=== PATIENT | male | born 1980 | race African-American/Black ===

== ENCOUNTER 2017-04-15 15:27 | Outpatient (CLI) | payer MEDICARE, OTHER ==
[~2017-04-15] VITALS: Ht 177.8 cm; Wt 97.1 kg
[2017-04-15] MEDS ORDERED: LIDOCAINE 1% / SOD BICARB 8.4% 20 ML VIAL. IJ ONE (15:52)
[2017-04-15] MEDS ORDERED: IOHEXOL 300 MG/ML 100ML VIAL. ONE (16:01)
[2017-04-15] MEDS ORDERED: RENAL VITE (16:04)
[2017-04-15] MEDS ORDERED: INSU100I13 SQ (16:04)
[2017-04-15] MEDS ORDERED: amlodipine (16:04)
[2017-04-15] MEDS ORDERED: calcitriol (16:04)
[2017-04-15] MEDS ORDERED: sensipar (16:04)
[2017-04-15] MEDS ORDERED: vitamin D (16:04)
[2017-04-15] MEDS ORDERED: ferrous sulfate (16:04)
[2017-04-15] MEDS ORDERED: renvela (16:04)
[2017-04-15] MEDS ORDERED: INSU100V31 SQ (16:04)
[2017-04-15] MEDS ORDERED: simvastatin (16:04)
[2017-04-15] MEDS ORDERED: lisinopril (16:04)
[2017-04-15] MEDS ORDERED: clonidine (16:04)
[2017-04-15] MEDS ORDERED: IOHEXOL 300 MG/ML 100ML VIAL. IJ ONE (16:15)
--- NOTE | 2017-04-15 16:35 | RAD ---
Wire manipulation of peritoneal dialysis catheter 04/15/2017 Indication: Nonfunctional catheter Discussion: The patient was brought to the fluoroscopy suite and placed in the supine position. A Timeout procedure was performed. Fluoroscopic evaluation demonstrates peritoneal dialysis catheter coiled in the pelvis. A stiff Glidewire was advanced through the catheter without difficulty. A small amount of the contrast and saline was instilled through the catheter which appear to flow freely from the catheter throughout the peritoneum without loculation. All wires were removed. Sterile dressing was applied. Fluoroscopy time 1.8 minutes Dose area product: 7 Gycm2 Impression: Grossly unremarkable fluoroscopic appearance of peritoneal dialysis catheter
== END 2017-04-15 16:20 | disposition home or self-care (01) ==
LOC: INTRAD 15:27
PROVIDERS: ATTEND Internal Medicine Nephrology
DX: T85.611A Breakdown (mechanical) of intraperitoneal dialysis catheter, initial encounter (principal); Y84.8 Other medical procedures as the cause of abnormal reaction of the patient, or of later complication, without mention of misadventure at the time of the procedure; E78.00 Pure hypercholesterolemia, unspecified; K21.9 Gastro-esophageal reflux disease without esophagitis; Z99.2 Dependence on renal dialysis; E11.22 Type 2 diabetes mellitus with diabetic chronic kidney disease; I12.9 Hypertensive chronic kidney disease with stage 1 through stage 4 chronic kidney disease, or unspecified chronic kidney disease; N18.9 Chronic kidney disease, unspecified; Z88.0 Allergy status to penicillin
CPT/HCPCS: 49400; 74190; C1769; Q9967

== ENCOUNTER → 2017-06-18 | Outpatient (CLI) | payer MEDICARE, OTHER ==
[~2017-06-18] MED LIST: INSU100I13 SQ; INSU100V31 SQ; RENAL VITE; amlodipine; calcitriol; clonidine; ferrous sulfate; lisinopril; renvela; sensipar; simvastatin; vitamin D
== END | disposition home or self-care (01) ==
LOC: LAB 13:15
PROVIDERS: ATTEND Internal Medicine Nephrology
DX: E87.5 Hyperkalemia (principal)
CPT/HCPCS: 36415; 84132

== ENCOUNTER 2017-07-02 07:08 | Outpatient (CLI) | payer MEDICARE ==
[~2017-07-02] VITALS: Ht 177.8 cm; Wt 94.3 kg
[2017-07-02 07:30] VITALS: BP 146/89
[2017-07-02] MEDS ORDERED: IOHEXOL 300 MG/ML 50 ML VIAL. ONE (08:28)
[2017-07-02] MEDS ORDERED: IOHEXOL 300 MG/ML 50 ML VIAL. INT CAT ONE (09:00)
[2017-07-02] MEDS ORDERED: CONTRAST GIVEN MC PRN (09:00)
--- NOTE | 2017-07-02 09:04 | PDOC ---
BRIEF OPERATIVE NOTE Pre-Op Diagnosis Non-functioning PD catheter Post-Op Diagnosis Functioning PD Catheter Procedure Performed PD catheter check and manipulation Surgeon Delano Findings PD Catheter well positioned in the pelvis. Long fibrin sheath aspirated resulting in resumption of excellent flow. Wire manipulation unremarkable. Complications No immediate MARLYN RODRIGUEZ MD Jul 02, 2017 09:04
[2017-07-02 09:25] VITALS: BP 140/93
--- NOTE | 2017-07-02 12:03 | RAD ---
Procedure: Fluoroscopic guided peritoneal dialysis catheter injection and manipulation Clinical Indication: 37-year-old male with poor flows from his 4-year-old peritoneal dialysis catheter. Sedation: None Antibiotics: None Exposure: Kerma-Area Product: 12 Gycm2 Contrast: 10 cc of Isovue-300 contrast media Sterility: All elements of maximal sterile barrier technique including the use of a cap, mask, sterile gown, sterile gloves, large sterile sheet, appropriate hand hygiene, and 2% chlorhexidine for cutaneous antisepsis (or acceptable alternative antiseptic per current guidelines) were followed for this procedure. Consent: The procedure was explained in its entirety to the patient or the patients designated inbound sales representative by a member of the treatment team, including a discussion of the risks, benefits and commonly accepted alternatives to the procedure, as well as the expected consequences of no therapy whatsoever. Discussion of the risks included, but was not limited to, those that are most frequent and those that are rare but possibly severe or life-threatening, as well as the possibility of unforeseen complications. Technique and Findings: Following informed consent, the patient was prepped and draped in usual sterile fashion. The peritoneal dialysis catheter was interrogated under fluoroscopy and found to be situated deep within the pelvis. The catheter was then accessed sterilely, and was found to allow free injection of saline. Aspiration was performed returning a long linear fibrin plug. Once this plug was removed, aspiration was brisk. Contrast was then injected under fluoroscopy and seen to flow freely within the peritoneum. Aspiration remained free. A Glidewire advantage was then advanced under fluoroscopic guidance through the peritoneal dialysis catheter into the peritoneum to attempt to deflect the tip, however this was not particularly successful. Nevertheless, following removal of the wire, aspiration flush remain brisk. Complications: No immediate Impression: 1. Fibrin plug limiting flow within the peritoneal dialysis catheter. This was successfully extracted resulting in buddhism of excellent flow. 2. Peritoneal dialysis catheter situated appropriately in the deep pelvis. Attempts to deflect the catheter were unsuccessful. Peritoneal dialysis catheter is suitable for use.
== END 2017-07-02 11:00 | disposition home or self-care (01) ==
LOC: INTRAD 07:08
PROVIDERS: ATTEND Internal Medicine Nephrology
DX: T85.611A Breakdown (mechanical) of intraperitoneal dialysis catheter, initial encounter (principal); Y84.8 Other medical procedures as the cause of abnormal reaction of the patient, or of later complication, without mention of misadventure at the time of the procedure; E78.00 Pure hypercholesterolemia, unspecified; I12.9 Hypertensive chronic kidney disease with stage 1 through stage 4 chronic kidney disease, or unspecified chronic kidney disease; E11.22 Type 2 diabetes mellitus with diabetic chronic kidney disease; N18.9 Chronic kidney disease, unspecified; Z88.0 Allergy status to penicillin
CPT/HCPCS: 49400; 74190; 82962; C1713; Q9967

== ENCOUNTER 2017-08-03 11:59 | Emergency (ER) | payer MEDICARE ==
[~2017-08-03] VITALS: Ht 177.8 cm; Wt 94.3 kg
[2017-08-03 12:51] VITALS: BP 110/68
[2017-08-03] MEDS ORDERED: HYDROcodone/APAP 5/325MG 1 TAB TABLET PO ONE (13:45)
[2017-08-03] MEDS ORDERED: HYDR-971 PO (14:00)
[2017-08-03] MEDS ORDERED: CLIN150C14 PO (14:00)
--- NOTE | 2017-08-03 14:01 | PHYS DOC ---
Past Medical History Past Medical History: Diabetes-Type II, Hypertension, Renal Failure Additional Past Medical Histor: HEMODIALYSIS SINCE 2013 Past Surgical History: No Surgical History Alcohol Use: None Drug Use: None Adult General Chief Complaint Chief Complaint: DENTAL PROBLEM HPI HPI Patient is a 37 year old male and sister presents today with a right gum dental pain and swelling that began 2 days ago. Patient denies any fever or trismus. Review of Systems Review of Systems Constitutional: Denies fever or chills [] HENT: Right gum dental pain and swelling Musculoskeletal: Denies back pain or joint pain [] Integument: Denies rash or skin lesions [] Neurologic: Denies headache, focal weakness or sensory changes [] Current Medications Current Medications Current Medications Medications (Trade) Dose Ordered Sig/Afua Start Time Stop Time Status Last Admin Dose Admin Acetaminophen/ Hydrocodone Bitart (Lortab 5/325) 2 tab 1X ONCE 08/03/17 13:45 08/03/17 13:46 DC Allergies Allergies Allergies Coded Allergies Type Severity Reaction Last Updated Verified Penicillins Allergy Mild Nausea 04/15/17 Yes Physical Exam Physical Exam Constitutional: Well developed, well nourished, no acute distress, non-toxic appearance. [] HENT: Normocephalic, atraumatic, bilateral external ears normal, oropharynx moist, no oral exudates, nose normal. [] Mild swelling noted on the right cheek consistent with a dental abscess. Scattered dental caries noted. Skin: Warm, dry, no erythema, no rash. [] Back: No tenderness, no CVA tenderness. [] Extremities: No tenderness, no cyanosis, no clubbing, ROM intact, no edema. [] Neurologic: Alert and oriented X 3, normal motor function, normal sensory function, no focal deficits noted. [] Psychologic: Affect normal, judgement normal, mood normal. [] Current Patient Data Vital Signs Vital Signs Date Time Temp Pulse Resp B/P (MAP) Pulse Ox O2 Delivery O2 Flow Rate FiO2 08/03/17 12:51 97.9 87 20 97 Room Air 97.9 EKG EKG [] Radiology/Procedures Radiology/Procedures [] Course & Med Decision Making Course & Med Decision Making Pertinent Labs and Imaging studies reviewed. (See chart for details) Patient has a dental abscess. Will be discharged with clindamycin for 10 days. Follow-up with a dentist in 1-2 weeks. Dragon Disclaimer Dragon Disclaimer This electronic medical record was generated, in whole or in part, using a voice recognition dictation system. Departure Departure Impression: Primary Impression: Dental abscess Disposition: 01 HOME, SELF-CARE Condition: STABLE Referrals: GINO BLANCO MD (PCP) follow up with a dentist in one week Patient Instructions: Dental Abscess Additional Instructions: You were seen for a dental abscess. Ensure you complete your antibiotics. Follow -up with her dentist in the next 1-2 weeks. Scripts Hydrocodone/Apap 5-325 (NORCO 5-325 TABLET) 1 Each Tablet 1 TAB PO Q6-8HRS Y for PAIN, #10 TAB Prov: LAZARUS REYES APRN 08/03/17 Clindamycin Hcl (CLINDAMYCIN HCL) 150 Mg Capsule 3 CAP PO TID, #90 CAP Prov: LAZARUS REYES APRN 08/03/17 LAZARUS REYES APRN Aug 03, 2017 14:01
== END 2017-08-03 14:13 | disposition home or self-care (01) ==
LOC: ER 11:59
DX: K04.7 Periapical abscess without sinus (principal); E11.9 Type 2 diabetes mellitus without complications; I12.0 Hypertensive chronic kidney disease with stage 5 chronic kidney disease or end stage renal disease; N18.6 End stage renal disease; Z99.2 Dependence on renal dialysis
CPT/HCPCS: 99283

== ENCOUNTER → 2017-10-11 | Outpatient (CLI) | payer MEDICARE ==
[~2017-10-11] MED LIST changes: -INSU100I13 SQ; -INSU100V31 SQ; +IOHEXOL 300 MG/ML 100ML VIAL.; -RENAL VITE; -amlodipine; -calcitriol; -clonidine; -ferrous sulfate; -lisinopril; -renvela; -sensipar; -simvastatin; -vitamin D
[2017-10-11] MEDS: IOHEXOL 300 MG/ML 100ML VIAL. INT CAT (11:08)
== END | disposition home or self-care (01) ==
LOC: INTRAD 10:03
DX: T85.611A Breakdown (mechanical) of intraperitoneal dialysis catheter, initial encounter (principal); Y83.8 Other surgical procedures as the cause of abnormal reaction of the patient, or of later complication, without mention of misadventure at the time of the procedure; Y92.9 Unspecified place or not applicable; Z88.0 Allergy status to penicillin; E78.00 Pure hypercholesterolemia, unspecified; I10 Essential (primary) hypertension; E11.9 Type 2 diabetes mellitus without complications; K21.9 Gastro-esophageal reflux disease without esophagitis
CPT/HCPCS: 49400; 74190; C1769; Q9967

== ENCOUNTER 2017-11-20 21:48 | Emergency (ER) | payer MEDICARE ==
[2017-11-20 22:53] LABS: ANION GAP 12 (6-14); BLOOD UREA NITROGEN 93 mg/dL (8-26); CALCIUM 7.4 mg/dL (8.5-10.1); CARBON DIOXIDE 25 mmol/L (21-32); CHLORIDE 100 mmol/L (98-107); CREATININE 14.6 mg/dL (0.7-1.3); GFR 4.6; GLUCOSE 293 mg/dL (70-99); POTASSIUM 5.5 mmol/L (3.5-5.1); SODIUM 137 mmol/L (136-145)
[2017-11-20 23:04] LABS: TROPONIN BY ISTAT 0.01 ng/ml (<0.08)
[2017-11-20] MEDS: SODIUM POLYSTYRENE SULFONATE 15 GM/60 ML ORAL.SUSP. PO ×2 (23:39)
== END 2017-11-20 23:58 | disposition home or self-care (01) ==
LOC: ER 23:58
DX: E87.5 Hyperkalemia (principal); I12.9 Hypertensive chronic kidney disease with stage 1 through stage 4 chronic kidney disease, or unspecified chronic kidney disease; E11.22 Type 2 diabetes mellitus with diabetic chronic kidney disease; N18.9 Chronic kidney disease, unspecified; Z99.2 Dependence on renal dialysis; Z88.0 Allergy status to penicillin
CPT/HCPCS: 36415; 71045; 80048; 84484; 93005; 99285-25

== ENCOUNTER 2018-01-10 04:59 | Inpatient (IN) | payer MEDICARE ==
[2018-01-10] MEDS: IV NORMAL SALINE 1000ML BAG 1,000 ML IV ×2 (05:45→15:27)
[2018-01-10] MEDS: MORPHINE SULFATE 4 MG/ML DISP.SYRIN. IV ×4 (05:45→15:29)
[2018-01-10 06:08] LABS: ADD MAN DIFF? YES; BASO # 0.1 x10^3/uL (0.0-0.2); BASO % 0 % (0-3); EOS # 0.3 x10^3/uL (0.0-0.7); EOS % 2 % (0-3); HEMATOCRIT 30.1 % (39.0-53.0); HEMOGLOBIN 9.7 g/dL (13.0-17.5); LYMPH # 1.5 x10^3/uL (1.0-4.8); LYMPH % 10 % (24-48); MEAN CORPUSCULAR HEMOGLOBIN 28 pg (25-35); MEAN CORPUSCULAR HGB CONC 32 g/dL (31-37); MEAN CORPUSCULAR VOLUME 87 fL (79-100); MONO # 0.6 x10^3/uL (0.0-1.1); MONO % 4 % (0-9); NEUT # 12.7 x10^3uL (1.8-7.7); NEUT % 83 % (31-73); PLATELET COUNT 320 x10^3/uL (140-400); RED BLOOD COUNT 3.48 x10^6/uL (4.30-5.70); RED CELL DISTRIBUTION WIDTH 15.6 % (11.5-14.5); WHITE BLOOD COUNT 15.2 x10^3/uL (4.0-11.0)
[2018-01-10 06:14] LABS: ANION GAP 14 (6-14); BLOOD UREA NITROGEN 85 mg/dL (8-26); BUN/CREATININE RATIO 5 (6-20); CALCIUM 9.3 mg/dL (8.5-10.1); CARBON DIOXIDE 30 mmol/L (21-32); CHLORIDE 99 mmol/L (98-107); CREATININE 17.5 mg/dL (0.7-1.3); GFR 3.8; GLUCOSE 68 mg/dL (70-99); POTASSIUM 4.3 mmol/L (3.5-5.1); SODIUM 143 mmol/L (136-145)
[2018-01-10] MEDS ORDERED: CONTRAST GIVEN MC (06:15)
[2018-01-10 06:22] LABS: ALBUMIN 3.8 g/dL (3.4-5.0); ALBUMIN/GLOBULIN RATIO 0.8 (1.0-1.7); ALK PHOS 225 U/L (46-116); ALT (SGPT) 34 U/L (16-63); AST (SGOT) 21 U/L (15-37); LIPASE 187 U/L (73-393); TOTAL BILIRUBIN 0.4 mg/dL (0.2-1.0); TOTAL PROTEIN 8.3 g/dL (6.4-8.2)
[2018-01-10] MEDS: IOHEXOL 300 MG/ML 100ML VIAL. IV (06:29)
[2018-01-10] MEDS: HALOPERIDOL LACTATE 5 MG/ML VIAL. IVP (06:30)
[2018-01-10] MEDS ORDERED: DIALYSIS PATIENT. MC (07:00)
[2018-01-10] MEDS ORDERED: ACETAMINOPHEN 325 MG TABLET. PO (07:00)
[2018-01-10] MEDS ORDERED: ONDANSETRON PF 4 MG/2 ML VIAL. IV ×2 (07:00→10:30)
[2018-01-10] MEDS: fentaNYL PF VIAL 100 MCG/2 ML VIAL IV (07:14)
[2018-01-10 08:06] LABS: POC GLUCOSE 64 mg/dL (70-99)
[2018-01-10 09:32] LABS: % EOS 2 % (0-5); % LYMPHS 8 % (24-48); % MONOS 4 % (0-10); % SEGS 86 % (35-66); PLT ESTIMATE ADEQUATE (ADEQUATE)
[2018-01-10 09:35] LABS: ANISOCYTOSIS SLIGHT
[2018-01-10 09:36] LABS: OVALOCYTES FEW; SCHISTOCYTES OCC; TARGET CELLS FEW
[2018-01-10] MEDS ORDERED: DEXTROSE 50% 25 GM / 50ML DISP.SYRIN. IV (10:15)
[2018-01-10] MEDS ORDERED: DOCUSATE SODIUM 100 MG CAPSULE. PO (10:30)
[2018-01-10] MEDS: CALCITRIOL 0.25 MCG CAPSULE. PO (10:30)
[2018-01-10] MEDS: LOSARTAN POTASSIUM 50 MG TABLET. PO (10:30)
[2018-01-10] MEDS: cloNIDine HCL 0.2 MG TABLET PO ×2 (10:30→23:48)
[2018-01-10] MEDS: FOLIC/VIT B COMP W-C (RENAL) TABLET. PO (10:30)
[2018-01-10] MEDS: FUROSEMIDE 80 MG TABLET. PO ×2 (10:30→14:00)
[2018-01-10] MEDS ORDERED: traMADol 50 MG TABLET PO (10:30)
[2018-01-10] MEDS: CINACALCET HCL 30 MG TABLET PO (10:30)
[2018-01-10] MEDS: INSULIN ASPART 300 UNITS/3 ML INSULN.PEN SQ ×3 (12:00→23:53)
[2018-01-10] MEDS: SEVELAMER CARBONATE 800 MG TABLET. PO ×2 (12:00→17:00)
[2018-01-10] MEDS: hydrALAZINE 20 MG/ML VIAL. IVP ×2 (12:37→20:27)
[2018-01-10] MEDS ORDERED: HEPARIN for IV BOLUS 10,000 UNIT/10 ML VIAL. (12:46)
[2018-01-10] MEDS ORDERED: LIDOCAINE WITH 8.4% SOD BICARB 3 ML DISP.SYRIN. (12:46)
[2018-01-10 12:51] LABS: POC GLUCOSE 86 mg/dL (70-99)
[2018-01-10] MEDS: LIDOCAINE WITH 8.4% SOD BICARB 3 ML DISP.SYRIN. INJ (13:25)
[2018-01-10] MEDS: HEPARIN PF for SUB-Q USE 5,000 UNIT/0.5 ML VIAL. SQ ×2 (14:00→20:36)
[2018-01-10 14:18] LABS: POC GLUCOSE 129 mg/dL (70-99)
[2018-01-10 17:03] LABS: POC GLUCOSE 148 mg/dL (70-99)
[2018-01-10 19:59] LABS: POC GLUCOSE 159 mg/dL (70-99)
[2018-01-10] MEDS: FAMOTIDINE 20 MG/2 ML VIAL IVP (20:26)
[2018-01-10] MEDS: DARBEPOETIN ALFA 60 MCG/0.3 ML DISP.SYRIN. SQ (20:29)
[2018-01-10] MEDS ORDERED: INSULIN GLARGINE HUM REC ANLOG 32 UNIT SQ (21:00)
[2018-01-10] MEDS: SIMVASTATIN 20 MG TABLET PO (21:00)
[2018-01-10] MEDS: LACTOBACILLUS RHAMNOSUS GG 1 CAPSULE. PO (21:00)
[2018-01-10 21:38] LABS: LACTIC ACID 1.1 mmol/L (0.4-2.0)
[2018-01-10 23:33] LABS: POC GLUCOSE 282 mg/dL (70-99)
[2018-01-11 01:03] LABS: POC GLUCOSE 319 mg/dL (70-99)
[2018-01-11] MEDS: INSULIN DETEMIR 300 UNITS/3 ML INSULN.PEN. SQ ×2 (02:42→20:47)
[2018-01-11] MEDS: INSULIN ASPART 300 UNITS/3 ML INSULN.PEN SQ ×4 (02:43→17:14)
[2018-01-11] MEDS: IV NORMAL SALINE 1000ML BAG 1,000 ML IV ×2 (04:11→06:00)
[2018-01-11 04:58] LABS: ADD MAN DIFF? NO
[2018-01-11 05:08] LABS: BASO # 0.1 x10^3/uL (0.0-0.2); BASO % 0 % (0-3); EOS # 0.3 x10^3/uL (0.0-0.7); EOS % 2 % (0-3); HEMOGLOBIN 9.6 g/dL (13.0-17.5); LYMPH # 1.2 x10^3/uL (1.0-4.8); LYMPH % 7 % (24-48); MEAN CORPUSCULAR HEMOGLOBIN 28 pg (25-35); MEAN CORPUSCULAR HGB CONC 32 g/dL (31-37); MEAN CORPUSCULAR VOLUME 88 fL (79-100); MONO # 1.2 x10^3/uL (0.0-1.1); MONO % 8 % (0-9); NEUT # 13.7 x10^3uL (1.8-7.7); NEUT % 83 % (31-73); PLATELET COUNT 312 x10^3/uL (140-400); RED BLOOD COUNT 3.42 x10^6/uL (4.30-5.70); RED CELL DISTRIBUTION WIDTH 15.7 % (11.5-14.5); WHITE BLOOD COUNT 16.6 x10^3/uL (4.0-11.0)
[2018-01-11 05:29] LABS: ANION GAP 13 (6-14); BLOOD UREA NITROGEN 85 mg/dL (8-26); CALCIUM 9.7 mg/dL (8.5-10.1); CARBON DIOXIDE 27 mmol/L (21-32); CHLORIDE 102 mmol/L (98-107); CREATININE 17.6 mg/dL (0.7-1.3); GFR 3.7; GLUCOSE 164 mg/dL (70-99); SODIUM 142 mmol/L (136-145)
[2018-01-11] MEDS: HEPARIN PF for SUB-Q USE 5,000 UNIT/0.5 ML VIAL. SQ ×3 (05:47→22:42)
[2018-01-11 05:50] LABS: POTASSIUM 6.3 mmol/L (3.5-5.1)
[2018-01-11 07:35] LABS: POC GLUCOSE 164 mg/dL (70-99)
[2018-01-11] MEDS: PIPERACILLIN/TAZOBACTAM 2.25 GM in IV NORMAL SALINE 100ML 100 ML IV ×3 (08:00→22:36)
[2018-01-11] MEDS ORDERED: PIP/TAZO PER PHARMACY MC (08:00)
[2018-01-11] MEDS: PIPERACILLIN/TAZOBACTAM 2.25 GM in IV NORMAL SALINE 50ML 50 ML IV (08:00)
[2018-01-11] MEDS: SEVELAMER CARBONATE 800 MG TABLET. PO ×3 (08:00→17:09)
[2018-01-11] MEDS: DEXTROSE 50% 25 GM / 50ML DISP.SYRIN. IV (08:22)
[2018-01-11] MEDS: SODIUM BICARB ADULT 8.4% 50 MEQ/50 ML DISP.SYRIN. IV (08:22)
[2018-01-11] MEDS: LACTOBACILLUS RHAMNOSUS GG 1 CAPSULE. PO ×2 (09:00→22:40)
[2018-01-11] MEDS: cloNIDine HCL 0.2 MG TABLET PO ×2 (09:00→20:43)
[2018-01-11] MEDS ORDERED: cefTRIAXone IV Push 1 GM VIAL. IVP (09:00)
[2018-01-11] MEDS: FUROSEMIDE 80 MG TABLET. PO ×2 (09:00→14:16)
[2018-01-11] MEDS: LOSARTAN POTASSIUM 50 MG TABLET. PO (09:00)
[2018-01-11] MEDS: CINACALCET HCL 30 MG TABLET PO (09:00)
[2018-01-11] MEDS: FOLIC/VIT B COMP W-C (RENAL) TABLET. PO (09:00)
[2018-01-11] MEDS: CALCITRIOL 0.25 MCG CAPSULE. PO (09:00)
[2018-01-11] MEDS: INSULIN REGULAR 100 UNIT/ML 10ML VIAL. IV (09:15)
[2018-01-11] MEDS ORDERED: PIPERACILLIN/TAZOBACTAM 3.375 GM in IV NORMAL SALINE 50ML 50 ML IV (12:00)
[2018-01-11] MEDS: ACETAMINOPHEN 325 MG TABLET. PO (14:17)
[2018-01-11] MEDS: amLODIPine BESYLATE 10 MG TABLET PO (14:21)
[2018-01-11 16:32] LABS: POC GLUCOSE 277 mg/dL (70-99)
[2018-01-11] MEDS: VANCOMYCIN 2 GM in IV DEXTROSE 5 %-0.45 % NACL 500 ML IV (17:09)
[2018-01-11 19:54] LABS: BF CLARITY CLOUDY; BF COLOR RED; BF MON % 21 %; BF RBC COUNT 26742 /cmm; BF SOURCE PERIT DIALYSATE; BF WBC COUNT 1070 /cmm
[2018-01-11 19:56] LABS: BF PMN % 78 %
[2018-01-11 19:57] LABS: BF OTHER % 1 %
[2018-01-11] MEDS: VANCOMYCIN PER PHARMACY MC (20:20)
[2018-01-11 20:40] LABS: POC GLUCOSE 229 mg/dL (70-99)
[2018-01-11] MEDS ORDERED: INSULIN DETEMIR 300 UNITS/3 ML INSULN.PEN. SQ (21:00)
[2018-01-11] MEDS: SIMVASTATIN 20 MG TABLET PO (22:39)
[2018-01-12] MEDS: PIPERACILLIN/TAZOBACTAM 2.25 GM in IV NORMAL SALINE 100ML 100 ML IV ×3 (05:17→21:48)
[2018-01-12] MEDS: HEPARIN PF for SUB-Q USE 5,000 UNIT/0.5 ML VIAL. SQ ×3 (05:25→21:48)
[2018-01-12 07:41] LABS: POC GLUCOSE 121 mg/dL (70-99)
[2018-01-12] MEDS: INSULIN ASPART 300 UNITS/3 ML INSULN.PEN SQ ×6 (08:00→22:34)
[2018-01-12] MEDS: SEVELAMER CARBONATE 800 MG TABLET. PO ×3 (08:01→17:20)
[2018-01-12] MEDS: CALCITRIOL 0.25 MCG CAPSULE. PO (08:01)
[2018-01-12] MEDS: LOSARTAN POTASSIUM 50 MG TABLET. PO (08:01)
[2018-01-12] MEDS: LACTOBACILLUS RHAMNOSUS GG 1 CAPSULE. PO ×2 (08:02→21:34)
[2018-01-12] MEDS: cloNIDine HCL 0.2 MG TABLET PO ×2 (08:02→21:34)
[2018-01-12] MEDS: CINACALCET HCL 30 MG TABLET PO (08:02)
[2018-01-12] MEDS: amLODIPine BESYLATE 10 MG TABLET PO (08:03)
[2018-01-12] MEDS: FOLIC/VIT B COMP W-C (RENAL) TABLET. PO (08:03)
[2018-01-12] MEDS: FUROSEMIDE 80 MG TABLET. PO ×2 (08:03→14:00)
[2018-01-12 08:44] LABS: ADD MAN DIFF? NO
[2018-01-12 08:46] LABS: BASO # 0.1 x10^3/uL (0.0-0.2); BASO % 1 % (0-3); EOS # 0.7 x10^3/uL (0.0-0.7); EOS % 6 % (0-3); HEMOGLOBIN 8.9 g/dL (13.0-17.5); LYMPH # 1.3 x10^3/uL (1.0-4.8); LYMPH % 12 % (24-48); MEAN CORPUSCULAR HEMOGLOBIN 28 pg (25-35); MEAN CORPUSCULAR HGB CONC 32 g/dL (31-37); MEAN CORPUSCULAR VOLUME 88 fL (79-100); MONO % 9 % (0-9); NEUT # 8.1 x10^3uL (1.8-7.7); NEUT % 72 % (31-73); PLATELET COUNT 269 x10^3/uL (140-400); RED BLOOD COUNT 3.18 x10^6/uL (4.30-5.70); RED CELL DISTRIBUTION WIDTH 15.1 % (11.5-14.5); WHITE BLOOD COUNT 11.2 x10^3/uL (4.0-11.0)
[2018-01-12 08:56] LABS: ANION GAP 8 (6-14); BLOOD UREA NITROGEN 46 mg/dL (8-26); CALCIUM 9.7 mg/dL (8.5-10.1); CARBON DIOXIDE 30 mmol/L (21-32); CHLORIDE 104 mmol/L (98-107); CREATININE 12.1 mg/dL (0.7-1.3); GFR 5.8; GLUCOSE 220 mg/dL (70-99); POTASSIUM 5.7 mmol/L (3.5-5.1); SODIUM 142 mmol/L (136-145)
[2018-01-12] MEDS ORDERED: MAGNESIUM SULFATE 2GM 50 ML IV (09:15)
[2018-01-12] MEDS ORDERED: IV NORMAL SALINE 1000ML BAG 1,000 ML IV ×2 (10:35)
[2018-01-12] MEDS ORDERED: diphenhydrAMINE 50 MG/ML VIAL IV ×2 (10:45)
[2018-01-12] MEDS ORDERED: LABETALOL 20 MG/4 ML DISP.SYRIN. IVP (10:45)
[2018-01-12] MEDS ORDERED: ACETAMINOPHEN 500 MG TABLET PO (10:45)
[2018-01-12] MEDS ORDERED: DIALYSIS PATIENT. MC (10:45)
[2018-01-12] MEDS ORDERED: cloNIDine HCL 0.1 MG TABLET PO (10:45)
[2018-01-12] MEDS ORDERED: ALBUMIN HUMAN 25% 200 ML IV (10:45)
[2018-01-12 11:21] LABS: POC GLUCOSE 243 mg/dL (70-99)
[2018-01-12] MEDS: VANCOMYCIN PER PHARMACY MC (16:22)
[2018-01-12] MEDS: ACETAMINOPHEN 325 MG TABLET. PO (16:55)
[2018-01-12 17:05] LABS: POC GLUCOSE 119 mg/dL (70-99)
[2018-01-12] MEDS ORDERED: DARBEPOETIN ALFA 60 MCG/0.3 ML DISP.SYRIN. SQ (21:00)
[2018-01-12 21:04] LABS: POC GLUCOSE 332 mg/dL (70-99)
[2018-01-12] MEDS: SIMVASTATIN 20 MG TABLET PO (21:33)
[2018-01-12] MEDS: INSULIN DETEMIR 300 UNITS/3 ML INSULN.PEN. SQ (21:48)
[2018-01-13 05:20] LABS: ADD MAN DIFF? NO
[2018-01-13 05:33] LABS: BASO % 0 % (0-3); EOS # 0.6 x10^3/uL (0.0-0.7); EOS % 7 % (0-3); HEMATOCRIT 23.3 % (39.0-53.0); HEMOGLOBIN 7.7 g/dL (13.0-17.5); LYMPH % 13 % (24-48); MEAN CORPUSCULAR HEMOGLOBIN 29 pg (25-35); MEAN CORPUSCULAR HGB CONC 33 g/dL (31-37); MEAN CORPUSCULAR VOLUME 88 fL (79-100); MONO # 0.7 x10^3/uL (0.0-1.1); MONO % 9 % (0-9); NEUT # 5.7 x10^3uL (1.8-7.7); NEUT % 71 % (31-73); PLATELET COUNT 233 x10^3/uL (140-400); RED BLOOD COUNT 2.66 x10^6/uL (4.30-5.70)
[2018-01-13] MEDS: VANCOMYCIN RANDOM LEVEL. MC (06:00)
[2018-01-13 06:03] LABS: ALBUMIN 2.7 g/dL (3.4-5.0); ANION GAP 8 (6-14); BLOOD UREA NITROGEN 26 mg/dL (8-26); CARBON DIOXIDE 29 mmol/L (21-32); CHLORIDE 98 mmol/L (98-107); CREATININE 8.2 mg/dL (0.7-1.3); GLUCOSE 366 mg/dL (70-99); PHOSPHORUS 4.8 mg/dL (2.6-4.7); POTASSIUM 4.6 mmol/L (3.5-5.1); SODIUM 135 mmol/L (136-145)
[2018-01-13] MEDS: PIPERACILLIN/TAZOBACTAM 2.25 GM in IV NORMAL SALINE 100ML 100 ML IV (06:21)
[2018-01-13] MEDS: HEPARIN PF for SUB-Q USE 5,000 UNIT/0.5 ML VIAL. SQ ×3 (06:27→22:00)
[2018-01-13 07:53] LABS: POC GLUCOSE 318 mg/dL (70-99)
[2018-01-13] MEDS: CALCITRIOL 0.25 MCG CAPSULE. PO (09:01)
[2018-01-13] MEDS: amLODIPine BESYLATE 10 MG TABLET PO (09:02)
[2018-01-13] MEDS: FUROSEMIDE 80 MG TABLET. PO ×2 (09:02→15:58)
[2018-01-13] MEDS: FOLIC/VIT B COMP W-C (RENAL) TABLET. PO (09:02)
[2018-01-13] MEDS: SEVELAMER CARBONATE 800 MG TABLET. PO ×3 (09:02→17:17)
[2018-01-13] MEDS: LOSARTAN POTASSIUM 50 MG TABLET. PO (09:02)
[2018-01-13] MEDS: LACTOBACILLUS RHAMNOSUS GG 1 CAPSULE. PO ×2 (09:03→21:05)
[2018-01-13] MEDS: CINACALCET HCL 30 MG TABLET PO (09:03)
[2018-01-13] MEDS: cloNIDine HCL 0.2 MG TABLET PO ×2 (09:10→21:06)
[2018-01-13] MEDS: INSULIN ASPART 300 UNITS/3 ML INSULN.PEN SQ ×6 (10:50→17:22)
[2018-01-13 11:47] LABS: POC GLUCOSE 366 mg/dL (70-99)
[2018-01-13] MEDS: PANTOPRAZOLE 40 MG TABLET.DR. PO (12:01)
[2018-01-13] MEDS: VANCOMYCIN PER PHARMACY MC (14:36)
[2018-01-13 15:03] LABS: POC GLUCOSE 163 mg/dL (70-99)
[2018-01-13] MEDS: PIPERACILLIN/TAZOBACTAM 2.25 GM in IV NORMAL SALINE 50ML 50 ML IV ×2 (15:59→21:56)
[2018-01-13 20:23] LABS: POC GLUCOSE 343 mg/dL (70-99)
[2018-01-13] MEDS: SIMVASTATIN 20 MG TABLET PO (21:06)
[2018-01-13] MEDS: INSULIN DETEMIR 300 UNITS/3 ML INSULN.PEN. SQ (21:14)
[2018-01-14 05:28] LABS: ALBUMIN 2.7 g/dL (3.4-5.0); ANION GAP 9 (6-14); BLOOD UREA NITROGEN 37 mg/dL (8-26); CALCIUM 8.8 mg/dL (8.5-10.1); CARBON DIOXIDE 27 mmol/L (21-32); CHLORIDE 101 mmol/L (98-107); CREATININE 10.7 mg/dL (0.7-1.3); GFR 6.6; GLUCOSE 236 mg/dL (70-99); MAGNESIUM 2.3 mg/dL (1.8-2.4); PHOSPHORUS 5.8 mg/dL (2.6-4.7); POTASSIUM 4.9 mmol/L (3.5-5.1); SODIUM 137 mmol/L (136-145)
[2018-01-14] MEDS: PIPERACILLIN/TAZOBACTAM 2.25 GM in IV NORMAL SALINE 50ML 50 ML IV ×3 (06:03→22:00)
[2018-01-14] MEDS: HEPARIN PF for SUB-Q USE 5,000 UNIT/0.5 ML VIAL. SQ ×3 (06:09→21:39)
[2018-01-14] MEDS: INSULIN ASPART 300 UNITS/3 ML INSULN.PEN SQ ×7 (08:00→22:02)
[2018-01-14] MEDS: LACTOBACILLUS RHAMNOSUS GG 1 CAPSULE. PO ×2 (09:00→16:01)
[2018-01-14] MEDS: cloNIDine HCL 0.2 MG TABLET PO ×2 (09:00→16:02)
[2018-01-14] MEDS: FUROSEMIDE 80 MG TABLET. PO ×2 (09:00→16:08)
[2018-01-14] MEDS: SEVELAMER CARBONATE 800 MG TABLET. PO ×4 (09:18→21:52)
[2018-01-14] MEDS: PANTOPRAZOLE 40 MG TABLET.DR. PO (09:29)
[2018-01-14] MEDS: LOSARTAN POTASSIUM 50 MG TABLET. PO (09:30)
[2018-01-14] MEDS: FOLIC/VIT B COMP W-C (RENAL) TABLET. PO (09:30)
[2018-01-14] MEDS: CALCITRIOL 0.25 MCG CAPSULE. PO (09:31)
[2018-01-14] MEDS: amLODIPine BESYLATE 10 MG TABLET PO (09:31)
[2018-01-14] MEDS: CINACALCET HCL 30 MG TABLET PO (09:34)
[2018-01-14] MEDS: POLYETHYLENE GLYCOL 3350 17 GM PACKET. PO (10:23)
[2018-01-14] MEDS: ACETAMINOPHEN 325 MG TABLET. PO (10:23)
[2018-01-14] MEDS ORDERED: DIALYSIS PATIENT. MC ×2 (10:45)
[2018-01-14] MEDS ORDERED: ALBUMIN HUMAN 25% 200 ML IV (11:00)
[2018-01-14] MEDS ORDERED: IV NORMAL SALINE 1000ML BAG 1,000 ML IV ×2 (11:00)
[2018-01-14 12:17] LABS: POC GLUCOSE 153 mg/dL (70-99)
[2018-01-14] MEDS: VANCOMYCIN PER PHARMACY MC (14:02)
[2018-01-14 20:46] LABS: POC GLUCOSE 441 mg/dL (70-99)
[2018-01-14] MEDS: SIMVASTATIN 20 MG TABLET PO (21:52)
[2018-01-14] MEDS: INSULIN DETEMIR 300 UNITS/3 ML INSULN.PEN. SQ (22:02)
[2018-01-15 03:55] LABS: ALBUMIN 2.7 g/dL (3.4-5.0); ANION GAP 7 (6-14); BLOOD UREA NITROGEN 31 mg/dL (8-26); CALCIUM 8.3 mg/dL (8.5-10.1); CARBON DIOXIDE 32 mmol/L (21-32); CHLORIDE 100 mmol/L (98-107); CREATININE 8.4 mg/dL (0.7-1.3); GFR 8.8; GLUCOSE 312 mg/dL (70-99); MAGNESIUM 2.2 mg/dL (1.8-2.4); PHOSPHORUS 4.9 mg/dL (2.6-4.7); POTASSIUM 4.7 mmol/L (3.5-5.1); SODIUM 139 mmol/L (136-145)
[2018-01-15] MEDS: PIPERACILLIN/TAZOBACTAM 2.25 GM in IV NORMAL SALINE 50ML 50 ML IV (06:30)
[2018-01-15] MEDS: PANTOPRAZOLE 40 MG TABLET.DR. PO (06:30)
[2018-01-15] MEDS: HEPARIN PF for SUB-Q USE 5,000 UNIT/0.5 ML VIAL. SQ ×3 (06:37→22:00)
[2018-01-15 08:20] LABS: POC GLUCOSE 148 mg/dL (70-99)
[2018-01-15] MEDS: CINACALCET HCL 30 MG TABLET PO (08:25)
[2018-01-15] MEDS: FUROSEMIDE 80 MG TABLET. PO ×2 (08:25→12:21)
[2018-01-15] MEDS: CALCITRIOL 0.25 MCG CAPSULE. PO (08:25)
[2018-01-15] MEDS: LOSARTAN POTASSIUM 50 MG TABLET. PO (08:29)
[2018-01-15] MEDS: LACTOBACILLUS RHAMNOSUS GG 1 CAPSULE. PO ×2 (08:32→21:41)
[2018-01-15] MEDS: SEVELAMER CARBONATE 800 MG TABLET. PO ×4 (08:32→22:26)
[2018-01-15] MEDS: amLODIPine BESYLATE 10 MG TABLET PO (08:33)
[2018-01-15] MEDS: cloNIDine HCL 0.2 MG TABLET PO ×2 (08:33→21:41)
[2018-01-15] MEDS: FOLIC/VIT B COMP W-C (RENAL) TABLET. PO (08:34)
[2018-01-15] MEDS: INSULIN ASPART 300 UNITS/3 ML INSULN.PEN SQ ×7 (08:41→22:36)
[2018-01-15] MEDS: POLYETHYLENE GLYCOL 3350 17 GM PACKET. PO (08:42)
[2018-01-15 11:56] LABS: POC GLUCOSE 106 mg/dL (70-99)
[2018-01-15 17:25] LABS: POC GLUCOSE 98 mg/dL (70-99)
[2018-01-15 21:15] LABS: POC GLUCOSE 168 mg/dL (70-99)
[2018-01-15] MEDS: CEFPODOXIME PROXETIL 100 MG TABLET. PO (21:41)
[2018-01-15] MEDS: SIMVASTATIN 20 MG TABLET PO (21:41)
[2018-01-15] MEDS: ACETAMINOPHEN 325 MG TABLET. PO (21:41)
[2018-01-15] MEDS: INSULIN DETEMIR 300 UNITS/3 ML INSULN.PEN. SQ (22:29)
[2018-01-16 04:51] LABS: ALBUMIN 2.7 g/dL (3.4-5.0); ANION GAP 10 (6-14); BLOOD UREA NITROGEN 42 mg/dL (8-26); CALCIUM 8.7 mg/dL (8.5-10.1); CARBON DIOXIDE 28 mmol/L (21-32); CHLORIDE 99 mmol/L (98-107); CREATININE 10.6 mg/dL (0.7-1.3); GFR 6.7; GLUCOSE 227 mg/dL (70-99); MAGNESIUM 2.1 mg/dL (1.8-2.4); POTASSIUM 4.1 mmol/L (3.5-5.1); SODIUM 137 mmol/L (136-145)
[2018-01-16] MEDS: HEPARIN PF for SUB-Q USE 5,000 UNIT/0.5 ML VIAL. SQ ×4 (06:00→20:30)
[2018-01-16 06:40] LABS: POC GLUCOSE 192 mg/dL (70-99)
[2018-01-16] MEDS: INSULIN ASPART 300 UNITS/3 ML INSULN.PEN SQ ×7 (08:00→20:45)
[2018-01-16] MEDS: SEVELAMER CARBONATE 800 MG TABLET. PO ×3 (08:00→17:07)
[2018-01-16] MEDS: POLYETHYLENE GLYCOL 3350 17 GM PACKET. PO (09:00)
[2018-01-16] MEDS: FUROSEMIDE 80 MG TABLET. PO ×2 (09:00→16:59)
[2018-01-16] MEDS: BARIUM SULFATE 60% 355 ML SUSP PO (12:00)
[2018-01-16] MEDS: PANTOPRAZOLE 40 MG TABLET.DR. PO (16:55)
[2018-01-16] MEDS: cloNIDine HCL 0.2 MG TABLET PO ×2 (16:56→20:32)
[2018-01-16] MEDS: FOLIC/VIT B COMP W-C (RENAL) TABLET. PO (16:57)
[2018-01-16] MEDS: amLODIPine BESYLATE 10 MG TABLET PO (16:57)
[2018-01-16] MEDS: CINACALCET HCL 30 MG TABLET PO (16:59)
[2018-01-16] MEDS: CALCITRIOL 0.25 MCG CAPSULE. PO (16:59)
[2018-01-16] MEDS: LOSARTAN POTASSIUM 50 MG TABLET. PO (16:59)
[2018-01-16] MEDS: LACTOBACILLUS RHAMNOSUS GG 1 CAPSULE. PO ×2 (17:00→20:32)
[2018-01-16] MEDS: CEFPODOXIME PROXETIL 100 MG TABLET. PO ×2 (17:01→20:32)
[2018-01-16 17:07] LABS: POC GLUCOSE 308 mg/dL (70-99)
[2018-01-16 17:07] LABS: POC GLUCOSE 276 mg/dL (70-99)
[2018-01-16] MEDS: SIMVASTATIN 20 MG TABLET PO (20:30)
[2018-01-16] MEDS: INSULIN DETEMIR 300 UNITS/3 ML INSULN.PEN. SQ (20:39)
[2018-01-16 21:06] LABS: POC GLUCOSE 350 mg/dL (70-99)
[2018-01-17 04:28] LABS: ALBUMIN 2.9 g/dL (3.4-5.0); ANION GAP 12 (6-14); BLOOD UREA NITROGEN 46 mg/dL (8-26); CALCIUM 8.6 mg/dL (8.5-10.1); CARBON DIOXIDE 27 mmol/L (21-32); CHLORIDE 101 mmol/L (98-107); CREATININE 11.8 mg/dL (0.7-1.3); GFR 5.9; GLUCOSE 107 mg/dL (70-99); MAGNESIUM 2.3 mg/dL (1.8-2.4); PHOSPHORUS 5.3 mg/dL (2.6-4.7); POTASSIUM 4.2 mmol/L (3.5-5.1); SODIUM 140 mmol/L (136-145)
[2018-01-17 07:47] LABS: POC GLUCOSE 91 mg/dL (70-99)
[2018-01-17] MEDS: INSULIN ASPART 300 UNITS/3 ML INSULN.PEN SQ ×5 (08:19→12:04)
[2018-01-17] MEDS: LACTOBACILLUS RHAMNOSUS GG 1 CAPSULE. PO (09:26)
[2018-01-17] MEDS: PANTOPRAZOLE 40 MG TABLET.DR. PO (09:26)
[2018-01-17] MEDS: CEFPODOXIME PROXETIL 100 MG TABLET. PO (09:26)
[2018-01-17] MEDS: FOLIC/VIT B COMP W-C (RENAL) TABLET. PO (09:27)
[2018-01-17] MEDS: CINACALCET HCL 30 MG TABLET PO (09:27)
[2018-01-17] MEDS: CALCITRIOL 0.25 MCG CAPSULE. PO (09:27)
[2018-01-17] MEDS: SEVELAMER CARBONATE 800 MG TABLET. PO ×2 (09:27→11:57)
[2018-01-17] MEDS: cloNIDine HCL 0.2 MG TABLET PO (09:27)
[2018-01-17] MEDS: amLODIPine BESYLATE 10 MG TABLET PO (09:27)
[2018-01-17] MEDS: FUROSEMIDE 80 MG TABLET. PO (09:27)
[2018-01-17] MEDS: LOSARTAN POTASSIUM 50 MG TABLET. PO (09:29)
[2018-01-17] MEDS: POLYETHYLENE GLYCOL 3350 17 GM PACKET. PO (09:33)
[2018-01-17] MEDS: HEPARIN SODIUM 10,000 UNIT/10 ML VIAL. IRR (09:35)
[2018-01-17 11:21] LABS: POC GLUCOSE 125 mg/dL (70-99)
== END 2018-01-17 14:00 | disposition home or self-care (01) | DRG 871 ==
LOC: ER 04:59 → 4 NORTH 06:50
PROC: 02H633Z Insertion of Infusion Device into Right Atrium, Percutaneous Approach (ICD-10-PCS; principal; 2018-01-10)
PROC: B21 Imaging, Heart, Fluoroscopy (ICD-10-PCS; 2018-01-10)
PROC: 5A1D70Z Performance of Urinary Filtration, Intermittent, Less than 6 Hours Per Day (ICD-10-PCS; 2018-01-12)
PROC: 5A1D70Z Performance of Urinary Filtration, Intermittent, Less than 6 Hours Per Day (ICD-10-PCS; 2018-01-14)
DX: A41.9 Sepsis, unspecified organism (principal); K65.2 Spontaneous bacterial peritonitis; K56.609 Unspecified intestinal obstruction, unspecified as to partial versus complete obstruction; E11.22 Type 2 diabetes mellitus with diabetic chronic kidney disease; I12.0 Hypertensive chronic kidney disease with stage 5 chronic kidney disease or end stage renal disease; E87.5 Hyperkalemia; R13.10 Dysphagia, unspecified; N18.6 End stage renal disease; E11.65 Type 2 diabetes mellitus with hyperglycemia; E66.9 Obesity, unspecified; E78.5 Hyperlipidemia, unspecified; G47.33 Obstructive sleep apnea (adult) (pediatric); E21.3 Hyperparathyroidism, unspecified; K21.0 Gastro-esophageal reflux disease with esophagitis; K66.0 Peritoneal adhesions (postprocedural) (postinfection); Z79.4 Long term (current) use of insulin; Z87.11 Personal history of peptic ulcer disease; Z88.0 Allergy status to penicillin; Z99.2 Dependence on renal dialysis
CPT/HCPCS: 36415; 36556; 74177; 74250; 76937; 77001; 80048; 80053; 80069; 80202; 82962; 83605; 83690; 83735; 85007; 85025; 87071; 87075; 87186; 87205; 89050; 93005; 96374; 96375; 99291; 99291-25; C1892; J0360; J0690; J0881; J1630; J1815; J2060; J2270; J2543; J3010; J3370; J3490; J7030; J7042; Q9967; S0028

== ENCOUNTER 2018-11-24 12:20 | Outpatient (CLI) | payer MEDICARE ==
[~2018-11-24] VITALS: Ht 177.8 cm; Wt 95.3 kg
[~2018-11-24 12:20] MED LIST changes: +AMLO10TA8 PO; +CALC0.25 PO; +CEFP200T PO; +CHOL500045 PO; +CINA60TA PO; +CLIN150C14 PO; +CLON0.2T PO; +FURO80TA3 PO; +HYDR-3164 PO; +INSU100I13 SQ; +INSU100V31 SQ; -IOHEXOL 300 MG/ML 100ML VIAL.; +LISI-130 PO; +LOSA100T14 PO; +RENAL VITE; +SEVE800T9 PO; +SIMV20TA3 PO; +VIT1TABL71 PO; +amlodipine; +calcitriol; +clonidine; +ferrous sulfate; +lisinopril; +renvela; +sensipar; +simvastatin; +vitamin D
[2018-11-24] MEDS ORDERED: IOHEXOL 300 MG/ML 100ML VIAL. ONE (12:33)
[2018-11-24 12:38] VITALS: BP 176/101
[2018-11-24] MEDS ORDERED: CARV25TA2 PO (12:42)
[2018-11-24] MEDS ORDERED: POLY17PO29 PO (12:49)
[2018-11-24] MEDS ORDERED: DOCU-109 PO (12:49)
[2018-11-24] MEDS ORDERED: SENN-80 PO (12:49)
[2018-11-24] MEDS ORDERED: IOHEXOL 300 MG/ML 100ML VIAL. IART ONE (13:00)
[2018-11-24] MEDS ORDERED: CONTRAST GIVEN. MC PRN (13:15)
--- NOTE | 2018-11-24 14:00 | NUR ---
Discharge Note: KATRIN STEVENS Discharge instructions and discharge home medications reviewed with patient including follow up and s/s requiring further attention and a copy given. All questions have been answered and understanding verbalized. The following instructions and handouts were given: peritoneal dialysis Patient discharged to home with spouse.
--- NOTE | 2018-11-25 13:53 | RAD ---
Fluoroscopic evaluation of peritoneal dialysis catheter. 11/24/2018. Indication: Catheter slow to drain. Occasional fibrotic material noted with aspiration. Discussion: The risks and benefits of the procedure were discussed the patient. Informed consent was obtained. A timeout procedure was performed. The anterior cervical draped using sterile barrier technique. Fluoroscopic evaluation demonstrates expected position of the pre-existing peritoneal dialysis catheter with the tip coiled in the pelvis. The catheter was found to flush normally. Contrast was administered which freely distributed throughout the pelvic peritoneum without gross loculation. However, guidewire could not be advanced through the distal end of the catheter. The distal end of the catheter appears to be occluded. The catheter would not uncoil the despite advancement multiple stiff type guidewires. Findings raise concern for possible intrapelvic adhesions. Despite multiple attempts, the distal catheter could not be mobilized. Aspiration remains sluggish. Fluoroscopy time: 9.4 MIN Dose area product: 81 Gycm2 Impression: Sluggish aspiration with inability to mobilize the distal end of the catheter. Findings raise concern for possible intrapelvic adhesions.
== END 2018-11-24 14:00 | disposition home or self-care (01) ==
LOC: INTRAD 12:20
PROVIDERS: ATTEND Internal Medicine Nephrology
DX: T85.611A Breakdown (mechanical) of intraperitoneal dialysis catheter, initial encounter (principal); Z88.0 Allergy status to penicillin; Y83.8 Other surgical procedures as the cause of abnormal reaction of the patient, or of later complication, without mention of misadventure at the time of the procedure; Y92.89 Other specified places as the place of occurrence of the external cause
CPT/HCPCS: 49400; 74190; C1713; C1769; Q9967

== ENCOUNTER 2018-11-29 17:17 | Inpatient (IN) | payer MEDICARE ==
[~2018-11-29] VITALS: Ht 177.8 cm; Wt 89.6 kg
[~2018-11-29 17:17] MED LIST changes: +CARV25TA2 PO; +DOCU-109 PO; +POLY17PO29 PO; +SENN-80 PO
[2018-11-29] MEDS ORDERED: PIPERACILLIN/TAZOBACTAM 3.375 GM in IV NORMAL SALINE 50ML 50 ML IV ONE (18:15)
[2018-11-29] MEDS ORDERED: VANCOMYCIN PER PHARMACY MC ONE (18:15)
[2018-11-29] MEDS ORDERED: ONDANSETRON PF 4 MG/2 ML VIAL. IV ONE (18:15)
--- NOTE | 2018-11-29 18:27 | PHYS DOC ---
Past Medical History Past Medical History: Diabetes-Type II, Hypertension Additional Past Medical Histor: HEMODIALYSIS SINCE 2012; Peritoneal dialysis Past Surgical History: Other Additional Past Surgical Histo: CARPAL TUNNEL Alcohol Use: None Drug Use: None Adult General Chief Complaint Chief Complaint: FEVER HPI HPI Patient is a 38 year old male with a history of hypertension, diabetes type 2, end-stage renal disease on hemodialysis Saturday, Saturday, Saturday, last dialyzed yesterday, who presents to the ED today to be evaluated for fever, nausea and vomiting. Symptoms began this morning. Patient denies any coughing or congestion. Patient states he used to get peritoneal dialysis but a couple days ago they switched him to hemodialysis because his peritoneal dialysis was not working. He had a dialysis catheter placed 11/26/2018. Patient denies any chest pain. He states he was admitted at [facility] sometime last week for nausea and vomiting and discharged early this week. Review of Systems Review of Systems Constitutional: Reports fever Eyes: Denies change in visual acuity, redness, or eye pain [] HENT: Denies nasal congestion or sore throat [] Respiratory: Denies cough or shortness of breath [] Cardiovascular: No additional information not addressed in HPI [] GI: Reports nausea and vomiting. Denies abdominal pain, bloody stools or diarrhea [] : Denies dysuria or hematuria [] Musculoskeletal: Denies back pain or joint pain [] Integument: Denies rash or skin lesions [] Neurologic: Denies headache, focal weakness or sensory changes [] All other systems were reviewed and found to be within normal limits, except as documented in this note. Current Medications Current Medications Current Medications Medications (Trade) Dose Ordered Sig/Afua Start Time Stop Time Status Last Admin Dose Admin Ondansetron HCl (Zofran) 4 mg 1X ONCE 11/29/18 18:15 11/29/18 18:23 DC 11/29/18 18:43 4 MG Piperacillin Sod/ Tazobactam Sod 3.375 gm/Sodium Chloride 50 ml @ 100 mls/hr 1X ONCE 11/29/18 18:15 11/29/18 18:44 DC 11/29/18 18:45 100 MLS/HR Vancomycin HCl (Vanco Per Pharmacy) 1 each 1X ONCE 11/29/18 18:15 11/29/18 18:24 DC Vancomycin HCl 2 gm/Sodium Chloride 500 ml @ 250 mls/hr 1X ONCE 11/29/18 19:00 11/29/18 20:59 11/29/18 18:46 250 MLS/HR Allergies Allergies Allergies Coded Allergies Type Severity Reaction Last Updated Verified Penicillins Adverse Reaction Mild Nausea 12/23/17 Yes Physical Exam Physical Exam Constitutional: Ill appearing patient in no acute distress HENT: Normocephalic, atraumatic, bilateral external ears normal, oropharynx moist, no oral exudates, nose normal. [] Eyes: PERRLA, EOMI, conjunctiva normal, no discharge. [] Neck: Normal range of motion, no tenderness, supple, no stridor. [] Cardiovascular:Heart rate regular rhythm, no murmur [] Lungs & Thorax: Bilateral breath sounds clear to auscultation [] Abdomen: Abdomen with peritoneal dialysis catheter. Bowel sounds normal, soft, no tenderness, no masses, no pulsatile masses. [] Skin: Warm, dry, no erythema, no rash. Right upper chest with hemodialysis catheter. No redness around the catheter site. Back: No tenderness, no CVA tenderness. [] Extremities: No tenderness, no cyanosis, no clubbing, ROM intact, +2 bilateral lower extremity edema Neurologic: Alert and oriented X 3, normal motor function, normal sensory function, no focal deficits noted. [] Psychologic: Affect normal, judgement normal, mood normal. [] Current Patient Data Vital Signs Vital Signs Date Time Temp Pulse Resp B/P (MAP) Pulse Ox O2 Delivery O2 Flow Rate FiO2 11/29/18 18:30 98 16 140/74 (96) 100 Nasal Cannula 2.0 11/29/18 17:30 102.4 102.4 Lab Values Laboratory Tests Test 11/29/18 18:17 11/29/18 18:46 White Blood Count 22.6 x10^3/uL (4.0-11.0) H Red Blood Count 2.13 x10^6/uL (4.30-5.70) L Hemoglobin 5.9 g/dL (13.0-17.5) *L Hematocrit 18.5 % (39.0-53.0) *L Mean Corpuscular Volume 87 fL (79-100) Mean Corpuscular Hemoglobin 28 pg (25-35) Mean Corpuscular Hemoglobin Concent 32 g/dL (31-37) Red Cell Distribution Width 18.5 % (11.5-14.5) H Platelet Count 294 x10^3/uL (140-400) Neutrophils (%) (Auto) 90 % (31-73) H Lymphocytes (%) (Auto) 4 % (24-48) L Monocytes (%) (Auto) 6 % (0-9) Eosinophils (%) (Auto) 0 % (0-3) Basophils (%) (Auto) 1 % (0-3) Neutrophils # (Auto) 20.2 x10^3uL (1.8-7.7) H Lymphocytes # (Auto) 0.8 x10^3/uL (1.0-4.8) L Monocytes # (Auto) 1.4 x10^3/uL (0.0-1.1) H Eosinophils # (Auto) 0.0 x10^3/uL (0.0-0.7) Basophils # (Auto) 0.1 x10^3/uL (0.0-0.2) Segmented Neutrophils % 70 % (35-66) H Band Neutrophils % 22 % (0-9) H Lymphocytes % 4 % (24-48) L Monocytes % 4 % (0-10) Toxic Vacuolation Slight Platelet Estimate Adequate (ADEQUATE) Polychromasia Slight Anisocytosis Slight Microcytosis Slight Macrocytosis Slight Sodium Level 138 mmol/L (136-145) Potassium Level 4.5 mmol/L (3.5-5.1) Chloride Level 98 mmol/L (98-107) Carbon Dioxide Level 25 mmol/L (21-32) Anion Gap 15 (6-14) H Blood Urea Nitrogen 56 mg/dL (8-26) H Creatinine 15.4 mg/dL (0.7-1.3) H Estimated GFR (Cockcroft-Gault) 4.3 BUN/Creatinine Ratio 4 (6-20) L Glucose Level 184 mg/dL (70-99) H Lactic Acid Level 1.0 mmol/L (0.4-2.0) Calcium Level 9.6 mg/dL (8.5-10.1) Total Bilirubin 0.5 mg/dL (0.2-1.0) Aspartate Amino Transferase (AST) 20 U/L (15-37) Alanine Aminotransferase (ALT) 30 U/L (16-63) Alkaline Phosphatase 119 U/L (46-116) H Troponin I Quantitative 0.067 ng/mL (0.000-0.055) [id number]-[id number]-Type Natriuretic Peptide > 31196 pg/mL (0-124) H Total Protein 6.1 g/dL (6.4-8.2) L Albumin 2.7 g/dL (3.4-5.0) L Albumin/Globulin Ratio 0.8 (1.0-1.7) L Procalcitonin 53.22 ng/mL (0.00-0.10) H Influenza Type A Antigen Negative (NEGATIVE) Influenza Type B Antigen Negative (NEGATIVE) Laboratory Tests 11/29/18 18:17 Laboratory Tests 11/29/18 18:17 EKG EKG 18:[address] Smith Sinus rhythm HR 91 ST elevation on V3 only EKG compared to the one done on 01/11/2018 this is new Radiology/Procedures Radiology/Procedures []PROCEDURE: PORTABLE CHEST 1V EXAM: CHEST 1 VIEW History: Fever COMPARISON: 11/20/2017 TECHNIQUE: Single portable radiograph of the chest FINDINGS: Low lung volumes and technique accentuates heart size and pulmonary vascularity. Mild cardiomegaly. Diffuse prominent appearing interstitial lung markings identified in the bilateral lungs likely congestive changes. Right-sided dialysis catheter is identified with the tip projecting in the SVC/RA junction. IMPRESSION: Moderate congestive changes Electronically signed by: Mil Worley MD (11/29/2018 6:45 PM) [facility] DICTATED and SIGNED BY: MIL WORLEY MD DATE: 11/29/18 1848 Course & Med Decision Making Course & Med Decision Making Pertinent Labs and Imaging studies reviewed. (See chart for details) This is a 38-year-old male patient on end-stage renal disease dialysis Saturday, Saturday, Saturday last dialyzed yesterday who presents to the ED today with a fever, nausea and vomiting, symptoms began this morning. Off note patient had hemodialysis catheter placed 3 days ago. He used to receive peritoneal dialysis. Patient arrived in the ED with a temperature 102.4, heart rate 104 blood pressure 141/77 O2 sats 94% on room air, respiration 20 room air. Patient was started on sepsis protocol but IV fluids were withheld because of his renal failure WBC 22.6 with a left shift. Hemoglobin 5.9 hematocrit 18.5, patient states he is on a kidney transplant list and cannot have blood transfusion. He can on the iron transfusion. Spoke with she requested iron transfusion which was ordered. Lactic 1.0, procalcitonin 53.22 Troponin 0.067, EKG noted for ST elevation in V3. Patient has no chest pain. Aspirin was ordered-spoke with who stated if patient has no chest pain they will monitor and f/u with him in AM Spoke with Dr. Murphy who accepted patient for admission Spoke with Dr. Parks who requested infectious disease consult. Call was placed for infectious disease. Consult also placed in the computer. Dragon Disclaimer Dragon Disclaimer This electronic medical record was generated, in whole or in part, using a voice recognition dictation system. Departure Departure Impression: Primary Impression: Fever Additional Impressions: End stage renal disease Leukocytosis Anemia Abnormal EKG Elevated troponin Disposition: ADMITTED INPATIENT Condition: STABLE Referrals: UNKNOWN PCP NAME (PCP) Problem Qualifiers Primary Impression: Fever Fever type: unspecified Qualified Codes: R50.9 - Fever, unspecified Additional Impressions: Leukocytosis Leukocytosis type: unspecified Qualified Codes: D72.829 - Elevated white blood cell count, unspecified Anemia Anemia type: unspecified type Qualified Codes: D64.9 - Anemia, unspecified LAZARUS REYES APRN Nov 29, 2018 18:27
[2018-11-29 18:37] LABS: BASO # 0.1 x10^3/uL (0.0-0.2); BASO % 1 % (0-3); EOS % 0 % (0-3); LYMPH # 0.8 x10^3/uL (1.0-4.8); LYMPH % 4 % (24-48); MEAN CORPUSCULAR HEMOGLOBIN 28 pg (25-35); MEAN CORPUSCULAR HGB CONC 32 g/dL (31-37); MEAN CORPUSCULAR VOLUME 87 fL (79-100); MONO # 1.4 x10^3/uL (0.0-1.1); MONO % 6 % (0-9); NEUT # 20.2 x10^3uL (1.8-7.7); NEUT % 90 % (31-73); PLATELET COUNT 294 x10^3/uL (140-400); RED BLOOD COUNT 2.13 x10^6/uL (4.30-5.70); RED CELL DISTRIBUTION WIDTH 18.5 % (11.5-14.5); WHITE BLOOD COUNT 22.6 x10^3/uL (4.0-11.0)
[2018-11-29 18:44] LABS: CALCIUM 9.6 mg/dL (8.5-10.1); CREATININE 15.4 mg/dL (0.7-1.3); GFR 4.3; HEMATOCRIT 18.5 % (39.0-53.0); HEMOGLOBIN 5.9 g/dL (13.0-17.5); POTASSIUM 4.5 mmol/L (3.5-5.1)
--- NOTE | 2018-11-29 18:48 | RAD ---
EXAM: CHEST 1 VIEW History: Fever COMPARISON: 11/20/2017 TECHNIQUE: Single portable radiograph of the chest FINDINGS: Low lung volumes and technique accentuates heart size and pulmonary vascularity. Mild cardiomegaly. Diffuse prominent appearing interstitial lung markings identified in the bilateral lungs likely congestive changes. Right-sided dialysis catheter is identified with the tip projecting in the SVC/RA junction. IMPRESSION: Moderate congestive changes Electronically signed by: Mil Worley MD (11/29/2018 6:45 PM) [facility]
[2018-11-29 18:50] LABS: ALBUMIN 2.7 g/dL (3.4-5.0); ALBUMIN/GLOBULIN RATIO 0.8 (1.0-1.7); TOTAL BILIRUBIN 0.5 mg/dL (0.2-1.0); TOTAL PROTEIN 6.1 g/dL (6.4-8.2)
[2018-11-29] MEDS ORDERED: VANCOMYCIN 2 GM in IV NORMAL SALINE 500ML BAG 500 ML IV ONE (19:00)
[2018-11-29] MEDS ORDERED: IRON SUCROSE COMPLEX 200 MG in IV NORMAL SALINE 100ML 100 ML IV ONE (19:15)
[2018-11-29 19:17] LABS: % BANDS 22 % (0-9); % LYMPHS 4 % (24-48); % MONOS 4 % (0-10); % SEGS 70 % (35-66)
[2018-11-29 19:18] LABS: ANISOCYTOSIS SLIGHT; MICROCYTOSIS SLIGHT; PLT ESTIMATE ADEQUATE (ADEQUATE); POLYCHROMASIA SLIGHT
[2018-11-29 19:19] LABS: TOXIC VACUOLATION SLIGHT
[2018-11-29 19:22] LABS: INFLUENZA A PATIENT NEGATIVE (NEGATIVE); INFLUENZA B PATIENT NEGATIVE (NEGATIVE)
[2018-11-29] MEDS ORDERED: fentaNYL PF VIAL 100 MCG/2 ML VIAL IV PRN (19:30)
[2018-11-29] MEDS ORDERED: ONDANSETRON PF 4 MG/2 ML VIAL. IV PRN (19:30)
[2018-11-29] MEDS ORDERED: ASPIRIN 325 MG TABLET PO ONE (19:45)
[2018-11-29 21:15] VITALS: BP 140/80
[2018-11-29 22:20] VITALS: BP 149/77
--- NOTE | 2018-11-29 22:20 | PDOC2 ---
CARDIOLOGY CONSULT NOTE CHEIF COMPLAINT: Abd pain/nausea/fever HPI: 38 y.o male presented to ED with fever. Cardiology asked to comment on positive troponin. Patient is chronically ill male on renal transplant list presented with recurrent GI symptoms and noted to have minimally elevated troponin but has critical anemia. No chest pain. Dyspnea noted with fatigue. No syncope/ palpitations. In ER given ASA for unclear reason. Currently on HD, feels chills. No other acute issues. At baseline able to do ADL 's w/o limitations. PMHX: HTN ESRD - previously on PD, now on HD Prior SBO DM2 Anemia of chronic disease. SOCHX: No alcohol, tob or illicits. FAMHX: NC CURRENT MEDS: Coreg 12.5mg bid Norvasc 10mg daily Simvastatin 20mg daily Lisinopril 40mg bid Clonidine 0.2mg bid Lasix 80mg bid ALLERGIES: Allergies Coded Allergies Type Severity Reaction Last Updated Verified Penicillins Adverse Reaction Mild Nausea 12/23/17 Yes ROS: Negative for 07/27 systems unless otherwise noted above in HPI. PHYSICAL EXAM: Vital Signs: Vital Signs Date Time Temp Pulse Resp B/P (MAP) Pulse Ox O2 Delivery O2 Flow Rate FiO2 11/29/18 20:00 84 21 125/68 (87) 100 Nasal Cannula 2.0 11/29/18 17:30 102.4 102.4 Physical Exam: Appears fatigued. Chills Tachycardic no m/r/g Clear lungs No edema. DIAGNOSTIC TESTING: CXR - unremarkable Hgb 6.9 WBC 21.9 ASSESSMENT: 1. Elevated troponin - Type 2 2. ESRD 3. Anemia 4. Tachycardia with Fever PLAN: 1. No acute cardiac issues. Supportive care for anemia/fever. 2. No need for anticoagulation for troponin elevation. 3. Please stop checking further troponins. Please call with questions. ANNABELLE HEWITT MD Nov 29, 2018 22:20
[2018-11-29] MEDS: cloNIDine HCL 0.2 MG TABLET PO SCH (22:22)
[2018-11-29] MEDS: SENNOSIDES 8.6 MG TABLET PO SCH (22:22)
[2018-11-29] MEDS: DOCUSATE SODIUM 100 MG CAPSULE. PO SCH (22:23)
[2018-11-29] MEDS: FUROSEMIDE 80 MG TABLET. PO SCH (22:23)
[2018-11-29] MEDS: SIMVASTATIN 20 MG TABLET PO SCH (22:23)
[2018-11-29] MEDS: LISINOPRIL 20 MG TABLET PO SCH (22:23)
[2018-11-29] MEDS: INSULIN GLARGINE 300 UNITS/3 ML INSULN.PEN. SQ SCH (22:35)
[2018-11-30] VITALS (8 sets, daily range): BP systolic 102–211; BP diastolic 62–107
[2018-11-30] MEDS ORDERED: CALC200T3 PO (00:24)
[2018-11-30] MEDS ORDERED: EPOE10005 IJ (00:24)
[2018-11-30] MEDS ORDERED: FLUT9.9S NS (00:24)
[2018-11-30] MEDS ORDERED: PANT20TA2 PO (00:24)
[2018-11-30] MEDS ORDERED: PROAIR RESPICL90 MCG IH (00:24)
[2018-11-30] MEDS: ACETAMINOPHEN 325 MG TABLET. PO PRN ×3 (03:19→17:35)
[2018-11-30] MEDS: LABETALOL 20 MG/4 ML DISP.SYRIN. IVP PRN (04:17)
[2018-11-30] MEDS ORDERED: IV NORMAL SALINE 1000ML BAG 1,000 ML IV ONE (04:30)
[2018-11-30 04:32] LABS: CALCIUM 9.5 mg/dL (8.5-10.1); CREATININE 16.2 mg/dL (0.7-1.3); GFR 4.1; POTASSIUM 5.2 mmol/L (3.5-5.1)
[2018-11-30 04:35] LABS: BASO % 0 % (0-3); EOS # 0.1 x10^3/uL (0.0-0.7); EOS % 1 % (0-3); HEMATOCRIT 21.5 % (39.0-53.0); LYMPH # 0.6 x10^3/uL (1.0-4.8); LYMPH % 3 % (24-48); MEAN CORPUSCULAR HEMOGLOBIN 28 pg (25-35); MEAN CORPUSCULAR HGB CONC 32 g/dL (31-37); MEAN CORPUSCULAR VOLUME 88 fL (79-100); MONO # 0.8 x10^3/uL (0.0-1.1); MONO % 4 % (0-9); NEUT # 20.4 x10^3uL (1.8-7.7); NEUT % 93 % (31-73); PLATELET COUNT 330 x10^3/uL (140-400); RED BLOOD COUNT 2.44 x10^6/uL (4.30-5.70); WHITE BLOOD COUNT 21.9 x10^3/uL (4.0-11.0)
[2018-11-30 04:36] LABS: HEMOGLOBIN 6.9 g/dL (13.0-17.5)
[2018-11-30] MEDS ORDERED: DARBEPOETIN ALFA 100 MCG/0.5 ML DISP.SYRIN. SQ ONE (07:00)
[2018-11-30] MEDS ORDERED: IV NORMAL SALINE 1000ML BAG 1,000 ML IV PRN ×2 (07:34)
[2018-11-30] MEDS ORDERED: ALBUMIN HUMAN 25% 200 ML IV PRN (07:45)
[2018-11-30] MEDS ORDERED: diphenhydrAMINE 50 MG/ML VIAL IV PRN (07:45)
[2018-11-30] MEDS ORDERED: DIALYSIS PATIENT. MC PRN ×2 (07:45)
[2018-11-30] MEDS ORDERED: INSULIN LISPRO 300 UNITS/3 ML INSULN.PEN. SQ SCH (08:00)
[2018-11-30] MEDS: SEVELAMER CARBONATE 800 MG TABLET. PO SCH ×3 (08:00→17:36)
[2018-11-30] MEDS: FUROSEMIDE 80 MG TABLET. PO SCH ×2 (09:00→13:35)
--- NOTE | 2018-11-30 10:09 | PDOC2 ---
CONSULT Date of Consult Date of Consult DATE: 11/30/18 TIME: 09:58 Reason for Consult Reason for Consult: ESRD WITH SOB AND ELECTROLYTE IMBALANCE Referring Physician Referring Physician: DONA Identification/Chief Complaint Chief Complaint SOB Source Source: Chart review, Patient History of Present Illness Reason for Visit: THIS IS A 38 YR OLD WITH SOB AND FEVERS. HE HAS ESRD AND HAS BEEN ON DIALYSIS FOR A NUMBER OF YEARS. WAS ON HD THEN ON TO PD. HAS BEEN ON PD FOR SEVERAL YEARS NOW. HAS HAD PROBLEMS WITH GETTING HIS PD CATHETER TO WORK AND HAS BEEN WAITING TO SURGERY OP. THEREFORE TO CONTINUE DIALYSIS HE HAS A TUNNELED HD CATHETER PLACED ON SAT THIS PAST WEEK. HE THEN WENT TO [facility] AFTERWARDS FROM THE DIALYSIS UNIT FOR SOB AND ANXIETY. HE DID NOT DIALYZE AT THE DIALYSIS CENTER. LATE SATURDAY NIGHT HE DEVELOPED FEVERS AND THEN HE CAME IN HERE FOR FURTHER EVALUATION. NOTED TO HAVE MILD HYPERKALEMIA AND HYPONATREMIA AND LEUCOCYTOSIS WITH SEVERE ANEMIA WITH HGB OF 5.9 ON ADMIT AND MOST RECENT HGB OF 6.9. CXRAY POS FOR CONGESTION. NO COMPLAINTS OF ANY BLOOD LOSS NOTED. DENIED ANY MELENA OR HEMATOCHEZIA. LABS OTHERWISE C/W ESRD. BLOOD CULTURES HAVE BEEN DRAWN AND PT NOTED TO HAVE FINDINGS SUGGESTIVE OF SEPSIS. NO DRAINAGE FROM CATHETER VENOTOMY OR EXIT SITE Past Medical History Cardiovascular: HTN Heme/Onc: Anemia NOS Renal/: Chronic renal failure Endocrine: Diabetes, Hyperparathyroidism Past Surgical History Past Surgical History HX OF TDC, SBO AND PD CATHETER Past Surgical History: Hernia Repair, Other Family History Family History: No Significant Social History No ALCOHOL: none Drugs: None Lives: with Family Current Problem List Problem List Problems Medical Problems: (1) Abnormal EKG Status: Acute (2) Elevated troponin Status: Acute (3) End stage renal disease Status: Acute (4) Fever Status: Acute Current Medications Current Medications Current Medications Vancomycin HCl (Vanco Per Pharmacy) 1 each 1X ONCE MC ; Start 11/29/18 at 18:15 ; Stop 11/29/18 at 18:24; Status DC Piperacillin Sod/ Tazobactam Sod 3.375 gm/Sodium Chloride 50 ml @ 100 mls/hr 1X ONCE IV Last administered on 11/29/18at 18:45; Start 11/29/18 at 18:15; Stop 11/29/18 at 18:44; Status DC Ondansetron HCl (Zofran) 4 mg 1X ONCE IV Last administered on 11/29/18 18:43 ; Start 11/29/18 at 18:15; Stop 11/29/18 at 18:23; Status DC Vancomycin HCl 2 gm/Sodium Chloride 500 ml @ 250 mls/hr 1X ONCE IV Last administered on 11/29/18 18:46; Start 11/29/18 at 19:00; Stop 11/29/18 at 20:59 ; Status DC Iron Sucrose 200 mg/Sodium Chloride 110 ml @ 55 mls/hr 1X ONCE IV Last administered on 11/29/18 22:20; Start 11/29/18 at 19:15; Stop 11/29/18 at 21:14 ; Status DC Ondansetron HCl (Zofran) 4 mg PRN Q8HRS PRN IV NAUSEA/VOMITING; Start 11/29/18 at 19:30; Stop 11/29/18 at 19:36; Status DC Fentanyl Citrate (Fentanyl 2ml Vial) 50 mcg PRN Q1HR PRN IV PAIN; Start at 19:30; Stop 11/30/18 at 19:29 Acetaminophen (Tylenol) 650 mg PRN Q4HRS PRN PO FEVER Last administered on 11/30at 03:19; Start 11/29/18 at 19:30; Stop 11/30/18 at 19:29 Ondansetron HCl (Zofran) 4 mg PRN Q6HRS PRN IV NAUSEA/VOMITING; Start 11/29/18 at 19:45 Amlodipine Besylate (Norvasc) 10 mg DAILY PO ; Start 11/30/18 at 09:00 Clonidine HCl (Catapres) 0.2 mg BID PO Last administered on 11/29/18at 22:22; Start 11/29/18 at 21:00 Docusate Sodium (Colace) 100 mg BID PO Last administered on 11/29/18at 22:23; Start 11/29/18 at 21:00 Furosemide (Lasix) 80 mg BID92 PO Last administered on 11/29/18at 22:23; Start 11/29/18 at 20:00 Insulin Glargine (Lantus) 32 units HS SQ Last administered on 11/29/18at 22:35; Start 11/29/18 at 21:00 Lisinopril (Prinivil) 40 mg BID PO Last administered on 11/29/18at 22:23; Start 11/29/18 at 21:00 Sevelamer Carbonate (Renvela) 4,000 mg TIDWMEALS PO ; Start 11/30/18 at 08:00 Calcitriol (Rocaltrol) 0.25 mcg DAILY PO ; Start 11/30/18 at 09:00 Carvedilol (Coreg) 12.5 mg BIDWMEALS PO ; Start 11/30/18 at 08:00 Vitamin D (Vitamin D3) 5,000 unit DAILY PO ; Start 11/30/18 at 09:00 Cinacalcet (Sensipar) 60 mg DAILY PO ; Start 11/30/18 at 09:00 Polyethylene Glycol (miraLAX PACKET) 17 gm DAILY PO ; Start 11/30/18 at 09:00 Sennosides (Senna) 8.6 mg BID PO Last administered on 11/29/18at 22:22; Start at 21:00 Simvastatin (Zocor) 20 mg HS PO Last administered on 11/29/18at 22:23; Start at 21:00 Vitamin B Complex/ Vitamin C (Johanna-Celia) 1 tab DAILY PO ; Start 11/30/18 at 09: 00 Insulin Human Lispro (HumaLOG) 0-9 UNITS TIDWMEALS SQ Last administered on 11/29at 22:44; Start 11/30/18 at 08:00 Dextrose (Dextrose 50%-Water Syringe) 12.5 gm PRN Q15MIN PRN IV SEE COMMENTS; Start 11/29/18 at 19:45 Aspirin (Anshul Aspirin) 325 mg 1X ONCE PO Last administered on 11/29/18at 20:19 ; Start 11/29/18 at 19:45; Stop 11/29/18 at 19:46; Status DC Labetalol HCl (Normodyne Iv Push) 10 mg PRN Q2HR PRN IVP HYPERTENSION, SEE COMMENTS Last administered on 11/30/18at 04:17; Start 11/30/18 at 04:00 Sodium Chloride 1,000 ml @ 100 mls/hr 1X ONCE IV Last administered on at 04:17; Start 11/30/18 at 04:30; Stop 11/30/18 at 05:57; Status DC Darbepoetin David (Aranesp) 100 mcg 1X ONCE SQ Last administered on 11/30/18at 06:06; Start 11/30/18 at 07:00; Stop 11/30/18 at 07:01; Status DC Sodium Chloride 1,000 ml @ 1,000 mls/hr Q1H PRN IV hypotension; Start 11/30/18 at 07:34; Stop 11/30/18 at 13:33 Albumin Human 200 ml @ 200 mls/hr 1X PRN PRN IV Hypotension; Start 11/30/18 at 07:45; Stop 11/30/18 at 13:44 Diphenhydramine HCl (Benadryl) 25 mg 1X PRN PRN IV ITCHING; Start 11/30/18 at 07:45; Stop 12/01/18 at 07:44 Sodium Chloride 1,000 ml @ 400 mls/hr Q2H30M PRN IV PATENCY; Start 11/30/18 at 07:34; Stop 11/30/18 at 19:33 Info (PHARMACY MONITORING -- do not chart) 1 each PRN DAILY PRN MC SEE COMMENTS ; Start 11/30/18 at 07:45 Info (PHARMACY MONITORING -- do not chart) 1 each PRN DAILY PRN MC SEE COMMENTS ; Start 11/30/18 at 07:45; Status UNV Active Scripts Active Reported Protonix (Pantoprazole Sodium) 20 Mg Tablet.dr 2 Tab PO DAILY Flonase Allergy Relief (Fluticasone Propionate) 9.9 Ml [place].susp 2 Sprays NS DAILY Procrit (Epoetin David) 10,000 Unit/1 Ml Vial 10,000 Unit IJ WEEKLY Tums (Calcium Carbonate) 200 Mg Tab.chew 200 Mg PO BID PRN Proair Respiclick (Albuterol Sulfate) 90 Mcg Aer.pow.ba 1-2 Puff IH PRN Q6HRS PRN Senna (Sennosides) 8.6 Mg Tablet 8.6 Mg PO BID Miralax (Polyethylene Glycol 3350) 17 Gm Powd.pack 1 Packet PO DAILY Colace (Docusate Sodium) 100 Mg Capsule 1 Cap PO BID Carvedilol 25 Mg Tablet 25 Mg PO BIDWMEALS Renvela (Sevelamer Carbonate) 800 Mg Tablet 5 Tab PO TIDWMEALS Furosemide 80 Mg Tablet 1 Tab PO BID Vitamin D (Cholecalciferol (Vitamin D3)) 5,000 Unit Tablet 5,000 Unit PO DAILY Calcitriol 0.25 Mcg Capsule 2 Cap PO DAILY Clonidine Hcl 0.2 Mg Tablet 1 Tab PO BID Johanna-Celia Rx Tablet (Vit B Cmplx 3/Fa/Vit C/Biotin) 1 Each Tablet 1 Each PO DAILY Sensipar (Cinacalcet Hcl) 60 Mg Tablet 60 Mg PO DAILY Amlodipine Besylate 10 Mg Tablet 10 Mg PO DAILY Simvastatin 20 Mg Tablet 20 Mg PO HS Lisinopril 40 Mg Tablet 1 Tab PO BID Novolog (Insulin Aspart) 100 Unit/1 Ml Vial 100 Unit SQ sliding scale Lantus Solostar (Insulin Glargine,Hum.rec.anlog) 100 Unit/1 Ml Insuln.pen 15 Unit SQ HS Allergies Allergies: Coded Allergies: Penicillins (Verified Adverse Reaction, Mild, Nausea, 12/23/17) ROS General: YES: Chills, Fatigue, Malaise, Appetite PSYCHOLOGICAL ROS: YES: Anxiety Eyes: Yes Decreased vision HEENT: YES: Heacaches, Nasal congestion ALLERGY AND IMMUNOLOGY: YES: Seasonal Allergies Respiratory: YES: Cough, Orthopnea, Shortness of breath, Tachypnea Cardiovascular: yes Orthopnea, yes Lt Headedness Gastrointestinal: Yes Constipation Genitourinary: YES Other (OLIGURIA) Musculoskeletal: Yes Muscular Weakness Neurological: Yes Weakness Skin: Yes Dry Skin, Yes Pruritus Physical Exam General: Alert, Oriented X3, Cooperative, mild distress HEENT: Atraumatic, PERRLA, EOMI, Mucous membr. moist/pink Lungs: Other (BASILAR RALES) Heart: Regular rate, Normal S1, Normal S2 Abdomen: Normal bowel sounds, Soft, No tenderness, Other (PD SITE CLEAN AND DRY ) Extremities: No clubbing, No cyanosis Skin: No breakdown Neuro: Normal gait, Normal speech, Sensation intact, Cranial nerves 3-12 NL Psych/Mental Status: Mental status NL, Mood NL MUSCULOSKELETAL: No joint tenderness, No deformity, No swelling Vitals VITALS Vital Signs Date Time Temp Pulse Resp B/P (MAP) Pulse Ox O2 Delivery O2 Flow Rate FiO2 11/30/18 07:00 99.2 91 18 153/84 (107) 95 Nasal Cannula 3.0 99.2 Labs Labs Laboratory Tests Test 11/29/18 18:17 11/29/18 18:46 11/29/18 22:00 11/29/18 22:28 White Blood Count 22.6 x10^3/uL (4.0-11.0) Red Blood Count 2.13 x10^6/uL (4.30-5.70) Hemoglobin 5.9 g/dL (13.0-17.5) Hematocrit 18.5 % (39.0-53.0) Mean Corpuscular Volume 87 fL (79-100) Mean Corpuscular Hemoglobin 28 pg (25-35) Mean Corpuscular Hemoglobin Concent 32 g/dL (31-37) Red Cell Distribution Width 18.5 % (11.5-14.5) Platelet Count 294 x10^3/uL (140-400) Neutrophils (%) (Auto) 90 % (31-73) Lymphocytes (%) (Auto) 4 % (24-48) Monocytes (%) (Auto) 6 % (0-9) Eosinophils (%) (Auto) 0 % (0-3) Basophils (%) (Auto) 1 % (0-3) Neutrophils # (Auto) 20.2 x10^3uL (1.8-7.7) Lymphocytes # (Auto) 0.8 x10^3/uL (1.0-4.8) Monocytes # (Auto) 1.4 x10^3/uL (0.0-1.1) Eosinophils # (Auto) 0.0 x10^3/uL (0.0-0.7) Basophils # (Auto) 0.1 x10^3/uL (0.0-0.2) Segmented Neutrophils % 70 % (35-66) Band Neutrophils % 22 % (0-9) Lymphocytes % 4 % (24-48) Monocytes % 4 % (0-10) Toxic Vacuolation Slight Platelet Estimate Adequate (ADEQUATE) Polychromasia Slight Anisocytosis Slight Microcytosis Slight Macrocytosis Slight Sodium Level 138 mmol/L (136-145) Potassium Level 4.5 mmol/L (3.5-5.1) Chloride Level 98 mmol/L (98-107) Carbon Dioxide Level 25 mmol/L (21-32) Anion Gap 15 (6-14) Blood Urea Nitrogen 56 mg/dL (8-26) Creatinine 15.4 mg/dL (0.7-1.3) Estimated GFR (Cockcroft-Gault) 4.3 BUN/Creatinine Ratio 4 (6-20) Glucose Level 184 mg/dL (70-99) Lactic Acid Level 1.0 mmol/L (0.4-2.0) 1.1 mmol/L (0.4-2.0) Calcium Level 9.6 mg/dL (8.5-10.1) Total Bilirubin 0.5 mg/dL (0.2-1.0) Aspartate Amino Transf (AST/SGOT) 20 U/L (15-37) Alanine Aminotransferase (ALT/SGPT) 30 U/L (16-63) Alkaline Phosphatase 119 U/L (46-116) Troponin I Quantitative 0.067 ng/mL (0.000-0.055) 0.053 ng/mL (0.000-0.055) NB-Ijo-Z-Type Natriuretic Peptide > 79483 pg/mL (0-124) Total Protein 6.1 g/dL (6.4-8.2) Albumin 2.7 g/dL (3.4-5.0) Albumin/Globulin Ratio 0.8 (1.0-1.7) Procalcitonin 53.22 ng/mL (0.00-0.10) Influenza Type A Antigen Negative (NEGATIVE) Influenza Type B Antigen Negative (NEGATIVE) Glucose (Fingerstick) 314 mg/dL (70-99) Test 11/30/18 03:00 11/30/18 08:08 White Blood Count 21.9 x10^3/uL (4.0-11.0) Red Blood Count 2.44 x10^6/uL (4.30-5.70) Hemoglobin 6.9 g/dL (13.0-17.5) Hematocrit 21.5 % (39.0-53.0) Mean Corpuscular Volume 88 fL (79-100) Mean Corpuscular Hemoglobin 28 pg (25-35) Mean Corpuscular Hemoglobin Concent 32 g/dL (31-37) Red Cell Distribution Width 19.0 % (11.5-14.5) Platelet Count 330 x10^3/uL (140-400) Neutrophils (%) (Auto) 93 % (31-73) Lymphocytes (%) (Auto) 3 % (24-48) Monocytes (%) (Auto) 4 % (0-9) Eosinophils (%) (Auto) 1 % (0-3) Basophils (%) (Auto) 0 % (0-3) Neutrophils # (Auto) 20.4 x10^3uL (1.8-7.7) Lymphocytes # (Auto) 0.6 x10^3/uL (1.0-4.8) Monocytes # (Auto) 0.8 x10^3/uL (0.0-1.1) Eosinophils # (Auto) 0.1 x10^3/uL (0.0-0.7) Basophils # (Auto) 0.0 x10^3/uL (0.0-0.2) Sodium Level 134 mmol/L (136-145) Potassium Level 5.2 mmol/L (3.5-5.1) Chloride Level 94 mmol/L (98-107) Carbon Dioxide Level 26 mmol/L (21-32) Anion Gap 14 (6-14) Blood Urea Nitrogen 62 mg/dL (8-26) Creatinine 16.2 mg/dL (0.7-1.3) Estimated GFR (Cockcroft-Gault) 4.1 Glucose Level 390 mg/dL (70-99) Calcium Level 9.5 mg/dL (8.5-10.1) Troponin I Quantitative 0.041 ng/mL (0.000-0.055) C-Reactive Protein, Quantitative 177.1 mg/L (0-3.3) Procalcitonin 94.62 ng/mL (0.00-0.10) Glucose (Fingerstick) 338 mg/dL (70-99) Laboratory Tests Test 11/29/18 18:17 11/29/18 18:46 11/29/18 22:00 11/29/18 22:28 White Blood Count 22.6 x10^3/uL (4.0-11.0) Red Blood Count 2.13 x10^6/uL (4.30-5.70) Hemoglobin 5.9 g/dL (13.0-17.5) Hematocrit 18.5 % (39.0-53.0) Mean Corpuscular Volume 87 fL (79-100) Mean Corpuscular Hemoglobin 28 pg (25-35) Mean Corpuscular Hemoglobin Concent 32 g/dL (31-37) Red Cell Distribution Width 18.5 % (11.5-14.5) Platelet Count 294 x10^3/uL (140-400) Neutrophils (%) (Auto) 90 % (31-73) Lymphocytes (%) (Auto) 4 % (24-48) Monocytes (%) (Auto) 6 % (0-9) Eosinophils (%) (Auto) 0 % (0-3) Basophils (%) (Auto) 1 % (0-3) Neutrophils # (Auto) 20.2 x10^3uL (1.8-7.7) Lymphocytes # (Auto) 0.8 x10^3/uL (1.0-4.8) Monocytes # (Auto) 1.4 x10^3/uL (0.0-1.1) Eosinophils # (Auto) 0.0 x10^3/uL (0.0-0.7) Basophils # (Auto) 0.1 x10^3/uL (0.0-0.2) Segmented Neutrophils % 70 % (35-66) Band Neutrophils % 22 % (0-9) Lymphocytes % 4 % (24-48) Monocytes % 4 % (0-10) Toxic Vacuolation Slight Platelet Estimate Adequate (ADEQUATE) Polychromasia Slight Anisocytosis Slight Microcytosis Slight Macrocytosis Slight Sodium Level 138 mmol/L (136-145) Potassium Level 4.5 mmol/L (3.5-5.1) Chloride Level 98 mmol/L (98-107) Carbon Dioxide Level 25 mmol/L (21-32) Anion Gap 15 (6-14) Blood Urea Nitrogen 56 mg/dL (8-26) Creatinine 15.4 mg/dL (0.7-1.3) Estimated GFR (Cockcroft-Gault) 4.3 BUN/Creatinine Ratio 4 (6-20) Glucose Level 184 mg/dL (70-99) Lactic Acid Level 1.0 mmol/L (0.4-2.0) 1.1 mmol/L (0.4-2.0) Calcium Level 9.6 mg/dL (8.5-10.1) Total Bilirubin 0.5 mg/dL (0.2-1.0) Aspartate Amino Transf (AST/SGOT) 20 U/L (15-37) Alanine Aminotransferase (ALT/SGPT) 30 U/L (16-63) Alkaline Phosphatase 119 U/L (46-116) Troponin I Quantitative 0.067 ng/mL (0.000-0.055) 0.053 ng/mL (0.000-0.055) YR-Nyc-O-Type Natriuretic Peptide > 30189 pg/mL (0-124) Total Protein 6.1 g/dL (6.4-8.2) Albumin 2.7 g/dL (3.4-5.0) Albumin/Globulin Ratio 0.8 (1.0-1.7) Procalcitonin 53.22 ng/mL (0.00-0.10) Influenza Type A Antigen Negative (NEGATIVE) Influenza Type B Antigen Negative (NEGATIVE) Glucose (Fingerstick) 314 mg/dL (70-99) Test 11/30/18 03:00 11/30/18 08:08 White Blood Count 21.9 x10^3/uL (4.0-11.0) Red Blood Count 2.44 x10^6/uL (4.30-5.70) Hemoglobin 6.9 g/dL (13.0-17.5) Hematocrit 21.5 % (39.0-53.0) Mean Corpuscular Volume 88 fL (79-100) Mean Corpuscular Hemoglobin 28 pg (25-35) Mean Corpuscular Hemoglobin Concent 32 g/dL (31-37) Red Cell Distribution Width 19.0 % (11.5-14.5) Platelet Count 330 x10^3/uL (140-400) Neutrophils (%) (Auto) 93 % (31-73) Lymphocytes (%) (Auto) 3 % (24-48) Monocytes (%) (Auto) 4 % (0-9) Eosinophils (%) (Auto) 1 % (0-3) Basophils (%) (Auto) 0 % (0-3) Neutrophils # (Auto) 20.4 x10^3uL (1.8-7.7) Lymphocytes # (Auto) 0.6 x10^3/uL (1.0-4.8) Monocytes # (Auto) 0.8 x10^3/uL (0.0-1.1) Eosinophils # (Auto) 0.1 x10^3/uL (0.0-0.7) Basophils # (Auto) 0.0 x10^3/uL (0.0-0.2) Sodium Level 134 mmol/L (136-145) Potassium Level 5.2 mmol/L (3.5-5.1) Chloride Level 94 mmol/L (98-107) Carbon Dioxide Level 26 mmol/L (21-32) Anion Gap 14 (6-14) Blood Urea Nitrogen 62 mg/dL (8-26) Creatinine 16.2 mg/dL (0.7-1.3) Estimated GFR (Cockcroft-Gault) 4.1 Glucose Level 390 mg/dL (70-99) Calcium Level 9.5 mg/dL (8.5-10.1) Troponin I Quantitative 0.041 ng/mL (0.000-0.055) C-Reactive Protein, Quantitative 177.1 mg/L (0-3.3) Procalcitonin 94.62 ng/mL (0.00-0.10) Glucose (Fingerstick) 338 mg/dL (70-99) Images Images EXAM: CHEST 1 VIEW History: Fever COMPARISON: 11/20/2017 TECHNIQUE: Single portable radiograph of the chest FINDINGS: Low lung volumes and technique accentuates heart size and pulmonary vascularity. Mild cardiomegaly. Diffuse prominent appearing interstitial lung markings identified in the bilateral lungs likely congestive changes. Right-sided dialysis catheter is identified with the tip projecting in the SVC/RA junction. IMPRESSION: Moderate congestive changes Assessment/Plan Assessment/Plan IMP ACUTE DIASTOLIC CHF FEVER PROB LINE SEPSIS ANEMIA DM II HTN NON FUNCTIONING PD CATHETER HYPERKALEMIA HYPONATREMIA LEUCOCYTOSIS PLAN AVOID PRBC IF AT ALL POSSIBLE SINCE HE IS A TRANSPLANT CANDIDATE EMERGENT HD THIS AM UF TO DW AND CHALLENGE DEANNA AVOID VENOFER NOW DUE TO INFECTION WILL HAVE DR STRANGE SEE PT FOR REPAIR OF PD CATHETER ID TO SEE PT ANTIBIOTICS MAY NEED TO HAVE LINE REPLACED DEPENDING ON CULTURE RESULTS D/W DR STRANGE UPDATED PT'S ARIANNE UMANA MD Nov 30, 2018 10:09
--- NOTE | 2018-11-30 10:28 | PDOC2 ---
CONSULT Date of Consult Date of Consult DATE: 11/30/18 TIME: 10:20 Reason for Consult Reason for Consult: Malfunctioning peritoneal dialysis catheter Referring Physician Referring Physician: Dr. Parks Identification/Chief Complaint Chief Complaint Abdominal pain, shortness of breath Source Source: Chart review, Patient History of Present Illness Reason for Visit: Mr. Villa is a 38-year-old gentleman who has been on peritoneal dialysis for approximately 5 years. He was admitted yesterday with shortness of breath and electrolyte imbalance. His peritoneal dialysis catheter has been evaluated by IR , however, continues to not drain well. We are asked to see him for evaluation of same. Patient is seen while on hemodialysis Past Medical History Cardiovascular: HTN Heme/Onc: Anemia NOS Renal/: Chronic renal failure Endocrine: Diabetes, Hyperparathyroidism Past Surgical History Past Surgical History: Hernia Repair, Other (replacement peritoneal dialysis catheter, placement of a tunneled hemodialysis catheter) Family History Family History: No Significant Social History No ALCOHOL: none Drugs: None Lives: with Family Current Problem List Problem List Problems Medical Problems: (1) Abnormal EKG Status: Acute (2) Elevated troponin Status: Acute (3) End stage renal disease Status: Acute (4) Fever Status: Acute Current Medications Current Medications Current Medications Vancomycin HCl (Vanco Per Pharmacy) 1 each 1X ONCE MC ; Start 11/29/18 at 18:15 ; Stop 11/29/18 at 18:24; Status DC Piperacillin Sod/ Tazobactam Sod 3.375 gm/Sodium Chloride 50 ml @ 100 mls/hr 1X ONCE IV Last administered on 11/29/18at 18:45; Start 11/29/18 at 18:15; Stop 11/29/18 at 18:44; Status DC Ondansetron HCl (Zofran) 4 mg 1X ONCE IV Last administered on 11/29/18at 18:43 ; Start 11/29/18 at 18:15; Stop 11/29/18 at 18:23; Status DC Vancomycin HCl 2 gm/Sodium Chloride 500 ml @ 250 mls/hr 1X ONCE IV Last administered on 11/29/18at 18:46; Start 11/29/18 at 19:00; Stop 11/29/18 at 20:59 ; Status DC Iron Sucrose 200 mg/Sodium Chloride 110 ml @ 55 mls/hr 1X ONCE IV Last administered on 11/29/18at 22:20; Start 11/29/18 at 19:15; Stop 11/29/18 at 21:14 ; Status DC Ondansetron HCl (Zofran) 4 mg PRN Q8HRS PRN IV NAUSEA/VOMITING; Start 11/29/18 at 19:30; Stop 11/29/18 at 19:36; Status DC Fentanyl Citrate (Fentanyl 2ml Vial) 50 mcg PRN Q1HR PRN IV PAIN; Start at 19:30; Stop 11/30/18 at 19:29 Acetaminophen (Tylenol) 650 mg PRN Q4HRS PRN PO FEVER Last administered on 11/30at 03:19; Start 11/29/18 at 19:30; Stop 11/30/18 at 19:29 Ondansetron HCl (Zofran) 4 mg PRN Q6HRS PRN IV NAUSEA/VOMITING; Start 11/29/18 at 19:45 Amlodipine Besylate (Norvasc) 10 mg DAILY PO ; Start 11/30/18 at 09:00 Clonidine HCl (Catapres) 0.2 mg BID PO Last administered on 11/29/18at 22:22; Start 11/29/18 at 21:00 Docusate Sodium (Colace) 100 mg BID PO Last administered on 11/29/18at 22:23; Start 11/29/18 at 21:00 Furosemide (Lasix) 80 mg BID92 PO Last administered on 11/29/18at 22:23; Start 11/29/18 at 20:00 Insulin Glargine (Lantus) 32 units HS SQ Last administered on 11/29/18at 22:35; Start 11/29/18 at 21:00 Lisinopril (Prinivil) 40 mg BID PO Last administered on 11/29/18at 22:23; Start 11/29/18 at 21:00 Sevelamer Carbonate (Renvela) 4,000 mg TIDWMEALS PO ; Start 11/30/18 at 08:00 Calcitriol (Rocaltrol) 0.25 mcg DAILY PO ; Start 11/30/18 at 09:00 Carvedilol (Coreg) 12.5 mg BIDWMEALS PO ; Start 11/30/18 at 08:00 Vitamin D (Vitamin D3) 5,000 unit DAILY PO ; Start 11/30/18 at 09:00 Cinacalcet (Sensipar) 60 mg DAILY PO ; Start 11/30/18 at 09:00 Polyethylene Glycol (miraLAX PACKET) 17 gm DAILY PO ; Start 11/30/18 at 09:00 Sennosides (Senna) 8.6 mg BID PO Last administered on 11/29/18at 22:22; Start at 21:00 Simvastatin (Zocor) 20 mg HS PO Last administered on 11/29/18at 22:23; Start at 21:00 Vitamin B Complex/ Vitamin C (Johanna-Celia) 1 tab DAILY PO ; Start 11/30/18 at 09: 00 Insulin Human Lispro (HumaLOG) 0-9 UNITS TIDWMEALS SQ Last administered on 11/29at 22:44; Start 11/30/18 at 08:00 Dextrose (Dextrose 50%-Water Syringe) 12.5 gm PRN Q15MIN PRN IV SEE COMMENTS; Start 11/29/18 at 19:45 Aspirin (Anshul Aspirin) 325 mg 1X ONCE PO Last administered on 11/29/18at 20:19 ; Start 11/29/18 at 19:45; Stop 11/29/18 at 19:46; Status DC Labetalol HCl (Normodyne Iv Push) 10 mg PRN Q2HR PRN IVP HYPERTENSION, SEE COMMENTS Last administered on 11/30/18at 04:17; Start 11/30/18 at 04:00 Sodium Chloride 1,000 ml @ 100 mls/hr 1X ONCE IV Last administered on at 04:17; Start 11/30/18 at 04:30; Stop 11/30/18 at 05:57; Status DC Darbepoetin David (Aranesp) 100 mcg 1X ONCE SQ Last administered on 11/30/18at 06:06; Start 11/30/18 at 07:00; Stop 11/30/18 at 07:01; Status DC Sodium Chloride 1,000 ml @ 1,000 mls/hr Q1H PRN IV hypotension; Start 11/30/18 at 07:34; Stop 11/30/18 at 13:33 Albumin Human 200 ml @ 200 mls/hr 1X PRN PRN IV Hypotension; Start 11/30/18 at 07:45; Stop 11/30/18 at 13:44 Diphenhydramine HCl (Benadryl) 25 mg 1X PRN PRN IV ITCHING; Start 11/30/18 at 07:45; Stop 12/01/18 at 07:44 Sodium Chloride 1,000 ml @ 400 mls/hr Q2H30M PRN IV PATENCY; Start 11/30/18 at 07:34; Stop 11/30/18 at 19:33 Info (PHARMACY MONITORING -- do not chart) 1 each PRN DAILY PRN MC SEE COMMENTS ; Start 11/30/18 at 07:45 Info (PHARMACY MONITORING -- do not chart) 1 each PRN DAILY PRN MC SEE COMMENTS ; Start 11/30/18 at 07:45; Status UNV Darbepoetin David (Aranesp) 60 mcg WEEKLYHS SQ ; Start 11/30/18 at 21:00; Stop at 21:00; Status DC Darbepoetin Advid (Aranesp) 60 mcg WEEKLYHS SQ ; Start 12/07/18 at 21:00 Active Scripts Active Reported Protonix (Pantoprazole Sodium) 20 Mg Tablet.dr 2 Tab PO DAILY Flonase Allergy Relief (Fluticasone Propionate) 9.9 Ml [place].susp 2 Sprays NS DAILY Procrit (Epoetin David) 10,000 Unit/1 Ml Vial 10,000 Unit IJ WEEKLY Tums (Calcium Carbonate) 200 Mg Tab.chew 200 Mg PO BID PRN Proair Respiclick (Albuterol Sulfate) 90 Mcg Aer.pow.ba 1-2 Puff IH PRN Q6HRS PRN Senna (Sennosides) 8.6 Mg Tablet 8.6 Mg PO BID Miralax (Polyethylene Glycol 3350) 17 Gm Powd.pack 1 Packet PO DAILY Colace (Docusate Sodium) 100 Mg Capsule 1 Cap PO BID Carvedilol 25 Mg Tablet 25 Mg PO BIDWMEALS Renvela (Sevelamer Carbonate) 800 Mg Tablet 5 Tab PO TIDWMEALS Furosemide 80 Mg Tablet 1 Tab PO BID Vitamin D (Cholecalciferol (Vitamin D3)) 5,000 Unit Tablet 5,000 Unit PO DAILY Calcitriol 0.25 Mcg Capsule 2 Cap PO DAILY Clonidine Hcl 0.2 Mg Tablet 1 Tab PO BID Johanna-Celia Rx Tablet (Vit B Cmplx 3/Fa/Vit C/Biotin) 1 Each Tablet 1 Each PO DAILY Sensipar (Cinacalcet Hcl) 60 Mg Tablet 60 Mg PO DAILY Amlodipine Besylate 10 Mg Tablet 10 Mg PO DAILY Simvastatin 20 Mg Tablet 20 Mg PO HS Lisinopril 40 Mg Tablet 1 Tab PO BID Novolog (Insulin Aspart) 100 Unit/1 Ml Vial 100 Unit SQ sliding scale Lantus Solostar (Insulin Glargine,Hum.rec.anlog) 100 Unit/1 Ml Insuln.pen 15 Unit SQ HS Allergies Allergies: Coded Allergies: Penicillins (Verified Adverse Reaction, Mild, Nausea, 12/23/17) ROS General: YES: Chills, Malaise, Other (fever) PSYCHOLOGICAL ROS: YES: Anxiety Eyes: Yes Decreased vision HEENT: YES: Heacaches, Nasal congestion ALLERGY AND IMMUNOLOGY: YES: Seasonal Allergies Respiratory: YES: Cough, SOB with excertion Cardiovascular: yes Orthopnea, yes Lt Headedness Skin: Yes Dry Skin, Yes Pruritus Physical Exam General: Alert, No acute distress, Other (bulldog in blankets in the dialysis room) HEENT: Atraumatic Lungs: Normal air movement Heart: Regular rate Abdomen: Soft, No tenderness Neuro: Normal speech Vitals VITALS Vital Signs Date Time Temp Pulse Resp B/P (MAP) Pulse Ox O2 Delivery O2 Flow Rate FiO2 11/30/18 07:00 99.2 91 18 153/84 (107) 95 Nasal Cannula 3.0 99.2 Labs Labs Laboratory Tests Test 11/29/18 18:17 11/29/18 18:46 11/29/18 22:00 11/29/18 22:28 White Blood Count 22.6 x10^3/uL (4.0-11.0) Red Blood Count 2.13 x10^6/uL (4.30-5.70) Hemoglobin 5.9 g/dL (13.0-17.5) Hematocrit 18.5 % (39.0-53.0) Mean Corpuscular Volume 87 fL (79-100) Mean Corpuscular Hemoglobin 28 pg (25-35) Mean Corpuscular Hemoglobin Concent 32 g/dL (31-37) Red Cell Distribution Width 18.5 % (11.5-14.5) Platelet Count 294 x10^3/uL (140-400) Neutrophils (%) (Auto) 90 % (31-73) Lymphocytes (%) (Auto) 4 % (24-48) Monocytes (%) (Auto) 6 % (0-9) Eosinophils (%) (Auto) 0 % (0-3) Basophils (%) (Auto) 1 % (0-3) Neutrophils # (Auto) 20.2 x10^3uL (1.8-7.7) Lymphocytes # (Auto) 0.8 x10^3/uL (1.0-4.8) Monocytes # (Auto) 1.4 x10^3/uL (0.0-1.1) Eosinophils # (Auto) 0.0 x10^3/uL (0.0-0.7) Basophils # (Auto) 0.1 x10^3/uL (0.0-0.2) Segmented Neutrophils % 70 % (35-66) Band Neutrophils % 22 % (0-9) Lymphocytes % 4 % (24-48) Monocytes % 4 % (0-10) Toxic Vacuolation Slight Platelet Estimate Adequate (ADEQUATE) Polychromasia Slight Anisocytosis Slight Microcytosis Slight Macrocytosis Slight Sodium Level 138 mmol/L (136-145) Potassium Level 4.5 mmol/L (3.5-5.1) Chloride Level 98 mmol/L (98-107) Carbon Dioxide Level 25 mmol/L (21-32) Anion Gap 15 (6-14) Blood Urea Nitrogen 56 mg/dL (8-26) Creatinine 15.4 mg/dL (0.7-1.3) Estimated GFR (Cockcroft-Gault) 4.3 BUN/Creatinine Ratio 4 (6-20) Glucose Level 184 mg/dL (70-99) Lactic Acid Level 1.0 mmol/L (0.4-2.0) 1.1 mmol/L (0.4-2.0) Calcium Level 9.6 mg/dL (8.5-10.1) Total Bilirubin 0.5 mg/dL (0.2-1.0) Aspartate Amino Transf (AST/SGOT) 20 U/L (15-37) Alanine Aminotransferase (ALT/SGPT) 30 U/L (16-63) Alkaline Phosphatase 119 U/L (46-116) Troponin I Quantitative 0.067 ng/mL (0.000-0.055) 0.053 ng/mL (0.000-0.055) JK-Zcv-H-Type Natriuretic Peptide > 52036 pg/mL (0-124) Total Protein 6.1 g/dL (6.4-8.2) Albumin 2.7 g/dL (3.4-5.0) Albumin/Globulin Ratio 0.8 (1.0-1.7) Procalcitonin 53.22 ng/mL (0.00-0.10) Influenza Type A Antigen Negative (NEGATIVE) Influenza Type B Antigen Negative (NEGATIVE) Glucose (Fingerstick) 314 mg/dL (70-99) Test 11/30/18 03:00 11/30/18 08:08 White Blood Count 21.9 x10^3/uL (4.0-11.0) Red Blood Count 2.44 x10^6/uL (4.30-5.70) Hemoglobin 6.9 g/dL (13.0-17.5) Hematocrit 21.5 % (39.0-53.0) Mean Corpuscular Volume 88 fL (79-100) Mean Corpuscular Hemoglobin 28 pg (25-35) Mean Corpuscular Hemoglobin Concent 32 g/dL (31-37) Red Cell Distribution Width 19.0 % (11.5-14.5) Platelet Count 330 x10^3/uL (140-400) Neutrophils (%) (Auto) 93 % (31-73) Lymphocytes (%) (Auto) 3 % (24-48) Monocytes (%) (Auto) 4 % (0-9) Eosinophils (%) (Auto) 1 % (0-3) Basophils (%) (Auto) 0 % (0-3) Neutrophils # (Auto) 20.4 x10^3uL (1.8-7.7) Lymphocytes # (Auto) 0.6 x10^3/uL (1.0-4.8) Monocytes # (Auto) 0.8 x10^3/uL (0.0-1.1) Eosinophils # (Auto) 0.1 x10^3/uL (0.0-0.7) Basophils # (Auto) 0.0 x10^3/uL (0.0-0.2) Sodium Level 134 mmol/L (136-145) Potassium Level 5.2 mmol/L (3.5-5.1) Chloride Level 94 mmol/L (98-107) Carbon Dioxide Level 26 mmol/L (21-32) Anion Gap 14 (6-14) Blood Urea Nitrogen 62 mg/dL (8-26) Creatinine 16.2 mg/dL (0.7-1.3) Estimated GFR (Cockcroft-Gault) 4.1 Glucose Level 390 mg/dL (70-99) Calcium Level 9.5 mg/dL (8.5-10.1) Troponin I Quantitative 0.041 ng/mL (0.000-0.055) C-Reactive Protein, Quantitative 177.1 mg/L (0-3.3) Procalcitonin 94.62 ng/mL (0.00-0.10) Glucose (Fingerstick) 338 mg/dL (70-99) Laboratory Tests Test 11/29/18 18:17 11/29/18 18:46 11/29/18 22:00 11/29/18 22:28 White Blood Count 22.6 x10^3/uL (4.0-11.0) Red Blood Count 2.13 x10^6/uL (4.30-5.70) Hemoglobin 5.9 g/dL (13.0-17.5) Hematocrit 18.5 % (39.0-53.0) Mean Corpuscular Volume 87 fL (79-100) Mean Corpuscular Hemoglobin 28 pg (25-35) Mean Corpuscular Hemoglobin Concent 32 g/dL (31-37) Red Cell Distribution Width 18.5 % (11.5-14.5) Platelet Count 294 x10^3/uL (140-400) Neutrophils (%) (Auto) 90 % (31-73) Lymphocytes (%) (Auto) 4 % (24-48) Monocytes (%) (Auto) 6 % (0-9) Eosinophils (%) (Auto) 0 % (0-3) Basophils (%) (Auto) 1 % (0-3) Neutrophils # (Auto) 20.2 x10^3uL (1.8-7.7) Lymphocytes # (Auto) 0.8 x10^3/uL (1.0-4.8) Monocytes # (Auto) 1.4 x10^3/uL (0.0-1.1) Eosinophils # (Auto) 0.0 x10^3/uL (0.0-0.7) Basophils # (Auto) 0.1 x10^3/uL (0.0-0.2) Segmented Neutrophils % 70 % (35-66) Band Neutrophils % 22 % (0-9) Lymphocytes % 4 % (24-48) Monocytes % 4 % (0-10) Toxic Vacuolation Slight Platelet Estimate Adequate (ADEQUATE) Polychromasia Slight Anisocytosis Slight Microcytosis Slight Macrocytosis Slight Sodium Level 138 mmol/L (136-145) Potassium Level 4.5 mmol/L (3.5-5.1) Chloride Level 98 mmol/L (98-107) Carbon Dioxide Level 25 mmol/L (21-32) Anion Gap 15 (6-14) Blood Urea Nitrogen 56 mg/dL (8-26) Creatinine 15.4 mg/dL (0.7-1.3) Estimated GFR (Cockcroft-Gault) 4.3 BUN/Creatinine Ratio 4 (6-20) Glucose Level 184 mg/dL (70-99) Lactic Acid Level 1.0 mmol/L (0.4-2.0) 1.1 mmol/L (0.4-2.0) Calcium Level 9.6 mg/dL (8.5-10.1) Total Bilirubin 0.5 mg/dL (0.2-1.0) Aspartate Amino Transf (AST/SGOT) 20 U/L (15-37) Alanine Aminotransferase (ALT/SGPT) 30 U/L (16-63) Alkaline Phosphatase 119 U/L (46-116) Troponin I Quantitative 0.067 ng/mL (0.000-0.055) 0.053 ng/mL (0.000-0.055) WJ-Qtd-K-Type Natriuretic Peptide > 53322 pg/mL (0-124) Total Protein 6.1 g/dL (6.4-8.2) Albumin 2.7 g/dL (3.4-5.0) Albumin/Globulin Ratio 0.8 (1.0-1.7) Procalcitonin 53.22 ng/mL (0.00-0.10) Influenza Type A Antigen Negative (NEGATIVE) Influenza Type B Antigen Negative (NEGATIVE) Glucose (Fingerstick) 314 mg/dL (70-99) Test 11/30/18 03:00 11/30/18 08:08 White Blood Count 21.9 x10^3/uL (4.0-11.0) Red Blood Count 2.44 x10^6/uL (4.30-5.70) Hemoglobin 6.9 g/dL (13.0-17.5) Hematocrit 21.5 % (39.0-53.0) Mean Corpuscular Volume 88 fL (79-100) Mean Corpuscular Hemoglobin 28 pg (25-35) Mean Corpuscular Hemoglobin Concent 32 g/dL (31-37) Red Cell Distribution Width 19.0 % (11.5-14.5) Platelet Count 330 x10^3/uL (140-400) Neutrophils (%) (Auto) 93 % (31-73) Lymphocytes (%) (Auto) 3 % (24-48) Monocytes (%) (Auto) 4 % (0-9) Eosinophils (%) (Auto) 1 % (0-3) Basophils (%) (Auto) 0 % (0-3) Neutrophils # (Auto) 20.4 x10^3uL (1.8-7.7) Lymphocytes # (Auto) 0.6 x10^3/uL (1.0-4.8) Monocytes # (Auto) 0.8 x10^3/uL (0.0-1.1) Eosinophils # (Auto) 0.1 x10^3/uL (0.0-0.7) Basophils # (Auto) 0.0 x10^3/uL (0.0-0.2) Sodium Level 134 mmol/L (136-145) Potassium Level 5.2 mmol/L (3.5-5.1) Chloride Level 94 mmol/L (98-107) Carbon Dioxide Level 26 mmol/L (21-32) Anion Gap 14 (6-14) Blood Urea Nitrogen 62 mg/dL (8-26) Creatinine 16.2 mg/dL (0.7-1.3) Estimated GFR (Cockcroft-Gault) 4.1 Glucose Level 390 mg/dL (70-99) Calcium Level 9.5 mg/dL (8.5-10.1) Troponin I Quantitative 0.041 ng/mL (0.000-0.055) C-Reactive Protein, Quantitative 177.1 mg/L (0-3.3) Procalcitonin 94.62 ng/mL (0.00-0.10) Glucose (Fingerstick) 338 mg/dL (70-99) Assessment/Plan Assessment/Plan Nonfunctioning PD catheter End-stage renal disease Anemia Diabetes Fever Leukocytosis Offered laparoscopic investigation of the catheter for possible repositioning or replacement. Excell states he has been talking with his and is considering stopping peritoneal dialysis. I have asked him to discuss this with Dr. Parks. We'll follow up if catheter needs revision or removal. Thanks for consult PONCHO STRANGE MD Nov 30, 2018 10:28
[2018-11-30] MEDS ORDERED: DEXTROSE 50% 25 GM / 50ML DISP.SYRIN. IV PRN (10:30)
[2018-11-30] MEDS: SENNOSIDES 8.6 MG TABLET PO SCH ×2 (12:09→20:41)
[2018-11-30] MEDS: POLYETHYLENE GLYCOL 3350 17 GM PACKET. PO SCH (12:09)
[2018-11-30] MEDS: DOCUSATE SODIUM 100 MG CAPSULE. PO SCH ×2 (12:09→20:40)
[2018-11-30] MEDS: LISINOPRIL 20 MG TABLET PO SCH ×2 (12:10→20:41)
[2018-11-30] MEDS: CALCITRIOL 0.25 MCG CAPSULE. PO SCH (12:10)
[2018-11-30] MEDS: CHOLECALCIFEROL (VITAMIN D3) 5,000 UNIT CAPSULE PO SCH (12:10)
[2018-11-30] MEDS: cloNIDine HCL 0.2 MG TABLET PO SCH ×2 (12:11→20:42)
[2018-11-30] MEDS: CARVEDILOL 12.5 MG TABLET. PO SCH ×2 (12:12→17:33)
[2018-11-30] MEDS: CINACALCET HCL 30 MG TABLET PO SCH (12:13)
[2018-11-30] MEDS: FOLIC/VIT B COMP W-C (RENAL) TABLET. PO SCH (12:13)
[2018-11-30] MEDS: amLODIPine BESYLATE 10 MG TABLET PO SCH (12:13)
[2018-11-30] MEDS ORDERED: PIP/TAZO PER PHARMACY MC PRN (12:15)
[2018-11-30] MEDS: INSULIN LISPRO 300 UNITS/3 ML INSULN.PEN. SQ SCH ×2 (12:24→17:40)
--- NOTE | 2018-11-30 12:27 | PDOC ---
Infectious Disease Note Vital Sign Vital Signs Vital Signs Date Time Temp Pulse Resp B/P (MAP) Pulse Ox O2 Delivery O2 Flow Rate FiO2 11/30/18 08:00 Nasal Cannula 2.0 11/30/18 07:00 99.2 91 18 153/84 (107) 95 99.2 Labs Lab Laboratory Tests Test 11/29/18 18:17 11/29/18 18:46 11/29/18 22:00 11/29/18 22:28 White Blood Count 22.6 x10^3/uL (4.0-11.0) Red Blood Count 2.13 x10^6/uL (4.30-5.70) Hemoglobin 5.9 g/dL (13.0-17.5) Hematocrit 18.5 % (39.0-53.0) Mean Corpuscular Volume 87 fL (79-100) Mean Corpuscular Hemoglobin 28 pg (25-35) Mean Corpuscular Hemoglobin Concent 32 g/dL (31-37) Red Cell Distribution Width 18.5 % (11.5-14.5) Platelet Count 294 x10^3/uL (140-400) Neutrophils (%) (Auto) 90 % (31-73) Lymphocytes (%) (Auto) 4 % (24-48) Monocytes (%) (Auto) 6 % (0-9) Eosinophils (%) (Auto) 0 % (0-3) Basophils (%) (Auto) 1 % (0-3) Neutrophils # (Auto) 20.2 x10^3uL (1.8-7.7) Lymphocytes # (Auto) 0.8 x10^3/uL (1.0-4.8) Monocytes # (Auto) 1.4 x10^3/uL (0.0-1.1) Eosinophils # (Auto) 0.0 x10^3/uL (0.0-0.7) Basophils # (Auto) 0.1 x10^3/uL (0.0-0.2) Segmented Neutrophils % 70 % (35-66) Band Neutrophils % 22 % (0-9) Lymphocytes % 4 % (24-48) Monocytes % 4 % (0-10) Toxic Vacuolation Slight Platelet Estimate Adequate (ADEQUATE) Polychromasia Slight Anisocytosis Slight Microcytosis Slight Macrocytosis Slight Sodium Level 138 mmol/L (136-145) Potassium Level 4.5 mmol/L (3.5-5.1) Chloride Level 98 mmol/L (98-107) Carbon Dioxide Level 25 mmol/L (21-32) Anion Gap 15 (6-14) Blood Urea Nitrogen 56 mg/dL (8-26) Creatinine 15.4 mg/dL (0.7-1.3) Estimated GFR (Cockcroft-Gault) 4.3 BUN/Creatinine Ratio 4 (6-20) Glucose Level 184 mg/dL (70-99) Lactic Acid Level 1.0 mmol/L (0.4-2.0) 1.1 mmol/L (0.4-2.0) Calcium Level 9.6 mg/dL (8.5-10.1) Total Bilirubin 0.5 mg/dL (0.2-1.0) Aspartate Amino Transf (AST/SGOT) 20 U/L (15-37) Alanine Aminotransferase (ALT/SGPT) 30 U/L (16-63) Alkaline Phosphatase 119 U/L (46-116) Troponin I Quantitative 0.067 ng/mL (0.000-0.055) 0.053 ng/mL (0.000-0.055) LD-Qkf-S-Type Natriuretic Peptide > 95180 pg/mL (0-124) Total Protein 6.1 g/dL (6.4-8.2) Albumin 2.7 g/dL (3.4-5.0) Albumin/Globulin Ratio 0.8 (1.0-1.7) Procalcitonin 53.22 ng/mL (0.00-0.10) Influenza Type A Antigen Negative (NEGATIVE) Influenza Type B Antigen Negative (NEGATIVE) Glucose (Fingerstick) 314 mg/dL (70-99) Test 11/30/18 03:00 11/30/18 08:08 11/30/18 10:49 White Blood Count 21.9 x10^3/uL (4.0-11.0) Red Blood Count 2.44 x10^6/uL (4.30-5.70) Hemoglobin 6.9 g/dL (13.0-17.5) Hematocrit 21.5 % (39.0-53.0) Mean Corpuscular Volume 88 fL (79-100) Mean Corpuscular Hemoglobin 28 pg (25-35) Mean Corpuscular Hemoglobin Concent 32 g/dL (31-37) Red Cell Distribution Width 19.0 % (11.5-14.5) Platelet Count 330 x10^3/uL (140-400) Neutrophils (%) (Auto) 93 % (31-73) Lymphocytes (%) (Auto) 3 % (24-48) Monocytes (%) (Auto) 4 % (0-9) Eosinophils (%) (Auto) 1 % (0-3) Basophils (%) (Auto) 0 % (0-3) Neutrophils # (Auto) 20.4 x10^3uL (1.8-7.7) Lymphocytes # (Auto) 0.6 x10^3/uL (1.0-4.8) Monocytes # (Auto) 0.8 x10^3/uL (0.0-1.1) Eosinophils # (Auto) 0.1 x10^3/uL (0.0-0.7) Basophils # (Auto) 0.0 x10^3/uL (0.0-0.2) Sodium Level 134 mmol/L (136-145) Potassium Level 5.2 mmol/L (3.5-5.1) Chloride Level 94 mmol/L (98-107) Carbon Dioxide Level 26 mmol/L (21-32) Anion Gap 14 (6-14) Blood Urea Nitrogen 62 mg/dL (8-26) Creatinine 16.2 mg/dL (0.7-1.3) Estimated GFR (Cockcroft-Gault) 4.1 Glucose Level 390 mg/dL (70-99) Calcium Level 9.5 mg/dL (8.5-10.1) Troponin I Quantitative 0.041 ng/mL (0.000-0.055) C-Reactive Protein, Quantitative 177.1 mg/L (0-3.3) Procalcitonin 94.62 ng/mL (0.00-0.10) Glucose (Fingerstick) 338 mg/dL (70-99) 159 mg/dL (70-99) Micro BLOOD CULTURE Final GRAM POSITIVE COCCI IN CLUSTERS, SUGGESTIVE OF STAPH, IN 1 OF 4 BOTTLES, TWO SETS DRAWN. Objective Assessment Sepsis POA. Procalcitonin 94.62. ? line infection GPC bacteremia (1 of 4 bottles) POA Fever PCN allergy - nausea. Has tolerated Zosyn without problem Constipation Acute diastolic CHF CKD on HD (s/p HDC 11/26; small neck wound w/ stitch in place) Malfunctioning peritoneal catheter Anemia. s/p iron Diabetes Plan Plan of Care Continue vanc and Zosyn Awaiting GPC ID/susceptibilities. Antipyretics and bowel regimen Patient and his have opted to continue peritoneal dialysis. General surgery following for possible lap exploration for PD repair/ repositioning. Monitor labs/temp D/w D/w RN Thank you [id number] addendum: a 2nd BC bottle now positive for GPC Patient seen and examined. Chart reviewed in detail. Case discussed with [employer] SUPERVISOR. Agree with above plan. TUAN REYNOLDS APRN Nov 30, 2018 12:27 KEATON STATON MD Nov 30, 2018 19:56
[2018-11-30] MEDS ORDERED: CALCIUM CARBONATE 500 MG TAB.CHEW PO PRN (13:30)
[2018-11-30] MEDS: PIPERACILLIN/TAZOBACTAM 2.25 GM in IV NORMAL SALINE 50ML 50 ML IV SCH ×2 (13:35→22:41)
[2018-11-30] MEDS ORDERED: ALBUTEROL SULFATE 2.5 MG/3 ML NEBU. NEB PRN (13:45)
--- NOTE | 2018-11-30 14:09 | HP ---
ADMIT DATE: 11/30/2018 CHIEF COMPLAINT: Fevers. HISTORY OF PRESENT ILLNESS: The patient is a pleasant 38-year-old male who has been on dialysis for 6 years. He just got a new dialysis catheter on the right last Saturday. Over the past couple of days, he has developed some low-grade fevers, rates it at 9/10. He has associated anxiety. While in the ER, he was noted to have a temperature of 102.4. It appears he might be septic. Symptoms are worse with standing. He tried taking some home meds, but that did not work. He describes it as annoying. I have discussed the case with ER physician. We are going to admit the patient, give him some IV antibiotics and consult Infectious Disease and Nephrology. PAST MEDICAL HISTORY: End-stage renal disease, on dialysis for 6 years; diabetes, hypertension, hyperlipidemia, carpal tunnel surgery. ALLERGIES: PENICILLIN. FAMILY HISTORY: Diabetes. SOCIAL HISTORY: He does not drink, smoke or take drugs. He is . MEDICATIONS: Reviewed. He is on 21 including ProAir, Procrit, simvastatin, clonidine, carvedilol, amlodipine, lisinopril, Renvela, Lasix, fluticasone, Tums, Colace, MiraLax, senna, vitamins, Protonix, insulin, Sensipar. REVIEW OF SYSTEMS: GENERAL: He complains of fevers. SKIN: No bruising, hair changes or rashes. EYES: No blurred, double or loss of vision. NOSE AND THROAT: No history of nosebleeds, hoarseness or sore throat. HEART: No history of palpitations, chest pain or shortness of breath on exertion. LUNGS: Denies cough, hemoptysis, wheezing or shortness of breath. GASTROINTESTINAL: Denies changes in appetite, nausea, vomiting, diarrhea or constipation. GENITOURINARY: No history of frequency, urgency, hesitancy or nocturia. NEUROLOGIC: Denies history of numbness, tingling, tremor or weakness. PSYCHIATRIC: No history of panic, anxiety or depression. ENDOCRINE: No history of heat or cold intolerance, polyuria or polydipsia. EXTREMITIES: Denies muscle weakness, joint pain, pain on walking or stiffness. PHYSICAL EXAMINATION: VITAL SIGNS: Temperature 101, pulse 103, respirations 18, blood pressure 142/70. GENERAL: He is alert, cooperative. His is present. She is a good support for him. HEART: Tachycardic, S1, S2. LUNGS: Clear. ABDOMEN: Soft. EXTREMITIES: Trace edema. SKIN: No rash. ENDOCRINE: No thyromegaly. LYMPHATICS: No cervical nodes. HEMATOPOIETIC: No bruising. PSYCHIATRIC: He is depressed. CHEST: He has got a right hemodialysis port. It appears to be tunneled. LABORATORY DATA: White count is 22, hemoglobin 6.9, platelets 330. Electrolytes: Sodium 134, potassium 5.2, chloride 94, bicarbonate 26, BUN 62, creatinine 16, glucose 338. Chest x-ray, moderate congestive changes. ASSESSMENT AND PLAN: Probable sepsis in a middle-aged male who has a foreign body and is on dialysis. The patient is being admitted. We will consult Dr. Parks, Dr. Gilliam, Dr. Tramaine Larose and Dr. Rodriguez. IV antibiotics. Blood cultures. Home meds. Hope to continue dialysis. Frequent labs. Full code. P.r.n. Tylenol, sliding scale insulin, p.r.n. Zofran. PROGNOSIS: Guarded. EDUARDL Gina HOLT DO DR: AURA/kiet JOB#: [id number] / [id number]
[2018-11-30] MEDS: VANCOMYCIN PER PHARMACY MC PRN ×2 (14:32→17:05)
[2018-11-30] MEDS ORDERED: VANCOMYCIN RANDOM LEVEL. MC ONE (16:00)
[2018-11-30] MEDS: PANTOPRAZOLE 40 MG TABLET.DR. PO SCH (16:21)
[2018-11-30] MEDS: FLUTICASONE 50MCG/NASAL SPRAY 16GM BOTTLE. NS SCH (16:23)
[2018-11-30] MEDS ORDERED: POLYETHYLENE GLYCOL 3350 17 GM PACKET. PO PRN (17:00)
[2018-11-30] MEDS ORDERED: PEG 3350/NA SULF,BICARB,CL/KCL 4,000 ML SOLUTION. PO ONE (18:00)
[2018-11-30] MEDS: SIMVASTATIN 20 MG TABLET PO SCH (20:40)
[2018-11-30] MEDS: INSULIN GLARGINE 300 UNITS/3 ML INSULN.PEN. SQ SCH (20:46)
[2018-11-30] MEDS ORDERED: DARBEPOETIN ALFA 60 MCG/0.3 ML DISP.SYRIN. SQ SCH (21:00)
--- NOTE | 2018-11-30 21:55 | CONS ---
DATE OF CONSULTATION: 11/30/2018 Referred by Madelin Hicks APRN. REASON FOR CONSULTATION: Fever in a dialysis patient. HISTORY OF PRESENT ILLNESS: This patient is a 38-year-old male with a history of chronic kidney disease who has been on peritoneal dialysis for about 5 years or so and previously treated for peritonitis with negative dialysate cultures. About a week ago or so, he started to have some difficulty with the PD catheter to drain. A fluoroscopic evaluation performed by IR raised a concern for possible intrapelvic adhesions. To continue dialysis, he had a tunneled HD catheter placed on November 26. The patient says he was feeling pretty good afterwards until yesterday morning when he woke up not feeling well with a fever of 102 and backache. On arrival to the ER, his temperature was 102.4. He had elevated white blood cell count of 22,600 with segs 70% and bands 22%. Procalcitonin level was 53.22 and lactic acid 1.0. BNP was greater than 35,000. A chest x-ray showed congestive changes. Blood cultures were ordered. He was given a onetime dose of vancomycin and Zosyn in the ER. ID has been asked to consult for further evaluation and antibiotic management. The patient had a dialysis earlier this morning. He says he is feeling better, but continues to run fevers as high as 103.4 since admission. He denies chills/shakes, bodyaches or sweats. He says he is most bothered by abdominal distention and discomfort for which he attributes to constipation. He had a small pebble size stool earlier and he is requesting some MiraLax. He denies nausea or vomiting. His PD catheter remains intact. He denies any drainage or redness around the insertion site. He denies having any trouble with the HD catheter. He denies cough, shortness of air or chest pain. Denies nasal/sinus congestion or sore throat. Denies rash. He had a low hemoglobin of 5.9 on admission. Since he is on a transplant list, blood products are being avoided. PAST MEDICAL HISTORY: Chronic kidney disease, on peritoneal dialysis, recently changed to hemodialysis. Diabetes. Hyperlipidemia, hypertension, sleep apnea, gastroesophageal reflux, hyperparathyroidism and anemia. PAST SURGICAL HISTORY: Carpal tunnel release, peritoneal dialysis catheter placement, hernia repair, HD catheter placement on 11/26/2018. FAMILY HISTORY: Not contributory. SOCIAL HISTORY: The patient is and lives at home. He smokes marijuana. ALLERGIES: PENICILLIN CAUSING NAUSEA. He has tolerated Zosyn without problem. MEDICATIONS: Onetime dose of vancomycin and Zosyn on 11/29/2018. MiraLax, senna, Tylenol. Other medications are available and have been reviewed on the DEC. REVIEW OF SYSTEMS: Per HPI, otherwise all other review of systems are negative. PHYSICAL EXAMINATION: VITAL SIGNS: Temperature 99.2, T-max 103.4, blood pressure 153/84, heart rate 91, respiratory rate 18, pulse oximetry is 95% on 2 liters oxygen. HEENT: Pupils are equally round, reactive. Normal conjunctivae. Oral cavity: Pharynx pink and moist. NECK: Supple. He has a small wound with a stitch in place on right-sided neck without surrounding redness or drainage. LUNGS: Clear to auscultation. HEART: S1 and S2. ABDOMEN: Distended, soft, nontender with bowel sounds present. Peritoneal dialysis catheter clean. EXTREMITIES: No gross edema or cyanosis. SKIN: Warm without generalized rash. NEUROLOGIC: Alert and oriented x 3. LINES: Right-sided tunneled HD catheter (11/26) without signs of any complications. LABORATORY DATA: Today, WBC 21.9; hemoglobin 6.9; platelets 330,000. Creatinine 16.2, BUN 62, sodium 134, potassium 5.2, glucose 390. Troponin 0.041. CRP 177.1, repeat procalcitonin 94.62. Lactic acid 1.1. Total bilirubin 0.5, AST 20, ALT 30. Influenza screen negative. Blood cultures from November 29 shows gram-positive cocci in 1 of 4 bottles. Chest x-ray shows moderate congestive changes. ASSESSMENT: 1. Sepsis present on admission, questionable line infection versus other. 2. Gram-positive cocci bacteremia, present on admission. 3. Fever. 4. PENICILLIN ALLERGY CAUSING NAUSEA. He has tolerated Zosyn without problems. 5. Constipation. 6. Acute diastolic congestive heart failure. 7. Chronic kidney disease, on hemodialysis, previously on peritoneal dialysis. Status post hemodialysis catheter placement on 11/26/2018. He has a small neck wound with a suture still in place. 8. Malfunctioning peritoneal catheter. 9. Anemia. 10. Diabetes. PLAN: Continue the vancomycin and Zosyn, renal dosing. We will follow up on GPC identification and susceptibilities. Bowel regimen per primary. The patient and his have opted to continue peritoneal dialysis. Awaiting General Surgery for a laparoscopic investigation for PD repair/repositioning. Continue to monitor laboratory values and temperature. As of this dictation, a second blood culture bottle returned positive for GPC. Thank you, Madelin Hicks APRN, for asking us to participate in this patient's care. Should you have further questions or concerns, please call. KEATON STATON MD DR: MARIANNE/kiet JOB#: [id number] / [id number]
[2018-12-01] VITALS (12 sets, daily range): BP systolic 110–152; BP diastolic 69–89
[2018-12-01] MEDS: ACETAMINOPHEN 325 MG TABLET. PO PRN ×2 (03:10→15:41)
[2018-12-01 04:57] LABS: BASO % 0 % (0-3); EOS # 0.2 x10^3/uL (0.0-0.7); EOS % 2 % (0-3); LYMPH # 0.3 x10^3/uL (1.0-4.8); LYMPH % 3 % (24-48); MEAN CORPUSCULAR HEMOGLOBIN 29 pg (25-35); MEAN CORPUSCULAR HGB CONC 33 g/dL (31-37); MEAN CORPUSCULAR VOLUME 87 fL (79-100); MONO # 0.7 x10^3/uL (0.0-1.1); MONO % 5 % (0-9); NEUT # 12.3 x10^3uL (1.8-7.7); NEUT % 90 % (31-73); PLATELET COUNT 240 x10^3/uL (140-400); RED CELL DISTRIBUTION WIDTH 19.1 % (11.5-14.5); WHITE BLOOD COUNT 13.6 x10^3/uL (4.0-11.0)
[2018-12-01 05:07] LABS: ALBUMIN 2.3 g/dL (3.4-5.0); ALBUMIN/GLOBULIN RATIO 0.6 (1.0-1.7); CALCIUM 8.7 mg/dL (8.5-10.1); CREATININE 10.7 mg/dL (0.7-1.3); GFR 6.6; POTASSIUM 4.3 mmol/L (3.5-5.1); TOTAL BILIRUBIN 0.6 mg/dL (0.2-1.0); TOTAL PROTEIN 6.4 g/dL (6.4-8.2)
[2018-12-01 05:24] LABS: HEMATOCRIT 16.6 % (39.0-53.0); HEMOGLOBIN 5.4 g/dL (13.0-17.5)
[2018-12-01] MEDS: PIPERACILLIN/TAZOBACTAM 2.25 GM in IV NORMAL SALINE 50ML 50 ML IV SCH ×3 (06:08→22:30)
[2018-12-01] MEDS: INSULIN LISPRO 300 UNITS/3 ML INSULN.PEN. SQ SCH ×3 (06:16→18:09)
[2018-12-01] MEDS ORDERED: IV NORMAL SALINE 1000ML BAG 1,000 ML IV PRN ×2 (07:00)
--- NOTE | 2018-12-01 07:12 | PDOC ---
Infectious Disease Note Subjective Subjective Feels better No F/C/S/N/V/SOA/Rash or pain. Cough better and feels [place] is working ROS ROS o/w neg Vital Sign Vital Signs Vital Signs Date Time Temp Pulse Resp B/P (MAP) Pulse Ox O2 Delivery O2 Flow Rate FiO2 12/01/18 05:45 98.6 98.6 12/01/18 03:07 92 26 152/79 (103) 91 Nasal Cannula 2.0 Physical Exam PHYSICAL EXAM GEN: Coop, NAD HEENT: Pupils are equally round, reactive. Normal conjunctivae. Oral cavity: Pharynx pink and moist. NECK: Supple. He has a small wound with a stitch in place on right-sided neck without surrounding redness or drainage. Scabbing LUNGS: Clear to auscultation. HEART: S1 and S2. ABDOMEN: Distended, soft, nontender with bowel sounds present. Peritoneal dialysis catheter clean. EXTREMITIES: No gross edema or cyanosis. SKIN: Warm without generalized rash. NEUROLOGIC: Alert and oriented x 3. LINES: Right-sided tunneled HD catheter (11/26) without signs of any complications. Labs Lab Laboratory Tests Test 11/30/18 08:08 11/30/18 10:49 11/30/18 12:04 11/30/18 16:15 Glucose (Fingerstick) 338 mg/dL (70-99) 159 mg/dL (70-99) 167 mg/dL (70-99) Random Vancomycin Level 19.2 mcg/mL Test 11/30/18 17:30 11/30/18 20:28 12/01/18 03:10 Glucose (Fingerstick) 285 mg/dL (70-99) 225 mg/dL (70-99) White Blood Count 13.6 x10^3/uL (4.0-11.0) Red Blood Count 1.90 x10^6/uL (4.30-5.70) Hemoglobin 5.4 g/dL (13.0-17.5) Hematocrit 16.6 % (39.0-53.0) Mean Corpuscular Volume 87 fL (79-100) Mean Corpuscular Hemoglobin 29 pg (25-35) Mean Corpuscular Hemoglobin Concent 33 g/dL (31-37) Red Cell Distribution Width 19.1 % (11.5-14.5) Platelet Count 240 x10^3/uL (140-400) Neutrophils (%) (Auto) 90 % (31-73) Lymphocytes (%) (Auto) 3 % (24-48) Monocytes (%) (Auto) 5 % (0-9) Eosinophils (%) (Auto) 2 % (0-3) Basophils (%) (Auto) 0 % (0-3) Neutrophils # (Auto) 12.3 x10^3uL (1.8-7.7) Lymphocytes # (Auto) 0.3 x10^3/uL (1.0-4.8) Monocytes # (Auto) 0.7 x10^3/uL (0.0-1.1) Eosinophils # (Auto) 0.2 x10^3/uL (0.0-0.7) Basophils # (Auto) 0.0 x10^3/uL (0.0-0.2) Sodium Level 138 mmol/L (136-145) Potassium Level 4.3 mmol/L (3.5-5.1) Chloride Level 98 mmol/L (98-107) Carbon Dioxide Level 29 mmol/L (21-32) Anion Gap 11 (6-14) Blood Urea Nitrogen 36 mg/dL (8-26) Creatinine 10.7 mg/dL (0.7-1.3) Estimated GFR (Cockcroft-Gault) 6.6 BUN/Creatinine Ratio 3 (6-20) Glucose Level 212 mg/dL (70-99) Calcium Level 8.7 mg/dL (8.5-10.1) Total Bilirubin 0.6 mg/dL (0.2-1.0) Aspartate Amino Transf (AST/SGOT) 108 U/L (15-37) Alanine Aminotransferase (ALT/SGPT) 136 U/L (16-63) Alkaline Phosphatase 132 U/L (46-116) Total Protein 6.4 g/dL (6.4-8.2) Albumin 2.3 g/dL (3.4-5.0) Albumin/Globulin Ratio 0.6 (1.0-1.7) Micro Microbiology 11/29/18 Blood Culture - Preliminary, Resulted NO GROWTH AFTER 1 DAY Objective Assessment Sepsis POA. Procalcitonin 94.62. ? line infection GPC bacteremia (2 of 4 bottles) POA 11/29 Leukocytosis - better Transaminitis ? sepsis Fever - curve improving PCN allergy - nausea. Has tolerated Zosyn without problem Constipation Acute diastolic CHF CKD on HD (s/p HDC 11/26; small neck wound w/ stitch in place) Malfunctioning peritoneal catheter Anemia. s/p iron Diabetes Plan Plan of Care Continue vanc and Zosyn (11/29) Awaiting GPC ID/susceptibilities. Antipyretics and bowel regimen - awaiting BM GI consulted this am Await PRBCs General surgery following for possible lap exploration for PD repair/ repositioning. Monitor labs/temp D/w D/w nursing ECHO HENNESSY MD Dec 01, 2018 07:12
[2018-12-01] MEDS: SEVELAMER CARBONATE 800 MG TABLET. PO SCH ×4 (08:00→23:09)
[2018-12-01] MEDS: POLYETHYLENE GLYCOL 3350 17 GM PACKET. PO SCH (09:00)
[2018-12-01] MEDS: VANCOMYCIN PER PHARMACY MC PRN ×3 (09:11→15:42)
--- NOTE | 2018-12-01 09:12 | NUR ---
Pharmacy Vancomycin Dosing Note S:Consulted to monitor and dose vancomycin started 11/30/18. O:WILFRED STEVENS is a 38 year old M with Bacteremia PERITONITIS . Height: 5 feet, 10 inches Weight: 86.274636 kg [place] Body Weight: 73.00 Adjusted Body Weight: 80.60 Dosing Weight: Other Antibiotics: ZOSYN 11/29 - LABS: Last BUN: 62 Last Creatinine: 16.2 Creatinine Clearance: PREVIOUSLY ON PD, NOW HD mL/min Last WBC: 13.6 Last Procalcitonin: 94.62 (ESRD HD) Tmax (past 24 hours): 102.4 Microbiology: 11/30 GPC 2 BOTTLES BLOOD I/O: VOID Drug Levels: Last Random level: 19.2 on 11/30/18 at 1615 Last dose given 11/29/18 at 1900 Vancomycin Dosing: Loading Dose: x1 Dosing Weight: Target Trough: 15-20 A: Based on: LEVEL FROM 11/30 PRIOR TO DIALYSIS AND PT IS GETTING DIALYSIS AGAIN TODAY, P: 1. Begin Vancomycin 500MG AFTER EACH DIALYSIS 2. Follow up Random lEVEL NEEDED. 3. Pharmacy will continue to monitor, follow and adjust therapy as needed. MAYLIN GOMEZ RPH, 12/01/18 [id number]
--- NOTE | 2018-12-01 09:32 | PDOC ---
MASON NEVAREZ [employer] CLEANING MACHINE OPERATOR 12/01/18 0932: SURGICAL PROGRESS NOTE Subjective seen in dialysis reports continue plan to do PD Vital Signs Vital Signs Date Time Temp Pulse Resp B/P (MAP) Pulse Ox O2 Delivery O2 Flow Rate FiO2 12/01/18 07:42 98.3 87 18 118/71 (87) 97 Nasal Cannula 2.0 98.3 I&O Intake and Output 12/01/18 06:59 Intake Total 790 ml Balance 790 ml Intake Oral 740 ml IV Total 50 ml # Voids 3 # Bowel Movements 1 General: Alert, Oriented X3, Cooperative, No acute distress Abdomen: Soft Labs Laboratory Tests Test 11/29/18 18:17 11/29/18 18:46 11/29/18 22:00 11/29/18 22:28 White Blood Count 22.6 x10^3/uL (4.0-11.0) Red Blood Count 2.13 x10^6/uL (4.30-5.70) Hemoglobin 5.9 g/dL (13.0-17.5) Hematocrit 18.5 % (39.0-53.0) Mean Corpuscular Volume 87 fL (79-100) Mean Corpuscular Hemoglobin 28 pg (25-35) Mean Corpuscular Hemoglobin Concent 32 g/dL (31-37) Red Cell Distribution Width 18.5 % (11.5-14.5) Platelet Count 294 x10^3/uL (140-400) Neutrophils (%) (Auto) 90 % (31-73) Lymphocytes (%) (Auto) 4 % (24-48) Monocytes (%) (Auto) 6 % (0-9) Eosinophils (%) (Auto) 0 % (0-3) Basophils (%) (Auto) 1 % (0-3) Neutrophils # (Auto) 20.2 x10^3uL (1.8-7.7) Lymphocytes # (Auto) 0.8 x10^3/uL (1.0-4.8) Monocytes # (Auto) 1.4 x10^3/uL (0.0-1.1) Eosinophils # (Auto) 0.0 x10^3/uL (0.0-0.7) Basophils # (Auto) 0.1 x10^3/uL (0.0-0.2) Segmented Neutrophils % 70 % (35-66) Band Neutrophils % 22 % (0-9) Lymphocytes % 4 % (24-48) Monocytes % 4 % (0-10) Toxic Vacuolation Slight Platelet Estimate Adequate (ADEQUATE) Polychromasia Slight Anisocytosis Slight Microcytosis Slight Macrocytosis Slight Sodium Level 138 mmol/L (136-145) Potassium Level 4.5 mmol/L (3.5-5.1) Chloride Level 98 mmol/L (98-107) Carbon Dioxide Level 25 mmol/L (21-32) Anion Gap 15 (6-14) Blood Urea Nitrogen 56 mg/dL (8-26) Creatinine 15.4 mg/dL (0.7-1.3) Estimated GFR (Cockcroft-Gault) 4.3 BUN/Creatinine Ratio 4 (6-20) Glucose Level 184 mg/dL (70-99) Lactic Acid Level 1.0 mmol/L (0.4-2.0) 1.1 mmol/L (0.4-2.0) Calcium Level 9.6 mg/dL (8.5-10.1) Total Bilirubin 0.5 mg/dL (0.2-1.0) Aspartate Amino Transf (AST/SGOT) 20 U/L (15-37) Alanine Aminotransferase (ALT/SGPT) 30 U/L (16-63) Alkaline Phosphatase 119 U/L (46-116) Troponin I Quantitative 0.067 ng/mL (0.000-0.055) 0.053 ng/mL (0.000-0.055) [id number]-Type Natriuretic Peptide > 48761 pg/mL (0-124) Total Protein 6.1 g/dL (6.4-8.2) Albumin 2.7 g/dL (3.4-5.0) Albumin/Globulin Ratio 0.8 (1.0-1.7) Procalcitonin 53.22 ng/mL (0.00-0.10) Influenza Type A Antigen Negative (NEGATIVE) Influenza Type B Antigen Negative (NEGATIVE) Glucose (Fingerstick) 314 mg/dL (70-99) Test 11/30/18 03:00 11/30/18 08:08 11/30/18 10:49 11/30/18 12:04 White Blood Count 21.9 x10^3/uL (4.0-11.0) Red Blood Count 2.44 x10^6/uL (4.30-5.70) Hemoglobin 6.9 g/dL (13.0-17.5) Hematocrit 21.5 % (39.0-53.0) Mean Corpuscular Volume 88 fL (79-100) Mean Corpuscular Hemoglobin 28 pg (25-35) Mean Corpuscular Hemoglobin Concent 32 g/dL (31-37) Red Cell Distribution Width 19.0 % (11.5-14.5) Platelet Count 330 x10^3/uL (140-400) Neutrophils (%) (Auto) 93 % (31-73) Lymphocytes (%) (Auto) 3 % (24-48) Monocytes (%) (Auto) 4 % (0-9) Eosinophils (%) (Auto) 1 % (0-3) Basophils (%) (Auto) 0 % (0-3) Neutrophils # (Auto) 20.4 x10^3uL (1.8-7.7) Lymphocytes # (Auto) 0.6 x10^3/uL (1.0-4.8) Monocytes # (Auto) 0.8 x10^3/uL (0.0-1.1) Eosinophils # (Auto) 0.1 x10^3/uL (0.0-0.7) Basophils # (Auto) 0.0 x10^3/uL (0.0-0.2) Sodium Level 134 mmol/L (136-145) Potassium Level 5.2 mmol/L (3.5-5.1) Chloride Level 94 mmol/L (98-107) Carbon Dioxide Level 26 mmol/L (21-32) Anion Gap 14 (6-14) Blood Urea Nitrogen 62 mg/dL (8-26) Creatinine 16.2 mg/dL (0.7-1.3) Estimated GFR (Cockcroft-Gault) 4.1 Glucose Level 390 mg/dL (70-99) Calcium Level 9.5 mg/dL (8.5-10.1) Troponin I Quantitative 0.041 ng/mL (0.000-0.055) C-Reactive Protein, Quantitative 177.1 mg/L (0-3.3) Procalcitonin 94.62 ng/mL (0.00-0.10) Glucose (Fingerstick) 338 mg/dL (70-99) 159 mg/dL (70-99) 167 mg/dL (70-99) Test 11/30/18 16:15 11/30/18 17:30 11/30/18 20:28 12/01/18 03:10 Random Vancomycin Level 19.2 mcg/mL Glucose (Fingerstick) 285 mg/dL (70-99) 225 mg/dL (70-99) White Blood Count 13.6 x10^3/uL (4.0-11.0) Red Blood Count 1.90 x10^6/uL (4.30-5.70) Hemoglobin 5.4 g/dL (13.0-17.5) Hematocrit 16.6 % (39.0-53.0) Mean Corpuscular Volume 87 fL (79-100) Mean Corpuscular Hemoglobin 29 pg (25-35) Mean Corpuscular Hemoglobin Concent 33 g/dL (31-37) Red Cell Distribution Width 19.1 % (11.5-14.5) Platelet Count 240 x10^3/uL (140-400) Neutrophils (%) (Auto) 90 % (31-73) Lymphocytes (%) (Auto) 3 % (24-48) Monocytes (%) (Auto) 5 % (0-9) Eosinophils (%) (Auto) 2 % (0-3) Basophils (%) (Auto) 0 % (0-3) Neutrophils # (Auto) 12.3 x10^3uL (1.8-7.7) Lymphocytes # (Auto) 0.3 x10^3/uL (1.0-4.8) Monocytes # (Auto) 0.7 x10^3/uL (0.0-1.1) Eosinophils # (Auto) 0.2 x10^3/uL (0.0-0.7) Basophils # (Auto) 0.0 x10^3/uL (0.0-0.2) Sodium Level 138 mmol/L (136-145) Potassium Level 4.3 mmol/L (3.5-5.1) Chloride Level 98 mmol/L (98-107) Carbon Dioxide Level 29 mmol/L (21-32) Anion Gap 11 (6-14) Blood Urea Nitrogen 36 mg/dL (8-26) Creatinine 10.7 mg/dL (0.7-1.3) Estimated GFR (Cockcroft-Gault) 6.6 BUN/Creatinine Ratio 3 (6-20) Glucose Level 212 mg/dL (70-99) Calcium Level 8.7 mg/dL (8.5-10.1) Total Bilirubin 0.6 mg/dL (0.2-1.0) Aspartate Amino Transf (AST/SGOT) 108 U/L (15-37) Alanine Aminotransferase (ALT/SGPT) 136 U/L (16-63) Alkaline Phosphatase 132 U/L (46-116) Total Protein 6.4 g/dL (6.4-8.2) Albumin 2.3 g/dL (3.4-5.0) Albumin/Globulin Ratio 0.6 (1.0-1.7) Test 12/01/18 07:15 Glucose (Fingerstick) 309 mg/dL (70-99) Laboratory Tests Test 11/30/18 10:49 11/30/18 12:04 11/30/18 16:15 11/30/18 17:30 Glucose (Fingerstick) 159 mg/dL (70-99) 167 mg/dL (70-99) 285 mg/dL (70-99) Random Vancomycin Level 19.2 mcg/mL Test 11/30/18 20:28 12/01/18 03:10 12/01/18 07:15 Glucose (Fingerstick) 225 mg/dL (70-99) 309 mg/dL (70-99) White Blood Count 13.6 x10^3/uL (4.0-11.0) Red Blood Count 1.90 x10^6/uL (4.30-5.70) Hemoglobin 5.4 g/dL (13.0-17.5) Hematocrit 16.6 % (39.0-53.0) Mean Corpuscular Volume 87 fL (79-100) Mean Corpuscular Hemoglobin 29 pg (25-35) Mean Corpuscular Hemoglobin Concent 33 g/dL (31-37) Red Cell Distribution Width 19.1 % (11.5-14.5) Platelet Count 240 x10^3/uL (140-400) Neutrophils (%) (Auto) 90 % (31-73) Lymphocytes (%) (Auto) 3 % (24-48) Monocytes (%) (Auto) 5 % (0-9) Eosinophils (%) (Auto) 2 % (0-3) Basophils (%) (Auto) 0 % (0-3) Neutrophils # (Auto) 12.3 x10^3uL (1.8-7.7) Lymphocytes # (Auto) 0.3 x10^3/uL (1.0-4.8) Monocytes # (Auto) 0.7 x10^3/uL (0.0-1.1) Eosinophils # (Auto) 0.2 x10^3/uL (0.0-0.7) Basophils # (Auto) 0.0 x10^3/uL (0.0-0.2) Sodium Level 138 mmol/L (136-145) Potassium Level 4.3 mmol/L (3.5-5.1) Chloride Level 98 mmol/L (98-107) Carbon Dioxide Level 29 mmol/L (21-32) Anion Gap 11 (6-14) Blood Urea Nitrogen 36 mg/dL (8-26) Creatinine 10.7 mg/dL (0.7-1.3) Estimated GFR (Cockcroft-Gault) 6.6 BUN/Creatinine Ratio 3 (6-20) Glucose Level 212 mg/dL (70-99) Calcium Level 8.7 mg/dL (8.5-10.1) Total Bilirubin 0.6 mg/dL (0.2-1.0) Aspartate Amino Transf (AST/SGOT) 108 U/L (15-37) Alanine Aminotransferase (ALT/SGPT) 136 U/L (16-63) Alkaline Phosphatase 132 U/L (46-116) Total Protein 6.4 g/dL (6.4-8.2) Albumin 2.3 g/dL (3.4-5.0) Albumin/Globulin Ratio 0.6 (1.0-1.7) Problem List Problems Medical Problems: (1) Abnormal EKG Status: Acute (2) Elevated troponin Status: Acute (3) End stage renal disease Status: Acute (4) Fever Status: Acute Assessment/Plan will review with Dr Strange may need repositioning of PD PONCHO Burger MD 12/01/18 3416: SURGICAL PROGRESS NOTE Assessment/Plan pt seen and examined spoke with him and his plan for l/s eval of PD cath, primary repair umbilical hernia R/B/A explained MASON NEVAREZ APRN Dec 01, 2018 09:32 PONCHO STRANGE MD Dec 01, 2018 16:29
--- NOTE | 2018-12-01 09:37 | PDOC2 ---
CONSULT Date of Consult Date of Consult DATE: 12/01/18 TIME: 09:29 Reason for consultation: Anemia Consult: Hematology oncology, Dr. Carol Villafuerte History of present illness: Patient is a 38-year-old man who has a history of type 1 diabetes, hypertension, end-stage renal disease, typically on peritoneal dialysis, and pending kidney and pancreas transplant with new diagnosis of CHF who is admitted with anemia to a hemoglobin of 5.4, chronic, worsening due to comorbidities, improved with epo and iron, and associated with fatigue, getting two unit transfusion today. Did get 200 mg of iron sucrose 1 while here. Doesn' t tolerate oral iron well due to constipation. Admitted with concern for sepsis , cough, constipation, and is on broad-spectrum antibiotics with plans for peritoneal dialysis catheter repair tomorrow. Getting temporary hemodialysis in the meantime. Past medical history: Diabetes mellitus type 1 Hypertension End-stage renal disease on dialysis Pending kidney pancreas transplant Heart failure Past surgical history: Umbilical hernia repair Carpal tunnel release Hemodialysis catheter placement right neck currently Peritoneal dialysis catheter placement Allergies: Penicillin Medications: See attached list Social history: , history of marijuana in the past reported Family history: Coronary artery disease, prostate cancer, thyroid cancer Review of systems: Constipation, fatigue, diarrhea related to medications, weight loss since he's been sick, chest pain better since admission, headaches with dialysis, not making any urine since on hemodialysis, otherwise 10 point review of systems negative Physical exam: Vitals reviewed Gen.: well-developed in no acute distress HEENT: mucous membranes moist, head normocephalic atraumatic Neck: Supple, no lymphadenopathy Lymph nodes: No palpable lymphadenopathy neck or axilla Lungs: Breathing comfortably on NCO2, no evidence of respiratory distress Abdomen: Soft, nontender, nondistended, PD cath at lower abdomen Extremities: No cyanosis, mild BLE edema Skin: No obvious rashes, w/ dry skin Neuro: Alert and oriented 3 Psych: Normal mood and affect Lab reviewed: White count 13.6, hemoglobin 5.4, platelets 240, MCV of 87 Creatinine 10.7 T bili normal with AST 108 and ALT of 136 and alkaline phosphatase of 132 Influenza negative Rads reviewed: Chest x-ray with moderate congestive changes Case discussed with: Patient and his , records reviewed in [facility] and [facility] , including labs and radiology, please see note for summary details. Assessment and Plan: He is a 38-year-old man with anemia, admission for concern for sepsis with gram-positive cocci noted in blood cultures on 11/29, improving on antibiotics, getting 2 unit transfusion today, as well he is on Aranesp and has received some IV Iron while here. Kidney failure: Dialysis per nephro Peritoneal dialysis catheter malfunctioning: Pending repair tomorrow it sounds like Anemia: Pending 2 unit transfusion, is on Aranesp 60 g weekly and has had 200 mg of IV iron sucrose 1, he did have an iron sat of 12% and ferritin of 574 on 15 October 2018 [facility] labs, IV iron can be continued per nephro as needed, for now we'll continue the Aranesp, does not want oral iron due to constipation, checking other labs on anemia differential as well Infection: On broad-spectrum antibiotics improving Thank you kindly for this consultation, and please do not hesitate to call with any further questions. Past Medical History Cardiovascular: HTN Heme/Onc: Anemia NOS Renal/: Chronic renal failure Endocrine: Diabetes, Hyperparathyroidism Past Surgical History Past Surgical History: Hernia Repair, Other (replacement peritoneal dialysis catheter, placement of a tunneled hemodialysis catheter) Family History Family History: No Significant Social History No ALCOHOL: none Drugs: None Lives: with Family Current Problem List Problem List Problems Medical Problems: (1) Abnormal EKG Status: Acute (2) Elevated troponin Status: Acute (3) End stage renal disease Status: Acute (4) Fever Status: Acute Current Medications Current Medications Current Medications Vancomycin HCl (Vanco Per Pharmacy) 1 each 1X ONCE MC ; Start 11/29/18 at 18:15 ; Stop 11/29/18 at 18:24; Status DC Piperacillin Sod/ Tazobactam Sod 3.375 gm/Sodium Chloride 50 ml @ 100 mls/hr 1X ONCE IV Last administered on 11/29/18at 18:45; Start 11/29/18 at 18:15; Stop 11/29/18 at 18:44; Status DC Ondansetron HCl (Zofran) 4 mg 1X ONCE IV Last administered on 11/29/18at 18:43 ; Start 11/29/18 at 18:15; Stop 11/29/18 at 18:23; Status DC Vancomycin HCl 2 gm/Sodium Chloride 500 ml @ 250 mls/hr 1X ONCE IV Last administered on 11/29/18at 18:46; Start 11/29/18 at 19:00; Stop 11/29/18 at 20:59 ; Status DC Iron Sucrose 200 mg/Sodium Chloride 110 ml @ 55 mls/hr 1X ONCE IV Last administered on 11/29/18at 22:20; Start 11/29/18 at 19:15; Stop 11/29/18 at 21:14 ; Status DC Ondansetron HCl (Zofran) 4 mg PRN Q8HRS PRN IV NAUSEA/VOMITING; Start 11/29/18 at 19:30; Stop 11/29/18 at 19:36; Status DC Fentanyl Citrate (Fentanyl 2ml Vial) 50 mcg PRN Q1HR PRN IV PAIN Last administered on 11/30/18at 16:23; Start 11/29/18 at 19:30; Stop 11/30/18 at 19:29 ; Status DC Acetaminophen (Tylenol) 650 mg PRN Q4HRS PRN PO FEVER Last administered on 11/30at 17:35; Start 11/29/18 at 19:30; Stop 11/30/18 at 19:29; Status DC Ondansetron HCl (Zofran) 4 mg PRN Q6HRS PRN IV NAUSEA/VOMITING; Start 11/29/18 at 19:45 Amlodipine Besylate (Norvasc) 10 mg DAILY PO Last administered on 11/30/18at 12: 13; Start 11/30/18 at 09:00 Clonidine HCl (Catapres) 0.2 mg BID PO Last administered on 11/30/18at 20:42; Start 11/29/18 at 21:00 Docusate Sodium (Colace) 100 mg BID PO Last administered on 11/30/18at 20:40; Start 11/29/18 at 21:00 Furosemide (Lasix) 80 mg BID92 PO Last administered on 11/30/18at 13:35; Start 11/29/18 at 20:00 Insulin Glargine (Lantus) 32 units HS SQ Last administered on 11/30/18at 20:46; Start 11/29/18 at 21:00 Lisinopril (Prinivil) 40 mg BID PO Last administered on 11/30/18at 20:41; Start 11/29/18 at 21:00 Sevelamer Carbonate (Renvela) 4,000 mg TIDWMEALS PO Last administered on 17:36; Start 11/30/18 at 08:00 Calcitriol (Rocaltrol) 0.25 mcg DAILY PO Last administered on 11/30/18 12:10; Start 11/30/18 at 09:00 Carvedilol (Coreg) 12.5 mg BIDWMEALS PO Last administered on 11/30/18 17:33; Start 11/30/18 at 08:00 Vitamin D (Vitamin D3) 5,000 unit DAILY PO Last administered on 11/30/18 12:10 ; Start 11/30/18 at 09:00 Cinacalcet (Sensipar) 60 mg DAILY PO Last administered on 11/30/18 12:13; Start 11/30/18 at 09:00 Polyethylene Glycol (miraLAX PACKET) 17 gm DAILY PO Last administered on 12:09; Start 11/30/18 at 09:00 Sennosides (Senna) 8.6 mg BID PO Last administered on 11/30/18at 20:41; Start at 21:00 Simvastatin (Zocor) 20 mg HS PO Last administered on 11/30/18at 20:40; Start at 21:00 Vitamin B Complex/ Vitamin C (Johanna-Celia) 1 tab DAILY PO Last administered on 12:13; Start 11/30/18 at 09:00 Insulin Human Lispro (HumaLOG) 0-9 UNITS TIDWMEALS SQ Last administered on 11/29at 22:44; Start 11/30/18 at 08:00; Stop 11/30/18 at 10:28; Status DC Dextrose (Dextrose 50%-Water Syringe) 12.5 gm PRN Q15MIN PRN IV SEE COMMENTS; Start 11/29/18 at 19:45 Aspirin (Anshul Aspirin) 325 mg 1X ONCE PO Last administered on 11/29/18at 20:19 ; Start 11/29/18 at 19:45; Stop 11/29/18 at 19:46; Status DC Labetalol HCl (Normodyne Iv Push) 10 mg PRN Q2HR PRN IVP HYPERTENSION, SEE COMMENTS Last administered on 11/30/18at 04:17; Start 11/30/18 at 04:00 Sodium Chloride 1,000 ml @ 100 mls/hr 1X ONCE IV Last administered on at 04:17; Start 11/30/18 at 04:30; Stop 11/30/18 at 05:57; Status DC Darbepoetin David (Aranesp) 100 mcg 1X ONCE SQ Last administered on 11/30/18at 06:06; Start 11/30/18 at 07:00; Stop 11/30/18 at 07:01; Status DC Sodium Chloride 1,000 ml @ 1,000 mls/hr Q1H PRN IV hypotension; Start 11/30/18 at 07:34; Stop 11/30/18 at 13:39; Status DC Albumin Human 200 ml @ 200 mls/hr 1X PRN PRN IV Hypotension; Start 11/30/18 at 07:45; Stop 11/30/18 at 13:44; Status DC Diphenhydramine HCl (Benadryl) 25 mg 1X PRN PRN IV ITCHING; Start 11/30/18 at 07:45; Stop 12/01/18 at 07:44; Status DC Sodium Chloride 1,000 ml @ 400 mls/hr Q2H30M PRN IV PATENCY; Start 11/30/18 at 07:34; Stop 11/30/18 at 19:33; Status DC Info (PHARMACY MONITORING -- do not chart) 1 each PRN DAILY PRN MC SEE COMMENTS ; Start 11/30/18 at 07:45 Info (PHARMACY MONITORING -- do not chart) 1 each PRN DAILY PRN MC SEE COMMENTS ; Start 11/30/18 at 07:45; Status UNV Darbepoetin David (Aranesp) 60 mcg WEEKLYHS SQ ; Start 11/30/18 at 21:00; Stop at 21:00; Status DC Darbepoetin David (Aranesp) 60 mcg WEEKLYHS SQ ; Start 12/07/18 at 21:00 Insulin Human Lispro (HumaLOG) 0-9 UNITS TIDWMEALS SQ Last administered on 12/01at 06:16; Start 11/30/18 at 12:00 Dextrose (Dextrose 50%-Water Syringe) 12.5 gm PRN Q15MIN PRN IV SEE COMMENTS; Start 11/30/18 at 10:30; Status UNV Vancomycin HCl (Vanco Per Pharmacy) 1 each PRN DAILY PRN MC SEE COMMENTS Last administered on 12/01/18at 09:11; Start 11/30/18 at 12:15 Piperacillin Sod/ Tazobactam Sod (Zosyn Per Pharmacy) 1 each PRN DAILY PRN MC SEE COMMENTS; Start 11/30/18 at 12:15 Piperacillin Sod/ Tazobactam Sod 2.25 gm/Sodium Chloride 50 ml @ 100 mls/hr Q8HRS IV Last administered on 12/01/18at 06:08; Start 11/30/18 at 13:00 Calcium Carbonate/ Glycine (Tums) 500 mg PRN BID PRN PO INDIGESTION; Start at 13:30 Albuterol Sulfate (Ventolin Neb Soln) 2.5 mg PRN Q6HRS PRN NEB SHORTNESS OF BREATH; Start 11/30/18 at 13:45 Non-Formulary Medication (Epoetin David (Procrit)) 10,000 unit WEEKLY IJ ; Start 12/07/18 at 09:00; Stop 12/07/18 at 09:00; Status DC Fluticasone Propionate (Flonase) 2 spray DAILY NS Last administered on at 16:23; Start 11/30/18 at 14:00 Pantoprazole Sodium (Protonix) 40 mg DAILYAC PO Last administered on 11/30/18at 16:21; Start 11/30/18 at 14:00 Vancomycin HCl (Vancomycin Random Level) 1 each 1X ONCE MC Last administered on 11/30/18at 16:00; Start 11/30/18 at 16:00; Stop 11/30/18 at 16:01; Status DC Sodium Cl/Sod Bicarb/Potass Cl/ PEG (Golytely) 4,000 ml 1X ONCE PO Last administered on 11/30/18at 17:33; Start 11/30/18 at 18:00; Stop 11/30/18 at 18:01 ; Status DC Polyethylene Glycol (miraLAX PACKET) 17 gm PRN DAILY PRN PO CONSTIPATION; Start 11/30/18 at 17:00 Acetaminophen (Tylenol) 650 mg PRN Q4HRS PRN PO FEVER Last administered on 12/01at 03:10; Start 11/30/18 at 20:15 Vancomycin HCl 500 mg/Sodium Chloride 100 ml @ 100 mls/hr QMWF IV ; Start 12/01 at 16:00 Active Scripts Active Reported Protonix (Pantoprazole Sodium) 20 Mg Tablet.dr 2 Tab PO DAILY Flonase Allergy Relief (Fluticasone Propionate) 9.9 Ml [place].susp 2 Sprays NS DAILY Procrit (Epoetin David) 10,000 Unit/1 Ml Vial 10,000 Unit IJ WEEKLY Tums (Calcium Carbonate) 200 Mg Tab.chew 200 Mg PO BID PRN Proair Respiclick (Albuterol Sulfate) 90 Mcg Aer.pow.ba 1-2 Puff IH PRN Q6HRS PRN Senna (Sennosides) 8.6 Mg Tablet 8.6 Mg PO BID Miralax (Polyethylene Glycol 3350) 17 Gm Powd.pack 1 Packet PO DAILY Colace (Docusate Sodium) 100 Mg Capsule 1 Cap PO BID Carvedilol 25 Mg Tablet 25 Mg PO BIDWMEALS Renvela (Sevelamer Carbonate) 800 Mg Tablet 5 Tab PO TIDWMEALS Furosemide 80 Mg Tablet 1 Tab PO BID Vitamin D (Cholecalciferol (Vitamin D3)) 5,000 Unit Tablet 5,000 Unit PO DAILY Calcitriol 0.25 Mcg Capsule 2 Cap PO DAILY Clonidine Hcl 0.2 Mg Tablet 1 Tab PO BID Johanna-Celia Rx Tablet (Vit B Cmplx 3/Fa/Vit C/Biotin) 1 Each Tablet 1 Each PO DAILY Sensipar (Cinacalcet Hcl) 60 Mg Tablet 60 Mg PO DAILY Amlodipine Besylate 10 Mg Tablet 10 Mg PO DAILY Simvastatin 20 Mg Tablet 20 Mg PO HS Lisinopril 40 Mg Tablet 1 Tab PO BID Novolog (Insulin Aspart) 100 Unit/1 Ml Vial 100 Unit SQ sliding scale Lantus Solostar (Insulin Glargine,Hum.rec.anlog) 100 Unit/1 Ml Insuln.pen 15 Unit SQ HS Allergies Allergies: Coded Allergies: Penicillins (Verified Adverse Reaction, Mild, Nausea, 12/23/17) Vitals VITALS Vital Signs Date Time Temp Pulse Resp B/P (MAP) Pulse Ox O2 Delivery O2 Flow Rate FiO2 12/01/18 07:42 98.3 87 18 118/71 (87) 97 Nasal Cannula 2.0 98.3 Labs Labs Laboratory Tests Test 11/29/18 18:17 11/29/18 18:46 11/29/18 22:00 11/29/18 22:28 White Blood Count 22.6 x10^3/uL (4.0-11.0) Red Blood Count 2.13 x10^6/uL (4.30-5.70) Hemoglobin 5.9 g/dL (13.0-17.5) Hematocrit 18.5 % (39.0-53.0) Mean Corpuscular Volume 87 fL (79-100) Mean Corpuscular Hemoglobin 28 pg (25-35) Mean Corpuscular Hemoglobin Concent 32 g/dL (31-37) Red Cell Distribution Width 18.5 % (11.5-14.5) Platelet Count 294 x10^3/uL (140-400) Neutrophils (%) (Auto) 90 % (31-73) Lymphocytes (%) (Auto) 4 % (24-48) Monocytes (%) (Auto) 6 % (0-9) Eosinophils (%) (Auto) 0 % (0-3) Basophils (%) (Auto) 1 % (0-3) Neutrophils # (Auto) 20.2 x10^3uL (1.8-7.7) Lymphocytes # (Auto) 0.8 x10^3/uL (1.0-4.8) Monocytes # (Auto) 1.4 x10^3/uL (0.0-1.1) Eosinophils # (Auto) 0.0 x10^3/uL (0.0-0.7) Basophils # (Auto) 0.1 x10^3/uL (0.0-0.2) Segmented Neutrophils % 70 % (35-66) Band Neutrophils % 22 % (0-9) Lymphocytes % 4 % (24-48) Monocytes % 4 % (0-10) Toxic Vacuolation Slight Platelet Estimate Adequate (ADEQUATE) Polychromasia Slight Anisocytosis Slight Microcytosis Slight Macrocytosis Slight Sodium Level 138 mmol/L (136-145) Potassium Level 4.5 mmol/L (3.5-5.1) Chloride Level 98 mmol/L (98-107) Carbon Dioxide Level 25 mmol/L (21-32) Anion Gap 15 (6-14) Blood Urea Nitrogen 56 mg/dL (8-26) Creatinine 15.4 mg/dL (0.7-1.3) Estimated GFR (Cockcroft-Gault) 4.3 BUN/Creatinine Ratio 4 (6-20) Glucose Level 184 mg/dL (70-99) Lactic Acid Level 1.0 mmol/L (0.4-2.0) 1.1 mmol/L (0.4-2.0) Calcium Level 9.6 mg/dL (8.5-10.1) Total Bilirubin 0.5 mg/dL (0.2-1.0) Aspartate Amino Transf (AST/SGOT) 20 U/L (15-37) Alanine Aminotransferase (ALT/SGPT) 30 U/L (16-63) Alkaline Phosphatase 119 U/L (46-116) Troponin I Quantitative 0.067 ng/mL (0.000-0.055) 0.053 ng/mL (0.000-0.055) UT-Yze-Z-Type Natriuretic Peptide > 93770 pg/mL (0-124) Total Protein 6.1 g/dL (6.4-8.2) Albumin 2.7 g/dL (3.4-5.0) Albumin/Globulin Ratio 0.8 (1.0-1.7) Procalcitonin 53.22 ng/mL (0.00-0.10) Influenza Type A Antigen Negative (NEGATIVE) Influenza Type B Antigen Negative (NEGATIVE) Glucose (Fingerstick) 314 mg/dL (70-99) Test 11/30/18 03:00 11/30/18 08:08 11/30/18 10:49 11/30/18 12:04 White Blood Count 21.9 x10^3/uL (4.0-11.0) Red Blood Count 2.44 x10^6/uL (4.30-5.70) Hemoglobin 6.9 g/dL (13.0-17.5) Hematocrit 21.5 % (39.0-53.0) Mean Corpuscular Volume 88 fL (79-100) Mean Corpuscular Hemoglobin 28 pg (25-35) Mean Corpuscular Hemoglobin Concent 32 g/dL (31-37) Red Cell Distribution Width 19.0 % (11.5-14.5) Platelet Count 330 x10^3/uL (140-400) Neutrophils (%) (Auto) 93 % (31-73) Lymphocytes (%) (Auto) 3 % (24-48) Monocytes (%) (Auto) 4 % (0-9) Eosinophils (%) (Auto) 1 % (0-3) Basophils (%) (Auto) 0 % (0-3) Neutrophils # (Auto) 20.4 x10^3uL (1.8-7.7) Lymphocytes # (Auto) 0.6 x10^3/uL (1.0-4.8) Monocytes # (Auto) 0.8 x10^3/uL (0.0-1.1) Eosinophils # (Auto) 0.1 x10^3/uL (0.0-0.7) Basophils # (Auto) 0.0 x10^3/uL (0.0-0.2) Sodium Level 134 mmol/L (136-145) Potassium Level 5.2 mmol/L (3.5-5.1) Chloride Level 94 mmol/L (98-107) Carbon Dioxide Level 26 mmol/L (21-32) Anion Gap 14 (6-14) Blood Urea Nitrogen 62 mg/dL (8-26) Creatinine 16.2 mg/dL (0.7-1.3) Estimated GFR (Cockcroft-Gault) 4.1 Glucose Level 390 mg/dL (70-99) Calcium Level 9.5 mg/dL (8.5-10.1) Troponin I Quantitative 0.041 ng/mL (0.000-0.055) C-Reactive Protein, Quantitative 177.1 mg/L (0-3.3) Procalcitonin 94.62 ng/mL (0.00-0.10) Glucose (Fingerstick) 338 mg/dL (70-99) 159 mg/dL (70-99) 167 mg/dL (70-99) Test 11/30/18 16:15 11/30/18 17:30 11/30/18 20:28 12/01/18 03:10 Random Vancomycin Level 19.2 mcg/mL Glucose (Fingerstick) 285 mg/dL (70-99) 225 mg/dL (70-99) White Blood Count 13.6 x10^3/uL (4.0-11.0) Red Blood Count 1.90 x10^6/uL (4.30-5.70) Hemoglobin 5.4 g/dL (13.0-17.5) Hematocrit 16.6 % (39.0-53.0) Mean Corpuscular Volume 87 fL (79-100) Mean Corpuscular Hemoglobin 29 pg (25-35) Mean Corpuscular Hemoglobin Concent 33 g/dL (31-37) Red Cell Distribution Width 19.1 % (11.5-14.5) Platelet Count 240 x10^3/uL (140-400) Neutrophils (%) (Auto) 90 % (31-73) Lymphocytes (%) (Auto) 3 % (24-48) Monocytes (%) (Auto) 5 % (0-9) Eosinophils (%) (Auto) 2 % (0-3) Basophils (%) (Auto) 0 % (0-3) Neutrophils # (Auto) 12.3 x10^3uL (1.8-7.7) Lymphocytes # (Auto) 0.3 x10^3/uL (1.0-4.8) Monocytes # (Auto) 0.7 x10^3/uL (0.0-1.1) Eosinophils # (Auto) 0.2 x10^3/uL (0.0-0.7) Basophils # (Auto) 0.0 x10^3/uL (0.0-0.2) Sodium Level 138 mmol/L (136-145) Potassium Level 4.3 mmol/L (3.5-5.1) Chloride Level 98 mmol/L (98-107) Carbon Dioxide Level 29 mmol/L (21-32) Anion Gap 11 (6-14) Blood Urea Nitrogen 36 mg/dL (8-26) Creatinine 10.7 mg/dL (0.7-1.3) Estimated GFR (Cockcroft-Gault) 6.6 BUN/Creatinine Ratio 3 (6-20) Glucose Level 212 mg/dL (70-99) Calcium Level 8.7 mg/dL (8.5-10.1) Total Bilirubin 0.6 mg/dL (0.2-1.0) Aspartate Amino Transf (AST/SGOT) 108 U/L (15-37) Alanine Aminotransferase (ALT/SGPT) 136 U/L (16-63) Alkaline Phosphatase 132 U/L (46-116) Total Protein 6.4 g/dL (6.4-8.2) Albumin 2.3 g/dL (3.4-5.0) Albumin/Globulin Ratio 0.6 (1.0-1.7) Test 12/01/18 07:15 Glucose (Fingerstick) 309 mg/dL (70-99) Laboratory Tests Test 11/30/18 10:49 11/30/18 12:04 11/30/18 16:15 11/30/18 17:30 Glucose (Fingerstick) 159 mg/dL (70-99) 167 mg/dL (70-99) 285 mg/dL (70-99) Random Vancomycin Level 19.2 mcg/mL Test 11/30/18 20:28 12/01/18 03:10 12/01/18 07:15 Glucose (Fingerstick) 225 mg/dL (70-99) 309 mg/dL (70-99) White Blood Count 13.6 x10^3/uL (4.0-11.0) Red Blood Count 1.90 x10^6/uL (4.30-5.70) Hemoglobin 5.4 g/dL (13.0-17.5) Hematocrit 16.6 % (39.0-53.0) Mean Corpuscular Volume 87 fL (79-100) Mean Corpuscular Hemoglobin 29 pg (25-35) Mean Corpuscular Hemoglobin Concent 33 g/dL (31-37) Red Cell Distribution Width 19.1 % (11.5-14.5) Platelet Count 240 x10^3/uL (140-400) Neutrophils (%) (Auto) 90 % (31-73) Lymphocytes (%) (Auto) 3 % (24-48) Monocytes (%) (Auto) 5 % (0-9) Eosinophils (%) (Auto) 2 % (0-3) Basophils (%) (Auto) 0 % (0-3) Neutrophils # (Auto) 12.3 x10^3uL (1.8-7.7) Lymphocytes # (Auto) 0.3 x10^3/uL (1.0-4.8) Monocytes # (Auto) 0.7 x10^3/uL (0.0-1.1) Eosinophils # (Auto) 0.2 x10^3/uL (0.0-0.7) Basophils # (Auto) 0.0 x10^3/uL (0.0-0.2) Sodium Level 138 mmol/L (136-145) Potassium Level 4.3 mmol/L (3.5-5.1) Chloride Level 98 mmol/L (98-107) Carbon Dioxide Level 29 mmol/L (21-32) Anion Gap 11 (6-14) Blood Urea Nitrogen 36 mg/dL (8-26) Creatinine 10.7 mg/dL (0.7-1.3) Estimated GFR (Cockcroft-Gault) 6.6 BUN/Creatinine Ratio 3 (6-20) Glucose Level 212 mg/dL (70-99) Calcium Level 8.7 mg/dL (8.5-10.1) Total Bilirubin 0.6 mg/dL (0.2-1.0) Aspartate Amino Transf (AST/SGOT) 108 U/L (15-37) Alanine Aminotransferase (ALT/SGPT) 136 U/L (16-63) Alkaline Phosphatase 132 U/L (46-116) Total Protein 6.4 g/dL (6.4-8.2) Albumin 2.3 g/dL (3.4-5.0) Albumin/Globulin Ratio 0.6 (1.0-1.7) CAROL VILLAFUERTE MD Dec 01, 2018 09:36
[2018-12-01] MEDS ORDERED: DIALYSIS PATIENT. MC PRN ×2 (10:30)
--- NOTE | 2018-12-01 11:15 | PDOC ---
SUBJECTIVE ROS Seen on Hd, no new concerns OBJECTIVE Vital Signs Vital Signs Date Time Temp Pulse Resp B/P (MAP) Pulse Ox O2 Delivery O2 Flow Rate FiO2 12/01/18 08:00 Nasal Cannula 2.0 12/01/18 07:42 98.3 87 18 118/71 (87) 97 98.3 I & 0 Intake and Output 12/01/18 06:59 Intake Total 790 ml Balance 790 ml Intake Oral 740 ml IV Total 50 ml # Voids 3 # Bowel Movements 1 PHYSICAL EXAM Physical Exam GEN: NAD HEEN: OM moist NECK: Supple CVS: S1S2, RRR RESP: CTA, No Acc. 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 Non Functioning PD catheter May need repositioning, surgery following Fever- ?Line sepsis ID on board Anemia - avoid [facility] if possible since he is a Tx candidate On Aranesp Hem following Acute Diastolic CHF- Stable, On RA DM II HTN Hyperkalemia- resolved Hyponatremia- resolved Transaminitis COMMENT/RELEVANT DATA Meds Current Medications Medications (Trade) Dose Ordered Sig/Afua Start Time Stop Time Status Last Admin Dose Admin Acetaminophen (Tylenol) 650 mg PRN Q4HRS PRN 11/30/18 20:15 12/01/18 03:10 650 MG Albumin Human 200 ml @ 200 mls/hr 1X PRN PRN 11/30/18 07:45 11/30/18 13:44 DC Albuterol Sulfate (Ventolin Neb Soln) 2.5 mg PRN Q6HRS PRN 11/30/18 13:45 Amlodipine Besylate (Norvasc) 10 mg DAILY 11/30/18 09:00 11/30/18 12:13 10 MG Aspirin (Anshul Aspirin) 325 mg 1X ONCE 11/29/18 19:45 11/29/18 19:46 DC 11/29/18 20:19 325 MG Calcitriol (Rocaltrol) 0.25 mcg DAILY 11/30/18 09:00 11/30/18 12:10 0.25 MCG Calcium Carbonate/ Glycine (Tums) 500 mg PRN BID PRN 11/30/18 13:30 Carvedilol (Coreg) 12.5 mg BIDWMEALS 11/30/18 08:00 11/30/18 17:33 12.5 MG Cinacalcet (Sensipar) 60 mg DAILY 11/30/18 09:00 11/30/18 12:13 60 MG Clonidine HCl (Catapres) 0.2 mg BID 11/29/18 21:00 11/30/18 20:42 0.2 MG Darbepoetin David (Aranesp) 60 mcg WEEKLYHS 12/07/18 21:00 Dextrose (Dextrose 50%-Water Syringe) 12.5 gm PRN Q15MIN PRN 11/30/18 10:30 UNV Diphenhydramine HCl (Benadryl) 25 mg 1X PRN PRN 11/30/18 07:45 12/01/18 07:44 DC Docusate Sodium (Colace) 100 mg BID 11/29/18 21:00 11/30/18 20:40 100 MG Fentanyl Citrate (Fentanyl 2ml Vial) 50 mcg PRN Q1HR PRN 11/29/18 19:30 11/30/18 19:29 DC 11/30/18 16:23 50 MCG Fluticasone Propionate (Flonase) 2 spray DAILY 11/30/18 14:00 11/30/18 16:23 2 SPRAY Furosemide (Lasix) 80 mg BID92 11/29/18 20:00 11/30/18 13:35 80 MG Info (PHARMACY MONITORING -- do not chart) 1 each PRN DAILY PRN 12/01/18 10:30 UNV Insulin Glargine (Lantus) 32 units HS 11/29/18 21:00 11/30/18 20:46 20 UNITS Insulin Human Lispro (HumaLOG) 0-9 UNITS TIDWMEALS 11/30/18 12:00 12/01/18 06:16 4 UNITS Iron Sucrose 200 mg/Sodium Chloride 110 ml @ 55 mls/hr 1X ONCE 11/29/18 19:15 11/29/18 21:14 DC 11/29/18 22:20 55 MLS/HR Labetalol HCl (Normodyne Iv Push) 10 mg PRN Q2HR PRN 11/30/18 04:00 11/30/18 04:17 10 MG Lisinopril (Prinivil) 40 mg BID 11/29/18 21:00 11/30/18 20:41 40 MG Non-Formulary Medication (Epoetin David (Procrit)) 10,000 unit WEEKLY 12/07/18 09:00 12/07/18 09:00 DC Ondansetron HCl (Zofran) 4 mg PRN Q6HRS PRN 11/29/18 19:45 Pantoprazole Sodium (Protonix) 40 mg DAILYAC 11/30/18 14:00 11/30/18 16:21 40 MG Piperacillin Sod/ Tazobactam Sod (Zosyn Per Pharmacy) 1 each PRN DAILY PRN 11/30/18 12:15 Piperacillin Sod/ Tazobactam Sod 2.25 gm/Sodium Chloride 50 ml @ 100 mls/hr Q8HRS 11/30/18 13:00 12/01/18 06:08 100 MLS/HR Piperacillin Sod/ Tazobactam Sod 3.375 gm/Sodium Chloride 50 ml @ 100 mls/hr 1X ONCE 11/29/18 18:15 11/29/18 18:44 DC 11/29/18 18:45 100 MLS/HR Polyethylene Glycol (miraLAX PACKET) 17 gm PRN DAILY PRN 11/30/18 17:00 Sennosides (Senna) 8.6 mg BID 11/29/18 21:00 11/30/18 20:41 8.6 MG Sevelamer Carbonate (Renvela) 4,000 mg TIDWMEALS 11/30/18 08:00 11/30/18 17:36 4,000 MG Simvastatin (Zocor) 20 mg HS 11/29/18 21:00 11/30/18 20:40 20 MG Sodium Chloride 1,000 ml @ 400 mls/hr Q2H30M PRN 12/01/18 07:00 12/01/18 18:59 Sodium Cl/Sod Bicarb/Potass Cl/ PEG (Golytely) 4,000 ml 1X ONCE 11/30/18 18:00 11/30/18 18:01 DC 11/30/18 17:33 4,000 ML Vancomycin HCl (Vanco Per Pharmacy) 1 each PRN DAILY PRN 11/30/18 12:15 12/01/18 09:11 1 EACH Vancomycin HCl (Vancomycin Random Level) 1 each 1X ONCE 11/30/18 16:00 11/30/18 16:01 DC 11/30/18 16:00 1 EACH Vancomycin HCl 500 mg/Sodium Chloride 100 ml @ 100 mls/hr QMWF 12/01/18 16:00 Vancomycin HCl 2 gm/Sodium Chloride 500 ml @ 250 mls/hr 1X ONCE 11/29/18 19:00 11/29/18 20:59 DC 11/29/18 18:46 250 MLS/HR Vitamin B Complex/ Vitamin C (Johanna-Celia) 1 tab DAILY 11/30/18 09:00 11/30/18 12:13 1 TAB Vitamin D (Vitamin D3) 5,000 unit DAILY 11/30/18 09:00 11/30/18 12:10 5,000 UNIT Lab Laboratory Tests Test 11/30/18 12:04 11/30/18 16:15 11/30/18 17:30 11/30/18 20:28 Glucose (Fingerstick) 167 mg/dL (70-99) 285 mg/dL (70-99) 225 mg/dL (70-99) Random Vancomycin Level 19.2 mcg/mL Test 12/01/18 03:10 12/01/18 07:15 White Blood Count 13.6 x10^3/uL (4.0-11.0) Red Blood Count 1.90 x10^6/uL (4.30-5.70) Hemoglobin 5.4 g/dL (13.0-17.5) Hematocrit 16.6 % (39.0-53.0) Mean Corpuscular Volume 87 fL (79-100) Mean Corpuscular Hemoglobin 29 pg (25-35) Mean Corpuscular Hemoglobin Concent 33 g/dL (31-37) Red Cell Distribution Width 19.1 % (11.5-14.5) Platelet Count 240 x10^3/uL (140-400) Neutrophils (%) (Auto) 90 % (31-73) Lymphocytes (%) (Auto) 3 % (24-48) Monocytes (%) (Auto) 5 % (0-9) Eosinophils (%) (Auto) 2 % (0-3) Basophils (%) (Auto) 0 % (0-3) Neutrophils # (Auto) 12.3 x10^3uL (1.8-7.7) Lymphocytes # (Auto) 0.3 x10^3/uL (1.0-4.8) Monocytes # (Auto) 0.7 x10^3/uL (0.0-1.1) Eosinophils # (Auto) 0.2 x10^3/uL (0.0-0.7) Basophils # (Auto) 0.0 x10^3/uL (0.0-0.2) Sodium Level 138 mmol/L (136-145) Potassium Level 4.3 mmol/L (3.5-5.1) Chloride Level 98 mmol/L (98-107) Carbon Dioxide Level 29 mmol/L (21-32) Anion Gap 11 (6-14) Blood Urea Nitrogen 36 mg/dL (8-26) Creatinine 10.7 mg/dL (0.7-1.3) Estimated GFR (Cockcroft-Gault) 6.6 BUN/Creatinine Ratio 3 (6-20) Glucose Level 212 mg/dL (70-99) Calcium Level 8.7 mg/dL (8.5-10.1) Total Bilirubin 0.6 mg/dL (0.2-1.0) Aspartate Amino Transf (AST/SGOT) 108 U/L (15-37) Alanine Aminotransferase (ALT/SGPT) 136 U/L (16-63) Alkaline Phosphatase 132 U/L (46-116) Total Protein 6.4 g/dL (6.4-8.2) Albumin 2.3 g/dL (3.4-5.0) Albumin/Globulin Ratio 0.6 (1.0-1.7) Glucose (Fingerstick) 309 mg/dL (70-99) Results All relevant outside records, renal labs, imaging studies, telemetry/EKG's were reviewed. AYANNA PEREZ MD Dec 01, 2018 11:15
--- NOTE | 2018-12-01 11:52 | PDOC ---
PROGRESS NOTES Chief Complaint Chief Complaint fever leukocytosis anemia History of Present Illness History of Present Illness pt seen and examined during hemodialysis. pt was alert, oriented, calm, and cooperative. VSS. no acute distress. 2L O2 per NC. BCx: NGTD (24 hour) tunnel HD cath site, peritoneal dialysis site. IV antibiotics (vanc, zosyn) last vanc trough: 19.2 nephrology, cardiology, ID, GenSx following. Vitals Vitals Vital Signs Date Time Temp Pulse Resp B/P (MAP) Pulse Ox O2 Delivery O2 Flow Rate FiO2 12/01/18 11:29 99.4 85 20 138/84 99.4 12/01/18 08:00 Nasal Cannula 2.0 12/01/18 07:42 97 Physical Exam Physical Exam GEN: Coop, NAD HEENT: Pupils are equally round, reactive. Normal conjunctivae. Oral cavity: Pharynx pink and moist. NECK: Supple. He has a small wound with a stitch in place on right-sided neck without surrounding redness or drainage. Scabbing LUNGS: Clear to auscultation. HEART: S1 and S2. ABDOMEN: Distended, soft, nontender with bowel sounds present. Peritoneal dialysis catheter clean. EXTREMITIES: No gross edema or cyanosis. SKIN: Warm without generalized rash. NEUROLOGIC: Alert and oriented x 3. LINES: Right-sided tunneled HD catheter (11/26) without signs of any complications. General: Alert, Oriented X3, Cooperative, No acute distress Heart: Regular rate, No murmurs Lungs: Clear Abdomen: Normal bowel sounds, Soft, No tenderness Extremities: No clubbing, No cyanosis Skin: No breakdown Labs LABS Laboratory Tests Test 11/30/18 12:04 11/30/18 16:15 11/30/18 17:30 11/30/18 20:28 Glucose (Fingerstick) 167 mg/dL (70-99) 285 mg/dL (70-99) 225 mg/dL (70-99) Random Vancomycin Level 19.2 mcg/mL Test 12/01/18 03:10 12/01/18 07:15 White Blood Count 13.6 x10^3/uL (4.0-11.0) Red Blood Count 1.90 x10^6/uL (4.30-5.70) Hemoglobin 5.4 g/dL (13.0-17.5) Hematocrit 16.6 % (39.0-53.0) Mean Corpuscular Volume 87 fL (79-100) Mean Corpuscular Hemoglobin 29 pg (25-35) Mean Corpuscular Hemoglobin Concent 33 g/dL (31-37) Red Cell Distribution Width 19.1 % (11.5-14.5) Platelet Count 240 x10^3/uL (140-400) Neutrophils (%) (Auto) 90 % (31-73) Lymphocytes (%) (Auto) 3 % (24-48) Monocytes (%) (Auto) 5 % (0-9) Eosinophils (%) (Auto) 2 % (0-3) Basophils (%) (Auto) 0 % (0-3) Neutrophils # (Auto) 12.3 x10^3uL (1.8-7.7) Lymphocytes # (Auto) 0.3 x10^3/uL (1.0-4.8) Monocytes # (Auto) 0.7 x10^3/uL (0.0-1.1) Eosinophils # (Auto) 0.2 x10^3/uL (0.0-0.7) Basophils # (Auto) 0.0 x10^3/uL (0.0-0.2) Sodium Level 138 mmol/L (136-145) Potassium Level 4.3 mmol/L (3.5-5.1) Chloride Level 98 mmol/L (98-107) Carbon Dioxide Level 29 mmol/L (21-32) Anion Gap 11 (6-14) Blood Urea Nitrogen 36 mg/dL (8-26) Creatinine 10.7 mg/dL (0.7-1.3) Estimated GFR (Cockcroft-Gault) 6.6 BUN/Creatinine Ratio 3 (6-20) Glucose Level 212 mg/dL (70-99) Calcium Level 8.7 mg/dL (8.5-10.1) Total Bilirubin 0.6 mg/dL (0.2-1.0) Aspartate Amino Transf (AST/SGOT) 108 U/L (15-37) Alanine Aminotransferase (ALT/SGPT) 136 U/L (16-63) Alkaline Phosphatase 132 U/L (46-116) Total Protein 6.4 g/dL (6.4-8.2) Albumin 2.3 g/dL (3.4-5.0) Albumin/Globulin Ratio 0.6 (1.0-1.7) Glucose (Fingerstick) 309 mg/dL (70-99) Review of Systems Review of Systems general: +fatigue, no acute distress. undergoing hemodialysis. no fever, no chills. cardiac: no murmur, arrhythmia, or chest pain. respiratory: no shortness of breath, no wheezing, no crackles/rhonchi/rales Assessment and Plan Assessmemt and Plan Assessment ESRD on HD (PD and HD cath) Anemia GPC Bacteremia (2/4) - IV antibiotics (Vanc, Zosyn); leukocytosis downward trend , no fever, no chills. Diabetes Transaminitis PCN allergy (nausea): tolerating zosyn well. Constipation Acute Diastolic CHF Plan hemodialysis continue IV vancomycin, zosyn awaiting ID susceptibility GenSx following; possible ex lap for PD repair monitor labs/vitals monitor wbc count (trending downwards) continue home meds PT/OT nephrology, carrdiology, ID, GenSx following prognosis: guarded. Comment Review of Relevant I have reviewed the following items javy (where applicable) has been applied. Labs Laboratory Tests Test 11/29/18 18:17 11/29/18 18:46 11/29/18 22:00 11/29/18 22:28 White Blood Count 22.6 x10^3/uL (4.0-11.0) Red Blood Count 2.13 x10^6/uL (4.30-5.70) Hemoglobin 5.9 g/dL (13.0-17.5) Hematocrit 18.5 % (39.0-53.0) Mean Corpuscular Volume 87 fL (79-100) Mean Corpuscular Hemoglobin 28 pg (25-35) Mean Corpuscular Hemoglobin Concent 32 g/dL (31-37) Red Cell Distribution Width 18.5 % (11.5-14.5) Platelet Count 294 x10^3/uL (140-400) Neutrophils (%) (Auto) 90 % (31-73) Lymphocytes (%) (Auto) 4 % (24-48) Monocytes (%) (Auto) 6 % (0-9) Eosinophils (%) (Auto) 0 % (0-3) Basophils (%) (Auto) 1 % (0-3) Neutrophils # (Auto) 20.2 x10^3uL (1.8-7.7) Lymphocytes # (Auto) 0.8 x10^3/uL (1.0-4.8) Monocytes # (Auto) 1.4 x10^3/uL (0.0-1.1) Eosinophils # (Auto) 0.0 x10^3/uL (0.0-0.7) Basophils # (Auto) 0.1 x10^3/uL (0.0-0.2) Segmented Neutrophils % 70 % (35-66) Band Neutrophils % 22 % (0-9) Lymphocytes % 4 % (24-48) Monocytes % 4 % (0-10) Toxic Vacuolation Slight Platelet Estimate Adequate (ADEQUATE) Polychromasia Slight Anisocytosis Slight Microcytosis Slight Macrocytosis Slight Sodium Level 138 mmol/L (136-145) Potassium Level 4.5 mmol/L (3.5-5.1) Chloride Level 98 mmol/L (98-107) Carbon Dioxide Level 25 mmol/L (21-32) Anion Gap 15 (6-14) Blood Urea Nitrogen 56 mg/dL (8-26) Creatinine 15.4 mg/dL (0.7-1.3) Estimated GFR (Cockcroft-Gault) 4.3 BUN/Creatinine Ratio 4 (6-20) Glucose Level 184 mg/dL (70-99) Lactic Acid Level 1.0 mmol/L (0.4-2.0) 1.1 mmol/L (0.4-2.0) Calcium Level 9.6 mg/dL (8.5-10.1) Total Bilirubin 0.5 mg/dL (0.2-1.0) Aspartate Amino Transf (AST/SGOT) 20 U/L (15-37) Alanine Aminotransferase (ALT/SGPT) 30 U/L (16-63) Alkaline Phosphatase 119 U/L (46-116) Troponin I Quantitative 0.067 ng/mL (0.000-0.055) 0.053 ng/mL (0.000-0.055) TZ-Ruh-N-Type Natriuretic Peptide > 63419 pg/mL (0-124) Total Protein 6.1 g/dL (6.4-8.2) Albumin 2.7 g/dL (3.4-5.0) Albumin/Globulin Ratio 0.8 (1.0-1.7) Procalcitonin 53.22 ng/mL (0.00-0.10) Influenza Type A Antigen Negative (NEGATIVE) Influenza Type B Antigen Negative (NEGATIVE) Glucose (Fingerstick) 314 mg/dL (70-99) Test 11/30/18 03:00 11/30/18 08:08 11/30/18 10:49 11/30/18 12:04 White Blood Count 21.9 x10^3/uL (4.0-11.0) Red Blood Count 2.44 x10^6/uL (4.30-5.70) Hemoglobin 6.9 g/dL (13.0-17.5) Hematocrit 21.5 % (39.0-53.0) Mean Corpuscular Volume 88 fL (79-100) Mean Corpuscular Hemoglobin 28 pg (25-35) Mean Corpuscular Hemoglobin Concent 32 g/dL (31-37) Red Cell Distribution Width 19.0 % (11.5-14.5) Platelet Count 330 x10^3/uL (140-400) Neutrophils (%) (Auto) 93 % (31-73) Lymphocytes (%) (Auto) 3 % (24-48) Monocytes (%) (Auto) 4 % (0-9) Eosinophils (%) (Auto) 1 % (0-3) Basophils (%) (Auto) 0 % (0-3) Neutrophils # (Auto) 20.4 x10^3uL (1.8-7.7) Lymphocytes # (Auto) 0.6 x10^3/uL (1.0-4.8) Monocytes # (Auto) 0.8 x10^3/uL (0.0-1.1) Eosinophils # (Auto) 0.1 x10^3/uL (0.0-0.7) Basophils # (Auto) 0.0 x10^3/uL (0.0-0.2) Sodium Level 134 mmol/L (136-145) Potassium Level 5.2 mmol/L (3.5-5.1) Chloride Level 94 mmol/L (98-107) Carbon Dioxide Level 26 mmol/L (21-32) Anion Gap 14 (6-14) Blood Urea Nitrogen 62 mg/dL (8-26) Creatinine 16.2 mg/dL (0.7-1.3) Estimated GFR (Cockcroft-Gault) 4.1 Glucose Level 390 mg/dL (70-99) Calcium Level 9.5 mg/dL (8.5-10.1) Troponin I Quantitative 0.041 ng/mL (0.000-0.055) C-Reactive Protein, Quantitative 177.1 mg/L (0-3.3) Procalcitonin 94.62 ng/mL (0.00-0.10) Glucose (Fingerstick) 338 mg/dL (70-99) 159 mg/dL (70-99) 167 mg/dL (70-99) Test 11/30/18 16:15 11/30/18 17:30 11/30/18 20:28 12/01/18 03:10 Random Vancomycin Level 19.2 mcg/mL Glucose (Fingerstick) 285 mg/dL (70-99) 225 mg/dL (70-99) White Blood Count 13.6 x10^3/uL (4.0-11.0) Red Blood Count 1.90 x10^6/uL (4.30-5.70) Hemoglobin 5.4 g/dL (13.0-17.5) Hematocrit 16.6 % (39.0-53.0) Mean Corpuscular Volume 87 fL (79-100) Mean Corpuscular Hemoglobin 29 pg (25-35) Mean Corpuscular Hemoglobin Concent 33 g/dL (31-37) Red Cell Distribution Width 19.1 % (11.5-14.5) Platelet Count 240 x10^3/uL (140-400) Neutrophils (%) (Auto) 90 % (31-73) Lymphocytes (%) (Auto) 3 % (24-48) Monocytes (%) (Auto) 5 % (0-9) Eosinophils (%) (Auto) 2 % (0-3) Basophils (%) (Auto) 0 % (0-3) Neutrophils # (Auto) 12.3 x10^3uL (1.8-7.7) Lymphocytes # (Auto) 0.3 x10^3/uL (1.0-4.8) Monocytes # (Auto) 0.7 x10^3/uL (0.0-1.1) Eosinophils # (Auto) 0.2 x10^3/uL (0.0-0.7) Basophils # (Auto) 0.0 x10^3/uL (0.0-0.2) Sodium Level 138 mmol/L (136-145) Potassium Level 4.3 mmol/L (3.5-5.1) Chloride Level 98 mmol/L (98-107) Carbon Dioxide Level 29 mmol/L (21-32) Anion Gap 11 (6-14) Blood Urea Nitrogen 36 mg/dL (8-26) Creatinine 10.7 mg/dL (0.7-1.3) Estimated GFR (Cockcroft-Gault) 6.6 BUN/Creatinine Ratio 3 (6-20) Glucose Level 212 mg/dL (70-99) Calcium Level 8.7 mg/dL (8.5-10.1) Total Bilirubin 0.6 mg/dL (0.2-1.0) Aspartate Amino Transf (AST/SGOT) 108 U/L (15-37) Alanine Aminotransferase (ALT/SGPT) 136 U/L (16-63) Alkaline Phosphatase 132 U/L (46-116) Total Protein 6.4 g/dL (6.4-8.2) Albumin 2.3 g/dL (3.4-5.0) Albumin/Globulin Ratio 0.6 (1.0-1.7) Test 12/01/18 07:15 Glucose (Fingerstick) 309 mg/dL (70-99) Laboratory Tests Test 11/30/18 12:04 11/30/18 16:15 11/30/18 17:30 11/30/18 20:28 Glucose (Fingerstick) 167 mg/dL (70-99) 285 mg/dL (70-99) 225 mg/dL (70-99) Random Vancomycin Level 19.2 mcg/mL Test 12/01/18 03:10 12/01/18 07:15 White Blood Count 13.6 x10^3/uL (4.0-11.0) Red Blood Count 1.90 x10^6/uL (4.30-5.70) Hemoglobin 5.4 g/dL (13.0-17.5) Hematocrit 16.6 % (39.0-53.0) Mean Corpuscular Volume 87 fL (79-100) Mean Corpuscular Hemoglobin 29 pg (25-35) Mean Corpuscular Hemoglobin Concent 33 g/dL (31-37) Red Cell Distribution Width 19.1 % (11.5-14.5) Platelet Count 240 x10^3/uL (140-400) Neutrophils (%) (Auto) 90 % (31-73) Lymphocytes (%) (Auto) 3 % (24-48) Monocytes (%) (Auto) 5 % (0-9) Eosinophils (%) (Auto) 2 % (0-3) Basophils (%) (Auto) 0 % (0-3) Neutrophils # (Auto) 12.3 x10^3uL (1.8-7.7) Lymphocytes # (Auto) 0.3 x10^3/uL (1.0-4.8) Monocytes # (Auto) 0.7 x10^3/uL (0.0-1.1) Eosinophils # (Auto) 0.2 x10^3/uL (0.0-0.7) Basophils # (Auto) 0.0 x10^3/uL (0.0-0.2) Sodium Level 138 mmol/L (136-145) Potassium Level 4.3 mmol/L (3.5-5.1) Chloride Level 98 mmol/L (98-107) Carbon Dioxide Level 29 mmol/L (21-32) Anion Gap 11 (6-14) Blood Urea Nitrogen 36 mg/dL (8-26) Creatinine 10.7 mg/dL (0.7-1.3) Estimated GFR (Cockcroft-Gault) 6.6 BUN/Creatinine Ratio 3 (6-20) Glucose Level 212 mg/dL (70-99) Calcium Level 8.7 mg/dL (8.5-10.1) Total Bilirubin 0.6 mg/dL (0.2-1.0) Aspartate Amino Transf (AST/SGOT) 108 U/L (15-37) Alanine Aminotransferase (ALT/SGPT) 136 U/L (16-63) Alkaline Phosphatase 132 U/L (46-116) Total Protein 6.4 g/dL (6.4-8.2) Albumin 2.3 g/dL (3.4-5.0) Albumin/Globulin Ratio 0.6 (1.0-1.7) Glucose (Fingerstick) 309 mg/dL (70-99) Microbiology 11/29/18 Blood Culture - Final, Complete Medications Current Medications Vancomycin HCl (Vanco Per Pharmacy) 1 each 1X ONCE MC ; Start 11/29/18 at 18:15 ; Stop 11/29/18 at 18:24; Status DC Piperacillin Sod/ Tazobactam Sod 3.375 gm/Sodium Chloride 50 ml @ 100 mls/hr 1X ONCE IV Last administered on 11/29/18at 18:45; Start 11/29/18 at 18:15; Stop 11/29/18 at 18:44; Status DC Ondansetron HCl (Zofran) 4 mg 1X ONCE IV Last administered on 11/29/18at 18:43 ; Start 11/29/18 at 18:15; Stop 11/29/18 at 18:23; Status DC Vancomycin HCl 2 gm/Sodium Chloride 500 ml @ 250 mls/hr 1X ONCE IV Last administered on 11/29/18at 18:46; Start 11/29/18 at 19:00; Stop 11/29/18 at 20:59 ; Status DC Iron Sucrose 200 mg/Sodium Chloride 110 ml @ 55 mls/hr 1X ONCE IV Last administered on 11/29/18at 22:20; Start 11/29/18 at 19:15; Stop 11/29/18 at 21:14 ; Status DC Ondansetron HCl (Zofran) 4 mg PRN Q8HRS PRN IV NAUSEA/VOMITING; Start 11/29/18 at 19:30; Stop 11/29/18 at 19:36; Status DC Fentanyl Citrate (Fentanyl 2ml Vial) 50 mcg PRN Q1HR PRN IV PAIN Last administered on 11/30/18at 16:23; Start 11/29/18 at 19:30; Stop 11/30/18 at 19:29 ; Status DC Acetaminophen (Tylenol) 650 mg PRN Q4HRS PRN PO FEVER Last administered on 11/30at 17:35; Start 11/29/18 at 19:30; Stop 11/30/18 at 19:29; Status DC Ondansetron HCl (Zofran) 4 mg PRN Q6HRS PRN IV NAUSEA/VOMITING; Start 11/29/18 at 19:45 Amlodipine Besylate (Norvasc) 10 mg DAILY PO Last administered on 11/30/18 12: 13; Start 11/30/18 at 09:00 Clonidine HCl (Catapres) 0.2 mg BID PO Last administered on 11/30/18 20:42; Start 11/29/18 at 21:00 Docusate Sodium (Colace) 100 mg BID PO Last administered on 11/30/18 20:40; Start 11/29/18 at 21:00 Furosemide (Lasix) 80 mg BID92 PO Last administered on 11/30/18 13:35; Start 11/29/18 at 20:00 Insulin Glargine (Lantus) 32 units HS SQ Last administered on 11/30/18 20:46; Start 11/29/18 at 21:00 Lisinopril (Prinivil) 40 mg BID PO Last administered on 11/30/18 20:41; Start 11/29/18 at 21:00 Sevelamer Carbonate (Renvela) 4,000 mg TIDWMEALS PO Last administered on 17:36; Start 11/30/18 at 08:00 Calcitriol (Rocaltrol) 0.25 mcg DAILY PO Last administered on 11/30/18 12:10; Start 11/30/18 at 09:00 Carvedilol (Coreg) 12.5 mg BIDWMEALS PO Last administered on 11/30/18 17:33; Start 11/30/18 at 08:00 Vitamin D (Vitamin D3) 5,000 unit DAILY PO Last administered on 11/30/18 12:10 ; Start 11/30/18 at 09:00 Cinacalcet (Sensipar) 60 mg DAILY PO Last administered on 11/30/18 12:13; Start 11/30/18 at 09:00 Polyethylene Glycol (miraLAX PACKET) 17 gm DAILY PO Last administered on 12:09; Start 11/30/18 at 09:00 Sennosides (Senna) 8.6 mg BID PO Last administered on 11/30/18 20:41; Start at 21:00 Simvastatin (Zocor) 20 mg HS PO Last administered on 11/30/18 20:40; Start at 21:00 Vitamin B Complex/ Vitamin C (Johanna-Celia) 1 tab DAILY PO Last administered on at 12:13; Start 11/30/18 at 09:00 Insulin Human Lispro (HumaLOG) 0-9 UNITS TIDWMEALS SQ Last administered on 11/29at 22:44; Start 11/30/18 at 08:00; Stop 11/30/18 at 10:28; Status DC Dextrose (Dextrose 50%-Water Syringe) 12.5 gm PRN Q15MIN PRN IV SEE COMMENTS; Start 11/29/18 at 19:45 Aspirin (Anshul Aspirin) 325 mg 1X ONCE PO Last administered on 11/29/18at 20:19 ; Start 11/29/18 at 19:45; Stop 11/29/18 at 19:46; Status DC Labetalol HCl (Normodyne Iv Push) 10 mg PRN Q2HR PRN IVP HYPERTENSION, SEE COMMENTS Last administered on 11/30/18at 04:17; Start 11/30/18 at 04:00 Sodium Chloride 1,000 ml @ 100 mls/hr 1X ONCE IV Last administered on at 04:17; Start 11/30/18 at 04:30; Stop 11/30/18 at 05:57; Status DC Darbepoetin David (Aranesp) 100 mcg 1X ONCE SQ Last administered on 11/30/18at 06:06; Start 11/30/18 at 07:00; Stop 11/30/18 at 07:01; Status DC Sodium Chloride 1,000 ml @ 1,000 mls/hr Q1H PRN IV hypotension; Start 11/30/18 at 07:34; Stop 11/30/18 at 13:39; Status DC Albumin Human 200 ml @ 200 mls/hr 1X PRN PRN IV Hypotension; Start 11/30/18 at 07:45; Stop 11/30/18 at 13:44; Status DC Diphenhydramine HCl (Benadryl) 25 mg 1X PRN PRN IV ITCHING; Start 11/30/18 at 07:45; Stop 12/01/18 at 07:44; Status DC Sodium Chloride 1,000 ml @ 400 mls/hr Q2H30M PRN IV PATENCY; Start 11/30/18 at 07:34; Stop 11/30/18 at 19:33; Status DC Info (PHARMACY MONITORING -- do not chart) 1 each PRN DAILY PRN MC SEE COMMENTS ; Start 11/30/18 at 07:45 Info (PHARMACY MONITORING -- do not chart) 1 each PRN DAILY PRN MC SEE COMMENTS ; Start 11/30/18 at 07:45; Status UNV Darbepoetin David (Aranesp) 60 mcg WEEKLYHS SQ ; Start 11/30/18 at 21:00; Stop at 21:00; Status DC Darbepoetin David (Aranesp) 60 mcg WEEKLYHS SQ ; Start 12/07/18 at 21:00 Insulin Human Lispro (HumaLOG) 0-9 UNITS TIDWMEALS SQ Last administered on 12/01at 06:16; Start 11/30/18 at 12:00 Dextrose (Dextrose 50%-Water Syringe) 12.5 gm PRN Q15MIN PRN IV SEE COMMENTS; Start 11/30/18 at 10:30; Status UNV Vancomycin HCl (Vanco Per Pharmacy) 1 each PRN DAILY PRN MC SEE COMMENTS Last administered on 12/01/18at 11:14; Start 11/30/18 at 12:15 Piperacillin Sod/ Tazobactam Sod (Zosyn Per Pharmacy) 1 each PRN DAILY PRN MC SEE COMMENTS; Start 11/30/18 at 12:15 Piperacillin Sod/ Tazobactam Sod 2.25 gm/Sodium Chloride 50 ml @ 100 mls/hr Q8HRS IV Last administered on 12/01/18at 06:08; Start 11/30/18 at 13:00 Calcium Carbonate/ Glycine (Tums) 500 mg PRN BID PRN PO INDIGESTION; Start at 13:30 Albuterol Sulfate (Ventolin Neb Soln) 2.5 mg PRN Q6HRS PRN NEB SHORTNESS OF BREATH; Start 11/30/18 at 13:45 Non-Formulary Medication (Epoetin David (Procrit)) 10,000 unit WEEKLY IJ ; Start 12/07/18 at 09:00; Stop 12/07/18 at 09:00; Status DC Fluticasone Propionate (Flonase) 2 spray DAILY NS Last administered on at 16:23; Start 11/30/18 at 14:00 Pantoprazole Sodium (Protonix) 40 mg DAILYAC PO Last administered on 11/30/18at 16:21; Start 11/30/18 at 14:00 Vancomycin HCl (Vancomycin Random Level) 1 each 1X ONCE MC Last administered on 11/30/18at 16:00; Start 11/30/18 at 16:00; Stop 11/30/18 at 16:01; Status DC Sodium Cl/Sod Bicarb/Potass Cl/ PEG (Golytely) 4,000 ml 1X ONCE PO Last administered on 11/30/18at 17:33; Start 11/30/18 at 18:00; Stop 11/30/18 at 18:01 ; Status DC Polyethylene Glycol (miraLAX PACKET) 17 gm PRN DAILY PRN PO CONSTIPATION; Start 11/30/18 at 17:00 Acetaminophen (Tylenol) 650 mg PRN Q4HRS PRN PO FEVER Last administered on 12/01at 03:10; Start 11/30/18 at 20:15 Vancomycin HCl 500 mg/Sodium Chloride 100 ml @ 100 mls/hr QMWF IV ; Start 12/01 at 16:00 Sodium Chloride 1,000 ml @ 1,000 mls/hr Q1H PRN IV hypotension; Start 12/01/18 at 07:00; Stop 12/01/18 at 18:00 Sodium Chloride 1,000 ml @ 400 mls/hr Q2H30M PRN IV PATENCY; Start 12/01/18 at 07:00; Stop 12/01/18 at 18:59 Info (PHARMACY MONITORING -- do not chart) 1 each PRN DAILY PRN MC SEE COMMENTS ; Start 12/01/18 at 10:30; Status UNV Info (PHARMACY MONITORING -- do not chart) 1 each PRN DAILY PRN MC SEE COMMENTS ; Start 12/01/18 at 10:30; Status UNV Active Scripts Active Reported Protonix (Pantoprazole Sodium) 20 Mg Tablet.dr 2 Tab PO DAILY Flonase Allergy Relief (Fluticasone Propionate) 9.9 Ml [place].susp 2 Sprays NS DAILY Procrit (Epoetin David) 10,000 Unit/1 Ml Vial 10,000 Unit IJ WEEKLY Tums (Calcium Carbonate) 200 Mg Tab.chew 200 Mg PO BID PRN Proair Respiclick (Albuterol Sulfate) 90 Mcg Aer.pow.ba 1-2 Puff IH PRN Q6HRS PRN Senna (Sennosides) 8.6 Mg Tablet 8.6 Mg PO BID Miralax (Polyethylene Glycol 3350) 17 Gm Powd.pack 1 Packet PO DAILY Colace (Docusate Sodium) 100 Mg Capsule 1 Cap PO BID Carvedilol 25 Mg Tablet 25 Mg PO BIDWMEALS Renvela (Sevelamer Carbonate) 800 Mg Tablet 5 Tab PO TIDWMEALS Furosemide 80 Mg Tablet 1 Tab PO BID Vitamin D (Cholecalciferol (Vitamin D3)) 5,000 Unit Tablet 5,000 Unit PO DAILY Calcitriol 0.25 Mcg Capsule 2 Cap PO DAILY Clonidine Hcl 0.2 Mg Tablet 1 Tab PO BID Johanna-Celia Rx Tablet (Vit B Cmplx 3/Fa/Vit C/Biotin) 1 Each Tablet 1 Each PO DAILY Sensipar (Cinacalcet Hcl) 60 Mg Tablet 60 Mg PO DAILY Amlodipine Besylate 10 Mg Tablet 10 Mg PO DAILY Simvastatin 20 Mg Tablet 20 Mg PO HS Lisinopril 40 Mg Tablet 1 Tab PO BID Novolog (Insulin Aspart) 100 Unit/1 Ml Vial 100 Unit SQ sliding scale Lantus Solostar (Insulin Glargine,Hum.rec.anlog) 100 Unit/1 Ml Insuln.pen 15 Unit SQ HS Vitals/I & O Vital Sign - Last 24 Hours 11/30/18 11/30/18 11/30/18 11/30/18 12:10 12:11 12:12 12:13 Pulse 102 102 102 102 B/P (MAP) 142/74 142/74 142/74 142/74 11/30/18 11/30/18 11/30/18 11/30/18 15:00 16:23 17:33 19:00 Temp 98.6 99.5 98.6 99.5 Pulse 97 97 84 Resp 18 18 18 B/P (MAP) 138/75 (96) 138/75 102/62 (75) Pulse Ox 97 95 O2 Delivery Nasal Cannula Nasal Cannula Nasal Cannula O2 Flow Rate 3.0 2.0 2.0 11/30/18 11/30/18 11/30/18 11/30/18 20:41 20:42 20:45 22:47 Temp 98.9 98.9 Pulse 75 75 81 Resp 18 B/P (MAP) 117/66 117/66 132/82 (99) Pulse Ox 95 O2 Delivery Nasal Cannula Nasal Cannula O2 Flow Rate 2.0 2.0 12/01/18 12/01/18 12/01/18 12/01/18 03:07 05:45 07:42 08:00 Temp 102.2 98.6 98.3 102.2 98.6 98.3 Pulse 92 87 Resp 26 18 B/P (MAP) 152/79 (103) 118/71 (87) Pulse Ox 91 97 O2 Delivery Nasal Cannula Nasal Cannula Nasal Cannula O2 Flow Rate 2.0 2.0 2.0 12/01/18 11:29 Temp 99.4 99.4 Pulse 85 Resp 20 B/P (MAP) 138/84 Intake and Output 11/30/18 11/30/18 12/01/18 15:00 23:00 07:00 Intake Total 240 ml 200 ml 350 ml Balance 240 ml 200 ml 350 ml SHALINI HOLT III DO Dec 01, 2018 11:52
--- NOTE | 2018-12-01 12:52 | NUR ---
SS following for discharge planning. SS reviewed pt chart. Pt is from home with spouse and on peritoneal dialysis at home. Pt is currently requiring oxygen. No discharge needs noted at this time. SS will continue to follow for pending discharge needs.
[2018-12-01] MEDS: CINACALCET HCL 30 MG TABLET PO SCH (13:12)
[2018-12-01] MEDS: CALCITRIOL 0.25 MCG CAPSULE. PO SCH (13:12)
[2018-12-01] MEDS: FOLIC/VIT B COMP W-C (RENAL) TABLET. PO SCH (13:13)
[2018-12-01] MEDS: SENNOSIDES 8.6 MG TABLET PO SCH ×2 (13:13→22:29)
[2018-12-01] MEDS: CHOLECALCIFEROL (VITAMIN D3) 5,000 UNIT CAPSULE PO SCH (13:13)
[2018-12-01] MEDS: FUROSEMIDE 80 MG TABLET. PO SCH ×2 (13:13→13:33)
[2018-12-01] MEDS: DOCUSATE SODIUM 100 MG CAPSULE. PO SCH ×2 (13:13→22:28)
--- NOTE | 2018-12-01 13:14 | EKG ---
[facility] [address] [place] [address] Test Date: 2018-11-29 Test Time: 18:57:16 Pat Name: WILFRED STEVENS Department: Room: 208 1 Gender: Inside [employer] Sales: : 1980 Requested By: LAZARUS REYES Order Number: [id number] Reading MD: Maninder Olivier Measurements Intervals [place] Rate: P: [place]: QRS: QRSD: T: QT: QTc: Interpretive Statements Compared to ECG 01/11/2018 02:52:47 No significant changes Electronically Signed On 12-03-2018 8:58:22 INTERVENTIONAL RADIOLOGIST by Maninder Olivier
[2018-12-01] MEDS: cloNIDine HCL 0.2 MG TABLET PO SCH ×2 (13:18→22:29)
[2018-12-01] MEDS: CARVEDILOL 12.5 MG TABLET. PO SCH ×2 (13:19→17:24)
[2018-12-01] MEDS: amLODIPine BESYLATE 10 MG TABLET PO SCH (13:19)
[2018-12-01] MEDS: LISINOPRIL 20 MG TABLET PO SCH ×2 (13:20→22:28)
[2018-12-01] MEDS: PANTOPRAZOLE 40 MG TABLET.DR. PO SCH (13:30)
[2018-12-01] MEDS: FLUTICASONE 50MCG/NASAL SPRAY 16GM BOTTLE. NS SCH (13:31)
--- NOTE | 2018-12-01 14:58 | NUR ---
SS following up with referral for information on advanced directives. SS met with pt in room to discuss. Pt reported not wanting information on advanced directives and declined information at this time. Pt's RN notified.
--- NOTE | 2018-12-01 15:33 | PDOC2 ---
GI CONSULT Reason For Consult: Constipation HPI: HPI: 38 y/o male known to me. Admitted this occasion with fever, leukocytosis and GPC bacteremia. We were asked to see for constipation. Has issues with this chronically and takes Miralax daily at home, but requires occasional Golytely there; has received this earlier today here and now stooling. Denies blood in stool or melena. Had colonoscopy December last year for abnormal imaging; this was a normal exam save a few hyperplastic polyps. No GIFH. Denies N or V. Had EGD for epigastric pain along with the colonoscopy showing reflux, fundic gland polyp and non-specific erythema in antrum (no H.pylori on biopsy). Taking PPI daily at home and no issues. No PUD, GB, liver or pancreatic history. No tobacco, alcohol or NSAID use. Last seen for apparent SBO which resolved with conservative therapy. PMH: PMH: HTN, DM, ESRD (plans to stay on PD after catheter revision tomorrow). Had hernia repair at time of initial PD catheter placement. FH: Family History: Cancer (not GI) Social History: Smoke: No ALCOHOL: none Drugs: None ROS: GEN: Denies fevers, chills, sweats HEENT: Denies blurred vision, sore throat CV: Transient atypical chest pain RESP: Denies shortness of air, cough GI: Per HPI : Denies hematuria, dysuria ENDO: Denies weight changes NEURO: Denies confusion, dizziness MSK: Denies weakness, joint pain/swelling SKIN: Denies jaundice, pruritus Vitals: Vitals: Vital Signs Date Time Temp Pulse Resp B/P (MAP) Pulse Ox O2 Delivery O2 Flow Rate FiO2 12/01/18 13:20 95 155/85 12/01/18 12:16 99.4 16 99.4 12/01/18 08:00 Nasal Cannula 2.0 12/01/18 07:42 97 Labs: Labs: Laboratory Tests Test 11/30/18 16:15 11/30/18 17:30 11/30/18 20:28 12/01/18 03:10 Random Vancomycin Level 19.2 mcg/mL Glucose (Fingerstick) 285 mg/dL (70-99) 225 mg/dL (70-99) White Blood Count 13.6 x10^3/uL (4.0-11.0) Red Blood Count 1.90 x10^6/uL (4.30-5.70) Hemoglobin 5.4 g/dL (13.0-17.5) Hematocrit 16.6 % (39.0-53.0) Mean Corpuscular Volume 87 fL (79-100) Mean Corpuscular Hemoglobin 29 pg (25-35) Mean Corpuscular Hemoglobin Concent 33 g/dL (31-37) Red Cell Distribution Width 19.1 % (11.5-14.5) Platelet Count 240 x10^3/uL (140-400) Neutrophils (%) (Auto) 90 % (31-73) Lymphocytes (%) (Auto) 3 % (24-48) Monocytes (%) (Auto) 5 % (0-9) Eosinophils (%) (Auto) 2 % (0-3) Basophils (%) (Auto) 0 % (0-3) Neutrophils # (Auto) 12.3 x10^3uL (1.8-7.7) Lymphocytes # (Auto) 0.3 x10^3/uL (1.0-4.8) Monocytes # (Auto) 0.7 x10^3/uL (0.0-1.1) Eosinophils # (Auto) 0.2 x10^3/uL (0.0-0.7) Basophils # (Auto) 0.0 x10^3/uL (0.0-0.2) Sodium Level 138 mmol/L (136-145) Potassium Level 4.3 mmol/L (3.5-5.1) Chloride Level 98 mmol/L (98-107) Carbon Dioxide Level 29 mmol/L (21-32) Anion Gap 11 (6-14) Blood Urea Nitrogen 36 mg/dL (8-26) Creatinine 10.7 mg/dL (0.7-1.3) Estimated GFR (Cockcroft-Gault) 6.6 BUN/Creatinine Ratio 3 (6-20) Glucose Level 212 mg/dL (70-99) Calcium Level 8.7 mg/dL (8.5-10.1) Total Bilirubin 0.6 mg/dL (0.2-1.0) Aspartate Amino Transf (AST/SGOT) 108 U/L (15-37) Alanine Aminotransferase (ALT/SGPT) 136 U/L (16-63) Alkaline Phosphatase 132 U/L (46-116) Total Protein 6.4 g/dL (6.4-8.2) Albumin 2.3 g/dL (3.4-5.0) Albumin/Globulin Ratio 0.6 (1.0-1.7) Test 12/01/18 07:15 12/01/18 12:36 Glucose (Fingerstick) 309 mg/dL (70-99) 116 mg/dL (70-99) Chronic anemia. Allergies: Coded Allergies: No Known Medication Allergies (Verified Allergy, Unknown, 12/01/18) Penicillins (Verified Adverse Reaction, Mild, Nausea, 12/23/17) Imaging: Imaging: No GI imaging this admission. PE: GEN: NAD HEENT: Atraumatic, PERRLA LUNGS: CTAB HEART: RRR, no murmurs ABD: NABS, S/ND/NT, no masses. PD catheter present. EXTREMITY: No edema SKIN: No rashes, no jaundice NEURO/PSYCH: A & O 3 A/P: A/P: IMP: Constipation, idiopathic. Improved after Golytely. H/o hyperplastic colon polyps; do not appreciably alter baseline risk for CRC. GERD, stable on PPI. Anemia, chronic. REC: Continue daily Miralax; consider dose escalation if once daily not effective. Continue other. Await further anemia data. Repeat colonoscopy not needed until ~2024. Thank you for allowing me to assist in the care of this patient. Please call if questions. ORQUIDEA MAR MD Dec 01, 2018 15:33
[2018-12-01] MEDS: VANCOMYCIN 500 MG in IV NORMAL SALINE 100ML 100 ML IV SCH (17:22)
[2018-12-01] MEDS: SIMVASTATIN 20 MG TABLET PO SCH (22:28)
[2018-12-01] MEDS: INSULIN GLARGINE 300 UNITS/3 ML INSULN.PEN. SQ SCH (22:32)
[2018-12-02 03:16] VITALS: BP 133/84
[2018-12-02 05:35] LABS: ALBUMIN 2.2 g/dL (3.4-5.0); ALBUMIN/GLOBULIN RATIO 0.5 (1.0-1.7); CALCIUM 8.6 mg/dL (8.5-10.1); CREATININE 8.3 mg/dL (0.7-1.3); GFR 8.8; POTASSIUM 4.7 mmol/L (3.5-5.1); TOTAL BILIRUBIN 0.5 mg/dL (0.2-1.0); TOTAL PROTEIN 6.5 g/dL (6.4-8.2)
[2018-12-02 05:38] LABS: BASO % 0 % (0-3); EOS # 0.4 x10^3/uL (0.0-0.7); EOS % 5 % (0-3); HEMATOCRIT 22.1 % (39.0-53.0); HEMOGLOBIN 7.3 g/dL (13.0-17.5); LYMPH # 0.7 x10^3/uL (1.0-4.8); LYMPH % 7 % (24-48); MEAN CORPUSCULAR HEMOGLOBIN 28 pg (25-35); MEAN CORPUSCULAR HGB CONC 33 g/dL (31-37); MEAN CORPUSCULAR VOLUME 85 fL (79-100); MONO # 0.9 x10^3/uL (0.0-1.1); MONO % 10 % (0-9); NEUT # 7.6 x10^3uL (1.8-7.7); NEUT % 78 % (31-73); PLATELET COUNT 236 x10^3/uL (140-400); RED BLOOD COUNT 2.59 x10^6/uL (4.30-5.70); RED CELL DISTRIBUTION WIDTH 18.9 % (11.5-14.5); RETIC COUNT 3.3 % (0.5-2.5); WHITE BLOOD COUNT 9.7 x10^3/uL (4.0-11.0)
--- NOTE | 2018-12-02 06:23 | NUR ---
Blood sugar this AM labs was 450. Patient is NPO for procedure scheduled at 830AM. Paged / notified Dr Morrell. New order for 7 units Humalog now and recheck BS before patient leaves for procedure today.
[2018-12-02] MEDS: PIPERACILLIN/TAZOBACTAM 2.25 GM in IV NORMAL SALINE 50ML 50 ML IV SCH ×3 (06:30→21:05)
[2018-12-02] MEDS: INSULIN LISPRO 300 UNITS/3 ML INSULN.PEN. SQ SCH ×3 (06:44→17:06)
--- NOTE | 2018-12-02 06:44 | PDOC ---
Infectious Disease Note Subjective Subjective Feels ok but some discomfort in RUE IV + BM No F/C/S/N/V/SOA/Rash or pain. Cough better ROS ROS O/w neg Vital Sign Vital Signs Vital Signs Date Time Temp Pulse Resp B/P (MAP) Pulse Ox O2 Delivery O2 Flow Rate FiO2 12/02/18 03:16 98.8 87 16 133/84 (100) 93 Room Air 98.8 12/01/18 20:00 2.0 Physical Exam PHYSICAL EXAM GEN: Coop, NAD HEENT: Pupils are equally round, reactive. Normal conjunctivae. Oral cavity: Pharynx pink and moist. NECK: Supple. He has a small wound with a stitch in place on right-sided neck without surrounding redness or drainage. Scabbing LUNGS: Clear to auscultation. HEART: S1 and S2. ABDOMEN: Less distended, soft, nontender with bowel sounds present. Peritoneal dialysis catheter clean. EXTREMITIES: No gross edema or cyanosis. SKIN: Warm without generalized rash. NEUROLOGIC: Alert and oriented x 3. LINES: Right-sided tunneled HD catheter (11/26) without signs of any complications. RUE PIV - mild swelling - no warmth/erythema. Trace discomfort Labs Lab Laboratory Tests Test 12/01/18 07:15 12/01/18 12:36 12/01/18 16:40 12/01/18 21:18 Glucose (Fingerstick) 309 mg/dL (70-99) 116 mg/dL (70-99) 238 mg/dL (70-99) 317 mg/dL (70-99) Test 12/02/18 04:40 White Blood Count 9.7 x10^3/uL (4.0-11.0) Red Blood Count 2.59 x10^6/uL (4.30-5.70) Hemoglobin 7.3 g/dL (13.0-17.5) Hematocrit 22.1 % (39.0-53.0) Mean Corpuscular Volume 85 fL (79-100) Mean Corpuscular Hemoglobin 28 pg (25-35) Mean Corpuscular Hemoglobin Concent 33 g/dL (31-37) Red Cell Distribution Width 18.9 % (11.5-14.5) Platelet Count 236 x10^3/uL (140-400) Neutrophils (%) (Auto) 78 % (31-73) Lymphocytes (%) (Auto) 7 % (24-48) Monocytes (%) (Auto) 10 % (0-9) Eosinophils (%) (Auto) 5 % (0-3) Basophils (%) (Auto) 0 % (0-3) Neutrophils # (Auto) 7.6 x10^3uL (1.8-7.7) Lymphocytes # (Auto) 0.7 x10^3/uL (1.0-4.8) Monocytes # (Auto) 0.9 x10^3/uL (0.0-1.1) Eosinophils # (Auto) 0.4 x10^3/uL (0.0-0.7) Basophils # (Auto) 0.0 x10^3/uL (0.0-0.2) Reticulocyte Count (auto) 3.3 % (0.5-2.5) Sodium Level 134 mmol/L (136-145) Potassium Level 4.7 mmol/L (3.5-5.1) Chloride Level 95 mmol/L (98-107) Carbon Dioxide Level 30 mmol/L (21-32) Anion Gap 9 (6-14) Blood Urea Nitrogen 28 mg/dL (8-26) Creatinine 8.3 mg/dL (0.7-1.3) Estimated GFR (Cockcroft-Gault) 8.8 BUN/Creatinine Ratio 3 (6-20) Glucose Level 450 mg/dL (70-99) Calcium Level 8.6 mg/dL (8.5-10.1) Total Bilirubin 0.5 mg/dL (0.2-1.0) Aspartate Amino Transf (AST/SGOT) 111 U/L (15-37) Alanine Aminotransferase (ALT/SGPT) 190 U/L (16-63) Alkaline Phosphatase 168 U/L (46-116) Total Protein 6.5 g/dL (6.4-8.2) Albumin 2.2 g/dL (3.4-5.0) Albumin/Globulin Ratio 0.5 (1.0-1.7) Micro Microbiology 11/29/18 Blood Culture - Preliminary, Resulted NO GROWTH AFTER 1 DAY Objective Assessment Sepsis POA. Procalcitonin 94.62. ? line infection - clinically better GPC bacteremia (3 of 4 bottles) POA 11/29 Leukocytosis - better Transaminitis ? sepsis - increasing Fever - curve improving PCN allergy - nausea. Has tolerated Zosyn without problem Constipation Acute diastolic CHF CKD on HD (s/p HDC 11/26; small neck wound w/ stitch in place) Malfunctioning peritoneal catheter Anemia. s/p iron and PRBCs Diabetes Plan Plan of Care Continue vanc and Zosyn (11/29). Zosyn currently running and I paused it. D/w nursing re: ? Infiltration of IV Awaiting GPC ID/susceptibilities. General surgery following for possible lap exploration for PD repair/ repositioning. Monitor labs - LFTs/temp D/w nursing ECHO HENNESSY MD Dec 02, 2018 06:44
[2018-12-02 07:00] VITALS: BP 142/91
[2018-12-02] MEDS: PANTOPRAZOLE 40 MG TABLET.DR. PO SCH (07:30)
[2018-12-02] MEDS ORDERED: BUPIVAC MPF-EPI 0.5%-1:200000 30 ML VIAL. ONE (07:36)
[2018-12-02] MEDS: CARVEDILOL 12.5 MG TABLET. PO SCH ×2 (08:00→16:51)
--- NOTE | 2018-12-02 08:06 | PDOC ---
SUBJECTIVE Subjective S: Doing okay this morning, upset that he is not on his sliding scale from home and that his IV has infiltrated O: Physical exam: Gen.: Well-nourished and well-developed, resting in bed Lungs: Breathing comfortably with no evidence of respiratory distress Extremities: Slight tenderness and edema at IV at right lower arm Labs: White count 9.7, hemoglobin 7.3, platelets 236, retic 3.3% posttransfusion Assessment and Plan: He is a 38-year-old man with anemia, admission for infection with gram-positive cocci noted in blood cultures on 11/29, improving on antibiotics, status post 2 unit transfusion on Aranesp and has received some IV Iron while here. Kidney failure: Dialysis per nephro Peritoneal dialysis catheter malfunctioning: Pending repair Anemia: improvement post 2 unit transfusion, on Aranesp 60 g weekly and has had 200 mg of IV iron sucrose 1, he did have an iron sat of 12% and ferritin of 574 on 15 October 2018 [facility] labs, IV iron can be continued per nephro as needed , for now he'll continue the Aranesp, does not want oral iron due to constipation, checking other labs on anemia differential as well, still pending Infection: On broad-spectrum antibiotics, ID is involved Diabetes: Per primary IV infiltration: Pending change out Thank you kindly, and please do not hesitate to call with further questions. OBJECTIVE Vital Signs Vital Signs Date Time Temp Pulse Resp B/P (MAP) Pulse Ox O2 Delivery O2 Flow Rate FiO2 12/02/18 03:16 98.8 87 16 133/84 (100) 93 Room Air 98.8 12/01/18 23:11 98.9 89 16 147/87 (107) 95 Room Air 98.9 12/01/18 22:29 81 110/71 12/01/18 22:28 81 110/71 12/01/18 20:00 Nasal Cannula 2.0 12/01/18 19:17 98.9 81 16 110/71 (84) 99 Nasal Cannula 2.0 98.9 12/01/18 17:29 98.5 78 16 131/83 (99) Nasal Cannula 2.0 98.5 12/01/18 17:24 78 131/83 12/01/18 15:21 101.1 100 18 123/69 (87) 97 Nasal Cannula 2.0 101.1 12/01/18 13:20 95 155/85 12/01/18 13:19 93 155/85 12/01/18 13:19 93 155/85 12/01/18 13:18 155/85 12/01/18 12:30 99.1 85 18 139/86 (103) Nasal Cannula 2.0 99.1 12/01/18 12:16 99.4 84 16 147/86 99.4 12/01/18 11:59 98.9 86 16 144/89 98.9 12/01/18 11:54 98.9 87 18 144/89 98.9 12/01/18 11:50 98.9 85 16 144/89 98.9 12/01/18 11:29 99.4 85 20 138/84 99.4 I & O Intake and Output 12/02/18 07:00 Intake Total 1035 ml Balance 1035 ml Intake Oral 810 ml IV Total 150 ml Blood Product IV Normal Saline Flush 75 ml COMMENT Lab Laboratory Tests Test 12/01/18 12:36 12/01/18 16:40 12/01/18 21:18 12/02/18 04:40 Glucose (Fingerstick) 116 mg/dL (70-99) 238 mg/dL (70-99) 317 mg/dL (70-99) White Blood Count 9.7 x10^3/uL (4.0-11.0) Red Blood Count 2.59 x10^6/uL (4.30-5.70) Hemoglobin 7.3 g/dL (13.0-17.5) Hematocrit 22.1 % (39.0-53.0) Mean Corpuscular Volume 85 fL (79-100) Mean Corpuscular Hemoglobin 28 pg (25-35) Mean Corpuscular Hemoglobin Concent 33 g/dL (31-37) Red Cell Distribution Width 18.9 % (11.5-14.5) Platelet Count 236 x10^3/uL (140-400) Neutrophils (%) (Auto) 78 % (31-73) Lymphocytes (%) (Auto) 7 % (24-48) Monocytes (%) (Auto) 10 % (0-9) Eosinophils (%) (Auto) 5 % (0-3) Basophils (%) (Auto) 0 % (0-3) Neutrophils # (Auto) 7.6 x10^3uL (1.8-7.7) Lymphocytes # (Auto) 0.7 x10^3/uL (1.0-4.8) Monocytes # (Auto) 0.9 x10^3/uL (0.0-1.1) Eosinophils # (Auto) 0.4 x10^3/uL (0.0-0.7) Basophils # (Auto) 0.0 x10^3/uL (0.0-0.2) Reticulocyte Count (auto) 3.3 % (0.5-2.5) Sodium Level 134 mmol/L (136-145) Potassium Level 4.7 mmol/L (3.5-5.1) Chloride Level 95 mmol/L (98-107) Carbon Dioxide Level 30 mmol/L (21-32) Anion Gap 9 (6-14) Blood Urea Nitrogen 28 mg/dL (8-26) Creatinine 8.3 mg/dL (0.7-1.3) Estimated GFR (Cockcroft-Gault) 8.8 BUN/Creatinine Ratio 3 (6-20) Glucose Level 450 mg/dL (70-99) Calcium Level 8.6 mg/dL (8.5-10.1) Total Bilirubin 0.5 mg/dL (0.2-1.0) Aspartate Amino Transf (AST/SGOT) 111 U/L (15-37) Alanine Aminotransferase (ALT/SGPT) 190 U/L (16-63) Alkaline Phosphatase 168 U/L (46-116) Total Protein 6.5 g/dL (6.4-8.2) Albumin 2.2 g/dL (3.4-5.0) Albumin/Globulin Ratio 0.5 (1.0-1.7) CAROL BLAND MD Dec 02, 2018 08:06
[2018-12-02] MEDS: cloNIDine HCL 0.2 MG TABLET PO SCH ×2 (09:00→20:47)
[2018-12-02] MEDS: CINACALCET HCL 30 MG TABLET PO SCH (09:00)
[2018-12-02] MEDS: FUROSEMIDE 80 MG TABLET. PO SCH ×2 (09:00→14:00)
[2018-12-02] MEDS: FOLIC/VIT B COMP W-C (RENAL) TABLET. PO SCH (09:00)
[2018-12-02] MEDS: POLYETHYLENE GLYCOL 3350 17 GM PACKET. PO SCH (09:00)
[2018-12-02] MEDS: SENNOSIDES 8.6 MG TABLET PO SCH ×2 (09:00→20:46)
[2018-12-02] MEDS: CALCITRIOL 0.25 MCG CAPSULE. PO SCH (09:00)
[2018-12-02] MEDS: CHOLECALCIFEROL (VITAMIN D3) 5,000 UNIT CAPSULE PO SCH (09:00)
[2018-12-02] MEDS: DOCUSATE SODIUM 100 MG CAPSULE. PO SCH ×2 (09:00→20:47)
[2018-12-02] MEDS: FLUTICASONE 50MCG/NASAL SPRAY 16GM BOTTLE. NS SCH (09:00)
[2018-12-02] MEDS: LISINOPRIL 20 MG TABLET PO SCH ×2 (09:00→20:47)
[2018-12-02] MEDS: amLODIPine BESYLATE 10 MG TABLET PO SCH (09:00)
[2018-12-02] MEDS ORDERED: ROCURONIUM 50 MG/5 ML VIAL. ONE (09:05)
[2018-12-02] MEDS ORDERED: LIDOCAINE 2% PF 5 ML VIAL. ONE (09:05)
[2018-12-02] MEDS ORDERED: fentaNYL PF VIAL 100 MCG/2 ML VIAL ONE (09:05)
[2018-12-02] MEDS ORDERED: PROPOFOL 20 ML IV ONE (09:06)
[2018-12-02] MEDS ORDERED: DEXAMETHASONE SOD PHOS 20 MG/5 ML VIAL. ONE (09:06)
[2018-12-02] MEDS ORDERED: ONDANSETRON PF 4 MG/2 ML VIAL. ONE (09:06)
--- NOTE | 2018-12-02 09:33 | PDOC ---
Subjective: Subjective: No GI complaints. Objective: Objective: Plans for PD cath repositioning vs replacement and umbilical hernia repair today. Vital Signs: Vital Signs Date Time Temp Pulse Resp B/P (MAP) Pulse Ox O2 Delivery O2 Flow Rate FiO2 12/02/18 07:00 99.0 18 142/91 (108) 98 Room Air 99.0 12/02/18 03:16 87 12/01/18 20:00 2.0 Labs: Laboratory Tests Test 12/01/18 12:36 12/01/18 16:40 12/01/18 21:18 12/02/18 04:40 Glucose (Fingerstick) 116 mg/dL 238 mg/dL 317 mg/dL White Blood Count 9.7 x10^3/uL Red Blood Count 2.59 x10^6/uL Hemoglobin 7.3 g/dL Hematocrit 22.1 % Mean Corpuscular Volume 85 fL Mean Corpuscular Hemoglobin 28 pg Mean Corpuscular Hemoglobin Concent 33 g/dL Red Cell Distribution Width 18.9 % Platelet Count 236 x10^3/uL Neutrophils (%) (Auto) 78 % Lymphocytes (%) (Auto) 7 % Monocytes (%) (Auto) 10 % Eosinophils (%) (Auto) 5 % Basophils (%) (Auto) 0 % Neutrophils # (Auto) 7.6 x10^3uL Lymphocytes # (Auto) 0.7 x10^3/uL Monocytes # (Auto) 0.9 x10^3/uL Eosinophils # (Auto) 0.4 x10^3/uL Basophils # (Auto) 0.0 x10^3/uL Reticulocyte Count (auto) 3.3 % Sodium Level 134 mmol/L Potassium Level 4.7 mmol/L Chloride Level 95 mmol/L Carbon Dioxide Level 30 mmol/L Anion Gap 9 Blood Urea Nitrogen 28 mg/dL Creatinine 8.3 mg/dL Estimated GFR (Cockcroft-Gault) 8.8 BUN/Creatinine Ratio 3 Glucose Level 450 mg/dL Calcium Level 8.6 mg/dL Total Bilirubin 0.5 mg/dL Aspartate Amino Transf (AST/SGOT) 111 U/L Alanine Aminotransferase (ALT/SGPT) 190 U/L Alkaline Phosphatase 168 U/L Total Protein 6.5 g/dL Albumin 2.2 g/dL Albumin/Globulin Ratio 0.5 Test 12/02/18 08:04 Glucose (Fingerstick) 325 mg/dL PE: GEN: NAD LUNGS: room air HEART: RRR ABD: non-tender, soft, PD cath NEURO/PSYCH: A & O 3 A/P: Sepsis Constipation - improved, CRC screen UTD GERD - on PPI Chronic anemia, ESRD Elevated LFTs - new (though Alk Phos elevated in the past), unremarkable liver on US in 12/2017 -- Continue Miralax and PPI. ?repeat liver imaging MORRIS LAMAR Dec 02, 2018 09:33
[2018-12-02] MEDS ORDERED: INSULIN LISPRO 300 UNITS/3 ML INSULN.PEN. SQ ONE (09:45)
[2018-12-02] MEDS: IV NORMAL SALINE 1000ML BAG 1,000 ML IV SCH ×2 (09:45→13:04)
[2018-12-02] MEDS: HEPARIN SODIUM 5,000 UNIT in IV NORMAL SALINE 500ML BAG 500 ML IRR ONE ×2 (09:51→11:05)
--- NOTE | 2018-12-02 10:24 | PDOC ---
SUBJECTIVE ROS Plans for PD cath repositioning vs replacement and umbilical hernia repair today. OBJECTIVE Vital Signs Vital Signs Date Time Temp Pulse Resp B/P (MAP) Pulse Ox O2 Delivery O2 Flow Rate FiO2 12/02/18 09:40 99.4 81 20 140/86 96 Room Air 99.4 12/01/18 20:00 2.0 I & 0 Intake and Output 12/02/18 07:00 Intake Total 1035 ml Balance 1035 ml Intake Oral 810 ml IV Total 150 ml Blood Product IV Normal Saline Flush 75 ml PHYSICAL EXAM Physical Exam GEN: NAD HEENT: OM moist NECK: Supple LUNGS: Clear to auscultation. HEART: S1 and S2. ABDOMEN: soft, nontender, PD cath + EXTREMITIES: No edema SKIN: No Rash NEUROLOGIC: Alert and oriented x 3. LINES: Right-sided tunneled HD catheter (11/26) DIAGNOSIS/ASSESSMENT Assessment & Plan ESRD - Has been on PD , currently MWF HD Non Functioning PD cath, initiated on HD last week at Dialyzed yesterday, No indication today Tomorrow as per his schedule Non Functioning PD catheter Plans for PD cath repositioning vs replacement and umbilical hernia repair today. Hyponatremia- Corrected for Glucose- Normal Fever- ?Line sepsis ID on board Anemia - avoid PRBC if possible since he is a Tx candidate On Aranesp ,significant drop in Hgb - Recd PRBC and Fe as recommended by Hem/ Onc Acute Diastolic CHF- Stable, On RA DM II- BS high Primary managing HTN- continue antihypertensives Hyperkalemia- resolved Transaminitis- ID and GI on board COMMENT/RELEVANT DATA Meds Current Medications Medications (Trade) Dose Ordered Sig/Afua Start Time Stop Time Status Last Admin Dose Admin Acetaminophen (Tylenol) 650 mg PRN Q4HRS PRN 11/30/18 20:15 12/01/18 15:41 650 MG Albumin Human 200 ml @ 200 mls/hr 1X PRN PRN 11/30/18 07:45 11/30/18 13:44 DC Albuterol Sulfate (Ventolin Neb Soln) 2.5 mg PRN Q6HRS PRN 11/30/18 13:45 Amlodipine Besylate (Norvasc) 10 mg DAILY 11/30/18 09:00 12/01/18 13:19 10 MG Aspirin (Anshul Aspirin) 325 mg 1X ONCE 11/29/18 19:45 11/29/18 19:46 DC 11/29/18 20:19 325 MG Bupivacaine HCl/ Epinephrine Bitart (Sensorcain-Mpf Epi 0.5%-[id number]) 30 ml STK-MED ONCE 12/02/18 07:36 12/02/18 07:37 DC 12/02/18 09:50 30 ML Calcitriol (Rocaltrol) 0.25 mcg DAILY 11/30/18 09:00 12/01/18 13:12 0.25 MCG Calcium Carbonate/ Glycine (Tums) 500 mg PRN BID PRN 11/30/18 13:30 Carvedilol (Coreg) 12.5 mg BIDWMEALS 11/30/18 08:00 12/01/18 17:24 12.5 MG Cinacalcet (Sensipar) 60 mg DAILY 11/30/18 09:00 12/01/18 13:12 60 MG Clonidine HCl (Catapres) 0.2 mg BID 11/29/18 21:00 12/01/18 22:29 0.2 MG Darbepoetin David (Aranesp) 60 mcg WEEKLYHS 12/07/18 21:00 Dexamethasone Sodium Phosphate (Decadron) 20 mg STK-MED ONCE 12/02/18 09:06 12/02/18 09:07 DC Dextrose (Dextrose 50%-Water Syringe) 12.5 gm PRN Q15MIN PRN 11/30/18 10:30 UNV Diphenhydramine HCl (Benadryl) 25 mg 1X PRN PRN 11/30/18 07:45 12/01/18 07:44 DC Docusate Sodium (Colace) 100 mg BID 11/29/18 21:00 12/01/18 22:28 100 MG Fentanyl Citrate (Fentanyl 2ml Vial) 100 mcg STK-MED ONCE 12/02/18 09:05 12/02/18 09:06 DC Fluticasone Propionate (Flonase) 2 spray DAILY 11/30/18 14:00 12/01/18 13:31 2 SPRAY Furosemide (Lasix) 80 mg [id number] 11/29/18 20:00 12/01/18 13:13 80 MG Heparin Sodium (Porcine) 5000 unit/Sodium Chloride 505 ml @ 505 mls/hr 1X ONCE 12/02/18 07:00 12/02/18 07:59 DC 12/02/18 09:51 Info (PHARMACY MONITORING -- do not chart) 1 each PRN DAILY PRN 12/01/18 10:30 UNV Insulin Glargine (Lantus) 32 units HS 11/29/18 21:00 12/01/18 22:32 24 UNITS Insulin Human Lispro (HumaLOG) 10 units 1X ONCE 12/02/18 09:45 12/02/18 09:46 DC Iron Sucrose 200 mg/Sodium Chloride 110 ml @ 55 mls/hr 1X ONCE 11/29/18 19:15 11/29/18 21:14 DC 11/29/18 22:20 55 MLS/HR Labetalol HCl (Normodyne Iv Push) 10 mg PRN Q2HR PRN 11/30/18 04:00 11/30/18 04:17 10 MG Lidocaine HCl (Lidocaine Pf 2% Vial) 5 ml STK-MED ONCE 12/02/18 09:05 12/02/18 09:06 DC Lisinopril (Prinivil) 40 mg BID 11/29/18 21:00 12/01/18 22:28 40 MG Non-Formulary Medication (Epoetin David (Procrit)) 10,000 unit WEEKLY 12/07/18 09:00 12/07/18 09:00 DC Ondansetron HCl (Zofran) 4 mg STK-MED ONCE 12/02/18 09:06 12/02/18 09:07 DC Pantoprazole Sodium (Protonix) 40 mg DAILYAC 11/30/18 14:00 12/01/18 13:30 40 MG Piperacillin Sod/ Tazobactam Sod (Zosyn Per Pharmacy) 1 each PRN DAILY PRN 11/30/18 12:15 Piperacillin Sod/ Tazobactam Sod 2.25 gm/Sodium Chloride 50 ml @ 100 mls/hr Q8HRS 11/30/18 13:00 12/02/18 06:30 100 MLS/HR Piperacillin Sod/ Tazobactam Sod 3.375 gm/Sodium Chloride 50 ml @ 100 mls/hr 1X ONCE 11/29/18 18:15 11/29/18 18:44 DC 11/29/18 18:45 100 MLS/HR Polyethylene Glycol (miraLAX PACKET) 17 gm PRN DAILY PRN 11/30/18 17:00 Propofol 20 ml @ As Directed STK-MED ONCE 12/02/18 09:06 12/02/18 09:07 DC Rocuronium [place] (Zemuron) 50 mg STK-MED ONCE 12/02/18 09:05 12/02/18 09:06 DC Sennosides (Senna) 8.6 mg BID 11/29/18 21:00 12/01/18 22:29 8.6 MG Sevelamer Carbonate (Renvela) 4,000 mg TIDWMEALS 11/30/18 08:00 12/01/18 23:09 4,000 MG Simvastatin (Zocor) 20 mg HS 11/29/18 21:00 12/01/18 22:28 20 MG Sodium Chloride 1,000 ml @ 400 mls/hr Q2H30M PRN 12/01/18 07:00 12/01/18 18:59 DC Sodium Cl/Sod Bicarb/Potass Cl/ PEG (Golytely) 4,000 ml 1X ONCE 11/30/18 18:00 11/30/18 18:01 DC 11/30/18 17:33 4,000 ML Vancomycin HCl (Vanco Per Pharmacy) 1 each PRN DAILY PRN 11/30/18 12:15 12/01/18 15:42 1 EACH Vancomycin HCl (Vancomycin Random Level) 1 each 1X ONCE 11/30/18 16:00 11/30/18 16:01 DC 11/30/18 16:00 1 EACH Vancomycin HCl 500 mg/Sodium Chloride 100 ml @ 100 mls/hr QMWF 12/01/18 16:00 12/01/18 17:22 100 MLS/HR Vancomycin HCl 2 gm/Sodium Chloride 500 ml @ 250 mls/hr 1X ONCE 11/29/18 19:00 11/29/18 20:59 DC 11/29/18 18:46 250 MLS/HR Vitamin B Complex/ Vitamin C (Johanna-Celia) 1 tab DAILY 11/30/18 09:00 12/01/18 13:13 1 TAB Vitamin D (Vitamin D3) 5,000 unit DAILY 11/30/18 09:00 12/01/18 13:13 5,000 UNIT Lab Laboratory Tests Test 12/01/18 12:36 12/01/18 16:40 12/01/18 21:18 12/02/18 04:40 Glucose (Fingerstick) 116 mg/dL (70-99) 238 mg/dL (70-99) 317 mg/dL (70-99) White Blood Count 9.7 x10^3/uL (4.0-11.0) Red Blood Count 2.59 x10^6/uL (4.30-5.70) Hemoglobin 7.3 g/dL (13.0-17.5) Hematocrit 22.1 % (39.0-53.0) Mean Corpuscular Volume 85 fL (79-100) Mean Corpuscular Hemoglobin 28 pg (25-35) Mean Corpuscular Hemoglobin Concent 33 g/dL (31-37) Red Cell Distribution Width 18.9 % (11.5-14.5) Platelet Count 236 x10^3/uL (140-400) Neutrophils (%) (Auto) 78 % (31-73) Lymphocytes (%) (Auto) 7 % (24-48) Monocytes (%) (Auto) 10 % (0-9) Eosinophils (%) (Auto) 5 % (0-3) Basophils (%) (Auto) 0 % (0-3) Neutrophils # (Auto) 7.6 x10^3uL (1.8-7.7) Lymphocytes # (Auto) 0.7 x10^3/uL (1.0-4.8) Monocytes # (Auto) 0.9 x10^3/uL (0.0-1.1) Eosinophils # (Auto) 0.4 x10^3/uL (0.0-0.7) Basophils # (Auto) 0.0 x10^3/uL (0.0-0.2) Reticulocyte Count (auto) 3.3 % (0.5-2.5) Sodium Level 134 mmol/L (136-145) Potassium Level 4.7 mmol/L (3.5-5.1) Chloride Level 95 mmol/L (98-107) Carbon Dioxide Level 30 mmol/L (21-32) Anion Gap 9 (6-14) Blood Urea Nitrogen 28 mg/dL (8-26) Creatinine 8.3 mg/dL (0.7-1.3) Estimated GFR (Cockcroft-Gault) 8.8 BUN/Creatinine Ratio 3 (6-20) Glucose Level 450 mg/dL (70-99) Calcium Level 8.6 mg/dL (8.5-10.1) Total Bilirubin 0.5 mg/dL (0.2-1.0) Aspartate Amino Transf (AST/SGOT) 111 U/L (15-37) Alanine Aminotransferase (ALT/SGPT) 190 U/L (16-63) Alkaline Phosphatase 168 U/L (46-116) Total Protein 6.5 g/dL (6.4-8.2) Albumin 2.2 g/dL (3.4-5.0) Albumin/Globulin Ratio 0.5 (1.0-1.7) Test 12/02/18 08:04 Glucose (Fingerstick) 325 mg/dL (70-99) Results All relevant outside records, renal labs, imaging studies, telemetry/EKG's were reviewed. AYANNA PEREZ MD Dec 02, 2018 10:24
[2018-12-02 10:26] LABS: TESTOSTERONE TOTAL 156 ng/dL (264-916)
[2018-12-02] MEDS ORDERED: METOCLOPRAMIDE HCL 10 MG/2 ML VIAL. ONE (10:59)
[2018-12-02] MEDS ORDERED: levoFLOXacin 500mg PREMIX 500 MG/100 ML BAG IV ONE (11:00)
[2018-12-02] MEDS: SEVELAMER CARBONATE 800 MG TABLET. PO SCH ×2 (12:00→17:00)
[2018-12-02] MEDS ORDERED: NEOSTIGMINE 10 MG/10 ML VIAL. ONE (12:25)
[2018-12-02] MEDS ORDERED: GLYCOPYRROLATE 1 MG/5 ML VIAL. ONE (12:25)
[2018-12-02] MEDS ORDERED: SEVOFLURANE > 120 MINUTES. IH ONE (12:27)
[2018-12-02] MEDS ORDERED: IV RINGERS,LACTATED 1000ML 1,000 ML IV SCH (12:51)
[2018-12-02] MEDS ORDERED: fentaNYL PF VIAL 100 MCG/2 ML VIAL IV PRN (13:00)
[2018-12-02] MEDS ORDERED: LIDOCAINE 1% PF 2 ML VIAL. ID PRN (13:00)
[2018-12-02] MEDS ORDERED: PROCHLORPERAZINE 10 MG/2 ML VIAL. IV PRN (13:00)
[2018-12-02] MEDS ORDERED: ONDANSETRON PF 4 MG/2 ML VIAL. IV PRN (13:00)
[2018-12-02] MEDS ORDERED: HYDROmorphone 2 MG/ML VIAL IV PRN (13:00)
[2018-12-02] MEDS ORDERED: MORPHINE SULFATE 4 MG/ML VIAL. IV PRN (13:00)
[2018-12-02] MEDS: fentaNYL PF VIAL 100 MCG/2 ML VIAL IV PRN ×2 (13:17→13:46)
--- NOTE | 2018-12-02 13:23 | PDOC ---
BRIEF OPERATIVE NOTE Date: Dec 02, 2018 Pre-Op Diagnosis malfunctioning PD catheter, umbilical hernia Post-Op Diagnosis same, adhesions Procedure Performed l/s ->open reposition PD cath, ANDREWS Surgeon Michael Anesthesia Type: General Blood Loss 25cc IV Fluid 1000cc Specimens Obtained none Findings extensive adhesions upper abdomen, tissue ingrowth PD catheter Complications conversion to open Operative Note Wk # [id number] PONCHO STRANGE MD Dec 02, 2018 13:23
[2018-12-02] MEDS: VANCOMYCIN PER PHARMACY MC PRN (13:47)
--- NOTE | 2018-12-02 13:52 | RAD ---
KUB, 12/02/2018: HISTORY: Postop hernia repair An NG tube extends into the proximal aspect of the stomach. The abdominal gas pattern is unremarkable. There is a surgical drain overlying the pelvis. There is an additional rounded radiopacity overlying the left side of the pelvis which may be an additional drain or peritoneal dialysis catheter. A linear radiopacity overlying the lower pelvis near the midline may represent a bladder catheter. Clinical correlation is suggested. There is no evidence of a retained surgical needle, instrument or surgical sponge on this exam. Electronically signed by: Wilbert Flynn MD (12/02/2018 1:49 PM) [facility]
--- NOTE | 2018-12-02 14:17 | EKG ---
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
[2018-12-02] MEDS: HYDROmorphone 2 MG/ML VIAL IV PRN ×4 (14:18→22:53)
--- NOTE | 2018-12-02 14:23 | OP ---
DATE OF SURGERY: 12/02/2018 PREOPERATIVE DIAGNOSIS: Malfunctioning peritoneal dialysis catheter. POSTOPERATIVE DIAGNOSES: Malfunctioning peritoneal dialysis catheter, with abdominal adhesions. PROCEDURE: Laparoscopic converted to open repositioning PD catheter and lysis of adhesions. SURGEON: Ahsan Strange MD ANESTHESIA: General endotracheal. ESTIMATED BLOOD LOSS: 25. IV FLUIDS: 1 liter. INDICATIONS: The patient is a 38-year-old end-stage renal patient, currently on hemodialysis due to malfunction of his PD catheter, which was placed some 5-6 years ago. He is brought for repositioning. OPERATIVE FINDINGS: There were extensive adhesions in the upper abdomen. The catheter resided in the true pelvis with some fatty tissue ingrowth. DESCRIPTION OF PROCEDURE: The patient was brought to the operating suite, given a general endotracheal anesthetic and the abdomen prepped and draped in usual sterile fashion. A left upper quadrant incision was infiltrated with local, incised and a 5 mm Visiport attempted placement in the left upper quadrant, however, unable to do so due to adhesions. A second attempt in the midline above the umbilicus was made with similar findings. The umbilical hernia sac was then exposed with a supraumbilical incision. This allowed placement of a 5 mm port and initiating a pneumoperitoneum. Camera was inserted. The upper abdomen was expected showing extensive adhesions. The attempted ports placed were not seen and as such extent was not discernible. As such, I opted to extend the midline port site to a midline incision and inspect the abdominal contents. This was done. This revealed extensive adhesions of the omentum and bowel to the posterior abdominal wall. These were taken down, and the site of attempted port placement was identified. A small rent in the colon was closed with a single 3-0 chromic suture imbricated with 3-0 Vicryl. The bowel was mobilized to assure no through and through injury and none was seen. The initial port site was carefully inspected and revealed no evidence of injury to abdominal contents. The catheter was then delivered out of the abdomen and contents in the pigtail milked free. It flushed easily and was replaced back into the true pelvis. A correct sponge count was obtained, the incision was closed by running the posterior sheath peritoneum with 0 Vicryl. Anterior sheath closed in running fashion with looped 0 PDS tied in the middle. Skin closed with Monocryl. Sterile dressings applied. The catheter was "packed" with 60 mL of heparinized saline. Postop foreign body film was negative for unexplained foreign body. The patient was awakened from his anesthetic and taken to the recovery room in satisfactory condition. AHSAN STRANGE MD DR: [email or web address] JOB#: [id number] / [id number] ARIANNE Styles MD
[2018-12-02 15:00] VITALS: BP 164/90
--- NOTE | 2018-12-02 15:20 | PDOC ---
PROGRESS NOTES Chief Complaint Chief Complaint Sepsis POA. Procalcitonin 94.62. ? line infection - clinically better GPC bacteremia (3 of 4 bottles) POA 11/29 awaiting for sensitivities. Leukocytosis - better Transaminitis ? sepsis - increasing Fever - curve improving PCN allergy - nausea. Has tolerated Zosyn without problem Constipation Acute diastolic CHF CKD on HD (s/p HDC 11/26; small neck wound w/ stitch in place) Malfunctioning peritoneal catheter Anemia. s/p iron and PRBCs Diabetes History of Present Illness History of Present Illness Patient status post repositioning of peritoneal dialysis catheter, he otlerated procedure well. all concerns addressed to the best of my abilities. with patient 's significant other. Vitals Vitals Vital Signs Date Time Temp Pulse Resp B/P (MAP) Pulse Ox O2 Delivery O2 Flow Rate FiO2 12/02/18 14:18 16 Nasal Cannula 2.0 12/02/18 13:44 79 151/92 95 12/02/18 12:42 97.6 97.6 Physical Exam Physical Exam GEN: Coop, NAD HEENT: Pupils are equally round, reactive. Normal conjunctivae. Oral cavity: Pharynx pink and moist. NECK: Supple. He has a small wound with a stitch in place on right-sided neck without surrounding redness or drainage. Scabbing LUNGS: Clear to auscultation. HEART: S1 and S2. ABDOMEN: Less distended, soft, nontender with bowel sounds present. Peritoneal dialysis catheter clean. EXTREMITIES: No gross edema or cyanosis. SKIN: Warm without generalized rash. NEUROLOGIC: Alert and oriented x 3. LINES: Right-sided tunneled HD catheter (11/26) without signs of any complications. RUE PIV - mild swelling - no warmth/erythema. Trace discomfort General: Alert, Oriented X3, Cooperative, No acute distress Heart: Regular rate, No murmurs Lungs: Clear Abdomen: Normal bowel sounds, Soft, No tenderness Extremities: No clubbing, No cyanosis Skin: No breakdown Labs LABS Laboratory Tests Test 12/01/18 16:40 12/01/18 21:18 12/02/18 04:40 12/02/18 08:04 Glucose (Fingerstick) 238 mg/dL (70-99) 317 mg/dL (70-99) 325 mg/dL (70-99) White Blood Count 9.7 x10^3/uL (4.0-11.0) Red Blood Count 2.59 x10^6/uL (4.30-5.70) Hemoglobin 7.3 g/dL (13.0-17.5) Hematocrit 22.1 % (39.0-53.0) Mean Corpuscular Volume 85 fL (79-100) Mean Corpuscular Hemoglobin 28 pg (25-35) Mean Corpuscular Hemoglobin Concent 33 g/dL (31-37) Red Cell Distribution Width 18.9 % (11.5-14.5) Platelet Count 236 x10^3/uL (140-400) Neutrophils (%) (Auto) 78 % (31-73) Lymphocytes (%) (Auto) 7 % (24-48) Monocytes (%) (Auto) 10 % (0-9) Eosinophils (%) (Auto) 5 % (0-3) Basophils (%) (Auto) 0 % (0-3) Neutrophils # (Auto) 7.6 x10^3uL (1.8-7.7) Lymphocytes # (Auto) 0.7 x10^3/uL (1.0-4.8) Monocytes # (Auto) 0.9 x10^3/uL (0.0-1.1) Eosinophils # (Auto) 0.4 x10^3/uL (0.0-0.7) Basophils # (Auto) 0.0 x10^3/uL (0.0-0.2) Reticulocyte Count (auto) 3.3 % (0.5-2.5) Sodium Level 134 mmol/L (136-145) Potassium Level 4.7 mmol/L (3.5-5.1) Chloride Level 95 mmol/L (98-107) Carbon Dioxide Level 30 mmol/L (21-32) Anion Gap 9 (6-14) Blood Urea Nitrogen 28 mg/dL (8-26) Creatinine 8.3 mg/dL (0.7-1.3) Estimated GFR (Cockcroft-Gault) 8.8 BUN/Creatinine Ratio 3 (6-20) Glucose Level 450 mg/dL (70-99) Calcium Level 8.6 mg/dL (8.5-10.1) Total Bilirubin 0.5 mg/dL (0.2-1.0) Aspartate Amino Transf (AST/SGOT) 111 U/L (15-37) Alanine Aminotransferase (ALT/SGPT) 190 U/L (16-63) Alkaline Phosphatase 168 U/L (46-116) Total Protein 6.5 g/dL (6.4-8.2) Albumin 2.2 g/dL (3.4-5.0) Albumin/Globulin Ratio 0.5 (1.0-1.7) Vitamin B12 Level > 2000 pg/mL (247-911) Total Testosterone 156 ng/dL (264-916) Test 12/02/18 12:51 Glucose (Fingerstick) 229 mg/dL (70-99) Assessment and Plan Assessmemt and Plan Problems Medical Problems: (1) Abnormal EKG Status: Acute (2) Elevated troponin Status: Acute (3) End stage renal disease Status: Acute (4) Fever Status: Acute Comment Review of Relevant I have reviewed the following items javy (where applicable) has been applied. Labs Laboratory Tests Test 11/30/18 16:15 11/30/18 17:30 11/30/18 20:28 12/01/18 03:10 Random Vancomycin Level 19.2 mcg/mL Glucose (Fingerstick) 285 mg/dL (70-99) 225 mg/dL (70-99) White Blood Count 13.6 x10^3/uL (4.0-11.0) Red Blood Count 1.90 x10^6/uL (4.30-5.70) Hemoglobin 5.4 g/dL (13.0-17.5) Hematocrit 16.6 % (39.0-53.0) Mean Corpuscular Volume 87 fL (79-100) Mean Corpuscular Hemoglobin 29 pg (25-35) Mean Corpuscular Hemoglobin Concent 33 g/dL (31-37) Red Cell Distribution Width 19.1 % (11.5-14.5) Platelet Count 240 x10^3/uL (140-400) Neutrophils (%) (Auto) 90 % (31-73) Lymphocytes (%) (Auto) 3 % (24-48) Monocytes (%) (Auto) 5 % (0-9) Eosinophils (%) (Auto) 2 % (0-3) Basophils (%) (Auto) 0 % (0-3) Neutrophils # (Auto) 12.3 x10^3uL (1.8-7.7) Lymphocytes # (Auto) 0.3 x10^3/uL (1.0-4.8) Monocytes # (Auto) 0.7 x10^3/uL (0.0-1.1) Eosinophils # (Auto) 0.2 x10^3/uL (0.0-0.7) Basophils # (Auto) 0.0 x10^3/uL (0.0-0.2) Sodium Level 138 mmol/L (136-145) Potassium Level 4.3 mmol/L (3.5-5.1) Chloride Level 98 mmol/L (98-107) Carbon Dioxide Level 29 mmol/L (21-32) Anion Gap 11 (6-14) Blood Urea Nitrogen 36 mg/dL (8-26) Creatinine 10.7 mg/dL (0.7-1.3) Estimated GFR (Cockcroft-Gault) 6.6 BUN/Creatinine Ratio 3 (6-20) Glucose Level 212 mg/dL (70-99) Calcium Level 8.7 mg/dL (8.5-10.1) Total Bilirubin 0.6 mg/dL (0.2-1.0) Aspartate Amino Transf (AST/SGOT) 108 U/L (15-37) Alanine Aminotransferase (ALT/SGPT) 136 U/L (16-63) Alkaline Phosphatase 132 U/L (46-116) Total Protein 6.4 g/dL (6.4-8.2) Albumin 2.3 g/dL (3.4-5.0) Albumin/Globulin Ratio 0.6 (1.0-1.7) Test 12/01/18 07:15 12/01/18 12:36 12/01/18 16:40 12/01/18 21:18 Glucose (Fingerstick) 309 mg/dL (70-99) 116 mg/dL (70-99) 238 mg/dL (70-99) 317 mg/dL (70-99) Test 12/02/18 04:40 12/02/18 08:04 12/02/18 12:51 White Blood Count 9.7 x10^3/uL (4.0-11.0) Red Blood Count 2.59 x10^6/uL (4.30-5.70) Hemoglobin 7.3 g/dL (13.0-17.5) Hematocrit 22.1 % (39.0-53.0) Mean Corpuscular Volume 85 fL (79-100) Mean Corpuscular Hemoglobin 28 pg (25-35) Mean Corpuscular Hemoglobin Concent 33 g/dL (31-37) Red Cell Distribution Width 18.9 % (11.5-14.5) Platelet Count 236 x10^3/uL (140-400) Neutrophils (%) (Auto) 78 % (31-73) Lymphocytes (%) (Auto) 7 % (24-48) Monocytes (%) (Auto) 10 % (0-9) Eosinophils (%) (Auto) 5 % (0-3) Basophils (%) (Auto) 0 % (0-3) Neutrophils # (Auto) 7.6 x10^3uL (1.8-7.7) Lymphocytes # (Auto) 0.7 x10^3/uL (1.0-4.8) Monocytes # (Auto) 0.9 x10^3/uL (0.0-1.1) Eosinophils # (Auto) 0.4 x10^3/uL (0.0-0.7) Basophils # (Auto) 0.0 x10^3/uL (0.0-0.2) Reticulocyte Count (auto) 3.3 % (0.5-2.5) Sodium Level 134 mmol/L (136-145) Potassium Level 4.7 mmol/L (3.5-5.1) Chloride Level 95 mmol/L (98-107) Carbon Dioxide Level 30 mmol/L (21-32) Anion Gap 9 (6-14) Blood Urea Nitrogen 28 mg/dL (8-26) Creatinine 8.3 mg/dL (0.7-1.3) Estimated GFR (Cockcroft-Gault) 8.8 BUN/Creatinine Ratio 3 (6-20) Glucose Level 450 mg/dL (70-99) Calcium Level 8.6 mg/dL (8.5-10.1) Total Bilirubin 0.5 mg/dL (0.2-1.0) Aspartate Amino Transf (AST/SGOT) 111 U/L (15-37) Alanine Aminotransferase (ALT/SGPT) 190 U/L (16-63) Alkaline Phosphatase 168 U/L (46-116) Total Protein 6.5 g/dL (6.4-8.2) Albumin 2.2 g/dL (3.4-5.0) Albumin/Globulin Ratio 0.5 (1.0-1.7) Vitamin B12 Level > 2000 pg/mL (247-911) Total Testosterone 156 ng/dL (264-916) Glucose (Fingerstick) 325 mg/dL (70-99) 229 mg/dL (70-99) Laboratory Tests Test 12/01/18 16:40 12/01/18 21:18 12/02/18 04:40 12/02/18 08:04 Glucose (Fingerstick) 238 mg/dL (70-99) 317 mg/dL (70-99) 325 mg/dL (70-99) White Blood Count 9.7 x10^3/uL (4.0-11.0) Red Blood Count 2.59 x10^6/uL (4.30-5.70) Hemoglobin 7.3 g/dL (13.0-17.5) Hematocrit 22.1 % (39.0-53.0) Mean Corpuscular Volume 85 fL (79-100) Mean Corpuscular Hemoglobin 28 pg (25-35) Mean Corpuscular Hemoglobin Concent 33 g/dL (31-37) Red Cell Distribution Width 18.9 % (11.5-14.5) Platelet Count 236 x10^3/uL (140-400) Neutrophils (%) (Auto) 78 % (31-73) Lymphocytes (%) (Auto) 7 % (24-48) Monocytes (%) (Auto) 10 % (0-9) Eosinophils (%) (Auto) 5 % (0-3) Basophils (%) (Auto) 0 % (0-3) Neutrophils # (Auto) 7.6 x10^3uL (1.8-7.7) Lymphocytes # (Auto) 0.7 x10^3/uL (1.0-4.8) Monocytes # (Auto) 0.9 x10^3/uL (0.0-1.1) Eosinophils # (Auto) 0.4 x10^3/uL (0.0-0.7) Basophils # (Auto) 0.0 x10^3/uL (0.0-0.2) Reticulocyte Count (auto) 3.3 % (0.5-2.5) Sodium Level 134 mmol/L (136-145) Potassium Level 4.7 mmol/L (3.5-5.1) Chloride Level 95 mmol/L (98-107) Carbon Dioxide Level 30 mmol/L (21-32) Anion Gap 9 (6-14) Blood Urea Nitrogen 28 mg/dL (8-26) Creatinine 8.3 mg/dL (0.7-1.3) Estimated GFR (Cockcroft-Gault) 8.8 BUN/Creatinine Ratio 3 (6-20) Glucose Level 450 mg/dL (70-99) Calcium Level 8.6 mg/dL (8.5-10.1) Total Bilirubin 0.5 mg/dL (0.2-1.0) Aspartate Amino Transf (AST/SGOT) 111 U/L (15-37) Alanine Aminotransferase (ALT/SGPT) 190 U/L (16-63) Alkaline Phosphatase 168 U/L (46-116) Total Protein 6.5 g/dL (6.4-8.2) Albumin 2.2 g/dL (3.4-5.0) Albumin/Globulin Ratio 0.5 (1.0-1.7) Vitamin B12 Level > 2000 pg/mL (247-911) Total Testosterone 156 ng/dL (264-916) Test 12/02/18 12:51 Glucose (Fingerstick) 229 mg/dL (70-99) Microbiology 11/29/18 Blood Culture - Final, Complete Medications Current Medications Vancomycin HCl (Vanco Per Pharmacy) 1 each 1X ONCE MC ; Start 11/29/18 at 18:15 ; Stop 11/29/18 at 18:16; Status Cancel Piperacillin Sod/ Tazobactam Sod 3.375 gm/Sodium Chloride 50 ml @ 100 mls/hr 1X ONCE IV Last administered on 11/29/18at 18:45; Start 11/29/18 at 18:15; Stop 11/29/18 at 18:44; Status DC Ondansetron HCl (Zofran) 4 mg 1X ONCE IV Last administered on 11/29/18at 18:43 ; Start 11/29/18 at 18:15; Stop 11/29/18 at 18:23; Status DC Vancomycin HCl 2 gm/Sodium Chloride 500 ml @ 250 mls/hr 1X ONCE IV Last administered on 11/29/18 18:46; Start 11/29/18 at 19:00; Stop 11/29/18 at 20:59 ; Status DC Iron Sucrose 200 mg/Sodium Chloride 110 ml @ 55 mls/hr 1X ONCE IV Last administered on 11/29/18 22:20; Start 11/29/18 at 19:15; Stop 11/29/18 at 21:14 ; Status DC Ondansetron HCl (Zofran) 4 mg PRN Q8HRS PRN IV NAUSEA/VOMITING; Start 11/29/18 at 19:30; Stop 11/29/18 at 19:36; Status DC Fentanyl Citrate (Fentanyl 2ml Vial) 50 mcg PRN Q1HR PRN IV PAIN Last administered on 11/30/18 16:23; Start 11/29/18 at 19:30; Stop 11/30/18 at 19:29 ; Status DC Acetaminophen (Tylenol) 650 mg PRN Q4HRS PRN PO FEVER Last administered on 11/30at 17:35; Start 11/29/18 at 19:30; Stop 11/30/18 at 19:29; Status DC Ondansetron HCl (Zofran) 4 mg PRN Q6HRS PRN IV NAUSEA/VOMITING; Start 11/29/18 at 19:45 Amlodipine Besylate (Norvasc) 10 mg DAILY PO Last administered on 12/01/18at 13: 19; Start 11/30/18 at 09:00 Clonidine HCl (Catapres) 0.2 mg BID PO Last administered on 12/01/18at 22:29; Start 11/29/18 at 21:00 Docusate Sodium (Colace) 100 mg BID PO Last administered on 12/01/18 22:28; Start 11/29/18 at 21:00 Furosemide (Lasix) 80 mg BID92 PO Last administered on 12/01/18 13:13; Start 11/29/18 at 20:00 Insulin Glargine (Lantus) 32 units HS SQ Last administered on 12/01/18at 22:32; Start 11/29/18 at 21:00 Lisinopril (Prinivil) 40 mg BID PO Last administered on 12/01/18at 22:28; Start 11/29/18 at 21:00 Sevelamer Carbonate (Renvela) 4,000 mg TIDWMEALS PO Last administered on 23:09; Start 11/30/18 at 08:00 Calcitriol (Rocaltrol) 0.25 mcg DAILY PO Last administered on 12/01/18 13:12; Start 11/30/18 at 09:00 Carvedilol (Coreg) 12.5 mg BIDWMEALS PO Last administered on 12/01/18 17:24; Start 11/30/18 at 08:00 Vitamin D (Vitamin D3) 5,000 unit DAILY PO Last administered on 12/01/18 13:13 ; Start 11/30/18 at 09:00 Cinacalcet (Sensipar) 60 mg DAILY PO Last administered on 12/01/18 13:12; Start 11/30/18 at 09:00 Polyethylene Glycol (miraLAX PACKET) 17 gm DAILY PO Last administered on 12:09; Start 11/30/18 at 09:00 Sennosides (Senna) 8.6 mg BID PO Last administered on 12/01/18 22:29; Start at 21:00 Simvastatin (Zocor) 20 mg HS PO Last administered on 12/01/18 22:28; Start at 21:00 Vitamin B Complex/ Vitamin C (Johanna-Celia) 1 tab DAILY PO Last administered on 13:13; Start 11/30/18 at 09:00 Insulin Human Lispro (HumaLOG) 0-9 UNITS TIDWMEALS SQ Last administered on 11/29at 22:44; Start 11/30/18 at 08:00; Stop 11/30/18 at 10:28; Status DC Dextrose (Dextrose 50%-Water Syringe) 12.5 gm PRN Q15MIN PRN IV SEE COMMENTS; Start 11/29/18 at 19:45 Aspirin (Anshul Aspirin) 325 mg 1X ONCE PO Last administered on 11/29/18 20:19 ; Start 11/29/18 at 19:45; Stop 11/29/18 at 19:46; Status DC Labetalol HCl (Normodyne Iv Push) 10 mg PRN Q2HR PRN IVP HYPERTENSION, SEE COMMENTS Last administered on 11/30/18at 04:17; Start 11/30/18 at 04:00 Sodium Chloride 1,000 ml @ 100 mls/hr 1X ONCE IV Last administered on at 04:17; Start 11/30/18 at 04:30; Stop 11/30/18 at 05:57; Status DC Darbepoetin David (Aranesp) 100 mcg 1X ONCE SQ Last administered on 11/30/18at 06:06; Start 11/30/18 at 07:00; Stop 11/30/18 at 07:01; Status DC Sodium Chloride 1,000 ml @ 1,000 mls/hr Q1H PRN IV hypotension; Start 11/30/18 at 07:34; Stop 11/30/18 at 13:39; Status DC Albumin Human 200 ml @ 200 mls/hr 1X PRN PRN IV Hypotension; Start 11/30/18 at 07:45; Stop 11/30/18 at 13:44; Status DC Diphenhydramine HCl (Benadryl) 25 mg 1X PRN PRN IV ITCHING; Start 11/30/18 at 07:45; Stop 12/01/18 at 07:44; Status DC Sodium Chloride 1,000 ml @ 400 mls/hr Q2H30M PRN IV PATENCY; Start 11/30/18 at 07:34; Stop 11/30/18 at 19:33; Status DC Info (PHARMACY MONITORING -- do not chart) 1 each PRN DAILY PRN MC SEE COMMENTS ; Start 11/30/18 at 07:45 Info (PHARMACY MONITORING -- do not chart) 1 each PRN DAILY PRN MC SEE COMMENTS ; Start 11/30/18 at 07:45; Status UNV Darbepoetin David (Aranesp) 60 mcg WEEKLYHS SQ ; Start 11/30/18 at 21:00; Stop at 21:00; Status DC Darbepoetin David (Aranesp) 60 mcg WEEKLYHS SQ ; Start 12/07/18 at 21:00 Insulin Human Lispro (HumaLOG) 0-9 UNITS TIDWMEALS SQ Last administered on 12/02at 06:44; Start 11/30/18 at 12:00 Dextrose (Dextrose 50%-Water Syringe) 12.5 gm PRN Q15MIN PRN IV SEE COMMENTS; Start 11/30/18 at 10:30; Status UNV Vancomycin HCl (Vanco Per Pharmacy) 1 each PRN DAILY PRN MC SEE COMMENTS Last administered on 12/02/18at 13:47; Start 11/30/18 at 12:15 Piperacillin Sod/ Tazobactam Sod (Zosyn Per Pharmacy) 1 each PRN DAILY PRN MC SEE COMMENTS; Start 11/30/18 at 12:15 Piperacillin Sod/ Tazobactam Sod 2.25 gm/Sodium Chloride 50 ml @ 100 mls/hr Q8HRS IV Last administered on 12/02/18at 06:30; Start 11/30/18 at 13:00 Calcium Carbonate/ Glycine (Tums) 500 mg PRN BID PRN PO INDIGESTION; Start at 13:30 Albuterol Sulfate (Ventolin Neb Soln) 2.5 mg PRN Q6HRS PRN NEB SHORTNESS OF BREATH; Start 11/30/18 at 13:45 Non-Formulary Medication (Epoetin David (Procrit)) 10,000 unit WEEKLY IJ ; Start 12/07/18 at 09:00; Stop 12/07/18 at 09:00; Status DC Fluticasone Propionate (Flonase) 2 spray DAILY NS Last administered on at 13:31; Start 11/30/18 at 14:00 Pantoprazole Sodium (Protonix) 40 mg DAILYAC PO Last administered on 12/01/18at 13:30; Start 11/30/18 at 14:00 Vancomycin HCl (Vancomycin Random Level) 1 each 1X ONCE MC Last administered on 11/30/18at 16:00; Start 11/30/18 at 16:00; Stop 11/30/18 at 16:01; Status DC Sodium Cl/Sod Bicarb/Potass Cl/ PEG (Golytely) 4,000 ml 1X ONCE PO Last administered on 11/30/18at 17:33; Start 11/30/18 at 18:00; Stop 11/30/18 at 18:01 ; Status DC Polyethylene Glycol (miraLAX PACKET) 17 gm PRN DAILY PRN PO CONSTIPATION; Start 11/30/18 at 17:00 Acetaminophen (Tylenol) 650 mg PRN Q4HRS PRN PO FEVER Last administered on 12/01at 15:41; Start 11/30/18 at 20:15 Vancomycin HCl 500 mg/Sodium Chloride 100 ml @ 100 mls/hr QMWF IV Last administered on 12/01/18at 17:22; Start 12/01/18 at 16:00 Sodium Chloride 1,000 ml @ 1,000 mls/hr Q1H PRN IV hypotension; Start 12/01/18 at 07:00; Stop 12/01/18 at 18:00; Status DC Sodium Chloride 1,000 ml @ 400 mls/hr Q2H30M PRN IV PATENCY; Start 12/01/18 at 07:00; Stop 12/01/18 at 18:59; Status DC Info (PHARMACY MONITORING -- do not chart) 1 each PRN DAILY PRN MC SEE COMMENTS ; Start 12/01/18 at 10:30; Status UNV Info (PHARMACY MONITORING -- do not chart) 1 each PRN DAILY PRN MC SEE COMMENTS ; Start 12/01/18 at 10:30; Status UNV Heparin Sodium (Porcine) 5000 unit/Sodium Chloride 505 ml @ 505 mls/hr 1X ONCE IRR Last administered on 12/02/18at 11:05; Start 12/02/18 at 07:00; Stop at 07:59; Status DC Bupivacaine HCl/ Epinephrine Bitart (Sensorcain-Mpf Epi 0.5%-[id number]) 30 ml STK -MED ONCE .ROUTE Last administered on 12/02/18at 11:05; Start 12/02/18 at 07:36 ; Stop 12/02/18 at 07:37; Status DC Fentanyl Citrate (Fentanyl 2ml Vial) 100 mcg STK-MED ONCE .ROUTE ; Start at 09:05; Stop 12/02/18 at 09:06; Status DC Rocuronium [place] (Zemuron) 50 mg STK-MED ONCE .ROUTE ; Start 12/02/18 at 09:05 ; Stop 12/02/18 at 09:06; Status DC Lidocaine HCl (Lidocaine Pf 2% Vial) 5 ml STK-MED ONCE .ROUTE ; Start 12/02/18 at 09:05; Stop 12/02/18 at 09:06; Status DC Propofol 20 ml @ As Directed STK-MED ONCE IV ; Start 12/02/18 at 09:06; Stop at 09:07; Status DC Dexamethasone Sodium Phosphate (Decadron) 20 mg STK-MED ONCE .ROUTE ; Start at 09:06; Stop 12/02/18 at 09:07; Status DC Ondansetron HCl (Zofran) 4 mg STK-MED ONCE .ROUTE ; Start 12/02/18 at 09:06; Stop 12/02/18 at 09:07; Status DC Insulin Human Lispro (HumaLOG) 10 units 1X ONCE SQ ; Start 12/02/18 at 09:45; Stop 12/02/18 at 09:46; Status DC Levofloxacin/ Dextrose 100 ml @ As Directed STK-MED ONCE IV ; Start 12/02/18 at 10:46; Stop 12/02/18 at 10:47; Status DC Metoclopramide HCl (Reglan Vial) 10 mg STK-MED ONCE .ROUTE ; Start 12/02/18 at 10:59; Stop 12/02/18 at 11:00; Status DC Neostigmine Methylsulfate (Bloxiverz) 10 mg STK-MED ONCE .ROUTE ; Start at 12:25; Stop 12/02/18 at 12:26; Status DC Glycopyrrolate (Robinul) 1 mg STK-MED ONCE .ROUTE ; Start 12/02/18 at 12:25; Stop 12/02/18 at 12:26; Status DC Sevoflurane (Ultane) 90 ml STK-MED ONCE IH ; Start 12/02/18 at 12:27; Stop 12/02 at 12:28; Status DC Ondansetron HCl (Zofran) 4 mg PRN Q6HRS PRN IV NAUSEA/VOMITING; Start 12/02/18 at 13:00; Stop 12/03/18 at 12:59 Fentanyl Citrate (Fentanyl 2ml Vial) 25 mcg PRN Q5MIN PRN IV MILD PAIN; Start 12/02/18 at 13:00; Stop 12/03/18 at 12:59 Fentanyl Citrate (Fentanyl 2ml Vial) 50 mcg PRN Q5MIN PRN IV MODERATE TO SEVERE PAIN Last administered on 12/02/18at 13:46; Start 12/02/18 at 13:00; Stop 12/03/18 at 12:59 Morphine Sulfate (Morphine Sulfate) 1 mg PRN Q10MIN PRN IV SEVERE PAIN; Start 12/02/18 at 13:00; Stop 12/03/18 at 12:59 Ringer's Solution 1,000 ml @ 30 mls/hr Q24H IV ; Start 12/02/18 at 12:51; Stop 12/03/18 at 00:50 Lidocaine HCl (Xylocaine-Mpf 1% 2ml Vial) 2 ml 1X PRN PRN ID IV START; Start at 13:00; Stop 12/03/18 at 12:59 Hydromorphone HCl (Dilaudid) 0.5 mg PRN Q10MIN PRN IV SEV PAIN, Second choice; Start 12/02/18 at 13:00; Stop 12/03/18 at 12:59 Prochlorperazine Edisylate (Compazine) 5 mg PACU PRN PRN IV NAUSEA, MRX1; Start 12/02/18 at 13:00; Stop 12/03/18 at 12:59 Sodium Chloride 1,000 ml @ 100 mls/hr Q10H IV Last administered on 12/02/18at 13:04; Start 12/02/18 at 10:45 Hydromorphone HCl (Dilaudid) 1 mg PRN Q4HRS PRN IV pain Last administered on at 14:18; Start 12/02/18 at 13:15 Oxycodone/ Acetaminophen (Percocet 5/325) 1 tab PRN Q4HRS PRN PO PAIN; Start at 13:15 Levofloxacin/ Dextrose 100 ml @ 100 mls/hr 1X ONCE IV ; Start 12/02/18 at 10: 45; Stop 12/02/18 at 13:23; Status DC Lactobacillus Rhamnosus (Culturelle) 1 cap BID PO ; Start 12/02/18 at 21:00 Active Scripts Active Reported Protonix (Pantoprazole Sodium) 20 Mg Tablet.dr 2 Tab PO DAILY Flonase Allergy Relief (Fluticasone Propionate) 9.9 Ml [place].susp 2 Sprays NS DAILY Procrit (Epoetin David) 10,000 Unit/1 Ml Vial 10,000 Unit IJ WEEKLY Tums (Calcium Carbonate) 200 Mg Tab.chew 200 Mg PO BID PRN Proair Respiclick (Albuterol Sulfate) 90 Mcg Aer.pow.ba 1-2 Puff IH PRN Q6HRS PRN Senna (Sennosides) 8.6 Mg Tablet 8.6 Mg PO BID Miralax (Polyethylene Glycol 3350) 17 Gm Powd.pack 1 Packet PO DAILY Colace (Docusate Sodium) 100 Mg Capsule 1 Cap PO BID Carvedilol 25 Mg Tablet 25 Mg PO BIDWMEALS Renvela (Sevelamer Carbonate) 800 Mg Tablet 5 Tab PO TIDWMEALS Furosemide 80 Mg Tablet 1 Tab PO BID Vitamin D (Cholecalciferol (Vitamin D3)) 5,000 Unit Tablet 5,000 Unit PO DAILY Calcitriol 0.25 Mcg Capsule 2 Cap PO DAILY Clonidine Hcl 0.2 Mg Tablet 1 Tab PO BID Johanna-Celia Rx Tablet (Vit B Cmplx 3/Fa/Vit C/Biotin) 1 Each Tablet 1 Each PO DAILY Sensipar (Cinacalcet Hcl) 60 Mg Tablet 60 Mg PO DAILY Amlodipine Besylate 10 Mg Tablet 10 Mg PO DAILY Simvastatin 20 Mg Tablet 20 Mg PO HS Lisinopril 40 Mg Tablet 1 Tab PO BID Novolog (Insulin Aspart) 100 Unit/1 Ml Vial 100 Unit SQ sliding scale Lantus Solostar (Insulin Glargine,Hum.rec.anlog) 100 Unit/1 Ml Insuln.pen 15 Unit SQ HS Vitals/I & O Vital Sign - Last 24 Hours 12/01/18 12/01/18 12/01/18 12/01/18 15:21 17:24 17:29 19:17 Temp 101.1 98.5 98.9 101.1 98.5 98.9 Pulse 100 78 78 81 Resp 18 16 16 B/P (MAP) 123/69 (87) 131/83 131/83 (99) 110/71 (84) Pulse Ox 97 99 O2 Delivery Nasal Cannula Nasal Cannula Nasal Cannula O2 Flow Rate 2.0 2.0 2.0 12/01/18 12/01/18 12/01/18 12/01/18 20:00 22:28 22:29 23:11 Temp 98.9 98.9 Pulse 81 81 89 Resp 16 B/P (MAP) 110/71 110/71 147/87 (107) Pulse Ox 95 O2 Delivery Nasal Cannula Room Air O2 Flow Rate 2.0 2/12/02/18 12/02/18 12/02/18 03:16 07:00 07:35 08:00 Temp 98.8 99.0 98.8 99.0 Pulse 87 81 Resp 16 18 B/P (MAP) 133/84 (100) 142/91 (108) 140/86 Pulse Ox 93 98 O2 Delivery Room Air Room Air Nasal Cannula O2 Flow Rate 2.0 12/02/18 12/02/18 12/02/18 12/02/18 09:00 09:00 09:00 09:40 Temp 99.4 99.4 Pulse 81 81 81 81 Resp 20 B/P (MAP) 140/86 140/86 140/86 140/86 Pulse Ox 96 O2 Delivery Room Air 12/02/18 12/02/18 12/02/18 12/02/18 12:42 12:42 12:59 13:14 Temp 97.6 97.6 Pulse 76 75 76 Resp 22 20 22 B/P (MAP) 125/84 125/70 156/92 Pulse Ox 92 99 97 O2 Delivery Nasal Cannula Nasal Cannula Nasal Cannula O2 Flow Rate 2 2 2 2 12/02/18 12/02/18 12/02/18 12/02/18 13:17 13:29 13:32 13:44 Pulse 77 79 Resp 20 20 20 B/P (MAP) 148/87 151/92 Pulse Ox 98 97 95 O2 Delivery Nasal Cannula Nasal Cannula Nasal Cannula Nasal Cannula O2 Flow Rate 2.0 2 2 2 12/02/18 12/02/18 13:46 14:18 Resp 20 16 O2 Delivery Nasal Cannula Nasal Cannula O2 Flow Rate 2.0 2.0 Intake and Output 12/01/18 12/01/18 12/02/18 14:59 22:59 06:59 Intake Total 395 ml 400 ml 240 ml Balance 395 ml 400 ml 240 ml ACOSTA OSPINA MD Dec 02, 2018 15:19
[2018-12-02 19:07] VITALS: BP 150/91
[2018-12-02] MEDS: LACTOBACILLUS RHAMNOSUS GG 1 CAPSULE. PO SCH (20:46)
[2018-12-02] MEDS: oxyCODONE/APAP 5/325 1 TAB TABLET PO PRN (20:46)
[2018-12-02] MEDS: SIMVASTATIN 20 MG TABLET PO SCH (20:46)
[2018-12-02] MEDS: INSULIN GLARGINE 300 UNITS/3 ML INSULN.PEN. SQ SCH (21:00)
[2018-12-02 23:14] VITALS: BP 155/94
[2018-12-03] MEDS: oxyCODONE/APAP 5/325 1 TAB TABLET PO PRN ×4 (02:44→21:15)
[2018-12-03] MEDS: HYDROmorphone 2 MG/ML VIAL IV PRN ×5 (02:44→21:16)
[2018-12-03 02:47] VITALS: BP 171/100
[2018-12-03 03:58] LABS: BASO # 0.1 x10^3/uL (0.0-0.2); BASO % 1 % (0-3); EOS # 0.4 x10^3/uL (0.0-0.7); EOS % 4 % (0-3); HEMATOCRIT 25.4 % (39.0-53.0); HEMOGLOBIN 8.2 g/dL (13.0-17.5); LYMPH # 0.9 x10^3/uL (1.0-4.8); LYMPH % 8 % (24-48); MEAN CORPUSCULAR HEMOGLOBIN 28 pg (25-35); MEAN CORPUSCULAR HGB CONC 32 g/dL (31-37); MEAN CORPUSCULAR VOLUME 86 fL (79-100); MONO % 9 % (0-9); NEUT % 79 % (31-73); PLATELET COUNT 291 x10^3/uL (140-400); RED BLOOD COUNT 2.95 x10^6/uL (4.30-5.70); RED CELL DISTRIBUTION WIDTH 18.8 % (11.5-14.5); WHITE BLOOD COUNT 11.5 x10^3/uL (4.0-11.0)
[2018-12-03 04:11] LABS: ALBUMIN 2.1 g/dL (3.4-5.0); ALBUMIN/GLOBULIN RATIO 0.5 (1.0-1.7); CALCIUM 8.7 mg/dL (8.5-10.1); CREATININE 10.8 mg/dL (0.7-1.3); GFR 6.5; POTASSIUM 4.9 mmol/L (3.5-5.1); TOTAL BILIRUBIN 0.5 mg/dL (0.2-1.0); TOTAL PROTEIN 6.6 g/dL (6.4-8.2)
[2018-12-03] MEDS: LABETALOL 20 MG/4 ML DISP.SYRIN. IVP PRN (04:25)
[2018-12-03] MEDS: PIPERACILLIN/TAZOBACTAM 2.25 GM in IV NORMAL SALINE 50ML 50 ML IV SCH ×4 (04:25→21:34)
[2018-12-03] MEDS ORDERED: IV NORMAL SALINE 1000ML BAG 1,000 ML IV PRN ×2 (07:00)
[2018-12-03] MEDS: SEVELAMER CARBONATE 800 MG TABLET. PO SCH ×4 (08:00→16:54)
[2018-12-03] MEDS: INSULIN LISPRO 300 UNITS/3 ML INSULN.PEN. SQ SCH ×3 (08:00→16:54)
--- NOTE | 2018-12-03 08:21 | PDOC ---
Infectious Disease Note Subjective Subjective In HD. Some pain RUE better No F/C/S/N/V/SOA/Rash or pain. Cough better ROS ROS o/w neg Vital Sign Vital Signs Vital Signs Date Time Temp Pulse Resp B/P (MAP) Pulse Ox O2 Delivery O2 Flow Rate FiO2 12/03/18 04:25 98 171/100 12/03/18 03:44 20 Nasal Cannula 2.0 12/03/18 02:47 99.1 94 99.1 Physical Exam PHYSICAL EXAM GEN: Coop, NAD HEENT: Pupils are equally round, reactive. Normal conjunctivae. Oral cavity: Pharynx pink and moist. NECK: Supple. He has a small wound with a stitch in place on right-sided neck without surrounding redness or drainage. Scabbing LUNGS: Clear to auscultation. HEART: S1 and S2. ABDOMEN: Mild distension. Dressed EXTREMITIES: No gross edema or cyanosis. SKIN: Warm without generalized rash. NEUROLOGIC: Alert and oriented x 3. LINES: Right-sided tunneled HD catheter (11/26) without signs of any complications. RUE PIV - improved swelling - no warmth/erythema. NT Labs Lab Laboratory Tests Test 12/02/18 10:07 12/02/18 12:51 12/02/18 17:00 12/02/18 20:39 Glucose (Fingerstick) 234 mg/dL (70-99) 229 mg/dL (70-99) 272 mg/dL (70-99) 224 mg/dL (70-99) Test 12/03/18 03:20 White Blood Count 11.5 x10^3/uL (4.0-11.0) Red Blood Count 2.95 x10^6/uL (4.30-5.70) Hemoglobin 8.2 g/dL (13.0-17.5) Hematocrit 25.4 % (39.0-53.0) Mean Corpuscular Volume 86 fL (79-100) Mean Corpuscular Hemoglobin 28 pg (25-35) Mean Corpuscular Hemoglobin Concent 32 g/dL (31-37) Red Cell Distribution Width 18.8 % (11.5-14.5) Platelet Count 291 x10^3/uL (140-400) Neutrophils (%) (Auto) 79 % (31-73) Lymphocytes (%) (Auto) 8 % (24-48) Monocytes (%) (Auto) 9 % (0-9) Eosinophils (%) (Auto) 4 % (0-3) Basophils (%) (Auto) 1 % (0-3) Neutrophils # (Auto) 9.0 x10^3uL (1.8-7.7) Lymphocytes # (Auto) 0.9 x10^3/uL (1.0-4.8) Monocytes # (Auto) 1.0 x10^3/uL (0.0-1.1) Eosinophils # (Auto) 0.4 x10^3/uL (0.0-0.7) Basophils # (Auto) 0.1 x10^3/uL (0.0-0.2) Sodium Level 138 mmol/L (136-145) Potassium Level 4.9 mmol/L (3.5-5.1) Chloride Level 99 mmol/L (98-107) Carbon Dioxide Level 29 mmol/L (21-32) Anion Gap 10 (6-14) Blood Urea Nitrogen 34 mg/dL (8-26) Creatinine 10.8 mg/dL (0.7-1.3) Estimated GFR (Cockcroft-Gault) 6.5 BUN/Creatinine Ratio 3 (6-20) Glucose Level 149 mg/dL (70-99) Calcium Level 8.7 mg/dL (8.5-10.1) Total Bilirubin 0.5 mg/dL (0.2-1.0) Aspartate Amino Transf (AST/SGOT) 43 U/L (15-37) Alanine Aminotransferase (ALT/SGPT) 143 U/L (16-63) Alkaline Phosphatase 157 U/L (46-116) Total Protein 6.6 g/dL (6.4-8.2) Albumin 2.1 g/dL (3.4-5.0) Albumin/Globulin Ratio 0.5 (1.0-1.7) Micro Microbiology 11/29/18 Blood Culture - Preliminary, Resulted NO GROWTH AFTER 1 DAY Objective Assessment Sepsis POA. Procalcitonin 94.62. ? line infection - clinically better GPC bacteremia (3 of 4 bottles) POA 11/29 -staph species Leukocytosis - up but post procedure 12/02 and steroids Transaminitis ? sepsis - improving Fever - better PCN allergy - nausea. Has tolerated Zosyn without problem Constipation Acute diastolic CHF CKD on HD (s/p HDC 11/26; small neck wound w/ stitch in place) Malfunctioning peritoneal catheter -s/p repositioning 12/02 Anemia. s/p iron and PRBCs Diabetes Plan Plan of Care Continue vanc and Zosyn (11/29). Awaiting Staph ID/susceptibilities. Monitor labs - LFTs/temp D/w nursing ECHO HENNESSY MD Dec 03, 2018 08:21
[2018-12-03] MEDS ORDERED: DIALYSIS PATIENT. MC PRN ×2 (08:45)
[2018-12-03] MEDS: FLUTICASONE 50MCG/NASAL SPRAY 16GM BOTTLE. NS SCH (09:00)
[2018-12-03] MEDS: FUROSEMIDE 80 MG TABLET. PO SCH ×2 (09:00→14:34)
--- NOTE | 2018-12-03 09:22 | PDOC ---
Subjective: Subjective: Has abd pain, ate a little yesterday. Objective: Objective: Reviewed w/ RN - seemed distended before going to dialysis, has stooled. Vital Signs: Vital Signs Date Time Temp Pulse Resp B/P (MAP) Pulse Ox O2 Delivery O2 Flow Rate FiO2 12/03/18 09:08 16 Nasal Cannula 2.0 12/03/18 04:25 98 171/100 12/03/18 02:47 99.1 94 99.1 Labs: Laboratory Tests Test 12/02/18 10:07 12/02/18 12:51 12/02/18 17:00 12/02/18 20:39 Glucose (Fingerstick) 234 mg/dL 229 mg/dL 272 mg/dL 224 mg/dL Test 12/03/18 03:20 White Blood Count 11.5 x10^3/uL Red Blood Count 2.95 x10^6/uL Hemoglobin 8.2 g/dL Hematocrit 25.4 % Mean Corpuscular Volume 86 fL Mean Corpuscular Hemoglobin 28 pg Mean Corpuscular Hemoglobin Concent 32 g/dL Red Cell Distribution Width 18.8 % Platelet Count 291 x10^3/uL Neutrophils (%) (Auto) 79 % Lymphocytes (%) (Auto) 8 % Monocytes (%) (Auto) 9 % Eosinophils (%) (Auto) 4 % Basophils (%) (Auto) 1 % Neutrophils # (Auto) 9.0 x10^3uL Lymphocytes # (Auto) 0.9 x10^3/uL Monocytes # (Auto) 1.0 x10^3/uL Eosinophils # (Auto) 0.4 x10^3/uL Basophils # (Auto) 0.1 x10^3/uL Sodium Level 138 mmol/L Potassium Level 4.9 mmol/L Chloride Level 99 mmol/L Carbon Dioxide Level 29 mmol/L Anion Gap 10 Blood Urea Nitrogen 34 mg/dL Creatinine 10.8 mg/dL Estimated GFR (Cockcroft-Gault) 6.5 BUN/Creatinine Ratio 3 Glucose Level 149 mg/dL Calcium Level 8.7 mg/dL Total Bilirubin 0.5 mg/dL Aspartate Amino Transf (AST/SGOT) 43 U/L Alanine Aminotransferase (ALT/SGPT) 143 U/L Alkaline Phosphatase 157 U/L Total Protein 6.6 g/dL Albumin 2.1 g/dL Albumin/Globulin Ratio 0.5 BLOOD CULTURE LC Preliminary Preliminary report BLD CULT RESULT 1 Preliminary Comment Staphylococcus species Imaging: KUB 12/02 An NG tube extends into the proximal aspect of the stomach. The abdominal gas pattern is unremarkable. There is a surgical drain overlying the pelvis. There is an additional rounded radiopacity overlying the left side of the pelvis which may be an additional drain or peritoneal dialysis catheter. A linear radiopacity overlying the lower pelvis near the midline may represent a bladder catheter. Clinical correlation is suggested. There is no evidence of a retained surgical needle, instrument or surgical sponge on this exam. PE: GEN: dialyzing LUNGS: NC HEART: RRR ABD: distended, tender, a gurgle or two NEURO/PSYCH: A & O 3 A/P: S/p open repositioning PD cath and ANDREWS Staph bacteremia Chronic anemia - stable Elevated LFTs - better H/o constipation -- Continue per surgery. MORRIS LAMAR Dec 03, 2018 09:22
[2018-12-03 11:15] VITALS: BP 160/88
--- NOTE | 2018-12-03 11:23 | PDOC ---
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 HEART: S1 and S2. ABDOMEN: soft, nontender, PD cath + EXTREMITIES: No edema SKIN: No Rash NEUROLOGIC: Alert and oriented x 3. LINES: Right-sided tunneled HD catheter (11/26) DIAGNOSIS/ASSESSMENT Assessment & Plan ESRD - Has been on PD , currently MWF HD Non Functioning PD cath, initiated on HD last week at Seen on HD, tolerating well, continue as Ordered, Octavio RN Non Functioning PD catheter -s/p repositioning 12/02 extensive adhesions upper abdomen, tissue ingrowth PD catheter Fever- ?Line sepsis ID on board Anemia - avoid PRBC if possible since he is a Tx candidate On Aranesp ,significant drop in Hgb - Recd PRBC and Fe as recommended by Hem/ Onc Acute Diastolic CHF- Stable, On RA DM II- BS high Primary managing HTN- continue antihypertensives Hyperkalemia- resolved Transaminitis COMMENT/RELEVANT DATA Meds Current Medications Medications (Trade) Dose Ordered Sig/Afua Start Time Stop Time Status Last Admin Dose Admin Acetaminophen (Tylenol) 650 mg PRN Q4HRS PRN 11/30/18 20:15 12/01/18 15:41 650 MG Albumin Human 200 ml @ 200 mls/hr 1X PRN PRN 11/30/18 07:45 11/30/18 13:44 DC Albuterol Sulfate (Ventolin Neb Soln) 2.5 mg PRN Q6HRS PRN 11/30/18 13:45 Amlodipine Besylate (Norvasc) 10 mg DAILY 11/30/18 09:00 12/01/18 13:19 10 MG Aspirin (Anshul Aspirin) 325 mg 1X ONCE 11/29/18 19:45 11/29/18 19:46 DC 11/29/18 20:19 325 MG Bupivacaine HCl/ Epinephrine Bitart (Sensorcain-Mpf Epi 0.5%-1:[id number]) 30 ml STK-MED ONCE 12/02/18 07:36 12/02/18 07:37 DC 12/02/18 11:05 10 ML Calcitriol (Rocaltrol) 0.25 mcg DAILY 11/30/18 09:00 12/01/18 13:12 0.25 MCG Calcium Carbonate/ Glycine (Tums) 500 mg PRN BID PRN 11/30/18 13:30 Carvedilol (Coreg) 12.5 mg BIDWMEALS 11/30/18 08:00 12/02/18 16:51 12.5 MG Cinacalcet (Sensipar) 60 mg DAILY 11/30/18 09:00 12/01/18 13:12 60 MG Clonidine HCl (Catapres) 0.2 mg BID 11/29/18 21:00 12/02/18 20:47 0.2 MG Darbepoetin David (Aranesp) 60 mcg WEEKLYHS 12/07/18 21:00 Dexamethasone Sodium Phosphate (Decadron) 20 mg STK-MED ONCE 12/02/18 09:06 12/02/18 09:07 DC Dextrose (Dextrose 50%-Water Syringe) 12.5 gm PRN Q15MIN PRN 11/30/18 10:30 UNV Diphenhydramine HCl (Benadryl) 25 mg 1X PRN PRN 11/30/18 07:45 12/01/18 07:44 DC Docusate Sodium (Colace) 100 mg BID 11/29/18 21:00 12/02/18 20:47 100 MG Fentanyl Citrate (Fentanyl 2ml Vial) 50 mcg PRN Q5MIN PRN 12/02/18 13:00 12/02/18 20:24 DC 12/02/18 13:46 50 MCG Fluticasone Propionate (Flonase) 2 spray DAILY 11/30/18 14:00 12/01/18 13:31 2 SPRAY Furosemide (Lasix) 80 mg BID92 11/29/18 20:00 12/01/18 13:13 80 MG Glycopyrrolate (Robinul) 1 mg STK-MED ONCE 12/02/18 12:25 12/02/18 12:26 DC Heparin Sodium (Porcine) 5000 unit/Sodium Chloride 505 ml @ 505 mls/hr 1X ONCE 12/02/18 07:00 12/02/18 07:59 DC 12/02/18 11:05 Hydromorphone HCl (Dilaudid) 1 mg PRN Q3HRS PRN 12/02/18 20:30 12/03/18 09:08 1 MG Info (PHARMACY MONITORING -- do not chart) 1 each PRN DAILY PRN 12/03/18 08:45 Insulin Glargine (Lantus) 32 units HS 11/29/18 21:00 12/02/18 21:00 32 UNITS Insulin Human Lispro (HumaLOG) 10 units 1X ONCE 12/02/18 09:45 12/02/18 09:46 DC Iron Sucrose 200 mg/Sodium Chloride 110 ml @ 55 mls/hr 1X ONCE 11/29/18 19:15 11/29/18 21:14 DC 11/29/18 22:20 55 MLS/HR Labetalol HCl (Normodyne Iv Push) 10 mg PRN Q2HR PRN 11/30/18 04:00 12/03/18 04:25 10 MG Lactobacillus Rhamnosus (Culturelle) 1 cap BID 12/02/18 21:00 12/02/18 20:46 1 CAP Levofloxacin/ Dextrose (LEVAQUIN 500mg PREMIX) 500 mg STK-MED ONCE 12/02/18 11:00 12/03/18 08:41 DC Lidocaine HCl (Lidocaine Pf 2% Vial) 5 ml STK-MED ONCE 12/02/18 09:05 12/02/18 09:06 DC Lidocaine HCl (Xylocaine-Mpf 1% 2ml Vial) 2 ml 1X PRN PRN 12/02/18 13:00 12/03/18 12:59 Lisinopril (Prinivil) 40 mg BID 11/29/18 21:00 12/02/18 20:47 40 MG Metoclopramide HCl (Reglan Vial) 10 mg STK-MED ONCE 12/02/18 10:59 12/02/18 11:00 DC Morphine Sulfate (Morphine Sulfate) 1 mg PRN Q10MIN PRN 12/02/18 13:00 12/02/18 20:24 DC Neostigmine Methylsulfate (Bloxiverz) 10 mg STK-MED ONCE 12/02/18 12:25 12/02/18 12:26 DC Non-Formulary Medication (Epoetin David (Procrit)) 10,000 unit WEEKLY 12/07/18 09:00 12/07/18 09:00 DC Ondansetron HCl (Zofran) 4 mg PRN Q6HRS PRN 12/02/18 13:00 12/03/18 12:59 Oxycodone/ Acetaminophen (Percocet 5/325) 1 tab PRN Q4HRS PRN 12/02/18 13:15 12/03/18 09:07 1 TAB Pantoprazole Sodium (Protonix) 40 mg DAILYAC 11/30/18 14:00 12/01/18 13:30 40 MG Piperacillin Sod/ Tazobactam Sod (Zosyn Per Pharmacy) 1 each PRN DAILY PRN 11/30/18 12:15 Piperacillin Sod/ Tazobactam Sod 2.25 gm/Sodium Chloride 50 ml @ 100 mls/hr Q8HRS 11/30/18 13:00 12/03/18 04:25 100 MLS/HR Piperacillin Sod/ Tazobactam Sod 3.375 gm/Sodium Chloride 50 ml @ 100 mls/hr 1X ONCE 11/29/18 18:15 11/29/18 18:44 DC 11/29/18 18:45 100 MLS/HR Polyethylene Glycol (miraLAX PACKET) 17 gm PRN DAILY PRN 11/30/18 17:00 Prochlorperazine Edisylate (Compazine) 5 mg PACU PRN PRN 12/02/18 13:00 12/03/18 12:59 Propofol 20 ml @ As Directed STK-MED ONCE 12/02/18 09:06 12/02/18 09:07 DC Ringer's Solution 1,000 ml @ 30 mls/hr Q24H 12/02/18 12:51 12/03/18 00:50 DC Rocuronium Hersey (Zemuron) 50 mg STK-MED ONCE 12/02/18 09:05 12/02/18 09:06 DC Sennosides (Senna) 8.6 mg BID 11/29/18 21:00 12/02/18 20:46 8.6 MG Sevelamer Carbonate (Renvela) 4,000 mg TIDWMEALS 11/30/18 08:00 12/01/18 23:09 4,000 MG Sevoflurane (Ultane) 90 ml STK-MED ONCE 12/02/18 12:27 12/02/18 12:28 DC Simvastatin (Zocor) 20 mg HS 11/29/18 21:00 12/02/18 20:46 20 MG Sodium Chloride 1,000 ml @ 400 mls/hr Q2H30M PRN 12/03/18 07:00 12/03/18 18:59 Sodium Cl/Sod Bicarb/Potass Cl/ PEG (Golytely) 4,000 ml 1X ONCE 11/30/18 18:00 11/30/18 18:01 DC 11/30/18 17:33 4,000 ML Vancomycin HCl (Vanco Per Pharmacy) 1 each PRN DAILY PRN 11/30/18 12:15 12/02/18 13:47 1 EACH Vancomycin HCl (Vancomycin Random Level) 1 each 1X ONCE 11/30/18 16:00 11/30/18 16:01 DC 11/30/18 16:00 1 EACH Vancomycin HCl 500 mg/Sodium Chloride 100 ml @ 100 mls/hr QMWF 12/01/18 16:00 12/01/18 17:22 100 MLS/HR Vancomycin HCl 2 gm/Sodium Chloride 500 ml @ 250 mls/hr 1X ONCE 11/29/18 19:00 11/29/18 20:59 DC 11/29/18 18:46 250 MLS/HR Vitamin B Complex/ Vitamin C (Johanna-Celia) 1 tab DAILY 11/30/18 09:00 12/01/18 13:13 1 TAB Vitamin D (Vitamin D3) 5,000 unit DAILY 11/30/18 09:00 12/01/18 13:13 5,000 UNIT Lab Laboratory Tests Test 12/02/18 12:51 12/02/18 17:00 12/02/18 20:39 12/03/18 03:20 Glucose (Fingerstick) 229 mg/dL (70-99) 272 mg/dL (70-99) 224 mg/dL (70-99) White Blood Count 11.5 x10^3/uL (4.0-11.0) Red Blood Count 2.95 x10^6/uL (4.30-5.70) Hemoglobin 8.2 g/dL (13.0-17.5) Hematocrit 25.4 % (39.0-53.0) Mean Corpuscular Volume 86 fL (79-100) Mean Corpuscular Hemoglobin 28 pg (25-35) Mean Corpuscular Hemoglobin Concent 32 g/dL (31-37) Red Cell Distribution Width 18.8 % (11.5-14.5) Platelet Count 291 x10^3/uL (140-400) Neutrophils (%) (Auto) 79 % (31-73) Lymphocytes (%) (Auto) 8 % (24-48) Monocytes (%) (Auto) 9 % (0-9) Eosinophils (%) (Auto) 4 % (0-3) Basophils (%) (Auto) 1 % (0-3) Neutrophils # (Auto) 9.0 x10^3uL (1.8-7.7) Lymphocytes # (Auto) 0.9 x10^3/uL (1.0-4.8) Monocytes # (Auto) 1.0 x10^3/uL (0.0-1.1) Eosinophils # (Auto) 0.4 x10^3/uL (0.0-0.7) Basophils # (Auto) 0.1 x10^3/uL (0.0-0.2) Sodium Level 138 mmol/L (136-145) Potassium Level 4.9 mmol/L (3.5-5.1) Chloride Level 99 mmol/L (98-107) Carbon Dioxide Level 29 mmol/L (21-32) Anion Gap 10 (6-14) Blood Urea Nitrogen 34 mg/dL (8-26) Creatinine 10.8 mg/dL (0.7-1.3) Estimated GFR (Cockcroft-Gault) 6.5 BUN/Creatinine Ratio 3 (6-20) Glucose Level 149 mg/dL (70-99) Calcium Level 8.7 mg/dL (8.5-10.1) Total Bilirubin 0.5 mg/dL (0.2-1.0) Aspartate Amino Transf (AST/SGOT) 43 U/L (15-37) Alanine Aminotransferase (ALT/SGPT) 143 U/L (16-63) Alkaline Phosphatase 157 U/L (46-116) Total Protein 6.6 g/dL (6.4-8.2) Albumin 2.1 g/dL (3.4-5.0) Albumin/Globulin Ratio 0.5 (1.0-1.7) Results All relevant outside records, renal labs, imaging studies, telemetry/EKG's were reviewed. AYANNA PEREZ MD Dec 03, 2018 11:23
[2018-12-03] MEDS: amLODIPine BESYLATE 10 MG TABLET PO SCH (11:42)
[2018-12-03] MEDS: CARVEDILOL 12.5 MG TABLET. PO SCH ×2 (11:43→16:54)
[2018-12-03] MEDS: cloNIDine HCL 0.2 MG TABLET PO SCH ×2 (11:43→21:15)
[2018-12-03] MEDS: PANTOPRAZOLE 40 MG TABLET.DR. PO SCH (11:43)
[2018-12-03] MEDS: FOLIC/VIT B COMP W-C (RENAL) TABLET. PO SCH (11:43)
[2018-12-03] MEDS: CHOLECALCIFEROL (VITAMIN D3) 5,000 UNIT CAPSULE PO SCH (11:43)
[2018-12-03] MEDS: POLYETHYLENE GLYCOL 3350 17 GM PACKET. PO SCH (11:44)
[2018-12-03] MEDS: CALCITRIOL 0.25 MCG CAPSULE. PO SCH (11:46)
[2018-12-03] MEDS: SENNOSIDES 8.6 MG TABLET PO SCH ×2 (11:46→21:15)
[2018-12-03] MEDS: LACTOBACILLUS RHAMNOSUS GG 1 CAPSULE. PO SCH ×2 (11:46→21:15)
[2018-12-03] MEDS: LISINOPRIL 20 MG TABLET PO SCH ×2 (11:46→21:14)
[2018-12-03] MEDS: CINACALCET HCL 30 MG TABLET PO SCH (11:46)
[2018-12-03] MEDS: DOCUSATE SODIUM 100 MG CAPSULE. PO SCH ×2 (11:47→21:15)
--- NOTE | 2018-12-03 11:54 | PDOC ---
SURGICAL PROGRESS NOTE Subjective incisional pain asking for "fentanyl and dilaudid at bedside Vital Signs Vital Signs Date Time Temp Pulse Resp B/P (MAP) Pulse Ox O2 Delivery O2 Flow Rate FiO2 12/03/18 11:46 96 160/88 12/03/18 11:25 16 Nasal Cannula 2.0 12/03/18 11:15 99.0 97 99.0 I&O Intake and Output 12/03/18 06:59 Intake Total 420 ml Output Total 25 ml Balance 395 ml Intake Oral 120 ml IV Total 300 ml Output Estimated Blood Loss 25 ml PATIENT HAS A MARSHALL: No General: Alert, Oriented X3, No acute distress Lungs: Normal air movement Heart: Regular rate Labs Laboratory Tests Test 12/01/18 12:36 12/01/18 16:40 12/01/18 21:18 12/02/18 04:40 Glucose (Fingerstick) 116 mg/dL (70-99) 238 mg/dL (70-99) 317 mg/dL (70-99) White Blood Count 9.7 x10^3/uL (4.0-11.0) Red Blood Count 2.59 x10^6/uL (4.30-5.70) Hemoglobin 7.3 g/dL (13.0-17.5) Hematocrit 22.1 % (39.0-53.0) Mean Corpuscular Volume 85 fL (79-100) Mean Corpuscular Hemoglobin 28 pg (25-35) Mean Corpuscular Hemoglobin Concent 33 g/dL (31-37) Red Cell Distribution Width 18.9 % (11.5-14.5) Platelet Count 236 x10^3/uL (140-400) Neutrophils (%) (Auto) 78 % (31-73) Lymphocytes (%) (Auto) 7 % (24-48) Monocytes (%) (Auto) 10 % (0-9) Eosinophils (%) (Auto) 5 % (0-3) Basophils (%) (Auto) 0 % (0-3) Neutrophils # (Auto) 7.6 x10^3uL (1.8-7.7) Lymphocytes # (Auto) 0.7 x10^3/uL (1.0-4.8) Monocytes # (Auto) 0.9 x10^3/uL (0.0-1.1) Eosinophils # (Auto) 0.4 x10^3/uL (0.0-0.7) Basophils # (Auto) 0.0 x10^3/uL (0.0-0.2) Reticulocyte Count (auto) 3.3 % (0.5-2.5) Sodium Level 134 mmol/L (136-145) Potassium Level 4.7 mmol/L (3.5-5.1) Chloride Level 95 mmol/L (98-107) Carbon Dioxide Level 30 mmol/L (21-32) Anion Gap 9 (6-14) Blood Urea Nitrogen 28 mg/dL (8-26) Creatinine 8.3 mg/dL (0.7-1.3) Estimated GFR (Cockcroft-Gault) 8.8 BUN/Creatinine Ratio 3 (6-20) Glucose Level 450 mg/dL (70-99) Calcium Level 8.6 mg/dL (8.5-10.1) Total Bilirubin 0.5 mg/dL (0.2-1.0) Aspartate Amino Transf (AST/SGOT) 111 U/L (15-37) Alanine Aminotransferase (ALT/SGPT) 190 U/L (16-63) Alkaline Phosphatase 168 U/L (46-116) Total Protein 6.5 g/dL (6.4-8.2) Albumin 2.2 g/dL (3.4-5.0) Albumin/Globulin Ratio 0.5 (1.0-1.7) Vitamin B12 Level > 2000 pg/mL (247-911) Total Testosterone 156 ng/dL (264-916) Test 12/02/18 08:04 12/02/18 10:07 12/02/18 12:51 12/02/18 17:00 Glucose (Fingerstick) 325 mg/dL (70-99) 234 mg/dL (70-99) 229 mg/dL (70-99) 272 mg/dL (70-99) Test 12/02/18 20:39 12/03/18 03:20 Glucose (Fingerstick) 224 mg/dL (70-99) White Blood Count 11.5 x10^3/uL (4.0-11.0) Red Blood Count 2.95 x10^6/uL (4.30-5.70) Hemoglobin 8.2 g/dL (13.0-17.5) Hematocrit 25.4 % (39.0-53.0) Mean Corpuscular Volume 86 fL (79-100) Mean Corpuscular Hemoglobin 28 pg (25-35) Mean Corpuscular Hemoglobin Concent 32 g/dL (31-37) Red Cell Distribution Width 18.8 % (11.5-14.5) Platelet Count 291 x10^3/uL (140-400) Neutrophils (%) (Auto) 79 % (31-73) Lymphocytes (%) (Auto) 8 % (24-48) Monocytes (%) (Auto) 9 % (0-9) Eosinophils (%) (Auto) 4 % (0-3) Basophils (%) (Auto) 1 % (0-3) Neutrophils # (Auto) 9.0 x10^3uL (1.8-7.7) Lymphocytes # (Auto) 0.9 x10^3/uL (1.0-4.8) Monocytes # (Auto) 1.0 x10^3/uL (0.0-1.1) Eosinophils # (Auto) 0.4 x10^3/uL (0.0-0.7) Basophils # (Auto) 0.1 x10^3/uL (0.0-0.2) Sodium Level 138 mmol/L (136-145) Potassium Level 4.9 mmol/L (3.5-5.1) Chloride Level 99 mmol/L (98-107) Carbon Dioxide Level 29 mmol/L (21-32) Anion Gap 10 (6-14) Blood Urea Nitrogen 34 mg/dL (8-26) Creatinine 10.8 mg/dL (0.7-1.3) Estimated GFR (Cockcroft-Gault) 6.5 BUN/Creatinine Ratio 3 (6-20) Glucose Level 149 mg/dL (70-99) Calcium Level 8.7 mg/dL (8.5-10.1) Total Bilirubin 0.5 mg/dL (0.2-1.0) Aspartate Amino Transf (AST/SGOT) 43 U/L (15-37) Alanine Aminotransferase (ALT/SGPT) 143 U/L (16-63) Alkaline Phosphatase 157 U/L (46-116) Total Protein 6.6 g/dL (6.4-8.2) Albumin 2.1 g/dL (3.4-5.0) Albumin/Globulin Ratio 0.5 (1.0-1.7) Laboratory Tests Test 12/02/18 12:51 12/02/18 17:00 12/02/18 20:39 12/03/18 03:20 Glucose (Fingerstick) 229 mg/dL (70-99) 272 mg/dL (70-99) 224 mg/dL (70-99) White Blood Count 11.5 x10^3/uL (4.0-11.0) Red Blood Count 2.95 x10^6/uL (4.30-5.70) Hemoglobin 8.2 g/dL (13.0-17.5) Hematocrit 25.4 % (39.0-53.0) Mean Corpuscular Volume 86 fL (79-100) Mean Corpuscular Hemoglobin 28 pg (25-35) Mean Corpuscular Hemoglobin Concent 32 g/dL (31-37) Red Cell Distribution Width 18.8 % (11.5-14.5) Platelet Count 291 x10^3/uL (140-400) Neutrophils (%) (Auto) 79 % (31-73) Lymphocytes (%) (Auto) 8 % (24-48) Monocytes (%) (Auto) 9 % (0-9) Eosinophils (%) (Auto) 4 % (0-3) Basophils (%) (Auto) 1 % (0-3) Neutrophils # (Auto) 9.0 x10^3uL (1.8-7.7) Lymphocytes # (Auto) 0.9 x10^3/uL (1.0-4.8) Monocytes # (Auto) 1.0 x10^3/uL (0.0-1.1) Eosinophils # (Auto) 0.4 x10^3/uL (0.0-0.7) Basophils # (Auto) 0.1 x10^3/uL (0.0-0.2) Sodium Level 138 mmol/L (136-145) Potassium Level 4.9 mmol/L (3.5-5.1) Chloride Level 99 mmol/L (98-107) Carbon Dioxide Level 29 mmol/L (21-32) Anion Gap 10 (6-14) Blood Urea Nitrogen 34 mg/dL (8-26) Creatinine 10.8 mg/dL (0.7-1.3) Estimated GFR (Cockcroft-Gault) 6.5 BUN/Creatinine Ratio 3 (6-20) Glucose Level 149 mg/dL (70-99) Calcium Level 8.7 mg/dL (8.5-10.1) Total Bilirubin 0.5 mg/dL (0.2-1.0) Aspartate Amino Transf (AST/SGOT) 43 U/L (15-37) Alanine Aminotransferase (ALT/SGPT) 143 U/L (16-63) Alkaline Phosphatase 157 U/L (46-116) Total Protein 6.6 g/dL (6.4-8.2) Albumin 2.1 g/dL (3.4-5.0) Albumin/Globulin Ratio 0.5 (1.0-1.7) Problem List Problems Medical Problems: (1) Abnormal EKG Status: Acute (2) Elevated troponin Status: Acute (3) End stage renal disease Status: Acute (4) Fever Status: Acute Assessment/Plan POD 1 open repositioning PD cath continue clears, ambulate PONCHO STRANGE MD Dec 03, 2018 11:54
[2018-12-03] MEDS: ONDANSETRON PF 4 MG/2 ML VIAL. IV PRN ×2 (14:30→21:28)
--- NOTE | 2018-12-03 14:31 | PDOC ---
PROGRESS NOTES Chief Complaint Chief Complaint Sepsis POA. Procalcitonin 94.62. ? line infection - clinically better GPC bacteremia (3 of 4 bottles) POA 11/29 awaiting for sensitivities. Leukocytosis - better Transaminitis ? sepsis - increasing Fever - curve improving PCN allergy - nausea. Has tolerated Zosyn without problem Constipation Acute diastolic CHF CKD on HD (s/p HDC 11/26; small neck wound w/ stitch in place) Malfunctioning peritoneal catheter Anemia. s/p iron and PRBCs Diabetes History of Present Illness History of Present Illness Patient status post repositioning of peritoneal dialysis catheter, he tolerated procedure well. all concerns addressed to the best of my abilities. will follow results for his blood cultures. Vitals Vitals Vital Signs Date Time Temp Pulse Resp B/P (MAP) Pulse Ox O2 Delivery O2 Flow Rate FiO2 12/03/18 12:31 16 Nasal Cannula 2.0 12/03/18 11:46 96 160/88 12/03/18 11:15 99.0 97 99.0 Physical Exam Physical Exam GEN: Coop, NAD HEENT: Pupils are equally round, reactive. Normal conjunctivae. Oral cavity: Pharynx pink and moist. NECK: Supple. He has a small wound with a stitch in place on right-sided neck without surrounding redness or drainage. Scabbing LUNGS: Clear to auscultation. HEART: S1 and S2. ABDOMEN: Mild distension. Dressed EXTREMITIES: No gross edema or cyanosis. SKIN: Warm without generalized rash. NEUROLOGIC: Alert and oriented x 3. LINES: Right-sided tunneled HD catheter (11/26) without signs of any complications. RUE PIV - improved swelling - no warmth/erythema. NT General: Alert, Oriented X3, No acute distress Heart: Regular rate Lungs: Clear Abdomen: Normal bowel sounds, Soft, No tenderness Extremities: No clubbing, No cyanosis Skin: No breakdown Labs LABS Laboratory Tests Test 12/02/18 17:00 12/02/18 20:39 12/03/18 03:20 12/03/18 11:22 Glucose (Fingerstick) 272 mg/dL (70-99) 224 mg/dL (70-99) 70 mg/dL (70-99) White Blood Count 11.5 x10^3/uL (4.0-11.0) Red Blood Count 2.95 x10^6/uL (4.30-5.70) Hemoglobin 8.2 g/dL (13.0-17.5) Hematocrit 25.4 % (39.0-53.0) Mean Corpuscular Volume 86 fL (79-100) Mean Corpuscular Hemoglobin 28 pg (25-35) Mean Corpuscular Hemoglobin Concent 32 g/dL (31-37) Red Cell Distribution Width 18.8 % (11.5-14.5) Platelet Count 291 x10^3/uL (140-400) Neutrophils (%) (Auto) 79 % (31-73) Lymphocytes (%) (Auto) 8 % (24-48) Monocytes (%) (Auto) 9 % (0-9) Eosinophils (%) (Auto) 4 % (0-3) Basophils (%) (Auto) 1 % (0-3) Neutrophils # (Auto) 9.0 x10^3uL (1.8-7.7) Lymphocytes # (Auto) 0.9 x10^3/uL (1.0-4.8) Monocytes # (Auto) 1.0 x10^3/uL (0.0-1.1) Eosinophils # (Auto) 0.4 x10^3/uL (0.0-0.7) Basophils # (Auto) 0.1 x10^3/uL (0.0-0.2) Sodium Level 138 mmol/L (136-145) Potassium Level 4.9 mmol/L (3.5-5.1) Chloride Level 99 mmol/L (98-107) Carbon Dioxide Level 29 mmol/L (21-32) Anion Gap 10 (6-14) Blood Urea Nitrogen 34 mg/dL (8-26) Creatinine 10.8 mg/dL (0.7-1.3) Estimated GFR (Cockcroft-Gault) 6.5 BUN/Creatinine Ratio 3 (6-20) Glucose Level 149 mg/dL (70-99) Calcium Level 8.7 mg/dL (8.5-10.1) Total Bilirubin 0.5 mg/dL (0.2-1.0) Aspartate Amino Transf (AST/SGOT) 43 U/L (15-37) Alanine Aminotransferase (ALT/SGPT) 143 U/L (16-63) Alkaline Phosphatase 157 U/L (46-116) Total Protein 6.6 g/dL (6.4-8.2) Albumin 2.1 g/dL (3.4-5.0) Albumin/Globulin Ratio 0.5 (1.0-1.7) Assessment and Plan Assessmemt and Plan Problems Medical Problems: (1) Abnormal EKG Status: Acute (2) Elevated troponin Status: Acute (3) End stage renal disease Status: Acute (4) Fever Status: Acute Comment Review of Relevant I have reviewed the following items javy (where applicable) has been applied. Labs Laboratory Tests Test 12/01/18 16:40 12/01/18 21:18 12/02/18 04:40 12/02/18 08:04 Glucose (Fingerstick) 238 mg/dL (70-99) 317 mg/dL (70-99) 325 mg/dL (70-99) White Blood Count 9.7 x10^3/uL (4.0-11.0) Red Blood Count 2.59 x10^6/uL (4.30-5.70) Hemoglobin 7.3 g/dL (13.0-17.5) Hematocrit 22.1 % (39.0-53.0) Mean Corpuscular Volume 85 fL (79-100) Mean Corpuscular Hemoglobin 28 pg (25-35) Mean Corpuscular Hemoglobin Concent 33 g/dL (31-37) Red Cell Distribution Width 18.9 % (11.5-14.5) Platelet Count 236 x10^3/uL (140-400) Neutrophils (%) (Auto) 78 % (31-73) Lymphocytes (%) (Auto) 7 % (24-48) Monocytes (%) (Auto) 10 % (0-9) Eosinophils (%) (Auto) 5 % (0-3) Basophils (%) (Auto) 0 % (0-3) Neutrophils # (Auto) 7.6 x10^3uL (1.8-7.7) Lymphocytes # (Auto) 0.7 x10^3/uL (1.0-4.8) Monocytes # (Auto) 0.9 x10^3/uL (0.0-1.1) Eosinophils # (Auto) 0.4 x10^3/uL (0.0-0.7) Basophils # (Auto) 0.0 x10^3/uL (0.0-0.2) Reticulocyte Count (auto) 3.3 % (0.5-2.5) Sodium Level 134 mmol/L (136-145) Potassium Level 4.7 mmol/L (3.5-5.1) Chloride Level 95 mmol/L (98-107) Carbon Dioxide Level 30 mmol/L (21-32) Anion Gap 9 (6-14) Blood Urea Nitrogen 28 mg/dL (8-26) Creatinine 8.3 mg/dL (0.7-1.3) Estimated GFR (Cockcroft-Gault) 8.8 BUN/Creatinine Ratio 3 (6-20) Glucose Level 450 mg/dL (70-99) Calcium Level 8.6 mg/dL (8.5-10.1) Total Bilirubin 0.5 mg/dL (0.2-1.0) Aspartate Amino Transf (AST/SGOT) 111 U/L (15-37) Alanine Aminotransferase (ALT/SGPT) 190 U/L (16-63) Alkaline Phosphatase 168 U/L (46-116) Total Protein 6.5 g/dL (6.4-8.2) Albumin 2.2 g/dL (3.4-5.0) Albumin/Globulin Ratio 0.5 (1.0-1.7) Vitamin B12 Level > 2000 pg/mL (247-911) Total Testosterone 156 ng/dL (264-916) Test 12/02/18 10:07 12/02/18 12:51 12/02/18 17:00 12/02/18 20:39 Glucose (Fingerstick) 234 mg/dL (70-99) 229 mg/dL (70-99) 272 mg/dL (70-99) 224 mg/dL (70-99) Test 12/03/18 03:20 12/03/18 11:22 White Blood Count 11.5 x10^3/uL (4.0-11.0) Red Blood Count 2.95 x10^6/uL (4.30-5.70) Hemoglobin 8.2 g/dL (13.0-17.5) Hematocrit 25.4 % (39.0-53.0) Mean Corpuscular Volume 86 fL (79-100) Mean Corpuscular Hemoglobin 28 pg (25-35) Mean Corpuscular Hemoglobin Concent 32 g/dL (31-37) Red Cell Distribution Width 18.8 % (11.5-14.5) Platelet Count 291 x10^3/uL (140-400) Neutrophils (%) (Auto) 79 % (31-73) Lymphocytes (%) (Auto) 8 % (24-48) Monocytes (%) (Auto) 9 % (0-9) Eosinophils (%) (Auto) 4 % (0-3) Basophils (%) (Auto) 1 % (0-3) Neutrophils # (Auto) 9.0 x10^3uL (1.8-7.7) Lymphocytes # (Auto) 0.9 x10^3/uL (1.0-4.8) Monocytes # (Auto) 1.0 x10^3/uL (0.0-1.1) Eosinophils # (Auto) 0.4 x10^3/uL (0.0-0.7) Basophils # (Auto) 0.1 x10^3/uL (0.0-0.2) Sodium Level 138 mmol/L (136-145) Potassium Level 4.9 mmol/L (3.5-5.1) Chloride Level 99 mmol/L (98-107) Carbon Dioxide Level 29 mmol/L (21-32) Anion Gap 10 (6-14) Blood Urea Nitrogen 34 mg/dL (8-26) Creatinine 10.8 mg/dL (0.7-1.3) Estimated GFR (Cockcroft-Gault) 6.5 BUN/Creatinine Ratio 3 (6-20) Glucose Level 149 mg/dL (70-99) Calcium Level 8.7 mg/dL (8.5-10.1) Total Bilirubin 0.5 mg/dL (0.2-1.0) Aspartate Amino Transf (AST/SGOT) 43 U/L (15-37) Alanine Aminotransferase (ALT/SGPT) 143 U/L (16-63) Alkaline Phosphatase 157 U/L (46-116) Total Protein 6.6 g/dL (6.4-8.2) Albumin 2.1 g/dL (3.4-5.0) Albumin/Globulin Ratio 0.5 (1.0-1.7) Glucose (Fingerstick) 70 mg/dL (70-99) Laboratory Tests Test 12/02/18 17:00 12/02/18 20:39 12/03/18 03:20 12/03/18 11:22 Glucose (Fingerstick) 272 mg/dL (70-99) 224 mg/dL (70-99) 70 mg/dL (70-99) White Blood Count 11.5 x10^3/uL (4.0-11.0) Red Blood Count 2.95 x10^6/uL (4.30-5.70) Hemoglobin 8.2 g/dL (13.0-17.5) Hematocrit 25.4 % (39.0-53.0) Mean Corpuscular Volume 86 fL (79-100) Mean Corpuscular Hemoglobin 28 pg (25-35) Mean Corpuscular Hemoglobin Concent 32 g/dL (31-37) Red Cell Distribution Width 18.8 % (11.5-14.5) Platelet Count 291 x10^3/uL (140-400) Neutrophils (%) (Auto) 79 % (31-73) Lymphocytes (%) (Auto) 8 % (24-48) Monocytes (%) (Auto) 9 % (0-9) Eosinophils (%) (Auto) 4 % (0-3) Basophils (%) (Auto) 1 % (0-3) Neutrophils # (Auto) 9.0 x10^3uL (1.8-7.7) Lymphocytes # (Auto) 0.9 x10^3/uL (1.0-4.8) Monocytes # (Auto) 1.0 x10^3/uL (0.0-1.1) Eosinophils # (Auto) 0.4 x10^3/uL (0.0-0.7) Basophils # (Auto) 0.1 x10^3/uL (0.0-0.2) Sodium Level 138 mmol/L (136-145) Potassium Level 4.9 mmol/L (3.5-5.1) Chloride Level 99 mmol/L (98-107) Carbon Dioxide Level 29 mmol/L (21-32) Anion Gap 10 (6-14) Blood Urea Nitrogen 34 mg/dL (8-26) Creatinine 10.8 mg/dL (0.7-1.3) Estimated GFR (Cockcroft-Gault) 6.5 BUN/Creatinine Ratio 3 (6-20) Glucose Level 149 mg/dL (70-99) Calcium Level 8.7 mg/dL (8.5-10.1) Total Bilirubin 0.5 mg/dL (0.2-1.0) Aspartate Amino Transf (AST/SGOT) 43 U/L (15-37) Alanine Aminotransferase (ALT/SGPT) 143 U/L (16-63) Alkaline Phosphatase 157 U/L (46-116) Total Protein 6.6 g/dL (6.4-8.2) Albumin 2.1 g/dL (3.4-5.0) Albumin/Globulin Ratio 0.5 (1.0-1.7) Microbiology 11/29/18 Blood Culture - Final, Complete Medications Current Medications Vancomycin HCl (Vanco Per Pharmacy) 1 each 1X ONCE MC ; Start 11/29/18 at 18:15 ; Stop 11/29/18 at 18:16; Status Cancel Piperacillin Sod/ Tazobactam Sod 3.375 gm/Sodium Chloride 50 ml @ 100 mls/hr 1X ONCE IV Last administered on 11/29/18at 18:45; Start 11/29/18 at 18:15; Stop 11/29/18 at 18:44; Status DC Ondansetron HCl (Zofran) 4 mg 1X ONCE IV Last administered on 11/29/18at 18:43 ; Start 11/29/18 at 18:15; Stop 11/29/18 at 18:23; Status DC Vancomycin HCl 2 gm/Sodium Chloride 500 ml @ 250 mls/hr 1X ONCE IV Last administered on 11/29/18at 18:46; Start 11/29/18 at 19:00; Stop 11/29/18 at 20:59 ; Status DC Iron Sucrose 200 mg/Sodium Chloride 110 ml @ 55 mls/hr 1X ONCE IV Last administered on 11/29/18at 22:20; Start 11/29/18 at 19:15; Stop 11/29/18 at 21:14 ; Status DC Ondansetron HCl (Zofran) 4 mg PRN Q8HRS PRN IV NAUSEA/VOMITING; Start 11/29/18 at 19:30; Stop 11/29/18 at 19:36; Status DC Fentanyl Citrate (Fentanyl 2ml Vial) 50 mcg PRN Q1HR PRN IV PAIN Last administered on 11/30/18 16:23; Start 11/29/18 at 19:30; Stop 11/30/18 at 19:29 ; Status DC Acetaminophen (Tylenol) 650 mg PRN Q4HRS PRN PO FEVER Last administered on 11/30 17:35; Start 11/29/18 at 19:30; Stop 11/30/18 at 19:29; Status DC Ondansetron HCl (Zofran) 4 mg PRN Q6HRS PRN IV NAUSEA/VOMITING; Start 11/29/18 at 19:45 Amlodipine Besylate (Norvasc) 10 mg DAILY PO Last administered on 12/03/18 11: 42; Start 11/30/18 at 09:00 Clonidine HCl (Catapres) 0.2 mg BID PO Last administered on 12/03/18 11:43; Start 11/29/18 at 21:00 Docusate Sodium (Colace) 100 mg BID PO Last administered on 12/03/18 11:47; Start 11/29/18 at 21:00 Furosemide (Lasix) 80 mg BID92 PO Last administered on 12/01/18 13:13; Start 11/29/18 at 20:00 Insulin Glargine (Lantus) 32 units HS SQ Last administered on 12/02/18 21:00; Start 11/29/18 at 21:00 Lisinopril (Prinivil) 40 mg BID PO Last administered on 12/03/18 11:46; Start 11/29/18 at 21:00 Sevelamer Carbonate (Renvela) 4,000 mg TIDWMEALS PO Last administered on 12:04; Start 11/30/18 at 08:00 Calcitriol (Rocaltrol) 0.25 mcg DAILY PO Last administered on 12/03/18 11:46; Start 11/30/18 at 09:00 Carvedilol (Coreg) 12.5 mg BIDWMEALS PO Last administered on 12/03/18 11:43; Start 11/30/18 at 08:00 Vitamin D (Vitamin D3) 5,000 unit DAILY PO Last administered on 12/03/18 11:43 ; Start 11/30/18 at 09:00 Cinacalcet (Sensipar) 60 mg DAILY PO Last administered on 12/03/18at 11:46; Start 11/30/18 at 09:00 Polyethylene Glycol (miraLAX PACKET) 17 gm DAILY PO Last administered on at 11:44; Start 11/30/18 at 09:00 Sennosides (Senna) 8.6 mg BID PO Last administered on 12/03/18at 11:46; Start at 21:00 Simvastatin (Zocor) 20 mg HS PO Last administered on 12/02/18at 20:46; Start at 21:00 Vitamin B Complex/ Vitamin C (Johanna-Celia) 1 tab DAILY PO Last administered on at 11:43; Start 11/30/18 at 09:00 Insulin Human Lispro (HumaLOG) 0-9 UNITS TIDWMEALS SQ Last administered on 11/29at 22:44; Start 11/30/18 at 08:00; Stop 11/30/18 at 10:28; Status DC Dextrose (Dextrose 50%-Water Syringe) 12.5 gm PRN Q15MIN PRN IV SEE COMMENTS; Start 11/29/18 at 19:45 Aspirin (Anshul Aspirin) 325 mg 1X ONCE PO Last administered on 11/29/18at 20:19 ; Start 11/29/18 at 19:45; Stop 11/29/18 at 19:46; Status DC Labetalol HCl (Normodyne Iv Push) 10 mg PRN Q2HR PRN IVP HYPERTENSION, SEE COMMENTS Last administered on 12/03/18at 04:25; Start 11/30/18 at 04:00 Sodium Chloride 1,000 ml @ 100 mls/hr 1X ONCE IV Last administered on at 04:17; Start 11/30/18 at 04:30; Stop 11/30/18 at 05:57; Status DC Darbepoetin David (Aranesp) 100 mcg 1X ONCE SQ Last administered on 11/30/18at 06:06; Start 11/30/18 at 07:00; Stop 11/30/18 at 07:01; Status DC Sodium Chloride 1,000 ml @ 1,000 mls/hr Q1H PRN IV hypotension; Start 11/30/18 at 07:34; Stop 11/30/18 at 13:39; Status DC Albumin Human 200 ml @ 200 mls/hr 1X PRN PRN IV Hypotension; Start 11/30/18 at 07:45; Stop 11/30/18 at 13:44; Status DC Diphenhydramine HCl (Benadryl) 25 mg 1X PRN PRN IV ITCHING; Start 11/30/18 at 07:45; Stop 12/01/18 at 07:44; Status DC Sodium Chloride 1,000 ml @ 400 mls/hr Q2H30M PRN IV PATENCY; Start 11/30/18 at 07:34; Stop 11/30/18 at 19:33; Status DC Info (PHARMACY MONITORING -- do not chart) 1 each PRN DAILY PRN MC SEE COMMENTS ; Start 11/30/18 at 07:45 Info (PHARMACY MONITORING -- do not chart) 1 each PRN DAILY PRN MC SEE COMMENTS ; Start 11/30/18 at 07:45; Status UNV Darbepoetin David (Aranesp) 60 mcg WEEKLYHS SQ ; Start 11/30/18 at 21:00; Stop at 21:00; Status DC Darbepoetin David (Aranesp) 60 mcg WEEKLYHS SQ ; Start 12/07/18 at 21:00 Insulin Human Lispro (HumaLOG) 0-9 UNITS TIDWMEALS SQ Last administered on 12/02at 17:06; Start 11/30/18 at 12:00 Dextrose (Dextrose 50%-Water Syringe) 12.5 gm PRN Q15MIN PRN IV SEE COMMENTS; Start 11/30/18 at 10:30; Status UNV Vancomycin HCl (Vanco Per Pharmacy) 1 each PRN DAILY PRN MC SEE COMMENTS Last administered on 12/02/18at 13:47; Start 11/30/18 at 12:15 Piperacillin Sod/ Tazobactam Sod (Zosyn Per Pharmacy) 1 each PRN DAILY PRN MC SEE COMMENTS; Start 11/30/18 at 12:15 Piperacillin Sod/ Tazobactam Sod 2.25 gm/Sodium Chloride 50 ml @ 100 mls/hr Q8HRS IV Last administered on 12/03/18at 04:25; Start 11/30/18 at 13:00 Calcium Carbonate/ Glycine (Tums) 500 mg PRN BID PRN PO INDIGESTION; Start at 13:30 Albuterol Sulfate (Ventolin Neb Soln) 2.5 mg PRN Q6HRS PRN NEB SHORTNESS OF BREATH; Start 11/30/18 at 13:45 Non-Formulary Medication (Epoetin David (Procrit)) 10,000 unit WEEKLY IJ ; Start 12/07/18 at 09:00; Stop 12/07/18 at 09:00; Status DC Fluticasone Propionate (Flonase) 2 spray DAILY NS Last administered on at 13:31; Start 11/30/18 at 14:00 Pantoprazole Sodium (Protonix) 40 mg DAILYAC PO Last administered on 12/03/18at 11:43; Start 11/30/18 at 14:00 Vancomycin HCl (Vancomycin Random Level) 1 each 1X ONCE MC Last administered on 11/30/18at 16:00; Start 11/30/18 at 16:00; Stop 11/30/18 at 16:01; Status DC Sodium Cl/Sod Bicarb/Potass Cl/ PEG (Golytely) 4,000 ml 1X ONCE PO Last administered on 11/30/18at 17:33; Start 11/30/18 at 18:00; Stop 11/30/18 at 18:01 ; Status DC Polyethylene Glycol (miraLAX PACKET) 17 gm PRN DAILY PRN PO CONSTIPATION; Start 11/30/18 at 17:00 Acetaminophen (Tylenol) 650 mg PRN Q4HRS PRN PO FEVER Last administered on 12/01at 15:41; Start 11/30/18 at 20:15 Vancomycin HCl 500 mg/Sodium Chloride 100 ml @ 100 mls/hr QMWF IV Last administered on 12/01/18at 17:22; Start 12/01/18 at 16:00 Sodium Chloride 1,000 ml @ 1,000 mls/hr Q1H PRN IV hypotension; Start 12/01/18 at 07:00; Stop 12/01/18 at 18:00; Status DC Sodium Chloride 1,000 ml @ 400 mls/hr Q2H30M PRN IV PATENCY; Start 12/01/18 at 07:00; Stop 12/01/18 at 18:59; Status DC Info (PHARMACY MONITORING -- do not chart) 1 each PRN DAILY PRN MC SEE COMMENTS ; Start 12/01/18 at 10:30; Status UNV Info (PHARMACY MONITORING -- do not chart) 1 each PRN DAILY PRN MC SEE COMMENTS ; Start 12/01/18 at 10:30; Status UNV Heparin Sodium (Porcine) 5000 unit/Sodium Chloride 505 ml @ 505 mls/hr 1X ONCE IRR Last administered on 12/02/18at 11:05; Start 12/02/18 at 07:00; Stop at 07:59; Status DC Bupivacaine HCl/ Epinephrine Bitart (Sensorcain-Mpf Epi 0.5%-1:000761) 30 ml STK -MED ONCE .ROUTE Last administered on 12/02/18at 11:05; Start 12/02/18 at 07:36 ; Stop 12/02/18 at 07:37; Status DC Fentanyl Citrate (Fentanyl 2ml Vial) 100 mcg STK-MED ONCE .ROUTE ; Start at 09:05; Stop 12/02/18 at 09:06; Status DC Rocuronium [place] (Zemuron) 50 mg STK-MED ONCE .ROUTE ; Start 12/02/18 at 09:05 ; Stop 12/02/18 at 09:06; Status DC Lidocaine HCl (Lidocaine Pf 2% Vial) 5 ml STK-MED ONCE .ROUTE ; Start 12/02/18 at 09:05; Stop 12/02/18 at 09:06; Status DC Propofol 20 ml @ As Directed STK-MED ONCE IV ; Start 12/02/18 at 09:06; Stop at 09:07; Status DC Dexamethasone Sodium Phosphate (Decadron) 20 mg STK-MED ONCE .ROUTE ; Start at 09:06; Stop 12/02/18 at 09:07; Status DC Ondansetron HCl (Zofran) 4 mg STK-MED ONCE .ROUTE ; Start 12/02/18 at 09:06; Stop 12/02/18 at 09:07; Status DC Insulin Human Lispro (HumaLOG) 10 units 1X ONCE SQ ; Start 12/02/18 at 09:45; Stop 12/02/18 at 09:46; Status DC Levofloxacin/ Dextrose 100 ml @ As Directed STK-MED ONCE IV ; Start 12/02/18 at 10:46; Stop 12/02/18 at 10:47; Status DC Metoclopramide HCl (Reglan Vial) 10 mg STK-MED ONCE .ROUTE ; Start 12/02/18 at 10:59; Stop 12/02/18 at 11:00; Status DC Neostigmine Methylsulfate (Bloxiverz) 10 mg STK-MED ONCE .ROUTE ; Start at 12:25; Stop 12/02/18 at 12:26; Status DC Glycopyrrolate (Robinul) 1 mg STK-MED ONCE .ROUTE ; Start 12/02/18 at 12:25; Stop 12/02/18 at 12:26; Status DC Sevoflurane (Ultane) 90 ml STK-MED ONCE IH ; Start 12/02/18 at 12:27; Stop 12/02 at 12:28; Status DC Ondansetron HCl (Zofran) 4 mg PRN Q6HRS PRN IV NAUSEA/VOMITING; Start 12/02/18 at 13:00; Stop 12/03/18 at 12:59; Status DC Fentanyl Citrate (Fentanyl 2ml Vial) 25 mcg PRN Q5MIN PRN IV MILD PAIN; Start 12/02/18 at 13:00; Stop 12/02/18 at 20:24; Status DC Fentanyl Citrate (Fentanyl 2ml Vial) 50 mcg PRN Q5MIN PRN IV MODERATE TO SEVERE PAIN Last administered on 12/02/18at 13:46; Start 12/02/18 at 13:00; Stop 12/02/18 at 20:24; Status DC Morphine Sulfate (Morphine Sulfate) 1 mg PRN Q10MIN PRN IV SEVERE PAIN; Start 12/02/18 at 13:00; Stop 12/02/18 at 20:24; Status DC Ringer's Solution 1,000 ml @ 30 mls/hr Q24H IV ; Start 12/02/18 at 12:51; Stop 12/03/18 at 00:50; Status DC Lidocaine HCl (Xylocaine-Mpf 1% 2ml Vial) 2 ml 1X PRN PRN ID IV START; Start at 13:00; Stop 12/03/18 at 12:59; Status DC Hydromorphone HCl (Dilaudid) 0.5 mg PRN Q10MIN PRN IV SEV PAIN, Second choice Last administered on 12/02/18at 16:52; Start 12/02/18 at 13:00; Stop 12/03/18 at 12:59; Status DC Prochlorperazine Edisylate (Compazine) 5 mg PACU PRN PRN IV NAUSEA, MRX1; Start 12/02/18 at 13:00; Stop 12/03/18 at 12:59; Status DC Sodium Chloride 1,000 ml @ 100 mls/hr Q10H IV Last administered on 12/02/18at 13:04; Start 12/02/18 at 10:45; Stop 12/03/18 at 10:14; Status DC Hydromorphone HCl (Dilaudid) 1 mg PRN Q4HRS PRN IV pain Last administered on at 18:31; Start 12/02/18 at 13:15; Stop 12/02/18 at 20:24; Status DC Oxycodone/ Acetaminophen (Percocet 5/325) 1 tab PRN Q4HRS PRN PO PAIN Last administered on 12/03/18at 09:07; Start 12/02/18 at 13:15 Levofloxacin/ Dextrose 100 ml @ 100 mls/hr 1X ONCE IV ; Start 12/02/18 at 10: 45; Stop 12/02/18 at 13:23; Status DC Lactobacillus Rhamnosus (Culturelle) 1 cap BID PO Last administered on at 11:46; Start 12/02/18 at 21:00 Hydromorphone HCl (Dilaudid) 1 mg PRN Q3HRS PRN IV SEVERE PAIN Last administered on 12/03/18at 12:01; Start 12/02/18 at 20:30 Levofloxacin/ Dextrose (LEVAQUIN 500mg PREMIX) 500 mg STK-MED ONCE IV ; Start at 11:00; Stop 12/03/18 at 08:41; Status DC Sodium Chloride 1,000 ml @ 1,000 mls/hr Q1H PRN IV hypotension; Start 12/03/18 at 07:00; Stop 12/03/18 at 12:59; Status DC Sodium Chloride 1,000 ml @ 400 mls/hr Q2H30M PRN IV PATENCY; Start 12/03/18 at 07:00; Stop 12/03/18 at 18:59 Info (PHARMACY MONITORING -- do not chart) 1 each PRN DAILY PRN MC SEE COMMENTS ; Start 12/03/18 at 08:45; Status UNV Info (PHARMACY MONITORING -- do not chart) 1 each PRN DAILY PRN MC SEE COMMENTS ; Start 12/03/18 at 08:45 Active Scripts Active Reported Protonix (Pantoprazole Sodium) 20 Mg Tablet.dr 2 Tab PO DAILY Flonase Allergy Relief (Fluticasone Propionate) 9.9 Ml [place].susp 2 Sprays NS DAILY Procrit (Epoetin David) 10,000 Unit/1 Ml Vial 10,000 Unit IJ WEEKLY Tums (Calcium Carbonate) 200 Mg Tab.chew 200 Mg PO BID PRN Proair Respiclick (Albuterol Sulfate) 90 Mcg Aer.pow.ba 1-2 Puff IH PRN Q6HRS PRN Senna (Sennosides) 8.6 Mg Tablet 8.6 Mg PO BID Miralax (Polyethylene Glycol 3350) 17 Gm Powd.pack 1 Packet PO DAILY Colace (Docusate Sodium) 100 Mg Capsule 1 Cap PO BID Carvedilol 25 Mg Tablet 25 Mg PO BIDWMEALS Renvela (Sevelamer Carbonate) 800 Mg Tablet 5 Tab PO TIDWMEALS Furosemide 80 Mg Tablet 1 Tab PO BID Vitamin D (Cholecalciferol (Vitamin D3)) 5,000 Unit Tablet 5,000 Unit PO DAILY Calcitriol 0.25 Mcg Capsule 2 Cap PO DAILY Clonidine Hcl 0.2 Mg Tablet 1 Tab PO BID Johanna-Celia Rx Tablet (Vit B Cmplx 3/Fa/Vit C/Biotin) 1 Each Tablet 1 Each PO DAILY Sensipar (Cinacalcet Hcl) 60 Mg Tablet 60 Mg PO DAILY Amlodipine Besylate 10 Mg Tablet 10 Mg PO DAILY Simvastatin 20 Mg Tablet 20 Mg PO HS Lisinopril 40 Mg Tablet 1 Tab PO BID Novolog (Insulin Aspart) 100 Unit/1 Ml Vial 100 Unit SQ sliding scale Lantus Solostar (Insulin Glargine,Hum.rec.anlog) 100 Unit/1 Ml Insuln.pen 15 Unit SQ HS Vitals/I & O Vital Sign - Last 24 Hours 12/02/18 12/02/18 12/02/18 12/02/18 14:48 15:00 16:51 16:52 Temp 98.6 98.6 Pulse 86 86 Resp 18 20 16 B/P (MAP) 164/90 (114) 164/90 Pulse Ox 94 94 94 O2 Delivery Nasal Cannula Room Air Nasal Cannula O2 Flow Rate 2.0 2.0 12/02/18 12/02/18 12/02/18 12/02/18 17:25 18:31 19:07 20:00 Temp 98.2 98.2 Pulse 90 Resp 16 16 16 B/P (MAP) 150/91 (110) Pulse Ox 94 94 95 O2 Delivery Nasal Cannula Nasal Cannula Nasal Cannula Nasal Cannula O2 Flow Rate 2.0 2.0 2.0 2.0 12/02/18 12/02/18 12/02/18 12/02/18 20:46 20:47 20:47 20:47 Pulse 90 90 Resp 20 20 B/P (MAP) 150/91 150/91 O2 Delivery Nasal Cannula Nasal Cannula O2 Flow Rate 2.0 2.0 12/02/18 12/02/18 12/03/18 12/03/18 22:53 23:14 02:44 02:44 Temp 98.7 98.7 Pulse 95 Resp 20 18 20 20 B/P (MAP) 155/94 (114) Pulse Ox 92 O2 Delivery Nasal Cannula Nasal Cannula Nasal Cannula Nasal Cannula O2 Flow Rate 2.0 2.0 2.0 2.0 12/03/18 12/03/18 12/03/18 12/03/18 02:47 04:25 08:00 09:07 Temp 99.1 99.1 Pulse 98 98 Resp 18 16 B/P (MAP) 171/100 (123) 171/100 Pulse Ox 94 O2 Delivery Nasal Cannula Nasal Cannula Nasal Cannula O2 Flow Rate 2.0 2.0 2.0 12/03/18 12/03/18 12/03/18 12/03/18 09:08 09:49 11:15 11:25 Temp 99.0 99.0 Pulse 96 Resp 16 18 16 B/P (MAP) 160/88 (112) Pulse Ox 99 97 O2 Delivery Nasal Cannula Nasal Cannula Nasal Cannula O2 Flow Rate 2.0 2.0 2.0 12/03/18 12/03/18 12/03/18 12/03/18 11:42 11:43 11:43 11:46 Pulse 96 96 96 96 B/P (MAP) 160/88 160/88 160/88 160/88 2/20/19 2/20/19 12:01 12:31 Resp 16 16 O2 Delivery Nasal Cannula Nasal Cannula O2 Flow Rate 2.0 2.0 Intake and Output 12/02/18 12/02/18 12/03/18 15:00 23:00 07:00 Intake Total 300 ml 20 ml 100 ml Output Total 25 ml Balance 275 ml 20 ml 100 ml ACOSTA OSPINA MD Dec 03, 2018 14:31
[2018-12-03 15:00] VITALS: BP 149/87
[2018-12-03] MEDS: VANCOMYCIN PER PHARMACY MC PRN (15:53)
--- NOTE | 2018-12-03 16:12 | NUR ---
SW following pt. PT recommends home with assistance and pt does not have OT needs. Will continue to assess dc needs.
[2018-12-03] MEDS: VANCOMYCIN 500 MG in IV NORMAL SALINE 100ML 100 ML IV SCH (16:53)
--- NOTE | 2018-12-03 18:48 | NUR ---
Emar documentation: Patient only wanted 2 Renvela with meals since he is not eating enough on clear liquids.
[2018-12-03 19:00] VITALS: BP 133/62
[2018-12-03] MEDS: SIMVASTATIN 20 MG TABLET PO SCH (21:15)
[2018-12-03] MEDS: INSULIN GLARGINE 300 UNITS/3 ML INSULN.PEN. SQ SCH (21:22)
[2018-12-03 23:00] VITALS: BP 131/62
[2018-12-04 03:00] VITALS: BP 125/70
[2018-12-04 03:52] LABS: BASO % 0 % (0-3); EOS # 0.4 x10^3/uL (0.0-0.7); EOS % 4 % (0-3); HEMATOCRIT 22.7 % (39.0-53.0); HEMOGLOBIN 7.3 g/dL (13.0-17.5); LYMPH # 0.9 x10^3/uL (1.0-4.8); LYMPH % 8 % (24-48); MEAN CORPUSCULAR HEMOGLOBIN 28 pg (25-35); MEAN CORPUSCULAR HGB CONC 32 g/dL (31-37); MEAN CORPUSCULAR VOLUME 86 fL (79-100); MONO # 1.1 x10^3/uL (0.0-1.1); MONO % 10 % (0-9); NEUT # 8.7 x10^3uL (1.8-7.7); NEUT % 78 % (31-73); PLATELET COUNT 266 x10^3/uL (140-400); RED BLOOD COUNT 2.65 x10^6/uL (4.30-5.70); RED CELL DISTRIBUTION WIDTH 18.4 % (11.5-14.5); WHITE BLOOD COUNT 11.2 x10^3/uL (4.0-11.0)
[2018-12-04 04:26] LABS: ALBUMIN/GLOBULIN RATIO 0.4 (1.0-1.7); CALCIUM 8.8 mg/dL (8.5-10.1); CREATININE 9.4 mg/dL (0.7-1.3); GFR 7.7; POTASSIUM 4.4 mmol/L (3.5-5.1); TOTAL BILIRUBIN 0.4 mg/dL (0.2-1.0); TOTAL PROTEIN 6.5 g/dL (6.4-8.2)
[2018-12-04 07:15] VITALS: BP 141/85
[2018-12-04] MEDS: INSULIN LISPRO 300 UNITS/3 ML INSULN.PEN. SQ SCH ×3 (08:00→17:00)
--- NOTE | 2018-12-04 08:04 | PDOC ---
Infectious Disease Note Subjective Subjective Less pain No F/C/S/N/V/SOA/Rash or pain. Cough better Vital Sign Vital Signs Vital Signs Date Time Temp Pulse Resp B/P (MAP) Pulse Ox O2 Delivery O2 Flow Rate FiO2 12/04/18 07:15 99.5 87 16 141/85 (103) 98 Nasal Cannula 2.0 99.5 Physical Exam PHYSICAL EXAM GEN: Coop, NAD HEENT: Pupils are equally round, reactive. Normal conjunctivae. Oral cavity: Pharynx pink and moist. NECK: Supple. He has a small wound with a stitch in place on right-sided neck without surrounding redness or drainage. Scabbing LUNGS: Clear to auscultation. HEART: S1 and S2. ABDOMEN: Mild distension. Dressed. PD in place EXTREMITIES: No gross edema or cyanosis. SKIN: Warm without generalized rash. NEUROLOGIC: Alert and oriented x 3. LINES: Right-sided tunneled HD catheter (11/26) without signs of any complications. RUE PIV - improved swelling - no warmth/erythema. NT Labs Lab Laboratory Tests Test 12/03/18 11:22 12/03/18 16:44 12/03/18 21:13 12/04/18 03:40 Glucose (Fingerstick) 70 mg/dL (70-99) 155 mg/dL (70-99) 226 mg/dL (70-99) White Blood Count 11.2 x10^3/uL (4.0-11.0) Red Blood Count 2.65 x10^6/uL (4.30-5.70) Hemoglobin 7.3 g/dL (13.0-17.5) Hematocrit 22.7 % (39.0-53.0) Mean Corpuscular Volume 86 fL (79-100) Mean Corpuscular Hemoglobin 28 pg (25-35) Mean Corpuscular Hemoglobin Concent 32 g/dL (31-37) Red Cell Distribution Width 18.4 % (11.5-14.5) Platelet Count 266 x10^3/uL (140-400) Neutrophils (%) (Auto) 78 % (31-73) Lymphocytes (%) (Auto) 8 % (24-48) Monocytes (%) (Auto) 10 % (0-9) Eosinophils (%) (Auto) 4 % (0-3) Basophils (%) (Auto) 0 % (0-3) Neutrophils # (Auto) 8.7 x10^3uL (1.8-7.7) Lymphocytes # (Auto) 0.9 x10^3/uL (1.0-4.8) Monocytes # (Auto) 1.1 x10^3/uL (0.0-1.1) Eosinophils # (Auto) 0.4 x10^3/uL (0.0-0.7) Basophils # (Auto) 0.0 x10^3/uL (0.0-0.2) Sodium Level 138 mmol/L (136-145) Potassium Level 4.4 mmol/L (3.5-5.1) Chloride Level 97 mmol/L (98-107) Carbon Dioxide Level 30 mmol/L (21-32) Anion Gap 11 (6-14) Blood Urea Nitrogen 26 mg/dL (8-26) Creatinine 9.4 mg/dL (0.7-1.3) Estimated GFR (Cockcroft-Gault) 7.7 BUN/Creatinine Ratio 3 (6-20) Glucose Level 170 mg/dL (70-99) Calcium Level 8.8 mg/dL (8.5-10.1) Total Bilirubin 0.4 mg/dL (0.2-1.0) Aspartate Amino Transf (AST/SGOT) 22 U/L (15-37) Alanine Aminotransferase (ALT/SGPT) 95 U/L (16-63) Alkaline Phosphatase 142 U/L (46-116) Total Protein 6.5 g/dL (6.4-8.2) Albumin 2.0 g/dL (3.4-5.0) Albumin/Globulin Ratio 0.4 (1.0-1.7) Test 12/04/18 07:12 Glucose (Fingerstick) 95 mg/dL (70-99) Micro Blood cult 11/29 BLOOD CULTURE LC Final Final report BLD CULT RESULT 1 Final Staphylococcus aureus Most isolates of Staphylococcus sp. produce a beta- lactamase enzyme rendering them resistant to penicillin. Please contact the laboratory if penicillin is being considered for therapy. CLINDAMYCIN =S ERYTHROMYCIN =S ANTIMICROBIAL SUSCEPTIBILITY Final Comment S = Susceptible; I = Intermediate; R = Resistant P = Positive; N = Negative MICS are expressed in micrograms per mL Antibiotic RSLT#1 RSLT#2 RSLT#3 RSLT#4 Ciprofloxacin S<=0.5 Gentamicin S<=0.5 Levofloxacin S<=0.12 Linezolid S =2 Moxifloxacin S<=0.25 Nitrofurantoin S<=16 Oxacillin S<=0.25 Quinupristin/Dalfopristin S<=0.25 Rifampin S<=0.5 Tetracycline S<=1 Trimethoprim/Sulfa S<=10 Vancomycin S<=0. Microbiology 11/29/18 Blood Culture - Preliminary, Resulted NO GROWTH AFTER 1 DAY Objective Assessment Sepsis POA. MSSA ? line infection - clinically better (3 of 4 bottles) POA 11/29 -staph species Leukocytosis - up but post procedure 12/02 and steroids Transaminitis ? sepsis - improving Fever - better PCN allergy - nausea. Has tolerated Zosyn without problem Constipation Acute diastolic CHF CKD on HD (s/p HDC 11/26; small neck wound w/ stitch in place) Malfunctioning peritoneal catheter -s/p repositioning 12/02 Anemia. s/p iron and PRBCs Diabetes Plan Plan of Care Repeat Blood cults - today ECHO Will need HD cath removed - consult IR Discontinue vanc Zosyn (11/29). Monitor labs - LFTs/temp D/w nursing D/w family on phone ECHO HENNESSY MD Dec 04, 2018 08:04
[2018-12-04] MEDS: POLYETHYLENE GLYCOL 3350 17 GM PACKET. PO SCH (08:40)
[2018-12-04] MEDS: SEVELAMER CARBONATE 800 MG TABLET. PO SCH ×3 (08:40→17:00)
[2018-12-04] MEDS: CALCITRIOL 0.25 MCG CAPSULE. PO SCH (08:41)
[2018-12-04] MEDS: PANTOPRAZOLE 40 MG TABLET.DR. PO SCH (08:41)
[2018-12-04] MEDS: SENNOSIDES 8.6 MG TABLET PO SCH ×2 (08:41→22:49)
[2018-12-04] MEDS: DOCUSATE SODIUM 100 MG CAPSULE. PO SCH ×2 (08:41→22:51)
[2018-12-04] MEDS: FOLIC/VIT B COMP W-C (RENAL) TABLET. PO SCH (08:41)
[2018-12-04] MEDS: FUROSEMIDE 80 MG TABLET. PO SCH ×2 (08:41→13:57)
[2018-12-04] MEDS: CHOLECALCIFEROL (VITAMIN D3) 5,000 UNIT CAPSULE PO SCH (08:42)
[2018-12-04] MEDS: CARVEDILOL 12.5 MG TABLET. PO SCH ×2 (08:42→17:49)
[2018-12-04] MEDS: LACTOBACILLUS RHAMNOSUS GG 1 CAPSULE. PO SCH ×2 (08:42→22:50)
[2018-12-04] MEDS: CINACALCET HCL 30 MG TABLET PO SCH (08:42)
[2018-12-04] MEDS: amLODIPine BESYLATE 10 MG TABLET PO SCH (08:42)
[2018-12-04] MEDS: LISINOPRIL 20 MG TABLET PO SCH ×2 (08:43→22:50)
[2018-12-04] MEDS: cloNIDine HCL 0.2 MG TABLET PO SCH ×2 (08:43→22:51)
[2018-12-04] MEDS: ACETAMINOPHEN 325 MG TABLET. PO PRN ×2 (08:50→13:57)
[2018-12-04] MEDS: FLUTICASONE 50MCG/NASAL SPRAY 16GM BOTTLE. NS SCH (08:52)
--- NOTE | 2018-12-04 10:51 | PDOC ---
MASON NEVAREZ [employer] 12/04/18 1051: SURGICAL PROGRESS NOTE Subjective resting some nausea, bloating no flatus yet Vital Signs Vital Signs Date Time Temp Pulse Resp B/P (MAP) Pulse Ox O2 Delivery O2 Flow Rate FiO2 12/04/18 08:43 87 141/85 12/04/18 07:30 Room Air 12/04/18 07:15 99.5 16 98 2.0 99.5 I&O Intake and Output 12/04/18 07:00 Intake Total 930 ml Balance 930 ml Intake Oral 880 ml IV Total 50 ml General: Alert, Oriented X3, Cooperative, No acute distress Abdomen: Soft, Other (mild distention) Labs Laboratory Tests Test 12/02/18 12:51 12/02/18 17:00 12/02/18 20:39 12/03/18 03:20 Glucose (Fingerstick) 229 mg/dL (70-99) 272 mg/dL (70-99) 224 mg/dL (70-99) White Blood Count 11.5 x10^3/uL (4.0-11.0) Red Blood Count 2.95 x10^6/uL (4.30-5.70) Hemoglobin 8.2 g/dL (13.0-17.5) Hematocrit 25.4 % (39.0-53.0) Mean Corpuscular Volume 86 fL (79-100) Mean Corpuscular Hemoglobin 28 pg (25-35) Mean Corpuscular Hemoglobin Concent 32 g/dL (31-37) Red Cell Distribution Width 18.8 % (11.5-14.5) Platelet Count 291 x10^3/uL (140-400) Neutrophils (%) (Auto) 79 % (31-73) Lymphocytes (%) (Auto) 8 % (24-48) Monocytes (%) (Auto) 9 % (0-9) Eosinophils (%) (Auto) 4 % (0-3) Basophils (%) (Auto) 1 % (0-3) Neutrophils # (Auto) 9.0 x10^3uL (1.8-7.7) Lymphocytes # (Auto) 0.9 x10^3/uL (1.0-4.8) Monocytes # (Auto) 1.0 x10^3/uL (0.0-1.1) Eosinophils # (Auto) 0.4 x10^3/uL (0.0-0.7) Basophils # (Auto) 0.1 x10^3/uL (0.0-0.2) Sodium Level 138 mmol/L (136-145) Potassium Level 4.9 mmol/L (3.5-5.1) Chloride Level 99 mmol/L (98-107) Carbon Dioxide Level 29 mmol/L (21-32) Anion Gap 10 (6-14) Blood Urea Nitrogen 34 mg/dL (8-26) Creatinine 10.8 mg/dL (0.7-1.3) Estimated GFR (Cockcroft-Gault) 6.5 BUN/Creatinine Ratio 3 (6-20) Glucose Level 149 mg/dL (70-99) Calcium Level 8.7 mg/dL (8.5-10.1) Total Bilirubin 0.5 mg/dL (0.2-1.0) Aspartate Amino Transf (AST/SGOT) 43 U/L (15-37) Alanine Aminotransferase (ALT/SGPT) 143 U/L (16-63) Alkaline Phosphatase 157 U/L (46-116) Total Protein 6.6 g/dL (6.4-8.2) Albumin 2.1 g/dL (3.4-5.0) Albumin/Globulin Ratio 0.5 (1.0-1.7) Test 12/03/18 11:22 12/03/18 16:44 12/03/18 21:13 12/04/18 03:40 Glucose (Fingerstick) 70 mg/dL (70-99) 155 mg/dL (70-99) 226 mg/dL (70-99) White Blood Count 11.2 x10^3/uL (4.0-11.0) Red Blood Count 2.65 x10^6/uL (4.30-5.70) Hemoglobin 7.3 g/dL (13.0-17.5) Hematocrit 22.7 % (39.0-53.0) Mean Corpuscular Volume 86 fL (79-100) Mean Corpuscular Hemoglobin 28 pg (25-35) Mean Corpuscular Hemoglobin Concent 32 g/dL (31-37) Red Cell Distribution Width 18.4 % (11.5-14.5) Platelet Count 266 x10^3/uL (140-400) Neutrophils (%) (Auto) 78 % (31-73) Lymphocytes (%) (Auto) 8 % (24-48) Monocytes (%) (Auto) 10 % (0-9) Eosinophils (%) (Auto) 4 % (0-3) Basophils (%) (Auto) 0 % (0-3) Neutrophils # (Auto) 8.7 x10^3uL (1.8-7.7) Lymphocytes # (Auto) 0.9 x10^3/uL (1.0-4.8) Monocytes # (Auto) 1.1 x10^3/uL (0.0-1.1) Eosinophils # (Auto) 0.4 x10^3/uL (0.0-0.7) Basophils # (Auto) 0.0 x10^3/uL (0.0-0.2) Sodium Level 138 mmol/L (136-145) Potassium Level 4.4 mmol/L (3.5-5.1) Chloride Level 97 mmol/L (98-107) Carbon Dioxide Level 30 mmol/L (21-32) Anion Gap 11 (6-14) Blood Urea Nitrogen 26 mg/dL (8-26) Creatinine 9.4 mg/dL (0.7-1.3) Estimated GFR (Cockcroft-Gault) 7.7 BUN/Creatinine Ratio 3 (6-20) Glucose Level 170 mg/dL (70-99) Calcium Level 8.8 mg/dL (8.5-10.1) Total Bilirubin 0.4 mg/dL (0.2-1.0) Aspartate Amino Transf (AST/SGOT) 22 U/L (15-37) Alanine Aminotransferase (ALT/SGPT) 95 U/L (16-63) Alkaline Phosphatase 142 U/L (46-116) Total Protein 6.5 g/dL (6.4-8.2) Albumin 2.0 g/dL (3.4-5.0) Albumin/Globulin Ratio 0.4 (1.0-1.7) Test 12/04/18 07:12 Glucose (Fingerstick) 95 mg/dL (70-99) Laboratory Tests Test 12/03/18 11:22 12/03/18 16:44 12/03/18 21:13 12/04/18 03:40 Glucose (Fingerstick) 70 mg/dL (70-99) 155 mg/dL (70-99) 226 mg/dL (70-99) White Blood Count 11.2 x10^3/uL (4.0-11.0) Red Blood Count 2.65 x10^6/uL (4.30-5.70) Hemoglobin 7.3 g/dL (13.0-17.5) Hematocrit 22.7 % (39.0-53.0) Mean Corpuscular Volume 86 fL (79-100) Mean Corpuscular Hemoglobin 28 pg (25-35) Mean Corpuscular Hemoglobin Concent 32 g/dL (31-37) Red Cell Distribution Width 18.4 % (11.5-14.5) Platelet Count 266 x10^3/uL (140-400) Neutrophils (%) (Auto) 78 % (31-73) Lymphocytes (%) (Auto) 8 % (24-48) Monocytes (%) (Auto) 10 % (0-9) Eosinophils (%) (Auto) 4 % (0-3) Basophils (%) (Auto) 0 % (0-3) Neutrophils # (Auto) 8.7 x10^3uL (1.8-7.7) Lymphocytes # (Auto) 0.9 x10^3/uL (1.0-4.8) Monocytes # (Auto) 1.1 x10^3/uL (0.0-1.1) Eosinophils # (Auto) 0.4 x10^3/uL (0.0-0.7) Basophils # (Auto) 0.0 x10^3/uL (0.0-0.2) Sodium Level 138 mmol/L (136-145) Potassium Level 4.4 mmol/L (3.5-5.1) Chloride Level 97 mmol/L (98-107) Carbon Dioxide Level 30 mmol/L (21-32) Anion Gap 11 (6-14) Blood Urea Nitrogen 26 mg/dL (8-26) Creatinine 9.4 mg/dL (0.7-1.3) Estimated GFR (Cockcroft-Gault) 7.7 BUN/Creatinine Ratio 3 (6-20) Glucose Level 170 mg/dL (70-99) Calcium Level 8.8 mg/dL (8.5-10.1) Total Bilirubin 0.4 mg/dL (0.2-1.0) Aspartate Amino Transf (AST/SGOT) 22 U/L (15-37) Alanine Aminotransferase (ALT/SGPT) 95 U/L (16-63) Alkaline Phosphatase 142 U/L (46-116) Total Protein 6.5 g/dL (6.4-8.2) Albumin 2.0 g/dL (3.4-5.0) Albumin/Globulin Ratio 0.4 (1.0-1.7) Test 12/04/18 07:12 Glucose (Fingerstick) 95 mg/dL (70-99) Problem List Problems Medical Problems: (1) Abnormal EKG Status: Acute (2) Elevated troponin Status: Acute (3) End stage renal disease Status: Acute (4) Fever Status: Acute Assessment/Plan s/p open pd cath revision await improved bowel function PONCHO STRANGE MD 12/04/18 1155: SURGICAL PROGRESS NOTE Assessment/Plan pt seen as above increase activity will not be able to use PD for a time while healing from surgery MASON NEVAREZ APRN Dec 04, 2018 10:51 PONCHO STRANGE MD Dec 04, 2018 11:55
[2018-12-04 11:25] VITALS: BP 124/77
--- NOTE | 2018-12-04 11:52 | PDOC ---
Subjective: Subjective: Had nausea yesterday twice - none today. Tolerating clears. Has abd pain - better today. No flatus. Would really like to take a shower. Objective: Vital Signs: Vital Signs Date Time Temp Pulse Resp B/P (MAP) Pulse Ox O2 Delivery O2 Flow Rate FiO2 12/04/18 11:25 98.5 85 18 124/77 (93) 92 Room Air 98.5 12/04/18 07:15 2.0 Labs: Laboratory Tests Test 12/03/18 16:44 12/03/18 21:13 12/04/18 03:40 12/04/18 07:12 Glucose (Fingerstick) 155 mg/dL 226 mg/dL 95 mg/dL White Blood Count 11.2 x10^3/uL Red Blood Count 2.65 x10^6/uL Hemoglobin 7.3 g/dL Hematocrit 22.7 % Mean Corpuscular Volume 86 fL Mean Corpuscular Hemoglobin 28 pg Mean Corpuscular Hemoglobin Concent 32 g/dL Red Cell Distribution Width 18.4 % Platelet Count 266 x10^3/uL Neutrophils (%) (Auto) 78 % Lymphocytes (%) (Auto) 8 % Monocytes (%) (Auto) 10 % Eosinophils (%) (Auto) 4 % Basophils (%) (Auto) 0 % Neutrophils # (Auto) 8.7 x10^3uL Lymphocytes # (Auto) 0.9 x10^3/uL Monocytes # (Auto) 1.1 x10^3/uL Eosinophils # (Auto) 0.4 x10^3/uL Basophils # (Auto) 0.0 x10^3/uL Sodium Level 138 mmol/L Potassium Level 4.4 mmol/L Chloride Level 97 mmol/L Carbon Dioxide Level 30 mmol/L Anion Gap 11 Blood Urea Nitrogen 26 mg/dL Creatinine 9.4 mg/dL Estimated GFR (Cockcroft-Gault) 7.7 BUN/Creatinine Ratio 3 Glucose Level 170 mg/dL Calcium Level 8.8 mg/dL Total Bilirubin 0.4 mg/dL Aspartate Amino Transf (AST/SGOT) 22 U/L Alanine Aminotransferase (ALT/SGPT) 95 U/L Alkaline Phosphatase 142 U/L Total Protein 6.5 g/dL Albumin 2.0 g/dL Albumin/Globulin Ratio 0.4 PE: GEN: NAD - looks more comfortable today LUNGS: CTAB HEART: RRR ABD: distended, tender, a few soft gurgles to right NEURO/PSYCH: A & O 3 A/P: S/p open repositioning PD cath and ANDREWS MSSA sepsis - plans to remove HD cath and check echo Chronic anemia - Hgb to 7.3 Elevated LFTs - still improving H/o constipation -- Continue same per GI. MORRIS LAMAR Dec 04, 2018 11:52
--- NOTE | 2018-12-04 12:30 | PDOC ---
SUBJECTIVE ROS Pain improved , Mild nausea OBJECTIVE Vital Signs Vital Signs Date Time Temp Pulse Resp B/P (MAP) Pulse Ox O2 Delivery O2 Flow Rate FiO2 12/04/18 11:25 98.5 85 18 124/77 (93) 92 Room Air 98.5 12/04/18 07:15 2.0 I & 0 Intake and Output 12/04/18 07:00 Intake Total 930 ml Balance 930 ml Intake Oral 880 ml IV Total 50 ml PHYSICAL EXAM Physical Exam GEN: NAD HEENT: OM moist NECK: Supple LUNGS: Clear to auscultation. HEART: S1 and S2. ABDOMEN: soft, nontender, PD cath + EXTREMITIES: No edema SKIN: No Rash NEUROLOGIC: Alert and oriented x 3. LINES: Right-sided tunneled HD catheter (11/26) DIAGNOSIS/ASSESSMENT Assessment & Plan ESRD - Has been on PD , currently MWF HD Non Functioning PD cath, repositioned on 11/01 initiated on HD last week at No Indication for HD today Non Functioning PD catheter -s/p repositioning 12/02 extensive adhesions upper abdomen, tissue ingrowth PD catheter As per GS - not be able to use PD for a time while healing from surgery Fever- ?Line sepsis ID on board, Remove cath on 12/05 post HD Anemia - avoid PRBC if possible since he is a Tx candidate On Aranesp ,significant drop in Hgb - Recd PRBC and Fe as recommended by Hem/ Onc Acute Diastolic CHF- Stable, On RA DM II- BS high Primary managing HTN- continue antihypertensives Hyperkalemia- resolved Transaminitis COMMENT/RELEVANT DATA Meds Current Medications Medications (Trade) Dose Ordered Sig/Afua Start Time Stop Time Status Last Admin Dose Admin Acetaminophen (Tylenol) 650 mg PRN Q4HRS PRN 11/30/18 20:15 12/04/18 08:50 650 MG Albumin Human 200 ml @ 200 mls/hr 1X PRN PRN 11/30/18 07:45 11/30/18 13:44 DC Albuterol Sulfate (Ventolin Neb Soln) 2.5 mg PRN Q6HRS PRN 11/30/18 13:45 Amlodipine Besylate (Norvasc) 10 mg DAILY 11/30/18 09:00 12/04/18 08:42 10 MG Aspirin (Anshul Aspirin) 325 mg 1X ONCE 11/29/18 19:45 11/29/18 19:46 DC 11/29/18 20:19 325 MG Bupivacaine HCl/ Epinephrine Bitart (Sensorcain-Mpf Epi 0.5%-[id number]) 30 ml STK-MED ONCE 12/02/18 07:36 12/02/18 07:37 DC 12/02/18 11:05 10 ML Calcitriol (Rocaltrol) 0.25 mcg DAILY 11/30/18 09:00 12/04/18 08:41 0.25 MCG Calcium Carbonate/ Glycine (Tums) 500 mg PRN BID PRN 11/30/18 13:30 Carvedilol (Coreg) 12.5 mg BIDWMEALS 11/30/18 08:00 12/04/18 08:42 12.5 MG Cinacalcet (Sensipar) 60 mg DAILY 11/30/18 09:00 12/04/18 08:42 60 MG Clonidine HCl (Catapres) 0.2 mg BID 11/29/18 21:00 12/04/18 08:43 0.2 MG Darbepoetin David (Aranesp) 60 mcg WEEKLYHS 12/07/18 21:00 Dexamethasone Sodium Phosphate (Decadron) 20 mg STK-MED ONCE 12/02/18 09:06 12/02/18 09:07 DC Dextrose (Dextrose 50%-Water Syringe) 12.5 gm PRN Q15MIN PRN 11/30/18 10:30 UNV Diphenhydramine HCl (Benadryl) 25 mg 1X PRN PRN 11/30/18 07:45 12/01/18 07:44 DC Docusate Sodium (Colace) 100 mg BID 11/29/18 21:00 12/04/18 08:41 100 MG Fentanyl Citrate (Fentanyl 2ml Vial) 50 mcg PRN Q5MIN PRN 12/02/18 13:00 12/02/18 20:24 DC 12/02/18 13:46 50 MCG Fluticasone Propionate (Flonase) 2 spray DAILY 11/30/18 14:00 12/01/18 13:31 2 SPRAY Furosemide (Lasix) 80 mg [id number] 11/29/18 20:00 12/04/18 08:41 80 MG Glycopyrrolate (Robinul) 1 mg STK-MED ONCE 12/02/18 12:25 12/02/18 12:26 DC Heparin Sodium (Porcine) 5000 unit/Sodium Chloride 505 ml @ 505 mls/hr 1X ONCE 12/02/18 07:00 12/02/18 07:59 DC 12/02/18 11:05 Hydromorphone HCl (Dilaudid) 1 mg PRN Q3HRS PRN 12/02/18 20:30 12/03/18 21:16 1 MG Info (PHARMACY MONITORING -- do not chart) 1 each PRN DAILY PRN 12/03/18 08:45 Insulin Glargine (Lantus) 32 units HS 11/29/18 21:00 12/03/18 21:22 32 UNITS Insulin Human Lispro (HumaLOG) 10 units 1X ONCE 12/02/18 09:45 12/02/18 09:46 DC Iron Sucrose 200 mg/Sodium Chloride 110 ml @ 55 mls/hr 1X ONCE 11/29/18 19:15 11/29/18 21:14 DC 11/29/18 22:20 55 MLS/HR Labetalol HCl (Normodyne Iv Push) 10 mg PRN Q2HR PRN 11/30/18 04:00 12/03/18 04:25 10 MG Lactobacillus Rhamnosus (Culturelle) 1 cap BID 12/02/18 21:00 12/04/18 08:42 1 CAP Levofloxacin/ Dextrose (LEVAQUIN 500mg PREMIX) 500 mg STK-MED ONCE 12/02/18 11:00 12/03/18 08:41 DC Lidocaine HCl (Lidocaine Pf 2% Vial) 5 ml STK-MED ONCE 12/02/18 09:05 12/02/18 09:06 DC Lidocaine HCl (Xylocaine-Mpf 1% 2ml Vial) 2 ml 1X PRN PRN 12/02/18 13:00 12/03/18 12:59 DC Lisinopril (Prinivil) 40 mg BID 11/29/18 21:00 12/04/18 08:43 40 MG Metoclopramide HCl (Reglan Vial) 10 mg STK-MED ONCE 12/02/18 10:59 12/02/18 11:00 DC Morphine Sulfate (Morphine Sulfate) 1 mg PRN Q10MIN PRN 12/02/18 13:00 12/02/18 20:24 DC Neostigmine Methylsulfate (Bloxiverz) 10 mg STK-MED ONCE 12/02/18 12:25 12/02/18 12:26 DC Non-Formulary Medication (Epoetin David (Procrit)) 10,000 unit WEEKLY 12/07/18 09:00 12/07/18 09:00 DC Ondansetron HCl (Zofran) 4 mg PRN Q6HRS PRN 12/02/18 13:00 12/03/18 12:59 DC Oxycodone/ Acetaminophen (Percocet 5/325) 1 tab PRN Q4HRS PRN 12/02/18 13:15 12/03/18 21:15 1 TAB Pantoprazole Sodium (Protonix) 40 mg DAILYAC 11/30/18 14:00 12/04/18 08:41 40 MG Piperacillin Sod/ Tazobactam Sod (Zosyn Per Pharmacy) 1 each PRN DAILY PRN 11/30/18 12:15 Piperacillin Sod/ Tazobactam Sod 2.25 gm/Sodium Chloride 50 ml @ 100 mls/hr Q8HRS 11/30/18 13:00 12/03/18 21:34 100 MLS/HR Piperacillin Sod/ Tazobactam Sod 3.375 gm/Sodium Chloride 50 ml @ 100 mls/hr 1X ONCE 11/29/18 18:15 11/29/18 18:44 DC 11/29/18 18:45 100 MLS/HR Polyethylene Glycol (miraLAX PACKET) 17 gm PRN DAILY PRN 11/30/18 17:00 Prochlorperazine Edisylate (Compazine) 5 mg PACU PRN PRN 12/02/18 13:00 12/03/18 12:59 DC Propofol 20 ml @ As Directed STK-MED ONCE 12/02/18 09:06 12/02/18 09:07 DC Ringer's Solution 1,000 ml @ 30 mls/hr Q24H 12/02/18 12:51 12/03/18 00:50 DC Rocuronium Gratiot (Zemuron) 50 mg STK-MED ONCE 12/02/18 09:05 12/02/18 09:06 DC Sennosides (Senna) 8.6 mg BID 11/29/18 21:00 12/04/18 08:41 8.6 MG Sevelamer Carbonate (Renvela) 4,000 mg TIDWMEALS 11/30/18 08:00 12/04/18 08:40 4,000 MG Sevoflurane (Ultane) 90 ml STK-MED ONCE 12/02/18 12:27 12/02/18 12:28 DC Simvastatin (Zocor) 20 mg HS 11/29/18 21:00 12/03/18 21:15 20 MG Sodium Chloride 1,000 ml @ 400 mls/hr Q2H30M PRN 12/03/18 07:00 12/03/18 18:59 DC Sodium Cl/Sod Bicarb/Potass Cl/ PEG (Golytely) 4,000 ml 1X ONCE 11/30/18 18:00 11/30/18 18:01 DC 11/30/18 17:33 4,000 ML Vancomycin HCl (Vanco Per Pharmacy) 1 each PRN DAILY PRN 11/30/18 12:15 12/04/18 08:03 DC 12/03/18 15:53 1 EACH Vancomycin HCl (Vancomycin Random Level) 1 each 1X ONCE 11/30/18 16:00 11/30/18 16:01 DC 11/30/18 16:00 1 EACH Vancomycin HCl 500 mg/Sodium Chloride 100 ml @ 100 mls/hr QMWF 12/01/18 16:00 12/04/18 08:03 DC 12/03/18 16:53 100 MLS/HR Vancomycin HCl 2 gm/Sodium Chloride 500 ml @ 250 mls/hr 1X ONCE 11/29/18 19:00 11/29/18 20:59 DC 11/29/18 18:46 250 MLS/HR Vitamin B Complex/ Vitamin C (Johanna-Celia) 1 tab DAILY 11/30/18 09:00 12/04/18 08:41 1 TAB Vitamin D (Vitamin D3) 5,000 unit DAILY 11/30/18 09:00 12/04/18 08:42 5,000 UNIT Lab Laboratory Tests Test 12/03/18 16:44 12/03/18 21:13 12/04/18 03:40 12/04/18 07:12 Glucose (Fingerstick) 155 mg/dL (70-99) 226 mg/dL (70-99) 95 mg/dL (70-99) White Blood Count 11.2 x10^3/uL (4.0-11.0) Red Blood Count 2.65 x10^6/uL (4.30-5.70) Hemoglobin 7.3 g/dL (13.0-17.5) Hematocrit 22.7 % (39.0-53.0) Mean Corpuscular Volume 86 fL (79-100) Mean Corpuscular Hemoglobin 28 pg (25-35) Mean Corpuscular Hemoglobin Concent 32 g/dL (31-37) Red Cell Distribution Width 18.4 % (11.5-14.5) Platelet Count 266 x10^3/uL (140-400) Neutrophils (%) (Auto) 78 % (31-73) Lymphocytes (%) (Auto) 8 % (24-48) Monocytes (%) (Auto) 10 % (0-9) Eosinophils (%) (Auto) 4 % (0-3) Basophils (%) (Auto) 0 % (0-3) Neutrophils # (Auto) 8.7 x10^3uL (1.8-7.7) Lymphocytes # (Auto) 0.9 x10^3/uL (1.0-4.8) Monocytes # (Auto) 1.1 x10^3/uL (0.0-1.1) Eosinophils # (Auto) 0.4 x10^3/uL (0.0-0.7) Basophils # (Auto) 0.0 x10^3/uL (0.0-0.2) Sodium Level 138 mmol/L (136-145) Potassium Level 4.4 mmol/L (3.5-5.1) Chloride Level 97 mmol/L (98-107) Carbon Dioxide Level 30 mmol/L (21-32) Anion Gap 11 (6-14) Blood Urea Nitrogen 26 mg/dL (8-26) Creatinine 9.4 mg/dL (0.7-1.3) Estimated GFR (Cockcroft-Gault) 7.7 BUN/Creatinine Ratio 3 (6-20) Glucose Level 170 mg/dL (70-99) Calcium Level 8.8 mg/dL (8.5-10.1) Total Bilirubin 0.4 mg/dL (0.2-1.0) Aspartate Amino Transf (AST/SGOT) 22 U/L (15-37) Alanine Aminotransferase (ALT/SGPT) 95 U/L (16-63) Alkaline Phosphatase 142 U/L (46-116) Total Protein 6.5 g/dL (6.4-8.2) Albumin 2.0 g/dL (3.4-5.0) Albumin/Globulin Ratio 0.4 (1.0-1.7) Test 12/04/18 11:48 Glucose (Fingerstick) 121 mg/dL (70-99) Results All relevant outside records, renal labs, imaging studies, telemetry/EKG's were reviewed. AYANNA PEREZ MD Dec 04, 2018 12:29
[2018-12-04] MEDS: PIPERACILLIN/TAZOBACTAM 2.25 GM in IV NORMAL SALINE 50ML 50 ML IV SCH ×2 (13:57→22:52)
[2018-12-04 15:15] VITALS: BP 134/82
[2018-12-04 16:15] LABS: IMMUNOGLOBULIN A 182 mg/dL (90-386); IMMUNOGLOBULIN G 744 mg/dL (700-1600); IMMUNOGLOBULIN M 41 mg/dL (20-172)
--- NOTE | 2018-12-04 16:23 | CARD ---
MR#: [id number] Date of Study: 12/04/2018 Ordering Physician: ECHO HENNESSY, Referring Physician: CAROLINA CARCAMO Tech: Joy Roche HOWARD APPROVED REPORT EXAM: Two-dimensional and M-mode echocardiogram with Doppler and color Doppler. Other Information Quality : Good INDICATION Sepsis, S/P Abdominal Hernia Repair 2D DIMENSIONS RVDd3.5 (2.9-3.5cm)Left Atrium(2D)4.4 (1.6-4.0cm) IVSd1.2 (0.7-1.1cm)Aortic Root(2D)2.6 (2.0-3.7cm) LVDd5.1 (3.9-5.9cm)LVOT Diameter2.0 (1.8-2.4cm) PWd1.3 (0.7-1.1cm)LVDs3.0 (2.5-4.0cm) FS (%) 40.3 %SV86.6 ml LVEF(%)60.0 (>50%) Aortic Valve AoV Peak Ulices.163.8cm/sAoV VTI30.8cm AO Peak GR.10.7mmHgLVOT Peak Ulices.143.7cm/s LVOT VTI 25.57cmAO Mean GR.6mmHg HEATHER (VMAX)2.31yf4CDY (VTI)2.66cm2 AI P 1/2 [id number] Mitral Valve MV E Qohzgydt12.2cm/sMV DECEL [id number] MV A Hxtihrij83.6cm/sMV [id number] E/A Ratio1.1MVA (PHT)4.04cm2 TDI E/Lateral E'12.3E/Medial E'16.0 Tricuspid Valve TR P. Rbonmvpf785xu/sRAP DRASAALQ4syZg TR Peak Gr.62qcXkHUNA50caXg Pulmonary Vein S1 Kddxawuw05.6cm/sD2 Uvtypuoh45.2cm/s LEFT VENTRICLE The left ventricle is normal size. There is mild concentric left ventricular hypertrophy. The left ve ntricular systolic function is normal and the ejection fraction is within normal range. The Ejection Fraction is 60-65%. There is normal LV segmental wall motion. The left ventricular diastolic function and filling is normal for age. RIGHT VENTRICLE The right ventricle is normal size. The right ventricular systolic function is normal. ATRIA The left atrium is mildly dilated. The right atrium size is normal. The interatrial septum is intact with no evidence for an atrial septal defect or patent foramen ovale as noted on 2-D or Doppler imagi ng. AORTIC VALVE The aortic valve is normal in structure and function. Doppler and Color Flow revealed no significant aortic regurgitation. There is no significant aortic valvular stenosis. MITRAL VALVE The mitral valve is normal in structure and function. There is no evidence of mitral valve prolapse. There is no mitral valve stenosis. Doppler and Color-flow revealed trace eccentric mitral regurgitati on. TRICUSPID VALVE The tricuspid valve is normal in structure and function. Doppler and Color Flow revealed trace tricus pid regurgitation. The PA pressure was estimated at 24 mmHg. There is no tricuspid valve stenosis. PULMONIC VALVE The pulmonary valve is normal in structure and function. Doppler and Color Flow revealed mild pulmoni c valvular regurgitation. There is no pulmonic valvular stenosis. GREAT VESSELS The aortic root is normal in size. The ascending aorta is normal in size. The IVC was not visualized due to surgical site dressing. PERICARDIAL EFFUSION There is no evidence of significant pericardial effusion. Critical Notification Critical Value: No <Conclusion> The left ventricle is normal size. The left ventricular systolic function is normal and the ejection fraction is within normal range. The Ejection Fraction is 60-65%. There is mild concentric left ventricular hypertrophy. There is no significant aortic valvular stenosis. Doppler and Color Flow revealed no significant aortic regurgitation. Doppler and Color-flow revealed trace eccentric mitral regurgitation. Doppler and Color Flow revealed trace tricuspid regurgitation. The PA pressure was estimated at 24 mmHg. Signed by : Bryce Hough MD Electronically Approved : 12/04/2018 16:23:25
--- NOTE | 2018-12-04 16:40 | PDOC ---
PROGRESS NOTES Chief Complaint Chief Complaint Sepsis POA. Procalcitonin 94.62. ? line infection -resolved GPC bacteremia (3 of 4 bottles) POA 11/29 with MSSA present sensitivities noted Leukocytosis - better Transaminitis ? sepsis - increasing Fever - curve improving PCN allergy - nausea. Has tolerated Zosyn without problem Constipation Acute diastolic CHF CKD on HD (s/p HDC 11/26; small neck wound w/ stitch in place) Malfunctioning peritoneal catheter status post repositioning and hernia repair on 12/02/2018 Anemia. s/p iron and PRBCs 2 units evaluated by hematology and added Aranesp to his regimen Diabetes insulin requiring Plan: patient will be dialyzed in the am will follow results of repeat blood cultures from today patient will have his line removed after dialysis in the am most likely continue broad spectrum antibiotics as per ID service consultant. History of Present Illness History of Present Illness Patient with no acute events reported overnight. Discussed plan of care, discussed the need of removing dialysis catheter but establishing first that his bacteremia is clearing before proceeding with an new catheter placement Vitals Vitals Vital Signs Date Time Temp Pulse Resp B/P (MAP) Pulse Ox O2 Delivery O2 Flow Rate FiO2 12/04/18 15:15 97.8 79 18 134/82 (99) 92 Room Air 97.8 12/04/18 07:15 2.0 Physical Exam Physical Exam GEN: Coop, NAD HEENT: Pupils are equally round, reactive. Normal conjunctivae. Oral cavity: Pharynx pink and moist. NECK: Supple. He has a small wound with a stitch in place on right-sided neck without surrounding redness or drainage. Scabbing LUNGS: Clear to auscultation. HEART: S1 and S2. ABDOMEN: Mild distension. Dressed. PD in place EXTREMITIES: No gross edema or cyanosis. SKIN: Warm without generalized rash. NEUROLOGIC: Alert and oriented x 3. LINES: Right-sided tunneled HD catheter (11/26) without signs of any complications. RUE PIV - improved swelling - no warmth/erythema. NT General: Alert, Oriented X3, Cooperative, No acute distress Heart: Regular rate Lungs: Clear Abdomen: Soft, Other (mild distention) Extremities: No clubbing, No cyanosis Skin: No breakdown Labs LABS Laboratory Tests Test 12/03/18 16:44 12/03/18 21:13 12/04/18 03:40 12/04/18 07:12 Glucose (Fingerstick) 155 mg/dL (70-99) 226 mg/dL (70-99) 95 mg/dL (70-99) White Blood Count 11.2 x10^3/uL (4.0-11.0) Red Blood Count 2.65 x10^6/uL (4.30-5.70) Hemoglobin 7.3 g/dL (13.0-17.5) Hematocrit 22.7 % (39.0-53.0) Mean Corpuscular Volume 86 fL (79-100) Mean Corpuscular Hemoglobin 28 pg (25-35) Mean Corpuscular Hemoglobin Concent 32 g/dL (31-37) Red Cell Distribution Width 18.4 % (11.5-14.5) Platelet Count 266 x10^3/uL (140-400) Neutrophils (%) (Auto) 78 % (31-73) Lymphocytes (%) (Auto) 8 % (24-48) Monocytes (%) (Auto) 10 % (0-9) Eosinophils (%) (Auto) 4 % (0-3) Basophils (%) (Auto) 0 % (0-3) Neutrophils # (Auto) 8.7 x10^3uL (1.8-7.7) Lymphocytes # (Auto) 0.9 x10^3/uL (1.0-4.8) Monocytes # (Auto) 1.1 x10^3/uL (0.0-1.1) Eosinophils # (Auto) 0.4 x10^3/uL (0.0-0.7) Basophils # (Auto) 0.0 x10^3/uL (0.0-0.2) Sodium Level 138 mmol/L (136-145) Potassium Level 4.4 mmol/L (3.5-5.1) Chloride Level 97 mmol/L (98-107) Carbon Dioxide Level 30 mmol/L (21-32) Anion Gap 11 (6-14) Blood Urea Nitrogen 26 mg/dL (8-26) Creatinine 9.4 mg/dL (0.7-1.3) Estimated GFR (Cockcroft-Gault) 7.7 BUN/Creatinine Ratio 3 (6-20) Glucose Level 170 mg/dL (70-99) Calcium Level 8.8 mg/dL (8.5-10.1) Total Bilirubin 0.4 mg/dL (0.2-1.0) Aspartate Amino Transf (AST/SGOT) 22 U/L (15-37) Alanine Aminotransferase (ALT/SGPT) 95 U/L (16-63) Alkaline Phosphatase 142 U/L (46-116) Total Protein 6.5 g/dL (6.4-8.2) Albumin 2.0 g/dL (3.4-5.0) Albumin/Globulin Ratio 0.4 (1.0-1.7) Test 12/04/18 11:48 Glucose (Fingerstick) 121 mg/dL (70-99) Assessment and Plan Assessmemt and Plan Problems Medical Problems: (1) Abnormal EKG Status: Acute (2) Elevated troponin Status: Acute (3) End stage renal disease Status: Acute (4) Fever Status: Acute Comment Review of Relevant I have reviewed the following items javy (where applicable) has been applied. Labs Laboratory Tests Test 12/02/18 17:00 12/02/18 20:39 12/03/18 03:20 12/03/18 11:22 Glucose (Fingerstick) 272 mg/dL (70-99) 224 mg/dL (70-99) 70 mg/dL (70-99) White Blood Count 11.5 x10^3/uL (4.0-11.0) Red Blood Count 2.95 x10^6/uL (4.30-5.70) Hemoglobin 8.2 g/dL (13.0-17.5) Hematocrit 25.4 % (39.0-53.0) Mean Corpuscular Volume 86 fL (79-100) Mean Corpuscular Hemoglobin 28 pg (25-35) Mean Corpuscular Hemoglobin Concent 32 g/dL (31-37) Red Cell Distribution Width 18.8 % (11.5-14.5) Platelet Count 291 x10^3/uL (140-400) Neutrophils (%) (Auto) 79 % (31-73) Lymphocytes (%) (Auto) 8 % (24-48) Monocytes (%) (Auto) 9 % (0-9) Eosinophils (%) (Auto) 4 % (0-3) Basophils (%) (Auto) 1 % (0-3) Neutrophils # (Auto) 9.0 x10^3uL (1.8-7.7) Lymphocytes # (Auto) 0.9 x10^3/uL (1.0-4.8) Monocytes # (Auto) 1.0 x10^3/uL (0.0-1.1) Eosinophils # (Auto) 0.4 x10^3/uL (0.0-0.7) Basophils # (Auto) 0.1 x10^3/uL (0.0-0.2) Sodium Level 138 mmol/L (136-145) Potassium Level 4.9 mmol/L (3.5-5.1) Chloride Level 99 mmol/L (98-107) Carbon Dioxide Level 29 mmol/L (21-32) Anion Gap 10 (6-14) Blood Urea Nitrogen 34 mg/dL (8-26) Creatinine 10.8 mg/dL (0.7-1.3) Estimated GFR (Cockcroft-Gault) 6.5 BUN/Creatinine Ratio 3 (6-20) Glucose Level 149 mg/dL (70-99) Calcium Level 8.7 mg/dL (8.5-10.1) Total Bilirubin 0.5 mg/dL (0.2-1.0) Aspartate Amino Transf (AST/SGOT) 43 U/L (15-37) Alanine Aminotransferase (ALT/SGPT) 143 U/L (16-63) Alkaline Phosphatase 157 U/L (46-116) Total Protein 6.6 g/dL (6.4-8.2) Albumin 2.1 g/dL (3.4-5.0) Albumin/Globulin Ratio 0.5 (1.0-1.7) Test 12/03/18 16:44 12/03/18 21:13 12/04/18 03:40 12/04/18 07:12 Glucose (Fingerstick) 155 mg/dL (70-99) 226 mg/dL (70-99) 95 mg/dL (70-99) White Blood Count 11.2 x10^3/uL (4.0-11.0) Red Blood Count 2.65 x10^6/uL (4.30-5.70) Hemoglobin 7.3 g/dL (13.0-17.5) Hematocrit 22.7 % (39.0-53.0) Mean Corpuscular Volume 86 fL (79-100) Mean Corpuscular Hemoglobin 28 pg (25-35) Mean Corpuscular Hemoglobin Concent 32 g/dL (31-37) Red Cell Distribution Width 18.4 % (11.5-14.5) Platelet Count 266 x10^3/uL (140-400) Neutrophils (%) (Auto) 78 % (31-73) Lymphocytes (%) (Auto) 8 % (24-48) Monocytes (%) (Auto) 10 % (0-9) Eosinophils (%) (Auto) 4 % (0-3) Basophils (%) (Auto) 0 % (0-3) Neutrophils # (Auto) 8.7 x10^3uL (1.8-7.7) Lymphocytes # (Auto) 0.9 x10^3/uL (1.0-4.8) Monocytes # (Auto) 1.1 x10^3/uL (0.0-1.1) Eosinophils # (Auto) 0.4 x10^3/uL (0.0-0.7) Basophils # (Auto) 0.0 x10^3/uL (0.0-0.2) Sodium Level 138 mmol/L (136-145) Potassium Level 4.4 mmol/L (3.5-5.1) Chloride Level 97 mmol/L (98-107) Carbon Dioxide Level 30 mmol/L (21-32) Anion Gap 11 (6-14) Blood Urea Nitrogen 26 mg/dL (8-26) Creatinine 9.4 mg/dL (0.7-1.3) Estimated GFR (Cockcroft-Gault) 7.7 BUN/Creatinine Ratio 3 (6-20) Glucose Level 170 mg/dL (70-99) Calcium Level 8.8 mg/dL (8.5-10.1) Total Bilirubin 0.4 mg/dL (0.2-1.0) Aspartate Amino Transf (AST/SGOT) 22 U/L (15-37) Alanine Aminotransferase (ALT/SGPT) 95 U/L (16-63) Alkaline Phosphatase 142 U/L (46-116) Total Protein 6.5 g/dL (6.4-8.2) Albumin 2.0 g/dL (3.4-5.0) Albumin/Globulin Ratio 0.4 (1.0-1.7) Test 12/04/18 11:48 Glucose (Fingerstick) 121 mg/dL (70-99) Laboratory Tests Test 12/03/18 16:44 12/03/18 21:13 12/04/18 03:40 12/04/18 07:12 Glucose (Fingerstick) 155 mg/dL (70-99) 226 mg/dL (70-99) 95 mg/dL (70-99) White Blood Count 11.2 x10^3/uL (4.0-11.0) Red Blood Count 2.65 x10^6/uL (4.30-5.70) Hemoglobin 7.3 g/dL (13.0-17.5) Hematocrit 22.7 % (39.0-53.0) Mean Corpuscular Volume 86 fL (79-100) Mean Corpuscular Hemoglobin 28 pg (25-35) Mean Corpuscular Hemoglobin Concent 32 g/dL (31-37) Red Cell Distribution Width 18.4 % (11.5-14.5) Platelet Count 266 x10^3/uL (140-400) Neutrophils (%) (Auto) 78 % (31-73) Lymphocytes (%) (Auto) 8 % (24-48) Monocytes (%) (Auto) 10 % (0-9) Eosinophils (%) (Auto) 4 % (0-3) Basophils (%) (Auto) 0 % (0-3) Neutrophils # (Auto) 8.7 x10^3uL (1.8-7.7) Lymphocytes # (Auto) 0.9 x10^3/uL (1.0-4.8) Monocytes # (Auto) 1.1 x10^3/uL (0.0-1.1) Eosinophils # (Auto) 0.4 x10^3/uL (0.0-0.7) Basophils # (Auto) 0.0 x10^3/uL (0.0-0.2) Sodium Level 138 mmol/L (136-145) Potassium Level 4.4 mmol/L (3.5-5.1) Chloride Level 97 mmol/L (98-107) Carbon Dioxide Level 30 mmol/L (21-32) Anion Gap 11 (6-14) Blood Urea Nitrogen 26 mg/dL (8-26) Creatinine 9.4 mg/dL (0.7-1.3) Estimated GFR (Cockcroft-Gault) 7.7 BUN/Creatinine Ratio 3 (6-20) Glucose Level 170 mg/dL (70-99) Calcium Level 8.8 mg/dL (8.5-10.1) Total Bilirubin 0.4 mg/dL (0.2-1.0) Aspartate Amino Transf (AST/SGOT) 22 U/L (15-37) Alanine Aminotransferase (ALT/SGPT) 95 U/L (16-63) Alkaline Phosphatase 142 U/L (46-116) Total Protein 6.5 g/dL (6.4-8.2) Albumin 2.0 g/dL (3.4-5.0) Albumin/Globulin Ratio 0.4 (1.0-1.7) Test 12/04/18 11:48 Glucose (Fingerstick) 121 mg/dL (70-99) Microbiology 11/29/18 Blood Culture - Preliminary, Resulted 11/29/18 Blood Culture Result 1 (NOLAN) - Preliminary, Resulted Medications Current Medications Vancomycin HCl (Vanco Per Pharmacy) 1 each 1X ONCE MC ; Start 11/29/18 at 18:15 ; Stop 11/29/18 at 18:16; Status Cancel Piperacillin Sod/ Tazobactam Sod 3.375 gm/Sodium Chloride 50 ml @ 100 mls/hr 1X ONCE IV Last administered on 11/29/18at 18:45; Start 11/29/18 at 18:15; Stop 11/29/18 at 18:44; Status DC Ondansetron HCl (Zofran) 4 mg 1X ONCE IV Last administered on 11/29/18at 18:43 ; Start 11/29/18 at 18:15; Stop 11/29/18 at 18:23; Status DC Vancomycin HCl 2 gm/Sodium Chloride 500 ml @ 250 mls/hr 1X ONCE IV Last administered on 11/29/18at 18:46; Start 11/29/18 at 19:00; Stop 11/29/18 at 20:59 ; Status DC Iron Sucrose 200 mg/Sodium Chloride 110 ml @ 55 mls/hr 1X ONCE IV Last administered on 11/29/18at 22:20; Start 11/29/18 at 19:15; Stop 11/29/18 at 21:14 ; Status DC Ondansetron HCl (Zofran) 4 mg PRN Q8HRS PRN IV NAUSEA/VOMITING; Start 11/29/18 at 19:30; Stop 11/29/18 at 19:36; Status DC Fentanyl Citrate (Fentanyl 2ml Vial) 50 mcg PRN Q1HR PRN IV PAIN Last administered on 11/30/18 16:23; Start 11/29/18 at 19:30; Stop 11/30/18 at 19:29 ; Status DC Acetaminophen (Tylenol) 650 mg PRN Q4HRS PRN PO FEVER Last administered on 11/30 17:35; Start 11/29/18 at 19:30; Stop 11/30/18 at 19:29; Status DC Ondansetron HCl (Zofran) 4 mg PRN Q6HRS PRN IV NAUSEA/VOMITING Last administered on 12/03/18 21:28; Start 11/29/18 at 19:45 Amlodipine Besylate (Norvasc) 10 mg DAILY PO Last administered on 12/04/18 08: 42; Start 11/30/18 at 09:00 Clonidine HCl (Catapres) 0.2 mg BID PO Last administered on 12/04/18 08:43; Start 11/29/18 at 21:00 Docusate Sodium (Colace) 100 mg BID PO Last administered on 12/04/18 08:41; Start 11/29/18 at 21:00 Furosemide (Lasix) 80 mg BID92 PO Last administered on 12/04/18 13:57; Start 11/29/18 at 20:00 Insulin Glargine (Lantus) 32 units HS SQ Last administered on 12/03/18 21:22; Start 11/29/18 at 21:00 Lisinopril (Prinivil) 40 mg BID PO Last administered on 12/04/18 08:43; Start 11/29/18 at 21:00 Sevelamer Carbonate (Renvela) 4,000 mg TIDWMEALS PO Last administered on 08:40; Start 11/30/18 at 08:00 Calcitriol (Rocaltrol) 0.25 mcg DAILY PO Last administered on 12/04/18 08:41; Start 11/30/18 at 09:00 Carvedilol (Coreg) 12.5 mg BIDWMEALS PO Last administered on 12/04/18 08:42; Start 11/30/18 at 08:00 Vitamin D (Vitamin D3) 5,000 unit DAILY PO Last administered on 12/04/18at 08:42 ; Start 11/30/18 at 09:00 Cinacalcet (Sensipar) 60 mg DAILY PO Last administered on 12/04/18 08:42; Start 11/30/18 at 09:00 Polyethylene Glycol (miraLAX PACKET) 17 gm DAILY PO Last administered on at 08:40; Start 11/30/18 at 09:00 Sennosides (Senna) 8.6 mg BID PO Last administered on 12/04/18 08:41; Start at 21:00 Simvastatin (Zocor) 20 mg HS PO Last administered on 12/03/18at 21:15; Start at 21:00 Vitamin B Complex/ Vitamin C (Johanna-Celia) 1 tab DAILY PO Last administered on 08:41; Start 11/30/18 at 09:00 Insulin Human Lispro (HumaLOG) 0-9 UNITS TIDWMEALS SQ Last administered on 11/29at 22:44; Start 11/30/18 at 08:00; Stop 11/30/18 at 10:28; Status DC Dextrose (Dextrose 50%-Water Syringe) 12.5 gm PRN Q15MIN PRN IV SEE COMMENTS; Start 11/29/18 at 19:45 Aspirin (Anshul Aspirin) 325 mg 1X ONCE PO Last administered on 11/29/18at 20:19 ; Start 11/29/18 at 19:45; Stop 11/29/18 at 19:46; Status DC Labetalol HCl (Normodyne Iv Push) 10 mg PRN Q2HR PRN IVP HYPERTENSION, SEE COMMENTS Last administered on 12/03/18at 04:25; Start 11/30/18 at 04:00 Sodium Chloride 1,000 ml @ 100 mls/hr 1X ONCE IV Last administered on at 04:17; Start 11/30/18 at 04:30; Stop 11/30/18 at 05:57; Status DC Darbepoetin David (Aranesp) 100 mcg 1X ONCE SQ Last administered on 11/30/18at 06:06; Start 11/30/18 at 07:00; Stop 11/30/18 at 07:01; Status DC Sodium Chloride 1,000 ml @ 1,000 mls/hr Q1H PRN IV hypotension; Start 11/30/18 at 07:34; Stop 11/30/18 at 13:39; Status DC Albumin Human 200 ml @ 200 mls/hr 1X PRN PRN IV Hypotension; Start 11/30/18 at 07:45; Stop 11/30/18 at 13:44; Status DC Diphenhydramine HCl (Benadryl) 25 mg 1X PRN PRN IV ITCHING; Start 11/30/18 at 07:45; Stop 12/01/18 at 07:44; Status DC Sodium Chloride 1,000 ml @ 400 mls/hr Q2H30M PRN IV PATENCY; Start 11/30/18 at 07:34; Stop 11/30/18 at 19:33; Status DC Info (PHARMACY MONITORING -- do not chart) 1 each PRN DAILY PRN MC SEE COMMENTS ; Start 11/30/18 at 07:45; Stop 12/03/18 at 15:49; Status DC Info (PHARMACY MONITORING -- do not chart) 1 each PRN DAILY PRN MC SEE COMMENTS ; Start 11/30/18 at 07:45; Status UNV Darbepoetin David (Aranesp) 60 mcg WEEKLYHS SQ ; Start 11/30/18 at 21:00; Stop at 21:00; Status DC Darbepoetin David (Aranesp) 60 mcg WEEKLYHS SQ ; Start 12/07/18 at 21:00 Insulin Human Lispro (HumaLOG) 0-9 UNITS TIDWMEALS SQ Last administered on 12/02at 17:06; Start 11/30/18 at 12:00 Dextrose (Dextrose 50%-Water Syringe) 12.5 gm PRN Q15MIN PRN IV SEE COMMENTS; Start 11/30/18 at 10:30; Status UNV Vancomycin HCl (Vanco Per Pharmacy) 1 each PRN DAILY PRN MC SEE COMMENTS Last administered on 12/03/18at 15:53; Start 11/30/18 at 12:15; Stop 12/04/18 at 08:03 ; Status DC Piperacillin Sod/ Tazobactam Sod (Zosyn Per Pharmacy) 1 each PRN DAILY PRN MC SEE COMMENTS; Start 11/30/18 at 12:15 Piperacillin Sod/ Tazobactam Sod 2.25 gm/Sodium Chloride 50 ml @ 100 mls/hr Q8HRS IV Last administered on 12/04/18at 13:57; Start 11/30/18 at 13:00 Calcium Carbonate/ Glycine (Tums) 500 mg PRN BID PRN PO INDIGESTION; Start at 13:30 Albuterol Sulfate (Ventolin Neb Soln) 2.5 mg PRN Q6HRS PRN NEB SHORTNESS OF BREATH; Start 11/30/18 at 13:45 Non-Formulary Medication (Epoetin David (Procrit)) 10,000 unit WEEKLY IJ ; Start 12/07/18 at 09:00; Stop 12/07/18 at 09:00; Status DC Fluticasone Propionate (Flonase) 2 spray DAILY NS Last administered on at 13:31; Start 11/30/18 at 14:00 Pantoprazole Sodium (Protonix) 40 mg DAILYAC PO Last administered on 12/04/18at 08:41; Start 11/30/18 at 14:00 Vancomycin HCl (Vancomycin Random Level) 1 each 1X ONCE MC Last administered on 11/30/18at 16:00; Start 11/30/18 at 16:00; Stop 11/30/18 at 16:01; Status DC Sodium Cl/Sod Bicarb/Potass Cl/ PEG (Golytely) 4,000 ml 1X ONCE PO Last administered on 11/30/18at 17:33; Start 11/30/18 at 18:00; Stop 11/30/18 at 18:01 ; Status DC Polyethylene Glycol (miraLAX PACKET) 17 gm PRN DAILY PRN PO CONSTIPATION; Start 11/30/18 at 17:00 Acetaminophen (Tylenol) 650 mg PRN Q4HRS PRN PO FEVER Last administered on 12/04at 13:57; Start 11/30/18 at 20:15 Vancomycin HCl 500 mg/Sodium Chloride 100 ml @ 100 mls/hr QMWF IV Last administered on 12/03/18at 16:53; Start 12/01/18 at 16:00; Stop 12/04/18 at 08:03 ; Status DC Sodium Chloride 1,000 ml @ 1,000 mls/hr Q1H PRN IV hypotension; Start 12/01/18 at 07:00; Stop 12/01/18 at 18:00; Status DC Sodium Chloride 1,000 ml @ 400 mls/hr Q2H30M PRN IV PATENCY; Start 12/01/18 at 07:00; Stop 12/01/18 at 18:59; Status DC Info (PHARMACY MONITORING -- do not chart) 1 each PRN DAILY PRN MC SEE COMMENTS ; Start 12/01/18 at 10:30; Status UNV Info (PHARMACY MONITORING -- do not chart) 1 each PRN DAILY PRN MC SEE COMMENTS ; Start 12/01/18 at 10:30; Status UNV Heparin Sodium (Porcine) 5000 unit/Sodium Chloride 505 ml @ 505 mls/hr 1X ONCE IRR Last administered on 12/02/18at 11:05; Start 12/02/18 at 07:00; Stop at 07:59; Status DC Bupivacaine HCl/ Epinephrine Bitart (Sensorcain-Mpf Epi 0.5%-[id number]) 30 ml STK -MED ONCE .ROUTE Last administered on 12/02/18at 11:05; Start 12/02/18 at 07:36 ; Stop 12/02/18 at 07:37; Status DC Fentanyl Citrate (Fentanyl 2ml Vial) 100 mcg STK-MED ONCE .ROUTE ; Start at 09:05; Stop 12/02/18 at 09:06; Status DC Rocuronium [place] (Zemuron) 50 mg STK-MED ONCE .ROUTE ; Start 12/02/18 at 09:05 ; Stop 12/02/18 at 09:06; Status DC Lidocaine HCl (Lidocaine Pf 2% Vial) 5 ml STK-MED ONCE .ROUTE ; Start 12/02/18 at 09:05; Stop 12/02/18 at 09:06; Status DC Propofol 20 ml @ As Directed STK-MED ONCE IV ; Start 12/02/18 at 09:06; Stop at 09:07; Status DC Dexamethasone Sodium Phosphate (Decadron) 20 mg STK-MED ONCE .ROUTE ; Start at 09:06; Stop 12/02/18 at 09:07; Status DC Ondansetron HCl (Zofran) 4 mg STK-MED ONCE .ROUTE ; Start 12/02/18 at 09:06; Stop 12/02/18 at 09:07; Status DC Insulin Human Lispro (HumaLOG) 10 units 1X ONCE SQ ; Start 12/02/18 at 09:45; Stop 12/02/18 at 09:46; Status DC Levofloxacin/ Dextrose 100 ml @ As Directed STK-MED ONCE IV ; Start 12/02/18 at 10:46; Stop 12/02/18 at 10:47; Status DC Metoclopramide HCl (Reglan Vial) 10 mg STK-MED ONCE .ROUTE ; Start 12/02/18 at 10:59; Stop 12/02/18 at 11:00; Status DC Neostigmine Methylsulfate (Bloxiverz) 10 mg STK-MED ONCE .ROUTE ; Start at 12:25; Stop 12/02/18 at 12:26; Status DC Glycopyrrolate (Robinul) 1 mg STK-MED ONCE .ROUTE ; Start 12/02/18 at 12:25; Stop 12/02/18 at 12:26; Status DC Sevoflurane (Ultane) 90 ml STK-MED ONCE IH ; Start 12/02/18 at 12:27; Stop 12/02 at 12:28; Status DC Ondansetron HCl (Zofran) 4 mg PRN Q6HRS PRN IV NAUSEA/VOMITING; Start 12/02/18 at 13:00; Stop 12/03/18 at 12:59; Status DC Fentanyl Citrate (Fentanyl 2ml Vial) 25 mcg PRN Q5MIN PRN IV MILD PAIN; Start 12/02/18 at 13:00; Stop 12/02/18 at 20:24; Status DC Fentanyl Citrate (Fentanyl 2ml Vial) 50 mcg PRN Q5MIN PRN IV MODERATE TO SEVERE PAIN Last administered on 12/02/18at 13:46; Start 12/02/18 at 13:00; Stop 12/02/18 at 20:24; Status DC Morphine Sulfate (Morphine Sulfate) 1 mg PRN Q10MIN PRN IV SEVERE PAIN; Start 12/02/18 at 13:00; Stop 12/02/18 at 20:24; Status DC Ringer's Solution 1,000 ml @ 30 mls/hr Q24H IV ; Start 12/02/18 at 12:51; Stop 12/03/18 at 00:50; Status DC Lidocaine HCl (Xylocaine-Mpf 1% 2ml Vial) 2 ml 1X PRN PRN ID IV START; Start at 13:00; Stop 12/03/18 at 12:59; Status DC Hydromorphone HCl (Dilaudid) 0.5 mg PRN Q10MIN PRN IV SEV PAIN, Second choice Last administered on 12/02/18at 16:52; Start 12/02/18 at 13:00; Stop 12/03/18 at 12:59; Status DC Prochlorperazine Edisylate (Compazine) 5 mg PACU PRN PRN IV NAUSEA, MRX1; Start 12/02/18 at 13:00; Stop 12/03/18 at 12:59; Status DC Sodium Chloride 1,000 ml @ 100 mls/hr Q10H IV Last administered on 12/02/18at 13:04; Start 12/02/18 at 10:45; Stop 12/03/18 at 10:14; Status DC Hydromorphone HCl (Dilaudid) 1 mg PRN Q4HRS PRN IV pain Last administered on at 18:31; Start 12/02/18 at 13:15; Stop 12/02/18 at 20:24; Status DC Oxycodone/ Acetaminophen (Percocet 5/325) 1 tab PRN Q4HRS PRN PO PAIN Last administered on 12/03/18at 21:15; Start 12/02/18 at 13:15 Levofloxacin/ Dextrose 100 ml @ 100 mls/hr 1X ONCE IV ; Start 12/02/18 at 10: 45; Stop 12/02/18 at 13:23; Status DC Lactobacillus Rhamnosus (Culturelle) 1 cap BID PO Last administered on at 08:42; Start 12/02/18 at 21:00 Hydromorphone HCl (Dilaudid) 1 mg PRN Q3HRS PRN IV SEVERE PAIN Last administered on 12/03/18at 21:16; Start 12/02/18 at 20:30 Levofloxacin/ Dextrose (LEVAQUIN 500mg PREMIX) 500 mg STK-MED ONCE IV ; Start at 11:00; Stop 12/03/18 at 08:41; Status DC Sodium Chloride 1,000 ml @ 1,000 mls/hr Q1H PRN IV hypotension; Start 12/03/18 at 07:00; Stop 12/03/18 at 12:59; Status DC Sodium Chloride 1,000 ml @ 400 mls/hr Q2H30M PRN IV PATENCY; Start 12/03/18 at 07:00; Stop 12/03/18 at 18:59; Status DC Info (PHARMACY MONITORING -- do not chart) 1 each PRN DAILY PRN MC SEE COMMENTS ; Start 12/03/18 at 08:45; Status UNV Info (PHARMACY MONITORING -- do not chart) 1 each PRN DAILY PRN MC SEE COMMENTS ; Start 12/03/18 at 08:45 Active Scripts Active Reported Protonix (Pantoprazole Sodium) 20 Mg Tablet.dr 2 Tab PO DAILY Flonase Allergy Relief (Fluticasone Propionate) 9.9 Ml [place].susp 2 Sprays NS DAILY Procrit (Epoetin David) 10,000 Unit/1 Ml Vial 10,000 Unit IJ WEEKLY Tums (Calcium Carbonate) 200 Mg Tab.chew 200 Mg PO BID PRN Proair Respiclick (Albuterol Sulfate) 90 Mcg Aer.pow.ba 1-2 Puff IH PRN Q6HRS PRN Senna (Sennosides) 8.6 Mg Tablet 8.6 Mg PO BID Miralax (Polyethylene Glycol 3350) 17 Gm Powd.pack 1 Packet PO DAILY Colace (Docusate Sodium) 100 Mg Capsule 1 Cap PO BID Carvedilol 25 Mg Tablet 25 Mg PO BIDWMEALS Renvela (Sevelamer Carbonate) 800 Mg Tablet 5 Tab PO TIDWMEALS Furosemide 80 Mg Tablet 1 Tab PO BID Vitamin D (Cholecalciferol (Vitamin D3)) 5,000 Unit Tablet 5,000 Unit PO DAILY Calcitriol 0.25 Mcg Capsule 2 Cap PO DAILY Clonidine Hcl 0.2 Mg Tablet 1 Tab PO BID Johanna-Celia Rx Tablet (Vit B Cmplx 3/Fa/Vit C/Biotin) 1 Each Tablet 1 Each PO DAILY Sensipar (Cinacalcet Hcl) 60 Mg Tablet 60 Mg PO DAILY Amlodipine Besylate 10 Mg Tablet 10 Mg PO DAILY Simvastatin 20 Mg Tablet 20 Mg PO HS Lisinopril 40 Mg Tablet 1 Tab PO BID Novolog (Insulin Aspart) 100 Unit/1 Ml Vial 100 Unit SQ sliding scale Lantus Solostar (Insulin Glargine,Hum.rec.anlog) 100 Unit/1 Ml Insuln.pen 15 Unit SQ HS Vitals/I & O Vital Sign - Last 24 Hours 12/03/18 12/03/18 12/03/18 12/03/18 16:54 19:00 20:00 21:14 Temp 98.5 98.5 Pulse 99 97 97 Resp 16 B/P (MAP) 149/87 133/62 (85) 133/62 Pulse Ox 96 O2 Delivery Nasal Cannula Nasal Cannula O2 Flow Rate 2.0 2.0 12/03/18 12/03/18 12/03/18 12/03/18 21:15 21:15 21:16 21:46 Pulse 97 B/P (MAP) 133/62 Pulse Ox 96 96 92 O2 Delivery Nasal Cannula Nasal Cannula Room Air O2 Flow Rate 2.0 12/03/18 12/03/18 12/04/18 12/04/18 22:15 23:00 03:00 07:15 Temp 98.7 98.7 99.5 98.7 98.7 99.5 Pulse 86 82 87 Resp 16 B/P (MAP) 131/62 (85) 125/70 (88) 141/85 (103) Pulse Ox 92 96 95 98 O2 Delivery Room Air Room Air Nasal Cannula Nasal Cannula O2 Flow Rate 2.0 2.0 2.0 12/04/18 12/04/18 12/04/18 12/04/18 07:30 08:42 08:42 08:43 Pulse 87 87 87 B/P (MAP) 141/85 141/85 141/85 O2 Delivery Room Air 12/04/18 12/04/18 12/04/18 08:43 11:25 15:15 Temp 98.5 97.8 98.5 97.8 Pulse 87 85 79 Resp 18 18 B/P (MAP) 141/85 124/77 (93) 134/82 (99) Pulse Ox 92 92 O2 Delivery Room Air Room Air Intake and Output 12/03/18 12/03/18 12/04/18 15:00 23:00 07:00 Intake Total 530 ml 400 ml Balance 530 ml 400 ml ACOSTA OSPINA MD Dec 04, 2018 16:40
[2018-12-04] MEDS: ONDANSETRON PF 4 MG/2 ML VIAL. IV PRN (17:52)
[2018-12-04 19:43] VITALS: BP 139/90
[2018-12-04] MEDS: SIMVASTATIN 20 MG TABLET PO SCH (22:49)
[2018-12-04 23:00] VITALS: BP 165/72
[2018-12-04] MEDS: INSULIN GLARGINE 300 UNITS/3 ML INSULN.PEN. SQ SCH (23:19)
[2018-12-05 03:28] VITALS: BP 131/81
[2018-12-05 04:30] LABS: BASO # 0.1 x10^3/uL (0.0-0.2); BASO % 1 % (0-3); EOS # 0.7 x10^3/uL (0.0-0.7); EOS % 5 % (0-3); HEMOGLOBIN 7.1 g/dL (13.0-17.5); LYMPH % 8 % (24-48); MEAN CORPUSCULAR HEMOGLOBIN 27 pg (25-35); MEAN CORPUSCULAR HGB CONC 32 g/dL (31-37); MEAN CORPUSCULAR VOLUME 85 fL (79-100); MONO % 8 % (0-9); NEUT % 78 % (31-73); PLATELET COUNT 280 x10^3/uL (140-400); RED CELL DISTRIBUTION WIDTH 17.6 % (11.5-14.5); WHITE BLOOD COUNT 12.8 x10^3/uL (4.0-11.0)
[2018-12-05 04:37] LABS: ALBUMIN 1.8 g/dL (3.4-5.0); ALBUMIN/GLOBULIN RATIO 0.4 (1.0-1.7); CALCIUM 8.3 mg/dL (8.5-10.1); CREATININE 11.8 mg/dL (0.7-1.3); GFR 5.9; POTASSIUM 4.2 mmol/L (3.5-5.1); TOTAL BILIRUBIN 0.3 mg/dL (0.2-1.0); TOTAL PROTEIN 6.3 g/dL (6.4-8.2)
[2018-12-05] MEDS: PIPERACILLIN/TAZOBACTAM 2.25 GM in IV NORMAL SALINE 50ML 50 ML IV SCH (06:00)
[2018-12-05] MEDS ORDERED: IV NORMAL SALINE 1000ML BAG 1,000 ML IV PRN ×2 (07:00)
[2018-12-05] MEDS: PANTOPRAZOLE 40 MG TABLET.DR. PO SCH (07:30)
--- NOTE | 2018-12-05 07:43 | PDOC ---
Infectious Disease Note Subjective Subjective Less pain overall but coughed last pm and felt pain in Right testicle that has improved No F/C/S/N/V/SOA/Rash or pain. Cough better Vital Sign Vital Signs Vital Signs Date Time Temp Pulse Resp B/P (MAP) Pulse Ox O2 Delivery O2 Flow Rate FiO2 12/05/18 03:28 98.3 79 22 131/81 (98) 98 Nasal Cannula 2.0 98.3 Physical Exam PHYSICAL EXAM GEN: Coop, NAD HEENT: Pupils are equally round, reactive. Normal conjunctivae. Oral cavity: Pharynx pink and moist. NECK: Supple. He has a small wound with a stitch in place on right-sided neck without surrounding redness or drainage. Scabbing LUNGS: Clear to auscultation. HEART: S1 and S2. ABDOMEN: Mild distension. Dressed. PD in place -clean ; no Scrotal bulge EXTREMITIES: No gross edema or cyanosis. SKIN: Warm without generalized rash. NEUROLOGIC: Alert and oriented x 3. LINES: Right-sided tunneled HD catheter (11/26) without signs of any complications. RUE PIV - improved swelling - no warmth/erythema. NT Labs Lab Laboratory Tests Test 12/04/18 11:48 12/04/18 17:14 12/04/18 23:14 12/05/18 03:00 Glucose (Fingerstick) 121 mg/dL (70-99) 121 mg/dL (70-99) 338 mg/dL (70-99) White Blood Count 12.8 x10^3/uL (4.0-11.0) Red Blood Count 2.60 x10^6/uL (4.30-5.70) Hemoglobin 7.1 g/dL (13.0-17.5) Hematocrit 22.0 % (39.0-53.0) Mean Corpuscular Volume 85 fL (79-100) Mean Corpuscular Hemoglobin 27 pg (25-35) Mean Corpuscular Hemoglobin Concent 32 g/dL (31-37) Red Cell Distribution Width 17.6 % (11.5-14.5) Platelet Count 280 x10^3/uL (140-400) Neutrophils (%) (Auto) 78 % (31-73) Lymphocytes (%) (Auto) 8 % (24-48) Monocytes (%) (Auto) 8 % (0-9) Eosinophils (%) (Auto) 5 % (0-3) Basophils (%) (Auto) 1 % (0-3) Neutrophils # (Auto) 10.0 x10^3uL (1.8-7.7) Lymphocytes # (Auto) 1.0 x10^3/uL (1.0-4.8) Monocytes # (Auto) 1.0 x10^3/uL (0.0-1.1) Eosinophils # (Auto) 0.7 x10^3/uL (0.0-0.7) Basophils # (Auto) 0.1 x10^3/uL (0.0-0.2) Sodium Level 136 mmol/L (136-145) Potassium Level 4.2 mmol/L (3.5-5.1) Chloride Level 96 mmol/L (98-107) Carbon Dioxide Level 30 mmol/L (21-32) Anion Gap 10 (6-14) Blood Urea Nitrogen 35 mg/dL (8-26) Creatinine 11.8 mg/dL (0.7-1.3) Estimated GFR (Cockcroft-Gault) 5.9 BUN/Creatinine Ratio 3 (6-20) Glucose Level 219 mg/dL (70-99) Calcium Level 8.3 mg/dL (8.5-10.1) Total Bilirubin 0.3 mg/dL (0.2-1.0) Aspartate Amino Transf (AST/SGOT) 10 U/L (15-37) Alanine Aminotransferase (ALT/SGPT) 68 U/L (16-63) Alkaline Phosphatase 132 U/L (46-116) Total Protein 6.3 g/dL (6.4-8.2) Albumin 1.8 g/dL (3.4-5.0) Albumin/Globulin Ratio 0.4 (1.0-1.7) Micro ECHO The left ventricle is normal size. The left ventricular systolic function is normal and the ejection fraction is within normal range. The Ejection Fraction is 60-65%. There is mild concentric left ventricular hypertrophy. There is no significant aortic valvular stenosis. Doppler and Color Flow revealed no significant aortic regurgitation. Doppler and Color-flow revealed trace eccentric mitral regurgitation. Doppler and Color Flow revealed trace tricuspid regurgitation. The PA pressure was estimated at 24 mmHg. Blood cult 11/29 BLOOD CULTURE LC Final Final report BLD CULT RESULT 1 Final Staphylococcus aureus Most isolates of Staphylococcus sp. produce a beta- lactamase enzyme rendering them resistant to penicillin. Please contact the laboratory if penicillin is being considered for therapy. CLINDAMYCIN =S ERYTHROMYCIN =S ANTIMICROBIAL SUSCEPTIBILITY Final Comment S = Susceptible; I = Intermediate; R = Resistant P = Positive; N = Negative MICS are expressed in micrograms per mL Antibiotic RSLT#1 RSLT#2 RSLT#3 RSLT#4 Ciprofloxacin S<=0.5 Gentamicin S<=0.5 Levofloxacin S<=0.12 Linezolid S =2 Moxifloxacin S<=0.25 Nitrofurantoin S<=16 Oxacillin S<=0.25 Quinupristin/Dalfopristin S<=0.25 Rifampin S<=0.5 Tetracycline S<=1 Trimethoprim/Sulfa S<=10 Vancomycin S<=0. Microbiology 11/29/18 Blood Culture - Preliminary, Resulted NO GROWTH AFTER 1 DAY Objective Assessment Sepsis POA. MSSA ? line infection - clinically better (3 of 4 bottles) POA 11/29 -staph species Leukocytosis - up but post procedure 12/02 and steroids Transaminitis ? sepsis - improving Fever - better PCN allergy - nausea. Has tolerated Zosyn without problem Constipation Acute diastolic CHF CKD on HD (s/p HDC 11/26; small neck wound w/ stitch in place) Malfunctioning peritoneal catheter -s/p repositioning 12/02 Anemia. s/p iron and PRBCs Diabetes Plan Plan of Care Repeat Blood cults - 12/04 pending Will need HD cath removed Will need temp HD cath placed 12/08 D/c Zosyn (11/29). Begin cefazolin D/w Dr. Rodriguez 12/04 D/w nursing ECHO HENNESSY MD Dec 05, 2018 07:43
--- NOTE | 2018-12-05 07:53 | PDOC ---
SUBJECTIVE Subjective S: in HD, had PD cath revision O: Physical exam: Gen.: Well-nourished and well-developed, resting in bed Lungs: Breathing comfortably with no evidence of respiratory distress Labs: White count 12.8, hemoglobin 7.1, platelets 280, Ig's not elev, neg SHA testos 156 Assessment and Plan: He is a 38-year-old man with anemia, admission for infection with S Aureus noted in blood cultures on 11/29, on antibiotics, status post 2 unit transfusion on Aranesp and has received some IV Iron while here. Kidney failure: Dialysis per nephro Peritoneal dialysis catheter: repaired but not ready for use yet Anemia: improvement post 2 unit transfusion, on Aranesp 60 g weekly and has had 200 mg of IV iron sucrose 1, he did have an iron sat of 12% and ferritin of 574 on 15 October 2018 [facility] labs, IV iron can be continued per nephro as needed , for now he'll continue the Aranesp, does not want oral iron due to constipation, checking other labs on anemia differential as well, formal SPEP pending (though SIFE w/ Ig's neg) hypogonadism: low testos, defer to primary S Aureus bacteremia: On broad-spectrum antibiotics, ID is involved Diabetes: Per primary Thank you kindly, and please do not hesitate to call with further questions. OBJECTIVE Vital Signs Vital Signs Date Time Temp Pulse Resp B/P (MAP) Pulse Ox O2 Delivery O2 Flow Rate FiO2 12/05/18 03:28 98.3 79 22 131/81 (98) 98 Nasal Cannula 2.0 98.3 12/04/18 23:00 98.7 85 22 165/72 (103) 97 Room Air 98.7 12/04/18 22:51 82 139/90 12/04/18 22:50 82 139/90 12/04/18 20:00 Room Air 12/04/18 19:43 97.9 82 18 139/90 (106) 94 Room Air 97.9 12/04/18 17:49 79 134/82 12/04/18 15:15 97.8 79 18 134/82 (99) 92 Room Air 97.8 12/04/18 11:25 98.5 85 18 124/77 (93) 92 Room Air 98.5 12/04/18 08:43 87 141/85 12/04/18 08:43 87 141/85 12/04/18 08:42 87 141/85 12/04/18 08:42 87 141 I & O Intake and Output 12/05/18 06:59 Intake Total 2070 ml Balance 2070 ml Intake Oral 2070 ml COMMENT Lab Laboratory Tests Test 12/04/18 11:48 12/04/18 17:14 12/04/18 23:14 12/05/18 03:00 Glucose (Fingerstick) 121 mg/dL (70-99) 121 mg/dL (70-99) 338 mg/dL (70-99) White Blood Count 12.8 x10^3/uL (4.0-11.0) Red Blood Count 2.60 x10^6/uL (4.30-5.70) Hemoglobin 7.1 g/dL (13.0-17.5) Hematocrit 22.0 % (39.0-53.0) Mean Corpuscular Volume 85 fL (79-100) Mean Corpuscular Hemoglobin 27 pg (25-35) Mean Corpuscular Hemoglobin Concent 32 g/dL (31-37) Red Cell Distribution Width 17.6 % (11.5-14.5) Platelet Count 280 x10^3/uL (140-400) Neutrophils (%) (Auto) 78 % (31-73) Lymphocytes (%) (Auto) 8 % (24-48) Monocytes (%) (Auto) 8 % (0-9) Eosinophils (%) (Auto) 5 % (0-3) Basophils (%) (Auto) 1 % (0-3) Neutrophils # (Auto) 10.0 x10^3uL (1.8-7.7) Lymphocytes # (Auto) 1.0 x10^3/uL (1.0-4.8) Monocytes # (Auto) 1.0 x10^3/uL (0.0-1.1) Eosinophils # (Auto) 0.7 x10^3/uL (0.0-0.7) Basophils # (Auto) 0.1 x10^3/uL (0.0-0.2) Sodium Level 136 mmol/L (136-145) Potassium Level 4.2 mmol/L (3.5-5.1) Chloride Level 96 mmol/L (98-107) Carbon Dioxide Level 30 mmol/L (21-32) Anion Gap 10 (6-14) Blood Urea Nitrogen 35 mg/dL (8-26) Creatinine 11.8 mg/dL (0.7-1.3) Estimated GFR (Cockcroft-Gault) 5.9 BUN/Creatinine Ratio 3 (6-20) Glucose Level 219 mg/dL (70-99) Calcium Level 8.3 mg/dL (8.5-10.1) Total Bilirubin 0.3 mg/dL (0.2-1.0) Aspartate Amino Transf (AST/SGOT) 10 U/L (15-37) Alanine Aminotransferase (ALT/SGPT) 68 U/L (16-63) Alkaline Phosphatase 132 U/L (46-116) Total Protein 6.3 g/dL (6.4-8.2) Albumin 1.8 g/dL (3.4-5.0) Albumin/Globulin Ratio 0.4 (1.0-1.7) CAROL BLAND MD Dec 05, 2018 07:53
[2018-12-05] MEDS: CARVEDILOL 12.5 MG TABLET. PO SCH ×2 (08:00→18:05)
[2018-12-05] MEDS: INSULIN LISPRO 300 UNITS/3 ML INSULN.PEN. SQ SCH ×3 (08:00→17:00)
[2018-12-05] MEDS: SEVELAMER CARBONATE 800 MG TABLET. PO SCH ×3 (08:00→18:05)
[2018-12-05] MEDS ORDERED: DIALYSIS PATIENT. MC PRN ×2 (08:15)
[2018-12-05] MEDS: FLUTICASONE 50MCG/NASAL SPRAY 16GM BOTTLE. NS SCH (08:34)
[2018-12-05] MEDS: cloNIDine HCL 0.2 MG TABLET PO SCH ×2 (08:35→20:58)
[2018-12-05] MEDS: DOCUSATE SODIUM 100 MG CAPSULE. PO SCH ×2 (08:36→20:57)
[2018-12-05] MEDS: LISINOPRIL 20 MG TABLET PO SCH ×2 (08:37→20:58)
[2018-12-05] MEDS: LACTOBACILLUS RHAMNOSUS GG 1 CAPSULE. PO SCH ×2 (08:37→20:57)
[2018-12-05] MEDS: FUROSEMIDE 80 MG TABLET. PO SCH ×2 (08:37→14:18)
[2018-12-05] MEDS: amLODIPine BESYLATE 10 MG TABLET PO SCH (08:37)
[2018-12-05] MEDS: POLYETHYLENE GLYCOL 3350 17 GM PACKET. PO SCH (08:37)
[2018-12-05] MEDS: CALCITRIOL 0.25 MCG CAPSULE. PO SCH (08:38)
[2018-12-05] MEDS: CINACALCET HCL 30 MG TABLET PO SCH (08:38)
[2018-12-05] MEDS: FOLIC/VIT B COMP W-C (RENAL) TABLET. PO SCH (08:38)
[2018-12-05] MEDS: SENNOSIDES 8.6 MG TABLET PO SCH ×2 (08:38→21:03)
[2018-12-05] MEDS: CHOLECALCIFEROL (VITAMIN D3) 5,000 UNIT CAPSULE PO SCH (08:39)
--- NOTE | 2018-12-05 10:39 | PDOC ---
MASON NEVAREZ ANNUAL CAMPAIGN MANAGER 12/05/18 1039: SURGICAL PROGRESS NOTE Subjective sick of clears no emesis no flatus yet Vital Signs Vital Signs Date Time Temp Pulse Resp B/P (MAP) Pulse Ox O2 Delivery O2 Flow Rate FiO2 12/05/18 08:00 79 131/81 12/05/18 07:30 Nasal Cannula 2.0 12/05/18 03:28 98.3 22 98 98.3 I&O Intake and Output 12/05/18 06:59 Intake Total 2070 ml Balance 2070 ml Intake Oral 2070 ml General: Alert, Oriented X3, Cooperative, No acute distress Abdomen: Soft, Other (incisional pain) Labs Laboratory Tests Test 12/03/18 11:22 12/03/18 16:44 12/03/18 21:13 12/04/18 03:40 Glucose (Fingerstick) 70 mg/dL (70-99) 155 mg/dL (70-99) 226 mg/dL (70-99) White Blood Count 11.2 x10^3/uL (4.0-11.0) Red Blood Count 2.65 x10^6/uL (4.30-5.70) Hemoglobin 7.3 g/dL (13.0-17.5) Hematocrit 22.7 % (39.0-53.0) Mean Corpuscular Volume 86 fL (79-100) Mean Corpuscular Hemoglobin 28 pg (25-35) Mean Corpuscular Hemoglobin Concent 32 g/dL (31-37) Red Cell Distribution Width 18.4 % (11.5-14.5) Platelet Count 266 x10^3/uL (140-400) Neutrophils (%) (Auto) 78 % (31-73) Lymphocytes (%) (Auto) 8 % (24-48) Monocytes (%) (Auto) 10 % (0-9) Eosinophils (%) (Auto) 4 % (0-3) Basophils (%) (Auto) 0 % (0-3) Neutrophils # (Auto) 8.7 x10^3uL (1.8-7.7) Lymphocytes # (Auto) 0.9 x10^3/uL (1.0-4.8) Monocytes # (Auto) 1.1 x10^3/uL (0.0-1.1) Eosinophils # (Auto) 0.4 x10^3/uL (0.0-0.7) Basophils # (Auto) 0.0 x10^3/uL (0.0-0.2) Sodium Level 138 mmol/L (136-145) Potassium Level 4.4 mmol/L (3.5-5.1) Chloride Level 97 mmol/L (98-107) Carbon Dioxide Level 30 mmol/L (21-32) Anion Gap 11 (6-14) Blood Urea Nitrogen 26 mg/dL (8-26) Creatinine 9.4 mg/dL (0.7-1.3) Estimated GFR (Cockcroft-Gault) 7.7 BUN/Creatinine Ratio 3 (6-20) Glucose Level 170 mg/dL (70-99) Calcium Level 8.8 mg/dL (8.5-10.1) Total Bilirubin 0.4 mg/dL (0.2-1.0) Aspartate Amino Transf (AST/SGOT) 22 U/L (15-37) Alanine Aminotransferase (ALT/SGPT) 95 U/L (16-63) Alkaline Phosphatase 142 U/L (46-116) Total Protein 6.5 g/dL (6.4-8.2) Albumin 2.0 g/dL (3.4-5.0) Albumin/Globulin Ratio 0.4 (1.0-1.7) Test 12/04/18 07:12 12/04/18 11:48 12/04/18 17:14 12/04/18 23:14 Glucose (Fingerstick) 95 mg/dL (70-99) 121 mg/dL (70-99) 121 mg/dL (70-99) 338 mg/dL (70-99) Test 12/05/18 03:00 12/05/18 09:02 White Blood Count 12.8 x10^3/uL (4.0-11.0) Red Blood Count 2.60 x10^6/uL (4.30-5.70) Hemoglobin 7.1 g/dL (13.0-17.5) Hematocrit 22.0 % (39.0-53.0) Mean Corpuscular Volume 85 fL (79-100) Mean Corpuscular Hemoglobin 27 pg (25-35) Mean Corpuscular Hemoglobin Concent 32 g/dL (31-37) Red Cell Distribution Width 17.6 % (11.5-14.5) Platelet Count 280 x10^3/uL (140-400) Neutrophils (%) (Auto) 78 % (31-73) Lymphocytes (%) (Auto) 8 % (24-48) Monocytes (%) (Auto) 8 % (0-9) Eosinophils (%) (Auto) 5 % (0-3) Basophils (%) (Auto) 1 % (0-3) Neutrophils # (Auto) 10.0 x10^3uL (1.8-7.7) Lymphocytes # (Auto) 1.0 x10^3/uL (1.0-4.8) Monocytes # (Auto) 1.0 x10^3/uL (0.0-1.1) Eosinophils # (Auto) 0.7 x10^3/uL (0.0-0.7) Basophils # (Auto) 0.1 x10^3/uL (0.0-0.2) Sodium Level 136 mmol/L (136-145) Potassium Level 4.2 mmol/L (3.5-5.1) Chloride Level 96 mmol/L (98-107) Carbon Dioxide Level 30 mmol/L (21-32) Anion Gap 10 (6-14) Blood Urea Nitrogen 35 mg/dL (8-26) Creatinine 11.8 mg/dL (0.7-1.3) Estimated GFR (Cockcroft-Gault) 5.9 BUN/Creatinine Ratio 3 (6-20) Glucose Level 219 mg/dL (70-99) Calcium Level 8.3 mg/dL (8.5-10.1) Total Bilirubin 0.3 mg/dL (0.2-1.0) Aspartate Amino Transf (AST/SGOT) 10 U/L (15-37) Alanine Aminotransferase (ALT/SGPT) 68 U/L (16-63) Alkaline Phosphatase 132 U/L (46-116) Total Protein 6.3 g/dL (6.4-8.2) Albumin 1.8 g/dL (3.4-5.0) Albumin/Globulin Ratio 0.4 (1.0-1.7) Glucose (Fingerstick) 78 mg/dL (70-99) Laboratory Tests Test 12/04/18 11:48 12/04/18 17:14 12/04/18 23:14 12/05/18 03:00 Glucose (Fingerstick) 121 mg/dL (70-99) 121 mg/dL (70-99) 338 mg/dL (70-99) White Blood Count 12.8 x10^3/uL (4.0-11.0) Red Blood Count 2.60 x10^6/uL (4.30-5.70) Hemoglobin 7.1 g/dL (13.0-17.5) Hematocrit 22.0 % (39.0-53.0) Mean Corpuscular Volume 85 fL (79-100) Mean Corpuscular Hemoglobin 27 pg (25-35) Mean Corpuscular Hemoglobin Concent 32 g/dL (31-37) Red Cell Distribution Width 17.6 % (11.5-14.5) Platelet Count 280 x10^3/uL (140-400) Neutrophils (%) (Auto) 78 % (31-73) Lymphocytes (%) (Auto) 8 % (24-48) Monocytes (%) (Auto) 8 % (0-9) Eosinophils (%) (Auto) 5 % (0-3) Basophils (%) (Auto) 1 % (0-3) Neutrophils # (Auto) 10.0 x10^3uL (1.8-7.7) Lymphocytes # (Auto) 1.0 x10^3/uL (1.0-4.8) Monocytes # (Auto) 1.0 x10^3/uL (0.0-1.1) Eosinophils # (Auto) 0.7 x10^3/uL (0.0-0.7) Basophils # (Auto) 0.1 x10^3/uL (0.0-0.2) Sodium Level 136 mmol/L (136-145) Potassium Level 4.2 mmol/L (3.5-5.1) Chloride Level 96 mmol/L (98-107) Carbon Dioxide Level 30 mmol/L (21-32) Anion Gap 10 (6-14) Blood Urea Nitrogen 35 mg/dL (8-26) Creatinine 11.8 mg/dL (0.7-1.3) Estimated GFR (Cockcroft-Gault) 5.9 BUN/Creatinine Ratio 3 (6-20) Glucose Level 219 mg/dL (70-99) Calcium Level 8.3 mg/dL (8.5-10.1) Total Bilirubin 0.3 mg/dL (0.2-1.0) Aspartate Amino Transf (AST/SGOT) 10 U/L (15-37) Alanine Aminotransferase (ALT/SGPT) 68 U/L (16-63) Alkaline Phosphatase 132 U/L (46-116) Total Protein 6.3 g/dL (6.4-8.2) Albumin 1.8 g/dL (3.4-5.0) Albumin/Globulin Ratio 0.4 (1.0-1.7) Test 12/05/18 09:02 Glucose (Fingerstick) 78 mg/dL (70-99) Problem List Problems Medical Problems: (1) Abnormal EKG Status: Acute (2) Elevated troponin Status: Acute (3) End stage renal disease Status: Acute (4) Fever Status: Acute Assessment/Plan advance diet PONCHO STRANGE MD 12/05/18 1402: SURGICAL PROGRESS NOTE Assessment/Plan pt seen and examined incision c/d tolerated full liquids Dr Espinal to follow over the weekend MASON NEVAREZ APRN Dec 05, 2018 10:39 PONCHO STRANGE MD Dec 05, 2018 14:02
--- NOTE | 2018-12-05 11:00 | PDOC ---
SUBJECTIVE ROS Seen on HD, No new concerns, complaints OBJECTIVE Vital Signs Vital Signs Date Time Temp Pulse Resp B/P (MAP) Pulse Ox O2 Delivery O2 Flow Rate FiO2 12/05/18 08:00 79 131/81 12/05/18 07:30 Nasal Cannula 2.0 12/05/18 03:28 98.3 22 98 98.3 I & 0 Intake and Output 12/05/18 06:59 Intake Total 2070 ml Balance 2070 ml Intake Oral 2070 ml PHYSICAL EXAM Physical Exam GEN: NAD HEENT: OM moist NECK: Supple LUNGS: Clear to auscultation. HEART: S1 and S2. ABDOMEN: soft, nontender, PD cath + EXTREMITIES: No edema SKIN: No Rash NEUROLOGIC: Alert and oriented x 3. 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 -s/p repositioning 12/02 extensive adhesions upper abdomen, tissue ingrowth PD catheter As per GS - not be able to use PD for a time while healing from surgery Fever- ?Line sepsis ID on board, Remove cath today post HD Anemia - avoid PRBC if possible since he is a Tx candidate On Aranesp ,significant drop in Hgb - Recd PRBC x2 and IV Fe as recommended by Hem/Onc Acute Diastolic CHF- Stable, On RA DM II- BS high Primary managing HTN- continue antihypertensives Hyperkalemia- resolved Transaminitis COMMENT/RELEVANT DATA Meds Current Medications Medications (Trade) Dose Ordered Sig/Afua Start Time Stop Time Status Last Admin Dose Admin Acetaminophen (Tylenol) 650 mg PRN Q4HRS PRN 11/30/18 20:15 12/04/18 13:57 650 MG Albumin Human 200 ml @ 200 mls/hr 1X PRN PRN 11/30/18 07:45 11/30/18 13:44 DC Albuterol Sulfate (Ventolin Neb Soln) 2.5 mg PRN Q6HRS PRN 11/30/18 13:45 Amlodipine Besylate (Norvasc) 10 mg DAILY 11/30/18 09:00 12/04/18 08:42 10 MG Aspirin (Anshul Aspirin) 325 mg 1X ONCE 11/29/18 19:45 11/29/18 19:46 DC 11/29/18 20:19 325 MG Bupivacaine HCl/ Epinephrine Bitart (Sensorcain-Mpf Epi 0.5%-1:824400) 30 ml STK-MED ONCE 12/02/18 07:36 12/02/18 07:37 DC 12/02/18 11:05 10 ML Calcitriol (Rocaltrol) 0.25 mcg DAILY 11/30/18 09:00 12/04/18 08:41 0.25 MCG Calcium Carbonate/ Glycine (Tums) 500 mg PRN BID PRN 11/30/18 13:30 Carvedilol (Coreg) 12.5 mg BIDWMEALS 11/30/18 08:00 12/04/18 17:49 12.5 MG Cefazolin Sodium 1 gm/Dextrose 50 ml @ 100 mls/hr Q12HR 12/05/18 12:00 Cinacalcet (Sensipar) 60 mg DAILY 11/30/18 09:00 12/04/18 08:42 60 MG Clonidine HCl (Catapres) 0.2 mg BID 11/29/18 21:00 12/04/18 22:51 0.2 MG Darbepoetin David (Aranesp) 60 mcg WEEKLYHS 12/07/18 21:00 Dexamethasone Sodium Phosphate (Decadron) 20 mg STK-MED ONCE 12/02/18 09:06 12/02/18 09:07 DC Dextrose (Dextrose 50%-Water Syringe) 12.5 gm PRN Q15MIN PRN 11/30/18 10:30 UNV Diphenhydramine HCl (Benadryl) 25 mg 1X PRN PRN 11/30/18 07:45 12/01/18 07:44 DC Docusate Sodium (Colace) 100 mg BID 11/29/18 21:00 12/04/18 22:51 100 MG Fentanyl Citrate (Fentanyl 2ml Vial) 50 mcg PRN Q5MIN PRN 12/02/18 13:00 12/02/18 20:24 DC 12/02/18 13:46 50 MCG Fluticasone Propionate (Flonase) 2 spray DAILY 11/30/18 14:00 12/01/18 13:31 2 SPRAY Furosemide (Lasix) 80 mg [id number] 11/29/18 20:00 12/04/18 13:57 80 MG Glycopyrrolate (Robinul) 1 mg STK-MED ONCE 12/02/18 12:25 12/02/18 12:26 DC Heparin Sodium (Porcine) 5000 unit/Sodium Chloride 505 ml @ 505 mls/hr 1X ONCE 12/02/18 07:00 12/02/18 07:59 DC 12/02/18 11:05 Hydromorphone HCl (Dilaudid) 1 mg PRN Q3HRS PRN 12/02/18 20:30 12/03/18 21:16 1 MG Info (PHARMACY MONITORING -- do not chart) 1 each PRN DAILY PRN 12/05/18 08:15 UNV Insulin Glargine (Lantus) 32 units HS 11/29/18 21:00 12/04/18 23:19 32 UNITS Insulin Human Lispro (HumaLOG) 10 units 1X ONCE 12/02/18 09:45 12/02/18 09:46 DC Iron Sucrose 200 mg/Sodium Chloride 110 ml @ 55 mls/hr 1X ONCE 11/29/18 19:15 11/29/18 21:14 DC 11/29/18 22:20 55 MLS/HR Labetalol HCl (Normodyne Iv Push) 10 mg PRN Q2HR PRN 11/30/18 04:00 12/03/18 04:25 10 MG Lactobacillus Rhamnosus (Culturelle) 1 cap BID 12/02/18 21:00 12/04/18 22:50 1 CAP Levofloxacin/ Dextrose (LEVAQUIN 500mg PREMIX) 500 mg STK-MED ONCE 12/02/18 11:00 12/03/18 08:41 DC Lidocaine HCl (Lidocaine Pf 2% Vial) 5 ml STK-MED ONCE 12/02/18 09:05 12/02/18 09:06 DC Lidocaine HCl (Xylocaine-Mpf 1% 2ml Vial) 2 ml 1X PRN PRN 12/02/18 13:00 12/03/18 12:59 DC Lisinopril (Prinivil) 40 mg BID 11/29/18 21:00 12/04/18 22:50 40 MG Metoclopramide HCl (Reglan Vial) 10 mg STK-MED ONCE 12/02/18 10:59 12/02/18 11:00 DC Morphine Sulfate (Morphine Sulfate) 1 mg PRN Q10MIN PRN 12/02/18 13:00 12/02/18 20:24 DC Neostigmine Methylsulfate (Bloxiverz) 10 mg STK-MED ONCE 12/02/18 12:25 12/02/18 12:26 DC Non-Formulary Medication (Epoetin David (Procrit)) 10,000 unit WEEKLY 12/07/18 09:00 12/07/18 09:00 DC Ondansetron HCl (Zofran) 4 mg PRN Q6HRS PRN 12/02/18 13:00 12/03/18 12:59 DC Oxycodone/ Acetaminophen (Percocet 5/325) 1 tab PRN Q4HRS PRN 12/02/18 13:15 12/03/18 21:15 1 TAB Pantoprazole Sodium (Protonix) 40 mg DAILYAC 11/30/18 14:00 12/04/18 08:41 40 MG Piperacillin Sod/ Tazobactam Sod (Zosyn Per Pharmacy) 1 each PRN DAILY PRN 11/30/18 12:15 12/05/18 10:11 DC Piperacillin Sod/ Tazobactam Sod 2.25 gm/Sodium Chloride 50 ml @ 100 mls/hr Q8HRS 11/30/18 13:00 12/05/18 10:11 DC 12/05/18 06:00 100 MLS/HR Piperacillin Sod/ Tazobactam Sod 3.375 gm/Sodium Chloride 50 ml @ 100 mls/hr 1X ONCE 11/29/18 18:15 11/29/18 18:44 DC 11/29/18 18:45 100 MLS/HR Polyethylene Glycol (miraLAX PACKET) 17 gm PRN DAILY PRN 11/30/18 17:00 Prochlorperazine Edisylate (Compazine) 5 mg PACU PRN PRN 12/02/18 13:00 12/03/18 12:59 DC Propofol 20 ml @ As Directed STK-MED ONCE 12/02/18 09:06 12/02/18 09:07 DC Ringer's Solution 1,000 ml @ 30 mls/hr Q24H 12/02/18 12:51 12/03/18 00:50 DC Rocuronium [place] (Zemuron) 50 mg STK-MED ONCE 12/02/18 09:05 12/02/18 09:06 DC Sennosides (Senna) 8.6 mg BID 11/29/18 21:00 12/04/18 22:49 8.6 MG Sevelamer Carbonate (Renvela) 4,000 mg TIDWMEALS 11/30/18 08:00 12/04/18 08:40 4,000 MG Sevoflurane (Ultane) 90 ml STK-MED ONCE 12/02/18 12:27 12/02/18 12:28 DC Simvastatin (Zocor) 20 mg HS 11/29/18 21:00 12/04/18 22:49 20 MG Sodium Chloride 1,000 ml @ 400 mls/hr Q2H30M PRN 12/05/18 07:00 12/05/18 18:59 Sodium Cl/Sod Bicarb/Potass Cl/ PEG (Golytely) 4,000 ml 1X ONCE 11/30/18 18:00 11/30/18 18:01 DC 11/30/18 17:33 4,000 ML Vancomycin HCl (Vanco Per Pharmacy) 1 each PRN DAILY PRN 11/30/18 12:15 12/04/18 08:03 DC 12/03/18 15:53 1 EACH Vancomycin HCl (Vancomycin Random Level) 1 each 1X ONCE 11/30/18 16:00 11/30/18 16:01 DC 11/30/18 16:00 1 EACH Vancomycin HCl 500 mg/Sodium Chloride 100 ml @ 100 mls/hr QMWF 12/01/18 16:00 12/04/18 08:03 DC 12/03/18 16:53 100 MLS/HR Vancomycin HCl 2 gm/Sodium Chloride 500 ml @ 250 mls/hr 1X ONCE 11/29/18 19:00 11/29/18 20:59 DC 11/29/18 18:46 250 MLS/HR Vitamin B Complex/ Vitamin C (Johanna-Celia) 1 tab DAILY 11/30/18 09:00 12/04/18 08:41 1 TAB Vitamin D (Vitamin D3) 5,000 unit DAILY 11/30/18 09:00 12/04/18 08:42 5,000 UNIT Lab Laboratory Tests Test 12/04/18 11:48 12/04/18 17:14 12/04/18 23:14 12/05/18 03:00 Glucose (Fingerstick) 121 mg/dL (70-99) 121 mg/dL (70-99) 338 mg/dL (70-99) White Blood Count 12.8 x10^3/uL (4.0-11.0) Red Blood Count 2.60 x10^6/uL (4.30-5.70) Hemoglobin 7.1 g/dL (13.0-17.5) Hematocrit 22.0 % (39.0-53.0) Mean Corpuscular Volume 85 fL (79-100) Mean Corpuscular Hemoglobin 27 pg (25-35) Mean Corpuscular Hemoglobin Concent 32 g/dL (31-37) Red Cell Distribution Width 17.6 % (11.5-14.5) Platelet Count 280 x10^3/uL (140-400) Neutrophils (%) (Auto) 78 % (31-73) Lymphocytes (%) (Auto) 8 % (24-48) Monocytes (%) (Auto) 8 % (0-9) Eosinophils (%) (Auto) 5 % (0-3) Basophils (%) (Auto) 1 % (0-3) Neutrophils # (Auto) 10.0 x10^3uL (1.8-7.7) Lymphocytes # (Auto) 1.0 x10^3/uL (1.0-4.8) Monocytes # (Auto) 1.0 x10^3/uL (0.0-1.1) Eosinophils # (Auto) 0.7 x10^3/uL (0.0-0.7) Basophils # (Auto) 0.1 x10^3/uL (0.0-0.2) Sodium Level 136 mmol/L (136-145) Potassium Level 4.2 mmol/L (3.5-5.1) Chloride Level 96 mmol/L (98-107) Carbon Dioxide Level 30 mmol/L (21-32) Anion Gap 10 (6-14) Blood Urea Nitrogen 35 mg/dL (8-26) Creatinine 11.8 mg/dL (0.7-1.3) Estimated GFR (Cockcroft-Gault) 5.9 BUN/Creatinine Ratio 3 (6-20) Glucose Level 219 mg/dL (70-99) Calcium Level 8.3 mg/dL (8.5-10.1) Total Bilirubin 0.3 mg/dL (0.2-1.0) Aspartate Amino Transf (AST/SGOT) 10 U/L (15-37) Alanine Aminotransferase (ALT/SGPT) 68 U/L (16-63) Alkaline Phosphatase 132 U/L (46-116) Total Protein 6.3 g/dL (6.4-8.2) Albumin 1.8 g/dL (3.4-5.0) Albumin/Globulin Ratio 0.4 (1.0-1.7) Test 12/05/18 09:02 Glucose (Fingerstick) 78 mg/dL (70-99) Results All relevant outside records, renal labs, imaging studies, telemetry/EKG's were reviewed. AYANNA PEREZ MD Dec 05, 2018 11:00
[2018-12-05 11:15] VITALS: BP 147/89
--- NOTE | 2018-12-05 11:38 | PDOC ---
PROGRESS NOTES Chief Complaint Chief Complaint Sepsis POA. Procalcitonin 94.62. ? line infection -resolved GPC bacteremia (3 of 4 bottles) POA 11/29 with MSSA present sensitivities noted Leukocytosis - better Transaminitis ? sepsis - increasing Fever - curve improving PCN allergy - nausea. Has tolerated Zosyn without problem Constipation Acute diastolic CHF CKD on HD (s/p HDC 11/26; small neck wound w/ stitch in place) Malfunctioning peritoneal catheter status post repositioning and hernia repair on 12/02/2018 Anemia. s/p iron and PRBCs 2 units evaluated by hematology and added Aranesp to his regimen Diabetes insulin requiring Plan: catheter to be discontinued today will follow results of repeat blood cultures new catheter on saturday once blood cultures have established that bacteremia is controlled continue broad spectrum antibiotics as per ID client relationship consultant. History of Present Illness History of Present Illness Patient with no acute events reported overnight. Discussed plan of care, he had dialysis today and will have his catheter removed today, no fever or chills reported. Vitals Vitals Vital Signs Date Time Temp Pulse Resp B/P (MAP) Pulse Ox O2 Delivery O2 Flow Rate FiO2 12/05/18 11:15 97.9 87 18 147/89 (108) 96 Nasal Cannula 2.0 97.9 Physical Exam Physical Exam GEN: Coop, NAD HEENT: Pupils are equally round, reactive. Normal conjunctivae. Oral cavity: Pharynx pink and moist. NECK: Supple. He has a small wound with a stitch in place on right-sided neck without surrounding redness or drainage. Scabbing LUNGS: Clear to auscultation. HEART: S1 and S2. ABDOMEN: Mild distension. Dressed. PD in place -clean ; no Scrotal bulge EXTREMITIES: No gross edema or cyanosis. SKIN: Warm without generalized rash. NEUROLOGIC: Alert and oriented x 3. LINES: Right-sided tunneled HD catheter (11/26) without signs of any complications. RUE PIV - improved swelling - no warmth/erythema. NT General: Alert, Oriented X3, Cooperative, No acute distress Heart: Regular rate Lungs: Clear Abdomen: Soft, Other (incisional pain) Extremities: No clubbing, No cyanosis Skin: No breakdown Labs LABS Laboratory Tests Test 12/04/18 11:48 12/04/18 17:14 12/04/18 23:14 12/05/18 03:00 Glucose (Fingerstick) 121 mg/dL (70-99) 121 mg/dL (70-99) 338 mg/dL (70-99) White Blood Count 12.8 x10^3/uL (4.0-11.0) Red Blood Count 2.60 x10^6/uL (4.30-5.70) Hemoglobin 7.1 g/dL (13.0-17.5) Hematocrit 22.0 % (39.0-53.0) Mean Corpuscular Volume 85 fL (79-100) Mean Corpuscular Hemoglobin 27 pg (25-35) Mean Corpuscular Hemoglobin Concent 32 g/dL (31-37) Red Cell Distribution Width 17.6 % (11.5-14.5) Platelet Count 280 x10^3/uL (140-400) Neutrophils (%) (Auto) 78 % (31-73) Lymphocytes (%) (Auto) 8 % (24-48) Monocytes (%) (Auto) 8 % (0-9) Eosinophils (%) (Auto) 5 % (0-3) Basophils (%) (Auto) 1 % (0-3) Neutrophils # (Auto) 10.0 x10^3uL (1.8-7.7) Lymphocytes # (Auto) 1.0 x10^3/uL (1.0-4.8) Monocytes # (Auto) 1.0 x10^3/uL (0.0-1.1) Eosinophils # (Auto) 0.7 x10^3/uL (0.0-0.7) Basophils # (Auto) 0.1 x10^3/uL (0.0-0.2) Sodium Level 136 mmol/L (136-145) Potassium Level 4.2 mmol/L (3.5-5.1) Chloride Level 96 mmol/L (98-107) Carbon Dioxide Level 30 mmol/L (21-32) Anion Gap 10 (6-14) Blood Urea Nitrogen 35 mg/dL (8-26) Creatinine 11.8 mg/dL (0.7-1.3) Estimated GFR (Cockcroft-Gault) 5.9 BUN/Creatinine Ratio 3 (6-20) Glucose Level 219 mg/dL (70-99) Calcium Level 8.3 mg/dL (8.5-10.1) Iron Level 21 ug/dL (65-175) Total Iron Binding Capacity 156 ug/dL (250-450) Iron Saturation 13 % (15-34) Total Bilirubin 0.3 mg/dL (0.2-1.0) Aspartate Amino Transf (AST/SGOT) 10 U/L (15-37) Alanine Aminotransferase (ALT/SGPT) 68 U/L (16-63) Alkaline Phosphatase 132 U/L (46-116) Total Protein 6.3 g/dL (6.4-8.2) Albumin 1.8 g/dL (3.4-5.0) Albumin/Globulin Ratio 0.4 (1.0-1.7) Test 12/05/18 09:02 12/05/18 10:56 Glucose (Fingerstick) 78 mg/dL (70-99) 82 mg/dL (70-99) Assessment and Plan Assessmemt and Plan Problems Medical Problems: (1) Abnormal EKG Status: Acute (2) Elevated troponin Status: Acute (3) End stage renal disease Status: Acute (4) Fever Status: Acute Comment Review of Relevant I have reviewed the following items javy (where applicable) has been applied. Labs Laboratory Tests Test 12/03/18 16:44 12/03/18 21:13 12/04/18 03:40 12/04/18 07:12 Glucose (Fingerstick) 155 mg/dL (70-99) 226 mg/dL (70-99) 95 mg/dL (70-99) White Blood Count 11.2 x10^3/uL (4.0-11.0) Red Blood Count 2.65 x10^6/uL (4.30-5.70) Hemoglobin 7.3 g/dL (13.0-17.5) Hematocrit 22.7 % (39.0-53.0) Mean Corpuscular Volume 86 fL (79-100) Mean Corpuscular Hemoglobin 28 pg (25-35) Mean Corpuscular Hemoglobin Concent 32 g/dL (31-37) Red Cell Distribution Width 18.4 % (11.5-14.5) Platelet Count 266 x10^3/uL (140-400) Neutrophils (%) (Auto) 78 % (31-73) Lymphocytes (%) (Auto) 8 % (24-48) Monocytes (%) (Auto) 10 % (0-9) Eosinophils (%) (Auto) 4 % (0-3) Basophils (%) (Auto) 0 % (0-3) Neutrophils # (Auto) 8.7 x10^3uL (1.8-7.7) Lymphocytes # (Auto) 0.9 x10^3/uL (1.0-4.8) Monocytes # (Auto) 1.1 x10^3/uL (0.0-1.1) Eosinophils # (Auto) 0.4 x10^3/uL (0.0-0.7) Basophils # (Auto) 0.0 x10^3/uL (0.0-0.2) Sodium Level 138 mmol/L (136-145) Potassium Level 4.4 mmol/L (3.5-5.1) Chloride Level 97 mmol/L (98-107) Carbon Dioxide Level 30 mmol/L (21-32) Anion Gap 11 (6-14) Blood Urea Nitrogen 26 mg/dL (8-26) Creatinine 9.4 mg/dL (0.7-1.3) Estimated GFR (Cockcroft-Gault) 7.7 BUN/Creatinine Ratio 3 (6-20) Glucose Level 170 mg/dL (70-99) Calcium Level 8.8 mg/dL (8.5-10.1) Total Bilirubin 0.4 mg/dL (0.2-1.0) Aspartate Amino Transf (AST/SGOT) 22 U/L (15-37) Alanine Aminotransferase (ALT/SGPT) 95 U/L (16-63) Alkaline Phosphatase 142 U/L (46-116) Total Protein 6.5 g/dL (6.4-8.2) Albumin 2.0 g/dL (3.4-5.0) Albumin/Globulin Ratio 0.4 (1.0-1.7) Test 12/04/18 11:48 12/04/18 17:14 12/04/18 23:14 12/05/18 03:00 Glucose (Fingerstick) 121 mg/dL (70-99) 121 mg/dL (70-99) 338 mg/dL (70-99) White Blood Count 12.8 x10^3/uL (4.0-11.0) Red Blood Count 2.60 x10^6/uL (4.30-5.70) Hemoglobin 7.1 g/dL (13.0-17.5) Hematocrit 22.0 % (39.0-53.0) Mean Corpuscular Volume 85 fL (79-100) Mean Corpuscular Hemoglobin 27 pg (25-35) Mean Corpuscular Hemoglobin Concent 32 g/dL (31-37) Red Cell Distribution Width 17.6 % (11.5-14.5) Platelet Count 280 x10^3/uL (140-400) Neutrophils (%) (Auto) 78 % (31-73) Lymphocytes (%) (Auto) 8 % (24-48) Monocytes (%) (Auto) 8 % (0-9) Eosinophils (%) (Auto) 5 % (0-3) Basophils (%) (Auto) 1 % (0-3) Neutrophils # (Auto) 10.0 x10^3uL (1.8-7.7) Lymphocytes # (Auto) 1.0 x10^3/uL (1.0-4.8) Monocytes # (Auto) 1.0 x10^3/uL (0.0-1.1) Eosinophils # (Auto) 0.7 x10^3/uL (0.0-0.7) Basophils # (Auto) 0.1 x10^3/uL (0.0-0.2) Sodium Level 136 mmol/L (136-145) Potassium Level 4.2 mmol/L (3.5-5.1) Chloride Level 96 mmol/L (98-107) Carbon Dioxide Level 30 mmol/L (21-32) Anion Gap 10 (6-14) Blood Urea Nitrogen 35 mg/dL (8-26) Creatinine 11.8 mg/dL (0.7-1.3) Estimated GFR (Cockcroft-Gault) 5.9 BUN/Creatinine Ratio 3 (6-20) Glucose Level 219 mg/dL (70-99) Calcium Level 8.3 mg/dL (8.5-10.1) Iron Level 21 ug/dL (65-175) Total Iron Binding Capacity 156 ug/dL (250-450) Iron Saturation 13 % (15-34) Total Bilirubin 0.3 mg/dL (0.2-1.0) Aspartate Amino Transf (AST/SGOT) 10 U/L (15-37) Alanine Aminotransferase (ALT/SGPT) 68 U/L (16-63) Alkaline Phosphatase 132 U/L (46-116) Total Protein 6.3 g/dL (6.4-8.2) Albumin 1.8 g/dL (3.4-5.0) Albumin/Globulin Ratio 0.4 (1.0-1.7) Test 12/05/18 09:02 12/05/18 10:56 Glucose (Fingerstick) 78 mg/dL (70-99) 82 mg/dL (70-99) Laboratory Tests Test 12/04/18 11:48 12/04/18 17:14 12/04/18 23:14 12/05/18 03:00 Glucose (Fingerstick) 121 mg/dL (70-99) 121 mg/dL (70-99) 338 mg/dL (70-99) White Blood Count 12.8 x10^3/uL (4.0-11.0) Red Blood Count 2.60 x10^6/uL (4.30-5.70) Hemoglobin 7.1 g/dL (13.0-17.5) Hematocrit 22.0 % (39.0-53.0) Mean Corpuscular Volume 85 fL (79-100) Mean Corpuscular Hemoglobin 27 pg (25-35) Mean Corpuscular Hemoglobin Concent 32 g/dL (31-37) Red Cell Distribution Width 17.6 % (11.5-14.5) Platelet Count 280 x10^3/uL (140-400) Neutrophils (%) (Auto) 78 % (31-73) Lymphocytes (%) (Auto) 8 % (24-48) Monocytes (%) (Auto) 8 % (0-9) Eosinophils (%) (Auto) 5 % (0-3) Basophils (%) (Auto) 1 % (0-3) Neutrophils # (Auto) 10.0 x10^3uL (1.8-7.7) Lymphocytes # (Auto) 1.0 x10^3/uL (1.0-4.8) Monocytes # (Auto) 1.0 x10^3/uL (0.0-1.1) Eosinophils # (Auto) 0.7 x10^3/uL (0.0-0.7) Basophils # (Auto) 0.1 x10^3/uL (0.0-0.2) Sodium Level 136 mmol/L (136-145) Potassium Level 4.2 mmol/L (3.5-5.1) Chloride Level 96 mmol/L (98-107) Carbon Dioxide Level 30 mmol/L (21-32) Anion Gap 10 (6-14) Blood Urea Nitrogen 35 mg/dL (8-26) Creatinine 11.8 mg/dL (0.7-1.3) Estimated GFR (Cockcroft-Gault) 5.9 BUN/Creatinine Ratio 3 (6-20) Glucose Level 219 mg/dL (70-99) Calcium Level 8.3 mg/dL (8.5-10.1) Iron Level 21 ug/dL (65-175) Total Iron Binding Capacity 156 ug/dL (250-450) Iron Saturation 13 % (15-34) Total Bilirubin 0.3 mg/dL (0.2-1.0) Aspartate Amino Transf (AST/SGOT) 10 U/L (15-37) Alanine Aminotransferase (ALT/SGPT) 68 U/L (16-63) Alkaline Phosphatase 132 U/L (46-116) Total Protein 6.3 g/dL (6.4-8.2) Albumin 1.8 g/dL (3.4-5.0) Albumin/Globulin Ratio 0.4 (1.0-1.7) Test 12/05/18 09:02 12/05/18 10:56 Glucose (Fingerstick) 78 mg/dL (70-99) 82 mg/dL (70-99) Microbiology 12/04/18 Blood Culture - Preliminary, Resulted NO GROWTH AFTER 1 DAY Medications Current Medications Vancomycin HCl (Vanco Per Pharmacy) 1 each 1X ONCE MC ; Start 11/29/18 at 18:15 ; Stop 11/29/18 at 18:16; Status Cancel Piperacillin Sod/ Tazobactam Sod 3.375 gm/Sodium Chloride 50 ml @ 100 mls/hr 1X ONCE IV Last administered on 11/29/18at 18:45; Start 11/29/18 at 18:15; Stop 11/29/18 at 18:44; Status DC Ondansetron HCl (Zofran) 4 mg 1X ONCE IV Last administered on 11/29/18at 18:43 ; Start 11/29/18 at 18:15; Stop 11/29/18 at 18:23; Status DC Vancomycin HCl 2 gm/Sodium Chloride 500 ml @ 250 mls/hr 1X ONCE IV Last administered on 11/29/18at 18:46; Start 11/29/18 at 19:00; Stop 11/29/18 at 20:59 ; Status DC Iron Sucrose 200 mg/Sodium Chloride 110 ml @ 55 mls/hr 1X ONCE IV Last administered on 11/29/18at 22:20; Start 11/29/18 at 19:15; Stop 11/29/18 at 21:14 ; Status DC Ondansetron HCl (Zofran) 4 mg PRN Q8HRS PRN IV NAUSEA/VOMITING; Start 11/29/18 at 19:30; Stop 11/29/18 at 19:36; Status DC Fentanyl Citrate (Fentanyl 2ml Vial) 50 mcg PRN Q1HR PRN IV PAIN Last administered on 11/30/18at 16:23; Start 11/29/18 at 19:30; Stop 11/30/18 at 19:29 ; Status DC Acetaminophen (Tylenol) 650 mg PRN Q4HRS PRN PO FEVER Last administered on 11/30 17:35; Start 11/29/18 at 19:30; Stop 11/30/18 at 19:29; Status DC Ondansetron HCl (Zofran) 4 mg PRN Q6HRS PRN IV NAUSEA/VOMITING Last administered on 12/04/18at 17:52; Start 11/29/18 at 19:45 Amlodipine Besylate (Norvasc) 10 mg DAILY PO Last administered on 12/04/18at 08: 42; Start 11/30/18 at 09:00 Clonidine HCl (Catapres) 0.2 mg BID PO Last administered on 12/04/18at 22:51; Start 11/29/18 at 21:00 Docusate Sodium (Colace) 100 mg BID PO Last administered on 12/04/18 22:51; Start 11/29/18 at 21:00 Furosemide (Lasix) 80 mg BID92 PO Last administered on 12/04/18at 13:57; Start 11/29/18 at 20:00 Insulin Glargine (Lantus) 32 units HS SQ Last administered on 12/04/18 23:19; Start 11/29/18 at 21:00 Lisinopril (Prinivil) 40 mg BID PO Last administered on 12/04/18 22:50; Start 11/29/18 at 21:00 Sevelamer Carbonate (Renvela) 4,000 mg TIDWMEALS PO Last administered on 08:40; Start 11/30/18 at 08:00 Calcitriol (Rocaltrol) 0.25 mcg DAILY PO Last administered on 12/04/18 08:41; Start 11/30/18 at 09:00 Carvedilol (Coreg) 12.5 mg BIDWMEALS PO Last administered on 12/04/18 17:49; Start 11/30/18 at 08:00 Vitamin D (Vitamin D3) 5,000 unit DAILY PO Last administered on 12/04/18 08:42 ; Start 11/30/18 at 09:00 Cinacalcet (Sensipar) 60 mg DAILY PO Last administered on 12/04/18 08:42; Start 11/30/18 at 09:00 Polyethylene Glycol (miraLAX PACKET) 17 gm DAILY PO Last administered on 08:40; Start 11/30/18 at 09:00 Sennosides (Senna) 8.6 mg BID PO Last administered on 12/04/18 22:49; Start at 21:00 Simvastatin (Zocor) 20 mg HS PO Last administered on 12/04/18 22:49; Start at 21:00 Vitamin B Complex/ Vitamin C (Johanna-Celia) 1 tab DAILY PO Last administered on 08:41; Start 11/30/18 at 09:00 Insulin Human Lispro (HumaLOG) 0-9 UNITS TIDWMEALS SQ Last administered on 11/29 22:44; Start 11/30/18 at 08:00; Stop 11/30/18 at 10:28; Status DC Dextrose (Dextrose 50%-Water Syringe) 12.5 gm PRN Q15MIN PRN IV SEE COMMENTS; Start 11/29/18 at 19:45 Aspirin (Anshul Aspirin) 325 mg 1X ONCE PO Last administered on 11/29/18at 20:19 ; Start 11/29/18 at 19:45; Stop 11/29/18 at 19:46; Status DC Labetalol HCl (Normodyne Iv Push) 10 mg PRN Q2HR PRN IVP HYPERTENSION, SEE COMMENTS Last administered on 12/03/18at 04:25; Start 11/30/18 at 04:00 Sodium Chloride 1,000 ml @ 100 mls/hr 1X ONCE IV Last administered on at 04:17; Start 11/30/18 at 04:30; Stop 11/30/18 at 05:57; Status DC Darbepoetin David (Aranesp) 100 mcg 1X ONCE SQ Last administered on 11/30/18at 06:06; Start 11/30/18 at 07:00; Stop 11/30/18 at 07:01; Status DC Sodium Chloride 1,000 ml @ 1,000 mls/hr Q1H PRN IV hypotension; Start 11/30/18 at 07:34; Stop 11/30/18 at 13:39; Status DC Albumin Human 200 ml @ 200 mls/hr 1X PRN PRN IV Hypotension; Start 11/30/18 at 07:45; Stop 11/30/18 at 13:44; Status DC Diphenhydramine HCl (Benadryl) 25 mg 1X PRN PRN IV ITCHING; Start 11/30/18 at 07:45; Stop 12/01/18 at 07:44; Status DC Sodium Chloride 1,000 ml @ 400 mls/hr Q2H30M PRN IV PATENCY; Start 11/30/18 at 07:34; Stop 11/30/18 at 19:33; Status DC Info (PHARMACY MONITORING -- do not chart) 1 each PRN DAILY PRN MC SEE COMMENTS ; Start 11/30/18 at 07:45; Stop 12/03/18 at 15:49; Status DC Info (PHARMACY MONITORING -- do not chart) 1 each PRN DAILY PRN MC SEE COMMENTS ; Start 11/30/18 at 07:45; Status UNV Darbepoetin David (Aranesp) 60 mcg WEEKLYHS SQ ; Start 11/30/18 at 21:00; Stop at 21:00; Status DC Darbepoetin David (Aranesp) 60 mcg WEEKLYHS SQ ; Start 12/07/18 at 21:00 Insulin Human Lispro (HumaLOG) 0-9 UNITS TIDWMEALS SQ Last administered on 12/02at 17:06; Start 11/30/18 at 12:00 Dextrose (Dextrose 50%-Water Syringe) 12.5 gm PRN Q15MIN PRN IV SEE COMMENTS; Start 11/30/18 at 10:30; Status UNV Vancomycin HCl (Vanco Per Pharmacy) 1 each PRN DAILY PRN MC SEE COMMENTS Last administered on 12/03/18at 15:53; Start 11/30/18 at 12:15; Stop 12/04/18 at 08:03 ; Status DC Piperacillin Sod/ Tazobactam Sod (Zosyn Per Pharmacy) 1 each PRN DAILY PRN MC SEE COMMENTS; Start 11/30/18 at 12:15; Stop 12/05/18 at 10:11; Status DC Piperacillin Sod/ Tazobactam Sod 2.25 gm/Sodium Chloride 50 ml @ 100 mls/hr Q8HRS IV Last administered on 12/05/18at 06:00; Start 11/30/18 at 13:00; Stop at 10:11; Status DC Calcium Carbonate/ Glycine (Tums) 500 mg PRN BID PRN PO INDIGESTION; Start at 13:30 Albuterol Sulfate (Ventolin Neb Soln) 2.5 mg PRN Q6HRS PRN NEB SHORTNESS OF BREATH; Start 11/30/18 at 13:45 Non-Formulary Medication (Epoetin David (Procrit)) 10,000 unit WEEKLY IJ ; Start 12/07/18 at 09:00; Stop 12/07/18 at 09:00; Status DC Fluticasone Propionate (Flonase) 2 spray DAILY NS Last administered on at 13:31; Start 11/30/18 at 14:00 Pantoprazole Sodium (Protonix) 40 mg DAILYAC PO Last administered on 12/04/18at 08:41; Start 11/30/18 at 14:00 Vancomycin HCl (Vancomycin Random Level) 1 each 1X ONCE MC Last administered on 11/30/18at 16:00; Start 11/30/18 at 16:00; Stop 11/30/18 at 16:01; Status DC Sodium Cl/Sod Bicarb/Potass Cl/ PEG (Golytely) 4,000 ml 1X ONCE PO Last administered on 11/30/18at 17:33; Start 11/30/18 at 18:00; Stop 11/30/18 at 18:01 ; Status DC Polyethylene Glycol (miraLAX PACKET) 17 gm PRN DAILY PRN PO CONSTIPATION; Start 11/30/18 at 17:00 Acetaminophen (Tylenol) 650 mg PRN Q4HRS PRN PO FEVER Last administered on 12/04at 13:57; Start 11/30/18 at 20:15 Vancomycin HCl 500 mg/Sodium Chloride 100 ml @ 100 mls/hr QMWF IV Last administered on 12/03/18at 16:53; Start 12/01/18 at 16:00; Stop 12/04/18 at 08:03 ; Status DC Sodium Chloride 1,000 ml @ 1,000 mls/hr Q1H PRN IV hypotension; Start 12/01/18 at 07:00; Stop 12/01/18 at 18:00; Status DC Sodium Chloride 1,000 ml @ 400 mls/hr Q2H30M PRN IV PATENCY; Start 12/01/18 at 07:00; Stop 12/01/18 at 18:59; Status DC Info (PHARMACY MONITORING -- do not chart) 1 each PRN DAILY PRN MC SEE COMMENTS ; Start 12/01/18 at 10:30; Status UNV Info (PHARMACY MONITORING -- do not chart) 1 each PRN DAILY PRN MC SEE COMMENTS ; Start 12/01/18 at 10:30; Status UNV Heparin Sodium (Porcine) 5000 unit/Sodium Chloride 505 ml @ 505 mls/hr 1X ONCE IRR Last administered on 12/02/18at 11:05; Start 12/02/18 at 07:00; Stop at 07:59; Status DC Bupivacaine HCl/ Epinephrine Bitart (Sensorcain-Mpf Epi 0.5%-1:030900) 30 ml STK -MED ONCE .ROUTE Last administered on 12/02/18at 11:05; Start 12/02/18 at 07:36 ; Stop 12/02/18 at 07:37; Status DC Fentanyl Citrate (Fentanyl 2ml Vial) 100 mcg STK-MED ONCE .ROUTE ; Start at 09:05; Stop 12/02/18 at 09:06; Status DC Rocuronium Sidney (Zemuron) 50 mg STK-MED ONCE .ROUTE ; Start 12/02/18 at 09:05 ; Stop 12/02/18 at 09:06; Status DC Lidocaine HCl (Lidocaine Pf 2% Vial) 5 ml STK-MED ONCE .ROUTE ; Start 12/02/18 at 09:05; Stop 12/02/18 at 09:06; Status DC Propofol 20 ml @ As Directed STK-MED ONCE IV ; Start 12/02/18 at 09:06; Stop at 09:07; Status DC Dexamethasone Sodium Phosphate (Decadron) 20 mg STK-MED ONCE .ROUTE ; Start at 09:06; Stop 12/02/18 at 09:07; Status DC Ondansetron HCl (Zofran) 4 mg STK-MED ONCE .ROUTE ; Start 12/02/18 at 09:06; Stop 12/02/18 at 09:07; Status DC Insulin Human Lispro (HumaLOG) 10 units 1X ONCE SQ ; Start 12/02/18 at 09:45; Stop 12/02/18 at 09:46; Status DC Levofloxacin/ Dextrose 100 ml @ As Directed STK-MED ONCE IV ; Start 12/02/18 at 10:46; Stop 12/02/18 at 10:47; Status DC Metoclopramide HCl (Reglan Vial) 10 mg STK-MED ONCE .ROUTE ; Start 12/02/18 at 10:59; Stop 12/02/18 at 11:00; Status DC Neostigmine Methylsulfate (Bloxiverz) 10 mg STK-MED ONCE .ROUTE ; Start at 12:25; Stop 12/02/18 at 12:26; Status DC Glycopyrrolate (Robinul) 1 mg STK-MED ONCE .ROUTE ; Start 12/02/18 at 12:25; Stop 12/02/18 at 12:26; Status DC Sevoflurane (Ultane) 90 ml STK-MED ONCE IH ; Start 12/02/18 at 12:27; Stop 12/02 at 12:28; Status DC Ondansetron HCl (Zofran) 4 mg PRN Q6HRS PRN IV NAUSEA/VOMITING; Start 12/02/18 at 13:00; Stop 12/03/18 at 12:59; Status DC Fentanyl Citrate (Fentanyl 2ml Vial) 25 mcg PRN Q5MIN PRN IV MILD PAIN; Start 12/02/18 at 13:00; Stop 12/02/18 at 20:24; Status DC Fentanyl Citrate (Fentanyl 2ml Vial) 50 mcg PRN Q5MIN PRN IV MODERATE TO SEVERE PAIN Last administered on 12/02/18at 13:46; Start 12/02/18 at 13:00; Stop 12/02/18 at 20:24; Status DC Morphine Sulfate (Morphine Sulfate) 1 mg PRN Q10MIN PRN IV SEVERE PAIN; Start 12/02/18 at 13:00; Stop 12/02/18 at 20:24; Status DC Ringer's Solution 1,000 ml @ 30 mls/hr Q24H IV ; Start 12/02/18 at 12:51; Stop 12/03/18 at 00:50; Status DC Lidocaine HCl (Xylocaine-Mpf 1% 2ml Vial) 2 ml 1X PRN PRN ID IV START; Start at 13:00; Stop 12/03/18 at 12:59; Status DC Hydromorphone HCl (Dilaudid) 0.5 mg PRN Q10MIN PRN IV SEV PAIN, Second choice Last administered on 12/02/18at 16:52; Start 12/02/18 at 13:00; Stop 12/03/18 at 12:59; Status DC Prochlorperazine Edisylate (Compazine) 5 mg PACU PRN PRN IV NAUSEA, MRX1; Start 12/02/18 at 13:00; Stop 12/03/18 at 12:59; Status DC Sodium Chloride 1,000 ml @ 100 mls/hr Q10H IV Last administered on 12/02/18at 13:04; Start 12/02/18 at 10:45; Stop 12/03/18 at 10:14; Status DC Hydromorphone HCl (Dilaudid) 1 mg PRN Q4HRS PRN IV pain Last administered on at 18:31; Start 12/02/18 at 13:15; Stop 12/02/18 at 20:24; Status DC Oxycodone/ Acetaminophen (Percocet 5/325) 1 tab PRN Q4HRS PRN PO PAIN Last administered on 12/03/18at 21:15; Start 12/02/18 at 13:15 Levofloxacin/ Dextrose 100 ml @ 100 mls/hr 1X ONCE IV ; Start 12/02/18 at 10: 45; Stop 12/02/18 at 13:23; Status DC Lactobacillus Rhamnosus (Culturelle) 1 cap BID PO Last administered on at 22:50; Start 12/02/18 at 21:00 Hydromorphone HCl (Dilaudid) 1 mg PRN Q3HRS PRN IV SEVERE PAIN Last administered on 12/03/18at 21:16; Start 12/02/18 at 20:30 Levofloxacin/ Dextrose (LEVAQUIN 500mg PREMIX) 500 mg STK-MED ONCE IV ; Start at 11:00; Stop 12/03/18 at 08:41; Status DC Sodium Chloride 1,000 ml @ 1,000 mls/hr Q1H PRN IV hypotension; Start 12/03/18 at 07:00; Stop 12/03/18 at 12:59; Status DC Sodium Chloride 1,000 ml @ 400 mls/hr Q2H30M PRN IV PATENCY; Start 12/03/18 at 07:00; Stop 12/03/18 at 18:59; Status DC Info (PHARMACY MONITORING -- do not chart) 1 each PRN DAILY PRN MC SEE COMMENTS ; Start 12/03/18 at 08:45; Status UNV Info (PHARMACY MONITORING -- do not chart) 1 each PRN DAILY PRN MC SEE COMMENTS ; Start 12/03/18 at 08:45 Sodium Chloride 1,000 ml @ 1,000 mls/hr Q1H PRN IV hypotension; Start 12/05/18 at 07:00; Stop 12/05/18 at 12:59 Sodium Chloride 1,000 ml @ 400 mls/hr Q2H30M PRN IV PATENCY; Start 12/05/18 at 07:00; Stop 12/05/18 at 18:59 Info (PHARMACY MONITORING -- do not chart) 1 each PRN DAILY PRN MC SEE COMMENTS ; Start 12/05/18 at 08:15; Status UNV Info (PHARMACY MONITORING -- do not chart) 1 each PRN DAILY PRN MC SEE COMMENTS ; Start 12/05/18 at 08:15; Status UNV Cefazolin Sodium 1 gm/Dextrose 50 ml @ 100 mls/hr Q12HR IV ; Start 12/05/18 at 12:00 Active Scripts Active Reported Protonix (Pantoprazole Sodium) 20 Mg Tablet.dr 2 Tab PO DAILY Flonase Allergy Relief (Fluticasone Propionate) 9.9 Ml [place].susp 2 Sprays NS DAILY Procrit (Epoetin David) 10,000 Unit/1 Ml Vial 10,000 Unit IJ WEEKLY Tums (Calcium Carbonate) 200 Mg Tab.chew 200 Mg PO BID PRN Proair Respiclick (Albuterol Sulfate) 90 Mcg Aer.pow.ba 1-2 Puff IH PRN Q6HRS PRN Senna (Sennosides) 8.6 Mg Tablet 8.6 Mg PO BID Miralax (Polyethylene Glycol 3350) 17 Gm Powd.pack 1 Packet PO DAILY Colace (Docusate Sodium) 100 Mg Capsule 1 Cap PO BID Carvedilol 25 Mg Tablet 25 Mg PO BIDWMEALS Renvela (Sevelamer Carbonate) 800 Mg Tablet 5 Tab PO TIDWMEALS Furosemide 80 Mg Tablet 1 Tab PO BID Vitamin D (Cholecalciferol (Vitamin D3)) 5,000 Unit Tablet 5,000 Unit PO DAILY Calcitriol 0.25 Mcg Capsule 2 Cap PO DAILY Clonidine Hcl 0.2 Mg Tablet 1 Tab PO BID Johanna-[facility] Rx Tablet (Vit B Cmplx 3/Fa/Vit C/Biotin) 1 Each Tablet 1 Each PO DAILY Sensipar (Cinacalcet Hcl) 60 Mg Tablet 60 Mg PO DAILY Amlodipine Besylate 10 Mg Tablet 10 Mg PO DAILY Simvastatin 20 Mg Tablet 20 Mg PO HS Lisinopril 40 Mg Tablet 1 Tab PO BID Novolog (Insulin Aspart) 100 Unit/1 Ml Vial 100 Unit SQ sliding scale Lantus Solostar (Insulin Glargine,Hum.rec.anlog) 100 Unit/1 Ml Insuln.pen 15 Unit SQ HS Vitals/I & O Vital Sign - Last 24 Hours 12/04/18 12/04/18 12/04/18 12/04/18 15:15 17:49 19:43 20:00 Temp 97.8 97.9 97.8 97.9 Pulse 79 79 82 Resp 18 18 B/P (MAP) 134/82 (99) 134/82 139/90 (106) Pulse Ox 92 94 O2 Delivery Room Air Room Air Room Air 12/04/18 12/04/18 12/04/18 12/05/18 22:50 22:51 23:00 03:28 Temp 98.7 98.3 98.7 98.3 Pulse 82 82 85 79 Resp 22 22 B/P (MAP) 139/90 139/90 165/72 (103) 131/81 (98) Pulse Ox 97 98 O2 Delivery Room Air Nasal Cannula O2 Flow Rate 2.0 12/05/18 12/05/18 12/05/18 07:30 08:00 11:15 Temp 97.9 97.9 Pulse 79 87 Resp 18 B/P (MAP) 131/81 147/89 (108) Pulse Ox 96 O2 Delivery Nasal Cannula Nasal Cannula O2 Flow Rate 2.0 2.0 Intake and Output 12/04/18 12/04/18 12/05/18 15:00 23:00 07:00 Intake Total 800 ml 550 ml 720 ml Balance 800 ml 550 ml 720 ml ACOSTA OSPINA MD Dec 05, 2018 11:37
--- NOTE | 2018-12-05 11:42 | NUR ---
SS following up with discharge planning. No discharge needs noted at this time. Pt's RN reported that pt has CPAP at home. Pt will discharge to home with spouse and continue Peritoneal dialysis at home when ready for discharge.
--- NOTE | 2018-12-05 12:08 | PDOC ---
Subjective: Subjective: I saw him earlier this morning in dialysis. Was spitting out phlegm. Denies n/ v. Still feels distended and has abd discomfort. No flatus or stool. Objective: Objective: Reviewed w/ floor RN - to have HD cath removed. Vital Signs: Vital Signs Date Time Temp Pulse Resp B/P (MAP) Pulse Ox O2 Delivery O2 Flow Rate FiO2 12/05/18 11:15 97.9 87 18 147/89 (108) 96 Nasal Cannula 2.0 97.9 Labs: Laboratory Tests Test 12/04/18 17:14 12/04/18 23:14 12/05/18 03:00 12/05/18 09:02 Glucose (Fingerstick) 121 mg/dL 338 mg/dL 78 mg/dL White Blood Count 12.8 x10^3/uL Red Blood Count 2.60 x10^6/uL Hemoglobin 7.1 g/dL Hematocrit 22.0 % Mean Corpuscular Volume 85 fL Mean Corpuscular Hemoglobin 27 pg Mean Corpuscular Hemoglobin Concent 32 g/dL Red Cell Distribution Width 17.6 % Platelet Count 280 x10^3/uL Neutrophils (%) (Auto) 78 % Lymphocytes (%) (Auto) 8 % Monocytes (%) (Auto) 8 % Eosinophils (%) (Auto) 5 % Basophils (%) (Auto) 1 % Neutrophils # (Auto) 10.0 x10^3uL Lymphocytes # (Auto) 1.0 x10^3/uL Monocytes # (Auto) 1.0 x10^3/uL Eosinophils # (Auto) 0.7 x10^3/uL Basophils # (Auto) 0.1 x10^3/uL Sodium Level 136 mmol/L Potassium Level 4.2 mmol/L Chloride Level 96 mmol/L Carbon Dioxide Level 30 mmol/L Anion Gap 10 Blood Urea Nitrogen 35 mg/dL Creatinine 11.8 mg/dL Estimated GFR (Cockcroft-Gault) 5.9 BUN/Creatinine Ratio 3 Glucose Level 219 mg/dL Calcium Level 8.3 mg/dL Iron Level 21 ug/dL Total Iron Binding Capacity 156 ug/dL Iron Saturation 13 % Ferritin 1262 ng/mL Total Bilirubin 0.3 mg/dL Aspartate Amino Transf (AST/SGOT) 10 U/L Alanine Aminotransferase (ALT/SGPT) 68 U/L Alkaline Phosphatase 132 U/L Total Protein 6.3 g/dL Albumin 1.8 g/dL Albumin/Globulin Ratio 0.4 Test 12/05/18 10:56 Glucose (Fingerstick) 82 mg/dL Imaging: Echo <Conclusion> The left ventricle is normal size. The left ventricular systolic function is normal and the ejection fraction is within normal range. The Ejection Fraction is 60-65%. There is mild concentric left ventricular hypertrophy. There is no significant aortic valvular stenosis. Doppler and Color Flow revealed no significant aortic regurgitation. Doppler and Color-flow revealed trace eccentric mitral regurgitation. Doppler and Color Flow revealed trace tricuspid regurgitation. The PA pressure was estimated at 24 mmHg. PE: GEN: dialyzing LUNGS: CTAB HEART: RRR ABD: distended, tender, quiet NEURO/PSYCH: A & O 3 A/P: S/p open repositioning PD cath and ANDREWS MSSA sepsis Chronic anemia -- Note plans to advance diet. Transfuse as needed. MORRIS LAMAR Dec 05, 2018 12:08
[2018-12-05] MEDS: ceFAZolin SODIUM 1 GM in IV DEXTROSE 5% 50 ML IV SCH ×2 (14:19→20:58)
[2018-12-05 15:20] VITALS: BP 148/86
[2018-12-05 15:29] LABS: ALBUM 2.6 g/dL (2.9-4.4); ALPHA 1 0.4 g/dL (0.0-0.4); BETA 0.8 g/dL (0.7-1.3); GAMMA 0.6 g/dL (0.4-1.8); PROTEIN TOTAL 5.5 g/dL (6.0-8.5); SPEP AG RATIO 0.9 (0.7-1.7)
--- NOTE | 2018-12-05 16:32 | RAD ---
Tunneled hemodialysis catheter removal at the bedside, no imaging. Technique and findings: Following informed consent, the patient was prepped and draped in usual sterile fashion. 1% lidocaine was used to achieve local anesthesia around the exit site of the existing catheter. Blunt dissection techniques were used to free the cuff and the catheter was removed and hemostasis was achieved with manual compression. Dressing was applied after the tract was irrigated with sterile saline. Impression: 1. Nonimage guided IJ tunneled hemodialysis catheter removal as described.
[2018-12-05] MEDS: ACETAMINOPHEN 325 MG TABLET. PO PRN (18:06)
--- NOTE | 2018-12-05 18:22 | NUR ---
Pt stating he is starting to pass gas. Bowel Sounds active in all quadrants. Pt tolerating full liquid diet
[2018-12-05 19:00] VITALS: BP 154/96
[2018-12-05] MEDS: SIMVASTATIN 20 MG TABLET PO SCH (20:57)
[2018-12-05] MEDS: INSULIN GLARGINE 300 UNITS/3 ML INSULN.PEN. SQ SCH (21:17)
[2018-12-05 22:35] VITALS: BP 145/88
[2018-12-06 03:00] VITALS: BP 138/87
[2018-12-06 04:32] LABS: BASO # 0.1 x10^3/uL (0.0-0.2); BASO % 1 % (0-3); EOS # 0.5 x10^3/uL (0.0-0.7); EOS % 6 % (0-3); HEMOGLOBIN 7.1 g/dL (13.0-17.5); LYMPH % 11 % (24-48); MEAN CORPUSCULAR HEMOGLOBIN 27 pg (25-35); MEAN CORPUSCULAR HGB CONC 32 g/dL (31-37); MEAN CORPUSCULAR VOLUME 85 fL (79-100); MONO # 0.9 x10^3/uL (0.0-1.1); MONO % 10 % (0-9); NEUT # 6.9 x10^3uL (1.8-7.7); NEUT % 74 % (31-73); PLATELET COUNT 347 x10^3/uL (140-400); RED BLOOD COUNT 2.58 x10^6/uL (4.30-5.70); RED CELL DISTRIBUTION WIDTH 18.3 % (11.5-14.5); WHITE BLOOD COUNT 9.4 x10^3/uL (4.0-11.0)
[2018-12-06 04:53] LABS: ALBUMIN/GLOBULIN RATIO 0.4 (1.0-1.7); CALCIUM 8.9 mg/dL (8.5-10.1); CREATININE 9.2 mg/dL (0.7-1.3); GFR 7.9; TOTAL BILIRUBIN 0.2 mg/dL (0.2-1.0); TOTAL PROTEIN 6.5 g/dL (6.4-8.2)
[2018-12-06 07:40] VITALS: BP 146/85
[2018-12-06] MEDS: INSULIN LISPRO 300 UNITS/3 ML INSULN.PEN. SQ SCH ×3 (08:00→17:00)
[2018-12-06] MEDS: POLYETHYLENE GLYCOL 3350 17 GM PACKET. PO SCH (08:36)
[2018-12-06] MEDS: SEVELAMER CARBONATE 800 MG TABLET. PO SCH ×3 (08:36→18:17)
[2018-12-06] MEDS: amLODIPine BESYLATE 10 MG TABLET PO SCH (08:37)
[2018-12-06] MEDS: ceFAZolin SODIUM 1 GM in IV DEXTROSE 5% 50 ML IV SCH ×2 (08:37→21:28)
[2018-12-06] MEDS: CINACALCET HCL 30 MG TABLET PO SCH (08:37)
[2018-12-06] MEDS: SENNOSIDES 8.6 MG TABLET PO SCH ×2 (08:39→21:26)
[2018-12-06] MEDS: cloNIDine HCL 0.2 MG TABLET PO SCH ×2 (08:39→21:27)
[2018-12-06] MEDS: DOCUSATE SODIUM 100 MG CAPSULE. PO SCH ×2 (08:39→21:26)
[2018-12-06] MEDS: CHOLECALCIFEROL (VITAMIN D3) 5,000 UNIT CAPSULE PO SCH (08:39)
[2018-12-06] MEDS: FOLIC/VIT B COMP W-C (RENAL) TABLET. PO SCH (08:39)
[2018-12-06] MEDS: CARVEDILOL 12.5 MG TABLET. PO SCH ×2 (08:39→18:18)
[2018-12-06] MEDS: CALCITRIOL 0.25 MCG CAPSULE. PO SCH (08:39)
[2018-12-06] MEDS: FUROSEMIDE 80 MG TABLET. PO SCH ×2 (08:40→12:19)
[2018-12-06] MEDS: LISINOPRIL 20 MG TABLET PO SCH ×2 (08:40→21:30)
[2018-12-06] MEDS: LACTOBACILLUS RHAMNOSUS GG 1 CAPSULE. PO SCH ×2 (08:40→21:26)
[2018-12-06] MEDS: PANTOPRAZOLE 40 MG TABLET.DR. PO SCH (08:40)
--- NOTE | 2018-12-06 09:07 | PDOC ---
Infectious Disease Note Subjective Subjective Comfortable, no concerns voiced this morning No F/C/S/N/V/SOA/Rash or pain. ROS ROS per HPI otherwise neg Vital Sign Vital Signs Vital Signs Date Time Temp Pulse Resp B/P (MAP) Pulse Ox O2 Delivery O2 Flow Rate FiO2 12/06/18 08:40 146/85 12/06/18 07:40 97.9 80 16 100 Nasal Cannula 2.0 97.9 Physical Exam PHYSICAL EXAM GENERAL: Propped up in bed, alert, NAD HEENT: Pupils are equally round, reactive. Normal conjunctivae. Oral cavity: Pharynx pink and moist. NECK: Supple. LUNGS: Clear to auscultation. HEART: S1 and S2. ABDOMEN: Mild distension. Dressed. PD in place -clean ; no Scrotal bulge EXTREMITIES: No gross edema or cyanosis. SKIN: Warm without generalized rash. NEUROLOGIC: Alert and oriented x 3. Right-sided tunneled HD catheter now out Labs Lab Laboratory Tests Test 12/05/18 09:02 12/05/18 10:56 12/05/18 17:07 12/05/18 20:31 Glucose (Fingerstick) 78 mg/dL (70-99) 82 mg/dL (70-99) 93 mg/dL (70-99) 145 mg/dL (70-99) Test 12/06/18 04:00 12/06/18 07:58 White Blood Count 9.4 x10^3/uL (4.0-11.0) Red Blood Count 2.58 x10^6/uL (4.30-5.70) Hemoglobin 7.1 g/dL (13.0-17.5) Hematocrit 22.0 % (39.0-53.0) Mean Corpuscular Volume 85 fL (79-100) Mean Corpuscular Hemoglobin 27 pg (25-35) Mean Corpuscular Hemoglobin Concent 32 g/dL (31-37) Red Cell Distribution Width 18.3 % (11.5-14.5) Platelet Count 347 x10^3/uL (140-400) Neutrophils (%) (Auto) 74 % (31-73) Lymphocytes (%) (Auto) 11 % (24-48) Monocytes (%) (Auto) 10 % (0-9) Eosinophils (%) (Auto) 6 % (0-3) Basophils (%) (Auto) 1 % (0-3) Neutrophils # (Auto) 6.9 x10^3uL (1.8-7.7) Lymphocytes # (Auto) 1.0 x10^3/uL (1.0-4.8) Monocytes # (Auto) 0.9 x10^3/uL (0.0-1.1) Eosinophils # (Auto) 0.5 x10^3/uL (0.0-0.7) Basophils # (Auto) 0.1 x10^3/uL (0.0-0.2) Sodium Level 139 mmol/L (136-145) Potassium Level 4.0 mmol/L (3.5-5.1) Chloride Level 101 mmol/L (98-107) Carbon Dioxide Level 26 mmol/L (21-32) Anion Gap 12 (6-14) Blood Urea Nitrogen 21 mg/dL (8-26) Creatinine 9.2 mg/dL (0.7-1.3) Estimated GFR (Cockcroft-Gault) 7.9 BUN/Creatinine Ratio 2 (6-20) Glucose Level 86 mg/dL (70-99) Calcium Level 8.9 mg/dL (8.5-10.1) Total Bilirubin 0.2 mg/dL (0.2-1.0) Aspartate Amino Transf (AST/SGOT) 16 U/L (15-37) Alanine Aminotransferase (ALT/SGPT) 52 U/L (16-63) Alkaline Phosphatase 119 U/L (46-116) Total Protein 6.5 g/dL (6.4-8.2) Albumin 2.0 g/dL (3.4-5.0) Albumin/Globulin Ratio 0.4 (1.0-1.7) Glucose (Fingerstick) 138 mg/dL (70-99) Micro 12/04. BLOOD CULTURE Preliminary NO GROWTH AFTER 2 DAYS Objective Assessment Sepsis POA, 11/29 with MSSA bacteremia. ? line infection - clinically better, repeat BC 12/05 NGTD -s/p HDC removal, 12/05 Leukocytosis - up but post procedure 12/02 and steroids Transaminitis ? sepsis - improving Fever - better PCN allergy - nausea. Has tolerated Zosyn without problem Constipation Acute diastolic CHF CKD on HD (s/p HDC 11/26; small neck wound w/ stitch in place) Malfunctioning peritoneal catheter -s/p repositioning 12/02 Anemia. s/p iron and PRBCs Diabetes Plan Plan of Care Repeat Blood cults - 12/04 NGTD Will need temp HD cath placed 12/08 Continue cefazolin Probiotics D/w family Attending Co-Sign Attending Co-Sign The patient was seen and interviewed as well as examined at the bedside. The chart was reviewed. The case was discussed. Agree with the plan of care. TUAN REYNOLDS APRN Dec 06, 2018 09:07 ECHO HENNESSY MD Dec 06, 2018 13:24
[2018-12-06] MEDS: FLUTICASONE 50MCG/NASAL SPRAY 16GM BOTTLE. NS SCH (09:28)
[2018-12-06 11:00] VITALS: BP 144/88
--- NOTE | 2018-12-06 12:46 | PDOC ---
G I PROGRESS NOTE Subjective Passed "lots of gas", but no stool. Feeling much better and would like more food. Physical Exam Lungs clear. RRR Abdomen softer. Tender at PD catheter. More bowel sounds. Review of Relevant I have reviewed the following items javy (where applicable) has been applied. Labs Laboratory Tests Test 12/04/18 17:14 12/04/18 23:14 12/05/18 03:00 12/05/18 09:02 Glucose (Fingerstick) 121 mg/dL (70-99) 338 mg/dL (70-99) 78 mg/dL (70-99) White Blood Count 12.8 x10^3/uL (4.0-11.0) Red Blood Count 2.60 x10^6/uL (4.30-5.70) Hemoglobin 7.1 g/dL (13.0-17.5) Hematocrit 22.0 % (39.0-53.0) Mean Corpuscular Volume 85 fL (79-100) Mean Corpuscular Hemoglobin 27 pg (25-35) Mean Corpuscular Hemoglobin Concent 32 g/dL (31-37) Red Cell Distribution Width 17.6 % (11.5-14.5) Platelet Count 280 x10^3/uL (140-400) Neutrophils (%) (Auto) 78 % (31-73) Lymphocytes (%) (Auto) 8 % (24-48) Monocytes (%) (Auto) 8 % (0-9) Eosinophils (%) (Auto) 5 % (0-3) Basophils (%) (Auto) 1 % (0-3) Neutrophils # (Auto) 10.0 x10^3uL (1.8-7.7) Lymphocytes # (Auto) 1.0 x10^3/uL (1.0-4.8) Monocytes # (Auto) 1.0 x10^3/uL (0.0-1.1) Eosinophils # (Auto) 0.7 x10^3/uL (0.0-0.7) Basophils # (Auto) 0.1 x10^3/uL (0.0-0.2) Sodium Level 136 mmol/L (136-145) Potassium Level 4.2 mmol/L (3.5-5.1) Chloride Level 96 mmol/L (98-107) Carbon Dioxide Level 30 mmol/L (21-32) Anion Gap 10 (6-14) Blood Urea Nitrogen 35 mg/dL (8-26) Creatinine 11.8 mg/dL (0.7-1.3) Estimated GFR (Cockcroft-Gault) 5.9 BUN/Creatinine Ratio 3 (6-20) Glucose Level 219 mg/dL (70-99) Calcium Level 8.3 mg/dL (8.5-10.1) Iron Level 21 ug/dL (65-175) Total Iron Binding Capacity 156 ug/dL (250-450) Iron Saturation 13 % (15-34) Ferritin 1262 ng/mL (26-388) Total Bilirubin 0.3 mg/dL (0.2-1.0) Aspartate Amino Transf (AST/SGOT) 10 U/L (15-37) Alanine Aminotransferase (ALT/SGPT) 68 U/L (16-63) Alkaline Phosphatase 132 U/L (46-116) Total Protein 6.3 g/dL (6.4-8.2) Albumin 1.8 g/dL (3.4-5.0) Albumin/Globulin Ratio 0.4 (1.0-1.7) Test 12/05/18 10:56 12/05/18 17:07 12/05/18 20:31 12/06/18 04:00 Glucose (Fingerstick) 82 mg/dL (70-99) 93 mg/dL (70-99) 145 mg/dL (70-99) White Blood Count 9.4 x10^3/uL (4.0-11.0) Red Blood Count 2.58 x10^6/uL (4.30-5.70) Hemoglobin 7.1 g/dL (13.0-17.5) Hematocrit 22.0 % (39.0-53.0) Mean Corpuscular Volume 85 fL (79-100) Mean Corpuscular Hemoglobin 27 pg (25-35) Mean Corpuscular Hemoglobin Concent 32 g/dL (31-37) Red Cell Distribution Width 18.3 % (11.5-14.5) Platelet Count 347 x10^3/uL (140-400) Neutrophils (%) (Auto) 74 % (31-73) Lymphocytes (%) (Auto) 11 % (24-48) Monocytes (%) (Auto) 10 % (0-9) Eosinophils (%) (Auto) 6 % (0-3) Basophils (%) (Auto) 1 % (0-3) Neutrophils # (Auto) 6.9 x10^3uL (1.8-7.7) Lymphocytes # (Auto) 1.0 x10^3/uL (1.0-4.8) Monocytes # (Auto) 0.9 x10^3/uL (0.0-1.1) Eosinophils # (Auto) 0.5 x10^3/uL (0.0-0.7) Basophils # (Auto) 0.1 x10^3/uL (0.0-0.2) Sodium Level 139 mmol/L (136-145) Potassium Level 4.0 mmol/L (3.5-5.1) Chloride Level 101 mmol/L (98-107) Carbon Dioxide Level 26 mmol/L (21-32) Anion Gap 12 (6-14) Blood Urea Nitrogen 21 mg/dL (8-26) Creatinine 9.2 mg/dL (0.7-1.3) Estimated GFR (Cockcroft-Gault) 7.9 BUN/Creatinine Ratio 2 (6-20) Glucose Level 86 mg/dL (70-99) Calcium Level 8.9 mg/dL (8.5-10.1) Total Bilirubin 0.2 mg/dL (0.2-1.0) Aspartate Amino Transf (AST/SGOT) 16 U/L (15-37) Alanine Aminotransferase (ALT/SGPT) 52 U/L (16-63) Alkaline Phosphatase 119 U/L (46-116) Total Protein 6.5 g/dL (6.4-8.2) Albumin 2.0 g/dL (3.4-5.0) Albumin/Globulin Ratio 0.4 (1.0-1.7) Test 12/06/18 07:58 12/06/18 11:58 Glucose (Fingerstick) 138 mg/dL (70-99) 218 mg/dL (70-99) Laboratory Tests Test 12/05/18 17:07 12/05/18 20:31 12/06/18 04:00 12/06/18 07:58 Glucose (Fingerstick) 93 mg/dL (70-99) 145 mg/dL (70-99) 138 mg/dL (70-99) White Blood Count 9.4 x10^3/uL (4.0-11.0) Red Blood Count 2.58 x10^6/uL (4.30-5.70) Hemoglobin 7.1 g/dL (13.0-17.5) Hematocrit 22.0 % (39.0-53.0) Mean Corpuscular Volume 85 fL (79-100) Mean Corpuscular Hemoglobin 27 pg (25-35) Mean Corpuscular Hemoglobin Concent 32 g/dL (31-37) Red Cell Distribution Width 18.3 % (11.5-14.5) Platelet Count 347 x10^3/uL (140-400) Neutrophils (%) (Auto) 74 % (31-73) Lymphocytes (%) (Auto) 11 % (24-48) Monocytes (%) (Auto) 10 % (0-9) Eosinophils (%) (Auto) 6 % (0-3) Basophils (%) (Auto) 1 % (0-3) Neutrophils # (Auto) 6.9 x10^3uL (1.8-7.7) Lymphocytes # (Auto) 1.0 x10^3/uL (1.0-4.8) Monocytes # (Auto) 0.9 x10^3/uL (0.0-1.1) Eosinophils # (Auto) 0.5 x10^3/uL (0.0-0.7) Basophils # (Auto) 0.1 x10^3/uL (0.0-0.2) Sodium Level 139 mmol/L (136-145) Potassium Level 4.0 mmol/L (3.5-5.1) Chloride Level 101 mmol/L (98-107) Carbon Dioxide Level 26 mmol/L (21-32) Anion Gap 12 (6-14) Blood Urea Nitrogen 21 mg/dL (8-26) Creatinine 9.2 mg/dL (0.7-1.3) Estimated GFR (Cockcroft-Gault) 7.9 BUN/Creatinine Ratio 2 (6-20) Glucose Level 86 mg/dL (70-99) Calcium Level 8.9 mg/dL (8.5-10.1) Total Bilirubin 0.2 mg/dL (0.2-1.0) Aspartate Amino Transf (AST/SGOT) 16 U/L (15-37) Alanine Aminotransferase (ALT/SGPT) 52 U/L (16-63) Alkaline Phosphatase 119 U/L (46-116) Total Protein 6.5 g/dL (6.4-8.2) Albumin 2.0 g/dL (3.4-5.0) Albumin/Globulin Ratio 0.4 (1.0-1.7) Test 12/06/18 11:58 Glucose (Fingerstick) 218 mg/dL (70-99) Microbiology 12/04/18 Blood Culture - Preliminary, Resulted NO GROWTH AFTER 2 DAYS Vitals/I & O Vital Sign - Last 24 Hours 12/05/18 12/05/18 12/05/18 12/05/18 15:20 18:05 19:00 20:00 Temp 99.3 98.1 99.3 98.1 Pulse 91 91 85 Resp 18 18 B/P (MAP) 148/86 (106) 148/86 154/96 (115) Pulse Ox 96 96 O2 Delivery Nasal Cannula Nasal Cannula Room Air O2 Flow Rate 2.0 2.0 12/05/18 12/05/18 12/05/18 12/06/18 20:58 20:58 22:35 03:00 Temp 98.5 98.1 98.5 98.1 Pulse 85 85 83 74 Resp 18 17 B/P (MAP) 154/96 154/96 145/88 (107) 138/87 (104) Pulse Ox 96 100 O2 Delivery Nasal Cannula Nasal Cannula O2 Flow Rate 2.0 2.0 12/06/18 12/06/18 12/06/18 12/06/18 07:40 07:54 08:37 08:39 Temp 97.9 97.9 Pulse 80 Resp 16 B/P (MAP) 146/85 (105) 146/85 146/85 Pulse Ox 100 O2 Delivery Nasal Cannula Room Air O2 Flow Rate 2.0 12/06/18 12/06/18 08:39 08:40 B/P (MAP) 146/85 146/85 Intake and Output 12/05/18 12/05/18 12/06/18 14:59 22:59 06:59 Intake Total 240 ml 650 ml 400 ml Balance 240 ml 650 ml 400 ml Problem List Problems Medical Problems: (1) Abnormal EKG Status: Acute (2) Elevated troponin Status: Acute (3) End stage renal disease Status: Acute (4) Fever Status: Acute Assessment Ileus, improved. Plan of Care Note OK with me to advance diet. Will defer to others which diet. ORQUIDEA MAR MD Dec 06, 2018 12:46
--- NOTE | 2018-12-06 13:21 | PDOC ---
SUBJECTIVE ROS Follow-up for ESRD on dialysis Patient denies any new complaints today CVS: no Orthopnea, no CP RESP: no SOB, no KAUFMAN GI: no Nausea, no Vomiting : no Dysuria, no Urgency OBJECTIVE Vital Signs Vital Signs Date Time Temp Pulse Resp B/P (MAP) Pulse Ox O2 Delivery O2 Flow Rate FiO2 12/06/18 11:00 98.1 78 20 144/88 (106) 100 Nasal Cannula 2.0 98.1 I & 0 Intake and Output 12/06/18 06:59 Intake Total 1290 ml Balance 1290 ml Intake Oral 1240 ml IV Total 50 ml PHYSICAL EXAM Physical Exam GEN: Awake, Oriented x 3, In no distress EYES: Vision Unchanged, Conjunctiva Normal EN: No EN Drainage, Mucous Membranes moist NECK: no JVD, no JVP, Supple, no Thyromegaly CVS: S1S2, + Murmur, No Gallop, No Rub,no Edema RESP: no Rales, no Rhonchi,no Acc. Muscle Use GI: BS + ve, NO Bruit, Non Tender, Non Distended : no CVA tenderness, no Suprapubic Tenderness DIAGNOSIS/ASSESSMENT Assessment & Plan ESRD: Current fluid and E-lyte status does not necessitate emergent need for dialysis. Will re-evaluate for dialysis in the am and continue on MWF schedule after placement of new permacath ANEMIA; Aranap as ordered, Transfuse with next HD as needed. May need blood transfusion if hemoglobin drops below 7 HTN in the setting of renal failure: Current BP meds as reviewed. See orders for changes. Nonfunctioning PD catheter: This appears to have been repositioned. I have ordered a PD catheter flushed today as recommended by his surgeon HyperPhosphatemia of renal failure: Continue current binder regimen and alter based on by mouth intake and trend of phosphorus Discussed Plan of Care with family at bedside COMMENT/RELEVANT DATA Meds Current Medications Medications (Trade) Dose Ordered Sig/Afua Start Time Stop Time Status Last Admin Dose Admin Acetaminophen (Tylenol) 650 mg PRN Q4HRS PRN 11/30/18 20:15 12/05/18 18:06 650 MG Albumin Human 200 ml @ 200 mls/hr 1X PRN PRN 11/30/18 07:45 11/30/18 13:44 DC Albuterol Sulfate (Ventolin Neb Soln) 2.5 mg PRN Q6HRS PRN 11/30/18 13:45 Amlodipine Besylate (Norvasc) 10 mg DAILY 11/30/18 09:00 12/06/18 08:37 10 MG Aspirin (Anshul Aspirin) 325 mg 1X ONCE 11/29/18 19:45 11/29/18 19:46 DC 11/29/18 20:19 325 MG Bupivacaine HCl/ Epinephrine Bitart (Sensorcain-Mpf Epi 0.5%-1:200133) 30 ml STK-MED ONCE 12/02/18 07:36 12/02/18 07:37 DC 12/02/18 11:05 10 ML Calcitriol (Rocaltrol) 0.25 mcg DAILY 11/30/18 09:00 12/06/18 08:39 0.25 MCG Calcium Carbonate/ Glycine (Tums) 500 mg PRN BID PRN 11/30/18 13:30 Carvedilol (Coreg) 12.5 mg BIDWMEALS 11/30/18 08:00 12/06/18 08:39 12.5 MG Cefazolin Sodium 1 gm/Dextrose 50 ml @ 100 mls/hr Q12HR 12/05/18 12:00 12/06/18 08:37 100 MLS/HR Cinacalcet (Sensipar) 60 mg DAILY 11/30/18 09:00 12/06/18 08:37 60 MG Clonidine HCl (Catapres) 0.2 mg BID 11/29/18 21:00 12/06/18 08:39 0.2 MG Darbepoetin David (Aranesp) 60 mcg WEEKLYHS 12/07/18 21:00 Dexamethasone Sodium Phosphate (Decadron) 20 mg STK-MED ONCE 12/02/18 09:06 12/02/18 09:07 DC Dextrose (Dextrose 50%-Water Syringe) 12.5 gm PRN Q15MIN PRN 11/30/18 10:30 UNV Diphenhydramine HCl (Benadryl) 25 mg 1X PRN PRN 11/30/18 07:45 12/01/18 07:44 DC Docusate Sodium (Colace) 100 mg BID 11/29/18 21:00 12/06/18 08:39 100 MG Fentanyl Citrate (Fentanyl 2ml Vial) 50 mcg PRN Q5MIN PRN 12/02/18 13:00 12/02/18 20:24 DC 12/02/18 13:46 50 MCG Fluticasone Propionate (Flonase) 2 spray DAILY 11/30/18 14:00 12/06/18 09:28 2 SPRAY Furosemide (Lasix) 80 mg [id number] 11/29/18 20:00 12/06/18 12:19 80 MG Glycopyrrolate (Robinul) 1 mg STK-MED ONCE 12/02/18 12:25 12/02/18 12:26 DC Heparin Sodium (Porcine) 5000 unit/Sodium Chloride 505 ml @ 505 mls/hr 1X ONCE 12/02/18 07:00 12/02/18 07:59 DC 12/02/18 11:05 Hydromorphone HCl (Dilaudid) 1 mg PRN Q3HRS PRN 12/02/18 20:30 12/03/18 21:16 1 MG Info (PHARMACY MONITORING -- do not chart) 1 each PRN DAILY PRN 12/05/18 08:15 UNV Insulin Glargine (Lantus) 32 units HS 11/29/18 21:00 12/05/18 21:17 30 UNITS Insulin Human Lispro (HumaLOG) 10 units 1X ONCE 12/02/18 09:45 12/02/18 09:46 DC Iron Sucrose 200 mg/Sodium Chloride 110 ml @ 55 mls/hr 1X ONCE 11/29/18 19:15 11/29/18 21:14 DC 11/29/18 22:20 55 MLS/HR Labetalol HCl (Normodyne Iv Push) 10 mg PRN Q2HR PRN 11/30/18 04:00 12/03/18 04:25 10 MG Lactobacillus Rhamnosus (Culturelle) 1 cap BID 12/02/18 21:00 12/06/18 08:40 1 CAP Levofloxacin/ Dextrose (LEVAQUIN 500mg PREMIX) 500 mg STK-MED ONCE 12/02/18 11:00 12/03/18 08:41 DC Lidocaine HCl (Lidocaine Pf 2% Vial) 5 ml STK-MED ONCE 12/02/18 09:05 12/02/18 09:06 DC Lidocaine HCl (Xylocaine-Mpf 1% 2ml Vial) 2 ml 1X PRN PRN 12/02/18 13:00 12/03/18 12:59 DC Lisinopril (Prinivil) 40 mg BID 11/29/18 21:00 12/06/18 08:40 40 MG Metoclopramide HCl (Reglan Vial) 10 mg STK-MED ONCE 12/02/18 10:59 12/02/18 11:00 DC Morphine Sulfate (Morphine Sulfate) 1 mg PRN Q10MIN PRN 12/02/18 13:00 12/02/18 20:24 DC Neostigmine Methylsulfate (Bloxiverz) 10 mg STK-MED ONCE 12/02/18 12:25 12/02/18 12:26 DC Non-Formulary Medication (Epoetin David (Procrit)) 10,000 unit WEEKLY 12/07/18 09:00 12/07/18 09:00 DC Ondansetron HCl (Zofran) 4 mg PRN Q6HRS PRN 12/02/18 13:00 12/03/18 12:59 DC Oxycodone/ Acetaminophen (Percocet 5/325) 1 tab PRN Q4HRS PRN 12/02/18 13:15 12/03/18 21:15 1 TAB Pantoprazole Sodium (Protonix) 40 mg DAILYAC 11/30/18 14:00 12/06/18 08:40 40 MG Piperacillin Sod/ Tazobactam Sod (Zosyn Per Pharmacy) 1 each PRN DAILY PRN 11/30/18 12:15 12/05/18 10:11 DC Piperacillin Sod/ Tazobactam Sod 2.25 gm/Sodium Chloride 50 ml @ 100 mls/hr Q8HRS 11/30/18 13:00 12/05/18 10:11 DC 12/05/18 06:00 100 MLS/HR Piperacillin Sod/ Tazobactam Sod 3.375 gm/Sodium Chloride 50 ml @ 100 mls/hr 1X ONCE 11/29/18 18:15 11/29/18 18:44 DC 11/29/18 18:45 100 MLS/HR Polyethylene Glycol (miraLAX PACKET) 17 gm PRN DAILY PRN 11/30/18 17:00 Prochlorperazine Edisylate (Compazine) 5 mg PACU PRN PRN 12/02/18 13:00 12/03/18 12:59 DC Propofol 20 ml @ As Directed STK-MED ONCE 12/02/18 09:06 12/02/18 09:07 DC Ringer's Solution 1,000 ml @ 30 mls/hr Q24H 12/02/18 12:51 12/03/18 00:50 DC Rocuronium [place] (Zemuron) 50 mg STK-MED ONCE 12/02/18 09:05 12/02/18 09:06 DC Sennosides (Senna) 8.6 mg BID 11/29/18 21:00 12/06/18 08:39 8.6 MG Sevelamer Carbonate (Renvela) 4,000 mg TIDWMEALS 11/30/18 08:00 12/06/18 08:36 4,000 MG Sevoflurane (Ultane) 90 ml STK-MED ONCE 12/02/18 12:27 12/02/18 12:28 DC Simvastatin (Zocor) 20 mg HS 11/29/18 21:00 12/05/18 20:57 20 MG Sodium Chloride 1,000 ml @ 400 mls/hr Q2H30M PRN 12/05/18 07:00 12/05/18 18:59 DC Sodium Cl/Sod Bicarb/Potass Cl/ PEG (Golytely) 4,000 ml 1X ONCE 11/30/18 18:00 11/30/18 18:01 DC 11/30/18 17:33 4,000 ML Vancomycin HCl (Vanco Per Pharmacy) 1 each PRN DAILY PRN 11/30/18 12:15 12/04/18 08:03 DC 12/03/18 15:53 1 EACH Vancomycin HCl (Vancomycin Random Level) 1 each 1X ONCE 11/30/18 16:00 11/30/18 16:01 DC 11/30/18 16:00 1 EACH Vancomycin HCl 500 mg/Sodium Chloride 100 ml @ 100 mls/hr QMWF 12/01/18 16:00 12/04/18 08:03 DC 12/03/18 16:53 100 MLS/HR Vancomycin HCl 2 gm/Sodium Chloride 500 ml @ 250 mls/hr 1X ONCE 11/29/18 19:00 11/29/18 20:59 DC 11/29/18 18:46 250 MLS/HR Vitamin B Complex/ Vitamin C (Johanna-Celia) 1 tab DAILY 11/30/18 09:00 12/06/18 08:39 1 TAB Vitamin D (Vitamin D3) 5,000 unit DAILY 11/30/18 09:00 12/06/18 08:39 5,000 UNIT Lab Laboratory Tests Test 12/05/18 17:07 12/05/18 20:31 12/06/18 04:00 12/06/18 07:58 Glucose (Fingerstick) 93 mg/dL (70-99) 145 mg/dL (70-99) 138 mg/dL (70-99) White Blood Count 9.4 x10^3/uL (4.0-11.0) Red Blood Count 2.58 x10^6/uL (4.30-5.70) Hemoglobin 7.1 g/dL (13.0-17.5) Hematocrit 22.0 % (39.0-53.0) Mean Corpuscular Volume 85 fL (79-100) Mean Corpuscular Hemoglobin 27 pg (25-35) Mean Corpuscular Hemoglobin Concent 32 g/dL (31-37) Red Cell Distribution Width 18.3 % (11.5-14.5) Platelet Count 347 x10^3/uL (140-400) Neutrophils (%) (Auto) 74 % (31-73) Lymphocytes (%) (Auto) 11 % (24-48) Monocytes (%) (Auto) 10 % (0-9) Eosinophils (%) (Auto) 6 % (0-3) Basophils (%) (Auto) 1 % (0-3) Neutrophils # (Auto) 6.9 x10^3uL (1.8-7.7) Lymphocytes # (Auto) 1.0 x10^3/uL (1.0-4.8) Monocytes # (Auto) 0.9 x10^3/uL (0.0-1.1) Eosinophils # (Auto) 0.5 x10^3/uL (0.0-0.7) Basophils # (Auto) 0.1 x10^3/uL (0.0-0.2) Sodium Level 139 mmol/L (136-145) Potassium Level 4.0 mmol/L (3.5-5.1) Chloride Level 101 mmol/L (98-107) Carbon Dioxide Level 26 mmol/L (21-32) Anion Gap 12 (6-14) Blood Urea Nitrogen 21 mg/dL (8-26) Creatinine 9.2 mg/dL (0.7-1.3) Estimated GFR (Cockcroft-Gault) 7.9 BUN/Creatinine Ratio 2 (6-20) Glucose Level 86 mg/dL (70-99) Calcium Level 8.9 mg/dL (8.5-10.1) Total Bilirubin 0.2 mg/dL (0.2-1.0) Aspartate Amino Transf (AST/SGOT) 16 U/L (15-37) Alanine Aminotransferase (ALT/SGPT) 52 U/L (16-63) Alkaline Phosphatase 119 U/L (46-116) Total Protein 6.5 g/dL (6.4-8.2) Albumin 2.0 g/dL (3.4-5.0) Albumin/Globulin Ratio 0.4 (1.0-1.7) Test 12/06/18 11:58 Glucose (Fingerstick) 218 mg/dL (70-99) Results All relevant outside records, renal labs, imaging studies, telemetry/EKG's were reviewed. GERARDO NESS MD Dec 06, 2018 13:21
--- NOTE | 2018-12-06 14:33 | PDOC ---
SURGICAL PROGRESS NOTE Subjective Pt feels better, mild soreness, yi PO Vital Signs Vital Signs Date Time Temp Pulse Resp B/P (MAP) Pulse Ox O2 Delivery O2 Flow Rate FiO2 12/06/18 11:00 98.1 78 20 144/88 (106) 100 Nasal Cannula 2.0 98.1 I&O Intake and Output 12/06/18 07:00 Intake Total 1290 ml Balance 1290 ml Intake Oral 1240 ml IV Total 50 ml General: Alert, Oriented X3, Cooperative, No acute distress Abdomen: Soft, No tenderness Labs Laboratory Tests Test 12/04/18 17:14 12/04/18 23:14 12/05/18 03:00 12/05/18 09:02 Glucose (Fingerstick) 121 mg/dL (70-99) 338 mg/dL (70-99) 78 mg/dL (70-99) White Blood Count 12.8 x10^3/uL (4.0-11.0) Red Blood Count 2.60 x10^6/uL (4.30-5.70) Hemoglobin 7.1 g/dL (13.0-17.5) Hematocrit 22.0 % (39.0-53.0) Mean Corpuscular Volume 85 fL (79-100) Mean Corpuscular Hemoglobin 27 pg (25-35) Mean Corpuscular Hemoglobin Concent 32 g/dL (31-37) Red Cell Distribution Width 17.6 % (11.5-14.5) Platelet Count 280 x10^3/uL (140-400) Neutrophils (%) (Auto) 78 % (31-73) Lymphocytes (%) (Auto) 8 % (24-48) Monocytes (%) (Auto) 8 % (0-9) Eosinophils (%) (Auto) 5 % (0-3) Basophils (%) (Auto) 1 % (0-3) Neutrophils # (Auto) 10.0 x10^3uL (1.8-7.7) Lymphocytes # (Auto) 1.0 x10^3/uL (1.0-4.8) Monocytes # (Auto) 1.0 x10^3/uL (0.0-1.1) Eosinophils # (Auto) 0.7 x10^3/uL (0.0-0.7) Basophils # (Auto) 0.1 x10^3/uL (0.0-0.2) Sodium Level 136 mmol/L (136-145) Potassium Level 4.2 mmol/L (3.5-5.1) Chloride Level 96 mmol/L (98-107) Carbon Dioxide Level 30 mmol/L (21-32) Anion Gap 10 (6-14) Blood Urea Nitrogen 35 mg/dL (8-26) Creatinine 11.8 mg/dL (0.7-1.3) Estimated GFR (Cockcroft-Gault) 5.9 BUN/Creatinine Ratio 3 (6-20) Glucose Level 219 mg/dL (70-99) Calcium Level 8.3 mg/dL (8.5-10.1) Iron Level 21 ug/dL (65-175) Total Iron Binding Capacity 156 ug/dL (250-450) Iron Saturation 13 % (15-34) Ferritin 1262 ng/mL (26-388) Total Bilirubin 0.3 mg/dL (0.2-1.0) Aspartate Amino Transf (AST/SGOT) 10 U/L (15-37) Alanine Aminotransferase (ALT/SGPT) 68 U/L (16-63) Alkaline Phosphatase 132 U/L (46-116) Total Protein 6.3 g/dL (6.4-8.2) Albumin 1.8 g/dL (3.4-5.0) Albumin/Globulin Ratio 0.4 (1.0-1.7) Test 12/05/18 10:56 12/05/18 17:07 12/05/18 20:31 12/06/18 04:00 Glucose (Fingerstick) 82 mg/dL (70-99) 93 mg/dL (70-99) 145 mg/dL (70-99) White Blood Count 9.4 x10^3/uL (4.0-11.0) Red Blood Count 2.58 x10^6/uL (4.30-5.70) Hemoglobin 7.1 g/dL (13.0-17.5) Hematocrit 22.0 % (39.0-53.0) Mean Corpuscular Volume 85 fL (79-100) Mean Corpuscular Hemoglobin 27 pg (25-35) Mean Corpuscular Hemoglobin Concent 32 g/dL (31-37) Red Cell Distribution Width 18.3 % (11.5-14.5) Platelet Count 347 x10^3/uL (140-400) Neutrophils (%) (Auto) 74 % (31-73) Lymphocytes (%) (Auto) 11 % (24-48) Monocytes (%) (Auto) 10 % (0-9) Eosinophils (%) (Auto) 6 % (0-3) Basophils (%) (Auto) 1 % (0-3) Neutrophils # (Auto) 6.9 x10^3uL (1.8-7.7) Lymphocytes # (Auto) 1.0 x10^3/uL (1.0-4.8) Monocytes # (Auto) 0.9 x10^3/uL (0.0-1.1) Eosinophils # (Auto) 0.5 x10^3/uL (0.0-0.7) Basophils # (Auto) 0.1 x10^3/uL (0.0-0.2) Sodium Level 139 mmol/L (136-145) Potassium Level 4.0 mmol/L (3.5-5.1) Chloride Level 101 mmol/L (98-107) Carbon Dioxide Level 26 mmol/L (21-32) Anion Gap 12 (6-14) Blood Urea Nitrogen 21 mg/dL (8-26) Creatinine 9.2 mg/dL (0.7-1.3) Estimated GFR (Cockcroft-Gault) 7.9 BUN/Creatinine Ratio 2 (6-20) Glucose Level 86 mg/dL (70-99) Calcium Level 8.9 mg/dL (8.5-10.1) Total Bilirubin 0.2 mg/dL (0.2-1.0) Aspartate Amino Transf (AST/SGOT) 16 U/L (15-37) Alanine Aminotransferase (ALT/SGPT) 52 U/L (16-63) Alkaline Phosphatase 119 U/L (46-116) Total Protein 6.5 g/dL (6.4-8.2) Albumin 2.0 g/dL (3.4-5.0) Albumin/Globulin Ratio 0.4 (1.0-1.7) Test 12/06/18 07:58 12/06/18 11:58 Glucose (Fingerstick) 138 mg/dL (70-99) 218 mg/dL (70-99) Laboratory Tests Test 12/05/18 17:07 12/05/18 20:31 12/06/18 04:00 12/06/18 07:58 Glucose (Fingerstick) 93 mg/dL (70-99) 145 mg/dL (70-99) 138 mg/dL (70-99) White Blood Count 9.4 x10^3/uL (4.0-11.0) Red Blood Count 2.58 x10^6/uL (4.30-5.70) Hemoglobin 7.1 g/dL (13.0-17.5) Hematocrit 22.0 % (39.0-53.0) Mean Corpuscular Volume 85 fL (79-100) Mean Corpuscular Hemoglobin 27 pg (25-35) Mean Corpuscular Hemoglobin Concent 32 g/dL (31-37) Red Cell Distribution Width 18.3 % (11.5-14.5) Platelet Count 347 x10^3/uL (140-400) Neutrophils (%) (Auto) 74 % (31-73) Lymphocytes (%) (Auto) 11 % (24-48) Monocytes (%) (Auto) 10 % (0-9) Eosinophils (%) (Auto) 6 % (0-3) Basophils (%) (Auto) 1 % (0-3) Neutrophils # (Auto) 6.9 x10^3uL (1.8-7.7) Lymphocytes # (Auto) 1.0 x10^3/uL (1.0-4.8) Monocytes # (Auto) 0.9 x10^3/uL (0.0-1.1) Eosinophils # (Auto) 0.5 x10^3/uL (0.0-0.7) Basophils # (Auto) 0.1 x10^3/uL (0.0-0.2) Sodium Level 139 mmol/L (136-145) Potassium Level 4.0 mmol/L (3.5-5.1) Chloride Level 101 mmol/L (98-107) Carbon Dioxide Level 26 mmol/L (21-32) Anion Gap 12 (6-14) Blood Urea Nitrogen 21 mg/dL (8-26) Creatinine 9.2 mg/dL (0.7-1.3) Estimated GFR (Cockcroft-Gault) 7.9 BUN/Creatinine Ratio 2 (6-20) Glucose Level 86 mg/dL (70-99) Calcium Level 8.9 mg/dL (8.5-10.1) Total Bilirubin 0.2 mg/dL (0.2-1.0) Aspartate Amino Transf (AST/SGOT) 16 U/L (15-37) Alanine Aminotransferase (ALT/SGPT) 52 U/L (16-63) Alkaline Phosphatase 119 U/L (46-116) Total Protein 6.5 g/dL (6.4-8.2) Albumin 2.0 g/dL (3.4-5.0) Albumin/Globulin Ratio 0.4 (1.0-1.7) Test 12/06/18 11:58 Glucose (Fingerstick) 218 mg/dL (70-99) Problem List Problems Medical Problems: (1) Abnormal EKG Status: Acute (2) Elevated troponin Status: Acute (3) End stage renal disease Status: Acute (4) Fever Status: Acute Assessment/Plan s/p VIH adat to reg, cont supportive care. JENNIFER GREEN MD Dec 06, 2018 14:33
[2018-12-06 15:00] VITALS: BP 126/82
--- NOTE | 2018-12-06 15:21 | PDOC ---
PROGRESS NOTES Chief Complaint Chief Complaint Sepsis POA. Procalcitonin 94.62. ? line infection -resolved GPC bacteremia (3 of 4 bottles) POA 11/29 with MSSA present sensitivities noted Leukocytosis - better Transaminitis ? sepsis - increasing Fever - curve improving PCN allergy - nausea. Has tolerated Zosyn without problem Constipation Acute diastolic CHF CKD on HD (s/p HDC 11/26; small neck wound w/ stitch in place) Malfunctioning peritoneal catheter status post repositioning and hernia repair on 12/02/2018 Anemia. s/p iron and PRBCs 2 units evaluated by hematology and added Aranesp to his regimen Diabetes insulin requiring Plan: catheter to be discontinued today will follow results of repeat blood cultures new catheter on saturday once blood cultures have established that bacteremia is controlled continue broad spectrum antibiotics as per ID road consultant. History of Present Illness History of Present Illness Patient with no acute events reported overnight. Discussed plan of care, dialysis catheter removed, no fever or chills reported. Vitals Vitals Vital Signs Date Time Temp Pulse Resp B/P (MAP) Pulse Ox O2 Delivery O2 Flow Rate FiO2 12/06/18 11:00 98.1 78 20 144/88 (106) 100 Nasal Cannula 2.0 98.1 Physical Exam Physical Exam GENERAL: Propped up in bed, alert, NAD HEENT: Pupils are equally round, reactive. Normal conjunctivae. Oral cavity: Pharynx pink and moist. NECK: Supple. LUNGS: Clear to auscultation. HEART: S1 and S2. ABDOMEN: Mild distension. Dressed. PD in place -clean ; no Scrotal bulge EXTREMITIES: No gross edema or cyanosis. SKIN: Warm without generalized rash. NEUROLOGIC: Alert and oriented x 3. Right-sided tunneled HD catheter now out General: Alert, Oriented X3, Cooperative, No acute distress Heart: Regular rate Lungs: Clear Abdomen: Soft, No tenderness Extremities: No clubbing, No cyanosis Skin: No breakdown Labs LABS Laboratory Tests Test 12/05/18 17:07 12/05/18 20:31 12/06/18 04:00 12/06/18 07:58 Glucose (Fingerstick) 93 mg/dL (70-99) 145 mg/dL (70-99) 138 mg/dL (70-99) White Blood Count 9.4 x10^3/uL (4.0-11.0) Red Blood Count 2.58 x10^6/uL (4.30-5.70) Hemoglobin 7.1 g/dL (13.0-17.5) Hematocrit 22.0 % (39.0-53.0) Mean Corpuscular Volume 85 fL (79-100) Mean Corpuscular Hemoglobin 27 pg (25-35) Mean Corpuscular Hemoglobin Concent 32 g/dL (31-37) Red Cell Distribution Width 18.3 % (11.5-14.5) Platelet Count 347 x10^3/uL (140-400) Neutrophils (%) (Auto) 74 % (31-73) Lymphocytes (%) (Auto) 11 % (24-48) Monocytes (%) (Auto) 10 % (0-9) Eosinophils (%) (Auto) 6 % (0-3) Basophils (%) (Auto) 1 % (0-3) Neutrophils # (Auto) 6.9 x10^3uL (1.8-7.7) Lymphocytes # (Auto) 1.0 x10^3/uL (1.0-4.8) Monocytes # (Auto) 0.9 x10^3/uL (0.0-1.1) Eosinophils # (Auto) 0.5 x10^3/uL (0.0-0.7) Basophils # (Auto) 0.1 x10^3/uL (0.0-0.2) Sodium Level 139 mmol/L (136-145) Potassium Level 4.0 mmol/L (3.5-5.1) Chloride Level 101 mmol/L (98-107) Carbon Dioxide Level 26 mmol/L (21-32) Anion Gap 12 (6-14) Blood Urea Nitrogen 21 mg/dL (8-26) Creatinine 9.2 mg/dL (0.7-1.3) Estimated GFR (Cockcroft-Gault) 7.9 BUN/Creatinine Ratio 2 (6-20) Glucose Level 86 mg/dL (70-99) Calcium Level 8.9 mg/dL (8.5-10.1) Total Bilirubin 0.2 mg/dL (0.2-1.0) Aspartate Amino Transf (AST/SGOT) 16 U/L (15-37) Alanine Aminotransferase (ALT/SGPT) 52 U/L (16-63) Alkaline Phosphatase 119 U/L (46-116) Total Protein 6.5 g/dL (6.4-8.2) Albumin 2.0 g/dL (3.4-5.0) Albumin/Globulin Ratio 0.4 (1.0-1.7) Test 12/06/18 11:58 Glucose (Fingerstick) 218 mg/dL (70-99) Review of Systems Review of Systems Pertinent as per history of present illness otherwise 14 point review of system is negative Assessment and Plan Assessmemt and Plan Problems Medical Problems: (1) Abnormal EKG Status: Acute (2) Elevated troponin Status: Acute (3) End stage renal disease Status: Acute (4) Fever Status: Acute Comment Review of Relevant I have reviewed the following items javy (where applicable) has been applied. Labs Laboratory Tests Test 12/04/18 17:14 12/04/18 23:14 12/05/18 03:00 12/05/18 09:02 Glucose (Fingerstick) 121 mg/dL (70-99) 338 mg/dL (70-99) 78 mg/dL (70-99) White Blood Count 12.8 x10^3/uL (4.0-11.0) Red Blood Count 2.60 x10^6/uL (4.30-5.70) Hemoglobin 7.1 g/dL (13.0-17.5) Hematocrit 22.0 % (39.0-53.0) Mean Corpuscular Volume 85 fL (79-100) Mean Corpuscular Hemoglobin 27 pg (25-35) Mean Corpuscular Hemoglobin Concent 32 g/dL (31-37) Red Cell Distribution Width 17.6 % (11.5-14.5) Platelet Count 280 x10^3/uL (140-400) Neutrophils (%) (Auto) 78 % (31-73) Lymphocytes (%) (Auto) 8 % (24-48) Monocytes (%) (Auto) 8 % (0-9) Eosinophils (%) (Auto) 5 % (0-3) Basophils (%) (Auto) 1 % (0-3) Neutrophils # (Auto) 10.0 x10^3uL (1.8-7.7) Lymphocytes # (Auto) 1.0 x10^3/uL (1.0-4.8) Monocytes # (Auto) 1.0 x10^3/uL (0.0-1.1) Eosinophils # (Auto) 0.7 x10^3/uL (0.0-0.7) Basophils # (Auto) 0.1 x10^3/uL (0.0-0.2) Sodium Level 136 mmol/L (136-145) Potassium Level 4.2 mmol/L (3.5-5.1) Chloride Level 96 mmol/L (98-107) Carbon Dioxide Level 30 mmol/L (21-32) Anion Gap 10 (6-14) Blood Urea Nitrogen 35 mg/dL (8-26) Creatinine 11.8 mg/dL (0.7-1.3) Estimated GFR (Cockcroft-Gault) 5.9 BUN/Creatinine Ratio 3 (6-20) Glucose Level 219 mg/dL (70-99) Calcium Level 8.3 mg/dL (8.5-10.1) Iron Level 21 ug/dL (65-175) Total Iron Binding Capacity 156 ug/dL (250-450) Iron Saturation 13 % (15-34) Ferritin 1262 ng/mL (26-388) Total Bilirubin 0.3 mg/dL (0.2-1.0) Aspartate Amino Transf (AST/SGOT) 10 U/L (15-37) Alanine Aminotransferase (ALT/SGPT) 68 U/L (16-63) Alkaline Phosphatase 132 U/L (46-116) Total Protein 6.3 g/dL (6.4-8.2) Albumin 1.8 g/dL (3.4-5.0) Albumin/Globulin Ratio 0.4 (1.0-1.7) Test 12/05/18 10:56 12/05/18 17:07 12/05/18 20:31 12/06/18 04:00 Glucose (Fingerstick) 82 mg/dL (70-99) 93 mg/dL (70-99) 145 mg/dL (70-99) White Blood Count 9.4 x10^3/uL (4.0-11.0) Red Blood Count 2.58 x10^6/uL (4.30-5.70) Hemoglobin 7.1 g/dL (13.0-17.5) Hematocrit 22.0 % (39.0-53.0) Mean Corpuscular Volume 85 fL (79-100) Mean Corpuscular Hemoglobin 27 pg (25-35) Mean Corpuscular Hemoglobin Concent 32 g/dL (31-37) Red Cell Distribution Width 18.3 % (11.5-14.5) Platelet Count 347 x10^3/uL (140-400) Neutrophils (%) (Auto) 74 % (31-73) Lymphocytes (%) (Auto) 11 % (24-48) Monocytes (%) (Auto) 10 % (0-9) Eosinophils (%) (Auto) 6 % (0-3) Basophils (%) (Auto) 1 % (0-3) Neutrophils # (Auto) 6.9 x10^3uL (1.8-7.7) Lymphocytes # (Auto) 1.0 x10^3/uL (1.0-4.8) Monocytes # (Auto) 0.9 x10^3/uL (0.0-1.1) Eosinophils # (Auto) 0.5 x10^3/uL (0.0-0.7) Basophils # (Auto) 0.1 x10^3/uL (0.0-0.2) Sodium Level 139 mmol/L (136-145) Potassium Level 4.0 mmol/L (3.5-5.1) Chloride Level 101 mmol/L (98-107) Carbon Dioxide Level 26 mmol/L (21-32) Anion Gap 12 (6-14) Blood Urea Nitrogen 21 mg/dL (8-26) Creatinine 9.2 mg/dL (0.7-1.3) Estimated GFR (Cockcroft-Gault) 7.9 BUN/Creatinine Ratio 2 (6-20) Glucose Level 86 mg/dL (70-99) Calcium Level 8.9 mg/dL (8.5-10.1) Total Bilirubin 0.2 mg/dL (0.2-1.0) Aspartate Amino Transf (AST/SGOT) 16 U/L (15-37) Alanine Aminotransferase (ALT/SGPT) 52 U/L (16-63) Alkaline Phosphatase 119 U/L (46-116) Total Protein 6.5 g/dL (6.4-8.2) Albumin 2.0 g/dL (3.4-5.0) Albumin/Globulin Ratio 0.4 (1.0-1.7) Test 12/06/18 07:58 12/06/18 11:58 Glucose (Fingerstick) 138 mg/dL (70-99) 218 mg/dL (70-99) Laboratory Tests Test 12/05/18 17:07 12/05/18 20:31 12/06/18 04:00 12/06/18 07:58 Glucose (Fingerstick) 93 mg/dL (70-99) 145 mg/dL (70-99) 138 mg/dL (70-99) White Blood Count 9.4 x10^3/uL (4.0-11.0) Red Blood Count 2.58 x10^6/uL (4.30-5.70) Hemoglobin 7.1 g/dL (13.0-17.5) Hematocrit 22.0 % (39.0-53.0) Mean Corpuscular Volume 85 fL (79-100) Mean Corpuscular Hemoglobin 27 pg (25-35) Mean Corpuscular Hemoglobin Concent 32 g/dL (31-37) Red Cell Distribution Width 18.3 % (11.5-14.5) Platelet Count 347 x10^3/uL (140-400) Neutrophils (%) (Auto) 74 % (31-73) Lymphocytes (%) (Auto) 11 % (24-48) Monocytes (%) (Auto) 10 % (0-9) Eosinophils (%) (Auto) 6 % (0-3) Basophils (%) (Auto) 1 % (0-3) Neutrophils # (Auto) 6.9 x10^3uL (1.8-7.7) Lymphocytes # (Auto) 1.0 x10^3/uL (1.0-4.8) Monocytes # (Auto) 0.9 x10^3/uL (0.0-1.1) Eosinophils # (Auto) 0.5 x10^3/uL (0.0-0.7) Basophils # (Auto) 0.1 x10^3/uL (0.0-0.2) Sodium Level 139 mmol/L (136-145) Potassium Level 4.0 mmol/L (3.5-5.1) Chloride Level 101 mmol/L (98-107) Carbon Dioxide Level 26 mmol/L (21-32) Anion Gap 12 (6-14) Blood Urea Nitrogen 21 mg/dL (8-26) Creatinine 9.2 mg/dL (0.7-1.3) Estimated GFR (Cockcroft-Gault) 7.9 BUN/Creatinine Ratio 2 (6-20) Glucose Level 86 mg/dL (70-99) Calcium Level 8.9 mg/dL (8.5-10.1) Total Bilirubin 0.2 mg/dL (0.2-1.0) Aspartate Amino Transf (AST/SGOT) 16 U/L (15-37) Alanine Aminotransferase (ALT/SGPT) 52 U/L (16-63) Alkaline Phosphatase 119 U/L (46-116) Total Protein 6.5 g/dL (6.4-8.2) Albumin 2.0 g/dL (3.4-5.0) Albumin/Globulin Ratio 0.4 (1.0-1.7) Test 12/06/18 11:58 Glucose (Fingerstick) 218 mg/dL (70-99) Microbiology 12/04/18 Blood Culture - Preliminary, Resulted NO GROWTH AFTER 2 DAYS Medications Current Medications Vancomycin HCl (Vanco Per Pharmacy) 1 each 1X ONCE MC ; Start 11/29/18 at 18:15 ; Stop 11/29/18 at 18:16; Status Cancel Piperacillin Sod/ Tazobactam Sod 3.375 gm/Sodium Chloride 50 ml @ 100 mls/hr 1X ONCE IV Last administered on 11/29/18at 18:45; Start 11/29/18 at 18:15; Stop 11/29/18 at 18:44; Status DC Ondansetron HCl (Zofran) 4 mg 1X ONCE IV Last administered on 11/29/18at 18:43 ; Start 11/29/18 at 18:15; Stop 11/29/18 at 18:23; Status DC Vancomycin HCl 2 gm/Sodium Chloride 500 ml @ 250 mls/hr 1X ONCE IV Last administered on 11/29/18at 18:46; Start 11/29/18 at 19:00; Stop 11/29/18 at 20:59 ; Status DC Iron Sucrose 200 mg/Sodium Chloride 110 ml @ 55 mls/hr 1X ONCE IV Last administered on 11/29/18at 22:20; Start 11/29/18 at 19:15; Stop 11/29/18 at 21:14 ; Status DC Ondansetron HCl (Zofran) 4 mg PRN Q8HRS PRN IV NAUSEA/VOMITING; Start 11/29/18 at 19:30; Stop 11/29/18 at 19:36; Status DC Fentanyl Citrate (Fentanyl 2ml Vial) 50 mcg PRN Q1HR PRN IV PAIN Last administered on 11/30/18 16:23; Start 11/29/18 at 19:30; Stop 11/30/18 at 19:29 ; Status DC Acetaminophen (Tylenol) 650 mg PRN Q4HRS PRN PO FEVER Last administered on 11/30 17:35; Start 11/29/18 at 19:30; Stop 11/30/18 at 19:29; Status DC Ondansetron HCl (Zofran) 4 mg PRN Q6HRS PRN IV NAUSEA/VOMITING Last administered on 12/04/18 17:52; Start 11/29/18 at 19:45 Amlodipine Besylate (Norvasc) 10 mg DAILY PO Last administered on 12/06/18 08: 37; Start 11/30/18 at 09:00 Clonidine HCl (Catapres) 0.2 mg BID PO Last administered on 12/06/18 08:39; Start 11/29/18 at 21:00 Docusate Sodium (Colace) 100 mg BID PO Last administered on 12/06/18 08:39; Start 11/29/18 at 21:00 Furosemide (Lasix) 80 mg BID92 PO Last administered on 12/06/18 12:19; Start 11/29/18 at 20:00 Insulin Glargine (Lantus) 32 units HS SQ Last administered on 12/05/18 21:17; Start 11/29/18 at 21:00 Lisinopril (Prinivil) 40 mg BID PO Last administered on 12/06/18 08:40; Start 11/29/18 at 21:00 Sevelamer Carbonate (Renvela) 4,000 mg TIDWMEALS PO Last administered on 08:36; Start 11/30/18 at 08:00 Calcitriol (Rocaltrol) 0.25 mcg DAILY PO Last administered on 12/06/18 08:39; Start 11/30/18 at 09:00 Carvedilol (Coreg) 12.5 mg BIDWMEALS PO Last administered on 12/06/18 08:39; Start 11/30/18 at 08:00 Vitamin D (Vitamin D3) 5,000 unit DAILY PO Last administered on 12/06/18at 08:39 ; Start 11/30/18 at 09:00 Cinacalcet (Sensipar) 60 mg DAILY PO Last administered on 12/06/18 08:37; Start 11/30/18 at 09:00 Polyethylene Glycol (miraLAX PACKET) 17 gm DAILY PO Last administered on 08:36; Start 11/30/18 at 09:00 Sennosides (Senna) 8.6 mg BID PO Last administered on 12/06/18 08:39; Start at 21:00 Simvastatin (Zocor) 20 mg HS PO Last administered on 12/05/18at 20:57; Start at 21:00 Vitamin B Complex/ Vitamin C (Johanna-Celia) 1 tab DAILY PO Last administered on 08:39; Start 11/30/18 at 09:00 Insulin Human Lispro (HumaLOG) 0-9 UNITS TIDWMEALS SQ Last administered on 11/29at 22:44; Start 11/30/18 at 08:00; Stop 11/30/18 at 10:28; Status DC Dextrose (Dextrose 50%-Water Syringe) 12.5 gm PRN Q15MIN PRN IV SEE COMMENTS; Start 11/29/18 at 19:45 Aspirin (Anshul Aspirin) 325 mg 1X ONCE PO Last administered on 11/29/18at 20:19 ; Start 11/29/18 at 19:45; Stop 11/29/18 at 19:46; Status DC Labetalol HCl (Normodyne Iv Push) 10 mg PRN Q2HR PRN IVP HYPERTENSION, SEE COMMENTS Last administered on 12/03/18at 04:25; Start 11/30/18 at 04:00 Sodium Chloride 1,000 ml @ 100 mls/hr 1X ONCE IV Last administered on at 04:17; Start 11/30/18 at 04:30; Stop 11/30/18 at 05:57; Status DC Darbepoetin David (Aranesp) 100 mcg 1X ONCE SQ Last administered on 11/30/18at 06:06; Start 11/30/18 at 07:00; Stop 11/30/18 at 07:01; Status DC Sodium Chloride 1,000 ml @ 1,000 mls/hr Q1H PRN IV hypotension; Start 11/30/18 at 07:34; Stop 11/30/18 at 13:39; Status DC Albumin Human 200 ml @ 200 mls/hr 1X PRN PRN IV Hypotension; Start 11/30/18 at 07:45; Stop 11/30/18 at 13:44; Status DC Diphenhydramine HCl (Benadryl) 25 mg 1X PRN PRN IV ITCHING; Start 11/30/18 at 07:45; Stop 12/01/18 at 07:44; Status DC Sodium Chloride 1,000 ml @ 400 mls/hr Q2H30M PRN IV PATENCY; Start 11/30/18 at 07:34; Stop 11/30/18 at 19:33; Status DC Info (PHARMACY MONITORING -- do not chart) 1 each PRN DAILY PRN MC SEE COMMENTS ; Start 11/30/18 at 07:45; Stop 12/03/18 at 15:49; Status DC Info (PHARMACY MONITORING -- do not chart) 1 each PRN DAILY PRN MC SEE COMMENTS ; Start 11/30/18 at 07:45; Status UNV Darbepoetin David (Aranesp) 60 mcg WEEKLYHS SQ ; Start 11/30/18 at 21:00; Stop at 21:00; Status DC Darbepoetin David (Aranesp) 60 mcg WEEKLYHS SQ ; Start 12/07/18 at 21:00 Insulin Human Lispro (HumaLOG) 0-9 UNITS TIDWMEALS SQ Last administered on 12/06at 12:21; Start 11/30/18 at 12:00 Dextrose (Dextrose 50%-Water Syringe) 12.5 gm PRN Q15MIN PRN IV SEE COMMENTS; Start 11/30/18 at 10:30; Status UNV Vancomycin HCl (Vanco Per Pharmacy) 1 each PRN DAILY PRN MC SEE COMMENTS Last administered on 12/03/18at 15:53; Start 11/30/18 at 12:15; Stop 12/04/18 at 08:03 ; Status DC Piperacillin Sod/ Tazobactam Sod (Zosyn Per Pharmacy) 1 each PRN DAILY PRN MC SEE COMMENTS; Start 11/30/18 at 12:15; Stop 12/05/18 at 10:11; Status DC Piperacillin Sod/ Tazobactam Sod 2.25 gm/Sodium Chloride 50 ml @ 100 mls/hr Q8HRS IV Last administered on 12/05/18at 06:00; Start 11/30/18 at 13:00; Stop at 10:11; Status DC Calcium Carbonate/ Glycine (Tums) 500 mg PRN BID PRN PO INDIGESTION; Start at 13:30 Albuterol Sulfate (Ventolin Neb Soln) 2.5 mg PRN Q6HRS PRN NEB SHORTNESS OF BREATH; Start 11/30/18 at 13:45 Non-Formulary Medication (Epoetin David (Procrit)) 10,000 unit WEEKLY IJ ; Start 12/07/18 at 09:00; Stop 12/07/18 at 09:00; Status DC Fluticasone Propionate (Flonase) 2 spray DAILY NS Last administered on at 09:28; Start 11/30/18 at 14:00 Pantoprazole Sodium (Protonix) 40 mg DAILYAC PO Last administered on 12/06/18at 08:40; Start 11/30/18 at 14:00 Vancomycin HCl (Vancomycin Random Level) 1 each 1X ONCE MC Last administered on 11/30/18at 16:00; Start 11/30/18 at 16:00; Stop 11/30/18 at 16:01; Status DC Sodium Cl/Sod Bicarb/Potass Cl/ PEG (Golytely) 4,000 ml 1X ONCE PO Last administered on 11/30/18at 17:33; Start 11/30/18 at 18:00; Stop 11/30/18 at 18:01 ; Status DC Polyethylene Glycol (miraLAX PACKET) 17 gm PRN DAILY PRN PO CONSTIPATION; Start 11/30/18 at 17:00 Acetaminophen (Tylenol) 650 mg PRN Q4HRS PRN PO FEVER Last administered on 12/05at 18:06; Start 11/30/18 at 20:15 Vancomycin HCl 500 mg/Sodium Chloride 100 ml @ 100 mls/hr QMWF IV Last administered on 12/03/18at 16:53; Start 12/01/18 at 16:00; Stop 12/04/18 at 08:03 ; Status DC Sodium Chloride 1,000 ml @ 1,000 mls/hr Q1H PRN IV hypotension; Start 12/01/18 at 07:00; Stop 12/01/18 at 18:00; Status DC Sodium Chloride 1,000 ml @ 400 mls/hr Q2H30M PRN IV PATENCY; Start 12/01/18 at 07:00; Stop 12/01/18 at 18:59; Status DC Info (PHARMACY MONITORING -- do not chart) 1 each PRN DAILY PRN MC SEE COMMENTS ; Start 12/01/18 at 10:30; Status UNV Info (PHARMACY MONITORING -- do not chart) 1 each PRN DAILY PRN MC SEE COMMENTS ; Start 12/01/18 at 10:30; Status UNV Heparin Sodium (Porcine) 5000 unit/Sodium Chloride 505 ml @ 505 mls/hr 1X ONCE IRR Last administered on 12/02/18at 11:05; Start 12/02/18 at 07:00; Stop at 07:59; Status DC Bupivacaine HCl/ Epinephrine Bitart (Sensorcain-Mpf Epi 0.5%-1:[id number]) 30 ml STK -MED ONCE .ROUTE Last administered on 12/02/18at 11:05; Start 12/02/18 at 07:36 ; Stop 12/02/18 at 07:37; Status DC Fentanyl Citrate (Fentanyl 2ml Vial) 100 mcg STK-MED ONCE .ROUTE ; Start at 09:05; Stop 12/02/18 at 09:06; Status DC Rocuronium [place] (Zemuron) 50 mg STK-MED ONCE .ROUTE ; Start 12/02/18 at 09:05 ; Stop 12/02/18 at 09:06; Status DC Lidocaine HCl (Lidocaine Pf 2% Vial) 5 ml STK-MED ONCE .ROUTE ; Start 12/02/18 at 09:05; Stop 12/02/18 at 09:06; Status DC Propofol 20 ml @ As Directed STK-MED ONCE IV ; Start 12/02/18 at 09:06; Stop at 09:07; Status DC Dexamethasone Sodium Phosphate (Decadron) 20 mg STK-MED ONCE .ROUTE ; Start at 09:06; Stop 12/02/18 at 09:07; Status DC Ondansetron HCl (Zofran) 4 mg STK-MED ONCE .ROUTE ; Start 12/02/18 at 09:06; Stop 12/02/18 at 09:07; Status DC Insulin Human Lispro (HumaLOG) 10 units 1X ONCE SQ ; Start 12/02/18 at 09:45; Stop 12/02/18 at 09:46; Status DC Levofloxacin/ Dextrose 100 ml @ As Directed STK-MED ONCE IV ; Start 12/02/18 at 10:46; Stop 12/02/18 at 10:47; Status DC Metoclopramide HCl (Reglan Vial) 10 mg STK-MED ONCE .ROUTE ; Start 12/02/18 at 10:59; Stop 12/02/18 at 11:00; Status DC Neostigmine Methylsulfate (Bloxiverz) 10 mg STK-MED ONCE .ROUTE ; Start at 12:25; Stop 12/02/18 at 12:26; Status DC Glycopyrrolate (Robinul) 1 mg STK-MED ONCE .ROUTE ; Start 12/02/18 at 12:25; Stop 12/02/18 at 12:26; Status DC Sevoflurane (Ultane) 90 ml STK-MED ONCE IH ; Start 12/02/18 at 12:27; Stop 12/02 at 12:28; Status DC Ondansetron HCl (Zofran) 4 mg PRN Q6HRS PRN IV NAUSEA/VOMITING; Start 12/02/18 at 13:00; Stop 12/03/18 at 12:59; Status DC Fentanyl Citrate (Fentanyl 2ml Vial) 25 mcg PRN Q5MIN PRN IV MILD PAIN; Start 12/02/18 at 13:00; Stop 12/02/18 at 20:24; Status DC Fentanyl Citrate (Fentanyl 2ml Vial) 50 mcg PRN Q5MIN PRN IV MODERATE TO SEVERE PAIN Last administered on 12/02/18at 13:46; Start 12/02/18 at 13:00; Stop 12/02/18 at 20:24; Status DC Morphine Sulfate (Morphine Sulfate) 1 mg PRN Q10MIN PRN IV SEVERE PAIN; Start 12/02/18 at 13:00; Stop 12/02/18 at 20:24; Status DC Ringer's Solution 1,000 ml @ 30 mls/hr Q24H IV ; Start 12/02/18 at 12:51; Stop 12/03/18 at 00:50; Status DC Lidocaine HCl (Xylocaine-Mpf 1% 2ml Vial) 2 ml 1X PRN PRN ID IV START; Start at 13:00; Stop 12/03/18 at 12:59; Status DC Hydromorphone HCl (Dilaudid) 0.5 mg PRN Q10MIN PRN IV SEV PAIN, Second choice Last administered on 12/02/18at 16:52; Start 12/02/18 at 13:00; Stop 12/03/18 at 12:59; Status DC Prochlorperazine Edisylate (Compazine) 5 mg PACU PRN PRN IV NAUSEA, MRX1; Start 12/02/18 at 13:00; Stop 12/03/18 at 12:59; Status DC Sodium Chloride 1,000 ml @ 100 mls/hr Q10H IV Last administered on 12/02/18at 13:04; Start 12/02/18 at 10:45; Stop 12/03/18 at 10:14; Status DC Hydromorphone HCl (Dilaudid) 1 mg PRN Q4HRS PRN IV pain Last administered on at 18:31; Start 12/02/18 at 13:15; Stop 12/02/18 at 20:24; Status DC Oxycodone/ Acetaminophen (Percocet 5/325) 1 tab PRN Q4HRS PRN PO PAIN Last administered on 12/03/18at 21:15; Start 12/02/18 at 13:15 Levofloxacin/ Dextrose 100 ml @ 100 mls/hr 1X ONCE IV ; Start 12/02/18 at 10: 45; Stop 12/02/18 at 13:23; Status DC Lactobacillus Rhamnosus (Culturelle) 1 cap BID PO Last administered on at 08:40; Start 12/02/18 at 21:00 Hydromorphone HCl (Dilaudid) 1 mg PRN Q3HRS PRN IV SEVERE PAIN Last administered on 12/03/18at 21:16; Start 12/02/18 at 20:30 Levofloxacin/ Dextrose (LEVAQUIN 500mg PREMIX) 500 mg STK-MED ONCE IV ; Start at 11:00; Stop 12/03/18 at 08:41; Status DC Sodium Chloride 1,000 ml @ 1,000 mls/hr Q1H PRN IV hypotension; Start 12/03/18 at 07:00; Stop 12/03/18 at 12:59; Status DC Sodium Chloride 1,000 ml @ 400 mls/hr Q2H30M PRN IV PATENCY; Start 12/03/18 at 07:00; Stop 12/03/18 at 18:59; Status DC Info (PHARMACY MONITORING -- do not chart) 1 each PRN DAILY PRN MC SEE COMMENTS ; Start 12/03/18 at 08:45; Status UNV Info (PHARMACY MONITORING -- do not chart) 1 each PRN DAILY PRN MC SEE COMMENTS ; Start 12/03/18 at 08:45 Sodium Chloride 1,000 ml @ 1,000 mls/hr Q1H PRN IV hypotension; Start 12/05/18 at 07:00; Stop 12/05/18 at 12:59; Status DC Sodium Chloride 1,000 ml @ 400 mls/hr Q2H30M PRN IV PATENCY; Start 12/05/18 at 07:00; Stop 12/05/18 at 18:59; Status DC Info (PHARMACY MONITORING -- do not chart) 1 each PRN DAILY PRN MC SEE COMMENTS ; Start 12/05/18 at 08:15; Status UNV Info (PHARMACY MONITORING -- do not chart) 1 each PRN DAILY PRN MC SEE COMMENTS ; Start 12/05/18 at 08:15; Status UNV Cefazolin Sodium 1 gm/Dextrose 50 ml @ 100 mls/hr Q12HR IV Last administered on 12/06/18at 08:37; Start 12/05/18 at 12:00 Active Scripts Active Reported Protonix (Pantoprazole Sodium) 20 Mg Tablet.dr 2 Tab PO DAILY Flonase Allergy Relief (Fluticasone Propionate) 9.9 Ml [place].susp 2 Sprays NS DAILY Procrit (Epoetin David) 10,000 Unit/1 Ml Vial 10,000 Unit IJ WEEKLY Tums (Calcium Carbonate) 200 Mg Tab.chew 200 Mg PO BID PRN Proair Respiclick (Albuterol Sulfate) 90 Mcg Aer.pow.ba 1-2 Puff IH PRN Q6HRS PRN Senna (Sennosides) 8.6 Mg Tablet 8.6 Mg PO BID Miralax (Polyethylene Glycol 3350) 17 Gm Powd.pack 1 Packet PO DAILY Colace (Docusate Sodium) 100 Mg Capsule 1 Cap PO BID Carvedilol 25 Mg Tablet 25 Mg PO BIDWMEALS Renvela (Sevelamer Carbonate) 800 Mg Tablet 5 Tab PO TIDWMEALS Furosemide 80 Mg Tablet 1 Tab PO BID Vitamin D (Cholecalciferol (Vitamin D3)) 5,000 Unit Tablet 5,000 Unit PO DAILY Calcitriol 0.25 Mcg Capsule 2 Cap PO DAILY Clonidine Hcl 0.2 Mg Tablet 1 Tab PO BID Johanna-Celia Rx Tablet (Vit B Cmplx 3/Fa/Vit C/Biotin) 1 Each Tablet 1 Each PO DAILY Sensipar (Cinacalcet Hcl) 60 Mg Tablet 60 Mg PO DAILY Amlodipine Besylate 10 Mg Tablet 10 Mg PO DAILY Simvastatin 20 Mg Tablet 20 Mg PO HS Lisinopril 40 Mg Tablet 1 Tab PO BID Novolog (Insulin Aspart) 100 Unit/1 Ml Vial 100 Unit SQ sliding scale Lantus Solostar (Insulin Glargine,Hum.rec.anlog) 100 Unit/1 Ml Insuln.pen 15 Unit SQ HS Vitals/I & O Vital Sign - Last 24 Hours 12/05/18 12/05/18 12/05/18 12/05/18 18:05 19:00 20:00 20:58 Temp 98.1 98.1 Pulse 91 85 85 Resp 18 B/P (MAP) 148/86 154/96 (115) 154/96 Pulse Ox 96 O2 Delivery Nasal Cannula Room Air O2 Flow Rate 2.0 12/05/18 12/05/18 12/06/18 12/06/18 20:58 22:35 03:00 07:40 Temp 98.5 98.1 97.9 98.5 98.1 97.9 Pulse 85 83 74 80 Resp 18 17 16 B/P (MAP) 154/96 145/88 (107) 138/87 (104) 146/85 (105) Pulse Ox 96 100 100 O2 Delivery Nasal Cannula Nasal Cannula Nasal Cannula O2 Flow Rate 2.0 2.0 2.0 12/06/18 12/06/18 12/06/18 12/06/18 07:54 08:37 08:39 08:39 B/P (MAP) 146/85 146/85 146/85 O2 Delivery Room Air 12/06/18 12/06/18 08:40 11:00 Temp 98.1 98.1 Pulse 78 Resp 20 B/P (MAP) 146/85 144/88 (106) Pulse Ox 100 O2 Delivery Nasal Cannula O2 Flow Rate 2.0 Intake and Output 12/05/18 12/05/18 12/06/18 15:00 23:00 07:00 Intake Total 240 ml 650 ml 400 ml Balance 240 ml 650 ml 400 ml ACOSTA OSPINA MD Dec 06, 2018 15:20
[2018-12-06 19:05] VITALS: BP 135/80
[2018-12-06] MEDS: SIMVASTATIN 20 MG TABLET PO SCH (21:27)
[2018-12-06] MEDS: INSULIN GLARGINE 300 UNITS/3 ML INSULN.PEN. SQ SCH (21:36)
[2018-12-06 23:19] VITALS: BP 141/85
[2018-12-07 03:25] VITALS: BP 133/82
[2018-12-07 04:00] LABS: BASO # 0.1 x10^3/uL (0.0-0.2); BASO % 1 % (0-3); EOS # 0.6 x10^3/uL (0.0-0.7); EOS % 6 % (0-3); LYMPH # 1.2 x10^3/uL (1.0-4.8); LYMPH % 12 % (24-48); MEAN CORPUSCULAR HEMOGLOBIN 28 pg (25-35); MEAN CORPUSCULAR HGB CONC 33 g/dL (31-37); MEAN CORPUSCULAR VOLUME 84 fL (79-100); MONO % 10 % (0-9); NEUT # 7.3 x10^3uL (1.8-7.7); NEUT % 72 % (31-73); PLATELET COUNT 399 x10^3/uL (140-400); RED BLOOD COUNT 2.48 x10^6/uL (4.30-5.70); RED CELL DISTRIBUTION WIDTH 17.5 % (11.5-14.5)
[2018-12-07 04:14] LABS: ALBUMIN 2.1 g/dL (3.4-5.0); ALBUMIN/GLOBULIN RATIO 0.5 (1.0-1.7); CALCIUM 8.4 mg/dL (8.5-10.1); CREATININE 12.5 mg/dL (0.7-1.3); GFR 5.5; POTASSIUM 4.7 mmol/L (3.5-5.1); TOTAL BILIRUBIN 0.2 mg/dL (0.2-1.0); TOTAL PROTEIN 6.4 g/dL (6.4-8.2)
[2018-12-07 04:17] LABS: HEMATOCRIT 20.8 % (39.0-53.0); HEMOGLOBIN 6.9 g/dL (13.0-17.5)
[2018-12-07 07:54] VITALS: BP 140/81
[2018-12-07] MEDS: FLUTICASONE 50MCG/NASAL SPRAY 16GM BOTTLE. NS SCH (08:39)
[2018-12-07] MEDS: INSULIN LISPRO 300 UNITS/3 ML INSULN.PEN. SQ SCH ×3 (08:40→17:47)
[2018-12-07] MEDS: SEVELAMER CARBONATE 800 MG TABLET. PO SCH ×3 (08:40→17:39)
[2018-12-07] MEDS: CHOLECALCIFEROL (VITAMIN D3) 5,000 UNIT CAPSULE PO SCH (08:40)
[2018-12-07] MEDS: ceFAZolin SODIUM 1 GM in IV DEXTROSE 5% 50 ML IV SCH ×2 (08:40→21:33)
[2018-12-07] MEDS: DOCUSATE SODIUM 100 MG CAPSULE. PO SCH ×2 (08:40→21:31)
[2018-12-07] MEDS: POLYETHYLENE GLYCOL 3350 17 GM PACKET. PO SCH (08:40)
[2018-12-07] MEDS: PANTOPRAZOLE 40 MG TABLET.DR. PO SCH (08:41)
[2018-12-07] MEDS: amLODIPine BESYLATE 10 MG TABLET PO SCH (08:42)
[2018-12-07] MEDS: FOLIC/VIT B COMP W-C (RENAL) TABLET. PO SCH (08:43)
[2018-12-07] MEDS: SENNOSIDES 8.6 MG TABLET PO SCH ×2 (08:43→21:31)
[2018-12-07] MEDS: FUROSEMIDE 80 MG TABLET. PO SCH ×2 (08:43→12:51)
[2018-12-07] MEDS: LACTOBACILLUS RHAMNOSUS GG 1 CAPSULE. PO SCH ×2 (08:43→21:31)
[2018-12-07] MEDS: cloNIDine HCL 0.2 MG TABLET PO SCH ×2 (08:43→21:32)
[2018-12-07] MEDS: CALCITRIOL 0.25 MCG CAPSULE. PO SCH (08:43)
[2018-12-07] MEDS: CINACALCET HCL 30 MG TABLET PO SCH (08:43)
[2018-12-07] MEDS: LISINOPRIL 20 MG TABLET PO SCH ×2 (08:44→21:32)
[2018-12-07] MEDS: CARVEDILOL 12.5 MG TABLET. PO SCH ×2 (08:44→17:41)
[2018-12-07] MEDS ORDERED: EPOETIN ALFA 10000 UNIT IJ SCH (09:00)
--- NOTE | 2018-12-07 09:52 | PDOC ---
SUBJECTIVE ROS Follow-up for ESRD currently on hemodialysis Patient's PD catheter was flushed yesterday and intubated to turn pinkish colored dialysate hence this will be repeated again today. He denies any other source of bleeding per SE CVS: NO Orthopnea, NO CP RESP: NO SOB, NO KAUFMAN GI: NO Nausea, NO Vomiting : NO Dysuria, NO Urgency OBJECTIVE Vital Signs Vital Signs Date Time Temp Pulse Resp B/P (MAP) Pulse Ox O2 Delivery O2 Flow Rate FiO2 12/07/18 08:44 140/81 12/07/18 07:54 97.7 77 18 98 Room Air 97.7 12/06/18 11:00 2.0 I & 0 Intake and Output 12/07/18 06:59 Intake Total 1220 ml Output Total 0 ml Balance 1220 ml Intake Oral 1220 ml Output Urine Total 0 ml PHYSICAL EXAM Physical Exam GEN: Awake, Oriented x 3, In no distress EYES: Vision Unchanged, Conjunctiva Normal EN: No EN Drainage, Mucous Membranes moist NECK: no JVD, no JVP, Supple, no Thyromegaly CVS: S1S2, + Murmur, No Gallop, No Rub,no Edema RESP: no Rales, no Rhonchi,no Acc. Muscle Use GI: BS + ve, NO Bruit, Non Tender, Non Distended : no CVA tenderness, no Suprapubic Tenderness DIAGNOSIS/ASSESSMENT Assessment & Plan ESRD: Current fluid and E-lyte status does not necessitate emergent need for dialysis. Will re-evaluate for dialysis in the am and continue on MWF schedule after placement of new permacath ANEMIA; Aranap as ordered, Transfuse with next HD as needed. May need blood transfusion in the morning with dialysis since hemoglobin dropped below 7 HTN in the setting of renal failure: Current BP meds as reviewed. See orders for changes. Nonfunctioning PD catheter: This appears to have been repositioned. I have ordered another PD catheter flush today due to bloody return yesterday HyperPhosphatemia of renal failure: Continue current binder regimen and alter based on by mouth intake and trend of phosphorus Discussed Plan of Care with family at bedside COMMENT/RELEVANT DATA Meds Current Medications Medications (Trade) Dose Ordered Sig/Afua Start Time Stop Time Status Last Admin Dose Admin Acetaminophen (Tylenol) 650 mg PRN Q4HRS PRN 11/30/18 20:15 12/05/18 18:06 650 MG Albumin Human 200 ml @ 200 mls/hr 1X PRN PRN 11/30/18 07:45 11/30/18 13:44 DC Albuterol Sulfate (Ventolin Neb Soln) 2.5 mg PRN Q6HRS PRN 11/30/18 13:45 Amlodipine Besylate (Norvasc) 10 mg DAILY 11/30/18 09:00 12/07/18 08:42 10 MG Aspirin (Anshul Aspirin) 325 mg 1X ONCE 11/29/18 19:45 11/29/18 19:46 DC 11/29/18 20:19 325 MG Bupivacaine HCl/ Epinephrine Bitart (Sensorcain-Mpf Epi 0.5%-[id number]) 30 ml STK-MED ONCE 12/02/18 07:36 12/02/18 07:37 DC 12/02/18 11:05 10 ML Calcitriol (Rocaltrol) 0.25 mcg DAILY 11/30/18 09:00 12/07/18 08:43 0.25 MCG Calcium Carbonate/ Glycine (Tums) 500 mg PRN BID PRN 11/30/18 13:30 Carvedilol (Coreg) 12.5 mg BIDWMEALS 11/30/18 08:00 12/07/18 08:44 12.5 MG Cefazolin Sodium 1 gm/Dextrose 50 ml @ 100 mls/hr Q12HR 12/05/18 12:00 12/07/18 08:40 100 MLS/HR Cinacalcet (Sensipar) 60 mg DAILY 11/30/18 09:00 12/07/18 08:43 60 MG Clonidine HCl (Catapres) 0.2 mg BID 11/29/18 21:00 12/07/18 08:43 0.2 MG Darbepoetin David (Aranesp) 60 mcg WEEKLYHS 12/07/18 21:00 Dexamethasone Sodium Phosphate (Decadron) 20 mg STK-MED ONCE 12/02/18 09:06 12/02/18 09:07 DC Dextrose (Dextrose 50%-Water Syringe) 12.5 gm PRN Q15MIN PRN 11/30/18 10:30 UNV Diphenhydramine HCl (Benadryl) 25 mg 1X PRN PRN 11/30/18 07:45 12/01/18 07:44 DC Docusate Sodium (Colace) 100 mg BID 11/29/18 21:00 12/07/18 08:40 100 MG Fentanyl Citrate (Fentanyl 2ml Vial) 50 mcg PRN Q5MIN PRN 12/02/18 13:00 12/02/18 20:24 DC 12/02/18 13:46 50 MCG Fluticasone Propionate (Flonase) 2 spray DAILY 11/30/18 14:00 12/07/18 08:39 2 SPRAY Furosemide (Lasix) 80 mg [id number] 11/29/18 20:00 12/07/18 08:43 80 MG Glycopyrrolate (Robinul) 1 mg STK-MED ONCE 12/02/18 12:25 12/02/18 12:26 DC Heparin Sodium (Porcine) 5000 unit/Sodium Chloride 505 ml @ 505 mls/hr 1X ONCE 12/02/18 07:00 12/02/18 07:59 DC 12/02/18 11:05 Hydromorphone HCl (Dilaudid) 1 mg PRN Q3HRS PRN 12/02/18 20:30 12/03/18 21:16 1 MG Info (PHARMACY MONITORING -- do not chart) 1 each PRN DAILY PRN 12/05/18 08:15 UNV Insulin Glargine (Lantus) 32 units HS 11/29/18 21:00 12/06/18 21:36 32 UNITS Insulin Human Lispro (HumaLOG) 10 units 1X ONCE 12/02/18 09:45 12/02/18 09:46 DC Iron Sucrose 200 mg/Sodium Chloride 110 ml @ 55 mls/hr 1X ONCE 11/29/18 19:15 11/29/18 21:14 DC 11/29/18 22:20 55 MLS/HR Labetalol HCl (Normodyne Iv Push) 10 mg PRN Q2HR PRN 11/30/18 04:00 12/03/18 04:25 10 MG Lactobacillus Rhamnosus (Culturelle) 1 cap BID 12/02/18 21:00 12/07/18 08:43 1 CAP Levofloxacin/ Dextrose (LEVAQUIN 500mg PREMIX) 500 mg STK-MED ONCE 12/02/18 11:00 12/03/18 08:41 DC Lidocaine HCl (Lidocaine Pf 2% Vial) 5 ml STK-MED ONCE 12/02/18 09:05 12/02/18 09:06 DC Lidocaine HCl (Xylocaine-Mpf 1% 2ml Vial) 2 ml 1X PRN PRN 12/02/18 13:00 12/03/18 12:59 DC Lisinopril (Prinivil) 40 mg BID 11/29/18 21:00 12/07/18 08:44 40 MG Metoclopramide HCl (Reglan Vial) 10 mg STK-MED ONCE 12/02/18 10:59 12/02/18 11:00 DC Morphine Sulfate (Morphine Sulfate) 1 mg PRN Q10MIN PRN 12/02/18 13:00 12/02/18 20:24 DC Neostigmine Methylsulfate (Bloxiverz) 10 mg STK-MED ONCE 12/02/18 12:25 12/02/18 12:26 DC Non-Formulary Medication (Epoetin David (Procrit)) 10,000 unit WEEKLY 12/07/18 09:00 12/07/18 09:00 DC Ondansetron HCl (Zofran) 4 mg PRN Q6HRS PRN 12/02/18 13:00 12/03/18 12:59 DC Oxycodone/ Acetaminophen (Percocet 5/325) 1 tab PRN Q4HRS PRN 12/02/18 13:15 12/03/18 21:15 1 TAB Pantoprazole Sodium (Protonix) 40 mg DAILYAC 11/30/18 14:00 12/07/18 08:41 40 MG Piperacillin Sod/ Tazobactam Sod (Zosyn Per Pharmacy) 1 each PRN DAILY PRN 11/30/18 12:15 12/05/18 10:11 DC Piperacillin Sod/ Tazobactam Sod 2.25 gm/Sodium Chloride 50 ml @ 100 mls/hr Q8HRS 11/30/18 13:00 12/05/18 10:11 DC 12/05/18 06:00 100 MLS/HR Piperacillin Sod/ Tazobactam Sod 3.375 gm/Sodium Chloride 50 ml @ 100 mls/hr 1X ONCE 11/29/18 18:15 11/29/18 18:44 DC 11/29/18 18:45 100 MLS/HR Polyethylene Glycol (miraLAX PACKET) 17 gm PRN DAILY PRN 11/30/18 17:00 Prochlorperazine Edisylate (Compazine) 5 mg PACU PRN PRN 12/02/18 13:00 12/03/18 12:59 DC Propofol 20 ml @ As Directed STK-MED ONCE 12/02/18 09:06 12/02/18 09:07 DC Ringer's Solution 1,000 ml @ 30 mls/hr Q24H 12/02/18 12:51 12/03/18 00:50 DC Rocuronium [place] (Zemuron) 50 mg STK-MED ONCE 12/02/18 09:05 12/02/18 09:06 DC Sennosides (Senna) 8.6 mg BID 11/29/18 21:00 12/07/18 08:43 8.6 MG Sevelamer Carbonate (Renvela) 4,000 mg TIDWMEALS 11/30/18 08:00 12/07/18 08:40 4,000 MG Sevoflurane (Ultane) 90 ml STK-MED ONCE 12/02/18 12:27 12/02/18 12:28 DC Simvastatin (Zocor) 20 mg HS 11/29/18 21:00 12/06/18 21:27 20 MG Sodium Chloride 1,000 ml @ 400 mls/hr Q2H30M PRN 12/05/18 07:00 12/05/18 18:59 DC Sodium Cl/Sod Bicarb/Potass Cl/ PEG (Golytely) 4,000 ml 1X ONCE 11/30/18 18:00 11/30/18 18:01 DC 11/30/18 17:33 4,000 ML Vancomycin HCl (Vanco Per Pharmacy) 1 each PRN DAILY PRN 11/30/18 12:15 12/04/18 08:03 DC 12/03/18 15:53 1 EACH Vancomycin HCl (Vancomycin Random Level) 1 each 1X ONCE 11/30/18 16:00 11/30/18 16:01 DC 11/30/18 16:00 1 EACH Vancomycin HCl 500 mg/Sodium Chloride 100 ml @ 100 mls/hr QMWF 12/01/18 16:00 12/04/18 08:03 DC 12/03/18 16:53 100 MLS/HR Vancomycin HCl 2 gm/Sodium Chloride 500 ml @ 250 mls/hr 1X ONCE 11/29/18 19:00 11/29/18 20:59 DC 11/29/18 18:46 250 MLS/HR Vitamin B Complex/ Vitamin C (Johanna-Celia) 1 tab DAILY 11/30/18 09:00 12/07/18 08:43 1 TAB Vitamin D (Vitamin D3) 5,000 unit DAILY 11/30/18 09:00 12/07/18 08:40 5,000 UNIT Lab Laboratory Tests Test 12/06/18 11:58 12/06/18 17:49 12/06/18 21:24 12/07/18 03:30 Glucose (Fingerstick) 218 mg/dL (70-99) 119 mg/dL (70-99) 303 mg/dL (70-99) White Blood Count 10.0 x10^3/uL (4.0-11.0) Red Blood Count 2.48 x10^6/uL (4.30-5.70) Hemoglobin 6.9 g/dL (13.0-17.5) Hematocrit 20.8 % (39.0-53.0) Mean Corpuscular Volume 84 fL (79-100) Mean Corpuscular Hemoglobin 28 pg (25-35) Mean Corpuscular Hemoglobin Concent 33 g/dL (31-37) Red Cell Distribution Width 17.5 % (11.5-14.5) Platelet Count 399 x10^3/uL (140-400) Neutrophils (%) (Auto) 72 % (31-73) Lymphocytes (%) (Auto) 12 % (24-48) Monocytes (%) (Auto) 10 % (0-9) Eosinophils (%) (Auto) 6 % (0-3) Basophils (%) (Auto) 1 % (0-3) Neutrophils # (Auto) 7.3 x10^3uL (1.8-7.7) Lymphocytes # (Auto) 1.2 x10^3/uL (1.0-4.8) Monocytes # (Auto) 1.0 x10^3/uL (0.0-1.1) Eosinophils # (Auto) 0.6 x10^3/uL (0.0-0.7) Basophils # (Auto) 0.1 x10^3/uL (0.0-0.2) Sodium Level 136 mmol/L (136-145) Potassium Level 4.7 mmol/L (3.5-5.1) Chloride Level 98 mmol/L (98-107) Carbon Dioxide Level 26 mmol/L (21-32) Anion Gap 12 (6-14) Blood Urea Nitrogen 34 mg/dL (8-26) Creatinine 12.5 mg/dL (0.7-1.3) Estimated GFR (Cockcroft-Gault) 5.5 BUN/Creatinine Ratio 3 (6-20) Glucose Level 276 mg/dL (70-99) Calcium Level 8.4 mg/dL (8.5-10.1) Total Bilirubin 0.2 mg/dL (0.2-1.0) Aspartate Amino Transf (AST/SGOT) 16 U/L (15-37) Alanine Aminotransferase (ALT/SGPT) 18 U/L (16-63) Alkaline Phosphatase 122 U/L (46-116) Total Protein 6.4 g/dL (6.4-8.2) Albumin 2.1 g/dL (3.4-5.0) Albumin/Globulin Ratio 0.5 (1.0-1.7) Test 12/07/18 08:13 Glucose (Fingerstick) 172 mg/dL (70-99) Results All relevant outside records, renal labs, imaging studies, telemetry/EKG's were reviewed. GERARDO NESS MD Dec 07, 2018 09:52
[2018-12-07] MEDS ORDERED: MAGNESIUM SULFATE 2GM 50 ML IV PRN (10:00)
[2018-12-07 10:46] VITALS: BP 129/78
--- NOTE | 2018-12-07 11:35 | PDOC ---
Infectious Disease Note Subjective Subjective Comfortable, tired this morning No F/C/S/N/V/SOA/rash/pain. ROS ROS per HPI Vital Sign Vital Signs Vital Signs Date Time Temp Pulse Resp B/P (MAP) Pulse Ox O2 Delivery O2 Flow Rate FiO2 12/07/18 10:46 97.8 88 18 129/78 (95) 100 Nasal Cannula 2.0 97.8 Physical Exam PHYSICAL EXAM GENERAL: Propped up in bed, resting quietly HEENT: Oral cavity,pharynx pink and moist. NECK: Supple. LUNGS: Clear to auscultation. HEART: S1 and S2. ABDOMEN: Mild distension. Dressed. PD in place -clean EXTREMITIES: No gross edema or cyanosis. SKIN: Warm without generalized rash. NEUROLOGIC: Arouses to name, responds appropriately Right-sided tunneled HD catheter out. no redness or drainage PIV ok Labs Lab Laboratory Tests Test 12/06/18 11:58 12/06/18 17:49 12/06/18 21:24 12/07/18 03:30 Glucose (Fingerstick) 218 mg/dL (70-99) 119 mg/dL (70-99) 303 mg/dL (70-99) White Blood Count 10.0 x10^3/uL (4.0-11.0) Red Blood Count 2.48 x10^6/uL (4.30-5.70) Hemoglobin 6.9 g/dL (13.0-17.5) Hematocrit 20.8 % (39.0-53.0) Mean Corpuscular Volume 84 fL (79-100) Mean Corpuscular Hemoglobin 28 pg (25-35) Mean Corpuscular Hemoglobin Concent 33 g/dL (31-37) Red Cell Distribution Width 17.5 % (11.5-14.5) Platelet Count 399 x10^3/uL (140-400) Neutrophils (%) (Auto) 72 % (31-73) Lymphocytes (%) (Auto) 12 % (24-48) Monocytes (%) (Auto) 10 % (0-9) Eosinophils (%) (Auto) 6 % (0-3) Basophils (%) (Auto) 1 % (0-3) Neutrophils # (Auto) 7.3 x10^3uL (1.8-7.7) Lymphocytes # (Auto) 1.2 x10^3/uL (1.0-4.8) Monocytes # (Auto) 1.0 x10^3/uL (0.0-1.1) Eosinophils # (Auto) 0.6 x10^3/uL (0.0-0.7) Basophils # (Auto) 0.1 x10^3/uL (0.0-0.2) Sodium Level 136 mmol/L (136-145) Potassium Level 4.7 mmol/L (3.5-5.1) Chloride Level 98 mmol/L (98-107) Carbon Dioxide Level 26 mmol/L (21-32) Anion Gap 12 (6-14) Blood Urea Nitrogen 34 mg/dL (8-26) Creatinine 12.5 mg/dL (0.7-1.3) Estimated GFR (Cockcroft-Gault) 5.5 BUN/Creatinine Ratio 3 (6-20) Glucose Level 276 mg/dL (70-99) Calcium Level 8.4 mg/dL (8.5-10.1) Total Bilirubin 0.2 mg/dL (0.2-1.0) Aspartate Amino Transf (AST/SGOT) 16 U/L (15-37) Alanine Aminotransferase (ALT/SGPT) 18 U/L (16-63) Alkaline Phosphatase 122 U/L (46-116) Total Protein 6.4 g/dL (6.4-8.2) Albumin 2.1 g/dL (3.4-5.0) Albumin/Globulin Ratio 0.5 (1.0-1.7) Test 12/07/18 08:13 Glucose (Fingerstick) 172 mg/dL (70-99) Echo The left ventricle is normal size. The left ventricular systolic function is normal and the ejection fraction is within normal range. The Ejection Fraction is 60-65%. There is mild concentric left ventricular hypertrophy. There is no significant aortic valvular stenosis. Doppler and Color Flow revealed no significant aortic regurgitation. Doppler and Color-flow revealed trace eccentric mitral regurgitation. Doppler and Color Flow revealed trace tricuspid regurgitation. The PA pressure was estimated at 24 mmHg. Micro 12/04. BLOOD CULTURE Preliminary NO GROWTH AFTER 3 DAYS cath tip GRAM STAIN RESULT 2 Final No organisms seen Objective Assessment Sepsis POA, 11/29 with MSSA bacteremia. ? line infection - clinically better. Repeat BC from 22 NGTD -s/p HDC removal, 12/05. Tip cx pending. Echo neg veg. Leukocytosis - up post procedure and steroids, 12/02. better Transaminitis ? sepsis - improving Fever - better PCN allergy - nausea. Has tolerated Zosyn without problem Constipation Acute diastolic CHF CKD on HD s/p HDC on 11/26 and removal on 12/05. Malfunctioning peritoneal catheter -s/p repositioning 12/02 Anemia. s/p iron and PRBCs Diabetes Plan Plan of Care Repeat Blood cults - 12/04 NGTD May replace temp HD cath on 12/08 Continue cefazolin Probiotics D/w RN D/w Attending Co-Sign Attending Co-Sign The patient was seen and interviewed as well as examined at the bedside. The chart was reviewed. The case was discussed. Agree with the plan of care. TUAN REYNOLDS APRN Dec 07, 2018 11:35 ECHO HENNESSY MD Dec 07, 2018 13:26
--- NOTE | 2018-12-07 12:33 | PDOC ---
G I PROGRESS NOTE Subjective Patient asleep. Not awakened. Family notes issues with abdominal discomfort yesterday with attempt to advance diet, so going slow. Physical Exam No PE. Review of Relevant I have reviewed the following items javy (where applicable) has been applied. Labs Laboratory Tests Test 12/05/18 17:07 12/05/18 20:31 12/06/18 04:00 12/06/18 07:58 Glucose (Fingerstick) 93 mg/dL (70-99) 145 mg/dL (70-99) 138 mg/dL (70-99) White Blood Count 9.4 x10^3/uL (4.0-11.0) Red Blood Count 2.58 x10^6/uL (4.30-5.70) Hemoglobin 7.1 g/dL (13.0-17.5) Hematocrit 22.0 % (39.0-53.0) Mean Corpuscular Volume 85 fL (79-100) Mean Corpuscular Hemoglobin 27 pg (25-35) Mean Corpuscular Hemoglobin Concent 32 g/dL (31-37) Red Cell Distribution Width 18.3 % (11.5-14.5) Platelet Count 347 x10^3/uL (140-400) Neutrophils (%) (Auto) 74 % (31-73) Lymphocytes (%) (Auto) 11 % (24-48) Monocytes (%) (Auto) 10 % (0-9) Eosinophils (%) (Auto) 6 % (0-3) Basophils (%) (Auto) 1 % (0-3) Neutrophils # (Auto) 6.9 x10^3uL (1.8-7.7) Lymphocytes # (Auto) 1.0 x10^3/uL (1.0-4.8) Monocytes # (Auto) 0.9 x10^3/uL (0.0-1.1) Eosinophils # (Auto) 0.5 x10^3/uL (0.0-0.7) Basophils # (Auto) 0.1 x10^3/uL (0.0-0.2) Sodium Level 139 mmol/L (136-145) Potassium Level 4.0 mmol/L (3.5-5.1) Chloride Level 101 mmol/L (98-107) Carbon Dioxide Level 26 mmol/L (21-32) Anion Gap 12 (6-14) Blood Urea Nitrogen 21 mg/dL (8-26) Creatinine 9.2 mg/dL (0.7-1.3) Estimated GFR (Cockcroft-Gault) 7.9 BUN/Creatinine Ratio 2 (6-20) Glucose Level 86 mg/dL (70-99) Calcium Level 8.9 mg/dL (8.5-10.1) Total Bilirubin 0.2 mg/dL (0.2-1.0) Aspartate Amino Transf (AST/SGOT) 16 U/L (15-37) Alanine Aminotransferase (ALT/SGPT) 52 U/L (16-63) Alkaline Phosphatase 119 U/L (46-116) Total Protein 6.5 g/dL (6.4-8.2) Albumin 2.0 g/dL (3.4-5.0) Albumin/Globulin Ratio 0.4 (1.0-1.7) Test 12/06/18 11:58 12/06/18 17:49 12/06/18 21:24 12/07/18 03:30 Glucose (Fingerstick) 218 mg/dL (70-99) 119 mg/dL (70-99) 303 mg/dL (70-99) White Blood Count 10.0 x10^3/uL (4.0-11.0) Red Blood Count 2.48 x10^6/uL (4.30-5.70) Hemoglobin 6.9 g/dL (13.0-17.5) Hematocrit 20.8 % (39.0-53.0) Mean Corpuscular Volume 84 fL (79-100) Mean Corpuscular Hemoglobin 28 pg (25-35) Mean Corpuscular Hemoglobin Concent 33 g/dL (31-37) Red Cell Distribution Width 17.5 % (11.5-14.5) Platelet Count 399 x10^3/uL (140-400) Neutrophils (%) (Auto) 72 % (31-73) Lymphocytes (%) (Auto) 12 % (24-48) Monocytes (%) (Auto) 10 % (0-9) Eosinophils (%) (Auto) 6 % (0-3) Basophils (%) (Auto) 1 % (0-3) Neutrophils # (Auto) 7.3 x10^3uL (1.8-7.7) Lymphocytes # (Auto) 1.2 x10^3/uL (1.0-4.8) Monocytes # (Auto) 1.0 x10^3/uL (0.0-1.1) Eosinophils # (Auto) 0.6 x10^3/uL (0.0-0.7) Basophils # (Auto) 0.1 x10^3/uL (0.0-0.2) Sodium Level 136 mmol/L (136-145) Potassium Level 4.7 mmol/L (3.5-5.1) Chloride Level 98 mmol/L (98-107) Carbon Dioxide Level 26 mmol/L (21-32) Anion Gap 12 (6-14) Blood Urea Nitrogen 34 mg/dL (8-26) Creatinine 12.5 mg/dL (0.7-1.3) Estimated GFR (Cockcroft-Gault) 5.5 BUN/Creatinine Ratio 3 (6-20) Glucose Level 276 mg/dL (70-99) Calcium Level 8.4 mg/dL (8.5-10.1) Total Bilirubin 0.2 mg/dL (0.2-1.0) Aspartate Amino Transf (AST/SGOT) 16 U/L (15-37) Alanine Aminotransferase (ALT/SGPT) 18 U/L (16-63) Alkaline Phosphatase 122 U/L (46-116) Total Protein 6.4 g/dL (6.4-8.2) Albumin 2.1 g/dL (3.4-5.0) Albumin/Globulin Ratio 0.5 (1.0-1.7) Test 12/07/18 08:13 Glucose (Fingerstick) 172 mg/dL (70-99) Laboratory Tests Test 12/06/18 17:49 12/06/18 21:24 12/07/18 03:30 12/07/18 08:13 Glucose (Fingerstick) 119 mg/dL (70-99) 303 mg/dL (70-99) 172 mg/dL (70-99) White Blood Count 10.0 x10^3/uL (4.0-11.0) Red Blood Count 2.48 x10^6/uL (4.30-5.70) Hemoglobin 6.9 g/dL (13.0-17.5) Hematocrit 20.8 % (39.0-53.0) Mean Corpuscular Volume 84 fL (79-100) Mean Corpuscular Hemoglobin 28 pg (25-35) Mean Corpuscular Hemoglobin Concent 33 g/dL (31-37) Red Cell Distribution Width 17.5 % (11.5-14.5) Platelet Count 399 x10^3/uL (140-400) Neutrophils (%) (Auto) 72 % (31-73) Lymphocytes (%) (Auto) 12 % (24-48) Monocytes (%) (Auto) 10 % (0-9) Eosinophils (%) (Auto) 6 % (0-3) Basophils (%) (Auto) 1 % (0-3) Neutrophils # (Auto) 7.3 x10^3uL (1.8-7.7) Lymphocytes # (Auto) 1.2 x10^3/uL (1.0-4.8) Monocytes # (Auto) 1.0 x10^3/uL (0.0-1.1) Eosinophils # (Auto) 0.6 x10^3/uL (0.0-0.7) Basophils # (Auto) 0.1 x10^3/uL (0.0-0.2) Sodium Level 136 mmol/L (136-145) Potassium Level 4.7 mmol/L (3.5-5.1) Chloride Level 98 mmol/L (98-107) Carbon Dioxide Level 26 mmol/L (21-32) Anion Gap 12 (6-14) Blood Urea Nitrogen 34 mg/dL (8-26) Creatinine 12.5 mg/dL (0.7-1.3) Estimated GFR (Cockcroft-Gault) 5.5 BUN/Creatinine Ratio 3 (6-20) Glucose Level 276 mg/dL (70-99) Calcium Level 8.4 mg/dL (8.5-10.1) Total Bilirubin 0.2 mg/dL (0.2-1.0) Aspartate Amino Transf (AST/SGOT) 16 U/L (15-37) Alanine Aminotransferase (ALT/SGPT) 18 U/L (16-63) Alkaline Phosphatase 122 U/L (46-116) Total Protein 6.4 g/dL (6.4-8.2) Albumin 2.1 g/dL (3.4-5.0) Albumin/Globulin Ratio 0.5 (1.0-1.7) Microbiology 12/04/18 Blood Culture - Preliminary, Resulted NO GROWTH AFTER 3 DAYS 12/05/18 Aerobic Culture, Resulted Pending 12/05/18 Aerobic Culture Result 1 (NOLAN), Resulted Pending 12/05/18 Gram Stain - Final, Resulted 12/05/18 Gram Stain Result 1 (NOLAN) - Final, Resulted 12/05/18 Gram Stain Result 2 (NOLAN) - Final, Resulted Vitals/I & O Vital Sign - Last 24 Hours 12/06/18 12/06/18 12/06/18 12/06/18 15:00 18:18 19:05 19:53 Temp 97.9 98.3 97.9 98.3 Pulse 72 88 Resp 16 16 B/P (MAP) 126/82 (97) 149/81 135/80 (98) Pulse Ox 99 95 O2 Delivery Room Air Room Air Room Air 12/06/18 12/06/18 12/06/18 12/07/18 21:27 21:30 23:19 03:25 Temp 98.2 97.8 98.2 97.8 Pulse 88 88 92 78 Resp 16 16 B/P (MAP) 135/80 135/80 141/85 (103) 133/82 (99) Pulse Ox 97 100 O2 Delivery Room Air Room Air 12/07/18 12/07/18 12/07/18 12/07/18 07:53 07:54 08:42 08:43 Temp 97.7 97.7 Pulse 77 Resp 18 B/P (MAP) 140/81 (100) 140/77 140/81 Pulse Ox 98 O2 Delivery Room Air Room Air 12/07/18 12/07/18 12/07/18 08:44 08:44 10:46 Temp 97.8 97.8 Pulse 88 Resp 18 B/P (MAP) 140/81 140/81 129/78 (95) Pulse Ox 100 O2 Delivery Nasal Cannula O2 Flow Rate 2.0 Intake and Output 12/06/18 12/06/18 12/07/18 14:59 22:59 06:59 Intake Total 480 ml 440 ml 300 ml Output Total 0 ml Balance 480 ml 440 ml 300 ml Problem List Problems Medical Problems: (1) Abnormal EKG Status: Acute (2) Elevated troponin Status: Acute (3) End stage renal disease Status: Acute (4) Fever Status: Acute Assessment Ileus, unclearly better. Plan of Care: Continue current Tx, Mgmt Plan of Care Note Observe on diet. ORQUIDEA MAR MD Dec 07, 2018 12:33
--- NOTE | 2018-12-07 12:44 | PDOC ---
SURGICAL PROGRESS NOTE Subjective Pt sleepy, without new c/o Vital Signs Vital Signs Date Time Temp Pulse Resp B/P (MAP) Pulse Ox O2 Delivery O2 Flow Rate FiO2 12/07/18 10:46 97.8 88 18 129/78 (95) 100 Nasal Cannula 2.0 97.8 I&O Intake and Output 12/07/18 07:00 Intake Total 1220 ml Output Total 0 ml Balance 1220 ml Intake Oral 1220 ml Output Urine Total 0 ml General: Alert, No acute distress Abdomen: Soft, Other (mild TTP, dressing intact, PD intact) Labs Laboratory Tests Test 12/05/18 17:07 12/05/18 20:31 12/06/18 04:00 12/06/18 07:58 Glucose (Fingerstick) 93 mg/dL (70-99) 145 mg/dL (70-99) 138 mg/dL (70-99) White Blood Count 9.4 x10^3/uL (4.0-11.0) Red Blood Count 2.58 x10^6/uL (4.30-5.70) Hemoglobin 7.1 g/dL (13.0-17.5) Hematocrit 22.0 % (39.0-53.0) Mean Corpuscular Volume 85 fL (79-100) Mean Corpuscular Hemoglobin 27 pg (25-35) Mean Corpuscular Hemoglobin Concent 32 g/dL (31-37) Red Cell Distribution Width 18.3 % (11.5-14.5) Platelet Count 347 x10^3/uL (140-400) Neutrophils (%) (Auto) 74 % (31-73) Lymphocytes (%) (Auto) 11 % (24-48) Monocytes (%) (Auto) 10 % (0-9) Eosinophils (%) (Auto) 6 % (0-3) Basophils (%) (Auto) 1 % (0-3) Neutrophils # (Auto) 6.9 x10^3uL (1.8-7.7) Lymphocytes # (Auto) 1.0 x10^3/uL (1.0-4.8) Monocytes # (Auto) 0.9 x10^3/uL (0.0-1.1) Eosinophils # (Auto) 0.5 x10^3/uL (0.0-0.7) Basophils # (Auto) 0.1 x10^3/uL (0.0-0.2) Sodium Level 139 mmol/L (136-145) Potassium Level 4.0 mmol/L (3.5-5.1) Chloride Level 101 mmol/L (98-107) Carbon Dioxide Level 26 mmol/L (21-32) Anion Gap 12 (6-14) Blood Urea Nitrogen 21 mg/dL (8-26) Creatinine 9.2 mg/dL (0.7-1.3) Estimated GFR (Cockcroft-Gault) 7.9 BUN/Creatinine Ratio 2 (6-20) Glucose Level 86 mg/dL (70-99) Calcium Level 8.9 mg/dL (8.5-10.1) Total Bilirubin 0.2 mg/dL (0.2-1.0) Aspartate Amino Transf (AST/SGOT) 16 U/L (15-37) Alanine Aminotransferase (ALT/SGPT) 52 U/L (16-63) Alkaline Phosphatase 119 U/L (46-116) Total Protein 6.5 g/dL (6.4-8.2) Albumin 2.0 g/dL (3.4-5.0) Albumin/Globulin Ratio 0.4 (1.0-1.7) Test 12/06/18 11:58 12/06/18 17:49 12/06/18 21:24 12/07/18 03:30 Glucose (Fingerstick) 218 mg/dL (70-99) 119 mg/dL (70-99) 303 mg/dL (70-99) White Blood Count 10.0 x10^3/uL (4.0-11.0) Red Blood Count 2.48 x10^6/uL (4.30-5.70) Hemoglobin 6.9 g/dL (13.0-17.5) Hematocrit 20.8 % (39.0-53.0) Mean Corpuscular Volume 84 fL (79-100) Mean Corpuscular Hemoglobin 28 pg (25-35) Mean Corpuscular Hemoglobin Concent 33 g/dL (31-37) Red Cell Distribution Width 17.5 % (11.5-14.5) Platelet Count 399 x10^3/uL (140-400) Neutrophils (%) (Auto) 72 % (31-73) Lymphocytes (%) (Auto) 12 % (24-48) Monocytes (%) (Auto) 10 % (0-9) Eosinophils (%) (Auto) 6 % (0-3) Basophils (%) (Auto) 1 % (0-3) Neutrophils # (Auto) 7.3 x10^3uL (1.8-7.7) Lymphocytes # (Auto) 1.2 x10^3/uL (1.0-4.8) Monocytes # (Auto) 1.0 x10^3/uL (0.0-1.1) Eosinophils # (Auto) 0.6 x10^3/uL (0.0-0.7) Basophils # (Auto) 0.1 x10^3/uL (0.0-0.2) Sodium Level 136 mmol/L (136-145) Potassium Level 4.7 mmol/L (3.5-5.1) Chloride Level 98 mmol/L (98-107) Carbon Dioxide Level 26 mmol/L (21-32) Anion Gap 12 (6-14) Blood Urea Nitrogen 34 mg/dL (8-26) Creatinine 12.5 mg/dL (0.7-1.3) Estimated GFR (Cockcroft-Gault) 5.5 BUN/Creatinine Ratio 3 (6-20) Glucose Level 276 mg/dL (70-99) Calcium Level 8.4 mg/dL (8.5-10.1) Total Bilirubin 0.2 mg/dL (0.2-1.0) Aspartate Amino Transf (AST/SGOT) 16 U/L (15-37) Alanine Aminotransferase (ALT/SGPT) 18 U/L (16-63) Alkaline Phosphatase 122 U/L (46-116) Total Protein 6.4 g/dL (6.4-8.2) Albumin 2.1 g/dL (3.4-5.0) Albumin/Globulin Ratio 0.5 (1.0-1.7) Test 12/07/18 08:13 Glucose (Fingerstick) 172 mg/dL (70-99) Laboratory Tests Test 12/06/18 17:49 12/06/18 21:24 12/07/18 03:30 12/07/18 08:13 Glucose (Fingerstick) 119 mg/dL (70-99) 303 mg/dL (70-99) 172 mg/dL (70-99) White Blood Count 10.0 x10^3/uL (4.0-11.0) Red Blood Count 2.48 x10^6/uL (4.30-5.70) Hemoglobin 6.9 g/dL (13.0-17.5) Hematocrit 20.8 % (39.0-53.0) Mean Corpuscular Volume 84 fL (79-100) Mean Corpuscular Hemoglobin 28 pg (25-35) Mean Corpuscular Hemoglobin Concent 33 g/dL (31-37) Red Cell Distribution Width 17.5 % (11.5-14.5) Platelet Count 399 x10^3/uL (140-400) Neutrophils (%) (Auto) 72 % (31-73) Lymphocytes (%) (Auto) 12 % (24-48) Monocytes (%) (Auto) 10 % (0-9) Eosinophils (%) (Auto) 6 % (0-3) Basophils (%) (Auto) 1 % (0-3) Neutrophils # (Auto) 7.3 x10^3uL (1.8-7.7) Lymphocytes # (Auto) 1.2 x10^3/uL (1.0-4.8) Monocytes # (Auto) 1.0 x10^3/uL (0.0-1.1) Eosinophils # (Auto) 0.6 x10^3/uL (0.0-0.7) Basophils # (Auto) 0.1 x10^3/uL (0.0-0.2) Sodium Level 136 mmol/L (136-145) Potassium Level 4.7 mmol/L (3.5-5.1) Chloride Level 98 mmol/L (98-107) Carbon Dioxide Level 26 mmol/L (21-32) Anion Gap 12 (6-14) Blood Urea Nitrogen 34 mg/dL (8-26) Creatinine 12.5 mg/dL (0.7-1.3) Estimated GFR (Cockcroft-Gault) 5.5 BUN/Creatinine Ratio 3 (6-20) Glucose Level 276 mg/dL (70-99) Calcium Level 8.4 mg/dL (8.5-10.1) Total Bilirubin 0.2 mg/dL (0.2-1.0) Aspartate Amino Transf (AST/SGOT) 16 U/L (15-37) Alanine Aminotransferase (ALT/SGPT) 18 U/L (16-63) Alkaline Phosphatase 122 U/L (46-116) Total Protein 6.4 g/dL (6.4-8.2) Albumin 2.1 g/dL (3.4-5.0) Albumin/Globulin Ratio 0.5 (1.0-1.7) Problem List Problems Medical Problems: (1) Abnormal EKG Status: Acute (2) Elevated troponin Status: Acute (3) End stage renal disease Status: Acute (4) Fever Status: Acute Assessment/Plan s/p PD revision cont JENNIFER MENDOZA MD Dec 07, 2018 12:44
--- NOTE | 2018-12-07 12:47 | PDOC ---
PROGRESS NOTES Chief Complaint Chief Complaint Sepsis POA. Procalcitonin 94.62. ? line infection -resolved GPC bacteremia (3 of 4 bottles) POA 11/29 with MSSA present sensitivities noted Leukocytosis - better Transaminitis ? sepsis - increasing Fever - curve improving PCN allergy - nausea. Has tolerated Zosyn without problem Constipation Acute diastolic CHF CKD on HD (s/p HDC 11/26; small neck wound w/ stitch in place) Malfunctioning peritoneal catheter status post repositioning and hernia repair on 12/02/2018 Anemia. s/p iron and PRBCs 2 units evaluated by hematology and added Aranesp to his regimen Diabetes insulin requiring Plan: will follow results of repeat blood cultures new catheter on saturday once blood cultures have established that bacteremia is controlled continue broad spectrum antibiotics as per ID exchange underwriting consultant. History of Present Illness History of Present Illness Patient with no acute events reported overnight. Discussed plan of care, dialysis catheter removed, no fever or chills reported. Vitals Vitals Vital Signs Date Time Temp Pulse Resp B/P (MAP) Pulse Ox O2 Delivery O2 Flow Rate FiO2 12/07/18 10:46 97.8 88 18 129/78 (95) 100 Nasal Cannula 2.0 97.8 Physical Exam Physical Exam GENERAL: Propped up in bed, resting quietly HEENT: Oral cavity,pharynx pink and moist. NECK: Supple. LUNGS: Clear to auscultation. HEART: S1 and S2. ABDOMEN: Mild distension. Dressed. PD in place -clean EXTREMITIES: No gross edema or cyanosis. SKIN: Warm without generalized rash. NEUROLOGIC: Arouses to name, responds appropriately Right-sided tunneled HD catheter out. no redness or drainage PIV ok General: Alert, Oriented X3, Cooperative, No acute distress Heart: Regular rate Lungs: Clear Abdomen: Soft, No tenderness Extremities: No clubbing, No cyanosis Skin: No breakdown Labs LABS Laboratory Tests Test 12/06/18 17:49 12/06/18 21:24 12/07/18 03:30 12/07/18 08:13 Glucose (Fingerstick) 119 mg/dL (70-99) 303 mg/dL (70-99) 172 mg/dL (70-99) White Blood Count 10.0 x10^3/uL (4.0-11.0) Red Blood Count 2.48 x10^6/uL (4.30-5.70) Hemoglobin 6.9 g/dL (13.0-17.5) Hematocrit 20.8 % (39.0-53.0) Mean Corpuscular Volume 84 fL (79-100) Mean Corpuscular Hemoglobin 28 pg (25-35) Mean Corpuscular Hemoglobin Concent 33 g/dL (31-37) Red Cell Distribution Width 17.5 % (11.5-14.5) Platelet Count 399 x10^3/uL (140-400) Neutrophils (%) (Auto) 72 % (31-73) Lymphocytes (%) (Auto) 12 % (24-48) Monocytes (%) (Auto) 10 % (0-9) Eosinophils (%) (Auto) 6 % (0-3) Basophils (%) (Auto) 1 % (0-3) Neutrophils # (Auto) 7.3 x10^3uL (1.8-7.7) Lymphocytes # (Auto) 1.2 x10^3/uL (1.0-4.8) Monocytes # (Auto) 1.0 x10^3/uL (0.0-1.1) Eosinophils # (Auto) 0.6 x10^3/uL (0.0-0.7) Basophils # (Auto) 0.1 x10^3/uL (0.0-0.2) Sodium Level 136 mmol/L (136-145) Potassium Level 4.7 mmol/L (3.5-5.1) Chloride Level 98 mmol/L (98-107) Carbon Dioxide Level 26 mmol/L (21-32) Anion Gap 12 (6-14) Blood Urea Nitrogen 34 mg/dL (8-26) Creatinine 12.5 mg/dL (0.7-1.3) Estimated GFR (Cockcroft-Gault) 5.5 BUN/Creatinine Ratio 3 (6-20) Glucose Level 276 mg/dL (70-99) Calcium Level 8.4 mg/dL (8.5-10.1) Total Bilirubin 0.2 mg/dL (0.2-1.0) Aspartate Amino Transf (AST/SGOT) 16 U/L (15-37) Alanine Aminotransferase (ALT/SGPT) 18 U/L (16-63) Alkaline Phosphatase 122 U/L (46-116) Total Protein 6.4 g/dL (6.4-8.2) Albumin 2.1 g/dL (3.4-5.0) Albumin/Globulin Ratio 0.5 (1.0-1.7) Assessment and Plan Assessmemt and Plan Problems Medical Problems: (1) Abnormal EKG Status: Acute (2) Elevated troponin Status: Acute (3) End stage renal disease Status: Acute (4) Fever Status: Acute Comment Review of Relevant I have reviewed the following items javy (where applicable) has been applied. Labs Laboratory Tests Test 12/05/18 17:07 12/05/18 20:31 12/06/18 04:00 12/06/18 07:58 Glucose (Fingerstick) 93 mg/dL (70-99) 145 mg/dL (70-99) 138 mg/dL (70-99) White Blood Count 9.4 x10^3/uL (4.0-11.0) Red Blood Count 2.58 x10^6/uL (4.30-5.70) Hemoglobin 7.1 g/dL (13.0-17.5) Hematocrit 22.0 % (39.0-53.0) Mean Corpuscular Volume 85 fL (79-100) Mean Corpuscular Hemoglobin 27 pg (25-35) Mean Corpuscular Hemoglobin Concent 32 g/dL (31-37) Red Cell Distribution Width 18.3 % (11.5-14.5) Platelet Count 347 x10^3/uL (140-400) Neutrophils (%) (Auto) 74 % (31-73) Lymphocytes (%) (Auto) 11 % (24-48) Monocytes (%) (Auto) 10 % (0-9) Eosinophils (%) (Auto) 6 % (0-3) Basophils (%) (Auto) 1 % (0-3) Neutrophils # (Auto) 6.9 x10^3uL (1.8-7.7) Lymphocytes # (Auto) 1.0 x10^3/uL (1.0-4.8) Monocytes # (Auto) 0.9 x10^3/uL (0.0-1.1) Eosinophils # (Auto) 0.5 x10^3/uL (0.0-0.7) Basophils # (Auto) 0.1 x10^3/uL (0.0-0.2) Sodium Level 139 mmol/L (136-145) Potassium Level 4.0 mmol/L (3.5-5.1) Chloride Level 101 mmol/L (98-107) Carbon Dioxide Level 26 mmol/L (21-32) Anion Gap 12 (6-14) Blood Urea Nitrogen 21 mg/dL (8-26) Creatinine 9.2 mg/dL (0.7-1.3) Estimated GFR (Cockcroft-Gault) 7.9 BUN/Creatinine Ratio 2 (6-20) Glucose Level 86 mg/dL (70-99) Calcium Level 8.9 mg/dL (8.5-10.1) Total Bilirubin 0.2 mg/dL (0.2-1.0) Aspartate Amino Transf (AST/SGOT) 16 U/L (15-37) Alanine Aminotransferase (ALT/SGPT) 52 U/L (16-63) Alkaline Phosphatase 119 U/L (46-116) Total Protein 6.5 g/dL (6.4-8.2) Albumin 2.0 g/dL (3.4-5.0) Albumin/Globulin Ratio 0.4 (1.0-1.7) Test 12/06/18 11:58 12/06/18 17:49 12/06/18 21:24 12/07/18 03:30 Glucose (Fingerstick) 218 mg/dL (70-99) 119 mg/dL (70-99) 303 mg/dL (70-99) White Blood Count 10.0 x10^3/uL (4.0-11.0) Red Blood Count 2.48 x10^6/uL (4.30-5.70) Hemoglobin 6.9 g/dL (13.0-17.5) Hematocrit 20.8 % (39.0-53.0) Mean Corpuscular Volume 84 fL (79-100) Mean Corpuscular Hemoglobin 28 pg (25-35) Mean Corpuscular Hemoglobin Concent 33 g/dL (31-37) Red Cell Distribution Width 17.5 % (11.5-14.5) Platelet Count 399 x10^3/uL (140-400) Neutrophils (%) (Auto) 72 % (31-73) Lymphocytes (%) (Auto) 12 % (24-48) Monocytes (%) (Auto) 10 % (0-9) Eosinophils (%) (Auto) 6 % (0-3) Basophils (%) (Auto) 1 % (0-3) Neutrophils # (Auto) 7.3 x10^3uL (1.8-7.7) Lymphocytes # (Auto) 1.2 x10^3/uL (1.0-4.8) Monocytes # (Auto) 1.0 x10^3/uL (0.0-1.1) Eosinophils # (Auto) 0.6 x10^3/uL (0.0-0.7) Basophils # (Auto) 0.1 x10^3/uL (0.0-0.2) Sodium Level 136 mmol/L (136-145) Potassium Level 4.7 mmol/L (3.5-5.1) Chloride Level 98 mmol/L (98-107) Carbon Dioxide Level 26 mmol/L (21-32) Anion Gap 12 (6-14) Blood Urea Nitrogen 34 mg/dL (8-26) Creatinine 12.5 mg/dL (0.7-1.3) Estimated GFR (Cockcroft-Gault) 5.5 BUN/Creatinine Ratio 3 (6-20) Glucose Level 276 mg/dL (70-99) Calcium Level 8.4 mg/dL (8.5-10.1) Total Bilirubin 0.2 mg/dL (0.2-1.0) Aspartate Amino Transf (AST/SGOT) 16 U/L (15-37) Alanine Aminotransferase (ALT/SGPT) 18 U/L (16-63) Alkaline Phosphatase 122 U/L (46-116) Total Protein 6.4 g/dL (6.4-8.2) Albumin 2.1 g/dL (3.4-5.0) Albumin/Globulin Ratio 0.5 (1.0-1.7) Test 12/07/18 08:13 Glucose (Fingerstick) 172 mg/dL (70-99) Laboratory Tests Test 12/06/18 17:49 12/06/18 21:24 12/07/18 03:30 12/07/18 08:13 Glucose (Fingerstick) 119 mg/dL (70-99) 303 mg/dL (70-99) 172 mg/dL (70-99) White Blood Count 10.0 x10^3/uL (4.0-11.0) Red Blood Count 2.48 x10^6/uL (4.30-5.70) Hemoglobin 6.9 g/dL (13.0-17.5) Hematocrit 20.8 % (39.0-53.0) Mean Corpuscular Volume 84 fL (79-100) Mean Corpuscular Hemoglobin 28 pg (25-35) Mean Corpuscular Hemoglobin Concent 33 g/dL (31-37) Red Cell Distribution Width 17.5 % (11.5-14.5) Platelet Count 399 x10^3/uL (140-400) Neutrophils (%) (Auto) 72 % (31-73) Lymphocytes (%) (Auto) 12 % (24-48) Monocytes (%) (Auto) 10 % (0-9) Eosinophils (%) (Auto) 6 % (0-3) Basophils (%) (Auto) 1 % (0-3) Neutrophils # (Auto) 7.3 x10^3uL (1.8-7.7) Lymphocytes # (Auto) 1.2 x10^3/uL (1.0-4.8) Monocytes # (Auto) 1.0 x10^3/uL (0.0-1.1) Eosinophils # (Auto) 0.6 x10^3/uL (0.0-0.7) Basophils # (Auto) 0.1 x10^3/uL (0.0-0.2) Sodium Level 136 mmol/L (136-145) Potassium Level 4.7 mmol/L (3.5-5.1) Chloride Level 98 mmol/L (98-107) Carbon Dioxide Level 26 mmol/L (21-32) Anion Gap 12 (6-14) Blood Urea Nitrogen 34 mg/dL (8-26) Creatinine 12.5 mg/dL (0.7-1.3) Estimated GFR (Cockcroft-Gault) 5.5 BUN/Creatinine Ratio 3 (6-20) Glucose Level 276 mg/dL (70-99) Calcium Level 8.4 mg/dL (8.5-10.1) Total Bilirubin 0.2 mg/dL (0.2-1.0) Aspartate Amino Transf (AST/SGOT) 16 U/L (15-37) Alanine Aminotransferase (ALT/SGPT) 18 U/L (16-63) Alkaline Phosphatase 122 U/L (46-116) Total Protein 6.4 g/dL (6.4-8.2) Albumin 2.1 g/dL (3.4-5.0) Albumin/Globulin Ratio 0.5 (1.0-1.7) Microbiology 12/04/18 Blood Culture - Preliminary, Resulted NO GROWTH AFTER 3 DAYS 12/05/18 Aerobic Culture, Resulted Pending 12/05/18 Aerobic Culture Result 1 (NOLAN), Resulted Pending 12/05/18 Gram Stain - Final, Resulted 12/05/18 Gram Stain Result 1 (NOLAN) - Final, Resulted 12/05/18 Gram Stain Result 2 (NOLAN) - Final, Resulted Medications Current Medications Vancomycin HCl (Vanco Per Pharmacy) 1 each 1X ONCE MC ; Start 11/29/18 at 18:15 ; Stop 11/29/18 at 18:16; Status Cancel Piperacillin Sod/ Tazobactam Sod 3.375 gm/Sodium Chloride 50 ml @ 100 mls/hr 1X ONCE IV Last administered on 11/29/18at 18:45; Admin Dose 100 MLS/HR; Start 11/29/18 at 18:15; Stop 11/29/18 at 18:44; Status DC Ondansetron HCl (Zofran) 4 mg 1X ONCE IV Last administered on 11/29/18at 18:43 ; Admin Dose 4 MG; Start 11/29/18 at 18:15; Stop 11/29/18 at 18:23; Status DC Vancomycin HCl 2 gm/Sodium Chloride 500 ml @ 250 mls/hr 1X ONCE IV Last administered on 11/29/18at 18:46; Admin Dose 250 MLS/HR; Start 11/29/18 at 19:00 ; Stop 11/29/18 at 20:59; Status DC Iron Sucrose 200 mg/Sodium Chloride 110 ml @ 55 mls/hr 1X ONCE IV Last administered on 11/29/18at 22:20; Admin Dose 55 MLS/HR; Start 11/29/18 at 19:15; Stop 11/29/18 at 21:14; Status DC Ondansetron HCl (Zofran) 4 mg PRN Q8HRS PRN IV NAUSEA/VOMITING; Start 11/29/18 at 19:30; Stop 11/29/18 at 19:36; Status DC Fentanyl Citrate (Fentanyl 2ml Vial) 50 mcg PRN Q1HR PRN IV PAIN Last administered on 11/30/18 16:23; Admin Dose 50 MCG; Start 11/29/18 at 19:30; Stop 11/30/18 at 19:29; Status DC Acetaminophen (Tylenol) 650 mg PRN Q4HRS PRN PO FEVER Last administered on 11/30 17:35; Admin Dose 650 MG; Start 11/29/18 at 19:30; Stop 11/30/18 at 19:29 ; Status DC Ondansetron HCl (Zofran) 4 mg PRN Q6HRS PRN IV NAUSEA/VOMITING Last administered on 12/04/18 17:52; Admin Dose 4 MG; Start 11/29/18 at 19:45 Amlodipine Besylate (Norvasc) 10 mg DAILY PO Last administered on 12/07/18 08: 42; Admin Dose 10 MG; Start 11/30/18 at 09:00 Clonidine HCl (Catapres) 0.2 mg BID PO Last administered on 12/07/18 08:43; Admin Dose 0.2 MG; Start 11/29/18 at 21:00 Docusate Sodium (Colace) 100 mg BID PO Last administered on 12/07/18 08:40; Admin Dose 100 MG; Start 11/29/18 at 21:00 Furosemide (Lasix) 80 mg BID92 PO Last administered on 12/07/18 08:43; Admin Dose 80 MG; Start 11/29/18 at 20:00 Insulin Glargine (Lantus) 32 units HS SQ Last administered on 12/06/18 21:36; Admin Dose 32 UNITS; Start 11/29/18 at 21:00 Lisinopril (Prinivil) 40 mg BID PO Last administered on 12/07/18 08:44; Admin Dose 40 MG; Start 11/29/18 at 21:00 Sevelamer Carbonate (Renvela) 4,000 mg TIDWMEALS PO Last administered on 08:40; Admin Dose 4,000 MG; Start 11/30/18 at 08:00 Calcitriol (Rocaltrol) 0.25 mcg DAILY PO Last administered on 12/07/18 08:43; Admin Dose 0.25 MCG; Start 11/30/18 at 09:00 Carvedilol (Coreg) 12.5 mg BIDWMEALS PO Last administered on 12/07/18 08:44; Admin Dose 12.5 MG; Start 11/30/18 at 08:00 Vitamin D (Vitamin D3) 5,000 unit DAILY PO Last administered on 12/07/18 08:40 ; Admin Dose 5,000 UNIT; Start 11/30/18 at 09:00 Cinacalcet (Sensipar) 60 mg DAILY PO Last administered on 12/07/18 08:43; Admin Dose 60 MG; Start 11/30/18 at 09:00 Polyethylene Glycol (miraLAX PACKET) 17 gm DAILY PO Last administered on 08:40; Admin Dose 17 GM; Start 11/30/18 at 09:00 Sennosides (Senna) 8.6 mg BID PO Last administered on 12/07/18 08:43; Admin Dose 8.6 MG; Start 11/29/18 at 21:00 Simvastatin (Zocor) 20 mg HS PO Last administered on 12/06/18 21:27; Admin Dose 20 MG; Start 11/29/18 at 21:00 Vitamin B Complex/ Vitamin C (Johanna-Celia) 1 tab DAILY PO Last administered on 08:43; Admin Dose 1 TAB; Start 11/30/18 at 09:00 Insulin Human Lispro (HumaLOG) 0-9 UNITS TIDWMEALS SQ Last administered on 11/29 22:44; Admin Dose 5 UNITS; Start 11/30/18 at 08:00; Stop 11/30/18 at 10:28 ; Status DC Dextrose (Dextrose 50%-Water Syringe) 12.5 gm PRN Q15MIN PRN IV SEE COMMENTS; Start 11/29/18 at 19:45 Aspirin (Anshul Aspirin) 325 mg 1X ONCE PO Last administered on 11/29/18 20:19 ; Admin Dose 325 MG; Start 11/29/18 at 19:45; Stop 11/29/18 at 19:46; Status DC Labetalol HCl (Normodyne Iv Push) 10 mg PRN Q2HR PRN IVP HYPERTENSION, SEE COMMENTS Last administered on 2/20/19at 04:25; Admin Dose 10 MG; Start 11/30/18 at 04:00 Sodium Chloride 1,000 ml @ 100 mls/hr 1X ONCE IV Last administered on at 04:17; Admin Dose 100 MLS/HR; Start 11/30/18 at 04:30; Stop 11/30/18 at 05: 57; Status DC Darbepoetin David (Aranesp) 100 mcg 1X ONCE SQ Last administered on 11/30/18at 06:06; Admin Dose 100 MCG; Start 11/30/18 at 07:00; Stop 11/30/18 at 07:01; Status DC Sodium Chloride 1,000 ml @ 1,000 mls/hr Q1H PRN IV hypotension; Start 11/30/18 at 07:34; Stop 11/30/18 at 13:39; Status DC Albumin Human 200 ml @ 200 mls/hr 1X PRN PRN IV Hypotension; Start 11/30/18 at 07:45; Stop 11/30/18 at 13:44; Status DC Diphenhydramine HCl (Benadryl) 25 mg 1X PRN PRN IV ITCHING; Start 11/30/18 at 07:45; Stop 12/01/18 at 07:44; Status DC Sodium Chloride 1,000 ml @ 400 mls/hr Q2H30M PRN IV PATENCY; Start 11/30/18 at 07:34; Stop 11/30/18 at 19:33; Status DC Info (PHARMACY MONITORING -- do not chart) 1 each PRN DAILY PRN MC SEE COMMENTS ; Start 11/30/18 at 07:45; Stop 12/03/18 at 15:49; Status DC Info (PHARMACY MONITORING -- do not chart) 1 each PRN DAILY PRN MC SEE COMMENTS ; Start 11/30/18 at 07:45; Status UNV Darbepoetin David (Aranesp) 60 mcg WEEKLYHS SQ ; Start 11/30/18 at 21:00; Stop at 21:00; Status DC Darbepoetin David (Aranesp) 60 mcg WEEKLYHS SQ ; Start 12/07/18 at 21:00 Insulin Human Lispro (HumaLOG) 0-9 UNITS TIDWMEALS SQ Last administered on 12/07at 08:40; Admin Dose 4 UNITS; Start 11/30/18 at 12:00 Dextrose (Dextrose 50%-Water Syringe) 12.5 gm PRN Q15MIN PRN IV SEE COMMENTS; Start 11/30/18 at 10:30; Status UNV Vancomycin HCl (Vanco Per Pharmacy) 1 each PRN DAILY PRN MC SEE COMMENTS Last administered on 12/03/18at 15:53; Admin Dose 1 EACH; Start 11/30/18 at 12:15; Stop 12/04/18 at 08:03; Status DC Piperacillin Sod/ Tazobactam Sod (Zosyn Per Pharmacy) 1 each PRN DAILY PRN MC SEE COMMENTS; Start 11/30/18 at 12:15; Stop 12/05/18 at 10:11; Status DC Piperacillin Sod/ Tazobactam Sod 2.25 gm/Sodium Chloride 50 ml @ 100 mls/hr Q8HRS IV Last administered on 12/05/18at 06:00; Admin Dose 100 MLS/HR; Start at 13:00; Stop 12/05/18 at 10:11; Status DC Calcium Carbonate/ Glycine (Tums) 500 mg PRN BID PRN PO INDIGESTION; Start at 13:30 Albuterol Sulfate (Ventolin Neb Soln) 2.5 mg PRN Q6HRS PRN NEB SHORTNESS OF BREATH; Start 11/30/18 at 13:45 Non-Formulary Medication (Epoetin David (Procrit)) 10,000 unit WEEKLY IJ ; Start 12/07/18 at 09:00; Stop 12/07/18 at 09:00; Status DC Fluticasone Propionate (Flonase) 2 spray DAILY NS Last administered on at 08:39; Admin Dose 2 SPRAY; Start 11/30/18 at 14:00 Pantoprazole Sodium (Protonix) 40 mg DAILYAC PO Last administered on 12/07/18at 08:41; Admin Dose 40 MG; Start 11/30/18 at 14:00 Vancomycin HCl (Vancomycin Random Level) 1 each 1X ONCE MC Last administered on 11/30/18at 16:00; Admin Dose 1 EACH; Start 11/30/18 at 16:00; Stop 11/30/18 at 16:01; Status DC Sodium Cl/Sod Bicarb/Potass Cl/ PEG (Golytely) 4,000 ml 1X ONCE PO Last administered on 11/30/18at 17:33; Admin Dose 4,000 ML; Start 11/30/18 at 18:00; Stop 11/30/18 at 18:01; Status DC Polyethylene Glycol (miraLAX PACKET) 17 gm PRN DAILY PRN PO CONSTIPATION; Start 11/30/18 at 17:00 Acetaminophen (Tylenol) 650 mg PRN Q4HRS PRN PO FEVER Last administered on 12/05at 18:06; Admin Dose 650 MG; Start 11/30/18 at 20:15 Vancomycin HCl 500 mg/Sodium Chloride 100 ml @ 100 mls/hr QMWF IV Last administered on 12/03/18at 16:53; Admin Dose 100 MLS/HR; Start 12/01/18 at 16:00 ; Stop 12/04/18 at 08:03; Status DC Sodium Chloride 1,000 ml @ 1,000 mls/hr Q1H PRN IV hypotension; Start 12/01/18 at 07:00; Stop 12/01/18 at 18:00; Status DC Sodium Chloride 1,000 ml @ 400 mls/hr Q2H30M PRN IV PATENCY; Start 12/01/18 at 07:00; Stop 12/01/18 at 18:59; Status DC Info (PHARMACY MONITORING -- do not chart) 1 each PRN DAILY PRN MC SEE COMMENTS ; Start 12/01/18 at 10:30; Status UNV Info (PHARMACY MONITORING -- do not chart) 1 each PRN DAILY PRN MC SEE COMMENTS ; Start 12/01/18 at 10:30; Status UNV Heparin Sodium (Porcine) 5000 unit/Sodium Chloride 505 ml @ 505 mls/hr 1X ONCE IRR Last administered on 12/02/18at 11:05; Start 12/02/18 at 07:00; Stop at 07:59; Status DC Bupivacaine HCl/ Epinephrine Bitart (Sensorcain-Mpf Epi 0.5%-[id number]) 30 ml STK -MED ONCE .ROUTE Last administered on 12/02/18at 11:05; Admin Dose 10 ML; Start 12/02/18 at 07:36; Stop 12/02/18 at 07:37; Status DC Fentanyl Citrate (Fentanyl 2ml Vial) 100 mcg STK-MED ONCE .ROUTE ; Start at 09:05; Stop 12/02/18 at 09:06; Status DC Rocuronium Birney (Zemuron) 50 mg STK-MED ONCE .ROUTE ; Start 12/02/18 at 09:05 ; Stop 12/02/18 at 09:06; Status DC Lidocaine HCl (Lidocaine Pf 2% Vial) 5 ml STK-MED ONCE .ROUTE ; Start 12/02/18 at 09:05; Stop 12/02/18 at 09:06; Status DC Propofol 20 ml @ As Directed STK-MED ONCE IV ; Start 12/02/18 at 09:06; Stop at 09:07; Status DC Dexamethasone Sodium Phosphate (Decadron) 20 mg STK-MED ONCE .ROUTE ; Start at 09:06; Stop 12/02/18 at 09:07; Status DC Ondansetron HCl (Zofran) 4 mg STK-MED ONCE .ROUTE ; Start 12/02/18 at 09:06; Stop 12/02/18 at 09:07; Status DC Insulin Human Lispro (HumaLOG) 10 units 1X ONCE SQ ; Start 12/02/18 at 09:45; Stop 12/02/18 at 09:46; Status DC Levofloxacin/ Dextrose 100 ml @ As Directed STK-MED ONCE IV ; Start 12/02/18 at 10:46; Stop 12/02/18 at 10:47; Status DC Metoclopramide HCl (Reglan Vial) 10 mg STK-MED ONCE .ROUTE ; Start 12/02/18 at 10:59; Stop 12/02/18 at 11:00; Status DC Neostigmine Methylsulfate (Bloxiverz) 10 mg STK-MED ONCE .ROUTE ; Start at 12:25; Stop 12/02/18 at 12:26; Status DC Glycopyrrolate (Robinul) 1 mg STK-MED ONCE .ROUTE ; Start 12/02/18 at 12:25; Stop 12/02/18 at 12:26; Status DC Sevoflurane (Ultane) 90 ml STK-MED ONCE IH ; Start 12/02/18 at 12:27; Stop 12/02 at 12:28; Status DC Ondansetron HCl (Zofran) 4 mg PRN Q6HRS PRN IV NAUSEA/VOMITING; Start 12/02/18 at 13:00; Stop 12/03/18 at 12:59; Status DC Fentanyl Citrate (Fentanyl 2ml Vial) 25 mcg PRN Q5MIN PRN IV MILD PAIN; Start 12/02/18 at 13:00; Stop 12/02/18 at 20:24; Status DC Fentanyl Citrate (Fentanyl 2ml Vial) 50 mcg PRN Q5MIN PRN IV MODERATE TO SEVERE PAIN Last administered on 12/02/18at 13:46; Admin Dose 50 MCG; Start 12/02 at 13:00; Stop 12/02/18 at 20:24; Status DC Morphine Sulfate (Morphine Sulfate) 1 mg PRN Q10MIN PRN IV SEVERE PAIN; Start 12/02/18 at 13:00; Stop 12/02/18 at 20:24; Status DC Ringer's Solution 1,000 ml @ 30 mls/hr Q24H IV ; Start 12/02/18 at 12:51; Stop 12/03/18 at 00:50; Status DC Lidocaine HCl (Xylocaine-Mpf 1% 2ml Vial) 2 ml 1X PRN PRN ID IV START; Start at 13:00; Stop 12/03/18 at 12:59; Status DC Hydromorphone HCl (Dilaudid) 0.5 mg PRN Q10MIN PRN IV SEV PAIN, Second choice Last administered on 12/02/18at 16:52; Admin Dose 0.5 MG; Start 12/02/18 at 13:00 ; Stop 12/03/18 at 12:59; Status DC Prochlorperazine Edisylate (Compazine) 5 mg PACU PRN PRN IV NAUSEA, MRX1; Start 12/02/18 at 13:00; Stop 12/03/18 at 12:59; Status DC Sodium Chloride 1,000 ml @ 100 mls/hr Q10H IV Last administered on 12/02/18at 13:04; Admin Dose 100 MLS/HR; Start 12/02/18 at 10:45; Stop 12/03/18 at 10:14; Status DC Hydromorphone HCl (Dilaudid) 1 mg PRN Q4HRS PRN IV pain Last administered on at 18:31; Admin Dose 1 MG; Start 12/02/18 at 13:15; Stop 12/02/18 at 20:24 ; Status DC Oxycodone/ Acetaminophen (Percocet 5/325) 1 tab PRN Q4HRS PRN PO PAIN Last administered on 12/03/18at 21:15; Admin Dose 1 TAB; Start 12/02/18 at 13:15 Levofloxacin/ Dextrose 100 ml @ 100 mls/hr 1X ONCE IV ; Start 12/02/18 at 10: 45; Stop 12/02/18 at 13:23; Status DC Lactobacillus Rhamnosus (Culturelle) 1 cap BID PO Last administered on at 08:43; Admin Dose 1 CAP; Start 12/02/18 at 21:00 Hydromorphone HCl (Dilaudid) 1 mg PRN Q3HRS PRN IV SEVERE PAIN Last administered on 12/03/18at 21:16; Admin Dose 1 MG; Start 12/02/18 at 20:30 Levofloxacin/ Dextrose (LEVAQUIN 500mg PREMIX) 500 mg STK-MED ONCE IV ; Start at 11:00; Stop 12/03/18 at 08:41; Status DC Sodium Chloride 1,000 ml @ 1,000 mls/hr Q1H PRN IV hypotension; Start 12/03/18 at 07:00; Stop 12/03/18 at 12:59; Status DC Sodium Chloride 1,000 ml @ 400 mls/hr Q2H30M PRN IV PATENCY; Start 12/03/18 at 07:00; Stop 12/03/18 at 18:59; Status DC Info (PHARMACY MONITORING -- do not chart) 1 each PRN DAILY PRN MC SEE COMMENTS ; Start 12/03/18 at 08:45; Status UNV Info (PHARMACY MONITORING -- do not chart) 1 each PRN DAILY PRN MC SEE COMMENTS ; Start 12/03/18 at 08:45 Sodium Chloride 1,000 ml @ 1,000 mls/hr Q1H PRN IV hypotension; Start 12/05/18 at 07:00; Stop 12/05/18 at 12:59; Status DC Sodium Chloride 1,000 ml @ 400 mls/hr Q2H30M PRN IV PATENCY; Start 12/05/18 at 07:00; Stop 12/05/18 at 18:59; Status DC Info (PHARMACY MONITORING -- do not chart) 1 each PRN DAILY PRN MC SEE COMMENTS ; Start 12/05/18 at 08:15; Status UNV Info (PHARMACY MONITORING -- do not chart) 1 each PRN DAILY PRN MC SEE COMMENTS ; Start 12/05/18 at 08:15; Status UNV Cefazolin Sodium 1 gm/Dextrose 50 ml @ 100 mls/hr Q12HR IV Last administered on 12/07/18at 08:40; Admin Dose 100 MLS/HR; Start 12/05/18 at 12:00 Magnesium Sulfate 50 ml @ 25 mls/hr PRN DAILY PRN IV for Mag < 1.7 on am labs; Start 12/07/18 at 10:00 Active Scripts Active Reported Protonix (Pantoprazole Sodium) 20 Mg Tablet.dr 2 Tab PO DAILY Flonase Allergy Relief (Fluticasone Propionate) 9.9 Ml [place].susp 2 Sprays NS DAILY Procrit (Epoetin David) 10,000 Unit/1 Ml Vial 10,000 Unit IJ WEEKLY Tums (Calcium Carbonate) 200 Mg Tab.chew 200 Mg PO BID PRN Proair Respiclick (Albuterol Sulfate) 90 Mcg Aer.pow.ba 1-2 Puff IH PRN Q6HRS PRN Senna (Sennosides) 8.6 Mg Tablet 8.6 Mg PO BID Miralax (Polyethylene Glycol 3350) 17 Gm Powd.pack 1 Packet PO DAILY Colace (Docusate Sodium) 100 Mg Capsule 1 Cap PO BID Carvedilol 25 Mg Tablet 25 Mg PO BIDWMEALS Renvela (Sevelamer Carbonate) 800 Mg Tablet 5 Tab PO TIDWMEALS Furosemide 80 Mg Tablet 1 Tab PO BID Vitamin D (Cholecalciferol (Vitamin D3)) 5,000 Unit Tablet 5,000 Unit PO DAILY Calcitriol 0.25 Mcg Capsule 2 Cap PO DAILY Clonidine Hcl 0.2 Mg Tablet 1 Tab PO BID Johanna-Celia Rx Tablet (Vit B Cmplx 3/Fa/Vit C/Biotin) 1 Each Tablet 1 Each PO DAILY Sensipar (Cinacalcet Hcl) 60 Mg Tablet 60 Mg PO DAILY Amlodipine Besylate 10 Mg Tablet 10 Mg PO DAILY Simvastatin 20 Mg Tablet 20 Mg PO HS Lisinopril 40 Mg Tablet 1 Tab PO BID Novolog (Insulin Aspart) 100 Unit/1 Ml Vial 100 Unit SQ sliding scale Lantus Solostar (Insulin Glargine,Hum.rec.anlog) 100 Unit/1 Ml Insuln.pen 15 Unit SQ HS Vitals/I & O Vital Sign - Last 24 Hours 12/06/18 12/06/18 12/06/18 12/06/18 15:00 18:18 19:05 19:53 Temp 97.9 98.3 97.9 98.3 Pulse 72 88 Resp 16 16 B/P (MAP) 126/82 (97) 149/81 135/80 (98) Pulse Ox 99 95 O2 Delivery Room Air Room Air Room Air 12/06/18 12/06/18 12/06/18 12/07/18 21:27 21:30 23:19 03:25 Temp 98.2 97.8 98.2 97.8 Pulse 88 88 92 78 Resp 16 16 B/P (MAP) 135/80 135/80 141/85 (103) 133/82 (99) Pulse Ox 97 100 O2 Delivery Room Air Room Air 12/07/18 12/07/18 12/07/18 12/07/18 07:53 07:54 08:42 08:43 Temp 97.7 97.7 Pulse 77 Resp 18 B/P (MAP) 140/81 (100) 140/77 140/81 Pulse Ox 98 O2 Delivery Room Air Room Air 12/07/18 12/07/18 12/07/18 08:44 08:44 10:46 Temp 97.8 97.8 Pulse 88 Resp 18 B/P (MAP) 140/81 140/81 129/78 (95) Pulse Ox 100 O2 Delivery Nasal Cannula O2 Flow Rate 2.0 Intake and Output 12/06/18 12/06/18 12/07/18 15:00 23:00 07:00 Intake Total 480 ml 440 ml 300 ml Output Total 0 ml Balance 480 ml 440 ml 300 ml ACOSTA OSPINA MD Dec 07, 2018 12:47
[2018-12-07 18:55] VITALS: BP 134/81
[2018-12-07] MEDS ORDERED: DARBEPOETIN ALFA 60 MCG/0.3 ML DISP.SYRIN. SQ SCH (21:00)
[2018-12-07] MEDS: SIMVASTATIN 20 MG TABLET PO SCH (21:32)
[2018-12-07] MEDS: INSULIN GLARGINE 300 UNITS/3 ML INSULN.PEN. SQ SCH (21:46)
[2018-12-07 22:35] VITALS: BP 152/89
[2018-12-07 23:00] VITALS: BP 152/93
[2018-12-08] VITALS (7 sets, daily range): BP systolic 148–176; BP diastolic 90–96
[2018-12-08] MEDS: PANTOPRAZOLE 40 MG TABLET.DR. PO SCH (07:30)
[2018-12-08] MEDS: DEXTROSE 50% 25 GM / 50ML DISP.SYRIN. IV PRN ×2 (07:31→10:07)
--- NOTE | 2018-12-08 07:38 | NUR ---
Assumed care of patient this AM. Upon VS and blood check, nursing coordinator notified this RN patients blood sugar = 37. Patient statedhe could feel that it was low. Patient is NPO for planned procedure therefore administered half amp of Dextrose 50%. Educated patient of department protocol to recheck blood sugar in 15 minutes. Patient verbalized understanding. Will continue to monitor.
[2018-12-08 07:52] LABS: ALBUMIN 2.1 g/dL (3.4-5.0); CALCIUM 8.7 mg/dL (8.5-10.1); CREATININE 14.7 mg/dL (0.7-1.3); GFR 4.6; MAGNESIUM 2.7 mg/dL (1.8-2.4); PHOSPHORUS 6.8 mg/dL (2.6-4.7); POTASSIUM 4.7 mmol/L (3.5-5.1)
[2018-12-08] MEDS: INSULIN LISPRO 300 UNITS/3 ML INSULN.PEN. SQ SCH ×3 (08:00→18:02)
[2018-12-08] MEDS: CARVEDILOL 12.5 MG TABLET. PO SCH ×2 (08:00→17:46)
[2018-12-08] MEDS: SEVELAMER CARBONATE 800 MG TABLET. PO SCH ×4 (08:00→17:47)
--- NOTE | 2018-12-08 08:09 | PDOC ---
Infectious Disease Note Subjective Subjective sleepy but says is feeling good ROS ROS no n/v/d/sob/fever Vital Sign Vital Signs Vital Signs Date Time Temp Pulse Resp B/P (MAP) Pulse Ox O2 Delivery O2 Flow Rate FiO2 12/08/18 02:38 98.3 69 16 155/91 (112) 99 Room Air 98.3 12/07/18 10:46 2.0 Physical Exam PHYSICAL EXAM GENERAL: Propped up in bed, resting quietly HEENT: Oral cavity,pharynx pink and moist. NECK: Supple. LUNGS: Clear to auscultation. HEART: S1 and S2. ABDOMEN: Mild distension. Dressed. PD in place -clean EXTREMITIES: No gross edema or cyanosis. SKIN: Warm without generalized rash. NEUROLOGIC: Arouses to name, responds appropriately Right-sided tunneled HD catheter out. no redness or drainage PIV ok Labs Lab Laboratory Tests Test 12/07/18 08:13 12/07/18 12:45 12/07/18 17:36 12/07/18 20:30 Glucose (Fingerstick) 172 mg/dL (70-99) 183 mg/dL (70-99) 236 mg/dL (70-99) 236 mg/dL (70-99) Test 12/08/18 06:30 Hemoglobin 7.2 g/dL (13.0-17.5) Sodium Level 138 mmol/L (136-145) Potassium Level 4.7 mmol/L (3.5-5.1) Chloride Level 100 mmol/L (98-107) Carbon Dioxide Level 26 mmol/L (21-32) Anion Gap 12 (6-14) Blood Urea Nitrogen 46 mg/dL (8-26) Creatinine 14.7 mg/dL (0.7-1.3) Estimated GFR (Cockcroft-Gault) 4.6 Glucose Level 58 mg/dL (70-99) Calcium Level 8.7 mg/dL (8.5-10.1) Phosphorus Level 6.8 mg/dL (2.6-4.7) Magnesium Level 2.7 mg/dL (1.8-2.4) Albumin 2.1 g/dL (3.4-5.0) Micro Microbiology 12/04/18 Blood Culture - Preliminary, Resulted NO GROWTH AFTER 3 DAYS 12/05/18 Aerobic Culture - Preliminary, Resulted 12/05/18 Aerobic Culture Result 1 (NOLAN) - Preliminary, Resulted 12/05/18 Gram Stain - Final, Resulted 12/05/18 Gram Stain Result 1 (NOLAN) - Final, Resulted 12/05/18 Gram Stain Result 2 (NOLAN) - Final, Resulted Objective Assessment Sepsis POA, 11/29 with MSSA bacteremia. ? line infection - clinically better. Repeat BC from NGTD -s/p HDC removal, 12/05. Tip cx pending. Echo neg veg. Leukocytosis - up post procedure and steroids, 12/02. better Transaminitis ? sepsis - improving Fever - better PCN allergy - nausea. Has tolerated Zosyn without problem Constipation Acute diastolic CHF CKD on HD s/p HDC on 11/26 and removal on 12/05. Malfunctioning peritoneal catheter -s/p repositioning 12/02 Anemia. s/p iron and PRBCs Diabetes Plan Plan of Care Repeat Blood cults - 12/04 NGTD May replace temp HD cath on 12/08 Continue cefazolin Probiotics D/w GIRMA CRUZ MD Dec 08, 2018 08:09
[2018-12-08] MEDS: ceFAZolin SODIUM 1 GM in IV DEXTROSE 5% 50 ML IV SCH ×2 (08:16→21:10)
--- NOTE | 2018-12-08 08:49 | PDOC ---
SURGICAL PROGRESS NOTE Subjective tolerating diet pain managed Vital Signs Vital Signs Date Time Temp Pulse Resp B/P (MAP) Pulse Ox O2 Delivery O2 Flow Rate FiO2 12/08/18 07:20 98.1 75 20 148/90 (109) 100 Nasal Cannula 1.0 98.1 I&O Intake and Output 12/08/18 06:59 Intake Total 1900 ml Balance 1900 ml Intake Oral 1900 ml General: Alert, Oriented X3, Cooperative, No acute distress Abdomen: Soft, Other (dressing dry, cath in place) Labs Laboratory Tests Test 12/06/18 11:58 12/06/18 17:49 12/06/18 21:24 12/07/18 03:30 Glucose (Fingerstick) 218 mg/dL (70-99) 119 mg/dL (70-99) 303 mg/dL (70-99) White Blood Count 10.0 x10^3/uL (4.0-11.0) Red Blood Count 2.48 x10^6/uL (4.30-5.70) Hemoglobin 6.9 g/dL (13.0-17.5) Hematocrit 20.8 % (39.0-53.0) Mean Corpuscular Volume 84 fL (79-100) Mean Corpuscular Hemoglobin 28 pg (25-35) Mean Corpuscular Hemoglobin Concent 33 g/dL (31-37) Red Cell Distribution Width 17.5 % (11.5-14.5) Platelet Count 399 x10^3/uL (140-400) Neutrophils (%) (Auto) 72 % (31-73) Lymphocytes (%) (Auto) 12 % (24-48) Monocytes (%) (Auto) 10 % (0-9) Eosinophils (%) (Auto) 6 % (0-3) Basophils (%) (Auto) 1 % (0-3) Neutrophils # (Auto) 7.3 x10^3uL (1.8-7.7) Lymphocytes # (Auto) 1.2 x10^3/uL (1.0-4.8) Monocytes # (Auto) 1.0 x10^3/uL (0.0-1.1) Eosinophils # (Auto) 0.6 x10^3/uL (0.0-0.7) Basophils # (Auto) 0.1 x10^3/uL (0.0-0.2) Sodium Level 136 mmol/L (136-145) Potassium Level 4.7 mmol/L (3.5-5.1) Chloride Level 98 mmol/L (98-107) Carbon Dioxide Level 26 mmol/L (21-32) Anion Gap 12 (6-14) Blood Urea Nitrogen 34 mg/dL (8-26) Creatinine 12.5 mg/dL (0.7-1.3) Estimated GFR (Cockcroft-Gault) 5.5 BUN/Creatinine Ratio 3 (6-20) Glucose Level 276 mg/dL (70-99) Calcium Level 8.4 mg/dL (8.5-10.1) Total Bilirubin 0.2 mg/dL (0.2-1.0) Aspartate Amino Transf (AST/SGOT) 16 U/L (15-37) Alanine Aminotransferase (ALT/SGPT) 18 U/L (16-63) Alkaline Phosphatase 122 U/L (46-116) Total Protein 6.4 g/dL (6.4-8.2) Albumin 2.1 g/dL (3.4-5.0) Albumin/Globulin Ratio 0.5 (1.0-1.7) Test 12/07/18 08:13 12/07/18 12:45 12/07/18 17:36 12/07/18 20:30 Glucose (Fingerstick) 172 mg/dL (70-99) 183 mg/dL (70-99) 236 mg/dL (70-99) 236 mg/dL (70-99) Test 12/08/18 06:30 12/08/18 07:25 12/08/18 08:00 Hemoglobin 7.2 g/dL (13.0-17.5) Sodium Level 138 mmol/L (136-145) Potassium Level 4.7 mmol/L (3.5-5.1) Chloride Level 100 mmol/L (98-107) Carbon Dioxide Level 26 mmol/L (21-32) Anion Gap 12 (6-14) Blood Urea Nitrogen 46 mg/dL (8-26) Creatinine 14.7 mg/dL (0.7-1.3) Estimated GFR (Cockcroft-Gault) 4.6 Glucose Level 58 mg/dL (70-99) Calcium Level 8.7 mg/dL (8.5-10.1) Phosphorus Level 6.8 mg/dL (2.6-4.7) Magnesium Level 2.7 mg/dL (1.8-2.4) Albumin 2.1 g/dL (3.4-5.0) Glucose (Fingerstick) 37 mg/dL (70-99) 74 mg/dL (70-99) Laboratory Tests Test 12/07/18 12:45 12/07/18 17:36 12/07/18 20:30 12/08/18 06:30 Glucose (Fingerstick) 183 mg/dL (70-99) 236 mg/dL (70-99) 236 mg/dL (70-99) Hemoglobin 7.2 g/dL (13.0-17.5) Sodium Level 138 mmol/L (136-145) Potassium Level 4.7 mmol/L (3.5-5.1) Chloride Level 100 mmol/L (98-107) Carbon Dioxide Level 26 mmol/L (21-32) Anion Gap 12 (6-14) Blood Urea Nitrogen 46 mg/dL (8-26) Creatinine 14.7 mg/dL (0.7-1.3) Estimated GFR (Cockcroft-Gault) 4.6 Glucose Level 58 mg/dL (70-99) Calcium Level 8.7 mg/dL (8.5-10.1) Phosphorus Level 6.8 mg/dL (2.6-4.7) Magnesium Level 2.7 mg/dL (1.8-2.4) Albumin 2.1 g/dL (3.4-5.0) Test 12/08/18 07:25 12/08/18 08:00 Glucose (Fingerstick) 37 mg/dL (70-99) 74 mg/dL (70-99) Problem List Problems Medical Problems: (1) Abnormal EKG Status: Acute (2) Elevated troponin Status: Acute (3) End stage renal disease Status: Acute (4) Fever Status: Acute Assessment/Plan stable postop can FU in clinic HD until incisions healed MASON NEVAREZ APRN Dec 08, 2018 08:49
[2018-12-08] MEDS: FLUTICASONE 50MCG/NASAL SPRAY 16GM BOTTLE. NS SCH (09:00)
[2018-12-08] MEDS: DOCUSATE SODIUM 100 MG CAPSULE. PO SCH ×2 (09:00→21:08)
[2018-12-08] MEDS: CALCITRIOL 0.25 MCG CAPSULE. PO SCH (09:00)
[2018-12-08] MEDS: FOLIC/VIT B COMP W-C (RENAL) TABLET. PO SCH (09:00)
[2018-12-08] MEDS: POLYETHYLENE GLYCOL 3350 17 GM PACKET. PO SCH (09:00)
[2018-12-08] MEDS: CHOLECALCIFEROL (VITAMIN D3) 5,000 UNIT CAPSULE PO SCH (09:00)
[2018-12-08] MEDS: amLODIPine BESYLATE 10 MG TABLET PO SCH (09:00)
[2018-12-08] MEDS: SENNOSIDES 8.6 MG TABLET PO SCH ×2 (09:00→21:09)
[2018-12-08] MEDS: CINACALCET HCL 30 MG TABLET PO SCH (09:00)
[2018-12-08] MEDS: FUROSEMIDE 80 MG TABLET. PO SCH ×2 (09:00→17:45)
[2018-12-08] MEDS: cloNIDine HCL 0.2 MG TABLET PO SCH ×2 (09:00→21:08)
[2018-12-08 09:06] LABS: PROTHROMBIN TIME PATIENT 14.8 SEC (11.7-14.0)
--- NOTE | 2018-12-08 10:10 | NUR ---
Patients at bedside and checked patients blood sugar with home glucometer. Primary physician on unit at time and was made aware. Patient is currently still NPO for procedure. Gave patient 1/2 amp of Dextrose and received orders to give Dextrose 10% 500 cc fluid bolus.
--- NOTE | 2018-12-08 10:12 | PDOC ---
Subjective: Subjective: He was drowsy when I saw him - said abdomen was "fine," said he was eating okay (though had NPO sign on door), and said he had stooled but couldn't say when. Objective: Objective: Last stool charted on 12/01. Vital Signs: Vital Signs Date Time Temp Pulse Resp B/P (MAP) Pulse Ox O2 Delivery O2 Flow Rate FiO2 12/08/18 07:20 98.1 75 20 148/90 (109) 100 Nasal Cannula 1.0 98.1 Labs: Laboratory Tests Test 12/07/18 12:45 12/07/18 17:36 12/07/18 20:30 12/08/18 06:30 Glucose (Fingerstick) 183 mg/dL 236 mg/dL 236 mg/dL Hemoglobin 7.2 g/dL Prothrombin Time 14.8 SEC Prothromb Time International Ratio 1.2 Sodium Level 138 mmol/L Potassium Level 4.7 mmol/L Chloride Level 100 mmol/L Carbon Dioxide Level 26 mmol/L Anion Gap 12 Blood Urea Nitrogen 46 mg/dL Creatinine 14.7 mg/dL Estimated GFR (Cockcroft-Gault) 4.6 Glucose Level 58 mg/dL Calcium Level 8.7 mg/dL Phosphorus Level 6.8 mg/dL Magnesium Level 2.7 mg/dL Albumin 2.1 g/dL Test 12/08/18 07:25 12/08/18 08:00 Glucose (Fingerstick) 37 mg/dL 74 mg/dL PE: GEN: NAD LUNGS: CTAB HEART: RRR ABD: quiet, winces with placement of stethoscope NEURO/PSYCH: drowsy A/P: S/p open repositioning PD cath and ANDREWS, ileus MSSA sepsis Chronic anemia, ESRD H/o constipation -- Difficult history this morning. ?HD cath placement today Diet per surgery. Transfuse as needed. MORRIS LAMAR Dec 08, 2018 10:12
[2018-12-08] MEDS ORDERED: LIDOCAINE 1%/EPI 1:100,000 20 ML VIAL. ONE (10:32)
[2018-12-08] MEDS ORDERED: IV DEXTROSE 10% 500 ML IV ONE (10:45)
[2018-12-08] MEDS ORDERED: fentaNYL PF VIAL 100 MCG/2 ML VIAL ONE (10:48)
[2018-12-08] MEDS ORDERED: MIDAZOLAM HCL/PF 5 MG/5 ML VIAL. ONE (10:48)
[2018-12-08] MEDS ORDERED: fentaNYL PF VIAL 100 MCG/2 ML VIAL IV ONE (11:00)
[2018-12-08] MEDS ORDERED: MIDAZOLAM HCL/PF 5 MG/5 ML VIAL. IV ONE (11:00)
[2018-12-08] MEDS ORDERED: LIDOCAINE 1%/EPI 1:100,000 20 ML VIAL. IJ ONE (11:00)
--- NOTE | 2018-12-08 12:20 | PDOC ---
Renal-Progress Notes Subjective Notes Notes NONE History of Present Illness Hx of present illness STABLE Vitals Vitals Vital Signs Date Time Temp Pulse Resp B/P (MAP) Pulse Ox O2 Delivery O2 Flow Rate FiO2 12/08/18 11:55 97.2 79 16 166/95 (118) Nasal Cannula 2.0 97.2 12/08/18 11:34 100 Weight Weight [ ] I.O. Intake and Output Intake and Output 12/08/18 07:00 Intake Total 1900 ml Balance 1900 ml Intake Oral 1900 ml Labs Labs Laboratory Tests Test 12/07/18 12:45 12/07/18 17:36 12/07/18 20:30 12/08/18 06:30 Glucose (Fingerstick) 183 mg/dL (70-99) 236 mg/dL (70-99) 236 mg/dL (70-99) Hemoglobin 7.2 g/dL (13.0-17.5) Prothrombin Time 14.8 SEC (11.7-14.0) Prothromb Time International Ratio 1.2 (0.8-1.1) Sodium Level 138 mmol/L (136-145) Potassium Level 4.7 mmol/L (3.5-5.1) Chloride Level 100 mmol/L (98-107) Carbon Dioxide Level 26 mmol/L (21-32) Anion Gap 12 (6-14) Blood Urea Nitrogen 46 mg/dL (8-26) Creatinine 14.7 mg/dL (0.7-1.3) Estimated GFR (Cockcroft-Gault) 4.6 Glucose Level 58 mg/dL (70-99) Calcium Level 8.7 mg/dL (8.5-10.1) Phosphorus Level 6.8 mg/dL (2.6-4.7) Magnesium Level 2.7 mg/dL (1.8-2.4) Albumin 2.1 g/dL (3.4-5.0) Test 12/08/18 07:25 12/08/18 08:00 12/08/18 10:12 12/08/18 10:50 Glucose (Fingerstick) 37 mg/dL (70-99) 74 mg/dL (70-99) 43 mg/dL (70-99) 78 mg/dL (70-99) Test 12/08/18 11:59 Glucose (Fingerstick) 164 mg/dL (70-99) Micro Micro Microbiology 12/04/18 Blood Culture - Preliminary, Resulted NO GROWTH AFTER 4 DAYS 12/05/18 Aerobic Culture - Preliminary, Resulted 12/05/18 Aerobic Culture Result 1 (NOLAN) - Preliminary, Resulted 12/05/18 Gram Stain - Final, Resulted 12/05/18 Gram Stain Result 1 (NOLAN) - Final, Resulted 12/05/18 Gram Stain Result 2 (NOLAN) - Final, Resulted Review of Systems Constitutional: yes: alert, oriented Ears/Nose/Throat: Yes: no symptom reported Eyes: Yes: no symptom reported Pulmonary: Yes no symptom reported Cardiovascular: Yes no symptom reported Gastrointestional: Yes: no symptom reported Genitourinary: Yes: no symptom reported Musculoskeletal: Yes: no symptom reported Skin: Yes no symptom reported Psychiatric/Neurological: Yes: no symptom reported Endocrine: Yes: no symptom reported Physical Exam General Appearance: no apparent distress Heart: S1S2 Abdomen: soft Genitourinary: bladder flat Extremities: pulses present Neurology: alert, oriented Assessment Assessment IMP ESRD SEPSIS BACTEREMIA S/P REMOVAL OF TDC S/P PD CATHETER REPAIR AND REPOSITIONING 12-02 DM II HTN ACUTE DIASTOLIC CHF-BETTER PLAN NEW DIALYSIS CATHETER TODAY HD TODAY UF TO DW CONT ANTIBIOTICS WILL RESUME PD OP IN COUPLE WEEKS ONCE IT GOES WELL WILL REMOVE DIALYSIS CATHETER OP UPDATED AT BEDSIDE ARIANNE UMANA MD Dec 08, 2018 12:19
[2018-12-08] MEDS: LISINOPRIL 20 MG TABLET PO SCH ×2 (13:32→21:09)
[2018-12-08] MEDS: LACTOBACILLUS RHAMNOSUS GG 1 CAPSULE. PO SCH ×2 (13:32→21:08)
[2018-12-08] MEDS: oxyCODONE/APAP 5/325 1 TAB TABLET PO PRN (13:33)
[2018-12-08] MEDS ORDERED: IV NORMAL SALINE 1000ML BAG 1,000 ML IV PRN ×2 (13:45)
[2018-12-08] MEDS ORDERED: DIALYSIS PATIENT. MC PRN ×2 (13:45)
--- NOTE | 2018-12-08 15:47 | NUR ---
SS following up with discharge planning. SS received notification that pt would need to switch from Peritoneal Dialysis to Hemodialysis. SS phoned and faxed referral to [facility], ext [phone]; fax [phone], for HD chair time. SS awaiting serology labs and IR report for catheter placement in order for referral to be complete. SS will fax labs and IR report once received.
--- NOTE | 2018-12-08 15:53 | RAD ---
Procedure: Tunneled hemodialysis catheter placement under fluoroscopy. 12/08/2018 Clinical Indication: End-stage renal disease. Peritoneal dialysis catheter revision. Need for catheter-based dialysis in the interim. [id number] sedation time: 25 minutes. Sedation was provided under continuous cardiopulmonary monitoring via dedicated sedation nurse. fluoroscopy time:F 0.7 Minutes Dose area product:: 2.25 Gycm2 Sterility: All elements of maximal sterile barrier technique including the use of a cap, mask, sterile gown, sterile gloves, large sterile sheet, appropriate hand hygiene, and 2% chlorhexidine for cutaneous antisepsis (or acceptable alternative antiseptic per current guidelines) were followed for this procedure. Consent: The procedure was explained in its entirety to the patient or the patients designated telephone sales representative by a member of the treatment team, including a discussion of the risks, benefits and commonly accepted alternatives to the procedure, as well as the expected consequences of no therapy whatsoever. Discussion of the risks included, but was not limited to, those that are most frequent and those that are rare but possibly severe or life-threatening, as well as the possibility of unforeseen complications. Technique and Findings: Following informed consent, the patient was prepped and draped in the usual sterile fashion. Ultrasound interrogation of the right neck revealed patency and compressibility of the right internal jugular vein. A 21-gauge micropuncture needle was used to gain access to this vein after 1% Lidocaine was used to achieve local anesthesia. A hardcopy ultrasound image was recorded. The needle was exchanged over a wire for serial dilators followed by placement of a peel-away vascular access sheath. A 23 cm tip to cuff palindrome dialysis catheter was advanced from small dermatotomy several centimeters inferior to the right clavicle, to the sheath entry site. The catheter was delivered through the sheath such that its tip was in the mid right atrium with the patient in the supine position. Abnormal low lung volumes noted. The catheter was found to flush and aspirate normally. The catheter was flushed and secured to the skin. No immediate complications were identified. Impression: Ultrasound and fluoroscopically guided placement of right internal jugular tunneled hemodialysis catheter
--- NOTE | 2018-12-08 18:41 | PDOC ---
PROGRESS NOTES Chief Complaint Chief Complaint Sepsis POA. Procalcitonin 94.62. ? line infection -resolved Hypoglycemic event GPC bacteremia (3 of 4 bottles) POA 11/29 with MSSA present sensitivities noted Leukocytosis - better Transaminitis ? sepsis - increasing Fever - curve improving PCN allergy - nausea. Has tolerated Zosyn without problem Constipation Acute diastolic CHF CKD on HD (s/p HDC 11/26; small neck wound w/ stitch in place) Malfunctioning peritoneal catheter status post repositioning and hernia repair on 12/02/2018 Anemia. s/p iron and PRBCs 2 units evaluated by hematology and added Aranesp to his regimen Diabetes insulin requiring Plan: adjust insulin give d10 since patient is npo for his catheter insertion today. will follow results of repeat blood cultures continue broad spectrum antibiotics as per ID information security consultant. History of Present Illness History of Present Illness Patient with hypoglycemic events noted he had d50 given early but during my interview he checked his level again and it was 44 orders given to nursing staff.. Discussed plan of care,dialysis catheter insertion, no fever or chills reported. Vitals Vitals Vital Signs Date Time Temp Pulse Resp B/P (MAP) Pulse Ox O2 Delivery O2 Flow Rate FiO2 12/08/18 17:46 176/91 12/08/18 17:42 78 12 12/08/18 13:33 Room Air 12/08/18 11:55 97.2 2.0 97.2 12/08/18 11:34 100 Physical Exam Physical Exam GENERAL: Propped up in bed, resting quietly HEENT: Oral cavity,pharynx pink and moist. NECK: Supple. LUNGS: Clear to auscultation. HEART: S1 and S2. ABDOMEN: Mild distension. Dressed. PD in place -clean EXTREMITIES: No gross edema or cyanosis. SKIN: Warm without generalized rash. NEUROLOGIC: Arouses to name, responds appropriately Right-sided tunneled HD catheter out. no redness or drainage PIV ok General: Alert, Oriented X3, Cooperative, No acute distress Heart: Regular rate Lungs: Clear Abdomen: Soft, Other (dressing dry, cath in place) Extremities: No clubbing, No cyanosis Skin: No breakdown Labs LABS Laboratory Tests Test 12/07/18 20:30 12/08/18 06:30 12/08/18 07:25 12/08/18 08:00 Glucose (Fingerstick) 236 mg/dL (70-99) 37 mg/dL (70-99) 74 mg/dL (70-99) Hemoglobin 7.2 g/dL (13.0-17.5) Prothrombin Time 14.8 SEC (11.7-14.0) Prothromb Time International Ratio 1.2 (0.8-1.1) Sodium Level 138 mmol/L (136-145) Potassium Level 4.7 mmol/L (3.5-5.1) Chloride Level 100 mmol/L (98-107) Carbon Dioxide Level 26 mmol/L (21-32) Anion Gap 12 (6-14) Blood Urea Nitrogen 46 mg/dL (8-26) Creatinine 14.7 mg/dL (0.7-1.3) Estimated GFR (Cockcroft-Gault) 4.6 Glucose Level 58 mg/dL (70-99) Calcium Level 8.7 mg/dL (8.5-10.1) Phosphorus Level 6.8 mg/dL (2.6-4.7) Magnesium Level 2.7 mg/dL (1.8-2.4) Albumin 2.1 g/dL (3.4-5.0) Test 12/08/18 10:12 12/08/18 10:50 12/08/18 11:59 12/08/18 16:50 Glucose (Fingerstick) 43 mg/dL (70-99) 78 mg/dL (70-99) 164 mg/dL (70-99) Hepatitis B Surface Antigen Nonreactive (Nonreactive) Hepatitis B Surface Antibody Reactive Test 12/08/18 16:51 Glucose (Fingerstick) 183 mg/dL (70-99) Review of Systems Review of Systems pertinent as per hpi otherwise 10 point review is negative Assessment and Plan Assessmemt and Plan Problems Medical Problems: (1) Abnormal EKG Status: Acute (2) Elevated troponin Status: Acute (3) End stage renal disease Status: Acute (4) Fever Status: Acute Comment Review of Relevant I have reviewed the following items javy (where applicable) has been applied. Labs Laboratory Tests Test 12/06/18 21:24 12/07/18 03:30 12/07/18 08:13 12/07/18 12:45 Glucose (Fingerstick) 303 mg/dL (70-99) 172 mg/dL (70-99) 183 mg/dL (70-99) White Blood Count 10.0 x10^3/uL (4.0-11.0) Red Blood Count 2.48 x10^6/uL (4.30-5.70) Hemoglobin 6.9 g/dL (13.0-17.5) Hematocrit 20.8 % (39.0-53.0) Mean Corpuscular Volume 84 fL (79-100) Mean Corpuscular Hemoglobin 28 pg (25-35) Mean Corpuscular Hemoglobin Concent 33 g/dL (31-37) Red Cell Distribution Width 17.5 % (11.5-14.5) Platelet Count 399 x10^3/uL (140-400) Neutrophils (%) (Auto) 72 % (31-73) Lymphocytes (%) (Auto) 12 % (24-48) Monocytes (%) (Auto) 10 % (0-9) Eosinophils (%) (Auto) 6 % (0-3) Basophils (%) (Auto) 1 % (0-3) Neutrophils # (Auto) 7.3 x10^3uL (1.8-7.7) Lymphocytes # (Auto) 1.2 x10^3/uL (1.0-4.8) Monocytes # (Auto) 1.0 x10^3/uL (0.0-1.1) Eosinophils # (Auto) 0.6 x10^3/uL (0.0-0.7) Basophils # (Auto) 0.1 x10^3/uL (0.0-0.2) Sodium Level 136 mmol/L (136-145) Potassium Level 4.7 mmol/L (3.5-5.1) Chloride Level 98 mmol/L (98-107) Carbon Dioxide Level 26 mmol/L (21-32) Anion Gap 12 (6-14) Blood Urea Nitrogen 34 mg/dL (8-26) Creatinine 12.5 mg/dL (0.7-1.3) Estimated GFR (Cockcroft-Gault) 5.5 BUN/Creatinine Ratio 3 (6-20) Glucose Level 276 mg/dL (70-99) Calcium Level 8.4 mg/dL (8.5-10.1) Total Bilirubin 0.2 mg/dL (0.2-1.0) Aspartate Amino Transf (AST/SGOT) 16 U/L (15-37) Alanine Aminotransferase (ALT/SGPT) 18 U/L (16-63) Alkaline Phosphatase 122 U/L (46-116) Total Protein 6.4 g/dL (6.4-8.2) Albumin 2.1 g/dL (3.4-5.0) Albumin/Globulin Ratio 0.5 (1.0-1.7) Test 12/07/18 17:36 12/07/18 20:30 12/08/18 06:30 12/08/18 07:25 Glucose (Fingerstick) 236 mg/dL (70-99) 236 mg/dL (70-99) 37 mg/dL (70-99) Hemoglobin 7.2 g/dL (13.0-17.5) Prothrombin Time 14.8 SEC (11.7-14.0) Prothromb Time International Ratio 1.2 (0.8-1.1) Sodium Level 138 mmol/L (136-145) Potassium Level 4.7 mmol/L (3.5-5.1) Chloride Level 100 mmol/L (98-107) Carbon Dioxide Level 26 mmol/L (21-32) Anion Gap 12 (6-14) Blood Urea Nitrogen 46 mg/dL (8-26) Creatinine 14.7 mg/dL (0.7-1.3) Estimated GFR (Cockcroft-Gault) 4.6 Glucose Level 58 mg/dL (70-99) Calcium Level 8.7 mg/dL (8.5-10.1) Phosphorus Level 6.8 mg/dL (2.6-4.7) Magnesium Level 2.7 mg/dL (1.8-2.4) Albumin 2.1 g/dL (3.4-5.0) Test 12/08/18 08:00 12/08/18 10:12 12/08/18 10:50 12/08/18 11:59 Glucose (Fingerstick) 74 mg/dL (70-99) 43 mg/dL (70-99) 78 mg/dL (70-99) 164 mg/dL (70-99) Test 12/08/18 16:50 12/08/18 16:51 Hepatitis B Surface Antigen Nonreactive (Nonreactive) Hepatitis B Surface Antibody Reactive Glucose (Fingerstick) 183 mg/dL (70-99) Laboratory Tests Test 12/07/18 20:30 12/08/18 06:30 12/08/18 07:25 12/08/18 08:00 Glucose (Fingerstick) 236 mg/dL (70-99) 37 mg/dL (70-99) 74 mg/dL (70-99) Hemoglobin 7.2 g/dL (13.0-17.5) Prothrombin Time 14.8 SEC (11.7-14.0) Prothromb Time International Ratio 1.2 (0.8-1.1) Sodium Level 138 mmol/L (136-145) Potassium Level 4.7 mmol/L (3.5-5.1) Chloride Level 100 mmol/L (98-107) Carbon Dioxide Level 26 mmol/L (21-32) Anion Gap 12 (6-14) Blood Urea Nitrogen 46 mg/dL (8-26) Creatinine 14.7 mg/dL (0.7-1.3) Estimated GFR (Cockcroft-Gault) 4.6 Glucose Level 58 mg/dL (70-99) Calcium Level 8.7 mg/dL (8.5-10.1) Phosphorus Level 6.8 mg/dL (2.6-4.7) Magnesium Level 2.7 mg/dL (1.8-2.4) Albumin 2.1 g/dL (3.4-5.0) Test 12/08/18 10:12 12/08/18 10:50 12/08/18 11:59 12/08/18 16:50 Glucose (Fingerstick) 43 mg/dL (70-99) 78 mg/dL (70-99) 164 mg/dL (70-99) Hepatitis B Surface Antigen Nonreactive (Nonreactive) Hepatitis B Surface Antibody Reactive Test 12/08/18 16:51 Glucose (Fingerstick) 183 mg/dL (70-99) Microbiology 12/04/18 Blood Culture - Preliminary, Resulted NO GROWTH AFTER 4 DAYS 12/05/18 Aerobic Culture - Final, Complete 12/05/18 Aerobic Culture Result 1 (NOLAN) - Final, Complete 12/05/18 Gram Stain - Final, Complete 12/05/18 Gram Stain Result 1 (NOLAN) - Final, Complete 12/05/18 Gram Stain Result 2 (NOLAN) - Final, Complete Medications Current Medications Vancomycin HCl (Vanco Per Pharmacy) 1 each 1X ONCE MC ; Start 11/29/18 at 18:15 ; Stop 11/29/18 at 18:16; Status Cancel Piperacillin Sod/ Tazobactam Sod 3.375 gm/Sodium Chloride 50 ml @ 100 mls/hr 1X ONCE IV Last administered on 11/29/18at 18:45; Start 11/29/18 at 18:15; Stop 11/29/18 at 18:44; Status DC Ondansetron HCl (Zofran) 4 mg 1X ONCE IV Last administered on 11/29/18at 18:43 ; Start 11/29/18 at 18:15; Stop 11/29/18 at 18:23; Status DC Vancomycin HCl 2 gm/Sodium Chloride 500 ml @ 250 mls/hr 1X ONCE IV Last administered on 11/29/18at 18:46; Start 11/29/18 at 19:00; Stop 11/29/18 at 20:59 ; Status DC Iron Sucrose 200 mg/Sodium Chloride 110 ml @ 55 mls/hr 1X ONCE IV Last administered on 11/29/18at 22:20; Start 11/29/18 at 19:15; Stop 11/29/18 at 21:14 ; Status DC Ondansetron HCl (Zofran) 4 mg PRN Q8HRS PRN IV NAUSEA/VOMITING; Start 11/29/18 at 19:30; Stop 11/29/18 at 19:36; Status DC Fentanyl Citrate (Fentanyl 2ml Vial) 50 mcg PRN Q1HR PRN IV PAIN Last administered on 11/30/18at 16:23; Start 11/29/18 at 19:30; Stop 11/30/18 at 19:29 ; Status DC Acetaminophen (Tylenol) 650 mg PRN Q4HRS PRN PO FEVER Last administered on 11/30at 17:35; Start 11/29/18 at 19:30; Stop 11/30/18 at 19:29; Status DC Ondansetron HCl (Zofran) 4 mg PRN Q6HRS PRN IV NAUSEA/VOMITING Last administered on 12/04/18at 17:52; Start 11/29/18 at 19:45 Amlodipine Besylate (Norvasc) 10 mg DAILY PO Last administered on 12/07/18at 08: 42; Start 11/30/18 at 09:00 Clonidine HCl (Catapres) 0.2 mg BID PO Last administered on 12/07/18 21:32; Start 11/29/18 at 21:00 Docusate Sodium (Colace) 100 mg BID PO Last administered on 12/07/18 21:31; Start 11/29/18 at 21:00 Furosemide (Lasix) 80 mg BID92 PO Last administered on 12/08/18 17:45; Start 11/29/18 at 20:00 Insulin Glargine (Lantus) 32 units HS SQ Last administered on 12/07/18 21:46; Start 11/29/18 at 21:00; Stop 12/08/18 at 10:16; Status DC Lisinopril (Prinivil) 40 mg BID PO Last administered on 12/08/18 13:32; Start 11/29/18 at 21:00 Sevelamer Carbonate (Renvela) 4,000 mg TIDWMEALS PO Last administered on 17:47; Start 11/30/18 at 08:00 Calcitriol (Rocaltrol) 0.25 mcg DAILY PO Last administered on 12/07/18 08:43; Start 11/30/18 at 09:00 Carvedilol (Coreg) 12.5 mg BIDWMEALS PO Last administered on 12/08/18 17:46; Start 11/30/18 at 08:00 Vitamin D (Vitamin D3) 5,000 unit DAILY PO Last administered on 12/07/18 08:40 ; Start 11/30/18 at 09:00 Cinacalcet (Sensipar) 60 mg DAILY PO Last administered on 12/07/18 08:43; Start 11/30/18 at 09:00 Polyethylene Glycol (miraLAX PACKET) 17 gm DAILY PO Last administered on 08:40; Start 11/30/18 at 09:00 Sennosides (Senna) 8.6 mg BID PO Last administered on 12/07/18 21:31; Start at 21:00 Simvastatin (Zocor) 20 mg HS PO Last administered on 12/07/18 21:32; Start at 21:00 Vitamin B Complex/ Vitamin C (Johanna-Celia) 1 tab DAILY PO Last administered on at 08:43; Start 11/30/18 at 09:00 Insulin Human Lispro (HumaLOG) 0-9 UNITS TIDWMEALS SQ Last administered on 11/29at 22:44; Start 11/30/18 at 08:00; Stop 11/30/18 at 10:28; Status DC Dextrose (Dextrose 50%-Water Syringe) 12.5 gm PRN Q15MIN PRN IV SEE COMMENTS Last administered on 12/08/18at 10:07; Start 11/29/18 at 19:45 Aspirin (Anshul Aspirin) 325 mg 1X ONCE PO Last administered on 11/29/18at 20:19 ; Start 11/29/18 at 19:45; Stop 11/29/18 at 19:46; Status DC Labetalol HCl (Normodyne Iv Push) 10 mg PRN Q2HR PRN IVP HYPERTENSION, SEE COMMENTS Last administered on 12/03/18at 04:25; Start 11/30/18 at 04:00 Sodium Chloride 1,000 ml @ 100 mls/hr 1X ONCE IV Last administered on at 04:17; Start 11/30/18 at 04:30; Stop 11/30/18 at 05:57; Status DC Darbepoetin David (Aranesp) 100 mcg 1X ONCE SQ Last administered on 11/30/18at 06:06; Start 11/30/18 at 07:00; Stop 11/30/18 at 07:01; Status DC Sodium Chloride 1,000 ml @ 1,000 mls/hr Q1H PRN IV hypotension; Start 11/30/18 at 07:34; Stop 11/30/18 at 13:39; Status DC Albumin Human 200 ml @ 200 mls/hr 1X PRN PRN IV Hypotension; Start 11/30/18 at 07:45; Stop 11/30/18 at 13:44; Status DC Diphenhydramine HCl (Benadryl) 25 mg 1X PRN PRN IV ITCHING; Start 11/30/18 at 07:45; Stop 12/01/18 at 07:44; Status DC Sodium Chloride 1,000 ml @ 400 mls/hr Q2H30M PRN IV PATENCY; Start 11/30/18 at 07:34; Stop 11/30/18 at 19:33; Status DC Info (PHARMACY MONITORING -- do not chart) 1 each PRN DAILY PRN MC SEE COMMENTS ; Start 11/30/18 at 07:45; Stop 12/03/18 at 15:49; Status DC Info (PHARMACY MONITORING -- do not chart) 1 each PRN DAILY PRN MC SEE COMMENTS ; Start 11/30/18 at 07:45; Status UNV Darbepoetin David (Aranesp) 60 mcg WEEKLYHS SQ ; Start 11/30/18 at 21:00; Stop at 21:00; Status DC Darbepoetin David (Aranesp) 60 mcg WEEKLYHS SQ Last administered on 12/07/18at 21 :31; Start 12/07/18 at 21:00 Insulin Human Lispro (HumaLOG) 0-9 UNITS TIDWMEALS SQ Last administered on 12/08at 18:02; Start 11/30/18 at 12:00 Dextrose (Dextrose 50%-Water Syringe) 12.5 gm PRN Q15MIN PRN IV SEE COMMENTS; Start 11/30/18 at 10:30; Status UNV Vancomycin HCl (Vanco Per Pharmacy) 1 each PRN DAILY PRN MC SEE COMMENTS Last administered on 12/03/18at 15:53; Start 11/30/18 at 12:15; Stop 12/04/18 at 08:03 ; Status DC Piperacillin Sod/ Tazobactam Sod (Zosyn Per Pharmacy) 1 each PRN DAILY PRN MC SEE COMMENTS; Start 11/30/18 at 12:15; Stop 12/05/18 at 10:11; Status DC Piperacillin Sod/ Tazobactam Sod 2.25 gm/Sodium Chloride 50 ml @ 100 mls/hr Q8HRS IV Last administered on 12/05/18at 06:00; Start 11/30/18 at 13:00; Stop at 10:11; Status DC Calcium Carbonate/ Glycine (Tums) 500 mg PRN BID PRN PO INDIGESTION; Start at 13:30 Albuterol Sulfate (Ventolin Neb Soln) 2.5 mg PRN Q6HRS PRN NEB SHORTNESS OF BREATH; Start 11/30/18 at 13:45 Non-Formulary Medication (Epoetin David (Procrit)) 10,000 unit WEEKLY IJ ; Start 12/07/18 at 09:00; Stop 12/07/18 at 09:00; Status DC Fluticasone Propionate (Flonase) 2 spray DAILY NS Last administered on at 08:39; Start 11/30/18 at 14:00 Pantoprazole Sodium (Protonix) 40 mg DAILYAC PO Last administered on 12/07/18at 08:41; Start 11/30/18 at 14:00 Vancomycin HCl (Vancomycin Random Level) 1 each 1X ONCE MC Last administered on 11/30/18at 16:00; Start 11/30/18 at 16:00; Stop 11/30/18 at 16:01; Status DC Sodium Cl/Sod Bicarb/Potass Cl/ PEG (Golytely) 4,000 ml 1X ONCE PO Last administered on 11/30/18at 17:33; Start 11/30/18 at 18:00; Stop 11/30/18 at 18:01 ; Status DC Polyethylene Glycol (miraLAX PACKET) 17 gm PRN DAILY PRN PO CONSTIPATION; Start 11/30/18 at 17:00 Acetaminophen (Tylenol) 650 mg PRN Q4HRS PRN PO FEVER Last administered on 12/05at 18:06; Start 11/30/18 at 20:15 Vancomycin HCl 500 mg/Sodium Chloride 100 ml @ 100 mls/hr QMWF IV Last administered on 12/03/18at 16:53; Start 12/01/18 at 16:00; Stop 12/04/18 at 08:03 ; Status DC Sodium Chloride 1,000 ml @ 1,000 mls/hr Q1H PRN IV hypotension; Start 12/01/18 at 07:00; Stop 12/01/18 at 18:00; Status DC Sodium Chloride 1,000 ml @ 400 mls/hr Q2H30M PRN IV PATENCY; Start 12/01/18 at 07:00; Stop 12/01/18 at 18:59; Status DC Info (PHARMACY MONITORING -- do not chart) 1 each PRN DAILY PRN MC SEE COMMENTS ; Start 12/01/18 at 10:30; Status UNV Info (PHARMACY MONITORING -- do not chart) 1 each PRN DAILY PRN MC SEE COMMENTS ; Start 12/01/18 at 10:30; Status UNV Heparin Sodium (Porcine) 5000 unit/Sodium Chloride 505 ml @ 505 mls/hr 1X ONCE IRR Last administered on 12/02/18at 11:05; Start 12/02/18 at 07:00; Stop at 07:59; Status DC Bupivacaine HCl/ Epinephrine Bitart (Sensorcain-Mpf Epi 0.5%-[id number]) 30 ml STK -MED ONCE .ROUTE Last administered on 12/02/18at 11:05; Start 12/02/18 at 07:36 ; Stop 12/02/18 at 07:37; Status DC Fentanyl Citrate (Fentanyl 2ml Vial) 100 mcg STK-MED ONCE .ROUTE ; Start at 09:05; Stop 12/02/18 at 09:06; Status DC Rocuronium [place] (Zemuron) 50 mg STK-MED ONCE .ROUTE ; Start 12/02/18 at 09:05 ; Stop 12/02/18 at 09:06; Status DC Lidocaine HCl (Lidocaine Pf 2% Vial) 5 ml STK-MED ONCE .ROUTE ; Start 12/02/18 at 09:05; Stop 12/02/18 at 09:06; Status DC Propofol 20 ml @ As Directed STK-MED ONCE IV ; Start 12/02/18 at 09:06; Stop at 09:07; Status DC Dexamethasone Sodium Phosphate (Decadron) 20 mg STK-MED ONCE .ROUTE ; Start at 09:06; Stop 12/02/18 at 09:07; Status DC Ondansetron HCl (Zofran) 4 mg STK-MED ONCE .ROUTE ; Start 12/02/18 at 09:06; Stop 12/02/18 at 09:07; Status DC Insulin Human Lispro (HumaLOG) 10 units 1X ONCE SQ ; Start 12/02/18 at 09:45; Stop 12/02/18 at 09:46; Status DC Levofloxacin/ Dextrose 100 ml @ As Directed STK-MED ONCE IV ; Start 12/02/18 at 10:46; Stop 12/02/18 at 10:47; Status DC Metoclopramide HCl (Reglan Vial) 10 mg STK-MED ONCE .ROUTE ; Start 12/02/18 at 10:59; Stop 12/02/18 at 11:00; Status DC Neostigmine Methylsulfate (Bloxiverz) 10 mg STK-MED ONCE .ROUTE ; Start at 12:25; Stop 12/02/18 at 12:26; Status DC Glycopyrrolate (Robinul) 1 mg STK-MED ONCE .ROUTE ; Start 12/02/18 at 12:25; Stop 12/02/18 at 12:26; Status DC Sevoflurane (Ultane) 90 ml STK-MED ONCE IH ; Start 12/02/18 at 12:27; Stop 12/02 at 12:28; Status DC Ondansetron HCl (Zofran) 4 mg PRN Q6HRS PRN IV NAUSEA/VOMITING; Start 12/02/18 at 13:00; Stop 12/03/18 at 12:59; Status DC Fentanyl Citrate (Fentanyl 2ml Vial) 25 mcg PRN Q5MIN PRN IV MILD PAIN; Start 12/02/18 at 13:00; Stop 12/02/18 at 20:24; Status DC Fentanyl Citrate (Fentanyl 2ml Vial) 50 mcg PRN Q5MIN PRN IV MODERATE TO SEVERE PAIN Last administered on 12/02/18at 13:46; Start 12/02/18 at 13:00; Stop 12/02/18 at 20:24; Status DC Morphine Sulfate (Morphine Sulfate) 1 mg PRN Q10MIN PRN IV SEVERE PAIN; Start 12/02/18 at 13:00; Stop 12/02/18 at 20:24; Status DC Ringer's Solution 1,000 ml @ 30 mls/hr Q24H IV ; Start 12/02/18 at 12:51; Stop 12/03/18 at 00:50; Status DC Lidocaine HCl (Xylocaine-Mpf 1% 2ml Vial) 2 ml 1X PRN PRN ID IV START; Start at 13:00; Stop 12/03/18 at 12:59; Status DC Hydromorphone HCl (Dilaudid) 0.5 mg PRN Q10MIN PRN IV SEV PAIN, Second choice Last administered on 12/02/18at 16:52; Start 12/02/18 at 13:00; Stop 12/03/18 at 12:59; Status DC Prochlorperazine Edisylate (Compazine) 5 mg PACU PRN PRN IV NAUSEA, MRX1; Start 12/02/18 at 13:00; Stop 12/03/18 at 12:59; Status DC Sodium Chloride 1,000 ml @ 100 mls/hr Q10H IV Last administered on 12/02/18at 13:04; Start 12/02/18 at 10:45; Stop 12/03/18 at 10:14; Status DC Hydromorphone HCl (Dilaudid) 1 mg PRN Q4HRS PRN IV pain Last administered on at 18:31; Start 12/02/18 at 13:15; Stop 12/02/18 at 20:24; Status DC Oxycodone/ Acetaminophen (Percocet 5/325) 1 tab PRN Q4HRS PRN PO PAIN Last administered on 12/08/18at 13:33; Start 12/02/18 at 13:15 Levofloxacin/ Dextrose 100 ml @ 100 mls/hr 1X ONCE IV ; Start 12/02/18 at 10: 45; Stop 12/02/18 at 13:23; Status DC Lactobacillus Rhamnosus (Culturelle) 1 cap BID PO Last administered on at 13:32; Start 12/02/18 at 21:00 Hydromorphone HCl (Dilaudid) 1 mg PRN Q3HRS PRN IV SEVERE PAIN Last administered on 12/03/18at 21:16; Start 12/02/18 at 20:30 Levofloxacin/ Dextrose (LEVAQUIN 500mg PREMIX) 500 mg STK-MED ONCE IV ; Start at 11:00; Stop 12/03/18 at 08:41; Status DC Sodium Chloride 1,000 ml @ 1,000 mls/hr Q1H PRN IV hypotension; Start 12/03/18 at 07:00; Stop 12/03/18 at 12:59; Status DC Sodium Chloride 1,000 ml @ 400 mls/hr Q2H30M PRN IV PATENCY; Start 12/03/18 at 07:00; Stop 12/03/18 at 18:59; Status DC Info (PHARMACY MONITORING -- do not chart) 1 each PRN DAILY PRN MC SEE COMMENTS ; Start 12/03/18 at 08:45; Status UNV Info (PHARMACY MONITORING -- do not chart) 1 each PRN DAILY PRN MC SEE COMMENTS ; Start 12/03/18 at 08:45 Sodium Chloride 1,000 ml @ 1,000 mls/hr Q1H PRN IV hypotension; Start 12/05/18 at 07:00; Stop 12/05/18 at 12:59; Status DC Sodium Chloride 1,000 ml @ 400 mls/hr Q2H30M PRN IV PATENCY; Start 12/05/18 at 07:00; Stop 12/05/18 at 18:59; Status DC Info (PHARMACY MONITORING -- do not chart) 1 each PRN DAILY PRN MC SEE COMMENTS ; Start 12/05/18 at 08:15; Status UNV Info (PHARMACY MONITORING -- do not chart) 1 each PRN DAILY PRN MC SEE COMMENTS ; Start 12/05/18 at 08:15; Status UNV Cefazolin Sodium 1 gm/Dextrose 50 ml @ 100 mls/hr Q12HR IV Last administered on 12/08/18at 08:16; Start 12/05/18 at 12:00 Magnesium Sulfate 50 ml @ 25 mls/hr PRN DAILY PRN IV for Mag < 1.7 on am labs; Start 12/07/18 at 10:00 Insulin Glargine (Lantus) 26 units HS SQ ; Start 12/08/18 at 21:00 Lidocaine/ Epinephrine (LIDOCAINE 1%-EPI 1:100,000 Multi-Dose) 20 ml STK-MED ONCE .ROUTE ; Start 12/08/18 at 10:32; Stop 12/08/18 at 10:33; Status DC Dextrose 500 ml @ 0 mls/hr 1X ONCE IV Last administered on 12/08/18at 10:45; Start 12/08/18 at 10:45; Stop 12/08/18 at 10:46; Status DC Midazolam HCl (Versed) 5 mg STK-MED ONCE .ROUTE ; Start 12/08/18 at 10:48; Stop 12/08/18 at 10:49; Status DC Fentanyl Citrate (Fentanyl 2ml Vial) 100 mcg STK-MED ONCE .ROUTE ; Start at 10:48; Stop 12/08/18 at 10:49; Status DC Midazolam HCl (Versed) 5 mg 1X ONCE IV Last administered on 12/08/18at 11:34; Start 12/08/18 at 11:00; Stop 12/08/18 at 11:01; Status DC Fentanyl Citrate (Fentanyl 2ml Vial) 100 mcg 1X ONCE IV Last administered on at 11:34; Start 12/08/18 at 11:00; Stop 12/08/18 at 11:01; Status DC Lidocaine/ Epinephrine (LIDOCAINE 1%-EPI 1:100,000 Multi-Dose) 20 ml 1X ONCE IJ Last administered on 12/08/18at 11:34; Start 12/08/18 at 11:00; Stop at 11:01; Status DC Sodium Chloride 1,000 ml @ 1,000 mls/hr Q1H PRN IV hypotension; Start 12/08/18 at 13:45; Stop 12/08/18 at 19:44 Sodium Chloride 1,000 ml @ 400 mls/hr Q2H30M PRN IV PATENCY; Start 12/08/18 at 13:45; Stop 12/09/18 at 01:44 Info (PHARMACY MONITORING -- do not chart) 1 each PRN DAILY PRN MC SEE COMMENTS ; Start 12/08/18 at 13:45; Status UNV Info (PHARMACY MONITORING -- do not chart) 1 each PRN DAILY PRN MC SEE COMMENTS ; Start 12/08/18 at 13:45 Active Scripts Active Reported Protonix (Pantoprazole Sodium) 20 Mg Tablet.dr 2 Tab PO DAILY Flonase Allergy Relief (Fluticasone Propionate) 9.9 Ml [place].susp 2 Sprays NS DAILY Procrit (Epoetin David) 10,000 Unit/1 Ml Vial 10,000 Unit IJ WEEKLY Tums (Calcium Carbonate) 200 Mg Tab.chew 200 Mg PO BID PRN Proair Respiclick (Albuterol Sulfate) 90 Mcg Aer.pow.ba 1-2 Puff IH PRN Q6HRS PRN Senna (Sennosides) 8.6 Mg Tablet 8.6 Mg PO BID Miralax (Polyethylene Glycol 3350) 17 Gm Powd.pack 1 Packet PO DAILY Colace (Docusate Sodium) 100 Mg Capsule 1 Cap PO BID Carvedilol 25 Mg Tablet 25 Mg PO BIDWMEALS Renvela (Sevelamer Carbonate) 800 Mg Tablet 5 Tab PO TIDWMEALS Furosemide 80 Mg Tablet 1 Tab PO BID Vitamin D (Cholecalciferol (Vitamin D3)) 5,000 Unit Tablet 5,000 Unit PO DAILY Calcitriol 0.25 Mcg Capsule 2 Cap PO DAILY Clonidine Hcl 0.2 Mg Tablet 1 Tab PO BID Johanna-Celia Rx Tablet (Vit B Cmplx 3/Fa/Vit C/Biotin) 1 Each Tablet 1 Each PO DAILY Sensipar (Cinacalcet Hcl) 60 Mg Tablet 60 Mg PO DAILY Amlodipine Besylate 10 Mg Tablet 10 Mg PO DAILY Simvastatin 20 Mg Tablet 20 Mg PO HS Lisinopril 40 Mg Tablet 1 Tab PO BID Novolog (Insulin Aspart) 100 Unit/1 Ml Vial 100 Unit SQ sliding scale Lantus Solostar (Insulin Glargine,Hum.rec.anlog) 100 Unit/1 Ml Insuln.pen 15 Unit SQ HS Vitals/I & O Vital Sign - Last 24 Hours 12/07/18 12/07/18 12/07/18 12/07/18 18:55 19:45 21:32 21:32 Temp 97.3 97.3 Pulse 76 76 76 Resp 18 B/P (MAP) 134/81 (98) 134/81 134/81 Pulse Ox 96 O2 Delivery Room Air Room Air 12/07/18 12/08/18 12/08/18 12/08/18 22:35 02:38 07:20 08:00 Temp 97.4 98.3 98.1 97.4 98.3 98.1 Pulse 75 69 75 Resp 18 16 20 B/P (MAP) 152/89 (110) 155/91 (112) 148/90 (109) Pulse Ox 97 99 100 O2 Delivery Room Air Room Air Nasal Cannula Room Air O2 Flow Rate 1.0 12/08/18 12/08/18 12/08/18 12/08/18 11:28 11:34 11:55 12:04 Temp 97.2 97.2 Pulse 78 79 Resp 21 21 16 B/P (MAP) 166/95 (118) Pulse Ox 100 100 O2 Delivery Nasal Cannula Nasal Cannula Nasal Cannula Room Air O2 Flow Rate 2.0 2.0 2.0 12/08/18 12/08/18 12/08/18 12/08/18 13:32 13:33 17:42 17:46 Pulse 78 Resp 12 B/P (MAP) 173/95 176/91 (119) 176/91 O2 Delivery Room Air Intake and Output 12/07/18 12/07/18 12/08/18 14:59 22:59 06:59 Intake Total 1500 ml 400 ml Balance 1500 ml 400 ml ACOSTA OSPINA MD Dec 08, 2018 18:41
[2018-12-08] MEDS: SIMVASTATIN 20 MG TABLET PO SCH (21:10)
[2018-12-08] MEDS: INSULIN GLARGINE 300 UNITS/3 ML INSULN.PEN. SQ SCH (21:22)
[2018-12-09 03:00] VITALS: BP 147/91
[2018-12-09 04:32] LABS: ALBUMIN 2.1 g/dL (3.4-5.0); CREATININE 10.1 mg/dL (0.7-1.3); GFR 7.1; MAGNESIUM 2.4 mg/dL (1.8-2.4); PHOSPHORUS 5.4 mg/dL (2.6-4.7); POTASSIUM 4.9 mmol/L (3.5-5.1)
[2018-12-09] MEDS: PANTOPRAZOLE 40 MG TABLET.DR. PO SCH (05:51)
[2018-12-09 07:00] VITALS: BP 152/94
[2018-12-09] MEDS: INSULIN LISPRO 300 UNITS/3 ML INSULN.PEN. SQ SCH ×3 (08:00→18:07)
--- NOTE | 2018-12-09 08:16 | PDOC ---
SUBJECTIVE Subjective S: doing better, w/ his dad in room this am O: Physical exam: Gen.: Well-nourished and well-developed, resting in bed Lungs: Breathing comfortably with no evidence of respiratory distress Labs: Hb 7.5, SPEP neg for M spike testos 156 Assessment and Plan: He is a 38-year-old man with anemia, admission for infection with bacteremia, on antibiotics, status post 2 unit transfusion 12/01 on Aranesp and has received some IV Iron while here. Kidney failure: Dialysis per nephro Peritoneal dialysis catheter: s/p revision Anemia: improvement post 2 unit transfusion, on Aranesp weekly and has had IV iron sucrose 1, he did have an iron sat of 12% and ferritin of 574 on 15 October 2018 [facility] labs, IV iron can be continued per nephro as needed, for now he' ll continue the Aranesp, does not want oral iron due to constipation, SPEP negative hypogonadism: low testos, defer to primary to tx prn bacteremia: On antibiotics, ID is involved Diabetes: Per primary Dispo: per others, f/u w/ nephro and primary upon d/c and us prn Thank you kindly, and please do not hesitate to call with further questions. OBJECTIVE Vital Signs Vital Signs Date Time Temp Pulse Resp B/P (MAP) Pulse Ox O2 Delivery O2 Flow Rate FiO2 12/09/18 07:00 98.2 82 18 152/94 (113) 97 Room Air 98.2 12/09/18 03:00 98.2 78 18 147/91 (109) 99 Room Air 98.2 12/08/18 23:00 98.2 100 18 152/93 (112) 100 Room Air 98.2 12/08/18 21:09 77 175/96 12/08/18 21:08 77 175/96 12/08/18 19:54 98.3 77 16 175/96 (122) 99 Room Air 98.3 12/08/18 19:50 Room Air 12/08/18 17:46 176/91 12/08/18 17:42 78 12 176/91 (119) 12/08/18 13:33 Room Air 12/08/18 13:32 173/95 12/08/18 12:04 Room Air 12/08/18 11:55 97.2 79 16 166/95 (118) Nasal Cannula 2.0 97.2 12/08/18 11:34 21 100 Nasal Cannula 2.0 12/08/18 11:28 78 21 100 Nasal Cannula 2.0 I & O Intake and Output 12/09/18 07:00 Intake Total 1810 ml Balance 1810 ml Intake Oral 1810 ml # Bowel Movements 2 COMMENT Lab Laboratory Tests Test 12/08/18 10:12 12/08/18 10:50 12/08/18 11:59 12/08/18 16:50 Glucose (Fingerstick) 43 mg/dL (70-99) 78 mg/dL (70-99) 164 mg/dL (70-99) Hepatitis B Surface Antigen Nonreactive (Nonreactive) Hepatitis B Surface Antibody Reactive Hepatitis B Core Total Antibody Negative (Negative) Test 12/08/18 16:51 12/08/18 20:52 12/09/18 03:00 12/09/18 03:42 Glucose (Fingerstick) 183 mg/dL (70-99) 265 mg/dL (70-99) 183 mg/dL (70-99) Sodium Level 137 mmol/L (136-145) Potassium Level 4.9 mmol/L (3.5-5.1) Chloride Level 99 mmol/L (98-107) Carbon Dioxide Level 29 mmol/L (21-32) Anion Gap 9 (6-14) Blood Urea Nitrogen 31 mg/dL (8-26) Creatinine 10.1 mg/dL (0.7-1.3) Estimated GFR (Cockcroft-Gault) 7.1 Glucose Level 211 mg/dL (70-99) Calcium Level 9.0 mg/dL (8.5-10.1) Phosphorus Level 5.4 mg/dL (2.6-4.7) Magnesium Level 2.4 mg/dL (1.8-2.4) Albumin 2.1 g/dL (3.4-5.0) Test 12/09/18 07:26 Glucose (Fingerstick) 94 mg/dL (70-99) CAROL BLAND MD Dec 09, 2018 08:16
--- NOTE | 2018-12-09 08:25 | PDOC ---
Infectious Disease Note Subjective Subjective sleepy but says is feeling good ROS ROS no n/v/d/sob Vital Sign Vital Signs Vital Signs Date Time Temp Pulse Resp B/P (MAP) Pulse Ox O2 Delivery O2 Flow Rate FiO2 12/09/18 07:00 98.2 82 18 152/94 (113) 97 Room Air 98.2 12/08/18 11:55 2.0 Physical Exam PHYSICAL EXAM GENERAL: Propped up in bed, resting quietly HEENT: Oral cavity,pharynx pink and moist. NECK: Supple. LUNGS: Clear to auscultation. HEART: S1 and S2. ABDOMEN: Mild distension. Dressed. PD in place -clean EXTREMITIES: No gross edema or cyanosis. SKIN: Warm without generalized rash. NEUROLOGIC: Arouses to name, responds appropriately Right-sided tunneled HD catheter out. no redness or drainage PIV ok Labs Lab Laboratory Tests Test 12/08/18 10:12 12/08/18 10:50 12/08/18 11:59 12/08/18 16:50 Glucose (Fingerstick) 43 mg/dL (70-99) 78 mg/dL (70-99) 164 mg/dL (70-99) Hepatitis B Surface Antigen Nonreactive (Nonreactive) Hepatitis B Surface Antibody Reactive Hepatitis B Core Total Antibody Negative (Negative) Test 12/08/18 16:51 12/08/18 20:52 12/09/18 03:00 12/09/18 03:42 Glucose (Fingerstick) 183 mg/dL (70-99) 265 mg/dL (70-99) 183 mg/dL (70-99) Sodium Level 137 mmol/L (136-145) Potassium Level 4.9 mmol/L (3.5-5.1) Chloride Level 99 mmol/L (98-107) Carbon Dioxide Level 29 mmol/L (21-32) Anion Gap 9 (6-14) Blood Urea Nitrogen 31 mg/dL (8-26) Creatinine 10.1 mg/dL (0.7-1.3) Estimated GFR (Cockcroft-Gault) 7.1 Glucose Level 211 mg/dL (70-99) Calcium Level 9.0 mg/dL (8.5-10.1) Phosphorus Level 5.4 mg/dL (2.6-4.7) Magnesium Level 2.4 mg/dL (1.8-2.4) Albumin 2.1 g/dL (3.4-5.0) Test 12/09/18 07:26 Glucose (Fingerstick) 94 mg/dL (70-99) Micro Objective Assessment Sepsis POA, 11/29 with MSSA bacteremia. ? line infection - clinically better. Repeat BC from 21 NGTD -s/p HDC removal, 12/05. Tip cx pending. Echo neg veg. Leukocytosis - up post procedure and steroids, 12/02. better Transaminitis ? sepsis - improving Fever - better PCN allergy - nausea. Has tolerated Zosyn without problem Constipation Acute diastolic CHF CKD on HD s/p HDC on 11/26 and removal on 12/05. Malfunctioning peritoneal catheter -s/p repositioning 12/02 Anemia. s/p iron and PRBCs Diabetes Plan Plan of Care Repeat Blood cults - 12/04 NGTD Continue cefazolin through HD 2 gm , 2 gm and 3 gm , for 4-6 wks Probiotics f/u with us in 2 wks D/w GIRMA CRUZ MD Dec 09, 2018 08:25
[2018-12-09] MEDS: SEVELAMER CARBONATE 800 MG TABLET. PO SCH ×3 (09:08→17:53)
[2018-12-09] MEDS: FLUTICASONE 50MCG/NASAL SPRAY 16GM BOTTLE. NS SCH (09:08)
[2018-12-09] MEDS: POLYETHYLENE GLYCOL 3350 17 GM PACKET. PO SCH (09:09)
[2018-12-09] MEDS: CINACALCET HCL 30 MG TABLET PO SCH (09:10)
[2018-12-09] MEDS: CHOLECALCIFEROL (VITAMIN D3) 5,000 UNIT CAPSULE PO SCH (09:10)
[2018-12-09] MEDS: FOLIC/VIT B COMP W-C (RENAL) TABLET. PO SCH (09:10)
[2018-12-09] MEDS: CALCITRIOL 0.25 MCG CAPSULE. PO SCH (09:10)
[2018-12-09] MEDS: SENNOSIDES 8.6 MG TABLET PO SCH ×2 (09:10→21:08)
[2018-12-09] MEDS: DOCUSATE SODIUM 100 MG CAPSULE. PO SCH ×2 (09:10→21:09)
[2018-12-09] MEDS: FUROSEMIDE 80 MG TABLET. PO SCH ×2 (09:10→17:50)
[2018-12-09] MEDS: LACTOBACILLUS RHAMNOSUS GG 1 CAPSULE. PO SCH ×2 (09:10→21:08)
[2018-12-09] MEDS: LISINOPRIL 20 MG TABLET PO SCH ×2 (09:11→21:08)
[2018-12-09] MEDS: CARVEDILOL 12.5 MG TABLET. PO SCH ×2 (09:11→17:52)
[2018-12-09] MEDS: amLODIPine BESYLATE 10 MG TABLET PO SCH (09:12)
[2018-12-09] MEDS: cloNIDine HCL 0.2 MG TABLET PO SCH ×2 (09:12→21:09)
[2018-12-09] MEDS: ceFAZolin SODIUM 1 GM in IV DEXTROSE 5% 50 ML IV SCH ×2 (09:13→21:09)
[2018-12-09 11:00] VITALS: BP 153/91
--- NOTE | 2018-12-09 12:23 | PDOC ---
G I PROGRESS NOTE Subjective Says OK. Eating and stooling. Physical Exam Lungs clear. RRR Abdomen soft, not tender. Review of Relevant I have reviewed the following items javy (where applicable) has been applied. Labs Laboratory Tests Test 12/07/18 12:45 12/07/18 17:36 12/07/18 20:30 12/08/18 06:30 Glucose (Fingerstick) 183 mg/dL (70-99) 236 mg/dL (70-99) 236 mg/dL (70-99) Hemoglobin 7.2 g/dL (13.0-17.5) Prothrombin Time 14.8 SEC (11.7-14.0) Prothromb Time International Ratio 1.2 (0.8-1.1) Sodium Level 138 mmol/L (136-145) Potassium Level 4.7 mmol/L (3.5-5.1) Chloride Level 100 mmol/L (98-107) Carbon Dioxide Level 26 mmol/L (21-32) Anion Gap 12 (6-14) Blood Urea Nitrogen 46 mg/dL (8-26) Creatinine 14.7 mg/dL (0.7-1.3) Estimated GFR (Cockcroft-Gault) 4.6 Glucose Level 58 mg/dL (70-99) Calcium Level 8.7 mg/dL (8.5-10.1) Phosphorus Level 6.8 mg/dL (2.6-4.7) Magnesium Level 2.7 mg/dL (1.8-2.4) Albumin 2.1 g/dL (3.4-5.0) Test 12/08/18 07:25 12/08/18 08:00 12/08/18 10:12 12/08/18 10:50 Glucose (Fingerstick) 37 mg/dL (70-99) 74 mg/dL (70-99) 43 mg/dL (70-99) 78 mg/dL (70-99) Test 12/08/18 11:59 12/08/18 16:50 12/08/18 16:51 12/08/18 20:52 Glucose (Fingerstick) 164 mg/dL (70-99) 183 mg/dL (70-99) 265 mg/dL (70-99) Hepatitis B Surface Antigen Nonreactive (Nonreactive) Hepatitis B Surface Antibody Reactive Hepatitis B Core Total Antibody Negative (Negative) Test 12/09/18 03:00 12/09/18 03:42 12/09/18 07:26 Sodium Level 137 mmol/L (136-145) Potassium Level 4.9 mmol/L (3.5-5.1) Chloride Level 99 mmol/L (98-107) Carbon Dioxide Level 29 mmol/L (21-32) Anion Gap 9 (6-14) Blood Urea Nitrogen 31 mg/dL (8-26) Creatinine 10.1 mg/dL (0.7-1.3) Estimated GFR (Cockcroft-Gault) 7.1 Glucose Level 211 mg/dL (70-99) Calcium Level 9.0 mg/dL (8.5-10.1) Phosphorus Level 5.4 mg/dL (2.6-4.7) Magnesium Level 2.4 mg/dL (1.8-2.4) Albumin 2.1 g/dL (3.4-5.0) Glucose (Fingerstick) 183 mg/dL (70-99) 94 mg/dL (70-99) Laboratory Tests Test 12/08/18 16:50 12/08/18 16:51 12/08/18 20:52 12/09/18 03:00 Hepatitis B Surface Antigen Nonreactive (Nonreactive) Hepatitis B Surface Antibody Reactive Hepatitis B Core Total Antibody Negative (Negative) Glucose (Fingerstick) 183 mg/dL (70-99) 265 mg/dL (70-99) Sodium Level 137 mmol/L (136-145) Potassium Level 4.9 mmol/L (3.5-5.1) Chloride Level 99 mmol/L (98-107) Carbon Dioxide Level 29 mmol/L (21-32) Anion Gap 9 (6-14) Blood Urea Nitrogen 31 mg/dL (8-26) Creatinine 10.1 mg/dL (0.7-1.3) Estimated GFR (Cockcroft-Gault) 7.1 Glucose Level 211 mg/dL (70-99) Calcium Level 9.0 mg/dL (8.5-10.1) Phosphorus Level 5.4 mg/dL (2.6-4.7) Magnesium Level 2.4 mg/dL (1.8-2.4) Albumin 2.1 g/dL (3.4-5.0) Test 12/09/18 03:42 12/09/18 07:26 Glucose (Fingerstick) 183 mg/dL (70-99) 94 mg/dL (70-99) Microbiology 12/04/18 Blood Culture - Final, Complete NO GROWTH AFTER 5 DAYS 12/05/18 Aerobic Culture - Final, Complete 12/05/18 Aerobic Culture Result 1 (NOLAN) - Final, Complete 12/05/18 Gram Stain - Final, Complete 12/05/18 Gram Stain Result 1 (NOLAN) - Final, Complete 12/05/18 Gram Stain Result 2 (NOLAN) - Final, Complete Medications Current Medications Vancomycin HCl (Vanco Per Pharmacy) 1 each 1X ONCE MC ; Start 11/29/18 at 18:15 ; Stop 11/29/18 at 18:16; Status Cancel Piperacillin Sod/ Tazobactam Sod 3.375 gm/Sodium Chloride 50 ml @ 100 mls/hr 1X ONCE IV Last administered on 11/29/18at 18:45; Start 11/29/18 at 18:15; Stop 11/29/18 at 18:44; Status DC Ondansetron HCl (Zofran) 4 mg 1X ONCE IV Last administered on 11/29/18at 18:43 ; Start 11/29/18 at 18:15; Stop 11/29/18 at 18:23; Status DC Vancomycin HCl 2 gm/Sodium Chloride 500 ml @ 250 mls/hr 1X ONCE IV Last administered on 11/29/18at 18:46; Start 11/29/18 at 19:00; Stop 11/29/18 at 20:59 ; Status DC Iron Sucrose 200 mg/Sodium Chloride 110 ml @ 55 mls/hr 1X ONCE IV Last administered on 11/29/18at 22:20; Start 11/29/18 at 19:15; Stop 11/29/18 at 21:14 ; Status DC Ondansetron HCl (Zofran) 4 mg PRN Q8HRS PRN IV NAUSEA/VOMITING; Start 11/29/18 at 19:30; Stop 11/29/18 at 19:36; Status DC Fentanyl Citrate (Fentanyl 2ml Vial) 50 mcg PRN Q1HR PRN IV PAIN Last administered on 11/30/18at 16:23; Start 11/29/18 at 19:30; Stop 11/30/18 at 19:29 ; Status DC Acetaminophen (Tylenol) 650 mg PRN Q4HRS PRN PO FEVER Last administered on 11/30 17:35; Start 11/29/18 at 19:30; Stop 11/30/18 at 19:29; Status DC Ondansetron HCl (Zofran) 4 mg PRN Q6HRS PRN IV NAUSEA/VOMITING Last administered on 12/04/18 17:52; Start 11/29/18 at 19:45 Amlodipine Besylate (Norvasc) 10 mg DAILY PO Last administered on 12/09/18 09: 12; Start 11/30/18 at 09:00 Clonidine HCl (Catapres) 0.2 mg BID PO Last administered on 12/09/18 09:12; Start 11/29/18 at 21:00 Docusate Sodium (Colace) 100 mg BID PO Last administered on 12/09/18 09:10; Start 11/29/18 at 21:00 Furosemide (Lasix) 80 mg BID92 PO Last administered on 12/09/18 09:10; Start 11/29/18 at 20:00 Insulin Glargine (Lantus) 32 units HS SQ Last administered on 12/07/18 21:46; Start 11/29/18 at 21:00; Stop 12/08/18 at 10:16; Status DC Lisinopril (Prinivil) 40 mg BID PO Last administered on 12/09/18 09:11; Start 11/29/18 at 21:00 Sevelamer Carbonate (Renvela) 4,000 mg TIDWMEALS PO Last administered on 09:08; Start 11/30/18 at 08:00 Calcitriol (Rocaltrol) 0.25 mcg DAILY PO Last administered on 12/09/18 09:10; Start 11/30/18 at 09:00 Carvedilol (Coreg) 12.5 mg BIDWMEALS PO Last administered on 12/09/18 09:11; Start 11/30/18 at 08:00 Vitamin D (Vitamin D3) 5,000 unit DAILY PO Last administered on 12/09/18 09:10 ; Start 11/30/18 at 09:00 Cinacalcet (Sensipar) 60 mg DAILY PO Last administered on 12/09/18 09:10; Start 11/30/18 at 09:00 Polyethylene Glycol (miraLAX PACKET) 17 gm DAILY PO Last administered on at 09:09; Start 11/30/18 at 09:00 Sennosides (Senna) 8.6 mg BID PO Last administered on 12/09/18at 09:10; Start at 21:00 Simvastatin (Zocor) 20 mg HS PO Last administered on 12/08/18at 21:10; Start at 21:00 Vitamin B Complex/ Vitamin C (Johanna-Celia) 1 tab DAILY PO Last administered on at 09:10; Start 11/30/18 at 09:00 Insulin Human Lispro (HumaLOG) 0-9 UNITS TIDWMEALS SQ Last administered on 11/29at 22:44; Start 11/30/18 at 08:00; Stop 11/30/18 at 10:28; Status DC Dextrose (Dextrose 50%-Water Syringe) 12.5 gm PRN Q15MIN PRN IV SEE COMMENTS Last administered on 12/08/18at 10:07; Start 11/29/18 at 19:45 Aspirin (Anshul Aspirin) 325 mg 1X ONCE PO Last administered on 11/29/18at 20:19 ; Start 11/29/18 at 19:45; Stop 11/29/18 at 19:46; Status DC Labetalol HCl (Normodyne Iv Push) 10 mg PRN Q2HR PRN IVP HYPERTENSION, SEE COMMENTS Last administered on 12/03/18at 04:25; Start 11/30/18 at 04:00 Sodium Chloride 1,000 ml @ 100 mls/hr 1X ONCE IV Last administered on at 04:17; Start 11/30/18 at 04:30; Stop 11/30/18 at 05:57; Status DC Darbepoetin David (Aranesp) 100 mcg 1X ONCE SQ Last administered on 11/30/18at 06:06; Start 11/30/18 at 07:00; Stop 11/30/18 at 07:01; Status DC Sodium Chloride 1,000 ml @ 1,000 mls/hr Q1H PRN IV hypotension; Start 11/30/18 at 07:34; Stop 11/30/18 at 13:39; Status DC Albumin Human 200 ml @ 200 mls/hr 1X PRN PRN IV Hypotension; Start 11/30/18 at 07:45; Stop 11/30/18 at 13:44; Status DC Diphenhydramine HCl (Benadryl) 25 mg 1X PRN PRN IV ITCHING; Start 11/30/18 at 07:45; Stop 12/01/18 at 07:44; Status DC Sodium Chloride 1,000 ml @ 400 mls/hr Q2H30M PRN IV PATENCY; Start 11/30/18 at 07:34; Stop 11/30/18 at 19:33; Status DC Info (PHARMACY MONITORING -- do not chart) 1 each PRN DAILY PRN MC SEE COMMENTS ; Start 11/30/18 at 07:45; Stop 12/03/18 at 15:49; Status DC Info (PHARMACY MONITORING -- do not chart) 1 each PRN DAILY PRN MC SEE COMMENTS ; Start 11/30/18 at 07:45; Status UNV Darbepoetin David (Aranesp) 60 mcg WEEKLYHS SQ ; Start 11/30/18 at 21:00; Stop at 21:00; Status DC Darbepoetin David (Aranesp) 60 mcg WEEKLYHS SQ Last administered on 12/07/18at 21 :31; Start 12/07/18 at 21:00 Insulin Human Lispro (HumaLOG) 0-9 UNITS TIDWMEALS SQ Last administered on 12/08at 18:02; Start 11/30/18 at 12:00 Dextrose (Dextrose 50%-Water Syringe) 12.5 gm PRN Q15MIN PRN IV SEE COMMENTS; Start 11/30/18 at 10:30; Status UNV Vancomycin HCl (Vanco Per Pharmacy) 1 each PRN DAILY PRN MC SEE COMMENTS Last administered on 12/03/18at 15:53; Start 11/30/18 at 12:15; Stop 12/04/18 at 08:03 ; Status DC Piperacillin Sod/ Tazobactam Sod (Zosyn Per Pharmacy) 1 each PRN DAILY PRN MC SEE COMMENTS; Start 11/30/18 at 12:15; Stop 12/05/18 at 10:11; Status DC Piperacillin Sod/ Tazobactam Sod 2.25 gm/Sodium Chloride 50 ml @ 100 mls/hr Q8HRS IV Last administered on 12/05/18at 06:00; Start 11/30/18 at 13:00; Stop at 10:11; Status DC Calcium Carbonate/ Glycine (Tums) 500 mg PRN BID PRN PO INDIGESTION; Start at 13:30 Albuterol Sulfate (Ventolin Neb Soln) 2.5 mg PRN Q6HRS PRN NEB SHORTNESS OF BREATH; Start 11/30/18 at 13:45 Non-Formulary Medication (Epoetin David (Procrit)) 10,000 unit WEEKLY IJ ; Start 12/07/18 at 09:00; Stop 12/07/18 at 09:00; Status DC Fluticasone Propionate (Flonase) 2 spray DAILY NS Last administered on at 09:08; Start 11/30/18 at 14:00 Pantoprazole Sodium (Protonix) 40 mg DAILYAC PO Last administered on 12/09/18at 05:51; Start 11/30/18 at 14:00 Vancomycin HCl (Vancomycin Random Level) 1 each 1X ONCE MC Last administered on 11/30/18at 16:00; Start 11/30/18 at 16:00; Stop 11/30/18 at 16:01; Status DC Sodium Cl/Sod Bicarb/Potass Cl/ PEG (Golytely) 4,000 ml 1X ONCE PO Last administered on 11/30/18at 17:33; Start 11/30/18 at 18:00; Stop 11/30/18 at 18:01 ; Status DC Polyethylene Glycol (miraLAX PACKET) 17 gm PRN DAILY PRN PO CONSTIPATION; Start 11/30/18 at 17:00 Acetaminophen (Tylenol) 650 mg PRN Q4HRS PRN PO FEVER Last administered on 12/05at 18:06; Start 11/30/18 at 20:15 Vancomycin HCl 500 mg/Sodium Chloride 100 ml @ 100 mls/hr QMWF IV Last administered on 12/03/18at 16:53; Start 12/01/18 at 16:00; Stop 12/04/18 at 08:03 ; Status DC Sodium Chloride 1,000 ml @ 1,000 mls/hr Q1H PRN IV hypotension; Start 12/01/18 at 07:00; Stop 12/01/18 at 18:00; Status DC Sodium Chloride 1,000 ml @ 400 mls/hr Q2H30M PRN IV PATENCY; Start 12/01/18 at 07:00; Stop 12/01/18 at 18:59; Status DC Info (PHARMACY MONITORING -- do not chart) 1 each PRN DAILY PRN MC SEE COMMENTS ; Start 12/01/18 at 10:30; Status UNV Info (PHARMACY MONITORING -- do not chart) 1 each PRN DAILY PRN MC SEE COMMENTS ; Start 12/01/18 at 10:30; Status UNV Heparin Sodium (Porcine) 5000 unit/Sodium Chloride 505 ml @ 505 mls/hr 1X ONCE IRR Last administered on 12/02/18at 11:05; Start 12/02/18 at 07:00; Stop at 07:59; Status DC Bupivacaine HCl/ Epinephrine Bitart (Sensorcain-Mpf Epi 0.5%-1:018179) 30 ml STK -MED ONCE .ROUTE Last administered on 12/02/18at 11:05; Start 12/02/18 at 07:36 ; Stop 12/02/18 at 07:37; Status DC Fentanyl Citrate (Fentanyl 2ml Vial) 100 mcg STK-MED ONCE .ROUTE ; Start at 09:05; Stop 12/02/18 at 09:06; Status DC Rocuronium [place] (Zemuron) 50 mg STK-MED ONCE .ROUTE ; Start 12/02/18 at 09:05 ; Stop 12/02/18 at 09:06; Status DC Lidocaine HCl (Lidocaine Pf 2% Vial) 5 ml STK-MED ONCE .ROUTE ; Start 12/02/18 at 09:05; Stop 12/02/18 at 09:06; Status DC Propofol 20 ml @ As Directed STK-MED ONCE IV ; Start 12/02/18 at 09:06; Stop at 09:07; Status DC Dexamethasone Sodium Phosphate (Decadron) 20 mg STK-MED ONCE .ROUTE ; Start at 09:06; Stop 12/02/18 at 09:07; Status DC Ondansetron HCl (Zofran) 4 mg STK-MED ONCE .ROUTE ; Start 12/02/18 at 09:06; Stop 12/02/18 at 09:07; Status DC Insulin Human Lispro (HumaLOG) 10 units 1X ONCE SQ ; Start 12/02/18 at 09:45; Stop 12/02/18 at 09:46; Status DC Levofloxacin/ Dextrose 100 ml @ As Directed STK-MED ONCE IV ; Start 12/02/18 at 10:46; Stop 12/02/18 at 10:47; Status DC Metoclopramide HCl (Reglan Vial) 10 mg STK-MED ONCE .ROUTE ; Start 12/02/18 at 10:59; Stop 12/02/18 at 11:00; Status DC Neostigmine Methylsulfate (Bloxiverz) 10 mg STK-MED ONCE .ROUTE ; Start at 12:25; Stop 12/02/18 at 12:26; Status DC Glycopyrrolate (Robinul) 1 mg STK-MED ONCE .ROUTE ; Start 12/02/18 at 12:25; Stop 12/02/18 at 12:26; Status DC Sevoflurane (Ultane) 90 ml STK-MED ONCE IH ; Start 12/02/18 at 12:27; Stop 12/02 at 12:28; Status DC Ondansetron HCl (Zofran) 4 mg PRN Q6HRS PRN IV NAUSEA/VOMITING; Start 12/02/18 at 13:00; Stop 12/03/18 at 12:59; Status DC Fentanyl Citrate (Fentanyl 2ml Vial) 25 mcg PRN Q5MIN PRN IV MILD PAIN; Start 12/02/18 at 13:00; Stop 12/02/18 at 20:24; Status DC Fentanyl Citrate (Fentanyl 2ml Vial) 50 mcg PRN Q5MIN PRN IV MODERATE TO SEVERE PAIN Last administered on 12/02/18at 13:46; Start 12/02/18 at 13:00; Stop 12/02/18 at 20:24; Status DC Morphine Sulfate (Morphine Sulfate) 1 mg PRN Q10MIN PRN IV SEVERE PAIN; Start 12/02/18 at 13:00; Stop 12/02/18 at 20:24; Status DC Ringer's Solution 1,000 ml @ 30 mls/hr Q24H IV ; Start 12/02/18 at 12:51; Stop 12/03/18 at 00:50; Status DC Lidocaine HCl (Xylocaine-Mpf 1% 2ml Vial) 2 ml 1X PRN PRN ID IV START; Start at 13:00; Stop 12/03/18 at 12:59; Status DC Hydromorphone HCl (Dilaudid) 0.5 mg PRN Q10MIN PRN IV SEV PAIN, Second choice Last administered on 12/02/18at 16:52; Start 12/02/18 at 13:00; Stop 12/03/18 at 12:59; Status DC Prochlorperazine Edisylate (Compazine) 5 mg PACU PRN PRN IV NAUSEA, MRX1; Start 12/02/18 at 13:00; Stop 12/03/18 at 12:59; Status DC Sodium Chloride 1,000 ml @ 100 mls/hr Q10H IV Last administered on 12/02/18at 13:04; Start 12/02/18 at 10:45; Stop 12/03/18 at 10:14; Status DC Hydromorphone HCl (Dilaudid) 1 mg PRN Q4HRS PRN IV pain Last administered on at 18:31; Start 12/02/18 at 13:15; Stop 12/02/18 at 20:24; Status DC Oxycodone/ Acetaminophen (Percocet 5/325) 1 tab PRN Q4HRS PRN PO PAIN Last administered on 12/08/18at 13:33; Start 12/02/18 at 13:15 Levofloxacin/ Dextrose 100 ml @ 100 mls/hr 1X ONCE IV ; Start 12/02/18 at 10: 45; Stop 12/02/18 at 13:23; Status DC Lactobacillus Rhamnosus (Culturelle) 1 cap BID PO Last administered on at 09:10; Start 12/02/18 at 21:00 Hydromorphone HCl (Dilaudid) 1 mg PRN Q3HRS PRN IV SEVERE PAIN Last administered on 12/03/18at 21:16; Start 12/02/18 at 20:30 Levofloxacin/ Dextrose (LEVAQUIN 500mg PREMIX) 500 mg STK-MED ONCE IV ; Start at 11:00; Stop 12/03/18 at 08:41; Status DC Sodium Chloride 1,000 ml @ 1,000 mls/hr Q1H PRN IV hypotension; Start 12/03/18 at 07:00; Stop 12/03/18 at 12:59; Status DC Sodium Chloride 1,000 ml @ 400 mls/hr Q2H30M PRN IV PATENCY; Start 12/03/18 at 07:00; Stop 12/03/18 at 18:59; Status DC Info (PHARMACY MONITORING -- do not chart) 1 each PRN DAILY PRN MC SEE COMMENTS ; Start 12/03/18 at 08:45; Status UNV Info (PHARMACY MONITORING -- do not chart) 1 each PRN DAILY PRN MC SEE COMMENTS ; Start 12/03/18 at 08:45 Sodium Chloride 1,000 ml @ 1,000 mls/hr Q1H PRN IV hypotension; Start 12/05/18 at 07:00; Stop 12/05/18 at 12:59; Status DC Sodium Chloride 1,000 ml @ 400 mls/hr Q2H30M PRN IV PATENCY; Start 12/05/18 at 07:00; Stop 12/05/18 at 18:59; Status DC Info (PHARMACY MONITORING -- do not chart) 1 each PRN DAILY PRN MC SEE COMMENTS ; Start 12/05/18 at 08:15; Status UNV Info (PHARMACY MONITORING -- do not chart) 1 each PRN DAILY PRN MC SEE COMMENTS ; Start 12/05/18 at 08:15; Status UNV Cefazolin Sodium 1 gm/Dextrose 50 ml @ 100 mls/hr Q12HR IV Last administered on 12/09/18at 09:13; Start 12/05/18 at 12:00 Magnesium Sulfate 50 ml @ 25 mls/hr PRN DAILY PRN IV for Mag < 1.7 on am labs; Start 12/07/18 at 10:00 Insulin Glargine (Lantus) 26 units HS SQ Last administered on 12/08/18at 21:22; Start 12/08/18 at 21:00 Lidocaine/ Epinephrine (LIDOCAINE 1%-EPI 1:100,000 Multi-Dose) 20 ml STK-MED ONCE .ROUTE ; Start 12/08/18 at 10:32; Stop 12/08/18 at 10:33; Status DC Dextrose 500 ml @ 0 mls/hr 1X ONCE IV Last administered on 12/08/18at 10:45; Start 12/08/18 at 10:45; Stop 12/08/18 at 10:46; Status DC Midazolam HCl (Versed) 5 mg STK-MED ONCE .ROUTE ; Start 12/08/18 at 10:48; Stop 12/08/18 at 10:49; Status DC Fentanyl Citrate (Fentanyl 2ml Vial) 100 mcg STK-MED ONCE .ROUTE ; Start at 10:48; Stop 12/08/18 at 10:49; Status DC Midazolam HCl (Versed) 5 mg 1X ONCE IV Last administered on 12/08/18at 11:34; Start 12/08/18 at 11:00; Stop 12/08/18 at 11:01; Status DC Fentanyl Citrate (Fentanyl 2ml Vial) 100 mcg 1X ONCE IV Last administered on at 11:34; Start 12/08/18 at 11:00; Stop 12/08/18 at 11:01; Status DC Lidocaine/ Epinephrine (LIDOCAINE 1%-EPI 1:100,000 Multi-Dose) 20 ml 1X ONCE IJ Last administered on 12/08/18at 11:34; Start 12/08/18 at 11:00; Stop at 11:01; Status DC Sodium Chloride 1,000 ml @ 1,000 mls/hr Q1H PRN IV hypotension; Start 12/08/18 at 13:45; Stop 12/08/18 at 19:44; Status DC Sodium Chloride 1,000 ml @ 400 mls/hr Q2H30M PRN IV PATENCY; Start 12/08/18 at 13:45; Stop 12/09/18 at 01:44; Status DC Info (PHARMACY MONITORING -- do not chart) 1 each PRN DAILY PRN MC SEE COMMENTS ; Start 12/08/18 at 13:45; Status UNV Info (PHARMACY MONITORING -- do not chart) 1 each PRN DAILY PRN MC SEE COMMENTS ; Start 12/08/18 at 13:45 Active Scripts Active Reported Protonix (Pantoprazole Sodium) 20 Mg Tablet.dr 2 Tab PO DAILY Flonase Allergy Relief (Fluticasone Propionate) 9.9 Ml Peytona.susp 2 Sprays NS DAILY Procrit (Epoetin David) 10,000 Unit/1 Ml Vial 10,000 Unit IJ WEEKLY Tums (Calcium Carbonate) 200 Mg Tab.chew 200 Mg PO BID PRN Proair Respiclick (Albuterol Sulfate) 90 Mcg Aer.pow.ba 1-2 Puff IH PRN Q6HRS PRN Senna (Sennosides) 8.6 Mg Tablet 8.6 Mg PO BID Miralax (Polyethylene Glycol 3350) 17 Gm Powd.pack 1 Packet PO DAILY Colace (Docusate Sodium) 100 Mg Capsule 1 Cap PO BID Carvedilol 25 Mg Tablet 25 Mg PO BIDWMEALS Renvela (Sevelamer Carbonate) 800 Mg Tablet 5 Tab PO TIDWMEALS Furosemide 80 Mg Tablet 1 Tab PO BID Vitamin D (Cholecalciferol (Vitamin D3)) 5,000 Unit Tablet 5,000 Unit PO DAILY Calcitriol 0.25 Mcg Capsule 2 Cap PO DAILY Clonidine Hcl 0.2 Mg Tablet 1 Tab PO BID Johanna-Celia Rx Tablet (Vit B Cmplx 3/Fa/Vit C/Biotin) 1 Each Tablet 1 Each PO DAILY Sensipar (Cinacalcet Hcl) 60 Mg Tablet 60 Mg PO DAILY Amlodipine Besylate 10 Mg Tablet 10 Mg PO DAILY Simvastatin 20 Mg Tablet 20 Mg PO HS Lisinopril 40 Mg Tablet 1 Tab PO BID Novolog (Insulin Aspart) 100 Unit/1 Ml Vial 100 Unit SQ sliding scale Lantus Solostar (Insulin Glargine,Hum.rec.anlog) 100 Unit/1 Ml Insuln.pen 15 Unit SQ HS Vitals/I & O Vital Sign - Last 24 Hours 12/08/18 12/08/18 12/08/18 12/08/18 13:32 13:33 17:42 17:46 Pulse 78 Resp 12 B/P (MAP) 173/95 176/91 (119) 176/91 O2 Delivery Room Air 12/08/18 12/08/18 12/08/18 12/08/18 19:50 19:54 21:08 21:09 Temp 98.3 98.3 Pulse 77 77 77 Resp 16 B/P (MAP) 175/96 (122) 175/96 175/96 Pulse Ox 99 O2 Delivery Room Air Room Air 12/08/18 12/09/18 12/09/18 12/09/18 23:00 03:00 07:00 08:00 Temp 98.2 98.2 98.2 98.2 98.2 98.2 Pulse 100 78 82 Resp 18 18 18 B/P (MAP) 152/93 (112) 147/91 (109) 152/94 (113) Pulse Ox 100 99 97 O2 Delivery Room Air Room Air Room Air Room Air 12/09/18 12/09/18 12/09/18 12/09/18 09:11 09:11 09:12 09:12 Pulse 82 82 82 B/P (MAP) 152/94 152/94 152/94 152/94 12/09/18 11:00 Temp 98.0 98.0 Pulse 85 Resp 18 B/P (MAP) 153/91 (111) Pulse Ox 97 O2 Delivery Room Air Intake and Output 12/08/18 12/08/18 12/09/18 14:59 22:59 06:59 Intake Total 360 ml 1090 ml 360 ml Balance 360 ml 1090 ml 360 ml Problem List Problems Medical Problems: (1) Abnormal EKG Status: Acute (2) Elevated troponin Status: Acute (3) End stage renal disease Status: Acute (4) Fever Status: Acute Assessment Stable post-PD catheter revision. Chronic anemia. Plan of Care Note Continue as now. ORQUIDEA MAR MD Dec 09, 2018 12:23
--- NOTE | 2018-12-09 13:17 | NUR ---
SS following up with discharge planning. SS phoned and faxed final documentation to [facility]. [facility] contacted SS and notified SS that pt's chair time is scheduled for Saturday, Saturday, and Saturday at 1545 at [facility] with a starting chair time on 12/10/2018 at 1515. Pt's RN notified.
--- NOTE | 2018-12-09 13:24 | PDOC ---
Provider Note Provider Note SURG up walking the halls with his , on their way to the gift shop having stools asking for a binder will order a binder will sign off see in the office next week Thanks PONCHO STRANGE MD Dec 09, 2018 13:24
--- NOTE | 2018-12-09 14:01 | NUR ---
SS following up with discharge planning. SS ph[facility] fax [phone].
--- NOTE | 2018-12-09 14:32 | PDOC ---
Renal-Progress Notes Subjective Notes Notes FEELING BETTER History of Present Illness Hx of present illness BETTER Vitals Vitals Vital Signs Date Time Temp Pulse Resp B/P (MAP) Pulse Ox O2 Delivery O2 Flow Rate FiO2 12/09/18 11:00 98.0 85 18 153/91 (111) 97 Room Air 98.0 12/08/18 11:55 2.0 Weight Weight [ ] I.O. Intake and Output Intake and Output 12/09/18 07:00 Intake Total 1810 ml Balance 1810 ml Intake Oral 1810 ml # Bowel Movements 2 Labs Labs Laboratory Tests Test 12/08/18 16:50 12/08/18 16:51 12/08/18 20:52 12/09/18 03:00 Hepatitis B Surface Antigen Nonreactive (Nonreactive) Hepatitis B Surface Antibody Reactive Hepatitis B Core Total Antibody Negative (Negative) Glucose (Fingerstick) 183 mg/dL (70-99) 265 mg/dL (70-99) Sodium Level 137 mmol/L (136-145) Potassium Level 4.9 mmol/L (3.5-5.1) Chloride Level 99 mmol/L (98-107) Carbon Dioxide Level 29 mmol/L (21-32) Anion Gap 9 (6-14) Blood Urea Nitrogen 31 mg/dL (8-26) Creatinine 10.1 mg/dL (0.7-1.3) Estimated GFR (Cockcroft-Gault) 7.1 Glucose Level 211 mg/dL (70-99) Calcium Level 9.0 mg/dL (8.5-10.1) Phosphorus Level 5.4 mg/dL (2.6-4.7) Magnesium Level 2.4 mg/dL (1.8-2.4) Albumin 2.1 g/dL (3.4-5.0) Test 12/09/18 03:42 12/09/18 07:26 12/09/18 12:24 Glucose (Fingerstick) 183 mg/dL (70-99) 94 mg/dL (70-99) 234 mg/dL (70-99) Micro Micro Microbiology 12/04/18 Blood Culture - Final, Complete NO GROWTH AFTER 5 DAYS 12/05/18 Aerobic Culture - Final, Complete 12/05/18 Aerobic Culture Result 1 (NOLAN) - Final, Complete 12/05/18 Gram Stain - Final, Complete 12/05/18 Gram Stain Result 1 (NOLAN) - Final, Complete 12/05/18 Gram Stain Result 2 (NOLAN) - Final, Complete Review of Systems Constitutional: yes: alert, oriented Ears/Nose/Throat: Yes: no symptom reported Eyes: Yes: no symptom reported Pulmonary: Yes no symptom reported Cardiovascular: Yes no symptom reported Gastrointestional: Yes: no symptom reported Genitourinary: Yes: no symptom reported Musculoskeletal: Yes: no symptom reported Skin: Yes no symptom reported Psychiatric/Neurological: Yes: no symptom reported Endocrine: Yes: no symptom reported Physical Exam General Appearance: no apparent distress Heart: S1S2 Abdomen: soft Genitourinary: bladder flat Extremities: pulses present Neurology: alert, oriented Assessment Assessment IMP ESRD SEPSIS BACTEREMIA S/P REMOVAL OF TDC LAST WEEK AND S/P NEW TDC YESTERDAY S/P PD CATHETER REPAIR AND REPOSITIONING 12-02 DM II HTN ACUTE DIASTOLIC CHF-BETTER PLAN HD TOMORROW CONT ANTIBIOTICS WILL RESUME PD OP IN COUPLE WEEKS ONCE IT GOES WELL WILL REMOVE DIALYSIS CATHETER OP UPDATED AT BEDSIDE ALSO D/W ID OP ANTIBIOTICS WILL BE GIVEN AT HD UNIT STARTING SATURDAY OK TO D/C AFTER HD TOMORROW ARIANNE UMANA MD Dec 09, 2018 14:32
--- NOTE | 2018-12-09 14:53 | NUR ---
Spoke with Dr. Rodriguez. Patient ok to discharge and follow up next week outpatient.
--- NOTE | 2018-12-09 14:54 | NUR ---
Connie spoke with nephrology, patient will stay and receive HD tomorrow and antibiotics tomorrow inpatient then discharge home tomorrow.
--- NOTE | 2018-12-09 15:35 | PDOC3 ---
Discharge Summary Visit Information Date of Admission: Nov 30, 2018 Date of Discharge: Dec 09, 2018 Admitting Diagnosis: Probable sepsis in a middle-aged male who has a foreign Final Diagnosis Sepsis POA. Procalcitonin 94.62. secondary to line infection -resolved Hypoglycemic event resolved GPC bacteremia (3 of 4 bottles) POA 11/29 with MSSA resolved Constipation resolved Acute diastolic CHF resolved CKD on HD Malfunctioning peritoneal catheter status post repositioning and hernia repair on 12/02/2018 Anemia. s/p iron and PRBCs 2 units evaluated by hematology and added Aranesp to his regimen Diabetes insulin requiring Brief Hospital Course Allergies Allergies Coded Allergies Type Severity Reaction Last Updated Verified Penicillins Adverse Reaction Mild Nausea 12/02/18 Yes Vital Signs Vital Signs Date Time Temp Pulse Resp B/P (MAP) Pulse Ox O2 Delivery O2 Flow Rate FiO2 12/09/18 11:00 98.0 85 18 153/91 (111) 97 Room Air 98.0 12/08/18 11:55 2.0 Lab Results Laboratory Tests Test 12/07/18 17:36 12/07/18 20:30 12/08/18 06:30 12/08/18 07:25 Glucose (Fingerstick) 236 mg/dL (70-99) 236 mg/dL (70-99) 37 mg/dL (70-99) Hemoglobin 7.2 g/dL (13.0-17.5) Prothrombin Time 14.8 SEC (11.7-14.0) Prothromb Time International Ratio 1.2 (0.8-1.1) Sodium Level 138 mmol/L (136-145) Potassium Level 4.7 mmol/L (3.5-5.1) Chloride Level 100 mmol/L (98-107) Carbon Dioxide Level 26 mmol/L (21-32) Anion Gap 12 (6-14) Blood Urea Nitrogen 46 mg/dL (8-26) Creatinine 14.7 mg/dL (0.7-1.3) Estimated GFR (Cockcroft-Gault) 4.6 Glucose Level 58 mg/dL (70-99) Calcium Level 8.7 mg/dL (8.5-10.1) Phosphorus Level 6.8 mg/dL (2.6-4.7) Magnesium Level 2.7 mg/dL (1.8-2.4) Albumin 2.1 g/dL (3.4-5.0) Test 12/08/18 08:00 12/08/18 10:12 12/08/18 10:50 12/08/18 11:59 Glucose (Fingerstick) 74 mg/dL (70-99) 43 mg/dL (70-99) 78 mg/dL (70-99) 164 mg/dL (70-99) Test 12/08/18 16:50 12/08/18 16:51 12/08/18 20:52 12/09/18 03:00 Hepatitis B Surface Antigen Nonreactive (Nonreactive) Hepatitis B Surface Antibody Reactive Hepatitis B Core Total Antibody Negative (Negative) Glucose (Fingerstick) 183 mg/dL (70-99) 265 mg/dL (70-99) Sodium Level 137 mmol/L (136-145) Potassium Level 4.9 mmol/L (3.5-5.1) Chloride Level 99 mmol/L (98-107) Carbon Dioxide Level 29 mmol/L (21-32) Anion Gap 9 (6-14) Blood Urea Nitrogen 31 mg/dL (8-26) Creatinine 10.1 mg/dL (0.7-1.3) Estimated GFR (Cockcroft-Gault) 7.1 Glucose Level 211 mg/dL (70-99) Calcium Level 9.0 mg/dL (8.5-10.1) Phosphorus Level 5.4 mg/dL (2.6-4.7) Magnesium Level 2.4 mg/dL (1.8-2.4) Albumin 2.1 g/dL (3.4-5.0) Test 12/09/18 03:42 12/09/18 07:26 12/09/18 12:24 Glucose (Fingerstick) 183 mg/dL (70-99) 94 mg/dL (70-99) 234 mg/dL (70-99) Laboratory Tests Test 12/08/18 16:50 12/08/18 16:51 12/08/18 20:52 12/09/18 03:00 Hepatitis B Surface Antigen Nonreactive (Nonreactive) Hepatitis B Surface Antibody Reactive Hepatitis B Core Total Antibody Negative (Negative) Glucose (Fingerstick) 183 mg/dL (70-99) 265 mg/dL (70-99) Sodium Level 137 mmol/L (136-145) Potassium Level 4.9 mmol/L (3.5-5.1) Chloride Level 99 mmol/L (98-107) Carbon Dioxide Level 29 mmol/L (21-32) Anion Gap 9 (6-14) Blood Urea Nitrogen 31 mg/dL (8-26) Creatinine 10.1 mg/dL (0.7-1.3) Estimated GFR (Cockcroft-Gault) 7.1 Glucose Level 211 mg/dL (70-99) Calcium Level 9.0 mg/dL (8.5-10.1) Phosphorus Level 5.4 mg/dL (2.6-4.7) Magnesium Level 2.4 mg/dL (1.8-2.4) Albumin 2.1 g/dL (3.4-5.0) Test 12/09/18 03:42 12/09/18 07:26 12/09/18 12:24 Glucose (Fingerstick) 183 mg/dL (70-99) 94 mg/dL (70-99) 234 mg/dL (70-99) Brief Hospital Course HISTORY OF PRESENT ILLNESS: The patient is a pleasant 38-year-old male who has been on dialysis for 6 years. He just got a new dialysis catheter on the right last Saturday. Over the past couple of days, he has developed some low-grade fevers, rates it at 9/10. He has associated anxiety. While in the ER, he was noted to have a temperature of 102.4. It appears he might be septic. Symptoms are worse with standing. He tried taking some home meds, but that did not work. He describes it as annoying. I have discussed the case with ER physician. We are going to admit the patient, give him some IV antibiotics and consult Infectious Disease and Nephrology. Mr. Allen De La Cruz had a very long hospital stay. Initially he was started on vancomycin and Zosyn for his questionable line infection. Gram-positive cocci were identified MSSA bacteremia was identified. Patient went further workup with echocardiogram performed on 12/04 2018 with the following results: The left ventricle is normal size. The left ventricular systolic function is normal and the ejection fraction is within normal range. The Ejection Fraction is 60-65%. There is mild concentric left ventricular hypertrophy. There is no significant aortic valvular stenosis. Doppler and Color Flow revealed no significant aortic regurgitation. Doppler and Color-flow revealed trace eccentric mitral regurgitation. Doppler and Color Flow revealed trace tricuspid regurgitation. The PA pressure was estimated at 24 mmHg. Signed by : Bryce Hough MD Electronically Approved : 12/04/2018 16:23:25 Underwent a open repositioning of the PD catheter and lysis of adhesions by Dr. Rodriguez on 12/02/2018. He tolerated the procedure well and continued to recover. Dialysis catheter for HD was discontinued and repeat blood cultures were drawn in order to document resolution of bacteremia. This past 12/08/2018 he had a new dialysis catheter placed long-term goals is for the patient to undergo pancreatic and renal transplant hopefully in the near future. The patient will continue with Ancef as per our infectious disease product marketing consultant yaima 4-6 weeks and this will be given in the outpatient setting at dialysis. He has a chair appointment for tomorrow afternoon and he is in good spirits to be dismissed home, his concerns were addressed to the best of my abilities General: Alert, Oriented X3, Cooperative, No acute distress Heart: Regular rate Lungs: Clear Abdomen: Soft, Other (dressing dry, cath in place) Extremities: No clubbing, No cyanosis Skin: No breakdown Discharge Information Condition at Discharge: Improved Follow Up: Weeks Disposition/Orders: D/C to Home Scheduled Amlodipine Besylate (Amlodipine Besylate) 10 Mg Tablet, 10 MG PO DAILY, ( Reported) Entered as Reported by: David Alba on 12/21/171113 Last Action: Reviewed on 11/30/1823 by ASHLEY LELIA Calcitriol (Calcitriol) 0.25 Mcg Capsule, 2 CAP PO DAILY for low calcium, #30 Ref 5 (Reported) Entered as Reported by: David Alba on 12/21/171113 Last Action: Reviewed on 11/30/1823 by ASHLEY CarmudiSHIRLEY Carvedilol (Carvedilol) 25 Mg Tablet, 25 MG PO BIDWMEALS for CARDIAC, (Reported) Entered as Reported by: HILARY MIX on 11/24/18 1242 Last Action: Reviewed on 11/30/1823 by ASHLEY CarmudiSHIRLEY Cholecalciferol (Vitamin D3) (Vitamin D) 5,000 Unit Tablet, 5,000 UNIT PO DAILY, (Reported) Entered as Reported by: David Alba on 12/21/171113 Last Action: Reviewed on 11/30/1823 by ASHLEY ROWELL Cinacalcet Hcl (Sensipar) 60 Mg Tablet, 60 MG PO DAILY, (Reported) Entered as Reported by: David Alba on 12/21/171113 Last Action: Reviewed on 11/30/1823 by ASHLEY ROWELL Clonidine Hcl (Clonidine Hcl) 0.2 Mg Tablet, 1 TAB PO BID, #60 Ref 5 (Reported) Entered as Reported by: David Alba on 12/21/171113 Last Action: Reviewed on 11/30/1823 by ASHLEY ROWELL Docusate Sodium (Colace) 100 Mg Capsule, 1 CAP PO BID for constipation, #30 ( Reported) Entered as Reported by: HILARY MIX on 11/24/181248 Last Action: Reviewed on 11/30/1823 by ASHLEY ROWELL Epoetin David (Procrit) 10,000 Unit/1 Ml Vial, 10,000 UNIT IJ WEEKLY for anemia, (Reported) Entered as Reported by: ASHLEY ROWELL on 11/30/1823 Last Action: Converted on 11/30/181328 by NIARaj CASTPRASANNA Fluticasone Propionate (Flonase Allergy Relief) 9.9 Ml Stebbins.susp, 2 SPRAYS NS DAILY for allergies, (Reported) Entered as Reported by: ASHLEY ROWELL on 11/30/1823 Last Action: Converted on 11/30/181328 by NIARaj HOLT Furosemide (Furosemide) 80 Mg Tablet, 1 TAB PO BID, #180 Ref 3 (Reported) Entered as Reported by: David Alba on 12/21/171113 Last Action: Reviewed on 11/30/1823 by ASHLEY ROWELL Insulin Glargine,Hum.rec.anlog (Lantus Solostar) 100 Unit/1 Ml Insuln.pen, 15 UNIT SQ HS for hyperglycemia, (Reported) Entered as Reported by: SUKH HERNÁNDEZ on 04/15/171603 Last Action: Reviewed on 11/30/1823 by ASHLEY ROWELL Lisinopril (Lisinopril) 40 Mg Tablet, 1 TAB PO BID, #30 Ref 5 (Reported) Entered as Reported by: David Alba on 12/21/171113 Last Action: Reviewed on 11/30/1823 by ASHLEY ROWELL Pantoprazole Sodium (Protonix) 20 Mg Tablet.dr, 2 TAB PO DAILY for GERD, #30 ( Reported) Entered as Reported by: ASHLEY ROWELL on 11/30/1823 Last Action: Converted on 11/30/181328 by NIAL CASTLE Polyethylene Glycol 3350 (Miralax) 17 Gm Powd.pack, 1 PACKET PO DAILY for constipation, #30 Ref 3 (Reported) Entered as Reported by: HILARY MIX on 11/24/181248 Last Action: Reviewed on 11/30/1823 by ASHLEY ROWELL Sennosides (Senna) 8.6 Mg Tablet, 8.6 MG PO BID for constipation, (Reported) Entered as Reported by: HILARY MIX on 11/24/181248 Last Action: Reviewed on 11/30/1823 by ASHLEY ROWELL Sevelamer Carbonate (Renvela) 800 Mg Tablet, 5 TAB PO TIDWMEALS, #810 Ref 3 ( Reported) Entered as Reported by: David Alba on 12/21/17 1142 Last Action: Reviewed on 11/30/1823 by ASHLEY ROWELL Simvastatin (Simvastatin) 20 Mg Tablet, 20 MG PO HS for FOR CHOLESTEROL, #30 Ref 0 (Reported) Entered as Reported by: David Alba on 12/21/171113 Last Action: Reviewed on 11/30/1823 by ASHLEY ROWELL Vit B Cmplx 3/Fa/Vit C/Biotin (Johanna-Celia Rx Tablet) 1 Each Tablet, 1 EACH PO DAILY, (Reported) Entered as Reported by: David Alba on 12/21/171113 Last Action: Reviewed on 11/30/1823 by ASHLEY ROWELL Scheduled PRN Albuterol Sulfate (Proair Respiclick) 90 Mcg Aer.pow.ba, 1-2 PUFF IH PRN Q6HRS PRN for SHORTNESS OF BREATH, (Reported) Entered as Reported by: ASHLEY ROWELL on 11/30/1823 Last Action: Converted on 11/30/181328 by NIAL CASTPRASANNA Calcium Carbonate (Tums) 200 Mg Tab.chew, 200 MG PO BID PRN for INDIGESTION, ( Reported) Entered as Reported by: ASHLEY ROWELL on 11/30/1823 Last Action: Continued on 11/30/18 1329 by SHALINI HOLT Miscellaneous Medications Insulin Aspart (Novolog) 100 Unit/1 Ml Vial, 100 UNIT SQ, (Reported) sliding scale Entered as Reported by: SUKH HERNÁNDEZ on 04/15/17 1604 Last Action: Reviewed on 11/30/184 by ACOSTA BROTHERS MD Dec 09, 2018 15:35
[2018-12-09 16:49] VITALS: BP 147/90
[2018-12-09 19:00] VITALS: BP 138/84
[2018-12-09] MEDS: SIMVASTATIN 20 MG TABLET PO SCH (21:09)
[2018-12-09] MEDS: INSULIN GLARGINE 300 UNITS/3 ML INSULN.PEN. SQ SCH (21:15)
[2018-12-09 23:00] VITALS: BP 156/96
[2018-12-10 03:00] VITALS: BP 154/94
[2018-12-10] MEDS: PANTOPRAZOLE 40 MG TABLET.DR. PO SCH (06:00)
--- NOTE | 2018-12-10 07:49 | PDOC ---
Infectious Disease Note Subjective Subjective feeling good ROS ROS no n/v/d/sob Vital Sign Vital Signs Vital Signs Date Time Temp Pulse Resp B/P (MAP) Pulse Ox O2 Delivery O2 Flow Rate FiO2 12/10/18 03:00 98.1 88 18 154/94 (114) 98 98.1 12/09/18 23:00 Room Air Physical Exam PHYSICAL EXAM GENERAL: Propped up in bed, resting quietly HEENT: Oral cavity,pharynx pink and moist. NECK: Supple. LUNGS: Clear to auscultation. HEART: S1 and S2. ABDOMEN: Mild distension. Dressed. PD in place -clean EXTREMITIES: No gross edema or cyanosis. SKIN: Warm without generalized rash. NEUROLOGIC: Arouses to name, responds appropriately Right-sided tunneled HD catheter out. no redness or drainage PIV ok Labs Lab Laboratory Tests Test 12/09/18 12:24 12/09/18 16:34 12/09/18 21:07 Glucose (Fingerstick) 234 mg/dL (70-99) 185 mg/dL (70-99) 287 mg/dL (70-99) Micro Objective Assessment Sepsis POA, 11/29 with MSSA bacteremia. ? line infection - clinically better. Repeat BC from 21 NGTD -s/p HDC removal, 12/05. Tip cx pending. Echo neg veg. Leukocytosis - up post procedure and steroids, 12/02. better Transaminitis ? sepsis - improving Fever - better PCN allergy - nausea. Has tolerated Zosyn without problem Constipation Acute diastolic CHF CKD on HD s/p HDC on 11/26 and removal on 12/05. Malfunctioning peritoneal catheter -s/p repositioning 12/02 Anemia. s/p iron and PRBCs Diabetes Plan Plan of Care Repeat Blood cults - 12/04 NGTD ECHO normal, no arrhythmia Continue cefazolin through HD 2 gm , 2 gm and 3 gm , for 4-6 wks Probiotics f/u with us in 2 wks d/w Dr Parks D/w RN GIRMA NESS MD Dec 10, 2018 07:49
[2018-12-10] MEDS: INSULIN LISPRO 300 UNITS/3 ML INSULN.PEN. SQ SCH ×2 (08:00→12:00)
[2018-12-10] MEDS: CARVEDILOL 12.5 MG TABLET. PO SCH (08:00)
[2018-12-10 08:01] LABS: HEMOGLOBIN 8.1 g/dL (13.0-17.5); RED BLOOD COUNT 2.95 x10^6/uL (4.30-5.70); RED CELL DISTRIBUTION WIDTH 18.5 % (11.5-14.5)
[2018-12-10 08:15] VITALS: BP 152/95
[2018-12-10 08:30] LABS: ALBUMIN 2.4 g/dL (3.4-5.0); CALCIUM 9.2 mg/dL (8.5-10.1); CREATININE 13.4 mg/dL (0.7-1.3); GFR 5.1; MAGNESIUM 2.8 mg/dL (1.8-2.4); POTASSIUM 4.7 mmol/L (3.5-5.1)
[2018-12-10] MEDS: cloNIDine HCL 0.2 MG TABLET PO SCH (09:00)
[2018-12-10] MEDS: POLYETHYLENE GLYCOL 3350 17 GM PACKET. PO SCH (09:00)
[2018-12-10] MEDS: SEVELAMER CARBONATE 800 MG TABLET. PO SCH ×2 (09:00→13:20)
[2018-12-10] MEDS: FLUTICASONE 50MCG/NASAL SPRAY 16GM BOTTLE. NS SCH (09:00)
[2018-12-10] MEDS ORDERED: IV NORMAL SALINE 1000ML BAG 1,000 ML IV PRN ×2 (09:44)
[2018-12-10] MEDS ORDERED: DIALYSIS PATIENT. MC PRN (09:45)
--- NOTE | 2018-12-10 11:34 | PDOC ---
G I PROGRESS NOTE Subjective Seen in dialysis. Did not awaken with exam. Objective Others; notes reviewed. No reports of any GI issues ongoing. Physical Exam Lungs clear. RRR Abdomen soft, not apparently tender. Review of Relevant I have reviewed the following items javy (where applicable) has been applied. Labs Laboratory Tests Test 12/08/18 11:59 12/08/18 16:50 12/08/18 16:51 12/08/18 20:52 Glucose (Fingerstick) 164 mg/dL (70-99) 183 mg/dL (70-99) 265 mg/dL (70-99) Hepatitis B Surface Antigen Nonreactive (Nonreactive) Hepatitis B Surface Antibody Reactive Hepatitis B Core Total Antibody Negative (Negative) Test 12/09/18 03:00 12/09/18 03:42 12/09/18 07:26 12/09/18 12:24 Sodium Level 137 mmol/L (136-145) Potassium Level 4.9 mmol/L (3.5-5.1) Chloride Level 99 mmol/L (98-107) Carbon Dioxide Level 29 mmol/L (21-32) Anion Gap 9 (6-14) Blood Urea Nitrogen 31 mg/dL (8-26) Creatinine 10.1 mg/dL (0.7-1.3) Estimated GFR (Cockcroft-Gault) 7.1 Glucose Level 211 mg/dL (70-99) Calcium Level 9.0 mg/dL (8.5-10.1) Phosphorus Level 5.4 mg/dL (2.6-4.7) Magnesium Level 2.4 mg/dL (1.8-2.4) Albumin 2.1 g/dL (3.4-5.0) Glucose (Fingerstick) 183 mg/dL (70-99) 94 mg/dL (70-99) 234 mg/dL (70-99) Test 12/09/18 16:34 12/09/18 21:07 12/10/18 06:00 12/10/18 08:05 Glucose (Fingerstick) 185 mg/dL (70-99) 287 mg/dL (70-99) 114 mg/dL (70-99) White Blood Count 15.0 x10^3/uL (4.0-11.0) Red Blood Count 2.95 x10^6/uL (4.30-5.70) Hemoglobin 8.1 g/dL (13.0-17.5) Hematocrit 25.0 % (39.0-53.0) Mean Corpuscular Volume 85 fL (79-100) Mean Corpuscular Hemoglobin 27 pg (25-35) Mean Corpuscular Hemoglobin Concent 32 g/dL (31-37) Red Cell Distribution Width 18.5 % (11.5-14.5) Platelet Count 524 x10^3/uL (140-400) Sodium Level 140 mmol/L (136-145) Potassium Level 4.7 mmol/L (3.5-5.1) Chloride Level 99 mmol/L (98-107) Carbon Dioxide Level 27 mmol/L (21-32) Anion Gap 14 (6-14) Blood Urea Nitrogen 44 mg/dL (8-26) Creatinine 13.4 mg/dL (0.7-1.3) Estimated GFR (Cockcroft-Gault) 5.1 Glucose Level 78 mg/dL (70-99) Calcium Level 9.2 mg/dL (8.5-10.1) Phosphorus Level 6.0 mg/dL (2.6-4.7) Magnesium Level 2.8 mg/dL (1.8-2.4) Albumin 2.4 g/dL (3.4-5.0) Laboratory Tests Test 12/09/18 12:24 12/09/18 16:34 12/09/18 21:07 12/10/18 06:00 Glucose (Fingerstick) 234 mg/dL (70-99) 185 mg/dL (70-99) 287 mg/dL (70-99) White Blood Count 15.0 x10^3/uL (4.0-11.0) Red Blood Count 2.95 x10^6/uL (4.30-5.70) Hemoglobin 8.1 g/dL (13.0-17.5) Hematocrit 25.0 % (39.0-53.0) Mean Corpuscular Volume 85 fL (79-100) Mean Corpuscular Hemoglobin 27 pg (25-35) Mean Corpuscular Hemoglobin Concent 32 g/dL (31-37) Red Cell Distribution Width 18.5 % (11.5-14.5) Platelet Count 524 x10^3/uL (140-400) Sodium Level 140 mmol/L (136-145) Potassium Level 4.7 mmol/L (3.5-5.1) Chloride Level 99 mmol/L (98-107) Carbon Dioxide Level 27 mmol/L (21-32) Anion Gap 14 (6-14) Blood Urea Nitrogen 44 mg/dL (8-26) Creatinine 13.4 mg/dL (0.7-1.3) Estimated GFR (Cockcroft-Gault) 5.1 Glucose Level 78 mg/dL (70-99) Calcium Level 9.2 mg/dL (8.5-10.1) Phosphorus Level 6.0 mg/dL (2.6-4.7) Magnesium Level 2.8 mg/dL (1.8-2.4) Albumin 2.4 g/dL (3.4-5.0) Test 12/10/18 08:05 Glucose (Fingerstick) 114 mg/dL (70-99) Microbiology 12/04/18 Blood Culture - Final, Complete NO GROWTH AFTER 5 DAYS 12/05/18 Aerobic Culture - Final, Complete 12/05/18 Aerobic Culture Result 1 (NOLAN) - Final, Complete 12/05/18 Gram Stain - Final, Complete 12/05/18 Gram Stain Result 1 (NOLAN) - Final, Complete 12/05/18 Gram Stain Result 2 (NOLAN) - Final, Complete Hep B testing c/w prior vaccine. Vitals/I & O Vital Sign - Last 24 Hours 12/09/18 12/09/18 12/09/18 12/09/18 16:49 17:52 19:00 19:15 Temp 97.9 97.9 Pulse 82 82 86 Resp 12 16 B/P (MAP) 147/90 (109) 147/90 138/84 (102) Pulse Ox 96 99 O2 Delivery Room Air Room Air Room Air 12/09/18 12/09/18 12/09/18 12/10/18 21:08 21:09 23:00 03:00 Temp 98.4 98.1 98.4 98.1 Pulse 86 86 93 88 Resp 16 18 B/P (MAP) 138/84 138/84 156/96 (116) 154/94 (114) Pulse Ox 96 98 O2 Delivery Room Air 12/10/18 12/10/18 12/10/18 07:00 08:00 08:15 Temp 98.2 98.2 Pulse 77 Resp 16 B/P (MAP) 152/95 (114) Pulse Ox 98 O2 Delivery Room Air Room Air Room Air Intake and Output 12/09/18 12/09/18 12/10/18 14:59 22:59 06:59 Intake Total 420 ml 640 ml 110 ml Output Total 0 ml Balance 420 ml 640 ml 110 ml Problem List Problems Medical Problems: (1) Abnormal EKG Status: Acute (2) Elevated troponin Status: Acute (3) End stage renal disease Status: Acute (4) Fever Status: Acute Assessment Stable from GI standpoint. Plan of Care Note Continue as now. ORQUIDEA MAR MD Dec 10, 2018 11:34
--- NOTE | 2018-12-10 11:58 | PDOC ---
Renal-Progress Notes Subjective Notes Notes SLEEPY History of Present Illness Hx of present illness BETTER Vitals Vitals Vital Signs Date Time Temp Pulse Resp B/P (MAP) Pulse Ox O2 Delivery O2 Flow Rate FiO2 12/10/18 08:15 98.2 77 16 152/95 (114) 98 Room Air 98.2 Weight Weight [ ] I.O. Intake and Output Intake and Output 12/10/18 07:00 Intake Total 1170 ml Output Total 0 ml Balance 1170 ml Intake Oral 1170 ml Output Urine Total 0 ml Labs Labs Laboratory Tests Test 12/09/18 12:24 12/09/18 16:34 12/09/18 21:07 12/10/18 06:00 Glucose (Fingerstick) 234 mg/dL (70-99) 185 mg/dL (70-99) 287 mg/dL (70-99) White Blood Count 15.0 x10^3/uL (4.0-11.0) Red Blood Count 2.95 x10^6/uL (4.30-5.70) Hemoglobin 8.1 g/dL (13.0-17.5) Hematocrit 25.0 % (39.0-53.0) Mean Corpuscular Volume 85 fL (79-100) Mean Corpuscular Hemoglobin 27 pg (25-35) Mean Corpuscular Hemoglobin Concent 32 g/dL (31-37) Red Cell Distribution Width 18.5 % (11.5-14.5) Platelet Count 524 x10^3/uL (140-400) Sodium Level 140 mmol/L (136-145) Potassium Level 4.7 mmol/L (3.5-5.1) Chloride Level 99 mmol/L (98-107) Carbon Dioxide Level 27 mmol/L (21-32) Anion Gap 14 (6-14) Blood Urea Nitrogen 44 mg/dL (8-26) Creatinine 13.4 mg/dL (0.7-1.3) Estimated GFR (Cockcroft-Gault) 5.1 Glucose Level 78 mg/dL (70-99) Calcium Level 9.2 mg/dL (8.5-10.1) Phosphorus Level 6.0 mg/dL (2.6-4.7) Magnesium Level 2.8 mg/dL (1.8-2.4) Albumin 2.4 g/dL (3.4-5.0) Test 12/10/18 08:05 Glucose (Fingerstick) 114 mg/dL (70-99) Micro Micro Microbiology 12/04/18 Blood Culture - Final, Complete NO GROWTH AFTER 5 DAYS 12/05/18 Aerobic Culture - Final, Complete 12/05/18 Aerobic Culture Result 1 (NOLAN) - Final, Complete 12/05/18 Gram Stain - Final, Complete 12/05/18 Gram Stain Result 1 (NOLAN) - Final, Complete 12/05/18 Gram Stain Result 2 (NOLAN) - Final, Complete Review of Systems Constitutional: yes: alert, oriented Ears/Nose/Throat: Yes: no symptom reported Eyes: Yes: no symptom reported Pulmonary: Yes no symptom reported Cardiovascular: Yes no symptom reported Gastrointestional: Yes: no symptom reported Genitourinary: Yes: no symptom reported Musculoskeletal: Yes: no symptom reported Skin: Yes no symptom reported Psychiatric/Neurological: Yes: no symptom reported Endocrine: Yes: no symptom reported Physical Exam General Appearance: no apparent distress Heart: S1S2 Abdomen: soft Genitourinary: bladder flat Extremities: pulses present Neurology: alert, oriented Assessment Assessment IMP ESRD SEPSIS BACTEREMIA S/P REMOVAL OF TDC LAST WEEK AND S/P NEW TDC YESTERDAY S/P PD CATHETER REPAIR AND REPOSITIONING 12-02 DM II HTN ACUTE DIASTOLIC CHF-BETTER PLAN HD TODAY UF TO DW CONT ANTIBIOTICS WILL RESUME PD OP IN COUPLE WEEKS ONCE IT GOES WELL WILL REMOVE DIALYSIS CATHETER OP UPDATED AT BEDSIDE ALSO D/W ID OP ANTIBIOTICS WILL BE GIVEN AT HD UNIT STARTING SATURDAY OK TO D/C AFTER HD TODAY D/W OP HD UNIT ARIANNE UMANA MD Dec 10, 2018 11:58
[2018-12-10 13:15] VITALS: BP 148/86
[2018-12-10] MEDS: FUROSEMIDE 80 MG TABLET. PO SCH ×2 (13:20→14:00)
[2018-12-10 14:30] VITALS: BP 152/95
[2018-12-10] MEDS: LISINOPRIL 20 MG TABLET PO SCH (14:30)
[2018-12-10] MEDS: CINACALCET HCL 30 MG TABLET PO SCH (14:30)
[2018-12-10] MEDS: LACTOBACILLUS RHAMNOSUS GG 1 CAPSULE. PO SCH (14:30)
[2018-12-10] MEDS: ceFAZolin SODIUM 1 GM in IV DEXTROSE 5% 50 ML IV SCH (14:30)
[2018-12-10] MEDS: amLODIPine BESYLATE 10 MG TABLET PO SCH (14:30)
[2018-12-10] MEDS: CHOLECALCIFEROL (VITAMIN D3) 5,000 UNIT CAPSULE PO SCH (14:30)
[2018-12-10] MEDS: DOCUSATE SODIUM 100 MG CAPSULE. PO SCH (14:30)
[2018-12-10] MEDS: FOLIC/VIT B COMP W-C (RENAL) TABLET. PO SCH (14:30)
[2018-12-10] MEDS: CALCITRIOL 0.25 MCG CAPSULE. PO SCH (14:30)
[2018-12-10] MEDS: SENNOSIDES 8.6 MG TABLET PO SCH (14:30)
--- NOTE | 2018-12-10 15:33 | NUR ---
Patient was in Dialysis this morning and alejandro Beckford RN held meds prior to dialysis. [employer] down upon patients return to the floor and meds had to be administered through system when it was available. Dillon requested 5units of Humalog instead of 4 units due to what he would take at home.
--- NOTE | 2018-12-10 16:43 | PDOC3 ---
Discharge Summary Visit Information Date of Admission: Nov 30, 2018 Date of Discharge: Dec 10, 2018 Admitting Diagnosis: Probable sepsis in a middle-aged male who has a foreign Final Diagnosis Sepsis POA. Procalcitonin 94.62. secondary to line infection -resolved Hypoglycemic event resolved GPC bacteremia (3 of 4 bottles) POA 11/29 with MSSA resolved Constipation resolved Acute diastolic CHF resolved CKD on HD Malfunctioning peritoneal catheter status post repositioning and hernia repair on 12/02/2018 Anemia. s/p iron and PRBCs 2 units evaluated by hematology and added Aranesp to his regimen Diabetes insulin requiring Brief Hospital Course Allergies Allergies Coded Allergies Type Severity Reaction Last Updated Verified Penicillins Adverse Reaction Mild Nausea 12/02/18 Yes Vital Signs Vital Signs Date Time Temp Pulse Resp B/P (MAP) Pulse Ox O2 Delivery O2 Flow Rate FiO2 12/10/18 15:30 Room Air 12/10/18 14:30 77 152/95 12/10/18 13:15 98.2 20 97 98.2 Lab Results Laboratory Tests Test 12/08/18 16:50 12/08/18 16:51 12/08/18 20:52 12/09/18 03:00 Hepatitis B Surface Antigen Nonreactive (Nonreactive) Hepatitis B Surface Antibody Reactive Hepatitis B Core Total Antibody Negative (Negative) Glucose (Fingerstick) 183 mg/dL (70-99) 265 mg/dL (70-99) Sodium Level 137 mmol/L (136-145) Potassium Level 4.9 mmol/L (3.5-5.1) Chloride Level 99 mmol/L (98-107) Carbon Dioxide Level 29 mmol/L (21-32) Anion Gap 9 (6-14) Blood Urea Nitrogen 31 mg/dL (8-26) Creatinine 10.1 mg/dL (0.7-1.3) Estimated GFR (Cockcroft-Gault) 7.1 Glucose Level 211 mg/dL (70-99) Calcium Level 9.0 mg/dL (8.5-10.1) Phosphorus Level 5.4 mg/dL (2.6-4.7) Magnesium Level 2.4 mg/dL (1.8-2.4) Albumin 2.1 g/dL (3.4-5.0) Test 12/09/18 03:42 12/09/18 07:26 2/26/19 12:24 12/09/18 16:34 Glucose (Fingerstick) 183 mg/dL (70-99) 94 mg/dL (70-99) 234 mg/dL (70-99) 185 mg/dL (70-99) Test 12/09/18 21:07 12/10/18 06:00 12/10/18 08:05 12/10/18 13:17 Glucose (Fingerstick) 287 mg/dL (70-99) 114 mg/dL (70-99) 159 mg/dL (70-99) White Blood Count 15.0 x10^3/uL (4.0-11.0) Red Blood Count 2.95 x10^6/uL (4.30-5.70) Hemoglobin 8.1 g/dL (13.0-17.5) Hematocrit 25.0 % (39.0-53.0) Mean Corpuscular Volume 85 fL (79-100) Mean Corpuscular Hemoglobin 27 pg (25-35) Mean Corpuscular Hemoglobin Concent 32 g/dL (31-37) Red Cell Distribution Width 18.5 % (11.5-14.5) Platelet Count 524 x10^3/uL (140-400) Sodium Level 140 mmol/L (136-145) Potassium Level 4.7 mmol/L (3.5-5.1) Chloride Level 99 mmol/L (98-107) Carbon Dioxide Level 27 mmol/L (21-32) Anion Gap 14 (6-14) Blood Urea Nitrogen 44 mg/dL (8-26) Creatinine 13.4 mg/dL (0.7-1.3) Estimated GFR (Cockcroft-Gault) 5.1 Glucose Level 78 mg/dL (70-99) Calcium Level 9.2 mg/dL (8.5-10.1) Phosphorus Level 6.0 mg/dL (2.6-4.7) Magnesium Level 2.8 mg/dL (1.8-2.4) Albumin 2.4 g/dL (3.4-5.0) Laboratory Tests Test 12/09/18 21:07 12/10/18 06:00 12/10/18 08:05 12/10/18 13:17 Glucose (Fingerstick) 287 mg/dL (70-99) 114 mg/dL (70-99) 159 mg/dL (70-99) White Blood Count 15.0 x10^3/uL (4.0-11.0) Red Blood Count 2.95 x10^6/uL (4.30-5.70) Hemoglobin 8.1 g/dL (13.0-17.5) Hematocrit 25.0 % (39.0-53.0) Mean Corpuscular Volume 85 fL (79-100) Mean Corpuscular Hemoglobin 27 pg (25-35) Mean Corpuscular Hemoglobin Concent 32 g/dL (31-37) Red Cell Distribution Width 18.5 % (11.5-14.5) Platelet Count 524 x10^3/uL (140-400) Sodium Level 140 mmol/L (136-145) Potassium Level 4.7 mmol/L (3.5-5.1) Chloride Level 99 mmol/L (98-107) Carbon Dioxide Level 27 mmol/L (21-32) Anion Gap 14 (6-14) Blood Urea Nitrogen 44 mg/dL (8-26) Creatinine 13.4 mg/dL (0.7-1.3) Estimated GFR (Cockcroft-Gault) 5.1 Glucose Level 78 mg/dL (70-99) Calcium Level 9.2 mg/dL (8.5-10.1) Phosphorus Level 6.0 mg/dL (2.6-4.7) Magnesium Level 2.8 mg/dL (1.8-2.4) Albumin 2.4 g/dL (3.4-5.0) Brief Hospital Course HISTORY OF PRESENT ILLNESS: The patient is a pleasant 38-year-old male who has been on dialysis for 6 years. He just got a new dialysis catheter on the right last Saturday. Over the past couple of days, he has developed some low-grade fevers, rates it at 9/10. He has associated anxiety. While in the ER, he was noted to have a temperature of 102.4. It appears he might be septic. Symptoms are worse with standing. He tried taking some home meds, but that did not work. He describes it as annoying. I have discussed the case with ER physician. We are going to admit the patient, give him some IV antibiotics and consult Infectious Disease and Nephrology. Mr. Allen De La Cruz had a very long hospital stay. Initially he was started on vancomycin and Zosyn for his questionable line infection. Gram-positive cocci were identified MSSA bacteremia was identified. Patient went further workup with echocardiogram performed on 12/04 2018 with the following results: The left ventricle is normal size. The left ventricular systolic function is normal and the ejection fraction is within normal range. The Ejection Fraction is 60-65%. There is mild concentric left ventricular hypertrophy. There is no significant aortic valvular stenosis. Doppler and Color Flow revealed no significant aortic regurgitation. Doppler and Color-flow revealed trace eccentric mitral regurgitation. Doppler and Color Flow revealed trace tricuspid regurgitation. The PA pressure was estimated at 24 mmHg. Signed by : Bryce Hough MD Electronically Approved : 12/04/2018 16:23:25 Underwent a open repositioning of the PD catheter and lysis of adhesions by Dr. Rodriguez on 12/02/2018. He tolerated the procedure well and continued to recover. Dialysis catheter for HD was discontinued and repeat blood cultures were drawn in order to document resolution of bacteremia. This past 12/08/2018 he had a new dialysis catheter placed long-term goals is for the patient to undergo pancreatic and renal transplant hopefully in the near future. The patient will continue with Ancef as per our infectious disease internet sales consultant yiama 4-6 weeks and this will be given in the outpatient setting at dialysis. He has a chair appointment for tomorrow afternoon and he is in good spirits to be dismissed home, his concerns were addressed to the best of my abilities General: Alert, Oriented X3, Cooperative, No acute distress Heart: Regular rate Lungs: Clear Abdomen: Soft, Other (dressing dry, cath in place) Extremities: No clubbing, No cyanosis Skin: No breakdown Discharge Information Condition at Discharge: Improved Follow Up: Weeks Disposition/Orders: D/C to Home Scheduled Amlodipine Besylate (Amlodipine Besylate) 10 Mg Tablet, 10 MG PO DAILY, ( Reported) Entered as Reported by: David Alba on 12/21/171113 Last Action: Reviewed on 11/30/1823 by ASHLEY ROWELL Calcitriol (Calcitriol) 0.25 Mcg Capsule, 2 CAP PO DAILY for low calcium, #30 Ref 5 (Reported) Entered as Reported by: David Alba on 12/21/171113 Last Action: Reviewed on 11/30/1823 by ASHLEY ROWELL Carvedilol (Carvedilol) 25 Mg Tablet, 25 MG PO BIDWMEALS for CARDIAC, (Reported) Entered as Reported by: HILARY MIX on 11/24/181241 Last Action: Reviewed on 11/30/1823 by ASHLEY ROWELL Cholecalciferol (Vitamin D3) (Vitamin D) 5,000 Unit Tablet, 5,000 UNIT PO DAILY, (Reported) Entered as Reported by: David Alba on 12/21/171113 Last Action: Reviewed on 11/30/1823 by ASHLEY ROWELL Cinacalcet Hcl (Sensipar) 60 Mg Tablet, 60 MG PO DAILY, (Reported) Entered as Reported by: David Alba on 12/21/171113 Last Action: Reviewed on 11/30/1823 by ASHLEY ROWELL Clonidine Hcl (Clonidine Hcl) 0.2 Mg Tablet, 1 TAB PO BID, #60 Ref 5 (Reported) Entered as Reported by: David Alba on 12/21/171113 Last Action: Reviewed on 11/30/1823 by ASHLEY ROWELL Docusate Sodium (Colace) 100 Mg Capsule, 1 CAP PO BID for constipation, #30 ( Reported) Entered as Reported by: HILARY MIX on 11/24/181248 Last Action: Reviewed on 11/30/1823 by ASHLEY ROWELL Epoetin David (Procrit) 10,000 Unit/1 Ml Vial, 10,000 UNIT IJ WEEKLY for anemia, (Reported) Entered as Reported by: ASHLEY ROWELL on 11/30/1823 Last Action: Converted on 11/30/181328 by NIAL CASTPRASANNA Fluticasone Propionate (Flonase Allergy Relief) 9.9 Ml [place].susp, 2 SPRAYS NS DAILY for allergies, (Reported) Entered as Reported by: ASHLEY ROWELL on 11/30/1823 Last Action: Converted on 11/30/181328 by NIAL CASTPRASANNA Furosemide (Furosemide) 80 Mg Tablet, 1 TAB PO BID, #180 Ref 3 (Reported) Entered as Reported by: David Alba on 12/21/171113 Last Action: Reviewed on 11/30/1823 by ASHLEY ROWELL Insulin Glargine,Hum.rec.anlog (Lantus Solostar) 100 Unit/1 Ml Insuln.pen, 15 UNIT SQ HS for hyperglycemia, (Reported) Entered as Reported by: SUKH HERNÁNDEZ on 04/15/17 1604 Last Action: Reviewed on 11/30/1823 by ASHLEY ROWELL Lisinopril (Lisinopril) 40 Mg Tablet, 1 TAB PO BID, #30 Ref 5 (Reported) Entered as Reported by: David Alba on 12/21/171113 Last Action: Reviewed on 11/30/1823 by ASHLEY ROWELL Pantoprazole Sodium (Protonix) 20 Mg Tablet.dr, 2 TAB PO DAILY for GERD, #30 ( Reported) Entered as Reported by: ASHLEY ROWELL on 11/30/1823 Last Action: Converted on 11/30/18 132 by NIAL CASTLE Polyethylene Glycol 3350 (Miralax) 17 Gm Powd.pack, 1 PACKET PO DAILY for constipation, #30 Ref 3 (Reported) Entered as Reported by: HILARY MIX on 11/24/181248 Last Action: Reviewed on 11/30/1823 by ASHLEY ROWELL Sennosides (Senna) 8.6 Mg Tablet, 8.6 MG PO BID for constipation, (Reported) Entered as Reported by: HILARY MIX on 11/24/181248 Last Action: Reviewed on 11/30/1823 by ASHLEY ROWELL Sevelamer Carbonate (Renvela) 800 Mg Tablet, 5 TAB PO TIDWMEALS, #810 Ref 3 ( Reported) Entered as Reported by: David Alba on 12/21/17 1142 Last Action: Reviewed on 11/30/1823 by ASHLEY ROWELL Simvastatin (Simvastatin) 20 Mg Tablet, 20 MG PO HS for FOR CHOLESTEROL, #30 Ref 0 (Reported) Entered as Reported by: David Alba on 12/21/171113 Last Action: Reviewed on 11/30/1823 by ASHLEY ROWELL Vit B Cmplx 3/Fa/Vit C/Biotin (Johanna-Celia Rx Tablet) 1 Each Tablet, 1 EACH PO DAILY, (Reported) Entered as Reported by: David Alba on 12/21/174 Last Action: Reviewed on 11/30/1823 by ASHLEY ROWELL Scheduled PRN Albuterol Sulfate (Proair Respiclick) 90 Mcg Aer.pow.ba, 1-2 PUFF IH PRN Q6HRS PRN for SHORTNESS OF BREATH, (Reported) Entered as Reported by: ASHLEY ROWELL on 11/30/1823 Last Action: Converted on 11/30/181328 by SHALINI HOLT Calcium Carbonate (Tums) 200 Mg Tab.chew, 200 MG PO BID PRN for INDIGESTION, ( Reported) Entered as Reported by: ASHLEY ROWELL on 11/30/1823 Last Action: Continued on 11/30/181328 by SHALINI HOLT Miscellaneous Medications Insulin Aspart (Novolog) 100 Unit/1 Ml Vial, 100 UNIT SQ, (Reported) sliding scale Entered as Reported by: SUKH HERNÁNDEZ on 04/15/174 Last Action: Reviewed on 11/30/1823 by ACOSTA BROTHERS MD Dec 10, 2018 16:43
--- NOTE | 2018-12-10 18:40 | NUR ---
RODRIGUEA GIVEN AT 1320 PER PT ONLY TOOK 4 OUT OF 5. [facility] AND DOWNTIME FORM FILLED OUT.
== END 2018-12-10 16:27 | disposition home or self-care (01) | DRG 907 ==
LOC: ER 17:17 → 5 NORTH 19:12 → 2 NORTH 19:54
PROVIDERS: ADMIT Internal Medicine; ATTEND Internal Medicine
PROC: 30233N1 Transfusion of Nonautologous Red Blood Cells into Peripheral Vein, Percutaneous Approach (ICD-10-PCS; principal; 2018-11-29)
PROC: 5A1D70Z Performance of Urinary Filtration, Intermittent, Less than 6 Hours Per Day (ICD-10-PCS; 2018-11-30)
PROC: 5A1D70Z Performance of Urinary Filtration, Intermittent, Less than 6 Hours Per Day (ICD-10-PCS; 2018-12-01)
PROC: 0DNU0ZZ Release Omentum, Open Approach (ICD-10-PCS; 2018-12-02)
PROC: 0DN80ZZ Release Small Intestine, Open Approach (ICD-10-PCS; 2018-12-02)
PROC: 06W Lower Veins, Revision (ICD-10-PCS; 2018-12-02)
PROC: 5A1D70Z Performance of Urinary Filtration, Intermittent, Less than 6 Hours Per Day (ICD-10-PCS; 2018-12-05)
PROC: 02PYX3Z Removal of Infusion Device from Great Vessel, External Approach (ICD-10-PCS; 2018-12-05)
PROC: 5A1D70Z Performance of Urinary Filtration, Intermittent, Less than 6 Hours Per Day (ICD-10-PCS; 2018-12-08)
PROC: 0JH63XZ Insertion of Tunneled Vascular Access Device into Chest Subcutaneous Tissue and Fascia, Percutaneous Approach (ICD-10-PCS; 2018-12-08)
PROC: 02H633Z Insertion of Infusion Device into Right Atrium, Percutaneous Approach (ICD-10-PCS; 2018-12-08)
PROC: B2141ZZ Fluoroscopy of Right Heart using Low Osmolar Contrast (ICD-10-PCS; 2018-12-08)
PROC: B244ZZZ Ultrasonography of Right Heart (ICD-10-PCS; 2018-12-08)
PROC: 5A1D70Z Performance of Urinary Filtration, Intermittent, Less than 6 Hours Per Day (ICD-10-PCS; 2018-12-10)
DX: T85.611A Breakdown (mechanical) of intraperitoneal dialysis catheter, initial encounter (principal); A41.01 Sepsis due to Methicillin susceptible Staphylococcus aureus; I50.31 Acute diastolic (congestive) heart failure; N18.6 End stage renal disease; E87.1 Hypo-osmolality and hyponatremia; I13.2 Hypertensive heart and chronic kidney disease with heart failure and with stage 5 chronic kidney disease, or end stage renal disease; K56.7 Ileus, unspecified; B96.89 Other specified bacterial agents as the cause of diseases classified elsewhere; D63.1 Anemia in chronic kidney disease; E78.5 Hyperlipidemia, unspecified; E87.5 Hyperkalemia; F12.90 Cannabis use, unspecified, uncomplicated; F41.9 Anxiety disorder, unspecified; G47.30 Sleep apnea, unspecified; K21.9 Gastro-esophageal reflux disease without esophagitis; E11.22 Type 2 diabetes mellitus with diabetic chronic kidney disease; K42.9 Umbilical hernia without obstruction or gangrene; K66.0 Peritoneal adhesions (postprocedural) (postinfection); K66.8 Other specified disorders of peritoneum; N50.811 Right testicular pain; E21.3 Hyperparathyroidism, unspecified; Y81.2 Prosthetic and other implants, materials and accessory general- and plastic-surgery devices associated with adverse incidents; Z53.31 Laparoscopic surgical procedure converted to open procedure; Z79.4 Long term (current) use of insulin; Z80.42 Family history of malignant neoplasm of prostate; Z80.8 Family history of malignant neoplasm of other organs or systems; Z82.49 Family history of ischemic heart disease and other diseases of the circulatory system; Z88.0 Allergy status to penicillin; Z83.3 Family history of diabetes mellitus; Z99.2 Dependence on renal dialysis; T82.7XXA Infection and inflammatory reaction due to other cardiac and vascular devices, implants and grafts, initial encounter
CPT/HCPCS: 36415; 36558; 36589; 71045; 74018; 76937; 77001; 80048; 80053; 80069; 80202; 82607; 82728; 82962; 83540; 83550; 83605; 83735; 83880; 84145; 84165; 84403; 84484; 85007; 85018; 85025; 85027; 85045; 85610; 86140; 86334; 86704; 86706; 86850; 86900; 86901; 86920; 87040; 87070; 87186; 87205; 87340; 87804; 93005; 93306; 96365; 96368; 96375; 99152; 99153; A4215; A7015; C1750; C1892; J0690; J0881; J1100; J1170; J1644; J1756; J1815; J1956; J2001; J2250; J2405; J2543; J2704; J2710; J2765; J3010; J3370; J3490; J7030; J7040; J7042; P9016; 99285-25

== ENCOUNTER 2018-12-14 03:29 | Emergency (ER) | payer MEDICARE ==
[~2018-12-14] VITALS: Ht 177.8 cm; Wt 84.4 kg
[~2018-12-14 03:29] MED LIST changes: +CALC200T3 PO; +EPOE10005 IJ; +FLUT9.9S NS; +PANT20TA2 PO; +PROAIR RESPICL90 MCG IH
[2018-12-14] MEDS ORDERED: IV NORMAL SALINE 500ML BAG 500 ML IV ONE (04:00)
--- NOTE | 2018-12-14 04:05 | PHYS DOC ---
Past Medical History Past Medical History: Diabetes-Type II, Hypertension Additional Past Medical Histor: HEMODIALYSIS SINCE 2013; Peritoneal dialysis Past Surgical History: Other Additional Past Surgical Histo: CARPAL TUNNEL Additional Information: Nonsmoker Alcohol Use: None Drug Use: None Adult General Chief Complaint Chief Complaint: ABDOMINAL PAIN HPI HPI 38-year-old male presents with report of lower abdominal pain with associated nausea and vomiting which started this evening. Patient reports he thinks it might be secondary to some tuna casserole which he ate this evening. Reports the abdominal pain is cramping in nature with radiation to his back. Denies fever or chills. Denies trauma. Patient does have history of recent abdominal surgery for hernia repair and replacement of peritoneal dialysis catheter. Patient denies any drainage from wound. Denies redness or swelling. Patient does report taking some Vicodin just prior to arrival without improvement of symptoms. Review of Systems Review of Systems Constitutional: Denies fever or chills [] Eyes: Denies change in visual acuity, redness, or eye pain [] HENT: Denies nasal congestion or sore throat [] Respiratory: Denies cough or shortness of breath [] Cardiovascular: Denies chest pain or palpitations GI: Reports abdominal pain, nausea, and vomiting; denies diarrhea [] : Denies dysuria or hematuria [] Musculoskeletal: Denies back pain or joint pain [] Integument: Denies rash or skin lesions [] Neurologic: Denies headache, focal weakness or sensory changes [] Complete systems were reviewed and found to be within normal limits, except as documented in this note. Current Medications Current Medications Current Medications Medications (Trade) Dose Ordered Sig/[facility] Start Time Stop Time Status Last Admin Dose Admin Famotidine (Pepcid Vial) 20 mg 1X ONCE 12/14/18 04:30 12/14/18 04:31 DC 12/14/18 04:20 20 MG Fentanyl Citrate (Fentanyl 2ml Vial) 75 mcg 1X ONCE 12/14/18 04:30 12/14/18 04:31 DC 12/14/18 04:21 75 MCG Hyoscyamine (Anaspaz) 0.25 mg 1X ONCE 12/14/18 04:30 12/14/18 04:31 DC 12/14/18 04:21 0.25 MG Morphine Sulfate (Morphine Sulfate) 4 mg STK-MED ONCE 12/14/18 05:06 12/14/18 05:08 DC Ondansetron HCl (Zofran) 4 mg 1X ONCE 12/14/18 04:30 12/14/18 04:31 DC 12/14/18 04:20 4 MG Sodium Chloride 500 ml @ 500 mls/hr 1X ONCE 12/14/18 04:00 12/14/18 04:59 DC 12/14/18 04:10 500 MLS/HR Allergies Allergies Allergies Coded Allergies Type Severity Reaction Last Updated Verified Penicillins Adverse Reaction Mild Nausea 12/14/18 Yes Physical Exam Physical Exam Constitutional: Well developed, well nourished, appears uncomfortable, non- toxic appearance. [] HENT: Normocephalic, atraumatic, oropharynx moist Eyes: Conjunctiva normal, no discharge. [] Neck: Normal range of motion, no tenderness Cardiovascular: Heart rate regular rhythm, no murmur [] Lungs & Thorax: Bilateral breath sounds clear to auscultation [] Abdomen: Soft, diffuse tenderness, healing midline incision intact with Steri- Strips, peritoneal dialysis catheter noted. Skin: Warm, dry, no erythema Extremities: No tenderness, ROM intact, no edema. [] Neurologic: Alert and oriented X 3, no focal deficits noted. [] Psychologic: Affect anxious, judgement normal Current Patient Data Vital Signs Vital Signs Date Time Temp Pulse Resp B/P (MAP) Pulse Ox O2 Delivery O2 Flow Rate FiO2 12/14/18 05:09 16 12/14/18 03:35 98.2 100 208/111 (143) 99 Room Air 98.2 Lab Values Laboratory Tests Test 12/14/18 03:44 White Blood Count 14.6 x10^3/uL (4.0-11.0) H Red Blood Count 2.59 x10^6/uL (4.30-5.70) L Hemoglobin 7.2 g/dL (13.0-17.5) L Hematocrit 21.9 % (39.0-53.0) L Mean Corpuscular Volume 84 fL (79-100) Mean Corpuscular Hemoglobin 28 pg (25-35) Mean Corpuscular Hemoglobin Concent 33 g/dL (31-37) Red Cell Distribution Width 18.3 % (11.5-14.5) H Platelet Count 532 x10^3/uL (140-400) H Neutrophils (%) (Auto) 79 % (31-73) H Lymphocytes (%) (Auto) 9 % (24-48) L Monocytes (%) (Auto) 8 % (0-9) Eosinophils (%) (Auto) 3 % (0-3) Basophils (%) (Auto) 1 % (0-3) Neutrophils # (Auto) 11.6 x10^3uL (1.8-7.7) H Lymphocytes # (Auto) 1.2 x10^3/uL (1.0-4.8) Monocytes # (Auto) 1.2 x10^3/uL (0.0-1.1) H Eosinophils # (Auto) 0.5 x10^3/uL (0.0-0.7) Basophils # (Auto) 0.1 x10^3/uL (0.0-0.2) Sodium Level 141 mmol/L (136-145) Potassium Level 4.2 mmol/L (3.5-5.1) Chloride Level 98 mmol/L (98-107) Carbon Dioxide Level 29 mmol/L (21-32) Anion Gap 14 (6-14) Blood Urea Nitrogen 53 mg/dL (8-26) H Creatinine 10.8 mg/dL (0.7-1.3) H Estimated GFR (Cockcroft-Gault) 6.5 BUN/Creatinine Ratio 5 (6-20) L Glucose Level 97 mg/dL (70-99) Calcium Level 9.4 mg/dL (8.5-10.1) Magnesium Level 2.3 mg/dL (1.8-2.4) Total Bilirubin 0.3 mg/dL (0.2-1.0) Aspartate Amino Transferase (AST) 20 U/L (15-37) Alanine Aminotransferase (ALT) 6 U/L (16-63) L Alkaline Phosphatase 135 U/L (46-116) H Total Protein 7.5 g/dL (6.4-8.2) Albumin 2.7 g/dL (3.4-5.0) L Albumin/Globulin Ratio 0.6 (1.0-1.7) L Lipase 545 U/L (73-393) H Laboratory Tests 12/14/18 03:44 Laboratory Tests 12/14/18 03:44 EKG EKG [] Radiology/Procedures Radiology/Procedures PROCEDURE: CT ABDOMEN PELVIS WO CONTRAST CT abdomen pelvis without contrast dated 12/14/2018. Comparison made to 01/10/2018. CLINICAL INDICATION: Abdominal pain. TECHNIQUE: Contiguous axial imaging of the abdomen and pelvis performed without the administration of IV or oral contrast. One or more of the following individualized dose reduction techniques were utilized for this examination: 1. Automated exposure control 2. Adjustment of the mA and/or kV according to patient size 3. Use of iterative reconstruction technique. FINDINGS: Limited images of lung bases show minimal linear opacity in the right lower lobe, likely scar or atelectasis. Heart size within normal limits. No pleural or pericardial effusion. Solid abdominal viscera not well evaluated in the absence of contrast material. No apparent attenuation abnormality of the liver or spleen. Pancreas, adrenal glands are unremarkable. Gallbladder unremarkable. Kidneys are small and heterogeneous throughout. There are low-density foci that likely represent cysts. No hydronephrosis. There is a dialysis catheter with tip coiled at the left lower quadrant. There is a small amount of ascites with scattered pneumoperitoneum. GI tract normal in caliber and contour. No apparent bowel wall thickening. They'll aorta normal in caliber. No lymphadenopathy. Images of pelvis show nondistended urinary bladder. No pelvic lymphadenopathy. Small amount of free fluid. Bone windows show no acute findings. IMPRESSION: 1. No acute abnormality of abdomen or pelvis. 2. Small amount of ascites and pneumoperitoneum with dialysis catheter in place. 3. Bilateral renal cysts. Electronically signed by: Orquidea Patton MD (12/14/2018 5:00 AM) [facility] Course & Med Decision Making Course & Med Decision Making Pertinent Labs and Imaging studies reviewed. (See chart for details) Patient presents with one-day history of lower abdominal pain which is cramping in nature with radiation to back and associated nausea and vomiting. Abdomen soft. No significant guarding or rebound tenderness noted. Patient does have history of recent hernia repair and replacement of peritoneal dialysis catheter. Patient is afebrile. Symptomatically treatment provided. Labs obtained and posted to chart. CT abdomen/pelvis without acute process. Pain addressed. Patient given multiple medications to control pain and nausea. Patient reports he initially "didn't get the high" like he normally gets with these medications. Patient advised goal was to help with pain not to give him a high. Symptoms might be secondary to food poisoning vs viral gastroenteritis. Patient tolerating ICE chips in department. Patient stable for discharge with outpatient follow-up with PCP/GI. GI referral provided. Rx given for continued medications for further discomfort. Percocet 5 /325mg x 8 tabs provided. KTRACs report obtained with findings of last nactotic Rx from 11/26/18 for Goodman 5/325mg x 10 tabs. Discussed findings and plan with patient, who acknowledges understanding and agreement. Dragon Disclaimer Dragon Disclaimer This electronic medical record was generated, in whole or in part, using a voice recognition dictation system. Departure Departure Impression: Primary Impression: Abdominal pain Disposition: HOME, SELF-CARE Condition: STABLE Referrals: UNKNOWN PCP NAME (PCP) HONG JASSO MD Patient Instructions: Abdominal Pain (Nonspecific) Scripts Oxycodone/Apap 5-325 (PERCOCET 5-325 MG TABLET ) 1 Each Tablet 1 TAB PO PRN Q6HRS PRN for PAIN, #8 TAB 0 Refills Prov: ORQUIDEA TENORIO DO 12/14/18 Hyoscyamine Sulfate (LEVSIN-SL) 0.125 Mg Tab.subl 1-2 TAB SL PRN Q4HRS PRN for PAIN, #20 TAB Prov: ORQUIDEA TENORIO DO 12/14/18 Ondansetron (ONDANSETRON ODT) 4 Mg Tab.rapdis 1 TAB PO PRN Q6-8HRS PRN for NAUSEA, #16 TAB Prov: ORQUIDEA TENORIO DO 12/14/18 Famotidine (PEPCID) 20 Mg Tablet 20 MG PO BID, #14 TAB Prov: ORQUIDEA TENORIO DO 12/14/18 Problem Qualifiers Primary Impression: Abdominal pain Abdominal location: lower abdomen, unspecified Qualified Codes: R10.30 - Lower abdominal pain, unspecified ORQUIDEA TENORIO DO Dec 14, 2018 04:04
[2018-12-14 04:07] LABS: BASO # 0.1 x10^3/uL (0.0-0.2); BASO % 1 % (0-3); EOS # 0.5 x10^3/uL (0.0-0.7); EOS % 3 % (0-3); HEMATOCRIT 21.9 % (39.0-53.0); HEMOGLOBIN 7.2 g/dL (13.0-17.5); LYMPH # 1.2 x10^3/uL (1.0-4.8); LYMPH % 9 % (24-48); MEAN CORPUSCULAR HEMOGLOBIN 28 pg (25-35); MEAN CORPUSCULAR HGB CONC 33 g/dL (31-37); MEAN CORPUSCULAR VOLUME 84 fL (79-100); MONO # 1.2 x10^3/uL (0.0-1.1); MONO % 8 % (0-9); NEUT # 11.6 x10^3uL (1.8-7.7); NEUT % 79 % (31-73); PLATELET COUNT 532 x10^3/uL (140-400); RED BLOOD COUNT 2.59 x10^6/uL (4.30-5.70); RED CELL DISTRIBUTION WIDTH 18.3 % (11.5-14.5); WHITE BLOOD COUNT 14.6 x10^3/uL (4.0-11.0)
[2018-12-14 04:16] LABS: CALCIUM 9.4 mg/dL (8.5-10.1); CREATININE 10.8 mg/dL (0.7-1.3); GFR 6.5; POTASSIUM 4.2 mmol/L (3.5-5.1)
[2018-12-14 04:23] LABS: ALBUMIN 2.7 g/dL (3.4-5.0); ALBUMIN/GLOBULIN RATIO 0.6 (1.0-1.7); MAGNESIUM 2.3 mg/dL (1.8-2.4); TOTAL BILIRUBIN 0.3 mg/dL (0.2-1.0); TOTAL PROTEIN 7.5 g/dL (6.4-8.2)
[2018-12-14] MEDS ORDERED: HYOSCYAMINE 0.125 MG TAB.RAPDIS PO ONE (04:30)
[2018-12-14] MEDS ORDERED: ONDANSETRON PF 4 MG/2 ML VIAL. IV ONE (04:30)
[2018-12-14] MEDS ORDERED: FAMOTIDINE 20 MG/2 ML VIAL IVP ONE (04:30)
[2018-12-14] MEDS ORDERED: fentaNYL PF VIAL 100 MCG/2 ML VIAL IV ONE (04:30)
--- NOTE | 2018-12-14 05:03 | RAD ---
CT abdomen pelvis without contrast dated 12/14/2018. Comparison made to 01/10/2018. CLINICAL INDICATION: Abdominal pain. TECHNIQUE: Contiguous axial imaging of the abdomen and pelvis performed without the administration of IV or oral contrast. One or more of the following individualized dose reduction techniques were utilized for this examination: 1. Automated exposure control 2. Adjustment of the mA and/or kV according to patient size 3. Use of iterative reconstruction technique. FINDINGS: Limited images of lung bases show minimal linear opacity in the right lower lobe, likely scar or atelectasis. Heart size within normal limits. No pleural or pericardial effusion. Solid abdominal viscera not well evaluated in the absence of contrast material. No apparent attenuation abnormality of the liver or spleen. Pancreas, adrenal glands are unremarkable. Gallbladder unremarkable. Kidneys are small and heterogeneous throughout. There are low-density foci that likely represent cysts. No hydronephrosis. There is a dialysis catheter with tip coiled at the left lower quadrant. There is a small amount of ascites with scattered pneumoperitoneum. GI tract normal in caliber and contour. No apparent bowel wall thickening. They'll aorta normal in caliber. No lymphadenopathy. Images of pelvis show nondistended urinary bladder. No pelvic lymphadenopathy. Small amount of free fluid. Bone windows show no acute findings. IMPRESSION: 1. No acute abnormality of abdomen or pelvis. 2. Small amount of ascites and pneumoperitoneum with dialysis catheter in place. 3. Bilateral renal cysts. Electronically signed by: Sabas Patton MD (12/14/2018 5:00 AM) [facility]
[2018-12-14] MEDS ORDERED: MORPHINE SULFATE 4 MG/ML VIAL. ONE (05:06)
[2018-12-14] MEDS ORDERED: ONDA4TAB12 PO (05:07)
[2018-12-14] MEDS ORDERED: FAMO-63 PO (05:07)
[2018-12-14] MEDS ORDERED: HYOS0.1265 SL (05:09)
[2018-12-14] MEDS ORDERED: OXYC1TAB15 PO (05:09)
[2018-12-14 05:20] VITALS: BP 200/91
[2018-12-14] MEDS ORDERED: MORPHINE SULFATE 4 MG/ML VIAL. IV ONE (05:30)
== END 2018-12-14 05:26 | disposition home or self-care (01) ==
LOC: ER 03:29
DX: R10.84 Generalized abdominal pain (principal); R11.2 Nausea with vomiting, unspecified; I10 Essential (primary) hypertension; E11.9 Type 2 diabetes mellitus without complications; Z99.2 Dependence on renal dialysis
CPT/HCPCS: J2270; J2405; J3010; J3490; J7040; 36415; 74176; 80053; 83690; 83735; 85025; 96361; 96374; 96375; 99284-25

== ENCOUNTER 2018-12-15 19:42 | Inpatient (IN) | payer MEDICARE, OTHER ==
[~2018-12-15] VITALS: Ht 177.8 cm; Wt 89.9 kg
[~2018-12-15 19:42] MED LIST changes: +FAMO-63 PO; +HYOS0.1265 SL; +ONDA4TAB12 PO; +OXYC1TAB15 PO
[2018-12-15 20:48] LABS: BASO # 0.1 x10^3/uL (0.0-0.2); BASO % 1 % (0-3); EOS # 0.3 x10^3/uL (0.0-0.7); EOS % 2 % (0-3); HEMATOCRIT 22.4 % (39.0-53.0); HEMOGLOBIN 7.3 g/dL (13.0-17.5); LYMPH % 9 % (24-48); MEAN CORPUSCULAR HEMOGLOBIN 28 pg (25-35); MEAN CORPUSCULAR HGB CONC 33 g/dL (31-37); MEAN CORPUSCULAR VOLUME 84 fL (79-100); MONO # 0.8 x10^3/uL (0.0-1.1); MONO % 8 % (0-9); NEUT % 81 % (31-73); PLATELET COUNT 505 x10^3/uL (140-400); RED BLOOD COUNT 2.65 x10^6/uL (4.30-5.70); RED CELL DISTRIBUTION WIDTH 18.1 % (11.5-14.5); WHITE BLOOD COUNT 11.1 x10^3/uL (4.0-11.0)
[2018-12-15 20:57] LABS: ANION GAP 15 (6-14); BLOOD UREA NITROGEN 60 mg/dL (8-26); BUN/CREATININE RATIO 4 (6-20); CARBON DIOXIDE 27 mmol/L (21-32); CHLORIDE 97 mmol/L (98-107); CREATININE 14.9 mg/dL (0.7-1.3); GFR 4.5; GLUCOSE 179 mg/dL (70-99); POTASSIUM 4.7 mmol/L (3.5-5.1); SODIUM 139 mmol/L (136-145)
[2018-12-15 21:03] LABS: ALBUMIN 2.6 g/dL (3.4-5.0); ALBUMIN/GLOBULIN RATIO 0.6 (1.0-1.7); ALK PHOS 130 U/L (46-116); AST (SGOT) 14 U/L (15-37); TOTAL BILIRUBIN 0.3 mg/dL (0.2-1.0); TOTAL PROTEIN 7.2 g/dL (6.4-8.2)
[2018-12-15 21:14] LABS: ALT (SGPT) < 6 U/L (16-63)
[2018-12-15] MEDS ORDERED: ONDANSETRON PF 4 MG/2 ML VIAL. IV ONE (21:30)
--- NOTE | 2018-12-15 21:55 | RAD ---
ACUTE ABDOMEN SERIES History: Nausea for 3 days, previous abdominal surgery, abdominal pain Comparison: December 14, 2018 CT exam abdomen pelvis and 11/29/2018 chest radiograph Findings: Single view of the chest and single supine and upright views of the abdomen are submitted. There is again dual lumen right internal jugular dialysis type catheter tip in region of right atrium. Cardiac silhouette is somewhat prominent although stable. There is no dependent pleural fluid or pneumothorax. There is some perihilar airspace opacity bilaterally somewhat increased on the right, no peripheral lobar consolidation. No free air is identified. No significant air-fluid levels are identified. There is again catheter in the pelvis. There is nonspecific paucity of gas in the bowel. Impression: 1. There is nonspecific paucity of gas in the bowel, limits accurate evaluation for bowel dilatation. 2. There is some perihilar opacity likely due to central edema although decreased on the right compared with previous exam. Electronically signed by: Pedrito Elias MD (12/15/2018 9:52 PM) [facility]
[2018-12-15] MEDS ORDERED: fentaNYL PF VIAL 100 MCG/2 ML VIAL IV ONE (22:00)
[2018-12-15] MEDS ORDERED: ONDANSETRON PF 4 MG/2 ML VIAL. IV PRN (23:30)
[2018-12-15 23:54] VITALS: BP 171/99
[2018-12-16] VITALS (12 sets, daily range): BP systolic 136–160; BP diastolic 74–98
[2018-12-16] MEDS: fentaNYL PF VIAL 100 MCG/2 ML VIAL IV PRN ×2 (00:26→01:59)
[2018-12-16] MEDS ORDERED: oxyCODONE/APAP 5/325 1 TAB TABLET PO PRN (00:45)
[2018-12-16] MEDS ORDERED: CALCIUM CARBONATE 500 MG TAB.CHEW PO PRN (00:45)
[2018-12-16] MEDS ORDERED: levOFLOXacin PER PHARMACY. MC PRN (01:00)
[2018-12-16] MEDS: cloNIDine HCL 0.2 MG TABLET PO SCH ×3 (01:19→21:39)
[2018-12-16] MEDS: LISINOPRIL 20 MG TABLET PO SCH ×3 (01:19→21:39)
[2018-12-16] MEDS: SIMVASTATIN 20 MG TABLET PO SCH ×2 (01:19→21:00)
[2018-12-16] MEDS: DOCUSATE SODIUM 100 MG CAPSULE. PO SCH ×3 (01:19→21:40)
[2018-12-16] MEDS: SENNOSIDES 8.6 MG TABLET PO SCH ×3 (01:19→21:40)
[2018-12-16] MEDS: FAMOTIDINE 20 MG TABLET. PO SCH ×2 (01:20→21:39)
[2018-12-16] MEDS: FUROSEMIDE 80 MG TABLET. PO SCH ×3 (01:30→16:26)
[2018-12-16] MEDS: INSULIN GLARGINE 300 UNITS/3 ML INSULN.PEN. SQ SCH ×2 (01:35→21:50)
[2018-12-16 04:43] LABS: BASO # 0.1 x10^3/uL (0.0-0.2); BASO % 1 % (0-3); EOS # 0.3 x10^3/uL (0.0-0.7); EOS % 4 % (0-3); LYMPH % 12 % (24-48); MEAN CORPUSCULAR HEMOGLOBIN 28 pg (25-35); MEAN CORPUSCULAR HGB CONC 33 g/dL (31-37); MEAN CORPUSCULAR VOLUME 85 fL (79-100); MONO # 0.6 x10^3/uL (0.0-1.1); MONO % 7 % (0-9); NEUT # 6.6 x10^3uL (1.8-7.7); NEUT % 76 % (31-73); PLATELET COUNT 449 x10^3/uL (140-400); RED BLOOD COUNT 2.35 x10^6/uL (4.30-5.70); RED CELL DISTRIBUTION WIDTH 18.5 % (11.5-14.5); WHITE BLOOD COUNT 8.7 x10^3/uL (4.0-11.0)
[2018-12-16 04:58] LABS: CALCIUM 8.8 mg/dL (8.5-10.1); CREATININE 15.7 mg/dL (0.7-1.3); GFR 4.2; POTASSIUM 4.7 mmol/L (3.5-5.1)
[2018-12-16 05:10] LABS: HEMATOCRIT 19.9 % (39.0-53.0); HEMOGLOBIN 6.6 g/dL (13.0-17.5)
[2018-12-16] MEDS: FLUTICASONE 50MCG/NASAL SPRAY 16GM BOTTLE. NS SCH (08:07)
[2018-12-16] MEDS: SEVELAMER CARBONATE 800 MG TABLET. PO SCH ×3 (08:08→16:29)
[2018-12-16] MEDS: CALCITRIOL 0.25 MCG CAPSULE. PO SCH (08:09)
[2018-12-16] MEDS: CINACALCET HCL 30 MG TABLET PO SCH (08:09)
[2018-12-16] MEDS: CHOLECALCIFEROL (VITAMIN D3) 5,000 UNIT CAPSULE PO SCH (08:09)
[2018-12-16] MEDS: FOLIC/VIT B COMP W-C (RENAL) TABLET. PO SCH (08:09)
[2018-12-16] MEDS: CARVEDILOL 12.5 MG TABLET. PO SCH ×2 (08:10→16:26)
[2018-12-16] MEDS: amLODIPine BESYLATE 10 MG TABLET PO SCH (08:10)
[2018-12-16] MEDS: POLYETHYLENE GLYCOL 3350 17 GM PACKET. PO SCH (08:12)
[2018-12-16] MEDS: PANTOPRAZOLE 40 MG TABLET.DR. PO SCH (08:12)
[2018-12-16] MEDS ORDERED: PEG 3350/NA SULF,BICARB,CL/KCL 4,000 ML SOLUTION. PO ONE (09:00)
[2018-12-16] MEDS ORDERED: IV NORMAL SALINE 1000ML BAG 1,000 ML IV PRN ×2 (09:30)
--- NOTE | 2018-12-16 09:48 | PDOC1 ---
History and Physical Date of Admission Date of Admission December 16, 2018 Identification/Chief Complaint Chief Complaint My stomach hurts Problems: (1) Abdominal pain (2) Anemia Source Source: Chart review, Patient History of Present Illness History of Present Illness The patient is a 38-year-old male who has been recently admitted to our institution for a catheter-related bloodstream infection. He was dismissed on after a very prolonged hospital stay, her in the hospital stay a new dialysis catheter that was placed approximately one week prior to that last admission had to be exchange again due to catheter-related bloodstream infection. Patient was found to have an MSSA bacteremia in he had a full workup with echocardiogram performed on 12/04 2018. For details please refer to the medical record. The patient went home and unfortunately over the weekend he started developing some abdominal discomfort. Patient describes discomfort as a sensation of fullness he denies dietary transgressions he does refer associated nausea with the abdominal discomfort that he rates at a 7-8 out of 10 in intensity associated with food intake which makes his nausea and discomfort worse. His last bowel movement was on Saturday which she refers as a normal bowel movement. He denied straining he denied blood in the stools either. Unfortunately the patient also refers some weakness over the course of the weekend and when he came to the emergency department yesterday for evaluation he was found to be anemic. He denies bleeding but going back to his records has had anemia in the past. He takes iron supplementations and iron as has been added to his regimen During his last hospital stay he also had an open repositioning of the PD catheter and lysis of adhesions by Dr. Rodriguez on 12/02/2018. He tolerated the procedure well and continued to recover. The patient refers passing gases and he does not have evidence of abdominal obstruction on imaging studies and the fact that he is passing gases is reassuring. We have been asked to admit patient for treatment of his abdominal discomfort and anemia. Past Medical History Cardiovascular: HTN Heme/Onc: Anemia NOS Renal/: Chronic renal failure Endocrine: Diabetes, Hyperparathyroidism Past Surgical History Past Surgical History: Hernia Repair, Other Family History Family History: No Significant Social History ALCOHOL: none Drugs: None Current Problem List Problem List Problems Medical Problems: (1) ESRD needing dialysis Status: Acute Current Medications Current Medications Current Medications Medications (Trade) Dose Ordered Sig/Afua Start Time Stop Time Status Last Admin Dose Admin Amlodipine Besylate (Norvasc) 10 mg DAILY 12/16/18 09:00 12/16/18 08:10 10 MG Calcitriol (Rocaltrol) 0.5 mcg DAILY 12/16/18 09:00 12/16/18 08:09 0.5 MCG Calcium Carbonate/ Glycine (Tums) 500 mg PRN BID PRN 12/16/18 00:45 Carvedilol (Coreg) 25 mg BIDWMEALS 12/16/18 08:00 12/16/18 08:10 25 MG Cinacalcet (Sensipar) 60 mg DAILY 12/16/18 09:00 12/16/18 08:09 60 MG Clonidine HCl (Catapres) 0.2 mg BID 12/16/18 01:00 12/16/18 08:11 0.2 MG Darbepoetin David (Aranesp) 60 mcg WEEKLYHS 12/21/18 21:00 Docusate Sodium (Colace) 100 mg BID 12/16/18 01:00 12/16/18 08:11 100 MG Famotidine (Pepcid) 20 mg QHS 12/16/18 01:30 12/16/18 01:20 20 MG Fentanyl Citrate (Fentanyl 2ml Vial) 50 mcg PRN Q1HR PRN 12/15/18 23:30 12/16/18 23:29 12/16/18 01:59 50 MCG Fluticasone Propionate (Flonase) 2 spray DAILY 12/16/18 09:00 12/16/18 08:07 2 SPRAY Furosemide (Lasix) 80 mg [id number] 12/16/18 01:30 12/16/18 08:10 80 MG Insulin Glargine (Lantus) 20 units HS 12/16/18 01:30 12/16/18 01:35 20 UNITS Levofloxacin/ Dextrose 100 ml @ 100 mls/hr Q48H 12/17/18 23:00 Levofloxacin/ Dextrose (Levaquin Per Pharmacy) 1 each PRN DAILY PRN 12/16/18 01:00 Lisinopril (Prinivil) 40 mg BID 12/16/18 01:30 12/16/18 08:11 40 MG Ondansetron HCl (Zofran) 4 mg PRN Q8HRS PRN 12/15/18 23:30 12/16/18 23:29 12/16/18 08:19 4 MG Oxycodone/ Acetaminophen (Percocet 5/325) 1 tab PRN Q6HRS PRN 12/16/18 00:45 Pantoprazole Sodium (Protonix) 40 mg DAILYAC 12/16/18 07:30 12/16/18 08:12 40 MG Polyethylene Glycol (miraLAX PACKET) 17 gm DAILY 12/16/18 09:00 12/16/18 08:12 17 GM Sennosides (Senna) 8.6 mg BID 12/16/18 01:30 12/16/18 08:11 8.6 MG Sevelamer Carbonate (Renvela) 4,000 mg TIDWMEALS 12/16/18 08:00 12/16/18 08:08 4,000 MG Simvastatin (Zocor) 20 mg HS 12/16/18 01:30 12/16/18 01:19 20 MG Sodium Cl/Sod Bicarb/Potass Cl/ PEG (Golytely) 4,000 ml 1X ONCE 12/16/18 09:00 12/16/18 09:01 DC Vitamin B Complex/ Vitamin C (Johanna-Celia) 1 tab DAILY 12/16/18 09:00 12/16/18 08:09 1 TAB Vitamin D (Vitamin D3) 5,000 unit DAILY 12/16/18 09:00 12/16/18 08:09 5,000 UNIT Allergies Allergies Allergies Coded Allergies Type Severity Reaction Last Updated Verified Penicillins Adverse Reaction Mild Nausea 12/14/18 Yes ROS Review of System CONSTITUTIONAL: No fever or chills EYES: No recent changes SKIN: No rash or itching CARDIOVASCULAR: No chest pain, syncope, palpitations, or edema RESPIRATORY: No SOB or cough GASTROINTESTINAL: + nausea, no vomiting +abdominal pain NEUROLOGICAL: No headaches or weakness ENDOCRINE: No cold or heat intolerance GENITOURINARY: No urgency or frequency of urination MUSCULOSKELETAL: No back pain or joint pain LYMPHATICS: No enlarged lymph nodes PSYCHIATRIC: No anxiety or depression Physical Exam Physical Exam GEN.: Mild distress. Alert and oriented. HEENT: Head is normocephalic, atraumatic NECK: Supple. LUNGS: Clear to auscultation. HEART: RRR, S1, S2 present. Peripheral pulses intact ABDOMEN: Soft, nontender. Positive bowel sounds. EXTREMITIES: Without any cyanosis. NEUROLOGIC: Normal speech, normal tone PSYCHIATRIC: Normal affect, normal mood. SKIN: No ulcerations Vitals Vitals Vital Signs Date Time Temp Pulse Resp B/P (MAP) Pulse Ox O2 Delivery O2 Flow Rate FiO2 12/16/18 08:11 83 159/97 12/16/18 07:57 95 12/16/18 07:00 99.5 18 Room Air 99.5 Labs Labs Laboratory Tests Test 12/15/18 20:40 12/16/18 00:59 12/16/18 03:15 12/16/18 07:10 White Blood Count 11.1 x10^3/uL (4.0-11.0) 8.7 x10^3/uL (4.0-11.0) Red Blood Count 2.65 x10^6/uL (4.30-5.70) 2.35 x10^6/uL (4.30-5.70) Hemoglobin 7.3 g/dL (13.0-17.5) 6.6 g/dL (13.0-17.5) Hematocrit 22.4 % (39.0-53.0) 19.9 % (39.0-53.0) Mean Corpuscular Volume 84 fL (79-100) 85 fL (79-100) Mean Corpuscular Hemoglobin 28 pg (25-35) 28 pg (25-35) Mean Corpuscular Hemoglobin Concent 33 g/dL (31-37) 33 g/dL (31-37) Red Cell Distribution Width 18.1 % (11.5-14.5) 18.5 % (11.5-14.5) Platelet Count 505 x10^3/uL (140-400) 449 x10^3/uL (140-400) Neutrophils (%) (Auto) 81 % (31-73) 76 % (31-73) Lymphocytes (%) (Auto) 9 % (24-48) 12 % (24-48) Monocytes (%) (Auto) 8 % (0-9) 7 % (0-9) Eosinophils (%) (Auto) 2 % (0-3) 4 % (0-3) Basophils (%) (Auto) 1 % (0-3) 1 % (0-3) Neutrophils # (Auto) 9.0 x10^3uL (1.8-7.7) 6.6 x10^3uL (1.8-7.7) Lymphocytes # (Auto) 1.0 x10^3/uL (1.0-4.8) 1.0 x10^3/uL (1.0-4.8) Monocytes # (Auto) 0.8 x10^3/uL (0.0-1.1) 0.6 x10^3/uL (0.0-1.1) Eosinophils # (Auto) 0.3 x10^3/uL (0.0-0.7) 0.3 x10^3/uL (0.0-0.7) Basophils # (Auto) 0.1 x10^3/uL (0.0-0.2) 0.1 x10^3/uL (0.0-0.2) Sodium Level 139 mmol/L (136-145) 138 mmol/L (136-145) Potassium Level 4.7 mmol/L (3.5-5.1) 4.7 mmol/L (3.5-5.1) Chloride Level 97 mmol/L (98-107) 98 mmol/L (98-107) Carbon Dioxide Level 27 mmol/L (21-32) 27 mmol/L (21-32) Anion Gap 15 (6-14) 13 (6-14) Blood Urea Nitrogen 60 mg/dL (8-26) 62 mg/dL (8-26) Creatinine 14.9 mg/dL (0.7-1.3) 15.7 mg/dL (0.7-1.3) Estimated GFR (Cockcroft-Gault) 4.5 4.2 BUN/Creatinine Ratio 4 (6-20) Glucose Level 179 mg/dL (70-99) 195 mg/dL (70-99) Calcium Level 9.0 mg/dL (8.5-10.1) 8.8 mg/dL (8.5-10.1) Total Bilirubin 0.3 mg/dL (0.2-1.0) Aspartate Amino Transf (AST/SGOT) 14 U/L (15-37) Alanine Aminotransferase (ALT/SGPT) < 6 U/L (16-63) Alkaline Phosphatase 130 U/L (46-116) Total Protein 7.2 g/dL (6.4-8.2) Albumin 2.6 g/dL (3.4-5.0) Albumin/Globulin Ratio 0.6 (1.0-1.7) Glucose (Fingerstick) 250 mg/dL (70-99) 106 mg/dL (70-99) Laboratory Tests Test 12/15/18 20:40 12/16/18 00:59 12/16/18 03:15 12/16/18 07:10 White Blood Count 11.1 x10^3/uL (4.0-11.0) 8.7 x10^3/uL (4.0-11.0) Red Blood Count 2.65 x10^6/uL (4.30-5.70) 2.35 x10^6/uL (4.30-5.70) Hemoglobin 7.3 g/dL (13.0-17.5) 6.6 g/dL (13.0-17.5) Hematocrit 22.4 % (39.0-53.0) 19.9 % (39.0-53.0) Mean Corpuscular Volume 84 fL (79-100) 85 fL (79-100) Mean Corpuscular Hemoglobin 28 pg (25-35) 28 pg (25-35) Mean Corpuscular Hemoglobin Concent 33 g/dL (31-37) 33 g/dL (31-37) Red Cell Distribution Width 18.1 % (11.5-14.5) 18.5 % (11.5-14.5) Platelet Count 505 x10^3/uL (140-400) 449 x10^3/uL (140-400) Neutrophils (%) (Auto) 81 % (31-73) 76 % (31-73) Lymphocytes (%) (Auto) 9 % (24-48) 12 % (24-48) Monocytes (%) (Auto) 8 % (0-9) 7 % (0-9) Eosinophils (%) (Auto) 2 % (0-3) 4 % (0-3) Basophils (%) (Auto) 1 % (0-3) 1 % (0-3) Neutrophils # (Auto) 9.0 x10^3uL (1.8-7.7) 6.6 x10^3uL (1.8-7.7) Lymphocytes # (Auto) 1.0 x10^3/uL (1.0-4.8) 1.0 x10^3/uL (1.0-4.8) Monocytes # (Auto) 0.8 x10^3/uL (0.0-1.1) 0.6 x10^3/uL (0.0-1.1) Eosinophils # (Auto) 0.3 x10^3/uL (0.0-0.7) 0.3 x10^3/uL (0.0-0.7) Basophils # (Auto) 0.1 x10^3/uL (0.0-0.2) 0.1 x10^3/uL (0.0-0.2) Sodium Level 139 mmol/L (136-145) 138 mmol/L (136-145) Potassium Level 4.7 mmol/L (3.5-5.1) 4.7 mmol/L (3.5-5.1) Chloride Level 97 mmol/L (98-107) 98 mmol/L (98-107) Carbon Dioxide Level 27 mmol/L (21-32) 27 mmol/L (21-32) Anion Gap 15 (6-14) 13 (6-14) Blood Urea Nitrogen 60 mg/dL (8-26) 62 mg/dL (8-26) Creatinine 14.9 mg/dL (0.7-1.3) 15.7 mg/dL (0.7-1.3) Estimated GFR (Cockcroft-Gault) 4.5 4.2 BUN/Creatinine Ratio 4 (6-20) Glucose Level 179 mg/dL (70-99) 195 mg/dL (70-99) Calcium Level 9.0 mg/dL (8.5-10.1) 8.8 mg/dL (8.5-10.1) Total Bilirubin 0.3 mg/dL (0.2-1.0) Aspartate Amino Transf (AST/SGOT) 14 U/L (15-37) Alanine Aminotransferase (ALT/SGPT) < 6 U/L (16-63) Alkaline Phosphatase 130 U/L (46-116) Total Protein 7.2 g/dL (6.4-8.2) Albumin 2.6 g/dL (3.4-5.0) Albumin/Globulin Ratio 0.6 (1.0-1.7) Glucose (Fingerstick) 250 mg/dL (70-99) 106 mg/dL (70-99) Images Images Signed PATIENT: WILFRED STEVENS ACCOUNT: [id number] : 1980 LOCATION: ER AGE: 38 SEX: M EXAM STATUS: REG ER ORD. PHYSICIAN: YVONNE ROWE APRN REASON: abdominal pain, recent surgery PROCEDURE: ACUTE ABDOMEN SERIES ACUTE ABDOMEN SERIES History: Nausea for 3 days, previous abdominal surgery, abdominal pain Comparison: December 14, 2018 CT exam abdomen pelvis and 11/29/2018 chest radiograph Findings: Single view of the chest and single supine and upright views of the abdomen are submitted. There is again dual lumen right internal jugular dialysis type catheter tip in region of right atrium. Cardiac silhouette is somewhat prominent although stable. There is no dependent pleural fluid or pneumothorax. There is some perihilar airspace opacity bilaterally somewhat increased on the right, no peripheral lobar consolidation. No free air is identified. No significant air-fluid levels are identified. There is again catheter in the pelvis. There is nonspecific paucity of gas in the bowel. Impression: 1. There is nonspecific paucity of gas in the bowel, limits accurate evaluation for bowel dilatation. 2. There is some perihilar opacity likely due to central edema although decreased on the right compared with previous exam. Electronically signed by: Edmundo Perez MD (12/15/2018 9:52 PM) [facility] DICTATED and SIGNED BY: EDMUNDO PEREZ MD DATE: 12/15/18 2148 VTE Prophylaxis Ordered VTE Prophylaxis Devices: No VTE Pharmacological Prophylaxi: Yes Assessment/Plan Assessment/Plan Abdominal pain most likely secondary to constipation Anemia of chronic disease, currently worse with symptoms History of catheter related bloodstream infection with MSSA Dyspnea and weakness secondary to the anemia End-stage renal disease currently on hemodialysis and preparing to start peritoneal dialysis History of diabetes mellitus type 1 Plan: Transfuse patient Resume home medications Will give GoLYTELY for constipation Resume home medications Continue with antibiotics Ancef 2 g on Saturday and Saturday and 3 mg on Saturday We'll consult ID and nephrology Further recommendations will be based on the clinical course DVT prophylaxis with heparin FARELA,JESSIKA MD Dec 16, 2018 09:48
--- NOTE | 2018-12-16 10:41 | NUR ---
SW following pt for anticipated dc needs. Chart reviewed. Pt lives at home with family and on room air. No SW/DC needs indicated at this time. Will continue to evaluate needs.
[2018-12-16] MEDS ORDERED: DIALYSIS PATIENT. MC PRN ×2 (10:45)
--- NOTE | 2018-12-16 10:56 | PDOC2 ---
CONSULT Date of Consult Date of Consult DATE: 12/16/18 TIME: 10:44 Reason for Consult Reason for Consult: ESRD on HD Source Source: Chart review, Patient History of Present Illness Reason for Visit: The patient is a 38-year-old AAM ESRD- currently on HD , he was recently admitted at [facility] for a catheter-related bloodstream infection. He was dced on after a very prolonged hospital stay He has been on PD but was switched to HD at due to PD cath issues. During his recent hospitalization PD cath was repositioned and had hernia repaired by Dr. Rodriguez on 12/02/2018. He also had TDC replaced . Patient was found to have an MSSA bacteremia in he had a full workup with echocardiogram performed on 12/04 2018. Pt states he started having abdominal discomfort over the weekend , sensation of fullness with associated nausea . He came to ED Saturday at 2am and was dced home on meds with no improvement in symptoms He missed HD yesterday as was not feeling good Currently he states he is feeling somewhat better- since he passed gas and burped Past Medical History Cardiovascular: HTN Heme/Onc: Anemia NOS Renal/: Chronic renal failure Endocrine: Diabetes, Hyperparathyroidism Past Surgical History Past Surgical History: Hernia Repair, Other Family History Family History: No Significant Social History ALCOHOL: none Drugs: None Lives: with Family Current Problem List Problem List Problems Medical Problems: (1) ESRD needing dialysis Status: Acute Current Medications Current Medications Current Medications Ondansetron HCl (Zofran) 4 mg 1X ONCE IV Last administered on 12/15/18at 21:42; Start 12/15/18 at 21:30; Stop 12/15/18 at 21:31; Status DC Fentanyl Citrate (Fentanyl 2ml Vial) 50 mcg 1X ONCE IV Last administered on 12/15/18at 21:41; Start 12/15/18 at 22:00; Stop 12/15/18 at 22:01; Status DC Ondansetron HCl (Zofran) 4 mg PRN Q8HRS PRN IV NAUSEA/VOMITING 1ST CHOICE Last administered on 12/16/18at 08:19; Start 12/15/18 at 23:30; Stop 12/16/18 at 23:29 Fentanyl Citrate (Fentanyl 2ml Vial) 50 mcg PRN Q1HR PRN IV SEVERE PAIN Last administered on 12/16/18at 01:59; Start 12/15/18 at 23:30; Stop 12/16/18 at 23:29 Amlodipine Besylate (Norvasc) 10 mg DAILY PO Last administered on 12/16/18 08: 10; Start 12/16/18 at 09:00 Calcium Carbonate/ Glycine (Tums) 500 mg PRN BID PRN PO INDIGESTION; Start 12/16 at 00:45 Clonidine HCl (Catapres) 0.2 mg BID PO Last administered on 12/16/18 08:11; Start 12/16/18 at 01:00 Docusate Sodium (Colace) 100 mg BID PO Last administered on 12/16/18 08:11; Start 12/16/18 at 01:00 Famotidine (Pepcid) 20 mg QHS PO Last administered on 12/16/18 01:20; Start 12/16/18 at 01:30 Furosemide (Lasix) 80 mg BID94 PO Last administered on 12/16/18 08:10; Start at 01:30 Insulin Glargine (Lantus) 20 units HS SQ Last administered on 12/16/18 01:35; Start 12/16/18 at 01:30 Lisinopril (Prinivil) 40 mg BID PO Last administered on 12/16/18 08:11; Start 12/16/18 at 01:30 Oxycodone/ Acetaminophen (Percocet 5/325) 1 tab PRN Q6HRS PRN PO SEVERE PAIN; Start 12/16/18 at 00:45 Sevelamer Carbonate (Renvela) 4,000 mg TIDWMEALS PO Last administered on 08:08; Start 12/16/18 at 08:00 Calcitriol (Rocaltrol) 0.5 mcg DAILY PO Last administered on 12/16/18 08:09; Start 12/16/18 at 09:00 Carvedilol (Coreg) 25 mg BIDWMEALS PO Last administered on 12/16/18 08:10; Start 12/16/18 at 08:00 Vitamin D (Vitamin D3) 5,000 unit DAILY PO Last administered on 12/16/18 08:09 ; Start 12/16/18 at 09:00 Cinacalcet (Sensipar) 60 mg DAILY PO Last administered on 12/16/18at 08:09; Start 12/16/18 at 09:00 Darbepoetin David (Aranesp) 60 mcg WEEKLYHS SQ ; Start 12/21/18 at 21:00 Fluticasone Propionate (Flonase) 2 spray DAILY NS Last administered on at 08:07; Start 12/16/18 at 09:00 Pantoprazole Sodium (Protonix) 40 mg DAILYAC PO Last administered on 12/16/18at 08:12; Start 12/16/18 at 07:30 Polyethylene Glycol (miraLAX PACKET) 17 gm DAILY PO Last administered on at 08:12; Start 12/16/18 at 09:00 Sennosides (Senna) 8.6 mg BID PO Last administered on 12/16/18at 08:11; Start 12/16/18 at 01:30 Simvastatin (Zocor) 20 mg HS PO Last administered on 12/16/18at 01:19; Start 12/16 at 01:30 Vitamin B Complex/ Vitamin C (Johanna-Celia) 1 tab DAILY PO Last administered on 12/16/18at 08:09; Start 12/16/18 at 09:00 Levofloxacin/ Dextrose (Levaquin Per Pharmacy) 1 each PRN DAILY PRN MC SEE COMMENTS; Start 12/16/18 at 01:00 Levofloxacin/ Dextrose 100 ml @ 100 mls/hr 1X ONCE IV Last administered on 12/16/18at 01:55; Start 12/16/18 at 01:30; Stop 12/16/18 at 02:29; Status DC Levofloxacin/ Dextrose 100 ml @ 100 mls/hr Q48H IV ; Start 12/17/18 at 23:00; Stop 12/17/18 at 23:00; Status DC Sodium Cl/Sod Bicarb/Potass Cl/ PEG (Golytely) 4,000 ml 1X ONCE PO ; Start 12/16 at 09:00; Stop 12/16/18 at 09:01; Status DC Cefazolin Sodium 2 gm/Dextrose 50 ml @ 100 mls/hr MoWe IV ; Start 12/17/18 at 17 :00 Cefazolin Sodium 3 gm/Dextrose 100 ml @ 200 mls/hr Fr IV ; Start 12/19/18 at 17: 00 Active Scripts Active Percocet 5-325 Mg Tablet (Oxycodone/Acetaminophen) 1 Each Tablet 1 Tab PO PRN Q6HRS PRN Levsin-Sl (Hyoscyamine Sulfate) 0.125 Mg Tab.subl 1-2 Tab SL PRN Q4HRS PRN Ondansetron Odt (Ondansetron) 4 Mg Tab.rapdis 1 Tab PO PRN Q6-8HRS PRN Pepcid (Famotidine) 20 Mg Tablet 20 Mg PO BID Reported Protonix (Pantoprazole Sodium) 20 Mg Tablet.dr 2 Tab PO DAILY Flonase Allergy Relief (Fluticasone Propionate) 9.9 Ml [place].susp 2 Sprays NS DAILY Procrit (Epoetin David) 10,000 Unit/1 Ml Vial 10,000 Unit IJ QSU Tums (Calcium Carbonate) 200 Mg Tab.chew 200 Mg PO BID PRN Proair Respiclick (Albuterol Sulfate) 90 Mcg Aer.pow.ba 1-2 Puff IH PRN Q6HRS PRN Senna (Sennosides) 8.6 Mg Tablet 8.6 Mg PO BID Miralax (Polyethylene Glycol 3350) 17 Gm Powd.pack 1 Packet PO DAILY Colace (Docusate Sodium) 100 Mg Capsule 1 Cap PO BID Carvedilol 25 Mg Tablet 25 Mg PO BIDWMEALS Renvela (Sevelamer Carbonate) 800 Mg Tablet 5 Tab PO TIDWMEALS Furosemide 80 Mg Tablet 1 Tab PO BID Vitamin D (Cholecalciferol (Vitamin D3)) 5,000 Unit Tablet 5,000 Unit PO DAILY Calcitriol 0.25 Mcg Capsule 2 Cap PO DAILY Clonidine Hcl 0.2 Mg Tablet 1 Tab PO BID Johanna-Celia Rx Tablet (Vit B Cmplx 3/Fa/Vit C/Biotin) 1 Each Tablet 1 Each PO DAILY Sensipar (Cinacalcet Hcl) 60 Mg Tablet 60 Mg PO DAILY Amlodipine Besylate 10 Mg Tablet 10 Mg PO DAILY Simvastatin 20 Mg Tablet 20 Mg PO HS Lisinopril 40 Mg Tablet 1 Tab PO BID Novolog (Insulin Aspart) 100 Unit/1 Ml Vial 100 Unit SQ sliding scale Lantus Solostar (Insulin Glargine,Hum.rec.anlog) 100 Unit/1 Ml Insuln.pen 20 Unit SQ HS Allergies Allergies: Coded Allergies: Penicillins (Verified Adverse Reaction, Mild, Nausea, 12/14/18) ROS Review of System As per HPI Physical Exam Physical Exam GEN.: NAD HEENT: OM moist NECK: Supple. LUNGS: Clear to auscultation. HEART: RRR, S1, S2 present. 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 to put him back on his schedule Has PD catheter as well - GS following, Not ready to use Abdominal pain most likely secondary to constipation Anemia - currently worse with symptoms PRBC ordered by primary History of catheter related bloodstream infection with MSSA History of diabetes mellitus type 1 Labs Labs Laboratory Tests Test 12/15/18 20:40 12/16/18 00:59 12/16/18 03:15 12/16/18 07:10 White Blood Count 11.1 x10^3/uL (4.0-11.0) 8.7 x10^3/uL (4.0-11.0) Red Blood Count 2.65 x10^6/uL (4.30-5.70) 2.35 x10^6/uL (4.30-5.70) Hemoglobin 7.3 g/dL (13.0-17.5) 6.6 g/dL (13.0-17.5) Hematocrit 22.4 % (39.0-53.0) 19.9 % (39.0-53.0) Mean Corpuscular Volume 84 fL (79-100) 85 fL (79-100) Mean Corpuscular Hemoglobin 28 pg (25-35) 28 pg (25-35) Mean Corpuscular Hemoglobin Concent 33 g/dL (31-37) 33 g/dL (31-37) Red Cell Distribution Width 18.1 % (11.5-14.5) 18.5 % (11.5-14.5) Platelet Count 505 x10^3/uL (140-400) 449 x10^3/uL (140-400) Neutrophils (%) (Auto) 81 % (31-73) 76 % (31-73) Lymphocytes (%) (Auto) 9 % (24-48) 12 % (24-48) Monocytes (%) (Auto) 8 % (0-9) 7 % (0-9) Eosinophils (%) (Auto) 2 % (0-3) 4 % (0-3) Basophils (%) (Auto) 1 % (0-3) 1 % (0-3) Neutrophils # (Auto) 9.0 x10^3uL (1.8-7.7) 6.6 x10^3uL (1.8-7.7) Lymphocytes # (Auto) 1.0 x10^3/uL (1.0-4.8) 1.0 x10^3/uL (1.0-4.8) Monocytes # (Auto) 0.8 x10^3/uL (0.0-1.1) 0.6 x10^3/uL (0.0-1.1) Eosinophils # (Auto) 0.3 x10^3/uL (0.0-0.7) 0.3 x10^3/uL (0.0-0.7) Basophils # (Auto) 0.1 x10^3/uL (0.0-0.2) 0.1 x10^3/uL (0.0-0.2) Sodium Level 139 mmol/L (136-145) 138 mmol/L (136-145) Potassium Level 4.7 mmol/L (3.5-5.1) 4.7 mmol/L (3.5-5.1) Chloride Level 97 mmol/L (98-107) 98 mmol/L (98-107) Carbon Dioxide Level 27 mmol/L (21-32) 27 mmol/L (21-32) Anion Gap 15 (6-14) 13 (6-14) Blood Urea Nitrogen 60 mg/dL (8-26) 62 mg/dL (8-26) Creatinine 14.9 mg/dL (0.7-1.3) 15.7 mg/dL (0.7-1.3) Estimated GFR (Cockcroft-Gault) 4.5 4.2 BUN/Creatinine Ratio 4 (6-20) Glucose Level 179 mg/dL (70-99) 195 mg/dL (70-99) Calcium Level 9.0 mg/dL (8.5-10.1) 8.8 mg/dL (8.5-10.1) Total Bilirubin 0.3 mg/dL (0.2-1.0) Aspartate Amino Transf (AST/SGOT) 14 U/L (15-37) Alanine Aminotransferase (ALT/SGPT) < 6 U/L (16-63) Alkaline Phosphatase 130 U/L (46-116) Total Protein 7.2 g/dL (6.4-8.2) Albumin 2.6 g/dL (3.4-5.0) Albumin/Globulin Ratio 0.6 (1.0-1.7) Glucose (Fingerstick) 250 mg/dL (70-99) 106 mg/dL (70-99) Laboratory Tests Test 12/15/18 20:40 12/16/18 00:59 12/16/18 03:15 12/16/18 07:10 White Blood Count 11.1 x10^3/uL (4.0-11.0) 8.7 x10^3/uL (4.0-11.0) Red Blood Count 2.65 x10^6/uL (4.30-5.70) 2.35 x10^6/uL (4.30-5.70) Hemoglobin 7.3 g/dL (13.0-17.5) 6.6 g/dL (13.0-17.5) Hematocrit 22.4 % (39.0-53.0) 19.9 % (39.0-53.0) Mean Corpuscular Volume 84 fL (79-100) 85 fL (79-100) Mean Corpuscular Hemoglobin 28 pg (25-35) 28 pg (25-35) Mean Corpuscular Hemoglobin Concent 33 g/dL (31-37) 33 g/dL (31-37) Red Cell Distribution Width 18.1 % (11.5-14.5) 18.5 % (11.5-14.5) Platelet Count 505 x10^3/uL (140-400) 449 x10^3/uL (140-400) Neutrophils (%) (Auto) 81 % (31-73) 76 % (31-73) Lymphocytes (%) (Auto) 9 % (24-48) 12 % (24-48) Monocytes (%) (Auto) 8 % (0-9) 7 % (0-9) Eosinophils (%) (Auto) 2 % (0-3) 4 % (0-3) Basophils (%) (Auto) 1 % (0-3) 1 % (0-3) Neutrophils # (Auto) 9.0 x10^3uL (1.8-7.7) 6.6 x10^3uL (1.8-7.7) Lymphocytes # (Auto) 1.0 x10^3/uL (1.0-4.8) 1.0 x10^3/uL (1.0-4.8) Monocytes # (Auto) 0.8 x10^3/uL (0.0-1.1) 0.6 x10^3/uL (0.0-1.1) Eosinophils # (Auto) 0.3 x10^3/uL (0.0-0.7) 0.3 x10^3/uL (0.0-0.7) Basophils # (Auto) 0.1 x10^3/uL (0.0-0.2) 0.1 x10^3/uL (0.0-0.2) Sodium Level 139 mmol/L (136-145) 138 mmol/L (136-145) Potassium Level 4.7 mmol/L (3.5-5.1) 4.7 mmol/L (3.5-5.1) Chloride Level 97 mmol/L (98-107) 98 mmol/L (98-107) Carbon Dioxide Level 27 mmol/L (21-32) 27 mmol/L (21-32) Anion Gap 15 (6-14) 13 (6-14) Blood Urea Nitrogen 60 mg/dL (8-26) 62 mg/dL (8-26) Creatinine 14.9 mg/dL (0.7-1.3) 15.7 mg/dL (0.7-1.3) Estimated GFR (Cockcroft-Gault) 4.5 4.2 BUN/Creatinine Ratio 4 (6-20) Glucose Level 179 mg/dL (70-99) 195 mg/dL (70-99) Calcium Level 9.0 mg/dL (8.5-10.1) 8.8 mg/dL (8.5-10.1) Total Bilirubin 0.3 mg/dL (0.2-1.0) Aspartate Amino Transf (AST/SGOT) 14 U/L (15-37) Alanine Aminotransferase (ALT/SGPT) < 6 U/L (16-63) Alkaline Phosphatase 130 U/L (46-116) Total Protein 7.2 g/dL (6.4-8.2) Albumin 2.6 g/dL (3.4-5.0) Albumin/Globulin Ratio 0.6 (1.0-1.7) Glucose (Fingerstick) 250 mg/dL (70-99) 106 mg/dL (70-99) Review All relevant outside records, renal labs, imaging studies, telemetry/EKG's were reviewed. Images Images ACUTE ABDOMEN SERIES History: Nausea for 3 days, previous abdominal surgery, abdominal pain Comparison: December 14, 2018 CT exam abdomen pelvis and 11/29/2018 chest radiograph Findings: Single view of the chest and single supine and upright views of the abdomen are submitted. There is again dual lumen right internal jugular dialysis type catheter tip in region of right atrium. Cardiac silhouette is somewhat prominent although stable. There is no dependent pleural fluid or pneumothorax. There is some perihilar airspace opacity bilaterally somewhat increased on the right, no peripheral lobar consolidation. No free air is identified. No significant air-fluid levels are identified. There is again catheter in the pelvis. There is nonspecific paucity of gas in the bowel. Impression: 1. There is nonspecific paucity of gas in the bowel, limits accurate evaluation for bowel dilatation. 2. There is some perihilar opacity likely due to central edema although decreased on the right compared with previous exam. AYANNA PEREZ MD Dec 16, 2018 10:56
--- NOTE | 2018-12-16 11:16 | PDOC2 ---
IM Consult Reason for consult CRBSI Referring physician DR Nieves Date of Admission DATE: 12/16/18 TIME: 11:10 Chief Complaint Chief Complaint 38 yo old male well known to our team from recent hosp at [facility] got readmitted with chief complaints of .abdominal pain which started last weekend with some nausea, ,anemia s/p PRBCs Pt was just recently dc from [facility] on 12/10/2018 for MSSA bacteremia on cefazolin renal dosing postdialysis see our initial consultation last hosp 11/30/2018 see our last note from 12/09 for full details TDC removal on Dec 05 2018, Repeat BC neg from Dec 04 2018 During his last hospitalization PD cath was repositioned and he underwent hernia repair by Dr. Rodriguez on 12/02/2018. Pt is seen in dialysis unit says is feeling a little better now nausea has resolved no diarrhea no f/c/headache/sore throat Past Medical History PMH ESRD DM HTN MSSA bacteremia Cardiovascular: HTN (HTN), RI (Anemia), Syncope Heme/Onc: Anemia NOS Renal/: Chronic renal failure Endocrine: Diabetes, Hyperparathyroidism Past Surgical History Past Surgical History: Hernia Repair, Other Past Family History Family History: No Significant Review of Symptoms Review of Symptoms as above in HPI otherwise neg Medications Current Medications Amlodipine Besylate (Norvasc) 10 mg DAILY PO Last administered on 12/16/18at 08: 10; Start 12/16/18 at 09:00 Calcitriol (Rocaltrol) 0.5 mcg DAILY PO Last administered on 12/16/18at 08:09; Start 12/16/18 at 09:00 Calcium Carbonate/ Glycine (Tums) 500 mg PRN BID PRN PO INDIGESTION; Start 12/16 at 00:45 Carvedilol (Coreg) 25 mg BIDWMEALS PO Last administered on 12/16/18at 08:10; Start 12/16/18 at 08:00 Cefazolin Sodium 2 gm/Dextrose 50 ml @ 100 mls/hr MoWe IV ; Start 12/17/18 at 17 :00 Cefazolin Sodium 3 gm/Dextrose 100 ml @ 200 mls/hr Fr IV ; Start 12/19/18 at 17: 00 Cinacalcet (Sensipar) 60 mg DAILY PO Last administered on 12/16/18at 08:09; Start 12/16/18 at 09:00 Clonidine HCl (Catapres) 0.2 mg BID PO Last administered on 12/16/18 08:11; Start 12/16/18 at 01:00 Darbepoetin David (Aranesp) 60 mcg WEEKLYHS SQ ; Start 12/21/18 at 21:00 Docusate Sodium (Colace) 100 mg BID PO Last administered on 12/16/18 08:11; Start 12/16/18 at 01:00 Famotidine (Pepcid) 20 mg QHS PO Last administered on 12/16/18 01:20; Start 12/16/18 at 01:30 Fentanyl Citrate (Fentanyl 2ml Vial) 50 mcg 1X ONCE IV Last administered on 21:41; Start 12/15/18 at 22:00; Stop 12/15/18 at 22:01; Status DC Fentanyl Citrate (Fentanyl 2ml Vial) 50 mcg PRN Q1HR PRN IV SEVERE PAIN Last administered on 12/16/18 01:59; Start 12/15/18 at 23:30; Stop 12/16/18 at 23:29 Fluticasone Propionate (Flonase) 2 spray DAILY NS Last administered on 08:07; Start 12/16/18 at 09:00 Furosemide (Lasix) 80 mg BID94 PO Last administered on 12/16/18 08:10; Start at 01:30 Info (PHARMACY MONITORING -- do not chart) 1 each PRN DAILY PRN MC SEE COMMENTS ; Start 12/16/18 at 10:45 Info (PHARMACY MONITORING -- do not chart) 1 each PRN DAILY PRN MC SEE COMMENTS ; Start 12/16/18 at 10:45; Status UNV Insulin Glargine (Lantus) 20 units HS SQ Last administered on 12/16/18 01:35; Start 12/16/18 at 01:30 Levofloxacin/ Dextrose 100 ml @ 100 mls/hr 1X ONCE IV Last administered on 01:55; Start 12/16/18 at 01:30; Stop 12/16/18 at 02:29; Status DC Levofloxacin/ Dextrose 100 ml @ 100 mls/hr Q48H IV ; Start 12/17/18 at 23:00; Stop 12/17/18 at 23:00; Status DC Levofloxacin/ Dextrose (Levaquin Per Pharmacy) 1 each PRN DAILY PRN MC SEE COMMENTS; Start 12/16/18 at 01:00 Lisinopril (Prinivil) 40 mg BID PO Last administered on 12/16/18 08:11; Start 12/16/18 at 01:30 Ondansetron HCl (Zofran) 4 mg 1X ONCE IV Last administered on 12/15/18at 21:42; Start 12/15/18 at 21:30; Stop 12/15/18 at 21:31; Status DC Ondansetron HCl (Zofran) 4 mg PRN Q8HRS PRN IV NAUSEA/VOMITING 1ST CHOICE Last administered on 12/16/18 08:19; Start 12/15/18 at 23:30; Stop 12/16/18 at 23:29 Oxycodone/ Acetaminophen (Percocet 5/325) 1 tab PRN Q6HRS PRN PO SEVERE PAIN; Start 12/16/18 at 00:45 Pantoprazole Sodium (Protonix) 40 mg DAILYAC PO Last administered on 12/16/18at 08:12; Start 12/16/18 at 07:30 Polyethylene Glycol (miraLAX PACKET) 17 gm DAILY PO Last administered on 08:12; Start 12/16/18 at 09:00 Sennosides (Senna) 8.6 mg BID PO Last administered on 12/16/18 08:11; Start 12/16/18 at 01:30 Sevelamer Carbonate (Renvela) 4,000 mg TIDWMEALS PO Last administered on at 08:08; Start 12/16/18 at 08:00 Simvastatin (Zocor) 20 mg HS PO Last administered on 12/16/18 01:19; Start 12/16 at 01:30 Sodium Chloride 1,000 ml @ 400 mls/hr Q2H30M PRN IV PATENCY; Start 12/16/18 at 09:30; Stop 12/16/18 at 21:29 Sodium Chloride 1,000 ml @ 1,000 mls/hr Q1H PRN IV hypotension; Start 12/16/18 at 09:30; Stop 12/16/18 at 15:29 Sodium Cl/Sod Bicarb/Potass Cl/ PEG (Golytely) 4,000 ml 1X ONCE PO ; Start 12/16 at 09:00; Stop 12/16/18 at 09:01; Status DC Vitamin B Complex/ Vitamin C (Johanna-Celia) 1 tab DAILY PO Last administered on 12/16/18at 08:09; Start 12/16/18 at 09:00 Vitamin D (Vitamin D3) 5,000 unit DAILY PO Last administered on 12/16/18at 08:09 ; Start 12/16/18 at 09:00 Allergy Allergies Coded Allergies Type Severity Reaction Last Updated Verified Penicillins Adverse Reaction Mild Nausea 12/14/18 Yes Physical Exam Physical Exam GENERAL: pt is sleepy but arousable, HEENT: Oral cavity,pharynx pink and moist.no conjunc petechia NECK: Supple. LUNGS: Clear to auscultation. HEART: S1 and S2. ABDOMEN: Mild distension. Dressed. PD in place -clean EXTREMITIES: No gross edema or cyanosis. SKIN: Warm without generalized rash. NEUROLOGIC: Arouses to name, responds appropriately Right-sided tunneled HD catheter out. no redness or drainage Labs Laboratory Tests Test 12/15/18 20:40 12/16/18 00:59 12/16/18 03:15 12/16/18 07:10 White Blood Count 11.1 x10^3/uL (4.0-11.0) 8.7 x10^3/uL (4.0-11.0) Red Blood Count 2.65 x10^6/uL (4.30-5.70) 2.35 x10^6/uL (4.30-5.70) Hemoglobin 7.3 g/dL (13.0-17.5) 6.6 g/dL (13.0-17.5) Hematocrit 22.4 % (39.0-53.0) 19.9 % (39.0-53.0) Mean Corpuscular Volume 84 fL (79-100) 85 fL (79-100) Mean Corpuscular Hemoglobin 28 pg (25-35) 28 pg (25-35) Mean Corpuscular Hemoglobin Concent 33 g/dL (31-37) 33 g/dL (31-37) Red Cell Distribution Width 18.1 % (11.5-14.5) 18.5 % (11.5-14.5) Platelet Count 505 x10^3/uL (140-400) 449 x10^3/uL (140-400) Neutrophils (%) (Auto) 81 % (31-73) 76 % (31-73) Lymphocytes (%) (Auto) 9 % (24-48) 12 % (24-48) Monocytes (%) (Auto) 8 % (0-9) 7 % (0-9) Eosinophils (%) (Auto) 2 % (0-3) 4 % (0-3) Basophils (%) (Auto) 1 % (0-3) 1 % (0-3) Neutrophils # (Auto) 9.0 x10^3uL (1.8-7.7) 6.6 x10^3uL (1.8-7.7) Lymphocytes # (Auto) 1.0 x10^3/uL (1.0-4.8) 1.0 x10^3/uL (1.0-4.8) Monocytes # (Auto) 0.8 x10^3/uL (0.0-1.1) 0.6 x10^3/uL (0.0-1.1) Eosinophils # (Auto) 0.3 x10^3/uL (0.0-0.7) 0.3 x10^3/uL (0.0-0.7) Basophils # (Auto) 0.1 x10^3/uL (0.0-0.2) 0.1 x10^3/uL (0.0-0.2) Sodium Level 139 mmol/L (136-145) 138 mmol/L (136-145) Potassium Level 4.7 mmol/L (3.5-5.1) 4.7 mmol/L (3.5-5.1) Chloride Level 97 mmol/L (98-107) 98 mmol/L (98-107) Carbon Dioxide Level 27 mmol/L (21-32) 27 mmol/L (21-32) Anion Gap 15 (6-14) 13 (6-14) Blood Urea Nitrogen 60 mg/dL (8-26) 62 mg/dL (8-26) Creatinine 14.9 mg/dL (0.7-1.3) 15.7 mg/dL (0.7-1.3) Estimated GFR (Cockcroft-Gault) 4.5 4.2 BUN/Creatinine Ratio 4 (6-20) Glucose Level 179 mg/dL (70-99) 195 mg/dL (70-99) Calcium Level 9.0 mg/dL (8.5-10.1) 8.8 mg/dL (8.5-10.1) Total Bilirubin 0.3 mg/dL (0.2-1.0) Aspartate Amino Transf (AST/SGOT) 14 U/L (15-37) Alanine Aminotransferase (ALT/SGPT) < 6 U/L (16-63) Alkaline Phosphatase 130 U/L (46-116) Total Protein 7.2 g/dL (6.4-8.2) Albumin 2.6 g/dL (3.4-5.0) Albumin/Globulin Ratio 0.6 (1.0-1.7) Glucose (Fingerstick) 250 mg/dL (70-99) 106 mg/dL (70-99) Laboratory Tests Test 12/15/18 20:40 12/16/18 00:59 12/16/18 03:15 12/16/18 07:10 White Blood Count 11.1 x10^3/uL (4.0-11.0) 8.7 x10^3/uL (4.0-11.0) Red Blood Count 2.65 x10^6/uL (4.30-5.70) 2.35 x10^6/uL (4.30-5.70) Hemoglobin 7.3 g/dL (13.0-17.5) 6.6 g/dL (13.0-17.5) Hematocrit 22.4 % (39.0-53.0) 19.9 % (39.0-53.0) Mean Corpuscular Volume 84 fL (79-100) 85 fL (79-100) Mean Corpuscular Hemoglobin 28 pg (25-35) 28 pg (25-35) Mean Corpuscular Hemoglobin Concent 33 g/dL (31-37) 33 g/dL (31-37) Red Cell Distribution Width 18.1 % (11.5-14.5) 18.5 % (11.5-14.5) Platelet Count 505 x10^3/uL (140-400) 449 x10^3/uL (140-400) Neutrophils (%) (Auto) 81 % (31-73) 76 % (31-73) Lymphocytes (%) (Auto) 9 % (24-48) 12 % (24-48) Monocytes (%) (Auto) 8 % (0-9) 7 % (0-9) Eosinophils (%) (Auto) 2 % (0-3) 4 % (0-3) Basophils (%) (Auto) 1 % (0-3) 1 % (0-3) Neutrophils # (Auto) 9.0 x10^3uL (1.8-7.7) 6.6 x10^3uL (1.8-7.7) Lymphocytes # (Auto) 1.0 x10^3/uL (1.0-4.8) 1.0 x10^3/uL (1.0-4.8) Monocytes # (Auto) 0.8 x10^3/uL (0.0-1.1) 0.6 x10^3/uL (0.0-1.1) Eosinophils # (Auto) 0.3 x10^3/uL (0.0-0.7) 0.3 x10^3/uL (0.0-0.7) Basophils # (Auto) 0.1 x10^3/uL (0.0-0.2) 0.1 x10^3/uL (0.0-0.2) Sodium Level 139 mmol/L (136-145) 138 mmol/L (136-145) Potassium Level 4.7 mmol/L (3.5-5.1) 4.7 mmol/L (3.5-5.1) Chloride Level 97 mmol/L (98-107) 98 mmol/L (98-107) Carbon Dioxide Level 27 mmol/L (21-32) 27 mmol/L (21-32) Anion Gap 15 (6-14) 13 (6-14) Blood Urea Nitrogen 60 mg/dL (8-26) 62 mg/dL (8-26) Creatinine 14.9 mg/dL (0.7-1.3) 15.7 mg/dL (0.7-1.3) Estimated GFR (Cockcroft-Gault) 4.5 4.2 BUN/Creatinine Ratio 4 (6-20) Glucose Level 179 mg/dL (70-99) 195 mg/dL (70-99) Calcium Level 9.0 mg/dL (8.5-10.1) 8.8 mg/dL (8.5-10.1) Total Bilirubin 0.3 mg/dL (0.2-1.0) Aspartate Amino Transf (AST/SGOT) 14 U/L (15-37) Alanine Aminotransferase (ALT/SGPT) < 6 U/L (16-63) Alkaline Phosphatase 130 U/L (46-116) Total Protein 7.2 g/dL (6.4-8.2) Albumin 2.6 g/dL (3.4-5.0) Albumin/Globulin Ratio 0.6 (1.0-1.7) Glucose (Fingerstick) 250 mg/dL (70-99) 106 mg/dL (70-99) Vitals Vital Signs Date Time Temp Pulse Resp B/P (MAP) Pulse Ox O2 Delivery O2 Flow Rate FiO2 12/16/18 11:02 98.3 81 16 160/95 98.3 12/16/18 07:57 95 12/16/18 07:00 Room Air Assessment Assessment Abdominal pain Anemia with hb around 6.6 s/p PRBC transfusion Sepsis 11/29/18 with MSSA bacteremia. ? line infection - clinically better. Repeat BC from 12/04 Neg -s/p HDC removal, 12/05. - Echo neg veg. Leukocytosis - up post procedure and steroids, 12/02. better Transaminitis ? sepsis - improving Fever - better PCN allergy - nausea. Has tolerated Zosyn without problem Constipation Acute diastolic CHF CKD on HD s/p HDC on 11/26 and removal on 12/05. Malfunctioning peritoneal catheter -s/p repositioning and hernia repair on 12/02 Diabetes Plan Plan Continue cefazolin renal dosing while here repeat BC Probiotics f/u labs in am and cults cont supportive care D/w ROBERT CRUZ MD Dec 16, 2018 11:15
[2018-12-16] MEDS ORDERED: ceFAZolin SODIUM 1 GM in IV DEXTROSE 5% 50 ML IV SCH (12:00)
[2018-12-16] MEDS: ceFAZolin SODIUM 1 GM in IV DEXTROSE 5% 50 ML IV SCH ×2 (15:00→21:40)
[2018-12-16] MEDS: LACTOBACILLUS RHAMNOSUS GG 1 CAPSULE. PO SCH (21:38)
[2018-12-17 03:48] VITALS: BP 160/93
[2018-12-17] MEDS: PANTOPRAZOLE 40 MG TABLET.DR. PO SCH (07:30)
[2018-12-17] MEDS: CARVEDILOL 12.5 MG TABLET. PO SCH (08:00)
[2018-12-17] MEDS: SEVELAMER CARBONATE 800 MG TABLET. PO SCH ×2 (08:00→12:41)
--- NOTE | 2018-12-17 08:30 | NUR ---
Medications held this morning due to dialysis. pt taken to dialysis per wheelchair.
[2018-12-17] MEDS: amLODIPine BESYLATE 10 MG TABLET PO SCH (09:00)
[2018-12-17] MEDS: LACTOBACILLUS RHAMNOSUS GG 1 CAPSULE. PO SCH (09:00)
[2018-12-17] MEDS: LISINOPRIL 20 MG TABLET PO SCH (09:00)
[2018-12-17] MEDS: POLYETHYLENE GLYCOL 3350 17 GM PACKET. PO SCH (09:00)
[2018-12-17] MEDS: cloNIDine HCL 0.2 MG TABLET PO SCH (09:00)
[2018-12-17] MEDS: SENNOSIDES 8.6 MG TABLET PO SCH (09:00)
[2018-12-17] MEDS: FUROSEMIDE 80 MG TABLET. PO SCH (09:00)
[2018-12-17] MEDS: DOCUSATE SODIUM 100 MG CAPSULE. PO SCH (09:00)
[2018-12-17] MEDS ORDERED: IV NORMAL SALINE 1000ML BAG 1,000 ML IV PRN ×2 (09:01)
[2018-12-17] MEDS ORDERED: DIALYSIS PATIENT. MC PRN (09:15)
--- NOTE | 2018-12-17 10:48 | PDOC ---
Infectious Disease Note Subjective: Subjective pt denies any complaints abdo pain improved once he had bm yesterday no n/v had bm today no f/c ROS: ROS Negative except for above. Vital Signs: Vital Signs Vital Signs Date Time Temp Pulse Resp B/P (MAP) Pulse Ox O2 Delivery O2 Flow Rate FiO2 12/17/18 08:00 Room Air 12/17/18 03:48 98.5 76 16 160/93 (115) 96 98.5 Physical Exam: PHYSICAL EXAM GENERAL: pt is sleepy but arousable, HEENT: Oral cavity,pharynx pink and moist.no conjunc petechia NECK: Supple. LUNGS: Clear to auscultation. HEART: S1 and S2. ABDOMEN: Mild distension. Dressed. PD in place -clean EXTREMITIES: No gross edema or cyanosis. SKIN: Warm without generalized rash. NEUROLOGIC: Arouses to name, responds appropriately Right-sided tunneled HD catheter out. no redness or drainage Medications: Inpatient Meds: Current Medications Medications (Trade) Dose Ordered Sig/Afua Start Time Stop Time Status Last Admin Dose Admin Amlodipine Besylate (Norvasc) 10 mg DAILY 12/16/18 09:00 12/16/18 08:10 10 MG Calcitriol (Rocaltrol) 0.5 mcg DAILY 12/16/18 09:00 12/16/18 08:09 0.5 MCG Calcium Carbonate/ Glycine (Tums) 500 mg PRN BID PRN 12/16/18 00:45 Carvedilol (Coreg) 25 mg BIDWMEALS 12/16/18 08:00 12/16/18 16:26 25 MG Cefazolin Sodium 1 gm/Dextrose 50 ml @ 100 mls/hr Q12HR 12/16/18 12:00 12/16/18 21:40 100 MLS/HR Cefazolin Sodium 2 gm/Dextrose 50 ml @ 100 mls/hr MoWe 12/17/18 17:00 12/17/18 17:00 DC Cefazolin Sodium 3 gm/Dextrose 100 ml @ 200 mls/hr Fr 12/19/18 17:00 12/19/18 17:00 DC Cinacalcet (Sensipar) 60 mg DAILY 12/16/18 09:00 12/16/18 08:09 60 MG Clonidine HCl (Catapres) 0.2 mg BID 12/16/18 01:00 12/16/18 21:39 0.2 MG Darbepoetin David (Aranesp) 60 mcg WEEKLYHS 12/21/18 21:00 Docusate Sodium (Colace) 100 mg BID 12/16/18 01:00 12/16/18 21:40 100 MG Famotidine (Pepcid) 20 mg QHS 12/16/18 01:30 12/16/18 21:39 20 MG Fentanyl Citrate (Fentanyl 2ml Vial) 50 mcg PRN Q1HR PRN 12/15/18 23:30 12/16/18 23:29 DC 12/16/18 01:59 50 MCG Fluticasone Propionate (Flonase) 2 spray DAILY 12/16/18 09:00 12/16/18 08:07 2 SPRAY Furosemide (Lasix) 80 mg BID94 12/16/18 01:30 12/16/18 16:26 80 MG Info (PHARMACY MONITORING -- do not chart) 1 each PRN DAILY PRN 12/17/18 09:15 UNV Insulin Glargine (Lantus) 20 units HS 12/16/18 01:30 12/16/18 21:50 20 UNITS Lactobacillus Rhamnosus (Culturelle) 1 cap BID 12/16/18 21:00 12/16/18 21:38 1 CAP Levofloxacin/ Dextrose 100 ml @ 100 mls/hr Q48H 12/17/18 23:00 12/17/18 23:00 DC Levofloxacin/ Dextrose (Levaquin Per Pharmacy) 1 each PRN DAILY PRN 12/16/18 01:00 Cancel Lisinopril (Prinivil) 40 mg BID 12/16/18 01:30 12/16/18 21:39 40 MG Ondansetron HCl (Zofran) 4 mg PRN Q8HRS PRN 12/15/18 23:30 12/16/18 23:29 DC 12/16/18 08:19 4 MG Oxycodone/ Acetaminophen (Percocet 5/325) 1 tab PRN Q6HRS PRN 12/16/18 00:45 Pantoprazole Sodium (Protonix) 40 mg DAILYAC 12/16/18 07:30 12/16/18 08:12 40 MG Polyethylene Glycol (miraLAX PACKET) 17 gm DAILY 12/16/18 09:00 12/16/18 08:12 17 GM Sennosides (Senna) 8.6 mg BID 12/16/18 01:30 12/16/18 21:40 8.6 MG Sevelamer Carbonate (Renvela) 4,000 mg TIDWMEALS 12/16/18 08:00 12/16/18 16:29 4,000 MG Simvastatin (Zocor) 20 mg HS 12/16/18 01:30 12/16/18 21:00 20 MG Sodium Chloride 1,000 ml @ 400 mls/hr Q2H30M PRN 12/17/18 09:01 12/17/18 21:00 Sodium Cl/Sod Bicarb/Potass Cl/ PEG (Golytely) 4,000 ml 1X ONCE 12/16/18 09:00 12/16/18 09:01 DC 12/16/18 14:59 4,000 ML Vitamin B Complex/ Vitamin C (Johanna-Celia) 1 tab DAILY 12/16/18 09:00 12/16/18 08:09 1 TAB Vitamin D (Vitamin D3) 5,000 unit DAILY 12/16/18 09:00 12/16/18 08:09 5,000 UNIT Labs: Lab Laboratory Tests Test 12/16/18 14:57 12/16/18 16:49 12/16/18 20:46 12/17/18 06:50 Glucose (Fingerstick) 54 mg/dL (70-99) 208 mg/dL (70-99) 254 mg/dL (70-99) Reticulocyte Count (auto) 2.1 % (0.5-2.5) Lactate Dehydrogenase 288 U/L (85-227) Objective: Assessment: Abdominal pain ? etiology,resolved now Anemia with hb around 6.6 s/p PRBC transfusion Sepsis 11/29/18 with MSSA bacteremia. ? line infection - clinically better. Repeat BC from 12/04 Neg -s/p HDC removal, 12/05. - Echo neg veg. Leukocytosis - up post procedure and steroids, 12/02. better Transaminitis ? sepsis - improving Fever - better PCN allergy - nausea. Has tolerated Zosyn without problem Constipation Acute diastolic CHF CKD on HD s/p HDC on 11/26 and removal on 12/05. Malfunctioning peritoneal catheter -s/p repositioning and hernia repair on 12/02 Diabetes Plan: Plan of Care Continue cefazolin repeat BC Probiotics f/u labs in am and cults cont supportive care ROBERT NESS MD Dec 17, 2018 10:48
--- NOTE | 2018-12-17 11:47 | PDOC ---
SUBJECTIVE ROS Seen on HD, no complaints, concerns OBJECTIVE Vital Signs Vital Signs Date Time Temp Pulse Resp B/P (MAP) Pulse Ox O2 Delivery O2 Flow Rate FiO2 12/17/18 08:00 Room Air 12/17/18 03:48 98.5 76 16 160/93 (115) 96 98.5 I & 0 Intake and Output 12/17/18 07:00 Intake Total 640 ml Balance 640 ml Intake Oral 540 ml Blood Product IV Normal Saline Flush 100 ml # Bowel Movements 2 PHYSICAL EXAM Physical Exam GEN.: NAD HEENT: OM moist NECK: Supple. LUNGS: Clear to auscultation. HEART: RRR, S1, S2 present. ABDOMEN: Soft, nontender PD cath in place EXTREMITIES: No edema NEUROLOGIC: Grossly normal Skin No rash - No Kimbrough DIAGNOSIS/ASSESSMENT Assessment & Plan ESRD- On HD MWF, Seen on HD, tolerating well Continue as ordered, al Amaya PD was repositioned recently - GS following, Not ready to use Abdominal pain - better Anemia - currently worse with symptoms s/p PRBC History of catheter related bloodstream infection with MSSA On Abx, ID following History of diabetes mellitus type 1 COMMENT/RELEVANT DATA Meds Current Medications Medications (Trade) Dose Ordered Sig/Afua Start Time Stop Time Status Last Admin Dose Admin Amlodipine Besylate (Norvasc) 10 mg DAILY 12/16/18 09:00 12/16/18 08:10 10 MG Calcitriol (Rocaltrol) 0.5 mcg DAILY 12/16/18 09:00 12/16/18 08:09 0.5 MCG Calcium Carbonate/ Glycine (Tums) 500 mg PRN BID PRN 12/16/18 00:45 Carvedilol (Coreg) 25 mg BIDWMEALS 12/16/18 08:00 12/16/18 16:26 25 MG Cefazolin Sodium 1 gm/Dextrose 50 ml @ 100 mls/hr Q12HR 12/16/18 12:00 12/16/18 21:40 100 MLS/HR Cefazolin Sodium 2 gm/Dextrose 50 ml @ 100 mls/hr MoWe 12/17/18 17:00 12/17/18 17:00 DC Cefazolin Sodium 3 gm/Dextrose 100 ml @ 200 mls/hr Fr 12/19/18 17:00 12/19/18 17:00 DC Cinacalcet (Sensipar) 60 mg DAILY 12/16/18 09:00 12/16/18 08:09 60 MG Clonidine HCl (Catapres) 0.2 mg BID 12/16/18 01:00 12/16/18 21:39 0.2 MG Darbepoetin David (Aranesp) 60 mcg WEEKLYHS 12/21/18 21:00 Docusate Sodium (Colace) 100 mg BID 12/16/18 01:00 12/16/18 21:40 100 MG Famotidine (Pepcid) 20 mg QHS 12/16/18 01:30 12/16/18 21:39 20 MG Fentanyl Citrate (Fentanyl 2ml Vial) 50 mcg PRN Q1HR PRN 12/15/18 23:30 12/16/18 23:29 DC 12/16/18 01:59 50 MCG Fluticasone Propionate (Flonase) 2 spray DAILY 12/16/18 09:00 12/16/18 08:07 2 SPRAY Furosemide (Lasix) 80 mg BID94 12/16/18 01:30 12/16/18 16:26 80 MG Info (PHARMACY MONITORING -- do not chart) 1 each PRN DAILY PRN 12/17/18 09:15 UNV Insulin Glargine (Lantus) 20 units HS 12/16/18 01:30 12/16/18 21:50 20 UNITS Lactobacillus Rhamnosus (Culturelle) 1 cap BID 12/16/18 21:00 12/16/18 21:38 1 CAP Levofloxacin/ Dextrose 100 ml @ 100 mls/hr Q48H 12/17/18 23:00 12/17/18 23:00 DC Levofloxacin/ Dextrose (Levaquin Per Pharmacy) 1 each PRN DAILY PRN 12/16/18 01:00 Cancel Lisinopril (Prinivil) 40 mg BID 12/16/18 01:30 12/16/18 21:39 40 MG Ondansetron HCl (Zofran) 4 mg PRN Q8HRS PRN 12/15/18 23:30 12/16/18 23:29 DC 12/16/18 08:19 4 MG Oxycodone/ Acetaminophen (Percocet 5/325) 1 tab PRN Q6HRS PRN 12/16/18 00:45 Pantoprazole Sodium (Protonix) 40 mg DAILYAC 12/16/18 07:30 12/16/18 08:12 40 MG Polyethylene Glycol (miraLAX PACKET) 17 gm DAILY 12/16/18 09:00 12/16/18 08:12 17 GM Sennosides (Senna) 8.6 mg BID 12/16/18 01:30 12/16/18 21:40 8.6 MG Sevelamer Carbonate (Renvela) 4,000 mg TIDWMEALS 12/16/18 08:00 12/16/18 16:29 4,000 MG Simvastatin (Zocor) 20 mg HS 12/16/18 01:30 12/16/18 21:00 20 MG Sodium Chloride 1,000 ml @ 400 mls/hr Q2H30M PRN 12/17/18 09:01 12/17/18 21:00 Sodium Cl/Sod Bicarb/Potass Cl/ PEG (Golytely) 4,000 ml 1X ONCE 12/16/18 09:00 12/16/18 09:01 DC 12/16/18 14:59 4,000 ML Vitamin B Complex/ Vitamin C (Johanna-Celia) 1 tab DAILY 12/16/18 09:00 12/16/18 08:09 1 TAB Vitamin D (Vitamin D3) 5,000 unit DAILY 12/16/18 09:00 12/16/18 08:09 5,000 UNIT Lab Laboratory Tests Test 12/16/18 14:57 12/16/18 16:49 12/16/18 20:46 12/17/18 06:50 Glucose (Fingerstick) 54 mg/dL (70-99) 208 mg/dL (70-99) 254 mg/dL (70-99) Reticulocyte Count (auto) 2.1 % (0.5-2.5) Lactate Dehydrogenase 288 U/L (85-227) Results All relevant outside records, renal labs, imaging studies, telemetry/EKG's were reviewed. AYANNA PEREZ MD Dec 17, 2018 11:47
--- NOTE | 2018-12-17 12:03 | NUR ---
SW following. Discussed with RN, pt has MWF dialysis at [facility] ([phone]) at 1500/1515. SW will continue to follow.
[2018-12-17] MEDS: ceFAZolin SODIUM 1 GM in IV DEXTROSE 5% 50 ML IV SCH (12:30)
[2018-12-17] MEDS: CHOLECALCIFEROL (VITAMIN D3) 5,000 UNIT CAPSULE PO SCH (12:40)
[2018-12-17] MEDS: CINACALCET HCL 30 MG TABLET PO SCH (12:40)
[2018-12-17] MEDS: CALCITRIOL 0.25 MCG CAPSULE. PO SCH (12:41)
[2018-12-17] MEDS: FLUTICASONE 50MCG/NASAL SPRAY 16GM BOTTLE. NS SCH (12:42)
[2018-12-17] MEDS: FOLIC/VIT B COMP W-C (RENAL) TABLET. PO SCH (12:46)
[2018-12-17 15:00] VITALS: BP 158/99
--- NOTE | 2018-12-17 15:16 | PDOC3 ---
Discharge Summary Visit Information Date of Admission: Dec 16, 2018 Date of Discharge: Dec 17, 2018 Admitting Diagnosis: abdominal pain secondary to constipation Admitting Diagnosis Comment: symptomatic anemia Final Diagnosis Abdominal pain most likely secondary to constipation now resolved Anemia of chronic disease, currently worse with symptoms History of catheter related bloodstream infection with MSSA Dyspnea and weakness secondary to the anemia End-stage renal disease currently on hemodialysis and preparing to start peritoneal dialysis History of diabetes mellitus type 1 Brief Hospital Course Allergies Allergies Coded Allergies Type Severity Reaction Last Updated Verified Penicillins Adverse Reaction Mild Nausea 12/14/18 Yes Vital Signs Vital Signs Date Time Temp Pulse Resp B/P (MAP) Pulse Ox O2 Delivery O2 Flow Rate FiO2 12/17/18 12:46 18 Room Air 12/17/18 03:48 98.5 76 160/93 (115) 96 98.5 Lab Results Laboratory Tests Test 12/15/18 20:40 12/16/18 00:59 12/16/18 03:15 12/16/18 07:10 White Blood Count 11.1 x10^3/uL (4.0-11.0) 8.7 x10^3/uL (4.0-11.0) Red Blood Count 2.65 x10^6/uL (4.30-5.70) 2.35 x10^6/uL (4.30-5.70) Hemoglobin 7.3 g/dL (13.0-17.5) 6.6 g/dL (13.0-17.5) Hematocrit 22.4 % (39.0-53.0) 19.9 % (39.0-53.0) Mean Corpuscular Volume 84 fL (79-100) 85 fL (79-100) Mean Corpuscular Hemoglobin 28 pg (25-35) 28 pg (25-35) Mean Corpuscular Hemoglobin Concent 33 g/dL (31-37) 33 g/dL (31-37) Red Cell Distribution Width 18.1 % (11.5-14.5) 18.5 % (11.5-14.5) Platelet Count 505 x10^3/uL (140-400) 449 x10^3/uL (140-400) Neutrophils (%) (Auto) 81 % (31-73) 76 % (31-73) Lymphocytes (%) (Auto) 9 % (24-48) 12 % (24-48) Monocytes (%) (Auto) 8 % (0-9) 7 % (0-9) Eosinophils (%) (Auto) 2 % (0-3) 4 % (0-3) Basophils (%) (Auto) 1 % (0-3) 1 % (0-3) Neutrophils # (Auto) 9.0 x10^3uL (1.8-7.7) 6.6 x10^3uL (1.8-7.7) Lymphocytes # (Auto) 1.0 x10^3/uL (1.0-4.8) 1.0 x10^3/uL (1.0-4.8) Monocytes # (Auto) 0.8 x10^3/uL (0.0-1.1) 0.6 x10^3/uL (0.0-1.1) Eosinophils # (Auto) 0.3 x10^3/uL (0.0-0.7) 0.3 x10^3/uL (0.0-0.7) Basophils # (Auto) 0.1 x10^3/uL (0.0-0.2) 0.1 x10^3/uL (0.0-0.2) Sodium Level 139 mmol/L (136-145) 138 mmol/L (136-145) Potassium Level 4.7 mmol/L (3.5-5.1) 4.7 mmol/L (3.5-5.1) Chloride Level 97 mmol/L (98-107) 98 mmol/L (98-107) Carbon Dioxide Level 27 mmol/L (21-32) 27 mmol/L (21-32) Anion Gap 15 (6-14) 13 (6-14) Blood Urea Nitrogen 60 mg/dL (8-26) 62 mg/dL (8-26) Creatinine 14.9 mg/dL (0.7-1.3) 15.7 mg/dL (0.7-1.3) Estimated GFR (Cockcroft-Gault) 4.5 4.2 BUN/Creatinine Ratio 4 (6-20) Glucose Level 179 mg/dL (70-99) 195 mg/dL (70-99) Calcium Level 9.0 mg/dL (8.5-10.1) 8.8 mg/dL (8.5-10.1) Total Bilirubin 0.3 mg/dL (0.2-1.0) Aspartate Amino Transf (AST/SGOT) 14 U/L (15-37) Alanine Aminotransferase (ALT/SGPT) < 6 U/L (16-63) Alkaline Phosphatase 130 U/L (46-116) Total Protein 7.2 g/dL (6.4-8.2) Albumin 2.6 g/dL (3.4-5.0) Albumin/Globulin Ratio 0.6 (1.0-1.7) Glucose (Fingerstick) 250 mg/dL (70-99) 106 mg/dL (70-99) Test 12/16/18 14:57 12/16/18 16:49 12/16/18 20:46 12/17/18 06:50 Glucose (Fingerstick) 54 mg/dL (70-99) 208 mg/dL (70-99) 254 mg/dL (70-99) Reticulocyte Count (auto) 2.1 % (0.5-2.5) Lactate Dehydrogenase 288 U/L (85-227) Laboratory Tests Test 12/16/18 16:49 12/16/18 20:46 12/17/18 06:50 Glucose (Fingerstick) 208 mg/dL (70-99) 254 mg/dL (70-99) Reticulocyte Count (auto) 2.1 % (0.5-2.5) Lactate Dehydrogenase 288 U/L (85-227) Brief Hospital Course Mr. Jacques is a 38 old male who presented with severe abdominal pain most likely secondary to constipation. Patient also was found to be anemic compared to his last admission which was last week. The patient required a blood transfusion that actually improved his overall energy level he was less short of breath and less weak. He received GoLYTELY for his constipation and he had a appropriate bowel movement as consequence. His abdominal pain resolved at that point and he was in good spirits on the day of discharge to be going home. Signs and symptoms of alarm were discussed with the patient prior to discharge continue with his Ancef for his catheter-related blood stream infection with MSSA as scheduled during his dialysis days he will be following up with Dr. Larose in the outpatient setting HEENT: Head is normocephalic, atraumatic NECK: Supple. LUNGS: Clear to auscultation. HEART: RRR, S1, S2 present. Peripheral pulses intact ABDOMEN: Soft, nontender. Positive bowel sounds. EXTREMITIES: Without any cyanosis. NEUROLOGIC: Normal speech, normal tone PSYCHIATRIC: Normal affect, normal mood. Discharge Information Condition at Discharge: Improved Follow Up: Weeks Disposition/Orders: D/C to Home Scheduled Amlodipine Besylate (Amlodipine Besylate) 10 Mg Tablet, 10 MG PO DAILY, ( Reported) Entered as Reported by: David Alba on 12/21/171113 Last Action: Continued on 12/16/1846 by DILAN JAVIER Calcitriol (Calcitriol) 0.25 Mcg Capsule, 2 CAP PO DAILY for low calcium, #30 Ref 5 (Reported) Entered as Reported by: David Alba on 12/21/171113 Last Action: Converted on 12/16/1846 by DILAN JAVIER Carvedilol (Carvedilol) 25 Mg Tablet, 25 MG PO BIDWMEALS for CARDIAC, (Reported) Entered as Reported by: HILARY MIX on 11/24/182 Last Action: Converted on 12/16/1846 by DILAN JAVIER Cholecalciferol (Vitamin D3) (Vitamin D) 5,000 Unit Tablet, 5,000 UNIT PO DAILY, (Reported) Entered as Reported by: David Alba on 12/21/171113 Last Action: Converted on 12/16/1846 by DILAN JAVIER Cinacalcet Hcl (Sensipar) 60 Mg Tablet, 60 MG PO DAILY, (Reported) Entered as Reported by: David Alba on 12/21/171113 Last Action: Converted on 12/16/1846 by DILAN JAVIER Clonidine Hcl (Clonidine Hcl) 0.2 Mg Tablet, 1 TAB PO BID, #60 Ref 5 (Reported) Entered as Reported by: David Alba on 12/21/171113 Last Action: Continued on 12/16/1846 by DILAN JAVIER Docusate Sodium (Colace) 100 Mg Capsule, 1 CAP PO BID for constipation, #30 ( Reported) Entered as Reported by: HILARY MIX on 11/24/181248 Last Action: Continued on 12/16/1846 by DILAN JAVIER Epoetin David (Procrit) 10,000 Unit/1 Ml Vial, 10,000 UNIT IJ QSU for anemia, ( Reported) Entered as Reported by: ASHLEY ROWELL on 11/30/1823 Last Action: Converted on 12/16/1846 by DILAN JAVIER Famotidine (Pepcid) 20 Mg Tablet, 20 MG PO BID, #14 Prescribed by: ORQUIDEA TENORIO D.O. on 12/14/18506 Last Action: Continued on 12/16/1846 by DILAN JAVIER Fluticasone Propionate (Flonase Allergy Relief) 9.9 Ml [place].susp, 2 SPRAYS NS DAILY for allergies, (Reported) Entered as Reported by: ASHLEY ROWELL on 11/30/1823 Last Action: Converted on 12/16/1846 by DILAN JAVIER Furosemide (Furosemide) 80 Mg Tablet, 1 TAB PO BID, #180 Ref 3 (Reported) Entered as Reported by: David Alba on 12/21/171113 Last Action: Continued on 12/16/1846 by DILAN JAVIER Insulin Glargine,Hum.rec.anlog (Lantus Solostar) 100 Unit/1 Ml Insuln.pen, 20 UNIT SQ HS for hyperglycemia, (Reported) Entered as Reported by: SUKH HERNÁNDEZ on 04/15/17 1604 Last Action: Continued on 12/16/1846 by DILAN JAVIER Lisinopril (Lisinopril) 40 Mg Tablet, 1 TAB PO BID, #30 Ref 5 (Reported) Entered as Reported by: David Alba on 12/21/171113 Last Action: Continued on 12/16/1846 by DILAN JAVIER Pantoprazole Sodium (Protonix) 20 Mg Tablet.dr, 2 TAB PO DAILY for GERD, #30 ( Reported) Entered as Reported by: ASHLEY ROWELL on 11/30/1823 Last Action: Converted on 12/16/1846 by DILAN JAVIER Polyethylene Glycol 3350 (Miralax) 17 Gm Powd.pack, 1 PACKET PO DAILY for constipation, #30 Ref 3 (Reported) Entered as Reported by: HILARY MIX on 11/24/18 1249 Last Action: Converted on 12/16/1846 by DILAN JAVIER Sennosides (Senna) 8.6 Mg Tablet, 8.6 MG PO BID for constipation, (Reported) Entered as Reported by: HILARY MIX on 11/24/18 1249 Last Action: Converted on 12/16/1846 by DILAN JAVIER Sevelamer Carbonate (Renvela) 800 Mg Tablet, 5 TAB PO TIDWMEALS, #810 Ref 3 ( Reported) Entered as Reported by: David Alba on 12/21/17 1142 Last Action: Continued on 12/16/1846 by DILAN JAVIER Simvastatin (Simvastatin) 20 Mg Tablet, 20 MG PO HS for FOR CHOLESTEROL, #30 Ref 0 (Reported) Entered as Reported by: David Alba on 12/21/171113 Last Action: Converted on 12/16/1846 by DILAN JAVIER Vit B Cmplx 3/Fa/Vit C/Biotin (Johanna-Celia Rx Tablet) 1 Each Tablet, 1 EACH PO DAILY, (Reported) Entered as Reported by: David Alba on 12/21/171113 Last Action: Converted on 12/16/1846 by DILAN JAVIER Scheduled PRN Albuterol Sulfate (Proair Respiclick) 90 Mcg Aer.pow.ba, 1-2 PUFF IH PRN Q6HRS PRN for SHORTNESS OF BREATH, (Reported) Entered as Reported by: ASHLEY ROWELL on 11/30/1823 Last Action: Reviewed on 12/16/1835 by DILAN JAVIER Calcium Carbonate (Tums) 200 Mg Tab.chew, 200 MG PO BID PRN for INDIGESTION, ( Reported) Entered as Reported by: ASHLEY ROWELL on 11/30/1823 Last Action: Continued on 12/16/1846 by DILAN JAVIER Hyoscyamine Sulfate (Levsin-Sl) 0.125 Mg Tab.subl, 1-2 TAB SL PRN Q4HRS PRN for PAIN, #20 Prescribed by: ORQUIDEA TENORIO D.O. on 12/14/18 0509 Last Action: Reviewed on 12/16/1835 by DILAN JAVIER Ondansetron (Ondansetron Odt) 4 Mg Tab.rapdis, 1 TAB PO PRN Q6-8HRS PRN for NAUSEA, #16 Prescribed by: ORQUIDEA TENORIO D.O. on 12/14/18506 Last Action: Reviewed on 12/16/1835 by DILAN JAVIER Oxycodone/Apap 5-325 (Percocet 5-325 Mg Tablet ) 1 Each Tablet, 1 TAB PO PRN Q6HRS PRN for PAIN, #8 Ref 0 Prescribed by: ORQUIDEA TENORIO D.O. on 12/14/18508 Last Action: Continued on 12/16/1846 by DILAN JAVIER Miscellaneous Medications Insulin Aspart (Novolog) 100 Unit/1 Ml Vial, 100 UNIT SQ, (Reported) sliding scale Entered as Reported by: SUKH HERNÁNDEZ on 04/15/17 1604 Last Action: Reviewed on 12/16/1835 by ACOSTA KATHLEEN MD Dec 17, 2018 15:16
--- NOTE | 2018-12-17 16:38 | NUR ---
Pt discharged to home. Ride provided by neighbor. Discharge instructions given re: diet, activity, medications and follow up. Verbalized understanding.
[2018-12-17] MEDS ORDERED: ceFAZolin SODIUM 2 GM in IV DEXTROSE 5% 50 ML IV SCH (17:00)
[2018-12-19] MEDS ORDERED: ceFAZolin SODIUM 3 GM in IV DEXTROSE 5% 100ML 100 ML IV SCH (17:00)
[2018-12-21] MEDS ORDERED: DARBEPOETIN ALFA 60 MCG/0.3 ML DISP.SYRIN. SQ SCH (21:00)
== END 2018-12-17 16:04 | disposition home or self-care (01) | DRG 291 ==
LOC: ER 19:42 → 6 SOUTH 22:03
PROVIDERS: ADMIT Internal Medicine; ATTEND Internal Medicine
PROC: 5A1D70Z Performance of Urinary Filtration, Intermittent, Less than 6 Hours Per Day (ICD-10-PCS; principal; 2018-12-16)
PROC: 5A1D70Z Performance of Urinary Filtration, Intermittent, Less than 6 Hours Per Day (ICD-10-PCS; 2018-12-17)
PROC: 30233N1 Transfusion of Nonautologous Red Blood Cells into Peripheral Vein, Percutaneous Approach (ICD-10-PCS; 2018-12-17)
DX: I13.2 Hypertensive heart and chronic kidney disease with heart failure and with stage 5 chronic kidney disease, or end stage renal disease (principal); I50.31 Acute diastolic (congestive) heart failure; N18.6 End stage renal disease; E10.22 Type 1 diabetes mellitus with diabetic chronic kidney disease; D63.8 Anemia in other chronic diseases classified elsewhere; K59.00 Constipation, unspecified; E21.3 Hyperparathyroidism, unspecified; Z88.0 Allergy status to penicillin; Z99.2 Dependence on renal dialysis; Z79.4 Long term (current) use of insulin; Z79.899 Other long term (current) drug therapy
CPT/HCPCS: 36415; 74022; 74176; 80048; 80053; 82962; 83615; 83690; 83735; 85025; 85045; 86850; 86900; 86901; 86920; 87040; 96361; 96374; 96375; J0690; J1815; J1956; J2405; J3010; P9016; 99284-25; 99285-25

== ENCOUNTER 2019-02-05 06:45 | Inpatient (IN) | payer MEDICARE, OTHER ==
[2019-02-05] VITALS (11 sets, daily range): BP systolic 132–171; BP diastolic 62–97
[~2019-02-05] VITALS: Ht 177.8 cm; Wt 72.6 kg
[~2019-02-05 06:45] MED LIST changes: +BUPIVAC MPF-EPI 0.5%-1:200000 30 ML VIAL. ONE; +HEPARIN SODIUM 5,000 UNIT in IV NORMAL SALINE 500ML BAG 500 ML IRR ONE
[2019-02-05] MEDS ORDERED: HYDROmorphone 2 MG/ML VIAL IV PRN (07:00)
[2019-02-05] MEDS ORDERED: PROCHLORPERAZINE 10 MG/2 ML VIAL. IV PRN (07:00)
[2019-02-05] MEDS ORDERED: LIDOCAINE 1% PF 2 ML VIAL. ID PRN (07:00)
[2019-02-05] MEDS ORDERED: MORPHINE SULFATE 2 MG/ML VIAL. IV PRN (07:00)
[2019-02-05] MEDS ORDERED: ONDANSETRON PF 4 MG/2 ML VIAL. IV PRN (07:00)
[2019-02-05] MEDS ORDERED: IV RINGERS,LACTATED 1000ML 1,000 ML IV SCH (07:00)
[2019-02-05] MEDS ORDERED: fentaNYL PF VIAL 100 MCG/2 ML VIAL IV PRN (07:00)
[2019-02-05] MEDS ORDERED: NEOSTIGMINE METHYLSULFATE 5 MG/5 ML SYRINGE. ONE (07:21)
[2019-02-05] MEDS ORDERED: ONDANSETRON PF 4 MG/2 ML VIAL. ONE (07:21)
[2019-02-05] MEDS ORDERED: DEXAMETHASONE SOD PHOS 4 MG/ML VIAL ONE (07:21)
[2019-02-05] MEDS ORDERED: ROCURONIUM 50 MG/5 ML VIAL. ONE (07:21)
[2019-02-05] MEDS ORDERED: SEVOFLURANE 31 TO 60 MINUTES. IH ONE (07:21)
[2019-02-05] MEDS ORDERED: LIDOCAINE 2% PF 5 ML VIAL. ONE (07:21)
[2019-02-05] MEDS ORDERED: GLYCOPYRROLATE 1 MG/5 ML VIAL. ONE (07:21)
[2019-02-05] MEDS ORDERED: PROPOFOL 20 ML IV ONE (07:21)
[2019-02-05 07:26] LABS: BASO % 1 % (0-3); EOS # 0.6 x10^3/uL (0.0-0.7); EOS % 7 % (0-3); LYMPH % 12 % (24-48); MEAN CORPUSCULAR HEMOGLOBIN 28 pg (25-35); MEAN CORPUSCULAR HGB CONC 34 g/dL (31-37); MEAN CORPUSCULAR VOLUME 84 fL (79-100); MONO # 0.5 x10^3/uL (0.0-1.1); MONO % 7 % (0-9); NEUT # 5.8 x10^3uL (1.8-7.7); NEUT % 73 % (31-73); PLATELET COUNT 245 x10^3/uL (140-400); RED BLOOD COUNT 2.41 x10^6/uL (4.30-5.70); RED CELL DISTRIBUTION WIDTH 18.1 % (11.5-14.5); WHITE BLOOD COUNT 7.9 x10^3/uL (4.0-11.0)
[2019-02-05 07:29] LABS: HEMATOCRIT 20.3 % (39.0-53.0); HEMOGLOBIN 6.8 g/dL (13.0-17.5)
[2019-02-05 07:33] LABS: ALBUMIN 3.3 g/dL (3.4-5.0); CALCIUM 9.2 mg/dL (8.5-10.1); CREATININE 7.7 mg/dL (0.7-1.3); GFR 9.6; POTASSIUM 4.7 mmol/L (3.5-5.1)
[2019-02-05] MEDS: IV NORMAL SALINE 1000ML BAG 1,000 ML IV SCH ×4 (07:39→20:52)
[2019-02-05] MEDS ORDERED: INSULIN LISPRO 100 UNIT/ML 3ML VIAL. SQ ONE (08:00)
[2019-02-05] MEDS ORDERED: 0.9 % SODIUM CHLORIDE 10 ML DISP.SYRIN. IV PRN (10:30)
[2019-02-05] MEDS ORDERED: ALBUTEROL SULFATE IH PRN (10:45)
[2019-02-05] MEDS ORDERED: CALCIUM CARBONATE 500 MG TAB.CHEW PO PRN (10:45)
--- NOTE | 2019-02-05 11:08 | PDOC ---
BRIEF OPERATIVE NOTE Date: Feb 05, 2019 Pre-Op Diagnosis ESRD on hemodialysis with malfunctioning PD catheter Post-Op Diagnosis same Procedure Performed l/s converted to open exploration with removal of old PD catheter and ANDREWS Surgeon Michael Paralegal Specialist Lottie ARENAS Anesthesia Type: General Blood Loss 50cc IV Fluid 500cc Specimens Obtained abdominal wall tissue Findings extensive adhesions from previous mesh repair Complications conversion Operative Note Wk # [id number] PONCHO STRANGE MD Feb 05, 2019 11:08
[2019-02-05] MEDS ORDERED: fentaNYL PF VIAL 100 MCG/2 ML VIAL ONE ×2 (11:11→11:56)
[2019-02-05] MEDS: fentaNYL PF VIAL 100 MCG/2 ML VIAL IV PRN ×3 (11:13→11:58)
--- NOTE | 2019-02-05 11:31 | OP ---
DATE OF SURGERY: 02/05/2019 PREOPERATIVE DIAGNOSIS: End-stage renal disease on hemodialysis with malfunctioning peritoneal dialysis catheter. POSTOPERATIVE DIAGNOSIS: End-stage renal disease on hemodialysis with malfunctioning peritoneal dialysis catheter. PROCEDURE: Laparoscopic converted to open exploration with removal of old PD catheter and lysis of adhesions. SURGEON: Ahsan Strange MD GUN NUMBERER: DAGOBERTO Carnes. ANESTHESIA: General endotracheal. ESTIMATED BLOOD LOSS: 50 mL. IV FLUIDS: 500. INDICATIONS: The patient is a 38-year-old end-stage renal patient on hemodialysis, requesting PD. A previously placed right-sided PD catheter is not functioning and he is asking for repair or replacement of that catheter. OPERATIVE FINDINGS: There were extensive abdominal adhesions associated with previous mesh repair of an umbilical hernia as well as previous surgery. The pigtail of the catheter was deep in the pelvis between loops of small bowel. DESCRIPTION OF PROCEDURE: After discussing risks of the procedure with the patient and his in the preop holding area including but not limited to bleeding, infection, injury to bowel, or bladder, possible need for an "open" procedure or finding that he is unable to have peritoneal dialysis due to adhesions, the patient was taken to the operating suite, given a general endotracheal anesthetic. Kimbrough catheter placed to dependent drainage. Abdomen prepped and draped in usual sterile fashion. A small incision was made below the umbilicus in an area which appeared to be open at his previous exploration; however, attempt at placing the trocar encountered some adherent omentum and created some bleeding. In light of this, I abandoned the laparoscopic approach and extended part of his midline scar from above the umbilicus down to below the insertion site to allow access into the abdominal cavity. The extent of his adhesions required extension of the incision superiorly and eventually we were able to safely gain access into the abdominal cavity. I set about taking down adhesions carefully trying to discern the peritoneal dialysis catheter. Careful dissection revealed the catheter to be deep in the pelvis between loops of small bowel, but was readily deliverable. The Dacron cuff in the subcutaneous space was freed as was the cuff above the peritoneum and the catheter was delivered. The abdomen was irrigated and evacuated and checked for adequate hemostasis. In preparing to close, some tissue directly below the umbilicus raised concern as to the origin and as such was sent for frozen section, which showed a fibrinous reactive process consistent with response to previous mesh placement. The bowel was carefully inspected for any evidence of an enterotomy and none was found. When a correct sponge count had been obtained, a 19-[place] round Kaushik drain was brought through the old access site of the PD catheter and secured to the skin with silk stitch. When a second sponge count was correct, the incision was closed in running fashion using 0 Vicryl in the posterior sheath peritoneum and looped 0 PDS tied in the middle for the anterior sheath. Subcutaneous approximated with 3-0 Vicryl, skin closed with subcuticular 4-0 Monocryl. A sterile dressing applied. Abdominal binder placed. The patient was awakened from his anesthetic and taken to the recovery room in satisfactory condition. AHSAN STRANGE MD DR: JEFERSON/kiet JOB#: [id number] / [id number] ARIANNE Styles MD
[2019-02-05] MEDS: SENNOSIDES 8.6 MG TABLET PO SCH ×2 (11:45→20:53)
[2019-02-05] MEDS ORDERED: ALBUTEROL SULFATE 2.5 MG/3 ML NEBU. NEB PRN (11:45)
[2019-02-05] MEDS: amLODIPine BESYLATE 10 MG TABLET PO SCH (12:00)
[2019-02-05] MEDS: cloNIDine HCL 0.2 MG TABLET PO SCH ×2 (12:00→20:54)
[2019-02-05] MEDS: SEVELAMER CARBONATE 800 MG TABLET. PO SCH ×2 (12:00→16:47)
[2019-02-05] MEDS: HYDROmorphone 2 MG/ML VIAL IV PRN ×3 (12:48→20:52)
[2019-02-05] MEDS: CHOLECALCIFEROL (VITAMIN D3) 5,000 UNIT CAPSULE PO SCH (13:00)
[2019-02-05] MEDS ORDERED: DARBEPOETIN ALFA 100 MCG/0.5 ML DISP.SYRIN. SQ ONE (13:00)
[2019-02-05] MEDS: POLYETHYLENE GLYCOL 3350 17 GM PACKET. PO SCH (13:00)
[2019-02-05] MEDS: FOLIC/VIT B COMP W-C (RENAL) TABLET. PO SCH (13:00)
[2019-02-05] MEDS: CALCITRIOL 0.25 MCG CAPSULE. PO SCH (13:00)
[2019-02-05] MEDS: CINACALCET HCL 30 MG TABLET PO SCH (13:00)
[2019-02-05] MEDS ORDERED: ACETAMINOPHEN 500 MG TABLET PO PRN (13:30)
[2019-02-05] MEDS ORDERED: ZOLPIDEM 5 MG TABLET. PO PRN (13:30)
--- NOTE | 2019-02-05 13:39 | PDOC2 ---
CONSULT Date of Consult Date of Consult DATE: 02/05/19 TIME: 13:33 Reason for Consult Reason for Consult: Comanagement Referring Physician Referring Physician: Michael Identification/Chief Complaint Chief Complaint Malfunctioning PD catheter Source Source: Caregiver, Chart review, Patient History of Present Illness Reason for Visit: 38-year-old -[place] male who is ESRD on FAST [employer] FRY COOK, PD initially but PD cath has been malfunctioning and so has been getting dialysis Saturday through temporary HD catheter right subclavian. Malfunctioning PD catheter. General surgery had to take it out today. Initial plans from GS with revision, attempt to fix but could not do technically so. SOme difficulties,. Seen postop, drowsy sleepy from anesthesia. Postoperative soreness, some ice packing on the abdomen. Hemoglobin 6.8 with specific orders for no blood transfusion from renal His days of dialysis are no Saturday through his temporary HD catheter right subclavian. Blood pressure on the high side. Patient is on ESRD dialysis because of diabetes type 1 since age 6 Past Medical History Cardiovascular: HTN, OR, Syncope Heme/Onc: Anemia NOS Renal/: Chronic renal failure Endocrine: Diabetes, Hyperparathyroidism Past Surgical History Past Surgical History: Hernia Repair, Other (HD cath Rt subclavian) Family History Family History: No Significant Social History No ALCOHOL: none Drugs: None Lives: with Family Current Medications Current Medications Current Medications Heparin Sodium (Porcine) 5000 unit/Sodium Chloride 505 ml @ 505 mls/hr 1X ONCE IRR Last administered on 02/05/19at 07:52; Start 02/05/19 at 06:00; Stop at 06:59; Status DC Ondansetron HCl (Zofran) 4 mg PRN Q6HRS PRN IV NAUSEA/VOMITING; Start 02/05/19 at 07:00; Stop 02/05/19 at 20:00 Fentanyl Citrate (Fentanyl 2ml Vial) 25 mcg PRN Q5MIN PRN IV MILD PAIN; Start 02/05/19 at 07:00; Stop 02/05/19 at 20:00 Fentanyl Citrate (Fentanyl 2ml Vial) 50 mcg PRN Q5MIN PRN IV MODERATE TO SEVERE PAIN Last administered on 02/05/19at 11:58; Start 02/05/19 at 07:00; Stop 02/05/19 at 20:00 Morphine Sulfate (Morphine Sulfate) 1 mg PRN Q10MIN PRN IV SEVERE PAIN; Start 02/05/19 at 07:00; Stop 02/05/19 at 20:00 Ringer's Solution 1,000 ml @ 30 mls/hr Q24H IV ; Start 02/05/19 at 07:00; Stop 02/05/19 at 18:59; Status Cancel Lidocaine HCl (Xylocaine-Mpf 1% 2ml Vial) 2 ml PRN 1X PRN ID PRIOR TO IV START; Start 02/05/19 at 07:00; Stop 02/05/19 at 20:00 Hydromorphone HCl (Dilaudid) 0.5 mg PRN Q10MIN PRN IV SEV PAIN, Second choice; Start 02/05/19 at 07:00; Stop 02/05/19 at 20:00 Prochlorperazine Edisylate (Compazine) 5 mg PACU PRN PRN IV NAUSEA, MRX1; Start 02/05/19 at 07:00; Stop 02/05/19 at 20:00 Levofloxacin/ Dextrose 100 ml @ 100 mls/hr 1X PREOP PRN IV PRIOR TO PROCEDURE Last administered on 02/05/19at 07:35; Start 02/05/19 at 06:00; Stop 02/05/19 at 18:00 Propofol 20 ml @ As Directed STK-MED ONCE IV ; Start 02/05/19 at 07:21; Stop 02/05/19 at 07:22; Status DC Lidocaine HCl (Lidocaine Pf 2% Vial) 5 ml STK-MED ONCE .ROUTE ; Start 02/05/19 at 07:21; Stop 02/05/19 at 07:22; Status DC Ondansetron HCl (Zofran) 4 mg STK-MED ONCE .ROUTE ; Start 02/05/19 at 07:21; Stop 02/05/19 at 07:22; Status DC Dexamethasone Sodium Phosphate (Decadron) 4 mg STK-MED ONCE .ROUTE ; Start 02/05/19 at 07:21; Stop 02/05/19 at 07:22; Status DC Sevoflurane (Ultane) 30 ml STK-MED ONCE IH ; Start 02/05/19 at 07:21; Stop 02/05/19 at 07:22; Status DC Rocuronium [place] (Zemuron) 50 mg STK-MED ONCE .ROUTE ; Start 02/05/19 at 07:21; Stop 02/05/19 at 07:22; Status DC Neostigmine Methylsulfate (Neostigmine Methylsulfate) 5 mg STK-MED ONCE .ROUTE ; Start 02/05/19 at 07:21; Stop 02/05/19 at 07:22; Status DC Glycopyrrolate (Robinul) 1 mg STK-MED ONCE .ROUTE ; Start 02/05/19 at 07:21; Stop 02/05/19 at 07:22; Status DC Bupivacaine HCl/ Epinephrine Bitart (Sensorcain-Mpf Epi 0.5%-[id number]) 30 ml STK-MED ONCE .ROUTE Last administered on 02/05/19at 07:51; Start 02/05/19 at 06:30; Stop 02/05/19 at 07:30; Status DC Sodium Chloride 1,000 ml @ 75 mls/hr [id number] IV Last administered on 02/05/19at 07:39; Start 02/05/19 at 07:45 Insulin Human Lispro (HumaLOG VIAL) 4 unit 1X ONCE SQ Last administered on 02/05/19at 07:59; Start 02/05/19 at 08:00; Stop 02/05/19 at 08:01; Status DC Diphenhydramine HCl (Benadryl) 25 mg PRN Q6HRS PRN PO ITCHING; Start 02/05/19 at 10:30 Heparin Sodium (Porcine) (Heparin Sodium) 5,000 unit Q8HRS SQ ; Start 02/05/19 at 22:00 Sodium Chloride (Normal Saline Flush) 3 ml QSHIFT PRN IV AFTER MEDS AND BLOOD DRAWS; Start 02/05/19 at 10:30 Sodium Chloride 1,000 ml @ 50 mls/hr Q20H IV ; Start 02/05/19 at 10:30 Oxycodone/ Acetaminophen (Percocet 5/325) 1 tab PRN Q4HRS PRN PO MILD PAIN, 1ST CHOICE; Start 02/05/19 at 10:30 Oxycodone/ Acetaminophen (Percocet 5/325) 2 tab PRN Q4HRS PRN PO MODERATE PAIN, SEVERE PAIN; Start 02/05/19 at 10:30 Hydromorphone HCl (Dilaudid) 1 mg PRN Q3HRS PRN IV PAIN Last administered on 02/05/19at 12:48; Start 02/05/19 at 10:30 Docusate Sodium (Colace) 100 mg BID PO ; Start 02/05/19 at 21:00; Status UNV Ondansetron HCl (Zofran) 4 mg PRN Q6HRS PRN IV NAUESA, 1ST CHOICE; Start 02/05/19 at 10:30 Amlodipine Besylate (Norvasc) 10 mg DAILY PO ; Start 02/05/19 at 12:00 Calcium Carbonate/ Glycine (Tums) 250 mg PRN BID PRN PO INDIGESTION; Start 02/05/19 at 10:45 Clonidine HCl (Catapres) 0.2 mg BID PO ; Start 02/05/19 at 12:00 Docusate Sodium (Colace) 100 mg BID PO ; Start 02/05/19 at 21:00 Furosemide (Lasix) 80 mg BID92 PO ; Start 02/05/19 at 14:00 Insulin Glargine (Lantus) 16 units HS SQ ; Start 02/05/19 at 21:00 Lisinopril (Prinivil) 40 mg BID PO ; Start 02/05/19 at 21:00 Sevelamer Carbonate (Renvela) 4,000 mg TIDWMEALS PO ; Start 02/05/19 at 12:00 Non-Formulary Medication (Albuterol Sulfate (Proair Respiclick)) one to two puffs q6hrs ... PRN Q6HRS PRN IH SHORTNESS OF BREATH; Start 02/05/19 at 10:45; Status UNV Calcitriol (Rocaltrol) 0.5 mcg DAILY PO ; Start 02/05/19 at 13:00 Carvedilol (Coreg) 25 mg BIDWMEALS PO ; Start 02/05/19 at 17:00 Vitamin D (Vitamin D3) 5,000 unit DAILY PO ; Start 02/05/19 at 13:00 Cinacalcet (Sensipar) 60 mg DAILY PO ; Start 02/05/19 at 13:00 Darbepoetin David (Aranesp) 25 mcg Th SQ ; Start 02/12/19 at 21:00 Fluticasone Propionate (Flonase) 2 spray DAILY NS ; Start 02/06/19 at 09:00 Pantoprazole Sodium (Protonix) 40 mg DAILYAC PO ; Start 02/05/19 at 16:30 Polyethylene Glycol (miraLAX PACKET) 17 gm DAILY PO ; Start 02/05/19 at 13:00 Sennosides (Senna) 8.6 mg BID PO ; Start 02/05/19 at 11:45 Simvastatin (Zocor) 20 mg HS PO ; Start 02/05/19 at 21:00 Vitamin B Complex/ Vitamin C (Johanna-Celia) 1 tab DAILY PO ; Start 02/05/19 at 13:00 Fentanyl Citrate (Fentanyl 2ml Vial) 100 mcg STK-MED ONCE .ROUTE ; Start 02/05/19 at 11:11; Stop 02/05/19 at 11:12; Status DC Albuterol Sulfate (Ventolin Neb Soln) 2.5 mg PRN Q6HRS PRN NEB SHORTNESS OF BREATH; Start 02/05/19 at 11:45 Fentanyl Citrate (Fentanyl 2ml Vial) 100 mcg STK-MED ONCE .ROUTE ; Start 02/05/19 at 11:56; Stop 02/05/19 at 11:57; Status DC Darbepoetin David (Aranesp) 100 mcg 1X ONCE SQ ; Start 02/05/19 at 13:00; Stop 02/05/19 at 13:12; Status DC Acetaminophen (Tylenol) 500 mg PRN Q6HRS PRN PO MILD PAIN / TEMP; Start 02/05/19 at 13:30; Status UNV Zolpidem Tartrate (Ambien) 5 mg PRN QHS PRN PO INSOMNIA; Start 02/05/19 at 13:30; Status UNV Active Scripts Active Percocet 5-325 Mg Tablet (Oxycodone/Acetaminophen) 1 Each Tablet 1 Tab PO PRN Q6HRS PRN Ondansetron Odt (Ondansetron) 4 Mg Tab.rapdis 1 Tab PO PRN Q6-8HRS PRN Reported Protonix (Pantoprazole Sodium) 20 Mg Tablet.dr 2 Tab PO DAILY Flonase Allergy Relief (Fluticasone Propionate) 9.9 Ml Trinidad.susp 2 Sprays NS DAILY Procrit (Epoetin David) 10,000 Unit/1 Ml Vial 10,000 Unit IJ QSU Tums (Calcium Carbonate) 200 Mg Tab.chew 200 Mg PO BID PRN Proair Respiclick (Albuterol Sulfate) 90 Mcg Aer.pow.ba 1-2 Puff IH PRN Q6HRS PRN Senna (Sennosides) 8.6 Mg Tablet 8.6 Mg PO BID Miralax (Polyethylene Glycol 3350) 17 Gm Powd.pack 1 Packet PO DAILY Colace (Docusate Sodium) 100 Mg Capsule 1 Cap PO BID Carvedilol 25 Mg Tablet 25 Mg PO BIDWMEALS Renvela (Sevelamer Carbonate) 800 Mg Tablet 5 Tab PO TIDWMEALS Furosemide 80 Mg Tablet 1 Tab PO BID Vitamin D (Cholecalciferol (Vitamin D3)) 5,000 Unit Tablet 5,000 Unit PO DAILY Calcitriol 0.25 Mcg Capsule 2 Cap PO DAILY Clonidine Hcl 0.2 Mg Tablet 1 Tab PO BID Johanna-Celia Rx Tablet (Vit B Cmplx 3/Fa/Vit C/Biotin) 1 Each Tablet 1 Each PO DAILY Sensipar (Cinacalcet Hcl) 60 Mg Tablet 60 Mg PO DAILY Amlodipine Besylate 10 Mg Tablet 10 Mg PO DAILY Simvastatin 20 Mg Tablet 20 Mg PO HS Lisinopril 40 Mg Tablet 1 Tab PO BID Novolog (Insulin Aspart) 100 Unit/1 Ml Vial 100 Unit SQ sliding scale Lantus Solostar (Insulin Glargine,Hum.rec.anlog) 100 Unit/1 Ml Insuln.pen 16 Unit SQ HS Allergies Allergies: Coded Allergies: Penicillins (Verified Adverse Reaction, Mild, Nausea, 02/05/19) ROS Review of System sleepy from anesthesia postop limited ROS Physical Exam General: No acute distress HEENT: PERRLA, Mucous membr. moist/pink Lungs: Clear to auscultation, Normal air movement Heart: Regular rate, Normal S1, Normal S2, No murmurs Abdomen: Normal bowel sounds, Soft, Other (post op tenderness, abdominal binder, ice packing) Extremities: No clubbing, No cyanosis, No edema, Normal pulses, No tenderness/swelling Skin: No rashes, No breakdown Neuro: Normal gait, Normal speech, Normal tone, Sensation intact, Reflexes 2+ Psych/Mental Status: Mental status NL, Mood NL Vitals VITALS Vital Signs Date Time Temp Pulse Resp B/P (MAP) Pulse Ox O2 Delivery O2 Flow Rate FiO2 02/05/19 12:48 Nasal Cannula 2.0 02/05/19 11:58 18 99 02/05/19 11:45 97.9 68 132/68 97.9 Labs Labs Laboratory Tests Test 02/05/19 07:15 02/05/19 10:59 02/05/19 12:17 White Blood Count 7.9 x10^3/uL (4.0-11.0) Red Blood Count 2.41 x10^6/uL (4.30-5.70) Hemoglobin 6.8 g/dL (13.0-17.5) Hematocrit 20.3 % (39.0-53.0) Mean Corpuscular Volume 84 fL (79-100) Mean Corpuscular Hemoglobin 28 pg (25-35) Mean Corpuscular Hemoglobin Concent 34 g/dL (31-37) Red Cell Distribution Width 18.1 % (11.5-14.5) Platelet Count 245 x10^3/uL (140-400) Neutrophils (%) (Auto) 73 % (31-73) Lymphocytes (%) (Auto) 12 % (24-48) Monocytes (%) (Auto) 7 % (0-9) Eosinophils (%) (Auto) 7 % (0-3) Basophils (%) (Auto) 1 % (0-3) Neutrophils # (Auto) 5.8 x10^3uL (1.8-7.7) Lymphocytes # (Auto) 1.0 x10^3/uL (1.0-4.8) Monocytes # (Auto) 0.5 x10^3/uL (0.0-1.1) Eosinophils # (Auto) 0.6 x10^3/uL (0.0-0.7) Basophils # (Auto) 0.0 x10^3/uL (0.0-0.2) Sodium Level 138 mmol/L (136-145) Potassium Level 4.7 mmol/L (3.5-5.1) Chloride Level 99 mmol/L (98-107) Carbon Dioxide Level 30 mmol/L (21-32) Anion Gap 9 (6-14) Blood Urea Nitrogen 34 mg/dL (8-26) Creatinine 7.7 mg/dL (0.7-1.3) Estimated GFR (Cockcroft-Gault) 9.6 Glucose Level 202 mg/dL (70-99) Calcium Level 9.2 mg/dL (8.5-10.1) Albumin 3.3 g/dL (3.4-5.0) Glucose (Fingerstick) 76 mg/dL (70-99) 84 mg/dL (70-99) Laboratory Tests Test 02/05/19 07:15 02/05/19 10:59 02/05/19 12:17 White Blood Count 7.9 x10^3/uL (4.0-11.0) Red Blood Count 2.41 x10^6/uL (4.30-5.70) Hemoglobin 6.8 g/dL (13.0-17.5) Hematocrit 20.3 % (39.0-53.0) Mean Corpuscular Volume 84 fL (79-100) Mean Corpuscular Hemoglobin 28 pg (25-35) Mean Corpuscular Hemoglobin Concent 34 g/dL (31-37) Red Cell Distribution Width 18.1 % (11.5-14.5) Platelet Count 245 x10^3/uL (140-400) Neutrophils (%) (Auto) 73 % (31-73) Lymphocytes (%) (Auto) 12 % (24-48) Monocytes (%) (Auto) 7 % (0-9) Eosinophils (%) (Auto) 7 % (0-3) Basophils (%) (Auto) 1 % (0-3) Neutrophils # (Auto) 5.8 x10^3uL (1.8-7.7) Lymphocytes # (Auto) 1.0 x10^3/uL (1.0-4.8) Monocytes # (Auto) 0.5 x10^3/uL (0.0-1.1) Eosinophils # (Auto) 0.6 x10^3/uL (0.0-0.7) Basophils # (Auto) 0.0 x10^3/uL (0.0-0.2) Sodium Level 138 mmol/L (136-145) Potassium Level 4.7 mmol/L (3.5-5.1) Chloride Level 99 mmol/L (98-107) Carbon Dioxide Level 30 mmol/L (21-32) Anion Gap 9 (6-14) Blood Urea Nitrogen 34 mg/dL (8-26) Creatinine 7.7 mg/dL (0.7-1.3) Estimated GFR (Cockcroft-Gault) 9.6 Glucose Level 202 mg/dL (70-99) Calcium Level 9.2 mg/dL (8.5-10.1) Albumin 3.3 g/dL (3.4-5.0) Glucose (Fingerstick) 76 mg/dL (70-99) 84 mg/dL (70-99) Assessment/Plan Assessment/Plan Malfunctioning PD catheter, removed by GS intra op-02/05/19 ESRD. prev PD, now HD through right subclavian since November 2018 Anemia of ESRD Acute precipitous drop in hemoglobin-hemoglobin 6.8 with specific orders of no transfusion from renal Hypertension Diabetes type 1 since age 6 with end organ damage-namely ESRD PLAN: post op Pain control Liquid diet then ADA T Home meds have been reconciled HD per renal, he already has been getting OP HD cont aranesp LAbs tmr dw fam member at bedside CAROLINA CARCAMO MD Feb 05, 2019 13:39
[2019-02-05] MEDS ORDERED: DEXTROSE 50% 25 GM / 50ML DISP.SYRIN. IV PRN (13:45)
[2019-02-05] MEDS: oxyCODONE/APAP 5/325 1 TAB TABLET PO PRN ×3 (14:47→23:28)
[2019-02-05] MEDS: FUROSEMIDE 80 MG TABLET. PO SCH (14:48)
[2019-02-05] MEDS: PANTOPRAZOLE 40 MG TABLET.DR. PO SCH (14:50)
[2019-02-05] MEDS: CARVEDILOL 12.5 MG TABLET. PO SCH (16:47)
[2019-02-05] MEDS ORDERED: INSULIN LISPRO 300 UNITS/3 ML INSULN.PEN. SQ SCH (17:00)
[2019-02-05] MEDS: ONDANSETRON PF 4 MG/2 ML VIAL. IV PRN ×2 (17:10→23:28)
--- NOTE | 2019-02-05 17:32 | RAD ---
AP view of the abdomen Clinical indications: Postoperative study after hernia repair FINDINGS: Dialysis catheter is seen entering the right side of the pelvis and courses towards the left side of the pelvis into the left mid abdomen. Mild fecal retention is seen. No post operative ileus or bowel obstruction is evident. IMPRESSION: No postoperative functional ileus or bowel obstruction. Dialysis catheter present. Electronically signed by: Anant Dupree MD (02/05/2019 5:29 PM) [id number]
[2019-02-05] MEDS: DOCUSATE SODIUM 100 MG CAPSULE. PO SCH (20:53)
[2019-02-05] MEDS: LISINOPRIL 20 MG TABLET PO SCH (20:53)
[2019-02-05] MEDS: INSULIN GLARGINE 300 UNITS/3 ML INSULN.PEN. SQ SCH (20:59)
[2019-02-05] MEDS ORDERED: DOCUSATE SODIUM 100 MG CAPSULE. PO SCH (21:00)
[2019-02-05] MEDS ORDERED: INSULIN LISPRO 300 UNITS/3 ML INSULN.PEN. SQ ONE (21:00)
[2019-02-05] MEDS: SIMVASTATIN 20 MG TABLET PO SCH (21:01)
[2019-02-05] MEDS: diphenhydrAMINE HCL 25 MG CAPSULE PO PRN (21:01)
[2019-02-05] MEDS: HEPARIN for SUB-Q USE 5,000 UNIT/ML VIAL. SQ SCH (22:00)
[2019-02-06 03:00] VITALS: BP 182/97
[2019-02-06] MEDS: HYDROmorphone 2 MG/ML VIAL IV PRN ×4 (03:00→22:54)
[2019-02-06] MEDS ORDERED: DEXTROSE 50% 25 GM / 50ML DISP.SYRIN. IV PRN (03:30)
[2019-02-06] MEDS: diphenhydrAMINE HCL 25 MG CAPSULE PO PRN (03:38)
[2019-02-06] MEDS: oxyCODONE/APAP 5/325 1 TAB TABLET PO PRN ×3 (03:38→21:15)
[2019-02-06] MEDS ORDERED: INSULIN LISPRO 300 UNITS/3 ML INSULN.PEN. SQ ONE (04:00)
[2019-02-06 05:41] LABS: BASO % 0 % (0-3); EOS % 0 % (0-3); LYMPH # 0.8 x10^3/uL (1.0-4.8); LYMPH % 6 % (24-48); MEAN CORPUSCULAR HEMOGLOBIN 28 pg (25-35); MEAN CORPUSCULAR HGB CONC 32 g/dL (31-37); MEAN CORPUSCULAR VOLUME 86 fL (79-100); MONO # 0.7 x10^3/uL (0.0-1.1); MONO % 5 % (0-9); NEUT # 12.7 x10^3uL (1.8-7.7); NEUT % 89 % (31-73); PLATELET COUNT 279 x10^3/uL (140-400); RED BLOOD COUNT 2.41 x10^6/uL (4.30-5.70); RED CELL DISTRIBUTION WIDTH 18.4 % (11.5-14.5); WHITE BLOOD COUNT 14.2 x10^3/uL (4.0-11.0)
[2019-02-06 05:47] LABS: CALCIUM 9.3 mg/dL (8.5-10.1); GFR 7.1
[2019-02-06 05:52] LABS: POTASSIUM 7.6 mmol/L (3.5-5.1)
[2019-02-06 06:18] LABS: HEMATOCRIT 20.7 % (39.0-53.0); HEMOGLOBIN 6.7 g/dL (13.0-17.5)
[2019-02-06] MEDS: PANTOPRAZOLE 40 MG TABLET.DR. PO SCH (06:58)
[2019-02-06] MEDS: HEPARIN for SUB-Q USE 5,000 UNIT/ML VIAL. SQ SCH ×3 (07:03→21:20)
[2019-02-06] MEDS ORDERED: CALCIUM GLUCONATE 1,000 MG/10 ML VIAL. IVP ONE (07:15)
[2019-02-06] MEDS ORDERED: IV NORMAL SALINE 1000ML BAG 1,000 ML IV PRN ×2 (07:34)
[2019-02-06 07:45] VITALS: BP 163/90
[2019-02-06] MEDS ORDERED: 0.9 % SODIUM CHLORIDE 10 ML DISP.SYRIN. IV PRN ×2 (07:45)
[2019-02-06] MEDS ORDERED: DIALYSIS PATIENT. MC PRN ×2 (07:45)
[2019-02-06] MEDS ORDERED: ALBUMIN HUMAN 25% 200 ML IV PRN (07:45)
[2019-02-06] MEDS: CARVEDILOL 12.5 MG TABLET. PO SCH ×2 (08:00→17:15)
[2019-02-06] MEDS: SEVELAMER CARBONATE 800 MG TABLET. PO SCH ×3 (08:00→17:00)
[2019-02-06] MEDS: INSULIN LISPRO 300 UNITS/3 ML INSULN.PEN. SQ SCH ×3 (08:00→17:18)
--- NOTE | 2019-02-06 08:26 | PDOC ---
SURGICAL PROGRESS NOTE Subjective sleepy but opens eyes and nods to questions states adequate pain control Vital Signs Vital Signs Date Time Temp Pulse Resp B/P (MAP) Pulse Ox O2 Delivery O2 Flow Rate FiO2 02/06/19 07:45 98.9 95 20 163/90 (114) 94 Nasal Cannula 2.0 98.9 I&O Intake and Output 02/06/19 06:59 Intake Total 915 ml Output Total 240 ml Balance 675 ml Intake Oral 315 ml IV Total 600 ml Output Drainage Total 190 ml Estimated Blood Loss 50 ml PATIENT HAS A MARSHALL: No Abdomen: Other (binder on, small amount of serosanguineous drainage in bulb) Labs Laboratory Tests Test 02/05/19 07:15 02/05/19 10:59 02/05/19 12:17 02/05/19 15:03 White Blood Count 7.9 x10^3/uL (4.0-11.0) Red Blood Count 2.41 x10^6/uL (4.30-5.70) Hemoglobin 6.8 g/dL (13.0-17.5) Hematocrit 20.3 % (39.0-53.0) Mean Corpuscular Volume 84 fL (79-100) Mean Corpuscular Hemoglobin 28 pg (25-35) Mean Corpuscular Hemoglobin Concent 34 g/dL (31-37) Red Cell Distribution Width 18.1 % (11.5-14.5) Platelet Count 245 x10^3/uL (140-400) Neutrophils (%) (Auto) 73 % (31-73) Lymphocytes (%) (Auto) 12 % (24-48) Monocytes (%) (Auto) 7 % (0-9) Eosinophils (%) (Auto) 7 % (0-3) Basophils (%) (Auto) 1 % (0-3) Neutrophils # (Auto) 5.8 x10^3uL (1.8-7.7) Lymphocytes # (Auto) 1.0 x10^3/uL (1.0-4.8) Monocytes # (Auto) 0.5 x10^3/uL (0.0-1.1) Eosinophils # (Auto) 0.6 x10^3/uL (0.0-0.7) Basophils # (Auto) 0.0 x10^3/uL (0.0-0.2) Sodium Level 138 mmol/L (136-145) Potassium Level 4.7 mmol/L (3.5-5.1) Chloride Level 99 mmol/L (98-107) Carbon Dioxide Level 30 mmol/L (21-32) Anion Gap 9 (6-14) Blood Urea Nitrogen 34 mg/dL (8-26) Creatinine 7.7 mg/dL (0.7-1.3) Estimated GFR (Cockcroft-Gault) 9.6 Glucose Level 202 mg/dL (70-99) Calcium Level 9.2 mg/dL (8.5-10.1) Albumin 3.3 g/dL (3.4-5.0) Glucose (Fingerstick) 76 mg/dL (70-99) 84 mg/dL (70-99) 165 mg/dL (70-99) Test 02/05/19 16:32 02/05/19 20:45 02/06/19 03:18 02/06/19 04:20 Glucose (Fingerstick) 200 mg/dL (70-99) 294 mg/dL (70-99) 369 mg/dL (70-99) White Blood Count 14.2 x10^3/uL (4.0-11.0) Red Blood Count 2.41 x10^6/uL (4.30-5.70) Hemoglobin 6.7 g/dL (13.0-17.5) Hematocrit 20.7 % (39.0-53.0) Mean Corpuscular Volume 86 fL (79-100) Mean Corpuscular Hemoglobin 28 pg (25-35) Mean Corpuscular Hemoglobin Concent 32 g/dL (31-37) Red Cell Distribution Width 18.4 % (11.5-14.5) Platelet Count 279 x10^3/uL (140-400) Neutrophils (%) (Auto) 89 % (31-73) Lymphocytes (%) (Auto) 6 % (24-48) Monocytes (%) (Auto) 5 % (0-9) Eosinophils (%) (Auto) 0 % (0-3) Basophils (%) (Auto) 0 % (0-3) Neutrophils # (Auto) 12.7 x10^3uL (1.8-7.7) Lymphocytes # (Auto) 0.8 x10^3/uL (1.0-4.8) Monocytes # (Auto) 0.7 x10^3/uL (0.0-1.1) Eosinophils # (Auto) 0.0 x10^3/uL (0.0-0.7) Basophils # (Auto) 0.0 x10^3/uL (0.0-0.2) Sodium Level 134 mmol/L (136-145) Potassium Level 7.6 mmol/L (3.5-5.1) Chloride Level 96 mmol/L (98-107) Carbon Dioxide Level 20 mmol/L (21-32) Anion Gap 18 (6-14) Blood Urea Nitrogen 55 mg/dL (8-26) Creatinine 10.0 mg/dL (0.7-1.3) Estimated GFR (Cockcroft-Gault) 7.1 Glucose Level 373 mg/dL (70-99) Calcium Level 9.3 mg/dL (8.5-10.1) Test 02/06/19 07:26 Glucose (Fingerstick) 326 mg/dL (70-99) Laboratory Tests Test 02/05/19 10:59 02/05/19 12:17 02/05/19 15:03 02/05/19 16:32 Glucose (Fingerstick) 76 mg/dL (70-99) 84 mg/dL (70-99) 165 mg/dL (70-99) 200 mg/dL (70-99) Test 02/05/19 20:45 02/06/19 03:18 02/06/19 04:20 02/06/19 07:26 Glucose (Fingerstick) 294 mg/dL (70-99) 369 mg/dL (70-99) 326 mg/dL (70-99) White Blood Count 14.2 x10^3/uL (4.0-11.0) Red Blood Count 2.41 x10^6/uL (4.30-5.70) Hemoglobin 6.7 g/dL (13.0-17.5) Hematocrit 20.7 % (39.0-53.0) Mean Corpuscular Volume 86 fL (79-100) Mean Corpuscular Hemoglobin 28 pg (25-35) Mean Corpuscular Hemoglobin Concent 32 g/dL (31-37) Red Cell Distribution Width 18.4 % (11.5-14.5) Platelet Count 279 x10^3/uL (140-400) Neutrophils (%) (Auto) 89 % (31-73) Lymphocytes (%) (Auto) 6 % (24-48) Monocytes (%) (Auto) 5 % (0-9) Eosinophils (%) (Auto) 0 % (0-3) Basophils (%) (Auto) 0 % (0-3) Neutrophils # (Auto) 12.7 x10^3uL (1.8-7.7) Lymphocytes # (Auto) 0.8 x10^3/uL (1.0-4.8) Monocytes # (Auto) 0.7 x10^3/uL (0.0-1.1) Eosinophils # (Auto) 0.0 x10^3/uL (0.0-0.7) Basophils # (Auto) 0.0 x10^3/uL (0.0-0.2) Sodium Level 134 mmol/L (136-145) Potassium Level 7.6 mmol/L (3.5-5.1) Chloride Level 96 mmol/L (98-107) Carbon Dioxide Level 20 mmol/L (21-32) Anion Gap 18 (6-14) Blood Urea Nitrogen 55 mg/dL (8-26) Creatinine 10.0 mg/dL (0.7-1.3) Estimated GFR (Cockcroft-Gault) 7.1 Glucose Level 373 mg/dL (70-99) Calcium Level 9.3 mg/dL (8.5-10.1) K+ level noted d/w Dr Parks this AM and Excell is on his way to HD soon Assessment/Plan POD 1 attempted placement of PD catheter ESRD hyperkalemia continue supportive care PONCHO STRANGE MD Feb 06, 2019 08:26
[2019-02-06] MEDS: FLUTICASONE 50MCG/NASAL SPRAY 16GM BOTTLE. NS SCH (09:00)
[2019-02-06] MEDS: cloNIDine HCL 0.2 MG TABLET PO SCH ×2 (09:00→21:13)
[2019-02-06] MEDS: FUROSEMIDE 80 MG TABLET. PO SCH ×2 (09:00→14:31)
[2019-02-06] MEDS: SENNOSIDES 8.6 MG TABLET PO SCH ×2 (09:00→21:14)
[2019-02-06] MEDS: LISINOPRIL 20 MG TABLET PO SCH ×2 (09:00→21:14)
[2019-02-06] MEDS: DOCUSATE SODIUM 100 MG CAPSULE. PO SCH ×2 (09:00→21:13)
[2019-02-06 10:40] LABS: CALCIUM 8.7 mg/dL (8.5-10.1); CREATININE 7.6 mg/dL (0.7-1.3); GFR 9.8; POTASSIUM 5.6 mmol/L (3.5-5.1)
--- NOTE | 2019-02-06 11:30 | PDOC2 ---
CONSULT Date of Consult Date of Consult DATE: 02/06/19 TIME: 11:23 Reason for Consult Reason for Consult: ESRD Referring Physician Referring Physician: ALIE Identification/Chief Complaint Chief Complaint NON WORKING PD CATHETER. Source Source: Chart review History of Present Illness Reason for Visit: THIS IS A 38 YR OLD ESRD PT ON PD. HAS HAS RECURRENT PROBLEMS WITH PD CATHETER NOT WORKING WELL. EXP PROCEDURE WAS TURNED INTO AN OPEN CASE AND HE WAS FOUND TO HAVE SIGNIFICANT ADHESIONS AND IT WAS FELT THAT PD WOULD NO LONGER BE AN OPTION FOR THIS PT IN THE FUTURE. HIS PD CATHETER WAS THEN REMOVED. HE HAS BEEN DOING HD TEMPORARILY HOPING TO GET BACK TO PD. HE HAS A TUNNELED HD CATHETER IN PLACE. HGB VERY LOW AT ABOUT 6.5. LABS OTHER CLOUD C/W ESRD. ESRD IS DUE TO DM II AND HTN. CASE WAS D/W DR STRANGE Past Medical History Cardiovascular: HTN, [place], Syncope Heme/Onc: Anemia NOS Renal/: Chronic renal failure Endocrine: Diabetes, Hyperparathyroidism Past Surgical History Past Surgical History: Hernia Repair, Other (HD cath Rt subclavian) Family History Family History: No Significant Social History No ALCOHOL: none Drugs: None Lives: with Family Current Medications Current Medications Current Medications Heparin Sodium (Porcine) 5000 unit/Sodium Chloride 505 ml @ 505 mls/hr 1X ONCE IRR Last administered on 02/05/19at 07:52; Start 02/05/19 at 06:00; Stop 02/05/19 at 06:59; Status DC Ondansetron HCl (Zofran) 4 mg PRN Q6HRS PRN IV NAUSEA/VOMITING; Start 02/05/19 at 07:00; Stop 02/05/19 at 20:00; Status DC Fentanyl Citrate (Fentanyl 2ml Vial) 25 mcg PRN Q5MIN PRN IV MILD PAIN; Start 02/05/19 at 07:00; Stop 02/05/19 at 20:00; Status DC Fentanyl Citrate (Fentanyl 2ml Vial) 50 mcg PRN Q5MIN PRN IV MODERATE TO SEVERE PAIN Last administered on 02/05/19at 11:58; Start 02/05/19 at 07:00; Stop 02/05/19 at 20:00; Status DC Morphine Sulfate (Morphine Sulfate) 1 mg PRN Q10MIN PRN IV SEVERE PAIN; Start 02/05/19 at 07:00; Stop 02/05/19 at 20:00; Status DC Ringer's Solution 1,000 ml @ 30 mls/hr Q24H IV ; Start 02/05/19 at 07:00; Stop 02/05/19 at 18:59; Status Cancel Lidocaine HCl (Xylocaine-Mpf 1% 2ml Vial) 2 ml PRN 1X PRN ID PRIOR TO IV START; Start 02/05/19 at 07:00; Stop 02/05/19 at 20:00; Status DC Hydromorphone HCl (Dilaudid) 0.5 mg PRN Q10MIN PRN IV SEV PAIN, Second choice; Start 02/05/19 at 07:00; Stop 02/05/19 at 20:00; Status DC Prochlorperazine Edisylate (Compazine) 5 mg PACU PRN PRN IV NAUSEA, MRX1; Start 02/05/19 at 07:00; Stop 02/05/19 at 20:00; Status DC Levofloxacin/ Dextrose 100 ml @ 100 mls/hr 1X PREOP PRN IV PRIOR TO PROCEDURE Last administered on 02/05/19at 07:35; Start 02/05/19 at 06:00; Stop 02/05/19 at 18:00; Status DC Propofol 20 ml @ As Directed STK-MED ONCE IV ; Start 02/05/19 at 07:21; Stop 02/05/19 at 07:22; Status DC Lidocaine HCl (Lidocaine Pf 2% Vial) 5 ml STK-MED ONCE .ROUTE ; Start 02/05/19 at 07:21; Stop 02/05/19 at 07:22; Status DC Ondansetron HCl (Zofran) 4 mg STK-MED ONCE .ROUTE ; Start 02/05/19 at 07:21; Stop 02/05/19 at 07:22; Status DC Dexamethasone Sodium Phosphate (Decadron) 4 mg STK-MED ONCE .ROUTE ; Start 02/05/19 at 07:21; Stop 02/05/19 at 07:22; Status DC Sevoflurane (Ultane) 30 ml STK-MED ONCE IH ; Start 02/05/19 at 07:21; Stop 02/05/19 at 07:22; Status DC Rocuronium [place] (Zemuron) 50 mg STK-MED ONCE .ROUTE ; Start 02/05/19 at 07:21; Stop 02/05/19 at 07:22; Status DC Neostigmine Methylsulfate (Neostigmine Methylsulfate) 5 mg STK-MED ONCE .ROUTE ; Start 02/05/19 at 07:21; Stop 02/05/19 at 07:22; Status DC Glycopyrrolate (Robinul) 1 mg STK-MED ONCE .ROUTE ; Start 02/05/19 at 07:21; Stop 02/05/19 at 07:22; Status DC Bupivacaine HCl/ Epinephrine Bitart (Sensorcain-Mpf Epi 0.5%-[id number]) 30 ml STK-MED ONCE .ROUTE Last administered on 02/05/19at 07:51; Start 02/05/19 at 06:30; Stop 02/05/19 at 07:30; Status DC Sodium Chloride 1,000 ml @ 75 mls/hr [id number] IV Last administered on 02/05/19at 07:39; Start 02/05/19 at 07:45; Stop 02/06/19 at 03:36; Status DC Insulin Human Lispro (HumaLOG VIAL) 4 unit 1X ONCE SQ Last administered on 02/05/19at 07:59; Start 02/05/19 at 08:00; Stop 02/05/19 at 08:01; Status DC Diphenhydramine HCl (Benadryl) 25 mg PRN Q6HRS PRN PO ITCHING Last administered on 02/06/19at 03:38; Start 02/05/19 at 10:30 Heparin Sodium (Porcine) (Heparin Sodium) 5,000 unit Q8HRS SQ Last administered on 02/06/19at 07:03; Start 02/05/19 at 22:00 Sodium Chloride (Normal Saline Flush) 3 ml QSHIFT PRN IV AFTER MEDS AND BLOOD DRAWS; Start 02/05/19 at 10:30 Sodium Chloride 1,000 ml @ 50 mls/hr Q20H IV Last administered on 02/05/19at 20:52; Start 02/05/19 at 10:30 Oxycodone/ Acetaminophen (Percocet 5/325) 1 tab PRN Q4HRS PRN PO MILD PAIN, 1ST CHOICE; Start 02/05/19 at 10:30 Oxycodone/ Acetaminophen (Percocet 5/325) 2 tab PRN Q4HRS PRN PO MODERATE PAIN, SEVERE PAIN Last administered on 02/06/19 03:38; Start 02/05/19 at 10:30 Hydromorphone HCl (Dilaudid) 1 mg PRN Q3HRS PRN IV PAIN Last administered on 02/06/19at 03:00; Start 02/05/19 at 10:30 Docusate Sodium (Colace) 100 mg BID PO ; Start 02/05/19 at 21:00; Status UNV Ondansetron HCl (Zofran) 4 mg PRN Q6HRS PRN IV NAUESA, 1ST CHOICE Last administered on 02/05/19at 23:28; Start 02/05/19 at 10:30 Amlodipine Besylate (Norvasc) 10 mg DAILY PO ; Start 02/05/19 at 12:00 Calcium Carbonate/ Glycine (Tums) 250 mg PRN BID PRN PO INDIGESTION; Start 02/05/19 at 10:45 Clonidine HCl (Catapres) 0.2 mg BID PO Last administered on 02/05/19at 20:54; Start 02/05/19 at 12:00 Docusate Sodium (Colace) 100 mg BID PO Last administered on 02/05/19 20:53; Start 02/05/19 at 21:00 Furosemide (Lasix) 80 mg [id number] PO Last administered on 02/05/19 14:48; Start 02/05/19 at 14:00 Insulin Glargine (Lantus) 16 units HS SQ Last administered on 02/05/19 20:59; Start 02/05/19 at 21:00 Lisinopril (Prinivil) 40 mg BID PO Last administered on 02/05/19 20:53; Start 02/05/19 at 21:00 Sevelamer Carbonate (Renvela) 4,000 mg TIDWMEALS PO ; Start 02/05/19 at 12:00 Non-Formulary Medication (Albuterol Sulfate (Proair Respiclick)) one to two puffs q6hrs ... PRN Q6HRS PRN IH SHORTNESS OF BREATH; Start 02/05/19 at 10:45; Status UNV Calcitriol (Rocaltrol) 0.5 mcg DAILY PO ; Start 02/05/19 at 13:00 Carvedilol (Coreg) 25 mg BIDWMEALS PO Last administered on 02/05/19at 16:47; Start 02/05/19 at 17:00 Vitamin D (Vitamin D3) 5,000 unit DAILY PO ; Start 02/05/19 at 13:00 Cinacalcet (Sensipar) 60 mg DAILY PO ; Start 02/05/19 at 13:00 Darbepoetin David (Aranesp) 25 mcg Th SQ ; Start 02/12/19 at 21:00 Fluticasone Propionate (Flonase) 2 spray DAILY NS ; Start 02/06/19 at 09:00 Pantoprazole Sodium (Protonix) 40 mg DAILYAC PO Last administered on 02/06/19at 06:58; Start 02/05/19 at 16:30 Polyethylene Glycol (miraLAX PACKET) 17 gm DAILY PO ; Start 02/05/19 at 13:00 Sennosides (Senna) 8.6 mg BID PO Last administered on 02/05/19at 20:53; Start 02/05/19 at 11:45 Simvastatin (Zocor) 20 mg HS PO Last administered on 02/05/19at 21:01; Start 02/05/19 at 21:00 Vitamin B Complex/ Vitamin C (Johanna-Celia) 1 tab DAILY PO ; Start 02/05/19 at 13:00 Fentanyl Citrate (Fentanyl 2ml Vial) 100 mcg STK-MED ONCE .ROUTE ; Start 02/05/19 at 11:11; Stop 02/05/19 at 11:12; Status DC Albuterol Sulfate (Ventolin Neb Soln) 2.5 mg PRN Q6HRS PRN NEB SHORTNESS OF BREATH; Start 02/05/19 at 11:45 Fentanyl Citrate (Fentanyl 2ml Vial) 100 mcg STK-MED ONCE .ROUTE ; Start 02/05/19 at 11:56; Stop 02/05/19 at 11:57; Status DC Darbepoetin David (Aranesp) 100 mcg 1X ONCE SQ Last administered on 02/05/19at 14:48; Start 02/05/19 at 13:00; Stop 02/05/19 at 13:12; Status DC Acetaminophen (Tylenol) 500 mg PRN Q6HRS PRN PO MILD PAIN / TEMP; Start 02/05/19 at 13:30 Zolpidem Tartrate (Ambien) 5 mg PRN QHS PRN PO INSOMNIA; Start 02/05/19 at 13:30 Insulin Human Lispro (HumaLOG) 0-9 UNITS TIDWMEALS SQ ; Start 02/05/19 at 17:00; Stop 02/06/19 at 03:37; Status DC Dextrose (Dextrose 50%-Water Syringe) 12.5 gm PRN Q15MIN PRN IV SEE COMMENTS; Start 02/05/19 at 13:45; Stop 02/06/19 at 03:36; Status DC Insulin Human Lispro (HumaLOG) 4 units 1X ONCE SQ Last administered on 02/05/19at 20:59; Start 02/05/19 at 21:00; Stop 02/05/19 at 21:01; Status DC Insulin Human Lispro (HumaLOG) 12 units 1X ONCE SQ Last administered on 02/06/19at 03:42; Start 02/06/19 at 04:00; Stop 02/06/19 at 04:01; Status DC Insulin Human Lispro (HumaLOG) 0-9 UNITS TIDWMEALS SQ ; Start 02/06/19 at 08:00 Dextrose (Dextrose 50%-Water Syringe) 12.5 gm PRN Q15MIN PRN IV SEE COMMENTS; Start 02/06/19 at 03:30 Calcium Gluconate (Calcium Gluconate) 1,000 mg 1X ONCE IVP ; Start 02/06/19 at 07:15; Stop 02/06/19 at 07:16; Status DC Sodium Chloride 1,000 ml @ 1,000 mls/hr Q1H PRN IV hypotension; Start 02/06/19 at 07:34; Stop 02/06/19 at 13:33 Albumin Human 200 ml @ 200 mls/hr 1X PRN PRN IV Hypotension; Start 02/06/19 at 07:45; Stop 02/06/19 at 13:44 Sodium Chloride (Normal Saline Flush) 10 ml 1X PRN PRN IV AP catheter pack; Start 02/06/19 at 07:45; Stop 02/07/19 at 07:44 Sodium Chloride (Normal Saline Flush) 10 ml 1X PRN PRN IV [employer] catheter pack; Start 02/06/19 at 07:45; Stop 02/07/19 at 07:44 Sodium Chloride 1,000 ml @ 400 mls/hr Q2H30M PRN IV PATENCY; Start 02/06/19 at 07:34; Stop 02/06/19 at 19:33 Info (PHARMACY MONITORING -- do not chart) 1 each PRN DAILY PRN MC SEE COMMENTS; Start 02/06/19 at 07:45; Status UNV Info (PHARMACY MONITORING -- do not chart) 1 each PRN DAILY PRN MC SEE COMMENT S; Start 02/06/19 at 07:45 Active Scripts Active Percocet 5-325 Mg Tablet (Oxycodone/Acetaminophen) 1 Each Tablet 1 Tab PO PRN Q6HRS PRN Ondansetron Odt (Ondansetron) 4 Mg Tab.rapdis 1 Tab PO PRN Q6-8HRS PRN Reported Protonix (Pantoprazole Sodium) 20 Mg Tablet.dr 2 Tab PO DAILY Flonase Allergy Relief (Fluticasone Propionate) 9.9 Ml Archer.susp 2 Sprays NS DAILY Procrit (Epoetin David) 10,000 Unit/1 Ml Vial 10,000 Unit IJ QSU Tums (Calcium Carbonate) 200 Mg Tab.chew 200 Mg PO BID PRN Proair Respiclick (Albuterol Sulfate) 90 Mcg Aer.pow.ba 1-2 Puff IH PRN Q6HRS PRN Senna (Sennosides) 8.6 Mg Tablet 8.6 Mg PO BID Miralax (Polyethylene Glycol 3350) 17 Gm Powd.pack 1 Packet PO DAILY Colace (Docusate Sodium) 100 Mg Capsule 1 Cap PO BID Carvedilol 25 Mg Tablet 25 Mg PO BIDWMEALS Renvela (Sevelamer Carbonate) 800 Mg Tablet 5 Tab PO TIDWMEALS Furosemide 80 Mg Tablet 1 Tab PO BID Vitamin D (Cholecalciferol (Vitamin D3)) 5,000 Unit Tablet 5,000 Unit PO DAILY Calcitriol 0.25 Mcg Capsule 2 Cap PO DAILY Clonidine Hcl 0.2 Mg Tablet 1 Tab PO BID Johanna-Celia Rx Tablet (Vit B Cmplx 3/Fa/Vit C/Biotin) 1 Each Tablet 1 Each PO DAILY Sensipar (Cinacalcet Hcl) 60 Mg Tablet 60 Mg PO DAILY Amlodipine Besylate 10 Mg Tablet 10 Mg PO DAILY Simvastatin 20 Mg Tablet 20 Mg PO HS Lisinopril 40 Mg Tablet 1 Tab PO BID Novolog (Insulin Aspart) 100 Unit/1 Ml Vial 100 Unit SQ sliding scale Lantus Solostar (Insulin Glargine,Hum.rec.anlog) 100 Unit/1 Ml Insuln.pen 16 Unit SQ HS Allergies Allergies: Coded Allergies: Penicillins (Verified Adverse Reaction, Mild, Nausea, 02/05/19) ROS Review of System SOMNOLENT AFTER PAIN MEDS, UNABLE TO GIVE HX Physical Exam General: Cooperative, No acute distress HEENT: Atraumatic, PERRLA, EOMI, Mucous membr. moist/pink Lungs: Clear to auscultation Heart: Regular rate, Normal S1, Normal S2 Abdomen: Normal bowel sounds, Soft, No tenderness, Other (DRESSING IN PLACE) Extremities: No clubbing, No cyanosis Skin: No breakdown Neuro: Other (SLEEPY) MUSCULOSKELETAL: No deformity, No swelling Vitals VITALS Vital Signs Date Time Temp Pulse Resp B/P (MAP) Pulse Ox O2 Delivery O2 Flow Rate FiO2 02/06/19 07:45 98.9 95 20 163/90 (114) 94 Nasal Cannula 2.0 98.9 Labs Labs Laboratory Tests Test 02/05/19 07:15 02/05/19 10:59 02/05/19 12:17 02/05/19 15:03 White Blood Count 7.9 x10^3/uL (4.0-11.0) Red Blood Count 2.41 x10^6/uL (4.30-5.70) Hemoglobin 6.8 g/dL (13.0-17.5) Hematocrit 20.3 % (39.0-53.0) Mean Corpuscular Volume 84 fL (79-100) Mean Corpuscular Hemoglobin 28 pg (25-35) Mean Corpuscular Hemoglobin Concent 34 g/dL (31-37) Red Cell Distribution Width 18.1 % (11.5-14.5) Platelet Count 245 x10^3/uL (140-400) Neutrophils (%) (Auto) 73 % (31-73) Lymphocytes (%) (Auto) 12 % (24-48) Monocytes (%) (Auto) 7 % (0-9) Eosinophils (%) (Auto) 7 % (0-3) Basophils (%) (Auto) 1 % (0-3) Neutrophils # (Auto) 5.8 x10^3uL (1.8-7.7) Lymphocytes # (Auto) 1.0 x10^3/uL (1.0-4.8) Monocytes # (Auto) 0.5 x10^3/uL (0.0-1.1) Eosinophils # (Auto) 0.6 x10^3/uL (0.0-0.7) Basophils # (Auto) 0.0 x10^3/uL (0.0-0.2) Sodium Level 138 mmol/L (136-145) Potassium Level 4.7 mmol/L (3.5-5.1) Chloride Level 99 mmol/L (98-107) Carbon Dioxide Level 30 mmol/L (21-32) Anion Gap 9 (6-14) Blood Urea Nitrogen 34 mg/dL (8-26) Creatinine 7.7 mg/dL (0.7-1.3) Estimated GFR (Cockcroft-Gault) 9.6 Glucose Level 202 mg/dL (70-99) Calcium Level 9.2 mg/dL (8.5-10.1) Albumin 3.3 g/dL (3.4-5.0) Glucose (Fingerstick) 76 mg/dL (70-99) 84 mg/dL (70-99) 165 mg/dL (70-99) Test 02/05/19 16:32 02/05/19 20:45 02/06/19 03:18 02/06/19 04:20 Glucose (Fingerstick) 200 mg/dL (70-99) 294 mg/dL (70-99) 369 mg/dL (70-99) White Blood Count 14.2 x10^3/uL (4.0-11.0) Red Blood Count 2.41 x10^6/uL (4.30-5.70) Hemoglobin 6.7 g/dL (13.0-17.5) Hematocrit 20.7 % (39.0-53.0) Mean Corpuscular Volume 86 fL (79-100) Mean Corpuscular Hemoglobin 28 pg (25-35) Mean Corpuscular Hemoglobin Concent 32 g/dL (31-37) Red Cell Distribution Width 18.4 % (11.5-14.5) Platelet Count 279 x10^3/uL (140-400) Neutrophils (%) (Auto) 89 % (31-73) Lymphocytes (%) (Auto) 6 % (24-48) Monocytes (%) (Auto) 5 % (0-9) Eosinophils (%) (Auto) 0 % (0-3) Basophils (%) (Auto) 0 % (0-3) Neutrophils # (Auto) 12.7 x10^3uL (1.8-7.7) Lymphocytes # (Auto) 0.8 x10^3/uL (1.0-4.8) Monocytes # (Auto) 0.7 x10^3/uL (0.0-1.1) Eosinophils # (Auto) 0.0 x10^3/uL (0.0-0.7) Basophils # (Auto) 0.0 x10^3/uL (0.0-0.2) Sodium Level 134 mmol/L (136-145) Potassium Level 7.6 mmol/L (3.5-5.1) Chloride Level 96 mmol/L (98-107) Carbon Dioxide Level 20 mmol/L (21-32) Anion Gap 18 (6-14) Blood Urea Nitrogen 55 mg/dL (8-26) Creatinine 10.0 mg/dL (0.7-1.3) Estimated GFR (Cockcroft-Gault) 7.1 Glucose Level 373 mg/dL (70-99) Calcium Level 9.3 mg/dL (8.5-10.1) Test 02/06/19 07:26 02/06/19 10:03 Glucose (Fingerstick) 326 mg/dL (70-99) Sodium Level 137 mmol/L (136-145) Potassium Level 5.6 mmol/L (3.5-5.1) Chloride Level 97 mmol/L (98-107) Carbon Dioxide Level 26 mmol/L (21-32) Anion Gap 14 (6-14) Blood Urea Nitrogen 41 mg/dL (8-26) Creatinine 7.6 mg/dL (0.7-1.3) Estimated GFR (Cockcroft-Gault) 9.8 Glucose Level 289 mg/dL (70-99) Calcium Level 8.7 mg/dL (8.5-10.1) Laboratory Tests Test 02/05/19 12:17 02/05/19 15:03 02/05/19 16:32 02/05/19 20:45 Glucose (Fingerstick) 84 mg/dL (70-99) 165 mg/dL (70-99) 200 mg/dL (70-99) 294 mg/dL (70-99) Test 02/06/19 03:18 02/06/19 04:20 02/06/19 07:26 02/06/19 10:03 Glucose (Fingerstick) 369 mg/dL (70-99) 326 mg/dL (70-99) White Blood Count 14.2 x10^3/uL (4.0-11.0) Red Blood Count 2.41 x10^6/uL (4.30-5.70) Hemoglobin 6.7 g/dL (13.0-17.5) Hematocrit 20.7 % (39.0-53.0) Mean Corpuscular Volume 86 fL (79-100) Mean Corpuscular Hemoglobin 28 pg (25-35) Mean Corpuscular Hemoglobin Concent 32 g/dL (31-37) Red Cell Distribution Width 18.4 % (11.5-14.5) Platelet Count 279 x10^3/uL (140-400) Neutrophils (%) (Auto) 89 % (31-73) Lymphocytes (%) (Auto) 6 % (24-48) Monocytes (%) (Auto) 5 % (0-9) Eosinophils (%) (Auto) 0 % (0-3) Basophils (%) (Auto) 0 % (0-3) Neutrophils # (Auto) 12.7 x10^3uL (1.8-7.7) Lymphocytes # (Auto) 0.8 x10^3/uL (1.0-4.8) Monocytes # (Auto) 0.7 x10^3/uL (0.0-1.1) Eosinophils # (Auto) 0.0 x10^3/uL (0.0-0.7) Basophils # (Auto) 0.0 x10^3/uL (0.0-0.2) Sodium Level 134 mmol/L (136-145) 137 mmol/L (136-145) Potassium Level 7.6 mmol/L (3.5-5.1) 5.6 mmol/L (3.5-5.1) Chloride Level 96 mmol/L (98-107) 97 mmol/L (98-107) Carbon Dioxide Level 20 mmol/L (21-32) 26 mmol/L (21-32) Anion Gap 18 (6-14) 14 (6-14) Blood Urea Nitrogen 55 mg/dL (8-26) 41 mg/dL (8-26) Creatinine 10.0 mg/dL (0.7-1.3) 7.6 mg/dL (0.7-1.3) Estimated GFR (Cockcroft-Gault) 7.1 9.8 Glucose Level 373 mg/dL (70-99) 289 mg/dL (70-99) Calcium Level 9.3 mg/dL (8.5-10.1) 8.7 mg/dL (8.5-10.1) Assessment/Plan Assessment/Plan IMP MALFUNCTIONING PD CATHETER DUE TO DIFFUSE ADHESIONS SEVERE ANEMIA OF ESRD AND BLOOD LOSS DM II HTN ESRD PLAN ARANESP AVOID PRBC IF WE CAN SINCE HE IS SUITABLE TO RENAL TX IN THE FUTURE PD CATHETER HAS BEEN REMOVED HE WILL NOT BE ABLE TO DO PD AGAIN HD TODAY USING HIS TUNNELED HD CATHETER AND UF TO DW WE WILL SCHEDULE FOR HIM TO HAVE AN AV ACCESS PLACED ONCE HGB HAS IMPROVED WILL DO THIS OP D/C ONLY WHEN OK WITH SURGERY WILL FOLLOW ARIANNE UMANA MD Feb 06, 2019 11:29
[2019-02-06] MEDS: CINACALCET HCL 30 MG TABLET PO SCH (14:27)
[2019-02-06] MEDS: CALCITRIOL 0.25 MCG CAPSULE. PO SCH (14:27)
[2019-02-06] MEDS: amLODIPine BESYLATE 10 MG TABLET PO SCH (14:27)
[2019-02-06] MEDS: FOLIC/VIT B COMP W-C (RENAL) TABLET. PO SCH (14:29)
[2019-02-06] MEDS: CHOLECALCIFEROL (VITAMIN D3) 5,000 UNIT CAPSULE PO SCH (14:31)
[2019-02-06] MEDS: POLYETHYLENE GLYCOL 3350 17 GM PACKET. PO SCH (14:32)
[2019-02-06] MEDS: ONDANSETRON PF 4 MG/2 ML VIAL. IV PRN (14:42)
[2019-02-06 15:00] VITALS: BP 168/88
[2019-02-06 19:20] VITALS: BP 181/97
[2019-02-06] MEDS: SIMVASTATIN 20 MG TABLET PO SCH (21:14)
[2019-02-06] MEDS: INSULIN GLARGINE 300 UNITS/3 ML INSULN.PEN. SQ SCH (21:19)
[2019-02-06 23:20] VITALS: BP 176/96
[2019-02-07 03:25] VITALS: BP 162/92
[2019-02-07 05:16] LABS: RED BLOOD COUNT 2.45 x10^6/uL (4.30-5.70); RED CELL DISTRIBUTION WIDTH 17.5 % (11.5-14.5)
[2019-02-07 05:34] LABS: HEMATOCRIT 20.7 % (39.0-53.0); HEMOGLOBIN 6.9 g/dL (13.0-17.5)
[2019-02-07 05:35] LABS: CREATININE 8.4 mg/dL (0.7-1.3); GFR 8.7; POTASSIUM 4.9 mmol/L (3.5-5.1)
[2019-02-07] MEDS: HEPARIN for SUB-Q USE 5,000 UNIT/ML VIAL. SQ SCH ×3 (06:00→21:07)
[2019-02-07 07:30] VITALS: BP 161/91
[2019-02-07] MEDS: INSULIN LISPRO 300 UNITS/3 ML INSULN.PEN. SQ SCH ×3 (08:00→17:00)
[2019-02-07] MEDS: FOLIC/VIT B COMP W-C (RENAL) TABLET. PO SCH (09:05)
[2019-02-07] MEDS: SENNOSIDES 8.6 MG TABLET PO SCH ×2 (09:06→21:01)
[2019-02-07] MEDS: FLUTICASONE 50MCG/NASAL SPRAY 16GM BOTTLE. NS SCH (09:06)
[2019-02-07] MEDS: DOCUSATE SODIUM 100 MG CAPSULE. PO SCH ×2 (09:06→21:01)
[2019-02-07] MEDS: CARVEDILOL 12.5 MG TABLET. PO SCH ×2 (09:06→18:23)
[2019-02-07] MEDS: CHOLECALCIFEROL (VITAMIN D3) 5,000 UNIT CAPSULE PO SCH (09:06)
[2019-02-07] MEDS: PANTOPRAZOLE 40 MG TABLET.DR. PO SCH (09:07)
[2019-02-07] MEDS: cloNIDine HCL 0.2 MG TABLET PO SCH ×2 (09:07→21:02)
[2019-02-07] MEDS: FUROSEMIDE 80 MG TABLET. PO SCH ×2 (09:07→15:50)
[2019-02-07] MEDS: LISINOPRIL 20 MG TABLET PO SCH ×2 (09:07→21:02)
[2019-02-07] MEDS: POLYETHYLENE GLYCOL 3350 17 GM PACKET. PO SCH (09:07)
[2019-02-07] MEDS: CALCITRIOL 0.25 MCG CAPSULE. PO SCH (09:08)
[2019-02-07] MEDS: oxyCODONE/APAP 5/325 1 TAB TABLET PO PRN (09:08)
[2019-02-07] MEDS: CINACALCET HCL 30 MG TABLET PO SCH (09:08)
[2019-02-07] MEDS: amLODIPine BESYLATE 10 MG TABLET PO SCH (09:08)
[2019-02-07] MEDS: SEVELAMER CARBONATE 800 MG TABLET. PO SCH ×3 (09:18→18:23)
--- NOTE | 2019-02-07 11:01 | PDOC ---
PROGRESS NOTES History of Present Illness History of Present Illness Assessment/Plan Assessment/Plan Malfunctioning PD catheter, removed by GS intra op-02/05/19 ESRD. prev PD, now HD through right subclavian since November 2018 Anemia of ESRD Acute precipitous drop in hemoglobin-hemoglobin 6.8 with specific orders of no transfusion from renal Hypertension Diabetes type 1 since age 6 with end organ damage-namely ESRD PLAN: post op Pain control Liquid diet then ADA T Home meds have been reconciled HD per renal, he already has been getting OP HD cont aranesp LAbs tmr dw fam member at bedside Vitals Vitals Vital Signs Date Time Temp Pulse Resp B/P (MAP) Pulse Ox O2 Delivery O2 Flow Rate FiO2 02/07/19 09:08 94 161/91 02/07/19 09:08 95 Nasal Cannula 2.0 02/07/19 07:30 99.3 20 99.3 Physical Exam Physical Exam (binder on, small amount of serosanguineous drainage in bulb) General: Oriented X3, Cooperative, No acute distress, mild distress Heart: Regular rate, Normal S1, Normal S2, No murmurs Lungs: Clear Abdomen: Normal bowel sounds, Soft, No tenderness, Other (DRESSING IN PLACE) Extremities: No clubbing, No cyanosis Skin: No breakdown Labs LABS SEX: M EXAM STATUS: ADM IN ORD. PHYSICIAN: AHSAN STRANGE MD REASON: POST OP KUB IN OR, POST REPOSITION OF DIALYSIS CATH. PROCEDURE: KUB AP view of the abdomen Clinical indications: Postoperative study after hernia repair FINDINGS: Dialysis catheter is seen entering the right side of the pelvis and courses towards the left side of the pelvis into the left mid abdomen. Mild fecal retention is seen. No post operative ileus or bowel obstruction is evident. IMPRESSION: No postoperative functional ileus or bowel obstruction. Dialysis catheter present. Electronically signed by: Ada Dupree MD (02/05/2019 5:29 PM) [place] [id number] DICTATED and SIGNED BY: ADA DUPREE MD DATE: 02/05/19 1729 Laboratory Tests Test 02/06/19 14:01 02/06/19 17:16 02/06/19 20:58 02/07/19 04:30 Glucose (Fingerstick) 216 mg/dL (70-99) 207 mg/dL (70-99) 188 mg/dL (70-99) White Blood Count 11.0 x10^3/uL (4.0-11.0) Red Blood Count 2.45 x10^6/uL (4.30-5.70) Hemoglobin 6.9 g/dL (13.0-17.5) Hematocrit 20.7 % (39.0-53.0) Mean Corpuscular Volume 85 fL (79-100) Mean Corpuscular Hemoglobin 28 pg (25-35) Mean Corpuscular Hemoglobin Concent 33 g/dL (31-37) Red Cell Distribution Width 17.5 % (11.5-14.5) Platelet Count 268 x10^3/uL (140-400) Sodium Level 137 mmol/L (136-145) Potassium Level 4.9 mmol/L (3.5-5.1) Chloride Level 98 mmol/L (98-107) Carbon Dioxide Level 30 mmol/L (21-32) Anion Gap 9 (6-14) Blood Urea Nitrogen 36 mg/dL (8-26) Creatinine 8.4 mg/dL (0.7-1.3) Estimated GFR (Cockcroft-Gault) 8.7 Glucose Level 220 mg/dL (70-99) Calcium Level 9.0 mg/dL (8.5-10.1) Test 02/07/19 07:46 Glucose (Fingerstick) 192 mg/dL (70-99) Review of Systems Review of Systems PATIENT: WILFRED STEVENS ACCOUNT: [id number] : 1980 LOC: [address] [place] [address] AGE: 38 SEX: M STATUS: ADM IN LOCATION: [address] [place] [address] DATE OF SURGERY: 02/05/2019 PREOPERATIVE DIAGNOSIS: End-stage renal disease on hemodialysis with malfunctioning peritoneal dialysis catheter. POSTOPERATIVE DIAGNOSIS: End-stage renal disease on hemodialysis with malfunctioning peritoneal dialysis catheter. PROCEDURE: Laparoscopic converted to open exploration with removal of old PD catheter and lysis of adhesions. SURGEON: Ahsan Strange MD FOOD PREPARER: DAGOBERTO Carnes. ANESTHESIA: General endotracheal. ESTIMATED BLOOD LOSS: 50 mL. Comment Review of Relevant I have reviewed the following items javy (where applicable) has been applied. Labs Laboratory Tests Test 02/05/19 12:17 02/05/19 15:03 02/05/19 16:32 02/05/19 20:45 Glucose (Fingerstick) 84 mg/dL (70-99) 165 mg/dL (70-99) 200 mg/dL (70-99) 294 mg/dL (70-99) Test 02/06/19 03:18 02/06/19 04:20 02/06/19 07:26 02/06/19 10:03 Glucose (Fingerstick) 369 mg/dL (70-99) 326 mg/dL (70-99) White Blood Count 14.2 x10^3/uL (4.0-11.0) Red Blood Count 2.41 x10^6/uL (4.30-5.70) Hemoglobin 6.7 g/dL (13.0-17.5) Hematocrit 20.7 % (39.0-53.0) Mean Corpuscular Volume 86 fL (79-100) Mean Corpuscular Hemoglobin 28 pg (25-35) Mean Corpuscular Hemoglobin Concent 32 g/dL (31-37) Red Cell Distribution Width 18.4 % (11.5-14.5) Platelet Count 279 x10^3/uL (140-400) Neutrophils (%) (Auto) 89 % (31-73) Lymphocytes (%) (Auto) 6 % (24-48) Monocytes (%) (Auto) 5 % (0-9) Eosinophils (%) (Auto) 0 % (0-3) Basophils (%) (Auto) 0 % (0-3) Neutrophils # (Auto) 12.7 x10^3uL (1.8-7.7) Lymphocytes # (Auto) 0.8 x10^3/uL (1.0-4.8) Monocytes # (Auto) 0.7 x10^3/uL (0.0-1.1) Eosinophils # (Auto) 0.0 x10^3/uL (0.0-0.7) Basophils # (Auto) 0.0 x10^3/uL (0.0-0.2) Sodium Level 134 mmol/L (136-145) 137 mmol/L (136-145) Potassium Level 7.6 mmol/L (3.5-5.1) 5.6 mmol/L (3.5-5.1) Chloride Level 96 mmol/L (98-107) 97 mmol/L (98-107) Carbon Dioxide Level 20 mmol/L (21-32) 26 mmol/L (21-32) Anion Gap 18 (6-14) 14 (6-14) Blood Urea Nitrogen 55 mg/dL (8-26) 41 mg/dL (8-26) Creatinine 10.0 mg/dL (0.7-1.3) 7.6 mg/dL (0.7-1.3) Estimated GFR (Cockcroft-Gault) 7.1 9.8 Glucose Level 373 mg/dL (70-99) 289 mg/dL (70-99) Calcium Level 9.3 mg/dL (8.5-10.1) 8.7 mg/dL (8.5-10.1) Test 02/06/19 14:01 02/06/19 17:16 02/06/19 20:58 02/07/19 04:30 Glucose (Fingerstick) 216 mg/dL (70-99) 207 mg/dL (70-99) 188 mg/dL (70-99) White Blood Count 11.0 x10^3/uL (4.0-11.0) Red Blood Count 2.45 x10^6/uL (4.30-5.70) Hemoglobin 6.9 g/dL (13.0-17.5) Hematocrit 20.7 % (39.0-53.0) Mean Corpuscular Volume 85 fL (79-100) Mean Corpuscular Hemoglobin 28 pg (25-35) Mean Corpuscular Hemoglobin Concent 33 g/dL (31-37) Red Cell Distribution Width 17.5 % (11.5-14.5) Platelet Count 268 x10^3/uL (140-400) Sodium Level 137 mmol/L (136-145) Potassium Level 4.9 mmol/L (3.5-5.1) Chloride Level 98 mmol/L (98-107) Carbon Dioxide Level 30 mmol/L (21-32) Anion Gap 9 (6-14) Blood Urea Nitrogen 36 mg/dL (8-26) Creatinine 8.4 mg/dL (0.7-1.3) Estimated GFR (Cockcroft-Gault) 8.7 Glucose Level 220 mg/dL (70-99) Calcium Level 9.0 mg/dL (8.5-10.1) Test 02/07/19 07:46 Glucose (Fingerstick) 192 mg/dL (70-99) Laboratory Tests Test 02/06/19 14:01 02/06/19 17:16 02/06/19 20:58 02/07/19 04:30 Glucose (Fingerstick) 216 mg/dL (70-99) 207 mg/dL (70-99) 188 mg/dL (70-99) White Blood Count 11.0 x10^3/uL (4.0-11.0) Red Blood Count 2.45 x10^6/uL (4.30-5.70) Hemoglobin 6.9 g/dL (13.0-17.5) Hematocrit 20.7 % (39.0-53.0) Mean Corpuscular Volume 85 fL (79-100) Mean Corpuscular Hemoglobin 28 pg (25-35) Mean Corpuscular Hemoglobin Concent 33 g/dL (31-37) Red Cell Distribution Width 17.5 % (11.5-14.5) Platelet Count 268 x10^3/uL (140-400) Sodium Level 137 mmol/L (136-145) Potassium Level 4.9 mmol/L (3.5-5.1) Chloride Level 98 mmol/L (98-107) Carbon Dioxide Level 30 mmol/L (21-32) Anion Gap 9 (6-14) Blood Urea Nitrogen 36 mg/dL (8-26) Creatinine 8.4 mg/dL (0.7-1.3) Estimated GFR (Cockcroft-Gault) 8.7 Glucose Level 220 mg/dL (70-99) Calcium Level 9.0 mg/dL (8.5-10.1) Test 02/07/19 07:46 Glucose (Fingerstick) 192 mg/dL (70-99) Medications Current Medications Heparin Sodium (Porcine) 5000 unit/Sodium Chloride 505 ml @ 505 mls/hr 1X ONCE IRR Last administered on 02/05/19at 07:52; Start 02/05/19 at 06:00; Stop 02/05/19 at 06:59; Status DC Ondansetron HCl (Zofran) 4 mg PRN Q6HRS PRN IV NAUSEA/VOMITING; Start 02/05/19 at 07:00; Stop 02/05/19 at 20:00; Status DC Fentanyl Citrate (Fentanyl 2ml Vial) 25 mcg PRN Q5MIN PRN IV MILD PAIN; Start 02/05/19 at 07:00; Stop 02/05/19 at 20:00; Status DC Fentanyl Citrate (Fentanyl 2ml Vial) 50 mcg PRN Q5MIN PRN IV MODERATE TO SEVERE PAIN Last administered on 02/05/19at 11:58; Start 02/05/19 at 07:00; Stop 02/05/19 at 20:00; Status DC Morphine Sulfate (Morphine Sulfate) 1 mg PRN Q10MIN PRN IV SEVERE PAIN; Start 02/05/19 at 07:00; Stop 02/05/19 at 20:00; Status DC Ringer's Solution 1,000 ml @ 30 mls/hr Q24H IV ; Start 02/05/19 at 07:00; Stop 02/05/19 at 18:59; Status Cancel Lidocaine HCl (Xylocaine-Mpf 1% 2ml Vial) 2 ml PRN 1X PRN ID PRIOR TO IV START; Start 02/05/19 at 07:00; Stop 02/05/19 at 20:00; Status DC Hydromorphone HCl (Dilaudid) 0.5 mg PRN Q10MIN PRN IV SEV PAIN, Second choice; Start 02/05/19 at 07:00; Stop 02/05/19 at 20:00; Status DC Prochlorperazine Edisylate (Compazine) 5 mg PACU PRN PRN IV NAUSEA, MRX1; Start 02/05/19 at 07:00; Stop 02/05/19 at 20:00; Status DC Levofloxacin/ Dextrose 100 ml @ 100 mls/hr 1X PREOP PRN IV PRIOR TO PROCEDURE Last administered on 02/05/19at 07:35; Start 02/05/19 at 06:00; Stop 02/05/19 at 18:00; Status DC Propofol 20 ml @ As Directed STK-MED ONCE IV ; Start 02/05/19 at 07:21; Stop 02/05/19 at 07:22; Status DC Lidocaine HCl (Lidocaine Pf 2% Vial) 5 ml STK-MED ONCE .ROUTE ; Start 02/05/19 at 07:21; Stop 02/05/19 at 07:22; Status DC Ondansetron HCl (Zofran) 4 mg STK-MED ONCE .ROUTE ; Start 02/05/19 at 07:21; Stop 02/05/19 at 07:22; Status DC Dexamethasone Sodium Phosphate (Decadron) 4 mg STK-MED ONCE .ROUTE ; Start 02/05/19 at 07:21; Stop 02/05/19 at 07:22; Status DC Sevoflurane (Ultane) 30 ml STK-MED ONCE IH ; Start 02/05/19 at 07:21; Stop 02/05/19 at 07:22; Status DC Rocuronium Hilbert (Zemuron) 50 mg STK-MED ONCE .ROUTE ; Start 02/05/19 at 07:21; Stop 02/05/19 at 07:22; Status DC Neostigmine Methylsulfate (Neostigmine Methylsulfate) 5 mg STK-MED ONCE .ROUTE ; Start 02/05/19 at 07:21; Stop 02/05/19 at 07:22; Status DC Glycopyrrolate (Robinul) 1 mg STK-MED ONCE .ROUTE ; Start 02/05/19 at 07:21; Stop 02/05/19 at 07:22; Status DC Bupivacaine HCl/ Epinephrine Bitart (Sensorcain-Mpf Epi 0.5%-1:300166) 30 ml STK-MED ONCE .ROUTE Last administered on 02/05/19at 07:51; Start 02/05/19 at 06:30; Stop 02/05/19 at 07:30; Status DC Sodium Chloride 1,000 ml @ 75 mls/hr [id number] IV Last administered on 02/05/19at 07:39; Start 02/05/19 at 07:45; Stop 02/06/19 at 03:36; Status DC Insulin Human Lispro (HumaLOG VIAL) 4 unit 1X ONCE SQ Last administered on 02/05/19at 07:59; Start 02/05/19 at 08:00; Stop 02/05/19 at 08:01; Status DC Diphenhydramine HCl (Benadryl) 25 mg PRN Q6HRS PRN PO ITCHING Last administered on 02/06/19at 03:38; Start 02/05/19 at 10:30 Heparin Sodium (Porcine) (Heparin Sodium) 5,000 unit Q8HRS SQ Last administered on 02/07/19 06:00; Start 02/05/19 at 22:00 Sodium Chloride (Normal Saline Flush) 3 ml QSHIFT PRN IV AFTER MEDS AND BLOOD DRAWS; Start 02/05/19 at 10:30 Sodium Chloride 1,000 ml @ 50 mls/hr Q20H IV Last administered on 02/05/19 20:52; Start 02/05/19 at 10:30; Stop 02/06/19 at 14:04; Status DC Oxycodone/ Acetaminophen (Percocet 5/325) 1 tab PRN Q4HRS PRN PO MILD PAIN, 1ST CHOICE Last administered on 02/07/19 09:08; Start 02/05/19 at 10:30 Oxycodone/ Acetaminophen (Percocet 5/325) 2 tab PRN Q4HRS PRN PO MODERATE PAIN, SEVERE PAIN Last administered on 02/06/19 21:15; Start 02/05/19 at 10:30 Hydromorphone HCl (Dilaudid) 1 mg PRN Q3HRS PRN IV PAIN Last administered on 02/06/19 22:54; Start 02/05/19 at 10:30 Docusate Sodium (Colace) 100 mg BID PO ; Start 02/05/19 at 21:00; Status UNV Ondansetron HCl (Zofran) 4 mg PRN Q6HRS PRN IV NAUESA, 1ST CHOICE Last administered on 02/06/19 14:42; Start 02/05/19 at 10:30 Amlodipine Besylate (Norvasc) 10 mg DAILY PO Last administered on 02/07/19 09:08; Start 02/05/19 at 12:00 Calcium Carbonate/ Glycine (Tums) 250 mg PRN BID PRN PO INDIGESTION; Start 02/05/19 at 10:45 Clonidine HCl (Catapres) 0.2 mg BID PO Last administered on 02/07/19 09:07; Start 02/05/19 at 12:00 Docusate Sodium (Colace) 100 mg BID PO Last administered on 02/07/19 09:06; Start 02/05/19 at 21:00 Furosemide (Lasix) 80 mg BID92 PO Last administered on 02/07/19 09:07; Start 02/05/19 at 14:00 Insulin Glargine (Lantus) 16 units HS SQ Last administered on 02/06/19 21:19; Start 02/05/19 at 21:00 Lisinopril (Prinivil) 40 mg BID PO Last administered on 02/07/19 09:07; Start 02/05/19 at 21:00 Sevelamer Carbonate (Renvela) 4,000 mg TIDWMEALS PO Last administered on 02/07/19 09:18; Start 02/05/19 at 12:00 Non-Formulary Medication (Albuterol Sulfate (Proair Respiclick)) one to two puffs q6hrs ... PRN Q6HRS PRN IH SHORTNESS OF BREATH; Start 02/05/19 at 10:45; Status UNV Calcitriol (Rocaltrol) 0.5 mcg DAILY PO Last administered on 02/07/19 09:08; Start 02/05/19 at 13:00 Carvedilol (Coreg) 25 mg BIDWMEALS PO Last administered on 02/07/19 09:06; Start 02/05/19 at 17:00 Vitamin D (Vitamin D3) 5,000 unit DAILY PO Last administered on 02/07/19 09:06; Start 02/05/19 at 13:00 Cinacalcet (Sensipar) 60 mg DAILY PO Last administered on 02/07/19 09:08; Start 02/05/19 at 13:00 Darbepoetin David (Aranesp) 25 mcg Th SQ ; Start 02/12/19 at 21:00; Stop 02/12/19 at 21:00; Status DC Fluticasone Propionate (Flonase) 2 spray DAILY NS Last administered on 02/07/19 09:06; Start 02/06/19 at 09:00 Pantoprazole Sodium (Protonix) 40 mg DAILYAC PO Last administered on 02/07/19 09:07; Start 02/05/19 at 16:30 Polyethylene Glycol (miraLAX PACKET) 17 gm DAILY PO Last administered on 02/07/19 09:07; Start 02/05/19 at 13:00 Sennosides (Senna) 8.6 mg BID PO Last administered on 02/07/19 09:06; Start 02/05/19 at 11:45 Simvastatin (Zocor) 20 mg HS PO Last administered on 02/06/19at 21:14; Start 02/05/19 at 21:00 Vitamin B Complex/ Vitamin C (Johanna-Celia) 1 tab DAILY PO Last administered on 02/07/19at 09:05; Start 02/05/19 at 13:00 Fentanyl Citrate (Fentanyl 2ml Vial) 100 mcg STK-MED ONCE .ROUTE ; Start 02/05/19 at 11:11; Stop 02/05/19 at 11:12; Status DC Albuterol Sulfate (Ventolin Neb Soln) 2.5 mg PRN Q6HRS PRN NEB SHORTNESS OF BREATH; Start 02/05/19 at 11:45 Fentanyl Citrate (Fentanyl 2ml Vial) 100 mcg STK-MED ONCE .ROUTE ; Start 02/05/19 at 11:56; Stop 02/05/19 at 11:57; Status DC Darbepoetin David (Aranesp) 100 mcg 1X ONCE SQ Last administered on 02/05/19at 14:48; Start 02/05/19 at 13:00; Stop 02/05/19 at 13:12; Status DC Acetaminophen (Tylenol) 500 mg PRN Q6HRS PRN PO MILD PAIN / TEMP; Start 02/05/19 at 13:30 Zolpidem Tartrate (Ambien) 5 mg PRN QHS PRN PO INSOMNIA; Start 02/05/19 at 13:30 Insulin Human Lispro (HumaLOG) 0-9 UNITS TIDWMEALS SQ ; Start 02/05/19 at 17:00; Stop 02/06/19 at 03:37; Status DC Dextrose (Dextrose 50%-Water Syringe) 12.5 gm PRN Q15MIN PRN IV SEE COMMENTS; Start 02/05/19 at 13:45; Stop 02/06/19 at 03:36; Status DC Insulin Human Lispro (HumaLOG) 4 units 1X ONCE SQ Last administered on at 20:59; Start 02/05/19 at 21:00; Stop 02/05/19 at 21:01; Status DC Insulin Human Lispro (HumaLOG) 12 units 1X ONCE SQ Last administered on 02/06/19at 03:42; Start 02/06/19 at 04:00; Stop 02/06/19 at 04:01; Status DC Insulin Human Lispro (HumaLOG) 0-9 UNITS TIDWMEALS SQ Last administered on 02/06/19at 17:18; Start 02/06/19 at 08:00 Dextrose (Dextrose 50%-Water Syringe) 12.5 gm PRN Q15MIN PRN IV SEE COMMENTS; Start 02/06/19 at 03:30 Calcium Gluconate (Calcium Gluconate) 1,000 mg 1X ONCE IVP ; Start 02/06/19 at 07:15; Stop 02/06/19 at 07:16; Status DC Sodium Chloride 1,000 ml @ 1,000 mls/hr Q1H PRN IV hypotension; Start 02/06/19 at 07:34; Stop 02/06/19 at 13:33; Status DC Albumin Human 200 ml @ 200 mls/hr 1X PRN PRN IV Hypotension; Start 02/06/19 at 07:45; Stop 02/06/19 at 13:44; Status DC Sodium Chloride (Normal Saline Flush) 10 ml 1X PRN PRN IV AP catheter pack; S tart 02/06/19 at 07:45; Stop 02/07/19 at 07:44; Status DC Sodium Chloride (Normal Saline Flush) 10 ml 1X PRN PRN IV [employer] catheter pack; Start 02/06/19 at 07:45; Stop 02/07/19 at 07:44; Status DC Sodium Chloride 1,000 ml @ 400 mls/hr Q2H30M PRN IV PATENCY; Start 02/06/19 at 07:34; Stop 02/06/19 at 19:33; Status DC Info (PHARMACY MONITORING -- do not chart) 1 each PRN DAILY PRN MC SEE COMMENTS; Start 02/06/19 at 07:45; Status UNV Info (PHARMACY MONITORING -- do not chart) 1 each PRN DAILY PRN MC SEE COMM ENTS; Start 02/06/19 at 07:45 Darbepoetin David (Aranesp) 100 mcg Th SQ ; Start 02/12/19 at 21:00 Active Scripts Active Percocet 5-325 Mg Tablet (Oxycodone/Acetaminophen) 1 Each Tablet 1 Tab PO PRN Q6HRS PRN Ondansetron Odt (Ondansetron) 4 Mg Tab.rapdis 1 Tab PO PRN Q6-8HRS PRN Reported Protonix (Pantoprazole Sodium) 20 Mg Tablet.dr 2 Tab PO DAILY Flonase Allergy Relief (Fluticasone Propionate) 9.9 Ml [place].susp 2 Sprays NS DAILY Procrit (Epoetin David) 10,000 Unit/1 Ml Vial 10,000 Unit IJ QSU Tums (Calcium Carbonate) 200 Mg Tab.chew 200 Mg PO BID PRN Proair Respiclick (Albuterol Sulfate) 90 Mcg Aer.pow.ba 1-2 Puff IH PRN Q6HRS PRN Senna (Sennosides) 8.6 Mg Tablet 8.6 Mg PO BID Miralax (Polyethylene Glycol 3350) 17 Gm Powd.pack 1 Packet PO DAILY Colace (Docusate Sodium) 100 Mg Capsule 1 Cap PO BID Carvedilol 25 Mg Tablet 25 Mg PO BIDWMEALS Renvela (Sevelamer Carbonate) 800 Mg Tablet 5 Tab PO TIDWMEALS Furosemide 80 Mg Tablet 1 Tab PO BID Vitamin D (Cholecalciferol (Vitamin D3)) 5,000 Unit Tablet 5,000 Unit PO DAILY Calcitriol 0.25 Mcg Capsule 2 Cap PO DAILY Clonidine Hcl 0.2 Mg Tablet 1 Tab PO BID Johanna-Celia Rx Tablet (Vit B Cmplx 3/Fa/Vit C/Biotin) 1 Each Tablet 1 Each PO DAILY Sensipar (Cinacalcet Hcl) 60 Mg Tablet 60 Mg PO DAILY Amlodipine Besylate 10 Mg Tablet 10 Mg PO DAILY Simvastatin 20 Mg Tablet 20 Mg PO HS Lisinopril 40 Mg Tablet 1 Tab PO BID Novolog (Insulin Aspart) 100 Unit/1 Ml Vial 100 Unit SQ sliding scale Lantus Solostar (Insulin Glargine,Hum.rec.anlog) 100 Unit/1 Ml Insuln.pen 16 Unit SQ HS Vitals/I & O Vital Sign - Last 24 Hours 02/06/19 02/06/19 02/06/19 02/06/19 14:27 14:36 15:00 15:06 Temp 99.2 99.2 Pulse 95 107 Resp 17 18 17 B/P (MAP) 163/90 168/88 (114) Pulse Ox 98 O2 Delivery Nasal Cannula Nasal Cannula O2 Flow Rate 2.0 2.0 02/06/19 02/06/19 02/06/19 02/06/19 17:15 17:16 19:17 19:20 Temp 99.8 99.8 Pulse 107 103 Resp 17 18 B/P (MAP) 168/88 181/97 (125) Pulse Ox 98 O2 Delivery Nasal Cannula Nasal Cannula Nasal Cannula O2 Flow Rate 2.0 2.0 2.0 02/06/19 02/06/19 02/06/19 02/06/19 19:25 20:00 21:13 21:14 Pulse 103 103 B/P (MAP) 181/97 181/97 O2 Delivery Nasal Cannula Nasal Cannula O2 Flow Rate 2.0 2.0 02/06/19 02/06/19 02/06/19 02/06/19 21:15 22:29 22:54 23:20 Temp 99.0 99.0 Pulse 106 Resp 18 B/P (MAP) 176/96 (122) Pulse Ox 98 O2 Delivery Nasal Cannula Nasal Cannula Nasal Cannula Nasal Cannula O2 Flow Rate 2.0 2.0 2.0 2.0 02/07/19 02/07/19 02/07/19 02/07/19 00:06 03:25 07:30 09:06 Temp 99.2 99.3 99.2 99.3 Pulse 91 94 94 Resp 18 20 B/P (MAP) 162/92 (115) 161/91 (114) 161/91 Pulse Ox 97 95 O2 Delivery Nasal Cannula Nasal Cannula Nasal Cannula O2 Flow Rate 2.0 2.0 2.0 02/07/19 02/07/19 02/07/19 02/07/19 09:07 09:07 09:08 09:08 Pulse 94 94 94 B/P (MAP) 161/91 161/91 161/91 Pulse Ox 95 O2 Delivery Nasal Cannula O2 Flow Rate 2.0 Intake and Output 02/06/19 02/06/19 02/07/19 14:59 22:59 06:59 Intake Total 0 ml 100 ml 200 ml Output Total 80 ml Balance 0 ml 20 ml 200 ml ANA HUNTER MD Feb 07, 2019 11:01
[2019-02-07 11:20] VITALS: BP 143/84
--- NOTE | 2019-02-07 14:33 | PDOC ---
SURGICAL PROGRESS NOTE Subjective would like more to eat adequate pain control Vital Signs Vital Signs Date Time Temp Pulse Resp B/P (MAP) Pulse Ox O2 Delivery O2 Flow Rate FiO2 02/07/19 11:20 98.9 82 20 143/84 (103) 98 Nasal Cannula 2.0 98.9 I&O Intake and Output 02/07/19 07:00 Intake Total 300 ml Output Total 80 ml Balance 220 ml Intake Oral 300 ml Output Drainage Total 80 ml PATIENT HAS A MARSHALL: No General: Alert, Oriented X3, No acute distress Abdomen: Other (binder on, L[place] with small amount of serosanguineous output) Labs Laboratory Tests Test 02/05/19 15:03 02/05/19 16:32 02/05/19 20:45 02/06/19 03:18 Glucose (Fingerstick) 165 mg/dL (70-99) 200 mg/dL (70-99) 294 mg/dL (70-99) 369 mg/dL (70-99) Test 02/06/19 04:20 02/06/19 07:26 02/06/19 10:03 02/06/19 14:01 White Blood Count 14.2 x10^3/uL (4.0-11.0) Red Blood Count 2.41 x10^6/uL (4.30-5.70) Hemoglobin 6.7 g/dL (13.0-17.5) Hematocrit 20.7 % (39.0-53.0) Mean Corpuscular Volume 86 fL (79-100) Mean Corpuscular Hemoglobin 28 pg (25-35) Mean Corpuscular Hemoglobin Concent 32 g/dL (31-37) Red Cell Distribution Width 18.4 % (11.5-14.5) Platelet Count 279 x10^3/uL (140-400) Neutrophils (%) (Auto) 89 % (31-73) Lymphocytes (%) (Auto) 6 % (24-48) Monocytes (%) (Auto) 5 % (0-9) Eosinophils (%) (Auto) 0 % (0-3) Basophils (%) (Auto) 0 % (0-3) Neutrophils # (Auto) 12.7 x10^3uL (1.8-7.7) Lymphocytes # (Auto) 0.8 x10^3/uL (1.0-4.8) Monocytes # (Auto) 0.7 x10^3/uL (0.0-1.1) Eosinophils # (Auto) 0.0 x10^3/uL (0.0-0.7) Basophils # (Auto) 0.0 x10^3/uL (0.0-0.2) Sodium Level 134 mmol/L (136-145) 137 mmol/L (136-145) Potassium Level 7.6 mmol/L (3.5-5.1) 5.6 mmol/L (3.5-5.1) Chloride Level 96 mmol/L (98-107) 97 mmol/L (98-107) Carbon Dioxide Level 20 mmol/L (21-32) 26 mmol/L (21-32) Anion Gap 18 (6-14) 14 (6-14) Blood Urea Nitrogen 55 mg/dL (8-26) 41 mg/dL (8-26) Creatinine 10.0 mg/dL (0.7-1.3) 7.6 mg/dL (0.7-1.3) Estimated GFR (Cockcroft-Gault) 7.1 9.8 Glucose Level 373 mg/dL (70-99) 289 mg/dL (70-99) Calcium Level 9.3 mg/dL (8.5-10.1) 8.7 mg/dL (8.5-10.1) Glucose (Fingerstick) 326 mg/dL (70-99) 216 mg/dL (70-99) Test 02/06/19 17:16 02/06/19 20:58 02/07/19 04:30 02/07/19 07:46 Glucose (Fingerstick) 207 mg/dL (70-99) 188 mg/dL (70-99) 192 mg/dL (70-99) White Blood Count 11.0 x10^3/uL (4.0-11.0) Red Blood Count 2.45 x10^6/uL (4.30-5.70) Hemoglobin 6.9 g/dL (13.0-17.5) Hematocrit 20.7 % (39.0-53.0) Mean Corpuscular Volume 85 fL (79-100) Mean Corpuscular Hemoglobin 28 pg (25-35) Mean Corpuscular Hemoglobin Concent 33 g/dL (31-37) Red Cell Distribution Width 17.5 % (11.5-14.5) Platelet Count 268 x10^3/uL (140-400) Sodium Level 137 mmol/L (136-145) Potassium Level 4.9 mmol/L (3.5-5.1) Chloride Level 98 mmol/L (98-107) Carbon Dioxide Level 30 mmol/L (21-32) Anion Gap 9 (6-14) Blood Urea Nitrogen 36 mg/dL (8-26) Creatinine 8.4 mg/dL (0.7-1.3) Estimated GFR (Cockcroft-Gault) 8.7 Glucose Level 220 mg/dL (70-99) Calcium Level 9.0 mg/dL (8.5-10.1) Test 02/07/19 11:04 Glucose (Fingerstick) 223 mg/dL (70-99) Laboratory Tests Test 02/06/19 17:16 02/06/19 20:58 02/07/19 04:30 02/07/19 07:46 Glucose (Fingerstick) 207 mg/dL (70-99) 188 mg/dL (70-99) 192 mg/dL (70-99) White Blood Count 11.0 x10^3/uL (4.0-11.0) Red Blood Count 2.45 x10^6/uL (4.30-5.70) Hemoglobin 6.9 g/dL (13.0-17.5) Hematocrit 20.7 % (39.0-53.0) Mean Corpuscular Volume 85 fL (79-100) Mean Corpuscular Hemoglobin 28 pg (25-35) Mean Corpuscular Hemoglobin Concent 33 g/dL (31-37) Red Cell Distribution Width 17.5 % (11.5-14.5) Platelet Count 268 x10^3/uL (140-400) Sodium Level 137 mmol/L (136-145) Potassium Level 4.9 mmol/L (3.5-5.1) Chloride Level 98 mmol/L (98-107) Carbon Dioxide Level 30 mmol/L (21-32) Anion Gap 9 (6-14) Blood Urea Nitrogen 36 mg/dL (8-26) Creatinine 8.4 mg/dL (0.7-1.3) Estimated GFR (Cockcroft-Gault) 8.7 Glucose Level 220 mg/dL (70-99) Calcium Level 9.0 mg/dL (8.5-10.1) Test 02/07/19 11:04 Glucose (Fingerstick) 223 mg/dL (70-99) Assessment/Plan POD 2 removal PD catheter advance to renal full liquids PONCHO STRANGE MD Feb 07, 2019 14:33
[2019-02-07 15:20] VITALS: BP 138/86
[2019-02-07] MEDS: HYDROmorphone 2 MG/ML VIAL IV PRN ×2 (15:51→21:03)
[2019-02-07] MEDS: ONDANSETRON PF 4 MG/2 ML VIAL. IV PRN (16:22)
[2019-02-07 19:59] VITALS: BP 155/87
[2019-02-07] MEDS: SIMVASTATIN 20 MG TABLET PO SCH (21:02)
[2019-02-07] MEDS: INSULIN GLARGINE 300 UNITS/3 ML INSULN.PEN. SQ SCH (21:09)
[2019-02-07] MEDS ORDERED: INSULIN LISPRO 300 UNITS/3 ML INSULN.PEN. SQ ONE (22:00)
[2019-02-07 23:59] VITALS: BP 132/82
[2019-02-08 03:42] VITALS: BP 127/81
[2019-02-08 04:45] LABS: BASO % 0 % (0-3); EOS # 0.7 x10^3/uL (0.0-0.7); EOS % 8 % (0-3); LYMPH # 0.6 x10^3/uL (1.0-4.8); LYMPH % 8 % (24-48); MEAN CORPUSCULAR HEMOGLOBIN 28 pg (25-35); MEAN CORPUSCULAR HGB CONC 33 g/dL (31-37); MEAN CORPUSCULAR VOLUME 85 fL (79-100); MONO # 0.5 x10^3/uL (0.0-1.1); MONO % 6 % (0-9); NEUT # 6.6 x10^3uL (1.8-7.7); NEUT % 78 % (31-73); PLATELET COUNT 246 x10^3/uL (140-400); RED BLOOD COUNT 2.08 x10^6/uL (4.30-5.70); RED CELL DISTRIBUTION WIDTH 17.4 % (11.5-14.5); WHITE BLOOD COUNT 8.4 x10^3/uL (4.0-11.0)
[2019-02-08 04:47] LABS: HEMATOCRIT 17.6 % (39.0-53.0); HEMOGLOBIN 5.8 g/dL (13.0-17.5)
[2019-02-08 05:02] LABS: ALBUMIN 2.7 g/dL (3.4-5.0); CALCIUM 8.4 mg/dL (8.5-10.1); CREATININE 11.2 mg/dL (0.7-1.3); GFR 6.3; POTASSIUM 4.3 mmol/L (3.5-5.1)
[2019-02-08] MEDS: HEPARIN for SUB-Q USE 5,000 UNIT/ML VIAL. SQ SCH ×3 (05:46→22:56)
[2019-02-08 07:15] VITALS: BP 144/83
[2019-02-08] MEDS: INSULIN LISPRO 300 UNITS/3 ML INSULN.PEN. SQ SCH ×3 (08:00→17:26)
[2019-02-08] MEDS: SENNOSIDES 8.6 MG TABLET PO SCH ×2 (08:56→21:35)
[2019-02-08] MEDS: SEVELAMER CARBONATE 800 MG TABLET. PO SCH ×3 (08:57→17:18)
[2019-02-08] MEDS: LISINOPRIL 20 MG TABLET PO SCH ×2 (08:57→21:35)
[2019-02-08] MEDS: amLODIPine BESYLATE 10 MG TABLET PO SCH (08:58)
[2019-02-08] MEDS: CARVEDILOL 12.5 MG TABLET. PO SCH ×2 (08:58→17:18)
[2019-02-08] MEDS: PANTOPRAZOLE 40 MG TABLET.DR. PO SCH (08:58)
[2019-02-08] MEDS: CINACALCET HCL 30 MG TABLET PO SCH (08:58)
[2019-02-08] MEDS: CALCITRIOL 0.25 MCG CAPSULE. PO SCH (08:58)
[2019-02-08] MEDS: cloNIDine HCL 0.2 MG TABLET PO SCH ×2 (08:59→21:36)
[2019-02-08] MEDS: FOLIC/VIT B COMP W-C (RENAL) TABLET. PO SCH (08:59)
[2019-02-08] MEDS: FLUTICASONE 50MCG/NASAL SPRAY 16GM BOTTLE. NS SCH (08:59)
[2019-02-08] MEDS: DOCUSATE SODIUM 100 MG CAPSULE. PO SCH ×2 (08:59→21:35)
[2019-02-08] MEDS: FUROSEMIDE 80 MG TABLET. PO SCH ×2 (08:59→14:00)
[2019-02-08] MEDS: POLYETHYLENE GLYCOL 3350 17 GM PACKET. PO SCH (08:59)
[2019-02-08] MEDS: CHOLECALCIFEROL (VITAMIN D3) 5,000 UNIT CAPSULE PO SCH (08:59)
--- NOTE | 2019-02-08 10:01 | PDOC ---
PROGRESS NOTES Chief Complaint Chief Complaint Malfunctioning PD catheter, removed by GS intra op-02/05/19 ESRD. prev PD, now HD through right subclavian since November 2018 Anemia of ESRD Hypertension Diabetes type 1 History of Present Illness History of Present Illness no blood products, no transfusion, patient is scheduled to get a renal transplant soon, and needs protected, Pain control OK Patinet would like to advance diet, pain better, no stool since day of surgery HD per renal cont aranesp Vitals Vitals Vital Signs Date Time Temp Pulse Resp B/P (MAP) Pulse Ox O2 Delivery O2 Flow Rate FiO2 02/08/19 08:59 112 144/83 02/08/19 07:15 98.4 19 95 Nasal Cannula 2.0 98.4 Physical Exam Physical Exam (binder on, small amount of serosanguineous drainage in bulb) General: Alert, Oriented X3, No acute distress Heart: Regular rate, Normal S1, Normal S2, No murmurs Lungs: Clear Abdomen: Other (binder on, LYNSEY with small amount of serosanguineous output) Extremities: No clubbing, No cyanosis Skin: No breakdown Labs LABS Laboratory Tests Test 02/07/19 11:04 02/07/19 16:54 02/07/19 21:03 02/08/19 03:45 Glucose (Fingerstick) 223 mg/dL (70-99) 161 mg/dL (70-99) 266 mg/dL (70-99) White Blood Count 8.4 x10^3/uL (4.0-11.0) Red Blood Count 2.08 x10^6/uL (4.30-5.70) Hemoglobin 5.8 g/dL (13.0-17.5) Hematocrit 17.6 % (39.0-53.0) Mean Corpuscular Volume 85 fL (79-100) Mean Corpuscular Hemoglobin 28 pg (25-35) Mean Corpuscular Hemoglobin Concent 33 g/dL (31-37) Red Cell Distribution Width 17.4 % (11.5-14.5) Platelet Count 246 x10^3/uL (140-400) Neutrophils (%) (Auto) 78 % (31-73) Lymphocytes (%) (Auto) 8 % (24-48) Monocytes (%) (Auto) 6 % (0-9) Eosinophils (%) (Auto) 8 % (0-3) Basophils (%) (Auto) 0 % (0-3) Neutrophils # (Auto) 6.6 x10^3uL (1.8-7.7) Lymphocytes # (Auto) 0.6 x10^3/uL (1.0-4.8) Monocytes # (Auto) 0.5 x10^3/uL (0.0-1.1) Eosinophils # (Auto) 0.7 x10^3/uL (0.0-0.7) Basophils # (Auto) 0.0 x10^3/uL (0.0-0.2) Sodium Level 139 mmol/L (136-145) Potassium Level 4.3 mmol/L (3.5-5.1) Chloride Level 97 mmol/L (98-107) Carbon Dioxide Level 32 mmol/L (21-32) Anion Gap 10 (6-14) Blood Urea Nitrogen 49 mg/dL (8-26) Creatinine 11.2 mg/dL (0.7-1.3) Estimated GFR (Cockcroft-Gault) 6.3 Glucose Level 193 mg/dL (70-99) Calcium Level 8.4 mg/dL (8.5-10.1) Phosphorus Level 6.0 mg/dL (2.6-4.7) Albumin 2.7 g/dL (3.4-5.0) Test 02/08/19 07:42 Glucose (Fingerstick) 168 mg/dL (70-99) Review of Systems Review of Systems abd pain, wekaness Comment Review of Relevant I have reviewed the following items javy (where applicable) has been applied. Labs Laboratory Tests Test 02/06/19 10:03 02/06/19 14:01 02/06/19 17:16 02/06/19 20:58 Sodium Level 137 mmol/L (136-145) Potassium Level 5.6 mmol/L (3.5-5.1) Chloride Level 97 mmol/L (98-107) Carbon Dioxide Level 26 mmol/L (21-32) Anion Gap 14 (6-14) Blood Urea Nitrogen 41 mg/dL (8-26) Creatinine 7.6 mg/dL (0.7-1.3) Estimated GFR (Cockcroft-Gault) 9.8 Glucose Level 289 mg/dL (70-99) Calcium Level 8.7 mg/dL (8.5-10.1) Glucose (Fingerstick) 216 mg/dL (70-99) 207 mg/dL (70-99) 188 mg/dL (70-99) Test 02/07/19 04:30 02/07/19 07:46 02/07/19 11:04 02/07/19 16:54 White Blood Count 11.0 x10^3/uL (4.0-11.0) Red Blood Count 2.45 x10^6/uL (4.30-5.70) Hemoglobin 6.9 g/dL (13.0-17.5) Hematocrit 20.7 % (39.0-53.0) Mean Corpuscular Volume 85 fL (79-100) Mean Corpuscular Hemoglobin 28 pg (25-35) Mean Corpuscular Hemoglobin Concent 33 g/dL (31-37) Red Cell Distribution Width 17.5 % (11.5-14.5) Platelet Count 268 x10^3/uL (140-400) Sodium Level 137 mmol/L (136-145) Potassium Level 4.9 mmol/L (3.5-5.1) Chloride Level 98 mmol/L (98-107) Carbon Dioxide Level 30 mmol/L (21-32) Anion Gap 9 (6-14) Blood Urea Nitrogen 36 mg/dL (8-26) Creatinine 8.4 mg/dL (0.7-1.3) Estimated GFR (Cockcroft-Gault) 8.7 Glucose Level 220 mg/dL (70-99) Calcium Level 9.0 mg/dL (8.5-10.1) Glucose (Fingerstick) 192 mg/dL (70-99) 223 mg/dL (70-99) 161 mg/dL (70-99) Test 02/07/19 21:03 02/08/19 03:45 02/08/19 07:42 Glucose (Fingerstick) 266 mg/dL (70-99) 168 mg/dL (70-99) White Blood Count 8.4 x10^3/uL (4.0-11.0) Red Blood Count 2.08 x10^6/uL (4.30-5.70) Hemoglobin 5.8 g/dL (13.0-17.5) Hematocrit 17.6 % (39.0-53.0) Mean Corpuscular Volume 85 fL (79-100) Mean Corpuscular Hemoglobin 28 pg (25-35) Mean Corpuscular Hemoglobin Concent 33 g/dL (31-37) Red Cell Distribution Width 17.4 % (11.5-14.5) Platelet Count 246 x10^3/uL (140-400) Neutrophils (%) (Auto) 78 % (31-73) Lymphocytes (%) (Auto) 8 % (24-48) Monocytes (%) (Auto) 6 % (0-9) Eosinophils (%) (Auto) 8 % (0-3) Basophils (%) (Auto) 0 % (0-3) Neutrophils # (Auto) 6.6 x10^3uL (1.8-7.7) Lymphocytes # (Auto) 0.6 x10^3/uL (1.0-4.8) Monocytes # (Auto) 0.5 x10^3/uL (0.0-1.1) Eosinophils # (Auto) 0.7 x10^3/uL (0.0-0.7) Basophils # (Auto) 0.0 x10^3/uL (0.0-0.2) Sodium Level 139 mmol/L (136-145) Potassium Level 4.3 mmol/L (3.5-5.1) Chloride Level 97 mmol/L (98-107) Carbon Dioxide Level 32 mmol/L (21-32) Anion Gap 10 (6-14) Blood Urea Nitrogen 49 mg/dL (8-26) Creatinine 11.2 mg/dL (0.7-1.3) Estimated GFR (Cockcroft-Gault) 6.3 Glucose Level 193 mg/dL (70-99) Calcium Level 8.4 mg/dL (8.5-10.1) Phosphorus Level 6.0 mg/dL (2.6-4.7) Albumin 2.7 g/dL (3.4-5.0) Laboratory Tests Test 02/07/19 11:04 02/07/19 16:54 02/07/19 21:03 02/08/19 03:45 Glucose (Fingerstick) 223 mg/dL (70-99) 161 mg/dL (70-99) 266 mg/dL (70-99) White Blood Count 8.4 x10^3/uL (4.0-11.0) Red Blood Count 2.08 x10^6/uL (4.30-5.70) Hemoglobin 5.8 g/dL (13.0-17.5) Hematocrit 17.6 % (39.0-53.0) Mean Corpuscular Volume 85 fL (79-100) Mean Corpuscular Hemoglobin 28 pg (25-35) Mean Corpuscular Hemoglobin Concent 33 g/dL (31-37) Red Cell Distribution Width 17.4 % (11.5-14.5) Platelet Count 246 x10^3/uL (140-400) Neutrophils (%) (Auto) 78 % (31-73) Lymphocytes (%) (Auto) 8 % (24-48) Monocytes (%) (Auto) 6 % (0-9) Eosinophils (%) (Auto) 8 % (0-3) Basophils (%) (Auto) 0 % (0-3) Neutrophils # (Auto) 6.6 x10^3uL (1.8-7.7) Lymphocytes # (Auto) 0.6 x10^3/uL (1.0-4.8) Monocytes # (Auto) 0.5 x10^3/uL (0.0-1.1) Eosinophils # (Auto) 0.7 x10^3/uL (0.0-0.7) Basophils # (Auto) 0.0 x10^3/uL (0.0-0.2) Sodium Level 139 mmol/L (136-145) Potassium Level 4.3 mmol/L (3.5-5.1) Chloride Level 97 mmol/L (98-107) Carbon Dioxide Level 32 mmol/L (21-32) Anion Gap 10 (6-14) Blood Urea Nitrogen 49 mg/dL (8-26) Creatinine 11.2 mg/dL (0.7-1.3) Estimated GFR (Cockcroft-Gault) 6.3 Glucose Level 193 mg/dL (70-99) Calcium Level 8.4 mg/dL (8.5-10.1) Phosphorus Level 6.0 mg/dL (2.6-4.7) Albumin 2.7 g/dL (3.4-5.0) Test 02/08/19 07:42 Glucose (Fingerstick) 168 mg/dL (70-99) Medications Current Medications Heparin Sodium (Porcine) 5000 unit/Sodium Chloride 505 ml @ 505 mls/hr 1X ONCE IRR Last administered on 02/05/19at 07:52; Start 02/05/19 at 06:00; Stop 02/05/19 at 06:59; Status DC Ondansetron HCl (Zofran) 4 mg PRN Q6HRS PRN IV NAUSEA/VOMITING; Start 02/05/19 at 07:00; Stop 02/05/19 at 20:00; Status DC Fentanyl Citrate (Fentanyl 2ml Vial) 25 mcg PRN Q5MIN PRN IV MILD PAIN; Start 02/05/19 at 07:00; Stop 02/05/19 at 20:00; Status DC Fentanyl Citrate (Fentanyl 2ml Vial) 50 mcg PRN Q5MIN PRN IV MODERATE TO SEVERE PAIN Last administered on 02/05/19at 11:58; Start 02/05/19 at 07:00; Stop 02/05/19 at 20:00; Status DC Morphine Sulfate (Morphine Sulfate) 1 mg PRN Q10MIN PRN IV SEVERE PAIN; Start 02/05/19 at 07:00; Stop 02/05/19 at 20:00; Status DC Ringer's Solution 1,000 ml @ 30 mls/hr Q24H IV ; Start 02/05/19 at 07:00; Stop 02/05/19 at 18:59; Status Cancel Lidocaine HCl (Xylocaine-Mpf 1% 2ml Vial) 2 ml PRN 1X PRN ID PRIOR TO IV START; Start 02/05/19 at 07:00; Stop 02/05/19 at 20:00; Status DC Hydromorphone HCl (Dilaudid) 0.5 mg PRN Q10MIN PRN IV SEV PAIN, Second choice; Start 02/05/19 at 07:00; Stop 02/05/19 at 20:00; Status DC Prochlorperazine Edisylate (Compazine) 5 mg PACU PRN PRN IV NAUSEA, MRX1; Start 02/05/19 at 07:00; Stop 02/05/19 at 20:00; Status DC Levofloxacin/ Dextrose 100 ml @ 100 mls/hr 1X PREOP PRN IV PRIOR TO PROCEDURE Last administered on 02/05/19at 07:35; Start 02/05/19 at 06:00; Stop 02/05/19 at 18:00; Status DC Propofol 20 ml @ As Directed STK-MED ONCE IV ; Start 02/05/19 at 07:21; Stop 02/05/19 at 07:22; Status DC Lidocaine HCl (Lidocaine Pf 2% Vial) 5 ml STK-MED ONCE .ROUTE ; Start 02/05/19 at 07:21; Stop 02/05/19 at 07:22; Status DC Ondansetron HCl (Zofran) 4 mg STK-MED ONCE .ROUTE ; Start 02/05/19 at 07:21; Stop 02/05/19 at 07:22; Status DC Dexamethasone Sodium Phosphate (Decadron) 4 mg STK-MED ONCE .ROUTE ; Start 02/05/19 at 07:21; Stop 02/05/19 at 07:22; Status DC Sevoflurane (Ultane) 30 ml STK-MED ONCE IH ; Start 02/05/19 at 07:21; Stop 02/05/19 at 07:22; Status DC Rocuronium Uledi (Zemuron) 50 mg STK-MED ONCE .ROUTE ; Start 02/05/19 at 07:21; Stop 02/05/19 at 07:22; Status DC Neostigmine Methylsulfate (Neostigmine Methylsulfate) 5 mg STK-MED ONCE .ROUTE ; Start 02/05/19 at 07:21; Stop 02/05/19 at 07:22; Status DC Glycopyrrolate (Robinul) 1 mg STK-MED ONCE .ROUTE ; Start 02/05/19 at 07:21; Stop 02/05/19 at 07:22; Status DC Bupivacaine HCl/ Epinephrine Bitart (Sensorcain-Mpf Epi 0.5%-1:[id number]) 30 ml STK-MED ONCE .ROUTE Last administered on 02/05/19at 07:51; Start 02/05/19 at 06:30; Stop 02/05/19 at 07:30; Status DC Sodium Chloride 1,000 ml @ 75 mls/hr [id number] IV Last administered on 02/05/19at 07:39; Start 02/05/19 at 07:45; Stop 02/06/19 at 03:36; Status DC Insulin Human Lispro (HumaLOG VIAL) 4 unit 1X ONCE SQ Last administered on 02/05/19 07:59; Start 02/05/19 at 08:00; Stop 02/05/19 at 08:01; Status DC Diphenhydramine HCl (Benadryl) 25 mg PRN Q6HRS PRN PO ITCHING Last administered on 02/06/19 03:38; Start 02/05/19 at 10:30 Heparin Sodium (Porcine) (Heparin Sodium) 5,000 unit Q8HRS SQ Last administered on 02/08/19 05:46; Start 02/05/19 at 22:00 Sodium Chloride (Normal Saline Flush) 3 ml QSHIFT PRN IV AFTER MEDS AND BLOOD DRAWS; Start 02/05/19 at 10:30 Sodium Chloride 1,000 ml @ 50 mls/hr Q20H IV Last administered on 02/05/19at 20:52; Start 02/05/19 at 10:30; Stop 02/06/19 at 14:04; Status DC Oxycodone/ Acetaminophen (Percocet 5/325) 1 tab PRN Q4HRS PRN PO MILD PAIN, 1ST CHOICE Last administered on 02/07/19 09:08; Start 02/05/19 at 10:30 Oxycodone/ Acetaminophen (Percocet 5/325) 2 tab PRN Q4HRS PRN PO MODERATE PAIN, SEVERE PAIN Last administered on 02/06/19at 21:15; Start 02/05/19 at 10:30 Hydromorphone HCl (Dilaudid) 1 mg PRN Q3HRS PRN IV PAIN Last administered on 02/07/19 21:03; Start 02/05/19 at 10:30 Docusate Sodium (Colace) 100 mg BID PO ; Start 02/05/19 at 21:00; Status UNV Ondansetron HCl (Zofran) 4 mg PRN Q6HRS PRN IV NAUESA, 1ST CHOICE Last administered on 02/07/19 16:22; Start 02/05/19 at 10:30 Amlodipine Besylate (Norvasc) 10 mg DAILY PO Last administered on 02/08/19 08:58; Start 02/05/19 at 12:00 Calcium Carbonate/ Glycine (Tums) 250 mg PRN BID PRN PO INDIGESTION; Start 02/05/19 at 10:45 Clonidine HCl (Catapres) 0.2 mg BID PO Last administered on 02/08/19 08:59; Start 02/05/19 at 12:00 Docusate Sodium (Colace) 100 mg BID PO Last administered on 02/08/19 08:59; Start 02/05/19 at 21:00 Furosemide (Lasix) 80 mg BID92 PO Last administered on 02/08/19 08:59; Start 02/05/19 at 14:00 Insulin Glargine (Lantus) 16 units HS SQ Last administered on 02/07/19 21:09; Start 02/05/19 at 21:00 Lisinopril (Prinivil) 40 mg BID PO Last administered on 02/08/19 08:57; Start 02/05/19 at 21:00 Sevelamer Carbonate (Renvela) 4,000 mg TIDWMEALS PO Last administered on 08:57; Start 02/05/19 at 12:00 Non-Formulary Medication (Albuterol Sulfate (Proair Respiclick)) one to two puffs q6hrs ... PRN Q6HRS PRN IH SHORTNESS OF BREATH; Start 02/05/19 at 10:45; Status UNV Calcitriol (Rocaltrol) 0.5 mcg DAILY PO Last administered on 02/08/19 08:58; Start 02/05/19 at 13:00 Carvedilol (Coreg) 25 mg BIDWMEALS PO Last administered on 02/08/19 08:58; Start 02/05/19 at 17:00 Vitamin D (Vitamin D3) 5,000 unit DAILY PO Last administered on 02/08/19 08:59; Start 02/05/19 at 13:00 Cinacalcet (Sensipar) 60 mg DAILY PO Last administered on 02/08/19 08:58; Start 02/05/19 at 13:00 Darbepoetin David (Aranesp) 25 mcg Th SQ ; Start 02/12/19 at 21:00; Stop 02/12/19 at 21:00; Status DC Fluticasone Propionate (Flonase) 2 spray DAILY NS Last administered on 02/07/19 09:06; Start 02/06/19 at 09:00 Pantoprazole Sodium (Protonix) 40 mg DAILYAC PO Last administered on 02/08/19 08:58; Start 02/05/19 at 16:30 Polyethylene Glycol (miraLAX PACKET) 17 gm DAILY PO Last administered on 02/08/19 08:59; Start 02/05/19 at 13:00 Sennosides (Senna) 8.6 mg BID PO Last administered on 02/08/19 08:56; Start 02/05/19 at 11:45 Simvastatin (Zocor) 20 mg HS PO Last administered on 02/07/19 21:02; Start 02/05/19 at 21:00 Vitamin B Complex/ Vitamin C (Johanna-Celia) 1 tab DAILY PO Last administered on 02/08/19 08:59; Start 02/05/19 at 13:00 Fentanyl Citrate (Fentanyl 2ml Vial) 100 mcg STK-MED ONCE .ROUTE ; Start 02/05/19 at 11:11; Stop 02/05/19 at 11:12; Status DC Albuterol Sulfate (Ventolin Neb Soln) 2.5 mg PRN Q6HRS PRN NEB SHORTNESS OF BREATH; Start 02/05/19 at 11:45 Fentanyl Citrate (Fentanyl 2ml Vial) 100 mcg STK-MED ONCE .ROUTE ; Start 02/05/19 at 11:56; Stop 02/05/19 at 11:57; Status DC Darbepoetin David (Aranesp) 100 mcg 1X ONCE SQ Last administered on 02/05/19at 14:48; Start 02/05/19 at 13:00; Stop 02/05/19 at 13:12; Status DC Acetaminophen (Tylenol) 500 mg PRN Q6HRS PRN PO MILD PAIN / TEMP; Start 02/05/19 at 13:30 Zolpidem Tartrate (Ambien) 5 mg PRN QHS PRN PO INSOMNIA; Start 02/05/19 at 13:30 Insulin Human Lispro (HumaLOG) 0-9 UNITS TIDWMEALS SQ ; Start 02/05/19 at 17:00; Stop 02/06/19 at 03:37; Status DC Dextrose (Dextrose 50%-Water Syringe) 12.5 gm PRN Q15MIN PRN IV SEE COMMENTS; Start 02/05/19 at 13:45; Stop 02/06/19 at 03:36; Status DC Insulin Human Lispro (HumaLOG) 4 units 1X ONCE SQ Last administered on 02/05/19at 20:59; Start 02/05/19 at 21:00; Stop 02/05/19 at 21:01; Status DC Insulin Human Lispro (HumaLOG) 12 units 1X ONCE SQ Last administered on 02/06/19at 03:42; Start 02/06/19 at 04:00; Stop 02/06/19 at 04:01; Status DC Insulin Human Lispro (HumaLOG) 0-9 UNITS TIDWMEALS SQ Last administered on 02/07/19at 12:25; Start 02/06/19 at 08:00 Dextrose (Dextrose 50%-Water Syringe) 12.5 gm PRN Q15MIN PRN IV SEE COMMENTS; Start 02/06/19 at 03:30 Calcium Gluconate (Calcium Gluconate) 1,000 mg 1X ONCE IVP ; Start 02/06/19 at 07:15; Stop 02/06/19 at 07:16; Status DC Sodium Chloride 1,000 ml @ 1,000 mls/hr Q1H PRN IV hypotension; Start 02/06/19 at 07:34; Stop 02/06/19 at 13:33; Status DC Albumin Human 200 ml @ 200 mls/hr 1X PRN PRN IV Hypotension; Start 02/06/19 at 07:45; Stop 02/06/19 at 13:44; Status DC Sodium Chloride (Normal Saline Flush) 10 ml 1X PRN PRN IV AP catheter pack; Start 02/06/19 at 07:45; Stop 02/07/19 at 07:44; Status DC Sodium Chloride (Normal Saline Flush) 10 ml 1X PRN PRN IV RN ADVICE catheter pack; Start 02/06/19 at 07:45; Stop 02/07/19 at 07:44; Status DC Sodium Chloride 1,000 ml @ 400 mls/hr Q2H30M PRN IV PATENCY; Start 02/06/19 at 07:34; Stop 02/06/19 at 19:33; Status DC Info (PHARMACY MONITORING -- do not chart) 1 each PRN DAILY PRN MC SEE COMMENTS; Start 02/06/19 at 07:45; Status UNV Info (PHARMACY MONITORING -- do not chart) 1 each PRN DAILY PRN MC SEE COMMENTS; Start 02/06/19 at 07:45 Darbepoetin David (Aranesp) 100 mcg Th SQ ; Start 02/12/19 at 21:00 Insulin Human Lispro (HumaLOG) 10 units 1X ONCE SQ ; Start 02/07/19 at 22:00; Stop 02/07/19 at 22:01; Status DC Active Scripts Active Percocet 5-325 Mg Tablet (Oxycodone/Acetaminophen) 1 Each Tablet 1 Tab PO PRN Q6HRS PRN Ondansetron Odt (Ondansetron) 4 Mg Tab.rapdis 1 Tab PO PRN Q6-8HRS PRN Reported Protonix (Pantoprazole Sodium) 20 Mg Tablet.dr 2 Tab PO DAILY Flonase Allergy Relief (Fluticasone Propionate) 9.9 Ml [place].susp 2 Sprays NS DAILY Procrit (Epoetin David) 10,000 Unit/1 Ml Vial 10,000 Unit IJ QSU Tums (Calcium Carbonate) 200 Mg Tab.chew 200 Mg PO BID PRN Proair Respiclick (Albuterol Sulfate) 90 Mcg Aer.pow.ba 1-2 Puff IH PRN Q6HRS PRN Senna (Sennosides) 8.6 Mg Tablet 8.6 Mg PO BID Miralax (Polyethylene Glycol 3350) 17 Gm Powd.pack 1 Packet PO DAILY Colace (Docusate Sodium) 100 Mg Capsule 1 Cap PO BID Carvedilol 25 Mg Tablet 25 Mg PO BIDWMEALS Renvela (Sevelamer Carbonate) 800 Mg Tablet 5 Tab PO TIDWMEALS Furosemide 80 Mg Tablet 1 Tab PO BID Vitamin D (Cholecalciferol (Vitamin D3)) 5,000 Unit Tablet 5,000 Unit PO DAILY Calcitriol 0.25 Mcg Capsule 2 Cap PO DAILY Clonidine Hcl 0.2 Mg Tablet 1 Tab PO BID Johanna-Celia Rx Tablet (Vit B Cmplx 3/Fa/Vit C/Biotin) 1 Each Tablet 1 Each PO DAILY Sensipar (Cinacalcet Hcl) 60 Mg Tablet 60 Mg PO DAILY Amlodipine Besylate 10 Mg Tablet 10 Mg PO DAILY Simvastatin 20 Mg Tablet 20 Mg PO HS Lisinopril 40 Mg Tablet 1 Tab PO BID Novolog (Insulin Aspart) 100 Unit/1 Ml Vial 100 Unit SQ sliding scale Lantus Solostar (Insulin Glargine,Hum.rec.anlog) 100 Unit/1 Ml Insuln.pen 16 Unit SQ HS Vitals/I & O Vital Sign - Last 24 Hours 02/07/19 02/07/19 02/07/19 02/07/19 11:20 15:20 15:51 16:37 Temp 98.9 98.0 98.9 98.0 Pulse 82 82 Resp 20 20 B/P (MAP) 143/84 (103) 138/86 (103) Pulse Ox 98 100 100 100 O2 Delivery Nasal Cannula Nasal Cannula Nasal Cannula O2 Flow Rate 2.0 2.0 2.0 02/07/19 02/07/19 02/07/19 02/07/19 18:23 19:59 20:00 21:02 Temp 98.2 98.2 Pulse 82 90 90 Resp 19 B/P (MAP) 138/86 155/87 (109) 155/87 Pulse Ox 96 O2 Delivery Nasal Cannula Nasal Cannula O2 Flow Rate 2.0 2.0 02/07/19 02/07/19 02/07/19 02/07/19 21:02 21:03 21:35 23:59 Temp 97.9 97.9 Pulse 90 89 Resp 18 B/P (MAP) 155/87 132/82 (99) Pulse Ox 94 O2 Delivery Nasal Cannula Nasal Cannula BiPAP/CPAP O2 Flow Rate 2.0 2.0 02/08/19 02/08/19 02/08/19 02/08/19 03:42 07:15 08:57 08:58 Temp 98.0 98.4 98.0 98.4 Pulse 83 112 112 112 Resp 18 19 B/P (MAP) 127/81 (96) 144/83 (103) 144/83 144/83 Pulse Ox 92 95 O2 Delivery BiPAP/CPAP Nasal Cannula O2 Flow Rate 2.0 02/08/19 02/08/19 08:58 08:59 Pulse 112 112 B/P (MAP) 144/83 144/83 Intake and Output 02/07/19 02/07/19 02/08/19 15:00 23:00 07:00 Intake Total 300 ml 440 ml 240 ml Output Total 130 ml Balance 300 ml 440 ml 110 ml ALVAREZ REHMAN MD Feb 08, 2019 10:01
[2019-02-08 11:06] VITALS: BP 129/76
[2019-02-08 15:14] VITALS: BP 124/76
--- NOTE | 2019-02-08 15:38 | PDOC ---
SURGICAL PROGRESS NOTE Subjective Pt feels better, would like to try soft diet Vital Signs Vital Signs Date Time Temp Pulse Resp B/P (MAP) Pulse Ox O2 Delivery O2 Flow Rate FiO2 02/08/19 15:14 99.0 88 19 124/76 (92) 98 Nasal Cannula 2.0 99.0 I&O Intake and Output 02/08/19 07:00 Intake Total 980 ml Output Total 130 ml Balance 850 ml Intake Oral 980 ml Output Drainage Total 130 ml General: Alert, Oriented X3, Cooperative, No acute distress Abdomen: Soft, No tenderness Labs Laboratory Tests Test 02/06/19 17:16 02/06/19 20:58 02/07/19 04:30 02/07/19 07:46 Glucose (Fingerstick) 207 mg/dL (70-99) 188 mg/dL (70-99) 192 mg/dL (70-99) White Blood Count 11.0 x10^3/uL (4.0-11.0) Red Blood Count 2.45 x10^6/uL (4.30-5.70) Hemoglobin 6.9 g/dL (13.0-17.5) Hematocrit 20.7 % (39.0-53.0) Mean Corpuscular Volume 85 fL (79-100) Mean Corpuscular Hemoglobin 28 pg (25-35) Mean Corpuscular Hemoglobin Concent 33 g/dL (31-37) Red Cell Distribution Width 17.5 % (11.5-14.5) Platelet Count 268 x10^3/uL (140-400) Sodium Level 137 mmol/L (136-145) Potassium Level 4.9 mmol/L (3.5-5.1) Chloride Level 98 mmol/L (98-107) Carbon Dioxide Level 30 mmol/L (21-32) Anion Gap 9 (6-14) Blood Urea Nitrogen 36 mg/dL (8-26) Creatinine 8.4 mg/dL (0.7-1.3) Estimated GFR (Cockcroft-Gault) 8.7 Glucose Level 220 mg/dL (70-99) Calcium Level 9.0 mg/dL (8.5-10.1) Test 02/07/19 11:04 02/07/19 16:54 02/07/19 21:03 02/08/19 03:45 Glucose (Fingerstick) 223 mg/dL (70-99) 161 mg/dL (70-99) 266 mg/dL (70-99) White Blood Count 8.4 x10^3/uL (4.0-11.0) Red Blood Count 2.08 x10^6/uL (4.30-5.70) Hemoglobin 5.8 g/dL (13.0-17.5) Hematocrit 17.6 % (39.0-53.0) Mean Corpuscular Volume 85 fL (79-100) Mean Corpuscular Hemoglobin 28 pg (25-35) Mean Corpuscular Hemoglobin Concent 33 g/dL (31-37) Red Cell Distribution Width 17.4 % (11.5-14.5) Platelet Count 246 x10^3/uL (140-400) Neutrophils (%) (Auto) 78 % (31-73) Lymphocytes (%) (Auto) 8 % (24-48) Monocytes (%) (Auto) 6 % (0-9) Eosinophils (%) (Auto) 8 % (0-3) Basophils (%) (Auto) 0 % (0-3) Neutrophils # (Auto) 6.6 x10^3uL (1.8-7.7) Lymphocytes # (Auto) 0.6 x10^3/uL (1.0-4.8) Monocytes # (Auto) 0.5 x10^3/uL (0.0-1.1) Eosinophils # (Auto) 0.7 x10^3/uL (0.0-0.7) Basophils # (Auto) 0.0 x10^3/uL (0.0-0.2) Sodium Level 139 mmol/L (136-145) Potassium Level 4.3 mmol/L (3.5-5.1) Chloride Level 97 mmol/L (98-107) Carbon Dioxide Level 32 mmol/L (21-32) Anion Gap 10 (6-14) Blood Urea Nitrogen 49 mg/dL (8-26) Creatinine 11.2 mg/dL (0.7-1.3) Estimated GFR (Cockcroft-Gault) 6.3 Glucose Level 193 mg/dL (70-99) Calcium Level 8.4 mg/dL (8.5-10.1) Phosphorus Level 6.0 mg/dL (2.6-4.7) Albumin 2.7 g/dL (3.4-5.0) Test 02/08/19 07:42 02/08/19 11:37 Glucose (Fingerstick) 168 mg/dL (70-99) 251 mg/dL (70-99) Laboratory Tests Test 02/07/19 16:54 02/07/19 21:03 02/08/19 03:45 02/08/19 07:42 Glucose (Fingerstick) 161 mg/dL (70-99) 266 mg/dL (70-99) 168 mg/dL (70-99) White Blood Count 8.4 x10^3/uL (4.0-11.0) Red Blood Count 2.08 x10^6/uL (4.30-5.70) Hemoglobin 5.8 g/dL (13.0-17.5) Hematocrit 17.6 % (39.0-53.0) Mean Corpuscular Volume 85 fL (79-100) Mean Corpuscular Hemoglobin 28 pg (25-35) Mean Corpuscular Hemoglobin Concent 33 g/dL (31-37) Red Cell Distribution Width 17.4 % (11.5-14.5) Platelet Count 246 x10^3/uL (140-400) Neutrophils (%) (Auto) 78 % (31-73) Lymphocytes (%) (Auto) 8 % (24-48) Monocytes (%) (Auto) 6 % (0-9) Eosinophils (%) (Auto) 8 % (0-3) Basophils (%) (Auto) 0 % (0-3) Neutrophils # (Auto) 6.6 x10^3uL (1.8-7.7) Lymphocytes # (Auto) 0.6 x10^3/uL (1.0-4.8) Monocytes # (Auto) 0.5 x10^3/uL (0.0-1.1) Eosinophils # (Auto) 0.7 x10^3/uL (0.0-0.7) Basophils # (Auto) 0.0 x10^3/uL (0.0-0.2) Sodium Level 139 mmol/L (136-145) Potassium Level 4.3 mmol/L (3.5-5.1) Chloride Level 97 mmol/L (98-107) Carbon Dioxide Level 32 mmol/L (21-32) Anion Gap 10 (6-14) Blood Urea Nitrogen 49 mg/dL (8-26) Creatinine 11.2 mg/dL (0.7-1.3) Estimated GFR (Cockcroft-Gault) 6.3 Glucose Level 193 mg/dL (70-99) Calcium Level 8.4 mg/dL (8.5-10.1) Phosphorus Level 6.0 mg/dL (2.6-4.7) Albumin 2.7 g/dL (3.4-5.0) Test 02/08/19 11:37 Glucose (Fingerstick) 251 mg/dL (70-99) Problem List s/p xlap advance to soft JENNIFER GREEN MD Feb 08, 2019 15:38
[2019-02-08] MEDS: oxyCODONE/APAP 5/325 1 TAB TABLET PO PRN (17:51)
[2019-02-08 19:00] VITALS: BP 119/73
[2019-02-08] MEDS: SIMVASTATIN 20 MG TABLET PO SCH (21:35)
[2019-02-08] MEDS: INSULIN GLARGINE 300 UNITS/3 ML INSULN.PEN. SQ SCH (21:40)
[2019-02-08 23:00] VITALS: BP 125/70
[2019-02-09] VITALS (8 sets, daily range): BP systolic 136–168; BP diastolic 80–100
[2019-02-09] MEDS: HEPARIN for SUB-Q USE 5,000 UNIT/ML VIAL. SQ SCH ×3 (04:47→20:48)
[2019-02-09] MEDS: SEVELAMER CARBONATE 800 MG TABLET. PO SCH ×3 (08:00→17:14)
[2019-02-09 08:51] LABS: BASO % 0 % (0-3); EOS # 0.7 x10^3/uL (0.0-0.7); EOS % 10 % (0-3); LYMPH # 0.7 x10^3/uL (1.0-4.8); LYMPH % 10 % (24-48); MEAN CORPUSCULAR HEMOGLOBIN 28 pg (25-35); MEAN CORPUSCULAR HGB CONC 34 g/dL (31-37); MEAN CORPUSCULAR VOLUME 84 fL (79-100); MONO # 0.4 x10^3/uL (0.0-1.1); MONO % 6 % (0-9); NEUT % 74 % (31-73); PLATELET COUNT 236 x10^3/uL (140-400); RED BLOOD COUNT 1.97 x10^6/uL (4.30-5.70); RED CELL DISTRIBUTION WIDTH 17.9 % (11.5-14.5); WHITE BLOOD COUNT 6.8 x10^3/uL (4.0-11.0)
[2019-02-09 08:57] LABS: HEMATOCRIT 16.6 % (39.0-53.0); HEMOGLOBIN 5.5 g/dL (13.0-17.5)
[2019-02-09] MEDS: FLUTICASONE 50MCG/NASAL SPRAY 16GM BOTTLE. NS SCH (09:00)
[2019-02-09] MEDS: CALCITRIOL 0.25 MCG CAPSULE. PO SCH (09:00)
[2019-02-09] MEDS: FUROSEMIDE 80 MG TABLET. PO SCH ×2 (09:00→14:21)
--- NOTE | 2019-02-09 09:00 | PDOC ---
MASON NEVAREZ SENIOR SUPPORT ENGINEER 02/09/19 0900: SURGICAL PROGRESS NOTE Subjective sleeping soundly, bipap in place binder on, gregoria serosang noted elevated BS-IPC managing Vital Signs Vital Signs Date Time Temp Pulse Resp B/P (MAP) Pulse Ox O2 Delivery O2 Flow Rate FiO2 02/09/19 07:00 98.5 74 18 139/81 (100) 90 BiPAP/CPAP 98.5 02/09/19 03:00 2.0 I&O Intake and Output 02/09/19 07:00 Intake Total 1280 ml Output Total 115 ml Balance 1165 ml Intake Oral 1280 ml Output Drainage Total 115 ml Labs Laboratory Tests Test 02/07/19 11:04 02/07/19 16:54 02/07/19 21:03 02/08/19 03:45 Glucose (Fingerstick) 223 mg/dL (70-99) 161 mg/dL (70-99) 266 mg/dL (70-99) White Blood Count 8.4 x10^3/uL (4.0-11.0) Red Blood Count 2.08 x10^6/uL (4.30-5.70) Hemoglobin 5.8 g/dL (13.0-17.5) Hematocrit 17.6 % (39.0-53.0) Mean Corpuscular Volume 85 fL (79-100) Mean Corpuscular Hemoglobin 28 pg (25-35) Mean Corpuscular Hemoglobin Concent 33 g/dL (31-37) Red Cell Distribution Width 17.4 % (11.5-14.5) Platelet Count 246 x10^3/uL (140-400) Neutrophils (%) (Auto) 78 % (31-73) Lymphocytes (%) (Auto) 8 % (24-48) Monocytes (%) (Auto) 6 % (0-9) Eosinophils (%) (Auto) 8 % (0-3) Basophils (%) (Auto) 0 % (0-3) Neutrophils # (Auto) 6.6 x10^3uL (1.8-7.7) Lymphocytes # (Auto) 0.6 x10^3/uL (1.0-4.8) Monocytes # (Auto) 0.5 x10^3/uL (0.0-1.1) Eosinophils # (Auto) 0.7 x10^3/uL (0.0-0.7) Basophils # (Auto) 0.0 x10^3/uL (0.0-0.2) Sodium Level 139 mmol/L (136-145) Potassium Level 4.3 mmol/L (3.5-5.1) Chloride Level 97 mmol/L (98-107) Carbon Dioxide Level 32 mmol/L (21-32) Anion Gap 10 (6-14) Blood Urea Nitrogen 49 mg/dL (8-26) Creatinine 11.2 mg/dL (0.7-1.3) Estimated GFR (Cockcroft-Gault) 6.3 Glucose Level 193 mg/dL (70-99) Calcium Level 8.4 mg/dL (8.5-10.1) Phosphorus Level 6.0 mg/dL (2.6-4.7) Albumin 2.7 g/dL (3.4-5.0) Test 02/08/19 07:42 02/08/19 11:37 02/08/19 16:44 02/08/19 20:35 Glucose (Fingerstick) 168 mg/dL (70-99) 251 mg/dL (70-99) 202 mg/dL (70-99) 239 mg/dL (70-99) Test 02/09/19 07:44 02/09/19 08:40 Glucose (Fingerstick) 320 mg/dL (70-99) White Blood Count 6.8 x10^3/uL (4.0-11.0) Red Blood Count 1.97 x10^6/uL (4.30-5.70) Hemoglobin 5.5 g/dL (13.0-17.5) Hematocrit 16.6 % (39.0-53.0) Mean Corpuscular Volume 84 fL (79-100) Mean Corpuscular Hemoglobin 28 pg (25-35) Mean Corpuscular Hemoglobin Concent 34 g/dL (31-37) Red Cell Distribution Width 17.9 % (11.5-14.5) Platelet Count 236 x10^3/uL (140-400) Neutrophils (%) (Auto) 74 % (31-73) Lymphocytes (%) (Auto) 10 % (24-48) Monocytes (%) (Auto) 6 % (0-9) Eosinophils (%) (Auto) 10 % (0-3) Basophils (%) (Auto) 0 % (0-3) Neutrophils # (Auto) 5.0 x10^3uL (1.8-7.7) Lymphocytes # (Auto) 0.7 x10^3/uL (1.0-4.8) Monocytes # (Auto) 0.4 x10^3/uL (0.0-1.1) Eosinophils # (Auto) 0.7 x10^3/uL (0.0-0.7) Basophils # (Auto) 0.0 x10^3/uL (0.0-0.2) Laboratory Tests Test 02/08/19 11:37 02/08/19 16:44 02/08/19 20:35 02/09/19 07:44 Glucose (Fingerstick) 251 mg/dL (70-99) 202 mg/dL (70-99) 239 mg/dL (70-99) 320 mg/dL (70-99) Test 02/09/19 08:40 White Blood Count 6.8 x10^3/uL (4.0-11.0) Red Blood Count 1.97 x10^6/uL (4.30-5.70) Hemoglobin 5.5 g/dL (13.0-17.5) Hematocrit 16.6 % (39.0-53.0) Mean Corpuscular Volume 84 fL (79-100) Mean Corpuscular Hemoglobin 28 pg (25-35) Mean Corpuscular Hemoglobin Concent 34 g/dL (31-37) Red Cell Distribution Width 17.9 % (11.5-14.5) Platelet Count 236 x10^3/uL (140-400) Neutrophils (%) (Auto) 74 % (31-73) Lymphocytes (%) (Auto) 10 % (24-48) Monocytes (%) (Auto) 6 % (0-9) Eosinophils (%) (Auto) 10 % (0-3) Basophils (%) (Auto) 0 % (0-3) Neutrophils # (Auto) 5.0 x10^3uL (1.8-7.7) Lymphocytes # (Auto) 0.7 x10^3/uL (1.0-4.8) Monocytes # (Auto) 0.4 x10^3/uL (0.0-1.1) Eosinophils # (Auto) 0.7 x10^3/uL (0.0-0.7) Basophils # (Auto) 0.0 x10^3/uL (0.0-0.2) PONCHO STRANGE MD 02/09/19 1155: SURGICAL PROGRESS NOTE Assessment/Plan pt seen in dialysis adequate pain control taking regular diet no BM since admission offered laxative or suppository/enema he declined MASON NEVAREZ APRN Feb 09, 2019 09:00 PONCHO STRANGE MD Feb 09, 2019 11:55
[2019-02-09 09:05] LABS: CALCIUM 8.3 mg/dL (8.5-10.1); CREATININE 14.4 mg/dL (0.7-1.3); GFR 4.7; POTASSIUM 5.4 mmol/L (3.5-5.1)
[2019-02-09] MEDS: INSULIN LISPRO 300 UNITS/3 ML INSULN.PEN. SQ SCH ×6 (09:14→17:24)
[2019-02-09] MEDS ORDERED: IV NORMAL SALINE 1000ML BAG 1,000 ML IV PRN ×2 (09:14)
[2019-02-09] MEDS ORDERED: DIALYSIS PATIENT. MC PRN ×2 (09:15)
--- NOTE | 2019-02-09 11:08 | PATHOLOGY ---
[facility] Accession Number: [id number] . 01 Material submitted: . abdomen - ABDOMINAL TISSUE -FS . 01 Frozen section diagnosis: . FROZEN SECTION GROSS DESCRIPTION: The specimen is received fresh for intraoperative consultation and is designated "abdominal tissue". This consists of a roughly elliptical shaped segment of wrinkled pink to segovia-brown membranous tissue measuring up to 4.5 x 2.0 x 0.5 cm in greatest dimension. The opposite broad surface shows focal yellow fatty tissue. Business Systems Advisor portions of the specimen are submitted for frozen section as FSA1. The tissue remaining from frozen section is submitted for permanent sections A1. The remainder of the specimen is submitted for microscopy as A2. (JPM:pit 02/05/2019) . INTRAOPERATIVE CONSULTATION WITH FROZEN SECTION: . FSA1. Abdominal tissue: - Fibrous membrane showing focal chronic inflammation. - The results are reported to Dr. Rodriguez in the operating room. (JPM:pit 02/05/2019) . Frozen section performed at [facility], [address] [place] [address], [place] [address]. /QTP . 02 Diagnosis: Segment of fibromembranous and fibroadipose tissue, designated, "abdominal tissue": - Fibrous membrane showing focal chronic inflammation, foreign body giant cell reaction, fat necrosis, and reactive fibrosis. . (JPM:mml; 02/06/2019) [facility]/02/06/2019 . 02 Comment: There is no evidence of malignancy. . (JPM:mml; 02/06/2019) . 02 Electronically signed: . Osbaldo Yeung MD, Pathologist NPI- [id number] . 01 Gross description: . PLEASE SEE FROZEN SECTION GROSS DESCRIPTION. /TOB . 02 Pathologist provided ICD-10: L08.9, L98.9, K65.4, L90.5 . 02 CPT . 266964, 913741 Specimen Comment: A courtesy copy of this report has been sent to Specimen Comment: [phone]. Specimen Comment: Report sent to Performed at: [address] [facility], [place] [id number] MD Olivier Pritchard MD Phone: [phone] Performed at: [facility] [address] [place], [place] [id number] MD Osbaldo Yeung MD Phone: [phone]
[2019-02-09] MEDS: FOLIC/VIT B COMP W-C (RENAL) TABLET. PO SCH (14:19)
[2019-02-09] MEDS: CINACALCET HCL 30 MG TABLET PO SCH (14:19)
[2019-02-09] MEDS: POLYETHYLENE GLYCOL 3350 17 GM PACKET. PO SCH (14:19)
[2019-02-09] MEDS: PANTOPRAZOLE 40 MG TABLET.DR. PO SCH (14:20)
[2019-02-09] MEDS: CARVEDILOL 12.5 MG TABLET. PO SCH ×2 (14:20→17:15)
[2019-02-09] MEDS: amLODIPine BESYLATE 10 MG TABLET PO SCH (14:21)
[2019-02-09] MEDS: SENNOSIDES 8.6 MG TABLET PO SCH ×2 (14:21→20:40)
[2019-02-09] MEDS: cloNIDine HCL 0.2 MG TABLET PO SCH ×2 (14:21→20:40)
[2019-02-09] MEDS: DOCUSATE SODIUM 100 MG CAPSULE. PO SCH ×2 (14:21→20:39)
[2019-02-09] MEDS: CHOLECALCIFEROL (VITAMIN D3) 5,000 UNIT CAPSULE PO SCH (14:21)
[2019-02-09] MEDS: LISINOPRIL 20 MG TABLET PO SCH ×2 (14:22→20:39)
--- NOTE | 2019-02-09 15:21 | PDOC ---
SUBJECTIVE ROS Seen on Hd tolerating well OBJECTIVE Vital Signs Vital Signs Date Time Temp Pulse Resp B/P (MAP) Pulse Ox O2 Delivery O2 Flow Rate FiO2 02/09/19 15:10 98.8 82 18 161/90 (113) 98 Nasal Cannula 2.0 98.8 I & 0 Intake and Output 02/09/19 06:59 Intake Total 1280 ml Output Total 115 ml Balance 1165 ml Intake Oral 1280 ml Output Drainage Total 115 ml PHYSICAL EXAM Physical Exam General: No acute distress HEENT: PERRLA, Mucous membr. 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 Has Tunnelled DC , will have AV access placed once Hgb improves - can be done as OP Hyperkalemia- Mild HD today Hyponatremia- Corrected for Glucose Malfunctioning PD cathter due to diffuse adhesions Removed Severe Anemia - Recommend to avoid PRBC Noted drop in Hgb, will transfuse 1 unit of PrBC on Hd today Continue Aranesp DM II- as per primary HTN COMMENT/RELEVANT DATA Meds Current Medications Medications (Trade) Dose Ordered Sig/Afua Start Time Stop Time Status Last Admin Dose Admin Acetaminophen (Tylenol) 500 mg PRN Q6HRS PRN 02/05/19 13:30 Albumin Human 200 ml @ 200 mls/hr 1X PRN PRN 02/06/19 07:45 02/06/19 13:44 DC Albuterol Sulfate (Ventolin Neb Soln) 2.5 mg PRN Q6HRS PRN 02/05/19 11:45 Amlodipine Besylate (Norvasc) 10 mg DAILY 02/05/19 12:00 02/09/19 14:21 10 MG Bupivacaine HCl/ Epinephrine Bitart (Sensorcain-Mpf Epi 0.5%-1:[id number]) 30 ml STK-MED ONCE 02/05/19 06:30 02/05/19 07:30 DC 02/05/19 07:51 10 ML Calcitriol (Rocaltrol) 0.5 mcg DAILY 02/05/19 13:00 02/08/19 08:58 0.5 MCG Calcium Carbonate/ Glycine (Tums) 250 mg PRN BID PRN 02/05/19 10:45 Calcium Gluconate (Calcium Gluconate) 1,000 mg 1X ONCE 02/06/19 07:15 02/06/19 07:16 DC Carvedilol (Coreg) 25 mg BIDWMEALS 02/05/19 17:00 02/09/19 14:20 25 MG Cinacalcet (Sensipar) 60 mg DAILY 02/05/19 13:00 02/09/19 14:19 60 MG Clonidine HCl (Catapres) 0.2 mg BID 02/05/19 12:00 02/09/19 14:21 0.2 MG Darbepoetin David (Aranesp) 100 mcg Th 02/12/19 21:00 Dexamethasone Sodium Phosphate (Decadron) 4 mg STK-MED ONCE 02/05/19 07:21 02/05/19 07:22 DC Dextrose (Dextrose 50%-Water Syringe) 12.5 gm PRN Q15MIN PRN 02/06/19 03:30 Diphenhydramine HCl (Benadryl) 25 mg PRN Q6HRS PRN 02/05/19 10:30 02/06/19 03:38 25 MG Docusate Sodium (Colace) 100 mg BID 02/05/19 21:00 02/09/19 14:21 100 MG Fentanyl Citrate (Fentanyl 2ml Vial) 100 mcg STK-MED ONCE 02/05/19 11:56 02/05/19 11:57 DC Fluticasone Propionate (Flonase) 2 spray DAILY 02/06/19 09:00 02/07/19 09:06 2 SPRAY Furosemide (Lasix) 80 mg [id number] 02/05/19 14:00 02/09/19 14:21 80 MG Glycopyrrolate (Robinul) 1 mg STK-MED ONCE 02/05/19 07:21 02/05/19 07:22 DC Heparin Sodium (Porcine) (Heparin Sodium) 5,000 unit Q8HRS 02/05/19 22:00 02/08/19 05:46 5,000 UNIT Heparin Sodium (Porcine) 5000 unit/Sodium Chloride 505 ml @ 505 mls/hr 1X ONCE 02/05/19 06:00 02/05/19 06:59 DC 02/05/19 07:52 Hydromorphone HCl (Dilaudid) 1 mg PRN Q3HRS PRN 02/05/19 10:30 02/07/19 21:03 1 MG Info (PHARMACY MONITORING -- do not chart) 1 each PRN DAILY PRN 02/09/19 09:15 UNV Insulin Glargine (Lantus) 16 units HS 02/05/19 21:00 02/08/19 21:40 16 UNITS Insulin Human Lispro (HumaLOG VIAL) 4 unit 1X ONCE 02/05/19 08:00 02/05/19 08:01 DC 02/05/19 07:59 4 UNIT Insulin Human Lispro (HumaLOG) 3 units TIDWMEALS 02/09/19 08:30 02/09/19 12:00 3 UNITS Levofloxacin/ Dextrose 100 ml @ 100 mls/hr 1X PREOP PRN 02/05/19 06:00 02/05/19 18:00 DC 02/05/19 07:35 100 MLS/HR Lidocaine HCl (Lidocaine Pf 2% Vial) 5 ml STK-MED ONCE 02/05/19 07:21 02/05/19 07:22 DC Lidocaine HCl (Xylocaine-Mpf 1% 2ml Vial) 2 ml PRN 1X PRN 02/05/19 07:00 02/05/19 20:00 DC Lisinopril (Prinivil) 40 mg BID 02/05/19 21:00 02/09/19 14:22 40 MG Morphine Sulfate (Morphine Sulfate) 1 mg PRN Q10MIN PRN 02/05/19 07:00 02/05/19 20:00 DC Neostigmine Methylsulfate (Neostigmine Methylsulfate) 5 mg STK-MED ONCE 02/05/19 07:21 02/05/19 07:22 DC Non-Formulary Medication (Albuterol Sulfate (Proair Respiclick)) one to two puffs q6hrs ... PRN Q6HRS PRN 4/25/19 10:45 UNV Ondansetron HCl (Zofran) 4 mg PRN Q6HRS PRN 02/05/19 10:30 02/07/19 16:22 4 MG Oxycodone/ Acetaminophen (Percocet 5/325) 2 tab PRN Q4HRS PRN 02/05/19 10:30 02/08/19 17:51 2 TAB Pantoprazole Sodium (Protonix) 40 mg DAILYAC 02/05/19 16:30 02/09/19 14:20 40 MG Polyethylene Glycol (miraLAX PACKET) 17 gm DAILY 02/05/19 13:00 02/09/19 14:19 17 GM Prochlorperazine Edisylate (Compazine) 5 mg PACU PRN PRN 02/05/19 07:00 02/05/19 20:00 DC Propofol 20 ml @ As Directed STK-MED ONCE 02/05/19 07:21 02/05/19 07:22 DC Ringer's Solution 1,000 ml @ 30 mls/hr Q24H 02/05/19 07:00 02/05/19 18:59 Cancel Rocuronium [place] (Zemuron) 50 mg STK-MED ONCE 02/05/19 07:21 02/05/19 07:22 DC Sennosides (Senna) 8.6 mg BID 02/05/19 11:45 02/09/19 14:21 8.6 MG Sevelamer Carbonate (Renvela) 4,000 mg TIDWMEALS 02/05/19 12:00 02/09/19 14:20 3,200 MG Sevoflurane (Ultane) 30 ml STK-MED ONCE 02/05/19 07:21 02/05/19 07:22 DC Simvastatin (Zocor) 20 mg HS 02/05/19 21:00 02/08/19 21:35 20 MG Sodium Chloride 1,000 ml @ 400 mls/hr Q2H30M PRN 02/09/19 09:14 02/09/19 21:13 Sodium Chloride (Normal Saline Flush) 10 ml 1X PRN PRN 02/06/19 07:45 02/07/19 07:44 DC Vitamin B Complex/ Vitamin C (Johanna-Celia) 1 tab DAILY 02/05/19 13:00 02/09/19 14:19 1 TAB Vitamin D (Vitamin D3) 5,000 unit DAILY 02/05/19 13:00 02/09/19 14:21 5,000 UNIT Zolpidem Tartrate (Ambien) 5 mg PRN QHS PRN 02/05/19 13:30 Lab Laboratory Tests Test 02/08/19 16:44 02/08/19 20:35 02/09/19 07:44 02/09/19 08:40 Glucose (Fingerstick) 202 mg/dL (70-99) 239 mg/dL (70-99) 320 mg/dL (70-99) White Blood Count 6.8 x10^3/uL (4.0-11.0) Red Blood Count 1.97 x10^6/uL (4.30-5.70) Hemoglobin 5.5 g/dL (13.0-17.5) Hematocrit 16.6 % (39.0-53.0) Mean Corpuscular Volume 84 fL (79-100) Mean Corpuscular Hemoglobin 28 pg (25-35) Mean Corpuscular Hemoglobin Concent 34 g/dL (31-37) Red Cell Distribution Width 17.9 % (11.5-14.5) Platelet Count 236 x10^3/uL (140-400) Neutrophils (%) (Auto) 74 % (31-73) Lymphocytes (%) (Auto) 10 % (24-48) Monocytes (%) (Auto) 6 % (0-9) Eosinophils (%) (Auto) 10 % (0-3) Basophils (%) (Auto) 0 % (0-3) Neutrophils # (Auto) 5.0 x10^3uL (1.8-7.7) Lymphocytes # (Auto) 0.7 x10^3/uL (1.0-4.8) Monocytes # (Auto) 0.4 x10^3/uL (0.0-1.1) Eosinophils # (Auto) 0.7 x10^3/uL (0.0-0.7) Basophils # (Auto) 0.0 x10^3/uL (0.0-0.2) Sodium Level 132 mmol/L (136-145) Potassium Level 5.4 mmol/L (3.5-5.1) Chloride Level 94 mmol/L (98-107) Carbon Dioxide Level 28 mmol/L (21-32) Anion Gap 10 (6-14) Blood Urea Nitrogen 59 mg/dL (8-26) Creatinine 14.4 mg/dL (0.7-1.3) Estimated GFR (Cockcroft-Gault) 4.7 Glucose Level 389 mg/dL (70-99) Calcium Level 8.3 mg/dL (8.5-10.1) Test 02/09/19 14:02 Glucose (Fingerstick) 117 mg/dL (70-99) Results All relevant outside records, renal labs, imaging studies, telemetry/EKG's were reviewed. AYANNA PEREZ MD Feb 09, 2019 15:21
--- NOTE | 2019-02-09 15:44 | PDOC ---
PROGRESS NOTES Chief Complaint Chief Complaint Malfunctioning PD catheter, removed by GS intra op-02/05/19 ESRD. prev PD, now HD through right subclavian since November 2018 Anemia of ESRD Hypertension Diabetes type 1 History of Present Illness History of Present Illness 1 u pRBC today erik following, patient is scheduled to get a renal transplant soon, Pain control OK Patinet would like to advance diet, pain better, no stool since day of surgery HD per renal cont aranesp Vitals Vitals Vital Signs Date Time Temp Pulse Resp B/P (MAP) Pulse Ox O2 Delivery O2 Flow Rate FiO2 02/09/19 15:10 98.8 82 18 161/90 (113) 98 Nasal Cannula 2.0 98.8 Physical Exam Physical Exam (binder on, small amount of serosanguineous drainage in bulb) General: Alert, Oriented X3, Cooperative, No acute distress Heart: Regular rate, Normal S1, Normal S2, No murmurs Lungs: Clear Abdomen: Soft, No tenderness Extremities: No clubbing, No cyanosis Skin: No breakdown Labs LABS Laboratory Tests Test 02/08/19 16:44 02/08/19 20:35 02/09/19 07:44 02/09/19 08:40 Glucose (Fingerstick) 202 mg/dL (70-99) 239 mg/dL (70-99) 320 mg/dL (70-99) White Blood Count 6.8 x10^3/uL (4.0-11.0) Red Blood Count 1.97 x10^6/uL (4.30-5.70) Hemoglobin 5.5 g/dL (13.0-17.5) Hematocrit 16.6 % (39.0-53.0) Mean Corpuscular Volume 84 fL (79-100) Mean Corpuscular Hemoglobin 28 pg (25-35) Mean Corpuscular Hemoglobin Concent 34 g/dL (31-37) Red Cell Distribution Width 17.9 % (11.5-14.5) Platelet Count 236 x10^3/uL (140-400) Neutrophils (%) (Auto) 74 % (31-73) Lymphocytes (%) (Auto) 10 % (24-48) Monocytes (%) (Auto) 6 % (0-9) Eosinophils (%) (Auto) 10 % (0-3) Basophils (%) (Auto) 0 % (0-3) Neutrophils # (Auto) 5.0 x10^3uL (1.8-7.7) Lymphocytes # (Auto) 0.7 x10^3/uL (1.0-4.8) Monocytes # (Auto) 0.4 x10^3/uL (0.0-1.1) Eosinophils # (Auto) 0.7 x10^3/uL (0.0-0.7) Basophils # (Auto) 0.0 x10^3/uL (0.0-0.2) Sodium Level 132 mmol/L (136-145) Potassium Level 5.4 mmol/L (3.5-5.1) Chloride Level 94 mmol/L (98-107) Carbon Dioxide Level 28 mmol/L (21-32) Anion Gap 10 (6-14) Blood Urea Nitrogen 59 mg/dL (8-26) Creatinine 14.4 mg/dL (0.7-1.3) Estimated GFR (Cockcroft-Gault) 4.7 Glucose Level 389 mg/dL (70-99) Calcium Level 8.3 mg/dL (8.5-10.1) Test 02/09/19 14:02 Glucose (Fingerstick) 117 mg/dL (70-99) Comment Review of Relevant I have reviewed the following items javy (where applicable) has been applied. Labs Laboratory Tests Test 02/07/19 16:54 02/07/19 21:03 02/08/19 03:45 02/08/19 07:42 Glucose (Fingerstick) 161 mg/dL (70-99) 266 mg/dL (70-99) 168 mg/dL (70-99) White Blood Count 8.4 x10^3/uL (4.0-11.0) Red Blood Count 2.08 x10^6/uL (4.30-5.70) Hemoglobin 5.8 g/dL (13.0-17.5) Hematocrit 17.6 % (39.0-53.0) Mean Corpuscular Volume 85 fL (79-100) Mean Corpuscular Hemoglobin 28 pg (25-35) Mean Corpuscular Hemoglobin Concent 33 g/dL (31-37) Red Cell Distribution Width 17.4 % (11.5-14.5) Platelet Count 246 x10^3/uL (140-400) Neutrophils (%) (Auto) 78 % (31-73) Lymphocytes (%) (Auto) 8 % (24-48) Monocytes (%) (Auto) 6 % (0-9) Eosinophils (%) (Auto) 8 % (0-3) Basophils (%) (Auto) 0 % (0-3) Neutrophils # (Auto) 6.6 x10^3uL (1.8-7.7) Lymphocytes # (Auto) 0.6 x10^3/uL (1.0-4.8) Monocytes # (Auto) 0.5 x10^3/uL (0.0-1.1) Eosinophils # (Auto) 0.7 x10^3/uL (0.0-0.7) Basophils # (Auto) 0.0 x10^3/uL (0.0-0.2) Sodium Level 139 mmol/L (136-145) Potassium Level 4.3 mmol/L (3.5-5.1) Chloride Level 97 mmol/L (98-107) Carbon Dioxide Level 32 mmol/L (21-32) Anion Gap 10 (6-14) Blood Urea Nitrogen 49 mg/dL (8-26) Creatinine 11.2 mg/dL (0.7-1.3) Estimated GFR (Cockcroft-Gault) 6.3 Glucose Level 193 mg/dL (70-99) Calcium Level 8.4 mg/dL (8.5-10.1) Phosphorus Level 6.0 mg/dL (2.6-4.7) Albumin 2.7 g/dL (3.4-5.0) Test 02/08/19 11:37 02/08/19 16:44 02/08/19 20:35 02/09/19 07:44 Glucose (Fingerstick) 251 mg/dL (70-99) 202 mg/dL (70-99) 239 mg/dL (70-99) 320 mg/dL (70-99) Test 02/09/19 08:40 02/09/19 14:02 White Blood Count 6.8 x10^3/uL (4.0-11.0) Red Blood Count 1.97 x10^6/uL (4.30-5.70) Hemoglobin 5.5 g/dL (13.0-17.5) Hematocrit 16.6 % (39.0-53.0) Mean Corpuscular Volume 84 fL (79-100) Mean Corpuscular Hemoglobin 28 pg (25-35) Mean Corpuscular Hemoglobin Concent 34 g/dL (31-37) Red Cell Distribution Width 17.9 % (11.5-14.5) Platelet Count 236 x10^3/uL (140-400) Neutrophils (%) (Auto) 74 % (31-73) Lymphocytes (%) (Auto) 10 % (24-48) Monocytes (%) (Auto) 6 % (0-9) Eosinophils (%) (Auto) 10 % (0-3) Basophils (%) (Auto) 0 % (0-3) Neutrophils # (Auto) 5.0 x10^3uL (1.8-7.7) Lymphocytes # (Auto) 0.7 x10^3/uL (1.0-4.8) Monocytes # (Auto) 0.4 x10^3/uL (0.0-1.1) Eosinophils # (Auto) 0.7 x10^3/uL (0.0-0.7) Basophils # (Auto) 0.0 x10^3/uL (0.0-0.2) Sodium Level 132 mmol/L (136-145) Potassium Level 5.4 mmol/L (3.5-5.1) Chloride Level 94 mmol/L (98-107) Carbon Dioxide Level 28 mmol/L (21-32) Anion Gap 10 (6-14) Blood Urea Nitrogen 59 mg/dL (8-26) Creatinine 14.4 mg/dL (0.7-1.3) Estimated GFR (Cockcroft-Gault) 4.7 Glucose Level 389 mg/dL (70-99) Calcium Level 8.3 mg/dL (8.5-10.1) Glucose (Fingerstick) 117 mg/dL (70-99) Laboratory Tests Test 02/08/19 16:44 02/08/19 20:35 02/09/19 07:44 02/09/19 08:40 Glucose (Fingerstick) 202 mg/dL (70-99) 239 mg/dL (70-99) 320 mg/dL (70-99) White Blood Count 6.8 x10^3/uL (4.0-11.0) Red Blood Count 1.97 x10^6/uL (4.30-5.70) Hemoglobin 5.5 g/dL (13.0-17.5) Hematocrit 16.6 % (39.0-53.0) Mean Corpuscular Volume 84 fL (79-100) Mean Corpuscular Hemoglobin 28 pg (25-35) Mean Corpuscular Hemoglobin Concent 34 g/dL (31-37) Red Cell Distribution Width 17.9 % (11.5-14.5) Platelet Count 236 x10^3/uL (140-400) Neutrophils (%) (Auto) 74 % (31-73) Lymphocytes (%) (Auto) 10 % (24-48) Monocytes (%) (Auto) 6 % (0-9) Eosinophils (%) (Auto) 10 % (0-3) Basophils (%) (Auto) 0 % (0-3) Neutrophils # (Auto) 5.0 x10^3uL (1.8-7.7) Lymphocytes # (Auto) 0.7 x10^3/uL (1.0-4.8) Monocytes # (Auto) 0.4 x10^3/uL (0.0-1.1) Eosinophils # (Auto) 0.7 x10^3/uL (0.0-0.7) Basophils # (Auto) 0.0 x10^3/uL (0.0-0.2) Sodium Level 132 mmol/L (136-145) Potassium Level 5.4 mmol/L (3.5-5.1) Chloride Level 94 mmol/L (98-107) Carbon Dioxide Level 28 mmol/L (21-32) Anion Gap 10 (6-14) Blood Urea Nitrogen 59 mg/dL (8-26) Creatinine 14.4 mg/dL (0.7-1.3) Estimated GFR (Cockcroft-Gault) 4.7 Glucose Level 389 mg/dL (70-99) Calcium Level 8.3 mg/dL (8.5-10.1) Test 02/09/19 14:02 Glucose (Fingerstick) 117 mg/dL (70-99) Medications Current Medications Heparin Sodium (Porcine) 5000 unit/Sodium Chloride 505 ml @ 505 mls/hr 1X ONCE IRR Last administered on 02/05/19at 07:52; Start 02/05/19 at 06:00; Stop 02/05/19 at 06:59; Status DC Ondansetron HCl (Zofran) 4 mg PRN Q6HRS PRN IV NAUSEA/VOMITING; Start 02/05/19 at 07:00; Stop 02/05/19 at 20:00; Status DC Fentanyl Citrate (Fentanyl 2ml Vial) 25 mcg PRN Q5MIN PRN IV MILD PAIN; Start 02/05/19 at 07:00; Stop 02/05/19 at 20:00; Status DC Fentanyl Citrate (Fentanyl 2ml Vial) 50 mcg PRN Q5MIN PRN IV MODERATE TO SEVERE PAIN Last administered on 02/05/19at 11:58; Start 02/05/19 at 07:00; Stop 02/05/19 at 20:00; Status DC Morphine Sulfate (Morphine Sulfate) 1 mg PRN Q10MIN PRN IV SEVERE PAIN; Start 02/05/19 at 07:00; Stop 02/05/19 at 20:00; Status DC Ringer's Solution 1,000 ml @ 30 mls/hr Q24H IV ; Start 02/05/19 at 07:00; Stop 02/05/19 at 18:59; Status Cancel Lidocaine HCl (Xylocaine-Mpf 1% 2ml Vial) 2 ml PRN 1X PRN ID PRIOR TO IV START; Start 02/05/19 at 07:00; Stop 02/05/19 at 20:00; Status DC Hydromorphone HCl (Dilaudid) 0.5 mg PRN Q10MIN PRN IV SEV PAIN, Second choice; Start 02/05/19 at 07:00; Stop 02/05/19 at 20:00; Status DC Prochlorperazine Edisylate (Compazine) 5 mg PACU PRN PRN IV NAUSEA, MRX1; Start 02/05/19 at 07:00; Stop 02/05/19 at 20:00; Status DC Levofloxacin/ Dextrose 100 ml @ 100 mls/hr 1X PREOP PRN IV PRIOR TO PROCEDURE Last administered on 02/05/19at 07:35; Start 02/05/19 at 06:00; Stop 02/05/19 at 18:00; Status DC Propofol 20 ml @ As Directed STK-MED ONCE IV ; Start 02/05/19 at 07:21; Stop 02/05/19 at 07:22; Status DC Lidocaine HCl (Lidocaine Pf 2% Vial) 5 ml STK-MED ONCE .ROUTE ; Start 02/05/19 at 07:21; Stop 02/05/19 at 07:22; Status DC Ondansetron HCl (Zofran) 4 mg STK-MED ONCE .ROUTE ; Start 02/05/19 at 07:21; Stop 02/05/19 at 07:22; Status DC Dexamethasone Sodium Phosphate (Decadron) 4 mg STK-MED ONCE .ROUTE ; Start 02/05/19 at 07:21; Stop 02/05/19 at 07:22; Status DC Sevoflurane (Ultane) 30 ml STK-MED ONCE IH ; Start 02/05/19 at 07:21; Stop 02/05/19 at 07:22; Status DC Rocuronium [place] (Zemuron) 50 mg STK-MED ONCE .ROUTE ; Start 02/05/19 at 07:21; Stop 02/05/19 at 07:22; Status DC Neostigmine Methylsulfate (Neostigmine Methylsulfate) 5 mg STK-MED ONCE .ROUTE ; Start 02/05/19 at 07:21; Stop 02/05/19 at 07:22; Status DC Glycopyrrolate (Robinul) 1 mg STK-MED ONCE .ROUTE ; Start 02/05/19 at 07:21; Stop 02/05/19 at 07:22; Status DC Bupivacaine HCl/ Epinephrine Bitart (Sensorcain-Mpf Epi 0.5%-[id number]) 30 ml STK-MED ONCE .ROUTE Last administered on 02/05/19at 07:51; Start 02/05/19 at 06:30; Stop 02/05/19 at 07:30; Status DC Sodium Chloride 1,000 ml @ 75 mls/hr [id number] IV Last administered on 02/05/19at 07:39; Start 02/05/19 at 07:45; Stop 02/06/19 at 03:36; Status DC Insulin Human Lispro (HumaLOG VIAL) 4 unit 1X ONCE SQ Last administered on 02/05/19at 07:59; Start 02/05/19 at 08:00; Stop 02/05/19 at 08:01; Status DC Diphenhydramine HCl (Benadryl) 25 mg PRN Q6HRS PRN PO ITCHING Last administered on 02/06/19 03:38; Start 02/05/19 at 10:30 Heparin Sodium (Porcine) (Heparin Sodium) 5,000 unit Q8HRS SQ Last administered on 02/08/19 05:46; Start 02/05/19 at 22:00 Sodium Chloride (Normal Saline Flush) 3 ml QSHIFT PRN IV AFTER MEDS AND BLOOD DRAWS; Start 02/05/19 at 10:30 Sodium Chloride 1,000 ml @ 50 mls/hr Q20H IV Last administered on 02/05/19 20:52; Start 02/05/19 at 10:30; Stop 02/06/19 at 14:04; Status DC Oxycodone/ Acetaminophen (Percocet 5/325) 1 tab PRN Q4HRS PRN PO MILD PAIN, 1ST CHOICE Last administered on 02/07/19 09:08; Start 02/05/19 at 10:30 Oxycodone/ Acetaminophen (Percocet 5/325) 2 tab PRN Q4HRS PRN PO MODERATE PAIN, SEVERE PAIN Last administered on 02/08/19 17:51; Start 02/05/19 at 10:30 Hydromorphone HCl (Dilaudid) 1 mg PRN Q3HRS PRN IV PAIN Last administered on 02/07/19 21:03; Start 02/05/19 at 10:30 Docusate Sodium (Colace) 100 mg BID PO ; Start 02/05/19 at 21:00; Status UNV Ondansetron HCl (Zofran) 4 mg PRN Q6HRS PRN IV NAUESA, 1ST CHOICE Last administered on 02/07/19 16:22; Start 02/05/19 at 10:30 Amlodipine Besylate (Norvasc) 10 mg DAILY PO Last administered on 02/09/19 14:21; Start 02/05/19 at 12:00 Calcium Carbonate/ Glycine (Tums) 250 mg PRN BID PRN PO INDIGESTION; Start 02/05/19 at 10:45 Clonidine HCl (Catapres) 0.2 mg BID PO Last administered on 02/09/19 14:21; Start 02/05/19 at 12:00 Docusate Sodium (Colace) 100 mg BID PO Last administered on 02/09/19 14:21; Start 02/05/19 at 21:00 Furosemide (Lasix) 80 mg BID92 PO Last administered on 02/09/19 14:21; Start 02/05/19 at 14:00 Insulin Glargine (Lantus) 16 units HS SQ Last administered on 02/08/19 21:40; Start 02/05/19 at 21:00 Lisinopril (Prinivil) 40 mg BID PO Last administered on 02/09/19 14:22; Start 02/05/19 at 21:00 Sevelamer Carbonate (Renvela) 4,000 mg TIDWMEALS PO Last administered on 02/09/19 14:20; Start 02/05/19 at 12:00 Non-Formulary Medication (Albuterol Sulfate (Proair Respiclick)) one to two puffs q6hrs ... PRN Q6HRS PRN IH SHORTNESS OF BREATH; Start 02/05/19 at 10:45; Status UNV Calcitriol (Rocaltrol) 0.5 mcg DAILY PO Last administered on 02/08/19 08:58; Start 02/05/19 at 13:00 Carvedilol (Coreg) 25 mg BIDWMEALS PO Last administered on 02/09/19 14:20; Start 02/05/19 at 17:00 Vitamin D (Vitamin D3) 5,000 unit DAILY PO Last administered on 02/09/19 14:21; Start 02/05/19 at 13:00 Cinacalcet (Sensipar) 60 mg DAILY PO Last administered on 02/09/19 14:19; Start 02/05/19 at 13:00 Darbepoetin David (Aranesp) 25 mcg Th SQ ; Start 02/12/19 at 21:00; Stop 02/12/19 at 21:00; Status DC Fluticasone Propionate (Flonase) 2 spray DAILY NS Last administered on 02/07/19 09:06; Start 02/06/19 at 09:00 Pantoprazole Sodium (Protonix) 40 mg DAILYAC PO Last administered on 02/09/19 14:20; Start 02/05/19 at 16:30 Polyethylene Glycol (miraLAX PACKET) 17 gm DAILY PO Last administered on 02/09/19at 14:19; Start 02/05/19 at 13:00 Sennosides (Senna) 8.6 mg BID PO Last administered on 02/09/19at 14:21; Start 02/05/19 at 11:45 Simvastatin (Zocor) 20 mg HS PO Last administered on 02/08/19at 21:35; Start 02/05/19 at 21:00 Vitamin B Complex/ Vitamin C (Erik-Celia) 1 tab DAILY PO Last administered on 02/09/19at 14:19; Start 02/05/19 at 13:00 Fentanyl Citrate (Fentanyl 2ml Vial) 100 mcg STK-MED ONCE .ROUTE ; Start 02/05/19 at 11:11; Stop 02/05/19 at 11:12; Status DC Albuterol Sulfate (Ventolin Neb Soln) 2.5 mg PRN Q6HRS PRN NEB SHORTNESS OF BREATH; Start 02/05/19 at 11:45 Fentanyl Citrate (Fentanyl 2ml Vial) 100 mcg STK-MED ONCE .ROUTE ; Start 02/05/19 at 11:56; Stop 02/05/19 at 11:57; Status DC Darbepoetin David (Aranesp) 100 mcg 1X ONCE SQ Last administered on 02/05/19at 14:48; Start 02/05/19 at 13:00; Stop 02/05/19 at 13:12; Status DC Acetaminophen (Tylenol) 500 mg PRN Q6HRS PRN PO MILD PAIN / TEMP; Start 02/05/19 at 13:30 Zolpidem Tartrate (Ambien) 5 mg PRN QHS PRN PO INSOMNIA; Start 02/05/19 at 13:30 Insulin Human Lispro (HumaLOG) 0-9 UNITS TIDWMEALS SQ ; Start 02/05/19 at 17:00; Stop 02/06/19 at 03:37; Status DC Dextrose (Dextrose 50%-Water Syringe) 12.5 gm PRN Q15MIN PRN IV SEE COMMENTS; Start 02/05/19 at 13:45; Stop 02/06/19 at 03:36; Status DC Insulin Human Lispro (HumaLOG) 4 units 1X ONCE SQ Last administered on 02/05/19at 20:59; Start 02/05/19 at 21:00; Stop 02/05/19 at 21:01; Status DC Insulin Human Lispro (HumaLOG) 12 units 1X ONCE SQ Last administered on 02/06/19at 03:42; Start 02/06/19 at 04:00; Stop 02/06/19 at 04:01; Status DC Insulin Human Lispro (HumaLOG) 0-9 UNITS TIDWMEALS SQ Last administered on 02/09/19at 09:14; Start 02/06/19 at 08:00 Dextrose (Dextrose 50%-Water Syringe) 12.5 gm PRN Q15MIN PRN IV SEE COMMENTS; Start 02/06/19 at 03:30 Calcium Gluconate (Calcium Gluconate) 1,000 mg 1X ONCE IVP ; Start 02/06/19 at 07:15; Stop 02/06/19 at 07:16; Status DC Sodium Chloride 1,000 ml @ 1,000 mls/hr Q1H PRN IV hypotension; Start 02/06/19 at 07:34; Stop 02/06/19 at 13:33; Status DC Albumin Human 200 ml @ 200 mls/hr 1X PRN PRN IV Hypotension; Start 02/06/19 at 07:45; Stop 02/06/19 at 13:44; Status DC Sodium Chloride (Normal Saline Flush) 10 ml 1X PRN PRN IV AP catheter pack; Start 02/06/19 at 07:45; Stop 02/07/19 at 07:44; Status DC Sodium Chloride (Normal Saline Flush) 10 ml 1X PRN PRN IV SKEIN YARN DYER catheter pack; Start 02/06/19 at 07:45; Stop 02/07/19 at 07:44; Status DC Sodium Chloride 1,000 ml @ 400 mls/hr Q2H30M PRN IV PATENCY; Start 02/06/19 at 07:34; Stop 02/06/19 at 19:33; Status DC Info (PHARMACY MONITORING -- do not chart) 1 each PRN DAILY PRN MC SEE COMMENTS; Start 02/06/19 at 07:45; Status UNV Info (PHARMACY MONITORING -- do not chart) 1 each PRN DAILY PRN MC SEE COMMENTS; Start 02/06/19 at 07:45 Darbepoetin David (Aranesp) 100 mcg Th SQ ; Start 02/12/19 at 21:00 Insulin Human Lispro (HumaLOG) 10 units 1X ONCE SQ ; Start 02/07/19 at 22:00; Stop 02/07/19 at 22:01; Status DC Insulin Human Lispro (HumaLOG) 3 units TIDWMEALS SQ Last administered on 02/09/19at 12:00; Start 02/09/19 at 08:30 Sodium Chloride 1,000 ml @ 1,000 mls/hr Q1H PRN IV hypotension; Start 02/09/19 at 09:14; Stop 02/09/19 at 15:13; Status DC Sodium Chloride 1,000 ml @ 400 mls/hr Q2H30M PRN IV PATENCY; Start 02/09/19 at 09:14; Stop 02/09/19 at 21:13 Info (PHARMACY MONITORING -- do not chart) 1 each PRN DAILY PRN MC SEE COMMENTS; Start 02/09/19 at 09:15 Info (PHARMACY MONITORING -- do not chart) 1 each PRN DAILY PRN MC SEE COMMENTS; Start 02/09/19 at 09:15; Status UNV Active Scripts Active Percocet 5-325 Mg Tablet (Oxycodone/Acetaminophen) 1 Each Tablet 1 Tab PO PRN Q6HRS PRN Ondansetron Odt (Ondansetron) 4 Mg Tab.rapdis 1 Tab PO PRN Q6-8HRS PRN Reported Protonix (Pantoprazole Sodium) 20 Mg Tablet.dr 2 Tab PO DAILY Flonase Allergy Relief (Fluticasone Propionate) 9.9 Ml [place].susp 2 Sprays NS DAILY Procrit (Epoetin David) 10,000 Unit/1 Ml Vial 10,000 Unit IJ QSU Tums (Calcium Carbonate) 200 Mg Tab.chew 200 Mg PO BID PRN Proair Respiclick (Albuterol Sulfate) 90 Mcg Aer.pow.ba 1-2 Puff IH PRN Q6HRS PRN Senna (Sennosides) 8.6 Mg Tablet 8.6 Mg PO BID Miralax (Polyethylene Glycol 3350) 17 Gm Powd.pack 1 Packet PO DAILY Colace (Docusate Sodium) 100 Mg Capsule 1 Cap PO BID Carvedilol 25 Mg Tablet 25 Mg PO BIDWMEALS Renvela (Sevelamer Carbonate) 800 Mg Tablet 5 Tab PO TIDWMEALS Furosemide 80 Mg Tablet 1 Tab PO BID Vitamin D (Cholecalciferol (Vitamin D3)) 5,000 Unit Tablet 5,000 Unit PO DAILY Calcitriol 0.25 Mcg Capsule 2 Cap PO DAILY Clonidine Hcl 0.2 Mg Tablet 1 Tab PO BID Erik-Celia Rx Tablet (Vit B Cmplx 3/Fa/Vit C/Biotin) 1 Each Tablet 1 Each PO DAILY Sensipar (Cinacalcet Hcl) 60 Mg Tablet 60 Mg PO DAILY Amlodipine Besylate 10 Mg Tablet 10 Mg PO DAILY Simvastatin 20 Mg Tablet 20 Mg PO HS Lisinopril 40 Mg Tablet 1 Tab PO BID Novolog (Insulin Aspart) 100 Unit/1 Ml Vial 100 Unit SQ sliding scale Lantus Solostar (Insulin Glargine,Hum.rec.anlog) 100 Unit/1 Ml Insuln.pen 16 Un it SQ HS Vitals/I & O Vital Sign - Last 24 Hours 02/08/19 02/08/19 02/08/19 02/08/19 17:18 17:51 19:00 20:30 Temp 98.6 98.6 Pulse 88 76 Resp 19 B/P (MAP) 124/76 119/73 (88) Pulse Ox 91 O2 Delivery Nasal Cannula Nasal Cannula Room Air O2 Flow Rate 2.0 2.0 02/08/19 02/08/19 02/08/19 02/09/19 21:35 21:36 23:00 03:00 Temp 98.0 98.8 98.0 98.8 Pulse 76 76 75 77 Resp 19 19 B/P (MAP) 119/73 119/73 125/70 (88) 136/80 (98) Pulse Ox 92 99 O2 Delivery Nasal Cannula Nasal Cannula O2 Flow Rate 2.0 2.0 02/09/19 02/09/19 02/09/19 02/09/19 07:00 08:00 11:19 11:34 Temp 98.5 98.0 98.1 98.5 98.0 98.1 Pulse 74 75 72 Resp 18 16 16 B/P (MAP) 139/81 (100) 162/94 167/94 Pulse Ox 90 O2 Delivery BiPAP/CPAP Room Air O2 Flow Rate 2.0 02/09/19 02/09/19 02/09/19 02/09/19 12:01 14:20 14:21 14:21 Temp 98.1 98.1 Pulse 72 72 72 72 Resp 16 B/P (MAP) 168/100 168/100 168/100 168/100 02/09/19 02/09/19 14:22 15:10 Temp 98.8 98.8 Pulse 72 82 Resp 18 B/P (MAP) 168/100 161/90 (113) Pulse Ox 98 O2 Delivery Nasal Cannula O2 Flow Rate 2.0 Intake and Output 02/08/19 02/08/19 02/09/19 14:59 22:59 06:59 Intake Total 540 ml 400 ml 340 ml Output Total 70 ml 45 ml Balance 540 ml 330 ml 295 ml ALVAREZ REHMAN MD Feb 09, 2019 15:44
[2019-02-09] MEDS: oxyCODONE/APAP 5/325 1 TAB TABLET PO PRN (17:20)
[2019-02-09] MEDS: SIMVASTATIN 20 MG TABLET PO SCH (20:40)
[2019-02-09] MEDS: INSULIN GLARGINE 300 UNITS/3 ML INSULN.PEN. SQ SCH (20:47)
[2019-02-10 03:42] VITALS: BP 133/81
[2019-02-10] MEDS: HEPARIN for SUB-Q USE 5,000 UNIT/ML VIAL. SQ SCH ×3 (05:06→21:29)
[2019-02-10 06:29] LABS: BASO % 0 % (0-3); EOS # 0.6 x10^3/uL (0.0-0.7); EOS % 8 % (0-3); LYMPH # 0.8 x10^3/uL (1.0-4.8); LYMPH % 10 % (24-48); MEAN CORPUSCULAR HEMOGLOBIN 28 pg (25-35); MEAN CORPUSCULAR HGB CONC 34 g/dL (31-37); MEAN CORPUSCULAR VOLUME 85 fL (79-100); MONO # 0.6 x10^3/uL (0.0-1.1); MONO % 8 % (0-9); NEUT # 5.8 x10^3uL (1.8-7.7); NEUT % 74 % (31-73); PLATELET COUNT 248 x10^3/uL (140-400); RED BLOOD COUNT 2.42 x10^6/uL (4.30-5.70); RED CELL DISTRIBUTION WIDTH 17.6 % (11.5-14.5); WHITE BLOOD COUNT 7.8 x10^3/uL (4.0-11.0)
[2019-02-10 06:38] LABS: HEMATOCRIT 20.5 % (39.0-53.0); HEMOGLOBIN 6.9 g/dL (13.0-17.5)
[2019-02-10 07:30] VITALS: BP 152/93
[2019-02-10] MEDS: INSULIN LISPRO 300 UNITS/3 ML INSULN.PEN. SQ SCH ×7 (08:00→21:26)
[2019-02-10] MEDS: FLUTICASONE 50MCG/NASAL SPRAY 16GM BOTTLE. NS SCH (09:00)
[2019-02-10] MEDS: SEVELAMER CARBONATE 800 MG TABLET. PO SCH ×3 (09:28→18:55)
[2019-02-10] MEDS: CINACALCET HCL 30 MG TABLET PO SCH (09:30)
[2019-02-10] MEDS: CALCITRIOL 0.25 MCG CAPSULE. PO SCH (09:30)
[2019-02-10] MEDS: LISINOPRIL 20 MG TABLET PO SCH ×2 (09:31→21:14)
[2019-02-10] MEDS: PANTOPRAZOLE 40 MG TABLET.DR. PO SCH (09:32)
[2019-02-10] MEDS: CHOLECALCIFEROL (VITAMIN D3) 5,000 UNIT CAPSULE PO SCH (09:32)
[2019-02-10] MEDS: FOLIC/VIT B COMP W-C (RENAL) TABLET. PO SCH (09:32)
[2019-02-10] MEDS: cloNIDine HCL 0.2 MG TABLET PO SCH ×2 (09:33→21:14)
[2019-02-10] MEDS: amLODIPine BESYLATE 10 MG TABLET PO SCH (09:34)
[2019-02-10] MEDS: CARVEDILOL 12.5 MG TABLET. PO SCH ×2 (09:34→18:56)
[2019-02-10] MEDS: SENNOSIDES 8.6 MG TABLET PO SCH ×2 (09:35→21:14)
[2019-02-10] MEDS: FUROSEMIDE 80 MG TABLET. PO SCH ×2 (09:36→15:07)
[2019-02-10] MEDS: DOCUSATE SODIUM 100 MG CAPSULE. PO SCH ×2 (09:37→21:14)
[2019-02-10] MEDS: POLYETHYLENE GLYCOL 3350 17 GM PACKET. PO SCH ×2 (09:38)
--- NOTE | 2019-02-10 10:25 | PDOC ---
SURGICAL PROGRESS NOTE Subjective having some breakfast states he is passing "lots of gas" asking about how much longer he'll have to stay Vital Signs Vital Signs Date Time Temp Pulse Resp B/P (MAP) Pulse Ox O2 Delivery O2 Flow Rate FiO2 02/10/19 09:34 67 152/93 02/10/19 07:30 98.3 18 98 BiPAP/CPAP 98.3 02/10/19 03:42 2.0 I&O Intake and Output 02/10/19 06:59 Intake Total 392 ml Output Total 180 ml Balance 212 ml Intake Oral 390 ml Blood Product IV Normal Saline Flush 2 ml Output Drainage Total 180 ml # Voids 2 PATIENT HAS A MARSHALL: No General: Alert, No acute distress Abdomen: Soft, Other (incision clean,dry, LYNSEY with serous output) Labs Laboratory Tests Test 02/08/19 11:37 02/08/19 16:44 02/08/19 20:35 02/09/19 07:44 Glucose (Fingerstick) 251 mg/dL (70-99) 202 mg/dL (70-99) 239 mg/dL (70-99) 320 mg/dL (70-99) Test 02/09/19 08:40 02/09/19 14:02 02/09/19 16:42 02/09/19 20:38 White Blood Count 6.8 x10^3/uL (4.0-11.0) Red Blood Count 1.97 x10^6/uL (4.30-5.70) Hemoglobin 5.5 g/dL (13.0-17.5) Hematocrit 16.6 % (39.0-53.0) Mean Corpuscular Volume 84 fL (79-100) Mean Corpuscular Hemoglobin 28 pg (25-35) Mean Corpuscular Hemoglobin Concent 34 g/dL (31-37) Red Cell Distribution Width 17.9 % (11.5-14.5) Platelet Count 236 x10^3/uL (140-400) Neutrophils (%) (Auto) 74 % (31-73) Lymphocytes (%) (Auto) 10 % (24-48) Monocytes (%) (Auto) 6 % (0-9) Eosinophils (%) (Auto) 10 % (0-3) Basophils (%) (Auto) 0 % (0-3) Neutrophils # (Auto) 5.0 x10^3uL (1.8-7.7) Lymphocytes # (Auto) 0.7 x10^3/uL (1.0-4.8) Monocytes # (Auto) 0.4 x10^3/uL (0.0-1.1) Eosinophils # (Auto) 0.7 x10^3/uL (0.0-0.7) Basophils # (Auto) 0.0 x10^3/uL (0.0-0.2) Sodium Level 132 mmol/L (136-145) Potassium Level 5.4 mmol/L (3.5-5.1) Chloride Level 94 mmol/L (98-107) Carbon Dioxide Level 28 mmol/L (21-32) Anion Gap 10 (6-14) Blood Urea Nitrogen 59 mg/dL (8-26) Creatinine 14.4 mg/dL (0.7-1.3) Estimated GFR (Cockcroft-Gault) 4.7 Glucose Level 389 mg/dL (70-99) Calcium Level 8.3 mg/dL (8.5-10.1) Glucose (Fingerstick) 117 mg/dL (70-99) 183 mg/dL (70-99) 288 mg/dL (70-99) Test 02/10/19 05:35 02/10/19 07:36 White Blood Count 7.8 x10^3/uL (4.0-11.0) Red Blood Count 2.42 x10^6/uL (4.30-5.70) Hemoglobin 6.9 g/dL (13.0-17.5) Hematocrit 20.5 % (39.0-53.0) Mean Corpuscular Volume 85 fL (79-100) Mean Corpuscular Hemoglobin 28 pg (25-35) Mean Corpuscular Hemoglobin Concent 34 g/dL (31-37) Red Cell Distribution Width 17.6 % (11.5-14.5) Platelet Count 248 x10^3/uL (140-400) Neutrophils (%) (Auto) 74 % (31-73) Lymphocytes (%) (Auto) 10 % (24-48) Monocytes (%) (Auto) 8 % (0-9) Eosinophils (%) (Auto) 8 % (0-3) Basophils (%) (Auto) 0 % (0-3) Neutrophils # (Auto) 5.8 x10^3uL (1.8-7.7) Lymphocytes # (Auto) 0.8 x10^3/uL (1.0-4.8) Monocytes # (Auto) 0.6 x10^3/uL (0.0-1.1) Eosinophils # (Auto) 0.6 x10^3/uL (0.0-0.7) Basophils # (Auto) 0.0 x10^3/uL (0.0-0.2) Glucose (Fingerstick) 137 mg/dL (70-99) Laboratory Tests Test 02/09/19 14:02 02/09/19 16:42 02/09/19 20:38 02/10/19 05:35 Glucose (Fingerstick) 117 mg/dL (70-99) 183 mg/dL (70-99) 288 mg/dL (70-99) White Blood Count 7.8 x10^3/uL (4.0-11.0) Red Blood Count 2.42 x10^6/uL (4.30-5.70) Hemoglobin 6.9 g/dL (13.0-17.5) Hematocrit 20.5 % (39.0-53.0) Mean Corpuscular Volume 85 fL (79-100) Mean Corpuscular Hemoglobin 28 pg (25-35) Mean Corpuscular Hemoglobin Concent 34 g/dL (31-37) Red Cell Distribution Width 17.6 % (11.5-14.5) Platelet Count 248 x10^3/uL (140-400) Neutrophils (%) (Auto) 74 % (31-73) Lymphocytes (%) (Auto) 10 % (24-48) Monocytes (%) (Auto) 8 % (0-9) Eosinophils (%) (Auto) 8 % (0-3) Basophils (%) (Auto) 0 % (0-3) Neutrophils # (Auto) 5.8 x10^3uL (1.8-7.7) Lymphocytes # (Auto) 0.8 x10^3/uL (1.0-4.8) Monocytes # (Auto) 0.6 x10^3/uL (0.0-1.1) Eosinophils # (Auto) 0.6 x10^3/uL (0.0-0.7) Basophils # (Auto) 0.0 x10^3/uL (0.0-0.2) Test 02/10/19 07:36 Glucose (Fingerstick) 137 mg/dL (70-99) Assessment/Plan POD 5 removal PD catheter continue supportive care possible dismissal tomorrow PONCHO STRANGE MD Feb 10, 2019 10:25
[2019-02-10 11:30] VITALS: BP 132/77
[2019-02-10] MEDS: oxyCODONE/APAP 5/325 1 TAB TABLET PO PRN ×2 (12:45→19:02)
[2019-02-10 15:00] VITALS: BP 137/88
[2019-02-10] MEDS: ONDANSETRON PF 4 MG/2 ML VIAL. IV PRN (19:02)
[2019-02-10 19:05] VITALS: BP 145/88
--- NOTE | 2019-02-10 20:10 | PDOC ---
PROGRESS NOTES Chief Complaint Chief Complaint Malfunctioning PD catheter, removed by GS intra op-02/05/19 ESRD. prev PD, now HD through right subclavian since November 2018 Anemia of ESRD Hypertension Diabetes type 1 History of Present Illness History of Present Illness try to not give blood products as able renal following, patient is scheduled to get a renal transplant soon, Pain control OK OOB and ambulate as able, still wearing the abd binder, gen surg may be able to DC tomorrow HD per renal cont aranesp Vitals Vitals Vital Signs Date Time Temp Pulse Resp B/P (MAP) Pulse Ox O2 Delivery O2 Flow Rate FiO2 02/10/19 18:56 68 137/88 02/10/19 15:00 98.6 18 98 Room Air 98.6 02/10/19 03:42 2.0 Physical Exam Physical Exam (binder on, small amount of serosanguineous drainage in bulb) General: Alert, No acute distress Heart: Regular rate, Normal S1, Normal S2, No murmurs Lungs: Clear Abdomen: Soft, Other (incision clean,dry, LYNSEY with serous output) Extremities: No clubbing, No cyanosis Skin: No breakdown Labs LABS Laboratory Tests Test 02/09/19 20:38 02/10/19 05:35 02/10/19 07:36 02/10/19 10:53 Glucose (Fingerstick) 288 mg/dL (70-99) 137 mg/dL (70-99) 157 mg/dL (70-99) White Blood Count 7.8 x10^3/uL (4.0-11.0) Red Blood Count 2.42 x10^6/uL (4.30-5.70) Hemoglobin 6.9 g/dL (13.0-17.5) Hematocrit 20.5 % (39.0-53.0) Mean Corpuscular Volume 85 fL (79-100) Mean Corpuscular Hemoglobin 28 pg (25-35) Mean Corpuscular Hemoglobin Concent 34 g/dL (31-37) Red Cell Distribution Width 17.6 % (11.5-14.5) Platelet Count 248 x10^3/uL (140-400) Neutrophils (%) (Auto) 74 % (31-73) Lymphocytes (%) (Auto) 10 % (24-48) Monocytes (%) (Auto) 8 % (0-9) Eosinophils (%) (Auto) 8 % (0-3) Basophils (%) (Auto) 0 % (0-3) Neutrophils # (Auto) 5.8 x10^3uL (1.8-7.7) Lymphocytes # (Auto) 0.8 x10^3/uL (1.0-4.8) Monocytes # (Auto) 0.6 x10^3/uL (0.0-1.1) Eosinophils # (Auto) 0.6 x10^3/uL (0.0-0.7) Basophils # (Auto) 0.0 x10^3/uL (0.0-0.2) Test 02/10/19 16:57 Glucose (Fingerstick) 200 mg/dL (70-99) Comment Review of Relevant I have reviewed the following items javy (where applicable) has been applied. Labs Laboratory Tests Test 02/08/19 20:35 02/09/19 07:44 02/09/19 08:40 02/09/19 14:02 Glucose (Fingerstick) 239 mg/dL (70-99) 320 mg/dL (70-99) 117 mg/dL (70-99) White Blood Count 6.8 x10^3/uL (4.0-11.0) Red Blood Count 1.97 x10^6/uL (4.30-5.70) Hemoglobin 5.5 g/dL (13.0-17.5) Hematocrit 16.6 % (39.0-53.0) Mean Corpuscular Volume 84 fL (79-100) Mean Corpuscular Hemoglobin 28 pg (25-35) Mean Corpuscular Hemoglobin Concent 34 g/dL (31-37) Red Cell Distribution Width 17.9 % (11.5-14.5) Platelet Count 236 x10^3/uL (140-400) Neutrophils (%) (Auto) 74 % (31-73) Lymphocytes (%) (Auto) 10 % (24-48) Monocytes (%) (Auto) 6 % (0-9) Eosinophils (%) (Auto) 10 % (0-3) Basophils (%) (Auto) 0 % (0-3) Neutrophils # (Auto) 5.0 x10^3uL (1.8-7.7) Lymphocytes # (Auto) 0.7 x10^3/uL (1.0-4.8) Monocytes # (Auto) 0.4 x10^3/uL (0.0-1.1) Eosinophils # (Auto) 0.7 x10^3/uL (0.0-0.7) Basophils # (Auto) 0.0 x10^3/uL (0.0-0.2) Sodium Level 132 mmol/L (136-145) Potassium Level 5.4 mmol/L (3.5-5.1) Chloride Level 94 mmol/L (98-107) Carbon Dioxide Level 28 mmol/L (21-32) Anion Gap 10 (6-14) Blood Urea Nitrogen 59 mg/dL (8-26) Creatinine 14.4 mg/dL (0.7-1.3) Estimated GFR (Cockcroft-Gault) 4.7 Glucose Level 389 mg/dL (70-99) Calcium Level 8.3 mg/dL (8.5-10.1) Test 02/09/19 16:42 02/09/19 20:38 02/10/19 05:35 02/10/19 07:36 Glucose (Fingerstick) 183 mg/dL (70-99) 288 mg/dL (70-99) 137 mg/dL (70-99) White Blood Count 7.8 x10^3/uL (4.0-11.0) Red Blood Count 2.42 x10^6/uL (4.30-5.70) Hemoglobin 6.9 g/dL (13.0-17.5) Hematocrit 20.5 % (39.0-53.0) Mean Corpuscular Volume 85 fL (79-100) Mean Corpuscular Hemoglobin 28 pg (25-35) Mean Corpuscular Hemoglobin Concent 34 g/dL (31-37) Red Cell Distribution Width 17.6 % (11.5-14.5) Platelet Count 248 x10^3/uL (140-400) Neutrophils (%) (Auto) 74 % (31-73) Lymphocytes (%) (Auto) 10 % (24-48) Monocytes (%) (Auto) 8 % (0-9) Eosinophils (%) (Auto) 8 % (0-3) Basophils (%) (Auto) 0 % (0-3) Neutrophils # (Auto) 5.8 x10^3uL (1.8-7.7) Lymphocytes # (Auto) 0.8 x10^3/uL (1.0-4.8) Monocytes # (Auto) 0.6 x10^3/uL (0.0-1.1) Eosinophils # (Auto) 0.6 x10^3/uL (0.0-0.7) Basophils # (Auto) 0.0 x10^3/uL (0.0-0.2) Test 02/10/19 10:53 02/10/19 16:57 Glucose (Fingerstick) 157 mg/dL (70-99) 200 mg/dL (70-99) Laboratory Tests Test 02/09/19 20:38 02/10/19 05:35 02/10/19 07:36 02/10/19 10:53 Glucose (Fingerstick) 288 mg/dL (70-99) 137 mg/dL (70-99) 157 mg/dL (70-99) White Blood Count 7.8 x10^3/uL (4.0-11.0) Red Blood Count 2.42 x10^6/uL (4.30-5.70) Hemoglobin 6.9 g/dL (13.0-17.5) Hematocrit 20.5 % (39.0-53.0) Mean Corpuscular Volume 85 fL (79-100) Mean Corpuscular Hemoglobin 28 pg (25-35) Mean Corpuscular Hemoglobin Concent 34 g/dL (31-37) Red Cell Distribution Width 17.6 % (11.5-14.5) Platelet Count 248 x10^3/uL (140-400) Neutrophils (%) (Auto) 74 % (31-73) Lymphocytes (%) (Auto) 10 % (24-48) Monocytes (%) (Auto) 8 % (0-9) Eosinophils (%) (Auto) 8 % (0-3) Basophils (%) (Auto) 0 % (0-3) Neutrophils # (Auto) 5.8 x10^3uL (1.8-7.7) Lymphocytes # (Auto) 0.8 x10^3/uL (1.0-4.8) Monocytes # (Auto) 0.6 x10^3/uL (0.0-1.1) Eosinophils # (Auto) 0.6 x10^3/uL (0.0-0.7) Basophils # (Auto) 0.0 x10^3/uL (0.0-0.2) Test 02/10/19 16:57 Glucose (Fingerstick) 200 mg/dL (70-99) Medications Current Medications Heparin Sodium (Porcine) 5000 unit/Sodium Chloride 505 ml @ 505 mls/hr 1X ONCE IRR Last administered on 02/05/19at 07:52; Start 02/05/19 at 06:00; Stop 02/05/19 at 06:59; Status DC Ondansetron HCl (Zofran) 4 mg PRN Q6HRS PRN IV NAUSEA/VOMITING; Start 02/05/19 at 07:00; Stop 02/05/19 at 20:00; Status DC Fentanyl Citrate (Fentanyl 2ml Vial) 25 mcg PRN Q5MIN PRN IV MILD PAIN; Start 02/05/19 at 07:00; Stop 02/05/19 at 20:00; Status DC Fentanyl Citrate (Fentanyl 2ml Vial) 50 mcg PRN Q5MIN PRN IV MODERATE TO SEVERE PAIN Last administered on 02/05/19at 11:58; Start 02/05/19 at 07:00; Stop 02/05/19 at 20:00; Status DC Morphine Sulfate (Morphine Sulfate) 1 mg PRN Q10MIN PRN IV SEVERE PAIN; Start 02/05/19 at 07:00; Stop 02/05/19 at 20:00; Status DC Ringer's Solution 1,000 ml @ 30 mls/hr Q24H IV ; Start 02/05/19 at 07:00; Stop 02/05/19 at 18:59; Status Cancel Lidocaine HCl (Xylocaine-Mpf 1% 2ml Vial) 2 ml PRN 1X PRN ID PRIOR TO IV START; Start 02/05/19 at 07:00; Stop 02/05/19 at 20:00; Status DC Hydromorphone HCl (Dilaudid) 0.5 mg PRN Q10MIN PRN IV SEV PAIN, Second choice; Start 02/05/19 at 07:00; Stop 02/05/19 at 20:00; Status DC Prochlorperazine Edisylate (Compazine) 5 mg PACU PRN PRN IV NAUSEA, MRX1; Start 02/05/19 at 07:00; Stop 02/05/19 at 20:00; Status DC Levofloxacin/ Dextrose 100 ml @ 100 mls/hr 1X PREOP PRN IV PRIOR TO PROCEDURE Last administered on 02/05/19at 07:35; Start 02/05/19 at 06:00; Stop 02/05/19 at 18:00; Status DC Propofol 20 ml @ As Directed STK-MED ONCE IV ; Start 02/05/19 at 07:21; Stop 02/05/19 at 07:22; Status DC Lidocaine HCl (Lidocaine Pf 2% Vial) 5 ml STK-MED ONCE .ROUTE ; Start 02/05/19 a t 07:21; Stop 02/05/19 at 07:22; Status DC Ondansetron HCl (Zofran) 4 mg STK-MED ONCE .ROUTE ; Start 02/05/19 at 07:21; Stop 02/05/19 at 07:22; Status DC Dexamethasone Sodium Phosphate (Decadron) 4 mg STK-MED ONCE .ROUTE ; Start 02/05/19 at 07:21; Stop 02/05/19 at 07:22; Status DC Sevoflurane (Ultane) 30 ml STK-MED ONCE IH ; Start 02/05/19 at 07:21; Stop 02/05/19 at 07:22; Status DC Rocuronium [place] (Zemuron) 50 mg STK-MED ONCE .ROUTE ; Start 02/05/19 at 07:21; Stop 02/05/19 at 07:22; Status DC Neostigmine Methylsulfate (Neostigmine Methylsulfate) 5 mg STK-MED ONCE .ROUTE ; Start 02/05/19 at 07:21; Stop 02/05/19 at 07:22; Status DC Glycopyrrolate (Robinul) 1 mg STK-MED ONCE .ROUTE ; Start 02/05/19 at 07:21; Stop 02/05/19 at 07:22; Status DC Bupivacaine HCl/ Epinephrine Bitart (Sensorcain-Mpf Epi 0.5%-1:123907) 30 ml STK-MED ONCE .ROUTE Last administered on 02/05/19at 07:51; Start 02/05/19 at 06:30; Stop 02/05/19 at 07:30; Status DC Sodium Chloride 1,000 ml @ 75 mls/hr [id number] IV Last administered on 02/05/19 07:39; Start 02/05/19 at 07:45; Stop 02/06/19 at 03:36; Status DC Insulin Human Lispro (HumaLOG VIAL) 4 unit 1X ONCE SQ Last administered on 02/05/19 07:59; Start 02/05/19 at 08:00; Stop 02/05/19 at 08:01; Status DC Diphenhydramine HCl (Benadryl) 25 mg PRN Q6HRS PRN PO ITCHING Last administered on 02/06/19 03:38; Start 02/05/19 at 10:30 Heparin Sodium (Porcine) (Heparin Sodium) 5,000 unit Q8HRS SQ Last administered on 02/08/19 05:46; Start 02/05/19 at 22:00 Sodium Chloride (Normal Saline Flush) 3 ml QSHIFT PRN IV AFTER MEDS AND BLOOD DRAWS; Start 02/05/19 at 10:30 Sodium Chloride 1,000 ml @ 50 mls/hr Q20H IV Last administered on 02/05/19at 20:52; Start 02/05/19 at 10:30; Stop 02/06/19 at 14:04; Status DC Oxycodone/ Acetaminophen (Percocet 5/325) 1 tab PRN Q4HRS PRN PO MILD PAIN, 1ST CHOICE Last administered on 02/10/19 12:45; Start 02/05/19 at 10:30 Oxycodone/ Acetaminophen (Percocet 5/325) 2 tab PRN Q4HRS PRN PO MODERATE PAIN, SEVERE PAIN Last administered on 02/10/19 19:02; Start 02/05/19 at 10:30 Hydromorphone HCl (Dilaudid) 1 mg PRN Q3HRS PRN IV PAIN Last administered on 02/07/19 21:03; Start 02/05/19 at 10:30 Docusate Sodium (Colace) 100 mg BID PO ; Start 02/05/19 at 21:00; Status UNV Ondansetron HCl (Zofran) 4 mg PRN Q6HRS PRN IV NAUESA, 1ST CHOICE Last administered on 02/10/19 19:02; Start 02/05/19 at 10:30 Amlodipine Besylate (Norvasc) 10 mg DAILY PO Last administered on 02/10/19 09:34; Start 02/05/19 at 12:00 Calcium Carbonate/ Glycine (Tums) 250 mg PRN BID PRN PO INDIGESTION; Start 02/05/19 at 10:45 Clonidine HCl (Catapres) 0.2 mg BID PO Last administered on 02/10/19 09:33; Start 02/05/19 at 12:00 Docusate Sodium (Colace) 100 mg BID PO Last administered on 02/10/19 09:37; Start 02/05/19 at 21:00 Furosemide (Lasix) 80 mg BID92 PO Last administered on 02/10/19 15:07; Start 02/05/19 at 14:00 Insulin Glargine (Lantus) 16 units HS SQ Last administered on 02/09/19 20:47; Start 02/05/19 at 21:00 Lisinopril (Prinivil) 40 mg BID PO Last administered on 02/10/19 09:31; Start 02/05/19 at 21:00 Sevelamer Carbonate (Renvela) 4,000 mg TIDWMEALS PO Last administered on 02/10/19 18:55; Start 02/05/19 at 12:00 Non-Formulary Medication (Albuterol Sulfate (Proair Respiclick)) one to two puffs q6hrs ... PRN Q6HRS PRN IH SHORTNESS OF BREATH; Start 02/05/19 at 10:45; Status UNV Calcitriol (Rocaltrol) 0.5 mcg DAILY PO Last administered on 02/10/19 09:30; Start 02/05/19 at 13:00 Carvedilol (Coreg) 25 mg BIDWMEALS PO Last administered on 02/10/19 18:56; Start 02/05/19 at 17:00 Vitamin D (Vitamin D3) 5,000 unit DAILY PO Last administered on 02/10/19 09:32; Start 02/05/19 at 13:00 Cinacalcet (Sensipar) 60 mg DAILY PO Last administered on 02/10/19 09:30; Start 02/05/19 at 13:00 Darbepoetin David (Aranesp) 25 mcg Th SQ ; Start 02/12/19 at 21:00; Stop 02/12/19 at 21:00; Status DC Fluticasone Propionate (Flonase) 2 spray DAILY NS Last administered on 02/07 09:06; Start 02/06/19 at 09:00 Pantoprazole Sodium (Protonix) 40 mg DAILYAC PO Last administered on 02/10/19 09:32; Start 02/05/19 at 16:30 Polyethylene Glycol (miraLAX PACKET) 17 gm DAILY PO Last administered on 02/10/19 09:38; Start 02/05/19 at 13:00 Sennosides (Senna) 8.6 mg BID PO Last administered on 02/10/19 09:35; Start 02/05/19 at 11:45 Simvastatin (Zocor) 20 mg HS PO Last administered on 02/09/19 20:40; Start 02/05/19 at 21:00 Vitamin B Complex/ Vitamin C (Johanna-Celia) 1 tab DAILY PO Last administered on 02/10/19 09:32; Start 02/05/19 at 13:00 Fentanyl Citrate (Fentanyl 2ml Vial) 100 mcg STK-MED ONCE .ROUTE ; Start 02/05/19 at 11:11; Stop 02/05/19 at 11:12; Status DC Albuterol Sulfate (Ventolin Neb Soln) 2.5 mg PRN Q6HRS PRN NEB SHORTNESS OF BREATH; Start 02/05/19 at 11:45 Fentanyl Citrate (Fentanyl 2ml Vial) 100 mcg STK-MED ONCE .ROUTE ; Start 02/05/19 at 11:56; Stop 02/05/19 at 11:57; Status DC Darbepoetin David (Aranesp) 100 mcg 1X ONCE SQ Last administered on 02/05/19at 14:48; Start 02/05/19 at 13:00; Stop 02/05/19 at 13:12; Status DC Acetaminophen (Tylenol) 500 mg PRN Q6HRS PRN PO MILD PAIN / TEMP; Start 02/05/19 at 13:30 Zolpidem Tartrate (Ambien) 5 mg PRN QHS PRN PO INSOMNIA; Start 02/05/19 at 13:30 Insulin Human Lispro (HumaLOG) 0-9 UNITS TIDWMEALS SQ ; Start 02/05/19 at 17:00; Stop 02/06/19 at 03:37; Status DC Dextrose (Dextrose 50%-Water Syringe) 12.5 gm PRN Q15MIN PRN IV SEE COMMENTS; Start 02/05/19 at 13:45; Stop 02/06/19 at 03:36; Status DC Insulin Human Lispro (HumaLOG) 4 units 1X ONCE SQ Last administered on 02/05/19at 20:59; Start 02/05/19 at 21:00; Stop 02/05/19 at 21:01; Status DC Insulin Human Lispro (HumaLOG) 12 units 1X ONCE SQ Last administered on 02/06/19at 03:42; Start 02/06/19 at 04:00; Stop 02/06/19 at 04:01; Status DC Insulin Human Lispro (HumaLOG) 0-9 UNITS TIDWMEALS SQ Last administered on 02/09/19at 17:24; Start 02/06/19 at 08:00 Dextrose (Dextrose 50%-Water Syringe) 12.5 gm PRN Q15MIN PRN IV SEE COMMENTS; Start 02/06/19 at 03:30 Calcium Gluconate (Calcium Gluconate) 1,000 mg 1X ONCE IVP ; Start 02/06/19 at 07:15; Stop 02/06/19 at 07:16; Status DC Sodium Chloride 1,000 ml @ 1,000 mls/hr Q1H PRN IV hypotension; Start 02/06/19 at 07:34; Stop 02/06/19 at 13:33; Status DC Albumin Human 200 ml @ 200 mls/hr 1X PRN PRN IV Hypotension; Start 02/06/19 at 07:45; Stop 02/06/19 at 13:44; Status DC Sodium Chloride (Normal Saline Flush) 10 ml 1X PRN PRN IV AP catheter pack; Start 02/06/19 at 07:45; Stop 02/07/19 at 07:44; Status DC Sodium Chloride (Normal Saline Flush) 10 ml 1X PRN PRN IV PRICING SUPERVISOR catheter pack; Start 02/06/19 at 07:45; Stop 02/07/19 at 07:44; Status DC Sodium Chloride 1,000 ml @ 400 mls/hr Q2H30M PRN IV PATENCY; Start 02/06/19 at 07:34; Stop 02/06/19 at 19:33; Status DC Info (PHARMACY MONITORING -- do not chart) 1 each PRN DAILY PRN MC SEE COMMENTS; Start 02/06/19 at 07:45; Status UNV Info (PHARMACY MONITORING -- do not chart) 1 each PRN DAILY PRN MC SEE COMMENTS; Start 02/06/19 at 07:45 Darbepoetin David (Aranesp) 100 mcg Th SQ ; Start 02/12/19 at 21:00 Insulin Human Lispro (HumaLOG) 10 units 1X ONCE SQ ; Start 02/07/19 at 22:00; Stop 02/07/19 at 22:01; Status DC Insulin Human Lispro (HumaLOG) 3 units TIDWMEALS SQ Last administered on 02/10/19at 19:07; Start 02/09/19 at 08:30 Sodium Chloride 1,000 ml @ 1,000 mls/hr Q1H PRN IV hypotension; Start 02/09/19 at 09:14; Stop 02/09/19 at 15:13; Status DC Sodium Chloride 1,000 ml @ 400 mls/hr Q2H30M PRN IV PATENCY; Start 02/09/19 at 09:14; Stop 02/09/19 at 21:13; Status DC Info (PHARMACY MONITORING -- do not chart) 1 each PRN DAILY PRN MC SEE COMMENTS; Start 02/09/19 at 09:15 Info (PHARMACY MONITORING -- do not chart) 1 each PRN DAILY PRN MC SEE COMMENTS; Start 02/09/19 at 09:15; Status UNV Polyethylene Glycol (miraLAX PACKET) 17 gm DAILY PO Last administered on 02/10/19at 09:38; Start 02/10/19 at 09:00 Active Scripts Active Percocet 5-325 Mg Tablet (Oxycodone/Acetaminophen) 1 Each Tablet 1 Tab PO PRN Q6HRS PRN Ondansetron Odt (Ondansetron) 4 Mg Tab.rapdis 1 Tab PO PRN Q6-8HRS PRN Reported Protonix (Pantoprazole Sodium) 20 Mg Tablet.dr 2 Tab PO DAILY Flonase Allergy Relief (Fluticasone Propionate) 9.9 Ml [place].susp 2 Sprays NS DAILY Procrit (Epoetin David) 10,000 Unit/1 Ml Vial 10,000 Unit IJ QSU Tums (Calcium Carbonate) 200 Mg Tab.chew 200 Mg PO BID PRN Proair Respiclick (Albuterol Sulfate) 90 Mcg Aer.pow.ba 1-2 Puff IH PRN Q6HRS PRN Senna (Sennosides) 8.6 Mg Tablet 8.6 Mg PO BID Miralax (Polyethylene Glycol 3350) 17 Gm Powd.pack 1 Packet PO DAILY Colace (Docusate Sodium) 100 Mg Capsule 1 Cap PO BID Carvedilol 25 Mg Tablet 25 Mg PO BIDWMEALS Renvela (Sevelamer Carbonate) 800 Mg Tablet 5 Tab PO TIDWMEALS Furosemide 80 Mg Tablet 1 Tab PO BID Vitamin D (Cholecalciferol (Vitamin D3)) 5,000 Unit Tablet 5,000 Unit PO DAILY Calcitriol 0.25 Mcg Capsule 2 Cap PO DAILY Clonidine Hcl 0.2 Mg Tablet 1 Tab PO BID Johanna-Celia Rx Tablet (Vit B Cmplx 3/Fa/Vit C/Biotin) 1 Each Tablet 1 Each PO DAILY Sensipar (Cinacalcet Hcl) 60 Mg Tablet 60 Mg PO DAILY Amlodipine Besylate 10 Mg Tablet 10 Mg PO DAILY Simvastatin 20 Mg Tablet 20 Mg PO HS Lisinopril 40 Mg Tablet 1 Tab PO BID Novolog (Insulin Aspart) 100 Unit/1 Ml Vial 100 Unit SQ sliding scale Lantus Solostar (Insulin Glargine,Hum.rec.anlog) 100 Unit/1 Ml Insuln.pen 16 Unit SQ HS Vitals/I & O Vital Sign - Last 24 Hours 02/09/19 02/09/19 02/09/19 02/10/19 20:39 20:40 23:48 03:42 Temp 99.4 98.7 99.4 98.7 Pulse 82 82 74 72 Resp 20 20 B/P (MAP) 144/84 144/84 146/90 (108) 133/81 (98) Pulse Ox 100 100 O2 Delivery Nasal Cannula Nasal Cannula O2 Flow Rate 2.0 2.0 02/10/19 02/10/19 02/10/19 02/10/19 07:30 08:00 09:31 09:33 Temp 98.3 98.3 Pulse 67 67 67 Resp 18 B/P (MAP) 152/93 (112) 152/93 152/93 Pulse Ox 98 O2 Delivery BiPAP/CPAP Room Air 02/10/19 02/10/19 02/10/19 02/10/19 09:34 09:34 11:30 15:00 Temp 98.3 98.6 98.3 98.6 Pulse 67 67 75 68 Resp 18 18 B/P (MAP) 152/93 152/93 132/77 (95) 137/88 (104) Pulse Ox 98 98 O2 Delivery Room Air Room Air 02/10/19 18:56 Pulse 68 B/P (MAP) 137/88 Intake and Output 02/09/19 02/09/19 02/10/19 15:00 23:00 07:00 Intake Total 2 ml 100 ml 290 ml Output Total 70 ml 50 ml 60 ml Balance -68 ml 50 ml 230 ml ALVAREZ REHMAN MD Feb 10, 2019 20:10
--- NOTE | 2019-02-10 20:59 | PDOC ---
SUBJECTIVE ROS Stable OBJECTIVE Vital Signs Vital Signs Date Time Temp Pulse Resp B/P (MAP) Pulse Ox O2 Delivery O2 Flow Rate FiO2 02/10/19 18:56 68 137/88 02/10/19 15:00 98.6 18 98 Room Air 98.6 02/10/19 03:42 2.0 I & 0 Intake and Output 02/10/19 07:00 Intake Total 392 ml Output Total 180 ml Balance 212 ml Intake Oral 390 ml Blood Product IV Normal Saline Flush 2 ml Output Drainage Total 180 ml # Voids 2 PHYSICAL EXAM Physical Exam General: No acute distress HEENT: PERRLA, Mucous membr. moist/pink Lungs: Clear to auscultation, Normal air movement Heart: Regular rate, Normal S1, Normal S2, No murmurs Abdomen: Normal bowel sounds, Soft, Extremities: No clubbing, No cyanosis, No edema, Normal pulses, No tenderness/swelling Skin: No rashes, No breakdown Neuro: Normal gait, Normal speech, Normal tone, Sensation intact, Reflexes 2+ Psych/Mental Status: Mental status NL, Mood NL DIAGNOSIS/ASSESSMENT Assessment & Plan ESRD- has been on Pd PD cath removed due to malfunction on HD MWF now ,Has Tunnelled DC , will have AV access placed once Hgb improves - can be done as OP No indication for HD today Malfunctioning PD cathter due to diffuse adhesions Removed Severe Anemia - s/p 1 unit of PrBC on 02/09 Continue Aranesp DM II- as per primary HTN COMMENT/RELEVANT DATA Meds Current Medications Medications (Trade) Dose Ordered Sig/Afua Start Time Stop Time Status Last Admin Dose Admin Acetaminophen (Tylenol) 500 mg PRN Q6HRS PRN 02/05/19 13:30 Albumin Human 200 ml @ 200 mls/hr 1X PRN PRN 02/06/19 07:45 02/06/19 13:44 DC Albuterol Sulfate (Ventolin Neb Soln) 2.5 mg PRN Q6HRS PRN 02/05/19 11:45 Amlodipine Besylate (Norvasc) 10 mg DAILY 02/05/19 12:00 02/10/19 09:34 10 MG Bupivacaine HCl/ Epinephrine Bitart (Sensorcain-Mpf Epi 0.5%-1:714120) 30 ml STK-MED ONCE 02/05/19 06:30 02/05/19 07:30 DC 02/05/19 07:51 10 ML Calcitriol (Rocaltrol) 0.5 mcg DAILY 02/05/19 13:00 02/10/19 09:30 0.5 MCG Calcium Carbonate/ Glycine (Tums) 250 mg PRN BID PRN 02/05/19 10:45 Calcium Gluconate (Calcium Gluconate) 1,000 mg 1X ONCE 02/06/19 07:15 02/06/19 07:16 DC Carvedilol (Coreg) 25 mg BIDWMEALS 02/05/19 17:00 02/10/19 18:56 25 MG Cinacalcet (Sensipar) 60 mg DAILY 02/05/19 13:00 02/10/19 09:30 60 MG Clonidine HCl (Catapres) 0.2 mg BID 02/05/19 12:00 02/10/19 09:33 0.2 MG Darbepoetin David (Aranesp) 100 mcg Th 02/12/19 21:00 Dexamethasone Sodium Phosphate (Decadron) 4 mg STK-MED ONCE 02/05/19 07:21 02/05/19 07:22 DC Dextrose (Dextrose 50%-Water Syringe) 12.5 gm PRN Q15MIN PRN 02/06/19 03:30 Diphenhydramine HCl (Benadryl) 25 mg PRN Q6HRS PRN 02/05/19 10:30 02/06/19 03:38 25 MG Docusate Sodium (Colace) 100 mg BID 02/05/19 21:00 02/10/19 09:37 100 MG Fentanyl Citrate (Fentanyl 2ml Vial) 100 mcg STK-MED ONCE 02/05/19 11:56 02/05/19 11:57 DC Fluticasone Propionate (Flonase) 2 spray DAILY 02/06/19 09:00 02/07/19 09:06 2 SPRAY Furosemide (Lasix) 80 mg [id number] 02/05/19 14:00 02/10/19 15:07 80 MG Glycopyrrolate (Robinul) 1 mg STK-MED ONCE 02/05/19 07:21 02/05/19 07:22 DC Heparin Sodium (Porcine) (Heparin Sodium) 5,000 unit Q8HRS 02/05/19 22:00 02/08/19 05:46 5,000 UNIT Heparin Sodium (Porcine) 5000 unit/Sodium Chloride 505 ml @ 505 mls/hr 1X ONCE 02/05/19 06:00 02/05/19 06:59 DC 02/05/19 07:52 Hydromorphone HCl (Dilaudid) 1 mg PRN Q3HRS PRN 02/05/19 10:30 02/07/19 21:03 1 MG Info (PHARMACY MONITORING -- do not chart) 1 each PRN DAILY PRN 02/09/19 09:15 UNV Insulin Glargine (Lantus) 16 units HS 02/05/19 21:00 02/09/19 20:47 16 UNITS Insulin Human Lispro (HumaLOG VIAL) 4 unit 1X ONCE 02/05/19 08:00 02/05/19 08:01 DC 02/05/19 07:59 4 UNIT Insulin Human Lispro (HumaLOG) 3 units TIDWMEALS 02/09/19 08:30 02/10/19 19:07 3 UNITS Levofloxacin/ Dextrose 100 ml @ 100 mls/hr 1X PREOP PRN 02/05/19 06:00 02/05/19 18:00 DC 02/05/19 07:35 100 MLS/HR Lidocaine HCl (Lidocaine Pf 2% Vial) 5 ml STK-MED ONCE 02/05/19 07:21 02/05/19 07:22 DC Lidocaine HCl (Xylocaine-Mpf 1% 2ml Vial) 2 ml PRN 1X PRN 02/05/19 07:00 02/05/19 20:00 DC Lisinopril (Prinivil) 40 mg BID 02/05/19 21:00 02/10/19 09:31 40 MG Morphine Sulfate (Morphine Sulfate) 1 mg PRN Q10MIN PRN 02/05/19 07:00 02/05/19 20:00 DC Neostigmine Methylsulfate (Neostigmine Methylsulfate) 5 mg STK-MED ONCE 02/05/19 07:21 02/05/19 07:22 DC Non-Formulary Medication (Albuterol Sulfate (Proair Respiclick)) one to two puffs q6hrs ... PRN Q6HRS PRN 02/05/19 10:45 UNV Ondansetron HCl (Zofran) 4 mg PRN Q6HRS PRN 02/05/19 10:30 02/10/19 19:02 4 MG Oxycodone/ Acetaminophen (Percocet 5/325) 2 tab PRN Q4HRS PRN 02/05/19 10:30 02/10/19 19:02 2 TAB Pantoprazole Sodium (Protonix) 40 mg DAILYAC 02/05/19 16:30 02/10/19 09:32 40 MG Polyethylene Glycol (miraLAX PACKET) 17 gm DAILY 02/10/19 09:00 02/10/19 09:38 17 GM Prochlorperazine Edisylate (Compazine) 5 mg PACU PRN PRN 02/05/19 07:00 02/05/19 20:00 DC Propofol 20 ml @ As Directed STK-MED ONCE 02/05/19 07:21 02/05/19 07:22 DC Ringer's Solution 1,000 ml @ 30 mls/hr Q24H 02/05/19 07:00 02/05/19 18:59 Cancel Rocuronium Arthur (Zemuron) 50 mg STK-MED ONCE 02/05/19 07:21 02/05/19 07:22 DC Sennosides (Senna) 8.6 mg BID 02/05/19 11:45 02/10/19 09:35 8.6 MG Sevelamer Carbonate (Renvela) 4,000 mg TIDWMEALS 02/05/19 12:00 02/10/19 18:55 4,000 MG Sevoflurane (Ultane) 30 ml STK-MED ONCE 02/05/19 07:21 02/05/19 07:22 DC Simvastatin (Zocor) 20 mg HS 02/05/19 21:00 02/09/19 20:40 20 MG Sodium Chloride 1,000 ml @ 400 mls/hr Q2H30M PRN 02/09/19 09:14 02/09/19 21:13 DC Sodium Chloride (Normal Saline Flush) 10 ml 1X PRN PRN 02/06/19 07:45 02/07/19 07:44 DC Vitamin B Complex/ Vitamin C (Johanna-Celia) 1 tab DAILY 02/05/19 13:00 02/10/19 09:32 1 TAB Vitamin D (Vitamin D3) 5,000 unit DAILY 02/05/19 13:00 02/10/19 09:32 5,000 UNIT Zolpidem Tartrate (Ambien) 5 mg PRN QHS PRN 02/05/19 13:30 Lab Laboratory Tests Test 02/10/19 05:35 02/10/19 07:36 02/10/19 10:53 02/10/19 16:57 White Blood Count 7.8 x10^3/uL (4.0-11.0) Red Blood Count 2.42 x10^6/uL (4.30-5.70) Hemoglobin 6.9 g/dL (13.0-17.5) Hematocrit 20.5 % (39.0-53.0) Mean Corpuscular Volume 85 fL (79-100) Mean Corpuscular Hemoglobin 28 pg (25-35) Mean Corpuscular Hemoglobin Concent 34 g/dL (31-37) Red Cell Distribution Width 17.6 % (11.5-14.5) Platelet Count 248 x10^3/uL (140-400) Neutrophils (%) (Auto) 74 % (31-73) Lymphocytes (%) (Auto) 10 % (24-48) Monocytes (%) (Auto) 8 % (0-9) Eosinophils (%) (Auto) 8 % (0-3) Basophils (%) (Auto) 0 % (0-3) Neutrophils # (Auto) 5.8 x10^3uL (1.8-7.7) Lymphocytes # (Auto) 0.8 x10^3/uL (1.0-4.8) Monocytes # (Auto) 0.6 x10^3/uL (0.0-1.1) Eosinophils # (Auto) 0.6 x10^3/uL (0.0-0.7) Basophils # (Auto) 0.0 x10^3/uL (0.0-0.2) Glucose (Fingerstick) 137 mg/dL (70-99) 157 mg/dL (70-99) 200 mg/dL (70-99) Results All relevant outside records, renal labs, imaging studies, telemetry/EKG's were reviewed. AYANNA PEREZ MD Feb 10, 2019 20:59
[2019-02-10] MEDS: SIMVASTATIN 20 MG TABLET PO SCH (21:15)
[2019-02-10] MEDS: INSULIN GLARGINE 300 UNITS/3 ML INSULN.PEN. SQ SCH (21:23)
[2019-02-10 23:05] VITALS: BP 137/84
[2019-02-11] MEDS: diphenhydrAMINE HCL 25 MG CAPSULE PO PRN (00:18)
[2019-02-11 03:05] VITALS: BP 142/86
[2019-02-11] MEDS: HEPARIN for SUB-Q USE 5,000 UNIT/ML VIAL. SQ SCH ×3 (05:06→22:00)
[2019-02-11 05:38] LABS: ALBUMIN 2.7 g/dL (3.4-5.0); CALCIUM 8.7 mg/dL (8.5-10.1); CREATININE 12.2 mg/dL (0.7-1.3); GFR 5.7; PHOSPHORUS 6.6 mg/dL (2.6-4.7); POTASSIUM 4.5 mmol/L (3.5-5.1)
[2019-02-11 07:15] VITALS: BP 146/85
[2019-02-11] MEDS: SEVELAMER CARBONATE 800 MG TABLET. PO SCH ×4 (08:00→17:34)
[2019-02-11] MEDS: INSULIN LISPRO 300 UNITS/3 ML INSULN.PEN. SQ SCH ×6 (08:00→17:47)
[2019-02-11] MEDS: FLUTICASONE 50MCG/NASAL SPRAY 16GM BOTTLE. NS SCH (09:00)
[2019-02-11] MEDS: POLYETHYLENE GLYCOL 3350 17 GM PACKET. PO SCH ×2 (09:00→09:15)
[2019-02-11] MEDS: CALCITRIOL 0.25 MCG CAPSULE. PO SCH (09:00)
[2019-02-11] MEDS: CINACALCET HCL 30 MG TABLET PO SCH (09:15)
[2019-02-11] MEDS: FOLIC/VIT B COMP W-C (RENAL) TABLET. PO SCH (09:16)
[2019-02-11] MEDS: cloNIDine HCL 0.2 MG TABLET PO SCH ×2 (09:16→21:49)
[2019-02-11] MEDS: PANTOPRAZOLE 40 MG TABLET.DR. PO SCH (09:16)
[2019-02-11] MEDS: LISINOPRIL 20 MG TABLET PO SCH ×2 (09:17→21:48)
[2019-02-11] MEDS: amLODIPine BESYLATE 10 MG TABLET PO SCH (09:17)
[2019-02-11] MEDS: CHOLECALCIFEROL (VITAMIN D3) 5,000 UNIT CAPSULE PO SCH (09:18)
[2019-02-11] MEDS: SENNOSIDES 8.6 MG TABLET PO SCH ×2 (09:18→21:47)
[2019-02-11] MEDS: CARVEDILOL 12.5 MG TABLET. PO SCH ×2 (09:18→17:35)
[2019-02-11] MEDS: FUROSEMIDE 80 MG TABLET. PO SCH ×2 (09:19→12:26)
[2019-02-11] MEDS: DOCUSATE SODIUM 100 MG CAPSULE. PO SCH ×2 (09:19→21:47)
[2019-02-11 10:38] VITALS: BP 145/82
[2019-02-11] MEDS ORDERED: IV NORMAL SALINE 1000ML BAG 1,000 ML IV PRN ×2 (12:04)
[2019-02-11] MEDS ORDERED: DIALYSIS PATIENT. MC PRN ×2 (12:15)
--- NOTE | 2019-02-11 12:18 | PDOC ---
SURGICAL PROGRESS NOTE Subjective pt seen this AM reports he has had a BM Vital Signs Vital Signs Date Time Temp Pulse Resp B/P (MAP) Pulse Ox O2 Delivery O2 Flow Rate FiO2 02/11/19 10:38 97.6 83 19 145/82 (103) 94 Room Air 97.6 I&O Intake and Output 02/11/19 06:59 Intake Total 900 ml Output Total 150 ml Balance 750 ml Intake Oral 900 ml Output Drainage Total 150 ml PATIENT HAS A MARSHALL: No General: Alert, No acute distress Abdomen: Soft, Other (LYNSEY with small amount of serosanguineous output) Labs Laboratory Tests Test 02/09/19 14:02 02/09/19 16:42 02/09/19 20:38 02/10/19 05:35 Glucose (Fingerstick) 117 mg/dL (70-99) 183 mg/dL (70-99) 288 mg/dL (70-99) White Blood Count 7.8 x10^3/uL (4.0-11.0) Red Blood Count 2.42 x10^6/uL (4.30-5.70) Hemoglobin 6.9 g/dL (13.0-17.5) Hematocrit 20.5 % (39.0-53.0) Mean Corpuscular Volume 85 fL (79-100) Mean Corpuscular Hemoglobin 28 pg (25-35) Mean Corpuscular Hemoglobin Concent 34 g/dL (31-37) Red Cell Distribution Width 17.6 % (11.5-14.5) Platelet Count 248 x10^3/uL (140-400) Neutrophils (%) (Auto) 74 % (31-73) Lymphocytes (%) (Auto) 10 % (24-48) Monocytes (%) (Auto) 8 % (0-9) Eosinophils (%) (Auto) 8 % (0-3) Basophils (%) (Auto) 0 % (0-3) Neutrophils # (Auto) 5.8 x10^3uL (1.8-7.7) Lymphocytes # (Auto) 0.8 x10^3/uL (1.0-4.8) Monocytes # (Auto) 0.6 x10^3/uL (0.0-1.1) Eosinophils # (Auto) 0.6 x10^3/uL (0.0-0.7) Basophils # (Auto) 0.0 x10^3/uL (0.0-0.2) Test 02/10/19 07:36 02/10/19 10:53 02/10/19 16:57 02/10/19 21:19 Glucose (Fingerstick) 137 mg/dL (70-99) 157 mg/dL (70-99) 200 mg/dL (70-99) 254 mg/dL (70-99) Test 02/11/19 04:25 02/11/19 07:07 02/11/19 11:45 Sodium Level 139 mmol/L (136-145) Potassium Level 4.5 mmol/L (3.5-5.1) Chloride Level 99 mmol/L (98-107) Carbon Dioxide Level 31 mmol/L (21-32) Anion Gap 9 (6-14) Blood Urea Nitrogen 42 mg/dL (8-26) Creatinine 12.2 mg/dL (0.7-1.3) Estimated GFR (Cockcroft-Gault) 5.7 Glucose Level 152 mg/dL (70-99) Calcium Level 8.7 mg/dL (8.5-10.1) Phosphorus Level 6.6 mg/dL (2.6-4.7) Albumin 2.7 g/dL (3.4-5.0) Glucose (Fingerstick) 169 mg/dL (70-99) 260 mg/dL (70-99) Laboratory Tests Test 02/10/19 16:57 02/10/19 21:19 02/11/19 04:25 02/11/19 07:07 Glucose (Fingerstick) 200 mg/dL (70-99) 254 mg/dL (70-99) 169 mg/dL (70-99) Sodium Level 139 mmol/L (136-145) Potassium Level 4.5 mmol/L (3.5-5.1) Chloride Level 99 mmol/L (98-107) Carbon Dioxide Level 31 mmol/L (21-32) Anion Gap 9 (6-14) Blood Urea Nitrogen 42 mg/dL (8-26) Creatinine 12.2 mg/dL (0.7-1.3) Estimated GFR (Cockcroft-Gault) 5.7 Glucose Level 152 mg/dL (70-99) Calcium Level 8.7 mg/dL (8.5-10.1) Phosphorus Level 6.6 mg/dL (2.6-4.7) Albumin 2.7 g/dL (3.4-5.0) Test 02/11/19 11:45 Glucose (Fingerstick) 260 mg/dL (70-99) Assessment/Plan POD 6 removal PD catheter continue supportive care inpatient HD today possible home later or tomorrow Teddy Galarza and Rich to follow in my absence PONCHO STRANGE MD February 11, 2019 12:18
--- NOTE | 2019-02-11 12:47 | PDOC ---
PROGRESS NOTES Chief Complaint Chief Complaint Malfunctioning PD catheter, removed by GS intra op-02/05/19 ESRD. prev PD, now HD through right subclavian since November 2018 Anemia of ESRD Hypertension Diabetes type 1 History of Present Illness History of Present Illness Patient seen and examined. Patient resting comfortably in no acute distress. Patient is scheduled to get a renal transplant soon, Pain control OK Vitals Vitals Vital Signs Date Time Temp Pulse Resp B/P (MAP) Pulse Ox O2 Delivery O2 Flow Rate FiO2 02/11/19 10:38 97.6 83 19 145/82 (103) 94 Room Air 97.6 Physical Exam Physical Exam (binder on, small amount of serosanguineous drainage in bulb) General: Alert, No acute distress Heart: Regular rate, Normal S1, Normal S2, No murmurs Lungs: Clear Abdomen: Soft, Other (LYNSEY with small amount of serosanguineous output) Extremities: No clubbing, No cyanosis Skin: No breakdown Labs LABS Laboratory Tests Test 02/10/19 16:57 02/10/19 21:19 02/11/19 04:25 02/11/19 07:07 Glucose (Fingerstick) 200 mg/dL (70-99) 254 mg/dL (70-99) 169 mg/dL (70-99) Sodium Level 139 mmol/L (136-145) Potassium Level 4.5 mmol/L (3.5-5.1) Chloride Level 99 mmol/L (98-107) Carbon Dioxide Level 31 mmol/L (21-32) Anion Gap 9 (6-14) Blood Urea Nitrogen 42 mg/dL (8-26) Creatinine 12.2 mg/dL (0.7-1.3) Estimated GFR (Cockcroft-Gault) 5.7 Glucose Level 152 mg/dL (70-99) Calcium Level 8.7 mg/dL (8.5-10.1) Phosphorus Level 6.6 mg/dL (2.6-4.7) Albumin 2.7 g/dL (3.4-5.0) Test 02/11/19 11:45 Glucose (Fingerstick) 260 mg/dL (70-99) Review of Systems Review of Systems Patient denies new onset of easy bruising Patient is hungry Assessment and Plan Assessmemt and Plan Assessment: ESRD- associated anemia Recent tunnelled dialysis catheter placement Hypertension Diabetes type 1 Plan Wound care HD M,W,F Labs PT/OT Home meds DVT PPx BIPAP Comment Review of Relevant I have reviewed the following items javy (where applicable) has been applied. Labs Laboratory Tests Test 02/09/19 14:02 02/09/19 16:42 02/09/19 20:38 02/10/19 05:35 Glucose (Fingerstick) 117 mg/dL (70-99) 183 mg/dL (70-99) 288 mg/dL (70-99) White Blood Count 7.8 x10^3/uL (4.0-11.0) Red Blood Count 2.42 x10^6/uL (4.30-5.70) Hemoglobin 6.9 g/dL (13.0-17.5) Hematocrit 20.5 % (39.0-53.0) Mean Corpuscular Volume 85 fL (79-100) Mean Corpuscular Hemoglobin 28 pg (25-35) Mean Corpuscular Hemoglobin Concent 34 g/dL (31-37) Red Cell Distribution Width 17.6 % (11.5-14.5) Platelet Count 248 x10^3/uL (140-400) Neutrophils (%) (Auto) 74 % (31-73) Lymphocytes (%) (Auto) 10 % (24-48) Monocytes (%) (Auto) 8 % (0-9) Eosinophils (%) (Auto) 8 % (0-3) Basophils (%) (Auto) 0 % (0-3) Neutrophils # (Auto) 5.8 x10^3uL (1.8-7.7) Lymphocytes # (Auto) 0.8 x10^3/uL (1.0-4.8) Monocytes # (Auto) 0.6 x10^3/uL (0.0-1.1) Eosinophils # (Auto) 0.6 x10^3/uL (0.0-0.7) Basophils # (Auto) 0.0 x10^3/uL (0.0-0.2) Test 02/10/19 07:36 02/10/19 10:53 02/10/19 16:57 02/10/19 21:19 Glucose (Fingerstick) 137 mg/dL (70-99) 157 mg/dL (70-99) 200 mg/dL (70-99) 254 mg/dL (70-99) Test 02/11/19 04:25 02/11/19 07:07 02/11/19 11:45 Sodium Level 139 mmol/L (136-145) Potassium Level 4.5 mmol/L (3.5-5.1) Chloride Level 99 mmol/L (98-107) Carbon Dioxide Level 31 mmol/L (21-32) Anion Gap 9 (6-14) Blood Urea Nitrogen 42 mg/dL (8-26) Creatinine 12.2 mg/dL (0.7-1.3) Estimated GFR (Cockcroft-Gault) 5.7 Glucose Level 152 mg/dL (70-99) Calcium Level 8.7 mg/dL (8.5-10.1) Phosphorus Level 6.6 mg/dL (2.6-4.7) Albumin 2.7 g/dL (3.4-5.0) Glucose (Fingerstick) 169 mg/dL (70-99) 260 mg/dL (70-99) Laboratory Tests Test 02/10/19 16:57 02/10/19 21:19 02/11/19 04:25 02/11/19 07:07 Glucose (Fingerstick) 200 mg/dL (70-99) 254 mg/dL (70-99) 169 mg/dL (70-99) Sodium Level 139 mmol/L (136-145) Potassium Level 4.5 mmol/L (3.5-5.1) Chloride Level 99 mmol/L (98-107) Carbon Dioxide Level 31 mmol/L (21-32) Anion Gap 9 (6-14) Blood Urea Nitrogen 42 mg/dL (8-26) Creatinine 12.2 mg/dL (0.7-1.3) Estimated GFR (Cockcroft-Gault) 5.7 Glucose Level 152 mg/dL (70-99) Calcium Level 8.7 mg/dL (8.5-10.1) Phosphorus Level 6.6 mg/dL (2.6-4.7) Albumin 2.7 g/dL (3.4-5.0) Test 02/11/19 11:45 Glucose (Fingerstick) 260 mg/dL (70-99) Medications Current Medications Heparin Sodium (Porcine) 5000 unit/Sodium Chloride 505 ml @ 505 mls/hr 1X ONCE IRR Last administered on 02/05/19at 07:52; Start 02/05/19 at 06:00; Stop 02/05/19 at 06:59; Status DC Ondansetron HCl (Zofran) 4 mg PRN Q6HRS PRN IV NAUSEA/VOMITING; Start 02/05/19 at 07:00; Stop 02/05/19 at 20:00; Status DC Fentanyl Citrate (Fentanyl 2ml Vial) 25 mcg PRN Q5MIN PRN IV MILD PAIN; Start 02/05/19 at 07:00; Stop 02/05/19 at 20:00; Status DC Fentanyl Citrate (Fentanyl 2ml Vial) 50 mcg PRN Q5MIN PRN IV MODERATE TO SEVERE PAIN Last administered on 02/05/19at 11:58; Start 02/05/19 at 07:00; Stop 02/05/19 at 20:00; Status DC Morphine Sulfate (Morphine Sulfate) 1 mg PRN Q10MIN PRN IV SEVERE PAIN; Start 02/05/19 at 07:00; Stop 02/05/19 at 20:00; Status DC Ringer's Solution 1,000 ml @ 30 mls/hr Q24H IV ; Start 02/05/19 at 07:00; Stop 02/05/19 at 18:59; Status Cancel Lidocaine HCl (Xylocaine-Mpf 1% 2ml Vial) 2 ml PRN 1X PRN ID PRIOR TO IV START; Start 02/05/19 at 07:00; Stop 02/05/19 at 20:00; Status DC Hydromorphone HCl (Dilaudid) 0.5 mg PRN Q10MIN PRN IV SEV PAIN, Second choice; Start 02/05/19 at 07:00; Stop 02/05/19 at 20:00; Status DC Prochlorperazine Edisylate (Compazine) 5 mg PACU PRN PRN IV NAUSEA, MRX1; Start 02/05/19 at 07:00; Stop 02/05/19 at 20:00; Status DC Levofloxacin/ Dextrose 100 ml @ 100 mls/hr 1X PREOP PRN IV PRIOR TO PROCEDURE Last administered on 02/05/19at 07:35; Start 02/05/19 at 06:00; Stop 02/05/19 at 18:00; Status DC Propofol 20 ml @ As Directed STK-MED ONCE IV ; Start 02/05/19 at 07:21; Stop 02/05/19 at 07:22; Status DC Lidocaine HCl (Lidocaine Pf 2% Vial) 5 ml STK-MED ONCE .ROUTE ; Start 02/05/19 at 07:21; Stop 02/05/19 at 07:22; Status DC Ondansetron HCl (Zofran) 4 mg STK-MED ONCE .ROUTE ; Start 02/05/19 at 07:21; Stop 02/05/19 at 07:22; Status DC Dexamethasone Sodium Phosphate (Decadron) 4 mg STK-MED ONCE .ROUTE ; Start 02/05/19 at 07:21; Stop 02/05/19 at 07:22; Status DC Sevoflurane (Ultane) 30 ml STK-MED ONCE IH ; Start 02/05/19 at 07:21; Stop 02/05/19 at 07:22; Status DC Rocuronium [place] (Zemuron) 50 mg STK-MED ONCE .ROUTE ; Start 02/05/19 at 07:21; Stop 02/05/19 at 07:22; Status DC Neostigmine Methylsulfate (Neostigmine Methylsulfate) 5 mg STK-MED ONCE .ROUTE ; Start 02/05/19 at 07:21; Stop 02/05/19 at 07:22; Status DC Glycopyrrolate (Robinul) 1 mg STK-MED ONCE .ROUTE ; Start 02/05/19 at 07:21; Stop 02/05/19 at 07:22; Status DC Bupivacaine HCl/ Epinephrine Bitart (Sensorcain-Mpf Epi 0.5%-[id number]) 30 ml STK-MED ONCE .ROUTE Last administered on 02/05/19at 07:51; Start 02/05/19 at 06:30; Stop 02/05/19 at 07:30; Status DC Sodium Chloride 1,000 ml @ 75 mls/hr [id number] IV Last administered on 02/05/19at 07:39; Start 02/05/19 at 07:45; Stop 02/06/19 at 03:36; Status DC Insulin Human Lispro (HumaLOG VIAL) 4 unit 1X ONCE SQ Last administered on 02/05/19at 07:59; Start 02/05/19 at 08:00; Stop 02/05/19 at 08:01; Status DC Diphenhydramine HCl (Benadryl) 25 mg PRN Q6HRS PRN PO ITCHING Last administered on 02/11/19 00:18; Start 02/05/19 at 10:30 Heparin Sodium (Porcine) (Heparin Sodium) 5,000 unit Q8HRS SQ Last administered on 02/08/19at 05:46; Start 02/05/19 at 22:00 Sodium Chloride (Normal Saline Flush) 3 ml QSHIFT PRN IV AFTER MEDS AND BLOOD DRAWS; Start 02/05/19 at 10:30 Sodium Chloride 1,000 ml @ 50 mls/hr Q20H IV Last administered on 02/05/19at 20:52; Start 02/05/19 at 10:30; Stop 02/06/19 at 14:04; Status DC Oxycodone/ Acetaminophen (Percocet 5/325) 1 tab PRN Q4HRS PRN PO MILD PAIN, 1ST CHOICE Last administered on 02/10/19 12:45; Start 02/05/19 at 10:30 Oxycodone/ Acetaminophen (Percocet 5/325) 2 tab PRN Q4HRS PRN PO MODERATE PAIN, SEVERE PAIN Last administered on 02/10/19 19:02; Start 02/05/19 at 10:30 Hydromorphone HCl (Dilaudid) 1 mg PRN Q3HRS PRN IV PAIN Last administered on 02/07/19 21:03; Start 02/05/19 at 10:30 Docusate Sodium (Colace) 100 mg BID PO ; Start 02/05/19 at 21:00; Status UNV Ondansetron HCl (Zofran) 4 mg PRN Q6HRS PRN IV NAUESA, 1ST CHOICE Last administered on 02/10/19 19:02; Start 02/05/19 at 10:30 Amlodipine Besylate (Norvasc) 10 mg DAILY PO Last administered on 02/11/19 09:17; Start 02/05/19 at 12:00 Calcium Carbonate/ Glycine (Tums) 250 mg PRN BID PRN PO INDIGESTION; Start 02/05/19 at 10:45 Clonidine HCl (Catapres) 0.2 mg BID PO Last administered on 02/11/19 09:16; Start 02/05/19 at 12:00 Docusate Sodium (Colace) 100 mg BID PO Last administered on 02/11/19 09:19; Start 02/05/19 at 21:00 Furosemide (Lasix) 80 mg BID92 PO Last administered on 02/11/19 09:19; Start 02/05/19 at 14:00 Insulin Glargine (Lantus) 16 units HS SQ Last administered on 02/10/19 21:23; Start 02/05/19 at 21:00 Lisinopril (Prinivil) 40 mg BID PO Last administered on 02/11/19 09:17; Start 02/05/19 at 21:00 Sevelamer Carbonate (Renvela) 4,000 mg TIDWMEALS PO Last administered on 02/10/19 18:55; Start 02/05/19 at 12:00 Non-Formulary Medication (Albuterol Sulfate (Proair Respiclick)) one to two puffs q6hrs ... PRN Q6HRS PRN IH SHORTNESS OF BREATH; Start 02/05/19 at 10:45; Status UNV Calcitriol (Rocaltrol) 0.5 mcg DAILY PO Last administered on 02/10/19 09:30; Start 02/05/19 at 13:00 Carvedilol (Coreg) 25 mg BIDWMEALS PO Last administered on 02/11/19 09:18; Start 02/05/19 at 17:00 Vitamin D (Vitamin D3) 5,000 unit DAILY PO Last administered on 02/11/19 09:18; Start 02/05/19 at 13:00 Cinacalcet (Sensipar) 60 mg DAILY PO Last administered on 02/11/19 09:15; Start 02/05/19 at 13:00 Darbepoetin David (Aranesp) 25 mcg Th SQ ; Start 02/12/19 at 21:00; Stop 02/12/19 at 21:00; Status DC Fluticasone Propionate (Flonase) 2 spray DAILY NS Last administered on 02/07/19 09:06; Start 02/06/19 at 09:00 Pantoprazole Sodium (Protonix) 40 mg DAILYAC PO Last administered on 02/11/19 09:16; Start 02/05/19 at 16:30 Polyethylene Glycol (miraLAX PACKET) 17 gm DAILY PO Last administered on 02/11/19 09:15; Start 02/05/19 at 13:00 Sennosides (Senna) 8.6 mg BID PO Last administered on 02/11/19 09:18; Start 02/05/19 at 11:45 Simvastatin (Zocor) 20 mg HS PO Last administered on 02/10/19at 21:15; Start 02/05/19 at 21:00 Vitamin B Complex/ Vitamin C (Johanna-Celia) 1 tab DAILY PO Last administered on 02/11/19 09:16; Start 02/05/19 at 13:00 Fentanyl Citrate (Fentanyl 2ml Vial) 100 mcg STK-MED ONCE .ROUTE ; Start 02/05/19 at 11:11; Stop 02/05/19 at 11:12; Status DC Albuterol Sulfate (Ventolin Neb Soln) 2.5 mg PRN Q6HRS PRN NEB SHORTNESS OF BREATH; Start 02/05/19 at 11:45 Fentanyl Citrate (Fentanyl 2ml Vial) 100 mcg STK-MED ONCE .ROUTE ; Start 02/05/19 at 11:56; Stop 02/05/19 at 11:57; Status DC Darbepoetin David (Aranesp) 100 mcg 1X ONCE SQ Last administered on 02/05/19at 14:48; Start 02/05/19 at 13:00; Stop 02/05/19 at 13:12; Status DC Acetaminophen (Tylenol) 500 mg PRN Q6HRS PRN PO MILD PAIN / TEMP; Start 02/05/19 at 13:30 Zolpidem Tartrate (Ambien) 5 mg PRN QHS PRN PO INSOMNIA; Start 02/05/19 at 13:30 Insulin Human Lispro (HumaLOG) 0-9 UNITS TIDWMEALS SQ ; Start 02/05/19 at 17:00; Stop 02/06/19 at 03:37; Status DC Dextrose (Dextrose 50%-Water Syringe) 12.5 gm PRN Q15MIN PRN IV SEE COMMENTS; Start 02/05/19 at 13:45; Stop 02/06/19 at 03:36; Status DC Insulin Human Lispro (HumaLOG) 4 units 1X ONCE SQ Last administered on 02/05/19at 20:59; Start 02/05/19 at 21:00; Stop 02/05/19 at 21:01; Status DC Insulin Human Lispro (HumaLOG) 12 units 1X ONCE SQ Last administered on 02/06/19at 03:42; Start 02/06/19 at 04:00; Stop 02/06/19 at 04:01; Status DC Insulin Human Lispro (HumaLOG) 0-9 UNITS TIDWMEALS SQ Last administered on 02/10/19at 21:26; Start 02/06/19 at 08:00 Dextrose (Dextrose 50%-Water Syringe) 12.5 gm PRN Q15MIN PRN IV SEE COMMENTS; Start 02/06/19 at 03:30 Calcium Gluconate (Calcium Gluconate) 1,000 mg 1X ONCE IVP ; Start 02/06/19 at 07:15; Stop 02/06/19 at 07:16; Status DC Sodium Chloride 1,000 ml @ 1,000 mls/hr Q1H PRN IV hypotension; Start 02/06/19 at 07:34; Stop 02/06/19 at 13:33; Status DC Albumin Human 200 ml @ 200 mls/hr 1X PRN PRN IV Hypotension; Start 02/06/19 at 07:45; Stop 02/06/19 at 13:44; Status DC Sodium Chloride (Normal Saline Flush) 10 ml 1X PRN PRN IV AP catheter pack; Start 02/06/19 at 07:45; Stop 02/07/19 at 07:44; Status DC Sodium Chloride (Normal Saline Flush) 10 ml 1X PRN PRN IV WIRELESS ARCHITECT catheter pack; Start 02/06/19 at 07:45; Stop 02/07/19 at 07:44; Status DC Sodium Chloride 1,000 ml @ 400 mls/hr Q2H30M PRN IV PATENCY; Start 02/06/19 at 07:34; Stop 02/06/19 at 19:33; Status DC Info (PHARMACY MONITORING -- do not chart) 1 each PRN DAILY PRN MC SEE COMMENTS; Start 02/06/19 at 07:45; Status UNV Info (PHARMACY MONITORING -- do not chart) 1 each PRN DAILY PRN MC SEE COMMENTS; Start 02/06/19 at 07:45; Status Cancel Darbepoetin David (Aranesp) 100 mcg Th SQ ; Start 02/12/19 at 21:00 Insulin Human Lispro (HumaLOG) 10 units 1X ONCE SQ ; Start 02/07/19 at 22:00; Stop 02/07/19 at 22:01; Status DC Insulin Human Lispro (HumaLOG) 3 units TIDWMEALS SQ Last administered on 02/10/19at 19:07; Start 02/09/19 at 08:30 Sodium Chloride 1,000 ml @ 1,000 mls/hr Q1H PRN IV hypotension; Start 02/09/19 at 09:14; Stop 02/09/19 at 15:13; Status DC Sodium Chloride 1,000 ml @ 400 mls/hr Q2H30M PRN IV PATENCY; Start 02/09/19 at 09:14; Stop 02/09/19 at 21:13; Status DC Info (PHARMACY MONITORING -- do not chart) 1 each PRN DAILY PRN MC SEE COMMENTS; Start 02/09/19 at 09:15; Status Cancel Info (PHARMACY MONITORING -- do not chart) 1 each PRN DAILY PRN MC SEE COMMENTS; Start 02/09/19 at 09:15; Status UNV Polyethylene Glycol (miraLAX PACKET) 17 gm DAILY PO Last administered on 02/10/19at 09:38; Start 02/10/19 at 09:00 Sodium Chloride 1,000 ml @ 1,000 mls/hr Q1H PRN IV hypotension; Start 02/11/19 at 12:04; Stop 02/11/19 at 18:03 Sodium Chloride 1,000 ml @ 400 mls/hr Q2H30M PRN IV PATENCY; Start 02/11/19 at 12:04; Stop 02/12/19 at 00:03 Info (PHARMACY MONITORING -- do not chart) 1 each PRN DAILY PRN MC SEE COMMENTS; Start 02/11/19 at 12:15; Status UNV Info (PHARMACY MONITORING -- do not chart) 1 each PRN DAILY PRN MC SEE COMMENTS; Start 02/11/19 at 12:15 Active Scripts Active Percocet 5-325 Mg Tablet (Oxycodone/Acetaminophen) 1 Each Tablet 1 Tab PO PRN Q6HRS PRN Ondansetron Odt (Ondansetron) 4 Mg Tab.rapdis 1 Tab PO PRN Q6-8HRS PRN Reported Protonix (Pantoprazole Sodium) 20 Mg Tablet.dr 2 Tab PO DAILY Flonase Allergy Relief (Fluticasone Propionate) 9.9 Ml [place].susp 2 Sprays NS DAILY Procrit (Epoetin David) 10,000 Unit/1 Ml Vial 10,000 Unit IJ QSU Tums (Calcium Carbonate) 200 Mg Tab.chew 200 Mg PO BID PRN Proair Respiclick (Albuterol Sulfate) 90 Mcg Aer.pow.ba 1-2 Puff IH PRN Q6HRS PRN Senna (Sennosides) 8.6 Mg Tablet 8.6 Mg PO BID Miralax (Polyethylene Glycol 3350) 17 Gm Powd.pack 1 Packet PO DAILY Colace (Docusate Sodium) 100 Mg Capsule 1 Cap PO BID Carvedilol 25 Mg Tablet 25 Mg PO BIDWMEALS Renvela (Sevelamer Carbonate) 800 Mg Tablet 5 Tab PO TIDWMEALS Furosemide 80 Mg Tablet 1 Tab PO BID Vitamin D (Cholecalciferol (Vitamin D3)) 5,000 Unit Tablet 5,000 Unit PO DAILY Calcitriol 0.25 Mcg Capsule 2 Cap PO DAILY Clonidine Hcl 0.2 Mg Tablet 1 Tab PO BID Johanna-Celia Rx Tablet (Vit B Cmplx 3/Fa/Vit C/Biotin) 1 Each Tablet 1 Each PO DAILY Sensipar (Cinacalcet Hcl) 60 Mg Tablet 60 Mg PO DAILY Amlodipine Besylate 10 Mg Tablet 10 Mg PO DAILY Simvastatin 20 Mg Tablet 20 Mg PO HS Lisinopril 40 Mg Tablet 1 Tab PO BID Novolog (Insulin Aspart) 100 Unit/1 Ml Vial 100 Unit SQ sliding scale Lantus Solostar (Insulin Glargine,Hum.rec.anlog) 100 Unit/1 Ml Insuln.pen 16 Unit SQ HS Vitals/I & O Vital Sign - Last 24 Hours 02/10/19 02/10/19 02/10/19 02/10/19 15:00 18:56 19:05 20:02 Temp 98.6 98.5 98.6 98.5 Pulse 68 68 81 Resp 18 18 16 B/P (MAP) 137/88 (104) 137/88 145/88 (107) Pulse Ox 98 94 94 O2 Delivery Room Air Room Air Room Air 02/10/19 02/10/19 02/10/19 4/30/19 20:05 21:14 21:14 23:05 Temp 98.3 98.3 Pulse 81 81 75 Resp 18 B/P (MAP) 145/88 145/88 137/84 (101) Pulse Ox 93 O2 Delivery Room Air Room Air 02/11/19 02/11/19 02/11/19 02/11/19 03:05 07:15 09:16 09:17 Temp 98.6 97.5 98.6 97.5 Pulse 71 71 71 71 Resp 18 17 B/P (MAP) 142/86 (104) 146/85 (105) 146/85 146/85 Pulse Ox 92 94 O2 Delivery Room Air Room Air 02/11/19 02/11/19 02/11/19 09:17 09:18 10:38 Temp 97.6 97.6 Pulse 71 71 83 Resp B/P (MAP) 146/85 146/85 145/82 (103) Pulse Ox 94 O2 Delivery Room Air Intake and Output 02/10/19 02/10/19 02/11/19 15:00 23:00 07:00 Intake Total 200 ml 300 ml 400 ml Output Total 100 ml 50 ml Balance 200 ml 200 ml 350 ml JONATHONNIAL K III DO February 11, 2019 12:47
[2019-02-11] MEDS: ONDANSETRON PF 4 MG/2 ML VIAL. IV PRN (17:35)
[2019-02-11] MEDS: oxyCODONE/APAP 5/325 1 TAB TABLET PO PRN ×2 (17:36→23:53)
[2019-02-11 19:30] VITALS: BP 142/83
--- NOTE | 2019-02-11 20:53 | PDOC ---
SUBJECTIVE ROS Stable OBJECTIVE Vital Signs Vital Signs Date Time Temp Pulse Resp B/P (MAP) Pulse Ox O2 Delivery O2 Flow Rate FiO2 02/11/19 19:30 99.5 89 16 142/83 (102) 91 Room Air 99.5 02/11/19 08:00 2.0 I & 0 Intake and Output 02/11/19 06:59 Intake Total 900 ml Output Total 150 ml Balance 750 ml Intake Oral 900 ml Output Drainage Total 150 ml PHYSICAL EXAM Physical Exam General: No acute distress HEENT: PERRLA, Mucous membr. 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 Has Tunnelled DC , will have AV access placed once Hgb improves - can be done as OP Hyponatremia- Corrected for Glucose Malfunctioning PD cathter due to diffuse adhesions Removed Severe Anemia - Try to avoid PRBC as Tx Candidate But had to give 1 Unit of PrBC on Saturday Continue Aranesp DM II- as per primary HTN COMMENT/RELEVANT DATA Meds Current Medications Medications (Trade) Dose Ordered Sig/Afua Start Time Stop Time Status Last Admin Dose Admin Acetaminophen (Tylenol) 500 mg PRN Q6HRS PRN 02/05/19 13:30 Albumin Human 200 ml @ 200 mls/hr 1X PRN PRN 02/06/19 07:45 02/06/19 13:44 DC Albuterol Sulfate (Ventolin Neb Soln) 2.5 mg PRN Q6HRS PRN 02/05/19 11:45 Amlodipine Besylate (Norvasc) 10 mg DAILY 02/05/19 12:00 02/11/19 09:17 10 MG Bupivacaine HCl/ Epinephrine Bitart (Sensorcain-Mpf Epi 0.5%-1:[id number]) 30 ml STK-MED ONCE 02/05/19 06:30 02/05/19 07:30 DC 02/05/19 07:51 10 ML Calcitriol (Rocaltrol) 0.5 mcg DAILY 02/05/19 13:00 02/10/19 09:30 0.5 MCG Calcium Carbonate/ Glycine (Tums) 250 mg PRN BID PRN 02/05/19 10:45 Calcium Gluconate (Calcium Gluconate) 1,000 mg 1X ONCE 02/06/19 07:15 02/06/19 07:16 DC Carvedilol (Coreg) 25 mg BIDWMEALS 02/05/19 17:00 02/11/19 17:35 25 MG Cinacalcet (Sensipar) 60 mg DAILY 02/05/19 13:00 02/11/19 09:15 60 MG Clonidine HCl (Catapres) 0.2 mg BID 02/05/19 12:00 02/11/19 09:16 0.2 MG Darbepoetin David (Aranesp) 100 mcg Th 02/12/19 21:00 Dexamethasone Sodium Phosphate (Decadron) 4 mg STK-MED ONCE 02/05/19 07:21 02/05/19 07:22 DC Dextrose (Dextrose 50%-Water Syringe) 12.5 gm PRN Q15MIN PRN 02/06/19 03:30 Diphenhydramine HCl (Benadryl) 25 mg PRN Q6HRS PRN 02/05/19 10:30 02/11/19 00:18 25 MG Docusate Sodium (Colace) 100 mg BID 02/05/19 21:00 02/11/19 09:19 100 MG Fentanyl Citrate (Fentanyl 2ml Vial) 100 mcg STK-MED ONCE 02/05/19 11:56 02/05/19 11:57 DC Fluticasone Propionate (Flonase) 2 spray DAILY 02/06/19 09:00 02/07/19 09:06 2 SPRAY Furosemide (Lasix) 80 mg [id number] 02/05/19 14:00 02/11/19 09:19 80 MG Glycopyrrolate (Robinul) 1 mg STK-MED ONCE 02/05/19 07:21 02/05/19 07:22 DC Heparin Sodium (Porcine) (Heparin Sodium) 5,000 unit Q8HRS 02/05/19 22:00 02/08/19 05:46 5,000 UNIT Heparin Sodium (Porcine) 5000 unit/Sodium Chloride 505 ml @ 505 mls/hr 1X ONCE 02/05/19 06:00 02/05/19 06:59 DC 02/05/19 07:52 Hydromorphone HCl (Dilaudid) 1 mg PRN Q3HRS PRN 02/05/19 10:30 02/07/19 21:03 1 MG Info (PHARMACY MONITORING -- do not chart) 1 each PRN DAILY PRN 02/11/19 12:15 Insulin Glargine (Lantus) 16 units HS 02/05/19 21:00 02/10/19 21:23 16 UNITS Insulin Human Lispro (HumaLOG VIAL) 4 unit 1X ONCE 02/05/19 08:00 02/05/19 08:01 DC 02/05/19 07:59 4 UNIT Insulin Human Lispro (HumaLOG) 3 units TIDWMEALS 02/09/19 08:30 02/11/19 17:47 3 UNITS Levofloxacin/ Dextrose 100 ml @ 100 mls/hr 1X PREOP PRN 02/05/19 06:00 02/05/19 18:00 DC 02/05/19 07:35 100 MLS/HR Lidocaine HCl (Lidocaine Pf 2% Vial) 5 ml STK-MED ONCE 02/05/19 07:21 02/05/19 07:22 DC Lidocaine HCl (Xylocaine-Mpf 1% 2ml Vial) 2 ml PRN 1X PRN 02/05/19 07:00 02/05/19 20:00 DC Lisinopril (Prinivil) 40 mg BID 02/05/19 21:00 02/11/19 09:17 40 MG Morphine Sulfate (Morphine Sulfate) 1 mg PRN Q10MIN PRN 02/05/19 07:00 02/05/19 20:00 DC Neostigmine Methylsulfate (Neostigmine Methylsulfate) 5 mg STK-MED ONCE 02/05/19 07:21 02/05/19 07:22 DC Non-Formulary Medication (Albuterol Sulfate (Proair Respiclick)) one to two puffs q6hrs ... PRN Q6HRS PRN 02/05/19 10:45 UNV Ondansetron HCl (Zofran) 4 mg PRN Q6HRS PRN 02/05/19 10:30 02/11/19 17:35 4 MG Oxycodone/ Acetaminophen (Percocet 5/325) 2 tab PRN Q4HRS PRN 02/05/19 10:30 02/11/19 17:36 2 TAB Pantoprazole Sodium (Protonix) 40 mg DAILYAC 02/05/19 16:30 02/11/19 09:16 40 MG Polyethylene Glycol (miraLAX PACKET) 17 gm DAILY 02/10/19 09:00 02/10/19 09:38 17 GM Prochlorperazine Edisylate (Compazine) 5 mg PACU PRN PRN 02/05/19 07:00 02/05/19 20:00 DC Propofol 20 ml @ As Directed STK-MED ONCE 02/05/19 07:21 02/05/19 07:22 DC Ringer's Solution 1,000 ml @ 30 mls/hr Q24H 02/05/19 07:00 02/05/19 18:59 Cancel Rocuronium [place] (Zemuron) 50 mg STK-MED ONCE 02/05/19 07:21 02/05/19 07:22 DC Sennosides (Senna) 8.6 mg BID 02/05/19 11:45 02/11/19 09:18 8.6 MG Sevelamer Carbonate (Renvela) 4,000 mg TIDWMEALS 02/05/19 12:00 02/11/19 17:34 4,000 MG Sevoflurane (Ultane) 30 ml STK-MED ONCE 02/05/19 07:21 02/05/19 07:22 DC Simvastatin (Zocor) 20 mg HS 02/05/19 21:00 02/10/19 21:15 20 MG Sodium Chloride 1,000 ml @ 400 mls/hr Q2H30M PRN 02/11/19 12:04 02/12/19 00:03 Sodium Chloride (Normal Saline Flush) 10 ml 1X PRN PRN 02/06/19 07:45 02/07/19 07:44 DC Vitamin B Complex/ Vitamin C (Johanna-Eclia) 1 tab DAILY 02/05/19 13:00 02/11/19 09:16 1 TAB Vitamin D (Vitamin D3) 5,000 unit DAILY 02/05/19 13:00 02/11/19 09:18 5,000 UNIT Zolpidem Tartrate (Ambien) 5 mg PRN QHS PRN 02/05/19 13:30 Lab Laboratory Tests Test 02/10/19 21:19 02/11/19 04:25 02/11/19 07:07 02/11/19 11:45 Glucose (Fingerstick) 254 mg/dL (70-99) 169 mg/dL (70-99) 260 mg/dL (70-99) Sodium Level 139 mmol/L (136-145) Potassium Level 4.5 mmol/L (3.5-5.1) Chloride Level 99 mmol/L (98-107) Carbon Dioxide Level 31 mmol/L (21-32) Anion Gap 9 (6-14) Blood Urea Nitrogen 42 mg/dL (8-26) Creatinine 12.2 mg/dL (0.7-1.3) Estimated GFR (Cockcroft-Gault) 5.7 Glucose Level 152 mg/dL (70-99) Calcium Level 8.7 mg/dL (8.5-10.1) Phosphorus Level 6.6 mg/dL (2.6-4.7) Albumin 2.7 g/dL (3.4-5.0) Test 02/11/19 17:16 Glucose (Fingerstick) 151 mg/dL (70-99) Results All relevant outside records, renal labs, imaging studies, telemetry/EKG's were reviewed. AYANNA PEREZ MD February 11, 2019 20:53
[2019-02-11] MEDS ORDERED: INSULIN LISPRO 300 UNITS/3 ML INSULN.PEN. SQ ONE (21:45)
[2019-02-11] MEDS: SIMVASTATIN 20 MG TABLET PO SCH (21:48)
[2019-02-11] MEDS: INSULIN GLARGINE 300 UNITS/3 ML INSULN.PEN. SQ SCH (21:57)
[2019-02-11 23:09] VITALS: BP 155/88
[2019-02-12 03:37] VITALS: BP 139/86
[2019-02-12 04:20] LABS: BASO % 0 % (0-3); EOS # 0.7 x10^3/uL (0.0-0.7); EOS % 8 % (0-3); HEMATOCRIT 22.1 % (39.0-53.0); HEMOGLOBIN 7.4 g/dL (13.0-17.5); LYMPH # 0.6 x10^3/uL (1.0-4.8); LYMPH % 7 % (24-48); MEAN CORPUSCULAR HEMOGLOBIN 28 pg (25-35); MEAN CORPUSCULAR HGB CONC 33 g/dL (31-37); MEAN CORPUSCULAR VOLUME 85 fL (79-100); MONO # 0.7 x10^3/uL (0.0-1.1); MONO % 7 % (0-9); NEUT # 6.9 x10^3uL (1.8-7.7); NEUT % 77 % (31-73); PLATELET COUNT 274 x10^3/uL (140-400); RED BLOOD COUNT 2.59 x10^6/uL (4.30-5.70)
[2019-02-12 04:35] LABS: CALCIUM 9.2 mg/dL (8.5-10.1); CREATININE 8.9 mg/dL (0.7-1.3); GFR 8.2
[2019-02-12] MEDS: HEPARIN for SUB-Q USE 5,000 UNIT/ML VIAL. SQ SCH ×2 (04:56→14:00)
[2019-02-12 07:20] VITALS: BP 135/82
[2019-02-12] MEDS: SEVELAMER CARBONATE 800 MG TABLET. PO SCH ×3 (08:00→17:41)
[2019-02-12] MEDS: INSULIN LISPRO 300 UNITS/3 ML INSULN.PEN. SQ SCH ×6 (08:00→17:49)
[2019-02-12] MEDS: POLYETHYLENE GLYCOL 3350 17 GM PACKET. PO SCH ×2 (09:00→12:25)
[2019-02-12] MEDS: FLUTICASONE 50MCG/NASAL SPRAY 16GM BOTTLE. NS SCH (09:00)
--- NOTE | 2019-02-12 10:15 | PDOC ---
SUBJECTIVE ROS Stable OBJECTIVE Vital Signs Vital Signs Date Time Temp Pulse Resp B/P (MAP) Pulse Ox O2 Delivery O2 Flow Rate FiO2 02/12/19 07:20 97.5 69 17 135/82 (99) 96 Room Air 97.5 02/11/19 08:00 2.0 I & 0 Intake and Output 02/12/19 06:59 Intake Total 940 ml Output Total 60 ml Balance 880 ml Intake Oral 940 ml Output Urine Total 0 ml Drainage Total 60 ml # Bowel Movements 1 PHYSICAL EXAM Physical Exam General: No acute distress HEENT: PERRLA, Mucous membr. moist/pink Lungs: Clear to auscultation, Normal air movement Heart: Regular rate, Normal S1, Normal S2, No murmurs Abdomen: Normal bowel sounds, Soft, Extremities: No clubbing, No cyanosis, No edema, Normal pulses, No tenderness/swelling Skin: No rashes, No breakdown Neuro: Normal gait, Normal speech, Normal tone, Sensation intact, Reflexes 2+ Psych/Mental Status: Mental status NL, Mood NL DIAGNOSIS/ASSESSMENT Assessment & Plan ESRD- on HD MWF No indication today for HD Has Tunnelled DC , will have AV access placed once Hgb improves - can be done as OP Hyponatremia- normal Malfunctioning PD catheter due to diffuse adhesions Removed Severe Anemia - Try to avoid PRBC as Tx Candidate Recd 1 Unit of PrBC on Saturday Continue Aranesp DM II- as per primary HTN- BP at goal COMMENT/RELEVANT DATA Meds Current Medications Medications (Trade) Dose Ordered Sig/Afua Start Time Stop Time Status Last Admin Dose Admin Acetaminophen (Tylenol) 500 mg PRN Q6HRS PRN 02/05/19 13:30 Albumin Human 200 ml @ 200 mls/hr 1X PRN PRN 02/06/19 07:45 02/06/19 13:44 DC Albuterol Sulfate (Ventolin Neb Soln) 2.5 mg PRN Q6HRS PRN 02/05/19 11:45 Amlodipine Besylate (Norvasc) 10 mg DAILY 02/05/19 12:00 02/11/19 09:17 10 MG Bupivacaine HCl/ Epinephrine Bitart (Sensorcain-Mpf Epi 0.5%-1:[id number]) 30 ml STK-MED ONCE 02/05/19 06:30 02/05/19 07:30 DC 02/05/19 07:51 10 ML Calcitriol (Rocaltrol) 0.5 mcg DAILY 02/05/19 13:00 02/10/19 09:30 0.5 MCG Calcium Carbonate/ Glycine (Tums) 250 mg PRN BID PRN 02/05/19 10:45 Calcium Gluconate (Calcium Gluconate) 1,000 mg 1X ONCE 02/06/19 07:15 02/06/19 07:16 DC Carvedilol (Coreg) 25 mg BIDWMEALS 02/05/19 17:00 02/11/19 17:35 25 MG Cinacalcet (Sensipar) 60 mg DAILY 02/05/19 13:00 02/11/19 09:15 60 MG Clonidine HCl (Catapres) 0.2 mg BID 02/05/19 12:00 02/11/19 21:49 0.2 MG Darbepoetin David (Aranesp) 100 mcg Th 02/12/19 21:00 Dexamethasone Sodium Phosphate (Decadron) 4 mg STK-MED ONCE 02/05/19 07:21 02/05/19 07:22 DC Dextrose (Dextrose 50%-Water Syringe) 12.5 gm PRN Q15MIN PRN 02/06/19 03:30 Diphenhydramine HCl (Benadryl) 25 mg PRN Q6HRS PRN 02/05/19 10:30 02/11/19 00:18 25 MG Docusate Sodium (Colace) 100 mg BID 02/05/19 21:00 02/11/19 21:47 100 MG Fentanyl Citrate (Fentanyl 2ml Vial) 100 mcg STK-MED ONCE 02/05/19 11:56 02/05/19 11:57 DC Fluticasone Propionate (Flonase) 2 spray DAILY 02/06/19 09:00 02/07/19 09:06 2 SPRAY Furosemide (Lasix) 80 mg [id number] 02/05/19 14:00 02/11/19 09:19 80 MG Glycopyrrolate (Robinul) 1 mg STK-MED ONCE 02/05/19 07:21 02/05/19 07:22 DC Heparin Sodium (Porcine) (Heparin Sodium) 5,000 unit Q8HRS 02/05/19 22:00 02/08/19 05:46 5,000 UNIT Heparin Sodium (Porcine) 5000 unit/Sodium Chloride 505 ml @ 505 mls/hr 1X ONCE 02/05/19 06:00 02/05/19 06:59 DC 02/05/19 07:52 Hydromorphone HCl (Dilaudid) 1 mg PRN Q3HRS PRN 02/05/19 10:30 02/07/19 21:03 1 MG Info (PHARMACY MONITORING -- do not chart) 1 each PRN DAILY PRN 02/11/19 12:15 Insulin Glargine (Lantus) 16 units HS 02/05/19 21:00 02/11/19 21:57 16 UNITS Insulin Human Lispro (HumaLOG VIAL) 4 unit 1X ONCE 02/05/19 08:00 02/05/19 08:01 DC 02/05/19 07:59 4 UNIT Insulin Human Lispro (HumaLOG) 14 units 1X ONCE 02/11/19 21:45 02/11/19 21:46 DC 02/11/19 22:00 14 UNITS Levofloxacin/ Dextrose 100 ml @ 100 mls/hr 1X PREOP PRN 02/05/19 06:00 02/05/19 18:00 DC 02/05/19 07:35 100 MLS/HR Lidocaine HCl (Lidocaine Pf 2% Vial) 5 ml STK-MED ONCE 02/05/19 07:21 02/05/19 07:22 DC Lidocaine HCl (Xylocaine-Mpf 1% 2ml Vial) 2 ml PRN 1X PRN 02/05/19 07:00 02/05/19 20:00 DC Lisinopril (Prinivil) 40 mg BID 02/05/19 21:00 02/11/19 21:48 40 MG Morphine Sulfate (Morphine Sulfate) 1 mg PRN Q10MIN PRN 02/05/19 07:00 02/05/19 20:00 DC Neostigmine Methylsulfate (Neostigmine Methylsulfate) 5 mg STK-MED ONCE 02/05/19 07:21 02/05/19 07:22 DC Non-Formulary Medication (Albuterol Sulfate (Proair Respiclick)) one to two puffs q6hrs ... PRN Q6HRS PRN 02/05/19 10:45 UNV Ondansetron HCl (Zofran) 4 mg PRN Q6HRS PRN 02/05/19 10:30 02/11/19 17:35 4 MG Oxycodone/ Acetaminophen (Percocet 5/325) 2 tab PRN Q4HRS PRN 02/05/19 10:30 02/11/19 17:36 2 TAB Pantoprazole Sodium (Protonix) 40 mg DAILYAC 02/05/19 16:30 02/11/19 09:16 40 MG Polyethylene Glycol (miraLAX PACKET) 17 gm DAILY 02/10/19 09:00 02/10/19 09:38 17 GM Prochlorperazine Edisylate (Compazine) 5 mg PACU PRN PRN 02/05/19 07:00 02/05/19 20:00 DC Propofol 20 ml @ As Directed STK-MED ONCE 02/05/19 07:21 02/05/19 07:22 DC Ringer's Solution 1,000 ml @ 30 mls/hr Q24H 02/05/19 07:00 02/05/19 18:59 Cancel Rocuronium [place] (Zemuron) 50 mg STK-MED ONCE 02/05/19 07:21 02/05/19 07:22 DC Sennosides (Senna) 8.6 mg BID 02/05/19 11:45 02/11/19 21:47 8.6 MG Sevelamer Carbonate (Renvela) 4,000 mg TIDWMEALS 02/05/19 12:00 02/11/19 17:34 4,000 MG Sevoflurane (Ultane) 30 ml STK-MED ONCE 02/05/19 07:21 02/05/19 07:22 DC Simvastatin (Zocor) 20 mg HS 02/05/19 21:00 02/11/19 21:48 20 MG Sodium Chloride 1,000 ml @ 400 mls/hr Q2H30M PRN 02/11/19 12:04 02/12/19 00:03 DC Sodium Chloride (Normal Saline Flush) 10 ml 1X PRN PRN 02/06/19 07:45 02/07/19 07:44 DC Vitamin B Complex/ Vitamin C (Johanna-Celia) 1 tab DAILY 02/05/19 13:00 02/11/19 09:16 1 TAB Vitamin D (Vitamin D3) 5,000 unit DAILY 02/05/19 13:00 02/11/19 09:18 5,000 UNIT Zolpidem Tartrate (Ambien) 5 mg PRN QHS PRN 02/05/19 13:30 Lab Laboratory Tests Test 02/11/19 11:45 02/11/19 17:16 02/11/19 20:53 02/12/19 03:30 Glucose (Fingerstick) 260 mg/dL (70-99) 151 mg/dL (70-99) 400 mg/dL (70-99) White Blood Count 9.0 x10^3/uL (4.0-11.0) Red Blood Count 2.59 x10^6/uL (4.30-5.70) Hemoglobin 7.4 g/dL (13.0-17.5) Hematocrit 22.1 % (39.0-53.0) Mean Corpuscular Volume 85 fL (79-100) Mean Corpuscular Hemoglobin 28 pg (25-35) Mean Corpuscular Hemoglobin Concent 33 g/dL (31-37) Red Cell Distribution Width 17.0 % (11.5-14.5) Platelet Count 274 x10^3/uL (140-400) Neutrophils (%) (Auto) 77 % (31-73) Lymphocytes (%) (Auto) 7 % (24-48) Monocytes (%) (Auto) 7 % (0-9) Eosinophils (%) (Auto) 8 % (0-3) Basophils (%) (Auto) 0 % (0-3) Neutrophils # (Auto) 6.9 x10^3uL (1.8-7.7) Lymphocytes # (Auto) 0.6 x10^3/uL (1.0-4.8) Monocytes # (Auto) 0.7 x10^3/uL (0.0-1.1) Eosinophils # (Auto) 0.7 x10^3/uL (0.0-0.7) Basophils # (Auto) 0.0 x10^3/uL (0.0-0.2) Sodium Level 137 mmol/L (136-145) Potassium Level 5.0 mmol/L (3.5-5.1) Chloride Level 98 mmol/L (98-107) Carbon Dioxide Level 31 mmol/L (21-32) Anion Gap 8 (6-14) Blood Urea Nitrogen 37 mg/dL (8-26) Creatinine 8.9 mg/dL (0.7-1.3) Estimated GFR (Cockcroft-Gault) 8.2 Glucose Level 264 mg/dL (70-99) Calcium Level 9.2 mg/dL (8.5-10.1) Test 02/12/19 07:07 Glucose (Fingerstick) 201 mg/dL (70-99) Results All relevant outside records, renal labs, imaging studies, telemetry/EKG's were reviewed. AYANNA PEREZ MD February 12, 2019 10:14
[2019-02-12 11:21] VITALS: BP 155/84
[2019-02-12] MEDS: FOLIC/VIT B COMP W-C (RENAL) TABLET. PO SCH (12:23)
[2019-02-12] MEDS: LISINOPRIL 20 MG TABLET PO SCH (12:24)
[2019-02-12] MEDS: amLODIPine BESYLATE 10 MG TABLET PO SCH (12:24)
[2019-02-12] MEDS: CHOLECALCIFEROL (VITAMIN D3) 5,000 UNIT CAPSULE PO SCH (12:24)
[2019-02-12] MEDS: CARVEDILOL 12.5 MG TABLET. PO SCH ×2 (12:24→17:41)
[2019-02-12] MEDS: SENNOSIDES 8.6 MG TABLET PO SCH (12:25)
[2019-02-12] MEDS: CINACALCET HCL 30 MG TABLET PO SCH (12:25)
[2019-02-12] MEDS: CALCITRIOL 0.25 MCG CAPSULE. PO SCH (12:25)
[2019-02-12] MEDS: cloNIDine HCL 0.2 MG TABLET PO SCH (12:25)
[2019-02-12] MEDS: PANTOPRAZOLE 40 MG TABLET.DR. PO SCH (12:26)
[2019-02-12] MEDS: DOCUSATE SODIUM 100 MG CAPSULE. PO SCH (12:26)
[2019-02-12] MEDS: FUROSEMIDE 80 MG TABLET. PO SCH ×2 (12:26→14:00)
--- NOTE | 2019-02-12 13:30 | PDOC ---
SURGICAL PROGRESS NOTE Subjective eating lunch no n/v pain managed Vital Signs Vital Signs Date Time Temp Pulse Resp B/P (MAP) Pulse Ox O2 Delivery O2 Flow Rate FiO2 02/12/19 12:25 71 155/84 02/12/19 11:21 97.5 18 96 Room Air 97.5 02/11/19 08:00 2.0 I&O Intake and Output 02/12/19 06:59 Intake Total 940 ml Output Total 60 ml Balance 880 ml Intake Oral 940 ml Output Urine Total 0 ml Drainage Total 60 ml # Bowel Movements 1 General: Alert, Oriented X3, Cooperative, No acute distress Abdomen: Soft, Other (drain serous ) Labs Laboratory Tests Test 02/10/19 16:57 02/10/19 21:19 02/11/19 04:25 02/11/19 07:07 Glucose (Fingerstick) 200 mg/dL (70-99) 254 mg/dL (70-99) 169 mg/dL (70-99) Sodium Level 139 mmol/L (136-145) Potassium Level 4.5 mmol/L (3.5-5.1) Chloride Level 99 mmol/L (98-107) Carbon Dioxide Level 31 mmol/L (21-32) Anion Gap 9 (6-14) Blood Urea Nitrogen 42 mg/dL (8-26) Creatinine 12.2 mg/dL (0.7-1.3) Estimated GFR (Cockcroft-Gault) 5.7 Glucose Level 152 mg/dL (70-99) Calcium Level 8.7 mg/dL (8.5-10.1) Phosphorus Level 6.6 mg/dL (2.6-4.7) Albumin 2.7 g/dL (3.4-5.0) Test 02/11/19 11:45 02/11/19 17:16 02/11/19 20:53 02/12/19 03:30 Glucose (Fingerstick) 260 mg/dL (70-99) 151 mg/dL (70-99) 400 mg/dL (70-99) White Blood Count 9.0 x10^3/uL (4.0-11.0) Red Blood Count 2.59 x10^6/uL (4.30-5.70) Hemoglobin 7.4 g/dL (13.0-17.5) Hematocrit 22.1 % (39.0-53.0) Mean Corpuscular Volume 85 fL (79-100) Mean Corpuscular Hemoglobin 28 pg (25-35) Mean Corpuscular Hemoglobin Concent 33 g/dL (31-37) Red Cell Distribution Width 17.0 % (11.5-14.5) Platelet Count 274 x10^3/uL (140-400) Neutrophils (%) (Auto) 77 % (31-73) Lymphocytes (%) (Auto) 7 % (24-48) Monocytes (%) (Auto) 7 % (0-9) Eosinophils (%) (Auto) 8 % (0-3) Basophils (%) (Auto) 0 % (0-3) Neutrophils # (Auto) 6.9 x10^3uL (1.8-7.7) Lymphocytes # (Auto) 0.6 x10^3/uL (1.0-4.8) Monocytes # (Auto) 0.7 x10^3/uL (0.0-1.1) Eosinophils # (Auto) 0.7 x10^3/uL (0.0-0.7) Basophils # (Auto) 0.0 x10^3/uL (0.0-0.2) Sodium Level 137 mmol/L (136-145) Potassium Level 5.0 mmol/L (3.5-5.1) Chloride Level 98 mmol/L (98-107) Carbon Dioxide Level 31 mmol/L (21-32) Anion Gap 8 (6-14) Blood Urea Nitrogen 37 mg/dL (8-26) Creatinine 8.9 mg/dL (0.7-1.3) Estimated GFR (Cockcroft-Gault) 8.2 Glucose Level 264 mg/dL (70-99) Calcium Level 9.2 mg/dL (8.5-10.1) Test 02/12/19 07:07 02/12/19 11:56 Glucose (Fingerstick) 201 mg/dL (70-99) 227 mg/dL (70-99) Laboratory Tests Test 02/11/19 17:16 02/11/19 20:53 02/12/19 03:30 02/12/19 07:07 Glucose (Fingerstick) 151 mg/dL (70-99) 400 mg/dL (70-99) 201 mg/dL (70-99) White Blood Count 9.0 x10^3/uL (4.0-11.0) Red Blood Count 2.59 x10^6/uL (4.30-5.70) Hemoglobin 7.4 g/dL (13.0-17.5) Hematocrit 22.1 % (39.0-53.0) Mean Corpuscular Volume 85 fL (79-100) Mean Corpuscular Hemoglobin 28 pg (25-35) Mean Corpuscular Hemoglobin Concent 33 g/dL (31-37) Red Cell Distribution Width 17.0 % (11.5-14.5) Platelet Count 274 x10^3/uL (140-400) Neutrophils (%) (Auto) 77 % (31-73) Lymphocytes (%) (Auto) 7 % (24-48) Monocytes (%) (Auto) 7 % (0-9) Eosinophils (%) (Auto) 8 % (0-3) Basophils (%) (Auto) 0 % (0-3) Neutrophils # (Auto) 6.9 x10^3uL (1.8-7.7) Lymphocytes # (Auto) 0.6 x10^3/uL (1.0-4.8) Monocytes # (Auto) 0.7 x10^3/uL (0.0-1.1) Eosinophils # (Auto) 0.7 x10^3/uL (0.0-0.7) Basophils # (Auto) 0.0 x10^3/uL (0.0-0.2) Sodium Level 137 mmol/L (136-145) Potassium Level 5.0 mmol/L (3.5-5.1) Chloride Level 98 mmol/L (98-107) Carbon Dioxide Level 31 mmol/L (21-32) Anion Gap 8 (6-14) Blood Urea Nitrogen 37 mg/dL (8-26) Creatinine 8.9 mg/dL (0.7-1.3) Estimated GFR (Cockcroft-Gault) 8.2 Glucose Level 264 mg/dL (70-99) Calcium Level 9.2 mg/dL (8.5-10.1) Test 02/12/19 11:56 Glucose (Fingerstick) 227 mg/dL (70-99) Problem List pd cath removal dc home today FU with Dr Rodriguez 02/17 at 930 MASON NEVAREZ APRN February 12, 2019 13:30
--- NOTE | 2019-02-12 13:32 | DISCH ---
DISCHARGE INSTRUCTIONS Condition on Discharge Condition on Discharge: Unstable Activity After Discharge Activity Instructions for Disc: No restrictions Bathing Instructions: Shower-keep dressing dry, No Tub Bath until see Driving Instructions after Dis: Do not drive Weight Bearing Status after Di: No restrictions Diet after Discharge Diet after Discharge: Renal Dialysis Diet Texture: Regular Liquid Texture: Thin Liquid Swallowing Supervision: None needed Wound Incision Care Wound/Incision Care: No wound care needed Other wound/incision instructi: drain care as instructed Checks after Discharge Checks after discharge: Check blood press - daily, Check blood sugar, ac/hs, Check your Temp as needed, Weigh Yourself Daily Contacting the after DC Call your doctor for: Concerns you may have Follow-Up Follow up with: Dr Rodriguez 02/17 at 930am -call for questions [phone] Treatment/Equipment after DC Adaptive Equipment Issued: MASON Alston APRN February 12, 2019 13:32
--- NOTE | 2019-02-12 13:49 | PDOC ---
PROGRESS NOTES Chief Complaint Chief Complaint Malfunctioning PD catheter, removed by GS intra op-02/05/19 ESRD. prev PD, now HD through right subclavian since November 2018 Anemia of ESRD Hypertension Diabetes type 1 History of Present Illness History of Present Illness Patient seen and examined. Patient resting comfortably in no acute distress. Patient is scheduled to get a renal transplant soon, Pain control OK Vitals Vitals Vital Signs Date Time Temp Pulse Resp B/P (MAP) Pulse Ox O2 Delivery O2 Flow Rate FiO2 02/12/19 12:25 71 155/84 02/12/19 11:21 97.5 18 96 Room Air 97.5 02/11/19 08:00 2.0 Physical Exam Physical Exam (binder on, small amount of serosanguineous drainage in bulb) General: Alert, Oriented X3, Cooperative, No acute distress Heart: Regular rate, Normal S1, Normal S2, No murmurs Lungs: Clear Abdomen: Soft, Other (drain serous ) Extremities: No clubbing, No cyanosis Skin: No breakdown Labs LABS Laboratory Tests Test 02/11/19 17:16 02/11/19 20:53 02/12/19 03:30 02/12/19 07:07 Glucose (Fingerstick) 151 mg/dL (70-99) 400 mg/dL (70-99) 201 mg/dL (70-99) White Blood Count 9.0 x10^3/uL (4.0-11.0) Red Blood Count 2.59 x10^6/uL (4.30-5.70) Hemoglobin 7.4 g/dL (13.0-17.5) Hematocrit 22.1 % (39.0-53.0) Mean Corpuscular Volume 85 fL (79-100) Mean Corpuscular Hemoglobin 28 pg (25-35) Mean Corpuscular Hemoglobin Concent 33 g/dL (31-37) Red Cell Distribution Width 17.0 % (11.5-14.5) Platelet Count 274 x10^3/uL (140-400) Neutrophils (%) (Auto) 77 % (31-73) Lymphocytes (%) (Auto) 7 % (24-48) Monocytes (%) (Auto) 7 % (0-9) Eosinophils (%) (Auto) 8 % (0-3) Basophils (%) (Auto) 0 % (0-3) Neutrophils # (Auto) 6.9 x10^3uL (1.8-7.7) Lymphocytes # (Auto) 0.6 x10^3/uL (1.0-4.8) Monocytes # (Auto) 0.7 x10^3/uL (0.0-1.1) Eosinophils # (Auto) 0.7 x10^3/uL (0.0-0.7) Basophils # (Auto) 0.0 x10^3/uL (0.0-0.2) Sodium Level 137 mmol/L (136-145) Potassium Level 5.0 mmol/L (3.5-5.1) Chloride Level 98 mmol/L (98-107) Carbon Dioxide Level 31 mmol/L (21-32) Anion Gap 8 (6-14) Blood Urea Nitrogen 37 mg/dL (8-26) Creatinine 8.9 mg/dL (0.7-1.3) Estimated GFR (Cockcroft-Gault) 8.2 Glucose Level 264 mg/dL (70-99) Calcium Level 9.2 mg/dL (8.5-10.1) Test 02/12/19 11:56 Glucose (Fingerstick) 227 mg/dL (70-99) Review of Systems Review of Systems ROS unable to obtain as pt remained sleeping Assessment and Plan Assessmemt and Plan Assessment: ESRD- associated anemia Recent tunnelled dialysis catheter placement Hypertension Diabetes type 1 Plan Wound care HD M,W,F Labs PT/OT Home meds DVT PPx BIPAP Discharge Dispo: If discharged follow up with PCP in 1 week Comment Review of Relevant I have reviewed the following items javy (where applicable) has been applied. Labs Laboratory Tests Test 02/10/19 16:57 02/10/19 21:19 02/11/19 04:25 02/11/19 07:07 Glucose (Fingerstick) 200 mg/dL (70-99) 254 mg/dL (70-99) 169 mg/dL (70-99) Sodium Level 139 mmol/L (136-145) Potassium Level 4.5 mmol/L (3.5-5.1) Chloride Level 99 mmol/L (98-107) Carbon Dioxide Level 31 mmol/L (21-32) Anion Gap 9 (6-14) Blood Urea Nitrogen 42 mg/dL (8-26) Creatinine 12.2 mg/dL (0.7-1.3) Estimated GFR (Cockcroft-Gault) 5.7 Glucose Level 152 mg/dL (70-99) Calcium Level 8.7 mg/dL (8.5-10.1) Phosphorus Level 6.6 mg/dL (2.6-4.7) Albumin 2.7 g/dL (3.4-5.0) Test 02/11/19 11:45 02/11/19 17:16 02/11/19 20:53 02/12/19 03:30 Glucose (Fingerstick) 260 mg/dL (70-99) 151 mg/dL (70-99) 400 mg/dL (70-99) White Blood Count 9.0 x10^3/uL (4.0-11.0) Red Blood Count 2.59 x10^6/uL (4.30-5.70) Hemoglobin 7.4 g/dL (13.0-17.5) Hematocrit 22.1 % (39.0-53.0) Mean Corpuscular Volume 85 fL (79-100) Mean Corpuscular Hemoglobin 28 pg (25-35) Mean Corpuscular Hemoglobin Concent 33 g/dL (31-37) Red Cell Distribution Width 17.0 % (11.5-14.5) Platelet Count 274 x10^3/uL (140-400) Neutrophils (%) (Auto) 77 % (31-73) Lymphocytes (%) (Auto) 7 % (24-48) Monocytes (%) (Auto) 7 % (0-9) Eosinophils (%) (Auto) 8 % (0-3) Basophils (%) (Auto) 0 % (0-3) Neutrophils # (Auto) 6.9 x10^3uL (1.8-7.7) Lymphocytes # (Auto) 0.6 x10^3/uL (1.0-4.8) Monocytes # (Auto) 0.7 x10^3/uL (0.0-1.1) Eosinophils # (Auto) 0.7 x10^3/uL (0.0-0.7) Basophils # (Auto) 0.0 x10^3/uL (0.0-0.2) Sodium Level 137 mmol/L (136-145) Potassium Level 5.0 mmol/L (3.5-5.1) Chloride Level 98 mmol/L (98-107) Carbon Dioxide Level 31 mmol/L (21-32) Anion Gap 8 (6-14) Blood Urea Nitrogen 37 mg/dL (8-26) Creatinine 8.9 mg/dL (0.7-1.3) Estimated GFR (Cockcroft-Gault) 8.2 Glucose Level 264 mg/dL (70-99) Calcium Level 9.2 mg/dL (8.5-10.1) Test 02/12/19 07:07 02/12/19 11:56 Glucose (Fingerstick) 201 mg/dL (70-99) 227 mg/dL (70-99) Laboratory Tests Test 02/11/19 17:16 02/11/19 20:53 02/12/19 03:30 02/12/19 07:07 Glucose (Fingerstick) 151 mg/dL (70-99) 400 mg/dL (70-99) 201 mg/dL (70-99) White Blood Count 9.0 x10^3/uL (4.0-11.0) Red Blood Count 2.59 x10^6/uL (4.30-5.70) Hemoglobin 7.4 g/dL (13.0-17.5) Hematocrit 22.1 % (39.0-53.0) Mean Corpuscular Volume 85 fL (79-100) Mean Corpuscular Hemoglobin 28 pg (25-35) Mean Corpuscular Hemoglobin Concent 33 g/dL (31-37) Red Cell Distribution Width 17.0 % (11.5-14.5) Platelet Count 274 x10^3/uL (140-400) Neutrophils (%) (Auto) 77 % (31-73) Lymphocytes (%) (Auto) 7 % (24-48) Monocytes (%) (Auto) 7 % (0-9) Eosinophils (%) (Auto) 8 % (0-3) Basophils (%) (Auto) 0 % (0-3) Neutrophils # (Auto) 6.9 x10^3uL (1.8-7.7) Lymphocytes # (Auto) 0.6 x10^3/uL (1.0-4.8) Monocytes # (Auto) 0.7 x10^3/uL (0.0-1.1) Eosinophils # (Auto) 0.7 x10^3/uL (0.0-0.7) Basophils # (Auto) 0.0 x10^3/uL (0.0-0.2) Sodium Level 137 mmol/L (136-145) Potassium Level 5.0 mmol/L (3.5-5.1) Chloride Level 98 mmol/L (98-107) Carbon Dioxide Level 31 mmol/L (21-32) Anion Gap 8 (6-14) Blood Urea Nitrogen 37 mg/dL (8-26) Creatinine 8.9 mg/dL (0.7-1.3) Estimated GFR (Cockcroft-Gault) 8.2 Glucose Level 264 mg/dL (70-99) Calcium Level 9.2 mg/dL (8.5-10.1) Test 02/12/19 11:56 Glucose (Fingerstick) 227 mg/dL (70-99) Medications Current Medications Heparin Sodium (Porcine) 5000 unit/Sodium Chloride 505 ml @ 505 mls/hr 1X ONCE IRR Last administered on 02/05/19at 07:52; Start 02/05/19 at 06:00; Stop at 06:59; Status DC Ondansetron HCl (Zofran) 4 mg PRN Q6HRS PRN IV NAUSEA/VOMITING; Start 02/05/19 at 07:00; Stop 02/05/19 at 20:00; Status DC Fentanyl Citrate (Fentanyl 2ml Vial) 25 mcg PRN Q5MIN PRN IV MILD PAIN; Start 02/05/19 at 07:00; Stop 02/05/19 at 20:00; Status DC Fentanyl Citrate (Fentanyl 2ml Vial) 50 mcg PRN Q5MIN PRN IV MODERATE TO SEVERE PAIN Last administered on 02/05/19at 11:58; Start 02/05/19 at 07:00; Stop 02/05/19 at 20:00; Status DC Morphine Sulfate (Morphine Sulfate) 1 mg PRN Q10MIN PRN IV SEVERE PAIN; Start 02/05/19 at 07:00; Stop 02/05/19 at 20:00; Status DC Ringer's Solution 1,000 ml @ 30 mls/hr Q24H IV ; Start 02/05/19 at 07:00; Stop 02/05/19 at 18:59; Status Cancel Lidocaine HCl (Xylocaine-Mpf 1% 2ml Vial) 2 ml PRN 1X PRN ID PRIOR TO IV START; Start 02/05/19 at 07:00; Stop 02/05/19 at 20:00; Status DC Hydromorphone HCl (Dilaudid) 0.5 mg PRN Q10MIN PRN IV SEV PAIN, Second choice; Start 02/05/19 at 07:00; Stop 02/05/19 at 20:00; Status DC Prochlorperazine Edisylate (Compazine) 5 mg PACU PRN PRN IV NAUSEA, MRX1; Start 02/05/19 at 07:00; Stop 02/05/19 at 20:00; Status DC Levofloxacin/ Dextrose 100 ml @ 100 mls/hr 1X PREOP PRN IV PRIOR TO PROCEDURE Last administered on 02/05/19at 07:35; Start 02/05/19 at 06:00; Stop 02/05/19 at 18:00; Status DC Propofol 20 ml @ As Directed STK-MED ONCE IV ; Start 02/05/19 at 07:21; Stop 02/05/19 at 07:22; Status DC Lidocaine HCl (Lidocaine Pf 2% Vial) 5 ml STK-MED ONCE .ROUTE ; Start 02/05/19 at 07:21; Stop 02/05/19 at 07:22; Status DC Ondansetron HCl (Zofran) 4 mg STK-MED ONCE .ROUTE ; Start 02/05/19 at 07:21; Stop 02/05/19 at 07:22; Status DC Dexamethasone Sodium Phosphate (Decadron) 4 mg STK-MED ONCE .ROUTE ; Start 02/05/19 at 07:21; Stop 02/05/19 at 07:22; Status DC Sevoflurane (Ultane) 30 ml STK-MED ONCE IH ; Start 02/05/19 at 07:21; Stop 02/05/19 at 07:22; Status DC Rocuronium [place] (Zemuron) 50 mg STK-MED ONCE .ROUTE ; Start 02/05/19 at 07:21; Stop 02/05/19 at 07:22; Status DC Neostigmine Methylsulfate (Neostigmine Methylsulfate) 5 mg STK-MED ONCE .ROUTE ; Start 02/05/19 at 07:21; Stop 02/05/19 at 07:22; Status DC Glycopyrrolate (Robinul) 1 mg STK-MED ONCE .ROUTE ; Start 02/05/19 at 07:21; Stop 02/05/19 at 07:22; Status DC Bupivacaine HCl/ Epinephrine Bitart (Sensorcain-Mpf Epi 0.5%-1:[id number]) 30 ml STK-MED ONCE .ROUTE Last administered on 02/05/19at 07:51; Start 02/05/19 at 06:30; Stop 02/05/19 at 07:30; Status DC Sodium Chloride 1,000 ml @ 75 mls/hr [id number] IV Last administered on 02/05/19at 07:39; Start 02/05/19 at 07:45; Stop 02/06/19 at 03:36; Status DC Insulin Human Lispro (HumaLOG VIAL) 4 unit 1X ONCE SQ Last administered on 02/05/19at 07:59; Start 02/05/19 at 08:00; Stop 02/05/19 at 08:01; Status DC Diphenhydramine HCl (Benadryl) 25 mg PRN Q6HRS PRN PO ITCHING Last administered on 02/11/19 00:18; Start 02/05/19 at 10:30 Heparin Sodium (Porcine) (Heparin Sodium) 5,000 unit Q8HRS SQ Last administered on 02/08/19at 05:46; Start 02/05/19 at 22:00 Sodium Chloride (Normal Saline Flush) 3 ml QSHIFT PRN IV AFTER MEDS AND BLOOD DRAWS; Start 02/05/19 at 10:30 Sodium Chloride 1,000 ml @ 50 mls/hr Q20H IV Last administered on 02/05/19at 20:52; Start 02/05/19 at 10:30; Stop 02/06/19 at 14:04; Status DC Oxycodone/ Acetaminophen (Percocet 5/325) 1 tab PRN Q4HRS PRN PO MILD PAIN, 1ST CHOICE Last administered on 02/11/19at 23:53; Start 02/05/19 at 10:30 Oxycodone/ Acetaminophen (Percocet 5/325) 2 tab PRN Q4HRS PRN PO MODERATE PAIN, SEVERE PAIN Last administered on 02/11/19 17:36; Start 02/05/19 at 10:30 Hydromorphone HCl (Dilaudid) 1 mg PRN Q3HRS PRN IV PAIN Last administered on 02/07/19 21:03; Start 02/05/19 at 10:30 Docusate Sodium (Colace) 100 mg BID PO ; Start 02/05/19 at 21:00; Status UNV Ondansetron HCl (Zofran) 4 mg PRN Q6HRS PRN IV NAUESA, 1ST CHOICE Last administered on 02/11/19 17:35; Start 02/05/19 at 10:30 Amlodipine Besylate (Norvasc) 10 mg DAILY PO Last administered on 02/12/19 12:24; Start 02/05/19 at 12:00 Calcium Carbonate/ Glycine (Tums) 250 mg PRN BID PRN PO INDIGESTION; Start 02/05/19 at 10:45 Clonidine HCl (Catapres) 0.2 mg BID PO Last administered on 02/12/19 12:25; Start 02/05/19 at 12:00 Docusate Sodium (Colace) 100 mg BID PO Last administered on 02/12/19 12:26; Start 02/05/19 at 21:00 Furosemide (Lasix) 80 mg BID92 PO Last administered on 02/12/19 12:26; Start 02/05/19 at 14:00 Insulin Glargine (Lantus) 16 units HS SQ Last administered on 02/11/19 21:57; Start 02/05/19 at 21:00 Lisinopril (Prinivil) 40 mg BID PO Last administered on 02/12/19 12:24; Start 02/05/19 at 21:00 Sevelamer Carbonate (Renvela) 4,000 mg TIDWMEALS PO Last administered on 02/12/19 12:23; Start 02/05/19 at 12:00 Non-Formulary Medication (Albuterol Sulfate (Proair Respiclick)) one to two puffs q6hrs ... PRN Q6HRS PRN IH SHORTNESS OF BREATH; Start 02/05/19 at 10:45; Status UNV Calcitriol (Rocaltrol) 0.5 mcg DAILY PO Last administered on 02/12/19 12:25; Start 02/05/19 at 13:00 Carvedilol (Coreg) 25 mg BIDWMEALS PO Last administered on 02/12/19 12:24; Start 02/05/19 at 17:00 Vitamin D (Vitamin D3) 5,000 unit DAILY PO Last administered on 02/12/19 12:24; Start 02/05/19 at 13:00 Cinacalcet (Sensipar) 60 mg DAILY PO Last administered on 02/12/19 12:25; Start 02/05/19 at 13:00 Darbepoetin David (Aranesp) 25 mcg Th SQ ; Start 02/12/19 at 21:00; Stop 02/12/19 at 21:00; Status DC Fluticasone Propionate (Flonase) 2 spray DAILY NS Last administered on 02/07/19 09:06; Start 02/06/19 at 09:00 Pantoprazole Sodium (Protonix) 40 mg DAILYAC PO Last administered on 02/12/19 12:26; Start 02/05/19 at 16:30 Polyethylene Glycol (miraLAX PACKET) 17 gm DAILY PO Last administered on 02/12/19 12:25; Start 02/05/19 at 13:00 Sennosides (Senna) 8.6 mg BID PO Last administered on 02/12/19 12:25; Start 02/05/19 at 11:45 Simvastatin (Zocor) 20 mg HS PO Last administered on 02/11/19 21:48; Start 02/05/19 at 21:00 Vitamin B Complex/ Vitamin C (Johanna-Celia) 1 tab DAILY PO Last administered on 02/12/19 12:23; Start 02/05/19 at 13:00 Fentanyl Citrate (Fentanyl 2ml Vial) 100 mcg STK-MED ONCE .ROUTE ; Start 02/05/19 at 11:11; Stop 02/05/19 at 11:12; Status DC Albuterol Sulfate (Ventolin Neb Soln) 2.5 mg PRN Q6HRS PRN NEB SHORTNESS OF BREATH; Start 02/05/19 at 11:45 Fentanyl Citrate (Fentanyl 2ml Vial) 100 mcg STK-MED ONCE .ROUTE ; Start 02/05/19 at 11:56; Stop 02/05/19 at 11:57; Status DC Darbepoetin David (Aranesp) 100 mcg 1X ONCE SQ Last administered on 02/05/19at 14:48; Start 02/05/19 at 13:00; Stop 02/05/19 at 13:12; Status DC Acetaminophen (Tylenol) 500 mg PRN Q6HRS PRN PO MILD PAIN / TEMP; Start 02/05/19 at 13:30 Zolpidem Tartrate (Ambien) 5 mg PRN QHS PRN PO INSOMNIA; Start 02/05/19 at 13:30 Insulin Human Lispro (HumaLOG) 0-9 UNITS TIDWMEALS SQ ; Start 02/05/19 at 17:00; Stop 02/06/19 at 03:37; Status DC Dextrose (Dextrose 50%-Water Syringe) 12.5 gm PRN Q15MIN PRN IV SEE COMMENTS; Start 02/05/19 at 13:45; Stop 02/06/19 at 03:36; Status DC Insulin Human Lispro (HumaLOG) 4 units 1X ONCE SQ Last administered on 02/05/19at 20:59; Start 02/05/19 at 21:00; Stop 02/05/19 at 21:01; Status DC Insulin Human Lispro (HumaLOG) 12 units 1X ONCE SQ Last administered on 02/06/19at 03:42; Start 02/06/19 at 04:00; Stop 02/06/19 at 04:01; Status DC Insulin Human Lispro (HumaLOG) 0-9 UNITS TIDWMEALS SQ Last administered on 02/12/19at 12:43; Start 02/06/19 at 08:00 Dextrose (Dextrose 50%-Water Syringe) 12.5 gm PRN Q15MIN PRN IV SEE COMMENTS; Start 02/06/19 at 03:30 Calcium Gluconate (Calcium Gluconate) 1,000 mg 1X ONCE IVP ; Start 02/06/19 at 07:15; Stop 02/06/19 at 07:16; Status DC Sodium Chloride 1,000 ml @ 1,000 mls/hr Q1H PRN IV hypotension; Start 02/06/19 at 07:34; Stop 02/06/19 at 13:33; Status DC Albumin Human 200 ml @ 200 mls/hr 1X PRN PRN IV Hypotension; Start 02/06/19 at 07:45; Stop 02/06/19 at 13:44; Status DC Sodium Chloride (Normal Saline Flush) 10 ml 1X PRN PRN IV AP catheter pack; Start 02/06/19 at 07:45; Stop 02/07/19 at 07:44; Status DC Sodium Chloride (Normal Saline Flush) 10 ml 1X PRN PRN IV [employer]OC[employer]AT[employer] catheter pack; Start 02/06/19 at 07:45; Stop 02/07/19 at 07:44; Status DC Sodium Chloride 1,000 ml @ 400 mls/hr Q2H30M PRN IV PATENCY; Start 02/06/19 at 07:34; Stop 02/06/19 at 19:33; Status DC Info (PHARMACY MONITORING -- do not chart) 1 each PRN DAILY PRN MC SEE COMMENT S; Start 02/06/19 at 07:45; Status UNV Info (PHARMACY MONITORING -- do not chart) 1 each PRN DAILY PRN MC SEE COMMENTS; Start 02/06/19 at 07:45; Status Cancel Darbepoetin David (Aranesp) 100 mcg Th SQ ; Start 02/12/19 at 21:00 Insulin Human Lispro (HumaLOG) 10 units 1X ONCE SQ ; Start 02/07/19 at 22:00; Stop 02/07/19 at 22:01; Status DC Insulin Human Lispro (HumaLOG) 3 units TIDWMEALS SQ Last administered on 02/12/19at 12:45; Start 02/09/19 at 08:30 Sodium Chloride 1,000 ml @ 1,000 mls/hr Q1H PRN IV hypotension; Start 02/09/19 at 09:14; Stop 02/09/19 at 15:13; Status DC Sodium Chloride 1,000 ml @ 400 mls/hr Q2H30M PRN IV PATENCY; Start 02/09/19 at 09:14; Stop 02/09/19 at 21:13; Status DC Info (PHARMACY MONITORING -- do not chart) 1 each PRN DAILY PRN MC SEE COMMENTS; Start 02/09/19 at 09:15; Status Cancel Info (PHARMACY MONITORING -- do not chart) 1 each PRN DAILY PRN MC SEE COMMENTS; Start 02/09/19 at 09:15; Status UNV Polyethylene Glycol (miraLAX PACKET) 17 gm DAILY PO Last administered on 9at 09:38; Start 02/10/19 at 09:00 Sodium Chloride 1,000 ml @ 1,000 mls/hr Q1H PRN IV hypotension; Start 02/11/19 at 12:04; Stop 02/11/19 at 18:03; Status DC Sodium Chloride 1,000 ml @ 400 mls/hr Q2H30M PRN IV PATENCY; Start 02/11/19 at 12:04; Stop 02/12/19 at 00:03; Status DC Info (PHARMACY MONITORING -- do not chart) 1 each PRN DAILY PRN MC SEE COMMENTS; Start 02/11/19 at 12:15; Status UNV Info (PHARMACY MONITORING -- do not chart) 1 each PRN DAILY PRN MC SEE COMMENTS; Start 02/11/19 at 12:15 Insulin Human Lispro (HumaLOG) 14 units 1X ONCE SQ Last administered on 02/11/19at 22:00; Start 02/11/19 at 21:45; Stop 02/11/19 at 21:46; Status DC Active Scripts Active Percocet 5-325 Mg Tablet (Oxycodone/Acetaminophen) 1 Each Tablet 1 Tab PO PRN Q6HRS PRN Ondansetron Odt (Ondansetron) 4 Mg Tab.rapdis 1 Tab PO PRN Q6-8HRS PRN Reported Protonix (Pantoprazole Sodium) 20 Mg Tablet.dr 2 Tab PO DAILY Flonase Allergy Relief (Fluticasone Propionate) 9.9 Ml [place].susp 2 Sprays NS DAILY Procrit (Epoetin David) 10,000 Unit/1 Ml Vial 10,000 Unit IJ QSU Tums (Calcium Carbonate) 200 Mg Tab.chew 200 Mg PO BID PRN Proair Respiclick (Albuterol Sulfate) 90 Mcg Aer.pow.ba 1-2 Puff IH PRN Q6HRS PRN Senna (Sennosides) 8.6 Mg Tablet 8.6 Mg PO BID Miralax (Polyethylene Glycol 3350) 17 Gm Powd.pack 1 Packet PO DAILY Colace (Docusate Sodium) 100 Mg Capsule 1 Cap PO BID Carvedilol 25 Mg Tablet 25 Mg PO BIDWMEALS Renvela (Sevelamer Carbonate) 800 Mg Tablet 5 Tab PO TIDWMEALS Furosemide 80 Mg Tablet 1 Tab PO BID Vitamin D (Cholecalciferol (Vitamin D3)) 5,000 Unit Tablet 5,000 Unit PO DAILY Calcitriol 0.25 Mcg Capsule 2 Cap PO DAILY Clonidine Hcl 0.2 Mg Tablet 1 Tab PO BID Johanna-Celia Rx Tablet (Vit B Cmplx 3/Fa/Vit C/Biotin) 1 Each Tablet 1 Each PO DAILY Sensipar (Cinacalcet Hcl) 60 Mg Tablet 60 Mg PO DAILY Amlodipine Besylate 10 Mg Tablet 10 Mg PO DAILY Simvastatin 20 Mg Tablet 20 Mg PO HS Lisinopril 40 Mg Tablet 1 Tab PO BID Novolog (Insulin Aspart) 100 Unit/1 Ml Vial 100 Unit SQ sliding scale Lantus Solostar (Insulin Glargine,Hum.rec.anlog) 100 Unit/1 Ml Insuln.pen 16 Unit SQ HS Vitals/I & O Vital Sign - Last 24 Hours 02/11/19 02/11/19 02/11/19 02/11/19 17:35 17:36 19:30 20:05 Temp 99.5 99.5 Pulse 83 89 Resp 16 B/P (MAP) 145/82 142/83 (102) Pulse Ox 91 O2 Delivery Room Air Room Air Room Air 02/11/19 02/11/19 02/11/19 02/12/19 21:48 21:49 23:09 03:37 Temp 99.0 97.4 99.0 97.4 Pulse 89 89 86 80 Resp 16 16 B/P (MAP) 142/83 142/83 155/88 (110) 139/86 (103) Pulse Ox 94 97 O2 Delivery Room Air Room Air 02/12/19 02/12/19 02/12/19 02/12/19 07:20 11:21 12:24 12:24 Temp 97.5 97.5 97.5 97.5 Pulse 69 71 71 71 Resp 17 18 B/P (MAP) 135/82 (99) 155/84 (107) 155/84 155/84 Pulse Ox 96 96 O2 Delivery Room Air Room Air 02/12/19 02/12/19 12:24 12:25 Pulse 71 71 B/P (MAP) 155/84 155/84 Intake and Output 02/11/19 02/11/19 02/12/19 14:59 22:59 06:59 Intake Total 200 ml 340 ml 400 ml Output Total 30 ml 30 ml Balance 200 ml 310 ml 370 ml SHALINI HOLT III DO February 12, 2019 13:49
[2019-02-12 15:36] VITALS: BP 139/86
[2019-02-12 17:41] VITALS: BP 139/86
[2019-02-12] MEDS ORDERED: DARBEPOETIN ALFA 25 MCG/0.42 ML DISP.SYRIN. SQ SCH (21:00)
[2019-02-12] MEDS ORDERED: DARBEPOETIN ALFA 100 MCG/0.5 ML DISP.SYRIN. SQ SCH (21:00)
--- NOTE | 2019-02-19 13:16 | PDOC3 ---
Discharge Summary Visit Information Date of Admission: Feb 05, 2019 Date of Discharge: February 12, 2019 Admitting Diagnosis: malfunctioning pd cath Final Diagnosis malfunctioning PD cath Brief Hospital Course Allergies Allergies Coded Allergies Type Severity Reaction Last Updated Verified Penicillins Adverse Reaction Mild Nausea 02/05/19 Yes Brief Hospital Course Mr. Jacques is a 39 old male who underwent PD catheter removal. His dialysis was managed, his bowel function returned. At discharge was tolerating diet and pain managed. Home with drain and Fu in clinic next week Discharge Information Condition at Discharge: Stable Follow Up: Weeks (1) Disposition/Orders: D/C to Home Scheduled Amlodipine Besylate (Amlodipine Besylate) 10 Mg Tablet, 10 MG PO DAILY, (Reported) Entered as Reported by: David Alba on 12/21/171113 Last Taken: Unknown Dose on 02/05/19699 Last Action: Continued on 02/05/191038 by PONCHO STRANGE Calcitriol (Calcitriol) 0.25 Mcg Capsule, 2 CAP PO DAILY for low calcium, #30 Ref 5 (Reported) Entered as Reported by: David Alba on 12/21/171113 Last Action: Converted on 02/05/191038 by PONCHO STRANGE Carvedilol (Carvedilol) 25 Mg Tablet, 25 MG PO BIDWMEALS for CARDIAC, (Reported) Entered as Reported by: HILARY MIX on 11/24/18 1242 Last Taken: Unknown Dose on 02/05/19 07 Last Action: Converted on 02/05/191038 by PONCHO STRANGE Cholecalciferol (Vitamin D3) (Vitamin D) 5,000 Unit Tablet, 5,000 UNIT PO DAILY, (Reported) Entered as Reported by: David Alba on 12/21/171113 Last Action: Converted on 02/05/191038 by PONCHO STRANGE Cinacalcet Hcl (Sensipar) 60 Mg Tablet, 60 MG PO DAILY, (Reported) Entered as Reported by: David Alba on 12/21/171113 Last Action: Converted on 02/05/191038 by PONCHO STRANGE Clonidine Hcl (Clonidine Hcl) 0.2 Mg Tablet, 1 TAB PO BID, #60 Ref 5 (Reported) Entered as Reported by: David Alba on 12/21/171113 Last Taken: Unknown Dose on 02/05/19 0700 Last Action: Continued on 02/05/191038 by PONCHO STRANGE Docusate Sodium (Colace) 100 Mg Capsule, 1 CAP PO BID for constipation, #30 (Reported) Entered as Reported by: HILARY MIX on 11/24/181248 Last Action: Continued on 02/05/191038 by PONCHO STRANGE Epoetin David (Procrit) 10,000 Unit/1 Ml Vial, 10,000 UNIT IJ QSU for anemia, (Reported) Entered as Reported by: ASHLEY ROWELL on 11/30/1823 Last Action: Converted on 02/05/191038 by PONCHO STRANGE Fluticasone Propionate (Flonase Allergy Relief) 9.9 Ml [place].susp, 2 SPRAYS NS DAILY for allergies, (Reported) Entered as Reported by: ASHLEY ROWELL on 11/30/1823 Last Action: Converted on 02/05/191038 by PONCHO STRANGE Furosemide (Furosemide) 80 Mg Tablet, 1 TAB PO BID, #180 Ref 3 (Reported) Entered as Reported by: David Alba on 12/21/17 111 Last Action: Continued on 02/05/191038 by [facility] Insulin Glargine,Hum.rec.anlog (Lantus Solostar) 100 Unit/1 Ml Insuln.pen, 16 UNIT SQ HS for hyperglycemia, (Reported) Entered as Reported by: SUKH HERNÁNDEZ on 04/15/17 1604 Last Action: Continued on 02/05/191038 by [facility] Lisinopril (Lisinopril) 40 Mg Tablet, 1 TAB PO BID, #30 Ref 5 (Reported) Entered as Reported by: David Alba on 12/21/174 Last Action: Continued on 02/05/191038 by [facility] Pantoprazole Sodium (Protonix) 20 Mg Tablet.dr, 2 TAB PO DAILY for GERD, #30 (Reported) Entered as Reported by: ASHLEY ROWELL on 11/30/1823 Last Action: Converted on 02/05/191038 by [facility] Polyethylene Glycol 3350 (Miralax) 17 Gm Powd.pack, 1 PACKET PO DAILY for constipation, #30 Ref 3 (Reported) Entered as Reported by: HILARY MIX on 11/24/181248 Last Action: Converted on 02/05/191038 by [facility] Sennosides (Senna) 8.6 Mg Tablet, 8.6 MG PO BID for constipation, (Reported) Entered as Reported by: HILARY MIX on 11/24/18 1249 Last Action: Converted on 02/05/191038 by [facility] Sevelamer Carbonate (Renvela) 800 Mg Tablet, 5 TAB PO TIDWMEALS, #810 Ref 3 (Reported) Entered as Reported by: David Alba on 12/21/17 1142 Last Action: Continued on 02/05/191038 by [facility] Simvastatin (Simvastatin) 20 Mg Tablet, 20 MG PO HS for FOR CHOLESTEROL, #30 Ref 0 (Reported) Entered as Reported by: David Alba on 12/21/171113 Last Action: Converted on 02/05/191038 by [facility] Vit B Cmplx 3/Fa/Vit C/Biotin (Johanna-Celia Rx Tablet) 1 Each Tablet, 1 EACH PO DAILY, (Reported) Entered as Reported by: David Alba on 12/21/171113 Last Action: Converted on 02/05/191038 by [facility] Scheduled PRN Albuterol Sulfate (Proair Respiclick) 90 Mcg Aer.pow.ba, 1-2 PUFF IH PRN Q6HRS PRN for SHORTNESS OF BREATH, (Reported) Entered as Reported by: ASHLEY ROWELL on 11/30/18 0024 Last Action: Converted on 02/05/191038 by [facility] Calcium Carbonate (Tums) 200 Mg Tab.chew, 200 MG PO BID PRN for INDIGESTION, (Reported) Entered as Reported by: ASHLEY ROWELL on 11/30/18 0024 Last Action: Continued on 02/05/191038 by [facility] Ondansetron (Ondansetron Odt) 4 Mg Tab.rapdis, 1 TAB PO PRN Q6-8HRS PRN for NAUSEA, #16 Prescribed by: ORQUIDEA TENORIO D.O. on 12/14/18 0507 Last Action: HELD on 02/05/191038 by [facility] Oxycodone/Apap 5-325 (Percocet 5-325 Mg Tablet ) 1 Each Tablet, 1 TAB PO PRN Q6HRS PRN for PAIN, #8 Ref 0 Prescribed by: ORQUIDEA TENORIO D.O. on 12/14/18 0509 Last Action: HELD on 02/05/19 1039 by [facility] Miscellaneous Medications Insulin Aspart (Novolog) 100 Unit/1 Ml Vial, 100 UNIT SQ, (Reported) sliding scale Entered as Reported by: SUKH HERNÁNDEZ on 04/15/17 1604 Last Action: Reviewed on 02/04/19 1438 by MASON [employer] February 19, 2019 13:16
== END 2019-02-12 19:30 | disposition home or self-care (01) | DRG 907 ==
LOC: SURG 06:45 → 4 NORTH 11:11 → 6 SOUTH 02-06 07:58
PROVIDERS: ADMIT Surgery; ATTEND Surgery
PROC: 0WPG03Z Removal of Infusion Device from Peritoneal Cavity, Open Approach (ICD-10-PCS; 2019-02-05)
PROC: 0DNU0ZZ Release Omentum, Open Approach (ICD-10-PCS; 2019-02-05)
PROC: 0WJG4ZZ Inspection of Peritoneal Cavity, Percutaneous Endoscopic Approach (ICD-10-PCS; principal; 2019-02-05 08:00)
PROC: 5A1D70Z Performance of Urinary Filtration, Intermittent, Less than 6 Hours Per Day (ICD-10-PCS; 2019-02-06)
PROC: 5A09357 Assistance with Respiratory Ventilation, Less than 24 Consecutive Hours, Continuous Positive Airway Pressure (ICD-10-PCS; 2019-02-07)
PROC: 30233N1 Transfusion of Nonautologous Red Blood Cells into Peripheral Vein, Percutaneous Approach (ICD-10-PCS; 2019-02-09)
PROC: 5A09357 Assistance with Respiratory Ventilation, Less than 24 Consecutive Hours, Continuous Positive Airway Pressure (ICD-10-PCS; 2019-02-09)
PROC: 5A1D70Z Performance of Urinary Filtration, Intermittent, Less than 6 Hours Per Day (ICD-10-PCS; 2019-02-09)
PROC: 5A09357 Assistance with Respiratory Ventilation, Less than 24 Consecutive Hours, Continuous Positive Airway Pressure (ICD-10-PCS; 2019-02-10)
PROC: 5A1D70Z Performance of Urinary Filtration, Intermittent, Less than 6 Hours Per Day (ICD-10-PCS; 2019-02-11)
DX: T85.611A Breakdown (mechanical) of intraperitoneal dialysis catheter, initial encounter (principal); N18.6 End stage renal disease; I12.0 Hypertensive chronic kidney disease with stage 5 chronic kidney disease or end stage renal disease; E87.1 Hypo-osmolality and hyponatremia; E10.22 Type 1 diabetes mellitus with diabetic chronic kidney disease; E87.5 Hyperkalemia; D63.1 Anemia in chronic kidney disease; K66.0 Peritoneal adhesions (postprocedural) (postinfection); E21.3 Hyperparathyroidism, unspecified; Y81.2 Prosthetic and other implants, materials and accessory general- and plastic-surgery devices associated with adverse incidents; Z53.31 Laparoscopic surgical procedure converted to open procedure; Z79.4 Long term (current) use of insulin; Z99.2 Dependence on renal dialysis; Z80.42 Family history of malignant neoplasm of prostate; Z82.49 Family history of ischemic heart disease and other diseases of the circulatory system; I25.2 Old myocardial infarction
CPT/HCPCS: 36415; 74018; 80048; 80069; 82040; 82962; 85025; 85027; 86850; 86900; 86901; 86920; 94760; A7015; C1769; J0881; J1100; J1170; J1644; J1815; J1956; J2001; J2405; J2704; J2710; J3010; J3490; J7030; J7040; P9016; Q0163; 97110

== ENCOUNTER 2019-02-26 14:29 | Emergency (ER) | payer MEDICARE, OTHER ==
[~2019-02-26] VITALS: Ht 177.8 cm; Wt 72.6 kg
[~2019-02-26 14:29] MED LIST changes: -BUPIVAC MPF-EPI 0.5%-1:200000 30 ML VIAL. ONE; -HEPARIN SODIUM 5,000 UNIT in IV NORMAL SALINE 500ML BAG 500 ML IRR ONE
[2019-02-26 15:06] VITALS: BP 137/88
[2019-02-26 15:52] LABS: BASO # 0.1 x10^3/uL (0.0-0.2); BASO % 1 % (0-3); EOS # 0.6 x10^3/uL (0.0-0.7); EOS % 7 % (0-3); HEMOGLOBIN 7.7 g/dL (13.0-17.5); LYMPH # 0.9 x10^3/uL (1.0-4.8); LYMPH % 11 % (24-48); MEAN CORPUSCULAR HEMOGLOBIN 29 pg (25-35); MEAN CORPUSCULAR HGB CONC 33 g/dL (31-37); MEAN CORPUSCULAR VOLUME 86 fL (79-100); MONO # 0.7 x10^3/uL (0.0-1.1); MONO % 8 % (0-9); NEUT # 6.1 x10^3uL (1.8-7.7); NEUT % 73 % (31-73); PLATELET COUNT 386 x10^3/uL (140-400); RED BLOOD COUNT 2.68 x10^6/uL (4.30-5.70); RED CELL DISTRIBUTION WIDTH 17.5 % (11.5-14.5); WHITE BLOOD COUNT 8.5 x10^3/uL (4.0-11.0)
[2019-02-26 16:00] LABS: CREATININE 8.5 mg/dL (0.7-1.3); GFR 8.6; POTASSIUM 4.5 mmol/L (3.5-5.1)
[2019-02-26 16:06] LABS: ALBUMIN 3.5 g/dL (3.4-5.0); ALBUMIN/GLOBULIN RATIO 0.7 (1.0-1.7); TOTAL BILIRUBIN 0.4 mg/dL (0.2-1.0); TOTAL PROTEIN 8.2 g/dL (6.4-8.2)
--- NOTE | 2019-02-26 16:14 | PHYS DOC ---
Past Medical History Past Medical History: Anemia, Diabetes-Type II, Hypertension, Renal Failure Additional Past Medical Histor: HEMODIALYSIS SINCE 2012; Peritoneal dialysis (ORQUIDEA BARRAZA APRN) Past Surgical History: Other Additional Past Surgical Histo: CARPAL TUNNEL (ORQUIDEA BARRAZA APRN) Additional Information: non smoker Alcohol Use: None Drug Use: None (ORQUIDEA BARRAZA APRN) Adult General Chief Complaint Chief Complaint: ABNORMAL LABS HPI HPI Patient is a 39 year old male who presents after being told by the dialysis nurse that his hemoglobin was 6.7 when drawn yesterday. Gets dialysis on Mondays, Wednesdays, and Fridays. States that he has been having chest pain on and off for a week. Denies any current pain which is rates 0/10. Recently had a surgery a month ago to take peritoneal dialysis out. Most recent labs in our system were taken on 02/12 and was 7.2 hemoglobin. (ORQUIDEA BARRAZA APRN) Review of Systems Review of Systems Constitutional: Denies fever or chills [] Eyes: Denies change in visual acuity, redness, or eye pain [] HENT: Denies nasal congestion or sore throat [] Respiratory: Denies cough or shortness of breath [] Cardiovascular: Reports chest pain, denies syncope. GI: Denies abdominal pain, nausea, vomiting, bloody stools or diarrhea [] : Denies dysuria or hematuria [] Musculoskeletal: Denies back pain or joint pain [] Integument: Denies rash or skin lesions [] Neurologic: Reports headache, focal weakness or sensory changes [] Endocrine: Denies polyuria or polydipsia [] Complete systems were reviewed and found to be within normal limits, except as documented in this note. (ORQUIDEA BARRAZA APRN) Allergies Allergies Allergies Coded Allergies Type Severity Reaction Last Updated Verified Penicillins Adverse Reaction Mild Nausea 02/05/19 Yes (ORQUIDEA TENORIO DO) Physical Exam Physical Exam Constitutional: Well developed, well nourished, no acute distress, non-toxic appearance. [] HENT: Normocephalic, atraumatic, bilateral external ears normal, oropharynx moist, no oral exudates, nose normal. [] Eyes: PERRLA, EOMI, conjunctiva normal, no discharge. [] Neck: Normal range of motion, no tenderness, supple, no stridor. [] Cardiovascular:Heart rate regular rhythm, no murmur [] Lungs & Thorax: Bilateral breath sounds clear to auscultation [] Abdomen: Bowel sounds normal, soft, periumbilical tenderness near surgical site no exudate or erythema, no masses, no pulsatile masses. [] Skin: Warm, dry, no erythema, no rash. [] Back: No tenderness, no CVA tenderness. [] Extremities: No tenderness, no cyanosis, no clubbing, ROM intact, no edema. [] Neurologic: Alert and oriented X 3, normal motor function, normal sensory fun ction, no focal deficits noted. [] Psychologic: Affect normal, judgement normal, mood normal. [] (ORQUIDEA BARRAZA APRN) Current Patient Data Vital Signs Vital Signs Date Time Temp Pulse Resp B/P (MAP) Pulse Ox O2 Delivery O2 Flow Rate FiO2 02/26/19 15:06 98.5 88 18 137/88 (104) 95 Room Air 98.5 (TENORIO,ORQUIDEA R DO) Lab Values Laboratory Tests Test 02/26/19 15:20 White Blood Count 8.5 x10^3/uL (4.0-11.0) Red Blood Count 2.68 x10^6/uL (4.30-5.70) L Hemoglobin 7.7 g/dL (13.0-17.5) L Hematocrit 23.0 % (39.0-53.0) L Mean Corpuscular Volume 86 fL (79-100) Mean Corpuscular Hemoglobin 29 pg (25-35) Mean Corpuscular Hemoglobin Concent 33 g/dL (31-37) Red Cell Distribution Width 17.5 % (11.5-14.5) H Platelet Count 386 x10^3/uL (140-400) Neutrophils (%) (Auto) 73 % (31-73) Lymphocytes (%) (Auto) 11 % (24-48) L Monocytes (%) (Auto) 8 % (0-9) Eosinophils (%) (Auto) 7 % (0-3) H Basophils (%) (Auto) 1 % (0-3) Neutrophils # (Auto) 6.1 x10^3uL (1.8-7.7) Lymphocytes # (Auto) 0.9 x10^3/uL (1.0-4.8) L Monocytes # (Auto) 0.7 x10^3/uL (0.0-1.1) Eosinophils # (Auto) 0.6 x10^3/uL (0.0-0.7) Basophils # (Auto) 0.1 x10^3/uL (0.0-0.2) Prothrombin Time 14.0 SEC (11.7-14.0) Prothrombin Time INR 1.1 (0.8-1.1) PTT 32 SEC (24-38) Sodium Level 141 mmol/L (136-145) Potassium Level 4.5 mmol/L (3.5-5.1) Chloride Level 98 mmol/L (98-107) Carbon Dioxide Level 30 mmol/L (21-32) Anion Gap 13 (6-14) Blood Urea Nitrogen 49 mg/dL (8-26) H Creatinine 8.5 mg/dL (0.7-1.3) H Estimated GFR (Cockcroft-Gault) 8.6 BUN/Creatinine Ratio 6 (6-20) Glucose Level 121 mg/dL (70-99) H Calcium Level 9.0 mg/dL (8.5-10.1) Total Bilirubin 0.4 mg/dL (0.2-1.0) Aspartate Amino Transferase (AST) 19 U/L (15-37) Alanine Aminotransferase (ALT) 31 U/L (16-63) Alkaline Phosphatase 152 U/L (46-116) H Troponin I Quantitative < 0.017 ng/mL (0.000-0.055) Total Protein 8.2 g/dL (6.4-8.2) Albumin 3.5 g/dL (3.4-5.0) Albumin/Globulin Ratio 0.7 (1.0-1.7) L Laboratory Tests 02/26/19 15:20 Laboratory Tests 02/26/19 15:20 (ORQUIDEA TENORIO DO) EKG EKG EKG interpreted by Sinus rhythm with rate of 75. No STEMI.[] (ORQUIDEA BARRAZA APRN) Radiology/Procedures Radiology/Procedures []PATIENT: WILFRED STEVENSACCOUNT: [id number]#: [id number] : 1980 LOCATION: ER AGE: 39 SEX: M EXAM STATUS: REG ER ORD. PHYSICIAN: ORQUIDEA BARRAZA APRN REASON: cp,pt states low hemaglobin, had dialysis yesterday. PROCEDURE: CHEST PA & LATERAL Chest, PA and Lateral: Technique: PA and lateral views of the chest were obtained. History: Chest pain. Comparison: 12/15/2018. Findings: The heart size appearS within normal limits. Minimal prominent bilateral interstitial lung markings.. The pleural margins are clear. Right-sided dialysis catheter is unchanged. Impression: Minimal prominent bilateral interstitial lung markings could be minimal congestive changes.. Electronically signed by: Mil Worley MD (02/26/2019 4:32 PM) [id number] (ORQUIDEA BARRAZA APRN) Course & Med Decision Making Course & Med Decision Making Pertinent Labs and Imaging studies reviewed. (See chart for details) Will do chest pain workup and get labs and evaluate based off of this. Patient is agreeable. Hemoglobin is 7.7 which is improved from last visit. Will d/c home to follow up with turbo electric operator. Imaging and rest of labs are negative. Patient is agreeable. Talked to Dr. Perez with nephrology who agrees with plan. (ORQUIDEA BARRAZA APRN) Dragon Disclaimer Dragon Disclaimer This electronic medical record was generated, in whole or in part, using a voice recognition dictation system. (ORQUIDEA BARRAZA APRN) Departure Departure Impression: Primary Impression: Anemia Disposition: HOME, SELF-CARE Condition: STABLE Referrals: NO PCP (PCP) Patient Instructions: Anemia, FAQs Additional Instructions: Follow up with primary care doctor and turbo electric operator tomorrow. Come back to ER as needed. Attending Signature Attending Signature I have reviewed the PA/ACOUSTICAL ENGINEER's note and plan of care. I was available for consultation as needed during the patient's visit in the emergency department. I agree with the clinical impression, plan, and disposition. (ORQUIDEA TENORIO DO) Problem Qualifiers Primary Impression: Anemia Anemia type: unspecified type Qualified Codes: D64.9 - Anemia, unspecified ORQUIDEA BARRAZA APRN February 26, 2019 16:14 ORQUIDEA TENORIO DO February 27, 2019 10:47
--- NOTE | 2019-02-26 16:30 | EKG ---
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
--- NOTE | 2019-02-26 16:34 | RAD ---
Chest, PA and Lateral: Technique: PA and lateral views of the chest were obtained. History: Chest pain. Comparison: 12/15/2018. Findings: The heart size appearS within normal limits. Minimal prominent bilateral interstitial lung markings.. The pleural margins are clear. Right-sided dialysis catheter is unchanged. Impression: Minimal prominent bilateral interstitial lung markings could be minimal congestive changes.. Electronically signed by: Mil Worley MD (02/26/2019 4:32 PM) [id number]
== END 2019-02-26 17:30 | disposition home or self-care (01) ==
LOC: ER 14:29
DX: D64.9 Anemia, unspecified (principal); R07.89 Other chest pain; R51 Headache; I12.9 Hypertensive chronic kidney disease with stage 1 through stage 4 chronic kidney disease, or unspecified chronic kidney disease; E11.22 Type 2 diabetes mellitus with diabetic chronic kidney disease; N18.9 Chronic kidney disease, unspecified; Z99.2 Dependence on renal dialysis; Z88.0 Allergy status to penicillin
CPT/HCPCS: 36415; 71046; 80053; 84484; 85025; 85610; 85730; 93005; 99285-25

== ENCOUNTER → 2020-04-28 | Outpatient (CLI) | payer MEDICARE, OTHER ==
[2019-05-14 15:00] VITALS: BP 119/84
[~2020-04-28] MED LIST changes: +ATOR10TA60 PO; +CINA90TA PO; +SENN-182 PO; -SENN-80 PO; +SIMV20TA18 PO; -SIMV20TA3 PO; +auryxia PO
== END | disposition home or self-care (01) ==
LOC: LAB 13:51
PROVIDERS: ATTEND Surgery
DX: Z01.818 Encounter for other preprocedural examination (principal); Z11.59 Encounter for screening for other viral diseases; N25.81 Secondary hyperparathyroidism of renal origin
CPT/HCPCS: U0003-CS

== ENCOUNTER → 2020-04-29 | Outpatient (CLI) | payer MEDICARE, OTHER ==
[2019-05-14 15:00] VITALS: BP 119/84
[~2020-04-29] MED LIST changes: +CALC-56 PO
--- NOTE | 2020-04-29 14:45 | RAD ---
EXAM: ULTRASOUND THYROID CLINICAL HISTORY: Secondary hyperparathyroidism COMPARISON: None available. TECHNIQUE: Ultrasound examination of the thyroid gland was performed FINDINGS: The right thyroid lobe measures 4.4 x 1.7 x 1.4. The left thyroid lobe 4.3 x 1.8 x 1.6. The thyroid isthmus measures 7 mm in AP dimension. A 1.5 x 1.1 x 1.5 cm solid mixed hyper and hypoechoic nodule is seen in the lower pole the left thyroid with equivocal punctate echogenic foci, possibly punctate calcifications. A 1.3 x 0.6 cm nodule is also seen within the isthmus hypoechoic, solid and somewhat ill-defined and morphology. There is no regional cervical lymphadenopathy. IMPRESSION: 1. Left lower pole thyroid nodule measures 1.5 cm. This is a TI-RADS 4 nodule and FNA is recommended given size. 2. Isthmus nodule measures up to 1.3 cm, also TI-RADS 4, follow-up ultrasound in one year is recommended. Electronically signed by: Fortunato Sánchez MD (04/29/2020 2:42 PM) [id number]
== END | disposition home or self-care (01) ==
LOC: US 13:06
PROVIDERS: ATTEND Surgery
DX: N25.81 Secondary hyperparathyroidism of renal origin (principal)
CPT/HCPCS: 76536

== ENCOUNTER 2020-05-02 06:19 | Inpatient (IN) | payer MEDICARE, OTHER ==
[~2020-05-02] VITALS: Ht 177.8 cm; Wt 93.7 kg
[~2020-05-02 06:19] MED LIST changes: -CALC-56 PO
[2020-05-02] MEDS ORDERED: HYDROmorphone 2 MG/ML VIAL IV PRN ×2 (07:00→10:45)
[2020-05-02] MEDS ORDERED: PROCHLORPERAZINE 10 MG/2 ML VIAL. IV PRN (07:00)
[2020-05-02] MEDS ORDERED: fentaNYL PF VIAL 100 MCG/2 ML VIAL IV PRN (07:00)
[2020-05-02] MEDS ORDERED: MORPHINE SULFATE 2 MG/ML VIAL. IV PRN (07:00)
[2020-05-02] MEDS ORDERED: ONDANSETRON PF 4 MG/2 ML VIAL. IV PRN (07:00)
[2020-05-02] MEDS ORDERED: LIDOCAINE 1% PF 2 ML VIAL. ID PRN (07:00)
[2020-05-02] MEDS ORDERED: IV RINGERS,LACTATED 1000ML 1,000 ML IV SCH (07:00)
[2020-05-02] MEDS ORDERED: IV NORMAL SALINE 1000ML BAG 1,000 ML IV SCH (07:15)
[2020-05-02] MEDS: INSULIN LISPRO 100 UNIT/ML 3ML VIAL for OP,RR ONLY. SQ PRN ×3 (07:23→16:21)
[2020-05-02] MEDS ORDERED: LIDOCAINE 1% PF 5 ML VIAL. ONE (07:32)
[2020-05-02] MEDS ORDERED: MIDAZOLAM HCL/PF 2 MG/2 ML VIAL. ONE (07:32)
[2020-05-02] MEDS ORDERED: fentaNYL PF VIAL 250 MCG/5 ML VIAL ONE (07:32)
[2020-05-02] MEDS ORDERED: PROPOFOL 10 MG/ML (20ML) VIAL. IV ONE (07:32)
[2020-05-02] MEDS ORDERED: SUCCINYLCHOLINE 200 MG/10 ML VIAL. ONE (07:33)
[2020-05-02] MEDS ORDERED: DEXAMETHASONE SOD PHOS 4 MG/ML VIAL ONE ×2 (07:36→08:11)
[2020-05-02] MEDS ORDERED: ONDANSETRON PF 4 MG/2 ML VIAL. ONE (07:36)
[2020-05-02] MEDS ORDERED: SEVOFLURANE 61 TO 120 MINUTES. IH ONE (07:52)
[2020-05-02] MEDS ORDERED: DESFLURANE 61 TO 120 MINUTES IH ONE (07:52)
[2020-05-02] MEDS ORDERED: ROCURONIUM 50 MG/5 ML VIAL. ONE (07:56)
[2020-05-02] MEDS ORDERED: ceFAZolin 2GM PREMIX 2 GM/50 ML BAG IV ONE (08:00)
[2020-05-02] MEDS ORDERED: PHENYLEPHRINE in 0.9% NACL PF 1 MG/10 ML SYRINGE. IV ONE (08:11)
[2020-05-02] MEDS ORDERED: ePHEDrine PF IN SALINE 50 MG/10 ML SYRINGE. IV ONE (08:11)
[2020-05-02] MEDS ORDERED: PHENYLEPHRINE 10 MG/ML VIAL. ONE (08:12)
[2020-05-02] MEDS: IV NORMAL SALINE 1000ML BAG 1,000 ML IV SCH (10:36)
[2020-05-02] MEDS: IV 1/2 NORMAL SALINE 1,000 ML IV SCH (10:36)
[2020-05-02] MEDS ORDERED: NALOXONE 0.4 MG/ML VIAL. IV PRN (10:45)
[2020-05-02] MEDS ORDERED: 0.9 % SODIUM CHLORIDE 10 ML DISP.SYRIN. IV PRN (10:45)
--- NOTE | 2020-05-02 10:57 | PDOC4 ---
Operative Note Operative Note Operative Note: Preoperative Diagnosis: Secondary hyperparathyroidism, left thyroid nodule Postoperative Diagnosis: Same Procedure: Subtotal parathyroidectomy, excision of left thyroid nodule Surgeon: [employer] Consultant: Sukhjinder Randhawa Anesthesia: General EBL: 50 mL Specimen: Left inferior/superior parathyroid glands to pathology, right superior parathyroid gland/right inferior sub-total parathyroid gland to pathology, left inferior thyroid nodule to pathology Drains: None Complications: None Indication: The patient is a 40-year-old male who was referred with secondary hyperparathyroidism. He was offered surgical treatment with a subtotal parathyroidectomy. The details and risks of surgery were discussed with the patient. The risks include bleeding, infection, recurrent laryngeal nerve i njury, hypoparathyroidism, recurrent hyper parathyroidism, anesthetic risk, potential need for additional surgery procedure. He understands and would like to proceed. In addition a preoperative ultrasound noted a left thyroid nodule for which a fine-needle aspirate was recommended. We plan to evaluate the nodule intraoperatively with consideration of excision. He is aware of this and is agreeable to proceed. Description: The patient was taken to the operating room and placed supine on the operating table. General anesthesia was performed. The neck was then extended and the Nims device was set up. The anterior neck was prepped with ChloraPrep and draped in a standard surgical manner. A curved neck incision was made two fingerbreadths above the sternal notch. Cautery dissection was carried down through the platysma. Subplatysmal flaps were developed superiorly and inferiorly. The strap muscle fascia was divided in the midline. We began exploring the left thyroid and the lobe was mobilized away from the strap muscle fascia. Along the lateral inferior aspect we identified a glandular structure consistent with a hyperplastic parathyroid gland. A similar hyperplastic gland was identified along the superior lateral aspect. Wedge biopsies of both were sent to pathology for confirmation. In the meantime the right thyroid lobe was similarly mobilized from the strap muscle fascia. We were able to identify the right inferior and superior parathyroid hyperplastic glands. Both were mobilized and wedge biopsies of each were taken for confirmation as well. Frozen section of all 4 glands confirmed hyperplastic parathyroid tissue. We then proceeded with the subtotal parathyroidectomy. The left superior and inferior glands were fully excised and the vascular pedicles were ligated with 3-0 Vicryl. The right superior parathyroid gland was similarly excised in its entirety and the vascular pedicle was ligated. The inferior gland was mobilized down to its vascular pedicle which was preserved. A subtotal resection of the right inferior gland was performed leaving a remnant approximately the size of a normal gland. This was also sent to pathology. A 4-0 Prolene suture was placed in the inferior right thyroid lobe adjacent to the location of the remaining gland remnant. The remnant lies just lateral to the suture. We then returned to the left thyroid lobe. The nodule identified on the ultrasound was palpated in the inferior aspect. With the harmonic scalpel this was mobilized from the surrounding thyroid tissue and fully excised. This was sent to pathology and frozen section noted a follicular lesion with no evidence of papillary carc inoma. Hemostasis was good and we elected to conclude the case. The strap muscle fascia was closed with 3-0 Vicryl. The platysma was also closed with 3-0 Vicryl. The skin was closed with 4-0 Monocryl and a sterile dressing was applied. The patient tolerated the procedure well and was sent to the recovery room in stable condition. At the end of the case all counts were correct. HONG ROGER MD May 02, 2020 10:57
[2020-05-02] MEDS ORDERED: fentaNYL PF VIAL 100 MCG/2 ML VIAL ONE ×2 (11:46→12:17)
[2020-05-02] MEDS: fentaNYL PF VIAL 100 MCG/2 ML VIAL IV PRN ×4 (11:50→13:27)
[2020-05-02] MEDS ORDERED: PANTOPRAZOLE 40 MG TABLET.DR. PO ONE (15:15)
[2020-05-02] MEDS: oxyCODONE/APAP 5/325 1 TAB TABLET PO PRN (15:20)
--- NOTE | 2020-05-02 15:42 | PDOC2 ---
CONSULT Date of Consult Date of Consult DATE: 05/02/20 TIME: 15:39 Reason for Consult Reason for Consult: Medical management Referring Physician Referring Physician: Dr. Supa Villanueva Identification/Chief Complaint Chief Complaint Sore throat Source Source: Patient History of Present Illness Reason for Visit: Mr Villa is a 40 yo M w/ PMHx HTN, HLD, GALINDO on CPAP, DM2 on insulin, ESRD on HD (previously on PD), anemia of chronic renal insufficiency, and recent diagnosis of secondary hyperparathyroidism who is admitted today for post-operative management and calcium monitoring after symptomatic hypeparathyroidism with a left inferior/superior, right superior and right inferior sub-total parathyroidectomy and left inferior thyroid nodule resection. Glucose 408 and has as sore throat post-operatively. His is bedside. He is in good spirits, talking about going fishing with his 4 boys. VS stable. Seen in PACU. Past Medical History Cardiovascular: HTN, Hyperlipidemia Pulmonary: Other CENTRAL NERVOUS SYSTEM: Carpal Tunnel Syndrome, Periperal neuropathy GI: No pertinent hx Heme/Onc: Anemia NOS Hepatobiliary: No pertinent hx Psych: No pertinent hx Musculoskeletal: Other Rheumatologic: No pertinent hx Infectious disease: No pertinent hx Renal/: Chronic renal failure Endocrine: Diabetes, Hyperparathyroidism Past Surgical History Past Surgical History: Hernia Repair, Other Family History Family History: Coronary Artery Disease, Other Social History No ALCOHOL: none Drugs: None Lives: with Family Domestic Violence: Neg Current Medications Current Medications Current Medications Ondansetron HCl (Zofran) 4 mg PRN Q6HRS PRN IV NAUSEA/VOMITING; Start 05/02/20 at 07:00; Stop 05/03/20 at 06:59 Fentanyl Citrate (Fentanyl 2ml Vial) 25 mcg PRN Q5MIN PRN IV MILD PAIN 1-3; Start 05/02/20 at 07:00; Stop 05/03/20 at 06:59 Fentanyl Citrate (Fentanyl 2ml Vial) 50 mcg PRN Q5MIN PRN IV MODERATE TO SEVERE PAIN Last administered on 05/02/20at 13:27; Start 05/02/20 at 07:00; Stop 05/03/20 at 06:59 Morphine Sulfate (Morphine Sulfate) 1 mg PRN Q10MIN PRN IV SEVERE PAIN 7-10; Start 05/02/20 at 07:00; Stop 05/03/20 at 06:59 Ringer's Solution 1,000 ml @ 30 mls/hr Q24H IV ; Start 05/02/20 at 07:00; Stop 05/02/20 at 18:59 Lidocaine HCl (Xylocaine-Mpf 1% 2ml Vial) 2 ml PRN 1X PRN ID PRIOR TO IV START; Start 05/02/20 at 07:00; Stop 05/03/20 at 06:59 Hydromorphone HCl (Dilaudid) 0.5 mg PRN Q10MIN PRN IV SEV PAIN, Second choice; Start 05/02/20 at 07:00; Stop 05/03/20 at 06:59 Prochlorperazine Edisylate (Compazine) 5 mg PACU PRN PRN IV NAUSEA, MRX1; Start 05/02/20 at 07:00; Stop 05/03/20 at 06:59 Cefazolin Sodium/ Dextrose 50 ml @ 100 mls/hr 1X PREOP PRN IV PRIOR TO PROCEDURE Last administered on 05/02/20at 07:40; Start 05/02/20 at 08:00; Stop 05/02/20 at 18:00 Insulin Human Lispro (HumaLOG VIAL for OP,RR ONLY) 0-10 units PRN Q1HR PRN SQ PER PROTOCOL Last administered on 05/02/20at 14:49; Start 05/02/20 at 07:15; Stop 05/03/20 at 07:14 Sodium Chloride 1,000 ml @ 0 mls/hr Q0M IV Last administered on 05/02/20at 07:24; Start 05/02/20 at 07:15 Propofol (Diprivan) 200 mg STK-MED ONCE IV ; Start 05/02/20 at 07:32; Stop 05/02/20 at 07:32; Status DC Lidocaine HCl (Xylocaine-Mpf 1% 5ml Vial) 5 ml STK-MED ONCE .ROUTE ; Start 05/02 at 07:32; Stop 05/02/20 at 07:32; Status DC Midazolam HCl (Versed) 2 mg STK-MED ONCE .ROUTE ; Start 05/02/20 at 07:32; Stop 05/02/20 at 07:33; Status DC Fentanyl Citrate (Fentanyl 5ml Vial) 250 mcg STK-MED ONCE .ROUTE ; Start 05/02/20 at 07:32; Stop 05/02/20 at 07:33; Status DC Succinylcholine Chloride (Anectine) 200 mg STK-MED ONCE .ROUTE ; Start 05/02/20 at 07:33; Stop 05/02/20 at 07:33; Status DC Ondansetron HCl (Zofran) 4 mg STK-MED ONCE .ROUTE ; Start 05/02/20 at 07:36; Stop 05/02/20 at 07:36; Status DC Dexamethasone Sodium Phosphate (Decadron) 4 mg STK-MED ONCE .ROUTE ; Start 05/02/20 at 07:36; Stop 05/02/20 at 07:36; Status DC Desflurane (Suprane) 60 ml STK-MED ONCE IH ; Start 05/02/20 at 07:52; Stop 05/02/20 at 07:52; Status DC Sevoflurane (Ultane) 60 ml STK-MED ONCE IH ; Start 05/02/20 at 07:52; Stop 05/02/20 at 07:52; Status DC Rocuronium Maramec (Zemuron) 50 mg STK-MED ONCE .ROUTE ; Start 05/02/20 at 07:56; Stop 05/02/20 at 07:57; Status DC Dexamethasone Sodium Phosphate (Decadron) 4 mg STK-MED ONCE .ROUTE ; Start 05/02/20 at 08:11; Stop 05/02/20 at 08:11; Status DC Phenylephrine HCl (PHENYLEPHRINE in 0.9% NACL PF) 1 mg STK-MED ONCE IV ; Start 05/02/20 at 08:11; Stop 05/02/20 at 08:11; Status DC Ephedrine Sulfate (ePHEDrine PF IN SALINE SYRINGE) 50 mg STK-MED ONCE IV ; Start 05/02/20 at 08:11; Stop 05/02/20 at 08:11; Status DC Phenylephrine HCl (Ham-Synephrine Inj) 10 mg STK-MED ONCE .ROUTE ; Start 05/02/20 at 08:12; Stop 05/02/20 at 08:13; Status DC Sodium Chloride (Normal Saline Flush) 3 ml QSHIFT PRN IV AFTER MEDS AND BLOOD DRAWS; Start 05/02/20 at 10:45 Sodium Chloride 1,000 ml @ 60 mls/hr [id number] IV ; Start 05/02/20 at 10:36 Oxycodone/ Acetaminophen (Percocet 5/325) 1 tab PRN Q4HRS PRN PO MILD PAIN, 1ST CHOICE Last administered on 05/02/20at 15:20; Start 05/02/20 at 10:45 Oxycodone/ Acetaminophen (Percocet 5/325) 2 tab PRN Q4HRS PRN PO MODERATE PAIN, SEVERE PAIN; Start 05/02/20 at 10:45 Naloxone HCl (Narcan) 0.4 mg PRN Q2MIN PRN IV SEE INSTRUCTIONS; Start 05/02/20 at 10:45 Sodium Chloride 1,000 ml @ 25 mls/hr Q24H IV ; Start 05/02/20 at 10:36 Hydromorphone HCl (Dilaudid) 0.2 mg PRN Q1HR PRN IV PAIN; Start 05/02/20 at 10:45 Ondansetron HCl (Zofran) 4 mg PRN Q6HRS PRN IVP NAUESA, 1ST CHOICE; Start 05/02/20 at 10:45 Fentanyl Citrate (Fentanyl 2ml Vial) 100 mcg STK-MED ONCE .ROUTE ; Start 05/02/20 at 11:46; Stop 05/02/20 at 11:46; Status DC Fentanyl Citrate (Fentanyl 2ml Vial) 100 mcg STK-MED ONCE .ROUTE ; Start 05/02/20 at 12:17; Stop 05/02/20 at 12:17; Status DC Pantoprazole Sodium (Protonix) 40 mg 1X ONCE PO Last administered on 05/02/20at 15:18; Start 05/02/20 at 15:15; Stop 05/02/20 at 15:16; Status DC Active Scripts Active Reported Miralax (Polyethylene Glycol 3350) 17 Gm Powd.pack 1 Packet PO PRN PRN 2 Days dissolve in water Atorvastatin Calcium 10 Mg Tablet 10 Mg PO HS [auryxia] 630 Mg PO TIDAC Protonix (Pantoprazole Sodium) 20 Mg Tablet.dr 2 Tab PO DAILY Furosemide 80 Mg Tablet 1 Tab PO TID Vitamin D (Cholecalciferol (Vitamin D3)) 5,000 Unit Tablet 5,000 Unit PO DAILY Johanna-Celia Rx Tablet (Vit B Cmplx 3/Fa/Vit C/Biotin) 1 Each Tablet 1 Each PO DAILY Sensipar (Cinacalcet Hcl) 60 Mg Tablet 90 Mg PO DAILY Novolog (Insulin Aspart) 100 Unit/1 Ml Vial 12 Unit SQ TIDAC sliding scale Lantus Solostar (Insulin Glargine,Hum.rec.anlog) 100 Unit/1 Ml Insuln.pen 20 Unit SQ HS Allergies Allergies: Coded Allergies: Penicillins (Verified Adverse Reaction, Mild, Nausea, 05/02/20) ROS General: YES: Fatigue, Malaise; No: Chills, Night Sweats, Appetite, Other PSYCHOLOGICAL ROS: No: Anxiety, Behavioral Disorder, Concentration difficultie, Decreased libido, Depression, Disorientation, Hallucinations, Hostility, Irritablity, Memory difficulties, Mood Swings, Obsessive thoughts, Physical abuse, Sexual abuse, Sleep disturbances, Suicidal ideation, Other Eyes: No Blurry vision, No Decreased vision, No Double vision, No Dry eyes, No Excessive tearing, No Eye Pain, No Itchy Eyes, No Loss of vision, No Photophobia, No Scotomata, No Uses contacts, No Uses glasses, No Other HEENT: YES: Sore Throat; No: Heacaches, Visual Changes, Hearing change, Nasal congestion, Nasal discharge, Oral lesions, Sinus pain, Epistaxis, Sneezing, Snoring, Tinnitus, Vertigo, Vocal changes, Other ALLERGY AND IMMUNOLOGY: No: Hives, Insect Bite Sensitivity, Itchy/Watery Eyes, Nasal Congestion, Post Nasal Drip, Seasonal Allergies, Other Hematological and Lymphatic: No: Bleeding Problems, Blood Clots, Blood Transfusions, Brusing, Night Sweats, Pallor, Swollen Lymph Nodes, Other ENDOCRINE: No: Breast Changes, Galactorrhea, Hair Pattern Changes, Hot Flashes, Malaise/lethargy, Mood Swings, Palpitations, Polydipsia/polyuria, Skin Changes, Temperature Intolerance, Unexpected Weight Changes, Other Breast: No New/Changing Breast Lumps, No Nipple changes, No Nipple discharge, No Other Respiratory: No: Cough, Hemoptysis, Orthopnea, Pleuritic Pain, Shortness of breath, SOB with excertion, Sputum Changes, Stridor, Tachypnea, Wheezing, Other Cardiovascular: No Chest Pain, No Palpitations, No Orthopnea, No Paroxysmal Noc. Dyspnea, No Edema, No Lt Headedness, No Other Gastrointestinal: No Nausea, No Vomiting, No Abdominal Pain, No Diarrhea, No Constipation, No Melena, No Hematochezia, No Other Genitourinary: No Dysuria, No Frequency, No Incontinence, No Hematuria, No Retention, No Discharge, No Urgency, No Pain, No Flank Pain, No Other, No , No , No , No , No , No , No Musculoskeletal: No Gait Disturbance, No Joint Pain, No Joint Stiffness, No Joint Swelling, No Muscle Pain, No Muscular Weakness, No Pain In:, No Swelling In:, No Other Neurological: No Behavorial Changes, No Bowel/Bladder ControlChng, No Confusion, No Dizziness, No Gait Disturbance, No Headaches, No Impaired Coord/balance, No Memory Loss, No Numbness/Tingling, No Seizures, No Speech Problems, No Tremors, No Visual Changes, No Weakness, No Other Skin: No Dry Skin, No Eczema, No Hair Changes, No Lumps, No Mole Changes, No Mottling, No Nail Changes, No Pruritus, No Rash, No Skin Lesion Changes, No Other, No Acne Physical Exam General: Alert, Oriented X3, Cooperative, No acute distress HEENT: Atraumatic, PERRLA, EOMI, Mucous membr. moist/pink, Other (Bandaged anterior neck wound) Lungs: Clear to auscultation, Normal air movement Heart: Regular rate, Normal S1, Normal S2, No murmurs Abdomen: Normal bowel sounds, Soft, No tenderness, No hepatosplenomegaly, No masses Extremities: No clubbing, No cyanosis, No edema, Normal pulses, No tenderness/swelling, Other (LUE with good bruit in AV fistula) Skin: No rashes, No breakdown Neuro: Normal gait, Normal speech, Normal tone, Sensation intact, Reflexes 2+ Psych/Mental Status: Mental status NL, Mood NL MUSCULOSKELETAL: No joint tenderness, No deformity, No swelling, No muscular tenderness noted, Full range of motion without pain Vitals VITALS Vital Signs Date Time Temp Pulse Resp B/P (MAP) Pulse Ox O2 Delivery O2 Flow Rate FiO2 05/02/20 15:20 20 100 Nasal Cannula 2.0 05/02/20 14:45 106 123/76 05/02/20 13:05 98.8 98.8 Labs Labs Laboratory Tests Test 05/02/20 06:47 05/02/20 10:41 05/02/20 14:39 Glucose (Fingerstick) 136 mg/dL (70-99) 127 mg/dL (70-99) 408 mg/dL (70-99) Laboratory Tests Test 05/02/20 06:47 05/02/20 10:41 05/02/20 14:39 Glucose (Fingerstick) 136 mg/dL (70-99) 127 mg/dL (70-99) 408 mg/dL (70-99) Assessment/Plan Assessment/Plan A/P: Secondary hyperparathyroidism - s/p left inferior/superior, right superior and right inferior sub-total parathyroidectomy and left inferior thyroid nodule resection. Q6hour calcium monitoring. ESRD - was on PD ,switched to HD - MWF. Dr. Parks is his primary vp of product. Consulted for HD management. Getting eval for renal Tx at [facility] DM2 with Blood Glucose very high - will give 25u TID and glargine per home regimen Chronic Diastolic CHF-Stable, On R HTN- continue antihypertensives GERD - will cont PPI HLD - cont statin GALINDO on CPAP - cont inpatient Anemia of chronic renal insufficiency - stable FEN - Renal ADA diet PPX - heparin with dialysis FULL CODE Dispo - inpatient for calcium monitoring, needs telemetry. If he requires continued inpatient care we would be happy to transition primary care Thank you for this consult! with any questions MU CATALAN MD May 02, 2020 15:42
[2020-05-02] MEDS ORDERED: POLYETHYLENE GLYCOL 3350 17 GM PACKET. PO PRN (15:45)
[2020-05-02] MEDS ORDERED: DEXTROSE 50% 25 GM / 50ML DISP.SYRIN. IV PRN (15:45)
[2020-05-02] MEDS ORDERED: INSULIN LISPRO 100 UNIT/ML 3ML VIAL for OP,RR ONLY. SQ ONE ×3 (16:30)
--- NOTE | 2020-05-02 16:58 | NUR ---
The patient, WILFRED STEVENS, 40 y/o, M admitted by HONG ROGER MD, was given written information regarding hospital policies, unit procedures and contact persons. at bedside.
[2020-05-02] MEDS ORDERED: PHENOL ORAL SPRAY 177ML BOTTLE. PO PRN (17:00)
[2020-05-02] MEDS: INSULIN LISPRO 300 UNITS/3 ML VIAL. SQ SCH ×3 (17:30→21:21)
--- NOTE | 2020-05-02 17:32 | NUR ---
Blood sugar 357, Dr. Suzie pina. Order for 12 units plus 7 units total of 19 units to be given. Will continue to monitor.
[2020-05-02 17:41] VITALS: BP 140/78
--- NOTE | 2020-05-02 18:26 | NUR ---
Patient refused to have 19 units of insulin. Patient stated 12 units will be enough. Will continue to monitor.
[2020-05-02] MEDS ORDERED: CALCIUM GLUCONATE 1,000 MG/10 ML VIAL. IVP ONE (18:30)
[2020-05-02] MEDS ORDERED: DEXTROSE 5% IV SCH (19:00)
[2020-05-02] MEDS ORDERED: CALCIUM GLUCONATE IV SCH (19:00)
[2020-05-02 19:20] VITALS: BP 114/72
[2020-05-02] MEDS: ATORVASTATIN CALCIUM 10 MG TABLET. PO SCH (21:14)
[2020-05-02] MEDS: INSULIN GLARGINE SYRINGE. SQ SCH (21:21)
[2020-05-02 22:37] LABS: BASO # 0.2 x10^3/uL (0.0-0.2); BASO % 1 % (0-3); EOS % 0 % (0-3); HEMATOCRIT 34.8 % (39.0-53.0); HEMOGLOBIN 11.7 g/dL (13.0-17.5); LYMPH % 8 % (24-48); MEAN CORPUSCULAR HEMOGLOBIN 31 pg (25-35); MEAN CORPUSCULAR HGB CONC 34 g/dL (31-37); MEAN CORPUSCULAR VOLUME 93 fL (79-100); MONO % 8 % (0-9); NEUT # 10.8 x10^3/uL (1.8-7.7); NEUT % 83 % (31-73); PLATELET COUNT 270 x10^3/uL (140-400); RED BLOOD COUNT 3.73 x10^6/uL (4.30-5.70); RED CELL DISTRIBUTION WIDTH 13.5 % (11.5-14.5)
[2020-05-02 22:49] LABS: CALCIUM 7.2 mg/dL (8.5-10.1); CREATININE 14.4 mg/dL (0.7-1.3); GFR 4.6
[2020-05-02 23:20] VITALS: BP 116/74
[2020-05-03] MEDS: IV 1/2 NORMAL SALINE 1,000 ML IV SCH ×2 (03:16→19:17)
[2020-05-03 03:35] VITALS: BP 127/78
[2020-05-03 04:15] LABS: BASO # 0.1 x10^3/uL (0.0-0.2); BASO % 1 % (0-3); EOS # 0.2 x10^3/uL (0.0-0.7); EOS % 1 % (0-3); HEMOGLOBIN 11.4 g/dL (13.0-17.5); LYMPH # 1.1 x10^3/uL (1.0-4.8); LYMPH % 9 % (24-48); MEAN CORPUSCULAR HEMOGLOBIN 32 pg (25-35); MEAN CORPUSCULAR HGB CONC 33 g/dL (31-37); MEAN CORPUSCULAR VOLUME 94 fL (79-100); MONO # 1.1 x10^3/uL (0.0-1.1); MONO % 9 % (0-9); NEUT # 9.9 x10^3/uL (1.8-7.7); NEUT % 80 % (31-73); PLATELET COUNT 266 x10^3/uL (140-400); RED CELL DISTRIBUTION WIDTH 13.5 % (11.5-14.5); WHITE BLOOD COUNT 12.3 x10^3/uL (4.0-11.0)
[2020-05-03 04:21] LABS: CALCIUM 6.6 mg/dL (8.5-10.1); GFR 4.4; POTASSIUM 4.8 mmol/L (3.5-5.1)
[2020-05-03] MEDS ORDERED: CALCIUM GLUCONATE 1,000 MG/10 ML VIAL. IVP ONE (05:30)
[2020-05-03] MEDS: oxyCODONE/APAP 5/325 1 TAB TABLET PO PRN ×3 (05:41→21:27)
[2020-05-03 07:00] VITALS: BP 125/82
[2020-05-03] MEDS: INSULIN LISPRO 300 UNITS/3 ML VIAL. SQ SCH ×7 (07:30→21:00)
[2020-05-03] MEDS: PANTOPRAZOLE 40 MG TABLET.DR. PO SCH ×3 (07:30→22:18)
[2020-05-03] MEDS ORDERED: IV NORMAL SALINE 1000ML BAG 1,000 ML IV PRN ×2 (07:52)
[2020-05-03] MEDS ORDERED: DIALYSIS PATIENT. MC PRN ×2 (08:00)
--- NOTE | 2020-05-03 08:16 | PDOC ---
PROGRESS NOTES Chief Complaint Chief Complaint Assessment/Plan Assessment/Plan A/P: Secondary hyperparathyroidism - s/p left inferior/superior, right superior and right inferior sub-total parathyroidectomy and left inferior thyroid nodule resection. Q6hour calcium monitoring. ESRD - was on PD ,switched to HD - MW. Dr. Parks is his primary claim processor. Consulted for HD management. Getting eval for renal Tx at [facility] DM2 with Blood Glucose very high - will give 25u TID and glargine per home regimen Chronic Diastolic CHF-Stable, On R HTN- continue antihypertensives GERD - will cont PPI HLD - cont statin GALINDO on CPAP - cont inpatient Anemia of chronic renal insufficiency - stable FEN - Renal ADA diet PPX - heparin with dialysis FULL CODE Dispo - inpatient for calcium monitoring, needs telemetry. If he requires continued inpatient care we would be happy to transition primary care Thank you for this consult! iv calcium gluconate prn D./W RN IN DIALYSIS History of Present Illness History of Present Illness History of Present Illness Reason for Visit: Mr Villa is a 40 yo M w/ PMHx HTN, HLD, GALINDO on CPAP, DM2 on insulin, ESRD on HD (previously on PD), anemia of chronic renal insufficiency, and recent diagnosis of secondary hyperparathyroidism who is admitted today for post-operative management and calcium monitoring after symptomatic hypeparathyroidism with a left inferior/superior, right superior and right inferior sub-total parathyroidectomy and left inferior thyroid nodule resection. Glucose 408 and has as sore throat post-operatively Vitals Vitals Vital Signs Date Time Temp Pulse Resp B/P (MAP) Pulse Ox O2 Delivery O2 Flow Rate FiO2 05/03/20 05:41 16 Room Air 05/03/20 03:35 97.7 84 127/78 (94) 97 97.7 05/02/20 15:20 2.0 Physical Exam General: Alert, Oriented X3, Cooperative, No acute distress Heart: Regular rate, Normal S1, Normal S2, No murmurs Lungs: Clear Abdomen: Normal bowel sounds, Soft, No tenderness, No hepatosplenomegaly, No masses Extremities: No clubbing, No cyanosis, No edema, Normal pulses, No tenderness/swelling, Other (LUE with good bruit in AV fistula) Skin: No rashes, No breakdown Labs LABS Laboratory Tests Test 05/02/20 10:41 05/02/20 14:39 05/02/20 16:17 05/02/20 16:22 Glucose (Fingerstick) 127 mg/dL (70-99) 408 mg/dL (70-99) 407 mg/dL (70-99) Calcium Level 7.1 mg/dL (8.5-10.1) Test 05/02/20 17:19 05/02/20 19:22 05/02/20 22:12 05/03/20 04:05 Glucose (Fingerstick) 357 mg/dL (70-99) 215 mg/dL (70-99) White Blood Count 13.0 x10^3/uL (4.0-11.0) 12.3 x10^3/uL (4.0-11.0) Red Blood Count 3.73 x10^6/uL (4.30-5.70) 3.60 x10^6/uL (4.30-5.70) Hemoglobin 11.7 g/dL (13.0-17.5) 11.4 g/dL (13.0-17.5) Hematocrit 34.8 % (39.0-53.0) 34.0 % (39.0-53.0) Mean Corpuscular Volume 93 fL (79-100) 94 fL (79-100) Mean Corpuscular Hemoglobin 31 pg (25-35) 32 pg (25-35) Mean Corpuscular Hemoglobin Concent 34 g/dL (31-37) 33 g/dL (31-37) Red Cell Distribution Width 13.5 % (11.5-14.5) 13.5 % (11.5-14.5) Platelet Count 270 x10^3/uL (140-400) 266 x10^3/uL (140-400) Neutrophils (%) (Auto) 83 % (31-73) 80 % (31-73) Lymphocytes (%) (Auto) 8 % (24-48) 9 % (24-48) Monocytes (%) (Auto) 8 % (0-9) 9 % (0-9) Eosinophils (%) (Auto) 0 % (0-3) 1 % (0-3) Basophils (%) (Auto) 1 % (0-3) 1 % (0-3) Neutrophils # (Auto) 10.8 x10^3/uL (1.8-7.7) 9.9 x10^3/uL (1.8-7.7) Lymphocytes # (Auto) 1.0 x10^3/uL (1.0-4.8) 1.1 x10^3/uL (1.0-4.8) Monocytes # (Auto) 1.0 x10^3/uL (0.0-1.1) 1.1 x10^3/uL (0.0-1.1) Eosinophils # (Auto) 0.0 x10^3/uL (0.0-0.7) 0.2 x10^3/uL (0.0-0.7) Basophils # (Auto) 0.2 x10^3/uL (0.0-0.2) 0.1 x10^3/uL (0.0-0.2) Sodium Level 136 mmol/L (136-145) 133 mmol/L (136-145) Potassium Level 5.0 mmol/L (3.5-5.1) 4.8 mmol/L (3.5-5.1) Chloride Level 97 mmol/L (98-107) 96 mmol/L (98-107) Carbon Dioxide Level 22 mmol/L (21-32) 22 mmol/L (21-32) Anion Gap 17 (6-14) 15 (6-14) Blood Urea Nitrogen 91 mg/dL (8-26) 93 mg/dL (8-26) Creatinine 14.4 mg/dL (0.7-1.3) 15.0 mg/dL (0.7-1.3) Estimated GFR (Cockcroft-Gault) 4.6 4.4 Glucose Level 107 mg/dL (70-99) 174 mg/dL (70-99) Calcium Level 7.2 mg/dL (8.5-10.1) 6.6 mg/dL (8.5-10.1) Comment Review of Relevant I have reviewed the following items javy (where applicable) has been applied. Labs Laboratory Tests Test 05/02/20 06:47 05/02/20 10:41 05/02/20 14:39 05/02/20 16:17 Glucose (Fingerstick) 136 mg/dL (70-99) 127 mg/dL (70-99) 408 mg/dL (70-99) 407 mg/dL (70-99) Test 05/02/20 16:22 05/02/20 17:19 05/02/20 19:22 05/02/20 22:12 Calcium Level 7.1 mg/dL (8.5-10.1) 7.2 mg/dL (8.5-10.1) Glucose (Fingerstick) 357 mg/dL (70-99) 215 mg/dL (70-99) White Blood Count 13.0 x10^3/uL (4.0-11.0) Red Blood Count 3.73 x10^6/uL (4.30-5.70) Hemoglobin 11.7 g/dL (13.0-17.5) Hematocrit 34.8 % (39.0-53.0) Mean Corpuscular Volume 93 fL (79-100) Mean Corpuscular Hemoglobin 31 pg (25-35) Mean Corpuscular Hemoglobin Concent 34 g/dL (31-37) Red Cell Distribution Width 13.5 % (11.5-14.5) Platelet Count 270 x10^3/uL (140-400) Neutrophils (%) (Auto) 83 % (31-73) Lymphocytes (%) (Auto) 8 % (24-48) Monocytes (%) (Auto) 8 % (0-9) Eosinophils (%) (Auto) 0 % (0-3) Basophils (%) (Auto) 1 % (0-3) Neutrophils # (Auto) 10.8 x10^3/uL (1.8-7.7) Lymphocytes # (Auto) 1.0 x10^3/uL (1.0-4.8) Monocytes # (Auto) 1.0 x10^3/uL (0.0-1.1) Eosinophils # (Auto) 0.0 x10^3/uL (0.0-0.7) Basophils # (Auto) 0.2 x10^3/uL (0.0-0.2) Sodium Level 136 mmol/L (136-145) Potassium Level 5.0 mmol/L (3.5-5.1) Chloride Level 97 mmol/L (98-107) Carbon Dioxide Level 22 mmol/L (21-32) Anion Gap 17 (6-14) Blood Urea Nitrogen 91 mg/dL (8-26) Creatinine 14.4 mg/dL (0.7-1.3) Estimated GFR (Cockcroft-Gault) 4.6 Glucose Level 107 mg/dL (70-99) Test 05/03/20 04:05 White Blood Count 12.3 x10^3/uL (4.0-11.0) Red Blood Count 3.60 x10^6/uL (4.30-5.70) Hemoglobin 11.4 g/dL (13.0-17.5) Hematocrit 34.0 % (39.0-53.0) Mean Corpuscular Volume 94 fL (79-100) Mean Corpuscular Hemoglobin 32 pg (25-35) Mean Corpuscular Hemoglobin Concent 33 g/dL (31-37) Red Cell Distribution Width 13.5 % (11.5-14.5) Platelet Count 266 x10^3/uL (140-400) Neutrophils (%) (Auto) 80 % (31-73) Lymphocytes (%) (Auto) 9 % (24-48) Monocytes (%) (Auto) 9 % (0-9) Eosinophils (%) (Auto) 1 % (0-3) Basophils (%) (Auto) 1 % (0-3) Neutrophils # (Auto) 9.9 x10^3/uL (1.8-7.7) Lymphocytes # (Auto) 1.1 x10^3/uL (1.0-4.8) Monocytes # (Auto) 1.1 x10^3/uL (0.0-1.1) Eosinophils # (Auto) 0.2 x10^3/uL (0.0-0.7) Basophils # (Auto) 0.1 x10^3/uL (0.0-0.2) Sodium Level 133 mmol/L (136-145) Potassium Level 4.8 mmol/L (3.5-5.1) Chloride Level 96 mmol/L (98-107) Carbon Dioxide Level 22 mmol/L (21-32) Anion Gap 15 (6-14) Blood Urea Nitrogen 93 mg/dL (8-26) Creatinine 15.0 mg/dL (0.7-1.3) Estimated GFR (Cockcroft-Gault) 4.4 Glucose Level 174 mg/dL (70-99) Calcium Level 6.6 mg/dL (8.5-10.1) Laboratory Tests Test 05/02/20 10:41 05/02/20 14:39 05/02/20 16:17 05/02/20 16:22 Glucose (Fingerstick) 127 mg/dL (70-99) 408 mg/dL (70-99) 407 mg/dL (70-99) Calcium Level 7.1 mg/dL (8.5-10.1) Test 05/02/20 17:19 05/02/20 19:22 05/02/20 22:12 05/03/20 04:05 Glucose (Fingerstick) 357 mg/dL (70-99) 215 mg/dL (70-99) White Blood Count 13.0 x10^3/uL (4.0-11.0) 12.3 x10^3/uL (4.0-11.0) Red Blood Count 3.73 x10^6/uL (4.30-5.70) 3.60 x10^6/uL (4.30-5.70) Hemoglobin 11.7 g/dL (13.0-17.5) 11.4 g/dL (13.0-17.5) Hematocrit 34.8 % (39.0-53.0) 34.0 % (39.0-53.0) Mean Corpuscular Volume 93 fL (79-100) 94 fL (79-100) Mean Corpuscular Hemoglobin 31 pg (25-35) 32 pg (25-35) Mean Corpuscular Hemoglobin Concent 34 g/dL (31-37) 33 g/dL (31-37) Red Cell Distribution Width 13.5 % (11.5-14.5) 13.5 % (11.5-14.5) Platelet Count 270 x10^3/uL (140-400) 266 x10^3/uL (140-400) Neutrophils (%) (Auto) 83 % (31-73) 80 % (31-73) Lymphocytes (%) (Auto) 8 % (24-48) 9 % (24-48) Monocytes (%) (Auto) 8 % (0-9) 9 % (0-9) Eosinophils (%) (Auto) 0 % (0-3) 1 % (0-3) Basophils (%) (Auto) 1 % (0-3) 1 % (0-3) Neutrophils # (Auto) 10.8 x10^3/uL (1.8-7.7) 9.9 x10^3/uL (1.8-7.7) Lymphocytes # (Auto) 1.0 x10^3/uL (1.0-4.8) 1.1 x10^3/uL (1.0-4.8) Monocytes # (Auto) 1.0 x10^3/uL (0.0-1.1) 1.1 x10^3/uL (0.0-1.1) Eosinophils # (Auto) 0.0 x10^3/uL (0.0-0.7) 0.2 x10^3/uL (0.0-0.7) Basophils # (Auto) 0.2 x10^3/uL (0.0-0.2) 0.1 x10^3/uL (0.0-0.2) Sodium Level 136 mmol/L (136-145) 133 mmol/L (136-145) Potassium Level 5.0 mmol/L (3.5-5.1) 4.8 mmol/L (3.5-5.1) Chloride Level 97 mmol/L (98-107) 96 mmol/L (98-107) Carbon Dioxide Level 22 mmol/L (21-32) 22 mmol/L (21-32) Anion Gap 17 (6-14) 15 (6-14) Blood Urea Nitrogen 91 mg/dL (8-26) 93 mg/dL (8-26) Creatinine 14.4 mg/dL (0.7-1.3) 15.0 mg/dL (0.7-1.3) Estimated GFR (Cockcroft-Gault) 4.6 4.4 Glucose Level 107 mg/dL (70-99) 174 mg/dL (70-99) Calcium Level 7.2 mg/dL (8.5-10.1) 6.6 mg/dL (8.5-10.1) Medications Current Medications Ondansetron HCl (Zofran) 4 mg PRN Q6HRS PRN IV NAUSEA/VOMITING; Start 05/02/20 at 07:00; Stop 05/03/20 at 06:59; Status DC Fentanyl Citrate (Fentanyl 2ml Vial) 25 mcg PRN Q5MIN PRN IV MILD PAIN 1-3; Start 05/02/20 at 07:00; Stop 05/03/20 at 06:59; Status DC Fentanyl Citrate (Fentanyl 2ml Vial) 50 mcg PRN Q5MIN PRN IV MODERATE TO SEVERE PAIN Last administered on 05/02/20at 13:27; Start 05/02/20 at 07:00; Stop 05/03/20 at 06:59; Status DC Morphine Sulfate (Morphine Sulfate) 1 mg PRN Q10MIN PRN IV SEVERE PAIN 7-10; Start 05/02/20 at 07:00; Stop 05/03/20 at 06:59; Status DC Ringer's Solution 1,000 ml @ 30 mls/hr Q24H IV ; Start 05/02/20 at 07:00; Stop 05/02/20 at 18:59; Status DC Lidocaine HCl (Xylocaine-Mpf 1% 2ml Vial) 2 ml PRN 1X PRN ID PRIOR TO IV START; Start 05/02/20 at 07:00; Stop 05/03/20 at 06:59; Status DC Hydromorphone HCl (Dilaudid) 0.5 mg PRN Q10MIN PRN IV SEV PAIN, Second choice; Start 05/02/20 at 07:00; Stop 05/03/20 at 06:59; Status DC Prochlorperazine Edisylate (Compazine) 5 mg PACU PRN PRN IV NAUSEA, MRX1; Start 05/02/20 at 07:00; Stop 05/03/20 at 06:59; Status DC Cefazolin Sodium/ Dextrose 50 ml @ 100 mls/hr 1X PREOP PRN IV PRIOR TO PROCEDURE Last administered on 05/02/20at 07:40; Start 05/02/20 at 08:00; Stop 05/02/20 at 18:00; Status DC Insulin Human Lispro (HumaLOG VIAL for OP,RR ONLY) 0-10 units PRN Q1HR PRN SQ PER PROTOCOL Last administered on 05/02/20at 16:21; Start 05/02/20 at 07:15; Stop 05/03/20 at 07:14; Status DC Sodium Chloride 1,000 ml @ 0 mls/hr Q0M IV Last administered on 05/02/20at 07:24; Start 05/02/20 at 07:15 Propofol (Diprivan) 200 mg STK-MED ONCE IV ; Start 05/02/20 at 07:32; Stop 05/02/20 at 07:32; Status DC Lidocaine HCl (Xylocaine-Mpf 1% 5ml Vial) 5 ml STK-MED ONCE .ROUTE ; Start 05/02/20 at 07:32; Stop 05/02/20 at 07:32; Status DC Midazolam HCl (Versed) 2 mg STK-MED ONCE .ROUTE ; Start 05/02/20 at 07:32; Stop 05/02/20 at 07:33; Status DC Fentanyl Citrate (Fentanyl 5ml Vial) 250 mcg STK-MED ONCE .ROUTE ; Start 05/02/20 at 07:32; Stop 05/02/20 at 07:33; Status DC Succinylcholine Chloride (Anectine) 200 mg STK-MED ONCE .ROUTE ; Start 05/02/20 at 07:33; Stop 05/02/20 at 07:33; Status DC Ondansetron HCl (Zofran) 4 mg STK-MED ONCE .ROUTE ; Start 05/02/20 at 07:36; Stop 05/02/20 at 07:36; Status DC Dexamethasone Sodium Phosphate (Decadron) 4 mg STK-MED ONCE .ROUTE ; Start 05/02/20 at 07:36; Stop 05/02/20 at 07:36; Status DC Desflurane (Suprane) 60 ml STK-MED ONCE IH ; Start 05/02/20 at 07:52; Stop 05/02/20 at 07:52; Status DC Sevoflurane (Ultane) 60 ml STK-MED ONCE IH ; Start 05/02/20 at 07:52; Stop 05/02/20 at 07:52; Status DC Rocuronium [place] (Zemuron) 50 mg STK-MED ONCE .ROUTE ; Start 05/02/20 at 07:56; Stop 05/02/20 at 07:57; Status DC Dexamethasone Sodium Phosphate (Decadron) 4 mg STK-MED ONCE .ROUTE ; Start 05/02/20 at 08:11; Stop 05/02/20 at 08:11; Status DC Phenylephrine HCl (PHENYLEPHRINE in 0.9% NACL PF) 1 mg STK-MED ONCE IV ; Start 05/02/20 at 08:11; Stop 05/02/20 at 08:11; Status DC Ephedrine Sulfate (ePHEDrine PF IN SALINE SYRINGE) 50 mg STK-MED ONCE IV ; Start 05/02/20 at 08:11; Stop 05/02/20 at 08:11; Status DC Phenylephrine HCl (Ham-Synephrine Inj) 10 mg STK-MED ONCE .ROUTE ; Start 05/02/20 at 08:12; Stop 05/02/20 at 08:13; Status DC Sodium Chloride (Normal Saline Flush) 3 ml QSHIFT PRN IV AFTER MEDS AND BLOOD DRAWS; Start 05/02/20 at 10:45 Sodium Chloride 1,000 ml @ 60 mls/hr [id number] IV ; Start 05/02/20 at 10:36 Oxycodone/ Acetaminophen (Percocet 5/325) 1 tab PRN Q4HRS PRN PO MILD PAIN, 1ST CHOICE Last administered on 05/03/20at 05:41; Start 05/02/20 at 10:45 Oxycodone/ Acetaminophen (Percocet 5/325) 2 tab PRN Q4HRS PRN PO MODERATE PAIN, SEVERE PAIN; Start 05/02/20 at 10:45 Naloxone HCl (Narcan) 0.4 mg PRN Q2MIN PRN IV SEE INSTRUCTIONS; Start 05/02/20 at 10:45 Sodium Chloride 1,000 ml @ 25 mls/hr Q24H IV ; Start 05/02/20 at 10:36 Hydromorphone HCl (Dilaudid) 0.2 mg PRN Q1HR PRN IV PAIN Last administered on 05/02/20at 23:22; Start 05/02/20 at 10:45 Ondansetron HCl (Zofran) 4 mg PRN Q6HRS PRN IVP NAUESA, 1ST CHOICE; Start 05/02/20 at 10:45 Fentanyl Citrate (Fentanyl 2ml Vial) 100 mcg STK-MED ONCE .ROUTE ; Start 05/02/20 at 11:46; Stop 05/02/20 at 11:46; Status DC Fentanyl Citrate (Fentanyl 2ml Vial) 100 mcg STK-MED ONCE .ROUTE ; Start 05/02/20 at 12:17; Stop 05/02/20 at 12:17; Status DC Pantoprazole Sodium (Protonix) 40 mg 1X ONCE PO Last administered on 05/02/20at 15:18; Start 05/02/20 at 15:15; Stop 05/02/20 at 15:16; Status DC Atorvastatin Calcium (Lipitor) 10 mg HS PO Last administered on 05/02/20at 21:14; Start 05/02/20 at 21:00 Polyethylene Glycol (miraLAX PACKET) 17 gm PRN DAILY PRN PO CONSTIPATION; Start 05/02/20 at 15:45 Insulin Human Lispro (HumaLOG) 12 units TIDWMEALS SQ Last administered on 05/02/20at 18:22; Start 05/02/20 at 17:30 Insulin Glargine (Lantus Syringe) 20 unit QHS SQ Last administered on 05/02/20at 21:21; Start 05/02/20 at 21:00 Pantoprazole Sodium (Protonix) 40 mg DAILYAC PO ; Start 05/03/20 at 07:30 Vitamin B Complex/ Vitamin C (Johanna-Celia) 1 tab DAILY PO ; Start 05/03/20 at 09:00 Insulin Human Lispro (HumaLOG) 0-7 UNITS TIDACHC SQ Last administered on 05/02/20at 21:21; Start 05/02/20 at 17:30 Dextrose (Dextrose 50%-Water Syringe) 12.5 gm PRN Q15MIN PRN IV SEE COMMENTS; Start 05/02/20 at 15:45 Phenol (Chloraseptic) 1 spray PRN Q2HR PRN PO SORE THROAT; Start 05/02/20 at 17:00 Throat Lozenges (Cepacol Sore Throat Lozenge) 1 afshan PRN Q2HRS PRN PO SORE THROAT; Start 05/02/20 at 17:00 Calcium Gluconate (Calcium Gluconate) 1,000 mg 1X ONCE IVP Last administered on 05/02/20at 18:55; Start 05/02/20 at 18:30; Stop 05/02/20 at 18:31; Status DC Calcium Gluconate 3000 mg/Dextrose 1,030 ml @ 60 mls/hr [id number] IV Last administered on 05/02/20at 19:24; Start 05/02/20 at 19:00; Stop 05/03/20 at 11:00 Calcium Gluconate 3000 mg/Dextrose 1,030 ml @ 60 mls/hr [id number] IV ; Start 05/02/20 at 19:00; Status Cancel Calcium Gluconate (Calcium Gluconate) 2,000 mg 1X ONCE IVP Last administered on 05/03/20at 05:15; Start 05/03/20 at 05:30; Stop 05/03/20 at 05:31; Status DC Active Scripts Active Reported Miralax (Polyethylene Glycol 3350) 17 Gm Powd.pack 1 Packet PO PRN PRN 2 Days dissolve in water Atorvastatin Calcium 10 Mg Tablet 10 Mg PO HS [auryxia] 630 Mg PO TIDAC Protonix (Pantoprazole Sodium) 20 Mg Tablet.dr 2 Tab PO DAILY Furosemide 80 Mg Tablet 1 Tab PO TID Vitamin D (Cholecalciferol (Vitamin D3)) 5,000 Unit Tablet 5,000 Unit PO DAILY Johanna-Celia Rx Tablet (Vit B Cmplx 3/Fa/Vit C/Biotin) 1 Each Tablet 1 Each PO DAILY Sensipar (Cinacalcet Hcl) 60 Mg Tablet 90 Mg PO DAILY Novolog (Insulin Aspart) 100 Unit/1 Ml Vial 12 Unit SQ TIDAC sliding scale Lantus Solostar (Insulin Glargine,Hum.rec.anlog) 100 Unit/1 Ml Insuln.pen 20 Unit SQ HS Vitals/I & O Vital Sign - Last 24 Hours 05/02/20 05/02/20 05/02/20 05/02/20 10:37 10:37 10:50 11:05 Temp 98.6 98.6 Pulse 88 92 96 Resp B/P (MAP) 120/65 127/78 127/73 Pulse Ox 96 99 94 O2 Delivery Simple Mask Mask Simple Mask Room Air O2 Flow Rate 8 8 8 05/02/20 05/02/20 05/02/20 05/02/20 11:20 11:35 11:50 11:50 Temp 98.6 98.6 98.6 98.6 Pulse 93 94 100 Resp 18 18 14 17 B/P (MAP) 126/75 123/71 121/67 Pulse Ox 94 98 97 100 O2 Delivery Room Air Room Air Nasal Cannula Nasal Cannula O2 Flow Rate 2.0 2.0 7/20/20 7/20/20 7/20/20 7/20/20 12:05 12:06 12:20 12:20 Temp 98.6 98.9 98.6 98.9 Pulse 103 104 Resp 16 18 18 17 B/P (MAP) 117/66 110/57 Pulse Ox 100 100 100 100 O2 Delivery Nasal Cannula Nasal Cannula Nasal Cannula Nasal Cannula O2 Flow Rate 2.0 2.0 2.0 2.0 7/20/20 7/20/20 7/20/20 7/20 12:35 12:50 13:05 13:27 Temp 98.8 98.8 Pulse 104 106 108 Resp 18 18 19 16 B/P (MAP) 111/64 114/64 118/70 Pulse Ox 100 100 100 100 O2 Delivery Nasal Cannula Nasal Cannula Nasal Cannula Nasal Cannula O2 Flow Rate 2 2 2 3.0 05/02/20 7//20 7/20/20 720 13:51 14:45 15:15 15:20 Pulse 112 106 100 Resp 18 20 20 20 B/P (MAP) 117/67 123/76 130/81 Pulse Ox 100 93 100 100 O2 Delivery Nasal Cannula Nasal Cannula Nasal Cannula O2 Flow Rate 2 2 2.0 05/02/20 7/20/20 7/20/20 720 16:15 17:41 19:20 20:00 Temp 97.0 98.1 97.9 97.0 98.1 97.9 Pulse 105 103 91 Resp 22 18 18 B/P (MAP) 139/62 140/78 (98) 114/72 (86) Pulse Ox 100 95 96 O2 Delivery Room Air Room Air Room Air Room Air 05/02/20 05/02/20 05/03/20 05/03/20 23:20 23:22 03:35 05:41 Temp 98.5 97.7 98.5 97.7 Pulse 88 84 Resp 18 16 18 16 B/P (MAP) 116/74 (88) 127/78 (94) Pulse Ox 98 97 O2 Delivery Room Air Room Air Room Air Room Air Intake and Output 05/02/2020 20 15:00 23:00 07:00 Intake Total 1050 ml 220 ml 0 ml Output Total 50 ml Balance 1000 ml 220 ml 0 ml Justicifation of Admission Dx: Justifications for Admission: Justification of Admission Dx: Yes Chronic Renal Failure: Electrolyte Abnormality Comments: IV CALCIUM THERAPY ANA HUNTER MD May 03, 2020 08:16
--- NOTE | 2020-05-03 11:37 | PDOC2 ---
CONSULT Date of Consult Date of Consult DATE: 05/03/20 TIME: 11:33 Reason for Consult Reason for Consult: ESRD PT HIGH PTH Referring Physician Referring Physician: KANA Identification/Chief Complaint Chief Complaint HIGH PTH Source Source: Chart review, Patient History of Present Illness Reason for Visit: THIS IS A 40 YR OLD WITH ESRD DUE TO DM II AND HTN. HAS BEEN ON OP HD THEN PD AND THEN DUE TO FAILURE AND HAS RETURNED TO PD. HAS HAD PROBLEMS WITH SECONDARY HYPERPARATHYROIDISM WITH PTH LEVEL CONSISTENTLY GREATER THAN 2000. WAS REFERRED TO SURGERY AND NOW HAS UNDERGONE SUBTOTAL PARATHYROIDECTOMY. POST OP CA LEVELS ARE LOW. OP NOTE REVIEWED. LABS ARE C/W HIS ESRD STATUS Past Medical History Cardiovascular: HTN, Hyperlipidemia Pulmonary: Other CENTRAL NERVOUS SYSTEM: Carpal Tunnel Syndrome, Periperal neuropathy GI: No pertinent hx Heme/Onc: Anemia NOS Hepatobiliary: No pertinent hx Psych: No pertinent hx Musculoskeletal: Other Rheumatologic: No pertinent hx Infectious disease: No pertinent hx Renal/: Chronic renal failure Endocrine: Diabetes, Hyperparathyroidism Past Surgical History Past Surgical History: Hernia Repair, Other Family History Family History: Coronary Artery Disease, Other Social History No ALCOHOL: none Drugs: None Lives: with Family Domestic Violence: Neg Current Medications Current Medications Current Medications Ondansetron HCl (Zofran) 4 mg PRN Q6HRS PRN IV NAUSEA/VOMITING; Start 05/02/20 at 07:00; Stop 05/03/20 at 06:59; Status DC Fentanyl Citrate (Fentanyl 2ml Vial) 25 mcg PRN Q5MIN PRN IV MILD PAIN 1-3; Start 05/02/20 at 07:00; Stop 05/03/20 at 06:59; Status DC Fentanyl Citrate (Fentanyl 2ml Vial) 50 mcg PRN Q5MIN PRN IV MODERATE TO SEVERE PAIN Last administered on 05/02/20at 13:27; Start 05/02/20 at 07:00; Stop 05/03/20 at 06:59; Status DC Morphine Sulfate (Morphine Sulfate) 1 mg PRN Q10MIN PRN IV SEVERE PAIN 7-10; Start 05/02/20 at 07:00; Stop 05/03/20 at 06:59; Status DC Ringer's Solution 1,000 ml @ 30 mls/hr Q24H IV ; Start 05/02/20 at 07:00; Stop 05/02/20 at 18:59; Status DC Lidocaine HCl (Xylocaine-Mpf 1% 2ml Vial) 2 ml PRN 1X PRN ID PRIOR TO IV START; Start 05/02/20 at 07:00; Stop 05/03/20 at 06:59; Status DC Hydromorphone HCl (Dilaudid) 0.5 mg PRN Q10MIN PRN IV SEV PAIN, Second choice; Start 05/02/20 at 07:00; Stop 05/03/20 at 06:59; Status DC Prochlorperazine Edisylate (Compazine) 5 mg PACU PRN PRN IV NAUSEA, MRX1; Start 05/02/20 at 07:00; Stop 05/03/20 at 06:59; Status DC Cefazolin Sodium/ Dextrose 50 ml @ 100 mls/hr 1X PREOP PRN IV PRIOR TO PROCEDURE Last administered on 05/02/20at 07:40; Start 05/02/20 at 08:00; Stop 05/02/20 at 18:00; Status DC Insulin Human Lispro (HumaLOG VIAL for OP,RR ONLY) 0-10 units PRN Q1HR PRN SQ PER PROTOCOL Last administered on 05/02/20at 16:21; Start 05/02/20 at 07:15; Stop 05/03/20 at 07:14; Status DC Sodium Chloride 1,000 ml @ 0 mls/hr Q0M IV Last administered on 05/02/20at 07:24; Start 05/02/20 at 07:15 Propofol (Diprivan) 200 mg STK-MED ONCE IV ; Start 05/02/20 at 07:32; Stop 05/02/20 at 07:32; Status DC Lidocaine HCl (Xylocaine-Mpf 1% 5ml Vial) 5 ml STK-MED ONCE .ROUTE ; Start 05/02/20 at 07:32; Stop 05/02/20 at 07:32; Status DC Midazolam HCl (Versed) 2 mg STK-MED ONCE .ROUTE ; Start 05/02/20 at 07:32; Stop 05/02/20 at 07:33; Status DC Fentanyl Citrate (Fentanyl 5ml Vial) 250 mcg STK-MED ONCE .ROUTE ; Start 05/02/20 at 07:32; Stop 05/02/20 at 07:33; Status DC Succinylcholine Chloride (Anectine) 200 mg STK-MED ONCE .ROUTE ; Start 05/02/20 at 07:33; Stop 05/02/20 at 07:33; Status DC Ondansetron HCl (Zofran) 4 mg STK-MED ONCE .ROUTE ; Start 05/02/20 at 07:36; Stop 05/02/20 at 07:36; Status DC Dexamethasone Sodium Phosphate (Decadron) 4 mg STK-MED ONCE .ROUTE ; Start 05/02/20 at 07:36; Stop 05/02/20 at 07:36; Status DC Desflurane (Suprane) 60 ml STK-MED ONCE IH ; Start 05/02/20 at 07:52; Stop 05/02/20 at 07:52; Status DC Sevoflurane (Ultane) 60 ml STK-MED ONCE IH ; Start 05/02/20 at 07:52; Stop 05/02/20 at 07:52; Status DC Rocuronium [place] (Zemuron) 50 mg STK-MED ONCE .ROUTE ; Start 05/02/20 at 07:56; Stop 05/02/20 at 07:57; Status DC Dexamethasone Sodium Phosphate (Decadron) 4 mg STK-MED ONCE .ROUTE ; Start 05/02/20 at 08:11; Stop 05/02/20 at 08:11; Status DC Phenylephrine HCl (PHENYLEPHRINE in 0.9% NACL PF) 1 mg STK-MED ONCE IV ; Start 05/02/20 at 08:11; Stop 05/02/20 at 08:11; Status DC Ephedrine Sulfate (ePHEDrine PF IN SALINE SYRINGE) 50 mg STK-MED ONCE IV ; Start 05/02/20 at 08:11; Stop 05/02/20 at 08:11; Status DC Phenylephrine HCl (Ham-Synephrine Inj) 10 mg STK-MED ONCE .ROUTE ; Start 05/02/20 at 08:12; Stop 05/02/20 at 08:13; Status DC Sodium Chloride (Normal Saline Flush) 3 ml QSHIFT PRN IV AFTER MEDS AND BLOOD DRAWS; Start 05/02/20 at 10:45 Sodium Chloride 1,000 ml @ 60 mls/hr [id number] IV ; Start 05/02/20 at 10:36 Oxycodone/ Acetaminophen (Percocet 5/325) 1 tab PRN Q4HRS PRN PO MILD PAIN, 1ST CHOICE Last administered on 05/03/20at 05:41; Start 05/02/20 at 10:45 Oxycodone/ Acetaminophen (Percocet 5/325) 2 tab PRN Q4HRS PRN PO MODERATE PAIN, SEVERE PAIN; Start 05/02/20 at 10:45 Naloxone HCl (Narcan) 0.4 mg PRN Q2MIN PRN IV SEE INSTRUCTIONS; Start 05/02/20 at 10:45 Sodium Chloride 1,000 ml @ 25 mls/hr Q24H IV ; Start 05/02/20 at 10:36 Hydromorphone HCl (Dilaudid) 0.2 mg PRN Q1HR PRN IV PAIN Last administered on 05/02/20at 23:22; Start 05/02/20 at 10:45 Ondansetron HCl (Zofran) 4 mg PRN Q6HRS PRN IVP NAUESA, 1ST CHOICE; Start 05/02/20 at 10:45 Fentanyl Citrate (Fentanyl 2ml Vial) 100 mcg STK-MED ONCE .ROUTE ; Start 05/02/20 at 11:46; Stop 05/02/20 at 11:46; Status DC Fentanyl Citrate (Fentanyl 2ml Vial) 100 mcg STK-MED ONCE .ROUTE ; Start 05/02/20 at 12:17; Stop 05/02/20 at 12:17; Status DC Pantoprazole Sodium (Protonix) 40 mg 1X ONCE PO Last administered on 05/02/20at 15:18; Start 05/02/20 at 15:15; Stop 05/02/20 at 15:16; Status DC Atorvastatin Calcium (Lipitor) 10 mg HS PO Last administered on 05/02/20at 21:14; Start 05/02/20 at 21:00 Polyethylene Glycol (miraLAX PACKET) 17 gm PRN DAILY PRN PO CONSTIPATION; Start 05/02/20 at 15:45 Insulin Human Lispro (HumaLOG) 12 units TIDWMEALS SQ Last administered on 05/02/20at 18:22; Start 05/02/20 at 17:30 Insulin Glargine (Lantus Syringe) 20 unit QHS SQ Last administered on 05/02/20at 21:21; Start 05/02/20 at 21:00 Pantoprazole Sodium (Protonix) 40 mg DAILYAC PO ; Start 05/03/20 at 07:30 Vitamin B Complex/ Vitamin C (Johanna-Celia) 1 tab DAILY PO ; Start 05/03/20 at 09:00 Insulin Human Lispro (HumaLOG) 0-7 UNITS TIDACHC SQ Last administered on 05/02/20at 21:21; Start 05/02/20 at 17:30 Dextrose (Dextrose 50%-Water Syringe) 12.5 gm PRN Q15MIN PRN IV SEE COMMENTS; Start 05/02/20 at 15:45 Phenol (Chloraseptic) 1 spray PRN Q2HR PRN PO SORE THROAT; Start 05/02/20 at 17:00 Throat Lozenges (Cepacol Sore Throat Lozenge) 1 afshan PRN Q2HRS PRN PO SORE T HROAT; Start 05/02/20 at 17:00 Calcium Gluconate (Calcium Gluconate) 1,000 mg 1X ONCE IVP Last administered on 05/02/20at 18:55; Start 05/02/20 at 18:30; Stop 05/02/20 at 18:31; Status DC Calcium Gluconate 3000 mg/Dextrose 1,030 ml @ 60 mls/hr [id number] IV Last administered on 05/02/20at 19:24; Start 05/02/20 at 19:00; Stop 05/03/20 at 11:00; Status DC Calcium Gluconate 3000 mg/Dextrose 1,030 ml @ 60 mls/hr [id number] IV ; Start 05/02/20 at 19:00; Status Cancel Calcium Gluconate (Calcium Gluconate) 2,000 mg 1X ONCE IVP Last administered on 05/03/20at 05:15; Start 05/03/20 at 05:30; Stop 05/03/20 at 05:31; Status DC Sodium Chloride 1,000 ml @ 1,000 mls/hr Q1H PRN IV hypotension; Start 05/03/20 at 07:52; Stop 05/03/20 at 13:51 Sodium Chloride 1,000 ml @ 400 mls/hr Q2H30M PRN IV PATENCY; Start 05/03/20 at 07:52; Stop 05/03/20 at 19:51 Info (PHARMACY MONITORING -- do not chart) 1 each PRN DAILY PRN MC SEE COMMENTS; Start 05/03/20 at 08:00 Info (PHARMACY MONITORING -- do not chart) 1 each PRN DAILY PRN MC SEE COMMENTS; Start 05/03/20 at 08:00 Active Scripts Active Reported Miralax (Polyethylene Glycol 3350) 17 Gm Powd.pack 1 Packet PO PRN PRN 2 Days dissolve in water Atorvastatin Calcium 10 Mg Tablet 10 Mg PO HS [auryxia] 630 Mg PO TIDAC Protonix (Pantoprazole Sodium) 20 Mg Tablet.dr 2 Tab PO DAILY Furosemide 80 Mg Tablet 1 Tab PO TID Vitamin D (Cholecalciferol (Vitamin D3)) 5,000 Unit Tablet 5,000 Unit PO DAILY Johanna-Celia Rx Tablet (Vit B Cmplx 3/Fa/Vit C/Biotin) 1 Each Tablet 1 Each PO DAILY Sensipar (Cinacalcet Hcl) 60 Mg Tablet 90 Mg PO DAILY Novolog (Insulin Aspart) 100 Unit/1 Ml Vial 12 Unit SQ TIDAC sliding scale Lantus Solostar (Insulin Glargine,Hum.rec.anlog) 100 Unit/1 Ml Insuln.pen 20 Unit SQ HS Allergies Allergies: Coded Allergies: apple (Verified Allergy, Intermediate, 05/03/20) Penicillins (Verified Adverse Reaction, Mild, Nausea, 05/02/20) ROS General: YES: Fatigue, Malaise PSYCHOLOGICAL ROS: YES: Anxiety Eyes: Yes Decreased vision HEENT: YES: [place] ALLERGY AND IMMUNOLOGY: YES: Seasonal Allergies Respiratory: YES: Cough Gastrointestinal: Yes Nausea, Yes Constipation Genitourinary: YES Other (ANURIA) Musculoskeletal: Yes Muscular Weakness Neurological: Yes Weakness Skin: Yes Dry Skin Physical Exam General: Alert, Oriented X3, Cooperative, No acute distress HEENT: Atraumatic Lungs: Clear to auscultation Heart: Regular rate Abdomen: Normal bowel sounds, No tenderness Extremities: No cyanosis Skin: No breakdown Neuro: Normal speech, Sensation intact Psych/Mental Status: Mental status NL, Mood NL MUSCULOSKELETAL: No joint tenderness, No deformity Vitals VITALS Vital Signs Date Time Temp Pulse Resp B/P (MAP) Pulse Ox O2 Delivery O2 Flow Rate FiO2 05/03/20 07:00 97.4 78 16 125/82 (96) 97 Room Air 97.4 05/02/20 15:20 2.0 Labs Labs Laboratory Tests Test 05/02/20 06:47 05/02/20 10:41 05/02/20 14:39 05/02/20 16:17 Glucose (Fingerstick) 136 mg/dL (70-99) 127 mg/dL (70-99) 408 mg/dL (70-99) 407 mg/dL (70-99) Test 05/02/20 16:22 05/02/20 17:19 05/02/20 19:22 05/02/20 22:12 Calcium Level 7.1 mg/dL (8.5-10.1) 7.2 mg/dL (8.5-10.1) Glucose (Fingerstick) 357 mg/dL (70-99) 215 mg/dL (70-99) White Blood Count 13.0 x10^3/uL (4.0-11.0) Red Blood Count 3.73 x10^6/uL (4.30-5.70) Hemoglobin 11.7 g/dL (13.0-17.5) Hematocrit 34.8 % (39.0-53.0) Mean Corpuscular Volume 93 fL (79-100) Mean Corpuscular Hemoglobin 31 pg (25-35) Mean Corpuscular Hemoglobin Concent 34 g/dL (31-37) Red Cell Distribution Width 13.5 % (11.5-14.5) Platelet Count 270 x10^3/uL (140-400) Neutrophils (%) (Auto) 83 % (31-73) Lymphocytes (%) (Auto) 8 % (24-48) Monocytes (%) (Auto) 8 % (0-9) Eosinophils (%) (Auto) 0 % (0-3) Basophils (%) (Auto) 1 % (0-3) Neutrophils # (Auto) 10.8 x10^3/uL (1.8-7.7) Lymphocytes # (Auto) 1.0 x10^3/uL (1.0-4.8) Monocytes # (Auto) 1.0 x10^3/uL (0.0-1.1) Eosinophils # (Auto) 0.0 x10^3/uL (0.0-0.7) Basophils # (Auto) 0.2 x10^3/uL (0.0-0.2) Sodium Level 136 mmol/L (136-145) Potassium Level 5.0 mmol/L (3.5-5.1) Chloride Level 97 mmol/L (98-107) Carbon Dioxide Level 22 mmol/L (21-32) Anion Gap 17 (6-14) Blood Urea Nitrogen 91 mg/dL (8-26) Creatinine 14.4 mg/dL (0.7-1.3) Estimated GFR (Cockcroft-Gault) 4.6 Glucose Level 107 mg/dL (70-99) Test 05/03/20 04:05 05/03/20 08:29 White Blood Count 12.3 x10^3/uL (4.0-11.0) Red Blood Count 3.60 x10^6/uL (4.30-5.70) Hemoglobin 11.4 g/dL (13.0-17.5) Hematocrit 34.0 % (39.0-53.0) Mean Corpuscular Volume 94 fL (79-100) Mean Corpuscular Hemoglobin 32 pg (25-35) Mean Corpuscular Hemoglobin Concent 33 g/dL (31-37) Red Cell Distribution Width 13.5 % (11.5-14.5) Platelet Count 266 x10^3/uL (140-400) Neutrophils (%) (Auto) 80 % (31-73) Lymphocytes (%) (Auto) 9 % (24-48) Monocytes (%) (Auto) 9 % (0-9) Eosinophils (%) (Auto) 1 % (0-3) Basophils (%) (Auto) 1 % (0-3) Neutrophils # (Auto) 9.9 x10^3/uL (1.8-7.7) Lymphocytes # (Auto) 1.1 x10^3/uL (1.0-4.8) Monocytes # (Auto) 1.1 x10^3/uL (0.0-1.1) Eosinophils # (Auto) 0.2 x10^3/uL (0.0-0.7) Basophils # (Auto) 0.1 x10^3/uL (0.0-0.2) Sodium Level 133 mmol/L (136-145) Potassium Level 4.8 mmol/L (3.5-5.1) Chloride Level 96 mmol/L (98-107) Carbon Dioxide Level 22 mmol/L (21-32) Anion Gap 15 (6-14) Blood Urea Nitrogen 93 mg/dL (8-26) Creatinine 15.0 mg/dL (0.7-1.3) Estimated GFR (Cockcroft-Gault) 4.4 Glucose Level 174 mg/dL (70-99) Calcium Level 6.6 mg/dL (8.5-10.1) Glucose (Fingerstick) 175 mg/dL (70-99) Laboratory Tests Test 05/02/20 14:39 05/02/20 16:17 05/02/20 16:22 05/02/20 17:19 Glucose (Fingerstick) 408 mg/dL (70-99) 407 mg/dL (70-99) 357 mg/dL (70-99) Calcium Level 7.1 mg/dL (8.5-10.1) Test 05/02/20 19:22 05/02/20 22:12 05/03/20 04:05 05/03/20 08:29 Glucose (Fingerstick) 215 mg/dL (70-99) 175 mg/dL (70-99) White Blood Count 13.0 x10^3/uL (4.0-11.0) 12.3 x10^3/uL (4.0-11.0) Red Blood Count 3.73 x10^6/uL (4.30-5.70) 3.60 x10^6/uL (4.30-5.70) Hemoglobin 11.7 g/dL (13.0-17.5) 11.4 g/dL (13.0-17.5) Hematocrit 34.8 % (39.0-53.0) 34.0 % (39.0-53.0) Mean Corpuscular Volume 93 fL (79-100) 94 fL (79-100) Mean Corpuscular Hemoglobin 31 pg (25-35) 32 pg (25-35) Mean Corpuscular Hemoglobin Concent 34 g/dL (31-37) 33 g/dL (31-37) Red Cell Distribution Width 13.5 % (11.5-14.5) 13.5 % (11.5-14.5) Platelet Count 270 x10^3/uL (140-400) 266 x10^3/uL (140-400) Neutrophils (%) (Auto) 83 % (31-73) 80 % (31-73) Lymphocytes (%) (Auto) 8 % (24-48) 9 % (24-48) Monocytes (%) (Auto) 8 % (0-9) 9 % (0-9) Eosinophils (%) (Auto) 0 % (0-3) 1 % (0-3) Basophils (%) (Auto) 1 % (0-3) 1 % (0-3) Neutrophils # (Auto) 10.8 x10^3/uL (1.8-7.7) 9.9 x10^3/uL (1.8-7.7) Lymphocytes # (Auto) 1.0 x10^3/uL (1.0-4.8) 1.1 x10^3/uL (1.0-4.8) Monocytes # (Auto) 1.0 x10^3/uL (0.0-1.1) 1.1 x10^3/uL (0.0-1.1) Eosinophils # (Auto) 0.0 x10^3/uL (0.0-0.7) 0.2 x10^3/uL (0.0-0.7) Basophils # (Auto) 0.2 x10^3/uL (0.0-0.2) 0.1 x10^3/uL (0.0-0.2) Sodium Level 136 mmol/L (136-145) 133 mmol/L (136-145) Potassium Level 5.0 mmol/L (3.5-5.1) 4.8 mmol/L (3.5-5.1) Chloride Level 97 mmol/L (98-107) 96 mmol/L (98-107) Carbon Dioxide Level 22 mmol/L (21-32) 22 mmol/L (21-32) Anion Gap 17 (6-14) 15 (6-14) Blood Urea Nitrogen 91 mg/dL (8-26) 93 mg/dL (8-26) Creatinine 14.4 mg/dL (0.7-1.3) 15.0 mg/dL (0.7-1.3) Estimated GFR (Cockcroft-Gault) 4.6 4.4 Glucose Level 107 mg/dL (70-99) 174 mg/dL (70-99) Calcium Level 7.2 mg/dL (8.5-10.1) 6.6 mg/dL (8.5-10.1) Assessment/Plan Assessment/Plan IMP ESRD S/P SUBTOTAL PARATHYROIDECTOMY HYPOCALCEMIA-HUNGRY BONES ANEMIA DM II HTN PLAN HD TODAY UF TO DW LEOPOLDO WHEN NEEDED SUPPLEMENT CALCIUM D/W ATTENDING ARIANNE UMANA MD May 03, 2020 11:37
[2020-05-03] MEDS: FOLIC/VIT B COMP W-C (RENAL) TABLET. PO SCH (13:16)
[2020-05-03] MEDS: IV NORMAL SALINE 1000ML BAG 1,000 ML IV SCH ×2 (14:38→14:47)
[2020-05-03 15:00] VITALS: BP 125/73
--- NOTE | 2020-05-03 15:02 | NUR ---
SS following for discharge planning. SS reviewed pt chart and discussed with pt RN. Pt is from home with spouse and is currently on room air. Pt had surgery on 05/02/2020. Pt on full liquid diet. SS will continue to follow for discharge planning.
[2020-05-03] MEDS: ONDANSETRON PF 4 MG/2 ML VIAL. IVP PRN (16:59)
[2020-05-03] MEDS: CALCIUM CARB/VIT D3 500/200 TABLET. PO SCH (17:00)
--- NOTE | 2020-05-03 17:07 | PATHOLOGY ---
[facility] Accession Number: [id number] . 01 Material submitted: . PART A: parathyroid gland - LEFT INFERIOR PARATHYROID TISSUE - FS. Modifiers: left, inferior PART B: parathyroid gland - LEFT SUPERIOR PARATHYROID TISSUE - FS. Modifiers: left, superior PART C: parathyroid gland - RIGHT INFERIOR PARATHYROID TISSUE - FS. Modifiers: right, inferior PART D: parathyroid gland - RIGHT SUPERIOR PARATHYROID TISSUE - FS. Modifiers: right, superior PART E: thyroid gland - LEFT INFERIOR THYROID NODULE - FS. Modifiers: left, inferior PART F: parathyroid gland - LEFT INFERIOR PARATHYROID GLAND. Modifiers: left, inferior PART G: parathyroid gland - LEFT SUPERIOR PARATHYROID GLAND. Modifiers: left, superior PART H: parathyroid gland - SUBTOTAL RIGHT PARATHYROID GLAND. Modifiers: right PART I: parathyroid gland - RIGHT SUPERIOR PARATHYROID GLAND. Modifiers: right, superior . 01 Clinical history: . Hyperparathyroidism . 02 Frozen section diagnosis: . FROZEN SECTION DIAGNOSIS: FSA1. Parathyroid "left inferior", excision: - Hypercellular parathyroid tissue. . FSB1. Parathyroid "left superior", excision: - Hypercellular parathyroid. . FSC1. Parathyroid "right inferior", excision: - Hypercellular parathyroid. . FSD1. Parathyroid "right superior", excision: - Hypercellular parathyroid. . FSE1. Thyroid "left inferior thyroid nodule", biopsy: - Follicular lesion, arising in a background of chronic lymphocytic thyroiditis. . The case is discussed with Dr. Supa Villanueva via telephone intraoperatively and a progress note is placed in the patient's chart. (MLK:deandra/benito; 05/02/2020) . . FROZEN SECTION GROSS DESCRIPTION: A. Received fresh from the operating room labeled "left inferior parathyroid tissue", is a light pinkish-florian piece of tissue measuring 0.5 cm in greatest dimension and having a weight of 0.011 grams. The tissue is frozen and submitted in its entirety in cassette A1. . B. Received fresh from the operating labeled "left superior parathyroid tissue", is a 0.7 cm piece of pinkish-florian tissue which weighs 0.040 grams. The tissue is frozen and submitted in its entirety in cassette B1. . C. Received fresh from the operating room labeled "right inferior parathyroid tissue", is a 0.5 cm pinkish-florian piece of tissue which weighs 0.025 grams. The tissue is frozen and submitted in its entirety in cassette labeled C1. . D. Received fresh from the operating room labeled "right superior parathyroid tissue", is a 0.7 cm light pink-florian piece of tissue which weighs 0.052 grams. The tissue is frozen and submitted in its entirety in cassette D1. . E. Received fresh from the operating room labeled "left inferior thyroid nodule" is a 2.9 x 1.8 x 1.3 cm piece of thyroid tissue. The capsular surface is somewhat rough. The surgical margin is inked. Serially sectioning the specimen reveals a nodule which has a glistening [id number] nodular appearance. One section is frozen and submitted in cassette E1. The remaining tissue is submitted in cassettes E2 through E4. (MLK:deandra; 05/02/2020) . Frozen section performed at [facility], [address] [place] [address]. IND/MBR . 02 Diagnosis: A. Left inferior parathyroid biopsy: - Hypercellular parathyroid tissue. . B. Left superior parathyroid biopsy: - Hypercellular parathyroid tissue. . C. Right inferior parathyroid biopsy: - Hypercellular parathyroid tissue. . D. Right superior parathyroid biopsy: - Hypercellular parathyroid tissue. . E. Thyroid tissue, left inferior thyroid nodule excision: - Adenomatous nodule. - Chronic inflammation, patchy, mild. . F. Left inferior parathyroid gland, excision: - Parathyroid hyperplasia. . G. Left superior parathyroid gland, excision: - Parathyroid hyperplasia. . H. Right inferior parathyroid gland, subtotal excision: - Parathyroid hyperplasia. . I. Right superior parathyroid gland, excision: - Parathyroid hyperplasia. (JPM:benito; 05/03/2020) S 05/03/2020 1625 Local . 02 Comment: Sections of all four parathyroid glands reveal hypercellular parathyroid tissue, consistent with parathyroid hyperplasia. There is, however, asymmetric enlargement of the parathyroid glands. The left inferior parathyroid gland and right inferior parathyroid gland are much larger than the left superior and right superior parathyroid glands. . Sections of the left inferior thyroid nodule excision reveal an adenomatous nodule. There is no evidence of malignancy. (JPM:benito; 05/03/2020) . 02 Electronically signed: . Osbaldo Yeung MD, Pathologist NPI- [id number] . 01 Gross description: . A-E. PLEASE SEE GROSS DESCRIPTION DICTATED UNDER FROZEN SECTION. . F. The specimen is received in formalin, labeled "Excell Villa Jr., left inferior parathyroid gland". Received is a 2 g segment of pink-florian glandular tissue measuring 2.3 x 1.1 x 0.7 cm in greatest dimensions. The surgical margin is inked. The specimen is bisected and entirely submitted in cassette F1. . G. The specimen is received in formalin, labeled "Excell Villa Jr., left superior parathyroid gland". Received is a 1 g segment of yellow-florian lobulated tissue measuring 1.6 x 1.5 x 0.5 cm in greatest dimensions. The surgical margin is inked. Sectioning reveals a nodule of pink-florian glandular tissue measuring 0.6 cm in maximum dimensions. The specimen is bisected and entirely submitted in cassette G1. . H. The specimen is received in formalin, labeled "Excell Villa Jr., subtotal right parathyroid". Received is a 1 g segment of pink-florian glandular tissue measuring 1.8 x 1.4 x 0.6 cm in greatest dimensions. The surgical margin is inked. Sectioning reveals pale florian, glandular cut surfaces throughout. The specimen is bisected and entirely submitted in cassette H1. . I. The specimen is received in formalin, labeled "Excell Villa Jr., right superior parathyroid gland". Received is a 1 g segment of yellow-florian to pale florian tissue measuring 2.1 x 1.3 x 0.5 cm in greatest dimensions. The surgical margin is inked. Sectioning reveals a nodule of light florian glandular tissue measuring 0.8 cm in maximum dimensions. The specimen is bisected and entirely submitted in cassette I1. (CAA; 05/02/2020) QAC/MBR 05/03/2020 1507 Local . 02 Pathologist provided ICD-10: E04.1, E06.5, E21.0 . 02 CPT . 343860, 953432, 784692, 496727, 207143, 696491, 664680, 515738, 776944, 823656, 687634, 772717, 492928, 585795 Specimen Comment: A courtesy copy of this report has been sent to [phone] Specimen Comment: [id number] Specimen Comment: Report sent to / DR BLANCO Performed at: 01 [facility] [address], [place] [id number] MD Olivier Pritchard MD Phone: [phone] Performed at: 02 [facility] [place] [address] [place], [place] [id number] MD Osbaldo Yeung MD Phone: [phone]
[2020-05-03 19:00] VITALS: BP 119/75
[2020-05-03] MEDS: ATORVASTATIN CALCIUM 10 MG TABLET. PO SCH (21:27)
[2020-05-03] MEDS: INSULIN GLARGINE SYRINGE. SQ SCH (21:33)
[2020-05-03 23:29] VITALS: BP 137/88
[2020-05-03] MEDS: CALCIUM GLUCONATE IV SCH (23:32)
[2020-05-03] MEDS: DEXTROSE 5% IV SCH (23:32)
[2020-05-04 03:00] VITALS: BP 113/65
[2020-05-04 04:52] LABS: ALBUMIN 2.8 g/dL (3.4-5.0); ALBUMIN/GLOBULIN RATIO 0.7 (1.0-1.7); CREATININE 10.1 mg/dL (0.7-1.3); MAGNESIUM 2.1 mg/dL (1.8-2.4); PHOSPHORUS 4.5 mg/dL (2.6-4.7); POTASSIUM 4.3 mmol/L (3.5-5.1); TOTAL BILIRUBIN 0.4 mg/dL (0.2-1.0); TOTAL PROTEIN 6.8 g/dL (6.4-8.2)
[2020-05-04 07:00] VITALS: BP 134/82
[2020-05-04] MEDS: INSULIN LISPRO 300 UNITS/3 ML VIAL. SQ SCH ×7 (07:30→22:06)
[2020-05-04] MEDS: FOLIC/VIT B COMP W-C (RENAL) TABLET. PO SCH (09:53)
[2020-05-04] MEDS: CALCIUM CARB/VIT D3 500/200 TABLET. PO SCH ×2 (09:53→17:00)
[2020-05-04] MEDS: PANTOPRAZOLE 40 MG TABLET.DR. PO SCH ×2 (09:53→20:48)
[2020-05-04] MEDS: oxyCODONE/APAP 5/325 1 TAB TABLET PO PRN (10:03)
[2020-05-04 11:00] VITALS: BP 156/95
--- NOTE | 2020-05-04 11:17 | PDOC ---
Renal-Progress Notes Subjective Notes Notes NO NEW COMPLAINTS History of Present Illness Hx of present illness STABLE Vitals Vitals Vital Signs Date Time Temp Pulse Resp B/P (MAP) Pulse Ox O2 Delivery O2 Flow Rate FiO2 05/04/20 07:00 98.2 86 16 134/82 (99) 96 Room Air 98.2 Weight Weight [ ] I.O. Intake and Output Intake and Output 05/04/20 07:00 Intake Total 0 ml Balance 0 ml Intake Oral 0 ml # Voids 1 Labs Labs Laboratory Tests Test 05/03/20 13:23 05/03/20 16:27 05/03/20 16:58 05/03/20 20:29 Glucose (Fingerstick) 169 mg/dL (70-99) 157 mg/dL (70-99) 95 mg/dL (70-99) Calcium Level 7.9 mg/dL (8.5-10.1) Test 05/03/20 22:10 05/04/20 03:45 05/04/20 07:55 05/04/20 09:45 Calcium Level 6.8 mg/dL (8.5-10.1) 7.0 mg/dL (8.5-10.1) 6.9 mg/dL (8.5-10.1) Sodium Level 134 mmol/L (136-145) Potassium Level 4.3 mmol/L (3.5-5.1) Chloride Level 95 mmol/L (98-107) Carbon Dioxide Level 28 mmol/L (21-32) Anion Gap 11 (6-14) Blood Urea Nitrogen 41 mg/dL (8-26) Creatinine 10.1 mg/dL (0.7-1.3) Estimated GFR (Cockcroft-Gault) 7.0 BUN/Creatinine Ratio 4 (6-20) Glucose Level 94 mg/dL (70-99) Phosphorus Level 4.5 mg/dL (2.6-4.7) Magnesium Level 2.1 mg/dL (1.8-2.4) Total Bilirubin 0.4 mg/dL (0.2-1.0) Aspartate Amino Transf (AST/SGOT) 14 U/L (15-37) Alanine Aminotransferase (ALT/SGPT) 12 U/L (16-63) Alkaline Phosphatase 362 U/L (46-116) Total Protein 6.8 g/dL (6.4-8.2) Albumin 2.8 g/dL (3.4-5.0) Albumin/Globulin Ratio 0.7 (1.0-1.7) Glucose (Fingerstick) 163 mg/dL (70-99) Review of Systems Constitutional: yes: alert, oriented Ears/Nose/Throat: Yes: no symptom reported Eyes: Yes: no symptom reported Pulmonary: Yes no symptom reported Cardiovascular: Yes no symptom reported Gastrointestional: Yes: no symptom reported Genitourinary: Yes: no symptom reported Musculoskeletal: Yes: no symptom reported Skin: Yes no symptom reported Psychiatric/Neurological: Yes: no symptom reported Endocrine: Yes: no symptom reported Physical Exam General Appearance: no apparent distress Skin: warm Respiratory: bilateral CTA Heart: S1S2 Abdomen: soft, bowel sounds present Genitourinary: bladder flat Extremities: pulses present Neurology: alert Musculoskeletal: Other Assessment Assessment IMP ESRD S/P SUBTOTAL PARATHYROIDECTOMY HYPOCALCEMIA-HUNGRY BONES ANEMIA DM II HTN PLAN HD TOMORROW LEOPOLDO WHEN NEEDED SUPPLEMENT CALCIUM D/W ATTENDING ARIANNE UMANA MD May 04, 2020 11:16
[2020-05-04] MEDS: CALCIUM GLUCONATE IV SCH ×2 (12:12→23:02)
[2020-05-04] MEDS: DEXTROSE 5% IV SCH ×2 (12:12→23:02)
--- NOTE | 2020-05-04 13:54 | NUR ---
SS following up with discharge planning. SS reviewed pt chart and discussed with pt RN. Pt is currently on room air. Pt has outpatient dialysis at [facility], ; fax [phone], Saturday, Saturday, and Saturday. Pt advancing diet. Discharge plan is to home when ready. SS will continue to follow for discharge planning.
--- NOTE | 2020-05-04 13:55 | PDOC ---
PROGRESS NOTES Chief Complaint Chief Complaint Assessment/Plan Assessment/Plan A/P: Secondary hyperparathyroidism - s/p left inferior/superior, right superior and right inferior sub-total parathyroidectomy and left inferior thyroid nodule resection. Q6hour calcium monitoring. ESRD - was on PD ,switched to HD - [facility]. Dr. Parks is his primary elementary esl teacher. Consulted for HD management. Getting eval for renal Tx at [facility] DM2 with Blood Glucose very high - will give 25u TID and glargine per home regimen Chronic Diastolic CHF-Stable, On R HTN- continue antihypertensives GERD - will cont PPI HLD - cont statin GALINDO on CPAP - cont inpatient Anemia of chronic renal insufficiency - stable FEN - Renal ADA diet PPX - heparin with dialysis FULL CODE Dispo - inpatient for calcium monitoring, needs telemetry. electrolyte management as per nephrology business development consultant History of Present Illness History of Present Illness History of Present Illness Reason for Visit: Mr Villa is a 40 yo M w/ PMHx HTN, HLD, GALINDO on CPAP, DM2 on insulin, ESRD on HD (previously on PD), anemia of chronic renal insufficiency, and recent diagnosis of secondary hyperparathyroidism who is admitted today for post-operative management and calcium monitoring after symptomatic hypeparathyroidism with a left inferior/superior, right superior and right inferior sub-total parathyroidectomy and left inferior thyroid nodule resection. Glucose 408 and has as sore throat post-operatively 05/04/2020 No acute events reported overnight, case discussed with nursing staff patient in no acute distress no complaints during my visit Vitals Vitals Vital Signs Date Time Temp Pulse Resp B/P (MAP) Pulse Ox O2 Delivery O2 Flow Rate FiO2 05/04/20 11:00 98.0 79 16 156/95 (115) 99 Room Air 98.0 Physical Exam General: Alert, Oriented X3, Cooperative Heart: Regular rate Lungs: Clear Abdomen: Normal bowel sounds, No tenderness Extremities: No cyanosis Skin: No breakdown Labs LABS Laboratory Tests Test 05/03/20 16:27 05/03/20 16:58 05/03/20 20:29 05/03/20 22:10 Calcium Level 7.9 mg/dL (8.5-10.1) 6.8 mg/dL (8.5-10.1) Glucose (Fingerstick) 157 mg/dL (70-99) 95 mg/dL (70-99) Test 05/04/20 03:45 05/04/20 07:55 05/04/20 09:45 05/04/20 11:44 Sodium Level 134 mmol/L (136-145) Potassium Level 4.3 mmol/L (3.5-5.1) Chloride Level 95 mmol/L (98-107) Carbon Dioxide Level 28 mmol/L (21-32) Anion Gap 11 (6-14) Blood Urea Nitrogen 41 mg/dL (8-26) Creatinine 10.1 mg/dL (0.7-1.3) Estimated GFR (Cockcroft-Gault) 7.0 BUN/Creatinine Ratio 4 (6-20) Glucose Level 94 mg/dL (70-99) Calcium Level 7.0 mg/dL (8.5-10.1) 6.9 mg/dL (8.5-10.1) Phosphorus Level 4.5 mg/dL (2.6-4.7) Magnesium Level 2.1 mg/dL (1.8-2.4) Total Bilirubin 0.4 mg/dL (0.2-1.0) Aspartate Amino Transf (AST/SGOT) 14 U/L (15-37) Alanine Aminotransferase (ALT/SGPT) 12 U/L (16-63) Alkaline Phosphatase 362 U/L (46-116) Total Protein 6.8 g/dL (6.4-8.2) Albumin 2.8 g/dL (3.4-5.0) Albumin/Globulin Ratio 0.7 (1.0-1.7) Glucose (Fingerstick) 163 mg/dL (70-99) 129 mg/dL (70-99) Review of Systems Review of Systems 10 point review of system negative only pertinent as per HPI Comment Review of Relevant I have reviewed the following items javy (where applicable) has been applied. Labs Laboratory Tests Test 05/02/20 14:39 05/02/20 16:17 05/02/20 16:22 05/02/20 17:19 Glucose (Fingerstick) 408 mg/dL (70-99) 407 mg/dL (70-99) 357 mg/dL (70-99) Calcium Level 7.1 mg/dL (8.5-10.1) Test 05/02/20 19:22 05/02/20 22:12 05/03/20 04:05 05/03/20 08:29 Glucose (Fingerstick) 215 mg/dL (70-99) 175 mg/dL (70-99) White Blood Count 13.0 x10^3/uL (4.0-11.0) 12.3 x10^3/uL (4.0-11.0) Red Blood Count 3.73 x10^6/uL (4.30-5.70) 3.60 x10^6/uL (4.30-5.70) Hemoglobin 11.7 g/dL (13.0-17.5) 11.4 g/dL (13.0-17.5) Hematocrit 34.8 % (39.0-53.0) 34.0 % (39.0-53.0) Mean Corpuscular Volume 93 fL (79-100) 94 fL (79-100) Mean Corpuscular Hemoglobin 31 pg (25-35) 32 pg (25-35) Mean Corpuscular Hemoglobin Concent 34 g/dL (31-37) 33 g/dL (31-37) Red Cell Distribution Width 13.5 % (11.5-14.5) 13.5 % (11.5-14.5) Platelet Count 270 x10^3/uL (140-400) 266 x10^3/uL (140-400) Neutrophils (%) (Auto) 83 % (31-73) 80 % (31-73) Lymphocytes (%) (Auto) 8 % (24-48) 9 % (24-48) Monocytes (%) (Auto) 8 % (0-9) 9 % (0-9) Eosinophils (%) (Auto) 0 % (0-3) 1 % (0-3) Basophils (%) (Auto) 1 % (0-3) 1 % (0-3) Neutrophils # (Auto) 10.8 x10^3/uL (1.8-7.7) 9.9 x10^3/uL (1.8-7.7) Lymphocytes # (Auto) 1.0 x10^3/uL (1.0-4.8) 1.1 x10^3/uL (1.0-4.8) Monocytes # (Auto) 1.0 x10^3/uL (0.0-1.1) 1.1 x10^3/uL (0.0-1.1) Eosinophils # (Auto) 0.0 x10^3/uL (0.0-0.7) 0.2 x10^3/uL (0.0-0.7) Basophils # (Auto) 0.2 x10^3/uL (0.0-0.2) 0.1 x10^3/uL (0.0-0.2) Sodium Level 136 mmol/L (136-145) 133 mmol/L (136-145) Potassium Level 5.0 mmol/L (3.5-5.1) 4.8 mmol/L (3.5-5.1) Chloride Level 97 mmol/L (98-107) 96 mmol/L (98-107) Carbon Dioxide Level 22 mmol/L (21-32) 22 mmol/L (21-32) Anion Gap 17 (6-14) 15 (6-14) Blood Urea Nitrogen 91 mg/dL (8-26) 93 mg/dL (8-26) Creatinine 14.4 mg/dL (0.7-1.3) 15.0 mg/dL (0.7-1.3) Estimated GFR (Cockcroft-Gault) 4.6 4.4 Glucose Level 107 mg/dL (70-99) 174 mg/dL (70-99) Calcium Level 7.2 mg/dL (8.5-10.1) 6.6 mg/dL (8.5-10.1) Test 05/03/20 13:23 05/03/20 16:27 05/03/20 16:58 05/03/20 20:29 Glucose (Fingerstick) 169 mg/dL (70-99) 157 mg/dL (70-99) 95 mg/dL (70-99) Calcium Level 7.9 mg/dL (8.5-10.1) Test 05/03/20 22:10 05/04/20 03:45 05/04/20 07:55 05/04/20 09:45 Calcium Level 6.8 mg/dL (8.5-10.1) 7.0 mg/dL (8.5-10.1) 6.9 mg/dL (8.5-10.1) Sodium Level 134 mmol/L (136-145) Potassium Level 4.3 mmol/L (3.5-5.1) Chloride Level 95 mmol/L (98-107) Carbon Dioxide Level 28 mmol/L (21-32) Anion Gap 11 (6-14) Blood Urea Nitrogen 41 mg/dL (8-26) Creatinine 10.1 mg/dL (0.7-1.3) Estimated GFR (Cockcroft-Gault) 7.0 BUN/Creatinine Ratio 4 (6-20) Glucose Level 94 mg/dL (70-99) Phosphorus Level 4.5 mg/dL (2.6-4.7) Magnesium Level 2.1 mg/dL (1.8-2.4) Total Bilirubin 0.4 mg/dL (0.2-1.0) Aspartate Amino Transf (AST/SGOT) 14 U/L (15-37) Alanine Aminotransferase (ALT/SGPT) 12 U/L (16-63) Alkaline Phosphatase 362 U/L (46-116) Total Protein 6.8 g/dL (6.4-8.2) Albumin 2.8 g/dL (3.4-5.0) Albumin/Globulin Ratio 0.7 (1.0-1.7) Glucose (Fingerstick) 163 mg/dL (70-99) Test 05/04/20 11:44 Glucose (Fingerstick) 129 mg/dL (70-99) Laboratory Tests Test 05/03/20 16:27 05/03/20 16:58 05/03/20 20:29 05/03/20 22:10 Calcium Level 7.9 mg/dL (8.5-10.1) 6.8 mg/dL (8.5-10.1) Glucose (Fingerstick) 157 mg/dL (70-99) 95 mg/dL (70-99) Test 05/04/20 03:45 05/04/20 07:55 05/04/20 09:45 05/04/20 11:44 Sodium Level 134 mmol/L (136-145) Potassium Level 4.3 mmol/L (3.5-5.1) Chloride Level 95 mmol/L (98-107) Carbon Dioxide Level 28 mmol/L (21-32) Anion Gap 11 (6-14) Blood Urea Nitrogen 41 mg/dL (8-26) Creatinine 10.1 mg/dL (0.7-1.3) Estimated GFR (Cockcroft-Gault) 7.0 BUN/Creatinine Ratio 4 (6-20) Glucose Level 94 mg/dL (70-99) Calcium Level 7.0 mg/dL (8.5-10.1) 6.9 mg/dL (8.5-10.1) Phosphorus Level 4.5 mg/dL (2.6-4.7) Magnesium Level 2.1 mg/dL (1.8-2.4) Total Bilirubin 0.4 mg/dL (0.2-1.0) Aspartate Amino Transf (AST/SGOT) 14 U/L (15-37) Alanine Aminotransferase (ALT/SGPT) 12 U/L (16-63) Alkaline Phosphatase 362 U/L (46-116) Total Protein 6.8 g/dL (6.4-8.2) Albumin 2.8 g/dL (3.4-5.0) Albumin/Globulin Ratio 0.7 (1.0-1.7) Glucose (Fingerstick) 163 mg/dL (70-99) 129 mg/dL (70-99) Medications Current Medications Ondansetron HCl (Zofran) 4 mg PRN Q6HRS PRN IV NAUSEA/VOMITING; Start 05/02/20 at 07:00; Stop 05/03/20 at 06:59; Status DC Fentanyl Citrate (Fentanyl 2ml Vial) 25 mcg PRN Q5MIN PRN IV MILD PAIN 1-3; Start 05/02/20 at 07:00; Stop 05/03/20 at 06:59; Status DC Fentanyl Citrate (Fentanyl 2ml Vial) 50 mcg PRN Q5MIN PRN IV MODERATE TO SEVERE PAIN Last administered on 05/02/20at 13:27; Start 05/02/20 at 07:00; Stop 05/03/20 at 06:59; Status DC Morphine Sulfate (Morphine Sulfate) 1 mg PRN Q10MIN PRN IV SEVERE PAIN 7-10; Start 05/02/20 at 07:00; Stop 05/03/20 at 06:59; Status DC Ringer's Solution 1,000 ml @ 30 mls/hr Q24H IV ; Start 05/02/20 at 07:00; Stop 05/02/20 at 18:59; Status DC Lidocaine HCl (Xylocaine-Mpf 1% 2ml Vial) 2 ml PRN 1X PRN ID PRIOR TO IV START; Start 05/02/20 at 07:00; Stop 05/03/20 at 06:59; Status DC Hydromorphone HCl (Dilaudid) 0.5 mg PRN Q10MIN PRN IV SEV PAIN, Second choice; Start 05/02/20 at 07:00; Stop 05/03/20 at 06:59; Status DC Prochlorperazine Edisylate (Compazine) 5 mg PACU PRN PRN IV NAUSEA, MRX1; Start 05/02/20 at 07:00; Stop 05/03/20 at 06:59; Status DC Cefazolin Sodium/ Dextrose 50 ml @ 100 mls/hr 1X PREOP PRN IV PRIOR TO PROCEDURE Last administered on 05/02/20at 07:40; Start 05/02/20 at 08:00; Stop 05/02/20 at 18:00; Status DC Insulin Human Lispro (HumaLOG VIAL for OP,RR ONLY) 0-10 units PRN Q1HR PRN SQ PER PROTOCOL Last administered on 05/02/20at 16:21; Start 05/02/20 at 07:15; Stop 05/03/20 at 07:14; Status DC Sodium Chloride 1,000 ml @ 0 mls/hr Q0M IV Last administered on 05/02/20at 07:24; Start 05/02/20 at 07:15 Propofol (Diprivan) 200 mg STK-MED ONCE IV ; Start 05/02/20 at 07:32; Stop 05/02/20 at 07:32; Status DC Lidocaine HCl (Xylocaine-Mpf 1% 5ml Vial) 5 ml STK-MED ONCE .ROUTE ; Start 05/02/20 at 07:32; Stop 05/02/20 at 07:32; Status DC Midazolam HCl (Versed) 2 mg STK-MED ONCE .ROUTE ; Start 05/02/20 at 07:32; Stop 05/02/20 at 07:33; Status DC Fentanyl Citrate (Fentanyl 5ml Vial) 250 mcg STK-MED ONCE .ROUTE ; Start 05/02/20 at 07:32; Stop 05/02/20 at 07:33; Status DC Succinylcholine Chloride (Anectine) 200 mg STK-MED ONCE .ROUTE ; Start 05/02/20 at 07:33; Stop 05/02/20 at 07:33; Status DC Ondansetron HCl (Zofran) 4 mg STK-MED ONCE .ROUTE ; Start 05/02/20 at 07:36; Stop 05/02/20 at 07:36; Status DC Dexamethasone Sodium Phosphate (Decadron) 4 mg STK-MED ONCE .ROUTE ; Start 05/02/20 at 07:36; Stop 05/02/20 at 07:36; Status DC Desflurane (Suprane) 60 ml STK-MED ONCE IH ; Start 05/02/20 at 07:52; Stop 05/02/20 at 07:52; Status DC Sevoflurane (Ultane) 60 ml STK-MED ONCE IH ; Start 05/02/20 at 07:52; Stop 05/02/20 at 07:52; Status DC Rocuronium Mobile (Zemuron) 50 mg STK-MED ONCE .ROUTE ; Start 05/02/20 at 07:56; Stop 05/02/20 at 07:57; Status DC Dexamethasone Sodium Phosphate (Decadron) 4 mg STK-MED ONCE .ROUTE ; Start 05/02/20 at 08:11; Stop 05/02/20 at 08:11; Status DC Phenylephrine HCl (PHENYLEPHRINE in 0.9% NACL PF) 1 mg STK-MED ONCE IV ; Start 05/02/20 at 08:11; Stop 05/02/20 at 08:11; Status DC Ephedrine Sulfate (ePHEDrine PF IN SALINE SYRINGE) 50 mg STK-MED ONCE IV ; Start 05/02/20 at 08:11; Stop 05/02/20 at 08:11; Status DC Phenylephrine HCl (Ham-Synephrine Inj) 10 mg STK-MED ONCE .ROUTE ; Start 05/02/20 at 08:12; Stop 05/02/20 at 08:13; Status DC Sodium Chloride (Normal Saline Flush) 3 ml QSHIFT PRN IV AFTER MEDS AND BLOOD DRAWS; Start 05/02/20 at 10:45 Sodium Chloride 1,000 ml @ 60 mls/hr [id number] IV ; Start 05/02/20 at 10:36; Stop 05/04/20 at 11:17; Status DC Oxycodone/ Acetaminophen (Percocet 5/325) 1 tab PRN Q4HRS PRN PO MILD PAIN, 1ST CHOICE Last administered on 05/04/20at 10:03; Start 05/02/20 at 10:45 Oxycodone/ Acetaminophen (Percocet 5/325) 2 tab PRN Q4HRS PRN PO MODERATE PAIN, SEVERE PAIN Last administered on 05/03/20at 13:18; Start 05/02/20 at 10:45 Naloxone HCl (Narcan) 0.4 mg PRN Q2MIN PRN IV SEE INSTRUCTIONS; Start 05/02/20 at 10:45 Sodium Chloride 1,000 ml @ 25 mls/hr Q24H IV ; Start 05/02/20 at 10:36 Hydromorphone HCl (Dilaudid) 0.2 mg PRN Q1HR PRN IV PAIN Last administered on 05/02/20at 23:22; Start 05/02/20 at 10:45 Ondansetron HCl (Zofran) 4 mg PRN Q6HRS PRN IVP NAUESA, 1ST CHOICE Last administered on 05/03/20at 16:59; Start 05/02/20 at 10:45 Fentanyl Citrate (Fentanyl 2ml Vial) 100 mcg STK-MED ONCE .ROUTE ; Start 05/02/20 at 11:46; Stop 05/02/20 at 11:46; Status DC Fentanyl Citrate (Fentanyl 2ml Vial) 100 mcg STK-MED ONCE .ROUTE ; Start 05/02/20 at 12:17; Stop 05/02/20 at 12:17; Status DC Pantoprazole Sodium (Protonix) 40 mg 1X ONCE PO Last administered on 05/02/20at 15:18; Start 05/02/20 at 15:15; Stop 05/02/20 at 15:16; Status DC Atorvastatin Calcium (Lipitor) 10 mg HS PO Last administered on 05/03/20at 21:27; Start 05/02/20 at 21:00 Polyethylene Glycol (miraLAX PACKET) 17 gm PRN DAILY PRN PO CONSTIPATION; Start 05/02/20 at 15:45 Insulin Human Lispro (HumaLOG) 12 units TIDWMEALS SQ Last administered on 05/04/20at 12:23; Start 05/02/20 at 17:30 Insulin Glargine (Lantus Syringe) 20 unit QHS SQ Last administered on 05/03/20at 21:33; Start 05/02/20 at 21:00 Pantoprazole Sodium (Protonix) 40 mg DAILYAC PO Last administered on 05/03/20at 13:17; Start 05/03/20 at 07:30; Stop 05/03/20 at 22:01; Status DC Vitamin B Complex/ Vitamin C (Johanna-Celia) 1 tab DAILY PO Last administered on 05/04/20at 09:53; Start 05/03/20 at 09:00 Insulin Human Lispro (HumaLOG) 0-7 UNITS TIDACHC SQ Last administered on 05/03/20at 13:27; Start 05/02/20 at 17:30 Dextrose (Dextrose 50%-Water Syringe) 12.5 gm PRN Q15MIN PRN IV SEE COMMENTS; Start 05/02/20 at 15:45 Phenol (Chloraseptic) 1 spray PRN Q2HR PRN PO SORE THROAT; Start 05/02/20 at 17:00 Throat Lozenges (Cepacol Sore Throat Lozenge) 1 afshan PRN Q2HRS PRN PO SORE THROAT; Start 05/02/20 at 17:00 Calcium Gluconate (Calcium Gluconate) 1,000 mg 1X ONCE IVP Last administered on 05/02/20at 18:55; Start 05/02/20 at 18:30; Stop 05/02/20 at 18:31; Status DC Calcium Gluconate 3000 mg/Dextrose 1,030 ml @ 60 mls/hr [id number] IV Last administered on 05/02/20at 19:24; Start 05/02/20 at 19:00; Stop 05/03/20 at 11:00; Status DC Calcium Gluconate 3000 mg/Dextrose 1,030 ml @ 60 mls/hr [id number] IV ; Start 05/02/20 at 19:00; Status Cancel Calcium Gluconate (Calcium Gluconate) 2,000 mg 1X ONCE IVP Last administered on 05/03/20at 05:15; Start 05/03/20 at 05:30; Stop 05/03/20 at 05:31; Status DC Sodium Chloride 1,000 ml @ 1,000 mls/hr Q1H PRN IV hypotension; Start 05/03/20 at 07:52; Stop 05/03/20 at 13:51; Status DC Sodium Chloride 1,000 ml @ 400 mls/hr Q2H30M PRN IV PATENCY; Start 05/03/20 at 07:52; Stop 05/03/20 at 19:51; Status DC Info (PHARMACY MONITORING -- do not chart) 1 each PRN DAILY PRN MC SEE COMMENTS; Start 05/03/20 at 08:00; Stop 05/03/20 at 17:02; Status DC Info (PHARMACY MONITORING -- do not chart) 1 each PRN DAILY PRN MC SEE COMMENTS; Start 05/03/20 at 08:00 Calcium/Vitamin D (Oscal D 500mg/ 200uts) 2 tab BIDWMEALS PO Last administered on 05/04/20at 09:53; Start 05/03/20 at 17:00 Cefazolin Sodium/ Dextrose (Ancef 2gm Premix) 2 gm STK-MED ONCE IV ; Start at 08:00; Stop 05/03/20 at 12:58; Status DC Pantoprazole Sodium (Protonix) 40 mg BID PO Last administered on 05/04/20at 0 9:53; Start 05/03/20 at 22:30 Calcium Gluconate 3000 mg/Dextrose 1,030 ml @ 100 mls/hr [id number] IV Last administered on 05/04/20at 12:12; Start 05/04/20 at 00:00 Active Scripts Active Reported Miralax (Polyethylene Glycol 3350) 17 Gm Powd.pack 1 Packet PO PRN PRN 2 Days dissolve in water Atorvastatin Calcium 10 Mg Tablet 10 Mg PO HS [auryxia] 630 Mg PO TIDAC Protonix (Pantoprazole Sodium) 20 Mg Tablet.dr 2 Tab PO DAILY Furosemide 80 Mg Tablet 1 Tab PO TID Vitamin D (Cholecalciferol (Vitamin D3)) 5,000 Unit Tablet 5,000 Unit PO DAILY Johanna-Celia Rx Tablet (Vit B Cmplx 3/Fa/Vit C/Biotin) 1 Each Tablet 1 Each PO DAILY Sensipar (Cinacalcet Hcl) 60 Mg Tablet 90 Mg PO DAILY Novolog (Insulin Aspart) 100 Unit/1 Ml Vial 12 Unit SQ TIDAC sliding scale Lantus Solostar (Insulin Glargine,Hum.rec.anlog) 100 Unit/1 Ml Insuln.pen 20 Unit SQ HS Vitals/I & O Vital Sign - Last 24 Hours 05/03/20 05/03/20 05/03/20 05/03/20 14:38 15:00 19:00 20:00 Temp 98.0 98.0 98.0 98.0 Pulse 98 86 Resp 16 18 B/P (MAP) 125/73 (90) 119/75 (90) Pulse Ox 97 96 96 O2 Delivery Room Air Room Air Room Air Room Air 05/03/20 05/03/20 05/04/20 05/04/20 21:27 23:29 03:00 07:00 Temp 98.1 98.2 98.2 98.1 98.2 98.2 Pulse 80 93 86 Resp 16 17 17 16 B/P (MAP) 137/88 (104) 113/65 (81) 134/82 (99) Pulse Ox 96 98 96 O2 Delivery Room Air Room Air Room Air Room Air 05/04/20 05/04/20 08:15 11:00 Temp 98.0 98.0 Pulse 79 Resp 16 B/P (MAP) 156/95 (115) Pulse Ox 99 O2 Delivery Room Air Room Air Intake and Output 05/03/20 05/03/20 05/04/20 15:00 23:00 07:00 Intake Total 0 ml 0 ml Balance 0 ml 0 ml Justicifation of Admission Dx: Justifications for Admission: Justification of Admission Dx: Yes Chronic Renal Failure: Electrolyte Abnormality ACOSTA OSPINA MD May 04, 2020 13:55
[2020-05-04 15:00] VITALS: BP 135/69
[2020-05-04] MEDS ORDERED: CETIRIZINE HCL 10 MG TABLET. PO PRN (18:15)
[2020-05-04 19:00] VITALS: BP 139/86
[2020-05-04] MEDS: CETIRIZINE HCL 10 MG TABLET. PO SCH (20:48)
[2020-05-04] MEDS: FLUTICASONE 50MCG/NASAL SPRAY 16GM BOTTLE. NS SCH (20:48)
[2020-05-04] MEDS: BENZOCAINE/MENTHOL LOZENGE. PO PRN (20:49)
[2020-05-04] MEDS: ATORVASTATIN CALCIUM 10 MG TABLET. PO SCH (20:49)
[2020-05-04] MEDS: INSULIN GLARGINE SYRINGE. SQ SCH (22:01)
--- NOTE | 2020-05-04 22:24 | NUR ---
Patient complained his IV fluids are leaking. RN noted fluid at IV site with infiltration. RN discontinued PIV and asked patient if she could place a new PIV. Patient stated his arm is sore from old one. RN informed patient she would attempt to place above infiltration site. patient refused. Patient stated not tonight, maybe tomorrow. Patient asked for PO meds instead. Last Calcium level drawn was 6.7 at 1647 today. Down from prior level. RN paged Dr Parks. Patient also asked RN to have Dr. Parks call him on his cell [phone]
[2020-05-04 23:00] VITALS: BP 135/89
[2020-05-04] MEDS: ONDANSETRON PF 4 MG/2 ML VIAL. IVP PRN (23:01)
[2020-05-05 03:00] VITALS: BP 132/83
[2020-05-05 05:39] LABS: CALCIUM 6.6 mg/dL (8.5-10.1); GFR 5.2; MAGNESIUM 2.2 mg/dL (1.8-2.4); PHOSPHORUS 4.8 mg/dL (2.6-4.7)
[2020-05-05 07:24] VITALS: BP 145/83
[2020-05-05] MEDS: INSULIN LISPRO 300 UNITS/3 ML VIAL. SQ SCH ×7 (07:30→21:00)
[2020-05-05] MEDS ORDERED: IV NORMAL SALINE 1000ML BAG 1,000 ML IV PRN ×2 (07:33)
[2020-05-05] MEDS ORDERED: DIALYSIS PATIENT. MC PRN (07:45)
[2020-05-05] MEDS: IV NORMAL SALINE 1000ML BAG 1,000 ML IV SCH (08:27)
--- NOTE | 2020-05-05 11:30 | NUR ---
SS following up with discharge planning. SS reviewed pt chart and discussed with pt RN. Pt is currently on room air. SS contacted [facility], ; fax [phone], and verified that pt does NOT need COVID19 test prior to returning. Pt's RN notified. Discharge plan is to home when ready. SS will continue to follow for discharge planning.
--- NOTE | 2020-05-05 11:58 | PDOC ---
Renal-Progress Notes Subjective Notes Notes NO NEW COMPLAINTS History of Present Illness Hx of present illness STABLE Vitals Vitals Vital Signs Date Time Temp Pulse Resp B/P (MAP) Pulse Ox O2 Delivery O2 Flow Rate FiO2 05/05/20 08:00 Room Air 05/05/20 07:24 98.3 82 18 145/83 (103) 95 98.3 05/04/20 20:00 2.0 Weight Weight [ ] I.O. Intake and Output Intake and Output 05/05/20 07:00 Intake Total 1640 ml Balance 1640 ml Intake Oral 640 ml Other 1000 ml # Voids 2 Labs Labs Laboratory Tests Test 05/04/20 16:47 05/04/20 17:32 05/04/20 21:06 05/05/20 03:50 Calcium Level 6.7 mg/dL (8.5-10.1) 6.6 mg/dL (8.5-10.1) Glucose (Fingerstick) 298 mg/dL (70-99) 304 mg/dL (70-99) Sodium Level 130 mmol/L (136-145) Potassium Level 5.0 mmol/L (3.5-5.1) Chloride Level 91 mmol/L (98-107) Carbon Dioxide Level 26 mmol/L (21-32) Anion Gap 13 (6-14) Blood Urea Nitrogen 61 mg/dL (8-26) Creatinine 13.0 mg/dL (0.7-1.3) Estimated GFR (Cockcroft-Gault) 5.2 Glucose Level 101 mg/dL (70-99) Phosphorus Level 4.8 mg/dL (2.6-4.7) Magnesium Level 2.2 mg/dL (1.8-2.4) Test 05/05/20 07:15 Glucose (Fingerstick) 157 mg/dL (70-99) Review of Systems Constitutional: yes: alert, oriented Ears/Nose/Throat: Yes: no symptom reported Eyes: Yes: no symptom reported Pulmonary: Yes no symptom reported Cardiovascular: Yes no symptom reported Gastrointestional: Yes: no symptom reported Genitourinary: Yes: no symptom reported Musculoskeletal: Yes: no symptom reported Skin: Yes no symptom reported Psychiatric/Neurological: Yes: no symptom reported Endocrine: Yes: no symptom reported Physical Exam General Appearance: no apparent distress Skin: warm Respiratory: bilateral CTA Heart: S1S2 Abdomen: soft, bowel sounds present Genitourinary: bladder flat Extremities: pulses present Neurology: alert Musculoskeletal: Other Assessment Assessment IMP ESRD S/P SUBTOTAL PARATHYROIDECTOMY HYPOCALCEMIA-HUNGRY BONES ANEMIA DM II HTN PLAN HD TODAY UF TO DW USE 3.5 CA DIALYSATE LEOPOLDO WHEN NEEDED SUPPLEMENT CALCIUM NEEDS TO STAY INPT TILL CA LEVELS STABILIZE D/W ATTENDING ARIANNE UMANA MD May 05, 2020 11:58
[2020-05-05 12:30] VITALS: BP 166/92
[2020-05-05] MEDS: FOLIC/VIT B COMP W-C (RENAL) TABLET. PO SCH (12:32)
[2020-05-05] MEDS: PANTOPRAZOLE 40 MG TABLET.DR. PO SCH ×2 (12:32→20:47)
[2020-05-05] MEDS: CALCIUM CARB/VIT D3 500/200 TABLET. PO SCH ×2 (12:35→17:00)
[2020-05-05] MEDS: oxyCODONE/APAP 5/325 1 TAB TABLET PO PRN ×2 (13:14→18:46)
--- NOTE | 2020-05-05 13:47 | PDOC ---
MASON NEVAREZ [employer] INVESTIGATOR 05/05/20 1347: SURGICAL PROGRESS NOTE Subjective resting tolerating diet pain managed Vital Signs Vital Signs Date Time Temp Pulse Resp B/P (MAP) Pulse Ox O2 Delivery O2 Flow Rate FiO2 05/05/20 12:30 98.2 101 18 166/92 (116) 96 Room Air 98.2 05/04/20 20:00 2.0 I&O Intake and Output 05/05/20 07:00 Intake Total 1640 ml Balance 1640 ml Intake Oral 640 ml Other 1000 ml # Voids 2 General: Alert, Oriented X3 HEENT: Other (dressing d/i, no swelling) Labs Laboratory Tests Test 05/03/20 16:27 05/03/20 16:58 05/03/20 20:29 05/03/20 22:10 Calcium Level 7.9 mg/dL (8.5-10.1) 6.8 mg/dL (8.5-10.1) Glucose (Fingerstick) 157 mg/dL (70-99) 95 mg/dL (70-99) Test 05/04/20 03:45 05/04/20 07:55 05/04/20 09:45 05/04/20 11:44 Sodium Level 134 mmol/L (136-145) Potassium Level 4.3 mmol/L (3.5-5.1) Chloride Level 95 mmol/L (98-107) Carbon Dioxide Level 28 mmol/L (21-32) Anion Gap 11 (6-14) Blood Urea Nitrogen 41 mg/dL (8-26) Creatinine 10.1 mg/dL (0.7-1.3) Estimated GFR (Cockcroft-Gault) 7.0 BUN/Creatinine Ratio 4 (6-20) Glucose Level 94 mg/dL (70-99) Calcium Level 7.0 mg/dL (8.5-10.1) 6.9 mg/dL (8.5-10.1) Phosphorus Level 4.5 mg/dL (2.6-4.7) Magnesium Level 2.1 mg/dL (1.8-2.4) Total Bilirubin 0.4 mg/dL (0.2-1.0) Aspartate Amino Transf (AST/SGOT) 14 U/L (15-37) Alanine Aminotransferase (ALT/SGPT) 12 U/L (16-63) Alkaline Phosphatase 362 U/L (46-116) Total Protein 6.8 g/dL (6.4-8.2) Albumin 2.8 g/dL (3.4-5.0) Albumin/Globulin Ratio 0.7 (1.0-1.7) Glucose (Fingerstick) 163 mg/dL (70-99) 129 mg/dL (70-99) Test 05/04/20 16:47 05/04/20 17:32 05/04/20 21:06 05/05/20 03:50 Calcium Level 6.7 mg/dL (8.5-10.1) 6.6 mg/dL (8.5-10.1) Glucose (Fingerstick) 298 mg/dL (70-99) 304 mg/dL (70-99) Sodium Level 130 mmol/L (136-145) Potassium Level 5.0 mmol/L (3.5-5.1) Chloride Level 91 mmol/L (98-107) Carbon Dioxide Level 26 mmol/L (21-32) Anion Gap 13 (6-14) Blood Urea Nitrogen 61 mg/dL (8-26) Creatinine 13.0 mg/dL (0.7-1.3) Estimated GFR (Cockcroft-Gault) 5.2 Glucose Level 101 mg/dL (70-99) Phosphorus Level 4.8 mg/dL (2.6-4.7) Magnesium Level 2.2 mg/dL (1.8-2.4) Test 05/05/20 07:15 05/05/20 12:37 Glucose (Fingerstick) 157 mg/dL (70-99) 223 mg/dL (70-99) Laboratory Tests Test 05/04/20 16:47 05/04/20 17:32 05/04/20 21:06 05/05/20 03:50 Calcium Level 6.7 mg/dL (8.5-10.1) 6.6 mg/dL (8.5-10.1) Glucose (Fingerstick) 298 mg/dL (70-99) 304 mg/dL (70-99) Sodium Level 130 mmol/L (136-145) Potassium Level 5.0 mmol/L (3.5-5.1) Chloride Level 91 mmol/L (98-107) Carbon Dioxide Level 26 mmol/L (21-32) Anion Gap 13 (6-14) Blood Urea Nitrogen 61 mg/dL (8-26) Creatinine 13.0 mg/dL (0.7-1.3) Estimated GFR (Cockcroft-Gault) 5.2 Glucose Level 101 mg/dL (70-99) Phosphorus Level 4.8 mg/dL (2.6-4.7) Magnesium Level 2.2 mg/dL (1.8-2.4) Test 05/05/20 07:15 05/05/20 12:37 Glucose (Fingerstick) 157 mg/dL (70-99) 223 mg/dL (70-99) Assessment/Plan reviewed notes ca 6.6--renal recs noted, would like ca stabilized prior to dc Justicifation of Admission Dx: Justifications for Admission: Justification of Admission Dx: Yes Chronic Renal Failure: Electrolyte Abnormality HONG ROGER MD 05/05/20 1652: SURGICAL PROGRESS NOTE Assessment/Plan Agree with above MASON NEVAREZ APRN May 05, 2020 13:47 HONG ROGER MD May 05, 2020 16:52
--- NOTE | 2020-05-05 14:15 | PDOC ---
PROGRESS NOTES Chief Complaint Chief Complaint Assessment/Plan Assessment/Plan A/P: Secondary hyperparathyroidism - s/p left inferior/superior, right superior and right inferior sub-total parathyroidectomy and left inferior thyroid nodule resection. Q6hour calcium monitoring. ESRD - was on PD ,switched to HD - [facility]. 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 Consulted for HD management. Getting eval for renal Tx at [facility] DM2 with Blood Glucose very high - will give 25u TID and glargine per home regimen Chronic Diastolic CHF-Stable, On R HTN- continue antihypertensives GERD - will cont PPI HLD - cont statin GALINDO on CPAP - cont inpatient Anemia of chronic renal insufficiency - stable FEN - Renal ADA diet PPX - heparin with dialysis FULL CODE Dispo - inpatient for calcium monitoring, needs telemetry. electrolyte management as per nephrology loss control consultant History of Present Illness History of Present Illness History of Present Illness Reason for Visit: Mr Villa is a 40 yo M w/ PMHx HTN, HLD, GALINDO on CPAP, DM2 on insulin, ESRD on HD (previously on PD), anemia of chronic renal insufficiency, and recent diagnosis of secondary hyperparathyroidism who is admitted today for post-operative management and calcium monitoring after symptomatic hypeparathyroidism with a left inferior/superior, right superior and right inferior sub-total parathyroidectomy and left inferior thyroid nodule resection. Glucose 408 and has as sore throat post-operatively 05/04/2020 No acute events reported overnight, case discussed with nursing staff patient in no acute distress no complaints during my visit 05/05/2020 Patient seen in dialysis, no acute distress. Electrolyte disturbance noted. We will continue to replace with the help of our nephrology loss control consultant Vitals Vitals Vital Signs Date Time Temp Pulse Resp B/P (MAP) Pulse Ox O2 Delivery O2 Flow Rate FiO2 05/05/20 12:30 98.2 101 18 166/92 (116) 96 Room Air 98.2 05/04/20 20:00 2.0 Physical Exam General: Alert, Oriented X3 Heart: Regular rate Lungs: Clear Abdomen: Normal bowel sounds, No tenderness Extremities: No cyanosis Skin: No breakdown Labs LABS Laboratory Tests Test 05/04/20 16:47 05/04/20 17:32 05/04/20 21:06 05/05/20 03:50 Calcium Level 6.7 mg/dL (8.5-10.1) 6.6 mg/dL (8.5-10.1) Glucose (Fingerstick) 298 mg/dL (70-99) 304 mg/dL (70-99) Sodium Level 130 mmol/L (136-145) Potassium Level 5.0 mmol/L (3.5-5.1) Chloride Level 91 mmol/L (98-107) Carbon Dioxide Level 26 mmol/L (21-32) Anion Gap 13 (6-14) Blood Urea Nitrogen 61 mg/dL (8-26) Creatinine 13.0 mg/dL (0.7-1.3) Estimated GFR (Cockcroft-Gault) 5.2 Glucose Level 101 mg/dL (70-99) Phosphorus Level 4.8 mg/dL (2.6-4.7) Magnesium Level 2.2 mg/dL (1.8-2.4) Test 05/05/20 07:15 05/05/20 12:37 Glucose (Fingerstick) 157 mg/dL (70-99) 223 mg/dL (70-99) Comment Review of Relevant I have reviewed the following items javy (where applicable) has been applied. Labs Laboratory Tests Test 05/03/20 16:27 05/03/20 16:58 05/03/20 20:29 05/03/20 22:10 Calcium Level 7.9 mg/dL (8.5-10.1) 6.8 mg/dL (8.5-10.1) Glucose (Fingerstick) 157 mg/dL (70-99) 95 mg/dL (70-99) Test 05/04/20 03:45 05/04/20 07:55 05/04/20 09:45 05/04/20 11:44 Sodium Level 134 mmol/L (136-145) Potassium Level 4.3 mmol/L (3.5-5.1) Chloride Level 95 mmol/L (98-107) Carbon Dioxide Level 28 mmol/L (21-32) Anion Gap 11 (6-14) Blood Urea Nitrogen 41 mg/dL (8-26) Creatinine 10.1 mg/dL (0.7-1.3) Estimated GFR (Cockcroft-Gault) 7.0 BUN/Creatinine Ratio 4 (6-20) Glucose Level 94 mg/dL (70-99) Calcium Level 7.0 mg/dL (8.5-10.1) 6.9 mg/dL (8.5-10.1) Phosphorus Level 4.5 mg/dL (2.6-4.7) Magnesium Level 2.1 mg/dL (1.8-2.4) Total Bilirubin 0.4 mg/dL (0.2-1.0) Aspartate Amino Transf (AST/SGOT) 14 U/L (15-37) Alanine Aminotransferase (ALT/SGPT) 12 U/L (16-63) Alkaline Phosphatase 362 U/L (46-116) Total Protein 6.8 g/dL (6.4-8.2) Albumin 2.8 g/dL (3.4-5.0) Albumin/Globulin Ratio 0.7 (1.0-1.7) Glucose (Fingerstick) 163 mg/dL (70-99) 129 mg/dL (70-99) Test 05/04/20 16:47 05/04/20 17:32 05/04/20 21:06 05/05/20 03:50 Calcium Level 6.7 mg/dL (8.5-10.1) 6.6 mg/dL (8.5-10.1) Glucose (Fingerstick) 298 mg/dL (70-99) 304 mg/dL (70-99) Sodium Level 130 mmol/L (136-145) Potassium Level 5.0 mmol/L (3.5-5.1) Chloride Level 91 mmol/L (98-107) Carbon Dioxide Level 26 mmol/L (21-32) Anion Gap 13 (6-14) Blood Urea Nitrogen 61 mg/dL (8-26) Creatinine 13.0 mg/dL (0.7-1.3) Estimated GFR (Cockcroft-Gault) 5.2 Glucose Level 101 mg/dL (70-99) Phosphorus Level 4.8 mg/dL (2.6-4.7) Magnesium Level 2.2 mg/dL (1.8-2.4) Test 05/05/20 07:15 05/05/20 12:37 Glucose (Fingerstick) 157 mg/dL (70-99) 223 mg/dL (70-99) Laboratory Tests Test 05/04/20 16:47 05/04/20 17:32 05/04/20 21:06 05/05/20 03:50 Calcium Level 6.7 mg/dL (8.5-10.1) 6.6 mg/dL (8.5-10.1) Glucose (Fingerstick) 298 mg/dL (70-99) 304 mg/dL (70-99) Sodium Level 130 mmol/L (136-145) Potassium Level 5.0 mmol/L (3.5-5.1) Chloride Level 91 mmol/L (98-107) Carbon Dioxide Level 26 mmol/L (21-32) Anion Gap 13 (6-14) Blood Urea Nitrogen 61 mg/dL (8-26) Creatinine 13.0 mg/dL (0.7-1.3) Estimated GFR (Cockcroft-Gault) 5.2 Glucose Level 101 mg/dL (70-99) Phosphorus Level 4.8 mg/dL (2.6-4.7) Magnesium Level 2.2 mg/dL (1.8-2.4) Test 05/05/20 07:15 05/05/20 12:37 Glucose (Fingerstick) 157 mg/dL (70-99) 223 mg/dL (70-99) Medications Current Medications Ondansetron HCl (Zofran) 4 mg PRN Q6HRS PRN IV NAUSEA/VOMITING; Start 05/02/20 at 07:00; Stop 05/03/20 at 06:59; Status DC Fentanyl Citrate (Fentanyl 2ml Vial) 25 mcg PRN Q5MIN PRN IV MILD PAIN 1-3; Start 05/02/20 at 07:00; Stop 05/03/20 at 06:59; Status DC Fentanyl Citrate (Fentanyl 2ml Vial) 50 mcg PRN Q5MIN PRN IV MODERATE TO SEVERE PAIN Last administered on 05/02/20at 13:27; Start 05/02/20 at 07:00; Stop 05/03/20 at 06:59; Status DC Morphine Sulfate (Morphine Sulfate) 1 mg PRN Q10MIN PRN IV SEVERE PAIN 7-10; Start 05/02/20 at 07:00; Stop 05/03/20 at 06:59; Status DC Ringer's Solution 1,000 ml @ 30 mls/hr Q24H IV ; Start 05/02/20 at 07:00; Stop 05/02/20 at 18:59; Status DC Lidocaine HCl (Xylocaine-Mpf 1% 2ml Vial) 2 ml PRN 1X PRN ID PRIOR TO IV START; Start 05/02/20 at 07:00; Stop 05/03/20 at 06:59; Status DC Hydromorphone HCl (Dilaudid) 0.5 mg PRN Q10MIN PRN IV SEV PAIN, Second choice; Start 05/02/20 at 07:00; Stop 05/03/20 at 06:59; Status DC Prochlorperazine Edisylate (Compazine) 5 mg PACU PRN PRN IV NAUSEA, MRX1; Start 05/02/20 at 07:00; Stop 05/03/20 at 06:59; Status DC Cefazolin Sodium/ Dextrose 50 ml @ 100 mls/hr 1X PREOP PRN IV PRIOR TO PROCEDURE Last administered on 05/02/20at 07:40; Start 05/02/20 at 08:00; Stop 05/02/20 at 18:00; Status DC Insulin Human Lispro (HumaLOG VIAL for OP,RR ONLY) 0-10 units PRN Q1HR PRN SQ PER PROTOCOL Last administered on 05/02/20at 16:21; Start 05/02/20 at 07:15; Stop 05/03/20 at 07:14; Status DC Sodium Chloride 1,000 ml @ 0 mls/hr Q0M IV Last administered on 05/02/20at 07:24; Start 05/02/20 at 07:15 Propofol (Diprivan) 200 mg STK-MED ONCE IV ; Start 05/02/20 at 07:32; Stop 05/02/20 at 07:32; Status DC Lidocaine HCl (Xylocaine-Mpf 1% 5ml Vial) 5 ml STK-MED ONCE .ROUTE ; Start 05/02/20 at 07:32; Stop 05/02/20 at 07:32; Status DC Midazolam HCl (Versed) 2 mg STK-MED ONCE .ROUTE ; Start 05/02/20 at 07:32; Stop 05/02/20 at 07:33; Status DC Fentanyl Citrate (Fentanyl 5ml Vial) 250 mcg STK-MED ONCE .ROUTE ; Start 04/14 at 07:32; Stop 05/02/20 at 07:33; Status DC Succinylcholine Chloride (Anectine) 200 mg STK-MED ONCE .ROUTE ; Start 05/02/20 at 07:33; Stop 05/02/20 at 07:33; Status DC Ondansetron HCl (Zofran) 4 mg STK-MED ONCE .ROUTE ; Start 05/02/20 at 07:36; Stop 05/02/20 at 07:36; Status DC Dexamethasone Sodium Phosphate (Decadron) 4 mg STK-MED ONCE .ROUTE ; Start 05/02/20 at 07:36; Stop 05/02/20 at 07:36; Status DC Desflurane (Suprane) 60 ml STK-MED ONCE IH ; Start 05/02/20 at 07:52; Stop 05/02/20 at 07:52; Status DC Sevoflurane (Ultane) 60 ml STK-MED ONCE IH ; Start 05/02/20 at 07:52; Stop 05/02/20 at 07:52; Status DC Rocuronium [place] (Zemuron) 50 mg STK-MED ONCE .ROUTE ; Start 05/02/20 at 07:56; Stop 05/02/20 at 07:57; Status DC Dexamethasone Sodium Phosphate (Decadron) 4 mg STK-MED ONCE .ROUTE ; Start 05/02/20 at 08:11; Stop 05/02/20 at 08:11; Status DC Phenylephrine HCl (PHENYLEPHRINE in 0.9% NACL PF) 1 mg STK-MED ONCE IV ; Start 05/02/20 at 08:11; Stop 05/02/20 at 08:11; Status DC Ephedrine Sulfate (ePHEDrine PF IN SALINE SYRINGE) 50 mg STK-MED ONCE IV ; Start 05/02/20 at 08:11; Stop 05/02/20 at 08:11; Status DC Phenylephrine HCl (Ham-Synephrine Inj) 10 mg STK-MED ONCE .ROUTE ; Start 05/02/20 at 08:12; Stop 05/02/20 at 08:13; Status DC Sodium Chloride (Normal Saline Flush) 3 ml QSHIFT PRN IV AFTER MEDS AND BLOOD DRAWS; Start 05/02/20 at 10:45 Sodium Chloride 1,000 ml @ 60 mls/hr [id number] IV ; Start 05/02/20 at 10:36; Stop 05/04/20 at 11:17; Status DC Oxycodone/ Acetaminophen (Percocet 5/325) 1 tab PRN Q4HRS PRN PO MILD PAIN, 1ST CHOICE Last administered on 05/05/20at 13:14; Start 05/02/20 at 10:45 Oxycodone/ Acetaminophen (Percocet 5/325) 2 tab PRN Q4HRS PRN PO MODERATE PAIN, SEVERE PAIN Last administered on 05/03/20at 13:18; Start 05/02/20 at 10:45 Naloxone HCl (Narcan) 0.4 mg PRN Q2MIN PRN IV SEE INSTRUCTIONS; Start 05/02/20 at 10:45 Sodium Chloride 1,000 ml @ 25 mls/hr Q24H IV ; Start 05/02/20 at 10:36 Hydromorphone HCl (Dilaudid) 0.2 mg PRN Q1HR PRN IV PAIN Last administered on 05/02/20at 23:22; Start 05/02/20 at 10:45 Ondansetron HCl (Zofran) 4 mg PRN Q6HRS PRN IVP NAUESA, 1ST CHOICE Last administered on 05/04/20at 23:01; Start 05/02/20 at 10:45 Fentanyl Citrate (Fentanyl 2ml Vial) 100 mcg STK-MED ONCE .ROUTE ; Start 05/02/20 at 11:46; Stop 05/02/20 at 11:46; Status DC Fentanyl Citrate (Fentanyl 2ml Vial) 100 mcg STK-MED ONCE .ROUTE ; Start 05/02/20 at 12:17; Stop 05/02/20 at 12:17; Status DC Pantoprazole Sodium (Protonix) 40 mg 1X ONCE PO Last administered on 05/02/20at 15:18; Start 05/02/20 at 15:15; Stop 05/02/20 at 15:16; Status DC Atorvastatin Calcium (Lipitor) 10 mg HS PO Last administered on 05/04/20at 20:49; Start 05/02/20 at 21:00 Polyethylene Glycol (miraLAX PACKET) 17 gm PRN DAILY PRN PO CONSTIPATION; Start 05/02/20 at 15:45 Insulin Human Lispro (HumaLOG) 12 units TIDWMEALS SQ Last administered on 05/05/20at 12:42; Start 05/02/20 at 17:30 Insulin Glargine (Lantus Syringe) 20 unit QHS SQ Last administered on 05/04/20at 22:01; Start 05/02/20 at 21:00 Pantoprazole Sodium (Protonix) 40 mg DAILYAC PO Last administered on 05/03/20at 13:17; Start 05/03/20 at 07:30; Stop 05/03/20 at 22:01; Status DC Vitamin B Complex/ Vitamin C (Johanna-Celia) 1 tab DAILY PO Last administered on 05/05/20at 12:32; Start 05/03/20 at 09:00 Insulin Human Lispro (HumaLOG) 0-7 UNITS TIDACHC SQ Last administered on 05/05/20at 12:42; Start 05/02/20 at 17:30 Dextrose (Dextrose 50%-Water Syringe) 12.5 gm PRN Q15MIN PRN IV SEE COMMENTS; Start 05/02/20 at 15:45 Phenol (Chloraseptic) 1 spray PRN Q2HR PRN PO SORE THROAT, 2ND CHOICE; Start 05/02/20 at 17:00 Throat Lozenges (Cepacol Sore Throat Lozenge) 1 afshan PRN Q2HRS PRN PO SORE THROAT, 1ST CHOICE Last administered on 05/04/20at 20:49; Start 05/02/20 at 17:00 Calcium Gluconate (Calcium Gluconate) 1,000 mg 1X ONCE IVP Last administered on 05/02/20at 18:55; Start 05/02/20 at 18:30; Stop 05/02/20 at 18:31; Status DC Calcium Gluconate 3000 mg/Dextrose 1,030 ml @ 60 mls/hr [id number] IV Last administered on 05/02/20at 19:24; Start 05/02/20 at 19:00; Stop 05/03/20 at 11:00; Status DC Calcium Gluconate 3000 mg/Dextrose 1,030 ml @ 60 mls/hr [id number] IV ; Start 05/02/20 at 19:00; Status Cancel Calcium Gluconate (Calcium Gluconate) 2,000 mg 1X ONCE IVP Last administered on 05/03/20at 05:15; Start 05/03/20 at 05:30; Stop 05/03/20 at 05:31; Status DC Sodium Chloride 1,000 ml @ 1,000 mls/hr Q1H PRN IV hypotension; Start 05/03/20 at 07:52; Stop 05/03/20 at 13:51; Status DC Sodium Chloride 1,000 ml @ 400 mls/hr Q2H30M PRN IV PATENCY; Start 05/03/20 at 07:52; Stop 05/03/20 at 19:51; Status DC Info (PHARMACY MONITORING -- do not chart) 1 each PRN DAILY PRN MC SEE COMMENTS; Start 05/03/20 at 08:00; Stop 05/03/20 at 17:02; Status DC Info (PHARMACY MONITORING -- do not chart) 1 each PRN DAILY PRN MC SEE COMMENTS; Start 05/03/20 at 08:00; Status Cancel Calcium/Vitamin D (Oscal D 500mg/ 200uts) 2 tab BIDWMEALS PO Last administered on 05/05/20at 12:35; Start 05/03/20 at 17:00 Cefazolin Sodium/ Dextrose (Ancef 2gm Premix) 2 gm STK-MED ONCE IV ; Start 05/02/20 at 08:00; Stop 05/03/20 at 12:58; Status DC Pantoprazole Sodium (Protonix) 40 mg BID PO Last administered on 05/05/20at 12:32; Start 05/03/20 at 22:30 Calcium Gluconate 3000 mg/Dextrose 1,030 ml @ 100 mls/hr [id number] IV Last administered on 05/04/20at 23:02; Start 05/04/20 at 00:00 Fluticasone Propionate (Flonase) 2 spray QHS NS Last administered on 05/04/20at 20:48; Start 05/04/20 at 21:00 Cetirizine HCl (ZyrTEC) 10 mg PRN DAILY PRN PO ALLERGIES; Start 05/04/20 at 18:15; Stop 05/04/20 at 19:32; Status DC Cetirizine HCl (ZyrTEC) 10 mg QHS PO Last administered on 05/04/20at 20:48; Start 05/04/20 at 21:00 Sodium Chloride 1,000 ml @ 1,000 mls/hr Q1H PRN IV hypotension; Start 05/05/20 at 07:33; Stop 05/05/20 at 13:32; Status DC Sodium Chloride 1,000 ml @ 400 mls/hr Q2H30M PRN IV PATENCY; Start 05/05/20 at 07:33; Stop 05/05/20 at 19:32 Info (PHARMACY MONITORING -- do not chart) 1 each PRN DAILY PRN MC SEE RUY TS; Start 05/05/20 at 07:45 Insulin Human Lispro (HumaLOG VIAL for OP,RR ONLY) 2 unit STK-MED ONCE SQ ; Start 05/02/20 at 16:30; Stop 05/05/20 at 10:10; Status DC Insulin Human Lispro (HumaLOG VIAL for OP,RR ONLY) 10 unit STK-MED ONCE SQ ; Start 05/02/20 at 16:30; Stop 05/05/20 at 10:10; Status DC Insulin Human Lispro (HumaLOG VIAL for OP,RR ONLY) 10 unit STK-MED ONCE SQ ; Start 05/02/20 at 16:30; Stop 05/05/20 at 10:10; Status DC Active Scripts Active Reported Miralax (Polyethylene Glycol 3350) 17 Gm Powd.pack 1 Packet PO PRN PRN 2 Days dissolve in water Atorvastatin Calcium 10 Mg Tablet 10 Mg PO HS [auryxia] 630 Mg PO TIDAC Protonix (Pantoprazole Sodium) 20 Mg Tablet.dr 2 Tab PO DAILY Furosemide 80 Mg Tablet 1 Tab PO TID Vitamin D (Cholecalciferol (Vitamin D3)) 5,000 Unit Tablet 5,000 Unit PO DAILY Johanna-Celia Rx Tablet (Vit B Cmplx 3/Fa/Vit C/Biotin) 1 Each Tablet 1 Each PO DAILY Sensipar (Cinacalcet Hcl) 60 Mg Tablet 90 Mg PO DAILY Novolog (Insulin Aspart) 100 Unit/1 Ml Vial 12 Unit SQ TIDAC sliding scale Lantus Solostar (Insulin Glargine,Hum.rec.anlog) 100 Unit/1 Ml Insuln.pen 20 Uni t SQ HS Vitals/I & O Vital Sign - Last 24 Hours 05/04/20 05/04/20 05/04/20 05/04/20 15:00 19:00 20:00 23:00 Temp 98.5 99.2 99.2 98.5 99.2 99.2 Pulse 89 101 95 Resp 16 18 18 B/P (MAP) 135/69 (91) 139/86 (103) 135/89 (104) Pulse Ox 98 97 97 O2 Delivery Room Air Room Air Room Air O2 Flow Rate 2.0 05/05/20 05/05/20 05/05/20 05/05/20 03:00 07:24 08:00 12:30 Temp 98.3 98.3 98.2 98.3 98.3 98.2 Pulse 90 82 101 Resp 18 18 18 B/P (MAP) 132/83 (99) 145/83 (103) 166/92 (116) Pulse Ox 98 95 96 O2 Delivery Room Air Room Air Room Air Room Air Intake and Output 05/04/20 05/04/20 05/05/20 15:00 23:00 07:00 Intake Total 400 ml 1240 ml Balance 400 ml 1240 ml Justicifation of Admission Dx: Justifications for Admission: Justification of Admission Dx: Yes Chronic Renal Failure: Electrolyte Abnormality ACOSTA OSPINA MD May 05, 2020 14:15
[2020-05-05] MEDS: DEXTROSE 5% IV SCH ×2 (14:18→21:52)
[2020-05-05] MEDS: CALCIUM GLUCONATE IV SCH ×2 (14:18→21:52)
[2020-05-05 14:33] VITALS: BP 147/88
[2020-05-05 19:00] VITALS: BP 153/93
[2020-05-05] MEDS: BENZOCAINE/MENTHOL LOZENGE. PO PRN (20:46)
[2020-05-05] MEDS: CETIRIZINE HCL 10 MG TABLET. PO SCH (20:46)
[2020-05-05] MEDS: ATORVASTATIN CALCIUM 10 MG TABLET. PO SCH (20:47)
[2020-05-05] MEDS: FLUTICASONE 50MCG/NASAL SPRAY 16GM BOTTLE. NS SCH (20:47)
[2020-05-05] MEDS: INSULIN GLARGINE SYRINGE. SQ SCH (21:57)
[2020-05-05 23:33] VITALS: BP 144/82
[2020-05-06] MEDS: oxyCODONE/APAP 5/325 1 TAB TABLET PO PRN ×3 (00:01→17:39)
[2020-05-06 03:00] VITALS: BP 135/81
[2020-05-06 07:00] VITALS: BP 142/79
[2020-05-06] MEDS: CALCIUM CARB/VIT D3 500/200 TABLET. PO SCH ×2 (08:00→17:37)
[2020-05-06] MEDS: PANTOPRAZOLE 40 MG TABLET.DR. PO SCH ×2 (09:01→21:14)
[2020-05-06] MEDS: FOLIC/VIT B COMP W-C (RENAL) TABLET. PO SCH (09:01)
[2020-05-06] MEDS: INSULIN LISPRO 300 UNITS/3 ML VIAL. SQ SCH ×7 (09:10→21:00)
[2020-05-06] MEDS: IV NORMAL SALINE 1000ML BAG 1,000 ML IV SCH (10:36)
[2020-05-06] MEDS: CALCIUM GLUCONATE IV SCH ×2 (10:50→16:03)
[2020-05-06] MEDS: DEXTROSE 5% IV SCH ×2 (10:50→16:03)
[2020-05-06 11:00] VITALS: BP 154/92
--- NOTE | 2020-05-06 11:32 | PDOC ---
Renal-Progress Notes Subjective Notes Notes NO NEW COMPLAINTS History of Present Illness Hx of present illness STABLE Vitals Vitals Vital Signs Date Time Temp Pulse Resp B/P (MAP) Pulse Ox O2 Delivery O2 Flow Rate FiO2 05/06/20 10:05 16 Room Air 05/06/20 07:00 98.0 87 142/79 (100) 96 98.0 05/06/20 01:01 2.0 Weight Weight [ ] I.O. Intake and Output Intake and Output 05/06/20 07:00 Intake Total 1740 ml Balance 1740 ml Intake Oral 540 ml Other 1200 ml # Voids 2 Labs Labs Laboratory Tests Test 05/05/20 12:37 05/05/20 16:13 05/05/20 20:35 05/05/20 21:21 Glucose (Fingerstick) 223 mg/dL (70-99) 200 mg/dL (70-99) 52 mg/dL (70-99) 100 mg/dL (70-99) Test 05/06/20 04:15 05/06/20 07:55 Calcium Level 8.1 mg/dL (8.5-10.1) Glucose (Fingerstick) 187 mg/dL (70-99) Review of Systems Constitutional: yes: alert, oriented Ears/Nose/Throat: Yes: no symptom reported Eyes: Yes: no symptom reported Pulmonary: Yes no symptom reported Cardiovascular: Yes no symptom reported Gastrointestional: Yes: no symptom reported Genitourinary: Yes: no symptom reported Musculoskeletal: Yes: no symptom reported Skin: Yes no symptom reported Psychiatric/Neurological: Yes: no symptom reported Endocrine: Yes: no symptom reported Physical Exam General Appearance: no apparent distress Skin: warm Respiratory: bilateral CTA Heart: S1S2 Abdomen: soft, bowel sounds present Genitourinary: bladder flat Extremities: pulses present Neurology: alert Musculoskeletal: Other Assessment Assessment IMP ESRD S/P SUBTOTAL PARATHYROIDECTOMY HYPOCALCEMIA-HUNGRY BONES ANEMIA DM II HTN PLAN HD TOMORROW LEOPOLDO WHEN NEEDED SUPPLEMENT CALCIUM NEEDS TO STAY INPT TILL CA LEVELS STABILIZE STOP CA GTT FOR NOW AND REPEAT CA IN A FEW HOURS IF CA IS STABLE THEN D/C D/W ATTENDING ARIANNE UMANA MD May 06, 2020 11:32
--- NOTE | 2020-05-06 12:16 | NUR ---
SS following up with discharge planning. SS reviewed pt chart and discussed with pt RN. Pt is currently on room air. Discharge plan is to home when ready. Per RN, pt's calcium will be rechecked at 1500. Possible discharge to home today. SS will continue to follow for discharge planning.
--- NOTE | 2020-05-06 12:42 | PDOC ---
MASON NEVAREZ CARPENTER INSPECTOR 05/06/20 1242: SURGICAL PROGRESS NOTE Subjective up in room no complaints ca drip stopped, redraw level scheduled for 3 Vital Signs Vital Signs Date Time Temp Pulse Resp B/P (MAP) Pulse Ox O2 Delivery O2 Flow Rate FiO2 05/06/20 11:00 98.0 85 20 154/92 (112) 96 Room Air 98.0 05/06/20 01:01 2.0 I&O Intake and Output 05/06/20 07:00 Intake Total 1740 ml Balance 1740 ml Intake Oral 540 ml Other 1200 ml # Voids 2 General: Alert HEENT: Other (incisoin intact, no swelling ) Labs Laboratory Tests Test 05/04/20 16:47 05/04/20 17:32 05/04/20 21:06 05/05/20 03:50 Calcium Level 6.7 mg/dL (8.5-10.1) 6.6 mg/dL (8.5-10.1) Glucose (Fingerstick) 298 mg/dL (70-99) 304 mg/dL (70-99) Sodium Level 130 mmol/L (136-145) Potassium Level 5.0 mmol/L (3.5-5.1) Chloride Level 91 mmol/L (98-107) Carbon Dioxide Level 26 mmol/L (21-32) Anion Gap 13 (6-14) Blood Urea Nitrogen 61 mg/dL (8-26) Creatinine 13.0 mg/dL (0.7-1.3) Estimated GFR (Cockcroft-Gault) 5.2 Glucose Level 101 mg/dL (70-99) Phosphorus Level 4.8 mg/dL (2.6-4.7) Magnesium Level 2.2 mg/dL (1.8-2.4) Test 05/05/20 07:15 05/05/20 12:37 05/05/20 16:13 05/05/20 20:35 Glucose (Fingerstick) 157 mg/dL (70-99) 223 mg/dL (70-99) 200 mg/dL (70-99) 52 mg/dL (70-99) Test 05/05/20 21:21 05/06/20 04:15 05/06/20 07:55 05/06/20 12:22 Glucose (Fingerstick) 100 mg/dL (70-99) 187 mg/dL (70-99) 159 mg/dL (70-99) Calcium Level 8.1 mg/dL (8.5-10.1) Laboratory Tests Test 05/05/20 16:13 05/05/20 20:35 05/05/20 21:21 05/06/20 04:15 Glucose (Fingerstick) 200 mg/dL (70-99) 52 mg/dL (70-99) 100 mg/dL (70-99) Calcium Level 8.1 mg/dL (8.5-10.1) Test 05/06/20 07:55 05/06/20 12:22 Glucose (Fingerstick) 187 mg/dL (70-99) 159 mg/dL (70-99) Assessment/Plan await ca level Justicifation of Admission Dx: Justifications for Admission: Justification of Admission Dx: Yes Chronic Renal Failure: Electrolyte Abnormality HONG ROGER MD 05/06/20 1341: SURGICAL PROGRESS NOTE Assessment/Plan Agree with above MASON NEVAREZ APRN May 06, 2020 12:42 HONG ROGER MD May 06, 2020 13:41
[2020-05-06 15:00] VITALS: BP 147/96
--- NOTE | 2020-05-06 15:04 | PDOC ---
PROGRESS NOTES Chief Complaint Chief Complaint Assessment/Plan Assessment/Plan A/P: Secondary hyperparathyroidism - s/p left inferior/superior, right superior and right inferior sub-total parathyroidectomy and left inferior thyroid nodule resection. Q6hour calcium monitoring. ESRD - was on PD ,switched to HD - [facility]. Dr. Parks is his primary macadam raker. Consulted for HD management. Getting eval for renal Tx at [facility] DM2 with Blood Glucose very high - will give 25u TID and glargine per home regimen Chronic Diastolic CHF-Stable, On R HTN- continue antihypertensives GERD - will cont PPI HLD - cont statin GALINDO on CPAP - cont inpatient Anemia of chronic renal insufficiency - stable FEN - Renal ADA diet PPX - heparin with dialysis FULL CODE Dispo - inpatient for calcium monitoring, needs telemetry. electrolyte management as per nephrology financial planning consultant We will repeat calcium level at 3 PM Depending on the level he may need to go back on his calcium drip If it remains stable then patient can be discharged with [place] D2 tabs twice daily History of Present Illness History of Present Illness History of Present Illness Reason for Visit: Mr Villa is a 40 yo M w/ PMHx HTN, HLD, GALINDO on CPAP, DM2 on insulin, ESRD on HD (previously on PD), anemia of chronic renal insufficiency, and recent diagnosis of secondary hyperparathyroidism who is admitted today for post-operative management and calcium monitoring after symptomatic hypeparathyroidism with a left inferior/superior, right superior and right inferior sub-total parathyr oidectomy and left inferior thyroid nodule resection. Glucose 408 and has as sore throat post-operatively 05/04/2020 No acute events reported overnight, case discussed with nursing staff patient in no acute distress no complaints during my visit 05/05/2020 Patient seen in dialysis, no acute distress. Electrolyte disturbance noted. We will continue to replace with the help of our nephrology financial planning consultant 05/06/2020 No acute events reported overnight, case discussed with nursing staff patient in no acute distress no complaints during my visit Vitals Vitals Vital Signs Date Time Temp Pulse Resp B/P (MAP) Pulse Ox O2 Delivery O2 Flow Rate FiO2 05/06/20 11:00 98.0 85 20 154/92 (112) 96 Room Air 98.0 05/06/20 01:01 2.0 Physical Exam General: Alert Heart: Regular rate Lungs: Clear Abdomen: Normal bowel sounds, No tenderness Extremities: No cyanosis Skin: No breakdown Labs LABS Laboratory Tests Test 05/05/20 16:13 05/05/20 20:35 05/05/20 21:21 05/06/20 04:15 Glucose (Fingerstick) 200 mg/dL (70-99) 52 mg/dL (70-99) 100 mg/dL (70-99) Calcium Level 8.1 mg/dL (8.5-10.1) Test 05/06/20 07:55 05/06/20 12:22 Glucose (Fingerstick) 187 mg/dL (70-99) 159 mg/dL (70-99) Comment Review of Relevant I have reviewed the following items javy (where applicable) has been applied. Labs Laboratory Tests Test 05/04/20 16:47 05/04/20 17:32 05/04/20 21:06 05/05/20 03:50 Calcium Level 6.7 mg/dL (8.5-10.1) 6.6 mg/dL (8.5-10.1) Glucose (Fingerstick) 298 mg/dL (70-99) 304 mg/dL (70-99) Sodium Level 130 mmol/L (136-145) Potassium Level 5.0 mmol/L (3.5-5.1) Chloride Level 91 mmol/L (98-107) Carbon Dioxide Level 26 mmol/L (21-32) Anion Gap 13 (6-14) Blood Urea Nitrogen 61 mg/dL (8-26) Creatinine 13.0 mg/dL (0.7-1.3) Estimated GFR (Cockcroft-Gault) 5.2 Glucose Level 101 mg/dL (70-99) Phosphorus Level 4.8 mg/dL (2.6-4.7) Magnesium Level 2.2 mg/dL (1.8-2.4) Test 05/05/20 07:15 05/05/20 12:37 05/05/20 16:13 05/05/20 20:35 Glucose (Fingerstick) 157 mg/dL (70-99) 223 mg/dL (70-99) 200 mg/dL (70-99) 52 mg/dL (70-99) Test 05/05/20 21:21 05/06/20 04:15 05/06/20 07:55 05/06/20 12:22 Glucose (Fingerstick) 100 mg/dL (70-99) 187 mg/dL (70-99) 159 mg/dL (70-99) Calcium Level 8.1 mg/dL (8.5-10.1) Laboratory Tests Test 05/05/20 16:13 05/05/20 20:35 05/05/20 21:21 05/06/20 04:15 Glucose (Fingerstick) 200 mg/dL (70-99) 52 mg/dL (70-99) 100 mg/dL (70-99) Calcium Level 8.1 mg/dL (8.5-10.1) Test 05/06/20 07:55 05/06/20 12:22 Glucose (Fingerstick) 187 mg/dL (70-99) 159 mg/dL (70-99) Medications Current Medications Ondansetron HCl (Zofran) 4 mg PRN Q6HRS PRN IV NAUSEA/VOMITING; Start 05/02/20 at 07:00; Stop 05/03/20 at 06:59; Status DC Fentanyl Citrate (Fentanyl 2ml Vial) 25 mcg PRN Q5MIN PRN IV MILD PAIN 1-3; Start 05/02/20 at 07:00; Stop 05/03/20 at 06:59; Status DC Fentanyl Citrate (Fentanyl 2ml Vial) 50 mcg PRN Q5MIN PRN IV MODERATE TO SEVERE PAIN Last administered on 05/02/20at 13:27; Start 05/02/20 at 07:00; Stop 04/14 11/02 at 06:59; Status DC Morphine Sulfate (Morphine Sulfate) 1 mg PRN Q10MIN PRN IV SEVERE PAIN 7-10; Start 05/02/20 at 07:00; Stop 05/03/20 at 06:59; Status DC Ringer's Solution 1,000 ml @ 30 mls/hr Q24H IV ; Start 05/02/20 at 07:00; Stop 05/02/20 at 18:59; Status DC Lidocaine HCl (Xylocaine-Mpf 1% 2ml Vial) 2 ml PRN 1X PRN ID PRIOR TO IV START; Start 05/02/20 at 07:00; Stop 05/03/20 at 06:59; Status DC Hydromorphone HCl (Dilaudid) 0.5 mg PRN Q10MIN PRN IV SEV PAIN, Second choice; Start 05/02/20 at 07:00; Stop 05/03/20 at 06:59; Status DC Prochlorperazine Edisylate (Compazine) 5 mg PACU PRN PRN IV NAUSEA, MRX1; Start 05/02/20 at 07:00; Stop 05/03/20 at 06:59; Status DC Cefazolin Sodium/ Dextrose 50 ml @ 100 mls/hr 1X PREOP PRN IV PRIOR TO PROCE DURE Last administered on 05/02/20at 07:40; Start 05/02/20 at 08:00; Stop 05/02/20 at 18:00; Status DC Insulin Human Lispro (HumaLOG VIAL for OP,RR ONLY) 0-10 units PRN Q1HR PRN SQ PER PROTOCOL Last administered on 05/02/20at 16:21; Start 05/02/20 at 07:15; Stop 05/03/20 at 07:14; Status DC Sodium Chloride 1,000 ml @ 0 mls/hr Q0M IV Last administered on 05/02/20at 07:24; Start 05/02/20 at 07:15; Stop 05/05/20 at 15:16; Status DC Propofol (Diprivan) 200 mg STK-MED ONCE IV ; Start 05/02/20 at 07:32; Stop 05/02/20 at 07:32; Status DC Lidocaine HCl (Xylocaine-Mpf 1% 5ml Vial) 5 ml STK-MED ONCE .ROUTE ; Start 05/02/20 at 07:32; Stop 05/02/20 at 07:32; Status DC Midazolam HCl (Versed) 2 mg STK-MED ONCE .ROUTE ; Start 05/02/20 at 07:32; Stop 05/02/20 at 07:33; Status DC Fentanyl Citrate (Fentanyl 5ml Vial) 250 mcg STK-MED ONCE .ROUTE ; Start 05/02/20 at 07:32; Stop 05/02/20 at 07:33; Status DC Succinylcholine Chloride (Anectine) 200 mg STK-MED ONCE .ROUTE ; Start 05/02/20 at 07:33; Stop 05/02/20 at 07:33; Status DC Ondansetron HCl (Zofran) 4 mg STK-MED ONCE .ROUTE ; Start 05/02/20 at 07:36; Stop 05/02/20 at 07:36; Status DC Dexamethasone Sodium Phosphate (Decadron) 4 mg STK-MED ONCE .ROUTE ; Start 05/02/20 at 07:36; Stop 05/02/20 at 07:36; Status DC Desflurane (Suprane) 60 ml STK-MED ONCE IH ; Start 05/02/20 at 07:52; Stop 05/02/20 at 07:52; Status DC Sevoflurane (Ultane) 60 ml STK-MED ONCE IH ; Start 05/02/20 at 07:52; Stop 05/02/20 at 07:52; Status DC Rocuronium [place] (Zemuron) 50 mg STK-MED ONCE .ROUTE ; Start 05/02/20 at 07:56; Stop 05/02/20 at 07:57; Status DC Dexamethasone Sodium Phosphate (Decadron) 4 mg STK-MED ONCE .ROUTE ; Start 05/02/20 at 08:11; Stop 05/02/20 at 08:11; Status DC Phenylephrine HCl (PHENYLEPHRINE in 0.9% NACL PF) 1 mg STK-MED ONCE IV ; Start 05/02/20 at 08:11; Stop 05/02/20 at 08:11; Status DC Ephedrine Sulfate (ePHEDrine PF IN SALINE SYRINGE) 50 mg STK-MED ONCE IV ; Start 05/02/20 at 08:11; Stop 05/02/20 at 08:11; Status DC Phenylephrine HCl (Ham-Synephrine Inj) 10 mg STK-MED ONCE .ROUTE ; Start 05/02/20 at 08:12; Stop 05/02/20 at 08:13; Status DC Sodium Chloride (Normal Saline Flush) 3 ml QSHIFT PRN IV AFTER MEDS AND BLOOD DRAWS; Start 05/02/20 at 10:45 Sodium Chloride 1,000 ml @ 60 mls/hr [id number] IV ; Start 05/02/20 at 10:36; Stop 05/04/20 at 11:17; Status DC Oxycodone/ Acetaminophen (Percocet 5/325) 1 tab PRN Q4HRS PRN PO MILD PAIN, 1ST CHOICE Last administered on 05/06/20at 00:01; Start 05/02/20 at 10:45 Oxycodone/ Acetaminophen (Percocet 5/325) 2 tab PRN Q4HRS PRN PO MODERATE PAIN, SEVERE PAIN Last administered on 05/06/20at 09:05; Start 05/02/20 at 10:45 Naloxone HCl (Narcan) 0.4 mg PRN Q2MIN PRN IV SEE INSTRUCTIONS; Start 05/02/20 at 10:45 Sodium Chloride 1,000 ml @ 25 mls/hr Q24H IV ; Start 05/02/20 at 10:36 Hydromorphone HCl (Dilaudid) 0.2 mg PRN Q1HR PRN IV PAIN Last administered on 05/02/20at 23:22; Start 05/02/20 at 10:45 Ondansetron HCl (Zofran) 4 mg PRN Q6HRS PRN IVP NAUESA, 1ST CHOICE Last administered on 05/04/20at 23:01; Start 05/02/20 at 10:45 Fentanyl Citrate (Fentanyl 2ml Vial) 100 mcg STK-MED ONCE .ROUTE ; Start 05/02/20 at 11:46; Stop 05/02/20 at 11:46; Status DC Fentanyl Citrate (Fentanyl 2ml Vial) 100 mcg STK-MED ONCE .ROUTE ; Start 05/02/20 at 12:17; Stop 05/02/20 at 12:17; Status DC Pantoprazole Sodium (Protonix) 40 mg 1X ONCE PO Last administered on 05/02/20at 15:18; Start 05/02/20 at 15:15; Stop 05/02/20 at 15:16; Status DC Atorvastatin Calcium (Lipitor) 10 mg HS PO Last administered on 05/05/20at 20:47; Start 05/02/20 at 21:00 Polyethylene Glycol (miraLAX PACKET) 17 gm PRN DAILY PRN PO CONSTIPATION; Start 05/02/20 at 15:45 Insulin Human Lispro (HumaLOG) 12 units TIDWMEALS SQ Last administered on 05/06/20at 12:28; Start 05/02/20 at 17:30 Insulin Glargine (Lantus Syringe) 20 unit QHS SQ Last administered on 05/05/20at 21:57; Start 05/02/20 at 21:00 Pantoprazole Sodium (Protonix) 40 mg DAILYAC PO Last administered on 05/03/20at 13:17; Start 05/03/20 at 07:30; Stop 05/03/20 at 22:01; Status DC Vitamin B Complex/ Vitamin C (Johanna-Celia) 1 tab DAILY PO Last administered on 05/06/20at 09:01; Start 05/03/20 at 09:00 Insulin Human Lispro (HumaLOG) 0-7 UNITS TIDACHC SQ Last administered on 05/06/20at 12:29; Start 05/02/20 at 17:30 Dextrose (Dextrose 50%-Water Syringe) 12.5 gm PRN Q15MIN PRN IV SEE COMMENTS; Start 05/02/20 at 15:45 Phenol (Chloraseptic) 1 spray PRN Q2HR PRN PO SORE THROAT, 2ND CHOICE; Start 05/02/20 at 17:00 Throat Lozenges (Cepacol Sore Throat Lozenge) 1 afshan PRN Q2HRS PRN PO SORE THROAT, 1ST CHOICE Last administered on 05/05/20at 20:46; Start 05/02/20 at 17:00 Calcium Gluconate (Calcium Gluconate) 1,000 mg 1X ONCE IVP Last administered on 05/02/20at 18:55; Start 05/02/20 at 18:30; Stop 05/02/20 at 18:31; Status DC Calcium Gluconate 3000 mg/Dextrose 1,030 ml @ 60 mls/hr [id number] IV Last administered on 05/02/20at 19:24; Start 05/02/20 at 19:00; Stop 05/03/20 at 11:00; Status DC Calcium Gluconate 3000 mg/Dextrose 1,030 ml @ 60 mls/hr [id number] IV ; Start 05/02/20 at 19:00; Status Cancel Calcium Gluconate (Calcium Gluconate) 2,000 mg 1X ONCE IVP Last administered on 05/03/20at 05:15; Start 05/03/20 at 05:30; Stop 05/03/20 at 05:31; Status DC Sodium Chloride 1,000 ml @ 1,000 mls/hr Q1H PRN IV hypotension; Start 05/03/20 at 07:52; Stop 05/03/20 at 13:51; Status DC Sodium Chloride 1,000 ml @ 400 mls/hr Q2H30M PRN IV PATENCY; Start 05/03/20 at 07:52; Stop 05/03/20 at 19:51; Status DC Info (PHARMACY MONITORING -- do not chart) 1 each PRN DAILY PRN MC SEE COMMENTS; Start 05/03/20 at 08:00; Stop 05/03/20 at 17:02; Status DC Info (PHARMACY MONITORING -- do not chart) 1 each PRN DAILY PRN MC SEE COMMENTS; Start 05/03/20 at 08:00; Status Cancel Calcium/Vitamin D (Oscal D 500mg/ 200uts) 2 tab BIDWMEALS PO Last administered on 05/06/20at 08:00; Start 05/03/20 at 17:00 Cefazolin Sodium/ Dextrose (Ancef 2gm Premix) 2 gm STK-MED ONCE IV ; Start 05/02/20 at 08:00; Stop 05/03/20 at 12:58; Status DC Pantoprazole Sodium (Protonix) 40 mg BID PO Last administered on 05/06/20at 09:01; Start 05/03/20 at 22:30 Calcium Gluconate 3000 mg/Dextrose 1,030 ml @ 100 mls/hr [id number] IV Last administered on 05/06/20at 10:50; Start 05/04/20 at 00:00 Fluticasone Propionate (Flonase) 2 spray QHS NS Last administered on 05/05/20at 20:47; Start 05/04/20 at 21:00 Cetirizine HCl (ZyrTEC) 10 mg PRN DAILY PRN PO ALLERGIES; Start 05/04/20 at 18:15; Stop 05/04/20 at 19:32; Status DC Cetirizine HCl (ZyrTEC) 10 mg QHS PO Last administered on 05/05/20at 20:46; Start 05/04/20 at 21:00 Sodium Chloride 1,000 ml @ 1,000 mls/hr Q1H PRN IV hypotension; Start 05/05/20 at 07:33; Stop 05/05/20 at 13:32; Status DC Sodium Chloride 1,000 ml @ 400 mls/hr Q2H30M PRN IV PATENCY; Start 05/05/20 at 07:33; Stop 05/05/20 at 19:32; Status DC Info (PHARMACY MONITORING -- do not chart) 1 each PRN DAILY PRN MC SEE COMMENTS; Start 05/05/20 at 07:45 Insulin Human Lispro (HumaLOG VIAL for OP,RR ONLY) 2 unit STK-MED ONCE SQ ; Start 05/02/20 at 16:30; Stop 05/05/20 at 10:10; Status DC Insulin Human Lispro (HumaLOG VIAL for OP,RR ONLY) 10 unit STK-MED ONCE SQ ; Start 05/02/20 at 16:30; Stop 05/05/20 at 10:10; Status DC Insulin Human Lispro (HumaLOG VIAL for OP,RR ONLY) 10 unit STK-MED ONCE SQ ; Start 05/02/20 at 16:30; Stop 05/05/20 at 10:10; Status DC Active Scripts Active Reported Miralax (Polyethylene Glycol 3350) 17 Gm Powd.pack 1 Packet PO PRN PRN 2 Days dissolve in water Atorvastatin Calcium 10 Mg Tablet 10 Mg PO HS [auryxia] 630 Mg PO TIDAC Protonix (Pantoprazole Sodium) 20 Mg Tablet.dr 2 Tab PO DAILY Furosemide 80 Mg Tablet 1 Tab PO TID Vitamin D (Cholecalciferol (Vitamin D3)) 5,000 Unit Tablet 5,000 Unit PO DAILY Johanna-Celia Rx Tablet (Vit B Cmplx 3/Fa/Vit C/Biotin) 1 Each Tablet 1 Each PO DAILY Sensipar (Cinacalcet Hcl) 60 Mg Tablet 90 Mg PO DAILY Novolog (Insulin Aspart) 100 Unit/1 Ml Vial 12 Unit SQ TIDAC sliding scale Lantus Solostar (Insulin Glargine,Hum.rec.anlog) 100 Unit/1 Ml Insuln.pen 20 Unit SQ HS Vitals/I & O Vital Sign - Last 24 Hours 05/05/20 05/05/20 05/05/20 05/05/20 19:00 19:46 20:15 23:33 Temp 98.0 98.1 98.0 98.1 Pulse 100 98 Resp 19 18 18 B/P (MAP) 153/93 (113) 144/82 (102) Pulse Ox 99 99 100 O2 Delivery Room Air Room Air Room Air Room Air O2 Flow Rate 2.0 2.0 05/06/20 05/06/20 05/06/20 05/06/20 00:01 01:01 03:00 07:00 Temp 98.0 98.0 98.0 98.0 Pulse 89 87 Resp 18 18 18 20 B/P (MAP) 135/81 (99) 142/79 (100) Pulse Ox 100 100 98 96 O2 Delivery Room Air Room Air Room Air Room Air O2 Flow Rate 2.0 2.0 05/06/20 05/06/20 05/06/20 05/06/20 08:00 09:05 10:05 11:00 Temp 98.0 98.0 Pulse 85 Resp 18 16 20 B/P (MAP) 154/92 (112) Pulse Ox 96 O2 Delivery Room Air Room Air Room Air Room Air Intake and Output 05/05/20 05/05/20 05/06/20 15:00 23:00 07:00 Intake Total 540 ml 1200 ml Balance 540 ml 1200 ml Justicifation of Admission Dx: Justifications for Admission: Justification of Admission Dx: Yes Chronic Renal Failure: Electrolyte Abnormality ACOSTA OSPINA MD May 06, 2020 15:04
[2020-05-06 19:45] VITALS: BP 150/92
[2020-05-06] MEDS: FLUTICASONE 50MCG/NASAL SPRAY 16GM BOTTLE. NS SCH (21:14)
[2020-05-06] MEDS: CETIRIZINE HCL 10 MG TABLET. PO SCH (21:14)
[2020-05-06] MEDS: ATORVASTATIN CALCIUM 10 MG TABLET. PO SCH (21:14)
[2020-05-06] MEDS: INSULIN GLARGINE SYRINGE. SQ SCH (21:17)
[2020-05-06] MEDS: ONDANSETRON PF 4 MG/2 ML VIAL. IVP PRN (21:21)
[2020-05-06 22:37] VITALS: BP 172/107
[2020-05-07] VITALS (7 sets, daily range): BP systolic 163–199; BP diastolic 91–117
[2020-05-07] MEDS: CALCIUM GLUCONATE IV SCH ×3 (01:27→22:25)
[2020-05-07] MEDS: DEXTROSE 5% IV SCH ×3 (01:27→22:25)
[2020-05-07] MEDS: oxyCODONE/APAP 5/325 1 TAB TABLET PO PRN ×3 (01:29→22:58)
[2020-05-07] MEDS: hydrALAZINE 20 MG/ML VIAL. IVP PRN ×2 (02:28→15:31)
[2020-05-07] MEDS: ONDANSETRON PF 4 MG/2 ML VIAL. IVP PRN ×2 (02:49→08:55)
[2020-05-07] MEDS ORDERED: INSULIN LISPRO 300 UNITS/3 ML VIAL. SQ SCH (05:15)
[2020-05-07] MEDS: INSULIN LISPRO 300 UNITS/3 ML VIAL. SQ SCH ×7 (08:00→21:00)
[2020-05-07] MEDS ORDERED: IV NORMAL SALINE 1000ML BAG 1,000 ML IV PRN ×2 (08:02)
[2020-05-07] MEDS: CALCIUM CARB/VIT D3 500/200 TABLET. PO SCH ×2 (08:09→17:21)
[2020-05-07] MEDS: FOLIC/VIT B COMP W-C (RENAL) TABLET. PO SCH (08:09)
[2020-05-07] MEDS: PANTOPRAZOLE 40 MG TABLET.DR. PO SCH ×2 (08:09→21:15)
[2020-05-07] MEDS ORDERED: DIALYSIS PATIENT. MC PRN ×2 (08:15)
[2020-05-07] MEDS ORDERED: ALBUMIN HUMAN 25% 200 ML IV PRN (08:15)
--- NOTE | 2020-05-07 09:22 | PDOC ---
PROGRESS NOTES Chief Complaint Chief Complaint Assessment/Plan Assessment/Plan A/P: Secondary hyperparathyroidism - s/p left inferior/superior, right superior and right inferior sub-total parathyroidectomy and left inferior thyroid nodule resection. Q6hour calcium monitoring. ESRD - was on PD ,switched to HD - [facility]. 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 Consulted for HD management. Getting eval for renal Tx at [facility] DM2 with Blood Glucose very high - will give 25u TID and glargine per home regimen Chronic Diastolic CHF-Stable, On R HTN- continue antihypertensives GERD - will cont PPI HLD - cont statin GALINDO on CPAP - cont inpatient Anemia of chronic renal insufficiency - stable FEN - Renal ADA diet PPX - heparin with dialysis FULL CODE Dispo - inpatient for calcium monitoring, needs telemetry. electrolyte management as per nephrology network security consultant will continue with calcium infusion given lab work symptomatic relief of symptoms History of Present Illness History of Present Illness History of Present Illness Reason for Visit: Mr Villa is a 40 yo M w/ PMHx HTN, HLD, GALINDO on CPAP, DM2 on insulin, ESRD on HD (previously on PD), anemia of chronic renal insufficiency, and recent diagnosis of secondary hyperparathyroidism who is admitted today for post-operative man agement and calcium monitoring after symptomatic hypeparathyroidism with a left inferior/superior, right superior and right inferior sub-total parathyroidectomy and left inferior thyroid nodule resection. Glucose 408 and has as sore throat post-operatively 05/04/2020 No acute events reported overnight, case discussed with nursing staff patient in no acute distress no complaints during my visit 05/05/2020 Patient seen in dialysis, no acute distress. Electrolyte disturbance noted. We will continue to replace with the help of our nephrology network security consultant 05/06/2020 No acute events reported overnight, case discussed with nursing staff patient in no acute distress no complaints during my visit Patient feeling nauseous, could not sleep due to symptoms, seems acutely ill, hemodynamically stable, reassurance provided, will follow rec from network security consultant. Vitals Vitals Vital Signs Date Time Temp Pulse Resp B/P (MAP) Pulse Ox O2 Delivery O2 Flow Rate FiO2 05/07/20 07:00 97.9 109 20 199/116 (143) 99 Room Air 97.9 05/07/20 02:29 2.0 Physical Exam General: Alert Heart: Regular rate Lungs: Clear Abdomen: Normal bowel sounds, No tenderness Extremities: No cyanosis Skin: No breakdown Labs LABS Laboratory Tests Test 05/06/20 12:22 05/06/20 15:30 05/06/20 16:53 05/06/20 21:13 Glucose (Fingerstick) 159 mg/dL (70-99) 91 mg/dL (70-99) 85 mg/dL (70-99) Calcium Level 7.4 mg/dL (8.5-10.1) Test 05/07/20 02:56 05/07/20 03:40 05/07/20 04:35 05/07/20 07:40 Glucose (Fingerstick) 127 mg/dL (70-99) 289 mg/dL (70-99) 310 mg/dL (70-99) Calcium Level 7.5 mg/dL (8.5-10.1) Review of Systems Review of Systems pertinent as per hpi otherwise 10 point ROS negative. Comment Review of Relevant I have reviewed the following items javy (where applicable) has been applied. Labs Laboratory Tests Test 05/05/20 12:37 05/05/20 16:13 05/05/20 20:35 05/05/20 21:21 Glucose (Fingerstick) 223 mg/dL (70-99) 200 mg/dL (70-99) 52 mg/dL (70-99) 100 mg/dL (70-99) Test 05/06/20 04:15 05/06/20 07:55 05/06/20 12:22 05/06/20 15:30 Calcium Level 8.1 mg/dL (8.5-10.1) 7.4 mg/dL (8.5-10.1) Glucose (Fingerstick) 187 mg/dL (70-99) 159 mg/dL (70-99) Test 05/06/20 16:53 05/06/20 21:13 05/07/20 02:56 05/07/20 03:40 Glucose (Fingerstick) 91 mg/dL (70-99) 85 mg/dL (70-99) 127 mg/dL (70-99) Calcium Level 7.5 mg/dL (8.5-10.1) Test 05/07/20 04:35 05/07/20 07:40 Glucose (Fingerstick) 289 mg/dL (70-99) 310 mg/dL (70-99) Laboratory Tests Test 05/06/20 12:22 05/06/20 15:30 05/06/20 16:53 05/06/20 21:13 Glucose (Fingerstick) 159 mg/dL (70-99) 91 mg/dL (70-99) 85 mg/dL (70-99) Calcium Level 7.4 mg/dL (8.5-10.1) Test 05/07/20 02:56 05/07/20 03:40 05/07/20 04:35 05/07/20 07:40 Glucose (Fingerstick) 127 mg/dL (70-99) 289 mg/dL (70-99) 310 mg/dL (70-99) Calcium Level 7.5 mg/dL (8.5-10.1) Medications Current Medications Ondansetron HCl (Zofran) 4 mg PRN Q6HRS PRN IV NAUSEA/VOMITING; Start 05/02/20 at 07:00; Stop 05/03/20 at 06:59; Status DC Fentanyl Citrate (Fentanyl 2ml Vial) 25 mcg PRN Q5MIN PRN IV MILD PAIN 1-3; Start 05/02/20 at 07:00; Stop 05/03/20 at 06:59; Status DC Fentanyl Citrate (Fentanyl 2ml Vial) 50 mcg PRN Q5MIN PRN IV MODERATE TO SEVERE PAIN Last administered on 05/02/20at 13:27; Start 05/02/20 at 07:00; Stop 05/03/20 at 06:59; Status DC Morphine Sulfate (Morphine Sulfate) 1 mg PRN Q10MIN PRN IV SEVERE PAIN 7-10; Start 05/02/20 at 07:00; Stop 05/03/20 at 06:59; Status DC Ringer's Solution 1,000 ml @ 30 mls/hr Q24H IV ; Start 05/02/20 at 07:00; Stop 05/02/20 at 18:59; Status DC Lidocaine HCl (Xylocaine-Mpf 1% 2ml Vial) 2 ml PRN 1X PRN ID PRIOR TO IV START; Start 05/02/20 at 07:00; Stop 05/03/20 at 06:59; Status DC Hydromorphone HCl (Dilaudid) 0.5 mg PRN Q10MIN PRN IV SEV PAIN, Second choice; Start 05/02/20 at 07:00; Stop 05/03/20 at 06:59; Status DC Prochlorperazine Edisylate (Compazine) 5 mg PACU PRN PRN IV NAUSEA, MRX1; Start 05/02/20 at 07:00; Stop 05/03/20 at 06:59; Status DC Cefazolin Sodium/ Dextrose 50 ml @ 100 mls/hr 1X PREOP PRN IV PRIOR TO PROCEDURE Last administered on 05/02/20at 07:40; Start 05/02/20 at 08:00; Stop 05/02/20 at 18:00; Status DC Insulin Human Lispro (HumaLOG VIAL for OP,RR ONLY) 0-10 units PRN Q1HR PRN SQ PER PROTOCOL Last administered on 05/02/20at 16:21; Start 05/02/20 at 07:15; Stop 05/03/20 at 07:14; Status DC Sodium Chloride 1,000 ml @ 0 mls/hr Q0M IV Last administered on 05/02/20at 07:24; Start 05/02/20 at 07:15; Stop 05/05/20 at 15:16; Status DC Propofol (Diprivan) 200 mg STK-MED ONCE IV ; Start 05/02/20 at 07:32; Stop 05/02/20 at 07:32; Status DC Lidocaine HCl (Xylocaine-Mpf 1% 5ml Vial) 5 ml STK-MED ONCE .ROUTE ; Start 05/02/20 at 07:32; Stop 05/02/20 at 07:32; Status DC Midazolam HCl (Versed) 2 mg STK-MED ONCE .ROUTE ; Start 05/02/20 at 07:32; Stop 05/02/20 at 07:33; Status DC Fentanyl Citrate (Fentanyl 5ml Vial) 250 mcg STK-MED ONCE .ROUTE ; Start 05/02/20 at 07:32; Stop 05/02/20 at 07:33; Status DC Succinylcholine Chloride (Anectine) 200 mg STK-MED ONCE .ROUTE ; Start 05/02/20 at 07:33; Stop 05/02/20 at 07:33; Status DC Ondansetron HCl (Zofran) 4 mg STK-MED ONCE .ROUTE ; Start 05/02/20 at 07:36; Stop 05/02/20 at 07:36; Status DC Dexamethasone Sodium Phosphate (Decadron) 4 mg STK-MED ONCE .ROUTE ; Start 05/02/20 at 07:36; Stop 05/02/20 at 07:36; Status DC Desflurane (Suprane) 60 ml STK-MED ONCE IH ; Start 05/02/20 at 07:52; Stop 05/02/20 at 07:52; Status DC Sevoflurane (Ultane) 60 ml STK-MED ONCE IH ; Start 05/02/20 at 07:52; Stop 05/02/20 at 07:52; Status DC Rocuronium [place]et (Zemuron) 50 mg STK-MED ONCE .ROUTE ; Start 05/02/20 at 07:56; Stop 05/02/20 at 07:57; Status DC Dexamethasone Sodium Phosphate (Decadron) 4 mg STK-MED ONCE .ROUTE ; Start at 08:11; Stop 05/02/20 at 08:11; Status DC Phenylephrine HCl (PHENYLEPHRINE in 0.9% NACL PF) 1 mg STK-MED ONCE IV ; Start 05/02/20 at 08:11; Stop 05/02/20 at 08:11; Status DC Ephedrine Sulfate (ePHEDrine PF IN SALINE SYRINGE) 50 mg STK-MED ONCE IV ; Start 05/02/20 at 08:11; Stop 05/02/20 at 08:11; Status DC Phenylephrine HCl (Ham-Synephrine Inj) 10 mg STK-MED ONCE .ROUTE ; Start 05/02/20 at 08:12; Stop 05/02/20 at 08:13; Status DC Sodium Chloride (Normal Saline Flush) 3 ml QSHIFT PRN IV AFTER MEDS AND BLOOD DRAWS; Start 05/02/20 at 10:45 Sodium Chloride 1,000 ml @ 60 mls/hr [id number] IV ; Start 05/02/20 at 10:36; Stop 05/04/20 at 11:17; Status DC Oxycodone/ Acetaminophen (Percocet 5/325) 1 tab PRN Q4HRS PRN PO MILD PAIN, 1ST CHOICE Last administered on 05/07/20at 01:29; Start 05/02/20 at 10:45 Oxycodone/ Acetaminophen (Percocet 5/325) 2 tab PRN Q4HRS PRN PO MODERATE PAIN, SEVERE PAIN Last administered on 05/06/20at 17:39; Start 05/02/20 at 10:45 Naloxone HCl (Narcan) 0.4 mg PRN Q2MIN PRN IV SEE INSTRUCTIONS; Start 05/02/20 at 10:45 Sodium Chloride 1,000 ml @ 25 mls/hr Q24H IV ; Start 05/02/20 at 10:36 Hydromorphone HCl (Dilaudid) 0.2 mg PRN Q1HR PRN IV PAIN Last administered on 05/02/20at 23:22; Start 05/02/20 at 10:45 Ondansetron HCl (Zofran) 4 mg PRN Q6HRS PRN IVP NAUESA, 1ST CHOICE Last administered on 05/07/20at 08:55; Start 05/02/20 at 10:45 Fentanyl Citrate (Fentanyl 2ml Vial) 100 mcg STK-MED ONCE .ROUTE ; Start 05/02/20 at 11:46; Stop 05/02/20 at 11:46; Status DC Fentanyl Citrate (Fentanyl 2ml Vial) 100 mcg STK-MED ONCE .ROUTE ; Start 05/02/20 at 12:17; Stop 05/02/20 at 12:17; Status DC Pantoprazole Sodium (Protonix) 40 mg 1X ONCE PO Last administered on 05/02/20at 15:18; Start 05/02/20 at 15:15; Stop 05/02/20 at 15:16; Status DC Atorvastatin Calcium (Lipitor) 10 mg HS PO Last administered on 05/06/20at 21:14; Start 05/02/20 at 21:00 Polyethylene Glycol (miraLAX PACKET) 17 gm PRN DAILY PRN PO CONSTIPATION; Start 05/02/20 at 15:45 Insulin Human Lispro (HumaLOG) 12 units TIDWMEALS SQ Last administered on 05/06/20at 17:45; Start 05/02/20 at 17:30 Insulin Glargine (Lantus Syringe) 20 unit QHS SQ Last administered on 05/06/20 21:17; Start 05/02/20 at 21:00 Pantoprazole Sodium (Protonix) 40 mg DAILYAC PO Last administered on 05/03/20at 13:17; Start 05/03/20 at 07:30; Stop 05/03/20 at 22:01; Status DC Vitamin B Complex/ Vitamin C (Johanna-Celia) 1 tab DAILY PO Last administered on 05/07/20at 08:09; Start 05/03/20 at 09:00 Insulin Human Lispro (HumaLOG) 0-7 UNITS TIDACHC SQ Last administered on at 08:15; Start 05/02/20 at 17:30 Dextrose (Dextrose 50%-Water Syringe) 12.5 gm PRN Q15MIN PRN IV SEE COMMENTS; Start 05/02/20 at 15:45 Phenol (Chloraseptic) 1 spray PRN Q2HR PRN PO SORE THROAT, 2ND CHOICE; Start 05/02/20 at 17:00 Throat Lozenges (Cepacol Sore Throat Lozenge) 1 afshan PRN Q2HRS PRN PO SORE THROAT, 1ST CHOICE Last administered on 05/05/20at 20:46; Start 05/02/20 at 17:00 Calcium Gluconate (Calcium Gluconate) 1,000 mg 1X ONCE IVP Last administered on 05/02/20at 18:55; Start 05/02/20 at 18:30; Stop 05/02/20 at 18:31; Status DC Calcium Gluconate 3000 mg/Dextrose 1,030 ml @ 60 mls/hr [id number] IV Last administered on 05/02/20at 19:24; Start 05/02/20 at 19:00; Stop 05/03/20 at 11:00; Status DC Calcium Gluconate 3000 mg/Dextrose 1,030 ml @ 60 mls/hr [id number] IV ; Start 05/02/20 at 19:00; Status Cancel Calcium Gluconate (Calcium Gluconate) 2,000 mg 1X ONCE IVP Last administered on 05/03/20at 05:15; Start 05/03/20 at 05:30; Stop 05/03/20 at 05:31; Status DC Sodium Chloride 1,000 ml @ 1,000 mls/hr Q1H PRN IV hypotension; Start 05/03/20 at 07:52; Stop 05/03/20 at 13:51; Status DC Sodium Chloride 1,000 ml @ 400 mls/hr Q2H30M PRN IV PATENCY; Start 05/03/20 at 07:52; Stop 05/03/20 at 19:51; Status DC Info (PHARMACY MONITORING -- do not chart) 1 each PRN DAILY PRN MC SEE COMMENTS; Start 05/03/20 at 08:00; Stop 05/03/20 at 17:02; Status DC Info (PHARMACY MONITORING -- do not chart) 1 each PRN DAILY PRN MC SEE COMMENTS; Start 05/03/20 at 08:00; Status Cancel Calcium/Vitamin D (Oscal D 500mg/ 200uts) 2 tab BIDWMEALS PO Last administered on 05/07/20at 08:09; Start 05/03/20 at 17:00 Cefazolin Sodium/ Dextrose (Ancef 2gm Premix) 2 gm STK-MED ONCE IV ; Start 05/02/20 at 08:00; Stop 05/03/20 at 12:58; Status DC Pantoprazole Sodium (Protonix) 40 mg BID PO Last administered on 05/07/20at 08:09; Start 05/03/20 at 22:30 Calcium Gluconate 3000 mg/Dextrose 1,030 ml @ 100 mls/hr [id number] IV Last administered on 05/07/20at 01:27; Start 05/04/20 at 00:00 Fluticasone Propionate (Flonase) 2 spray QHS NS Last administered on 05/06/20at 21:14; Start 05/04/20 at 21:00 Cetirizine HCl (ZyrTEC) 10 mg PRN DAILY PRN PO ALLERGIES; Start 05/04/20 at 18:15; Stop 05/04/20 at 19:32; Status DC Cetirizine HCl (ZyrTEC) 10 mg QHS PO Last administered on 05/06/20at 21:14; Start 05/04/20 at 21:00 Sodium Chloride 1,000 ml @ 1,000 mls/hr Q1H PRN IV hypotension; Start 05/05/20 at 07:33; Stop 05/05/20 at 13:32; Status DC Sodium Chloride 1,000 ml @ 400 mls/hr Q2H30M PRN IV PATENCY; Start 05/05/20 at 07:33; Stop 05/05/20 at 19:32; Status DC Info (PHARMACY MONITORING -- do not chart) 1 each PRN DAILY PRN MC SEE COMMENTS; Start 05/05/20 at 07:45 Insulin Human Lispro (HumaLOG VIAL for OP,RR ONLY) 2 unit STK-MED ONCE SQ ; Start 05/02/20 at 16:30; Stop 05/05/20 at 10:10; Status DC Insulin Human Lispro (HumaLOG VIAL for OP,RR ONLY) 10 unit STK-MED ONCE SQ ; Start 05/02/20 at 16:30; Stop 05/05/20 at 10:10; Status DC Insulin Human Lispro (HumaLOG VIAL for OP,RR ONLY) 10 unit STK-MED ONCE SQ ; Start 05/02/20 at 16:30; Stop 05/05/20 at 10:10; Status DC Hydralazine HCl (Apresoline Inj) 10 mg PRN Q4HRS PRN IVP ELEVATED BP, SEE COMMENTS Last administered on 05/07/20at 02:28; Start 05/07/20 at 02:30 Insulin Human Lispro (HumaLOG) 3 units 1X SQ ; Start 05/07/20 at 05:15 Sodium Chloride 1,000 ml @ 1,000 mls/hr Q1H PRN IV hypotension; Start 05/07/20 at 08:02; Stop 05/07/20 at 14:01 Albumin Human 200 ml @ 200 mls/hr 1X PRN PRN IV Hypotension; Start 05/07/20 at 08:15; Stop 05/07/20 at 14:14 Sodium Chloride 1,000 ml @ 400 mls/hr Q2H30M PRN IV PATENCY; Start 05/07/20 at 08:02; Stop 05/07/20 at 20:01 Info (PHARMACY MONITORING -- do not chart) 1 each PRN DAILY PRN MC SEE COMM ENTS; Start 05/07/20 at 08:15; Status UNV Info (PHARMACY MONITORING -- do not chart) 1 each PRN DAILY PRN MC SEE COMMENTS; Start 05/07/20 at 08:15 Active Scripts Active Reported Miralax (Polyethylene Glycol 3350) 17 Gm Powd.pack 1 Packet PO PRN PRN 2 Days dissolve in water Atorvastatin Calcium 10 Mg Tablet 10 Mg PO HS [auryxia] 630 Mg PO TIDAC Protonix (Pantoprazole Sodium) 20 Mg Tablet.dr 2 Tab PO DAILY Furosemide 80 Mg Tablet 1 Tab PO TID Vitamin D (Cholecalciferol (Vitamin D3)) 5,000 Unit Tablet 5,000 Unit PO DAILY Johanna-Celia Rx Tablet (Vit B Cmplx 3/Fa/Vit C/Biotin) 1 Each Tablet 1 Each PO DAILY Sensipar (Cinacalcet Hcl) 60 Mg Tablet 90 Mg PO DAILY Novolog (Insulin Aspart) 100 Unit/1 Ml Vial 12 Unit SQ TIDAC sliding scale Lantus Solostar (Insulin Glargine,Hum.rec.anlog) 100 Unit/1 Ml Insuln.pen 20 Unit SQ HS Vitals/I & O Vital Sign - Last 24 Hours 05/06/20 05/06/20 05/06/20 05/06/20 10:05 11:00 15:00 17:39 Temp 98.0 98.2 98.0 98.2 Pulse 85 89 Resp 16 20 20 18 B/P (MAP) 154/92 (112) 147/96 (113) Pulse Ox 96 95 O2 Delivery Room Air Room Air Room Air Room Air 05/06/20 05/06/20 05/06/20 05/06/20 18:39 19:45 20:00 22:37 Temp 98.4 98.2 98.4 98.2 Pulse 95 86 Resp 20 20 18 B/P (MAP) 150/92 (111) 172/107 (128) Pulse Ox 95 95 95 O2 Delivery Room Air Room Air Room Air Room Air O2 Flow Rate 2.0 05/07/20 05/07/20 05/07/20 05/07/20 01:29 02:18 02:28 02:29 Temp 98.4 98.4 Pulse 85 85 Resp 20 18 20 B/P (MAP) 195/116 (142) 195/116 Pulse Ox 95 98 98 O2 Delivery Room Air Nasal Cannula Room Air O2 Flow Rate 2.0 2.0 2.0 05/07/20 05/07/20 05/07/20 02:50 07:00 07:00 Temp 97.9 97.9 Pulse 100 105 109 Resp 20 B/P (MAP) 170/98 (122) 194/117 (142) 199/116 (143) Pulse Ox 99 O2 Delivery Room Air Intake and Output 05/06/20 05/06/20 05/07/20 15:00 23:00 07:00 Intake Total 320 ml 700 ml 400 ml Balance 320 ml 700 ml 400 ml Justicifation of Admission Dx: Justifications for Admission: Justification of Admission Dx: Yes Chronic Renal Failure: Electrolyte Abnormality ACOSTA OSPINA MD May 07, 2020 09:22
[2020-05-07] MEDS: IV NORMAL SALINE 1000ML BAG 1,000 ML IV SCH (10:36)
--- NOTE | 2020-05-07 10:46 | NUR ---
The patient refused to eat breakfast, blood glucose is 310 mg/dl, patient requested only 5 units of insulin. He's currently in hemodialysis, we'll continue to monitor.
--- NOTE | 2020-05-07 12:37 | PDOC ---
SUBJECTIVE ROS Seen on HD, no complaints OBJECTIVE Vital Signs Vital Signs Date Time Temp Pulse Resp B/P (MAP) Pulse Ox O2 Delivery O2 Flow Rate FiO2 05/07/20 08:00 Room Air 05/07/20 07:00 97.9 109 20 199/116 (143) 99 97.9 05/07/20 02:29 2.0 I & 0 Intake and Output 05/07/20 07:00 Intake Total 1420 ml Balance 1420 ml Intake Oral 1420 ml # Voids 1 # Bowel Movements 1 PHYSICAL EXAM Physical Exam GEN: Awake, Oriented x [], In [] distress EYES: Vision Unchanged, Conjunctiva Normal EN: No EN Drainage, Mucous Membranes [] NECK: [] JVD, [] JVP, Supple, [] Thyromegaly CVS: S1S2, [] Murmur, No Gallop, No Rub,[] Edema RESP: [] Rales, [] Rhonchi,[] Acc. Muscle Use GI: BS + ve, NO Bruit, Non Tender, Non Distended : [] CVA tenderness, [] Suprapubic Tenderness DIAGNOSIS/ASSESSMENT Assessment & Plan ESRD - TTS under Dr. Parks's care Seen on hD, tolerating well, continue as ordered. Al Jeffries Getting eval for renal Tx at [facility] Secondary hyperparathyroidism - s/p left inferior/superior, right superior and right inferior sub-total parathyroidectomy and left inferior thyroid nodule resection. Q6hour calcium monitoring, Currently on IV Ca Infusion and Ca/Vit D Po Severe Hypocalcemia- 2/2 to above, check iCa , al RN On IV Ca Infusion, Used High Ca Dialysate DM2 Chronic Diastolic CHF-Stable, HTN- continue antihypertensives GERD - will cont PPI HLD - statin GALINDO on CPAP Anemia stable COMMENT/RELEVANT DATA Meds Current Medications Medications (Trade) Dose Ordered Sig/Afua Start Time Stop Time Status Last Admin Dose Admin Albumin Human 200 ml @ 200 mls/hr 1X PRN PRN 05/07/20 08:15 05/07/20 14:14 Atorvastatin Calcium (Lipitor) 10 mg HS 05/02/20 21:00 05/06/20 21:14 10 MG Calcium Gluconate (Calcium Gluconate) 2,000 mg 1X ONCE 05/03/20 05:30 05/03/20 05:31 DC 05/03/20 05:15 2,000 MG Calcium Gluconate 3000 mg/Dextrose 1,030 ml @ 100 mls/hr [id number] 05/04/20 00:00 05/07/20 11:47 100 MLS/HR Calcium/Vitamin D (Oscal D 500mg/ 200uts) 2 tab BIDWMEALS 05/03/20 17:00 05/07/20 08:09 2 TAB Cefazolin Sodium/ Dextrose (Ancef 2gm Premix) 2 gm STK-MED ONCE 05/02/20 08:00 05/03/20 12:58 DC Cetirizine HCl (ZyrTEC) 10 mg QHS 05/04/20 21:00 05/06/20 21:14 10 MG Desflurane (Suprane) 60 ml STK-MED ONCE 05/02/20 07:52 05/02/20 07:52 DC Dexamethasone Sodium Phosphate (Decadron) 4 mg STK-MED ONCE 05/02/20 08:11 05/02/20 08:11 DC Dextrose (Dextrose 50%-Water Syringe) 12.5 gm PRN Q15MIN PRN 05/02/20 15:45 Ephedrine Sulfate (ePHEDrine PF IN SALINE SYRINGE) 50 mg STK-MED ONCE 05/02/20 08:11 05/02/20 08:11 DC Fentanyl Citrate (Fentanyl 2ml Vial) 100 mcg STK-MED ONCE 05/02/20 12:17 05/02/20 12:17 DC Fentanyl Citrate (Fentanyl 5ml Vial) 250 mcg STK-MED ONCE 05/02/20 07:32 05/02/20 07:33 DC Fluticasone Propionate (Flonase) 2 spray QHS 05/04/20 21:00 05/06/20 21:14 2 SPRAY Hydralazine HCl (Apresoline Inj) 10 mg PRN Q4HRS PRN 05/07/20 02:30 05/07/20 02:28 10 MG Hydromorphone HCl (Dilaudid) 0.2 mg PRN Q1HR PRN 05/02/20 10:45 05/02/20 23:22 0.2 MG Info (PHARMACY MONITORING -- do not chart) 1 each PRN DAILY PRN 05/07/20 08:15 Insulin Glargine (Lantus Syringe) 20 unit QHS 05/02/20 21:00 05/06/20 21:17 20 UNIT Insulin Human Lispro (HumaLOG VIAL for OP,RR ONLY) 10 unit STK-MED ONCE 05/02/20 16:30 05/05/20 10:10 DC Insulin Human Lispro (HumaLOG) 3 units 1X 05/07/20 05:15 Lidocaine HCl (Xylocaine-Mpf 1% 2ml Vial) 2 ml PRN 1X PRN 05/02/20 07:00 05/03/20 06:59 DC Lidocaine HCl (Xylocaine-Mpf 1% 5ml Vial) 5 ml STK-MED ONCE 05/02/20 07:32 05/02/20 07:32 DC Midazolam HCl (Versed) 2 mg STK-MED ONCE 05/02/20 07:32 05/02/20 07:33 DC Morphine Sulfate (Morphine Sulfate) 1 mg PRN Q10MIN PRN 05/02/20 07:00 05/03/20 06:59 DC Naloxone HCl (Narcan) 0.4 mg PRN Q2MIN PRN 05/02/20 10:45 Ondansetron HCl (Zofran) 4 mg PRN Q6HRS PRN 05/02/20 10:45 05/07/20 08:55 4 MG Oxycodone/ Acetaminophen (Percocet 5/325) 2 tab PRN Q4HRS PRN 05/02/20 10:45 05/06/20 17:39 2 TAB Pantoprazole Sodium (Protonix) 40 mg BID 05/03/20 22:30 05/07/20 08:09 40 MG Phenol (Chloraseptic) 1 spray PRN Q2HR PRN 05/02/20 17:00 Phenylephrine HCl (Ham-Synephrine Inj) 10 mg STK-MED ONCE 05/02/20 08:12 05/02/20 08:13 DC Phenylephrine HCl (PHENYLEPHRINE in 0.9% NACL PF) 1 mg STK-MED ONCE 05/02/20 08:11 05/02/20 08:11 DC Polyethylene Glycol (miraLAX PACKET) 17 gm PRN DAILY PRN 05/02/20 15:45 Prochlorperazine Edisylate (Compazine) 5 mg PACU PRN PRN 05/02/20 07:00 05/03/20 06:59 DC Propofol (Diprivan) 200 mg STK-MED ONCE 05/02/20 07:32 05/02/20 07:32 DC Ringer's Solution 1,000 ml @ 30 mls/hr Q24H 05/02/20 07:00 05/02/20 18:59 DC Rocuronium [place] (Zemuron) 50 mg STK-MED ONCE 05/02/20 07:56 05/02/20 07:57 DC Sevoflurane (Ultane) 60 ml STK-MED ONCE 05/02/20 07:52 05/02/20 07:52 DC Sodium Chloride 1,000 ml @ 400 mls/hr Q2H30M PRN 05/07/20 08:02 05/07/20 20:01 Sodium Chloride (Normal Saline Flush) 3 ml QSHIFT PRN 05/02/20 10:45 Succinylcholine Chloride (Anectine) 200 mg STK-MED ONCE 05/02/20 07:33 05/02/20 07:33 DC Throat Lozenges (Cepacol Sore Throat Lozenge) 1 disha PRN Q2HRS PRN 05/02/20 17:00 05/05/20 20:46 1 DISHA Vitamin B Complex/ Vitamin C (Johanna-Celia) 1 tab DAILY 05/03/20 09:00 05/07/20 08:09 1 TAB Lab Laboratory Tests Test 05/06/20 15:30 05/06/20 16:53 05/06/20 21:13 05/07/20 02:56 Calcium Level 7.4 mg/dL (8.5-10.1) Glucose (Fingerstick) 91 mg/dL (70-99) 85 mg/dL (70-99) 127 mg/dL (70-99) Test 05/07/20 03:40 05/07/20 04:35 05/07/20 07:40 05/07/20 12:00 Calcium Level 7.5 mg/dL (8.5-10.1) Glucose (Fingerstick) 289 mg/dL (70-99) 310 mg/dL (70-99) 159 mg/dL (70-99) Results All relevant outside records, renal labs, imaging studies, telemetry/EKG's were reviewed. Justicifation of Admission Dx: Justifications for Admission: Justification of Admission Dx: Yes Chronic Renal Failure: Electrolyte Abnormality AYANNA PEREZ MD May 07, 2020 12:37
--- NOTE | 2020-05-07 13:53 | NUR ---
Patient underwent hemodialysis, came back to the unit at 1314, BP post HD was 180/92, repeat BP upon arrival at the unit was 163/91. We'll continue to monitor.
[2020-05-07] MEDS: CETIRIZINE HCL 10 MG TABLET. PO SCH (14:57)
[2020-05-07] MEDS ORDERED: hydrALAZINE 20 MG/ML VIAL. IVP PRN (15:30)
--- NOTE | 2020-05-07 15:42 | NUR ---
Patient's BP was 180/90,requests that he get's half the dose of BP med. Patient states he's been off antihypertensives for over a year and his BP goes down quick. Notified Dr. Cristobal, informed of the dose change.
[2020-05-07] MEDS: FLUTICASONE 50MCG/NASAL SPRAY 16GM BOTTLE. NS SCH (21:14)
[2020-05-07] MEDS: ATORVASTATIN CALCIUM 10 MG TABLET. PO SCH (21:14)
[2020-05-07] MEDS: INSULIN GLARGINE SYRINGE. SQ SCH (21:24)
[2020-05-08 03:10] VITALS: BP 139/81
[2020-05-08 06:51] LABS: ALBUMIN 2.6 g/dL (3.4-5.0); ALBUMIN/GLOBULIN RATIO 0.6 (1.0-1.7); CALCIUM 7.7 mg/dL (8.5-10.1); CREATININE 8.7 mg/dL (0.7-1.3); GFR 8.3; POTASSIUM 4.6 mmol/L (3.5-5.1); TOTAL BILIRUBIN 0.5 mg/dL (0.2-1.0); TOTAL PROTEIN 6.7 g/dL (6.4-8.2)
[2020-05-08 07:00] VITALS: BP 167/103
[2020-05-08] MEDS: INSULIN LISPRO 300 UNITS/3 ML VIAL. SQ SCH ×7 (07:30→21:00)
[2020-05-08] MEDS: FOLIC/VIT B COMP W-C (RENAL) TABLET. PO SCH (08:12)
[2020-05-08] MEDS: CALCIUM CARB/VIT D3 500/200 TABLET. PO SCH ×2 (08:12→17:48)
[2020-05-08] MEDS: DEXTROSE 5% IV SCH ×2 (08:12→18:40)
[2020-05-08] MEDS: CALCIUM GLUCONATE IV SCH ×2 (08:12→18:40)
[2020-05-08] MEDS: PANTOPRAZOLE 40 MG TABLET.DR. PO SCH ×2 (08:12→19:47)
[2020-05-08] MEDS: IV NORMAL SALINE 1000ML BAG 1,000 ML IV SCH (08:16)
[2020-05-08] MEDS: hydrALAZINE 20 MG/ML VIAL. IVP PRN ×2 (08:47→19:54)
[2020-05-08] MEDS: oxyCODONE/APAP 5/325 1 TAB TABLET PO PRN ×2 (08:55→20:59)
--- NOTE | 2020-05-08 10:39 | PDOC ---
SURGICAL PROGRESS NOTE Subjective Patient doing well no complaints Vital Signs Vital Signs Date Time Temp Pulse Resp B/P (MAP) Pulse Ox O2 Delivery O2 Flow Rate FiO2 05/08/20 08:55 99 Room Air 05/08/20 08:47 86 167/103 05/08/20 07:00 98.5 22 3.0 98.5 I&O Intake and Output 05/08/20 07:00 Intake Total 900 ml Balance 900 ml Intake Oral 900 ml # Voids 1 PATIENT HAS A MARSHALL: No General: Alert, Oriented X3, Cooperative, No acute distress HEENT: Other (Wounds clean dry and intact) Labs Laboratory Tests Test 05/06/20 12:22 05/06/20 15:30 05/06/20 16:53 05/06/20 21:13 Glucose (Fingerstick) 159 mg/dL (70-99) 91 mg/dL (70-99) 85 mg/dL (70-99) Calcium Level 7.4 mg/dL (8.5-10.1) Test 05/07/20 02:56 05/07/20 03:40 05/07/20 04:35 05/07/20 07:40 Glucose (Fingerstick) 127 mg/dL (70-99) 289 mg/dL (70-99) 310 mg/dL (70-99) Calcium Level 7.5 mg/dL (8.5-10.1) Test 05/07/20 12:00 05/07/20 13:40 05/07/20 15:52 05/07/20 16:10 Glucose (Fingerstick) 159 mg/dL (70-99) 156 mg/dL (70-99) Calcium Level 8.8 mg/dL (8.5-10.1) Ionized Calcium 1.08 mmol/L (1.13-1.32) Test 05/07/20 16:58 05/07/20 21:05 05/08/20 05:47 05/08/20 07:49 Glucose (Fingerstick) 139 mg/dL (70-99) 140 mg/dL (70-99) 105 mg/dL (70-99) Sodium Level 130 mmol/L (136-145) Potassium Level 4.6 mmol/L (3.5-5.1) Chloride Level 93 mmol/L (98-107) Carbon Dioxide Level 33 mmol/L (21-32) Anion Gap 4 (6-14) Blood Urea Nitrogen 31 mg/dL (8-26) Creatinine 8.7 mg/dL (0.7-1.3) Estimated GFR (Cockcroft-Gault) 8.3 BUN/Creatinine Ratio 4 (6-20) Glucose Level 90 mg/dL (70-99) Calcium Level 7.7 mg/dL (8.5-10.1) Ionized Calcium 1.00 mmol/L (1.13-1.32) Total Bilirubin 0.5 mg/dL (0.2-1.0) Aspartate Amino Transf (AST/SGOT) 14 U/L (15-37) Alanine Aminotransferase (ALT/SGPT) 9 U/L (16-63) Alkaline Phosphatase 356 U/L (46-116) Total Protein 6.7 g/dL (6.4-8.2) Albumin 2.6 g/dL (3.4-5.0) Albumin/Globulin Ratio 0.6 (1.0-1.7) Laboratory Tests Test 05/07/20 12:00 05/07/20 13:40 05/07/20 15:52 05/07/20 16:10 Glucose (Fingerstick) 159 mg/dL (70-99) 156 mg/dL (70-99) Calcium Level 8.8 mg/dL (8.5-10.1) Ionized Calcium 1.08 mmol/L (1.13-1.32) Test 05/07/20 16:58 05/07/20 21:05 05/08/20 05:47 05/08/20 07:49 Glucose (Fingerstick) 139 mg/dL (70-99) 140 mg/dL (70-99) 105 mg/dL (70-99) Sodium Level 130 mmol/L (136-145) Potassium Level 4.6 mmol/L (3.5-5.1) Chloride Level 93 mmol/L (98-107) Carbon Dioxide Level 33 mmol/L (21-32) Anion Gap 4 (6-14) Blood Urea Nitrogen 31 mg/dL (8-26) Creatinine 8.7 mg/dL (0.7-1.3) Estimated GFR (Cockcroft-Gault) 8.3 BUN/Creatinine Ratio 4 (-20) Glucose Level 90 mg/dL (70-99) Calcium Level 7.7 mg/dL (8.5-10.1) Ionized Calcium 1.00 mmol/L (1.13-1.32) Total Bilirubin 0.5 mg/dL (0.2-1.0) Aspartate Amino Transf (AST/SGOT) 14 U/L (15-37) Alanine Aminotransferase (ALT/SGPT) 9 U/L (16-63) Alkaline Phosphatase 356 U/L (46-116) Total Protein 6.7 g/dL (6.4-8.2) Albumin 2.6 g/dL (3.4-5.0) Albumin/Globulin Ratio 0.6 (1.0-1.7) Assessment/Plan Status post parathyroidectomy Stable from surgical standpoint Justicifation of Admission Dx: Justifications for Admission: Justification of Admission Dx: Yes Chronic Renal Failure: Electrolyte Abnormality ANA MORALES MD May 08, 2020 10:39
[2020-05-08 11:00] VITALS: BP 174/92
[2020-05-08] MEDS: LABETALOL 20 MG/4 ML DISP.SYRIN. IVP PRN (11:41)
--- NOTE | 2020-05-08 13:23 | PDOC ---
PROGRESS NOTES Chief Complaint Chief Complaint Assessment/Plan Assessment/Plan A/P: Secondary hyperparathyroidism - s/p left inferior/superior, right superior and right inferior sub-total parathyroidectomy and left inferior thyroid nodule resection. Q6hour calcium monitoring. ESRD - was on PD ,switched to HD - [facility]. Dr. Parks is his primary operations boardman. Consulted for HD management. Getting eval for renal Tx at [facility] DM2 with Blood Glucose very high - will give 25u TID and glargine per home regimen Chronic Diastolic CHF-Stable, On R HTN- continue antihypertensives GERD - will cont PPI HLD - cont statin GALINDO on CPAP - cont inpatient Anemia of chronic renal insufficiency - stable FEN - Renal ADA diet PPX - heparin with dialysis FULL CODE Dispo - inpatient for calcium monitoring, needs telemetry. electrolyte management as per nephrology technology consultant will continue with calcium infusion given lab work continue to monitor as per nephrology symptomatic relief of symptoms History of Present Illness History of Present Illness History of Present Illness Reason for Visit: Mr Villa is a 40 yo M w/ PMHx HTN, HLD, GALINDO on CPAP, DM2 on insulin, ESRD on HD (previously on PD), anemia of chronic renal insufficiency, and recent diagnosis of secondary hyperparathyroidism who is admitted today for post-operative management and calcium monitoring after symptomatic hypeparathyroidism with a left inferior/superior, right superior and right inferior sub-total parathyroidectomy and left inferior thyroid nodule resection. Glucose 408 and has as sore throat post-operatively 05/04/2020 No acute events reported overnight, case discussed with nursing staff patient in no acute distress no complaints during my visit 05/05/2020 Patient seen in dialysis, no acute distress. Electrolyte disturbance noted. We will continue to replace with the help of our nephrology technology consultant 05/06/2020 No acute events reported overnight, case discussed with nursing staff patient in no acute distress no complaints during my visit Patient feeling nauseous, could not sleep due to symptoms, seems acutely ill, hemodynamically stable, reassurance provided, will follow rec from technology consultant. 05/08/2020 Patient still having bouts of uncontrolled hypertension definitely feels better compared to yesterday and no further nausea has been reported. Plan of care explained in detail and reassurance provided no new complaints voiced during my encounter Vitals Vitals Vital Signs Date Time Temp Pulse Resp B/P (MAP) Pulse Ox O2 Delivery O2 Flow Rate FiO2 05/08/20 11:41 99 174/92 05/08/20 11:00 98.3 20 96 Room Air 98.3 05/08/20 07:00 3.0 Physical Exam General: Alert, Oriented X3, Cooperative, No acute distress Heart: Regular rate Lungs: Clear Abdomen: Normal bowel sounds, No tenderness Extremities: No cyanosis Skin: No breakdown Labs LABS Laboratory Tests Test 05/07/20 13:40 05/07/20 15:52 05/07/20 16:10 05/07/20 16:58 Glucose (Fingerstick) 156 mg/dL (70-99) 139 mg/dL (70-99) Calcium Level 8.8 mg/dL (8.5-10.1) Ionized Calcium 1.08 mmol/L (1.13-1.32) Test 05/07/20 21:05 05/08/20 05:47 05/08/20 07:49 05/08/20 11:36 Glucose (Fingerstick) 140 mg/dL (70-99) 105 mg/dL (70-99) 117 mg/dL (70-99) Sodium Level 130 mmol/L (136-145) Potassium Level 4.6 mmol/L (3.5-5.1) Chloride Level 93 mmol/L (98-107) Carbon Dioxide Level 33 mmol/L (21-32) Anion Gap 4 (6-14) Blood Urea Nitrogen 31 mg/dL (8-26) Creatinine 8.7 mg/dL (0.7-1.3) Estimated GFR (Cockcroft-Gault) 8.3 BUN/Creatinine Ratio 4 (6-20) Glucose Level 90 mg/dL (70-99) Calcium Level 7.7 mg/dL (8.5-10.1) Ionized Calcium 1.00 mmol/L (1.13-1.32) Total Bilirubin 0.5 mg/dL (0.2-1.0) Aspartate Amino Transf (AST/SGOT) 14 U/L (15-37) Alanine Aminotransferase (ALT/SGPT) 9 U/L (16-63) Alkaline Phosphatase 356 U/L (46-116) Total Protein 6.7 g/dL (6.4-8.2) Albumin 2.6 g/dL (3.4-5.0) Albumin/Globulin Ratio 0.6 (1.0-1.7) Comment Review of Relevant I have reviewed the following items javy (where applicable) has been applied. Labs Laboratory Tests Test 05/06/20 15:30 05/06/20 16:53 05/06/20 21:13 05/07/20 02:56 Calcium Level 7.4 mg/dL (8.5-10.1) Glucose (Fingerstick) 91 mg/dL (70-99) 85 mg/dL (70-99) 127 mg/dL (70-99) Test 05/07/20 03:40 05/07/20 04:35 05/07/20 07:40 05/07/20 12:00 Calcium Level 7.5 mg/dL (8.5-10.1) Glucose (Fingerstick) 289 mg/dL (70-99) 310 mg/dL (70-99) 159 mg/dL (70-99) Test 05/07/20 13:40 05/07/20 15:52 05/07/20 16:10 05/07/20 16:58 Glucose (Fingerstick) 156 mg/dL (70-99) 139 mg/dL (70-99) Calcium Level 8.8 mg/dL (8.5-10.1) Ionized Calcium 1.08 mmol/L (1.13-1.32) Test 05/07/20 21:05 05/08/20 05:47 05/08/20 07:49 05/08/20 11:36 Glucose (Fingerstick) 140 mg/dL (70-99) 105 mg/dL (70-99) 117 mg/dL (70-99) Sodium Level 130 mmol/L (136-145) Potassium Level 4.6 mmol/L (3.5-5.1) Chloride Level 93 mmol/L (98-107) Carbon Dioxide Level 33 mmol/L (21-32) Anion Gap 4 (6-14) Blood Urea Nitrogen 31 mg/dL (8-26) Creatinine 8.7 mg/dL (0.7-1.3) Estimated GFR (Cockcroft-Gault) 8.3 BUN/Creatinine Ratio 4 (6-20) Glucose Level 90 mg/dL (70-99) Calcium Level 7.7 mg/dL (8.5-10.1) Ionized Calcium 1.00 mmol/L (1.13-1.32) Total Bilirubin 0.5 mg/dL (0.2-1.0) Aspartate Amino Transf (AST/SGOT) 14 U/L (15-37) Alanine Aminotransferase (ALT/SGPT) 9 U/L (16-63) Alkaline Phosphatase 356 U/L (46-116) Total Protein 6.7 g/dL (6.4-8.2) Albumin 2.6 g/dL (3.4-5.0) Albumin/Globulin Ratio 0.6 (1.0-1.7) Laboratory Tests Test 05/07/20 13:40 05/07/20 15:52 05/07/20 16:10 05/07/20 16:58 Glucose (Fingerstick) 156 mg/dL (70-99) 139 mg/dL (70-99) Calcium Level 8.8 mg/dL (8.5-10.1) Ionized Calcium 1.08 mmol/L (1.13-1.32) Test 05/07/20 21:05 05/08/20 05:47 05/08/20 07:49 05/08/20 11:36 Glucose (Fingerstick) 140 mg/dL (70-99) 105 mg/dL (70-99) 117 mg/dL (70-99) Sodium Level 130 mmol/L (136-145) Potassium Level 4.6 mmol/L (3.5-5.1) Chloride Level 93 mmol/L (98-107) Carbon Dioxide Level 33 mmol/L (21-32) Anion Gap 4 (6-14) Blood Urea Nitrogen 31 mg/dL (8-26) Creatinine 8.7 mg/dL (0.7-1.3) Estimated GFR (Cockcroft-Gault) 8.3 BUN/Creatinine Ratio 4 (6-20) Glucose Level 90 mg/dL (70-99) Calcium Level 7.7 mg/dL (8.5-10.1) Ionized Calcium 1.00 mmol/L (1.13-1.32) Total Bilirubin 0.5 mg/dL (0.2-1.0) Aspartate Amino Transf (AST/SGOT) 14 U/L (15-37) Alanine Aminotransferase (ALT/SGPT) 9 U/L (16-63) Alkaline Phosphatase 356 U/L (46-116) Total Protein 6.7 g/dL (6.4-8.2) Albumin 2.6 g/dL (3.4-5.0) Albumin/Globulin Ratio 0.6 (1.0-1.7) Medications Current Medications Ondansetron HCl (Zofran) 4 mg PRN Q6HRS PRN IV NAUSEA/VOMITING; Start 05/02/20 at 07:00; Stop 05/03/20 at 06:59; Status DC Fentanyl Citrate (Fentanyl 2ml Vial) 25 mcg PRN Q5MIN PRN IV MILD PAIN 1-3; Start 05/02/20 at 07:00; Stop 05/03/20 at 06:59; Status DC Fentanyl Citrate (Fentanyl 2ml Vial) 50 mcg PRN Q5MIN PRN IV MODERATE TO SEVERE PAIN Last administered on 05/02/20at 13:27; Start 05/02/20 at 07:00; Stop 05/03/20 at 06:59; Status DC Morphine Sulfate (Morphine Sulfate) 1 mg PRN Q10MIN PRN IV SEVERE PAIN 7-10; Start 05/02/20 at 07:00; Stop 05/03/20 at 06:59; Status DC Ringer's Solution 1,000 ml @ 30 mls/hr Q24H IV ; Start 05/02/20 at 07:00; Stop 05/02/20 at 18:59; Status DC Lidocaine HCl (Xylocaine-Mpf 1% 2ml Vial) 2 ml PRN 1X PRN ID PRIOR TO IV START; Start 05/02/20 at 07:00; Stop 05/03/20 at 06:59; Status DC Hydromorphone HCl (Dilaudid) 0.5 mg PRN Q10MIN PRN IV SEV PAIN, Second choice; Start 05/02/20 at 07:00; Stop 05/03/20 at 06:59; Status DC Prochlorperazine Edisylate (Compazine) 5 mg PACU PRN PRN IV NAUSEA, MRX1; S tart 05/02/20 at 07:00; Stop 05/03/20 at 06:59; Status DC Cefazolin Sodium/ Dextrose 50 ml @ 100 mls/hr 1X PREOP PRN IV PRIOR TO PROCEDURE Last administered on 05/02/20at 07:40; Start 05/02/20 at 08:00; Stop 05/02/20 at 18:00; Status DC Insulin Human Lispro (HumaLOG VIAL for OP,RR ONLY) 0-10 units PRN Q1HR PRN SQ PER PROTOCOL Last administered on 05/02/20at 16:21; Start 05/02/20 at 07:15; Stop 05/03/20 at 07:14; Status DC Sodium Chloride 1,000 ml @ 0 mls/hr Q0M IV Last administered on 05/02/20at 07:24; Start 05/02/20 at 07:15; Stop 05/05/20 at 15:16; Status DC Propofol (Diprivan) 200 mg STK-MED ONCE IV ; Start 05/02/20 at 07:32; Stop 05/02/20 at 07:32; Status DC Lidocaine HCl (Xylocaine-Mpf 1% 5ml Vial) 5 ml STK-MED ONCE .ROUTE ; Start 05/02/20 at 07:32; Stop 05/02/20 at 07:32; Status DC Midazolam HCl (Versed) 2 mg STK-MED ONCE .ROUTE ; Start 05/02/20 at 07:32; Stop 05/02/20 at 07:33; Status DC Fentanyl Citrate (Fentanyl 5ml Vial) 250 mcg STK-MED ONCE .ROUTE ; Start 05/02/20 at 07:32; Stop 05/02/20 at 07:33; Status DC Succinylcholine Chloride (Anectine) 200 mg STK-MED ONCE .ROUTE ; Start 05/02/20 at 07:33; Stop 05/02/20 at 07:33; Status DC Ondansetron HCl (Zofran) 4 mg STK-MED ONCE .ROUTE ; Start 05/02/20 at 07:36; Stop 05/02/20 at 07:36; Status DC Dexamethasone Sodium Phosphate (Decadron) 4 mg STK-MED ONCE .ROUTE ; Start 05/02/20 at 07:36; Stop 05/02/20 at 07:36; Status DC Desflurane (Suprane) 60 ml STK-MED ONCE IH ; Start 05/02/20 at 07:52; Stop 05/02/20 at 07:52; Status DC Sevoflurane (Ultane) 60 ml STK-MED ONCE IH ; Start 05/02/20 at 07:52; Stop 05/02/20 at 07:52; Status DC Rocuronium Franklin (Zemuron) 50 mg STK-MED ONCE .ROUTE ; Start 05/02/20 at 07:56; Stop 05/02/20 at 07:57; Status DC Dexamethasone Sodium Phosphate (Decadron) 4 mg STK-MED ONCE .ROUTE ; Start 05/02/20 at 08:11; Stop 05/02/20 at 08:11; Status DC Phenylephrine HCl (PHENYLEPHRINE in 0.9% NACL PF) 1 mg STK-MED ONCE IV ; Start 05/02/20 at 08:11; Stop 05/02/20 at 08:11; Status DC Ephedrine Sulfate (ePHEDrine PF IN SALINE SYRINGE) 50 mg STK-MED ONCE IV ; Start 05/02/20 at 08:11; Stop 05/02/20 at 08:11; Status DC Phenylephrine HCl (Ham-Synephrine Inj) 10 mg STK-MED ONCE .ROUTE ; Start 05/02/20 at 08:12; Stop 05/02/20 at 08:13; Status DC Sodium Chloride (Normal Saline Flush) 3 ml QSHIFT PRN IV AFTER MEDS AND BLOOD DRAWS; Start 05/02/20 at 10:45 Sodium Chloride 1,000 ml @ 60 mls/hr [id number] IV ; Start 05/02/20 at 10:36; Stop 05/04/20 at 11:17; Status DC Oxycodone/ Acetaminophen (Percocet 5/325) 1 tab PRN Q4HRS PRN PO MILD PAIN, 1ST CHOICE Last administered on 05/08/20at 08:55; Start 05/02/20 at 10:45 Oxycodone/ Acetaminophen (Percocet 5/325) 2 tab PRN Q4HRS PRN PO MODERATE PAIN, SEVERE PAIN Last administered on 05/06/20at 17:39; Start 05/02/20 at 10:45 Naloxone HCl (Narcan) 0.4 mg PRN Q2MIN PRN IV SEE INSTRUCTIONS; Start 05/02/20 at 10:45 Sodium Chloride 1,000 ml @ 25 mls/hr Q24H IV ; Start 05/02/20 at 10:36 Hydromorphone HCl (Dilaudid) 0.2 mg PRN Q1HR PRN IV PAIN Last administered on 05/02/20at 23:22; Start 05/02/20 at 10:45 Ondansetron HCl (Zofran) 4 mg PRN Q6HRS PRN IVP NAUESA, 1ST CHOICE Last administered on 05/07/20at 08:55; Start 05/02/20 at 10:45 Fentanyl Citrate (Fentanyl 2ml Vial) 100 mcg STK-MED ONCE .ROUTE ; Start 05/02/20 at 11:46; Stop 05/02/20 at 11:46; Status DC Fentanyl Citrate (Fentanyl 2ml Vial) 100 mcg STK-MED ONCE .ROUTE ; Start 05/02/20 at 12:17; Stop 05/02/20 at 12:17; Status DC Pantoprazole Sodium (Protonix) 40 mg 1X ONCE PO Last administered on 05/02/20at 15:18; Start 05/02/20 at 15:15; Stop 05/02/20 at 15:16; Status DC Atorvastatin Calcium (Lipitor) 10 mg HS PO Last administered on 05/07/20at 21:14; Start 05/02/20 at 21:00 Polyethylene Glycol (miraLAX PACKET) 17 gm PRN DAILY PRN PO CONSTIPATION; Start 05/02/20 at 15:45 Insulin Human Lispro (HumaLOG) 12 units TIDWMEALS SQ Last administered on 05/08/20at 12:27; Start 05/02/20 at 17:30 Insulin Glargine (Lantus Syringe) 20 unit QHS SQ Last administered on 05/07/20at 21:24; Start 05/02/20 at 21:00 Pantoprazole Sodium (Protonix) 40 mg DAILYAC PO Last administered on 05/03/20at 13:17; Start 05/03/20 at 07:30; Stop 05/03/20 at 22:01; Status DC Vitamin B Complex/ Vitamin C (Johanna-Celia) 1 tab DAILY PO Last administered on 05/08/20at 08:12; Start 05/03/20 at 09:00 Insulin Human Lispro (HumaLOG) 0-7 UNITS TIDACHC SQ Last administered on 05/07/20at 08:15; Start 05/02/20 at 17:30 Dextrose (Dextrose 50%-Water Syringe) 12.5 gm PRN Q15MIN PRN IV SEE COMMENTS; Start 05/02/20 at 15:45 Phenol (Chloraseptic) 1 spray PRN Q2HR PRN PO SORE THROAT, 2ND CHOICE; Start 05/02/20 at 17:00 Throat Lozenges (Cepacol Sore Throat Lozenge) 1 afshan PRN Q2HRS PRN PO SORE THROAT, 1ST CHOICE Last administered on 05/05/20at 20:46; Start 05/02/20 at 17:00 Calcium Gluconate (Calcium Gluconate) 1,000 mg 1X ONCE IVP Last administered on 05/02/20at 18:55; Start 05/02/20 at 18:30; Stop 05/02/20 at 18:31; Status DC Calcium Gluconate 3000 mg/Dextrose 1,030 ml @ 60 mls/hr [id number] IV Last administered on 05/02/20at 19:24; Start 05/02/20 at 19:00; Stop 05/03/20 at 11:00; Status DC Calcium Gluconate 3000 mg/Dextrose 1,030 ml @ 60 mls/hr [id number] IV ; Start 05/02/20 at 19:00; Status Cancel Calcium Gluconate (Calcium Gluconate) 2,000 mg 1X ONCE IVP Last administered on 05/03/20at 05:15; Start 05/03/20 at 05:30; Stop 05/03/20 at 05:31; Status DC Sodium Chloride 1,000 ml @ 1,000 mls/hr Q1H PRN IV hypotension; Start 05/03/20 at 07:52; Stop 05/03/20 at 13:51; Status DC Sodium Chloride 1,000 ml @ 400 mls/hr Q2H30M PRN IV PATENCY; Start 05/03/20 at 07:52; Stop 05/03/20 at 19:51; Status DC Info (PHARMACY MONITORING -- do not chart) 1 each PRN DAILY PRN MC SEE COMMENTS; Start 05/03/20 at 08:00; Stop 05/03/20 at 17:02; Status DC Info (PHARMACY MONITORING -- do not chart) 1 each PRN DAILY PRN MC SEE COMMENTS; Start 05/03/20 at 08:00; Status Cancel Calcium/Vitamin D (Oscal D 500mg/ 200uts) 2 tab BIDWMEALS PO Last administered on 05/08/20at 08:12; Start 05/03/20 at 17:00 Cefazolin Sodium/ Dextrose (Ancef 2gm Premix) 2 gm STK-MED ONCE IV ; Start 05/02/20 at 08:00; Stop 05/03/20 at 12:58; Status DC Pantoprazole Sodium (Protonix) 40 mg BID PO Last administered on 05/08/20at 08:12; Start 05/03/20 at 22:30 Calcium Gluconate 3000 mg/Dextrose 1,030 ml @ 100 mls/hr [id number] IV Last administered on 05/08/20at 08:12; Start 05/04/20 at 00:00 Fluticasone Propionate (Flonase) 2 spray QHS NS Last administered on 05/07/20at 21:14; Start 05/04/20 at 21:00 Cetirizine HCl (ZyrTEC) 10 mg PRN DAILY PRN PO ALLERGIES; Start 05/04/20 at 18:15; Stop 05/04/20 at 19:32; Status DC Cetirizine HCl (ZyrTEC) 10 mg QHS PO Last administered on 05/07/20at 14:57; Start 05/04/20 at 21:00 Sodium Chloride 1,000 ml @ 1,000 mls/hr Q1H PRN IV hypotension; Start 05/05/20 at 07:33; Stop 05/05/20 at 13:32; Status DC Sodium Chloride 1,000 ml @ 400 mls/hr Q2H30M PRN IV PATENCY; Start 05/05/20 at 07:33; Stop 05/05/20 at 19:32; Status DC Info (PHARMACY MONITORING -- do not chart) 1 each PRN DAILY PRN MC SEE COMMENTS; Start 05/05/20 at 07:45 Insulin Human Lispro (HumaLOG VIAL for OP,RR ONLY) 2 unit STK-MED ONCE SQ ; Start 05/02/20 at 16:30; Stop 05/05/20 at 10:10; Status DC Insulin Human Lispro (HumaLOG VIAL for OP,RR ONLY) 10 unit STK-MED ONCE SQ ; Start 05/02/20 at 16:30; Stop 05/05/20 at 10:10; Status DC Insulin Human Lispro (HumaLOG VIAL for OP,RR ONLY) 10 unit STK-MED ONCE SQ ; Start 05/02/20 at 16:30; Stop 05/05/20 at 10:10; Status DC Hydralazine HCl (Apresoline Inj) 10 mg PRN Q4HRS PRN IVP ELEVATED BP, SEE COMMENTS Last administered on 05/08/20at 08:47; Start 05/07/20 at 02:30 Insulin Human Lispro (HumaLOG) 3 units 1X SQ ; Start 05/07/20 at 05:15 Sodium Chloride 1,000 ml @ 1,000 mls/hr Q1H PRN IV hypotension; Start 05/07/20 at 08:02; Stop 05/07/20 at 14:01; Status DC Albumin Human 200 ml @ 200 mls/hr 1X PRN PRN IV Hypotension; Start 05/07/20 at 08:15; Stop 05/07/20 at 14:14; Status DC Sodium Chloride 1,000 ml @ 400 mls/hr Q2H30M PRN IV PATENCY; Start 05/07/20 at 08:02; Stop 05/07/20 at 20:01; Status DC Info (PHARMACY MONITORING -- do not chart) 1 each PRN DAILY PRN MC SEE COMMENTS; Start 05/07/20 at 08:15; Status UNV Info (PHARMACY MONITORING -- do not chart) 1 each PRN DAILY PRN MC SEE COMMENTS; Start 05/07/20 at 08:15 Hydralazine HCl (Apresoline Inj) 5 mg PRN Q4HRS PRN IVP ELEVATED BP, SEE COMMENTS Last administered on 05/07/20at 21:19; Start 05/07/20 at 15:30 Labetalol HCl (Normodyne Iv Push) 10 mg PRN Q4HRS PRN IVP HYPERTENSION Last administered on 05/08/20at 11:41; Start 05/08/20 at 11:15 Active Scripts Active Reported Miralax (Polyethylene Glycol 3350) 17 Gm Powd.pack 1 Packet PO PRN PRN 2 Days dissolve in water Atorvastatin Calcium 10 Mg Tablet 10 Mg PO HS [auryxia] 630 Mg PO TIDAC Protonix (Pantoprazole Sodium) 20 Mg Tablet.dr 2 Tab PO DAILY Furosemide 80 Mg Tablet 1 Tab PO TID Vitamin D (Cholecalciferol (Vitamin D3)) 5,000 Unit Tablet 5,000 Unit PO DAILY Johanna-Celia Rx Tablet (Vit B Cmplx 3/Fa/Vit C/Biotin) 1 Each Tablet 1 Each PO DAILY Sensipar (Cinacalcet Hcl) 60 Mg Tablet 90 Mg PO DAILY Novolog (Insulin Aspart) 100 Unit/1 Ml Vial 12 Unit SQ TIDAC sliding scale Lantus Solostar (Insulin Glargine,Hum.rec.anlog) 100 Unit/1 Ml Insuln.pen 20 Unit SQ HS Vitals/I & O Vital Sign - Last 24 Hours 05/07/20 05/07/20 05/07/20 05/07/20 13:51 14:58 15:00 15:31 Temp 98.3 98.3 Pulse 105 116 105 Resp 18 20 B/P (MAP) 163/91 (115) 182/103 (129) 180/90 Pulse Ox 99 96 O2 Delivery Room Air Room Air O2 Flow Rate 2.0 05/07/20 05/07/20 05/07/20 05/07/20 15:58 19:35 20:00 21:19 Temp 98.8 98.8 Pulse 95 101 Resp 19 20 B/P (MAP) 174/110 (131) 171/105 Pulse Ox 96 98 O2 Delivery Room Air Room Air Room Air O2 Flow Rate 2.0 05/07/20 05/07/20 05/08/20 05/08/20 22:58 23:05 03:10 07:00 Temp 99.0 98.5 98.5 99.0 98.5 98.5 Pulse 102 102 86 Resp 20 18 22 B/P (MAP) 163/102 (122) 139/81 (100) 167/103 (124) Pulse Ox 98 96 97 99 O2 Delivery Room Air Room Air Room Air Nasal Cannula O2 Flow Rate 3.0 05/08/20 05/08/20 05/08/20 05/08/20 07:50 08:47 08:55 09:55 Pulse 86 B/P (MAP) 167/103 Pulse Ox 99 96 O2 Delivery Room Air Room Air Room Air 05/08/20 05/08/20 11:00 11:41 Temp 98.3 98.3 Pulse 99 99 Resp 20 B/P (MAP) 174/92 (119) 174/92 Pulse Ox 96 O2 Delivery Room Air Intake and Output 05/07/20 05/07/20 05/08/20 15:00 23:00 07:00 Intake Total 0 ml 300 ml 600 ml Balance 0 ml 300 ml 600 ml Justicifation of Admission Dx: Justifications for Admission: Justification of Admission Dx: Yes Chronic Renal Failure: Electrolyte Abnormality ACOSTA OSPINA MD May 08, 2020 13:23
--- NOTE | 2020-05-08 13:30 | PDOC ---
SUBJECTIVE ROS no complaints OBJECTIVE Vital Signs Vital Signs Date Time Temp Pulse Resp B/P (MAP) Pulse Ox O2 Delivery O2 Flow Rate FiO2 05/08/20 11:41 99 174/92 05/08/20 11:00 98.3 20 96 Room Air 98.3 05/08/20 07:00 3.0 I & 0 Intake and Output 05/08/20 07:00 Intake Total 900 ml Balance 900 ml Intake Oral 900 ml # Voids 1 PHYSICAL EXAM Physical Exam General: Alert, Oriented X3, Cooperative, No acute distress Heart: Regular rate Lungs: Clear Abdomen: Normal bowel sounds, No tenderness Extremities: No cyanosis Skin: No breakdown DIAGNOSIS/ASSESSMENT Assessment & Plan ESRD - TTS under Dr. Parks's care No indication for HD today Getting eval for renal Tx at [facility] Secondary hyperparathyroidism - s/p left inferior/superior, right superior and right inferior sub-total parathyroidectomy and left inferior thyroid nodule resection. Q6hour calcium monitoring, Currently on IV Ca Infusion and Ca/Vit D Po Severe Hypocalcemia- 2/2 to above, iCa low On IV Ca Infusion, Using High Ca Dialysate DM2 Chronic Diastolic CHF-Stable, HTN- continue antihypertensives GERD - will cont PPI HLD - statin GALINDO on CPAP Anemia stable COMMENT/RELEVANT DATA Meds Current Medications Medications (Trade) Dose Ordered Sig/Afua Start Time Stop Time Status Last Admin Dose Admin Albumin Human 200 ml @ 200 mls/hr 1X PRN PRN 05/07/20 08:15 05/07/20 14:14 DC Atorvastatin Calcium (Lipitor) 10 mg HS 05/02/20 21:00 05/07/20 21:14 10 MG Calcium Gluconate (Calcium Gluconate) 2,000 mg 1X ONCE 05/03/20 05:30 05/03/20 05:31 DC 05/03/20 05:15 2,000 MG Calcium Gluconate 3000 mg/Dextrose 1,030 ml @ 100 mls/hr [id number] 05/04/20 00:00 05/08/20 08:12 100 MLS/HR Calcium/Vitamin D (Oscal D 500mg/ 200uts) 2 tab BIDWMEALS 05/03/20 17:00 05/08/20 08:12 2 TAB Cefazolin Sodium/ Dextrose (Ancef 2gm Premix) 2 gm STK-MED ONCE 05/02/20 08:00 05/03/20 12:58 DC Cetirizine HCl (ZyrTEC) 10 mg QHS 05/04/20 21:00 05/07/20 14:57 10 MG Desflurane (Suprane) 60 ml STK-MED ONCE 05/02/20 07:52 05/02/20 07:52 DC Dexamethasone Sodium Phosphate (Decadron) 4 mg STK-MED ONCE 05/02/20 08:11 05/02/20 08:11 DC Dextrose (Dextrose 50%-Water Syringe) 12.5 gm PRN Q15MIN PRN 05/02/20 15:45 Ephedrine Sulfate (ePHEDrine PF IN SALINE SYRINGE) 50 mg STK-MED ONCE 05/02/20 08:11 05/02/20 08:11 DC Fentanyl Citrate (Fentanyl 2ml Vial) 100 mcg STK-MED ONCE 05/02/20 12:17 05/02/20 12:17 DC Fentanyl Citrate (Fentanyl 5ml Vial) 250 mcg STK-MED ONCE 05/02/20 07:32 05/02/20 07:33 DC Fluticasone Propionate (Flonase) 2 spray QHS 05/04/20 21:00 05/07/20 21:14 2 SPRAY Hydralazine HCl (Apresoline Inj) 5 mg PRN Q4HRS PRN 05/07/20 15:30 05/07/20 21:19 5 MG Hydromorphone HCl (Dilaudid) 0.2 mg PRN Q1HR PRN 05/02/20 10:45 05/02/20 23:22 0.2 MG Info (PHARMACY MONITORING -- do not chart) 1 each PRN DAILY PRN 05/07/20 08:15 Insulin Glargine (Lantus Syringe) 20 unit QHS 05/02/20 21:00 05/07/20 21:24 20 UNIT Insulin Human Lispro (HumaLOG VIAL for OP,RR ONLY) 10 unit STK-MED ONCE 05/02/20 16:30 05/05/20 10:10 DC Insulin Human Lispro (HumaLOG) 3 units 1X 05/07/20 05:15 Labetalol HCl (Normodyne Iv Push) 10 mg PRN Q4HRS PRN 05/08/20 11:15 05/08/20 11:41 10 MG Lidocaine HCl (Xylocaine-Mpf 1% 2ml Vial) 2 ml PRN 1X PRN 05/02/20 07:00 05/03/20 06:59 DC Lidocaine HCl (Xylocaine-Mpf 1% 5ml Vial) 5 ml STK-MED ONCE 05/02/20 07:32 05/02/20 07:32 DC Midazolam HCl (Versed) 2 mg STK-MED ONCE 05/02/20 07:32 05/02/20 07:33 DC Morphine Sulfate (Morphine Sulfate) 1 mg PRN Q10MIN PRN 05/02/20 07:00 05/03/20 06:59 DC Naloxone HCl (Narcan) 0.4 mg PRN Q2MIN PRN 05/02/20 10:45 Ondansetron HCl (Zofran) 4 mg PRN Q6HRS PRN 05/02/20 10:45 05/07/20 08:55 4 MG Oxycodone/ Acetaminophen (Percocet 5/325) 2 tab PRN Q4HRS PRN 05/02/20 10:45 05/06/20 17:39 2 TAB Pantoprazole Sodium (Protonix) 40 mg BID 05/03/20 22:30 05/08/20 08:12 40 MG Phenol (Chloraseptic) 1 spray PRN Q2HR PRN 05/02/20 17:00 Phenylephrine HCl (Ham-Synephrine Inj) 10 mg STK-MED ONCE 05/02/20 08:12 05/02/20 08:13 DC Phenylephrine HCl (PHENYLEPHRINE in 0.9% NACL PF) 1 mg STK-MED ONCE 05/02/20 08:11 05/02/20 08:11 DC Polyethylene Glycol (miraLAX PACKET) 17 gm PRN DAILY PRN 05/02/20 15:45 Prochlorperazine Edisylate (Compazine) 5 mg PACU PRN PRN 05/02/20 07:00 05/03/20 06:59 DC Propofol (Diprivan) 200 mg STK-MED ONCE 05/02/20 07:32 05/02/20 07:32 DC Ringer's Solution 1,000 ml @ 30 mls/hr Q24H 05/02/20 07:00 05/02/20 18:59 DC Rocuronium [place] (Zemuron) 50 mg STK-MED ONCE 05/02/20 07:56 05/02/20 07:57 DC Sevoflurane (Ultane) 60 ml STK-MED ONCE 05/02/20 07:52 05/02/20 07:52 DC Sodium Chloride 1,000 ml @ 400 mls/hr Q2H30M PRN 05/07/20 08:02 05/07/20 20:01 DC Sodium Chloride (Normal Saline Flush) 3 ml QSHIFT PRN 05/02/20 10:45 Succinylcholine Chloride (Anectine) 200 mg STK-MED ONCE 05/02/20 07:33 05/02/20 07:33 DC Throat Lozenges (Cepacol Sore Throat Lozenge) 1 disha PRN Q2HRS PRN 05/02/20 17:00 05/05/20 20:46 1 DISHA Vitamin B Complex/ Vitamin C (Johanna-Celia) 1 tab DAILY 05/03/20 09:00 05/08/20 08:12 1 TAB Lab Laboratory Tests Test 05/07/20 13:40 05/07/20 15:52 05/07/20 16:10 05/07/20 16:58 Glucose (Fingerstick) 156 mg/dL (70-99) 139 mg/dL (70-99) Calcium Level 8.8 mg/dL (8.5-10.1) Ionized Calcium 1.08 mmol/L (1.13-1.32) Test 05/07/20 21:05 05/08/20 05:47 05/08/20 07:49 05/08/20 11:36 Glucose (Fingerstick) 140 mg/dL (70-99) 105 mg/dL (70-99) 117 mg/dL (70-99) Sodium Level 130 mmol/L (136-145) Potassium Level 4.6 mmol/L (3.5-5.1) Chloride Level 93 mmol/L (98-107) Carbon Dioxide Level 33 mmol/L (21-32) Anion Gap 4 (6-14) Blood Urea Nitrogen 31 mg/dL (8-26) Creatinine 8.7 mg/dL (0.7-1.3) Estimated GFR (Cockcroft-Gault) 8.3 BUN/Creatinine Ratio 4 (6-20) Glucose Level 90 mg/dL (70-99) Calcium Level 7.7 mg/dL (8.5-10.1) Ionized Calcium 1.00 mmol/L (1.13-1.32) Total Bilirubin 0.5 mg/dL (0.2-1.0) Aspartate Amino Transf (AST/SGOT) 14 U/L (15-37) Alanine Aminotransferase (ALT/SGPT) 9 U/L (16-63) Alkaline Phosphatase 356 U/L (46-116) Total Protein 6.7 g/dL (6.4-8.2) Albumin 2.6 g/dL (3.4-5.0) Albumin/Globulin Ratio 0.6 (1.0-1.7) Results All relevant outside records, renal labs, imaging studies, telemetry/EKG's were reviewed. Justicifation of Admission Dx: Justifications for Admission: Justification of Admission Dx: Yes Chronic Renal Failure: Electrolyte Abnormality AYANNA PEREZ MD May 08, 2020 13:30
[2020-05-08 15:00] VITALS: BP 153/90
[2020-05-08] MEDS ORDERED: CALCIUM CARBONATE 500 MG TAB.CHEW PO PRN (19:15)
[2020-05-08 19:45] VITALS: BP 170/107
[2020-05-08] MEDS: FLUTICASONE 50MCG/NASAL SPRAY 16GM BOTTLE. NS SCH (19:46)
[2020-05-08] MEDS: ATORVASTATIN CALCIUM 10 MG TABLET. PO SCH (19:47)
[2020-05-08] MEDS: CETIRIZINE HCL 10 MG TABLET. PO SCH (19:47)
[2020-05-08] MEDS: ONDANSETRON PF 4 MG/2 ML VIAL. IVP PRN (19:49)
[2020-05-08] MEDS: INSULIN GLARGINE SYRINGE. SQ SCH (21:14)
[2020-05-08 23:00] VITALS: BP 157/89
[2020-05-09] MEDS: oxyCODONE/APAP 5/325 1 TAB TABLET PO PRN ×3 (02:22→18:24)
[2020-05-09 02:45] VITALS: BP 185/115
[2020-05-09] MEDS: hydrALAZINE 20 MG/ML VIAL. IVP PRN ×2 (02:49→10:33)
[2020-05-09] MEDS: DEXTROSE 5% IV SCH (04:49)
[2020-05-09] MEDS: CALCIUM GLUCONATE IV SCH (04:49)
[2020-05-09 05:05] LABS: ALBUMIN 2.8 g/dL (3.4-5.0); CALCIUM 7.7 mg/dL (8.5-10.1); CREATININE 11.1 mg/dL (0.7-1.3); GFR 6.3; PHOSPHORUS 3.6 mg/dL (2.6-4.7); POTASSIUM 4.6 mmol/L (3.5-5.1)
[2020-05-09 07:00] VITALS: BP 190/103
[2020-05-09] MEDS: INSULIN LISPRO 300 UNITS/3 ML VIAL. SQ SCH ×7 (07:30→21:00)
[2020-05-09] MEDS: CALCIUM CARB/VIT D3 500/200 TABLET. PO SCH ×3 (08:00→18:22)
[2020-05-09] MEDS: LABETALOL 20 MG/4 ML DISP.SYRIN. IVP PRN ×2 (08:06→18:21)
[2020-05-09] MEDS: ONDANSETRON PF 4 MG/2 ML VIAL. IVP PRN (08:07)
[2020-05-09] MEDS: FOLIC/VIT B COMP W-C (RENAL) TABLET. PO SCH (08:07)
[2020-05-09] MEDS: PANTOPRAZOLE 40 MG TABLET.DR. PO SCH ×2 (08:07→21:37)
[2020-05-09 10:24] VITALS: BP 179/99
[2020-05-09] MEDS: IV NORMAL SALINE 1000ML BAG 1,000 ML IV SCH (10:36)
--- NOTE | 2020-05-09 12:26 | NUR ---
SS following up with discharge planning. SS reviewed pt chart and discussed with pt RN. Pt is currently requiring oxygen. Pt calcium 7.7 today. Per RN, pt on PO calcium and IV fluid with calcium. RN reported that pt calcium needs to be closer to 8.5. Pt getting Hemodialysis today. Discharge plan is to home with spouse when medically ready. SS will continue to follow for discharge planning.
--- NOTE | 2020-05-09 12:36 | PDOC ---
Renal-Progress Notes Subjective Notes Notes FEELING SWOLLEN History of Present Illness Hx of present illness STABLE Vitals Vitals Vital Signs Date Time Temp Pulse Resp B/P (MAP) Pulse Ox O2 Delivery O2 Flow Rate FiO2 05/09/20 10:33 80 179/99 05/09/20 10:24 97.8 18 97 Nasal Cannula 2.0 97.8 Weight Weight [ ] I.O. Intake and Output Intake and Output 05/09/20 07:00 Intake Total 2110 ml Balance 2110 ml Intake Oral 910 ml Other 1200 ml Labs Labs Laboratory Tests Test 05/08/20 14:42 05/08/20 14:57 05/08/20 16:40 05/08/20 20:42 Glucose (Fingerstick) 42 mg/dL (70-99) 154 mg/dL (70-99) 96 mg/dL (70-99) 166 mg/dL (70-99) Test 05/09/20 03:55 05/09/20 04:42 05/09/20 07:13 05/09/20 11:13 Sodium Level 125 mmol/L (136-145) Potassium Level 4.6 mmol/L (3.5-5.1) Chloride Level 87 mmol/L (98-107) Carbon Dioxide Level 26 mmol/L (21-32) Anion Gap 12 (6-14) Blood Urea Nitrogen 38 mg/dL (8-26) Creatinine 11.1 mg/dL (0.7-1.3) Estimated GFR (Cockcroft-Gault) 6.3 Glucose Level 112 mg/dL (70-99) Calcium Level 7.7 mg/dL (8.5-10.1) Phosphorus Level 3.6 mg/dL (2.6-4.7) Albumin 2.8 g/dL (3.4-5.0) Glucose (Fingerstick) 90 mg/dL (70-99) 113 mg/dL (70-99) 245 mg/dL (70-99) Review of Systems Constitutional: yes: alert, oriented Ears/Nose/Throat: Yes: no symptom reported Eyes: Yes: no symptom reported Pulmonary: Yes no symptom reported Cardiovascular: Yes no symptom reported Gastrointestional: Yes: no symptom reported Genitourinary: Yes: no symptom reported Musculoskeletal: Yes: no symptom reported Skin: Yes no symptom reported Psychiatric/Neurological: Yes: no symptom reported Endocrine: Yes: no symptom reported Physical Exam General Appearance: no apparent distress Skin: warm Respiratory: bilateral CTA Heart: S1S2 Abdomen: soft, bowel sounds present Genitourinary: bladder flat Extremities: pulses present Neurology: alert Musculoskeletal: Other Assessment Assessment IMP ESRD S/P SUBTOTAL PARATHYROIDECTOMY HYPOCALCEMIA-HUNGRY BONES ANEMIA DM II HTN PLAN HD TODAY 3.5 CA DIALYSATE UF TOLERATED SUPPLEMENT CALCIUM NEEDS TO STAY INPT TILL CA LEVELS STABILIZE STOP CA GTT IF CA IS STABLE THEN D/C TOMORROW AM ARIANNE UMANA MD May 09, 2020 12:36
--- NOTE | 2020-05-09 12:48 | PDOC ---
MASON NEVAREZ ADVANCED PRACTICE NURSE PSYCHOTHERAPIST 05/09/20 1248: SURGICAL PROGRESS NOTE Subjective no complaints reviewed with nurse--IV calcium stopped, Parks thought possible DC tomorrow HTN Vital Signs Vital Signs Date Time Temp Pulse Resp B/P (MAP) Pulse Ox O2 Delivery O2 Flow Rate FiO2 05/09/20 10:33 80 179/99 05/09/20 10:24 97.8 18 97 Nasal Cannula 2.0 97.8 I&O Intake and Output 05/09/20 07:00 Intake Total 2110 ml Balance 2110 ml Intake Oral 910 ml Other 1200 ml General: Alert, Oriented X3, Cooperative HEENT: Other (incision c/d/i, no erythema) Labs Laboratory Tests Test 05/07/20 13:40 05/07/20 15:52 05/07/20 16:10 05/07/20 16:58 Glucose (Fingerstick) 156 mg/dL (70-99) 139 mg/dL (70-99) Calcium Level 8.8 mg/dL (8.5-10.1) Ionized Calcium 1.08 mmol/L (1.13-1.32) Test 05/07/20 21:05 05/08/20 05:47 05/08/20 07:49 05/08/20 11:36 Glucose (Fingerstick) 140 mg/dL (70-99) 105 mg/dL (70-99) 117 mg/dL (70-99) Sodium Level 130 mmol/L (136-145) Potassium Level 4.6 mmol/L (3.5-5.1) Chloride Level 93 mmol/L (98-107) Carbon Dioxide Level 33 mmol/L (21-32) Anion Gap 4 (6-14) Blood Urea Nitrogen 31 mg/dL (8-26) Creatinine 8.7 mg/dL (0.7-1.3) Estimated GFR (Cockcroft-Gault) 8.3 BUN/Creatinine Ratio 4 (6-20) Glucose Level 90 mg/dL (70-99) Calcium Level 7.7 mg/dL (8.5-10.1) Ionized Calcium 1.00 mmol/L (1.13-1.32) Total Bilirubin 0.5 mg/dL (0.2-1.0) Aspartate Amino Transf (AST/SGOT) 14 U/L (15-37) Alanine Aminotransferase (ALT/SGPT) 9 U/L (16-63) Alkaline Phosphatase 356 U/L (46-116) Total Protein 6.7 g/dL (6.4-8.2) Albumin 2.6 g/dL (3.4-5.0) Albumin/Globulin Ratio 0.6 (1.0-1.7) Test 05/08/20 14:42 05/08/20 14:57 05/08/20 16:40 05/08/20 20:42 Glucose (Fingerstick) 42 mg/dL (70-99) 154 mg/dL (70-99) 96 mg/dL (70-99) 166 mg/dL (70-99) Test 05/09/20 03:55 05/09/20 04:42 05/09/20 07:13 05/09/20 11:13 Sodium Level 125 mmol/L (136-145) Potassium Level 4.6 mmol/L (3.5-5.1) Chloride Level 87 mmol/L (98-107) Carbon Dioxide Level 26 mmol/L (21-32) Anion Gap 12 (6-14) Blood Urea Nitrogen 38 mg/dL (8-26) Creatinine 11.1 mg/dL (0.7-1.3) Estimated GFR (Cockcroft-Gault) 6.3 Glucose Level 112 mg/dL (70-99) Calcium Level 7.7 mg/dL (8.5-10.1) Phosphorus Level 3.6 mg/dL (2.6-4.7) Albumin 2.8 g/dL (3.4-5.0) Glucose (Fingerstick) 90 mg/dL (70-99) 113 mg/dL (70-99) 245 mg/dL (70-99) Laboratory Tests Test 05/08/20 14:42 05/08/20 14:57 05/08/20 16:40 05/08/20 20:42 Glucose (Fingerstick) 42 mg/dL (70-99) 154 mg/dL (70-99) 96 mg/dL (70-99) 166 mg/dL (70-99) Test 05/09/20 03:55 05/09/20 04:42 05/09/20 07:13 05/09/20 11:13 Sodium Level 125 mmol/L (136-145) Potassium Level 4.6 mmol/L (3.5-5.1) Chloride Level 87 mmol/L (98-107) Carbon Dioxide Level 26 mmol/L (21-32) Anion Gap 12 (6-14) Blood Urea Nitrogen 38 mg/dL (8-26) Creatinine 11.1 mg/dL (0.7-1.3) Estimated GFR (Cockcroft-Gault) 6.3 Glucose Level 112 mg/dL (70-99) Calcium Level 7.7 mg/dL (8.5-10.1) Phosphorus Level 3.6 mg/dL (2.6-4.7) Albumin 2.8 g/dL (3.4-5.0) Glucose (Fingerstick) 90 mg/dL (70-99) 113 mg/dL (70-99) 245 mg/dL (70-99) Assessment/Plan possible home tomorrow Justicifation of Admission Dx: Justifications for Admission: Justification of Admission Dx: Yes Chronic Renal Failure: Electrolyte Abnormality HONG ROGER MD 05/10/20 0731: SURGICAL PROGRESS NOTE Assessment/Plan Agree with above MASON NEVAREZ ADVANCED PRACTICE NURSE PSYCHOTHERAPIST May 09, 2020 12:48 HONG ROGER MD May 10, 2020 07:31
[2020-05-09] MEDS ORDERED: IV NORMAL SALINE 1000ML BAG 1,000 ML IV PRN ×2 (13:13)
[2020-05-09] MEDS ORDERED: DIALYSIS PATIENT. MC PRN (13:15)
--- NOTE | 2020-05-09 15:28 | PDOC ---
[employer] [facility] PROGRESS NOTE Chief Complaint Chief Complaint A/P: Secondary hyperparathyroidism - s/p left inferior/superior, right superior and right inferior sub-total parathyroidectomy and left inferior thyroid nodule resection. Q6hour calcium monitoring. ESRD - was on PD ,switched to HD - MW. 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 Consulted for HD management. Getting eval for renal Tx at [facility] DM2 with Blood Glucose very high - will give 25u TID and glargine per home regimen Chronic Diastolic CHF-Stable, On R HTN- continue antihypertensives GERD - will cont PPI HLD - cont statin GALINDO on CPAP - cont inpatient Anemia of chronic renal insufficiency - stable FEN - Renal ADA diet PPX - heparin with dialysis FULL CODE Dispo -once calcium stabilizes we will consider discharge tomorrow a.m. History of Present Illness History of Present Illness History of Present Illness Reason for Visit: Mr Villa is a 40 yo M w/ PMHx HTN, HLD, GALINDO on CPAP, DM2 on insulin, ESRD on HD (previously on PD), anemia of chronic renal insufficiency, and recent diagnosis of secondary hyperparathyroidism who is admitted today for post-operative management and calcium monitoring after symptomatic hypeparathyroidism with a left inferior/superior, right superior and right inferior sub-total parathyroidectomy and left inferior thyroid nodule resection. Glucose 408 and has as sore throat post-operatively 05/09/2020 Patient seen and examined bedside today. Patient is tolerating diet. Plan for HD today. Patient does feel swollen but does not feel short of breath. Calcium 7.7 and is stable. 05/04/2020 No acute events reported overnight, case discussed with nursing staff patient in no acute distress no complaints during my visit 05/05/2020 Patient seen in dialysis, no acute distress. Electrolyte disturbance noted. We will continue to replace with the help of our nephrology intelligence consultant 05/06/2020 No acute events reported overnight, case discussed with nursing staff patient in no acute distress no complaints during my visit Patient feeling nauseous, could not sleep due to symptoms, seems acutely ill, hemodynamically stable, reassurance provided, will follow rec from intelligence consultant. 05/08/2020 Patient still having bouts of uncontrolled hypertension definitely feels better compared to yesterday and no further nausea has been reported. Plan of care explained in detail and reassurance provided no new complaints voiced during my encounter Vitals/I&O Vitals/I&O: Vital Signs Date Time Temp Pulse Resp B/P (MAP) Pulse Ox O2 Delivery O2 Flow Rate FiO2 05/09/20 10:33 80 179/99 05/09/20 10:24 97.8 18 97 Nasal Cannula 2.0 97.8 I & O 05/08/20 05/08/20 05/09/20 15:00 23:00 07:00 Intake Total 660 ml 250 ml 1200 ml Balance 660 ml 250 ml 1200 ml Physical Exam General: Alert, Oriented X3, Cooperative Heart: Regular rate Lungs: Clear Abdomen: Normal bowel sounds, No tenderness Extremities: No cyanosis Skin: No breakdown Labs Labs: Laboratory Tests Test 05/08/20 16:40 05/08/20 20:42 05/09/20 03:55 05/09/20 04:42 Glucose (Fingerstick) 96 mg/dL (70-99) 166 mg/dL (70-99) 90 mg/dL (70-99) Sodium Level 125 mmol/L (136-145) Potassium Level 4.6 mmol/L (3.5-5.1) Chloride Level 87 mmol/L (98-107) Carbon Dioxide Level 26 mmol/L (21-32) Anion Gap 12 (6-14) Blood Urea Nitrogen 38 mg/dL (8-26) Creatinine 11.1 mg/dL (0.7-1.3) Estimated GFR (Cockcroft-Gault) 6.3 Glucose Level 112 mg/dL (70-99) Calcium Level 7.7 mg/dL (8.5-10.1) Phosphorus Level 3.6 mg/dL (2.6-4.7) Albumin 2.8 g/dL (3.4-5.0) Test 05/09/20 07:13 05/09/20 11:13 Glucose (Fingerstick) 113 mg/dL (70-99) 245 mg/dL (70-99) Review of Systems Review of Systems: CONSTITUIONAL: Denies weight loss, fever and chills. HEENT: Denies changes in vision and hearing. RESPIRATORY: Denies SOB and cough. CV: Denies palpitations and CP. GI: Denies abdominal pain, nausea, vomiting and diarrhea. : Denies dysuria and urinary frequency. MSK: Denies myalgia and joint pain. SKIN: Denies rash and pruritus. Patient feels edematous NEUROLOGICAL: Denies headache and syncope. PSYCHIATRIC: Denies recent changes in mood. Denies anxiety and depression. Comment Review of Relevant I have reviewed the following items javy (where applicable) has been applied. Medications: Current Medications Medications (Trade) Dose Ordered Sig/Afua Route PRN Reason Start Time Stop Time Status Last Admin Dose Admin Calcium Carbonate/ Glycine (Tums) 500 mg PRN AFTMEALHC PRN PO INDIGESTION 05/08/20 19:15 05/08/20 19:45 Calcium/Vitamin D (Oscal D 500mg/ 200uts) 2 tab TIDWMEALS PO 05/09/20 12:15 05/09/20 12:33 Justicifation of Admission Dx: Justifications for Admission: Justification of Admission Dx: Yes Chronic Renal Failure: Electrolyte Abnormality ROSEMARY RIVERA MD May 09, 2020 15:28
[2020-05-09 18:20] VITALS: BP 187/107
[2020-05-09] MEDS: ATORVASTATIN CALCIUM 10 MG TABLET. PO SCH (21:37)
[2020-05-09] MEDS: FLUTICASONE 50MCG/NASAL SPRAY 16GM BOTTLE. NS SCH (21:37)
[2020-05-09] MEDS: CETIRIZINE HCL 10 MG TABLET. PO SCH (21:37)
[2020-05-09] MEDS: INSULIN GLARGINE SYRINGE. SQ SCH (21:42)
[2020-05-09 23:00] VITALS: BP 168/102
[2020-05-10 03:00] VITALS: BP 137/95
[2020-05-10 03:13] LABS: HEMOGLOBIN 10.4 g/dL (13.0-17.5); RED BLOOD COUNT 3.23 x10^6/uL (4.30-5.70); RED CELL DISTRIBUTION WIDTH 13.2 % (11.5-14.5); WHITE BLOOD COUNT 7.1 x10^3/uL (4.0-11.0)
[2020-05-10 03:37] LABS: CALCIUM 7.8 mg/dL (8.5-10.1); GFR 9.1; MAGNESIUM 2.1 mg/dL (1.8-2.4); PHOSPHORUS 3.5 mg/dL (2.6-4.7); POTASSIUM 5.2 mmol/L (3.5-5.1)
[2020-05-10 07:00] VITALS: BP 158/88
[2020-05-10] MEDS: INSULIN LISPRO 300 UNITS/3 ML VIAL. SQ SCH ×4 (07:30→12:08)
[2020-05-10] MEDS: PANTOPRAZOLE 40 MG TABLET.DR. PO SCH (08:42)
[2020-05-10] MEDS: FOLIC/VIT B COMP W-C (RENAL) TABLET. PO SCH (08:42)
[2020-05-10] MEDS: CALCIUM CARB/VIT D3 500/200 TABLET. PO SCH ×2 (08:42→12:04)
[2020-05-10] MEDS: oxyCODONE/APAP 5/325 1 TAB TABLET PO PRN (08:43)
--- NOTE | 2020-05-10 08:43 | PDOC ---
PROGRESS NOTES Subjective Subjective feels well, no pain Objective Objective Vital Signs Date Time Temp Pulse Resp B/P (MAP) Pulse Ox O2 Delivery O2 Flow Rate FiO2 05/10/20 07:00 98.0 102 18 158/88 (111) 96 98.0 05/09/20 20:16 Room Air 05/09/20 18:20 2.0 Intake and Output 05/10/20 07:00 Intake Total 1240 ml Balance 1240 ml Intake Oral 1240 ml Physical Exam Physical Exam incision healing well Plan Plan of Care Await renal input, DC when ok with them Comment Review of Relevant I have reviewed the following items javy (where applicable) has been applied. Labs Laboratory Tests Test 05/08/20 11:36 05/08/20 14:42 05/08/20 14:57 05/08/20 16:40 Glucose (Fingerstick) 117 mg/dL (70-99) 42 mg/dL (70-99) 154 mg/dL (70-99) 96 mg/dL (70-99) Test 05/08/20 20:42 05/09/20 03:55 05/09/20 04:42 05/09/20 07:13 Glucose (Fingerstick) 166 mg/dL (70-99) 90 mg/dL (70-99) 113 mg/dL (70-99) Sodium Level 125 mmol/L (136-145) Potassium Level 4.6 mmol/L (3.5-5.1) Chloride Level 87 mmol/L (98-107) Carbon Dioxide Level 26 mmol/L (21-32) Anion Gap 12 (6-14) Blood Urea Nitrogen 38 mg/dL (8-26) Creatinine 11.1 mg/dL (0.7-1.3) Estimated GFR (Cockcroft-Gault) 6.3 Glucose Level 112 mg/dL (70-99) Calcium Level 7.7 mg/dL (8.5-10.1) Phosphorus Level 3.6 mg/dL (2.6-4.7) Albumin 2.8 g/dL (3.4-5.0) Test 05/09/20 11:13 05/09/20 18:18 05/09/20 21:35 05/10/20 03:00 Glucose (Fingerstick) 245 mg/dL (70-99) 85 mg/dL (70-99) 191 mg/dL (70-99) White Blood Count 7.1 x10^3/uL (4.0-11.0) Red Blood Count 3.23 x10^6/uL (4.30-5.70) Hemoglobin 10.4 g/dL (13.0-17.5) Hematocrit 30.0 % (39.0-53.0) Mean Corpuscular Volume 93 fL (79-100) Mean Corpuscular Hemoglobin 32 pg (25-35) Mean Corpuscular Hemoglobin Concent 35 g/dL (31-37) Red Cell Distribution Width 13.2 % (11.5-14.5) Platelet Count 238 x10^3/uL (140-400) Sodium Level 134 mmol/L (136-145) Potassium Level 5.2 mmol/L (3.5-5.1) Chloride Level 97 mmol/L (98-107) Carbon Dioxide Level 30 mmol/L (21-32) Anion Gap 7 (6-14) Blood Urea Nitrogen 27 mg/dL (8-26) Creatinine 8.0 mg/dL (0.7-1.3) Estimated GFR (Cockcroft-Gault) 9.1 Glucose Level 59 mg/dL (70-99) Calcium Level 7.8 mg/dL (8.5-10.1) Phosphorus Level 3.5 mg/dL (2.6-4.7) Magnesium Level 2.1 mg/dL (1.8-2.4) Test 05/10/20 04:49 05/10/20 05:21 05/10/20 07:13 Glucose (Fingerstick) 51 mg/dL (70-99) 108 mg/dL (70-99) 130 mg/dL (70-99) Laboratory Tests Test 05/09/20 11:13 05/09/20 18:18 05/09/20 21:35 05/10/20 03:00 Glucose (Fingerstick) 245 mg/dL (70-99) 85 mg/dL (70-99) 191 mg/dL (70-99) White Blood Count 7.1 x10^3/uL (4.0-11.0) Red Blood Count 3.23 x10^6/uL (4.30-5.70) Hemoglobin 10.4 g/dL (13.0-17.5) Hematocrit 30.0 % (39.0-53.0) Mean Corpuscular Volume 93 fL (79-100) Mean Corpuscular Hemoglobin 32 pg (25-35) Mean Corpuscular Hemoglobin Concent 35 g/dL (31-37) Red Cell Distribution Width 13.2 % (11.5-14.5) Platelet Count 238 x10^3/uL (140-400) Sodium Level 134 mmol/L (136-145) Potassium Level 5.2 mmol/L (3.5-5.1) Chloride Level 97 mmol/L (98-107) Carbon Dioxide Level 30 mmol/L (21-32) Anion Gap 7 (6-14) Blood Urea Nitrogen 27 mg/dL (8-26) Creatinine 8.0 mg/dL (0.7-1.3) Estimated GFR (Cockcroft-Gault) 9.1 Glucose Level 59 mg/dL (70-99) Calcium Level 7.8 mg/dL (8.5-10.1) Phosphorus Level 3.5 mg/dL (2.6-4.7) Magnesium Level 2.1 mg/dL (1.8-2.4) Test 05/10/20 04:49 05/10/20 05:21 05/10/20 07:13 Glucose (Fingerstick) 51 mg/dL (70-99) 108 mg/dL (70-99) 130 mg/dL (70-99) Medications Current Medications Ondansetron HCl (Zofran) 4 mg PRN Q6HRS PRN IV NAUSEA/VOMITING; Start 05/02/20 at 07:00; Stop 05/03/20 at 06:59; Status DC Fentanyl Citrate (Fentanyl 2ml Vial) 25 mcg PRN Q5MIN PRN IV MILD PAIN 1-3; Start 05/02/20 at 07:00; Stop 05/03/20 at 06:59; Status DC Fentanyl Citrate (Fentanyl 2ml Vial) 50 mcg PRN Q5MIN PRN IV MODERATE TO SEVERE PAIN Last administered on 05/02/20at 13:27; Start 05/02/20 at 07:00; Stop 05/03/20 at 06:59; Status DC Morphine Sulfate (Morphine Sulfate) 1 mg PRN Q10MIN PRN IV SEVERE PAIN 7-10; Start 05/02/20 at 07:00; Stop 05/03/20 at 06:59; Status DC Ringer's Solution 1,000 ml @ 30 mls/hr Q24H IV ; Start 05/02/20 at 07:00; Stop 05/02/20 at 18:59; Status DC Lidocaine HCl (Xylocaine-Mpf 1% 2ml Vial) 2 ml PRN 1X PRN ID PRIOR TO IV START; Start 05/02/20 at 07:00; Stop 05/03/20 at 06:59; Status DC Hydromorphone HCl (Dilaudid) 0.5 mg PRN Q10MIN PRN IV SEV PAIN, Second choice; Start 05/02/20 at 07:00; Stop 05/03/20 at 06:59; Status DC Prochlorperazine Edisylate (Compazine) 5 mg PACU PRN PRN IV NAUSEA, MRX1; Start 05/02/20 at 07:00; Stop 05/03/20 at 06:59; Status DC Cefazolin Sodium/ Dextrose 50 ml @ 100 mls/hr 1X PREOP PRN IV PRIOR TO PROCEDURE Last administered on 05/02/20at 07:40; Start 05/02/20 at 08:00; Stop 05/02/20 at 18:00; Status DC Insulin Human Lispro (HumaLOG VIAL for OP,RR ONLY) 0-10 units PRN Q1HR PRN SQ PER PROTOCOL Last administered on 05/02/20at 16:21; Start 05/02/20 at 07:15; Stop 05/03/20 at 07:14; Status DC Sodium Chloride 1,000 ml @ 0 mls/hr Q0M IV Last administered on 05/02/20at 07:24; Start 05/02/20 at 07:15; Stop 05/05/20 at 15:16; Status DC Propofol (Diprivan) 200 mg STK-MED ONCE IV ; Start 05/02/20 at 07:32; Stop 05/02/20 at 07:32; Status DC Lidocaine HCl (Xylocaine-Mpf 1% 5ml Vial) 5 ml STK-MED ONCE .ROUTE ; Start 05/02/20 at 07:32; Stop 05/02/20 at 07:32; Status DC Midazolam HCl (Versed) 2 mg STK-MED ONCE .ROUTE ; Start 05/02/20 at 07:32; Stop 05/02/20 at 07:33; Status DC Fentanyl Citrate (Fentanyl 5ml Vial) 250 mcg STK-MED ONCE .ROUTE ; Start 05/02/20 at 07:32; Stop 05/02/20 at 07:33; Status DC Succinylcholine Chloride (Anectine) 200 mg STK-MED ONCE .ROUTE ; Start 05/02/20 at 07:33; Stop 05/02/20 at 07:33; Status DC Ondansetron HCl (Zofran) 4 mg STK-MED ONCE .ROUTE ; Start 05/02/20 at 07:36; Stop 05/02/20 at 07:36; Status DC Dexamethasone Sodium Phosphate (Decadron) 4 mg STK-MED ONCE .ROUTE ; Start 05/02/20 at 07:36; Stop 05/02/20 at 07:36; Status DC Desflurane (Suprane) 60 ml STK-MED ONCE IH ; Start 05/02/20 at 07:52; Stop 05/02/20 at 07:52; Status DC Sevoflurane (Ultane) 60 ml STK-MED ONCE IH ; Start 05/02/20 at 07:52; Stop 05/02/20 at 07:52; Status DC Rocuronium [place] (Zemuron) 50 mg STK-MED ONCE .ROUTE ; Start 05/02/20 at 07:56; Stop 05/02/20 at 07:57; Status DC Dexamethasone Sodium Phosphate (Decadron) 4 mg STK-MED ONCE .ROUTE ; Start 05/02/20 at 08:11; Stop 05/02/20 at 08:11; Status DC Phenylephrine HCl (PHENYLEPHRINE in 0.9% NACL PF) 1 mg STK-MED ONCE IV ; Start 05/02/20 at 08:11; Stop 05/02/20 at 08:11; Status DC Ephedrine Sulfate (ePHEDrine PF IN SALINE SYRINGE) 50 mg STK-MED ONCE IV ; Start 05/02/20 at 08:11; Stop 05/02/20 at 08:11; Status DC Phenylephrine HCl (Ham-Synephrine Inj) 10 mg STK-MED ONCE .ROUTE ; Start 05/02/20 at 08:12; Stop 05/02/20 at 08:13; Status DC Sodium Chloride (Normal Saline Flush) 3 ml QSHIFT PRN IV AFTER MEDS AND BLOOD DRAWS; Start 05/02/20 at 10:45 Sodium Chloride 1,000 ml @ 60 mls/hr [id number] IV ; Start 05/02/20 at 10:36; Stop 05/04/20 at 11:17; Status DC Oxycodone/ Acetaminophen (Percocet 5/325) 1 tab PRN Q4HRS PRN PO MILD PAIN, 1ST CHOICE Last administered on 05/09/20at 18:24; Start 05/02/20 at 10:45 Oxycodone/ Acetaminophen (Percocet 5/325) 2 tab PRN Q4HRS PRN PO MODERATE PAIN, SEVERE PAIN Last administered on 05/06/20at 17:39; Start 05/02/20 at 10:45 Naloxone HCl (Narcan) 0.4 mg PRN Q2MIN PRN IV SEE INSTRUCTIONS; Start 05/02/20 at 10:45 Sodium Chloride 1,000 ml @ 25 mls/hr Q24H IV ; Start 05/02/20 at 10:36 Hydromorphone HCl (Dilaudid) 0.2 mg PRN Q1HR PRN IV PAIN Last administered on 05/02/20at 23:22; Start 05/02/20 at 10:45 Ondansetron HCl (Zofran) 4 mg PRN Q6HRS PRN IVP NAUESA, 1ST CHOICE Last administered on 05/09/20at 08:07; Start 05/02/20 at 10:45 Fentanyl Citrate (Fentanyl 2ml Vial) 100 mcg STK-MED ONCE .ROUTE ; Start 05/02/20 at 11:46; Stop 05/02/20 at 11:46; Status DC Fentanyl Citrate (Fentanyl 2ml Vial) 100 mcg STK-MED ONCE .ROUTE ; Start 05/02/20 at 12:17; Stop 05/02/20 at 12:17; Status DC Pantoprazole Sodium (Protonix) 40 mg 1X ONCE PO Last administered on 05/02/20at 15:18; Start 05/02/20 at 15:15; Stop 05/02/20 at 15:16; Status DC Atorvastatin Calcium (Lipitor) 10 mg HS PO Last administered on 05/09/20at 21:37; Start 05/02/20 at 21:00 Polyethylene Glycol (miraLAX PACKET) 17 gm PRN DAILY PRN PO CONSTIPATION; Start 05/02/20 at 15:45 Insulin Human Lispro (HumaLOG) 12 units TIDWMEALS SQ Last administered on 05/09/20at 18:22; Start 05/02/20 at 17:30 Insulin Glargine (Lantus Syringe) 20 unit QHS SQ Last administered on 05/09/20at 21:42; Start 05/02/20 at 21:00 Pantoprazole Sodium (Protonix) 40 mg DAILYAC PO Last administered on 05/03/20at 13:17; Start 05/03/20 at 07:30; Stop 05/03/20 at 22:01; Status DC Vitamin B Complex/ Vitamin C (Johanna-Celia) 1 tab DAILY PO Last administered on 05/09/20at 08:07; Start 05/03/20 at 09:00 Insulin Human Lispro (HumaLOG) 0-7 UNITS TIDACHC SQ Last administered on 05/07/20at 08:15; Start 05/02/20 at 17:30 Dextrose (Dextrose 50%-Water Syringe) 12.5 gm PRN Q15MIN PRN IV SEE COMMENTS Last administered on 05/08/20at 14:46; Start 05/02/20 at 15:45 Phenol (Chloraseptic) 1 spray PRN Q2HR PRN PO SORE THROAT, 2ND CHOICE; Start 05/02/20 at 17:00 Throat Lozenges (Cepacol Sore Throat Lozenge) 1 afshan PRN Q2HRS PRN PO SORE THROAT, 1ST CHOICE Last administered on 05/05/20at 20:46; Start 05/02/20 at 17:00 Calcium Gluconate (Calcium Gluconate) 1,000 mg 1X ONCE IVP Last administered on 05/02/20at 18:55; Start 05/02/20 at 18:30; Stop 05/02/20 at 18:31; Status DC Calcium Gluconate 3000 mg/Dextrose 1,030 ml @ 60 mls/hr [id number] IV Last administered on 05/02/20at 19:24; Start 05/02/20 at 19:00; Stop 05/03/20 at 11:00; Status DC Calcium Gluconate 3000 mg/Dextrose 1,030 ml @ 60 mls/hr [id number] IV ; Start 05/02/20 at 19:00; Status Cancel Calcium Gluconate (Calcium Gluconate) 2,000 mg 1X ONCE IVP Last administered on 05/03/20at 05:15; Start 05/03/20 at 05:30; Stop 05/03/20 at 05:31; Status DC Sodium Chloride 1,000 ml @ 1,000 mls/hr Q1H PRN IV hypotension; Start 05/03/20 at 07:52; Stop 05/03/20 at 13:51; Status DC Sodium Chloride 1,000 ml @ 400 mls/hr Q2H30M PRN IV PATENCY; Start 05/03/20 at 07:52; Stop 05/03/20 at 19:51; Status DC Info (PHARMACY MONITORING -- do not chart) 1 each PRN DAILY PRN MC SEE COMMENTS; Start 05/03/20 at 08:00; Stop 05/03/20 at 17:02; Status DC Info (PHARMACY MONITORING -- do not chart) 1 each PRN DAILY PRN MC SEE COMMENTS; Start 05/03/20 at 08:00; Status Cancel Calcium/Vitamin D (Oscal D 500mg/ 200uts) 2 tab BIDWMEALS PO Last administered on 05/09/20at 08:00; Start 05/03/20 at 17:00; Stop 05/09/20 at 12:15; Status DC Cefazolin Sodium/ Dextrose (Ancef 2gm Premix) 2 gm STK-MED ONCE IV ; Start 05/02/20 at 08:00; Stop 05/03/20 at 12:58; Status DC Pantoprazole Sodium (Protonix) 40 mg BID PO Last administered on 05/09/20at 21:37; Start 05/03/20 at 22:30 Calcium Gluconate 3000 mg/Dextrose 1,030 ml @ 100 mls/hr [id number] IV Last administered on 05/09/20at 04:49; Start 05/04/20 at 00:00; Stop 05/09/20 at 12:15; Status DC Fluticasone Propionate (Flonase) 2 spray QHS NS Last administered on 05/09/20at 21:37; Start 05/04/20 at 21:00 Cetirizine HCl (ZyrTEC) 10 mg PRN DAILY PRN PO ALLERGIES; Start 05/04/20 at 18:15; Stop 05/04/20 at 19:32; Status DC Cetirizine HCl (ZyrTEC) 10 mg QHS PO Last administered on 05/09/20at 21:37; Start 05/04/20 at 21:00 Sodium Chloride 1,000 ml @ 1,000 mls/hr Q1H PRN IV hypotension; Start 05/05/20 at 07:33; Stop 05/05/20 at 13:32; Status DC Sodium Chloride 1,000 ml @ 400 mls/hr Q2H30M PRN IV PATENCY; Start 05/05/20 at 07:33; Stop 05/05/20 at 19:32; Status DC Info (PHARMACY MONITORING -- do not chart) 1 each PRN DAILY PRN MC SEE COM MENTS; Start 05/05/20 at 07:45 Insulin Human Lispro (HumaLOG VIAL for OP,RR ONLY) 2 unit STK-MED ONCE SQ ; Start 05/02/20 at 16:30; Stop 05/05/20 at 10:10; Status DC Insulin Human Lispro (HumaLOG VIAL for OP,RR ONLY) 10 unit STK-MED ONCE SQ ; Start 05/02/20 at 16:30; Stop 05/05/20 at 10:10; Status DC Insulin Human Lispro (HumaLOG VIAL for OP,RR ONLY) 10 unit STK-MED ONCE SQ ; St art 05/02/20 at 16:30; Stop 05/05/20 at 10:10; Status DC Hydralazine HCl (Apresoline Inj) 10 mg PRN Q4HRS PRN IVP ELEVATED BP, SEE COMMENTS Last administered on 05/09/20at 10:33; Start 05/07/20 at 02:30 Insulin Human Lispro (HumaLOG) 3 units 1X SQ ; Start 05/07/20 at 05:15 Sodium Chloride 1,000 ml @ 1,000 mls/hr Q1H PRN IV hypotension; Start 05/07/20 at 08:02; Stop 05/07/20 at 14:01; Status DC Albumin Human 200 ml @ 200 mls/hr 1X PRN PRN IV Hypotension; Start 05/07/20 at 08:15; Stop 05/07/20 at 14:14; Status DC Sodium Chloride 1,000 ml @ 400 mls/hr Q2H30M PRN IV PATENCY; Start 05/07/20 at 08:02; Stop 05/07/20 at 20:01; Status DC Info (PHARMACY MONITORING -- do not chart) 1 each PRN DAILY PRN MC SEE COMMENTS; Start 05/07/20 at 08:15; Status UNV Info (PHARMACY MONITORING -- do not chart) 1 each PRN DAILY PRN MC SEE COMMENTS; Start 05/07/20 at 08:15; Status Cancel Hydralazine HCl (Apresoline Inj) 5 mg PRN Q4HRS PRN IVP ELEVATED BP, SEE COMMENTS Last administered on 05/07/20at 21:19; Start 05/07/20 at 15:30 Labetalol HCl (Normodyne Iv Push) 10 mg PRN Q4HRS PRN IVP HYPERTENSION Last administered on 05/09/20at 18:21; Start 05/08/20 at 11:15 Calcium Carbonate/ Glycine (Tums) 500 mg PRN AFTMEALHC PRN PO INDIGESTION Last administered on 05/08/20at 19:45; Start 05/08/20 at 19:15 Calcium/Vitamin D (Oscal D 500mg/ 200uts) 2 tab TIDWMEALS PO Last administered on 05/09/20at 18:22; Start 05/09/20 at 12:15 Sodium Chloride 1,000 ml @ 1,000 mls/hr Q1H PRN IV hypotension; Start 05/09/20 at 13:13; Stop 05/09/20 at 19:12; Status DC Sodium Chloride 1,000 ml @ 400 mls/hr Q2H30M PRN IV PATENCY; Start 05/09/20 at 13:13; Stop 05/10/20 at 01:12; Status DC Info (PHARMACY MONITORING -- do not chart) 1 each PRN DAILY PRN MC SEE COMMENTS; Start 05/09/20 at 13:15 Active Scripts Active Reported Miralax (Polyethylene Glycol 3350) 17 Gm Powd.pack 1 Packet PO PRN PRN 2 Days dissolve in water Atorvastatin Calcium 10 Mg Tablet 10 Mg PO HS [auryxia] 630 Mg PO TIDAC Protonix (Pantoprazole Sodium) 20 Mg Tablet.dr 2 Tab PO DAILY Furosemide 80 Mg Tablet 1 Tab PO TID Vitamin D (Cholecalciferol (Vitamin D3)) 5,000 Unit Tablet 5,000 Unit PO DAILY Johanna-Celia Rx Tablet (Vit B Cmplx 3/Fa/Vit C/Biotin) 1 Each Tablet 1 Each PO DAILY Sensipar (Cinacalcet Hcl) 60 Mg Tablet 90 Mg PO DAILY Novolog (Insulin Aspart) 100 Unit/1 Ml Vial 12 Unit SQ TIDAC sliding scale Lantus Solostar (Insulin Glargine,Hum.rec.anlog) 100 Unit/1 Ml Insuln.pen 20 Unit SQ HS Vitals/I & O Vital Sign - Last 24 Hours 05/09/20 05/09/20 05/09/20 05/09/20 10:24 10:33 18:20 18:21 Temp 97.8 98.4 97.8 98.4 Pulse 80 80 109 111 Resp 18 18 B/P (MAP) 179/99 (125) 179/99 187/107 (133) 187/105 Pulse Ox 97 99 O2 Delivery Nasal Cannula Nasal Cannula O2 Flow Rate 2.0 2.0 05/09/20 05/09/20 05/09/20 05/10/20 19:32 20:16 23:00 03:00 Temp 98.6 98.8 98.6 98.8 Pulse 93 105 Resp 18 18 B/P (MAP) 168/102 (124) 137/95 (109) Pulse Ox 98 95 O2 Delivery Room Air Room Air 05/10/20 07:00 Temp 98.0 98.0 Pulse 102 Resp 18 B/P (MAP) 158/88 (111) Pulse Ox 96 Intake and Output 05/09/20 05/09/20 05/10/20 15:00 23:00 07:00 Intake Total 300 ml 500 ml 440 ml Balance 300 ml 500 ml 440 ml Justicifation of Admission Dx: Justifications for Admission: Justification of Admission Dx: Yes Chronic Renal Failure: Electrolyte Abnormality HONG ROGER MD May 10, 2020 08:43
[2020-05-10 10:25] VITALS: BP 134/79
[2020-05-10] MEDS ORDERED: CALC-56 PO (11:42)
--- NOTE | 2020-05-10 11:43 | DISCH ---
DISCHARGE INSTRUCTIONS Condition on Discharge Condition on Discharge: Stable Activity After Discharge Activity Instructions for Disc: No restrictions, Activity as tolerated Bathing Instructions: Shower-keep dressing dry, No Tub Bath until see Driving Instructions after Dis: Do not drive Weight Bearing Status after Di: No restrictions, As tolerated Diet after Discharge Diet after Discharge: Renal Dialysis Diet Texture: Regular Liquid Texture: Thin Liquid Swallowing Supervision: None needed Wound Incision Care Wound/Incision Care: No wound care needed Checks after Discharge Checks after discharge: Check blood press - daily, Check blood sugar, ac/hs Contacting the DRCaitie after DC Call your doctor for: Concerns you may have Follow-Up Follow up with: Nephrology to resume HD sessions Follow Up With: Surgery for postoperative wound check Treatment/Equipment after DC Adaptive Equipment Issued: None ROSEMARY RIVERA MD May 10, 2020 11:43
--- NOTE | 2020-05-10 11:44 | PDOC ---
Renal-Progress Notes Subjective Notes Notes FEELING BETTER History of Present Illness Hx of present illness STABLE Vitals Vitals Vital Signs Date Time Temp Pulse Resp B/P (MAP) Pulse Ox O2 Delivery O2 Flow Rate FiO2 05/10/20 10:25 97.8 101 18 134/79 (97) 96 97.8 05/10/20 09:43 Room Air 05/09/20 18:20 2.0 Weight Weight [ ] I.O. Intake and Output Intake and Output 05/10/20 07:00 Intake Total 1240 ml Balance 1240 ml Intake Oral 1240 ml Labs Labs Laboratory Tests Test 05/09/20 18:18 05/09/20 21:35 05/10/20 03:00 05/10/20 04:49 Glucose (Fingerstick) 85 mg/dL (70-99) 191 mg/dL (70-99) 51 mg/dL (70-99) White Blood Count 7.1 x10^3/uL (4.0-11.0) Red Blood Count 3.23 x10^6/uL (4.30-5.70) Hemoglobin 10.4 g/dL (13.0-17.5) Hematocrit 30.0 % (39.0-53.0) Mean Corpuscular Volume 93 fL (79-100) Mean Corpuscular Hemoglobin 32 pg (25-35) Mean Corpuscular Hemoglobin Concent 35 g/dL (31-37) Red Cell Distribution Width 13.2 % (11.5-14.5) Platelet Count 238 x10^3/uL (140-400) Sodium Level 134 mmol/L (136-145) Potassium Level 5.2 mmol/L (3.5-5.1) Chloride Level 97 mmol/L (98-107) Carbon Dioxide Level 30 mmol/L (21-32) Anion Gap 7 (6-14) Blood Urea Nitrogen 27 mg/dL (8-26) Creatinine 8.0 mg/dL (0.7-1.3) Estimated GFR (Cockcroft-Gault) 9.1 Glucose Level 59 mg/dL (70-99) Calcium Level 7.8 mg/dL (8.5-10.1) Phosphorus Level 3.5 mg/dL (2.6-4.7) Magnesium Level 2.1 mg/dL (1.8-2.4) Test 05/10/20 05:21 05/10/20 07:13 05/10/20 11:08 Glucose (Fingerstick) 108 mg/dL (70-99) 130 mg/dL (70-99) 72 mg/dL (70-99) Review of Systems Constitutional: yes: alert, oriented Ears/Nose/Throat: Yes: no symptom reported Eyes: Yes: no symptom reported Pulmonary: Yes no symptom reported Cardiovascular: Yes no symptom reported Gastrointestional: Yes: no symptom reported Genitourinary: Yes: no symptom reported Musculoskeletal: Yes: no symptom reported Skin: Yes no symptom reported Psychiatric/Neurological: Yes: no symptom reported Endocrine: Yes: no symptom reported Physical Exam General Appearance: no apparent distress Skin: warm Respiratory: bilateral CTA Heart: S1S2 Abdomen: soft, bowel sounds present Genitourinary: bladder flat Extremities: pulses present Neurology: alert Musculoskeletal: Other Assessment Assessment IMP ESRD S/P SUBTOTAL PARATHYROIDECTOMY HYPOCALCEMIA-HUNGRY BONES ANEMIA DM II HTN PLAN HD TOMORROW UF TOLERATED SUPPLEMENT CALCIUM PT NEEDS TO CONTINUE HIS PO CA SUPPLEMENTS OK TO D/C ARIANNE UMANA MD May 10, 2020 11:44
--- NOTE | 2020-05-10 12:08 | NUR ---
SS following up with discharge planning. SS reviewed pt chart and discussed with pt RN. Discharge order on the chart for home with self care. SS notified and faxed clinical to [facility], ; fax [phone]. Pt's RN notified.
--- NOTE | 2020-05-10 14:25 | NUR ---
Discharge Note: [facility] Discharge instructions and discharge home medications reviewed with Patient and a copy given. All questions have been answered and understanding verbalized. The following instructions and handouts were given: s/p parathyroidectomy education, medication list, follow up instructions Discontinued lines and drains: peripherpahl Iv discontinued, dressing, clean dry and intact. Patient discharged to home with spouse via ambulation
--- NOTE | 2020-05-10 18:09 | PDOC3 ---
[facility]-Discharge Summary Date of Admission: Date of Admission: May 02, 2020 Date of Discharge: Date of Discharge: May 10, 2020 Admission Diagnosis: Admitting Diagnosis: Secondary hyperparathyroidism - s/p left inferior/superior, right superior and right inferior sub-total parathyroidectomy and left inferior thyroid nodule resection. Q6hour calcium monitoring. ESRD - was on PD ,switched to HD - MWF. Dr. Parks is his primary cook short order. Consulted for HD management. Getting eval for renal Tx at [facility] DM2 with Blood Glucose very high - will give 25u TID and glargine per home regimen Chronic Diastolic CHF-Stable, On R HTN- continue antihypertensives GERD - will cont PPI HLD - cont statin GALINDO on CPAP - cont inpatient Anemia of chronic renal insufficiency - stable Discharge Diagnosis: Discharge Diagnosis: Secondary hyperparathyroidism - s/p left inferior/superior, right superior and right inferior sub-total parathyroidectomy and left inferior thyroid nodule resection. Q6hour calcium monitoring. ESRD - was on PD ,switched to HD - MWF. Dr. Parks is his primary cook short order. Consulted for HD management. Getting eval for renal Tx at [facility] DM2 with Blood Glucose very high - will give 25u TID and glargine per home regimen Chronic Diastolic CHF-Stable, On R HTN- continue antihypertensives GERD - will cont PPI HLD - cont statin GALINDO on CPAP - cont inpatient Anemia of chronic renal insufficiency - stable Consults: Consults: General surgery Nephrology Procedures: Procedures: Subtotal parathyroidectomy, excision of left thyroid nodule Hospital Course: Hospital Course: 40 yo M w/ PMHx HTN, HLD, GALINDO on CPAP, DM2 on insulin, ESRD on HD (previously on PD), anemia of chronic renal insufficiency, and recent diagnosis of secondary hyperparathyroidism who is admitted today for post-operative management and calcium monitoring after symptomatic hypeparathyroidism with a left inferior/superior, right superior and right inferior sub-total parathyroidectomy and left inferior thyroid nodule resection. Glucose 408 and has as sore throat post-operatively. His is bedside. He is in good spirits, talking about going fishing with his 4 boys. VS stable. Seen in PACU. Patient was seen by medicine for consultation for his postoperative management. Patient's sugars were well controlled throughout postoperatively. Patient has calcium was stable postoperatively and was co-managed with nephrology. Patient tolerated all his hemodialysis sessions well. Patient was feeling well on day of discharge with no physical exam signs of hypocalcemia. The rest of the hospital course was uneventful Physical exam: General: Alert, Oriented X3, Cooperative Neck: Surgical incision is clear dry and intact Heart: Regular rate Lungs: Clear Abdomen: Normal bowel sounds, No tenderness Extremities: No cyanosis Skin: No breakdown Disposition: Disposition/Orders: D/C to Home Activity: Activity: Resume previous activity Diet: Diet: Renal Medications: Home Meds Active Scripts Calcium Carbonate/Vitamin D3 (CALCIUM 500 + VIT D 200 CAPLET) 1 Each Tablet, 2 TAB PO TID for hypocalcemia for 30 Days, #180 TAB 0 Refills Prov:ROSEMARY RIVERA MD 05/10/20 Reported Medications Polyethylene Glycol 3350 (MIRALAX) 17 Gm Powd.pack, 1 PACKET PO PRN PRN for CONSTIPATION for 2 Days, PACKET 0 Refills dissolve in water 04/28/20 Atorvastatin Calcium (ATORVASTATIN CALCIUM) 10 Mg Tablet, 10 MG PO HS for FOR CHOLESTEROL, #30 TAB 0 Refills 04/28/20 [auryxia] No Conflict Check, 630 MG PO TIDAC for control serumphosphorus/anemi a 04/28/20 Pantoprazole Sodium (PROTONIX) 20 Mg Tablet.dr, 2 TAB PO DAILY for GERD, #30 TAB 11/30/18 Furosemide (FUROSEMIDE) 80 Mg Tablet, 1 TAB PO TID for end stage kidney disease, #180 TAB 3 Refills 12/21/17 Cholecalciferol (Vitamin D3) (VITAMIN D) 5,000 Unit Tablet, 5000 UNIT PO DAILY, TAB 12/21/17 Vit B Cmplx 3/Fa/Vit C/Biotin (BERTHA-DELMAR RX TABLET) 1 Each Tablet, 1 EACH PO DAILY, TAB 12/21/17 Cinacalcet Hcl (SENSIPAR) 60 Mg Tablet, 90 MG PO DAILY for secondary hyperparathyroidism, TAB 12/21/17 Insulin Aspart (NOVOLOG) 100 Unit/1 Ml Vial, 12 UNIT SQ TIDAC for diabetes, VIAL sliding scale 04/15/17 Insulin Glargine,Hum.rec.anlog (LANTUS SOLOSTAR) 100 Unit/1 Ml Insuln.pen, 20 UNIT SQ HS for hyperglycemia, SYR 04/15/17 Scheduled Atorvastatin Calcium (Atorvastatin Calcium), 10 MG PO HS, (Reported) Calcium Carbonate/Vitamin D3 (Calcium 500 + Vit D 200 Caplet), 2 TAB PO TID Cholecalciferol (Vitamin D3) (Vitamin D), 5,000 UNIT PO DAILY, (Reported) Cinacalcet Hcl (Sensipar), 90 MG PO DAILY, (Reported) Furosemide (Furosemide), 1 TAB PO TID, (Reported) Insulin Aspart (Novolog), 12 UNIT SQ TIDAC, (Reported) Insulin Glargine,Hum.rec.anlog (Lantus Solostar), 20 UNIT SQ HS, (Reported) Pantoprazole Sodium (Protonix), 2 TAB PO DAILY, (Reported) Vit B Cmplx 3/Fa/Vit C/Biotin (Bertha-Delmar Rx Tablet), 1 EACH PO DAILY, (Reported) [auryxia], 630 MG PO TIDAC, (Reported) Scheduled PRN Polyethylene Glycol 3350 (Miralax), 1 PACKET PO PRN PRN for CONSTIPATION, (Reported) Total Time: Total Time: Total time spent was 35 minutes in preparing scripts, discharge planning with SWI and RN and preparing this discharge summary Justicifation of Admission Dx: Justifications for Admission: Justification of Admission Dx: Yes Chronic Renal Failure: Electrolyte Abnormality ROSEMARY RIVERA MD May 10, 2020 18:09
== END 2020-05-10 14:20 | disposition home or self-care (01) | DRG 625 ==
LOC: SURG 06:19 → 2 SOUTH 17:09
PROVIDERS: ADMIT Surgery; ATTEND Surgery
PROC: 0GBL0ZZ Excision of Right Superior Parathyroid Gland, Open Approach (ICD-10-PCS; 2020-05-02)
PROC: 0GBM0ZZ Excision of Left Superior Parathyroid Gland, Open Approach (ICD-10-PCS; 2020-05-02)
PROC: 0GBN0ZZ Excision of Right Inferior Parathyroid Gland, Open Approach (ICD-10-PCS; 2020-05-02)
PROC: 0GBG0ZZ Excision of Left Thyroid Gland Lobe, Open Approach (ICD-10-PCS; 2020-05-02)
PROC: 0GBP0ZZ Excision of Left Inferior Parathyroid Gland, Open Approach (ICD-10-PCS; principal; 2020-05-02 08:30)
PROC: 5A1D70Z Performance of Urinary Filtration, Intermittent, Less than 6 Hours Per Day (ICD-10-PCS; 2020-05-03)
PROC: 5A1D70Z Performance of Urinary Filtration, Intermittent, Less than 6 Hours Per Day (ICD-10-PCS; 2020-05-05)
PROC: 5A1D70Z Performance of Urinary Filtration, Intermittent, Less than 6 Hours Per Day (ICD-10-PCS; 2020-05-07)
PROC: 5A1D70Z Performance of Urinary Filtration, Intermittent, Less than 6 Hours Per Day (ICD-10-PCS; 2020-05-09)
DX: E04.1 Nontoxic single thyroid nodule (principal); N18.6 End stage renal disease; I50.32 Chronic diastolic (congestive) heart failure; I13.2 Hypertensive heart and chronic kidney disease with heart failure and with stage 5 chronic kidney disease, or end stage renal disease; E21.1 Secondary hyperparathyroidism, not elsewhere classified; E78.5 Hyperlipidemia, unspecified; G47.33 Obstructive sleep apnea (adult) (pediatric); E11.22 Type 2 diabetes mellitus with diabetic chronic kidney disease; G56.00 Carpal tunnel syndrome, unspecified upper limb; K21.9 Gastro-esophageal reflux disease without esophagitis; D63.1 Anemia in chronic kidney disease; Z79.4 Long term (current) use of insulin; Z99.2 Dependence on renal dialysis; Z82.49 Family history of ischemic heart disease and other diseases of the circulatory system
CPT/HCPCS: 36415; 76536; 80048; 80053; 80069; 82310; 82962; 83735; 84100; 85025; 85027; 88305; 88307; 88331; A7015; J0330; J0360; J0610; J0690; J1100; J1170; J1815; J2250; J2370; J2405; J2704; J3010; J3490; J7030; J7060; G0378

== ENCOUNTER 2020-06-19 15:24 | Inpatient (IN) | payer MEDICARE, OTHER ==
[~2020-06-19] VITALS: Ht 177.8 cm; Wt 98.0 kg
[~2020-06-19 15:24] MED LIST changes: +CALC-56 PO
[2020-06-19] MEDS ORDERED: IV NORMAL SALINE 1000ML BAG 1,000 ML IV ONE (16:30)
[2020-06-19 17:04] LABS: BASO # 0.1 x10^3/uL (0.0-0.2); BASO % 1 % (0-3); EOS # 0.3 x10^3/uL (0.0-0.7); EOS % 3 % (0-3); HEMATOCRIT 33.6 % (39.0-53.0); HEMOGLOBIN 11.3 g/dL (13.0-17.5); LYMPH # 1.3 x10^3/uL (1.0-4.8); LYMPH % 14 % (24-48); MEAN CORPUSCULAR HEMOGLOBIN 32 pg (25-35); MEAN CORPUSCULAR HGB CONC 34 g/dL (31-37); MEAN CORPUSCULAR VOLUME 97 fL (79-100); MONO # 0.9 x10^3/uL (0.0-1.1); MONO % 10 % (0-9); NEUT # 6.4 x10^3/uL (1.8-7.7); NEUT % 72 % (31-73); PLATELET COUNT 312 x10^3/uL (140-400); RED BLOOD COUNT 3.48 x10^6/uL (4.30-5.70); RED CELL DISTRIBUTION WIDTH 15.4 % (11.5-14.5); WHITE BLOOD COUNT 8.9 x10^3/uL (4.0-11.0)
--- NOTE | 2020-06-19 17:29 | PHYS DOC ---
Past Medical History Past Medical History: Anemia, Diabetes-Type II, Hypertension, Renal Failure Additional Past Medical Histor: HEMODIALYSIS SINCE 2013; Peritoneal dialysis Past Surgical History: Other Additional Past Surgical Histo: CARPAL TUNNEL, PARATHYROID REMOVAL D/T POSS. ADENOMA Smoking Status: Never Smoker Alcohol Use: None Drug Use: None General Adult EDM: Chief Complaint: FACE PROBLEM HPI: HPI: Mr. Munguia is a 40-year-old -[place] male with a chief complaint of a facial twitch and tingling. Patient has a past medical history of a parathyroid adenoma and a subsequent parathyroid removal. He also has had type 1 diabetes and is on dialysis for chronic kidney disease secondary to type 1 diabetes. Reports HD on /. Reports he was told at HD on Saturday that his calcium was low. Reports vacuum metalizer operator called in prescription for him to take for his low calcium but he was unable to fill the medication until today. There are no alleviating or aggravating factors for this numbness and tingling. Patient had his last bowel movement at 11 AM this morning. He describes no psychiatric disturbances or mental slowing. He does not have any palpitations. Review of Systems: Review of Systems: Constitutional: Denies fever or chills Eyes: Denies redness or eye pain HENT: Denies nasal congestion or sore throat Respiratory: Denies cough or shortness of breath Cardiovascular: Denies chest pain or palpitations GI: Denies abdominal pain, nausea, or vomiting : Denies dysuria or hematuria Musculoskeletal: Denies back pain or joint pain Integument: Denies rash or skin lesions Neurologic: Denies headache, focal weakness; reports facial parasthesias Complete systems were reviewed and found to be within normal limits, except as documented in this note. Current Medications: Current Medications Medications (Trade) Dose Ordered Sig/Afua Start Time Stop Time Status Last Admin Dose Admin Sodium Chloride 1,000 ml @ 1,000 mls/hr 1X ONCE 06/19/20 16:30 06/19/20 16:44 DC Meds: Calcitriol (patient is failed to burr picker this medication and has not taken it until earlier today.) Allergies: Allergies: Allergies Coded Allergies Type Severity Reaction Last Updated Verified apple Allergy Intermediate 05/03/20 Yes Penicillins Adverse Reaction Mild Nausea 05/02/20 Yes Physical Exam: PE: Constitutional: Well developed, well nourished, no acute distress, non-toxic appearance HENT: Normocephalic, atraumatic negative chvostek sign. Cranial nerves II through XII gross intact bilaterally. Eyes: PERRL, EOMI, conjunctiva normal, no discharge Neck: Normal range of motion, no tenderness, supple Lungs & Thorax: No respiratory distress, equal chest rise and fall Heart: 1+/6 diastolic murmur best heard at the cardiac apex. Regular rate and rhythm, S1 and S2 normal, S3 and S4 on her. Abdomen: Soft, no tenderness. Bowel sounds present all 4 quadrants Skin: Warm, dry, no erythema, no rash Extremities: No tenderness, ROM intact, no edema. Numbness and tingling . Neurologic: Alert and oriented X 3, normal motor function, normal sensory function, no focal deficits noted 1+/4 DTRs in all 4 extremities Psychologic: Affect normal, judgment normal, mentally slowed. Current Patient Data: Vital Signs: Vital Signs Date Time Temp Pulse Resp B/P (MAP) Pulse Ox O2 Delivery O2 Flow Rate FiO2 06/19/20 16:22 98.2 85 20 106/75 (85) 97 Room Air 98.2 EKG: [id number] Heart rate: ~80 bpm NC: 184 ms QRS: 78 ms QT QT: 390 ms QTc: 530 ms Impression: Normal sinus rhythm with hyperacute T waves particularly in leads I, II, and V1 through V4. Mildly prolonged QTC. Radiology/Procedures: Radiology/Procedures: [] Course & Med Decision Making: Course & Med Decision Making 40-year-old -[place]vian male with facial tingling and numbness with pmh/psh of parathyroidectomy and ESRD on HD //. Hx that patient had low calcium on Saturday and recently started Ca replacement today. EKG shows peaked T waves concerning for hyperkalemia. Labs obtained and posted to chart. Significant hyperkalemia and hypocalcemia noted. Calcium gluconate provided with IV insulin and dextrose. Discussed case with Dr. Barnes (nephrology) with plans for HD tonight. Dr. Barnes requests aggressive replacement of calcium including additonal amps of calcium gluconate x 2, calcium acetate TID w/meals, and calcitrol. Patient requiring admission for further evaluation and treatment. Discussed with Dr. Lindo (hospitalist) who is in agreement with admission. Discussed findings and plan with patient, who acknowledges understanding and agreement. Dragon Disclaimer: Dragon Disclaimer: This electronic medical record was generated, in whole or in part, using a voice recognition dictation system. Departure Departure Impression: Primary Impression: Hyperkalemia Additional Impressions: Hypocalcemia ESRD (end stage renal disease) on dialysis Disposition: ADMITTED INPATIENT Admitting Physician: MARILIA Yeh) Condition: GUARDED Referrals: GINO BLANCO MD (PCP) Justicifation of Admission Dx: Justifications for Admission: Justification of Admission Dx: Yes Chronic Renal Failure: Electrolyte Abnormality Comments: Hyperkalemia, Hypocalcemia Critical Care Time Critical care time was 30 minutes which includes time at bedside, spent in discussion of patient's care with specialists and/or family members, with interpretation of laboratory and/or radiological studies and is exclusive of procedures. ORQUIDEA TENORIO DO Jun 19, 2020 17:29
[2020-06-19 17:35] LABS: ALBUMIN 3.5 g/dL (3.4-5.0); ALBUMIN/GLOBULIN RATIO 0.9 (1.0-1.7); CREATININE 14.1 mg/dL (0.7-1.3); GFR 4.7; MAGNESIUM 2.3 mg/dL (1.8-2.4); TOTAL BILIRUBIN 0.3 mg/dL (0.2-1.0); TOTAL PROTEIN 7.2 g/dL (6.4-8.2)
[2020-06-19 17:38] LABS: CALCIUM 5.7 mg/dL (8.5-10.1); POTASSIUM 7.2 mmol/L (3.5-5.1)
[2020-06-19] MEDS ORDERED: DEXTROSE 50% 25 GM / 50ML DISP.SYRIN. IV PRN (18:00)
[2020-06-19] MEDS ORDERED: DEXTROSE 50% 25 GM / 50ML DISP.SYRIN. IV ONE (18:15)
[2020-06-19] MEDS ORDERED: CALCIUM GLUCONATE 1,000 MG/10 ML VIAL. IVP ONE ×3 (18:15→18:45)
[2020-06-19] MEDS ORDERED: INSULIN REGULAR 100 UNIT/ML 3ML VIAL. IV ONE (18:15)
[2020-06-19] MEDS ORDERED: CALCITRIOL 0.25 MCG CAPSULE. PO ONE (18:45)
[2020-06-19] MEDS ORDERED: CALCIUM ACETATE 667 MG CAPSULE PO ONE (18:45)
[2020-06-19 20:50] VITALS: BP 138/78
--- NOTE | 2020-06-19 20:50 | NUR ---
The patient, WILFRED STEVENS, 40 y/o, M admitted by JAMSHID MEDEROS MD, was given written information regarding hospital policies, unit procedures and contact persons. patient arrived via ed bed, assisted by ED staff member. Valuables were checked and noted. Patient walked to in patient bed from ED bed. This RN took the patient's vital signs and place a personnel monitor on the patient. The patient was then transported up to dialysis. Patient states no needs at this time. This RN will continue to monitor the patient at this time.
[2020-06-19] MEDS ORDERED: IV NORMAL SALINE 1000ML BAG 1,000 ML IV PRN ×2 (20:53)
[2020-06-19] MEDS ORDERED: DIALYSIS PATIENT. MC PRN (21:00)
[2020-06-19] MEDS ORDERED: ALBUMIN HUMAN 25% 200 ML IV PRN (21:00)
[2020-06-19] MEDS ORDERED: ACETAMINOPHEN 500 MG TABLET PO PRN (21:00)
[2020-06-19] MEDS ORDERED: diphenhydrAMINE 50 MG/ML VIAL IV PRN ×2 (21:00)
[2020-06-20 02:34] VITALS: BP 123/72
[2020-06-20 07:00] VITALS: BP 98/71
[2020-06-20] MEDS: CALCIUM ACETATE 667 MG CAPSULE PO SCH ×2 (08:00→12:47)
[2020-06-20] MEDS: INSULIN LISPRO 300 UNITS/3 ML VIAL. SQ SCH ×2 (08:00→12:54)
[2020-06-20] MEDS ORDERED: IV NORMAL SALINE 1000ML BAG 1,000 ML IV PRN ×2 (08:12)
[2020-06-20] MEDS ORDERED: DIALYSIS PATIENT. MC PRN (08:15)
[2020-06-20] MEDS ORDERED: diphenhydrAMINE 50 MG/ML VIAL IV PRN ×2 (08:15)
[2020-06-20] MEDS ORDERED: ACETAMINOPHEN 500 MG TABLET PO PRN (08:15)
[2020-06-20] MEDS ORDERED: 0.9 % SODIUM CHLORIDE 10 ML DISP.SYRIN. IV PRN ×2 (08:15)
[2020-06-20] MEDS ORDERED: ALBUMIN HUMAN 25% 200 ML IV PRN (08:15)
[2020-06-20] MEDS: CALCITRIOL 0.25 MCG CAPSULE. PO SCH ×2 (09:00→12:47)
[2020-06-20 09:01] LABS: BASO % 1 % (0-3); EOS # 0.2 x10^3/uL (0.0-0.7); EOS % 3 % (0-3); HEMATOCRIT 37.7 % (39.0-53.0); HEMOGLOBIN 12.6 g/dL (13.0-17.5); LYMPH % 14 % (24-48); MEAN CORPUSCULAR HEMOGLOBIN 32 pg (25-35); MEAN CORPUSCULAR HGB CONC 33 g/dL (31-37); MEAN CORPUSCULAR VOLUME 96 fL (79-100); MONO # 0.6 x10^3/uL (0.0-1.1); MONO % 8 % (0-9); NEUT # 5.7 x10^3/uL (1.8-7.7); NEUT % 75 % (31-73); PLATELET COUNT 315 x10^3/uL (140-400); RED BLOOD COUNT 3.92 x10^6/uL (4.30-5.70); RED CELL DISTRIBUTION WIDTH 15.3 % (11.5-14.5); WHITE BLOOD COUNT 7.6 x10^3/uL (4.0-11.0)
[2020-06-20 09:23] LABS: CALCIUM 7.6 mg/dL (8.5-10.1); CREATININE 9.7 mg/dL (0.7-1.3); GFR 7.3; POTASSIUM 5.7 mmol/L (3.5-5.1)
--- NOTE | 2020-06-20 12:49 | PDOC1 ---
History and Physical Date of Admission Date of Admission 06/20/2020 Identification/Chief Complaint Chief Complaint i felt like my calcium was low Source Source: Chart review, Patient History of Present Illness History of Present Illness Patient is a 40-year-old male with multiple medical comorbidities including end- stage renal disease on hemodialysis since 2012. Patient also has essential hypertension diabetes type 2 but he comes today complaining of symptoms of tingling and numbness which he knows it is due to low calcium. Apparently this was reported to him on Saturday on his last hemodialysis treatment he was given a prescription for supplements nevertheless these were not filled and hence the reason the patient was admitted to the hospital in order to correct his electrolyte disturbances. Hyperkalemia was also evident upon admission there were hyperacute T waves reported by ER physician on EKG this was treated in the emergency department with IV insulin calcium gluconate and we were asked to admit the patient for further treatment. Patient denied any headache no blurred vision no chest pain no palpitations no shortness of breath no abdominal pain nausea vomiting or diarrhea was reported. He was admitted for nephrology consultation Past Medical History Cardiovascular: HTN, Hyperlipidemia Pulmonary: Other CENTRAL NERVOUS SYSTEM: Carpal Tunnel Syndrome, Periperal neuropathy GI: No pertinent hx Heme/Onc: Anemia NOS Hepatobiliary: No pertinent hx Psych: No pertinent hx Rheumatologic: No pertinent hx Infectious disease: No pertinent hx Renal/: Chronic renal failure Endocrine: Diabetes, Hyperparathyroidism Past Surgical History Past Surgical History: Hernia Repair, Other Family History Family History: Coronary Artery Disease, Other Social History ALCOHOL: none Drugs: None Current Problem List Problem List Problems Medical Problems: (1) Hyperkalemia Status: Acute Current Medications Current Medications Current Medications Medications (Trade) Dose Ordered Sig/Afua Start Time Stop Time Status Last Admin Dose Admin Acetaminophen (Tylenol) 500 mg 1X PRN PRN 06/20/20 08:15 06/21/20 08:14 Albumin Human 200 ml @ 200 mls/hr 1X PRN PRN 06/20/20 08:15 06/20/20 14:14 Calcitriol (Rocaltrol) 0.25 mcg DAILY 06/20/20 09:00 Calcium Acetate (Phoslo) 1,334 mg 1X ONCE 06/19/20 18:45 06/19/20 18:46 DC 06/19/20 18:42 1,334 MG Calcium Gluconate (Calcium Gluconate) 1,000 mg 1X ONCE 06/19/20 18:45 06/19/20 18:46 DC 06/19/20 20:11 1,000 MG Dextrose (Dextrose 50%-Water Syringe) 12.5 gm PRN Q15MIN PRN 06/19/20 18:00 Diphenhydramine HCl (Benadryl) 25 mg 1X PRN PRN 06/20/20 08:15 06/21/20 08:14 Info (PHARMACY MONITORING -- do not chart) 1 each PRN DAILY PRN 06/20/20 08:15 Insulin Human Lispro (HumaLOG) 0-5 UNITS TIDWMEALS 06/20/20 08:00 Insulin Human Regular (HumuLIN R VIAL) 10 unit 1X ONCE 06/19/20 18:15 06/19/20 18:16 DC 06/19/20 20:13 10 UNIT Sodium Chloride 1,000 ml @ 400 mls/hr Q2H30M PRN 06/20/20 08:12 06/20/20 20:11 Sodium Chloride (Normal Saline Flush) 10 ml 1X PRN PRN 06/20/20 08:15 06/21/20 08:14 Allergies Allergies Allergies Coded Allergies Type Severity Reaction Last Updated Verified apple Allergy Intermediate 05/03/20 Yes peanut Allergy Unknown 06/19/20 Yes Penicillins Adverse Reaction Mild Nausea 05/02/20 Yes ROS Review of System CONSTITUTIONAL: No fever or chills EYES: No recent changes SKIN: No rash or itching CARDIOVASCULAR: No chest pain, syncope, palpitations, or edema RESPIRATORY: No SOB or cough GASTROINTESTINAL: No nausea, vomiting or abdominal pain NEUROLOGICAL: No headaches or weakness ENDOCRINE: No cold or heat intolerance GENITOURINARY: No urgency or frequency of urination MUSCULOSKELETAL: No back pain or joint pain LYMPHATICS: No enlarged lymph nodes PSYCHIATRIC: No anxiety or depression Physical Exam Physical Exam GEN.: No apparent distress. Alert and oriented. HEENT: Head is normocephalic, atraumatic NECK: Supple. LUNGS: Clear to auscultation. HEART: RRR, S1, S2 present. Peripheral pulses intact ABDOMEN: Soft, nontender. Positive bowel sounds. EXTREMITIES: Without any cyanosis. NEUROLOGIC: Normal speech, normal tone PSYCHIATRIC: Normal affect, normal mood. SKIN: No ulcerations Vitals Vitals Vital Signs Date Time Temp Pulse Resp B/P (MAP) Pulse Ox O2 Delivery O2 Flow Rate FiO2 06/20/20 08:00 Room Air 06/20/20 07:00 97.9 80 16 98/71 (80) 96 97.9 Labs Labs Laboratory Tests Test 06/19/20 16:55 06/19/20 20:03 06/19/20 21:37 06/20/20 00:24 White Blood Count 8.9 x10^3/uL (4.0-11.0) Red Blood Count 3.48 x10^6/uL (4.30-5.70) Hemoglobin 11.3 g/dL (13.0-17.5) Hematocrit 33.6 % (39.0-53.0) Mean Corpuscular Volume 97 fL (79-100) Mean Corpuscular Hemoglobin 32 pg (25-35) Mean Corpuscular Hemoglobin Concent 34 g/dL (31-37) Red Cell Distribution Width 15.4 % (11.5-14.5) Platelet Count 312 x10^3/uL (140-400) Neutrophils (%) (Auto) 72 % (31-73) Lymphocytes (%) (Auto) 14 % (24-48) Monocytes (%) (Auto) 10 % (0-9) Eosinophils (%) (Auto) 3 % (0-3) Basophils (%) (Auto) 1 % (0-3) Neutrophils # (Auto) 6.4 x10^3/uL (1.8-7.7) Lymphocytes # (Auto) 1.3 x10^3/uL (1.0-4.8) Monocytes # (Auto) 0.9 x10^3/uL (0.0-1.1) Eosinophils # (Auto) 0.3 x10^3/uL (0.0-0.7) Basophils # (Auto) 0.1 x10^3/uL (0.0-0.2) Sodium Level 141 mmol/L (136-145) Potassium Level 7.2 mmol/L (3.5-5.1) Chloride Level 103 mmol/L (98-107) Carbon Dioxide Level 27 mmol/L (21-32) Anion Gap 11 (6-14) Blood Urea Nitrogen 76 mg/dL (8-26) Creatinine 14.1 mg/dL (0.7-1.3) Estimated GFR (Cockcroft-Gault) 4.7 BUN/Creatinine Ratio 5 (6-20) Glucose Level 108 mg/dL (70-99) Calcium Level 5.7 mg/dL (8.5-10.1) Ionized Calcium 0.66 mmol/L (1.13-1.32) Phosphorus Level 3.8 mg/dL (2.6-4.7) Magnesium Level 2.3 mg/dL (1.8-2.4) Total Bilirubin 0.3 mg/dL (0.2-1.0) Aspartate Amino Transf (AST/SGOT) 18 U/L (15-37) Alanine Aminotransferase (ALT/SGPT) 22 U/L (16-63) Alkaline Phosphatase 205 U/L (46-116) Total Protein 7.2 g/dL (6.4-8.2) Albumin 3.5 g/dL (3.4-5.0) Albumin/Globulin Ratio 0.9 (1.0-1.7) Glucose (Fingerstick) 72 mg/dL (70-99) 108 mg/dL (70-99) 143 mg/dL (70-99) Test 06/20/20 02:27 06/20/20 05:27 06/20/20 08:16 06/20/20 08:25 Glucose (Fingerstick) 168 mg/dL (70-99) 302 mg/dL (70-99) 166 mg/dL (70-99) White Blood Count 7.6 x10^3/uL (4.0-11.0) Red Blood Count 3.92 x10^6/uL (4.30-5.70) Hemoglobin 12.6 g/dL (13.0-17.5) Hematocrit 37.7 % (39.0-53.0) Mean Corpuscular Volume 96 fL (79-100) Mean Corpuscular Hemoglobin 32 pg (25-35) Mean Corpuscular Hemoglobin Concent 33 g/dL (31-37) Red Cell Distribution Width 15.3 % (11.5-14.5) Platelet Count 315 x10^3/uL (140-400) Neutrophils (%) (Auto) 75 % (31-73) Lymphocytes (%) (Auto) 14 % (24-48) Monocytes (%) (Auto) 8 % (0-9) Eosinophils (%) (Auto) 3 % (0-3) Basophils (%) (Auto) 1 % (0-3) Neutrophils # (Auto) 5.7 x10^3/uL (1.8-7.7) Lymphocytes # (Auto) 1.0 x10^3/uL (1.0-4.8) Monocytes # (Auto) 0.6 x10^3/uL (0.0-1.1) Eosinophils # (Auto) 0.2 x10^3/uL (0.0-0.7) Basophils # (Auto) 0.0 x10^3/uL (0.0-0.2) Sodium Level 136 mmol/L (136-145) Potassium Level 5.7 mmol/L (3.5-5.1) Chloride Level 96 mmol/L (98-107) Carbon Dioxide Level 28 mmol/L (21-32) Anion Gap 12 (6-14) Blood Urea Nitrogen 40 mg/dL (8-26) Creatinine 9.7 mg/dL (0.7-1.3) Estimated GFR (Cockcroft-Gault) 7.3 Glucose Level 162 mg/dL (70-99) Calcium Level 7.6 mg/dL (8.5-10.1) Ionized Calcium 0.89 mmol/L (1.13-1.32) Test 06/20/20 12:33 Glucose (Fingerstick) 174 mg/dL (70-99) Laboratory Tests Test 06/19/20 16:55 06/19/20 20:03 06/19/20 21:37 06/20/20 00:24 White Blood Count 8.9 x10^3/uL (4.0-11.0) Red Blood Count 3.48 x10^6/uL (4.30-5.70) Hemoglobin 11.3 g/dL (13.0-17.5) Hematocrit 33.6 % (39.0-53.0) Mean Corpuscular Volume 97 fL (79-100) Mean Corpuscular Hemoglobin 32 pg (25-35) Mean Corpuscular Hemoglobin Concent 34 g/dL (31-37) Red Cell Distribution Width 15.4 % (11.5-14.5) Platelet Count 312 x10^3/uL (140-400) Neutrophils (%) (Auto) 72 % (31-73) Lymphocytes (%) (Auto) 14 % (24-48) Monocytes (%) (Auto) 10 % (0-9) Eosinophils (%) (Auto) 3 % (0-3) Basophils (%) (Auto) 1 % (0-3) Neutrophils # (Auto) 6.4 x10^3/uL (1.8-7.7) Lymphocytes # (Auto) 1.3 x10^3/uL (1.0-4.8) Monocytes # (Auto) 0.9 x10^3/uL (0.0-1.1) Eosinophils # (Auto) 0.3 x10^3/uL (0.0-0.7) Basophils # (Auto) 0.1 x10^3/uL (0.0-0.2) Sodium Level 141 mmol/L (136-145) Potassium Level 7.2 mmol/L (3.5-5.1) Chloride Level 103 mmol/L (98-107) Carbon Dioxide Level 27 mmol/L (21-32) Anion Gap 11 (6-14) Blood Urea Nitrogen 76 mg/dL (8-26) Creatinine 14.1 mg/dL (0.7-1.3) Estimated GFR (Cockcroft-Gault) 4.7 BUN/Creatinine Ratio 5 (6-20) Glucose Level 108 mg/dL (70-99) Calcium Level 5.7 mg/dL (8.5-10.1) Ionized Calcium 0.66 mmol/L (1.13-1.32) Phosphorus Level 3.8 mg/dL (2.6-4.7) Magnesium Level 2.3 mg/dL (1.8-2.4) Total Bilirubin 0.3 mg/dL (0.2-1.0) Aspartate Amino Transf (AST/SGOT) 18 U/L (15-37) Alanine Aminotransferase (ALT/SGPT) 22 U/L (16-63) Alkaline Phosphatase 205 U/L (46-116) Total Protein 7.2 g/dL (6.4-8.2) Albumin 3.5 g/dL (3.4-5.0) Albumin/Globulin Ratio 0.9 (1.0-1.7) Glucose (Fingerstick) 72 mg/dL (70-99) 108 mg/dL (70-99) 143 mg/dL (70-99) Test 06/20/20 02:27 06/20/20 05:27 06/20/20 08:16 06/20/20 08:25 Glucose (Fingerstick) 168 mg/dL (70-99) 302 mg/dL (70-99) 166 mg/dL (70-99) White Blood Count 7.6 x10^3/uL (4.0-11.0) Red Blood Count 3.92 x10^6/uL (4.30-5.70) Hemoglobin 12.6 g/dL (13.0-17.5) Hematocrit 37.7 % (39.0-53.0) Mean Corpuscular Volume 96 fL (79-100) Mean Corpuscular Hemoglobin 32 pg (25-35) Mean Corpuscular Hemoglobin Concent 33 g/dL (31-37) Red Cell Distribution Width 15.3 % (11.5-14.5) Platelet Count 315 x10^3/uL (140-400) Neutrophils (%) (Auto) 75 % (31-73) Lymphocytes (%) (Auto) 14 % (24-48) Monocytes (%) (Auto) 8 % (0-9) Eosinophils (%) (Auto) 3 % (0-3) Basophils (%) (Auto) 1 % (0-3) Neutrophils # (Auto) 5.7 x10^3/uL (1.8-7.7) Lymphocytes # (Auto) 1.0 x10^3/uL (1.0-4.8) Monocytes # (Auto) 0.6 x10^3/uL (0.0-1.1) Eosinophils # (Auto) 0.2 x10^3/uL (0.0-0.7) Basophils # (Auto) 0.0 x10^3/uL (0.0-0.2) Sodium Level 136 mmol/L (136-145) Potassium Level 5.7 mmol/L (3.5-5.1) Chloride Level 96 mmol/L (98-107) Carbon Dioxide Level 28 mmol/L (21-32) Anion Gap 12 (6-14) Blood Urea Nitrogen 40 mg/dL (8-26) Creatinine 9.7 mg/dL (0.7-1.3) Estimated GFR (Cockcroft-Gault) 7.3 Glucose Level 162 mg/dL (70-99) Calcium Level 7.6 mg/dL (8.5-10.1) Ionized Calcium 0.89 mmol/L (1.13-1.32) Test 06/20/20 12:33 Glucose (Fingerstick) 174 mg/dL (70-99) VTE Prophylaxis Ordered VTE Prophylaxis Devices: No VTE Pharmacological Prophylaxi: Yes Assessment/Plan Assessment/Plan Hyperkalemia Hypocalcemia End-stage renal disease on hemodialysis Essential hypertension Beatties mellitus type II insulin requiring History of parathyroid removal secondary to adenoma Plan Follow recommendations from nephrology Replace calcium as per category consultant No further intervention needed patient may be discharged later in the day DVT prophylaxis Heparin Justifications for Admission Other Justification ACOSTA OSPINA MD Jun 20, 2020 12:49
--- NOTE | 2020-06-20 14:04 | PDOC3 ---
Discharge Summary Visit Information Date of Admission: Jun 20, 2020 Date of Discharge: Jun 20, 2020 Admitting Diagnosis Comment: Hypocalcemia Hyperkalemia Final Diagnosis Problems Medical Problems: (1) Hyperkalemia Status: Acute Brief Hospital Course Allergies Allergies Coded Allergies Type Severity Reaction Last Updated Verified apple Allergy Intermediate 05/03/20 Yes peanut Allergy Unknown 06/19/20 Yes Penicillins Adverse Reaction Mild Nausea 05/02/20 Yes Vital Signs Vital Signs Date Time Temp Pulse Resp B/P (MAP) Pulse Ox O2 Delivery O2 Flow Rate FiO2 06/20/20 08:00 Room Air 06/20/20 07:00 97.9 80 16 98/71 (80) 96 97.9 Lab Results Laboratory Tests Test 06/19/20 16:55 06/19/20 20:03 06/19/20 21:37 06/20/20 00:24 White Blood Count 8.9 x10^3/uL (4.0-11.0) Red Blood Count 3.48 x10^6/uL (4.30-5.70) Hemoglobin 11.3 g/dL (13.0-17.5) Hematocrit 33.6 % (39.0-53.0) Mean Corpuscular Volume 97 fL (79-100) Mean Corpuscular Hemoglobin 32 pg (25-35) Mean Corpuscular Hemoglobin Concent 34 g/dL (31-37) Red Cell Distribution Width 15.4 % (11.5-14.5) Platelet Count 312 x10^3/uL (140-400) Neutrophils (%) (Auto) 72 % (31-73) Lymphocytes (%) (Auto) 14 % (24-48) Monocytes (%) (Auto) 10 % (0-9) Eosinophils (%) (Auto) 3 % (0-3) Basophils (%) (Auto) 1 % (0-3) Neutrophils # (Auto) 6.4 x10^3/uL (1.8-7.7) Lymphocytes # (Auto) 1.3 x10^3/uL (1.0-4.8) Monocytes # (Auto) 0.9 x10^3/uL (0.0-1.1) Eosinophils # (Auto) 0.3 x10^3/uL (0.0-0.7) Basophils # (Auto) 0.1 x10^3/uL (0.0-0.2) Sodium Level 141 mmol/L (136-145) Potassium Level 7.2 mmol/L (3.5-5.1) Chloride Level 103 mmol/L (98-107) Carbon Dioxide Level 27 mmol/L (21-32) Anion Gap 11 (6-14) Blood Urea Nitrogen 76 mg/dL (8-26) Creatinine 14.1 mg/dL (0.7-1.3) Estimated GFR (Cockcroft-Gault) 4.7 BUN/Creatinine Ratio 5 (6-20) Glucose Level 108 mg/dL (70-99) Calcium Level 5.7 mg/dL (8.5-10.1) Ionized Calcium 0.66 mmol/L (1.13-1.32) Phosphorus Level 3.8 mg/dL (2.6-4.7) Magnesium Level 2.3 mg/dL (1.8-2.4) Total Bilirubin 0.3 mg/dL (0.2-1.0) Aspartate Amino Transf (AST/SGOT) 18 U/L (15-37) Alanine Aminotransferase (ALT/SGPT) 22 U/L (16-63) Alkaline Phosphatase 205 U/L (46-116) Total Protein 7.2 g/dL (6.4-8.2) Albumin 3.5 g/dL (3.4-5.0) Albumin/Globulin Ratio 0.9 (1.0-1.7) Glucose (Fingerstick) 72 mg/dL (70-99) 108 mg/dL (70-99) 143 mg/dL (70-99) Test 06/20/20 02:27 06/20/20 05:27 06/20/20 08:16 06/20/20 08:25 Glucose (Fingerstick) 168 mg/dL (70-99) 302 mg/dL (70-99) 166 mg/dL (70-99) White Blood Count 7.6 x10^3/uL (4.0-11.0) Red Blood Count 3.92 x10^6/uL (4.30-5.70) Hemoglobin 12.6 g/dL (13.0-17.5) Hematocrit 37.7 % (39.0-53.0) Mean Corpuscular Volume 96 fL (79-100) Mean Corpuscular Hemoglobin 32 pg (25-35) Mean Corpuscular Hemoglobin Concent 33 g/dL (31-37) Red Cell Distribution Width 15.3 % (11.5-14.5) Platelet Count 315 x10^3/uL (140-400) Neutrophils (%) (Auto) 75 % (31-73) Lymphocytes (%) (Auto) 14 % (24-48) Monocytes (%) (Auto) 8 % (0-9) Eosinophils (%) (Auto) 3 % (0-3) Basophils (%) (Auto) 1 % (0-3) Neutrophils # (Auto) 5.7 x10^3/uL (1.8-7.7) Lymphocytes # (Auto) 1.0 x10^3/uL (1.0-4.8) Monocytes # (Auto) 0.6 x10^3/uL (0.0-1.1) Eosinophils # (Auto) 0.2 x10^3/uL (0.0-0.7) Basophils # (Auto) 0.0 x10^3/uL (0.0-0.2) Sodium Level 136 mmol/L (136-145) Potassium Level 5.7 mmol/L (3.5-5.1) Chloride Level 96 mmol/L (98-107) Carbon Dioxide Level 28 mmol/L (21-32) Anion Gap 12 (6-14) Blood Urea Nitrogen 40 mg/dL (8-26) Creatinine 9.7 mg/dL (0.7-1.3) Estimated GFR (Cockcroft-Gault) 7.3 Glucose Level 162 mg/dL (70-99) Calcium Level 7.6 mg/dL (8.5-10.1) Ionized Calcium 0.89 mmol/L (1.13-1.32) Test 06/20/20 12:33 Glucose (Fingerstick) 174 mg/dL (70-99) Laboratory Tests Test 06/19/20 16:55 06/19/20 20:03 06/19/20 21:37 06/20/20 00:24 White Blood Count 8.9 x10^3/uL (4.0-11.0) Red Blood Count 3.48 x10^6/uL (4.30-5.70) Hemoglobin 11.3 g/dL (13.0-17.5) Hematocrit 33.6 % (39.0-53.0) Mean Corpuscular Volume 97 fL (79-100) Mean Corpuscular Hemoglobin 32 pg (25-35) Mean Corpuscular Hemoglobin Concent 34 g/dL (31-37) Red Cell Distribution Width 15.4 % (11.5-14.5) Platelet Count 312 x10^3/uL (140-400) Neutrophils (%) (Auto) 72 % (31-73) Lymphocytes (%) (Auto) 14 % (24-48) Monocytes (%) (Auto) 10 % (0-9) Eosinophils (%) (Auto) 3 % (0-3) Basophils (%) (Auto) 1 % (0-3) Neutrophils # (Auto) 6.4 x10^3/uL (1.8-7.7) Lymphocytes # (Auto) 1.3 x10^3/uL (1.0-4.8) Monocytes # (Auto) 0.9 x10^3/uL (0.0-1.1) Eosinophils # (Auto) 0.3 x10^3/uL (0.0-0.7) Basophils # (Auto) 0.1 x10^3/uL (0.0-0.2) Sodium Level 141 mmol/L (136-145) Potassium Level 7.2 mmol/L (3.5-5.1) Chloride Level 103 mmol/L (98-107) Carbon Dioxide Level 27 mmol/L (21-32) Anion Gap 11 (6-14) Blood Urea Nitrogen 76 mg/dL (8-26) Creatinine 14.1 mg/dL (0.7-1.3) Estimated GFR (Cockcroft-Gault) 4.7 BUN/Creatinine Ratio 5 (6-20) Glucose Level 108 mg/dL (70-99) Calcium Level 5.7 mg/dL (8.5-10.1) Ionized Calcium 0.66 mmol/L (1.13-1.32) Phosphorus Level 3.8 mg/dL (2.6-4.7) Magnesium Level 2.3 mg/dL (1.8-2.4) Total Bilirubin 0.3 mg/dL (0.2-1.0) Aspartate Amino Transf (AST/SGOT) 18 U/L (15-37) Alanine Aminotransferase (ALT/SGPT) 22 U/L (16-63) Alkaline Phosphatase 205 U/L (46-116) Total Protein 7.2 g/dL (6.4-8.2) Albumin 3.5 g/dL (3.4-5.0) Albumin/Globulin Ratio 0.9 (1.0-1.7) Glucose (Fingerstick) 72 mg/dL (70-99) 108 mg/dL (70-99) 143 mg/dL (70-99) Test 06/20/20 02:27 06/20/20 05:27 06/20/20 08:16 06/20/20 08:25 Glucose (Fingerstick) 168 mg/dL (70-99) 302 mg/dL (70-99) 166 mg/dL (70-99) White Blood Count 7.6 x10^3/uL (4.0-11.0) Red Blood Count 3.92 x10^6/uL (4.30-5.70) Hemoglobin 12.6 g/dL (13.0-17.5) Hematocrit 37.7 % (39.0-53.0) Mean Corpuscular Volume 96 fL (79-100) Mean Corpuscular Hemoglobin 32 pg (25-35) Mean Corpuscular Hemoglobin Concent 33 g/dL (31-37) Red Cell Distribution Width 15.3 % (11.5-14.5) Platelet Count 315 x10^3/uL (140-400) Neutrophils (%) (Auto) 75 % (31-73) Lymphocytes (%) (Auto) 14 % (24-48) Monocytes (%) (Auto) 8 % (0-9) Eosinophils (%) (Auto) 3 % (0-3) Basophils (%) (Auto) 1 % (0-3) Neutrophils # (Auto) 5.7 x10^3/uL (1.8-7.7) Lymphocytes # (Auto) 1.0 x10^3/uL (1.0-4.8) Monocytes # (Auto) 0.6 x10^3/uL (0.0-1.1) Eosinophils # (Auto) 0.2 x10^3/uL (0.0-0.7) Basophils # (Auto) 0.0 x10^3/uL (0.0-0.2) Sodium Level 136 mmol/L (136-145) Potassium Level 5.7 mmol/L (3.5-5.1) Chloride Level 96 mmol/L (98-107) Carbon Dioxide Level 28 mmol/L (21-32) Anion Gap 12 (6-14) Blood Urea Nitrogen 40 mg/dL (8-26) Creatinine 9.7 mg/dL (0.7-1.3) Estimated GFR (Cockcroft-Gault) 7.3 Glucose Level 162 mg/dL (70-99) Calcium Level 7.6 mg/dL (8.5-10.1) Ionized Calcium 0.89 mmol/L (1.13-1.32) Test 06/20/20 12:33 Glucose (Fingerstick) 174 mg/dL (70-99) Brief Hospital Course Mr. Jacques is a 40 old male who presented with electrolyte disturbances as a consequence of his end-stage renal disease. He was found to have hyperkalemia which was treated in the emergency department with calcium gluconate and insulin. The patient also received supplementation of calcium given that his calcium level was quite low. He failed to fill his prescription for calcium that was provided for him in the outpatient setting after his levels were checked on Saturday. He received dialysis today and his electrolyte disturbances seem to have resolved. No further disturbances reported reported by the patient and he was in good spirits to be discharged home today. He received dialysis this morning signs and symptoms of concern when to seek medical attention were discussed with the patient prior to discharge he acknowledged understanding of all the instructions Physical exam Lungs clear to auscultation with good inspiratory effort Cardiovascular S1-S2 regular rhythm no murmurs gallops or rubs Discharge Information Condition at Discharge: Improved Follow Up: Weeks Disposition/Orders: D/C to Home Scheduled Atorvastatin Calcium (Atorvastatin Calcium) 10 Mg Tablet, 10 MG PO HS for FOR CHOLESTEROL, #30 Ref 0 (Reported) Entered as Reported by: YEIMY DEMPSEY on 04/28/20 1450 Calcium Carbonate/Vitamin D3 (Calcium 500 + Vit D 200 Caplet) 1 Each Tablet, 2 TAB PO TID for hypocalcemia for 30 Days, #180 Ref 0 Prescribed by: ROSEMARY RIVERA MD on 05/10/20 1142 Cholecalciferol (Vitamin D3) (Vitamin D) 5,000 Unit Tablet, 5,000 UNIT PO DAILY, (Reported) Entered as Reported by: David Alba on 12/21/17 1114 Cinacalcet Hcl (Sensipar) 60 Mg Tablet, 90 MG PO DAILY for secondary hyperparathyroidism, (Reported) Entered as Reported by: David Alba on 12/21/17 1114 Furosemide (Furosemide) 80 Mg Tablet, 1 TAB PO TID for end stage kidney disease, #180 Ref 3 (Reported) Entered as Reported by: David Alba on 12/21/17 1114 Insulin Aspart (Novolog) 100 Unit/1 Ml Vial, 12 UNIT SQ TIDAC for diabetes, (Reported) sliding scale Entered as Reported by: SUKH HERNÁNDEZ on 04/15/17 1604 Insulin Glargine,Hum.rec.anlog (Lantus Solostar) 100 Unit/1 Ml Insuln.pen, 20 UNIT SQ HS for hyperglycemia, (Reported) Entered as Reported by: SUKH HERNÁNDZE on 04/15/17 1604 Pantoprazole Sodium (Protonix) 20 Mg Tablet.dr, 2 TAB PO DAILY for GERD, #30 (Re ported) Entered as Reported by: ASHLEY ROWELL on 11/30/18 0024 Vit B Cmplx 3/Fa/Vit C/Biotin (Johanna-Celia Rx Tablet) 1 Each Tablet, 1 EACH PO DAILY, (Reported) Entered as Reported by: David Alba on 12/21/17 1114 [auryxia] , 630 MG PO TIDAC for control serumphosphorus/anemia, (Reported) Entered as Reported by: YEIMY DEMPSEY on 04/28/20 1449 Scheduled PRN Polyethylene Glycol 3350 (Miralax) 17 Gm Powd.pack, 1 PACKET PO PRN PRN for CONSTIPATION for 2 Days, Ref 0 (Reported) dissolve in water Entered as Reported by: YEIMY DEMPSEY on 04/28/20 1451 Justicifation of Admission Dx: Justifications for Admission: Justification of Admission Dx: Yes Chronic Renal Failure: Electrolyte Abnormality ACOSTA OSPINA MD Jun 20, 2020 14:04
--- NOTE | 2020-06-20 14:24 | NUR ---
Discharge Note: WILFRED STEVENS [facility] Discharge instructions and discharge home medications reviewed with Patient and a copy given. All questions have been answered and understanding verbalized. The following instructions and handouts were given: Hyperkalemia Discontinued IV line Patient discharged to home with self care via private vehicle
--- NOTE | 2020-06-20 19:17 | CONS ---
DATE OF CONSULTATION: 06/20/2020 NEPHROLOGY NOTE REQUESTING PHYSICIAN: Hospitalist. REASON FOR CONSULTATION: Renal failure. HISTORY OF PRESENT ILLNESS: This is a 40-year-old gentleman with history of end-stage renal disease for which he is hemodialysis dependent in the setting of diabetes mellitus and hypertension. The patient presented to the hospital Emergency Department with tingling. He is found to have BUN 76, creatinine 14.1, potassium 7.2, and calcium 5.7. The patient was admitted and underwent emergent dialysis and also a second dialysis treatment. His calcium improved to 7.6. Prior to being seen by this physician, the patient was discharged to home. Plan is to follow up with his outpatient dialysis facility. ORQUIDEA TOPETE MD DR: ARNEL/kiet JOB#: [id number] / [id number]
--- NOTE | 2020-06-21 15:40 | EKG ---
[facility] [address] [place] [address] Test Date: 2020-06-19 Test Time: 16:42:54 Pat Name: WILFRED STEVENS Department: Room: Gender: M [employer]: : 1980 Requested By: ORQUIDEA TENORIO Order Number: [id number] Reading MD: Measurements Intervals Swan Rate: 103 P: 68 WV: 184 QRS: -10 QRSD: 78 T: 42 QT: 390 QTc: 513 Interpretive Statements SINUS TACHYCARDIA VENTRICULAR PREMATURE COMPLEX(ES) INTERPOLATED VENTRICULAR PREMATURE COMPLEX(ES) ATRIAL PREMATURE COMPLEX(ES) S1,S2,S3 PATTERN ABNORMAL ECG RI6.02 No previous ECG available for comparison
== END 2020-06-20 14:31 | disposition home or self-care (01) | DRG 640 ==
LOC: ER 15:24 → 2 SOUTH 19:14
PROVIDERS: ADMIT Family Medicine; ATTEND Family Medicine
PROC: 5A1D70Z Performance of Urinary Filtration, Intermittent, Less than 6 Hours Per Day (ICD-10-PCS; principal; 2020-06-19)
PROC: 5A1D70Z Performance of Urinary Filtration, Intermittent, Less than 6 Hours Per Day (ICD-10-PCS; 2020-06-20)
DX: E87.5 Hyperkalemia (principal); N18.6 End stage renal disease; I12.0 Hypertensive chronic kidney disease with stage 5 chronic kidney disease or end stage renal disease; E10.22 Type 1 diabetes mellitus with diabetic chronic kidney disease; E21.3 Hyperparathyroidism, unspecified; E78.5 Hyperlipidemia, unspecified; G62.9 Polyneuropathy, unspecified; Z79.4 Long term (current) use of insulin; Z82.49 Family history of ischemic heart disease and other diseases of the circulatory system; Z99.2 Dependence on renal dialysis; Z88.0 Allergy status to penicillin; Z88.8 Allergy status to other drugs, medicaments and biological substances; Z91.010 Allergy to peanuts
CPT/HCPCS: 36415; 80048; 80053; 82310; 82962; 83735; 84100; 85025; 93005; 96374; 96375; 99291; J0610; J1815; G0378